=== PATIENT | female | born 1950 | race African-American/Black ===

== ENCOUNTER 2018-04-04 06:13 | Inpatient (IN) | payer OTHER ==
[2018-04-04] MEDS ORDERED: SODIUM CHLORIDE 1,361 ML IV ONE (06:30)
--- NOTE | 2018-04-04 06:31 | PDOC ---
Attending Attestation - Resident Resident Name: Lupillo Roberts - HPI HPI: 04/07/18 18:44 Pt presents to the ED after brought in by family for altered mental status. Patient was in her usual state of health until yesterday, when she began to become increasingly confused, initially wandering around naked and then becoming lethargic and less responsive. Daughter found her to be unresponsive this AM and called EMS. Found to be hypogylcemic to 29 by EMS. Given glucagon and D 10. Mental status improved on arrival--patient was oriented to person and place, and able to recognize her family members and to answer simple questions. Patient still sleeping most of the time, but easily arousable to loud voice. + hypoxia and rhonchorous lung sounds on exam. - Physicial Exam PE: 04/07/18 18:58 Agree with resident exam. PAtient is arousable to loud voice. + rhonchorous breath sounds. Hypoxic to 80s on room air, but not hypotensive. - Medical Decision Making 04/09/18 17:00 pt presents to the ED with altered mental status, hypoxia and hypoglycemia. Differential includes PNA, sepsis, intracranial lesion, metabolic derrangement. Will check labs and CT head, start IV hydration, check blood cx and lactate and admit for continued work up.
--- NOTE | 2018-04-04 06:35 | PDOC ---
History of Present Illness - General Chief Complaint: Altered Mental Status Stated Complaint: AMS Time Seen by Provider: 04/04/18 06:30 - History of Present Illness Initial Comments: 04/04/18 07:03 67F with pmh of HIV, asthma and chronic pain presents with family for altered mental status worsening over the past 2 days. She was found by family to behave increasingly erratically, walking naked in the leaving room, etc... Found by ems to be hypoxic, have fingerstick of 29, given 1g glucagon and 1L of D10, repeat fs of 89. 100% on NR, mid 80's on room air. Patient was originally unresponsive but now arousable to pain. Eventually woke Told family she may have taken a pill shes not supposed to take anymore amongst her current meds. Unknown CD4 level. Not on any diebetic medications. Hasn't eaten or drank anything today. Patient looks uncomfortable and diaphoretic 04/04/18 07:40 Past History - Past Medical History Allergies/Adverse Reactions: Allergies Allergy/AdvReac Type Severity Reaction Status Date / Time aspirin AdvReac Mild GI upset Verified 04/04/18 06:25 Asthma: Yes Cardiac Disorders: Yes - Surgical History Cardiac Surgery: Yes (CABG x 2 2009) - Suicide/Smoking/Psychosocial Hx Smoking History: Unknown if ever smoked Have you smoked in the past 12 months: No Number of Cigarettes Smoked Daily: 20 Information on smoking cessation initiated: No 'Breaking Loose' booklet given: 06/01/12 Hx Alcohol Use: No Drug/Substance Use Hx: No Substance Use Type: Alcohol, Cocaine Hx Substance Use Treatment: Yes Review of Systems - Review of Systems Able to Perform ROS?: No (ams) *Physical Exam - Vital Signs Last Vital Signs Temp Pulse Resp BP Pulse Ox 98.9 F 105 H 15 164/101 H 97 04/04/18 06:15 04/04/18 06:15 04/04/18 06:15 04/04/18 06:15 04/04/18 06:15 - Physical Exam General Appearance: Yes: Disheveled, Cachetic HEENT: positive: Other (miosis) Respiratory/Chest: positive: Lungs Clear, Rales, Rhonchi. negative: Chest Tender Vascular Pulses: Dorsalis-Pedis (R): 2+, Doralis-Pedis (L): 2+ Gastrointestinal/Abdominal: positive: Normal Bowel Sounds, Flat, Soft. negative : Tender Musculoskeletal: positive: Normal Inspection. negative: CVA Tenderness Extremity: positive: Normal Capillary Refill, Normal Inspection Integumentary: positive: Normal Color, Dry, Warm, Diaphoresis Neurologic: positive: Respond to painful stimul, Confused, Disoriented ED Treatment Course - LABORATORY CBC & Chemistry Diagram: 04/04/18 06:45 04/04/18 06:28 Medical Decision Making - Medical Decision Making 04/04/18 07:31 Hypoglycemia vs PNA vs Opiates overdose vs encephalitis vs seizure vs stroke Although the patient is afebrile her adventitious lung sounds may be an indication of pneumonia, possible aspiration given her altered state. In the context of diaphoresis and altered mental status and her potentially immunocompromised state we will order a full septic workup as well as ABG and CXR. In addition we will order a head CT to rule out intracranial processes, bleeds or ring enhancing lesions. If the patient continues to deteriorate we will consider doing an lumbar puncture to rule out encephalitis. In the meantime we will work on obtaining a full list of the patient's medications and what she could have potentially taken. We will also get frequent fingerstick test. Will treat dyspnea with duonebs. Patient signed out to Dr. Gill for continued care. 04/04/18 07:40 *DC/Admit/Observation/Transfer Diagnosis at time of Disposition: Delirium, Altered mental status - Discharge Dispostion Condition at time of disposition: Fair - Referrals - Patient Instructions - Post Discharge Activity
[2018-04-04] MEDS ORDERED: methylPREDNISolone NA SUCC 125 MG/2 ML VIAL IVPUSH ONE (06:50)
[2018-04-04] MEDS ORDERED: methylPREDNISolone NA SUCC 125 MG/2 ML VIAL ONE (06:57)
[2018-04-04] MEDS ORDERED: ALBUTEROL SO4 2.5/IPRATROPIUM 0.5 INH SOL 3 ML VIAL.NEB. NEB ONE (06:57)
[2018-04-04] MEDS: ALBUTEROL SO4 2.5/IPRATROPIUM 0.5 INH SOL 3 ML VIAL.NEB. NEB SCH ×5 (07:10→21:30)
[2018-04-04 07:12] LABS: ARTERIAL BLD GAS O2 SATURATION 97.7 % (90-98.9); CARBOXYHEMOGLOBIN 2.1 gm% (0.5-2.0)
[2018-04-04 07:23] LABS: BASO % 0.2 % (0-2.0); EOS % 0.2 % (0-4.5); HEMATOCRIT 41.5 % (32.4-45.2); HEMOGLOBIN 13.4 GM/dL (10.7-15.3); LYMPH % 6.8 % (8-40); MCH 31.5 pg (25.7-33.7); MCHC 32.3 g/dl (32.0-36.0); MEAN CELL VOLUME 97.6 fl (80-96); MEAN PLT VOLUME 7.5 fl (7.5-11.1); MONO % 12.7 % (3.8-10.2); NEUT % 80.1 % (42.8-82.8); PLATELET COUNT 244 K/MM3 (134-434); RBC 4.25 M/mm3 (3.60-5.2); RDW 14.2 % (11.6-15.6); WHITE BLOOD COUNT 18.6 K/mm3 (4.0-10.0)
[2018-04-04 07:24] LABS: ALLENS TEST POSITIVE
[2018-04-04 07:26] LABS: ARTERIAL BLOOD GAS PCO2 73.4 mmHg (35-45)
[2018-04-04 07:27] LABS: ARTERIAL BLOOD GAS pH 7.23 (7.35-7.45)
[2018-04-04 07:35] LABS: INR 2.53 (0.83-1.09); PROTHROMBIN TIME (PATIENT) 30.1 SEC (9.7-13.0)
[2018-04-04 07:38] LABS: ACTIVATED PTT 35.4 SECONDS (25.2-36.5)
[2018-04-04 07:59] LABS: ALBUMIN 3.9 g/dl (3.4-5.0); ALK PHOS 77 U/L (45-117); ANION GAP 15 MMOL/L (8-16); BILIRUBIN,TOTAL 3.3 mg/dL (0.2-1); BLOOD UREA NITROGEN 62 mg/dL (7-18); CALCIUM 8.8 mg/dL (8.5-10.1); CHLORIDE 95 mmol/L (98-107); CO2 28 mmol/L (21-32); CREATININE 3.8 mg/dL (0.55-1.3); GLUCOSE,RANDOM 114 mg/dL (74-106); POTASSIUM 5.7 mmol/L (3.5-5.1); SGOT/AST 221 U/L (15-37); SGPT/ALT 66 U/L (13-61); SODIUM 138 mmol/L (136-145); TOT PROT 7.1 g/dl (6.4-8.2)
[2018-04-04 08:10] LABS: URINE APPEARANCE SLCLOUDY; URINE BILIRUBIN NEGATIVE (<2.0 mg/dL); URINE GLUCOSE (UA) NEGATIVE (NEGATIVE); URINE KETONE NEGATIVE (NEGATIVE); URINE LEUK ESTERASE NEGATIVE (NEGATIVE); URINE NITRITE NEGATIVE (NEGATIVE); URINE PROTEIN 2+ (NEGATIVE); URINE UROBILINOGEN 4.0 E.U/dl mg/dL (0.2-1.0)
[2018-04-04 08:13] LABS: URINE COLOR DK YELLOW
[2018-04-04] MEDS ORDERED: PIPERACILLIN/TAZOB 3.375 GM 3.375 GM in DEXTROSE 5%-WATER - 50 ML IVPB ONE (08:17)
[2018-04-04] MEDS ORDERED: VANCOMYCIN 1 GM PREMIX - 1 GM/200 ML BAG IVPB ONE (08:17)
[2018-04-04] MEDS ORDERED: SODIUM CHLORIDE 0.9% 1000 ML INFUS.BAG IV ONE (08:19)
[2018-04-04] MEDS ORDERED: VANCOMYCIN 1 GRAM (PRE-DOCKED) 1,000 MG/250 ML BAG IVPB ONE (08:25)
[2018-04-04] MEDS ORDERED: PIPERACILLIN/TAZOB 3.375 GM 3.375 GM/50 ML BAG IVPB ONE (08:25)
[2018-04-04 08:27] LABS: EPI CELLS MODERATE /HPF (FEW); URINE BACTERIA RARE /hpf (NONE SEEN); URINE HYALINE CAST 157 /lpf; URINE MUCUS RARE
[2018-04-04 08:36] LABS: COCAINE, UR NEGATIVE ng/ml (CUTOFF=300); METHADONE, UR NEGATIVE ng/ml (CUTOFF=300); PHENCYCLIDINE,URINE NEGATIVE ng/ml (CUTOFF=25); URINE AMPHETAMINES NEGATIVE ng/ml (CUTOFF=500); URINE BARBITURATES NEGATIVE ng/ml (CUTOFF=200); URINE BENZODIAZEPINES NEGATIVE ng/ml (CUTOFF=200)
--- NOTE | 2018-04-04 08:41 | PDOC ---
*Physical Exam - Vital Signs Last Vital Signs Temp Pulse Resp BP Pulse Ox 98.6 F 105 H 15 164/101 H 97 04/04/18 06:30 04/04/18 06:15 04/04/18 06:15 04/04/18 06:15 04/04/18 06:15 - Physical Exam Comments: 04/04/18 08:31 I received sign out from Dr. Roberts ED Treatment Course - LABORATORY CBC & Chemistry Diagram: 04/06/18 05:30 04/06/18 06:00 - ADDITIONAL ORDERS Additional order review: Laboratory Results 04/04/18 04/04/18 04/04/18 07:55 07:55 07:05 PT with INR INR PTT (Actin FS) Anticoagulation Therapy No Result Required. Puncture Site No Result Required. ABG pH 7.23 L* ABG pCO2 at Pt Temp 73.4 H* ABG pO2 at Pt Temp 135.0 H ABG HCO3 29.3 H ABG O2 Sat (Measured) 97.7 ABG O2 Content 18.0 ABG Base Excess 0.0 Trevor Test Positive Carboxyhemoglobin 2.1 H Methemoglobin 0.6 O2 Delivery Device No Result Required. Oxygen Flow Rate No Result Required. Vent Mode No Result Required. Vent Rate No Result Required. Mechanical Rate No Result Required. Pressure Support Vent No Result Required. Sodium Potassium Chloride Carbon Dioxide Anion Gap BUN Creatinine Creat Clearance w eGFR POC Glucometer Random Glucose Lactic Acid Calcium Total Bilirubin AST ALT Alkaline Phosphatase Ammonia Creatine Kinase Creatine Kinase Index CK-MB (CK-2) Troponin I Total Protein Albumin Urine Color Dk yellow Urine Appearance Slcloudy Urine pH 5.0 Ur Specific Bradshaw 1.015 Urine Protein 2+ H Urine Glucose (UA) Negative Urine Ketones Negative Urine Blood 2+ H Urine Nitrite Negative Urine Bilirubin Negative Urine Urobilinogen 4.0 e.u/dl H Ur Leukocyte Esterase Negative Urine WBC (Auto) 5 Urine RBC (Auto) 2 Ur Epithelial Cells Moderate Urine Bacteria Rare Hyaline Casts 157 Urine Mucus Rare Stool Occult Blood Positive 04/04/18 04/04/18 04/04/18 06:45 06:45 06:45 PT with INR 30.10 H INR 2.53 H PTT (Actin FS) 35.4 Anticoagulation Therapy Puncture Site ABG pH ABG pCO2 at Pt Temp ABG pO2 at Pt Temp ABG HCO3 ABG O2 Sat (Measured) ABG O2 Content ABG Base Excess Trevor Test Carboxyhemoglobin Methemoglobin O2 Delivery Device Oxygen Flow Rate Vent Mode Vent Rate Mechanical Rate Pressure Support Vent Sodium Potassium Chloride Carbon Dioxide Anion Gap BUN Creatinine Creat Clearance w eGFR POC Glucometer Random Glucose Lactic Acid 6.2 H* Calcium Total Bilirubin AST ALT Alkaline Phosphatase Ammonia 48.10 H Creatine Kinase Creatine Kinase Index CK-MB (CK-2) Troponin I Total Protein Albumin Urine Color Urine Appearance Urine pH Ur Specific Bradshaw Urine Protein Urine Glucose (UA) Urine Ketones Urine Blood Urine Nitrite Urine Bilirubin Urine Urobilinogen Ur Leukocyte Esterase Urine WBC (Auto) Urine RBC (Auto) Ur Epithelial Cells Urine Bacteria Hyaline Casts Urine Mucus Stool Occult Blood 04/04/18 04/04/18 06:28 06:28 PT with INR INR PTT (Actin FS) Anticoagulation Therapy Puncture Site ABG pH ABG pCO2 at Pt Temp ABG pO2 at Pt Temp ABG HCO3 ABG O2 Sat (Measured) ABG O2 Content ABG Base Excess Trevor Test Carboxyhemoglobin Methemoglobin O2 Delivery Device Oxygen Flow Rate Vent Mode Vent Rate Mechanical Rate Pressure Support Vent Sodium 138 Potassium 5.7 H Chloride 95 L Carbon Dioxide 28 Anion Gap 15 BUN 62 H Creatinine 3.8 H Creat Clearance w eGFR 11.85 POC Glucometer 135.57180 Random Glucose 114 H Lactic Acid Calcium 8.8 Total Bilirubin 3.3 H AST 221 H ALT 66 H Alkaline Phosphatase 77 Ammonia Creatine Kinase 1260 H Creatine Kinase Index 1.1 CK-MB (CK-2) 14.1 H Troponin I 3.25 H* Total Protein 7.1 Albumin 3.9 Urine Color Urine Appearance Urine pH Ur Specific Bradshaw Urine Protein Urine Glucose (UA) Urine Ketones Urine Blood Urine Nitrite Urine Bilirubin Urine Urobilinogen Ur Leukocyte Esterase Urine WBC (Auto) Urine RBC (Auto) Ur Epithelial Cells Urine Bacteria Hyaline Casts Urine Mucus Stool Occult Blood 04/04/18 04/04/18 06:45 06:28 RBC 4.25 MCV 97.6 H MCHC 32.3 RDW 14.2 MPV 7.5 Neutrophils % 80.1 Lymphocytes % 6.8 L Monocytes % 12.7 H Eosinophils % 0.2 Basophils % 0.2 POC Glucometer 135.34908 - RADIOLOGY Radiology Studies Ordered: Category Date Time Status ABDOMEN & PELVIS CT W/O CONTR [CT] Stat CT Scan 04/04/18 08:[address] WITHOUT CONTRAST [CT] Stat CT Scan 04/04/18 08:29 Ordered ABDOMEN US -LIMITED [US] Stat Ultrasound 04/04/18 08:29 Ordered - Medications Given in the ED: ED Medications Discontinued Medications Generic Name Dose Route Start Last Admin Trade Name Musa PRN Reason Stop Dose Admin Albuterol/Ipratropium 1 amp 04/04/18 07:00 04/04/18 07:40 Duoneb - NEB 04/04/18 07:46 1 amp Q15M ALYSON Administration Sodium Chloride 1,361 mls @ 680.5 mls/hr 04/04/18 06:30 04/04/18 06:45 Normal Saline - 30 ml/kg infuse over 2 hr (1361 ml) 04/04/18 08:29 680.5 mls/hr IV Administration ONCE ONE Methylprednisolone Sodium Succinate 125 mg 04/04/18 06:50 04/04/18 07:00 Solu-Medrol - IVPUSH 04/04/18 06:51 125 mg ONCE ONE Administration Sodium Chloride 2,000 ml 04/04/18 08:19 04/04/18 08:24 Normal Saline - IV 04/04/18 08:20 2,000 ml ONCE ONE Administration Medical Decision Making - Medical Decision Making 04/04/18 08:58 67 yo F with hx of HIV, asthma, and chronic pain BIBA presenting with AMS for 2 days. Initial vitals: Initial Vital Signs Temp Pulse Resp BP Pulse Ox 98.9 F 105 H 15 164/101 H 97 04/04/18 06:15 04/04/18 06:15 04/04/18 06:15 04/04/18 06:15 04/04/18 06:15 Labs/Imaging: Laboratory Tests 04/04/18 04/04/18 04/04/18 06:28 06:28 06:45 WBC 18.6 H RBC 4.25 Hgb 13.4 Hct 41.5 MCV 97.6 H MCH 31.5 MCHC 32.3 RDW 14.2 Plt Count 244 MPV 7.5 Absolute Neuts (auto) 14.9 H Neutrophils % 80.1 Lymphocytes % 6.8 L Monocytes % 12.7 H Eosinophils % 0.2 Basophils % 0.2 Nucleated RBC % 1 H PT with INR INR PTT (Actin FS) Anticoagulation Therapy Puncture Site ABG pH ABG pCO2 at Pt Temp ABG pO2 at Pt Temp ABG HCO3 ABG O2 Sat (Measured) ABG O2 Content ABG Base Excess Trevor Test Carboxyhemoglobin Methemoglobin O2 Delivery Device Oxygen Flow Rate Vent Mode Vent Rate Mechanical Rate Pressure Support Vent Sodium 138 Potassium 5.7 H Chloride 95 L Carbon Dioxide 28 Anion Gap 15 BUN 62 H Creatinine 3.8 H Creat Clearance w eGFR 11.85 POC Glucometer 135.62450 Random Glucose 114 H Lactic Acid Calcium 8.8 Total Bilirubin 3.3 H AST 221 H ALT 66 H Alkaline Phosphatase 77 Ammonia Creatine Kinase 1260 H Creatine Kinase Index 1.1 CK-MB (CK-2) 14.1 H Troponin I 3.25 H* Total Protein 7.1 Albumin 3.9 Urine Color Urine Appearance Urine pH Ur Specific Bradshaw Urine Protein Urine Glucose (UA) Urine Ketones Urine Blood Urine Nitrite Urine Bilirubin Urine Urobilinogen Ur Leukocyte Esterase Urine WBC (Auto) Urine RBC (Auto) Ur Epithelial Cells Urine Bacteria Hyaline Casts Urine Mucus Stool Occult Blood Methadone Screen Barbiturate Screen Phencyclidine Screen Ur Amphetamines Screen MDMA (Ecstasy) Screen Benzodiazepines Screen Cocaine Screen U Marijuana (THC) Screen Influenza A (Rapid) Influenza B (Rapid) Blood Type Antibody Screen 04/04/18 04/04/18 04/04/18 06:45 06:45 06:45 WBC RBC Hgb Hct MCV MCH MCHC RDW Plt Count MPV Absolute Neuts (auto) Neutrophils % Lymphocytes % Monocytes % Eosinophils % Basophils % Nucleated RBC % PT with INR 30.10 H INR 2.53 H PTT (Actin FS) 35.4 Anticoagulation Therapy Puncture Site ABG pH ABG pCO2 at Pt Temp ABG pO2 at Pt Temp ABG HCO3 ABG O2 Sat (Measured) ABG O2 Content ABG Base Excess Trevor Test Carboxyhemoglobin Methemoglobin O2 Delivery Device Oxygen Flow Rate Vent Mode Vent Rate Mechanical Rate Pressure Support Vent Sodium Potassium Chloride Carbon Dioxide Anion Gap BUN Creatinine Creat Clearance w eGFR POC Glucometer Random Glucose Lactic Acid Calcium Total Bilirubin AST ALT Alkaline Phosphatase Ammonia 48.10 H Creatine Kinase Creatine Kinase Index CK-MB (CK-2) Troponin I Total Protein Albumin Urine Color Urine Appearance Urine pH Ur Specific Bradshaw Urine Protein Urine Glucose (UA) Urine Ketones Urine Blood Urine Nitrite Urine Bilirubin Urine Urobilinogen Ur Leukocyte Esterase Urine WBC (Auto) Urine RBC (Auto) Ur Epithelial Cells Urine Bacteria Hyaline Casts Urine Mucus Stool Occult Blood Methadone Screen Barbiturate Screen Phencyclidine Screen Ur Amphetamines Screen MDMA (Ecstasy) Screen Benzodiazepines Screen Cocaine Screen U Marijuana (THC) Screen Influenza A (Rapid) Influenza B (Rapid) Blood Type O POSITIVE Antibody Screen Negative 04/04/18 04/04/18 04/04/18 06:45 07:05 07:55 WBC RBC Hgb Hct MCV MCH MCHC RDW Plt Count MPV Absolute Neuts (auto) Neutrophils % Lymphocytes % Monocytes % Eosinophils % Basophils % Nucleated RBC % PT with INR INR PTT (Actin FS) Anticoagulation Therapy No Result Required. Puncture Site No Result Required. ABG pH 7.23 L* ABG pCO2 at Pt Temp 73.4 H* ABG pO2 at Pt Temp 135.0 H ABG HCO3 29.3 H ABG O2 Sat (Measured) 97.7 ABG O2 Content 18.0 ABG Base Excess 0.0 Trevor Test Positive Carboxyhemoglobin 2.1 H Methemoglobin 0.6 O2 Delivery Device No Result Required. Oxygen Flow Rate No Result Required. Vent Mode No Result Required. Vent Rate No Result Required. Mechanical Rate No Result Required. Pressure Support Vent No Result Required. Sodium Potassium Chloride Carbon Dioxide Anion Gap BUN Creatinine Creat Clearance w eGFR POC Glucometer Random Glucose Lactic Acid 6.2 H* Calcium Total Bilirubin AST ALT Alkaline Phosphatase Ammonia Creatine Kinase Creatine Kinase Index CK-MB (CK-2) Troponin I Total Protein Albumin Urine Color Dk yellow Urine Appearance Slcloudy Urine pH 5.0 Ur Specific Bradshaw 1.015 Urine Protein 2+ H Urine Glucose (UA) Negative Urine Ketones Negative Urine Blood 2+ H Urine Nitrite Negative Urine Bilirubin Negative Urine Urobilinogen 4.0 e.u/dl H Ur Leukocyte Esterase Negative Urine WBC (Auto) 5 Urine RBC (Auto) 2 Ur Epithelial Cells Moderate Urine Bacteria Rare Hyaline Casts 157 Urine Mucus Rare Stool Occult Blood Methadone Screen Barbiturate Screen Phencyclidine Screen Ur Amphetamines Screen MDMA (Ecstasy) Screen Benzodiazepines Screen Cocaine Screen U Marijuana (THC) Screen Influenza A (Rapid) Influenza B (Rapid) Blood Type Antibody Screen 04/04/18 04/04/18 04/04/18 07:55 07:55 08:06 WBC RBC Hgb Hct MCV MCH MCHC RDW Plt Count MPV Absolute Neuts (auto) Neutrophils % Lymphocytes % Monocytes % Eosinophils % Basophils % Nucleated RBC % PT with INR INR PTT (Actin FS) Anticoagulation Therapy Puncture Site ABG pH ABG pCO2 at Pt Temp ABG pO2 at Pt Temp ABG HCO3 ABG O2 Sat (Measured) ABG O2 Content ABG Base Excess Trevor Test Carboxyhemoglobin Methemoglobin O2 Delivery Device Oxygen Flow Rate Vent Mode Vent Rate Mechanical Rate Pressure Support Vent Sodium Potassium Chloride Carbon Dioxide Anion Gap BUN Creatinine Creat Clearance w eGFR POC Glucometer 164.21968 Random Glucose Lactic Acid Calcium Total Bilirubin AST ALT Alkaline Phosphatase Ammonia Creatine Kinase Creatine Kinase Index CK-MB (CK-2) Troponin I Total Protein Albumin Urine Color Urine Appearance Urine pH Ur Specific Bradshaw Urine Protein Urine Glucose (UA) Urine Ketones Urine Blood Urine Nitrite Urine Bilirubin Urine Urobilinogen Ur Leukocyte Esterase Urine WBC (Auto) Urine RBC (Auto) Ur Epithelial Cells Urine Bacteria Hyaline Casts Urine Mucus Stool Occult Blood Positive Methadone Screen Negative Barbiturate Screen Negative Phencyclidine Screen Negative Ur Amphetamines Screen Negative MDMA (Ecstasy) Screen Negative Benzodiazepines Screen Negative Cocaine Screen Negative U Marijuana (THC) Screen Negative Influenza A (Rapid) Influenza B (Rapid) Blood Type Antibody Screen 04/04/18 08:15 WBC RBC Hgb Hct MCV MCH MCHC RDW Plt Count MPV Absolute Neuts (auto) Neutrophils % Lymphocytes % Monocytes % Eosinophils % Basophils % Nucleated RBC % PT with INR INR PTT (Actin FS) Anticoagulation Therapy Puncture Site ABG pH ABG pCO2 at Pt Temp ABG pO2 at Pt Temp ABG HCO3 ABG O2 Sat (Measured) ABG O2 Content ABG Base Excess Trevor Test Carboxyhemoglobin Methemoglobin O2 Delivery Device Oxygen Flow Rate Vent Mode Vent Rate Mechanical Rate Pressure Support Vent Sodium Potassium Chloride Carbon Dioxide Anion Gap BUN Creatinine Creat Clearance w eGFR POC Glucometer Random Glucose Lactic Acid Calcium Total Bilirubin AST ALT Alkaline Phosphatase Ammonia Creatine Kinase Creatine Kinase Index CK-MB (CK-2) Troponin I Total Protein Albumin Urine Color Urine Appearance Urine pH Ur Specific Bradshaw Urine Protein Urine Glucose (UA) Urine Ketones Urine Blood Urine Nitrite Urine Bilirubin Urine Urobilinogen Ur Leukocyte Esterase Urine WBC (Auto) Urine RBC (Auto) Ur Epithelial Cells Urine Bacteria Hyaline Casts Urine Mucus Stool Occult Blood Methadone Screen Barbiturate Screen Phencyclidine Screen Ur Amphetamines Screen MDMA (Ecstasy) Screen Benzodiazepines Screen Cocaine Screen U Marijuana (THC) Screen Influenza A (Rapid) Negative Influenza B (Rapid) Negative Blood Type Antibody Screen Patient was received as a sign out. Labs came back after sign out and are stipulated above. These results were reviewed with the admitting physician (Dr. Kirk) and ICU team. The patient will be admitted to the ICU. We ordered vanc/ zosyn treating for sepsis. We ordered CT abd/pelvis and chest wo con. Dispo: Admit *DC/Admit/Observation/Transfer Diagnosis at time of Disposition: Delirium Altered mental status Qualifiers: Altered mental status type: disorientation Qualified Code(s): R41.0 - Disorientation, unspecified - Discharge Dispostion Condition at time of disposition: Fair - Referrals - Patient Instructions - Post Discharge Activity
[2018-04-04 09:17] LABS: OPIATES, URI POSITIVE ng/ml (CUTOFF=300)
[2018-04-04] MEDS ORDERED: LIDOCAINE HCL 2% (20ML MULTI-DOSE VIAL) NR ONE (10:35)
--- NOTE | 2018-04-04 10:53 | EKG ---
Test Reason : Blood Pressure : / mmHG Vent. Rate : 109 BPM Atrial Rate : 109 BPM P-R Int : 196 ms QRS Dur : 100 ms QT Int : 354 ms P-R-T Axes : 074 -14 220 degrees QTc Int : 476 ms SINUS TACHYCARDIA POSSIBLE LEFT ATRIAL ENLARGEMENT SEPTAL INFARCT , AGE UNDETERMINED ABNORMAL ECG WHEN COMPARED WITH ECG OF 03-AUG-2007 12:55, VENT. RATE HAS INCREASED T WAVE VARIATION Confirmed by SEAN JARRELL, FERNANDA ([id number]) on 04/04/2018 10:53:10 AM Referred By: Confirmed By:FERNANDA ESTRADA MD
--- NOTE | 2018-04-04 11:41 | CON.CARD ---
Consult Consult Specialty:: Cardiology Referred by:: Marquis Kirk MD Reason for Consultation:: Demand ischemia - History of Present Illness Chief Complaint: Altered mental status History of Present Illness: 67F with pmh of HIV, asthma and chronic pain presents with family for altered mental status worsening over the past 2 days with erratic behavior, walking naked in the leaving room, found by ems to be hypoxic, have fingerstick of 29, given 1g glucagon and 1L of D10, repeat fs of 89. 100% on NR, mid 80's on room air. Patient was originally unresponsive but now arousable to pain. ABG shows acute hypercapneic, hypoxemic respiratory failure, told family she may have taken a pill shes not supposed to take anymore amongst her current meds. Unknown CD4 level or compliance, placed on bipap. - History Source History Provided By: Medical Record Limitations to Obtaining History: Clinical Condition - Alcohol/Substance Use Hx Alcohol Use: No - Smoking History Smoking history: Unknown if ever smoked Have you smoked in the past 12 months: No Aproximately how many cigarettes per day: 20 Home Medications - Allergies Allergies/Adverse Reactions: Allergies Allergy/AdvReac Type Severity Reaction Status Date / Time aspirin AdvReac Mild GI upset Verified 04/04/18 06:25 - Home Medications Home Medications: Ambulatory Orders Gabapentin [Neurontin -] 800 mg PO Q8H 04/04/18 Morphine *Sr* [Ms Contin -] 30 mg PO Q8H 04/04/18 Ranolazine [Ranexa -] 500 mg PO BID 04/04/18 Review of Systems - Review of Systems Constitutional: reports: Lethargy Neurological: reports: Confusion Vital Signs: Vital Signs Temperature 98.6 F 04/04/18 06:30 Pulse Rate 99 H 04/04/18 11:39 Respiratory Rate 14 04/04/18 11:39 Blood Pressure 137/80 04/04/18 11:39 O2 Sat by Pulse Oximetry (%) 99 04/04/18 11:39 Constitutional: Yes: No Distress, Calm Neck: Yes: Supple Respiratory: Yes: Regular, Diminished, On BiPap Gastrointestinal: Yes: Soft, Hypoactive Bowel Sounds Cardiovascular: Yes: Regular Rate and Rhythm JVD: No Carotid Bruit: No Heart Sounds: Yes: S1, S2 Edema: No - Other Data Labs, Other Data: CBC, BMP 04/04/18 06:28 INR, PTT INR 2.53 (0.83-1.09) H 04/04/18 06:45 Troponin, BNP 04/04/18 06:28 Troponin I 3.25 H* Troponin, BNP 04/04/18 06:28 Troponin I 3.25 H* ST @ 109 LAE IVCD with anterolateral TWI Imaging - Results Chest X-ray: Report Reviewed (NaD) Cat Scan: Report Reviewed (HCT: Negative Chest CT: RLL PNA) Ultrasound: Report Reviewed (Cholethiasis, right medical renal dz, trace ascites , fatty liver) Problem List - Problems (1) Acute kidney injury Code(s): N17.9 - ACUTE KIDNEY FAILURE, UNSPECIFIED (2) Demand ischemia Code(s): I24.8 - OTHER FORMS OF ACUTE ISCHEMIC HEART DISEASE (3) Acute hypercapnic respiratory failure Code(s): J96.02 - ACUTE RESPIRATORY FAILURE WITH HYPERCAPNIA (4) Altered mental status Code(s): R41.82 - ALTERED MENTAL STATUS, UNSPECIFIED Qualifiers: Altered mental status type: disorientation Qualified Code(s): R41.0 - Disorientation, unspecified (6) Aspiration pneumonia Code(s): J69.0 - PNEUMONITIS DUE TO INHALATION OF FOOD AND VOMIT Qualifiers: Aspiration pneumonia type: unspecified Laterality: right Lung location: lower lobe of lung Qualified Code(s): J69.0 - Pneumonitis due to inhalation of food and vomit (7) Toxic metabolic encephalopathy Code(s): G92 - TOXIC ENCEPHALOPATHY Assessment/Plan 1. Altered mental status - toxic metabolic encephelopathy 2. Acute hypercapneic/hypoxemix respiratory failure, opiates on tox screen 3. RLL PNA, possible aspiration 4. HIV unknown compliance on HAART 5. Acute kidney injury with hyperkalemia 6. Microalbuminuria P:1. BD, empiric abx, O2 and bipap as needed, IVF with monitor renal recovery and electrolytes 2. Trend trops to document peak 3. Echo to assess ventricular and valve fxn, review old records regarding reason for Ranexa 4. Thank you for consultative opportunity
--- NOTE | 2018-04-04 11:47 | CON.ID ---
Consult Consult Specialty:: infectious diseases Referred by:: Reason for Consultation:: ams,hiv,resp failure - History of Present Illness Chief Complaint: ams History of Present Illness: 67F with pmh of HIV, asthma and chronic pain presents with family for altered mental status worsening over the past 2 days with erratic behavior, walking naked in the leaving room, found by ems to be hypoxic, have fingerstick of 29, given 1g glucagon and 1L of D10, repeat fs of 89. 100% on NR, mid 80's on room air. Patient was originally unresponsive but now arousable to pain. ABG shows acute hypercapneic, hypoxemic respiratory failure, told family she may have taken a pill shes not supposed to take anymore amongst her current meds. Unknown CD4 level or compliance, placed on bipap. patients daughter in the room who has given the history currently patient slightly better but still with ams - History Source History Provided By: Family Member, Medical Record Limitations to Obtaining History: Clinical Condition - Alcohol/Substance Use Hx Alcohol Use: No - Smoking History Smoking history: Unknown if ever smoked Have you smoked in the past 12 months: No Aproximately how many cigarettes per day: 20 Home Medications - Allergies Allergies/Adverse Reactions: Allergies Allergy/AdvReac Type Severity Reaction Status Date / Time aspirin AdvReac Mild GI upset Verified 04/04/18 06:25 - Home Medications Home Medications: Ambulatory Orders Gabapentin [Neurontin -] 800 mg PO Q8H 04/04/18 Morphine *Sr* [Ms Contin -] 30 mg PO Q8H 04/04/18 Ranolazine [Ranexa -] 500 mg PO BID 04/04/18 Abacavir/Dolutegravir/Lamivudi [Triumeq Tablet] 1 each PO DAILY 04/05/18 Albuterol Sulfate Inhaler - [Ventolin Hfa Inhaler -] 2 inh PO DAILY 04/05/18 Alendronate Sodium/Vitamin D3 [Fosamax Plus D 70 mg-5,600 Iu vIT d] 1 each PO Q7D 04/05/18 Calcium Carbonate/Vitamin D3 [Calcium 500-Vit D3 200 Caplet] 1 tab PO DAILY Clopidogrel Bisulfate [Plavix] 75 mg PO DAILY 04/05/18 Escitalopram Oxalate [Lexapro -] 10 mg PO DAILY 04/05/18 Fluticasone/Salmeterol [Advair Hfa 230-21 Mcg Inhaler] 2 puff IH BID 04/05/18 Multivitamin [One Daily] 1 each PO DAILY 04/05/18 Nicotine [Nicotrol Ns] 1 dose IH DAILY PRN 04/05/18 Pantoprazole Sodium [Protonix -] 20 mg PO DAILY 04/05/18 RX: Aspirin Coated [Ecotrin -] 81 mg PO DAILY 04/05/18 RX: Gabapentin 800 mg PO TID 04/05/18 RX: Morphine Sulfate 30 mg PO Q8H PRN 04/05/18 RX: Simvastatin 10 mg PO DAILY 04/05/18 Review of Systems Unable to obtain ROS, reason: unable to obtain Physical Exam Vital Signs: Vital Signs Temperature 98.6 F 04/04/18 06:30 Pulse Rate 99 H 04/04/18 11:39 Respiratory Rate 14 04/04/18 11:39 Blood Pressure 137/80 04/04/18 11:39 O2 Sat by Pulse Oximetry (%) 99 04/04/18 11:39 Constitutional: Yes: Other Cardiovascular: Yes: Regular Rate and Rhythm Respiratory: Yes: On BiPap, Poor Air Entry Gastrointestinal: Yes: Normal Bowel Sounds, Soft Musculoskeletal: Yes: WNL Extremities: Yes: WNL Neurological: Yes: Other (ams) Psychiatric: Yes: Other Labs: CBC, BMP 04/04/18 06:28 Imaging - Results Chest X-ray: Report Reviewed, Image Reviewed Cat Scan: Report Reviewed, Image Reviewed Ultrasound: Report Reviewed, Image Reviewed Assessment/Plan Problem List - Problems (1) Acute kidney injury Code(s): N17.9 - ACUTE KIDNEY FAILURE, UNSPECIFIED (2) Demand ischemia Code(s): I24.8 - OTHER FORMS OF ACUTE ISCHEMIC HEART DISEASE (3) Acute hypercapnic respiratory failure Code(s): J96.02 - ACUTE RESPIRATORY FAILURE WITH HYPERCAPNIA (4) Altered mental status Code(s): R41.82 - ALTERED MENTAL STATUS, UNSPECIFIED Qualifiers: Altered mental status type: disorientation Qualified Code(s): R41.0 - Disorientation, unspecified (6) Aspiration pneumonia Code(s): J69.0 - PNEUMONITIS DUE TO INHALATION OF FOOD AND VOMIT Qualifiers: Aspiration pneumonia type: unspecified Laterality: right Lung location: lower lobe of lung Qualified Code(s): J69.0 - Pneumonitis due to inhalation of food and vomit (7) Toxic metabolic encephalopathy Code(s): G92 - TOXIC ENCEPHALOPATHY Assessment/Plan 1. Altered mental status - toxic metabolic encephelopathy 2. Acute hypercapneic/hypoxemix respiratory failure, opiates on tox screen 3. RLL PNA, possible aspiration 4. HIV unknown compliance on HAART 5. Acute kidney injury with hyperkalemia 6. Microalbuminuria will start patient on broad spectrum abx continue resp support icu mgmt close watch await for all work up discussed wiht daughter in detail aspiration precautions rest as per icu/primary team cc 50 min
[2018-04-04 14:30] LABS: LDH 842 U/L (84-246)
--- NOTE | 2018-04-04 15:06 | CONSULT ---
Consultation: REQUESTING PROVIDER: CONSULT REQUEST: We have been asked to medically evaluate this patient for sepsis 2/2 pneumonia with AMS. HISTORY OF PRESENT ILLNESS: 67F w/ pmhx of HIV (currently on HIV meds), asthma, chronic pain, HTN, CABG x3 stents, anemia, COPD, uterine cx presented to the ED with worsening altered mental status over the past 2 days. Per daughter at 4am this morning, pt was found in her bed, rigid, with both legs flexed, body shaking, and mouth filled with white secretions. EMS was called in which the pt was found to have a fingerstick glucose of 29 after which she was subsequently given 1g of Glucagon and 1L of D10 in the ambulance. Repeat fasting sugar was 89 after treatment. She was put on nonrebreather with sats at 100%. In the ED, pt was seen diaphoretic, but alert and oriented according to daughter, which was improved mental status prior to arrival. Per daughter, pt's last meal was Wednesday evening. Denies taking any diabetic meds. At baseline, pt lives alone at home in [place] and performs ADLs independently. She does have a [employer] who is present for several hours in the morning and afternoon. Pt is being monitored in the ICU for acute hypoxic respiratory failure with AMS. ED course: HR 103, WBC 18.6, K 5.7, Lactate 6.2 > 2.5, trops 3.25 Zosyn 2.25gm given. Lumbar punctures attempted multiple times in the ED, but unsuccessfully. Per report, tap will need to be done by IR. BCx, UCx ordered. Imaging studies done: CXR showed cardiomegaly; no evidence of CHF, pulmonary infiltrates, PTX, or large pleural effusion. Head CT showed no evidence of acute IC hemorrhage, edema, midline shift, mass effect, or skull fracture. No CT evidence of acute territorial infarction. Chronic R sphenoid sinus disease. CTAP/CT chest: Limited Extensive chronic lung dz w/ possible acute consolidation within the R lower lobe; Cardiomegaly, b/l nephrolithiasis w/o evidence of obstructive uropathy. Abd U/S: Trace ascites, and suspected fatty infiltration of the liver; cholelithiasis. Somewhat echogenic R kidney suspicious for medical renal dz. ECHO: LV systolic fxn is low normal. EF 50-55%. RV mildly dilated, RA mild to mod dilated, mild mitral annular calcification, mild MR, mod to severe TR, PA systolic pressure is at least 45 mmHg assuming RA pressure of 3 mmHg. Mild aortic sclerosis. No AR is present. No pericardial effusion. 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 PHYSICAL EXAMINATION Vital Signs - 24 hr 04/04/18 04/04/18 04/04/18 06:15 06:30 09:30 Temperature 98.9 F 98.6 F Pulse Rate 105 H Pulse Rate [ 56 L Apical] Respiratory 15 14 Rate Blood Pressure 164/101 H Blood Pressure 147/92 [Right Arm] O2 Sat by Pulse 97 98 Oximetry (%) 04/04/18 04/04/18 04/04/18 10:24 10:29 11:39 Temperature Pulse Rate 103 H 102 H Pulse Rate [ 103 H 99 H Apical] Respiratory 13 14 Rate Blood Pressure Blood Pressure 145/91 137/80 [Right Arm] O2 Sat by Pulse 100 100 99 Oximetry (%) 04/04/18 12:15 Temperature 99.5 F Pulse Rate Pulse Rate [ Apical] Respiratory Rate Blood Pressure Blood Pressure [Right Arm] O2 Sat by Pulse Oximetry (%) GENERAL: Lethargic. On nonrebreather. Alert and oriented to name. Closes eyes and does not respond while being questioned, although arousable to voice. HEENT: Normal with no signs of trauma. KEHINDE. Unable to assess EOM. Dry mucus membranes. NECK: Supple. LUNGS: Diminished breath sounds b/l. Symmetric chest rise. HEART: RRR. Normal S1, S2. No murmurs noted. ABDOMEN: Soft, NT/ND. +BS in all 4Qs. MUSCULOSKELETAL: No peripheral edema noted. NEUROLOGICAL: Responds to commands (opens eyes, squeezes fingers, plantarflex and dorsiflexes feet) SKIN: surgical scar in inner thigh of R leg. Laboratory Results - last 24 hr 04/04/18 04/04/18 04/04/18 06:28 06:28 06:45 WBC 18.6 H RBC 4.25 Hgb 13.4 Hct 41.5 MCV 97.6 H MCH 31.5 MCHC 32.3 RDW 14.2 Plt Count 244 MPV 7.5 Absolute Neuts (auto) 14.9 H Neutrophils % 80.1 Lymphocytes % 6.8 L Monocytes % 12.7 H Eosinophils % 0.2 Basophils % 0.2 Nucleated RBC % 1 H PT with INR INR PTT (Actin FS) Anticoagulation Therapy Puncture Site ABG pH ABG pCO2 at Pt Temp ABG pO2 at Pt Temp ABG HCO3 ABG O2 Sat (Measured) ABG O2 Content ABG Base Excess Trevor Test Carboxyhemoglobin Methemoglobin O2 Delivery Device Oxygen Flow Rate Vent Mode Vent Rate Mechanical Rate Pressure Support Vent Sodium 138 Potassium 5.7 H Chloride 95 L Carbon Dioxide 28 Anion Gap 15 BUN 62 H Creatinine 3.8 H Creat Clearance w eGFR 11.85 POC Glucometer 135.66853 Random Glucose 114 H Lactic Acid Calcium 8.8 Total Bilirubin 3.3 H AST 221 H ALT 66 H Alkaline Phosphatase 77 Ammonia LD Total Creatine Kinase 1260 H Creatine Kinase Index 1.1 CK-MB (CK-2) 14.1 H Troponin I 3.25 H* Total Protein 7.1 Albumin 3.9 Urine Color Urine Appearance Urine pH Ur Specific [place] Urine Protein Urine Glucose (UA) Urine Ketones Urine Blood Urine Nitrite Urine Bilirubin Urine Urobilinogen Ur Leukocyte Esterase Urine WBC (Auto) Urine RBC (Auto) Ur Epithelial Cells Urine Bacteria Hyaline Casts Urine Mucus Stool Occult Blood Salicylates 1.7 L Opiates Screen Methadone Screen Acetaminophen < 2.0 L Barbiturate Screen Phencyclidine Screen Ur Amphetamines Screen MDMA (Ecstasy) Screen Benzodiazepines Screen Cocaine Screen U Marijuana (THC) Screen Alcohol, Quantitative Influenza A (Rapid) Influenza B (Rapid) Blood Type Antibody Screen 04/04/18 04/04/18 04/04/18 06:45 06:45 06:45 WBC RBC Hgb Hct MCV MCH MCHC RDW Plt Count MPV Absolute Neuts (auto) Neutrophils % Lymphocytes % Monocytes % Eosinophils % Basophils % Nucleated RBC % PT with INR 30.10 H INR 2.53 H PTT (Actin FS) 35.4 Anticoagulation Therapy Puncture Site ABG pH ABG pCO2 at Pt Temp ABG pO2 at Pt Temp ABG HCO3 ABG O2 Sat (Measured) ABG O2 Content ABG Base Excess Trevor Test Carboxyhemoglobin Methemoglobin O2 Delivery Device Oxygen Flow Rate Vent Mode Vent Rate Mechanical Rate Pressure Support Vent Sodium Potassium Chloride Carbon Dioxide Anion Gap BUN Creatinine Creat Clearance w eGFR POC Glucometer Random Glucose Lactic Acid Calcium Total Bilirubin AST ALT Alkaline Phosphatase Ammonia 48.10 H LD Total Creatine Kinase Creatine Kinase Index CK-MB (CK-2) Troponin I Total Protein Albumin Urine Color Urine Appearance Urine pH Ur Specific [place] Urine Protein Urine Glucose (UA) Urine Ketones Urine Blood Urine Nitrite Urine Bilirubin Urine Urobilinogen Ur Leukocyte Esterase Urine WBC (Auto) Urine RBC (Auto) Ur Epithelial Cells Urine Bacteria Hyaline Casts Urine Mucus Stool Occult Blood Salicylates Opiates Screen Methadone Screen Acetaminophen Barbiturate Screen Phencyclidine Screen Ur Amphetamines Screen MDMA (Ecstasy) Screen Benzodiazepines Screen Cocaine Screen U Marijuana (THC) Screen Alcohol, Quantitative Influenza A (Rapid) Influenza B (Rapid) Blood Type O POSITIVE Antibody Screen Negative 04/04/18 04/04/18 04/04/18 06:45 07:05 07:55 WBC RBC Hgb Hct MCV MCH MCHC RDW Plt Count MPV Absolute Neuts (auto) Neutrophils % Lymphocytes % Monocytes % Eosinophils % Basophils % Nucleated RBC % PT with INR INR PTT (Actin FS) Anticoagulation Therapy No Result Required. Puncture Site No Result Required. ABG pH 7.23 L* ABG pCO2 at Pt Temp 73.4 H* ABG pO2 at Pt Temp 135.0 H ABG HCO3 29.3 H ABG O2 Sat (Measured) 97.7 ABG O2 Content 18.0 ABG Base Excess 0.0 Trevor Test Positive Carboxyhemoglobin 2.1 H Methemoglobin 0.6 O2 Delivery Device No Result Required. Oxygen Flow Rate No Result Required. Vent Mode No Result Required. Vent Rate No Result Required. Mechanical Rate No Result Required. Pressure Support Vent No Result Required. Sodium Potassium Chloride Carbon Dioxide Anion Gap BUN Creatinine Creat Clearance w eGFR POC Glucometer Random Glucose Lactic Acid 6.2 H* Calcium Total Bilirubin AST ALT Alkaline Phosphatase Ammonia LD Total Creatine Kinase Creatine Kinase Index CK-MB (CK-2) Troponin I Total Protein Albumin Urine Color Dk yellow Urine Appearance Slcloudy Urine pH 5.0 Ur Specific [place] 1.015 Urine Protein 2+ H Urine Glucose (UA) Negative Urine Ketones Negative Urine Blood 2+ H Urine Nitrite Negative Urine Bilirubin Negative Urine Urobilinogen 4.0 e.u/dl H Ur Leukocyte Esterase Negative Urine WBC (Auto) 5 Urine RBC (Auto) 2 Ur Epithelial Cells Moderate Urine Bacteria Rare Hyaline Casts 157 Urine Mucus Rare Stool Occult Blood Salicylates Opiates Screen Methadone Screen Acetaminophen Barbiturate Screen Phencyclidine Screen Ur Amphetamines Screen MDMA (Ecstasy) Screen Benzodiazepines Screen Cocaine Screen U Marijuana (THC) Screen Alcohol, Quantitative Influenza A (Rapid) Influenza B (Rapid) Blood Type Antibody Screen 04/04/18 04/04/18 04/04/18 07:55 07:55 08:06 WBC RBC Hgb Hct MCV MCH MCHC RDW Plt Count MPV Absolute Neuts (auto) Neutrophils % Lymphocytes % Monocytes % Eosinophils % Basophils % Nucleated RBC % PT with INR INR PTT (Actin FS) Anticoagulation Therapy Puncture Site ABG pH ABG pCO2 at Pt Temp ABG pO2 at Pt Temp ABG HCO3 ABG O2 Sat (Measured) ABG O2 Content ABG Base Excess Trevor Test Carboxyhemoglobin Methemoglobin O2 Delivery Device Oxygen Flow Rate Vent Mode Vent Rate Mechanical Rate Pressure Support Vent Sodium Potassium Chloride Carbon Dioxide Anion Gap BUN Creatinine Creat Clearance w eGFR POC Glucometer 164.84343 Random Glucose Lactic Acid Calcium Total Bilirubin AST ALT Alkaline Phosphatase Ammonia LD Total Creatine Kinase Creatine Kinase Index CK-MB (CK-2) Troponin I Total Protein Albumin Urine Color Urine Appearance Urine pH Ur Specific [place] Urine Protein Urine Glucose (UA) Urine Ketones Urine Blood Urine Nitrite Urine Bilirubin Urine Urobilinogen Ur Leukocyte Esterase Urine WBC (Auto) Urine RBC (Auto) Ur Epithelial Cells Urine Bacteria Hyaline Casts Urine Mucus Stool Occult Blood Positive Salicylates Opiates Screen Positive A* Methadone Screen Negative Acetaminophen Barbiturate Screen Negative Phencyclidine Screen Negative Ur Amphetamines Screen Negative MDMA (Ecstasy) Screen Negative Benzodiazepines Screen Negative Cocaine Screen Negative U Marijuana (THC) Screen Negative Alcohol, Quantitative Influenza A (Rapid) Influenza B (Rapid) Blood Type Antibody Screen 04/04/18 04/04/18 04/04/18 08:15 08:48 13:20 WBC RBC Hgb Hct MCV MCH MCHC RDW Plt Count MPV Absolute Neuts (auto) Neutrophils % Lymphocytes % Monocytes % Eosinophils % Basophils % Nucleated RBC % PT with INR INR PTT (Actin FS) Anticoagulation Therapy Puncture Site ABG pH ABG pCO2 at Pt Temp ABG pO2 at Pt Temp ABG HCO3 ABG O2 Sat (Measured) ABG O2 Content ABG Base Excess Trevor Test Carboxyhemoglobin Methemoglobin O2 Delivery Device Oxygen Flow Rate Vent Mode Vent Rate Mechanical Rate Pressure Support Vent Sodium Potassium Chloride Carbon Dioxide Anion Gap BUN Creatinine Creat Clearance w eGFR POC Glucometer Random Glucose Lactic Acid 2.5 H* Calcium Total Bilirubin AST ALT Alkaline Phosphatase Ammonia LD Total Cancelled Creatine Kinase Creatine Kinase Index CK-MB (CK-2) Troponin I Total Protein Albumin Urine Color Urine Appearance Urine pH Ur Specific [place] Urine Protein Urine Glucose (UA) Urine Ketones Urine Blood Urine Nitrite Urine Bilirubin Urine Urobilinogen Ur Leukocyte Esterase Urine WBC (Auto) Urine RBC (Auto) Ur Epithelial Cells Urine Bacteria Hyaline Casts Urine Mucus Stool Occult Blood Salicylates Opiates Screen Methadone Screen Acetaminophen Barbiturate Screen Phencyclidine Screen Ur Amphetamines Screen MDMA (Ecstasy) Screen Benzodiazepines Screen Cocaine Screen U Marijuana (THC) Screen Alcohol, Quantitative Influenza A (Rapid) Negative Influenza B (Rapid) Negative Blood Type Antibody Screen 04/04/18 13:20 WBC RBC Hgb Hct MCV MCH MCHC RDW Plt Count MPV Absolute Neuts (auto) Neutrophils % Lymphocytes % Monocytes % Eosinophils % Basophils % Nucleated RBC % PT with INR INR PTT (Actin FS) Anticoagulation Therapy Puncture Site ABG pH ABG pCO2 at Pt Temp ABG pO2 at Pt Temp ABG HCO3 ABG O2 Sat (Measured) ABG O2 Content ABG Base Excess Trevor Test Carboxyhemoglobin Methemoglobin O2 Delivery Device Oxygen Flow Rate Vent Mode Vent Rate Mechanical Rate Pressure Support Vent Sodium Potassium Chloride Carbon Dioxide Anion Gap BUN Creatinine Creat Clearance w eGFR POC Glucometer Random Glucose Lactic Acid Calcium Total Bilirubin AST ALT Alkaline Phosphatase Ammonia LD Total 842 H Creatine Kinase Creatine Kinase Index CK-MB (CK-2) Troponin I Total Protein Albumin Urine Color Urine Appearance Urine pH Ur Specific [place] Urine Protein Urine Glucose (UA) Urine Ketones Urine Blood Urine Nitrite Urine Bilirubin Urine Urobilinogen Ur Leukocyte Esterase Urine WBC (Auto) Urine RBC (Auto) Ur Epithelial Cells Urine Bacteria Hyaline Casts Urine Mucus Stool Occult Blood Salicylates Opiates Screen Methadone Screen Acetaminophen Barbiturate Screen Phencyclidine Screen Ur Amphetamines Screen MDMA (Ecstasy) Screen Benzodiazepines Screen Cocaine Screen U Marijuana (THC) Screen Alcohol, Quantitative < 3.0 Influenza A (Rapid) Influenza B (Rapid) Blood Type Antibody Screen Active Medications Generic Name Dose Route Start Last Admin Trade Name Freq PRN Reason Stop Dose Admin Piperacillin Sod/Tazobactam 50 mls @ 100 mls/hr 11/26/18 18:00 Sod 2.25 gm/ Dextrose IVPB Q8H-IV ALYSON Protocol ASSESSMENT/PLAN: 67F w/ pmhx of of HIV, asthma, and chronic pain who presented to the ED with worsening AMS x2 days admitted for AMS 2/2 hypoglycemia/seizure/encephalitis/ stroke/opiate overdose. Neurology -Lethargic, oriented to person, but difficult to obtain further responses. -Unsuccessful spinal tap done in ED, IR consulted -Neuro checks Q4H -Pt currently on Morphine 30 Q8H at home; AMS may be due to overdose, Utox + opiates. -Pt found to have fingerstick glucose at 26 prior to arrival; hypoglycemia could be cause of AMS, however pt not taking any diabetic meds. BGMs Q4H to avoid further hypoglycemic episodes. Cardiology #Elevated troponins -Trops 3.25 -Repeat trops ordered Pulmonary #Acute hypercapneic/hypoxemic respiratory failure -AB.23/73.4/135/29.3 -currently on Bipap, satting at 100% -Cont to monitor on Bipap #? Aspiration PNA -Given IV Vanc and Zosyn -ID recs GI #Transaminitis -Pt not currently complaining of abd pain. -AST/ALT 221/66, Alk P 77 -CTAP showed cholelithiasis. -FOBT (+), although Hgb is stable at 13.4. Renal #Hyperkalemia -repeat EKG. -Cont to monitor. ID #Sepsis 2/2 possible aspiration pna -empiric IV Zosyn 2.25gm given -ID consult ordered; Influenza screen neg; follow up BCx, UCx -recheck CBC in AM -Lac 6.2 > 2.5 -NS @100 #HIV -Currently on HIV meds at home, needs med rec from daughter -CD4/CD8/CD3 Ct ordered Prophylaxis DVT: Heparin 5000U SQ TID FEN -NS @ 75 -recheck lytes in AM, replete PRN -hold feeds for now due to AMS Dispo: We will continue to follow the patient. Thank you for this consultative opportunity. Visit type - Emergency Visit Emergency Visit: Yes ED Registration Date: 04/04/18 Care time: The patient presented to the Emergency Department on the above date and was hospitalized for further evaluation of their emergent condition. - New Patient This patient is new to me today: Yes Date on this admission: 04/05/18 - Critical Care Critical Care patient: Yes Total Critical Care Time (in minutes): 40 Critical Care Statement: The care of this patient involved high complexity decision making to prevent further life threatening deterioration of the patient 's condition and/or to evaluate & treat vital organ system(s) failure or risk of failure.
--- NOTE | 2018-04-04 16:07 | ECHO ---
Name: ANDERSON GONSALEZ Exam:Adult Echocardiogram Study Date: 04/04/2018 01:35 PM Age: 67 yrs Reason For Study: DEMAND ISCHEMIA Height: 68 in Weight: 100 lb BSA: 1.5 m2 MMode/2D Measurements & Calculations IVSd: 1.1 cm Ao root diam: 3.6 cm LVIDd: 4.6 cm LA dimension: 3.5 cm LVIDs: 3.7 cm LVPWd: 0.89 cm EDV(Teich): 97.7 ml ESV(Teich): 58.6 ml Doppler Measurements & Calculations MV E max jose: 45.4 cm/sec Ao V2 max: 139.0 cm/sec MV A max jose: 75.0 cm/sec Ao max P.7 mmHg MV E/A: 0.61 LV V1 max P.1 mmHg MR max jose: 301.2 cm/sec LV V1 max: 101.2 cm/sec MR max P.5 mmHg TR max jose: 263.4 cm/sec Med Peak E' Jose: 5.3 cm/sec TR max P.8 mmHg Med E/e': 8.6 Lat Peak E' Jose: 8.4 cm/sec Lat E/e': 5.4 Procedure A complete two-dimensional transthoracic echocardiogram was performed (2D, M-mode, Doppler and color flow Doppler). Left Ventricle The left ventricle is normal in size. Left ventricular systolic function is low normal. Ejection Frac tion = 50-55%. TDI reveals mildly impaired relaxation with normal filling pressure (E/E' 8). There is basal posterolateral wall mild hypokinesis. There is proximal mid posteriolateral wall mild hypokinesis. Th ere are regional wall motion abnormalities as specified. Right Ventricle The right ventricle is mildly dilated. RV systolic TDI is 8 cm/s suggests mildly reduced RV systolic function. Atria The left atrial size is normal. The right atrium is mild to moderately dilated. Mitral Valve There is mild mitral annular calcification. There is mild mitral regurgitation. Tricuspid Valve The tricuspid valve is normal in structure and function. There is moderate to severe tricuspid regurg itation. Pulmonary artery systolic pressure is at least 45 mmHg assuming RA pressure of 3 mmHg. Aortic Valve There is mild aortic sclerosis.;. No aortic regurgitation is present. Pulmonic Valve The pulmonic valve is not well visualized. Great Vessels The aortic root is normal size. Pericardium/Pleura There is no pericardial effusion. Interpretation Summary The left ventricle is normal in size. Left ventricular systolic function is low normal. Ejection Fraction = 50-55%. There are regional wall motion abnormalities as specified. TDI reveals mildly impaired relaxation with normal filling pressure (E/E' 8) RV systolic TDI is 8 cm/s suggests mildly reduced RV systolic function The right ventricle is mildly dilated. The right atrium is mild to moderately dilated. The left atrial size is normal. There is mild mitral annular calcification. There is mild mitral regurgitation. There is moderate to severe tricuspid regurgitation. Pulmonary artery systolic pressure is at least 45 mmHg assuming RA pressure of 3 mmHg There is mild aortic sclerosis.; No aortic regurgitation is present. There is no pericardial effusion. Previous study is not available for comparison Chato Beltran MD 04/04/2018 04:07 PM
--- NOTE | 2018-04-04 17:31 | HP ---
Admitting History and Physical - Primary Care Physician PCP: Marquis Kirk - Admission History of Present Illness: 67F with pmh of HIV, asthma and chronic pain presents with family for altered mental status worsening over the past 2 days with erratic behavior, walking naked in the leaving room, found by ems to be hypoxic, have fingerstick of 29, given 1g glucagon and 1L of D10, repeat fs of 89. 100% on NR, mid 80's on room air. Patient was originally unresponsive but now arousable to pain. ABG shows acute hypercapneic, hypoxemic respiratory failure, told family she may have taken a pill shes not supposed to take anymore amongst her current meds. Unknown CD4 level or compliance, placed on bipap. - Past Medical History Pulmonary: Yes: Asthma Infectious Disease: Yes: HIV - Smoking History Smoking history: Unknown if ever smoked Have you smoked in the past 12 months: No Aproximately how many cigarettes per day: 20 - Alcohol/Substance Use Hx Alcohol Use: No Home Medications - Allergies Allergies/Adverse Reactions: Allergies Allergy/AdvReac Type Severity Reaction Status Date / Time aspirin AdvReac Mild GI upset Verified 04/04/18 06:25 - Home Medications Home Medications: Ambulatory Orders Gabapentin [Neurontin -] 800 mg PO Q8H 04/04/18 Morphine *Sr* [Ms Contin -] 30 mg PO Q8H 04/04/18 Ranolazine [Ranexa -] 500 mg PO BID 04/04/18 Abacavir/Dolutegravir/Lamivudi [Triumeq Tablet] 1 each PO DAILY 04/05/18 Albuterol Sulfate Inhaler - [Ventolin Hfa Inhaler -] 2 inh PO DAILY 04/05/18 Alendronate Sodium/Vitamin D3 [Fosamax Plus D 70 mg-5,600 Iu vIT d] 1 each PO Q7D 04/05/18 Aspirin Coated [Ecotrin -] 81 mg PO DAILY 04/05/18 Calcium Carbonate/Vitamin D3 [Calcium 500-Vit D3 200 Caplet] 1 tab PO DAILY Clopidogrel Bisulfate [Plavix] 75 mg PO DAILY 04/05/18 Escitalopram Oxalate [Lexapro -] 10 mg PO DAILY 04/05/18 Fluticasone/Salmeterol [Advair Hfa 230-21 Mcg Inhaler] 2 puff IH BID 04/05/18 Gabapentin 800 mg PO TID 04/05/18 Morphine Sulfate 30 mg PO Q8H PRN 04/05/18 Multivitamin [One Daily] 1 each PO DAILY 04/05/18 Nicotine [Nicotrol Ns] 1 dose IH DAILY PRN 04/05/18 Pantoprazole Sodium [Protonix -] 20 mg PO DAILY 04/05/18 Simvastatin 10 mg PO DAILY 04/05/18 Physical Examination Vital Signs: Vital Signs Temperature 99.6 F 04/04/18 16:00 Pulse Rate 103 H 04/04/18 16:00 Respiratory Rate 14 04/04/18 16:00 Blood Pressure 140/94 04/04/18 16:00 O2 Sat by Pulse Oximetry (%) 97 04/04/18 16:38 Constitutional: Yes: Calm HENT: Yes: Atraumatic Neck: Yes: Supple Cardiovascular: Yes: Regular Rate and Rhythm Respiratory: Yes: Rhonchi Gastrointestinal: Yes: Normal Bowel Sounds Extremities: Yes: WNL Edema: No Peripheral Pulses WNL: Yes Neurological: Yes: Other (awake) Labs: CBC, BMP 04/04/18 06:28 Problem List - Problems (1) Acute hypercapnic respiratory failure Assessment/Plan: on face mask better now responding to her name Code(s): J96.02 - ACUTE RESPIRATORY FAILURE WITH HYPERCAPNIA (2) Acute kidney injury Assessment/Plan: iv hydration Code(s): N17.9 - ACUTE KIDNEY FAILURE, UNSPECIFIED (3) Altered mental status Code(s): R41.82 - ALTERED MENTAL STATUS, UNSPECIFIED Qualifiers: Altered mental status type: disorientation Qualified Code(s): R41.0 - Disorientation, unspecified (4) Aspiration pneumonia Code(s): J69.0 - PNEUMONITIS DUE TO INHALATION OF FOOD AND VOMIT Qualifiers: Aspiration pneumonia type: unspecified Laterality: right Lung location: lower lobe of lung Qualified Code(s): J69.0 - Pneumonitis due to inhalation of food and vomit (5) Asthma Code(s): J45.909 - UNSPECIFIED ASTHMA, UNCOMPLICATED (6) HIV Assessment/Plan: on meds (7) Neuropathy Code(s): G62.9 - POLYNEUROPATHY, UNSPECIFIED (8) Demand ischemia Assessment/Plan: follow up troponins Code(s): I24.8 - OTHER FORMS OF ACUTE ISCHEMIC HEART DISEASE Assessment/Plan Laboratory Tests 04/04/18 04/04/18 04/04/18 06:28 06:28 06:45 WBC 18.6 H RBC 4.25 Hgb 13.4 Hct 41.5 MCV 97.6 H MCH 31.5 MCHC 32.3 RDW 14.2 Plt Count 244 MPV 7.5 Absolute Neuts (auto) 14.9 H Neutrophils % 80.1 Lymphocytes % 6.8 L Monocytes % 12.7 H Eosinophils % 0.2 Basophils % 0.2 Nucleated RBC % 1 H PT with INR INR PTT (Actin FS) Anticoagulation Therapy Puncture Site ABG pH ABG pCO2 at Pt Temp ABG pO2 at Pt Temp ABG HCO3 ABG O2 Sat (Measured) ABG O2 Content ABG Base Excess Trevor Test Carboxyhemoglobin Methemoglobin O2 Delivery Device Oxygen Flow Rate Vent Mode Vent Rate Mechanical Rate Pressure Support Vent Sodium 138 Potassium 5.7 H Chloride 95 L Carbon Dioxide 28 Anion Gap 15 BUN 62 H Creatinine 3.8 H Creat Clearance w eGFR 11.85 POC Glucometer 135.30612 Random Glucose 114 H Lactic Acid Calcium 8.8 Total Bilirubin 3.3 H AST 221 H ALT 66 H Alkaline Phosphatase 77 Ammonia LD Total Creatine Kinase 1260 H Creatine Kinase Index 1.1 CK-MB (CK-2) 14.1 H Troponin I 3.25 H* Total Protein 7.1 Albumin 3.9 Urine Color Urine Appearance Urine pH Ur Specific Flushing Urine Protein Urine Glucose (UA) Urine Ketones Urine Blood Urine Nitrite Urine Bilirubin Urine Urobilinogen Ur Leukocyte Esterase Urine WBC (Auto) Urine RBC (Auto) Ur Epithelial Cells Urine Bacteria Hyaline Casts Urine Mucus Stool Occult Blood Salicylates 1.7 L Opiates Screen Methadone Screen Acetaminophen < 2.0 L Barbiturate Screen Phencyclidine Screen Ur Amphetamines Screen MDMA (Ecstasy) Screen Benzodiazepines Screen Cocaine Screen U Marijuana (THC) Screen Alcohol, Quantitative Influenza A (Rapid) Influenza B (Rapid) Blood Type Antibody Screen 04/04/18 04/04/18 04/04/18 06:45 06:45 06:45 WBC RBC Hgb Hct MCV MCH MCHC RDW Plt Count MPV Absolute Neuts (auto) Neutrophils % Lymphocytes % Monocytes % Eosinophils % Basophils % Nucleated RBC % PT with INR 30.10 H INR 2.53 H PTT (Actin FS) 35.4 Anticoagulation Therapy Puncture Site ABG pH ABG pCO2 at Pt Temp ABG pO2 at Pt Temp ABG HCO3 ABG O2 Sat (Measured) ABG O2 Content ABG Base Excess Trevor Test Carboxyhemoglobin Methemoglobin O2 Delivery Device Oxygen Flow Rate Vent Mode Vent Rate Mechanical Rate Pressure Support Vent Sodium Potassium Chloride Carbon Dioxide Anion Gap BUN Creatinine Creat Clearance w eGFR POC Glucometer Random Glucose Lactic Acid Calcium Total Bilirubin AST ALT Alkaline Phosphatase Ammonia 48.10 H LD Total Creatine Kinase Creatine Kinase Index CK-MB (CK-2) Troponin I Total Protein Albumin Urine Color Urine Appearance Urine pH Ur Specific Flushing Urine Protein Urine Glucose (UA) Urine Ketones Urine Blood Urine Nitrite Urine Bilirubin Urine Urobilinogen Ur Leukocyte Esterase Urine WBC (Auto) Urine RBC (Auto) Ur Epithelial Cells Urine Bacteria Hyaline Casts Urine Mucus Stool Occult Blood Salicylates Opiates Screen Methadone Screen Acetaminophen Barbiturate Screen Phencyclidine Screen Ur Amphetamines Screen MDMA (Ecstasy) Screen Benzodiazepines Screen Cocaine Screen U Marijuana (THC) Screen Alcohol, Quantitative Influenza A (Rapid) Influenza B (Rapid) Blood Type O POSITIVE Antibody Screen Negative 04/04/18 04/04/18 04/04/18 06:45 07:05 07:55 WBC RBC Hgb Hct MCV MCH MCHC RDW Plt Count MPV Absolute Neuts (auto) Neutrophils % Lymphocytes % Monocytes % Eosinophils % Basophils % Nucleated RBC % PT with INR INR PTT (Actin FS) Anticoagulation Therapy No Result Required. Puncture Site No Result Required. ABG pH 7.23 L* ABG pCO2 at Pt Temp 73.4 H* ABG pO2 at Pt Temp 135.0 H ABG HCO3 29.3 H ABG O2 Sat (Measured) 97.7 ABG O2 Content 18.0 ABG Base Excess 0.0 Trevor Test Positive Carboxyhemoglobin 2.1 H Methemoglobin 0.6 O2 Delivery Device No Result Required. Oxygen Flow Rate No Result Required. Vent Mode No Result Required. Vent Rate No Result Required. Mechanical Rate No Result Required. Pressure Support Vent No Result Required. Sodium Potassium Chloride Carbon Dioxide Anion Gap BUN Creatinine Creat Clearance w eGFR POC Glucometer Random Glucose Lactic Acid 6.2 H* Calcium Total Bilirubin AST ALT Alkaline Phosphatase Ammonia LD Total Creatine Kinase Creatine Kinase Index CK-MB (CK-2) Troponin I Total Protein Albumin Urine Color Dk yellow Urine Appearance Slcloudy Urine pH 5.0 Ur Specific Flushing 1.015 Urine Protein 2+ H Urine Glucose (UA) Negative Urine Ketones Negative Urine Blood 2+ H Urine Nitrite Negative Urine Bilirubin Negative Urine Urobilinogen 4.0 e.u/dl H Ur Leukocyte Esterase Negative Urine WBC (Auto) 5 Urine RBC (Auto) 2 Ur Epithelial Cells Moderate Urine Bacteria Rare Hyaline Casts 157 Urine Mucus Rare Stool Occult Blood Salicylates Opiates Screen Methadone Screen Acetaminophen Barbiturate Screen Phencyclidine Screen Ur Amphetamines Screen MDMA (Ecstasy) Screen Benzodiazepines Screen Cocaine Screen U Marijuana (THC) Screen Alcohol, Quantitative Influenza A (Rapid) Influenza B (Rapid) Blood Type Antibody Screen 04/04/18 04/04/18 04/04/18 07:55 07:55 08:06 WBC RBC Hgb Hct MCV MCH MCHC RDW Plt Count MPV Absolute Neuts (auto) Neutrophils % Lymphocytes % Monocytes % Eosinophils % Basophils % Nucleated RBC % PT with INR INR PTT (Actin FS) Anticoagulation Therapy Puncture Site ABG pH ABG pCO2 at Pt Temp ABG pO2 at Pt Temp ABG HCO3 ABG O2 Sat (Measured) ABG O2 Content ABG Base Excess Trevor Test Carboxyhemoglobin Methemoglobin O2 Delivery Device Oxygen Flow Rate Vent Mode Vent Rate Mechanical Rate Pressure Support Vent Sodium Potassium Chloride Carbon Dioxide Anion Gap BUN Creatinine Creat Clearance w eGFR POC Glucometer 164.62869 Random Glucose Lactic Acid Calcium Total Bilirubin AST ALT Alkaline Phosphatase Ammonia LD Total Creatine Kinase Creatine Kinase Index CK-MB (CK-2) Troponin I Total Protein Albumin Urine Color Urine Appearance Urine pH Ur Specific Flushing Urine Protein Urine Glucose (UA) Urine Ketones Urine Blood Urine Nitrite Urine Bilirubin Urine Urobilinogen Ur Leukocyte Esterase Urine WBC (Auto) Urine RBC (Auto) Ur Epithelial Cells Urine Bacteria Hyaline Casts Urine Mucus Stool Occult Blood Positive Salicylates Opiates Screen Positive A* Methadone Screen Negative Acetaminophen Barbiturate Screen Negative Phencyclidine Screen Negative Ur Amphetamines Screen Negative MDMA (Ecstasy) Screen Negative Benzodiazepines Screen Negative Cocaine Screen Negative U Marijuana (THC) Screen Negative Alcohol, Quantitative Influenza A (Rapid) Influenza B (Rapid) Blood Type Antibody Screen 04/04/18 04/04/18 04/04/18 08:15 08:48 13:20 WBC RBC Hgb Hct MCV MCH MCHC RDW Plt Count MPV Absolute Neuts (auto) Neutrophils % Lymphocytes % Monocytes % Eosinophils % Basophils % Nucleated RBC % PT with INR INR PTT (Actin FS) Anticoagulation Therapy Puncture Site ABG pH ABG pCO2 at Pt Temp ABG pO2 at Pt Temp ABG HCO3 ABG O2 Sat (Measured) ABG O2 Content ABG Base Excess Trevor Test Carboxyhemoglobin Methemoglobin O2 Delivery Device Oxygen Flow Rate Vent Mode Vent Rate Mechanical Rate Pressure Support Vent Sodium Potassium Chloride Carbon Dioxide Anion Gap BUN Creatinine Creat Clearance w eGFR POC Glucometer Random Glucose Lactic Acid 2.5 H* Calcium Total Bilirubin AST ALT Alkaline Phosphatase Ammonia LD Total Cancelled Creatine Kinase Creatine Kinase Index CK-MB (CK-2) Troponin I Total Protein Albumin Urine Color Urine Appearance Urine pH Ur Specific Flushing Urine Protein Urine Glucose (UA) Urine Ketones Urine Blood Urine Nitrite Urine Bilirubin Urine Urobilinogen Ur Leukocyte Esterase Urine WBC (Auto) Urine RBC (Auto) Ur Epithelial Cells Urine Bacteria Hyaline Casts Urine Mucus Stool Occult Blood Salicylates Opiates Screen Methadone Screen Acetaminophen Barbiturate Screen Phencyclidine Screen Ur Amphetamines Screen MDMA (Ecstasy) Screen Benzodiazepines Screen Cocaine Screen U Marijuana (THC) Screen Alcohol, Quantitative Influenza A (Rapid) Negative Influenza B (Rapid) Negative Blood Type Antibody Screen 04/04/18 04/04/18 13:20 15:49 WBC RBC Hgb Hct MCV MCH MCHC RDW Plt Count MPV Absolute Neuts (auto) Neutrophils % Lymphocytes % Monocytes % Eosinophils % Basophils % Nucleated RBC % PT with INR INR PTT (Actin FS) Anticoagulation Therapy Puncture Site ABG pH ABG pCO2 at Pt Temp ABG pO2 at Pt Temp ABG HCO3 ABG O2 Sat (Measured) ABG O2 Content ABG Base Excess Trevor Test Carboxyhemoglobin Methemoglobin O2 Delivery Device Oxygen Flow Rate Vent Mode Vent Rate Mechanical Rate Pressure Support Vent Sodium Potassium Chloride Carbon Dioxide Anion Gap BUN Creatinine Creat Clearance w eGFR POC Glucometer 185.16632 Random Glucose Lactic Acid Calcium Total Bilirubin AST ALT Alkaline Phosphatase Ammonia LD Total 842 H Creatine Kinase Creatine Kinase Index CK-MB (CK-2) Troponin I Total Protein Albumin Urine Color Urine Appearance Urine pH Ur Specific Flushing Urine Protein Urine Glucose (UA) Urine Ketones Urine Blood Urine Nitrite Urine Bilirubin Urine Urobilinogen Ur Leukocyte Esterase Urine WBC (Auto) Urine RBC (Auto) Ur Epithelial Cells Urine Bacteria Hyaline Casts Urine Mucus Stool Occult Blood Salicylates Opiates Screen Methadone Screen Acetaminophen Barbiturate Screen Phencyclidine Screen Ur Amphetamines Screen MDMA (Ecstasy) Screen Benzodiazepines Screen Cocaine Screen U Marijuana (THC) Screen Alcohol, Quantitative < 3.0 Influenza A (Rapid) Influenza B (Rapid) Blood Type Antibody Screen Active Medications Generic Name Dose Route Start Last Admin Trade Name Freq PRN Reason Stop Dose Admin Chlorhexidine Gluconate 1 applic 04/04/18 22:00 Hibiclens For Decolonization - TP HS ALYSON Heparin Sodium (Porcine) 5,000 unit 04/04/18 22:00 Heparin - SQ TID ALYSON Piperacillin Sod/Tazobactam 50 mls @ 100 mls/hr 04/04/18 18:00 Sod 2.25 gm/ Dextrose IVPB Q8H-IV ALYSON Protocol Sodium Chloride 1,000 mls @ 75 mls/hr 04/04/18 17:30 Normal Saline - IV ASDIR ALYSON Mupirocin 1 applic 04/04/18 22:00 Bactroban Ointment (For Decolonization) - NS 04/09/18 21:59 BID ALYSON cc time 60 min Active Medications Generic Name Dose Route Start Last Admin Trade Name Freterry PRN Reason Stop Dose Admin Abacavir Sulfate 600 mg 04/06/18 10:00 Ziagen - PO DAILY [facility] Albuterol Sulfate 1 amp 04/04/18 17:40 Ventolin 0.083% Nebulizer Soln - NEB Q4H PRN SHORT OF BREATH/WHEEZING Albuterol/Ipratropium 1 amp 04/04/18 20:00 04/05/18 16:20 Duoneb - NEB 1 amp RQID ALYSON Administration Aspirin 81 mg 04/05/18 10:00 04/05/18 10:08 Ecotrin - PO Not Given DAILY ALYSON Carvedilol 6.25 mg 04/05/18 10:00 04/05/18 11:00 Coreg - PO Not Given BID ALYSON Chlorhexidine Gluconate 1 applic 04/04/18 22:00 04/04/18 22:05 Hibiclens For Decolonization - TP Not Given HS ALYSON Clopidogrel Bisulfate 75 mg 04/05/18 10:00 04/05/18 10:07 Plavix - PO Not Given DAILY ALYSON Heparin Sodium (Porcine) 5,000 unit 04/04/18 22:00 04/05/18 06:24 Heparin - SQ 5,000 unit TID ALYSON Administration Piperacillin Sod/Tazobactam 50 mls @ 100 mls/hr 04/04/18 18:00 11/27/18 17:35 Sod 2.25 gm/ Dextrose IVPB 100 mls/hr Q8H-IV ALYSON Administration Protocol Sodium Chloride 1,000 mls @ 75 mls/hr 04/04/18 17:30 04/05/18 17:34 Normal Saline - IV Not Given ASDIR ALYSON Lamivudine 300 mg 04/06/18 10:00 Epivir - PO DAILY ALYSON Methylprednisolone Sodium Succinate 40 mg 04/04/18 18:00 04/05/18 17:35 Solu-Medrol - IVPUSH 40 mg Q8H-IV ALYSON Administration Mupirocin 1 applic 04/04/18 22:00 04/05/18 10:10 Bactroban Ointment (For Decolonization) - NS 04/09/18 21:59 1 applic BID ALYSON Administration diagnoses Altered Mental Status improved Acute on Chronic Hypoxic and Hypercapneic Respiratory Failure Acute COPD Exacerbation Pneumonia Severe Sepsis Lactic Acidosis Acute Kidney Injury Elevated LFTs +Troponins likely Demand Ischemia CAD s/p CABG HIV cc time 60 min
[2018-04-04] MEDS ORDERED: ALBUTEROL SO4 0.083% IH SOL 2.5 MG/3 ML VIAL.NEB. NEB PRN (17:40)
[2018-04-04] MEDS ORDERED: PIPERACILLIN/TAZOBACTAM 2.25 GM VIAL IVPB ONE (17:52)
[2018-04-04] MEDS ORDERED: DEXTROSE 5%-WATER - 50 ML IVPB ONE (17:52)
[2018-04-04] MEDS: PIPERACILLIN/TAZOB 2.25 GM 2.25 GM in DEXTROSE 5%-WATER - 50 ML IVPB SCH (18:07)
[2018-04-04] MEDS: SODIUM CHLORIDE 1,000 ML IV SCH (18:07)
[2018-04-04] MEDS: methylPREDNISolone NA SUCC 40 MG/1 ML VIAL IVPUSH SCH (18:10)
[2018-04-04 19:02] LABS: ARTERIAL BLD GAS O2 SATURATION 97.3 % (90-98.9); ARTERIAL BLOOD GAS pH 7.28 (7.35-7.45)
[2018-04-04 19:03] LABS: ALLENS TEST POSITIVE; ARTERIAL BLOOD GAS BASE EXCESS 5.3 meq/l (-2-2)
[2018-04-04 19:05] LABS: ARTERIAL BLOOD GAS PCO2 75.4 mmHg (35-45)
[2018-04-04 19:43] LABS: ANION GAP 8 MMOL/L (8-16); BLOOD UREA NITROGEN 71 mg/dL (7-18); CALCIUM 7.5 mg/dL (8.5-10.1); CHLORIDE 100 mmol/L (98-107); CO2 34 mmol/L (21-32); GLUCOSE,RANDOM 174 mg/dL (74-106); SODIUM 142 mmol/L (136-145)
[2018-04-04] MEDS: MUPIROCIN 2% TOPICAL OINTMENT FOR DECOLONIZATION NS SCH (22:05)
[2018-04-04] MEDS: HEPARIN NA (PORCINE) 5,000 UNITS/ML 1ML VIAL SQ SCH (22:05)
[2018-04-04] MEDS: CHLORHEXIDINE GLUCONATE 4% CLEANSER FOR DECOLONIZATION TP SCH (22:05)
[2018-04-05] MEDS ORDERED: PIPERACILLIN/TAZOBACTAM 2.25 GM VIAL IVPB ONE ×3 (00:05→17:30)
[2018-04-05] MEDS ORDERED: DEXTROSE 5%-WATER - 50 ML IVPB ONE ×3 (00:05→17:30)
[2018-04-05] MEDS: PIPERACILLIN/TAZOB 2.25 GM 2.25 GM in DEXTROSE 5%-WATER - 50 ML IVPB SCH ×3 (01:37→17:35)
[2018-04-05] MEDS: methylPREDNISolone NA SUCC 40 MG/1 ML VIAL IVPUSH SCH ×3 (02:31→17:35)
[2018-04-05 06:24] LABS: BASO % 0.1 % (0-2.0); HEMATOCRIT 39.3 % (32.4-45.2); HEMOGLOBIN 12.7 GM/dL (10.7-15.3); LYMPH % 1.9 % (8-40); MCH 31.7 pg (25.7-33.7); MCHC 32.3 g/dl (32.0-36.0); MEAN CELL VOLUME 98.2 fl (80-96); MEAN PLT VOLUME 7.8 fl (7.5-11.1); MONO % 7.9 % (3.8-10.2); NEUT % 90.1 % (42.8-82.8); PLATELET COUNT 212 K/MM3 (134-434); RDW 14.4 % (11.6-15.6); WHITE BLOOD COUNT 19.3 K/mm3 (4.0-10.0)
[2018-04-05] MEDS: HEPARIN NA (PORCINE) 5,000 UNITS/ML 1ML VIAL SQ SCH (06:24)
[2018-04-05 06:34] LABS: INR 1.89 (0.83-1.09); PROTHROMBIN TIME (PATIENT) 22.5 SEC (9.7-13.0)
[2018-04-05 06:45] LABS: ALBUMIN 2.9 g/dl (3.4-5.0); ALK PHOS 64 U/L (45-117); ANION GAP 6 MMOL/L (8-16); BILIRUBIN,TOTAL 1.3 mg/dL (0.2-1); BLOOD UREA NITROGEN 70 mg/dL (7-18); CALCIUM 7.1 mg/dL (8.5-10.1); CHLORIDE 103 mmol/L (98-107); CO2 33 mmol/L (21-32); CREATININE 2.3 mg/dL (0.55-1.3); GLUCOSE,RANDOM 148 mg/dL (74-106); MAGNESIUM 1.8 mg/dL (1.8-2.4); PHOSPHOROUS 4.8 mg/dL (2.5-4.9); POTASSIUM 4.8 mmol/L (3.5-5.1); SGOT/AST 324 U/L (15-37); SGPT/ALT 138 U/L (13-61); SODIUM 142 mmol/L (136-145); TOT PROT 5.8 g/dl (6.4-8.2)
--- NOTE | 2018-04-05 07:20 | PN ---
Progress Note (short form) - Note Progress Note: Chief Complaint: Events noted, notes reviewed, on BiPAP, denies any chest pain, CPK and Troponin I trend noted, patient has sternotomy incision/scar with history of CABG unknown details, sinus rhythm noted History of Present Illness: Seen and examined in the ICU. Events noted, notes reviewed, on BiPAP, denies any chest pain, CPK and Troponin I trend noted, patient has sternotomy incision/ scar with history of CABG unknown details, sinus rhythm noted Echocardiography dated 04/04/2018 revealed LV wall motion abnormality with low normal lVEF 50-55%, RV dilated and hypokinetic, dilated RA, mild MR, moderate to severe TR with RVSP of 45 mmHg - Current Medication List Current Medications Albuterol Sulfate (Ventolin 0.083% Nebulizer Soln -) 1 amp NEB Q4H PRN PRN Reason: SHORT OF BREATH/WHEEZING Albuterol/Ipratropium (Duoneb -) 1 amp NEB RQID [facility] Last Admin: 04/04/18 21:30 Dose: 1 amp Chlorhexidine Gluconate (Hibiclens For Decolonization -) 1 applic TP HS [facility] Last Admin: 04/04/18 22:05 Dose: Not Given Heparin Sodium (Porcine) (Heparin -) 5,000 unit SQ TID [facility] Last Admin: 04/05/18 06:24 Dose: 5,000 unit Piperacillin Sod/Tazobactam (Sod 2.25 gm/ Dextrose) 50 mls @ 100 mls/hr IVPB Q8H-IV ALYSON; Protocol Last Admin: 04/05/18 01:37 Dose: 100 mls/hr Sodium Chloride (Normal Saline -) 1,000 mls @ 75 mls/hr IV ASDIR [facility] Last Admin: 04/04/18 18:07 Dose: 75 mls/hr Methylprednisolone Sodium Succinate (Solu-Medrol -) 40 mg IVPUSH Q8H-IV AL[facility]ON Last Admin: 04/05/18 02:31 Dose: 40 mg Mupirocin (Bactroban Ointment (For Decolonization) -) 1 applic NS BID [facility] Stop: 04/09/18 21:59 Last Admin: 04/04/18 22:05 Dose: 1 applic Review of Systems - Objective Vital Signs: Last Vital Signs Temp Pulse Resp BP Pulse Ox 98 F 101 H 21 H 127/82 97 04/05/18 06:00 04/05/18 06:00 04/05/18 06:00 04/05/18 06:00 04/05/18 03:20 Intake & Output 04/02/18 04/03/18 04/04/18 04/05/18 23:59 23:59 23:59 23:59 Intake Total 125 939 Output Total 100 Balance 25 939 Weight 124 lb 12.506 oz 124 lb 14.4 oz Neck: Supple Negative JVD No Bruit Cardiovascular: S1 S2 Regular Rate Rhythm Chest: Scattered Rhonchi Bilaterally Gastrointestinal: Soft Benign Normal Bowel Sounds Ext: No Edema Labs: ABG Results ABG pH 7.28 (7.35-7.45) L 04/04/18 18:52 ABG pCO2 at Pt Temp 75.4 mmHg (35-45) H* 04/04/18 18:52 ABG pO2 at Pt Temp 113.0 mmHg (80-100) H D 04/04/18 18:52 ABG HCO3 34.3 meq/L (22-26) H 04/04/18 18:52 ABG O2 Sat (Measured) 97.3 % (90-98.9) 04/04/18 18:52 ABG O2 Content 17.4 % vol (15-22) 04/04/18 18:52 ABG Base Excess 5.3 meq/l (-2-2) H 04/04/18 18:52 Troponin, BNP 04/04/18 04/04/18 04/04/18 06:28 18:00 18:01 Troponin I 3.25 H* 2.17 H* 2.38 H* 04/05/18 05:30 Troponin I 1.23 H* CBC, BMP 04/05/18 05:30 04/05/18 05:30 Hepatic Panel Total Bilirubin 1.3 mg/dL (0.2-1) H 04/05/18 05:30 AST 324 U/L (15-37) H 04/05/18 05:30 ALT 138 U/L (13-61) H 04/05/18 05:30 Alkaline Phosphatase 64 U/L (45-117) 04/05/18 05:30 Albumin 2.9 g/dl (3.4-5.0) L 04/05/18 05:30 Assessment/Plan ASSESSMENT: 1. Altered mental status - toxic metabolic encephelopathy, resolving 2. Acute hypercapneic/hypoxic respiratory failure, resolving related to 3. Right lower lobe pneumonia with probable sepsis syndrome 4. CAD with history of CABG for planned intervention evidence of ACS/demand ischemia angina pectoris 5. Systolic/diastolic LV dysfunction with class 0 NYHA classification LV failure 6. RV dysfunction with moderate degree of pulmonary hypertension 7. HTN 8. Hypercholesterolemia 9. Hyperglycemia, DM to be excluded 10. Acute kidney injury with resolved hyperkalemia 11. HIV 12. Acute hepatic injury PLAN: 1. Antibiotics as per the primary team 2. BiPAP as per ICU team 3. IV fluids with caution and close monitoring of renal recovery and electrolytes 4. B-Blockers hemodynamics permitting 5. Ideally should be on ACEI or ARBS pending renal function recovery 6. ASA and Plavix unless it is contraindicated 7. Add Statins once LFT's normalize 8. Obtain medical records specially cardiac history records from her physicians in [place], [place] Tabatha Hogan MD
--- NOTE | 2018-04-05 07:44 | PN ---
Physical Exam: SUBJECTIVE: Patient seen and examined at bedside. No acute events overnight. Denies chest pain, sob, f/c, abrams/d, abd pain. OBJECTIVE: Vital Signs Period Temp Pulse Resp BP Sys/Buck Pulse Ox Last 24 Hr 98 F-99.6 F 56-106 11-21 127-147/80-100 50-100 GENERAL: On Bipap. Alert and oriented to person and time. NAD. Resting comfortably. HEENT: Normal with no signs of trauma. KEHINDE. Dry mucus membranes. NECK: Supple. LUNGS: Diminished breath sounds b/l. Symmetric chest rise. HEART: RRR. Normal S1, S2. No murmurs noted. ABDOMEN: Soft, NT/ND. +BS in all 4Qs. MUSCULOSKELETAL: No peripheral edema noted. NEUROLOGICAL: Responds to commands (opens eyes, squeezes fingers, plantarflex and dorsiflexes feet) SKIN: surgical scar in inner thigh of R leg and midline of sternum. Laboratory Results - last 24 hr 04/04/18 04/04/18 04/04/18 06:28 06:45 06:45 WBC 18.6 H RBC 4.25 Hgb 13.4 Hct 41.5 MCV 97.6 H MCH 31.5 MCHC 32.3 RDW 14.2 Plt Count 244 MPV 7.5 Absolute Neuts (auto) 14.9 H Neutrophils % 80.1 Lymphocytes % 6.8 L Monocytes % 12.7 H Eosinophils % 0.2 Basophils % 0.2 Nucleated RBC % 1 H PT with INR INR Anticoagulation Therapy Puncture Site ABG pH ABG pCO2 at Pt Temp ABG pO2 at Pt Temp ABG HCO3 ABG O2 Sat (Measured) ABG O2 Content ABG Base Excess Trevor Test O2 Delivery Device Oxygen Flow Rate Vent Mode Vent Rate Mechanical Rate Pressure Support Vent Sodium 138 Potassium 5.7 H Chloride 95 L Carbon Dioxide 28 Anion Gap 15 BUN 62 H Creatinine 3.8 H Creat Clearance w eGFR 11.85 POC Glucometer Random Glucose 114 H Lactic Acid Calcium 8.8 Phosphorus Magnesium Total Bilirubin 3.3 H AST 221 H ALT 66 H Alkaline Phosphatase 77 LD Total Creatine Kinase 1260 H Creatine Kinase Index 1.1 CK-MB (CK-2) 14.1 H Troponin I 3.25 H* Total Protein 7.1 Albumin 3.9 Urine Color Urine Appearance Urine pH Ur Specific [place] Urine Protein Urine Glucose (UA) Urine Ketones Urine Blood Urine Nitrite Urine Bilirubin Urine Urobilinogen Ur Leukocyte Esterase Urine WBC (Auto) Urine RBC (Auto) Ur Epithelial Cells Urine Bacteria Hyaline Casts Urine Mucus Stool Occult Blood Salicylates 1.7 L Opiates Screen Methadone Screen Acetaminophen < 2.0 L Barbiturate Screen Phencyclidine Screen Ur Amphetamines Screen MDMA (Ecstasy) Screen Benzodiazepines Screen Cocaine Screen U Marijuana (THC) Screen Alcohol, Quantitative Influenza A (Rapid) Influenza B (Rapid) Blood Type O POSITIVE Antibody Screen Negative 04/04/18 04/04/18 04/04/18 06:45 07:55 07:55 WBC RBC Hgb Hct MCV MCH MCHC RDW Plt Count MPV Absolute Neuts (auto) Neutrophils % Lymphocytes % Monocytes % Eosinophils % Basophils % Nucleated RBC % PT with INR INR Anticoagulation Therapy Puncture Site ABG pH ABG pCO2 at Pt Temp ABG pO2 at Pt Temp ABG HCO3 ABG O2 Sat (Measured) ABG O2 Content ABG Base Excess Trevor Test O2 Delivery Device Oxygen Flow Rate Vent Mode Vent Rate Mechanical Rate Pressure Support Vent Sodium Potassium Chloride Carbon Dioxide Anion Gap BUN Creatinine Creat Clearance w eGFR POC Glucometer Random Glucose Lactic Acid 6.2 H* Calcium Phosphorus Magnesium Total Bilirubin AST ALT Alkaline Phosphatase LD Total Creatine Kinase Creatine Kinase Index CK-MB (CK-2) Troponin I Total Protein Albumin Urine Color Dk yellow Urine Appearance Slcloudy Urine pH 5.0 Ur Specific [place] 1.015 Urine Protein 2+ H Urine Glucose (UA) Negative Urine Ketones Negative Urine Blood 2+ H Urine Nitrite Negative Urine Bilirubin Negative Urine Urobilinogen 4.0 e.u/dl H Ur Leukocyte Esterase Negative Urine WBC (Auto) 5 Urine RBC (Auto) 2 Ur Epithelial Cells Moderate Urine Bacteria Rare Hyaline Casts 157 Urine Mucus Rare Stool Occult Blood Positive Salicylates Opiates Screen Methadone Screen Acetaminophen Barbiturate Screen Phencyclidine Screen Ur Amphetamines Screen MDMA (Ecstasy) Screen Benzodiazepines Screen Cocaine Screen U Marijuana (THC) Screen Alcohol, Quantitative Influenza A (Rapid) Influenza B (Rapid) Blood Type Antibody Screen 04/04/18 04/04/18 04/04/18 07:55 08:06 08:15 WBC RBC Hgb Hct MCV MCH MCHC RDW Plt Count MPV Absolute Neuts (auto) Neutrophils % Lymphocytes % Monocytes % Eosinophils % Basophils % Nucleated RBC % PT with INR INR Anticoagulation Therapy Puncture Site ABG pH ABG pCO2 at Pt Temp ABG pO2 at Pt Temp ABG HCO3 ABG O2 Sat (Measured) ABG O2 Content ABG Base Excess Trevor Test O2 Delivery Device Oxygen Flow Rate Vent Mode Vent Rate Mechanical Rate Pressure Support Vent Sodium Potassium Chloride Carbon Dioxide Anion Gap BUN Creatinine Creat Clearance w eGFR POC Glucometer [phone] Random Glucose Lactic Acid Calcium Phosphorus Magnesium Total Bilirubin AST ALT Alkaline Phosphatase LD Total Creatine Kinase Creatine Kinase Index CK-MB (CK-2) Troponin I Total Protein Albumin Urine Color Urine Appearance Urine pH Ur Specific [place] Urine Protein Urine Glucose (UA) Urine Ketones Urine Blood Urine Nitrite Urine Bilirubin Urine Urobilinogen Ur Leukocyte Esterase Urine WBC (Auto) Urine RBC (Auto) Ur Epithelial Cells Urine Bacteria Hyaline Casts Urine Mucus Stool Occult Blood Salicylates Opiates Screen Positive A* Methadone Screen Negative Acetaminophen Barbiturate Screen Negative Phencyclidine Screen Negative Ur Amphetamines Screen Negative MDMA (Ecstasy) Screen Negative Benzodiazepines Screen Negative Cocaine Screen Negative U Marijuana (THC) Screen Negative Alcohol, Quantitative Influenza A (Rapid) Negative Influenza B (Rapid) Negative Blood Type Antibody Screen 04/04/18 04/04/18 04/04/18 08:48 13:20 13:20 WBC RBC Hgb Hct MCV MCH MCHC RDW Plt Count MPV Absolute Neuts (auto) Neutrophils % Lymphocytes % Monocytes % Eosinophils % Basophils % Nucleated RBC % PT with INR INR Anticoagulation Therapy Puncture Site ABG pH ABG pCO2 at Pt Temp ABG pO2 at Pt Temp ABG HCO3 ABG O2 Sat (Measured) ABG O2 Content ABG Base Excess Trevor Test O2 Delivery Device Oxygen Flow Rate Vent Mode Vent Rate Mechanical Rate Pressure Support Vent Sodium Potassium Chloride Carbon Dioxide Anion Gap BUN Creatinine Creat Clearance w eGFR POC Glucometer Random Glucose Lactic Acid 2.5 H* Calcium Phosphorus Magnesium Total Bilirubin AST ALT Alkaline Phosphatase LD Total Cancelled 842 H Creatine Kinase Creatine Kinase Index CK-MB (CK-2) Troponin I Total Protein Albumin Urine Color Urine Appearance Urine pH Ur Specific [place] Urine Protein Urine Glucose (UA) Urine Ketones Urine Blood Urine Nitrite Urine Bilirubin Urine Urobilinogen Ur Leukocyte Esterase Urine WBC (Auto) Urine RBC (Auto) Ur Epithelial Cells Urine Bacteria Hyaline Casts Urine Mucus Stool Occult Blood Salicylates Opiates Screen Methadone Screen Acetaminophen Barbiturate Screen Phencyclidine Screen Ur Amphetamines Screen MDMA (Ecstasy) Screen Benzodiazepines Screen Cocaine Screen U Marijuana (THC) Screen Alcohol, Quantitative < 3.0 Influenza A (Rapid) Influenza B (Rapid) Blood Type Antibody Screen 04/04/18 04/04/18 04/04/18 15:49 18:00 18:00 WBC RBC Hgb Hct MCV MCH MCHC RDW Plt Count MPV Absolute Neuts (auto) Neutrophils % Lymphocytes % Monocytes % Eosinophils % Basophils % Nucleated RBC % PT with INR INR Anticoagulation Therapy Puncture Site ABG pH ABG pCO2 at Pt Temp ABG pO2 at Pt Temp ABG HCO3 ABG O2 Sat (Measured) ABG O2 Content ABG Base Excess Trevor Test O2 Delivery Device Oxygen Flow Rate Vent Mode Vent Rate Mechanical Rate Pressure Support Vent Sodium 142 Potassium 5.0 Chloride 100 Carbon Dioxide 34 H Anion Gap 8 BUN 71 H Creatinine 3.0 H Creat Clearance w eGFR 15.57 POC Glucometer [phone] Random Glucose 174 H Lactic Acid Calcium 7.5 L Phosphorus Magnesium Total Bilirubin AST ALT Alkaline Phosphatase LD Total Creatine Kinase Creatine Kinase Index CK-MB (CK-2) Troponin I 2.17 H* Total Protein Albumin Urine Color Urine Appearance Urine pH Ur Specific [place] Urine Protein Urine Glucose (UA) Urine Ketones Urine Blood Urine Nitrite Urine Bilirubin Urine Urobilinogen Ur Leukocyte Esterase Urine WBC (Auto) Urine RBC (Auto) Ur Epithelial Cells Urine Bacteria Hyaline Casts Urine Mucus Stool Occult Blood Salicylates Opiates Screen Methadone Screen Acetaminophen Barbiturate Screen Phencyclidine Screen Ur Amphetamines Screen MDMA (Ecstasy) Screen Benzodiazepines Screen Cocaine Screen U Marijuana (THC) Screen Alcohol, Quantitative Influenza A (Rapid) Influenza B (Rapid) Blood Type Antibody Screen 04/04/18 04/04/18 04/05/18 18:01 18:52 05:30 WBC RBC Hgb Hct MCV MCH MCHC RDW Plt Count MPV Absolute Neuts (auto) Neutrophils % Lymphocytes % Monocytes % Eosinophils % Basophils % Nucleated RBC % PT with INR INR Anticoagulation Therapy No Result Required. Puncture Site Left radial ABG pH 7.28 L ABG pCO2 at Pt Temp 75.4 H* ABG pO2 at Pt Temp 113.0 H D ABG HCO3 34.3 H ABG O2 Sat (Measured) 97.3 ABG O2 Content 17.4 ABG Base Excess 5.3 H Trevor Test Positive O2 Delivery Device Bipap Oxygen Flow Rate 50 Vent Mode No Result Required. Vent Rate 14 Mechanical Rate No Result Required. Pressure Support Vent 10/5 Sodium 142 Potassium 4.8 Chloride 103 Carbon Dioxide 33 H Anion Gap 6 L BUN 70 H Creatinine 2.3 H Creat Clearance w eGFR 21.15 POC Glucometer Random Glucose 148 H Lactic Acid Calcium 7.1 L Phosphorus 4.8 Magnesium 1.8 Total Bilirubin 1.3 H AST 324 H ALT 138 H Alkaline Phosphatase 64 LD Total Creatine Kinase 1477 H 1156 H Creatine Kinase Index 1.1 0.9 CK-MB (CK-2) 16.9 H 11.4 H Troponin I 2.38 H* 1.23 H* Total Protein 5.8 L Albumin 2.9 L Urine Color Urine Appearance Urine pH Ur Specific [place] Urine Protein Urine Glucose (UA) Urine Ketones Urine Blood Urine Nitrite Urine Bilirubin Urine Urobilinogen Ur Leukocyte Esterase Urine WBC (Auto) Urine RBC (Auto) Ur Epithelial Cells Urine Bacteria Hyaline Casts Urine Mucus Stool Occult Blood Salicylates Opiates Screen Methadone Screen Acetaminophen Barbiturate Screen Phencyclidine Screen Ur Amphetamines Screen MDMA (Ecstasy) Screen Benzodiazepines Screen Cocaine Screen U Marijuana (THC) Screen Alcohol, Quantitative Influenza A (Rapid) Influenza B (Rapid) Blood Type Antibody Screen 04/05/18 04/05/18 04/05/18 05:30 05:30 05:30 WBC 19.3 H RBC 4.00 Hgb 12.7 Hct 39.3 MCV 98.2 H MCH 31.7 MCHC 32.3 RDW 14.4 Plt Count 212 MPV 7.8 Absolute Neuts (auto) 17.4 H Neutrophils % 90.1 H Lymphocytes % 1.9 L D Monocytes % 7.9 Eosinophils % 0.0 D Basophils % 0.1 Nucleated RBC % 1 H PT with INR 22.50 H INR 1.89 H Anticoagulation Therapy Puncture Site ABG pH ABG pCO2 at Pt Temp ABG pO2 at Pt Temp ABG HCO3 ABG O2 Sat (Measured) ABG O2 Content ABG Base Excess Trevor Test O2 Delivery Device Oxygen Flow Rate Vent Mode Vent Rate Mechanical Rate Pressure Support Vent Sodium Potassium Chloride Carbon Dioxide Anion Gap BUN Creatinine Creat Clearance w eGFR POC Glucometer Random Glucose Lactic Acid 0.6 Calcium Phosphorus Magnesium Total Bilirubin AST ALT Alkaline Phosphatase LD Total Creatine Kinase Creatine Kinase Index CK-MB (CK-2) Troponin I Total Protein Albumin Urine Color Urine Appearance Urine pH Ur Specific [place] Urine Protein Urine Glucose (UA) Urine Ketones Urine Blood Urine Nitrite Urine Bilirubin Urine Urobilinogen Ur Leukocyte Esterase Urine WBC (Auto) Urine RBC (Auto) Ur Epithelial Cells Urine Bacteria Hyaline Casts Urine Mucus Stool Occult Blood Salicylates Opiates Screen Methadone Screen Acetaminophen Barbiturate Screen Phencyclidine Screen Ur Amphetamines Screen MDMA (Ecstasy) Screen Benzodiazepines Screen Cocaine Screen U Marijuana (THC) Screen Alcohol, Quantitative Influenza A (Rapid) Influenza B (Rapid) Blood Type Antibody Screen Active Medications Generic Name Dose Route Start Last Admin Trade Name Freq PRN Reason Stop Dose Admin Albuterol Sulfate 1 amp 04/04/18 17:40 Ventolin 0.083% Nebulizer Soln - NEB Q4H PRN SHORT OF BREATH/WHEEZING Albuterol/Ipratropium 1 amp 04/04/18 20:00 04/04/18 21:30 Duoneb - NEB 1 amp RQID [facility] Administration Chlorhexidine Gluconate 1 applic 04/04/18 22:00 04/04/18 22:05 Hibiclens For Decolonization - TP Not Given HS [facility] Heparin Sodium (Porcine) 5,000 unit 04/04/18 22:00 04/05/18 06:24 Heparin - SQ 5,000 unit TID [facility] Administration Piperacillin Sod/Tazobactam 50 mls @ 100 mls/hr 04/04/18 18:00 04/05/18 01:37 Sod 2.25 gm/ Dextrose IVPB 100 mls/hr Q8H-IV [facility] Administration Protocol Sodium Chloride 1,000 mls @ 75 mls/hr 04/04/18 17:30 04/04/18 18:07 Normal Saline - IV 75 mls/hr ASDIR [facility] Administration Methylprednisolone Sodium Succinate 40 mg 04/04/18 18:00 04/05/18 02:31 Solu-Medrol - IVPUSH 40 mg Q8H-IV [facility] Administration Mupirocin 1 applic 04/04/18 22:00 04/04/18 22:05 Bactroban Ointment (For Decolonization) - NS 04/09/18 21:59 1 applic BID [facility] Administration ASSESSMENT/PLAN: 67F w/ pmhx of of HIV, asthma, and chronic pain who presented to the ED with worsening AMS x2 days admitted for AMS 2/2 hypoglycemia/seizure/encephalitis/ stroke/opiate overdose. Neurology -Awake and alert. NAD. -Hold off on lumbar puncture for now pt has clinically improved dramatically and is now back to baseline mental status, with no neck rigidity. -Neuro checks Q4H -Pt currently on Morphine 30 Q8H at home; AMS may be due to overdose, Utox + opiates. -Pt found to have fingerstick glucose at 26 prior to arrival; hypoglycemia could be cause of AMS, however pt not taking any diabetic meds. BGMs Q6H to avoid further hypoglycemic episodes. Cardiology #Elevated troponins likely 2/2 demand ischemia -Trops 3.25 >2.38 > 1.23 -Repeat trops ordered -Per cardio: Aspirin, Plavix, hold statin for now as LFTs are elevated, will need to start on BB; should also be in ACEi/ARB pending renal recovery. - Consult cardio for ? 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 She recently underwent a treadmill stress test that showed significant stenosis. Pt was scheduled for cardiac cath this . Pt also currently on Aspirin and Plavix. She is a heavy smoker, has severe CAD, PVD, and COPD. Recent Echo done by towboat captain showed EF of 55%. Dr. Amador also recently placed stents in her R leg this past month. Per daughter, pt had a triple cardiac bypass more than 10 years ago. Also clarified that pt does not currently have any cardiac stents. Pt does have stents in R leg due to PVD. Daughter was told by cardio that pt was recently taken off of Imdur as it has caused some symptoms of erratic behavior, like sleepwalking. Pulmonary #Acute hypercapneic/hypoxemic respiratory failure -AB.23/73.4/135/29.3 -Cont to monitor on Bipap #Aspiration PNA -CT chest showed extensive chronic lung dz with possible acute consolidation within the R lower lobe. -Given IV Vanc and Zosyn -ID recs GI #Transaminitis -Pt not currently complaining of abd pain. -AST/ALT 221/66, Alk P 77 -CTAP showed cholelithiasis. -FOBT (+), although Hgb is stable at 13.4. -Stool cx, C. diff toxin/Ag, stool ova/parasites, Cryptosporidium Ag ordered per ID -Consider GI consult Renal #KRISTIAN -BUN/Cr 70/2.3, improving since admission. #Hyperkalemia. Resolved. 4.8 today -Cont to monitor. recheck lytes in AM. ID #Sepsis 2/2 possible aspiration pna -empiric IV Zosyn 2.25gm given -ID consult ordered; Influenza screen neg; Bcx neg x24h, UCx neg -recheck CBC in AM -Lac 6.2 > 2.5 -NS @ 75 #HIV -Currently on triple therapy at home, Triumeq -CD4 ct 528 Prophylaxis DVT: Heparin 5000U SQ TID FEN -NS @ 75 -recheck lytes in AM, replete PRN -low fat/sodium controlled diet dispo -cont to monitor in ICU Visit type - Emergency Visit Emergency Visit: Yes ED Registration Date: 04/04/18 Care time: The patient presented to the Emergency Department on the above date and was hospitalized for further evaluation of their emergent condition. - New Patient This patient is new to me today: No - Critical Care Critical Care patient: Yes Total Critical Care Time (in minutes): 40 Critical Care Statement: The care of this patient involved high complexity decision making to prevent further life threatening deterioration of the patient 's condition and/or to evaluate & treat vital organ system(s) failure or risk of failure.
[2018-04-05] MEDS: ALBUTEROL SO4 2.5/IPRATROPIUM 0.5 INH SOL 3 ML VIAL.NEB. NEB SCH ×4 (08:00→20:40)
[2018-04-05] MEDS: SODIUM CHLORIDE 1,000 ML IV SCH ×2 (08:22→17:34)
[2018-04-05] MEDS: CLOPIDOGREL BISULFATE 75 MG TABLET (FP) PO SCH (10:07)
[2018-04-05] MEDS: ASPIRIN COATED 81 MG TABLET.EC PO SCH (10:08)
[2018-04-05] MEDS: MUPIROCIN 2% TOPICAL OINTMENT FOR DECOLONIZATION NS SCH ×2 (10:10→21:43)
[2018-04-05] MEDS: CARVEDILOL 6.25 MG TABLET (FP) PO SCH ×3 (10:12→21:43)
--- NOTE | 2018-04-05 12:20 | PN ---
Teaching Attending Note Name of Resident: Petrona Dailey ATTENDING PHYSICIAN STATEMENT I saw and evaluated the patient. I reviewed the resident's note and discussed the case with the resident. I agree with the resident's findings and plan as documented. SUBJECTIVE: Pt seen and examined in the ICU. Mental status improved, states breathing better. c/o suprapubic discomfort and diarrhea. CD4 count 583. OBJECTIVE: Vital Signs Period Temp Pulse Resp BP Sys/Buck Pulse Ox Last 24 Hr 97.8 F-99.6 F 96-103 - 127-145/80-94 97-99 Intake & Output 04/02/18 04/03/18 04/04/18 04/05/18 23:59 23:59 23:59 23:59 Intake Total 125 939 Output Total 100 Balance 25 939 Weight 56.6 kg 56.654 kg Gen: NAD in chair Heart: RRR Lung: decreased breath sounds at the bases Abd: soft, mild TTP suprapubic Ext: no edema CBC, BMP 04/05/18 05:30 04/05/18 05:30 Hepatic Panel Total Bilirubin 1.3 mg/dL (0.2-1) H 04/05/18 05:30 AST 324 U/L (15-37) H 04/05/18 05:30 ALT 138 U/L (13-61) H 04/05/18 05:30 Alkaline Phosphatase 64 U/L (45-117) 04/05/18 05:30 Albumin 2.9 g/dl (3.4-5.0) L 04/05/18 05:30 ABG Results ABG pH 7.28 (7.35-7.45) L 04/04/18 18:52 ABG pCO2 at Pt Temp 75.4 mmHg (35-45) H* 04/04/18 18:52 ABG pO2 at Pt Temp 113.0 mmHg (80-100) H D 04/04/18 18:52 ABG HCO3 34.3 meq/L (22-26) H 04/04/18 18:52 ABG O2 Sat (Measured) 97.3 % (90-98.9) 04/04/18 18:52 ABG O2 Content 17.4 % vol (15-22) 04/04/18 18:52 ABG Base Excess 5.3 meq/l (-2-2) H 04/04/18 18:52 Active Medications Albuterol Sulfate (Ventolin 0.083% Nebulizer Soln -) 1 amp NEB Q4H PRN PRN Reason: SHORT OF BREATH/WHEEZING Albuterol/Ipratropium (Duoneb -) 1 amp NEB RQID [facility] [place] Last Admin: 04/05/18 11:49 Dose: 1 amp Aspirin (Ecotrin -) 81 mg PO DAILY [facility] [place] Last Admin: 04/05/18 10:08 Dose: Not Given Carvedilol (Coreg -) 6.25 mg PO BID [facility] [place] Last Admin: 04/05/18 10:12 Dose: 6.25 mg Chlorhexidine Gluconate (Hibiclens For Decolonization -) 1 applic TP HS [facility] [place] Last Admin: 04/04/18 22:05 Dose: Not Given Clopidogrel Bisulfate (Plavix -) 75 mg PO DAILY [facility] [place] Last Admin: 04/05/18 10:07 Dose: Not Given Heparin Sodium (Porcine) (Heparin -) 5,000 unit SQ TID [facility] [place] Last Admin: 04/05/18 06:24 Dose: 5,000 unit Piperacillin Sod/Tazobactam (Sod 2.25 gm/ Dextrose) 50 mls @ 100 mls/hr IVPB Q8H-IV [facility] [place]; Protocol Last Admin: 04/05/18 10:11 Dose: 100 mls/hr Sodium Chloride (Normal Saline -) 1,000 mls @ 75 mls/hr IV ASDIR [facility] [place] Last Admin: 04/05/18 08:22 Dose: 75 mls/hr Methylprednisolone Sodium Succinate (Solu-Medrol -) 40 mg IVPUSH Q8H-IV [facility] [place] Last Admin: 04/05/18 10:11 Dose: 40 mg Mupirocin (Bactroban Ointment (For Decolonization) -) 1 applic NS BID [facility] [place] Stop: 04/09/18 21:59 Last Admin: 04/05/18 10:10 Dose: 1 applic ASSESSMENT AND PLAN: Altered Mental Status improved Acute on Chronic Hypoxic and Hypercapneic Respiratory Failure Acute COPD Exacerbation Pneumonia Severe Sepsis Lactic Acidosis Acute Kidney Injury Elevated LFTs +Troponins likely Demand Ischemia CAD s/p CABG HIV - continue antibiotics - bladder scan, han placement if residual POV - continue medrol - inhaled bronchodilators - O2 to keep SpO2 >90% - BiPAP as needed to assist in work of breathing - repeat ABG - ASA, plavix - beta jaqui - d/w cardiology re: anticoagulation - trend LFTs - PO as tolerated - DVT prophylaxis - can monitor on telemetry if ABG improved critical care time spent in reviewing chart, evaluating patient and formulating plan 35 min
--- NOTE | 2018-04-05 12:26 | EKG ---
Test Reason : Blood Pressure : / mmHG Vent. Rate : 101 BPM Atrial Rate : 101 BPM P-R Int : 158 ms QRS Dur : 100 ms QT Int : 372 ms P-R-T Axes : 069 023 104 degrees QTc Int : 482 ms SINUS TACHYCARDIA CANNOT RULE OUT INFERIOR INFARCT , AGE UNDETERMINED POOR R WAVE PROGRESSION ABNORMAL ECG Confirmed by MD SUSHANT, YOVANA ([id number]) on 04/05/2018 12:25:50 PM [facility] Confirmed By:YOVANA CANCHOLA MD
[2018-04-05 12:35] LABS: ARTERIAL BLOOD GAS BASE EXCESS 1.2 meq/l (-2-2); ARTERIAL BLOOD GAS PO2 70.9 mmHg (80-100); ARTERIAL BLOOD GAS pH 7.26 (7.35-7.45)
[2018-04-05 12:41] LABS: ALLENS TEST POSITIVE
[2018-04-05 12:43] LABS: ARTERIAL BLOOD GAS PCO2 69.5 mmHg (35-45)
[2018-04-05] MEDS ORDERED: HEMOQUE TEST 1 EACH EACH ONE (13:08)
--- NOTE | 2018-04-05 13:38 | PN ---
Progress Note, Physician History of Present Illness: patient looks much better more awake and alert daughter in room ct scan seen - Current Medication List Current Medications: Active Medications Albuterol Sulfate (Ventolin 0.083% Nebulizer Soln -) 1 amp NEB Q4H PRN PRN Reason: SHORT OF BREATH/WHEEZING Albuterol/Ipratropium (Duoneb -) 1 amp NEB RQID [facility] Last Admin: 04/05/18 11:49 Dose: 1 amp Aspirin (Ecotrin -) 81 mg PO DAILY [facility] Last Admin: 04/05/18 10:08 Dose: Not Given Carvedilol (Coreg -) 6.25 mg PO BID [facility] Last Admin: 04/05/18 10:12 Dose: 6.25 mg Chlorhexidine Gluconate (Hibiclens For Decolonization -) 1 applic TP HS [facility] Last Admin: 04/04/18 22:05 Dose: Not Given Clopidogrel Bisulfate (Plavix -) 75 mg PO DAILY [facility] Last Admin: 04/05/18 10:07 Dose: Not Given Heparin Sodium (Porcine) (Heparin -) 5,000 unit SQ TID [facility] Last Admin: 04/05/18 06:24 Dose: 5,000 unit Piperacillin Sod/Tazobactam (Sod 2.25 gm/ Dextrose) 50 mls @ 100 mls/hr IVPB Q8H-IV [facility]; Protocol Last Admin: 04/05/18 10:11 Dose: 100 mls/hr Sodium Chloride (Normal Saline -) 1,000 mls @ 75 mls/hr IV ASDIR [facility] Last Admin: 04/05/18 08:22 Dose: 75 mls/hr Methylprednisolone Sodium Succinate (Solu-Medrol -) 40 mg IVPUSH Q8H-IV [facility] Last Admin: 04/05/18 10:11 Dose: 40 mg Mupirocin (Bactroban Ointment (For Decolonization) -) 1 applic NS BID [facility] Stop: 04/09/18 21:59 Last Admin: 04/05/18 10:10 Dose: 1 applic - Objective Vital Signs: Vital Signs Temperature 97.8 F 04/05/18 10:00 Pulse Rate 99 H 04/05/18 12:00 Respiratory Rate 16 04/05/18 12:00 Blood Pressure 144/94 04/05/18 12:00 O2 Sat by Pulse Oximetry (%) 97 04/05/18 03:20 Constitutional: Yes: No Distress, Calm HENT: Yes: Atraumatic, Normocephalic Cardiovascular: Yes: S1, S2 Respiratory: Yes: On BiPap, On Nasal O2, Poor Air Entry (at bases), Rhonchi Gastrointestinal: Yes: Normal Bowel Sounds, Soft, Other (dirrhoea) Musculoskeletal: Yes: WNL Extremities: Yes: WNL Neurological: Yes: Alert, Oriented Psychiatric: Yes: Alert, Oriented Labs: CBC, BMP 04/05/18 05:30 04/05/18 05:30 INR, PTT INR 1.89 (0.83-1.09) H 04/05/18 05:30 - ....Imaging Chest X-ray: Report Reviewed, Image Reviewed Cat Scan: Report Reviewed, Image Reviewed Assessment/Plan Altered Mental Status improved Acute on Chronic Hypoxic and Hypercapneic Respiratory Failure Acute COPD Exacerbation Pneumonia Severe Sepsis Lactic Acidosis Acute Kidney Injury Elevated LFTs +Troponins likely Demand Ischemia CAD s/p CABG HIV colitis plan we will continue zosyn await for o and p await for cdiff results consider starting HAART medications bipap if needed incentive anat cc 40 min
--- NOTE | 2018-04-05 18:15 | PN ---
Progress Note, Physician History of Present Illness: comfortable - Current Medication List Current Medications: Active Medications Abacavir Sulfate (Ziagen -) 600 mg PO DAILY [facility] Albuterol Sulfate (Ventolin 0.083% Nebulizer Soln -) 1 amp NEB Q4H PRN PRN Reason: SHORT OF BREATH/WHEEZING Albuterol/Ipratropium (Duoneb -) 1 amp NEB RQID [facility] Last Admin: 04/05/18 16:20 Dose: 1 amp Aspirin (Ecotrin -) 81 mg PO DAILY [facility] Last Admin: 04/05/18 10:08 Dose: Not Given Carvedilol (Coreg -) 6.25 mg PO BID [facility] Last Admin: 04/05/18 11:00 Dose: Not Given Chlorhexidine Gluconate (Hibiclens For Decolonization -) 1 applic TP HS [facility] Last Admin: 04/04/18 22:05 Dose: Not Given Clopidogrel Bisulfate (Plavix -) 75 mg PO DAILY [facility] Last Admin: 04/05/18 10:07 Dose: Not Given Heparin Sodium (Porcine) (Heparin -) 5,000 unit SQ TID [facility] Last Admin: 04/05/18 06:24 Dose: 5,000 unit Piperacillin Sod/Tazobactam (Sod 2.25 gm/ Dextrose) 50 mls @ 100 mls/hr IVPB Q8H-IV [facility]; Protocol Last Admin: 04/05/18 17:35 Dose: 100 mls/hr Sodium Chloride (Normal Saline -) 1,000 mls @ 75 mls/hr IV ASDIR [facility] Last Admin: 04/05/18 17:34 Dose: Not Given Lamivudine (Epivir -) 300 mg PO DAILY [facility] Methylprednisolone Sodium Succinate (Solu-Medrol -) 40 mg IVPUSH Q8H-IV [facility] Last Admin: 04/05/18 17:35 Dose: 40 mg Mupirocin (Bactroban Ointment (For Decolonization) -) 1 applic NS BID [facility] Stop: 04/09/18 21:59 Last Admin: 04/05/18 10:10 Dose: 1 applic - Objective Vital Signs: Vital Signs Temperature 97.6 F 04/05/18 14:00 Pulse Rate 99 H 04/05/18 18:00 Respiratory Rate 18 04/05/18 18:00 Blood Pressure 140/100 04/05/18 18:00 O2 Sat by Pulse Oximetry (%) 97 04/05/18 03:20 Constitutional: Yes: No Distress HENT: Yes: Atraumatic Neck: Yes: Supple Cardiovascular: Yes: Regular Rate and Rhythm Respiratory: Yes: CTA Bilaterally Gastrointestinal: Yes: Normal Bowel Sounds Extremities: Yes: WNL Edema: No Neurological: Yes: Alert, Oriented Labs: CBC, BMP 04/05/18 05:30 04/05/18 05:30 INR, PTT INR 1.89 (0.83-1.09) H 04/05/18 05:30 Problem List - Problems (1) Acute hypercapnic respiratory failure Assessment/Plan: on room air Code(s): J96.02 - ACUTE RESPIRATORY FAILURE WITH HYPERCAPNIA (2) Acute kidney injury Assessment/Plan: iv hydration improving Code(s): N17.9 - ACUTE KIDNEY FAILURE, UNSPECIFIED (3) Altered mental status Assessment/Plan: alert and oriented Code(s): R41.82 - ALTERED MENTAL STATUS, UNSPECIFIED Qualifiers: Qualified Code(s): R41.0 - Disorientation, unspecified (4) Aspiration pneumonia Assessment/Plan: on iv abx Code(s): J69.0 - PNEUMONITIS DUE TO INHALATION OF FOOD AND VOMIT Qualifiers: Qualified Code(s): J69.0 - Pneumonitis due to inhalation of food and vomit (5) Asthma Assessment/Plan: duo nebs prn Code(s): J45.909 - UNSPECIFIED ASTHMA, UNCOMPLICATED (6) HIV Assessment/Plan: on meds (7) Neuropathy Code(s): G62.9 - POLYNEUROPATHY, UNSPECIFIED (8) Demand ischemia Code(s): I24.8 - OTHER FORMS OF ACUTE ISCHEMIC HEART DISEASE Assessment/Plan cc time 35 min
[2018-04-05] MEDS: CHLORHEXIDINE GLUCONATE 4% CLEANSER FOR DECOLONIZATION TP SCH (21:46)
[2018-04-06] MEDS ORDERED: PIPERACILLIN/TAZOBACTAM 2.25 GM VIAL IVPB ONE ×3 (00:58→17:49)
[2018-04-06] MEDS ORDERED: DEXTROSE 5%-WATER - 50 ML IVPB ONE ×3 (00:58→17:49)
[2018-04-06] MEDS: PIPERACILLIN/TAZOB 2.25 GM 2.25 GM in DEXTROSE 5%-WATER - 50 ML IVPB SCH ×4 (02:04→18:16)
[2018-04-06] MEDS: methylPREDNISolone NA SUCC 40 MG/1 ML VIAL IVPUSH SCH ×4 (02:04→18:16)
[2018-04-06] MEDS ORDERED: LABETALOL HCL 5 MG/1 ML (100MG/20 ML VIAL) IVPUSH ONE (03:00)
[2018-04-06 06:31] LABS: BASO % 0.2 % (0-2.0); HEMATOCRIT 40.1 % (32.4-45.2); HEMOGLOBIN 12.8 GM/dL (10.7-15.3); LYMPH % 1.5 % (8-40); MCH 31.8 pg (25.7-33.7); MCHC 31.8 g/dl (32.0-36.0); MEAN CELL VOLUME 99.8 fl (80-96); MEAN PLT VOLUME 7.4 fl (7.5-11.1); MONO % 5.8 % (3.8-10.2); NEUT % 92.5 % (42.8-82.8); PLATELET COUNT 164 K/MM3 (134-434); RBC 4.02 M/mm3 (3.60-5.2); RDW 14.2 % (11.6-15.6)
[2018-04-06] MEDS: ALBUTEROL SO4 2.5/IPRATROPIUM 0.5 INH SOL 3 ML VIAL.NEB. NEB SCH ×4 (07:04→20:21)
[2018-04-06 07:08] LABS: ARTERIAL BLD GAS O2 SATURATION 88.2 % (90-98.9); ARTERIAL BLOOD GAS BASE EXCESS 2.6 meq/l (-2-2); ARTERIAL BLOOD GAS PCO2 58.9 mmHg (35-45); ARTERIAL BLOOD GAS PO2 59.8 mmHg (80-100); ARTERIAL BLOOD GAS pH 7.32 (7.35-7.45)
--- NOTE | 2018-04-06 08:01 | PN ---
Physical Exam: SUBJECTIVE: Patient seen and examined at bedside. Pt complaining of a productive cough. denies chest pain, sob, headache/dizziness. Pt also complains of non-radiating abdominal pain worse in the right upper quadrant, and after eating; but relieved when not eating. Pain is described as being tight and is rated 10/10. OBJECTIVE: Vital Signs Period Temp Pulse Resp BP Sys/Buck Pulse Ox Last 24 Hr 97.2 F-98.1 F 75-102 13-109 121-169/76-112 98-100 GENERAL: On NC. AAOx3. NAD. Resting comfortably. HEENT: Normal with no signs of trauma. KEHINDE. Dry mucus membranes. NECK: Supple. No LAD/JVD. LUNGS: Diminished breath sounds b/l. Symmetric chest rise. HEART: RRR. Normal S1, S2. No murmurs noted. ABDOMEN: Soft, tender in RUQ. +BS in all 4Qs. MUSCULOSKELETAL: No peripheral edema noted. NEUROLOGICAL: Responds to commands. CN II-XII intact. SKIN: surgical scar in inner thigh of R leg and midline of sternum. Laboratory Results - last 24 hr 04/04/18 04/05/18 04/05/18 12:33 05:30 12:27 WBC 18.5 H RBC Hgb Hct MCV MCH MCHC RDW Plt Count MPV Absolute Neuts (auto) Absolute Lymphs (auto) 1.9 Neutrophils % Lymphocytes % Monocytes % Eosinophils % Basophils % Nucleated RBC % Lymphocytes 11 Nucleated RBCs 2 H Anticoagulation Therapy Puncture Site Left radial ABG pH 7.26 L ABG pCO2 at Pt Temp 69.5 H* ABG pO2 at Pt Temp 70.9 L D ABG HCO3 29.8 H ABG O2 Sat (Measured) 91.0 ABG O2 Content 16.6 ABG Base Excess 1.2 Trevor Test Positive O2 Delivery Device Nasal cannula Oxygen Flow Rate 5l Vent Mode Vent Rate Mechanical Rate No PEEP 0.0 Pressure Support Vent POC Glucometer Hemoglobin A1c % 5.1 Creatine Kinase Creatine Kinase Index CK-MB (CK-2) Troponin I Absolute CD3 Count 1189 % CD3+ Lymphocytes 62.6 Absolute CD4 [place] 583 % CD4+ Lymphocyte 30.7 L CD4/CD8 Ratio 0.94 % CD8+ Lymphocyte 32.6 Absolute CD8 Count 619 04/05/18 04/05/18 04/05/18 13:13 17:30 18:28 WBC RBC Hgb Hct MCV MCH MCHC RDW Plt Count MPV Absolute Neuts (auto) Absolute Lymphs (auto) Neutrophils % Lymphocytes % Monocytes % Eosinophils % Basophils % Nucleated RBC % Lymphocytes Nucleated RBCs Anticoagulation Therapy Puncture Site ABG pH ABG pCO2 at Pt Temp ABG pO2 at Pt Temp ABG HCO3 ABG O2 Sat (Measured) ABG O2 Content ABG Base Excess Trevor Test O2 Delivery Device Oxygen Flow Rate Vent Mode Vent Rate Mechanical Rate PEEP Pressure Support Vent POC Glucometer 164.03308 241.42577 Hemoglobin A1c % Creatine Kinase 1244 H Creatine Kinase Index 0.7 CK-MB (CK-2) 9.7 H Troponin I 0.60 H Absolute CD3 Count % CD3+ Lymphocytes Absolute CD4 [place] % CD4+ Lymphocyte CD4/CD8 Ratio % CD8+ Lymphocyte Absolute CD8 Count 04/05/18 04/06/18 04/06/18 21:46 05:30 06:30 WBC 17.0 H RBC 4.02 Hgb 12.8 Hct 40.1 MCV 99.8 H MCH 31.8 MCHC 31.8 L RDW 14.2 Plt Count 164 D MPV 7.4 L Absolute Neuts (auto) 15.8 H Absolute Lymphs (auto) Neutrophils % 92.5 H Lymphocytes % 1.5 L D Monocytes % 5.8 Eosinophils % 0.0 Basophils % 0.2 Nucleated RBC % 1 H Lymphocytes Nucleated RBCs Anticoagulation Therapy No Result Required. Puncture Site Right radial ABG pH 7.32 L ABG pCO2 at Pt Temp 58.9 H ABG pO2 at Pt Temp 59.8 L ABG HCO3 29.6 H ABG O2 Sat (Measured) 88.2 L ABG O2 Content 15.7 ABG Base Excess 2.6 H Trevor Test No Result Required. O2 Delivery Device N/c Oxygen Flow Rate 4l/pm Vent Mode No Result Required. Vent Rate No Result Required. Mechanical Rate No Result Required. PEEP Pressure Support Vent No Result Required. POC Glucometer [phone] Hemoglobin A1c % Creatine Kinase Creatine Kinase Index CK-MB (CK-2) Troponin I Absolute CD3 Count % CD3+ Lymphocytes Absolute CD4 [place] % CD4+ Lymphocyte CD4/CD8 Ratio % CD8+ Lymphocyte Absolute CD8 Count Active Medications Generic Name Dose Route Start Last Admin Trade Name Freq PRN Reason Stop Dose Admin Abacavir Sulfate 600 mg 04/06/18 10:00 Ziagen - PO DAILY [facility] Albuterol Sulfate 1 amp 04/04/18 17:40 Ventolin 0.083% Nebulizer Soln - NEB Q4H PRN SHORT OF BREATH/WHEEZING Albuterol/Ipratropium 1 amp 04/04/18 20:00 04/06/18 07:04 Duoneb - NEB 1 amp RQID [facility] Administration Aspirin 81 mg 04/05/18 10:00 04/05/18 10:08 Ecotrin - PO Not Given DAILY [facility] Carvedilol 6.25 mg 04/05/18 10:00 04/05/18 21:43 Coreg - PO 6.25 mg BID [facility] Administration Chlorhexidine Gluconate 1 applic 04/04/18 22:00 04/05/18 21:46 Hibiclens For Decolonization - TP Not Given HS [facility] Clopidogrel Bisulfate 75 mg 04/05/18 10:00 04/05/18 10:07 Plavix - PO Not Given DAILY [facility] Heparin Sodium (Porcine) 5,000 unit 04/04/18 22:00 04/05/18 06:24 Heparin - SQ 5,000 unit TID [facility] Administration Piperacillin Sod/Tazobactam 50 mls @ 100 mls/hr 04/04/18 18:00 04/06/18 02:04 Sod 2.25 gm/ Dextrose IVPB 100 mls/hr Q8H-IV [facility] Administration Protocol Sodium Chloride 1,000 mls @ 75 mls/hr 04/04/18 17:30 04/05/18 17:34 Normal Saline - IV Not Given ASDIR [facility] Lamivudine 300 mg 04/06/18 10:00 Epivir - PO DAILY [facility] Methylprednisolone Sodium Succinate 40 mg 04/04/18 18:00 04/06/18 02:04 Solu-Medrol - IVPUSH 40 mg Q8H-IV [facility] Administration Mupirocin 1 applic 04/04/18 22:00 04/05/18 21:43 Bactroban Ointment (For Decolonization) - NS 04/09/18 21:59 1 applic BID [facility] Administration ASSESSMENT/PLAN: 67F w/ pmhx of of HIV, asthma, and chronic pain who presented to the ED with worsening AMS x2 days admitted for AMS 2/2 hypoglycemia/seizure/encephalitis/ stroke/opiate overdose. Neurology #Acute Metabolic Encephalopathy -Mental status back to baseline. Awake and alert. NAD. -Neuro checks Q4H -Pt currently on Morphine 30 Q8H at home; AMS may be due to overdose, Utox + opiates. -Pt found to have fingerstick glucose at 26 prior to arrival; hypoglycemia could be cause of AMS, however pt not taking any diabetic meds. BGMs Q6H to avoid further hypoglycemic episodes. Cardiology #Elevated troponins likely 2/2 demand ischemia -Trops 3.25 >2.38 > 1.23 -Repeat trops ordered -Per cardio: Aspirin, Plavix, hold statin for now as LFTs are elevated, will need to start on BB; should also be in ACEi/ARB pending renal recovery. Spoke with pt's asset accountant, Dr. Amador regarding pt's cardiac hx. She recently underwent a treadmill stress test that showed significant stenosis. Pt was scheduled for cardiac cath this . Pt also currently on Aspirin and Plavix. She is a heavy smoker, has severe CAD, PVD, and COPD. Recent Echo done by asset accountant showed EF of 55%. Dr. Amador also recently placed stents in her R leg this past month. Per daughter, pt had a triple cardiac bypass more than 10 years ago. Also clarified that pt does not currently have any cardiac stents. Pt does have stents in R leg due to PVD. Daughter was told by cardio that pt was recently taken off of Imdur as it has caused some symptoms of erratic behavior, like sleepwalking. Pulmonary #Acute hypercapneic/hypoxemic respiratory failure -ABG improved: 7.32/58.9/135/29.3 -Cont to monitor on Bipap #Aspiration PNA -CT chest showed extensive chronic lung dz with possible acute consolidation within the R lower lobe. -Given IV Vanc and Zosyn -ID recs #severe COPD/Asthma -BiPAP at night, NC during day -Solumedrol, nebs, albuterol -Robitussin AC for cough GI #Abdominal pain 2/2 biliary colic/GERD -Pt currently complaining of RUQ pain after eating -AST/ALT 299/206, Alk P 64 -Abd U/s showed cholelithiasis. -Stool cx, C. diff toxin/Ag, stool ova/parasites ordered -Cryptosporidium Ag neg -Protonix, Mylanta ordered; Will reassess patient -Surgery consult ordered due to cholelithiasis seen on U/S, and pt clinically symptomatic with persistently elevated LFTs. Renal #KRISTIAN -BUN/Cr 55/1.5, improving since admission. #Hyperkalemia. Resolved. 4.7 today -Cont to monitor. recheck lytes in AM. ID #Sepsis 2/2 possible aspiration pna -empiric IV Zosyn 2.25gm given -ID consult ordered; Influenza screen neg; Bcx neg x24h, UCx neg -recheck CBC in AM -NS @ 75 #HIV -Currently on triple therapy at home, Triumeq -CD4 ct 528 Prophylaxis DVT: Heparin 5000U SQ TID FEN -NS @ 75 -recheck lytes in AM, replete PRN -low fat/sodium controlled diet dispo -transfer to med-surg Visit type - Emergency Visit Emergency Visit: Yes ED Registration Date: 04/04/18 Care time: The patient presented to the Emergency Department on the above date and was hospitalized for further evaluation of their emergent condition. - New Patient This patient is new to me today: No - Critical Care Critical Care patient: Yes Total Critical Care Time (in minutes): 40 Critical Care Statement: The care of this patient involved high complexity decision making to prevent further life threatening deterioration of the patient 's condition and/or to evaluate & treat vital organ system(s) failure or risk of failure.
[2018-04-06 08:35] LABS: ALK PHOS 64 U/L (45-117); ANION GAP 3 MMOL/L (8-16); BLOOD UREA NITROGEN 55 mg/dL (7-18); CALCIUM 7.7 mg/dL (8.5-10.1); CHLORIDE 104 mmol/L (98-107); CO2 33 mmol/L (21-32); CREATININE 1.5 mg/dL (0.55-1.3); GLUCOSE,RANDOM 161 mg/dL (74-106); MAGNESIUM 1.9 mg/dL (1.8-2.4); PHOSPHOROUS 2.6 mg/dL (2.5-4.9); POTASSIUM 4.7 mmol/L (3.5-5.1); SGOT/AST 299 U/L (15-37); SGPT/ALT 206 U/L (13-61); SODIUM 140 mmol/L (136-145)
[2018-04-06] MEDS ORDERED: PT OWN MED DRAWER 7, Y5N ONE (09:21)
[2018-04-06] MEDS: CLOPIDOGREL BISULFATE 75 MG TABLET (FP) PO SCH (09:30)
[2018-04-06] MEDS: CARVEDILOL 6.25 MG TABLET (FP) PO SCH ×2 (09:30→22:21)
[2018-04-06] MEDS: ASPIRIN COATED 81 MG TABLET.EC PO SCH (09:30)
[2018-04-06] MEDS ORDERED: DOLUTEGRAVIR SODIUM 50 MG TABLET (NON-FORMULARY) PO SCH (10:00)
[2018-04-06] MEDS ORDERED: ABACAVIR SULFATE 300 MG TABLET PO SCH (10:00)
[2018-04-06] MEDS: MUPIROCIN 2% TOPICAL OINTMENT FOR DECOLONIZATION NS SCH (10:27)
[2018-04-06 11:31] LABS: ANISOCYTOSIS 2+; MACROCYTOSIS 0; OVALOCYTE 1+; PLATELET ESTIMATE NORMAL; TARGET CELLS 1+; TEAR DROP CELLS 1+
--- NOTE | 2018-04-06 11:33 | PN ---
Teaching Attending Note Name of Resident: Petrona Dailey ATTENDING PHYSICIAN STATEMENT I saw and evaluated the patient. I reviewed the resident's note and discussed the case with the resident. I agree with the resident's findings and plan as documented. SUBJECTIVE: Pt seen and examined in the ICU. Breathing continues to improve. Still with diffuse abdominal pain. No fevers recorded. OBJECTIVE: Vital Signs Period Temp Pulse Resp BP Sys/Buck Pulse Ox Last 24 Hr 97.2 F-98.4 F 74-102 13-109 121-169/76-112 95-100 Intake & Output 04/03/18 04/04/18 04/05/18 04/06/18 23:59 23:59 23:59 23:59 Intake Total 125 2264 625 Output Total 100 Balance 25 2264 625 Weight 56.6 kg 56.654 kg 58.876 kg Gen: less tachypneic Heart: RRR Lung: decreased breath sounds at the bases Abd: soft, nontender Ext: no edema CBC, BMP 04/06/18 05:30 04/06/18 06:00 Active Medications Abacavir Sulfate (Ziagen -) 600 mg PO DAILY [facility] Last Admin: 04/06/18 10:28 Dose: 600 mg Albuterol Sulfate (Ventolin 0.083% Nebulizer Soln -) 1 amp NEB Q4H PRN PRN Reason: SHORT OF BREATH/WHEEZING Albuterol/Ipratropium (Duoneb -) 1 amp NEB RQID [facility] Last Admin: 04/06/18 07:04 Dose: 1 amp Aspirin (Ecotrin -) 81 mg PO DAILY [facility] Last Admin: 04/06/18 09:30 Dose: 81 mg Carvedilol (Coreg -) 6.25 mg PO BID [facility] Last Admin: 04/06/18 09:30 Dose: 6.25 mg Chlorhexidine Gluconate (Hibiclens For Decolonization -) 1 applic TP HS [facility] Last Admin: 04/05/18 21:46 Dose: Not Given Clopidogrel Bisulfate (Plavix -) 75 mg PO DAILY [facility] Last Admin: 04/06/18 09:30 Dose: 75 mg Heparin Sodium (Porcine) (Heparin -) 5,000 unit SQ TID [facility] Last Admin: 04/05/18 06:24 Dose: 5,000 unit Piperacillin Sod/Tazobactam (Sod 2.25 gm/ Dextrose) 50 mls @ 100 mls/hr IVPB Q8H-IV [facility]; Protocol Last Admin: 04/06/18 09:30 Dose: 100 mls/hr Sodium Chloride (Normal Saline -) 1,000 mls @ 75 mls/hr IV [facility] Last Admin: 04/05/18 17:34 Dose: Not Given Lamivudine (Epivir -) 300 mg PO DAILY [facility] Last Admin: 04/06/18 09:30 Dose: 300 mg Methylprednisolone Sodium Succinate (Solu-Medrol -) 40 mg IVPUSH Q8H-IV [facility] Last Admin: 04/06/18 09:30 Dose: 40 mg Mupirocin (Bactroban Ointment (For Decolonization) -) 1 applic NS BID [facility] Stop: 04/09/18 21:59 Last Admin: 04/06/18 10:27 Dose: 1 applic ASSESSMENT AND PLAN: Altered Mental Status improving Acute on Chronic Hypoxic and Hypercapneic Respiratory Failure Acute COPD Exacerbation Pneumonia Severe Sepsis Lactic Acidosis Acute Kidney Injury Elevated LFTs +Troponins likely Demand Ischemia CAD s/p CABG HIV - continue antibiotics - continue medrol - inhaled bronchodilators - O2 to keep SpO2 >90% - BiPAP as needed to assist in work of breathing - ASA, plavix - beta jaqui - trend LFTs - PO as tolerated - DVT prophylaxis - can monitor on floor - when ready for discharge, will need to check ambulatory SpO2 on room air to assess for home O2 critical care time spent in reviewing chart, evaluating patient and formulating plan 35 min
[2018-04-06] MEDS ORDERED: guaiFENesin/CODEINE 10 ML UNIT-DOSE CUPS PO ONE (11:50)
[2018-04-06] MEDS ORDERED: MAG HYDROX/AL HYDROX/SIMETH 30 ML UNIT-DOSE CUP PO ONE (12:36)
[2018-04-06] MEDS ORDERED: PANTOPRAZOLE 40 MG TABLET (FP) PO ONE (12:36)
[2018-04-06 13:41] VITALS: BMI 23.7
--- NOTE | 2018-04-06 13:59 | PN ---
Progress Note, Physician History of Present Illness: c/o of abd pain otherwise looks s table says pain is bad breathing well - Current Medication List Current Medications: Active Medications Abacavir Sulfate (Ziagen -) 600 mg PO DAILY [facility] Last Admin: 04/06/18 10:28 Dose: 600 mg Albuterol Sulfate (Ventolin 0.083% Nebulizer Soln -) 1 amp NEB Q4H PRN PRN Reason: SHORT OF BREATH/WHEEZING Albuterol/Ipratropium (Duoneb -) 1 amp NEB RQID [facility] Last Admin: 04/06/18 11:05 Dose: 1 amp Aspirin (Ecotrin -) 81 mg PO DAILY [facility] Last Admin: 04/06/18 09:30 Dose: 81 mg Carvedilol (Coreg -) 6.25 mg PO BID [facility] Last Admin: 04/06/18 09:30 Dose: 6.25 mg Chlorhexidine Gluconate (Hibiclens For Decolonization -) 1 applic TP HS [facility] Last Admin: 04/05/18 21:46 Dose: Not Given Clopidogrel Bisulfate (Plavix -) 75 mg PO DAILY [facility] Last Admin: 04/06/18 09:30 Dose: 75 mg Heparin Sodium (Porcine) (Heparin -) 5,000 unit SQ TID [facility] Last Admin: 04/05/18 06:24 Dose: 5,000 unit Piperacillin Sod/Tazobactam (Sod 2.25 gm/ Dextrose) 50 mls @ 100 mls/hr IVPB Q8H-IV [facility]; Protocol Last Admin: 04/06/18 09:30 Dose: 100 mls/hr Sodium Chloride (Normal Saline -) 1,000 mls @ 75 mls/hr IV [facility] Last Admin: 04/05/18 17:34 Dose: Not Given Lamivudine (Epivir -) 300 mg PO DAILY [facility] Last Admin: 04/06/18 09:30 Dose: 300 mg Methylprednisolone Sodium Succinate (Solu-Medrol -) 40 mg IVPUSH Q8H-IV [facility] Last Admin: 04/06/18 09:30 Dose: 40 mg Mupirocin (Bactroban Ointment (For Decolonization) -) 1 applic NS BID [facility] Stop: 04/09/18 21:59 Last Admin: 04/06/18 10:27 Dose: 1 applic - Objective Vital Signs: Vital Signs Temperature 98.4 F 04/06/18 10:00 Pulse Rate 90 04/06/18 12:00 Respiratory Rate 20 04/06/18 12:00 Blood Pressure 147/92 04/06/18 12:00 O2 Sat by Pulse Oximetry (%) 95 04/06/18 09:00 Constitutional: Yes: Calm, Moderate Distress Cardiovascular: Yes: Regular Rate and Rhythm Respiratory: Yes: Regular, CTA Bilaterally Gastrointestinal: Yes: Normal Bowel Sounds, Soft, Tenderness Musculoskeletal: Yes: WNL Extremities: Yes: WNL Neurological: Yes: Alert, Oriented Psychiatric: Yes: Alert, Oriented Labs: CBC, BMP 04/06/18 05:30 04/06/18 06:00 INR, PTT INR 1.89 (0.83-1.09) H 04/05/18 05:30 Assessment/Plan Altered Mental Status improved Acute on Chronic Hypoxic and Hypercapneic Respiratory Failure Acute COPD Exacerbation Pneumonia Severe Sepsis Lactic Acidosis Acute Kidney Injury Elevated LFTs +Troponins likely Demand Ischemia CAD s/p CABG HIV colitis plan we will continue zosyn await for all results monitor abd pain wbc still high resolving rest as per the team consider doing imaging studies of the abdomen cc 40 min
[2018-04-06] MEDS ORDERED: MORPHINE SULFATE 2 MG/ML VIAL IVPUSH ONE (14:02)
[2018-04-06] MEDS: HEPARIN NA (PORCINE) 5,000 UNITS/ML 1ML VIAL SQ SCH ×2 (14:19→22:20)
--- NOTE | 2018-04-06 14:44 | CONSULT ---
Consult Consult Specialty:: General Surgery Reason for Consultation:: cholelithiasis and abdominal pain - History of Present Illness Chief Complaint: RUQ abdominal pain History of Present Illness: 67yo female PMH HIV, asthma and chronic pain presents with family for altered mental status worsening over the past 2 days. She was found by family to behave increasingly erratically, walking naked in the leaving room, etc. Found by EMS to be hypoxic, have fingerstick of 29, given 1g glucagon and 1L of D10, repeat fs of 89. 100% on NR, mid 80's on room air. Patient was originally unresponsive but then arousable to pain. Leukocytosis was noted, and abdominal workup had an incidental finding of cholelithiasis in a contracted gallbladder. - History Source History Provided By: Patient, Medical Record Limitations to Obtaining History: No Limitations - Past Medical History Pulmonary: Yes: Asthma Hepatobiliary: Yes: Cholelithiasis ...: No Infectious Disease: Yes: HIV - Alcohol/Substance Use Hx Alcohol Use: No - Smoking History Smoking history: Unknown if ever smoked Have you smoked in the past 12 months: No Aproximately how many cigarettes per day: 20 Home Medications - Allergies Allergies/Adverse Reactions: Allergies Allergy/AdvReac Type Severity Reaction Status Date / Time aspirin AdvReac Mild GI upset Verified 04/04/18 06:25 - Home Medications Home Medications: Ambulatory Orders Gabapentin [Neurontin -] 800 mg PO Q8H 04/04/18 Morphine *Sr* [Ms Contin -] 30 mg PO Q8H 04/04/18 Ranolazine [Ranexa -] 500 mg PO BID 04/04/18 Abacavir/Dolutegravir/Lamivudi [Triumeq Tablet] 1 each PO DAILY 04/05/18 Albuterol Sulfate Inhaler - [Ventolin Hfa Inhaler -] 2 inh PO DAILY 04/05/18 Alendronate Sodium/Vitamin D3 [Fosamax Plus D 70 mg-5,600 Iu vIT d] 1 each PO Q7D 04/05/18 Aspirin Coated [Ecotrin -] 81 mg PO DAILY 04/05/18 Calcium Carbonate/Vitamin D3 [Calcium 500-Vit D3 200 Caplet] 1 tab PO DAILY Clopidogrel Bisulfate [Plavix] 75 mg PO DAILY 04/05/18 Escitalopram Oxalate [Lexapro -] 10 mg PO DAILY 04/05/18 Fluticasone/Salmeterol [Advair Hfa 230-21 Mcg Inhaler] 2 puff IH BID 04/05/18 Gabapentin 800 mg PO TID 04/05/18 Morphine Sulfate 30 mg PO Q8H PRN 04/05/18 Multivitamin [One Daily] 1 each PO DAILY 04/05/18 Nicotine [Nicotrol Ns] 1 dose IH DAILY PRN 04/05/18 Pantoprazole Sodium [Protonix -] 20 mg PO DAILY 04/05/18 Simvastatin 10 mg PO DAILY 04/05/18 Review of Systems - Review of Systems Constitutional: reports: Loss of Appetite, Weakness. denies: Chills, Fever Eyes: denies: Blurred Vision HENT: denies: Difficult Swallowing, Nasal Congestion Neck: denies: Decreased ROM, Pain on Movement, Swollen Glands Cardiovascular: denies: Chest Pain, Palpitations Respiratory: reports: SOB, SOB on Exertion. denies: Cough Gastrointestinal: reports: Abdominal Pain, Constipation. denies: Diarrhea Genitourinary: reports: Flank Pain. denies: Discharge, Dysuria Breasts: reports: No Symptoms Reported. denies: Pain Musculoskeletal: denies: Extremity Pain, Muscle Weakness Integumentary: denies: Incision, Lump, Rash Neurological: reports: Confusion. denies: Seizure, Syncope Endocrine: reports: Unexplained Weight Gain. denies: Unexplained Weight Loss Hematology/Lymphatic: denies: Easily Bruised, Excessive Bleeding Psychiatric: denies: Anxiety, Depression, Panic Physical Exam Vital Signs: Vital Signs Temperature 98.4 F 04/06/18 10:00 Pulse Rate 75 04/06/18 14:00 Respiratory Rate 20 04/06/18 14:00 Blood Pressure 151/51 L 04/06/18 14:00 O2 Sat by Pulse Oximetry (%) 95 04/06/18 09:00 Constitutional: Yes: No Distress, Calm, Thin Eyes: Yes: Conjunctiva Clear, EOM Intact HENT: Yes: Atraumatic, Normocephalic Neck: Yes: Supple, Trachea Midline Cardiovascular: Yes: Regular Rate and Rhythm, S1, S2 Respiratory: Yes: Regular, CTA Bilaterally Gastrointestinal: Yes: Normal Bowel Sounds, Soft. No: Ascites, Distention, Hepatomegaly, Palpable Mass, Splenomegaly, Tenderness (negative murphys sign), Tenderness, Epigastrium, Tenderness, Rebound ...Rectal Exam: Yes: Deferred Renal/: No: CVA Tenderness - Left, CVA Tenderness - Right Musculoskeletal: No: Muscle Pain, Muscle Weakness Extremities: No: Cool, Cyanosis Edema: No Peripheral Pulses WNL: Yes Integumentary: No: Jaundice, Rash Neurological: Yes: Alert, Confusion. No: Oriented Labs: CBC, BMP 04/06/18 05:30 04/06/18 06:00 Imaging - Results Ultrasound: Report Reviewed, Image Reviewed (collapsed GB, cholelithiasis, no inflammatory changes) Problem List - Problems (1) Asymptomatic cholelithiasis Assessment/Plan: 67yo female MMP and possible acute aspiration pneumonia leading to hypoxemia, Likely no contribution of cholelithiasis to current acute presentation. No indication for acute surgical intervention Diet as tolerated MRCP for completed workup - will review results Low fat diet is recommended ID and hematology evalutations Recall surgery as needed Thank you for the opportunity to participate in the care of this patient. Code(s): K80.20 - CALCULUS OF GALLBLADDER W/O CHOLECYSTITIS W/O OBSTRUCTION (2) Acute hypercapnic respiratory failure Code(s): J96.02 - ACUTE RESPIRATORY FAILURE WITH HYPERCAPNIA (3) Altered mental status Code(s): R41.82 - ALTERED MENTAL STATUS, UNSPECIFIED Qualifiers: Altered mental status type: disorientation Qualified Code(s): R41.0 - Disorientation, unspecified (4) Aspiration pneumonia Code(s): J69.0 - PNEUMONITIS DUE TO INHALATION OF FOOD AND VOMIT Qualifiers: Aspiration pneumonia type: unspecified Laterality: right Lung location: lower lobe of lung Qualified Code(s): J69.0 - Pneumonitis due to inhalation of food and vomit
--- NOTE | 2018-04-06 16:02 | PN ---
Progress Note, Physician History of Present Illness: comfortable - Current Medication List Current Medications: Active Medications Abacavir Sulfate (Ziagen -) 600 mg PO DAILY [facility] Last Admin: 04/06/18 10:28 Dose: 600 mg Albuterol Sulfate (Ventolin 0.083% Nebulizer Soln -) 1 amp NEB Q4H PRN PRN Reason: SHORT OF BREATH/WHEEZING Albuterol/Ipratropium (Duoneb -) 1 amp NEB RQID [facility] Last Admin: 04/06/18 11:05 Dose: 1 amp Aspirin (Ecotrin -) 81 mg PO DAILY [facility] Last Admin: 04/06/18 09:30 Dose: 81 mg Carvedilol (Coreg -) 6.25 mg PO BID [facility] Last Admin: 04/06/18 09:30 Dose: 6.25 mg Chlorhexidine Gluconate (Hibiclens For Decolonization -) 1 applic TP HS [facility] Last Admin: 04/05/18 21:46 Dose: Not Given Clopidogrel Bisulfate (Plavix -) 75 mg PO DAILY [facility] Last Admin: 04/06/18 09:30 Dose: 75 mg Heparin Sodium (Porcine) (Heparin -) 5,000 unit SQ TID [facility] Last Admin: 04/06/18 14:19 Dose: 5,000 unit Piperacillin Sod/Tazobactam (Sod 2.25 gm/ Dextrose) 50 mls @ 100 mls/hr IVPB Q8H-IV [facility]; Protocol Last Admin: 04/06/18 09:30 Dose: 100 mls/hr Sodium Chloride (Normal Saline -) 1,000 mls @ 75 mls/hr IV ASDIR [facility] Last Admin: 04/05/18 17:34 Dose: Not Given Lamivudine (Epivir -) 300 mg PO DAILY [facility] Last Admin: 04/06/18 09:30 Dose: 300 mg Methylprednisolone Sodium Succinate (Solu-Medrol -) 40 mg IVPUSH Q8H-IV [facility] Last Admin: 04/06/18 09:30 Dose: 40 mg Mupirocin (Bactroban Ointment (For Decolonization) -) 1 applic NS BID [facility] Stop: 04/09/18 21:59 Last Admin: 04/06/18 10:27 Dose: 1 applic - Objective Vital Signs: Vital Signs Temperature 98.4 F 04/06/18 10:00 Pulse Rate 75 04/06/18 16:00 Respiratory Rate 18 04/06/18 16:00 Blood Pressure 152/96 04/06/18 16:00 O2 Sat by Pulse Oximetry (%) 95 04/06/18 09:00 Constitutional: Yes: No Distress HENT: Yes: Atraumatic Neck: Yes: Supple Cardiovascular: Yes: Regular Rate and Rhythm Respiratory: Yes: Rhonchi Gastrointestinal: Yes: Normal Bowel Sounds, Tenderness (Ruq ...mild) Extremities: Yes: WNL Edema: No Peripheral Pulses WNL: Yes Neurological: Yes: Alert, Oriented Labs: CBC, BMP 04/06/18 05:30 04/06/18 06:00 INR, PTT INR 1.89 (0.83-1.09) H 04/05/18 05:30 Problem List - Problems (1) Acute hypercapnic respiratory failure Assessment/Plan: on room air Code(s): J96.02 - ACUTE RESPIRATORY FAILURE WITH HYPERCAPNIA (2) Acute kidney injury Assessment/Plan: iv hydration improving Code(s): N17.9 - ACUTE KIDNEY FAILURE, UNSPECIFIED (3) Altered mental status Assessment/Plan: alert and oriented Code(s): R41.82 - ALTERED MENTAL STATUS, UNSPECIFIED Qualifiers: Altered mental status type: disorientation Qualified Code(s): R41.0 - Disorientation, unspecified (4) Aspiration pneumonia Assessment/Plan: on iv abx Code(s): J69.0 - PNEUMONITIS DUE TO INHALATION OF FOOD AND VOMIT Qualifiers: Aspiration pneumonia type: unspecified Laterality: right Lung location: lower lobe of lung Qualified Code(s): J69.0 - Pneumonitis due to inhalation of food and vomit (5) Asthma Assessment/Plan: duo nebs prn Code(s): J45.909 - UNSPECIFIED ASTHMA, UNCOMPLICATED (6) HIV Assessment/Plan: on meds (7) Neuropathy Code(s): G62.9 - POLYNEUROPATHY, UNSPECIFIED (8) Demand ischemia Assessment/Plan: follow up troponins trending down Code(s): I24.8 - OTHER FORMS OF ACUTE ISCHEMIC HEART DISEASE Assessment/Plan cc time 35 min
--- NOTE | 2018-04-06 16:27 | PN ---
Progress Note, Physician History of Present Illness: RUQ pain. - Current Medication List Current Medications: Active Medications Abacavir Sulfate (Ziagen -) 600 mg PO DAILY [facility] Last Admin: 04/06/18 10:28 Dose: 600 mg Albuterol Sulfate (Ventolin 0.083% Nebulizer Soln -) 1 amp NEB Q4H PRN PRN Reason: SHORT OF BREATH/WHEEZING Albuterol/Ipratropium (Duoneb -) 1 amp NEB RQID [facility] Last Admin: 04/06/18 11:05 Dose: 1 amp Aspirin (Ecotrin -) 81 mg PO DAILY [facility] Last Admin: 04/06/18 09:30 Dose: 81 mg Carvedilol (Coreg -) 6.25 mg PO BID [facility] Last Admin: 04/06/18 09:30 Dose: 6.25 mg Chlorhexidine Gluconate (Hibiclens For Decolonization -) 1 applic TP HS [facility] Last Admin: 04/05/18 21:46 Dose: Not Given Clopidogrel Bisulfate (Plavix -) 75 mg PO DAILY [facility] Last Admin: 04/06/18 09:30 Dose: 75 mg Heparin Sodium (Porcine) (Heparin -) 5,000 unit SQ TID [facility] Last Admin: 04/06/18 14:19 Dose: 5,000 unit Piperacillin Sod/Tazobactam (Sod 2.25 gm/ Dextrose) 50 mls @ 100 mls/hr IVPB Q8H-IV [facility]; Protocol Last Admin: 04/06/18 09:30 Dose: 100 mls/hr Sodium Chloride (Normal Saline -) 1,000 mls @ 75 mls/hr IV ASDIR [facility] Last Admin: 04/05/18 17:34 Dose: Not Given Lamivudine (Epivir -) 300 mg PO DAILY [facility] Last Admin: 04/06/18 09:30 Dose: 300 mg Methylprednisolone Sodium Succinate (Solu-Medrol -) 40 mg IVPUSH Q8H-IV [facility] Last Admin: 04/06/18 09:30 Dose: 40 mg Mupirocin (Bactroban Ointment (For Decolonization) -) 1 applic NS BID [facility] Stop: 04/09/18 21:59 Last Admin: 04/06/18 10:27 Dose: 1 applic - Objective Vital Signs: Vital Signs Temperature 98.4 F 04/06/18 10:00 Pulse Rate 75 04/06/18 16:00 Respiratory Rate 18 04/06/18 16:00 Blood Pressure 152/96 04/06/18 16:00 O2 Sat by Pulse Oximetry (%) 95 04/06/18 09:00 Constitutional: Yes: No Distress, Calm, Thin Neck: Yes: Supple Cardiovascular: Yes: Regular Rate and Rhythm Respiratory: Yes: Regular, Diminished Gastrointestinal: Yes: Normal Bowel Sounds, Soft, Tenderness (RUQ) Edema: No Labs: CBC, BMP 04/06/18 05:30 04/06/18 06:00 INR, PTT INR 1.89 (0.83-1.09) H 04/05/18 05:30 Problem List - Problems (1) Acute kidney injury Code(s): N17.9 - ACUTE KIDNEY FAILURE, UNSPECIFIED (2) Demand ischemia Code(s): I24.8 - OTHER FORMS OF ACUTE ISCHEMIC HEART DISEASE (3) Acute hypercapnic respiratory failure Code(s): J96.02 - ACUTE RESPIRATORY FAILURE WITH HYPERCAPNIA (4) Altered mental status Code(s): R41.82 - ALTERED MENTAL STATUS, UNSPECIFIED Qualifiers: Altered mental status type: disorientation Qualified Code(s): R41.0 - Disorientation, unspecified (6) Aspiration pneumonia Code(s): J69.0 - PNEUMONITIS DUE TO INHALATION OF FOOD AND VOMIT Qualifiers: Aspiration pneumonia type: unspecified Laterality: right Lung location: lower lobe of lung Qualified Code(s): J69.0 - Pneumonitis due to inhalation of food and vomit (7) Toxic metabolic encephalopathy Code(s): G92 - TOXIC ENCEPHALOPATHY Assessment/Plan 04/04/2018 Echo: Normal LV size and fxn, LVEF 50-55%, mild-mod RITIKA, mod-severe TR, mild MR 1. Altered mental status - toxic metabolic encephelopathy, resolving 2. Acute hypercapneic/hypoxic respiratory failure, resolving related to 3. Right lower lobe pneumonia with probable sepsis syndrome/Acute COPD Exacerbation 4. CAD with history of CABG for planned intervention evidence of ACS/demand ischemia angina pectoris 5. Systolic/diastolic LV dysfunction with class 0 NYHA classification LV failure 6. RV dysfunction with moderate degree of pulmonary hypertension 7. HTN 8. Hypercholesterolemia 9. Hyperglycemia, DM to be excluded 10. Acute on chronic kidney injury with resolved hyperkalemia 11. HIV 12. Acute hepatic injury PLAN: 1. Antibiotics as per the primary team 2. BiPAP as per ICU team, IV steroids, BD, O2 to keep SpO2 >90% 3. Carvedilol 6.25 bid hemodynamics permitting 4. Ideally should be on ACEI or ARBS pending renal function recovery 5. ASA 81 qd and Plavix 75 qd 6. Add Statins once LFT's normalize, U/S reviewed showing fatty liver 7. Obtain medical records specially cardiac history records from her physicians in [place], [place] 8. DVT prophylaxis
[2018-04-06] MEDS: SODIUM CHLORIDE 1,000 ML IV SCH ×2 (17:50→18:15)
[2018-04-06] MEDS ORDERED: ALBUTEROL SO4 0.083% IH SOL 2.5 MG/3 ML VIAL.NEB. NEB PRN (17:54)
[2018-04-06] MEDS: morphine SULFATE 4 MG/ML VIAL IVPUSH PRN (18:32)
[2018-04-06] MEDS ORDERED: MUPIROCIN 2% TOPICAL OINTMENT FOR DECOLONIZATION NS SCH (22:00)
[2018-04-07] MEDS ORDERED: DEXTROSE 5%-WATER - 50 ML IVPB ONE ×3 (02:02→19:12)
[2018-04-07] MEDS ORDERED: PIPERACILLIN/TAZOBACTAM 2.25 GM VIAL IVPB ONE ×4 (02:02→19:11)
[2018-04-07] MEDS: PIPERACILLIN/TAZOB 2.25 GM 2.25 GM in DEXTROSE 5%-WATER - 50 ML IVPB SCH ×3 (02:16→19:13)
[2018-04-07] MEDS: methylPREDNISolone NA SUCC 40 MG/1 ML VIAL IVPUSH SCH ×3 (02:16→17:13)
[2018-04-07] MEDS: morphine SULFATE 4 MG/ML VIAL IVPUSH PRN ×4 (04:53→22:44)
[2018-04-07] MEDS: SODIUM CHLORIDE 1,000 ML IV SCH ×2 (06:04→19:48)
[2018-04-07] MEDS: HEPARIN NA (PORCINE) 5,000 UNITS/ML 1ML VIAL SQ SCH ×3 (06:04→22:40)
[2018-04-07] MEDS: ALBUTEROL SO4 2.5/IPRATROPIUM 0.5 INH SOL 3 ML VIAL.NEB. NEB SCH ×4 (08:00→20:27)
[2018-04-07 08:35] LABS: BASO % 0.1 % (0-2.0); HEMATOCRIT 41.2 % (32.4-45.2); LYMPH % 2.1 % (8-40); MCH 31.5 pg (25.7-33.7); MCHC 31.5 g/dl (32.0-36.0); MEAN CELL VOLUME 99.9 fl (80-96); MEAN PLT VOLUME 7.6 fl (7.5-11.1); MONO % 5.8 % (3.8-10.2); PLATELET COUNT 165 K/MM3 (134-434); RBC 4.12 M/mm3 (3.60-5.2); RDW 14.4 % (11.6-15.6); WHITE BLOOD COUNT 15.6 K/mm3 (4.0-10.0)
[2018-04-07 09:05] LABS: ALBUMIN 3.1 g/dl (3.4-5.0); ALK PHOS 64 U/L (45-117); ANION GAP 6 MMOL/L (8-16); BILIRUBIN,TOTAL 1.1 mg/dL (0.2-1); BLOOD UREA NITROGEN 38 mg/dL (7-18); CALCIUM 8.3 mg/dL (8.5-10.1); CHLORIDE 108 mmol/L (98-107); CO2 30 mmol/L (21-32); GLUCOSE,RANDOM 146 mg/dL (74-106); POTASSIUM 4.2 mmol/L (3.5-5.1); SGOT/AST 232 U/L (15-37); SGPT/ALT 235 U/L (13-61); SODIUM 143 mmol/L (136-145); TOT PROT 6.1 g/dl (6.4-8.2)
[2018-04-07] MEDS ORDERED: PT OWN MED DRAWER 7, Y5N ONE ×2 (09:43→17:08)
[2018-04-07] MEDS: ABACAVIR SULFATE 300 MG TABLET PO SCH (10:15)
[2018-04-07] MEDS: lamiVUDine 150 MG TABLET PO SCH (10:15)
[2018-04-07] MEDS: CARVEDILOL 6.25 MG TABLET (FP) PO SCH ×2 (10:16→22:40)
[2018-04-07] MEDS: CLOPIDOGREL BISULFATE 75 MG TABLET (FP) PO SCH (10:16)
[2018-04-07] MEDS: ASPIRIN COATED 81 MG TABLET.EC PO SCH (10:16)
[2018-04-07] MEDS: DOLUTEGRAVIR SODIUM 50 MG TABLET (NON-FORMULARY) PO SCH (10:16)
[2018-04-07] MEDS: PANTOPRAZOLE 40 MG TABLET (FP) PO SCH (10:25)
[2018-04-07 11:41] LABS: ANISOCYTOSIS 1+; MACROCYTOSIS 1+
--- NOTE | 2018-04-07 12:01 | PN ---
Progress Note (short form) - Note Progress Note: Sitting on the edge of the bed. Mildly tachypneic on VM O2. Refused NIPPV support overnight. Still with diffuse abdominal pain. OBJECTIVE: Intake & Output 04/04/18 04/05/18 04/06/18 04/07/18 23:59 23:59 23:59 23:59 Intake Total 125 2264 1989 122 Output Total 100 Balance 25 2264 1989 1225 Weight 124 lb 12.506 oz 124 lb 14.4 oz 129 lb 12.8 oz Last Vital Signs Temp Pulse Resp BP Pulse Ox 98.1 F 69 18 146/92 99 04/07/18 05:44 04/07/18 05:44 04/07/18 05:44 04/07/18 05:44 04/07/18 07:59 Active Medications Abacavir Sulfate (Ziagen -) 600 mg PO DAILY [facility] Last Admin: 04/07/18 10:15 Dose: 600 mg Albuterol Sulfate (Ventolin 0.083% Nebulizer Soln -) 1 amp NEB Q4H PRN PRN Reason: SHORT OF BREATH/WHEEZING Albuterol/Ipratropium (Duoneb -) 1 amp NEB RQID [facility] Last Admin: 04/07/18 11:09 Dose: Not Given Aspirin (Ecotrin -) 81 mg PO DAILY [facility] Last Admin: 04/07/18 10:16 Dose: 81 mg Carvedilol (Coreg -) 6.25 mg PO BID [facility] Last Admin: 04/07/18 10:16 Dose: 6.25 mg Clopidogrel Bisulfate (Plavix -) 75 mg PO DAILY [facility] Last Admin: 04/07/18 10:16 Dose: 75 mg Heparin Sodium (Porcine) (Heparin -) 5,000 unit SQ TID [facility] Last Admin: 04/07/18 06:04 Dose: 5,000 unit Sodium Chloride (Normal Saline -) 1,000 mls @ 75 mls/hr IV ASDIR [facility] Last Admin: 04/07/18 06:04 Dose: 75 mls/hr Piperacillin Sod/Tazobactam (Sod 2.25 gm/ Dextrose) 50 mls @ 100 mls/hr IVPB Q8H-IV [facility]; Protocol Last Admin: 04/07/18 10:17 Dose: 100 mls/hr Lamivudine (Epivir -) 300 mg PO DAILY [facility] Last Admin: 04/07/18 10:15 Dose: 300 mg Methylprednisolone Sodium Succinate (Solu-Medrol -) 40 mg IVPUSH Q8H-IV [facility] Last Admin: 04/07/18 10:16 Dose: 40 mg Morphine Sulfate (Morphine Sulfate) 3 mg IVPUSH Q4H PRN PRN Reason: PAIN LEVEL 4 - 6 Last Admin: 04/07/18 10:13 Dose: 3 mg Pantoprazole Sodium (Protonix -) 40 mg PO DAILY [facility] Last Admin: 04/07/18 10:25 Dose: 40 mg Gen: Mildly tachypneic on VN O2 Heart: RRR Lung: decreased breath sounds at the bases Abd: soft, (+) tender,no guarding or rigidity Ext: no edema Laboratory Results - last 24 hr 04/06/18 04/06/18 04/06/18 05:30 11:55 16:45 WBC RBC Hgb Hct MCV MCH MCHC RDW Plt Count MPV Absolute Neuts (auto) Neutrophils % Neutrophils % (Manual) 84.8 H Band Neutrophils % 10.1 Lymphocytes % Lymphocytes % (Manual) 0.0 L Monocytes % Monocytes % (Manual) 5 Eosinophils % Eosinophils % (Manual) 0.0 Basophils % Basophils % (Manual) 0.0 Myelocytes % (Man) 0 Promyelocytes % (Man) 0 Blast Cells % (Manual) 0 Nucleated RBC % Metamyelocytes 0 Hypochromia 0 Platelet Estimate Normal Polychromasia 0 Poikilocytosis 0 Basophilic Stippling 1+ Anisocytosis 2+ Microcytosis 2+ Macrocytosis 0 Target Cells 1+ Tear Drop Cells 1+ Ovalocytes 1+ Fragmented RBCs 1+ Sodium Potassium Chloride Carbon Dioxide Anion Gap BUN Creatinine Creat Clearance w eGFR POC Glucometer [phone] Random Glucose Calcium Total Bilirubin AST ALT Alkaline Phosphatase Total Protein Albumin Lipase 105 04/06/18 04/06/18 04/07/18 17:00 22:19 05:05 WBC RBC Hgb Hct MCV MCH MCHC RDW Plt Count MPV Absolute Neuts (auto) Neutrophils % Neutrophils % (Manual) Band Neutrophils % Lymphocytes % Lymphocytes % (Manual) Monocytes % Monocytes % (Manual) Eosinophils % Eosinophils % (Manual) Basophils % Basophils % (Manual) Myelocytes % (Man) Promyelocytes % (Man) Blast Cells % (Manual) Nucleated RBC % Metamyelocytes Hypochromia Platelet Estimate Polychromasia Poikilocytosis Basophilic Stippling Anisocytosis Microcytosis Macrocytosis Target Cells Tear Drop Cells Ovalocytes Fragmented RBCs Sodium Potassium Chloride Carbon Dioxide Anion Gap BUN Creatinine Creat Clearance w eGFR POC Glucometer 225 226 172 Random Glucose Calcium Total Bilirubin AST ALT Alkaline Phosphatase Total Protein Albumin Lipase 04/07/18 04/07/18 07:00 07:00 WBC 15.6 H RBC 4.12 Hgb 13.0 Hct 41.2 MCV 99.9 H MCH 31.5 MCHC 31.5 L RDW 14.4 Plt Count 165 MPV 7.6 Absolute Neuts (auto) 14.3 H Neutrophils % 92.0 H Neutrophils % (Manual) 93.1 H Band Neutrophils % 1.0 Lymphocytes % 2.1 L D Lymphocytes % (Manual) 2.0 L D Monocytes % 5.8 Monocytes % (Manual) 4 Eosinophils % 0.0 Eosinophils % (Manual) 0.0 Basophils % 0.1 Basophils % (Manual) 0.0 Myelocytes % (Man) 0 Promyelocytes % (Man) 0 Blast Cells % (Manual) 0 Nucleated RBC % 1 H Metamyelocytes 0 Hypochromia Platelet Estimate Polychromasia Poikilocytosis Basophilic Stippling Anisocytosis 1+ Microcytosis Macrocytosis 1+ Target Cells Tear Drop Cells Ovalocytes Fragmented RBCs Sodium 143 Potassium 4.2 Chloride 108 H Carbon Dioxide 30 Anion Gap 6 L BUN 38 H Creatinine 1.0 Creat Clearance w eGFR 55.30 POC Glucometer Random Glucose 146 H Calcium 8.3 L Total Bilirubin 1.1 H AST 232 H ALT 235 H Alkaline Phosphatase 64 Total Protein 6.1 L Albumin 3.1 L Lipase ASSESSMENT AND PLAN: Altered Mental Status improving Acute on Chronic Hypoxic and Hypercapneic Respiratory Failure Acute COPD Exacerbation Pneumonia Severe Sepsis Lactic Acidosis Acute Kidney Injury Elevated LFTs +Troponins likely Demand Ischemia CAD s/p CABG HIV - NIPPV settings were adjusted - ABX - Medrol - inhaled bronchodilators - O2 to keep SpO2 >90% - ASA, plavix - beta jaqui - trend LFTs - PO as tolerated - Workup of abdominal pain per primary team - when ready for discharge, will need to check ambulatory SpO2 on room air to assess for home O2 Dr Suero
--- NOTE | 2018-04-07 12:42 | PN ---
Progress Note, Physician History of Present Illness: RUQ pain. - Current Medication List Current Medications: Active Medications Abacavir Sulfate (Ziagen -) 600 mg PO DAILY [facility] Last Admin: 04/07/18 10:15 Dose: 600 mg Albuterol Sulfate (Ventolin 0.083% Nebulizer Soln -) 1 amp NEB Q4H PRN PRN Reason: SHORT OF BREATH/WHEEZING Albuterol/Ipratropium (Duoneb -) 1 amp NEB RQID [facility] Last Admin: 04/07/18 11:09 Dose: Not Given Aspirin (Ecotrin -) 81 mg PO DAILY [facility] Last Admin: 04/07/18 10:16 Dose: 81 mg Carvedilol (Coreg -) 6.25 mg PO BID [facility] Last Admin: 04/07/18 10:16 Dose: 6.25 mg Clopidogrel Bisulfate (Plavix -) 75 mg PO DAILY [facility] Last Admin: 04/07/18 10:16 Dose: 75 mg Heparin Sodium (Porcine) (Heparin -) 5,000 unit SQ TID [facility] Last Admin: 04/07/18 06:04 Dose: 5,000 unit Sodium Chloride (Normal Saline -) 1,000 mls @ 75 mls/hr IV ASDIR [facility] Last Admin: 04/07/18 06:04 Dose: 75 mls/hr Piperacillin Sod/Tazobactam (Sod 2.25 gm/ Dextrose) 50 mls @ 100 mls/hr IVPB Q8H-IV [facility]; Protocol Last Admin: 04/07/18 10:17 Dose: 100 mls/hr Lamivudine (Epivir -) 300 mg PO DAILY [facility] Last Admin: 04/07/18 10:15 Dose: 300 mg Methylprednisolone Sodium Succinate (Solu-Medrol -) 40 mg IVPUSH Q8H-IV [facility] Last Admin: 04/07/18 10:16 Dose: 40 mg Morphine Sulfate (Morphine Sulfate) 3 mg IVPUSH Q4H PRN PRN Reason: PAIN LEVEL 4 - 6 Last Admin: 04/07/18 10:13 Dose: 3 mg Pantoprazole Sodium (Protonix -) 40 mg PO DAILY [facility] Last Admin: 04/07/18 10:25 Dose: 40 mg - Objective Vital Signs: Vital Signs Temperature 97.8 F 04/07/18 10:00 Pulse Rate 69 04/07/18 05:44 Respiratory Rate 18 04/07/18 10:00 Blood Pressure 128/93 04/07/18 10:00 O2 Sat by Pulse Oximetry (%) 99 04/07/18 07:59 Constitutional: Yes: Anxious, Mild Distress Neck: Yes: Supple Cardiovascular: Yes: Regular Rate and Rhythm Respiratory: Yes: Regular, Diminished Gastrointestinal: Yes: Soft, Hypoactive Bowel Sounds, Tenderness (RUQ) Edema: No Labs: CBC, BMP 04/07/18 07:00 04/07/18 07:00 INR, PTT INR 1.89 (0.83-1.09) H 04/05/18 05:30 - ....Imaging Ultrasound: Report Reviewed (Contracted GB, cholelithiasis) Problem List - Problems (1) Acute kidney injury Code(s): N17.9 - ACUTE KIDNEY FAILURE, UNSPECIFIED (2) Demand ischemia Code(s): I24.8 - OTHER FORMS OF ACUTE ISCHEMIC HEART DISEASE (3) Acute hypercapnic respiratory failure Code(s): J96.02 - ACUTE RESPIRATORY FAILURE WITH HYPERCAPNIA (4) Altered mental status Code(s): R41.82 - ALTERED MENTAL STATUS, UNSPECIFIED Qualifiers: Altered mental status type: disorientation Qualified Code(s): R41.0 - Disorientation, unspecified (6) Aspiration pneumonia Code(s): J69.0 - PNEUMONITIS DUE TO INHALATION OF FOOD AND VOMIT Qualifiers: Aspiration pneumonia type: unspecified Laterality: right Lung location: lower lobe of lung Qualified Code(s): J69.0 - Pneumonitis due to inhalation of food and vomit (7) Toxic metabolic encephalopathy Code(s): G92 - TOXIC ENCEPHALOPATHY Assessment/Plan 04/04/2018 Echo: Normal LV size and fxn, LVEF 50-55%, mild-mod RITIKA, mod-severe TR, mild MR 1. Altered mental status - toxic metabolic encephelopathy, resolving 2. Acute hypercapneic/hypoxic respiratory failure, resolving related to 3. Right lower lobe pneumonia with probable sepsis syndrome/Acute COPD Exacerbation 4. CAD with history of CABG for planned intervention evidence of ACS/demand ischemia angina pectoris 5. Systolic/diastolic LV dysfunction with class 0 NYHA classification LV failure 6. RV dysfunction with moderate degree of pulmonary hypertension 7. HTN 8. Hypercholesterolemia 9. Hyperglycemia, DM to be excluded 10. Acute on chronic kidney injury with resolved hyperkalemia 11. HIV 12. Acute hepatic injury 13. Cholelithiasis PLAN: 1. Antibiotics as per the primary team 2. BiPAP as per ICU team, IV steroids, BD, O2 to keep SpO2 >90% 3. Carvedilol 6.25 bid hemodynamics permitting 4. Ideally should be on ACEI or ARBS pending renal function recovery 5. ASA 81 qd and Plavix 75 qd 6. Add Statins once LFT's normalize, U/S reviewed showing fatty liver and cholelithiasis 7. Obtain medical records specially cardiac history records from her physicians in [place], [place] 8. DVT prophylaxis
[2018-04-07] MEDS ORDERED: ONDANSETRON 4 MG/2 ML VIAL IVPUSH ONE ×2 (13:23→20:00)
[2018-04-07] MEDS ORDERED: ONDANSETRON 4 MG/2 ML VIAL ONE (13:28)
--- NOTE | 2018-04-07 13:40 | PN ---
Progress Note, Physician History of Present Illness: abd pain still present breathing well no gases - Current Medication List Current Medications: Active Medications Abacavir Sulfate (Ziagen -) 600 mg PO DAILY [facility] Last Admin: 04/07/18 10:15 Dose: 600 mg Albuterol Sulfate (Ventolin 0.083% Nebulizer Soln -) 1 amp NEB Q4H PRN PRN Reason: SHORT OF BREATH/WHEEZING Albuterol/Ipratropium (Duoneb -) 1 amp NEB RQID [facility] Last Admin: 04/07/18 11:09 Dose: Not Given Aspirin (Ecotrin -) 81 mg PO DAILY [facility] Last Admin: 04/07/18 10:16 Dose: 81 mg Carvedilol (Coreg -) 6.25 mg PO BID [facility] Last Admin: 04/07/18 10:16 Dose: 6.25 mg Clopidogrel Bisulfate (Plavix -) 75 mg PO DAILY [facility] Last Admin: 04/07/18 10:16 Dose: 75 mg Heparin Sodium (Porcine) (Heparin -) 5,000 unit SQ TID [facility] Last Admin: 04/07/18 06:04 Dose: 5,000 unit Sodium Chloride (Normal Saline -) 1,000 mls @ 75 mls/hr IV ASDIR [facility] Last Admin: 04/07/18 06:04 Dose: 75 mls/hr Piperacillin Sod/Tazobactam (Sod 2.25 gm/ Dextrose) 50 mls @ 100 mls/hr IVPB Q8H-IV [facility]; Protocol Last Admin: 04/07/18 10:17 Dose: 100 mls/hr Lamivudine (Epivir -) 300 mg PO DAILY [facility] Last Admin: 04/07/18 10:15 Dose: 300 mg Methylprednisolone Sodium Succinate (Solu-Medrol -) 40 mg IVPUSH Q8H-IV [facility] Last Admin: 04/07/18 10:16 Dose: 40 mg Morphine Sulfate (Morphine Sulfate) 3 mg IVPUSH Q4H PRN PRN Reason: PAIN LEVEL 4 - 6 Last Admin: 04/07/18 10:13 Dose: 3 mg Pantoprazole Sodium (Protonix -) 40 mg PO DAILY [facility] Last Admin: 04/07/18 10:25 Dose: 40 mg - Objective Vital Signs: Vital Signs Temperature 97.8 F 04/07/18 10:00 Pulse Rate 69 04/07/18 05:44 Respiratory Rate 18 04/07/18 10:00 Blood Pressure 128/93 04/07/18 10:00 O2 Sat by Pulse Oximetry (%) 99 04/07/18 07:59 Constitutional: Yes: Calm, Moderate Distress Eyes: Yes: Conjunctiva Clear Cardiovascular: Yes: Regular Rate and Rhythm Respiratory: Yes: Regular, CTA Bilaterally Gastrointestinal: Yes: Soft, Hypoactive Bowel Sounds Musculoskeletal: Yes: WNL Extremities: Yes: WNL Neurological: Yes: Alert, Oriented Psychiatric: Yes: Alert, Oriented Labs: CBC, BMP 04/07/18 07:00 04/07/18 07:00 INR, PTT INR 1.89 (0.83-1.09) H 04/05/18 05:30 Assessment/Plan Problem List - Problems (1) Acute kidney injury Code(s): N17.9 - ACUTE KIDNEY FAILURE, UNSPECIFIED (2) Demand ischemia Code(s): I24.8 - OTHER FORMS OF ACUTE ISCHEMIC HEART DISEASE (3) Acute hypercapnic respiratory failure Code(s): J96.02 - ACUTE RESPIRATORY FAILURE WITH HYPERCAPNIA (4) Altered mental status Code(s): R41.82 - ALTERED MENTAL STATUS, UNSPECIFIED Qualifiers: Altered mental status type: disorientation Qualified Code(s): R41.0 - Disorientation, unspecified (6) Aspiration pneumonia Code(s): J69.0 - PNEUMONITIS DUE TO INHALATION OF FOOD AND VOMIT Qualifiers: Aspiration pneumonia type: unspecified Laterality: right Lung location: lower lobe of lung Qualified Code(s): J69.0 - Pneumonitis due to inhalation of food and vomit (7) Toxic metabolic encephalopathy Code(s): G92 - TOXIC ENCEPHALOPATHY Altered Mental Status improved Acute on Chronic Hypoxic and Hypercapneic Respiratory Failure Acute COPD Exacerbation Pneumonia Severe Sepsis Lactic Acidosis Acute Kidney Injury Elevated LFTs +Troponins likely Demand Ischemia CAD s/p CABG HIV colitis plan close watch consider npo iv fluids continue monitoring wbc rest as per the team
--- NOTE | 2018-04-07 18:27 | PN ---
Progress Note, Physician History of Present Illness: comfortable - Current Medication List Current Medications: Active Medications Abacavir Sulfate (Ziagen -) 600 mg PO DAILY [facility] Last Admin: 04/07/18 10:15 Dose: 600 mg Albuterol Sulfate (Ventolin 0.083% Nebulizer Soln -) 1 amp NEB Q4H PRN PRN Reason: SHORT OF BREATH/WHEEZING Albuterol/Ipratropium (Duoneb -) 1 amp NEB RQID [facility] Last Admin: 04/07/18 15:42 Dose: 1 amp Aspirin (Ecotrin -) 81 mg PO DAILY [facility] Last Admin: 04/07/18 10:16 Dose: 81 mg Carvedilol (Coreg -) 6.25 mg PO BID [facility] Last Admin: 04/07/18 10:16 Dose: 6.25 mg Clopidogrel Bisulfate (Plavix -) 75 mg PO DAILY [facility] Last Admin: 04/07/18 10:16 Dose: 75 mg Heparin Sodium (Porcine) (Heparin -) 5,000 unit SQ TID [facility] Last Admin: 04/07/18 14:05 Dose: 5,000 unit Sodium Chloride (Normal Saline -) 1,000 mls @ 75 mls/hr IV ASDIR [facility] Last Admin: 04/07/18 06:04 Dose: 75 mls/hr Piperacillin Sod/Tazobactam (Sod 2.25 gm/ Dextrose) 50 mls @ 100 mls/hr IVPB Q8H-IV [facility]; Protocol Last Admin: 04/07/18 10:17 Dose: 100 mls/hr Lamivudine (Epivir -) 300 mg PO DAILY [facility] Last Admin: 04/07/18 10:15 Dose: 300 mg Methylprednisolone Sodium Succinate (Solu-Medrol -) 40 mg IVPUSH Q8H-IV [facility] Last Admin: 04/07/18 17:13 Dose: 40 mg Morphine Sulfate (Morphine Sulfate) 3 mg IVPUSH Q4H PRN PRN Reason: PAIN LEVEL 4 - 6 Last Admin: 04/07/18 14:01 Dose: 3 mg Pantoprazole Sodium (Protonix -) 40 mg PO DAILY [facility] Last Admin: 04/07/18 10:25 Dose: 40 mg - Objective Vital Signs: Vital Signs Temperature 97.7 F 04/07/18 14:29 Pulse Rate 75 04/07/18 14:29 Respiratory Rate 22 H 04/07/18 14:29 Blood Pressure 177/98 H 04/07/18 14:29 O2 Sat by Pulse Oximetry (%) 99 04/07/18 09:00 Constitutional: Yes: No Distress HENT: Yes: Atraumatic Neck: Yes: Supple Cardiovascular: Yes: Regular Rate and Rhythm Respiratory: Yes: CTA Bilaterally Gastrointestinal: Yes: Normal Bowel Sounds Extremities: Yes: WNL Edema: No Peripheral Pulses WNL: Yes Neurological: Yes: Alert, Oriented Labs: CBC, BMP 04/07/18 07:00 04/07/18 07:00 INR, PTT INR 1.89 (0.83-1.09) H 04/05/18 05:30 Problem List - Problems (1) Acute hypercapnic respiratory failure Assessment/Plan: on room air Code(s): J96.02 - ACUTE RESPIRATORY FAILURE WITH HYPERCAPNIA (2) Acute kidney injury Assessment/Plan: iv hydration cr wnl Code(s): N17.9 - ACUTE KIDNEY FAILURE, UNSPECIFIED (3) Altered mental status Assessment/Plan: alert and oriented Code(s): R41.82 - ALTERED MENTAL STATUS, UNSPECIFIED Qualifiers: Altered mental status type: disorientation Qualified Code(s): R41.0 - Disorientation, unspecified (4) Aspiration pneumonia Assessment/Plan: on iv abx Code(s): J69.0 - PNEUMONITIS DUE TO INHALATION OF FOOD AND VOMIT Qualifiers: Aspiration pneumonia type: unspecified Laterality: right Lung location: lower lobe of lung Qualified Code(s): J69.0 - Pneumonitis due to inhalation of food and vomit (5) Asthma Assessment/Plan: duo nebs prn Code(s): J45.909 - UNSPECIFIED ASTHMA, UNCOMPLICATED (6) HIV Assessment/Plan: on meds (7) Neuropathy Code(s): G62.9 - POLYNEUROPATHY, UNSPECIFIED (8) Demand ischemia Assessment/Plan: follow up troponins trending down Code(s): I24.8 - OTHER FORMS OF ACUTE ISCHEMIC HEART DISEASE Assessment/Plan DIAGNOSES Altered Mental Status improving Acute on Chronic Hypoxic and Hypercapneic Respiratory Failure Acute COPD Exacerbation Pneumonia Severe Sepsis Lactic Acidosis Acute Kidney Injury Elevated LFTs +Troponins likely Demand Ischemia CAD s/p CABG HIV
[2018-04-08] MEDS ORDERED: PIPERACILLIN/TAZOBACTAM 2.25 GM VIAL IVPB ONE ×3 (01:08→17:57)
[2018-04-08] MEDS ORDERED: DEXTROSE 5%-WATER - 50 ML IVPB ONE ×3 (01:08→17:57)
[2018-04-08] MEDS: methylPREDNISolone NA SUCC 40 MG/1 ML VIAL IVPUSH SCH ×3 (02:42→18:37)
[2018-04-08] MEDS: PIPERACILLIN/TAZOB 2.25 GM 2.25 GM in DEXTROSE 5%-WATER - 50 ML IVPB SCH ×3 (02:42→17:59)
[2018-04-08] MEDS: morphine SULFATE 4 MG/ML VIAL IVPUSH PRN ×5 (03:46→20:46)
[2018-04-08] MEDS: HEPARIN NA (PORCINE) 5,000 UNITS/ML 1ML VIAL SQ SCH ×3 (06:01→21:27)
[2018-04-08] MEDS ORDERED: CARVEDILOL 6.25 MG TABLET (FP) PO ONE ×2 (06:59→18:00)
[2018-04-08] MEDS: ALBUTEROL SO4 2.5/IPRATROPIUM 0.5 INH SOL 3 ML VIAL.NEB. NEB SCH ×4 (08:05→21:01)
--- NOTE | 2018-04-08 10:12 | EKG ---
Test Reason : Blood Pressure : / mmHG Vent. Rate : 079 BPM Atrial Rate : 079 BPM P-R Int : 146 ms QRS Dur : 102 ms QT Int : 392 ms P-R-T Axes : 064 031 016 degrees QTc Int : 449 ms NORMAL SINUS RHYTHM POSSIBLE LEFT ATRIAL ENLARGEMENT POSSIBLE ANTERIOR INFARCT , AGE UNDETERMINED ABNORMAL ECG Confirmed by CARIDAD MENDOZA MD ([id number]) on 04/08/2018 10:11:36 AM Referred By: Confirmed By:CARIDAD MENDOZA MD
[2018-04-08] MEDS ORDERED: PT OWN MED DRAWER 7, Y5N ONE (10:31)
[2018-04-08] MEDS: lamiVUDine 150 MG TABLET PO SCH (10:47)
[2018-04-08] MEDS: ASPIRIN COATED 81 MG TABLET.EC PO SCH (10:47)
[2018-04-08] MEDS: CLOPIDOGREL BISULFATE 75 MG TABLET (FP) PO SCH (10:47)
[2018-04-08] MEDS: PANTOPRAZOLE 40 MG TABLET (FP) PO SCH (10:47)
[2018-04-08] MEDS: ABACAVIR SULFATE 300 MG TABLET PO SCH (10:48)
[2018-04-08] MEDS: DOLUTEGRAVIR SODIUM 50 MG TABLET (NON-FORMULARY) PO SCH (10:51)
[2018-04-08] MEDS: CARVEDILOL 6.25 MG TABLET (FP) PO SCH ×2 (10:55→21:27)
[2018-04-08] MEDS: SODIUM CHLORIDE 1,000 ML IV SCH ×2 (10:59→18:38)
--- NOTE | 2018-04-08 12:01 | PN ---
Progress Note (short form) - Note Progress Note: PULMONARY Sitting on the edge of the bed. Grimacing with abdominal pain. Afebrile Gen: Mildly tachypneic on VN O2 Heart: RRR Lung: decreased breath sounds at the bases Abd: soft, (+) tender,no guarding or rigidity /hypoactive bowel sounds No edema Ct abd noted :thickened right colon maybe c/w colitis Rising lft's labs/meds/micro/notes reviewed ASSESSMENT AND PLAN: Altered Mental Status improved Acute on Chronic Hypoxic and Hypercapneic Respiratory Failure Acute COPD Exacerbation resolving Pneumonia Sepsis Lactic Acidosis Acute Kidney Injury Elevated LFTs +Troponins likely Demand Ischemia CAD s/p CABG HIV Abd pain etioliogy to be determined - NIPPV if patient permits prn - ABX - Medrol - inhaled bronchodilators - O2 to keep SpO2 >90% - ASA, plavix - beta jaqui - trend LFTs - PO as tolerated - Workup of abdominal pain should include a GI consult Vlad RICKS MD
--- NOTE | 2018-04-08 13:08 | PN ---
Progress Note, Physician History of Present Illness: mainly abd pain other stable wbc still high - Current Medication List Current Medications: Active Medications Abacavir Sulfate (Ziagen -) 600 mg PO DAILY [facility] Last Admin: 04/08/18 10:48 Dose: 600 mg Albuterol Sulfate (Ventolin 0.083% Nebulizer Soln -) 1 amp NEB Q4H PRN PRN Reason: SHORT OF BREATH/WHEEZING Albuterol/Ipratropium (Duoneb -) 1 amp NEB RQID [facility] Last Admin: 04/08/18 11:48 Dose: 1 amp Aspirin (Ecotrin -) 81 mg PO DAILY [facility] Last Admin: 04/08/18 10:47 Dose: 81 mg Carvedilol (Coreg -) 6.25 mg PO BID [facility] Last Admin: 04/08/18 10:55 Dose: 6.25 mg Clopidogrel Bisulfate (Plavix -) 75 mg PO DAILY [facility] Last Admin: 04/08/18 10:47 Dose: 75 mg Heparin Sodium (Porcine) (Heparin -) 5,000 unit SQ TID [facility] Last Admin: 04/08/18 06:01 Dose: 5,000 unit Sodium Chloride (Normal Saline -) 1,000 mls @ 75 mls/hr IV [facility] Last Admin: 04/08/18 10:59 Dose: 75 mls/hr Piperacillin Sod/Tazobactam (Sod 2.25 gm/ Dextrose) 50 mls @ 100 mls/hr IVPB Q8H-IV [facility]; Protocol Last Admin: 04/08/18 10:51 Dose: 100 mls/hr Lamivudine (Epivir -) 300 mg PO DAILY [facility] Last Admin: 04/08/18 10:47 Dose: 300 mg Methylprednisolone Sodium Succinate (Solu-Medrol -) 40 mg IVPUSH Q8H-IV [facility] Last Admin: 04/08/18 10:48 Dose: 40 mg Morphine Sulfate (Morphine Sulfate) 3 mg IVPUSH Q4H PRN PRN Reason: PAIN LEVEL 4 - 6 Last Admin: 04/08/18 12:50 Dose: 3 mg Pantoprazole Sodium (Protonix -) 40 mg PO DAILY [facility] Last Admin: 04/08/18 10:47 Dose: 40 mg - Objective Vital Signs: Vital Signs Temperature 98.3 F 04/07/18 22:00 Pulse Rate 78 04/07/18 22:00 Respiratory Rate 20 04/07/18 22:00 Blood Pressure 167/99 04/07/18 22:00 O2 Sat by Pulse Oximetry (%) 96 04/08/18 09:07 Constitutional: Yes: Calm, Mild Distress Cardiovascular: Yes: Regular Rate and Rhythm Respiratory: Yes: Regular, CTA Bilaterally Gastrointestinal: Yes: Normal Bowel Sounds, Soft Musculoskeletal: Yes: WNL Extremities: Yes: WNL Neurological: Yes: Alert, Oriented Psychiatric: Yes: Alert, Oriented Labs: CBC, BMP 04/07/18 07:00 04/07/18 07:00 INR, PTT INR 1.89 (0.83-1.09) H 04/05/18 05:30 Assessment/Plan Problem List - Problems (1) Acute kidney injury Code(s): N17.9 - ACUTE KIDNEY FAILURE, UNSPECIFIED (2) Demand ischemia Code(s): I24.8 - OTHER FORMS OF ACUTE ISCHEMIC HEART DISEASE (3) Acute hypercapnic respiratory failure Code(s): J96.02 - ACUTE RESPIRATORY FAILURE WITH HYPERCAPNIA (4) Altered mental status Code(s): R41.82 - ALTERED MENTAL STATUS, UNSPECIFIED Qualifiers: Altered mental status type: disorientation Qualified Code(s): R41.0 - Disorientation, unspecified (6) Aspiration pneumonia Code(s): J69.0 - PNEUMONITIS DUE TO INHALATION OF FOOD AND VOMIT Qualifiers: Aspiration pneumonia type: unspecified Laterality: right Lung location: lower lobe of lung Qualified Code(s): J69.0 - Pneumonitis due to inhalation of food and vomit (7) Toxic metabolic encephalopathy Code(s): G92 - TOXIC ENCEPHALOPATHY Altered Mental Status improved Acute on Chronic Hypoxic and Hypercapneic Respiratory Failure Acute COPD Exacerbation Pneumonia Severe Sepsis Lactic Acidosis Acute Kidney Injury Elevated LFTs +Troponins likely Demand Ischemia CAD s/p CABG HIV colitis plan close watch consider npo iv fluids continue monitoring wbc rest as per the team repeat imaging
--- NOTE | 2018-04-08 14:20 | PN ---
Progress Note, Physician History of Present Illness: Continued RUQ pain. - Current Medication List Current Medications: Active Medications Abacavir Sulfate (Ziagen -) 600 mg PO DAILY [facility] Last Admin: 04/08/18 10:48 Dose: 600 mg Albuterol Sulfate (Ventolin 0.083% Nebulizer Soln -) 1 amp NEB Q4H PRN PRN Reason: SHORT OF BREATH/WHEEZING Albuterol/Ipratropium (Duoneb -) 1 amp NEB RQID [facility] Last Admin: 04/08/18 11:48 Dose: 1 amp Aspirin (Ecotrin -) 81 mg PO DAILY [facility] Last Admin: 04/08/18 10:47 Dose: 81 mg Carvedilol (Coreg -) 6.25 mg PO BID [facility] Last Admin: 04/08/18 10:55 Dose: 6.25 mg Clopidogrel Bisulfate (Plavix -) 75 mg PO DAILY [facility] Last Admin: 04/08/18 10:47 Dose: 75 mg Heparin Sodium (Porcine) (Heparin -) 5,000 unit SQ TID [facility] Last Admin: 04/08/18 06:01 Dose: 5,000 unit Sodium Chloride (Normal Saline -) 1,000 mls @ 75 mls/hr IV ASDIR [facility] Last Admin: 04/08/18 10:59 Dose: 75 mls/hr Piperacillin Sod/Tazobactam (Sod 2.25 gm/ Dextrose) 50 mls @ 100 mls/hr IVPB Q8H-IV [facility]; Protocol Last Admin: 04/08/18 10:51 Dose: 100 mls/hr Lamivudine (Epivir -) 300 mg PO DAILY [facility] Last Admin: 04/08/18 10:47 Dose: 300 mg Methylprednisolone Sodium Succinate (Solu-Medrol -) 40 mg IVPUSH Q8H-IV [facility] Last Admin: 04/08/18 10:48 Dose: 40 mg Morphine Sulfate (Morphine Sulfate) 3 mg IVPUSH Q4H PRN PRN Reason: PAIN LEVEL 4 - 6 Last Admin: 04/08/18 12:50 Dose: 3 mg Pantoprazole Sodium (Protonix -) 40 mg PO DAILY [facility] Last Admin: 04/08/18 10:47 Dose: 40 mg - Objective Vital Signs: Vital Signs Temperature 98.3 F 04/07/18 22:00 Pulse Rate 78 04/07/18 22:00 Respiratory Rate 20 04/07/18 22:00 Blood Pressure 167/99 04/07/18 22:00 O2 Sat by Pulse Oximetry (%) 96 04/08/18 14:00 Constitutional: Yes: No Distress, Calm, Thin Neck: Yes: Supple Cardiovascular: Yes: Regular Rate and Rhythm Respiratory: Yes: Regular, CTA Bilaterally Gastrointestinal: Yes: Soft, Hypoactive Bowel Sounds, Tenderness (RUQ) Edema: No Labs: CBC, BMP 04/07/18 07:00 04/07/18 07:00 INR, PTT INR 1.89 (0.83-1.09) H 04/05/18 05:30 Problem List - Problems (1) Acute kidney injury Code(s): N17.9 - ACUTE KIDNEY FAILURE, UNSPECIFIED (2) Demand ischemia Code(s): I24.8 - OTHER FORMS OF ACUTE ISCHEMIC HEART DISEASE (3) Acute hypercapnic respiratory failure Code(s): J96.02 - ACUTE RESPIRATORY FAILURE WITH HYPERCAPNIA (4) Altered mental status Code(s): R41.82 - ALTERED MENTAL STATUS, UNSPECIFIED Qualifiers: Altered mental status type: disorientation Qualified Code(s): R41.0 - Disorientation, unspecified (6) Aspiration pneumonia Code(s): J69.0 - PNEUMONITIS DUE TO INHALATION OF FOOD AND VOMIT Qualifiers: Aspiration pneumonia type: unspecified Laterality: right Lung location: lower lobe of lung Qualified Code(s): J69.0 - Pneumonitis due to inhalation of food and vomit (7) Toxic metabolic encephalopathy Code(s): G92 - TOXIC ENCEPHALOPATHY Assessment/Plan 04/04/2018 Echo: Normal LV size and fxn, LVEF 50-55%, mild-mod RITIKA, mod-severe TR, mild MR 1. Altered mental status - toxic metabolic encephelopathy, resolving 2. Acute hypercapneic/hypoxic respiratory failure, resolving related to 3. Right lower lobe pneumonia with probable sepsis syndrome/Acute COPD Exacerbation 4. CAD with history of CABG, demand ischemia 5. Systolic/diastolic LV dysfunction with class 0 NYHA classification LV failure 6. RV dysfunction with moderate degree of pulmonary hypertension 7. HTN, BP not at goal 8. Hypercholesterolemia 9. Acute on chronic kidney injury with hyperkalemia resolved 10. HIV 11. Acute hepatic injury 12. RUQ pain, Cholelithiasis PLAN: 1. Antibiotics as per the primary team, GI evaluation recommended 2. BiPAP as per ICU team, IV steroids, BD, O2 to keep SpO2 >90% 3. Continue Carvedilol 6.25 bid hemodynamics permitting 4. Start losartan 25 qd given renal function recovery 5. ASA 81 qd and Plavix 75 qd 6. Add Statins once LFT's normalize, U/S reviewed showing fatty liver and cholelithiasis 7. Obtain medical records specially cardiac history records from her physicians in [place], [place] 8. DVT prophylaxis
[2018-04-08] MEDS: LOSARTAN POTASSIUM 25 MG TABLET PO SCH (16:30)
[2018-04-08] MEDS ORDERED: LOSARTAN POTASSIUM 25 MG TABLET PO ONE ×2 (18:00→23:45)
--- NOTE | 2018-04-08 18:29 | PN ---
Progress Note, Physician History of Present Illness: comfortable - Current Medication List Current Medications: Active Medications Abacavir Sulfate (Ziagen -) 600 mg PO DAILY [facility] Last Admin: 04/08/18 10:48 Dose: 600 mg Albuterol Sulfate (Ventolin 0.083% Nebulizer Soln -) 1 amp NEB Q4H PRN PRN Reason: SHORT OF BREATH/WHEEZING Albuterol/Ipratropium (Duoneb -) 1 amp NEB RQID [facility] Last Admin: 04/08/18 16:28 Dose: Not Given Aspirin (Ecotrin -) 81 mg PO DAILY [facility] Last Admin: 04/08/18 10:47 Dose: 81 mg Carvedilol (Coreg -) 6.25 mg PO BID [facility] Last Admin: 04/08/18 10:55 Dose: 6.25 mg Clopidogrel Bisulfate (Plavix -) 75 mg PO DAILY [facility] Last Admin: 04/08/18 10:47 Dose: 75 mg Heparin Sodium (Porcine) (Heparin -) 5,000 unit SQ TID [facility] Last Admin: 04/08/18 16:30 Dose: 5,000 unit Sodium Chloride (Normal Saline -) 1,000 mls @ 75 mls/hr IV [facility]IR [facility] Last Admin: 04/08/18 10:59 Dose: 75 mls/hr Piperacillin Sod/Tazobactam (Sod 2.25 gm/ Dextrose) 50 mls @ 100 mls/hr IVPB Q8H-IV [facility]; Protocol Last Admin: 04/08/18 17:59 Dose: 100 mls/hr Lamivudine (Epivir -) 300 mg PO DAILY [facility] Last Admin: 04/08/18 10:47 Dose: 300 mg Losartan Potassium (Cozaar -) 25 mg PO DAILY [facility] Last Admin: 04/08/18 16:30 Dose: 25 mg Methylprednisolone Sodium Succinate (Solu-Medrol -) 40 mg IVPUSH Q8H-IV [facility] Last Admin: 04/08/18 10:48 Dose: 40 mg Morphine Sulfate (Morphine Sulfate) 3 mg IVPUSH Q4H PRN PRN Reason: PAIN LEVEL 4 - 6 Last Admin: 04/08/18 16:41 Dose: 3 mg Pantoprazole Sodium (Protonix -) 40 mg PO DAILY [facility] Last Admin: 04/08/18 10:47 Dose: 40 mg - Objective Vital Signs: Vital Signs Temperature 97.3 F L 04/08/18 13:47 Pulse Rate 80 04/08/18 13:50 Respiratory Rate 20 04/08/18 17:00 Blood Pressure 191/124 H 04/08/18 17:00 O2 Sat by Pulse Oximetry (%) 96 04/08/18 14:00 HENT: Yes: Atraumatic Neck: Yes: Supple Cardiovascular: Yes: Regular Rate and Rhythm Respiratory: Yes: Rhonchi Gastrointestinal: Yes: Normal Bowel Sounds Extremities: Yes: WNL Edema: No Neurological: Yes: Alert, Oriented Labs: CBC, BMP 04/07/18 07:00 04/07/18 07:00 INR, PTT INR 1.89 (0.83-1.09) H 04/05/18 05:30 Problem List - Problems (1) Acute hypercapnic respiratory failure Assessment/Plan: on room air Code(s): J96.02 - ACUTE RESPIRATORY FAILURE WITH HYPERCAPNIA (2) Acute kidney injury Assessment/Plan: iv hydration cr wnl Code(s): N17.9 - ACUTE KIDNEY FAILURE, UNSPECIFIED (3) Altered mental status Assessment/Plan: alert and oriented Code(s): R41.82 - ALTERED MENTAL STATUS, UNSPECIFIED Qualifiers: Altered mental status type: disorientation Qualified Code(s): R41.0 - Disorientation, unspecified (4) Aspiration pneumonia Assessment/Plan: on iv abx Code(s): J69.0 - PNEUMONITIS DUE TO INHALATION OF FOOD AND VOMIT Qualifiers: Aspiration pneumonia type: unspecified Laterality: right Lung location: lower lobe of lung Qualified Code(s): J69.0 - Pneumonitis due to inhalation of food and vomit (5) Asthma Assessment/Plan: duo nebs prn Code(s): J45.909 - UNSPECIFIED ASTHMA, UNCOMPLICATED (6) HIV Assessment/Plan: on meds (7) Neuropathy Code(s): G62.9 - POLYNEUROPATHY, UNSPECIFIED (8) Demand ischemia Assessment/Plan: follow up troponins trending down Code(s): I24.8 - OTHER FORMS OF ACUTE ISCHEMIC HEART DISEASE
[2018-04-09] MEDS ORDERED: PIPERACILLIN/TAZOBACTAM 2.25 GM VIAL IVPB ONE ×3 (01:10→16:45)
[2018-04-09] MEDS ORDERED: DEXTROSE 5%-WATER - 50 ML IVPB ONE ×3 (01:11→16:45)
[2018-04-09] MEDS: PIPERACILLIN/TAZOB 2.25 GM 2.25 GM in DEXTROSE 5%-WATER - 50 ML IVPB SCH ×3 (01:14→18:01)
[2018-04-09] MEDS: methylPREDNISolone NA SUCC 40 MG/1 ML VIAL IVPUSH SCH ×3 (01:14→18:01)
[2018-04-09] MEDS: morphine SULFATE 4 MG/ML VIAL IVPUSH PRN ×5 (01:14→19:49)
[2018-04-09] MEDS: HEPARIN NA (PORCINE) 5,000 UNITS/ML 1ML VIAL SQ SCH ×3 (05:35→21:19)
[2018-04-09] MEDS: ALBUTEROL SO4 2.5/IPRATROPIUM 0.5 INH SOL 3 ML VIAL.NEB. NEB SCH ×4 (07:25→20:58)
[2018-04-09] MEDS ORDERED: PT OWN MED DRAWER 7, Y5N ONE (09:30)
[2018-04-09] MEDS: PANTOPRAZOLE 40 MG TABLET (FP) PO SCH (09:31)
[2018-04-09] MEDS: CARVEDILOL 6.25 MG TABLET (FP) PO SCH ×2 (09:31→21:20)
[2018-04-09] MEDS: ASPIRIN COATED 81 MG TABLET.EC PO SCH (09:32)
[2018-04-09] MEDS: LOSARTAN POTASSIUM 25 MG TABLET PO SCH ×2 (09:32→21:20)
[2018-04-09] MEDS: CLOPIDOGREL BISULFATE 75 MG TABLET (FP) PO SCH (09:32)
[2018-04-09] MEDS: ABACAVIR SULFATE 300 MG TABLET PO SCH (09:33)
[2018-04-09] MEDS: DOLUTEGRAVIR SODIUM 50 MG TABLET (NON-FORMULARY) PO SCH (09:33)
[2018-04-09] MEDS: lamiVUDine 150 MG TABLET PO SCH (09:34)
--- NOTE | 2018-04-09 11:43 | PN ---
Progress Note, Physician Chief Complaint: Events noted Not in distress, but complains of generalized intermittent pain in the back History of Present Illness: Patient was seen and examined. Awake and alert. Chart was reviewed BP elevated despite uptitration of medications Denies SOB or palpitations - Current Medication List Current Medications: Active Medications Abacavir Sulfate (Ziagen -) 600 mg PO DAILY [facility] Last Admin: 04/09/18 09:33 Dose: 600 mg Albuterol Sulfate (Ventolin 0.083% Nebulizer Soln -) 1 amp NEB Q4H PRN PRN Reason: SHORT OF BREATH/WHEEZING Albuterol/Ipratropium (Duoneb -) 1 amp NEB RQID [facility] Last Admin: 04/09/18 07:25 Dose: 1 amp Aspirin (Ecotrin -) 81 mg PO DAILY [facility] Last Admin: 04/09/18 09:32 Dose: 81 mg Carvedilol (Coreg -) 6.25 mg PO BID [facility] Last Admin: 04/09/18 09:31 Dose: 6.25 mg Clopidogrel Bisulfate (Plavix -) 75 mg PO DAILY [facility] Last Admin: 04/09/18 09:32 Dose: 75 mg Heparin Sodium (Porcine) (Heparin -) 5,000 unit SQ TID [facility] Last Admin: 04/09/18 05:35 Dose: 5,000 unit Piperacillin Sod/Tazobactam (Sod 2.25 gm/ Dextrose) 50 mls @ 100 mls/hr IVPB Q8H-IV [facility]; Protocol Last Admin: 04/09/18 09:32 Dose: 100 mls/hr Lamivudine (Epivir -) 300 mg PO DAILY [facility] Last Admin: 04/09/18 09:34 Dose: 300 mg Losartan Potassium (Cozaar -) 25 mg PO DAILY [facility] Last Admin: 04/09/18 09:32 Dose: 25 mg Methylprednisolone Sodium Succinate (Solu-Medrol -) 40 mg IVPUSH Q8H-IV [facility] Last Admin: 04/09/18 09:32 Dose: 40 mg Morphine Sulfate (Morphine Sulfate) 3 mg IVPUSH Q4H PRN PRN Reason: PAIN LEVEL 4 - 6 Last Admin: 04/09/18 10:44 Dose: 3 mg Pantoprazole Sodium (Protonix -) 40 mg PO DAILY [facility] Last Admin: 04/09/18 09:31 Dose: 40 mg - Objective Vital Signs: Vital Signs Temperature 97.6 F 04/09/18 06:00 Pulse Rate 81 04/09/18 06:00 Respiratory Rate 22 H 04/09/18 06:00 Blood Pressure 189/116 H 04/09/18 06:00 O2 Sat by Pulse Oximetry (%) 96 04/09/18 00:10 Eyes: Yes: PERRL HENT: Yes: Atraumatic Neck: Yes: Supple Cardiovascular: Yes: Regular Rate and Rhythm, S1, S2 Respiratory: Yes: CTA Bilaterally Gastrointestinal: Yes: Normal Bowel Sounds, Soft. No: Tenderness Edema: No Labs: CBC, BMP 04/07/18 07:00 04/07/18 07:00 Problem List - Problems (1) HTN (hypertension) Code(s): I10 - ESSENTIAL (PRIMARY) HYPERTENSION (2) Acute hypercapnic respiratory failure Code(s): J96.02 - ACUTE RESPIRATORY FAILURE WITH HYPERCAPNIA (3) Asymptomatic cholelithiasis Code(s): K80.20 - CALCULUS OF GALLBLADDER W/O CHOLECYSTITIS W/O OBSTRUCTION (4) Demand ischemia Code(s): I24.8 - OTHER FORMS OF ACUTE ISCHEMIC HEART DISEASE (5) Toxic metabolic encephalopathy Code(s): G92 - TOXIC ENCEPHALOPATHY (7) Abnormal LFTs (liver function tests) Code(s): R94.5 - ABNORMAL RESULTS OF LIVER FUNCTION STUDIES Assessment/Plan 1. Post toxic metabolic encephelopathy 2. Acute hypercapneic/hypoxic respiratory failure 3. Right lower lobe pneumonia with probable sepsis syndrome/Acute COPD Exacerbation 4. CAD with history of CABG, demand ischemia 5. Systolic/diastolic LV dysfunction with class 0 NYHA classification LV failure 6. RV dysfunction with moderate degree of pulmonary hypertension 7. HTN 8. Hypercholesterolemia 9. Acute on chronic kidney injury with hyperkalemia 10. HIV 11. Acute hepatic injury 12. RUQ pain and cholelithiasis PLAN: 1. Antibiotics 2. BIPAP as needed 3. Increase Carvedilol to 12.5 mg BID 4. Increase Losartan to 100 mg QD and add Hydralazine 5. ASA 81 mg QD and Plavix 75 mg QD 6. Add Statins once LFT's normalizes 7. Obtain medical records including cardiac history records from her physicians in [place], [place] 8. DVT prophylaxis Continue supportive care Chato Beltran MD
--- NOTE | 2018-04-09 12:17 | PN ---
Progress Note (short form) - Note Progress Note: PULMONARY Abd pain resolved Afebrile Gen: Mildly tachypneic on VN O2 Heart: RRR Lung: decreased breath sounds at the bases Abd: soft, nontender No edema labs/meds/micro/notes reviewed ASSESSMENT AND PLAN: Altered Mental Status improved Acute on Chronic Hypoxic and Hypercapneic Respiratory Failure Acute COPD Exacerbation resolving Pneumonia Sepsis Lactic Acidosis Acute Kidney Injury Elevated LFTs +Troponins likely Demand Ischemia CAD s/p CABG HIV Abd pain resolved - NIPPV if patient permits prn - ABX - Medrol reduced - inhaled bronchodilators - O2 to keep SpO2 >90% - ASA, plavix - beta jaqui - trend LFTs - PO as tolerated Vlad RICKS MD
[2018-04-09] MEDS: hydrALAZINE HCL 25 MG TABLET (FP) PO SCH ×2 (13:12→21:20)
--- NOTE | 2018-04-09 17:41 | PN ---
Progress Note, Physician History of Present Illness: No new complaints - Current Medication List Current Medications: Active Medications Abacavir Sulfate (Ziagen -) 600 mg PO DAILY [facility] Last Admin: 04/09/18 09:33 Dose: 600 mg Albuterol Sulfate (Ventolin 0.083% Nebulizer Soln -) 1 amp NEB Q4H PRN PRN Reason: SHORT OF BREATH/WHEEZING Albuterol/Ipratropium (Duoneb -) 1 amp NEB RQID [facility] Last Admin: 04/09/18 16:17 Dose: 1 amp Aspirin (Ecotrin -) 81 mg PO DAILY [facility] Last Admin: 04/09/18 09:32 Dose: 81 mg Carvedilol (Coreg -) 12.5 mg PO BID [facility] Clopidogrel Bisulfate (Plavix -) 75 mg PO DAILY [facility] Last Admin: 04/09/18 09:32 Dose: 75 mg Heparin Sodium (Porcine) (Heparin -) 5,000 unit SQ TID [facility] Last Admin: 04/09/18 15:02 Dose: 5,000 unit Hydralazine HCl (Apresoline -) 25 mg PO BID [facility] Last Admin: 04/09/18 13:12 Dose: 25 mg Piperacillin Sod/Tazobactam (Sod 2.25 gm/ Dextrose) 50 mls @ 100 mls/hr IVPB Q8H-IV [facility]; Protocol Last Admin: 04/09/18 09:32 Dose: 100 mls/hr Lamivudine (Epivir -) 300 mg PO DAILY [facility] Last Admin: 04/09/18 09:34 Dose: 300 mg Losartan Potassium (Cozaar -) 50 mg PO BID [facility] Methylprednisolone Sodium Succinate (Solu-Medrol -) 20 mg IVPUSH Q8H-IV [facility] Morphine Sulfate (Morphine Sulfate) 3 mg IVPUSH Q4H PRN PRN Reason: PAIN LEVEL 4 - 6 Last Admin: 04/09/18 15:02 Dose: 3 mg Pantoprazole Sodium (Protonix -) 40 mg PO DAILY [facility] Last Admin: 04/09/18 09:31 Dose: 40 mg - Objective Vital Signs: Vital Signs Temperature 98.3 F 04/09/18 15:25 Pulse Rate 85 04/09/18 15:25 Respiratory Rate 22 H 04/09/18 15:25 Blood Pressure 165/102 H 04/09/18 15:25 O2 Sat by Pulse Oximetry (%) 96 04/09/18 09:00 Neck: Yes: WNL, Supple Cardiovascular: Yes: WNL, Regular Rate and Rhythm Respiratory: Yes: Diminished Gastrointestinal: Yes: WNL, Normal Bowel Sounds, Soft Labs: CBC, BMP 04/07/18 07:00 04/07/18 07:00 INR, PTT INR 1.89 (0.83-1.09) H 04/05/18 05:30 Problem List - Problems (1) Acute hypercapnic respiratory failure Assessment/Plan: Improved Sepsis/COPD/Pneumonia Cont steroids Cont IV zosyn Code(s): J96.02 - ACUTE RESPIRATORY FAILURE WITH HYPERCAPNIA (2) Altered mental status Assessment/Plan: Metabolic encephalopathy Improving Code(s): R41.82 - ALTERED MENTAL STATUS, UNSPECIFIED Qualifiers: Altered mental status type: disorientation Qualified Code(s): R41.0 - Disorientation, unspecified (3) HTN (hypertension) Code(s): I10 - ESSENTIAL (PRIMARY) HYPERTENSION
[2018-04-10] MEDS: morphine SULFATE 4 MG/ML VIAL IVPUSH PRN ×6 (00:10→22:19)
[2018-04-10] MEDS ORDERED: DEXTROSE 5%-WATER - 50 ML IVPB ONE ×3 (02:02→16:39)
[2018-04-10] MEDS ORDERED: PIPERACILLIN/TAZOBACTAM 2.25 GM VIAL IVPB ONE ×3 (02:02→16:39)
[2018-04-10] MEDS: PIPERACILLIN/TAZOB 2.25 GM 2.25 GM in DEXTROSE 5%-WATER - 50 ML IVPB SCH ×3 (02:19→17:28)
[2018-04-10] MEDS: methylPREDNISolone NA SUCC 40 MG/1 ML VIAL IVPUSH SCH ×2 (02:19→09:31)
[2018-04-10] MEDS: HEPARIN NA (PORCINE) 5,000 UNITS/ML 1ML VIAL SQ SCH ×3 (05:15→22:19)
[2018-04-10] MEDS ORDERED: INSULIN (LEVEMIR) 100 UNITS/ML UNITS SQ ONE (06:54)
[2018-04-10] MEDS ORDERED: INSULIN (NOVOLOG) ASPART 100 UNITS/ML 10ML VIAL ONE (06:54)
[2018-04-10] MEDS: ALBUTEROL SO4 2.5/IPRATROPIUM 0.5 INH SOL 3 ML VIAL.NEB. NEB SCH ×4 (07:30→20:45)
[2018-04-10] MEDS ORDERED: PT OWN MED DRAWER 7, Y5N ONE (09:26)
[2018-04-10] MEDS: LOSARTAN POTASSIUM 25 MG TABLET PO SCH ×2 (09:29→22:19)
[2018-04-10] MEDS: PANTOPRAZOLE 40 MG TABLET (FP) PO SCH (09:30)
[2018-04-10] MEDS: CARVEDILOL 6.25 MG TABLET (FP) PO SCH ×2 (09:30→22:19)
[2018-04-10] MEDS: hydrALAZINE HCL 25 MG TABLET (FP) PO SCH (09:30)
[2018-04-10] MEDS: CLOPIDOGREL BISULFATE 75 MG TABLET (FP) PO SCH (09:30)
[2018-04-10] MEDS: lamiVUDine 150 MG TABLET PO SCH (09:31)
[2018-04-10] MEDS: ASPIRIN COATED 81 MG TABLET.EC PO SCH (09:31)
[2018-04-10] MEDS: ABACAVIR SULFATE 300 MG TABLET PO SCH (09:31)
[2018-04-10] MEDS: DOLUTEGRAVIR SODIUM 50 MG TABLET (NON-FORMULARY) PO SCH (09:32)
--- NOTE | 2018-04-10 12:23 | PN ---
Progress Note, Physician Chief Complaint: Events noted Not in distress History of Present Illness: Patient was seen and examined. Awake and alert. Chart was reviewed Denies chest pain, SOB or palpitations BP still elevated although better than yesterday - Current Medication List Current Medications: Active Medications Abacavir Sulfate (Ziagen -) 600 mg PO DAILY [facility] Last Admin: 04/10/18 09:31 Dose: 600 mg Albuterol Sulfate (Ventolin 0.083% Nebulizer Soln -) 1 amp NEB Q4H PRN PRN Reason: SHORT OF BREATH/WHEEZING Albuterol/Ipratropium (Duoneb -) 1 amp NEB RQID [facility] Last Admin: 04/10/18 11:30 Dose: 1 amp Aspirin (Ecotrin -) 81 mg PO DAILY [facility] Last Admin: 04/10/18 09:31 Dose: 81 mg Carvedilol (Coreg -) 12.5 mg PO BID [facility] Last Admin: 04/10/18 09:30 Dose: 12.5 mg Clopidogrel Bisulfate (Plavix -) 75 mg PO DAILY [facility] Last Admin: 04/10/18 09:30 Dose: 75 mg Heparin Sodium (Porcine) (Heparin -) 5,000 unit SQ TID [facility] Last Admin: 04/10/18 05:15 Dose: Not Given Hydralazine HCl (Apresoline -) 25 mg PO BID [facility] Last Admin: 04/10/18 09:30 Dose: 25 mg Piperacillin Sod/Tazobactam (Sod 2.25 gm/ Dextrose) 50 mls @ 100 mls/hr IVPB Q8H-IV [facility]; Protocol Last Admin: 04/10/18 09:30 Dose: 100 mls/hr Lamivudine (Epivir -) 300 mg PO DAILY [facility] Last Admin: 04/10/18 09:31 Dose: 300 mg Losartan Potassium (Cozaar -) 50 mg PO BID [facility] Last Admin: 04/10/18 09:29 Dose: 50 mg Methylprednisolone Sodium Succinate (Solu-Medrol -) 20 mg IVPUSH Q8H-IV [facility] Last Admin: 04/10/18 09:31 Dose: 20 mg Morphine Sulfate (Morphine Sulfate) 3 mg IVPUSH Q4H PRN PRN Reason: PAIN LEVEL 4 - 6 Last Admin: 04/10/18 09:33 Dose: 3 mg Pantoprazole Sodium (Protonix -) 40 mg PO DAILY [facility] Last Admin: 04/10/18 09:30 Dose: 40 mg - Objective Vital Signs: Vital Signs Temperature 97.8 F 04/10/18 07:31 Pulse Rate 90 04/10/18 07:31 Respiratory Rate 18 04/10/18 07:31 Blood Pressure 166/104 H 04/10/18 07:31 O2 Sat by Pulse Oximetry (%) 96 04/09/18 21:00 Eyes: Yes: PERRL HENT: Yes: Atraumatic Neck: Yes: Supple Cardiovascular: Yes: Regular Rate and Rhythm, S1, S2 Respiratory: Yes: CTA Bilaterally Gastrointestinal: Yes: Normal Bowel Sounds, Soft. No: Tenderness Edema: No Additional Findings/Remarks: - Review of Systems Constitutional: denies: Chills, Fever Cardiovascular: denies: Shortness of Breath. denies: Chest Pain, Palpitations Respiratory: denies: Cough, SOB, SOB on Exertion. denies: Hemoptysis, Orthopnea , PND, Wheezing Gastrointestinal: denies: Abdominal Pain, Constipation, Diarrhea, Melena, Nausea , Rectal Bleeding, Vomiting Musculoskeletal: denies: Back Pain, Joint Pain Neurological: denies: Dizziness, Headache, Seizure, Syncope Problem List - Problems (1) HTN (hypertension) Code(s): I10 - ESSENTIAL (PRIMARY) HYPERTENSION (2) Acute hypercapnic respiratory failure Code(s): J96.02 - ACUTE RESPIRATORY FAILURE WITH HYPERCAPNIA (3) Asymptomatic cholelithiasis Code(s): K80.20 - CALCULUS OF GALLBLADDER W/O CHOLECYSTITIS W/O OBSTRUCTION (4) Demand ischemia Code(s): I24.8 - OTHER FORMS OF ACUTE ISCHEMIC HEART DISEASE (5) Toxic metabolic encephalopathy Code(s): G92 - TOXIC ENCEPHALOPATHY (7) Abnormal LFTs (liver function tests) Code(s): R94.5 - ABNORMAL RESULTS OF LIVER FUNCTION STUDIES Assessment/Plan 1. Post toxic metabolic encephalopathy 2. Acute hypercapneic/hypoxic respiratory failure 3. Right lower lobe pneumonia with probable sepsis syndrome/Acute COPD Exacerbation 4. CAD with history of CABG, demand ischemia 5. Systolic/diastolic LV dysfunction with class 0 NYHA classification LV failure 6. RV dysfunction with moderate degree of pulmonary hypertension 7. HTN 8. Hypercholesterolemia 9. Acute on chronic kidney injury with hyperkalemia 10. HIV 11. Acute hepatic injury 12. RUQ pain and cholelithiasis PLAN: 1. Antibiotics 2. BIPAP as needed 3. Carvedilol to 12.5 mg BID uptitrate as needed 4. Continue Losartan 100 mg QD and uptitrate Hydralazine as tolerated 5. ASA 81 mg QD and Plavix 75 mg QD 6. Add Statins once LFT's normalizes 7. Obtain medical records including cardiac history records from her physicians in [place], [place] 8. DVT prophylaxis Continue supportive care Chato Beltran MD
--- NOTE | 2018-04-10 13:46 | PN ---
Progress Note, Physician History of Present Illness: doing well says pain much better no nausea - Current Medication List Current Medications: Active Medications Abacavir Sulfate (Ziagen -) 600 mg PO DAILY [facility] Last Admin: 04/10/18 09:31 Dose: 600 mg Albuterol Sulfate (Ventolin 0.083% Nebulizer Soln -) 1 amp NEB Q4H PRN PRN Reason: SHORT OF BREATH/WHEEZING Albuterol/Ipratropium (Duoneb -) 1 amp NEB RQID [facility] Last Admin: 04/10/18 11:30 Dose: 1 amp Aspirin (Ecotrin -) 81 mg PO DAILY [facility] Last Admin: 04/10/18 09:31 Dose: 81 mg Carvedilol (Coreg -) 12.5 mg PO BID [facility] Last Admin: 04/10/18 09:30 Dose: 12.5 mg Clopidogrel Bisulfate (Plavix -) 75 mg PO DAILY [facility] Last Admin: 04/10/18 09:30 Dose: 75 mg Heparin Sodium (Porcine) (Heparin -) 5,000 unit SQ TID [facility] Last Admin: 04/10/18 05:15 Dose: Not Given Hydralazine HCl (Apresoline -) 50 mg PO BID [facility] Piperacillin Sod/Tazobactam (Sod 2.25 gm/ Dextrose) 50 mls @ 100 mls/hr IVPB Q8H-IV [facility]; Protocol Last Admin: 04/10/18 09:30 Dose: 100 mls/hr Lamivudine (Epivir -) 300 mg PO DAILY [facility] Last Admin: 04/10/18 09:31 Dose: 300 mg Losartan Potassium (Cozaar -) 50 mg PO BID [facility] Last Admin: 04/10/18 09:29 Dose: 50 mg Methylprednisolone Sodium Succinate (Solu-Medrol -) 20 mg IVPUSH Q8H-IV [facility] Last Admin: 04/10/18 09:31 Dose: 20 mg Morphine Sulfate (Morphine Sulfate) 3 mg IVPUSH Q4H PRN PRN Reason: PAIN LEVEL 4 - 6 Last Admin: 04/10/18 09:33 Dose: 3 mg Pantoprazole Sodium (Protonix -) 40 mg PO DAILY [facility] Last Admin: 04/10/18 09:30 Dose: 40 mg - Objective Vital Signs: Vital Signs Temperature 97.8 F 04/10/18 07:31 Pulse Rate 90 04/10/18 07:31 Respiratory Rate 18 04/10/18 07:31 Blood Pressure 166/104 H 04/10/18 07:31 O2 Sat by Pulse Oximetry (%) 96 04/09/18 21:00 Constitutional: Yes: No Distress, Calm Cardiovascular: Yes: Regular Rate and Rhythm Respiratory: Yes: Regular, CTA Bilaterally Gastrointestinal: Yes: Normal Bowel Sounds, Soft Musculoskeletal: Yes: WNL Extremities: Yes: WNL Neurological: Yes: Alert, Oriented Labs: CBC, BMP 04/07/18 07:00 04/07/18 07:00 INR, PTT INR 1.89 (0.83-1.09) H 04/05/18 05:30 Assessment/Plan Problem List - Problems (1) Acute kidney injury Code(s): N17.9 - ACUTE KIDNEY FAILURE, UNSPECIFIED (2) Demand ischemia Code(s): I24.8 - OTHER FORMS OF ACUTE ISCHEMIC HEART DISEASE (3) Acute hypercapnic respiratory failure Code(s): J96.02 - ACUTE RESPIRATORY FAILURE WITH HYPERCAPNIA (4) Altered mental status Code(s): R41.82 - ALTERED MENTAL STATUS, UNSPECIFIED Qualifiers: Altered mental status type: disorientation Qualified Code(s): R41.0 - Disorientation, unspecified (6) Aspiration pneumonia Code(s): J69.0 - PNEUMONITIS DUE TO INHALATION OF FOOD AND VOMIT Qualifiers: Aspiration pneumonia type: unspecified Laterality: right Lung location: lower lobe of lung Qualified Code(s): J69.0 - Pneumonitis due to inhalation of food and vomit (7) Toxic metabolic encephalopathy Code(s): G92 - TOXIC ENCEPHALOPATHY Altered Mental Status improved Acute on Chronic Hypoxic and Hypercapneic Respiratory Failure Acute COPD Exacerbation Pneumonia Severe Sepsis Lactic Acidosis Acute Kidney Injury Elevated LFTs +Troponins likely Demand Ischemia CAD s/p CABG HIV colitis plan close watch imaging studies noted will check wbc if wbc normalized with consider switching to oral rest as per the team
--- NOTE | 2018-04-10 13:53 | PN ---
Progress Note (short form) - Note Progress Note: PULMONARY Abd pain resolved Afebrile Gen: Mildly tachypneic on VN O2 Heart: RRR Lung: decreased breath sounds at the bases Abd: soft, nontender No edema labs/meds/micro/notes reviewed wbc downtrending ASSESSMENT AND PLAN: Altered Mental Status improved Acute on Chronic Hypoxic and Hypercapneic Respiratory Failure Acute COPD Exacerbation resolved Pneumonia Sepsis Lactic Acidosis Acute Kidney Injury Elevated LFTs +Troponins likely Demand Ischemia CAD s/p CABG HIV Abd pain resolved - NIPPV if patient permits prn - ABX PER ID - Medrol changed to prednisone - inhaled bronchodilators - O2 to keep SpO2 >90% - ASA, plavix - beta jaqui Vlad RICKS MD
[2018-04-10] MEDS: predniSONE 20 MG TABLET (UD) PO SCH (14:16)
--- NOTE | 2018-04-10 20:10 | PN ---
Progress Note, Physician - Current Medication List Current Medications: Active Medications Abacavir Sulfate (Ziagen -) 600 mg PO DAILY [facility] Last Admin: 04/10/18 09:31 Dose: 600 mg Albuterol Sulfate (Ventolin 0.083% Nebulizer Soln -) 1 amp NEB Q4H PRN PRN Reason: SHORT OF BREATH/WHEEZING Albuterol/Ipratropium (Duoneb -) 1 amp NEB RQID [facility] Last Admin: 04/10/18 15:54 Dose: 1 amp Aspirin (Ecotrin -) 81 mg PO DAILY [facility] Last Admin: 04/10/18 09:31 Dose: 81 mg Carvedilol (Coreg -) 12.5 mg PO BID [facility] Last Admin: 04/10/18 09:30 Dose: 12.5 mg Clopidogrel Bisulfate (Plavix -) 75 mg PO DAILY [facility] Last Admin: 04/10/18 09:30 Dose: 75 mg Heparin Sodium (Porcine) (Heparin -) 5,000 unit SQ TID [facility] Last Admin: 04/10/18 14:16 Dose: 5,000 unit Hydralazine HCl (Apresoline -) 50 mg PO BID [facility] Piperacillin Sod/Tazobactam (Sod 2.25 gm/ Dextrose) 50 mls @ 100 mls/hr IVPB Q8H-IV [facility]; Protocol Last Admin: 04/10/18 17:28 Dose: 100 mls/hr Lamivudine (Epivir -) 300 mg PO DAILY [facility] Last Admin: 04/10/18 09:31 Dose: 300 mg Losartan Potassium (Cozaar -) 50 mg PO BID [facility] Last Admin: 04/10/18 09:29 Dose: 50 mg Morphine Sulfate (Morphine Sulfate) 3 mg IVPUSH Q4H PRN PRN Reason: PAIN LEVEL 4 - 6 Last Admin: 04/10/18 18:16 Dose: 3 mg Pantoprazole Sodium (Protonix -) 40 mg PO DAILY [facility] Last Admin: 04/10/18 09:30 Dose: 40 mg Prednisone (Deltasone -) 20 mg PO DAILY [facility] Last Admin: 04/10/18 14:16 Dose: 20 mg - Objective Vital Signs: Vital Signs Temperature 98.3 F 04/10/18 17:09 Pulse Rate 91 H 04/10/18 17:09 Respiratory Rate 20 04/10/18 17:09 Blood Pressure 152/67 04/10/18 17:09 O2 Sat by Pulse Oximetry (%) 96 04/10/18 09:00 Neck: Yes: WNL, Supple Cardiovascular: Yes: WNL, Regular Rate and Rhythm Respiratory: Yes: Diminished Gastrointestinal: Yes: WNL, Normal Bowel Sounds, Soft Labs: CBC, BMP 04/07/18 07:00 04/07/18 07:00 INR, PTT INR 1.89 (0.83-1.09) H 04/05/18 05:30 Problem List - Problems (1) Acute hypercapnic respiratory failure Assessment/Plan: Improved Sepsis/COPD/Pneumonia Pt changed to prednisone Cont IV zosyn Code(s): J96.02 - ACUTE RESPIRATORY FAILURE WITH HYPERCAPNIA (2) Altered mental status Assessment/Plan: Metabolic encephalopathy Improving Code(s): R41.82 - ALTERED MENTAL STATUS, UNSPECIFIED Qualifiers: Altered mental status type: disorientation Qualified Code(s): R41.0 - Disorientation, unspecified (3) HTN (hypertension) Assessment/Plan: Bp fluctuating Meds being adjusted Code(s): I10 - ESSENTIAL (PRIMARY) HYPERTENSION
[2018-04-10] MEDS: hydrALAZINE HCL 50 MG TABLET (FP) PO SCH (22:19)
[2018-04-11] MEDS ORDERED: PIPERACILLIN/TAZOBACTAM 2.25 GM VIAL IVPB ONE ×2 (02:09→09:28)
[2018-04-11] MEDS ORDERED: DEXTROSE 5%-WATER - 50 ML IVPB ONE ×2 (02:09→09:28)
[2018-04-11] MEDS: PIPERACILLIN/TAZOB 2.25 GM 2.25 GM in DEXTROSE 5%-WATER - 50 ML IVPB SCH ×2 (02:16→09:37)
[2018-04-11] MEDS: morphine SULFATE 4 MG/ML VIAL IVPUSH PRN ×5 (03:42→21:45)
[2018-04-11] MEDS: HEPARIN NA (PORCINE) 5,000 UNITS/ML 1ML VIAL SQ SCH ×3 (06:28→21:41)
[2018-04-11] MEDS ORDERED: INSULIN (LEVEMIR) 100 UNITS/ML UNITS SQ ONE (06:57)
[2018-04-11] MEDS ORDERED: INSULIN (NOVOLOG) ASPART 100 UNITS/ML 10ML VIAL ONE (06:57)
[2018-04-11] MEDS: ALBUTEROL SO4 2.5/IPRATROPIUM 0.5 INH SOL 3 ML VIAL.NEB. NEB SCH ×4 (07:07→20:19)
[2018-04-11 07:38] LABS: HEMATOCRIT 42.1 % (32.4-45.2); HEMOGLOBIN 14.4 GM/dL (10.7-15.3); MCH 33.3 pg (25.7-33.7); MCHC 34.2 g/dl (32.0-36.0); MEAN CELL VOLUME 97.3 fl (80-96); PLATELET COUNT 174 K/MM3 (134-434); RBC 4.33 M/mm3 (3.60-5.2); RDW 14.9 % (11.6-15.6); WHITE BLOOD COUNT 17.4 K/mm3 (4.0-10.0)
[2018-04-11 08:02] LABS: ANION GAP 6 MMOL/L (8-16); BLOOD UREA NITROGEN 15 mg/dL (7-18); CALCIUM 9.1 mg/dL (8.5-10.1); CHLORIDE 96 mmol/L (98-107); CO2 39 mmol/L (21-32); CREATININE 0.7 mg/dL (0.55-1.3); GLUCOSE,RANDOM 73 mg/dL (74-106); POTASSIUM 4.2 mmol/L (3.5-5.1); SODIUM 140 mmol/L (136-145)
[2018-04-11] MEDS ORDERED: PT OWN MED DRAWER 7, Y5N ONE (09:28)
[2018-04-11] MEDS: LOSARTAN POTASSIUM 25 MG TABLET PO SCH ×2 (09:46→21:40)
[2018-04-11] MEDS: ASPIRIN COATED 81 MG TABLET.EC PO SCH (09:46)
[2018-04-11] MEDS: PANTOPRAZOLE 40 MG TABLET (FP) PO SCH (09:46)
[2018-04-11] MEDS: predniSONE 20 MG TABLET (UD) PO SCH (09:47)
[2018-04-11] MEDS: lamiVUDine 150 MG TABLET PO SCH (09:47)
[2018-04-11] MEDS: CLOPIDOGREL BISULFATE 75 MG TABLET (FP) PO SCH (09:48)
[2018-04-11] MEDS: CARVEDILOL 6.25 MG TABLET (FP) PO SCH ×2 (09:49→21:40)
[2018-04-11] MEDS: hydrALAZINE HCL 50 MG TABLET (FP) PO SCH ×3 (09:49→21:41)
[2018-04-11] MEDS: DOLUTEGRAVIR SODIUM 50 MG TABLET (NON-FORMULARY) PO SCH (09:51)
[2018-04-11] MEDS: ABACAVIR SULFATE 300 MG TABLET PO SCH (09:51)
--- NOTE | 2018-04-11 10:20 | PN ---
Progress Note, Physician Chief Complaint: Events noted Not in distress History of Present Illness: Patient was seen and examined. Awake and alert. Chart was reviewed Denies chest pain, SOB or palpitations Tolerating medical therapy - Current Medication List Current Medications: Active Medications Abacavir Sulfate (Ziagen -) 600 mg PO DAILY [facility] Last Admin: 04/11/18 09:51 Dose: 600 mg Albuterol Sulfate (Ventolin 0.083% Nebulizer Soln -) 1 amp NEB Q4H PRN PRN Reason: SHORT OF BREATH/WHEEZING Albuterol/Ipratropium (Duoneb -) 1 amp NEB RQID [facility] Last Admin: 04/11/18 07:07 Dose: 1 amp Aspirin (Ecotrin -) 81 mg PO DAILY [facility] Last Admin: 04/11/18 09:46 Dose: 81 mg Carvedilol (Coreg -) 12.5 mg PO BID [facility] Last Admin: 04/11/18 09:49 Dose: 12.5 mg Clopidogrel Bisulfate (Plavix -) 75 mg PO DAILY [facility] Last Admin: 04/11/18 09:48 Dose: 75 mg Heparin Sodium (Porcine) (Heparin -) 5,000 unit SQ TID [facility] Last Admin: 04/11/18 06:28 Dose: 5,000 unit Hydralazine HCl (Apresoline -) 50 mg PO BID [facility] Last Admin: 04/11/18 09:49 Dose: 50 mg Piperacillin Sod/Tazobactam (Sod 2.25 gm/ Dextrose) 50 mls @ 100 mls/hr IVPB Q8H-IV [facility]; Protocol Last Admin: 04/11/18 09:37 Dose: 100 mls/hr Lamivudine (Epivir -) 300 mg PO DAILY [facility] Last Admin: 04/11/18 09:47 Dose: 300 mg Losartan Potassium (Cozaar -) 50 mg PO BID [facility] Last Admin: 04/11/18 09:46 Dose: 50 mg Morphine Sulfate (Morphine Sulfate) 3 mg IVPUSH Q4H PRN PRN Reason: PAIN LEVEL 4 - 6 Last Admin: 04/11/18 09:34 Dose: 3 mg Pantoprazole Sodium (Protonix -) 40 mg PO DAILY [facility] Last Admin: 04/11/18 09:46 Dose: 40 mg Prednisone (Deltasone -) 20 mg PO DAILY [facility] Last Admin: 04/11/18 09:47 Dose: 20 mg - Objective Vital Signs: Vital Signs Temperature 98.4 F 04/11/18 06:00 Pulse Rate 86 04/11/18 06:00 Respiratory Rate 20 04/11/18 06:00 Blood Pressure 163/99 04/11/18 06:00 O2 Sat by Pulse Oximetry (%) 96 04/10/18 09:00 Eyes: Yes: PERRL HENT: Yes: Atraumatic Neck: Yes: Supple Cardiovascular: Yes: Regular Rate and Rhythm, S1, S2 Respiratory: Yes: CTA Bilaterally Edema: No Labs: CBC, BMP 04/11/18 06:45 04/11/18 06:45 INR, PTT INR 1.89 (0.83-1.09) H 04/05/18 05:30 Problem List - Problems (1) HTN (hypertension) Code(s): I10 - ESSENTIAL (PRIMARY) HYPERTENSION (2) Acute hypercapnic respiratory failure Code(s): J96.02 - ACUTE RESPIRATORY FAILURE WITH HYPERCAPNIA (3) Asymptomatic cholelithiasis Code(s): K80.20 - CALCULUS OF GALLBLADDER W/O CHOLECYSTITIS W/O OBSTRUCTION (4) Demand ischemia Code(s): I24.8 - OTHER FORMS OF ACUTE ISCHEMIC HEART DISEASE (5) Toxic metabolic encephalopathy Code(s): G92 - TOXIC ENCEPHALOPATHY (7) Abnormal LFTs (liver function tests) Code(s): R94.5 - ABNORMAL RESULTS OF LIVER FUNCTION STUDIES Assessment/Plan 1. Post toxic metabolic encephalopathy 2. Acute hypercapneic/hypoxic respiratory failure 3. Right lower lobe pneumonia with probable sepsis syndrome/Acute COPD Exacerbation 4. CAD with history of CABG, demand ischemia 5. Systolic/diastolic LV dysfunction with class 0 NYHA classification LV failure 6. RV dysfunction with moderate degree of pulmonary hypertension 7. HTN 8. Hypercholesterolemia 9. Acute on chronic kidney injury with hyperkalemia 10. HIV 11. Acute hepatic injury 12. RUQ pain and cholelithiasis PLAN: 1. Antibiotics 2. BIPAP as needed 3. Carvedilol to 12.5 mg BID uptitrate as needed 4. Continue Losartan 100 mg QD and uptitrate Hydralazine to 50 mg TID 5. ASA 81 mg QD and Plavix 75 mg QD 6. Add Statins once LFT's normalizes 7. Obtain medical records including cardiac history records from her physicians in [place], [place] 8. DVT prophylaxis Continue supportive care Chato Beltran MD
--- NOTE | 2018-04-11 11:49 | PN ---
Progress Note (short form) - Note Progress Note: PULMONARY Breathing improving but not at baseline. +nonproductive cough. On 50% ventimask. Vital Signs Period Temp Pulse Resp BP Sys/Buck Pulse Ox Last 24 Hr 98.1 F-98.9 F 81-91 20-22 152-186/67-105 Gen: more alert, awake Heart: RRR Lung: distant breath sounds Abd: soft, nontender Ext: no edema CBC, BMP 04/11/18 06:45 04/11/18 06:45 Active Medications Abacavir Sulfate (Ziagen -) 600 mg PO DAILY [facility] Last Admin: 04/11/18 09:51 Dose: 600 mg Albuterol Sulfate (Ventolin 0.083% Nebulizer Soln -) 1 amp NEB Q4H PRN PRN Reason: SHORT OF BREATH/WHEEZING Albuterol/Ipratropium (Duoneb -) 1 amp NEB RQID [facility] Last Admin: 04/11/18 11:37 Dose: 1 amp Aspirin (Ecotrin -) 81 mg PO DAILY [facility] Last Admin: 04/11/18 09:46 Dose: 81 mg Carvedilol (Coreg -) 12.5 mg PO BID [facility] Last Admin: 04/11/18 09:49 Dose: 12.5 mg Clopidogrel Bisulfate (Plavix -) 75 mg PO DAILY [facility] Last Admin: 04/11/18 09:48 Dose: 75 mg Heparin Sodium (Porcine) (Heparin -) 5,000 unit SQ TID [facility] Last Admin: 04/11/18 06:28 Dose: 5,000 unit Hydralazine HCl (Apresoline -) 50 mg PO TID [facility] Piperacillin Sod/Tazobactam (Sod 2.25 gm/ Dextrose) 50 mls @ 100 mls/hr IVPB Q8H-IV [facility]; Protocol Last Admin: 04/11/18 09:37 Dose: 100 mls/hr Lamivudine (Epivir -) 300 mg PO DAILY [facility] Last Admin: 04/11/18 09:47 Dose: 300 mg Losartan Potassium (Cozaar -) 50 mg PO BID [facility] Last Admin: 04/11/18 09:46 Dose: 50 mg Morphine Sulfate (Morphine Sulfate) 3 mg IVPUSH Q4H PRN PRN Reason: PAIN LEVEL 4 - 6 Last Admin: 04/11/18 09:34 Dose: 3 mg Pantoprazole Sodium (Protonix -) 40 mg PO DAILY [facility] Last Admin: 04/11/18 09:46 Dose: 40 mg Prednisone (Deltasone -) 20 mg PO DAILY [facility] Last Admin: 04/11/18 09:47 Dose: 20 mg A/P Altered Mental Status improving Acute on Chronic Hypoxic and Hypercapneic Respiratory Failure Acute COPD Exacerbation Pneumonia Severe Sepsis Lactic Acidosis Acute Kidney Injury Elevated LFTs +Troponins likely Demand Ischemia CAD s/p CABG HIV - complete antibiotics - prednisone taper - inhaled bronchodilators - O2 to keep SpO2 >90% - BiPAP as needed to assist in work of breathing - ASA, plavix - beta jaqui - PO as tolerated - DVT prophylaxis - check ambulatory SpO2 on room air to assess for home O2
--- NOTE | 2018-04-11 11:52 | PN ---
Progress Note, Physician History of Present Illness: no complaints of abd pain patient improving from pul no complaints - Current Medication List Current Medications: Active Medications Abacavir Sulfate (Ziagen -) 600 mg PO DAILY [facility] Last Admin: 04/11/18 09:51 Dose: 600 mg Albuterol Sulfate (Ventolin 0.083% Nebulizer Soln -) 1 amp NEB Q4H PRN PRN Reason: SHORT OF BREATH/WHEEZING Albuterol/Ipratropium (Duoneb -) 1 amp NEB RQID [facility] Last Admin: 04/11/18 11:37 Dose: 1 amp Aspirin (Ecotrin -) 81 mg PO DAILY [facility] Last Admin: 04/11/18 09:46 Dose: 81 mg Carvedilol (Coreg -) 12.5 mg PO BID [facility] Last Admin: 04/11/18 09:49 Dose: 12.5 mg Clopidogrel Bisulfate (Plavix -) 75 mg PO DAILY [facility] Last Admin: 04/11/18 09:48 Dose: 75 mg Heparin Sodium (Porcine) (Heparin -) 5,000 unit SQ TID [facility] Last Admin: 04/11/18 06:28 Dose: 5,000 unit Hydralazine HCl (Apresoline -) 50 mg PO TID [facility] Lamivudine (Epivir -) 300 mg PO DAILY [facility] Last Admin: 04/11/18 09:47 Dose: 300 mg Losartan Potassium (Cozaar -) 50 mg PO BID [facility] Last Admin: 04/11/18 09:46 Dose: 50 mg Morphine Sulfate (Morphine Sulfate) 3 mg IVPUSH Q4H PRN PRN Reason: PAIN LEVEL 4 - 6 Last Admin: 04/11/18 09:34 Dose: 3 mg Pantoprazole Sodium (Protonix -) 40 mg PO DAILY [facility] Last Admin: 04/11/18 09:46 Dose: 40 mg Prednisone (Deltasone -) 20 mg PO DAILY [facility] Last Admin: 04/11/18 09:47 Dose: 20 mg - Objective Vital Signs: Vital Signs Temperature 98.4 F 04/11/18 06:00 Pulse Rate 86 04/11/18 06:00 Respiratory Rate 20 04/11/18 06:00 Blood Pressure 163/99 04/11/18 06:00 O2 Sat by Pulse Oximetry (%) 96 04/10/18 09:00 Constitutional: Yes: No Distress, Calm Cardiovascular: Yes: Regular Rate and Rhythm Respiratory: Yes: Regular, CTA Bilaterally Gastrointestinal: Yes: Normal Bowel Sounds, Soft Musculoskeletal: Yes: WNL Extremities: Yes: WNL Neurological: Yes: Alert, Oriented Psychiatric: Yes: Alert, Oriented Labs: CBC, BMP 04/11/18 06:45 04/11/18 06:45 INR, PTT INR 1.89 (0.83-1.09) H 04/05/18 05:30 Assessment/Plan Problem List - Problems (1) Acute kidney injury Code(s): N17.9 - ACUTE KIDNEY FAILURE, UNSPECIFIED (2) Demand ischemia Code(s): I24.8 - OTHER FORMS OF ACUTE ISCHEMIC HEART DISEASE (3) Acute hypercapnic respiratory failure Code(s): J96.02 - ACUTE RESPIRATORY FAILURE WITH HYPERCAPNIA (4) Altered mental status Code(s): R41.82 - ALTERED MENTAL STATUS, UNSPECIFIED Qualifiers: Altered mental status type: disorientation Qualified Code(s): R41.0 - Disorientation, unspecified (6) Aspiration pneumonia Code(s): J69.0 - PNEUMONITIS DUE TO INHALATION OF FOOD AND VOMIT Qualifiers: Aspiration pneumonia type: unspecified Laterality: right Lung location: lower lobe of lung Qualified Code(s): J69.0 - Pneumonitis due to inhalation of food and vomit (7) Toxic metabolic encephalopathy Code(s): G92 - TOXIC ENCEPHALOPATHY Altered Mental Status improved Acute on Chronic Hypoxic and Hypercapneic Respiratory Failure Acute COPD Exacerbation Pneumonia Severe Sepsis Lactic Acidosis Acute Kidney Injury Elevated LFTs +Troponins likely Demand Ischemia CAD s/p CABG HIV colitis plan will switch to oral abx close watch rest as per pul and primary team
--- NOTE | 2018-04-11 16:30 | PN ---
Progress Note, Physician History of Present Illness: comfortable - Current Medication List Current Medications: Active Medications Abacavir Sulfate (Ziagen -) 600 mg PO DAILY [facility] Last Admin: 04/11/18 09:51 Dose: 600 mg Albuterol Sulfate (Ventolin 0.083% Nebulizer Soln -) 1 amp NEB Q4H PRN PRN Reason: SHORT OF BREATH/WHEEZING Albuterol/Ipratropium (Duoneb -) 1 amp NEB RQID [facility] Last Admin: 04/11/18 16:13 Dose: 1 amp Amoxicillin/Clavulanate Potassium (Augmentin - 875mg Tablet) 1 tab PO BID@0800, 1730 [facility] Aspirin (Ecotrin -) 81 mg PO DAILY [facility] Last Admin: 04/11/18 09:46 Dose: 81 mg Carvedilol (Coreg -) 12.5 mg PO BID [facility] Last Admin: 04/11/18 09:49 Dose: 12.5 mg Clopidogrel Bisulfate (Plavix -) 75 mg PO DAILY [facility] Last Admin: 04/11/18 09:48 Dose: 75 mg Heparin Sodium (Porcine) (Heparin -) 5,000 unit SQ TID [facility] Last Admin: 04/11/18 13:49 Dose: 5,000 unit Hydralazine HCl (Apresoline -) 50 mg PO TID [facility] Last Admin: 04/11/18 13:50 Dose: 50 mg Lamivudine (Epivir -) 300 mg PO DAILY [facility] Last Admin: 04/11/18 09:47 Dose: 300 mg Losartan Potassium (Cozaar -) 50 mg PO BID [facility] Last Admin: 04/11/18 09:46 Dose: 50 mg Morphine Sulfate (Morphine Sulfate) 3 mg IVPUSH Q4H PRN PRN Reason: PAIN LEVEL 4 - 6 Last Admin: 04/11/18 13:44 Dose: 3 mg Pantoprazole Sodium (Protonix -) 40 mg PO DAILY [facility] Last Admin: 04/11/18 09:46 Dose: 40 mg Prednisone (Deltasone -) 20 mg PO DAILY [facility] Last Admin: 04/11/18 09:47 Dose: 20 mg - Objective Vital Signs: Vital Signs Temperature 97.9 F 04/11/18 13:20 Pulse Rate 94 H 04/11/18 13:59 Respiratory Rate 18 04/11/18 13:20 Blood Pressure 179/97 H 04/11/18 13:20 O2 Sat by Pulse Oximetry (%) 90 L 04/11/18 13:59 Constitutional: Yes: No Distress HENT: Yes: Atraumatic Neck: Yes: Supple Cardiovascular: Yes: Regular Rate and Rhythm Respiratory: Yes: CTA Bilaterally Gastrointestinal: Yes: Normal Bowel Sounds Extremities: Yes: WNL Edema: No Peripheral Pulses WNL: Yes Neurological: Yes: Alert, Oriented Labs: CBC, BMP 04/11/18 06:45 04/11/18 06:45 INR, PTT INR 1.89 (0.83-1.09) H 04/05/18 05:30 Problem List - Problems (1) Acute hypercapnic respiratory failure Assessment/Plan: on room air Code(s): J96.02 - ACUTE RESPIRATORY FAILURE WITH HYPERCAPNIA (2) Acute kidney injury Assessment/Plan: iv hydration cr wnl Code(s): N17.9 - ACUTE KIDNEY FAILURE, UNSPECIFIED (3) Altered mental status Assessment/Plan: alert and oriented Code(s): R41.82 - ALTERED MENTAL STATUS, UNSPECIFIED Qualifiers: Altered mental status type: disorientation Qualified Code(s): R41.0 - Disorientation, unspecified (4) Aspiration pneumonia Code(s): J69.0 - PNEUMONITIS DUE TO INHALATION OF FOOD AND VOMIT Qualifiers: Aspiration pneumonia type: unspecified Laterality: right Lung location: lower lobe of lung Qualified Code(s): J69.0 - Pneumonitis due to inhalation of food and vomit (5) Asthma Code(s): J45.909 - UNSPECIFIED ASTHMA, UNCOMPLICATED (7) Neuropathy Code(s): G62.9 - POLYNEUROPATHY, UNSPECIFIED (8) Demand ischemia Code(s): I24.8 - OTHER FORMS OF ACUTE ISCHEMIC HEART DISEASE
[2018-04-11] MEDS: AMOX TR/POT CLAV 875MG/125MG TABLETS (FP) PO SCH (17:42)
[2018-04-12] MEDS: morphine SULFATE 4 MG/ML VIAL IVPUSH PRN ×2 (01:41→05:28)
[2018-04-12] MEDS: HEPARIN NA (PORCINE) 5,000 UNITS/ML 1ML VIAL SQ SCH (05:28)
[2018-04-12] MEDS: hydrALAZINE HCL 50 MG TABLET (FP) PO SCH (05:29)
[2018-04-12] MEDS: AMOX TR/POT CLAV 875MG/125MG TABLETS (FP) PO SCH (08:00)
[2018-04-12] MEDS: ALBUTEROL SO4 2.5/IPRATROPIUM 0.5 INH SOL 3 ML VIAL.NEB. NEB SCH ×2 (08:48→12:36)
[2018-04-12] MEDS ORDERED: PT OWN MED DRAWER 7, Y5N ONE (09:23)
[2018-04-12] MEDS: predniSONE 20 MG TABLET (UD) PO SCH (09:26)
[2018-04-12] MEDS: LOSARTAN POTASSIUM 25 MG TABLET PO SCH (09:26)
[2018-04-12] MEDS: ASPIRIN COATED 81 MG TABLET.EC PO SCH (09:26)
[2018-04-12] MEDS: CARVEDILOL 6.25 MG TABLET (FP) PO SCH (09:26)
[2018-04-12] MEDS: ABACAVIR SULFATE 300 MG TABLET PO SCH (09:27)
[2018-04-12] MEDS: CLOPIDOGREL BISULFATE 75 MG TABLET (FP) PO SCH (09:27)
[2018-04-12] MEDS: lamiVUDine 150 MG TABLET PO SCH (09:27)
[2018-04-12] MEDS: PANTOPRAZOLE 40 MG TABLET (FP) PO SCH (09:28)
[2018-04-12] MEDS: DOLUTEGRAVIR SODIUM 50 MG TABLET (NON-FORMULARY) PO SCH (09:28)
--- NOTE | 2018-04-12 11:58 | PN ---
Progress Note, Physician Chief Complaint: Events noted Not in distress History of Present Illness: Patient was seen and examined. Awake and alert. Chart was reviewed Denies chest pain, SOB or palpitations Tolerating medical therapy - Current Medication List Current Medications: Active Medications Abacavir Sulfate (Ziagen -) 600 mg PO DAILY [facility] Last Admin: 04/12/18 09:27 Dose: 600 mg Albuterol Sulfate (Ventolin 0.083% Nebulizer Soln -) 1 amp NEB Q4H PRN PRN Reason: SHORT OF BREATH/WHEEZING Last Admin: 04/11/18 23:25 Dose: 1 amp Albuterol/Ipratropium (Duoneb -) 1 amp NEB RQID [facility] Last Admin: 04/12/18 08:48 Dose: 1 amp Amoxicillin/Clavulanate Potassium (Augmentin - 875mg Tablet) 1 tab PO BID@0800, 1730 [facility] Last Admin: 04/12/18 08:00 Dose: 1 tab Aspirin (Ecotrin -) 81 mg PO DAILY [facility] Last Admin: 04/12/18 09:26 Dose: 81 mg Carvedilol (Coreg -) 12.5 mg PO BID [facility] Last Admin: 04/12/18 09:26 Dose: 12.5 mg Clopidogrel Bisulfate (Plavix -) 75 mg PO DAILY [facility] Last Admin: 04/12/18 09:27 Dose: 75 mg Heparin Sodium (Porcine) (Heparin -) 5,000 unit SQ TID [facility] Last Admin: 04/12/18 05:28 Dose: 5,000 unit Hydralazine HCl (Apresoline -) 50 mg PO TID [facility] Last Admin: 04/12/18 05:29 Dose: 50 mg Lamivudine (Epivir -) 300 mg PO DAILY [facility] Last Admin: 04/12/18 09:27 Dose: 300 mg Losartan Potassium (Cozaar -) 50 mg PO BID [facility] Last Admin: 04/12/18 09:26 Dose: 50 mg Morphine Sulfate (Morphine Sulfate) 3 mg IVPUSH Q4H PRN PRN Reason: PAIN LEVEL 4 - 6 Last Admin: 04/12/18 05:28 Dose: 3 mg Pantoprazole Sodium (Protonix -) 40 mg PO DAILY [facility] Last Admin: 04/12/18 09:28 Dose: 40 mg Prednisone (Deltasone -) 20 mg PO DAILY [facility] Last Admin: 04/12/18 09:26 Dose: 20 mg - Objective Vital Signs: Vital Signs Temperature 98.6 F 04/11/18 18:00 Pulse Rate 85 04/12/18 01:40 Respiratory Rate 20 04/12/18 01:40 Blood Pressure 143/94 04/12/18 01:40 O2 Sat by Pulse Oximetry (%) 91 L 04/11/18 21:00 Eyes: Yes: PERRL HENT: Yes: Atraumatic Neck: Yes: Supple Cardiovascular: Yes: Regular Rate and Rhythm, S1, S2 Respiratory: Yes: CTA Bilaterally Gastrointestinal: Yes: Normal Bowel Sounds, Soft. No: Tenderness Edema: No Labs: CBC, BMP 04/11/18 06:45 04/11/18 06:45 Problem List - Problems (1) HTN (hypertension) Code(s): I10 - ESSENTIAL (PRIMARY) HYPERTENSION (2) Acute hypercapnic respiratory failure Code(s): J96.02 - ACUTE RESPIRATORY FAILURE WITH HYPERCAPNIA (3) Asymptomatic cholelithiasis Code(s): K80.20 - CALCULUS OF GALLBLADDER W/O CHOLECYSTITIS W/O OBSTRUCTION (4) Demand ischemia Code(s): I24.8 - OTHER FORMS OF ACUTE ISCHEMIC HEART DISEASE (5) Toxic metabolic encephalopathy Code(s): G92 - TOXIC ENCEPHALOPATHY (7) Abnormal LFTs (liver function tests) Code(s): R94.5 - ABNORMAL RESULTS OF LIVER FUNCTION STUDIES Assessment/Plan 1. Post toxic metabolic encephalopathy 2. Acute hypercapneic/hypoxic respiratory failure 3. Right lower lobe pneumonia with probable sepsis syndrome/Acute COPD Exacerbation 4. CAD with history of CABG, demand ischemia 5. Systolic/diastolic LV dysfunction with class 0 NYHA classification LV failure 6. RV dysfunction with moderate degree of pulmonary hypertension 7. HTN 8. Hypercholesterolemia 9. Acute on chronic kidney injury with hyperkalemia 10. HIV 11. Acute hepatic injury 12. RUQ pain and cholelithiasis PLAN: 1. Antibiotics 2. BIPAP as needed 3. Carvedilol to 12.5 mg BID 4. Continue Losartan 100 mg QD and Hydralazine to 50 mg TID 5. ASA 81 mg QD and Plavix 75 mg QD 6. Add Statins once LFT's normalizes 7. DVT prophylaxis Discharge planning Chato Beltran MD
--- NOTE | 2018-04-12 12:17 | PN ---
Progress Note, Physician - Current Medication List Current Medications: Active Medications Abacavir Sulfate (Ziagen -) 600 mg PO DAILY [facility] Last Admin: 04/12/18 09:27 Dose: 600 mg Albuterol Sulfate (Ventolin 0.083% Nebulizer Soln -) 1 amp NEB Q4H PRN PRN Reason: SHORT OF BREATH/WHEEZING Last Admin: 04/11/18 23:25 Dose: 1 amp Albuterol/Ipratropium (Duoneb -) 1 amp NEB RQID [facility] Last Admin: 04/12/18 08:48 Dose: 1 amp Amoxicillin/Clavulanate Potassium (Augmentin - 875mg Tablet) 1 tab PO BID@0800, 1730 [facility] Last Admin: 04/12/18 08:00 Dose: 1 tab Aspirin (Ecotrin -) 81 mg PO DAILY [facility] Last Admin: 04/12/18 09:26 Dose: 81 mg Carvedilol (Coreg -) 12.5 mg PO BID [facility] Last Admin: 04/12/18 09:26 Dose: 12.5 mg Clopidogrel Bisulfate (Plavix -) 75 mg PO DAILY [facility] Last Admin: 04/12/18 09:27 Dose: 75 mg Heparin Sodium (Porcine) (Heparin -) 5,000 unit SQ TID [facility] Last Admin: 04/12/18 05:28 Dose: 5,000 unit Hydralazine HCl (Apresoline -) 50 mg PO TID [facility] Last Admin: 04/12/18 05:29 Dose: 50 mg Lamivudine (Epivir -) 300 mg PO DAILY [facility] Last Admin: 04/12/18 09:27 Dose: 300 mg Losartan Potassium (Cozaar -) 50 mg PO BID [facility] Last Admin: 04/12/18 09:26 Dose: 50 mg Morphine Sulfate (Morphine Sulfate) 3 mg IVPUSH Q4H PRN PRN Reason: PAIN LEVEL 4 - 6 Last Admin: 04/12/18 05:28 Dose: 3 mg Pantoprazole Sodium (Protonix -) 40 mg PO DAILY [facility] Last Admin: 04/12/18 09:28 Dose: 40 mg Prednisone (Deltasone -) 20 mg PO DAILY [facility] Last Admin: 04/12/18 09:26 Dose: 20 mg - Objective Vital Signs: Vital Signs Temperature 98.6 F 04/11/18 18:00 Pulse Rate 85 04/12/18 01:40 Respiratory Rate 20 04/12/18 01:40 Blood Pressure 143/94 04/12/18 01:40 O2 Sat by Pulse Oximetry (%) 91 L 04/11/18 21:00 Labs: CBC, BMP 04/11/18 06:45 04/11/18 06:45 INR, PTT INR 1.89 (0.83-1.09) H 04/05/18 05:30 Assessment/Plan A/P Altered Mental Status improving Acute on Chronic Hypoxic and Hypercapneic Respiratory Failure Acute COPD Exacerbation Pneumonia Severe Sepsis Lactic Acidosis Acute Kidney Injury Elevated LFTs +Troponins likely Demand Ischemia CAD s/p CABG HIV - complete antibiotics - prednisone taper - inhaled bronchodilators - O2 to keep SpO2 >90% - BiPAP as needed to assist in work of breathing - ASA, plavix - beta jaqui - PO as tolerated - DVT prophylaxis - check ambulatory SpO2 on room air to assess for home O2
[2018-04-12 12:25] VITALS: BP 160/103; PULSE 102; TEMP 98.7
--- NOTE | 2018-04-12 13:32 | PN ---
Progress Note, Physician - Current Medication List Current Medications: Active Medications Abacavir Sulfate (Ziagen -) 600 mg PO DAILY [facility] Last Admin: 04/12/18 09:27 Dose: 600 mg Albuterol Sulfate (Ventolin 0.083% Nebulizer Soln -) 1 amp NEB Q4H PRN PRN Reason: SHORT OF BREATH/WHEEZING Last Admin: 04/11/18 23:25 Dose: 1 amp Albuterol/Ipratropium (Duoneb -) 1 amp NEB RQID [facility] Last Admin: 04/12/18 12:36 Dose: 1 amp Amoxicillin/Clavulanate Potassium (Augmentin - 875mg Tablet) 1 tab PO BID@0800, 1730 [facility] Last Admin: 04/12/18 08:00 Dose: 1 tab Aspirin (Ecotrin -) 81 mg PO DAILY [facility] Last Admin: 04/12/18 09:26 Dose: 81 mg Carvedilol (Coreg -) 12.5 mg PO BID [facility] Last Admin: 04/12/18 09:26 Dose: 12.5 mg Clopidogrel Bisulfate (Plavix -) 75 mg PO DAILY [facility] Last Admin: 04/12/18 09:27 Dose: 75 mg Heparin Sodium (Porcine) (Heparin -) 5,000 unit SQ TID [facility] Last Admin: 04/12/18 05:28 Dose: 5,000 unit Hydralazine HCl (Apresoline -) 50 mg PO TID [facility] Last Admin: 04/12/18 05:29 Dose: 50 mg Lamivudine (Epivir -) 300 mg PO DAILY [facility] Last Admin: 04/12/18 09:27 Dose: 300 mg Losartan Potassium (Cozaar -) 50 mg PO BID [facility] Last Admin: 04/12/18 09:26 Dose: 50 mg Morphine Sulfate (Morphine Sulfate) 3 mg IVPUSH Q4H PRN PRN Reason: PAIN LEVEL 4 - 6 Last Admin: 04/12/18 05:28 Dose: 3 mg Pantoprazole Sodium (Protonix -) 40 mg PO DAILY [facility] Last Admin: 04/12/18 09:28 Dose: 40 mg Prednisone (Deltasone -) 20 mg PO DAILY [facility] Last Admin: 04/12/18 09:26 Dose: 20 mg - Objective Vital Signs: Vital Signs Temperature 98.7 F 04/12/18 10:00 Pulse Rate 102 H 04/12/18 10:00 Respiratory Rate 20 04/12/18 10:00 Blood Pressure 160/103 H 04/12/18 10:00 O2 Sat by Pulse Oximetry (%) 95 04/12/18 09:00 Labs: CBC, BMP 04/11/18 06:45 04/11/18 06:45 INR, PTT INR 1.89 (0.83-1.09) H 04/05/18 05:30
--- NOTE | 2018-04-12 14:57 | DS ---
Physical Examination Vital Signs: Vital Signs Temperature 98.7 F 04/12/18 10:00 Pulse Rate 102 H 04/12/18 10:00 Respiratory Rate 20 04/12/18 10:00 Blood Pressure 160/103 H 04/12/18 10:00 O2 Sat by Pulse Oximetry (%) 95 04/12/18 09:00 Constitutional: Yes: No Distress HENT: Yes: Atraumatic Neck: Yes: Supple Cardiovascular: Yes: Regular Rate and Rhythm Respiratory: Yes: CTA Bilaterally Gastrointestinal: Yes: Normal Bowel Sounds Extremities: Yes: WNL Edema: No Neurological: Yes: Alert, Oriented Labs: CBC, BMP 04/11/18 06:45 04/11/18 06:45 Discharge Summary Reason For Visit: SEPSIS,AMS,HUMAN IMMUNODEFICIENCY VIRUS Condition: Fair - Instructions Disposition: TRANSFER ACUTE CARE/OTHER HOSP - Home Medications Comprehensive Discharge Medication List: Ambulatory Orders Gabapentin [Neurontin -] 800 mg PO Q8H 04/04/18 Morphine *Sr* [MS Contin -] 30 mg PO Q8H 04/04/18 Ranolazine [Ranexa -] 500 mg PO BID 04/04/18 Abacavir/Dolutegravir/Lamivudi [Triumeq 600-50-300 mg Tablet] 1 each PO DAILY Albuterol Sulfate Inhaler - [Ventolin HFA Inhaler -] 2 inh PO DAILY 04/05/18 Alendronate Sodium/Vitamin D3 [Fosamax Plus D 70 mg-5,600 Iu vIT d] 1 each PO Q7D 04/05/18 Aspirin Coated [Ecotrin -] 81 mg PO DAILY 04/05/18 Calcium Carbonate/Vitamin D3 [Calcium 500-Vit D3 200 Caplet] 1 tab PO DAILY Clopidogrel Bisulfate [Plavix] 75 mg PO DAILY 04/05/18 Escitalopram Oxalate [Lexapro -] 10 mg PO DAILY 04/05/18 Fluticasone/Salmeterol [Advair Hfa 230-21 Mcg Inhaler] 2 puff IH BID 04/05/18 Gabapentin 800 mg PO TID 04/05/18 Morphine Sulfate 30 mg PO Q8H PRN 04/05/18 Multivitamin [One Daily] 1 each PO DAILY 04/05/18 Nicotine [Nicotrol Ns] 1 dose IH DAILY PRN 04/05/18 Pantoprazole Sodium [Protonix -] 20 mg PO DAILY 04/05/18 Simvastatin 10 mg PO DAILY 04/05/18 Albuterol 0.083% Nebulizer Sun [Ventolin 0.083% Nebulizer Soln -] 1 amp NEB Q4H PRN #7 amp 04/11/18 Amox-Tr/K Cl [Augmentin 875-125mg Tablet -] 1 tab PO BID@0800,1730 #10 tablet Carvedilol [Coreg -] 12.5 mg PO BID #60 tablet 04/11/18 Losartan Potassium [Cozaar -] 50 mg PO BID #30 tablet 04/11/18 Prednisone 10 mg PO ASDIR #12 tablet 04/11/18 hydrALAZINE HCL [Apresoline -] 50 mg PO TID #90 tablet 04/12/18 [facility]
== END 2018-04-12 14:34 | disposition home or self-care (01) | DRG 871 ==
LOC: JER 06:13 → JERBED 08:53 → JICU 16:09 → J5S 04-06 17:13
PROVIDERS: ADMIT Internal Medicine; ATTEND Internal Medicine
DX: A41.9 Sepsis, unspecified organism (principal); J96.01 Acute respiratory failure with hypoxia; J69.0 Pneumonitis due to inhalation of food and vomit; J96.02 Acute respiratory failure with hypercapnia; G92 Toxic encephalopathy; N17.9 Acute kidney failure, unspecified; E87.2 Acidosis; J44.1 Chronic obstructive pulmonary disease with (acute) exacerbation; R64 Cachexia; G62.9 Polyneuropathy, unspecified; F17.210 Nicotine dependence, cigarettes, uncomplicated; I25.10 Atherosclerotic heart disease of native coronary artery without angina pectoris; E87.5 Hyperkalemia; Z68.22 Body mass index [BMI] 22.0-22.9, adult; R74.8 Abnormal levels of other serum enzymes; G89.29 Other chronic pain; R10.9 Unspecified abdominal pain; K80.20 Calculus of gallbladder without cholecystitis without obstruction; I27.20 Pulmonary hypertension, unspecified; R94.5 Abnormal results of liver function studies; Z95.5 Presence of coronary angioplasty implant and graft; Z95.1 Presence of aortocoronary bypass graft
CPT/HCPCS: 36415; 36600; 70450-TC; 71045-TC-FY; 71250-TC; 74176-TC; 76705-TC; 80048; 80053; 80307; 81003; 81015; 82140; 82272; 82375; 82550; 82553; 82803; 82962; 83036; 83050; 83605; 83615; 83690; 83735; 84100; 84484; 85025; 85027; 85610; 85730; 86359; 86360; 86850; 86900; 86901; 87040; 87070; 87081; 87086; 87177; 87186; 87205; 87209; 87324; 87328; 87329; 87449; 87804; 87899; 93005; 93010; 93306-TC; 94640; 94660; 94761; 99285-25; J1644; J7030

== ENCOUNTER 2018-07-05 12:36 | Inpatient (IN) | payer OTHER ==
--- NOTE | 2018-07-05 13:49 | PDOC ---
History of Present Illness - General Chief Complaint: Shortness of Breath Stated Complaint: SOB History Source: Patient, Care Provider (school bus aide present at bedside.), Old Records, Primary Care Provider (Prearrival notification received from Dr. Blake) Exam Limitations: No Limitations - History of Present Illness Initial Comments: HPI: 67 y/o female BIBEMS to [facility] ER from [facility] on referral from Dr. Blake. Pt complaining of shortness of breath with exertion and a 20lb weight gain. Pts home energy auditor is present at bedside and reports the pt has used her home oxygen with increased frequency over the past week. Pt denies SOB at time of interview. Endorses swelling to lower extremities and nonproductive cough. Denies paroxysmal nocturnal dyspnea or orthopnea. No history of CHF. Denies recent change in medications. Transfer note requests evaluation for CHF and DVT. Was evaluated by Dr. Fitzgerald in 2017. Echo dated 04 Apr 2018 revealed EF 50-55 % with normal LV size but low-normal function. Moderate to severe tricuspid regurgitation with reduced RV systolic function. PCP: Dr. Blake Medical Hx: - CHF, tricuspid regurgitation with reduced RV systolic function - HTN - CAD s/p CABG - PVD with stenting to bilateral lower extremities - HIV, last CD4 440 with undetectable viral load. On Triumeq - Hep C, s/p treatment Past History - Past Medical History Allergies/Adverse Reactions: Allergies Allergy/AdvReac Type Severity Reaction Status Date / Time aspirin AdvReac Mild GI upset Verified 07/05/18 13:02 Home Medications: Ambulatory Orders Gabapentin [Neurontin -] 800 mg PO Q8H 04/04/18 Albuterol 0.083% Nebulizer Sun [Ventolin 0.083% Nebulizer Soln -] 1 amp NEB Q4H PRN #7 amp 04/11/18 Carvedilol [Coreg -] 12.5 mg PO BID #60 tablet 04/11/18 Losartan Potassium [Cozaar -] 50 mg PO BID #30 tablet 04/11/18 Naloxone HCl [Narcan] 4 mg NS ONCE PRN #1 spray 05/24/18 Acetaminophen 2 tab PO DAILY PRN #60 tablet 06/01/18 Ergocalciferol (Vitamin D2) [Vitamin D2] 50,000 unit PO Q7D #4 capsule 06/01/18 Cholecalciferol (Vitamin D3) [Vitamin D3] 2,000 unit PO DAILY 06/03/18 Fosamax 70 mg PO WEEKLY 06/03/18 Sodium Chloride [Saline Nose [place]] 1 - 2 sprays NS PRN #1 spray 06/03/18 Abacavir/Dolutegravir/Lamivudi [Triumeq 600-50-300 mg Tablet] 1 each PO DAILY # 30 tablet 06/08/18 Albuterol Sulfate Inhaler - [Ventolin HFA Inhaler -] 1 - 2 inh PO Q6H PRN #1 inhaler 06/08/18 Aspirin Coated [Ecotrin -] 81 mg PO DAILY #30 tablet.ec 06/08/18 Calcium Carbonate/Vitamin D3 [Calcium 500-Vit D3 200 Caplet] 1 tab PO DAILY #30 tablet 06/08/18 Clopidogrel Bisulfate [Plavix] 75 mg PO DAILY #30 tablet 06/08/18 Diphenhydramine [Benadryl Capsule -] 50 mg PO HS #30 capsule 06/08/18 Escitalopram Oxalate [Lexapro -] 10 mg PO DAILY #30 tablet 06/08/18 Ferrous Sulfate [Feosol] 325 mg PO BID #60 tablet 06/08/18 Fluticasone/Salmeterol [Advair Hfa 230-21 Mcg Inhaler] 2 puff IH BID #1 hfa.aer.ad 06/08/18 Multivitamin [One-Daily Multi-Vitamin] 1 each PO DAILY #30 tablet 06/08/18 Nicotine [Nicotrol Ns] 1 dose IH DAILY PRN #1 spray 06/08/18 Pantoprazole Sodium [Protonix -] 20 mg PO DAILY #30 tablet.ec 06/08/18 Ranolazine [Ranexa -] 500 mg PO BID #60 tab 06/08/18 Simvastatin 10 mg PO DAILY #30 tablet 06/08/18 hydrALAZINE HCL [Apresoline -] 50 mg PO TID #90 tablet 06/08/18 Morphine *Sr* [MS Contin -] 30 mg PO Q8H #90 tablet.er MDD 3 06/14/18 Furosemide [Lasix -] 40 mg PO DAILY #30 tablet 07/08/18 Spironolactone [Aldactone -] 25 mg PO DAILY #30 tablet 07/08/18 Asthma: Yes Cancer: Yes (history of cervical cancer - cured with RT) Cardiac Disorders: Yes (pvd, cabh 2009) CVA: No COPD: Yes (2lnc home) Dementia: No Diabetes: No GI Disorders: No Disorders: No HTN: Yes Hypercholesterolemia: Yes Liver Disease: No Seizures: No Thyroid Disease: No - Surgical History Appendectomy: No Cardiac Surgery: Yes (CABG x 3 2009) Cholecystectomy: No Orthopedic Surgery: No - Suicide/Smoking/Psychosocial Hx Smoking History: Never smoked Have you smoked in the past 12 months: No Number of Cigarettes Smoked Daily: 5 Information on smoking cessation initiated: No 'Breaking Loose' booklet given: 06/01/12 Hx Alcohol Use: No Drug/Substance Use Hx: No Substance Use Type: Cocaine Hx Substance Use Treatment: Yes (detox, rehab, methadone program years ago) Review of Systems - Review of Systems Able to Perform ROS?: Yes Comments:: In addition to that documented in the HPI above, the additional ROS was obtained : Constitutional: Denies fevers or chills Eyes: Denies vision changes ENMT: Denies sore throat CV: Denies chest pain Resp: Per HPI GI: Denies vomiting or diarrhea : Denies painful urination MSK: Denies recent trauma Skin: Denies new rashes Neuro: Denies new numbness or tingling or weakness Endocrine: Denies polyuria Heme: Denies bleeding or bruising *Physical Exam - Vital Signs Last Vital Signs Temp Pulse Resp BP Pulse Ox 98.8 F 75 16 135/76 100 07/05/18 12:40 07/05/18 12:40 07/05/18 12:40 07/05/18 12:40 07/05/18 12:40 - Physical Exam Comments: Constitutional: Nontoxic adult female in no acute distress or obvious discomfort. Somnolent but easily arousable to voice. Found semi-fowlers on hospital hallway bed. Speech was non-labored, non-pressured. Head: Normocephalic. No obvious external signs of trauma. Eyes: Sclerae white. Ears: Hearing grossly intact. Nose: No nasal discharge. Neck: Supple, trachea is midline. Cardiovascular / Chest: Regular rate and regular rhythm. No murmur, rubs, clicks, or gallops. Peripheral pulses: radial pulses full. Respiratory: Breathing unlabored. Equal chest rise and fall. Bibasilar crackles. No wheezing or stridor. Speaking in multi-word responses without pausing. No oxygen therapy in use. Gastrointestinal: abdomen is soft, non-tender, non-distended. No fluid wave or caputs medusa. Neuro: Alert to voice. Oriented x4. Moving all four extremities spontaneously. Ext/Skin: 2+ pretibial edema to knees bilaterally. No skin breakdown, erythema, or areas of point tenderness. Globally, skin is warm, dry, and intact. : No R or L CVA tenderness. Psych: Affect: appropriate. Mood: normal. Moderate Sedation - Procedure Monitoring Vital Signs: Procedure Monitoring Vital Signs Temperature 98.8 F 07/05/18 12:40 Pulse Rate 75 07/05/18 12:40 Respiratory Rate 16 07/05/18 12:40 Blood Pressure 135/76 07/05/18 12:40 O2 Sat by Pulse Oximetry (%) 100 07/05/18 12:40 Procedures - Additional Procedures Progress: Ultrasound Guided IV Line Placement PROCEDURE NOTE: IV Placement under Ultrasound Guidance PROCEDURE SENIOR CONSTRUCTION MANAGER: Andrez Tolentino M.D. Resident Indication: IV access required. Multiple attempts at peripheral IV placement were made by the nursing staff without success Procedure: The area was prepped in the usual fashion. The R basilic vein was cannulated with a 20 gauge angiocath with use of dynamic ultrasound to identify the vein. The patient tolerated the procedure well. Complications: none ED Treatment Course - LABORATORY CBC & Chemistry Diagram: 07/08/18 06:00 07/08/18 06:00 - RADIOLOGY Radiology Studies Ordered: Category Date Time Status CHEST PA & LAT [RAD] Stat Radiology 07/05/18 13:26 Ordered DUPLEX VASCUL US-2LEGS [US] Stat Ultrasound 07/05/18 13:33 Ordered Medical Decision Making - Medical Decision Making *Reviewed vital signs, nursing notes, and prior visit documentation (if available). 67 y/o female presenting for exertional SOB and significant weight gain. Increased home oxygen usage. H/o of CHF. Afebrile. Vitals unremarkable for hypotension or tachycardia. Normoxic on room air. No apparent respiratory distress. Physical exam as described above. Suspect acute CHF exacerbation. Low suspicion for PE as pt is not tachypneic, tachycardic, or febrile. Low suspicion for DVT as edema is bilateral and no obvious areas of tenderness. EKG revealed sinus rhythm without ectopy. Unchanged from previous study dated 25 Apr 2018. CXR (per ED wet read) revealed enlarged cardiac silhouette, bilateral pleural effusions R > L. No consolidations. Official radiology report pending. U/S unremarkable for signs of DVT in either lower extremity. BMP elevated without previous values to compare. Continue to suspect CHF exacerbation. Will withhold emergent diuresis as pt denies active SOB, is not tachypneic, and SPO2 is 100% on room air. CBC unremarkable for anemia or leukocytosis. CMP unremarkable for electrolyte derangement. LFTs not elevated. BUN and Cr at baseline. eGFR >60. Mild hypoalbuminemia. 16:54 Microblog sent to [facility] for admission. Awaiting call back. 17:15 Telephone consultation with resident Dr. Torres. Verbally appraised of the pts HPI, ED course, and current plan of management. Will admit pt to telemetry on inpatient status for Dr. Ahuja. 17:25 RN reported the pts repeat SPO2 was 79% on room air. Pt placed on 10LPM via NRB which improvement of saturation to 100%. Pt re- evaluated and again found to be solumlent. Ordered 40mg Lasix, ABG, and continuous SPO2 monitoring. SPO2 trended down to 85% on 100% NRB. Pt continues to appear somnolent. Will start BiPap therapy. Ordered DuoNeb and solumedrol given COPD history. Medicine team cancelled solumedrol. POCUS performed. Noted bilateral pleural effusion with possible consolidation versus atelectasis in right anterior lung mazariegos. Also noted abdominal ascites. Considered ceftriaxone and azithromycin for pneumonia. Considered lactulose given somnolence and ascites. Medicine team cancelled antibiotics and lactulose. ABG revealed hypercarbia and hypoxia. 18:54 Telephone consultation with resident Dr. Patel. Verbally appraised of the pts HPI, ED course, and current plan of management. Will evaluate pt in the department. Resident Dr. Patel requested repeat ABG in one hour. Repeat ABG revealed improvement in hypercarbia and resolved hypoxia while on BiPAP. Will admit pt to ICU. Discussed with Dr. Patel. *DC/Admit/Observation/Transfer Diagnosis at time of Disposition: Acute exacerbation of congestive heart failure, Shortness of breath on exertion , Weight gain, abnormal - Discharge Dispostion Disposition: HOME Condition at time of disposition: Improved Decision to Admit order: Yes - Prescriptions - Referrals - Patient Instructions - Post Discharge Activity
[2018-07-05 14:28] LABS: BASO % 0.7 % (0-2.0); EOS % 1.7 % (0-4.5); HEMATOCRIT 31.8 % (32.4-45.2); HEMOGLOBIN 10.9 GM/dL (10.7-15.3); LYMPH % 14.9 % (8-40); MCH 33.9 pg (25.7-33.7); MCHC 34.2 g/dl (32.0-36.0); MEAN CELL VOLUME 99.3 fl (80-96); MEAN PLT VOLUME 9.1 fl (7.5-11.1); NEUT % 72.7 % (42.8-82.8); PLATELET COUNT 290 K/MM3 (134-434); RDW 14.6 % (11.6-15.6); WHITE BLOOD COUNT 7.6 K/mm3 (4.0-10.0)
--- NOTE | 2018-07-05 14:53 | PDOC ---
Attending Attestation - HPI HPI: 07/05/18 14:54 The patient is a 67-year-old female, with past medical history of HTN, CAD s/p CABG, PVD with B/L LE stents, HIV (last CD4 440 with undetectable viral load, on Triumeq), Hep C, who presents to the ED, who was sent from the [facility] by Dr. Blake for 1 week of progressive shortness of breath. The patient is on O2 at home and only uses it when needed. She reports an increase of O2 use over the past week. She also reports recent 20lb weight gain over the past month. The patient denies any fevers, chills, nausea, vomiting, diarrhea, or abdominal pain. Denies any chest pain. Denies any orthopnea. Allergies: Aspirin Social History: None reported. Surgical History: CABG x2 2010 PCP: Dr. Blake - Physicial Exam PE: 07/05/18 14:55 GENERAL: Awake, alert, and fully oriented, in no acute distress HEAD: No signs of trauma EYES: PERRLA, EOMI, sclera anicteric, conjunctiva clear ENT: Auricles normal inspection, nares patent, oropharynx clear without exudates. Moist mucosa. NECK: Normal ROM, supple, no lymphadenopathy, JVD, or masses LUNGS: (+)Crackles bilateral bases. No accessory muscle use. No wheezes. HEART: Regular rate and rhythm, normal S1 and S2, no murmurs, rubs or gallops ABDOMEN: (+)Abdominal distension. Soft, nontender, normoactive bowel sounds. No guarding, no rebound. No masses EXTREMITIES: (+)Bilateral lower extremity pitting edema. Normal range of motion. No clubbing or cyanosis. No cords, erythema, or tenderness NEUROLOGICAL: Alert and oriented x 3. Moves all extremities. Face is symmetric. SKIN: Warm, Dry, normal turgor, no rashes or lesions noted <Janet Brady - Last Filed: 07/05/18 17:37> - Resident Resident Name: Andrez Tolentino - ED Attending Attestation I have performed the following: I have examined & evaluated the patient, The case was reviewed & discussed with the resident, I agree w/resident's findings & plan, Exceptions are as noted - Medical Decision Making 07/05/18 17:36 differential edema. from hypoalbuminemmia liver failure, cirrhosis. chf dvt, anemia renal failure. plan labs cbc ekg cxr bilat lower dopplers. pt carlos likely require admission for diuresis. 07/05/18 18:55 pt with worsenign hypoxia, h/o copd, liver failure and chf. focused ED TTE performed. pt with large dilated RV, septal D, h/o known dilation and dysfunction no pericardial effusion mild decreased lv function. lung ultrasound performed, indication hypoxia bilat pleural effusions, small. right side with air bronchograms at base. incidental abd ascites noted. b lines bilaterally ant lung mazariegos. impression: pulm edema. pl effusions, air bronchograms right base, and rv strain pattern, possibly chronic per old echo, ascites. pt started on bipap, given nitro. blood gas sent. had been given lasix, will add duonebs. likley combination of pulm edema. and pulm htn/ copd. will add ammonia level. ICU consult. 07/05/18 18:59 <Sharyn Herron - Last Filed: 07/05/18 18:59> Heart Score/ECG Review #1 General ECG Interpretation: Sinus Rhythm, Normal Rate (79), Normal Intervals, No acute ischemic changes <Sharyn Herron - Last Filed: 07/05/18 18:59> Attestations - Attestations 07/05/18 14:56 Documentation prepared by Janet Brady, acting as biomedical service engineer for Sharyn Herron MD. <Janet Brady - Last Filed: 07/05/18 17:37>
[2018-07-05 15:04] LABS: ALBUMIN 3.2 g/dl (3.4-5.0); ALK PHOS 57 U/L (45-117); ANION GAP 7 MMOL/L (8-16); BILIRUBIN,TOTAL 0.4 mg/dL (0.2-1); BLOOD UREA NITROGEN 10 mg/dL (7-18); CALCIUM 8.6 mg/dL (8.5-10.1); CHLORIDE 99 mmol/L (98-107); CO2 34 mmol/L (21-32); CREATININE 0.7 mg/dL (0.55-1.3); GLUCOSE,RANDOM 71 mg/dL (74-106); N-TERMINAL BNP 6676.1 pg/ml (5-125); POTASSIUM 3.8 mmol/L (3.5-5.1); SGOT/AST 18 U/L (15-37); SGPT/ALT 14 U/L (13-61); SODIUM 139 mmol/L (136-145); TOT PROT 6.3 g/dl (6.4-8.2)
[2018-07-05] MEDS ORDERED: FUROSEMIDE 40 MG/4 ML INJECTABLE VIAL IVPUSH ONE ×2 (17:24→18:30)
[2018-07-05] MEDS ORDERED: FUROSEMIDE 40 MG/4 ML INJECTABLE VIAL ONE ×2 (17:44→19:49)
[2018-07-05 18:20] LABS: ARTERIAL BLOOD GAS BASE EXCESS 7.1 meq/l (-2-2); CARBOXYHEMOGLOBIN 1.2 gm% (0.5-2.0)
--- NOTE | 2018-07-05 18:38 | HP ---
CHIEF COMPLAINT: SOB PCP: HISTORY OF PRESENT ILLNESS: Patient is a 67 y/o female with a history of HTN, CAD s/p CABG in 2009, PVD with b/l LE stents, HIV, HEP C, and COPD who presents with shortness of breath. Patient comes in as per Dr. Blake for a 20 pound increase in weight. Patient states she typically weighs 114. She is always short of breath and is short of breath just walking to her bathroom. She typically sleeps in a chair. She notes the swelling in her legs have been worse and they feel tight, she does not wear compression stockings at home. She typically drinks a lot of water , but no more then usual. Denies any changes in her diet. Quit smoking in May. Reports she is compliant with her medication. Denies taking a water pill or co reg. Recently moved to [place] to live with her daughter and needs to establish care up here. received flu vaccine and pneumonia shot this year. Typically walks with a cane. Denies headache, nausea, vomiting, chest pain, dizziness, diarrhea, constipation, or change in vision. She has a dry cough but this is not new, denies any sputum. Patient given 40 of lasix in ER, found to be hypoxic at 76, ER put her on Nonrebreather and O2 100%. ER course was notable for: (1) (2) (3) Recent Travel: denies PAST MEDICAL HISTORY: HTN, CAD s/p CABG in 2009, PVD with b/l LE stents, HIV, HEP C, and COPD PAST SURGICAL HISTORY: CABG x2 in 2009, b/l LE stents Social History: Smoking: quit in May Alcohol: denies Drugs: Family History: Allergies aspirin Adverse Reaction (Mild, Verified 07/05/18 13:02) GI upset HOME MEDICATIONS: Home Medications Medication Instructions Recorded Gabapentin [Neurontin -] 800 mg PO Q8H 04/04/18 Albuterol 0.083% Nebulizer Sun 1 amp NEB Q4H PRN #7 amp 04/11/18 [Ventolin 0.083% Nebulizer Soln -] Carvedilol [Coreg -] 12.5 mg PO BID #60 tablet 04/11/18 Losartan Potassium [Cozaar -] 50 mg PO BID #30 tablet 04/11/18 Naloxone HCl [Narcan] 4 mg NS ONCE PRN #1 spray 05/24/18 Acetaminophen 2 tab PO DAILY PRN #60 tablet 06/01/18 Ergocalciferol (Vitamin D2) 50,000 unit PO Q7D #4 capsule 06/01/18 [Vitamin D2] Cholecalciferol (Vitamin D3) 2,000 unit PO DAILY 06/03/18 [Vitamin D3] Fosamax 70 mg PO WEEKLY 06/03/18 Sodium Chloride [Saline Nose [place]] 1 - 2 sprays NS PRN #1 spray 06/03/18 Abacavir/Dolutegravir/Lamivudi 1 each PO DAILY #30 tablet 06/08/18 [Triumeq 600-50-300 mg Tablet] Albuterol Sulfate Inhaler - 1 - 2 inh PO Q6H PRN #1 inhaler 06/08/18 [Ventolin HFA Inhaler -] Aspirin Coated [Ecotrin -] 81 mg PO DAILY #30 tablet.ec 06/08/18 Calcium Carbonate/Vitamin D3 1 tab PO DAILY #30 tablet 06/08/18 [Calcium 500-Vit D3 200 Caplet] Clopidogrel Bisulfate [Plavix] 75 mg PO DAILY #30 tablet 06/08/18 Diphenhydramine [Benadryl -] 50 mg PO HS #30 capsule 06/08/18 Escitalopram Oxalate [Lexapro -] 10 mg PO DAILY #30 tablet 06/08/18 Ferrous Sulfate [Feosol] 325 mg PO BID #60 tablet 06/08/18 Fluticasone/Salmeterol [Advair Hfa 2 puff IH BID #1 hfa.aer.ad 06/08/18 230-21 Mcg Inhaler] Multivitamin [One-Daily 1 each PO DAILY #30 tablet 06/08/18 Multi-Vitamin] Nicotine [Nicotrol Ns] 1 dose IH DAILY PRN #1 spray 06/08/18 Pantoprazole Sodium [Protonix -] 20 mg PO DAILY #30 tablet.ec 06/08/18 Ranolazine [Ranexa -] 500 mg PO BID #60 tab 06/08/18 Simvastatin 10 mg PO DAILY #30 tablet 06/08/18 hydrALAZINE HCL [Apresoline -] 50 mg PO TID #90 tablet 06/08/18 Morphine *Sr* [Ms Contin -] 30 mg PO Q8H #90 tablet.er MDD 3 06/14/18 REVIEW OF SYSTEMS CONSTITUTIONAL: Absent: fever, chills, diaphoresis, generalized weakness, malaise, loss of appetite, weight change HEENT: Absent: rhinorrhea, nasal congestion, throat pain, throat swelling, difficulty swallowing, mouth swelling, ear pain, eye pain, visual changes CARDIOVASCULAR: Absent: chest pain, syncope, palpitations, irregular heart rate, lightheadedness , peripheral edema RESPIRATORY: shortness of breath, dyspnea with exertion, orthopnea, Absent: cough, wheezing, stridor, hemoptysis GASTROINTESTINAL: Absent: abdominal pain, abdominal distension, nausea, vomiting, diarrhea, constipation, melena, hematochezia GENITOURINARY: Absent: dysuria, frequency, urgency, hesitancy, hematuria, flank pain, genital pain MUSCULOSKELETAL: Absent: myalgia, arthralgia, joint swelling, back pain, neck pain SKIN: Absent: rash, itching, pallor HEMATOLOGIC/IMMUNOLOGIC: Absent: easy bleeding, easy bruising, lymphadenopathy, frequent infections ENDOCRINE: Absent: unexplained weight gain, unexplained weight loss, heat intolerance, cold intolerance NEUROLOGIC: Absent: headache, focal weakness or paresthesias, dizziness, unsteady gait, seizure, mental status changes, bladder or bowel incontinence PSYCHIATRIC: Absent: anxiety, depression, suicidal or homicidal ideation, hallucinations. PHYSICAL EXAMINATION Vital Signs Temperature 98.8 F 07/05/18 12:40 Pulse Rate 75 07/05/18 12:40 Respiratory Rate 16 07/05/18 12:40 Blood Pressure 135/76 07/05/18 12:40 O2 Sat by Pulse Oximetry (%) 100 07/05/18 12:40 GENERAL: Awake, alert, and fully oriented, in no acute distress. HEAD: Normal with no signs of trauma. EYES: Pupils equal, round and reactive to light, extraocular movements intact, NECK: Normal range of motion, supple without lymphadenopathy, JVD, or masses. LUNGS: Breath sounds equal, clear to auscultation bilaterally. Mild rales at R base HEART: Regular rate and rhythm, normal S1 and S2 without murmur, rub or gallop. ABDOMEN: Soft, nontender, not distended, normoactive bowel sounds, no guarding, no rebound, no masses. MUSCULOSKELETAL: Normal range of motion at all joints. No bony deformities or tenderness. No CVA tenderness. LOWER EXTREMITIES: 2+ pitting edema up calfs, 1+ at thighs PSYCHIATRIC: Cooperative. Good eye contact. Appropriate mood and affect. SKIN: Warm, dry, normal turgor, no rashes or lesions noted, normal capillary refill. CBCD WBC 7.6 K/mm3 (4.0-10.0) 07/05/18 14:12 RBC 3.20 M/mm3 (3.60-5.2) L 07/05/18 14:12 Hgb 10.9 GM/dL (10.7-15.3) 07/05/18 14:12 Hct 31.8 % (32.4-45.2) L 07/05/18 14:12 MCV 99.3 fl (80-96) H 07/05/18 14:12 MCHC 34.2 g/dl (32.0-36.0) 07/05/18 14:12 RDW 14.6 % (11.6-15.6) 07/05/18 14:12 Plt Count 290 K/MM3 (134-434) 07/05/18 14:12 MPV 9.1 fl (7.5-11.1) D 07/05/18 14:12 CMP Sodium 139 mmol/L (136-145) 07/05/18 13:25 Potassium 3.8 mmol/L (3.5-5.1) 07/05/18 13:25 Chloride 99 mmol/L (98-107) 07/05/18 13:25 Carbon Dioxide 34 mmol/L (21-32) H 07/05/18 13:25 Anion Gap 7 MMOL/L (8-16) L 07/05/18 13:25 BUN 10 mg/dL (7-18) 07/05/18 13:25 Creatinine 0.7 mg/dL (0.55-1.3) 07/05/18 13:25 Creat Clearance w eGFR > 60 (>60) 07/05/18 13:25 Random Glucose 71 mg/dL (74-106) L 07/05/18 13:25 Calcium 8.6 mg/dL (8.5-10.1) 07/05/18 13:25 Total Bilirubin 0.4 mg/dL (0.2-1) 07/05/18 13:25 AST 18 U/L (15-37) 07/05/18 13:25 ALT 14 U/L (13-61) 07/05/18 13:25 Alkaline Phosphatase 57 U/L (45-117) 07/05/18 13:25 Total Protein 6.3 g/dl (6.4-8.2) L 07/05/18 13:25 Albumin 3.2 g/dl (3.4-5.0) L 07/05/18 13:25 CARDIAC ENZYMES Creatine Kinase 99 U/L (26-192) 07/05/18 13:25 Troponin I 0.02 ng/ml (0.00-0.05) 07/05/18 13:25 ASSESSMENT/PLAN: Patient is a 67 y/o female with a history of HTN, CAD s/p CABG in 2009, PVD with b/l LE stents, HIV, HEP C, and COPD who presents with shortness of breath. #SOB 2/2 to CHF exacerbation - Lasix 80 IV, 40 IV tomorrow, han overnight - f/u echo - Consulted Dr. Fitzgerald - Last Echo 04/04: severe TR with RV: 45, EF 50-55%, moderate pulmonary HTN - daily in's and outs - ekg with some R heart strain, no ST elevations - BNP: 6676, no baseline - trop negative, CK negative - monitor symptoms - titrate off venti mask - f/u ABG #COPD - nebs as needed - f/u home medications #HTN - continue hydralazine - monitor with lasix #HIV - continue Triumec - recent CD4 count 440 - followed by Dr. Blake #HX stents - continue plavix - allergy to aspirin?, f/u # Depression - continue Lexapro DVT ppx - Lovenox 40 sq daily Dispo: monitor on tele * pharmacy closed f/u in morning for recconciliation Visit type - Emergency Visit Emergency Visit: Yes ED Registration Date: 07/05/18 Care time: The patient presented to the Emergency Department on the above date and was hospitalized for further evaluation of their emergent condition. - New Patient This patient is new to me today: Yes Date on this admission: 07/05/18 - Critical Care Critical Care patient: No
[2018-07-05] MEDS ORDERED: CEFTRIAXONE 2,000 MG in DEXTROSE 5%-WATER - 50 ML IVPB ONE (18:41)
[2018-07-05] MEDS ORDERED: LACTULOSE 20 GM/30 ML UDC (FOR ORAL USE ONLY) PO ONE (18:41)
[2018-07-05] MEDS ORDERED: NITROGLYCERIN SUBLINGUAL 1/150 0.4 MG TAB SL PRN (18:41)
[2018-07-05] MEDS ORDERED: ALBUTEROL SO4 2.5/IPRATROPIUM 0.5 INH SOL 3 ML VIAL.NEB. NEB ONE ×3 (18:43→19:49)
[2018-07-05] MEDS ORDERED: NITROGLYCERIN 2% OINTMENT - 1GM PACKET TD ONE (18:43)
[2018-07-05] MEDS ORDERED: AZITHROMYCIN IVPB 500 MG in DEXTROSE 5%-WATER - 250 ML IVPB ONE (18:43)
[2018-07-05] MEDS ORDERED: ACETAMINOPHEN 325 MG TABLET (FP) PO PRN (18:44)
[2018-07-05] MEDS ORDERED: ALBUTEROL SO4 2.5/IPRATROPIUM 0.5 INH SOL 3 ML VIAL.NEB. NEB PRN (18:44)
[2018-07-05 18:50] LABS: ARTERIAL BLOOD GAS PCO2 73.6 mmHg (35-45)
[2018-07-05 18:51] LABS: ARTERIAL BLD GAS O2 SATURATION 71.7 % (90-98.9); ARTERIAL BLOOD GAS PO2 44.1 mmHg (80-100)
--- NOTE | 2018-07-05 18:57 | PN ---
Progress Note (short form) - Note Progress Note: Admitting resident note addendum: Resulting ABG 7.3, 73.6 CO2, 44 O2 on RA Pt is currently more lethargic yet arousable with verbal and palpable stimuli Notable L-sided JVD; no accessory muscle use at this poitn Now on BiLevel 10/5/RR8 FiO2 50% Worsening R-sided heart failure: --Give Lasix 80mg IVP TOTAL today --Hold of ABX despite POCUS due to SIRS 0/4 and minimize fluid intake --If pt spikes fever later tonight reasonable to panculture and initiate ABX --Continue BiLevel 10/5/increase to RR12/ FiO2 50% with saturation of 99% currently --Rpt ABG in 1 hr while on BiLevel ICU team consulted for possible transfer; discussed with team Discussed with night hospitalist team and ER physicians Bora Saunders, - IM PGY-2
[2018-07-05] MEDS ORDERED: methylPREDNISolone NA SUCC 125 MG/2 ML VIAL IVPUSH ONE (19:04)
--- NOTE | 2018-07-05 20:00 | PN ---
Teaching Attending Note Name of Resident: Deena Burdick ATTENDING PHYSICIAN STATEMENT I saw and evaluated the patient. I reviewed the resident's note and discussed the case with the resident. I agree with the resident's findings and plan as documented. SUBJECTIVE: Still short of breath, with some improvement on BiPAP. No fever/ chills/cough/sputum OBJECTIVE: Afebrile, Hemodynamically Stable Last Vital Signs Temp Pulse Resp BP Pulse Ox 98.8 F 75 16 135/76 100 07/05/18 12:40 07/05/18 12:40 07/05/18 12:40 07/05/18 12:40 07/05/18 18:35 HEENT - Atraumatic, Normocephalic. Heart - S1, S2, soft SM Lungs - decreased air entry bibasally with crackles R base. Abdomen - soft, non-tender. Extremities - bilateral edema to above knee. No calf tenderness Neuro - Lethargic but AAO x . Tone/Power normal all 4 extremities. Laboratory Results - last 24 hr 07/05/18 07/05/18 07/05/18 13:25 14:12 18:00 WBC 7.6 RBC 3.20 L Hgb 10.9 Hct 31.8 L MCV 99.3 H MCH 33.9 H MCHC 34.2 RDW 14.6 Plt Count 290 MPV 9.1 D Absolute Neuts (auto) 5.5 Neutrophils % 72.7 Lymphocytes % 14.9 D Monocytes % 10.0 Eosinophils % 1.7 D Basophils % 0.7 Nucleated RBC % 0 Anticoagulation Therapy No Result Required. Puncture Site No Result Required. ABG pH 7.30 L ABG pCO2 at Pt Temp 73.6 H* ABG pO2 at Pt Temp 44.1 L* D ABG HCO3 35.0 H ABG O2 Sat (Measured) 71.7 L* ABG O2 Content 10.3 L ABG Base Excess 7.1 H Trevor Test No Result Required. Carboxyhemoglobin 1.2 Methemoglobin 0.5 O2 Delivery Device No Result Required. Oxygen Flow Rate No Result Required. Vent Mode No Result Required. Vent Rate No Result Required. Mechanical Rate No Result Required. Pressure Support Vent No Result Required. Sodium 139 Potassium 3.8 Chloride 99 Carbon Dioxide 34 H Anion Gap 7 L BUN 10 Creatinine 0.7 Creat Clearance w eGFR > 60 Random Glucose 71 L Calcium 8.6 Total Bilirubin 0.4 AST 18 ALT 14 Alkaline Phosphatase 57 Creatine Kinase 99 Troponin I 0.02 B-Natriuretic Peptide 6676.1 H Total Protein 6.3 L Albumin 3.2 L Current Medications Generic Name Dose Route Start Last Admin Trade Name Freq PRN Reason Stop Dose Admin Abacavir/Dolutegravir/Lamivudine 1 each 07/06/18 10:00 Triumeq (Non-Formulary) PO DAILY [facility] Acetaminophen 650 mg 07/05/18 18:44 Tylenol - PO Q6H PRN PAIN LEVEL 6-10 Clopidogrel Bisulfate 75 mg 07/06/18 10:00 Plavix - PO DAILY [facility] Enoxaparin Sodium 40 mg 07/06/18 10:00 Lovenox - SQ DAILY [facility] Escitalopram Oxalate 10 mg 07/06/18 10:00 Lexapro - PO DAILY [facility] Furosemide 40 mg 07/06/18 10:00 Lasix Injection - IVPUSH DAILY [facility] Hydralazine HCl 50 mg 07/05/18 22:00 Apresoline - PO TID [facility] Nitroglycerin 0.4 mg 07/05/18 18:41 Nitrostat - SL Q5M PRN FOR CHEST PAIN Home Medications Medication Instructions Recorded Gabapentin [Neurontin -] 800 mg PO Q8H 04/04/18 Albuterol 0.083% Nebulizer Sun 1 amp NEB Q4H PRN #7 amp 04/11/18 [Ventolin 0.083% Nebulizer Soln -] Carvedilol [Coreg -] 12.5 mg PO BID #60 tablet 04/11/18 Losartan Potassium [Cozaar -] 50 mg PO BID #30 tablet 04/11/18 Naloxone HCl [Narcan] 4 mg NS ONCE PRN #1 spray 05/24/18 Acetaminophen 2 tab PO DAILY PRN #60 tablet 06/01/18 Ergocalciferol (Vitamin D2) 50,000 unit PO Q7D #4 capsule 06/01/18 [Vitamin D2] Cholecalciferol (Vitamin D3) 2,000 unit PO DAILY 06/03/18 [Vitamin D3] Fosamax 70 mg PO WEEKLY 06/03/18 Sodium Chloride [Saline Nose [place]] 1 - 2 sprays NS PRN #1 spray 06/03/18 Abacavir/Dolutegravir/Lamivudi 1 each PO DAILY #30 tablet 06/08/18 [Triumeq 600-50-300 mg Tablet] Albuterol Sulfate Inhaler - 1 - 2 inh PO Q6H PRN #1 inhaler 06/08/18 [Ventolin HFA Inhaler -] Aspirin Coated [Ecotrin -] 81 mg PO DAILY #30 tablet.ec 06/08/18 Calcium Carbonate/Vitamin D3 1 tab PO DAILY #30 tablet 06/08/18 [Calcium 500-Vit D3 200 Caplet] Clopidogrel Bisulfate [Plavix] 75 mg PO DAILY #30 tablet 06/08/18 Diphenhydramine [Benadryl -] 50 mg PO HS #30 capsule 06/08/18 Escitalopram Oxalate [Lexapro -] 10 mg PO DAILY #30 tablet 06/08/18 Ferrous Sulfate [Feosol] 325 mg PO BID #60 tablet 06/08/18 Fluticasone/Salmeterol [Advair Hfa 2 puff IH BID #1 hfa.aer.ad 06/08/18 230-21 Mcg Inhaler] Multivitamin [One-Daily 1 each PO DAILY #30 tablet 06/08/18 Multi-Vitamin] Nicotine [Nicotrol Ns] 1 dose IH DAILY PRN #1 spray 06/08/18 Pantoprazole Sodium [Protonix -] 20 mg PO DAILY #30 tablet.ec 06/08/18 Ranolazine [Ranexa -] 500 mg PO BID #60 tab 06/08/18 Simvastatin 10 mg PO DAILY #30 tablet 06/08/18 hydrALAZINE HCL [Apresoline -] 50 mg PO TID #90 tablet 06/08/18 Morphine *Sr* [Ms Contin -] 30 mg PO Q8H #90 tablet.er MDD 3 06/14/18 ASSESSMENT AND PLAN: 67 year old female with history of CAD s/p CABG 2009, HIV, Hepatitis C, COPD, PAD s/p bilateral LE stents, HTN, Chronic Diastolic CHF, referred to ED by Dr. Blake's office with increasing SOB and weight gain of 20punds in 1-2 months. 1. Acute Hypoxic and Hypercapneic Respiratory Failure secondary to Acute on Chronic Diastolic CHF decompensation pH 7.3/pCO2 73.6, pO2 44.1 BNP 6676 CXR - R sided effusion, Cardiomegaly Last Echo 04/04/18 - severe TR, EF 50-55%, moderate Pul HTN, posterolateral wall hypokinesis. Lasix 80mg IV today and 40mg daily from tomorrow. Requires BiPAP for Hypercapnea/Hypoxia due to CHF Monitor Respiratory Status Repeat ABG. Repeat Echo requested. Cardiology consulted. Monitor I/Os Intensive Care consulted for evaluation and further recommendations. 2. COPD - No evidence of exacerbation. DuoNebs. 3. HTN - Continue Hydralazine, Coreg, Losartan. 4. HIV - Continue HAART, follows with Dr. Blake 5. PAD s/p blateral LE stents - Continue Aspirin, Plavix, Statin 6. Depression - continue Lexapro 7. CAD s/p CABG - Continue Aspirin, Plavix, BB, MICHAEL-I, Statin. 8. Hepatitis C s/p Treatment - LFTs normal. DVT Px - Lovenox SQ
--- NOTE | 2018-07-05 20:23 | CONSULT ---
Consult Consult Specialty:: ICU Reason for Consultation:: acute hypoxic hypercapnic respiratory failure. - History of Present Illness Chief Complaint: Shortness of breath. History of Present Illness: 67 y/o female with a history of HTN, CAD s/p CABG in 2009, PVD with b/l LE stents, HIV, HEP C, COPD(home O2 dependent), PAH who presents with shortness of breath. She was seen by Dr. Blake today in office and noticed patient was significantly SOB and has gained 20 lbs since last visit in May. Instructed to come to ER. She reports increased oxygen requirements at home and becoming short of breath with walking to restroom. She endorses and increased leg swelling. She denies change in diet and states she has been compliant with all her medication. She is not on Lasix at home . Denies CP, GARCIA, abdominal pain, nausea, vomiting , fever or chills. No sick contacts. - History Source History Provided By: Patient, Medical Record Limitations to Obtaining History: Clinical Condition - Past Medical History Cardio/Vascular: Yes: CAD, CHF, Pulmonary Hypertension, Other (PVD) Pulmonary: Yes: Asthma, COPD Hepatobiliary: Yes: Cholelithiasis, Hepatitis C Reproductive: Yes: Postmenopausal Infectious Disease: Yes: HIV - Past Surgical History Past Surgical History: Yes: CABG, Stent (b/l LE stents ) - Alcohol/Substance Use Hx Alcohol Use: Yes (social) History of Substance Use: reports: None - Smoking History Smoking history: Former smoker Have you smoked in the past 12 months: Yes Aproximately how many cigarettes per day: 5 If you are a former smoker, when did you quit?: May 2018 - Social History Usual Living Arrangement: With Child ADL: Support Services Place of : [facility] History of Recent Travel: No Home Medications - Allergies Allergies/Adverse Reactions: Allergies Allergy/AdvReac Type Severity Reaction Status Date / Time aspirin AdvReac Mild GI upset Verified 07/05/18 13:02 - Home Medications Home Medications: Ambulatory Orders Gabapentin [Neurontin -] 800 mg PO Q8H 04/04/18 Albuterol 0.083% Nebulizer Sun [Ventolin 0.083% Nebulizer Soln -] 1 amp NEB Q4H PRN #7 amp 04/11/18 Carvedilol [Coreg -] 12.5 mg PO BID #60 tablet 04/11/18 Losartan Potassium [Cozaar -] 50 mg PO BID #30 tablet 04/11/18 Naloxone HCl [Narcan] 4 mg NS ONCE PRN #1 spray 05/24/18 Acetaminophen 2 tab PO DAILY PRN #60 tablet 06/01/18 Ergocalciferol (Vitamin D2) [Vitamin D2] 50,000 unit PO Q7D #4 capsule 06/01/18 Cholecalciferol (Vitamin D3) [Vitamin D3] 2,000 unit PO DAILY 06/03/18 Fosamax 70 mg PO WEEKLY 06/03/18 Sodium Chloride [Saline Nose [place]] 1 - 2 sprays NS PRN #1 spray 06/03/18 Abacavir/Dolutegravir/Lamivudi [Triumeq 600-50-300 mg Tablet] 1 each PO DAILY # 30 tablet 06/08/18 Albuterol Sulfate Inhaler - [Ventolin HFA Inhaler -] 1 - 2 inh PO Q6H PRN #1 inhaler 06/08/18 Aspirin Coated [Ecotrin -] 81 mg PO DAILY #30 tablet.ec 06/08/18 Calcium Carbonate/Vitamin D3 [Calcium 500-Vit D3 200 Caplet] 1 tab PO DAILY #30 tablet 06/08/18 Clopidogrel Bisulfate [Plavix] 75 mg PO DAILY #30 tablet 06/08/18 Diphenhydramine [Benadryl -] 50 mg PO HS #30 capsule 06/08/18 Escitalopram Oxalate [Lexapro -] 10 mg PO DAILY #30 tablet 06/08/18 Ferrous Sulfate [Feosol] 325 mg PO BID #60 tablet 06/08/18 Fluticasone/Salmeterol [Advair Hfa 230-21 Mcg Inhaler] 2 puff IH BID #1 hfa.aer.ad 06/08/18 Multivitamin [One-Daily Multi-Vitamin] 1 each PO DAILY #30 tablet 06/08/18 Nicotine [Nicotrol Ns] 1 dose IH DAILY PRN #1 spray 06/08/18 Pantoprazole Sodium [Protonix -] 20 mg PO DAILY #30 tablet.ec 06/08/18 Ranolazine [Ranexa -] 500 mg PO BID #60 tab 06/08/18 Simvastatin 10 mg PO DAILY #30 tablet 06/08/18 hydrALAZINE HCL [Apresoline -] 50 mg PO TID #90 tablet 06/08/18 Morphine *Sr* [Ms Contin -] 30 mg PO Q8H #90 tablet.er MDD 3 06/14/18 Family Disease History - Family Disease History Family Disease History: Heart Disease: Mother (, hx etoh), Sister (two - living), CA: Sister, Other: Father (, hx etoh), Mother, Brother (two living - five - ? reason), Sister, Daughter (two adults) Review of Systems - Review of Systems Constitutional: reports: Lethargy, Other (unintentional weight gain.) Eyes: reports: No Symptoms HENT: reports: No Symptoms Neck: reports: No Symptoms Cardiovascular: reports: Edema, Shortness of Breath Respiratory: reports: SOB on Exertion Gastrointestinal: reports: No Symptoms Genitourinary: reports: No Symptoms Breasts: reports: No Symptoms Reported Musculoskeletal: reports: No Symptoms Neurological: reports: No Symptoms Physical Exam Vital Signs: Vital Signs Temperature 98.8 F 07/05/18 12:40 Pulse Rate 75 07/05/18 12:40 Respiratory Rate 16 07/05/18 12:40 Blood Pressure 135/76 07/05/18 12:40 O2 Sat by Pulse Oximetry (%) 100 07/05/18 18:35 Constitutional: Yes: Well Nourished, No Distress, Calm Eyes: Yes: Conjunctiva Clear, EOM Intact HENT: Yes: Atraumatic, Normocephalic Neck: Yes: Supple, Trachea Midline Cardiovascular: Yes: Regular Rate and Rhythm, JVD, Murmur (2/6 ALYSA). No: Gallop Respiratory: Yes: Cough, Diminished, On BiPap, Poor Air Entry, Rales (bibasilar) Gastrointestinal: Yes: Normal Bowel Sounds, Soft, Abdomen, Obese, Ascites, Distention ...Rectal Exam: Yes: Deferred Renal/: Yes: WNL Breast(s): No: Dimpling, Discharge from Nipple, Mass, Nipple Inversion, Skin Changes Musculoskeletal: Yes: WNL Edema: Yes Edema: LLE: 2+, RLE: 2+ Peripheral Pulses WNL: Yes Neurological: Yes: Alert ...Motor Strength: WNL Psychiatric: Yes: Alert Labs: CBC, BMP 07/05/18 14:12 07/05/18 13:25 Imaging - Results Chest X-ray: Report Reviewed (right sided effusion and infiltrate.), Image Reviewed Assessment/Plan A:67 y/o female with a history of HTN, CAD s/p CABG in 2010, PVD with b/l LE stents, HIV, HEP C, COPD(home O2 dependent), PAH who presents with shortness of breath admitted to telemetry for acute CHF exacerbation. PLAN: NEURO: * lethargic but arousable. * Ammonia pending r/o encephalopathy * monitor for signs of mental status changes. * Chronic pain on MS contin at home. PULM: * acute hypoxic hypercapneic respiratory failure secondary to CHF exacerbation. * Continue NIPPV with bilevel at 10/5 FiO2 50% * repeat ABG shows improvement * supplemental O2 PRN * maintain SpO2 >90% * BD TX PRN. * NO abx or steroids for now. CV: * Most likely acute on chronic CHF - BNP 6676 * lasix 80 given in ED; continue diuresis. * Echo pending; h/o PAH * continuos cardiac monitoring. * h/o PVD -continue asa and plavix. * continue BB * continue statin. * strict I/O's * cont. ARB and Hydralazine for HTN * Ranexa for angina GI: * h/o Hep C treated with Harvoni * NPO for now - advance to low salt diet * continue PPI. ID: * followed at [facility] with Dr. Blake. * HIV stable- cd4 440 viral and load undetectable; on Triumeq * treated hep c-viral load undetectable * monitor off abx for now; if she spikes fever can panculture and start empiric abx. Psych: * continue Lexapro * tobacco use- cont. Nicotine spray. FEN: * No IVF as she is overloaded. * monitor E-lytes and replete PRN * NPO while on BiPap- low sodium diet DISPO: continue monitor in ICU.
[2018-07-05 20:54] LABS: ARTERIAL BLD GAS O2 SATURATION 98.5 % (90-98.9); ARTERIAL BLOOD GAS BASE EXCESS 7.7 meq/l (-2-2); ARTERIAL BLOOD GAS pH 7.33 (7.35-7.45)
[2018-07-05 20:59] LABS: ARTERIAL BLOOD GAS PCO2 67.8 mmHg (35-45)
[2018-07-05] MEDS ORDERED: hydrALAZINE HCL 25 MG TABLET (FP) ONE (21:52)
[2018-07-05] MEDS: hydrALAZINE HCL 50 MG TABLET (FP) PO SCH (22:44)
[2018-07-05 23:07] VITALS: BMI 23.5
[2018-07-06] MEDS: hydrALAZINE HCL 50 MG TABLET (FP) PO SCH ×3 (06:36→22:11)
[2018-07-06 07:02] LABS: BASO % 0.5 % (0-2.0); EOS % 2.9 % (0-4.5); HEMATOCRIT 31.9 % (32.4-45.2); HEMOGLOBIN 10.8 GM/dL (10.7-15.3); LYMPH % 17.5 % (8-40); MCH 33.1 pg (25.7-33.7); MCHC 33.8 g/dl (32.0-36.0); MEAN CELL VOLUME 97.9 fl (80-96); MEAN PLT VOLUME 7.7 fl (7.5-11.1); MONO % 8.1 % (3.8-10.2); PLATELET COUNT 236 K/MM3 (134-434); RBC 3.26 M/mm3 (3.60-5.2); RDW 14.3 % (11.6-15.6); WHITE BLOOD COUNT 7.8 K/mm3 (4.0-10.0)
[2018-07-06 07:33] LABS: MAGNESIUM 1.2 mg/dL (1.8-2.4); PHOSPHOROUS 3.5 mg/dL (2.5-4.9)
[2018-07-06 07:59] LABS: ALBUMIN 2.9 g/dl (3.4-5.0); ALK PHOS 51 U/L (45-117); ANION GAP 7 MMOL/L (8-16); BILIRUBIN,TOTAL 0.7 mg/dL (0.2-1); BLOOD UREA NITROGEN 8 mg/dL (7-18); CALCIUM 8.4 mg/dL (8.5-10.1); CHLORIDE 97 mmol/L (98-107); CO2 37 mmol/L (21-32); CREATININE 0.6 mg/dL (0.55-1.3); GLUCOSE,RANDOM 59 mg/dL (74-106); POTASSIUM 3.3 mmol/L (3.5-5.1); SGOT/AST 19 U/L (15-37); SGPT/ALT 12 U/L (13-61); SODIUM 142 mmol/L (136-145); TOT PROT 5.7 g/dl (6.4-8.2)
[2018-07-06 08:00] LABS: ARTERIAL BLD GAS O2 SATURATION 92.4 % (90-98.9); ARTERIAL BLOOD GAS BASE EXCESS 11.8 meq/l (-2-2); ARTERIAL BLOOD GAS PO2 66.4 mmHg (80-100); ARTERIAL BLOOD GAS pH 7.41 (7.35-7.45)
[2018-07-06 08:03] LABS: ALLENS TEST POSITIVE
[2018-07-06 08:26] LABS: ARTERIAL BLOOD GAS PCO2 61.4 mmHg (35-45)
[2018-07-06] MEDS ORDERED: MAGNESIUM SULF 50% (8.12 MEQ/2 ML-1 GM VIAL) IVPB ONE (08:40)
[2018-07-06] MEDS ORDERED: POTASSIUM CHLORIDE TABS 20 MEQ TABLET.ER (FP) PO ONE ×2 (08:45→16:00)
[2018-07-06] MEDS ORDERED: MAGNESIUM OXIDE 400 MG TABLET (FP) PO ONE (08:45)
--- NOTE | 2018-07-06 08:50 | PN ---
Physical Exam: SUBJECTIVE: Patient seen and examined at bedside this morning. She endorses significant improvement of her breathing, and denies cough, shortness of breath. She denies subjective fevers, chills, chest pain, palpitations, abdominal pain, nausea, vomiting. OBJECTIVE: Vital Signs Period Temp Pulse Resp BP Sys/Buck Pulse Ox Last 24 Hr 97.3 F-98.8 F 69-89 7-20 119-170/72-99 94-100 GENERAL: The patient is awake, alert, and fully oriented, in no acute distress. HEAD: Normocephalic, atraumatic. EYES: PERRL, extraocular movements intact, sclera anicteric, conjunctiva clear. ENT: Oropharynx clear without exudates, moist mucous membranes. NECK: Supple without lymphadenopathy LUNGS: Breath sounds equal, clear to auscultation bilaterally, no wheezes, no crackles. No accessory muscle use. HEART: Regular rate and rhythm, S1, S2 without murmur, rub or gallop. ABDOMEN: Soft, nontender, nondistended, normoactive bowel sounds X4 quadrants. No guarding, no rebound tenderness. EXTREMITIES: 2+ radial, dorsalis pedis pulses bilaterally. Warm, well-perfused. 2+ pitting edema at ankles bilaterally. NEUROLOGICAL: Cranial nerves II through XII grossly intact. Normal speech. PSYCH: Normal mood, normal affect upon my encounter today. SKIN: Warm, dry. Laboratory Results - last 24 hr 07/05/18 07/05/18 07/05/18 13:25 14:12 18:00 WBC 7.6 RBC 3.20 L Hgb 10.9 Hct 31.8 L MCV 99.3 H MCH 33.9 H MCHC 34.2 RDW 14.6 Plt Count 290 MPV 9.1 D Absolute Neuts (auto) 5.5 Neutrophils % 72.7 Lymphocytes % 14.9 D Monocytes % 10.0 Eosinophils % 1.7 D Basophils % 0.7 Nucleated RBC % 0 Anticoagulation Therapy No Result Required. Puncture Site No Result Required. ABG pH 7.30 L ABG pCO2 at Pt Temp 73.6 H* ABG pO2 at Pt Temp 44.1 L* D ABG HCO3 35.0 H ABG O2 Sat (Measured) 71.7 L* ABG O2 Content 10.3 L ABG Base Excess 7.1 H Trevor Test No Result Required. Carboxyhemoglobin 1.2 Methemoglobin 0.5 O2 Delivery Device No Result Required. Oxygen Flow Rate No Result Required. Vent Mode No Result Required. Vent Rate No Result Required. Mechanical Rate No Result Required. Pressure Support Vent No Result Required. Sodium 139 Potassium 3.8 Chloride 99 Carbon Dioxide 34 H Anion Gap 7 L BUN 10 Creatinine 0.7 Creat Clearance w eGFR > 60 Random Glucose 71 L Calcium 8.6 Phosphorus Magnesium Total Bilirubin 0.4 AST 18 ALT 14 Alkaline Phosphatase 57 Ammonia Creatine Kinase 99 Troponin I 0.02 B-Natriuretic Peptide 6676.1 H Total Protein 6.3 L Albumin 3.2 L 07/05/18 07/05/18 07/06/18 20:20 20:22 05:30 WBC 7.8 RBC 3.26 L Hgb 10.8 Hct 31.9 L MCV 97.9 H MCH 33.1 MCHC 33.8 RDW 14.3 Plt Count 236 MPV 7.7 D Absolute Neuts (auto) 5.5 Neutrophils % 71.0 Lymphocytes % 17.5 Monocytes % 8.1 Eosinophils % 2.9 Basophils % 0.5 Nucleated RBC % 0 Anticoagulation Therapy No Result Required. Puncture Site No Result Required. ABG pH 7.33 L ABG pCO2 at Pt Temp 67.8 H* ABG pO2 at Pt Temp 122.0 H D ABG HCO3 34.9 H ABG O2 Sat (Measured) 98.5 ABG O2 Content 13.8 L ABG Base Excess 7.7 H Trevor Test No Result Required. Carboxyhemoglobin Methemoglobin O2 Delivery Device No Result Required. Oxygen Flow Rate No Result Required. Vent Mode No Result Required. Vent Rate No Result Required. Mechanical Rate No Result Required. Pressure Support Vent No Result Required. Sodium Potassium Chloride Carbon Dioxide Anion Gap BUN Creatinine Creat Clearance w eGFR Random Glucose Calcium Phosphorus Magnesium Total Bilirubin AST ALT Alkaline Phosphatase Ammonia 35.02 H Creatine Kinase Troponin I B-Natriuretic Peptide Total Protein Albumin 07/06/18 07/06/18 05:30 07:50 WBC RBC Hgb Hct MCV MCH MCHC RDW Plt Count MPV Absolute Neuts (auto) Neutrophils % Lymphocytes % Monocytes % Eosinophils % Basophils % Nucleated RBC % Anticoagulation Therapy Puncture Site Left radial ABG pH 7.41 ABG pCO2 at Pt Temp 61.4 H* ABG pO2 at Pt Temp 66.4 L D ABG HCO3 38.1 H ABG O2 Sat (Measured) 92.4 ABG O2 Content 13.7 L ABG Base Excess 11.8 H Trevor Test Positive Carboxyhemoglobin Methemoglobin O2 Delivery Device Bipap Oxygen Flow Rate 30% Vent Mode S/t Vent Rate 16 Mechanical Rate Bipap Pressure Support Vent Ipap12/epap6 Sodium 142 Potassium 3.3 L Chloride 97 L Carbon Dioxide 37 H Anion Gap 7 L BUN 8 Creatinine 0.6 Creat Clearance w eGFR > 60 Random Glucose 59 L Calcium 8.4 L Phosphorus 3.5 Magnesium 1.2 L Total Bilirubin 0.7 AST 19 ALT 12 L Alkaline Phosphatase 51 Ammonia Creatine Kinase Troponin I B-Natriuretic Peptide Total Protein 5.7 L Albumin 2.9 L Active Medications Generic Name Dose Route Start Last Admin Trade Name Freq PRN Reason Stop Dose Admin Abacavir/Dolutegravir/Lamivudine 1 each 07/06/18 10:00 Triumeq (Non-Formulary) PO DAILY [facility] Acetaminophen 650 mg 07/05/18 18:44 Tylenol - PO Q6H PRN PAIN LEVEL 6-10 Clopidogrel Bisulfate 75 mg 07/06/18 10:00 Plavix - PO DAILY [facility] Enoxaparin Sodium 40 mg 07/06/18 10:00 Lovenox - SQ DAILY [facility] Escitalopram Oxalate 10 mg 07/06/18 10:00 Lexapro - PO DAILY [facility] Furosemide 40 mg 07/06/18 10:00 Lasix Injection - IVPUSH DAILY [facility] Hydralazine HCl 50 mg 07/05/18 22:00 07/06/18 06:36 Apresoline - PO 50 mg TID [facility] Administration Magnesium Sulfate 2 gm 07/06/18 08:40 Magnesium Sulfate IVPB 07/06/18 08:41 ONCE ONE Nitroglycerin 0.4 mg 07/05/18 18:41 Nitrostat - SL Q5M PRN FOR CHEST PAIN Potassium Chloride 40 meq 07/06/18 16:00 K-Dur - PO 07/06/18 16:01 ONCE ONE ASSESSMENT/PLAN: Patient is a 67 year old female with history of hypertension, coronary artery disease s/p CABG, peripheral vascular disease s/p bilateral lower extremity stents, Hepatitis C, COPD (on home oxygen), presented to [facility] for shortness of breath, with associated recent weight gain. Admitted to ICU with congestive heart failure exacerbation. Neurological -Patient is awake, alert, oriented, no acute distress -Monitor for signs of mental status change Pulmonary COPD -Acute hypoxic hypoxemic respiratory failure, likely secondary to CHF exacerbation -Patient is saturating well on 2L nasal canula. Maintain oxygen saturation greater than 90% -Repeat ABG shows resolution of acidosis. CO2 likely at baseline -Chest xray shows right sided infiltrate, and effusion. -Methyl-Prednisone 40mg IV daily -Advair 1 puff IH BID -Lasix 40mg IV daily -Monitor without antibiotics at this time. Cardiovascular Coronary artery disease s/p CABG Peripheral vascular disease S/P bilateral lower extremity stents Hypertension -Aspirin 81mg PO daily -Plavix 75mg PO daily -Lasix 40mg IV daily -Follow cardaic ECHO -Carvedilol 12.5mg O BID -Losartan 50mg PO BID -Hydralazine 50mg PO TID -Atorvastatin 10mg PO HS -Ranolazine 500mg PO BID -Strict intake & output -Daily weights Gastrointestinal History of HCV -Sodium controlled diet. -Protonix 20mg PO daily Infectious disease HIV -Continue Triumeq Renal -Strict urine output -Follow Cr Psychiatric Anxiety, depression -Lexapro 10mg PO daily FEN -No IV fluids indicated -Follow CMP, replete as necessary -Sodium controlled diet Prophylaxis -Lovenox 40mg subq daily -Protonix 20mg PO daily Disposition -Patient medically stable for transfer to Telemetry floor. Visit type - Emergency Visit Emergency Visit: Yes ED Registration Date: 07/05/18 Care time: The patient presented to the Emergency Department on the above date and was hospitalized for further evaluation of their emergent condition. - New Patient This patient is new to me today: Yes Date on this admission: 07/06/18 - Critical Care Critical Care patient: Yes Total Critical Care Time (in minutes): 35 Critical Care Statement: The care of this patient involved high complexity decision making to prevent further life threatening deterioration of the patient 's condition and/or to evaluate & treat vital organ system(s) failure or risk of failure. - Discharge Referral Referred to [facility] Med P.C.: No
[2018-07-06] MEDS ORDERED: PT OWN MED DRAWER 7, Y5N ONE ×2 (09:39→16:53)
[2018-07-06] MEDS ORDERED: FUROSEMIDE 40 MG/4 ML INJECTABLE VIAL IVPUSH SCH (10:00)
[2018-07-06] MEDS ORDERED: CLOPIDOGREL BISULFATE 75 MG TABLET (FP) PO SCH (10:00)
[2018-07-06] MEDS ORDERED: ABACAVIR/DOLUTEGRAVIR/LAMIVUDI (TRIUMEQ) TABLET -NF PO SCH (10:00)
[2018-07-06] MEDS ORDERED: ESCITALOPRAM OXALATE 10 MG TABLET (FP) PO SCH (10:00)
[2018-07-06] MEDS ORDERED: ENOXAPARIN NA (PORCINE) 40 MG/0.4 ML DISP.SYRIN SQ SCH (10:00)
--- NOTE | 2018-07-06 10:45 | EKG ---
Test Reason : Blood Pressure : / mmHG Vent. Rate : 079 BPM Atrial Rate : 079 BPM P-R Int : 130 ms QRS Dur : 104 ms QT Int : 410 ms P-R-T Axes : 068 013 023 degrees QTc Int : 470 ms NORMAL SINUS RHYTHM LOW VOLTAGE QRS NONSPECIFIC T WAVE ABNORMALITY PROLONGED QT ABNORMAL ECG WHEN COMPARED WITH ECG OF 25-APR-2018 10:51, QT HAS LENGTHENED Confirmed by CRESCENCIO JARRELL, HAMILTON ([id number]) on 07/06/2018 10:45:29 AM Referred By: Confirmed By:HAMILTON PRATHER MD
--- NOTE | 2018-07-06 13:07 | PN ---
Teaching Attending Note Name of Resident: John Davis ATTENDING PHYSICIAN STATEMENT I saw and evaluated the patient. I reviewed the resident's note and discussed the case with the resident. I agree with the resident's findings and plan as documented. SUBJECTIVE: Pt seen and examined in the ICU. States breathing improving. Diuresed well with lasix yesterday. OBJECTIVE: Vital Signs Period Temp Pulse Resp BP Sys/Buck Pulse Ox Last 24 Hr 97.3 F-98.7 F 69-97 7-20 119-170/72-99 94-100 Intake & Output 07/03/18 07/04/18 07/05/18 07/06/18 23:59 23:59 23:59 23:59 Intake Total 80 Output Total 5000 2100 Balance -5000 -2019 Weight 70.261 kg Gen: NAD at rest Heart: RRR Lung: scattered rhonchi Abd: soft, nontender Ext: distal edema CBC, BMP 07/06/18 05:30 07/06/18 05:30 Active Medications Abacavir/Dolutegravir/Lamivudine (Triumeq (Non-Formulary)) 1 each PO DAILY [facility] Last Admin: 07/06/18 09:44 Dose: 1 each Acetaminophen (Tylenol -) 650 mg PO Q6H PRN PRN Reason: PAIN LEVEL 6-10 Clopidogrel Bisulfate (Plavix -) 75 mg PO DAILY [facility] Last Admin: 07/06/18 09:43 Dose: 75 mg Enoxaparin Sodium (Lovenox -) 40 mg SQ DAILY [facility] Last Admin: 07/06/18 09:45 Dose: 40 mg Escitalopram Oxalate (Lexapro -) 10 mg PO DAILY [facility] Last Admin: 07/06/18 10:01 Dose: 10 mg Furosemide (Lasix Injection -) 40 mg IVPUSH DAILY [facility] Last Admin: 07/06/18 09:43 Dose: 40 mg Hydralazine HCl (Apresoline -) 50 mg PO TID [facility] Last Admin: 07/06/18 06:36 Dose: 50 mg Nitroglycerin (Nitrostat -) 0.4 mg SL Q5M PRN PRN Reason: FOR CHEST PAIN Potassium Chloride (K-Dur -) 40 meq PO ONCE ONE Stop: 07/06/18 16:01 ASSESSMENT AND PLAN: Acute on Chronic Hypercapneic Respiratory Failure Right Heart Failure/Volume Overload Acute on Chronic Diastolic Heart Failure COPD CAD s/p CABG HTN PAD HIV Hep C - continue lasix - monitor urine output, creatinine - daily weights - continue empiric medrol 40mg daily - inhaled bronchodilators - monitor off antibiotics - BiPAP as needed - outpt PFTs and PSG - DVT prophylaxis - can monitor on floor
--- NOTE | 2018-07-06 13:09 | ECHO ---
Name: GONSALEZ VIRGINIEMarcelina Exam:Adult Echocardiogram Study Date: 07/06/2018 11:21 AM Age: 67 yrs Reason For Study: CHF Height: 68 in Weight: 140 lb BSA: 1.8 m2 MMode/2D Measurements & Calculations IVSd: 1.6 cm Ao root diam: 3.7 cm LVIDd: 3.9 cm LA dimension: 3.7 cm LVIDs: 2.1 cm LVPWd: 1.3 cm EDV(Teich): 67.0 ml LVOT diam: 2.0 cm ESV(Teich): 14.7 ml LAV (MOD-bp): 47.3 ml Doppler Measurements & Calculations MV E max jose: 54.3 cm/sec Ao V2 max: 161.9 cm/sec MV A max jose: 127.6 cm/sec Ao max P.5 mmHg MV E/A: 0.43 MV dec time: 0.08 sec KALIE(V,D): 2.6 cm2 LV V1 max P.8 mmHg MR max jose: 336.2 cm/sec LV V1 max: 130.0 cm/sec MR max P.2 mmHg TR max jose: 369.0 cm/sec PA V2 max: 118.1 cm/sec TR max P.8 mmHg PA max P.6 mmHg Med Peak E' Jose: 5.4 cm/sec PI Vmax: 184.8 cm/sec Med E/e': 10.0 Lat Peak E' Jose: 7.9 cm/sec Lat E/e': 6.8 Procedure A two-dimensional transthoracic echocardiogram with color flow and Doppler was performed. Left Ventricle There is moderate concentric left ventricular hypertrophy. Left ventricular systolic function is mau sly normal. E/A reversal consistent with but not diagnostic of poor LV compliance. Paradoxical septal mot ion is consistent with right ventricular volume overload. Septal motion is consistent with conduction abnorm ality. Regional wall motion abnormalities cannot be excluded due to limited visualization. Right Ventricle The right ventricle is moderately dilated. The right ventricular systolic function is moderately redu vane. Atria The left atrial size is normal. The right atrium is moderate to severely dilated. Mitral Valve There is moderate mitral valve thickening. There is no mitral valve stenosis. There is mild to modera te mitral regurgitation. Tricuspid Valve There is mild tricuspid valve thickening. There is no tricuspid stenosis. There is severe tricuspid regurgitation. Right ventricular systolic pressure is elevated at >60mmHg. Aortic Valve The aortic valve is normal in structure and function. No hemodynamically significant valvular aortic stenosis. No aortic regurgitation is present. Pulmonic Valve The pulmonic valve is not well visualized. There is no pulmonic valvular stenosis. Mild pulmonic valv ular regurgitation. Great Vessels The aortic root is normal size. Pericardium/Pleura There is no pericardial effusion. Interpretation Summary There is moderate concentric left ventricular hypertrophy. The right atrium is moderate to severely dilated. There is severe tricuspid regurgitation. Right ventricular systolic pressure is elevated at >60mmHg. Left ventricular systolic function is grossly normal. Paradoxical septal motion is consistent with right ventricular volume overload. The right ventricle is moderately dilated. The right ventricular systolic function is moderately reduced. The left atrial size is normal. E/A reversal consistent with but not diagnostic of poor LV compliance Septal motion is consistent with conduction abnormality. Regional wall motion abnormalities cannot be excluded due to limited visualization. MD Otto Mills 07/06/2018 01:08 PM
[2018-07-06] MEDS ORDERED: methylPREDNISolone NA SUCC 40 MG/1 ML VIAL IVPUSH SCH (13:45)
--- NOTE | 2018-07-06 13:48 | PN ---
Physical Exam: SUBJECTIVE: Patient began on bipap over night, examined this morning and comfortable. She has no complaints. OBJECTIVE: Vital Signs Temperature 98.7 F 07/06/18 10:00 Pulse Rate 93 H 07/06/18 12:00 Respiratory Rate 18 07/06/18 12:00 Blood Pressure 143/73 07/06/18 12:00 O2 Sat by Pulse Oximetry (%) 96 07/06/18 06:33 GENERAL: Awake, alert, and fully oriented, in no acute distress. HEAD: Normal with no signs of trauma. LUNGS: Breath sounds equal, clear to auscultation bilaterally. No rales or wheezing heard, R sub scapular scar HEART: Regular rate and rhythm, normal S1 and S2 without murmur, rub or gallop. ABDOMEN: Soft, nontender, not distended, normoactive bowel sounds, no guarding, no rebound, no masses. MUSCULOSKELETAL: Normal range of motion at all joints. No bony deformities or tenderness. No CVA tenderness. LOWER EXTREMITIES: 2+ pitting edema up calfs, 1+ at thighs PSYCHIATRIC: Cooperative. Good eye contact. Appropriate mood and affect. SKIN: Warm, dry, normal turgor, no rashes or lesions noted, normal capillary refill. CBC, BMP 07/06/18 05:30 07/06/18 05:30 Active Medications Abacavir/Dolutegravir/Lamivudine (Triumeq (Non-Formulary)) 1 each PO DAILY [facility] Last Admin: 07/06/18 09:44 Dose: 1 each Acetaminophen (Tylenol -) 650 mg PO Q6H PRN PRN Reason: PAIN LEVEL 6-10 Clopidogrel Bisulfate (Plavix -) 75 mg PO DAILY [facility] Last Admin: 07/06/18 09:43 Dose: 75 mg Enoxaparin Sodium (Lovenox -) 40 mg SQ DAILY [facility] Last Admin: 07/06/18 09:45 Dose: 40 mg Escitalopram Oxalate (Lexapro -) 10 mg PO DAILY [facility] Last Admin: 07/06/18 10:01 Dose: 10 mg Furosemide (Lasix Injection -) 40 mg IVPUSH DAILY [facility] Last Admin: 07/06/18 09:43 Dose: 40 mg Hydralazine HCl (Apresoline -) 50 mg PO TID [facility] Last Admin: 07/06/18 06:36 Dose: 50 mg Methylprednisolone Sodium Succinate (Solu-Medrol -) 40 mg IVPUSH DAILY [facility] Nitroglycerin (Nitrostat -) 0.4 mg SL Q5M PRN PRN Reason: FOR CHEST PAIN Potassium Chloride (K-Dur -) 40 meq PO ONCE ONE Stop: 07/06/18 16:01 ASSESSMENT/PLAN: Patient is a 67 y/o female with a history of HTN, CAD s/p CABG in 2009, PVD with b/l LE stents, HIV, HEP C, and COPD who presents with shortness of breath. #SOB 2/2 to CHF exacerbation - Lasix 40 IV push - echo: moderate concntric left ventricular hypertrophy, right atrium moderate to severely dialted, severe tricuspid regurg, RV pressure is > 60 mmhg , LV sys fxn normal, RV moderately dilated, septal motion consistent with conduction abnormality - Consulted Dr. Fitzgerald - Last Echo 04/04: severe TR with RV: 45, EF 50-55%, moderate pulmonary HTN - daily in's and outs, and weights, 5L out yesterday - ekg with some R heart strain, no ST elevations - BNP: 6676, - patient off bipap, on venti mask, ABG at baseline #COPD - nebs as needed - Advair BID #HTN - continue hydralazine - monitor with lasix - carvedilol 12.5 mg po bid - losartan 50 mg po bid #HIV - continue Triumec - recent CD4 count 440 - followed by Dr. Blake #HX stents - continue plavix - continue aspirin - continue atrvastatin #iron deficiency anemia - continue ferrous sulfate 325 mg po bid # Depression - continue Lexapro DVT ppx - Lovenox 40 sq daily FEN - replete K and Mg Dispo: monitor on tele * pharmacy closed f/u in morning for recconciliation Visit type - Emergency Visit Emergency Visit: No - New Patient This patient is new to me today: No - Critical Care Critical Care patient: No
[2018-07-06] MEDS ORDERED: ALBUTEROL SO4 0.083% IH SOL 2.5 MG/3 ML VIAL.NEB. NEB PRN (14:50)
[2018-07-06] MEDS ORDERED: NICOTINE IH PRN (14:50)
[2018-07-06] MEDS ORDERED: NALOXONE HCL 4 MG NS PRN (14:50)
[2018-07-06] MEDS ORDERED: FOSAMAX 70 MG PO SCH (15:00)
[2018-07-06] MEDS ORDERED: SODIUM CHLORIDE NASAL SPRAY 44 ML BOTTLE NS SCH (15:00)
[2018-07-06] MEDS ORDERED: ERGOCALCIFEROL (VITAMIN D2) 50,000 UNIT CAPSULE (FP) PO SCH (15:15)
[2018-07-06] MEDS ORDERED: MORPHINE SULFATE 2 MG/ML VIAL IM ONE (16:42)
[2018-07-06] MEDS ORDERED: morphine SULFATE 4 MG/ML VIAL ONE (16:52)
[2018-07-06] MEDS ORDERED: morphine SULFATE IMMEDIATE RELEASE 30 MG TAB PO PRN (16:57)
[2018-07-06] MEDS: GABAPENTIN 400 MG CAPSULE (FP) PO SCH ×2 (17:00→22:11)
--- NOTE | 2018-07-06 18:24 | PN ---
Teaching Attending Note Name of Resident: Deena Gennaro ATTENDING PHYSICIAN STATEMENT I saw and evaluated the patient. I reviewed the resident's note and discussed the case with the resident. I agree with the resident's findings and plan as documented. SUBJECTIVE: Much improvement in shortness of breath, off BiPAP. No fever/chills/ cough/sputum. OBJECTIVE: Afebrile, Hemodynamically Stable Last Vital Signs Temp Pulse Resp BP Pulse Ox 98.7 F 86 17 139/86 99 07/06/18 14:00 07/06/18 14:00 07/06/18 14:00 07/06/18 14:00 07/06/18 14:00 HEENT - Atraumatic, Normocephalic. Heart - S1, S2, soft SM Lungs - improved air entry, basal crackles improved. Abdomen - soft, non-tender. Bowel Sounds normal. Extremities - bilateral LE edema improving. No calf tenderness. Laboratory Results - last 24 hr 07/05/18 07/05/18 07/05/18 18:00 20:20 20:22 WBC RBC Hgb Hct MCV MCH MCHC RDW Plt Count MPV Absolute Neuts (auto) Neutrophils % Lymphocytes % Monocytes % Eosinophils % Basophils % Nucleated RBC % Anticoagulation Therapy No Result Required. Puncture Site No Result Required. No Result Required. ABG pH 7.30 L 7.33 L ABG pCO2 at Pt Temp 73.6 H* 67.8 H* ABG pO2 at Pt Temp 44.1 L* D 122.0 H D ABG HCO3 35.0 H 34.9 H ABG O2 Sat (Measured) 71.7 L* 98.5 ABG O2 Content 10.3 L 13.8 L ABG Base Excess 7.1 H 7.7 H Trevor Test No Result Required. No Result Required. Carboxyhemoglobin 1.2 Methemoglobin 0.5 O2 Delivery Device No Result Required. Oxygen Flow Rate No Result Required. No Result Required. Vent Mode No Result Required. Vent Rate No Result Required. Mechanical Rate No Result Required. Pressure Support Vent No Result Required. Sodium Potassium Chloride Carbon Dioxide Anion Gap BUN Creatinine Creat Clearance w eGFR Random Glucose Calcium Phosphorus Magnesium Total Bilirubin AST ALT Alkaline Phosphatase Ammonia 35.02 H Total Protein Albumin 07/06/18 07/06/18 07/06/18 05:30 05:30 07:50 WBC 7.8 RBC 3.26 L Hgb 10.8 Hct 31.9 L MCV 97.9 H MCH 33.1 MCHC 33.8 RDW 14.3 Plt Count 236 MPV 7.7 D Absolute Neuts (auto) 5.5 Neutrophils % 71.0 Lymphocytes % 17.5 Monocytes % 8.1 Eosinophils % 2.9 Basophils % 0.5 Nucleated RBC % 0 Anticoagulation Therapy Puncture Site Left radial ABG pH 7.41 ABG pCO2 at Pt Temp 61.4 H* ABG pO2 at Pt Temp 66.4 L D ABG HCO3 38.1 H ABG O2 Sat (Measured) 92.4 ABG O2 Content 13.7 L ABG Base Excess 11.8 H Trevor Test Positive Carboxyhemoglobin Methemoglobin O2 Delivery Device Bipap Oxygen Flow Rate 30% Vent Mode S/t Vent Rate 16 Mechanical Rate Bipap Pressure Support Vent Ipap12/epap6 Sodium 142 Potassium 3.3 L Chloride 97 L Carbon Dioxide 37 H Anion Gap 7 L BUN 8 Creatinine 0.6 Creat Clearance w eGFR > 60 Random Glucose 59 L Calcium 8.4 L Phosphorus 3.5 Magnesium 1.2 L Total Bilirubin 0.7 AST 19 ALT 12 L Alkaline Phosphatase 51 Ammonia Total Protein 5.7 L Albumin 2.9 L Current Medications Generic Name Dose Route Start Last Admin Trade Name Freq PRN Reason Stop Dose Admin Abacavir/Dolutegravir/Lamivudine 1 each 07/06/18 10:00 07/06/18 09:44 Triumeq (Non-Formulary) PO 1 each DAILY [facility] Administration Acetaminophen 650 mg 07/05/18 18:44 Tylenol - PO Q6H PRN PAIN LEVEL 6-10 Albuterol Sulfate 1 amp 07/06/18 14:50 Ventolin 0.083% Nebulizer Soln - NEB Q4H PRN SHORT OF BREATH/WHEEZING Aspirin 81 mg 07/07/18 10:00 Ecotrin - PO DAILY [facility] Atorvastatin Calcium 10 mg 07/07/18 22:00 Lipitor - PO HS [facility] Carvedilol 12.5 mg 07/06/18 22:00 Coreg - PO BID [facility] Clopidogrel Bisulfate 75 mg 07/06/18 10:00 07/06/18 09:43 Plavix - PO 75 mg DAILY [facility] Administration Diphenhydramine HCl 50 mg 07/06/18 22:00 Benadryl - PO HS [facility] Enoxaparin Sodium 40 mg 07/06/18 10:00 07/06/18 09:45 Lovenox - SQ 40 mg DAILY [facility] Administration Ergocalciferol 50,000 unit 07/06/18 15:15 Drisdol - PO We@1000 [facility] Escitalopram Oxalate 10 mg 07/06/18 10:00 07/06/18 10:01 Lexapro - PO 10 mg DAILY [facility] Administration Ferrous Sulfate 325 mg 07/06/18 22:00 Feosol - PO BID [facility] Furosemide 40 mg 07/06/18 10:00 07/06/18 09:43 Lasix Injection - IVPUSH 40 mg DAILY [facility] Administration Gabapentin 800 mg 07/06/18 15:15 07/06/18 17:00 Neurontin - PO 800 mg TID [facility] Administration Hydralazine HCl 50 mg 07/05/18 22:00 07/06/18 16:59 Apresoline - PO 50 mg TID [facility] Administration Losartan Potassium 50 mg 07/06/18 22:00 Cozaar - PO BID [facility] Methylprednisolone Sodium Succinate 40 mg 07/06/18 13:45 07/06/18 16:59 Solu-Medrol - IVPUSH 40 mg DAILY [facility] Administration Morphine Sulfate 30 mg 07/06/18 22:00 Ms Contin - PO TID [facility] Multivitamins/Minerals/Vitamin C 1 tab 07/07/18 10:00 Tab-A-Vit - PO DAILY [facility] Nitroglycerin 0.4 mg 07/05/18 18:41 Nitrostat - SL Q5M PRN FOR CHEST PAIN Pantoprazole Sodium 20 mg 07/07/18 10:00 Protonix - PO DAILY [facility] Ranolazine 500 mg 07/06/18 22:00 Ranexa - PO BID [facility] Fluticasone/Salmeterol 1 puff 07/06/18 22:00 Advair 100mcg/50mcg - IH BID [facility] Sodium Chloride 2 spray 07/06/18 15:00 [place] Nasal [place] - NS PRN [facility] ASSESSMENT AND PLAN: 67 year old female with history of CAD s/p CABG 2009, HIV, Hepatitis C, COPD, PAD s/p bilateral LE stents, HTN, Chronic Diastolic CHF, referred to ED by Dr. Blake's office with increasing SOB and weight gain of 20 pounds in 1-2 months. 1. Acute Hypoxic and Hypercapneic Respiratory Failure secondary to Acute on Chronic Diastolic/R sided HF decompensation pH 7.3/pCO2 73.6, pO2 44.1 on admission BNP 6676 CXR - R sided effusion, Cardiomegaly Echo 07/06 - Moderate LVH, RV dilatation (severe), Severe TR, RVSP > 60mmHg, LV systolic function normal, paradoxical septal motion is consistent with RV volume overload Respiratory status improved with IV Lasix 40mg daily. Repeat ABG improved - pH 7.41/61.4/66.4. Cardiology consulted. Monitor I/Os, Daily weights 2. COPD - No evidence of exacerbation. On empiric Steroids. DuoNebs. Mckenna. 3. HTN - Continue Hydralazine, Coreg, Losartan. 4. HIV - Continue HAART, follows with Dr. Blake 5. PAD s/p blateral LE stents - Continue Aspirin, Plavix, Statin 6. Depression - continue Lexapro 7. CAD s/p CABG - Continue Aspirin, Plavix, BB, MICHAEL-I, Statin. 8. Hepatitis C s/p Treatment - LFTs normal. 9. Hypomagnesemia/Hypokalemia - repleted. 10. Macrocytic Anemia - will request B12/Folate levels. DVT Px - Lovenox SQ
[2018-07-06] MEDS ORDERED: ACETAMINOPHEN 325 MG TABLET (FP) PO PRN (21:30)
[2018-07-06] MEDS ORDERED: NITROGLYCERIN SUBLINGUAL 1/150 0.4 MG TAB SL PRN (21:30)
[2018-07-06] MEDS ORDERED: PATIENT'S OWN MEDICATION (NON-FORMULARY) (Fluticasone/Salmeterol [Advair Hfa 230-21 Mcg In IH SCH (22:00)
[2018-07-06] MEDS ORDERED: LOSARTAN POTASSIUM 25 MG TABLET PO SCH (22:00)
[2018-07-06] MEDS: CARVEDILOL 12.5 MG TABLET (FP) PO SCH (22:11)
[2018-07-06] MEDS: LOSARTAN POTASSIUM 25 MG TABLET PO SCH ×2 (22:12→22:47)
[2018-07-06] MEDS: FERROUS SO4 325 MG TABLET (FP) PO SCH (22:12)
[2018-07-06] MEDS: RANOLAZINE E.R. 500 MG TABLET (FP) PO SCH (22:12)
[2018-07-06] MEDS: diphenhydrAMINE HCL 25 MG CAPSULE (FP) PO SCH (22:12)
[2018-07-06] MEDS: morphine SO4 SUSTAINED ACTING 30 MG TABLET.SA PO SCH (22:12)
[2018-07-06] MEDS: FLUTICASONE/SALMETEROL 100 MCG/50 MCG DISKUS IH SCH (22:47)
[2018-07-07] MEDS: GABAPENTIN 400 MG CAPSULE (FP) PO SCH ×3 (05:20→21:33)
[2018-07-07] MEDS: morphine SO4 SUSTAINED ACTING 30 MG TABLET.SA PO SCH ×3 (05:20→21:32)
[2018-07-07] MEDS: hydrALAZINE HCL 50 MG TABLET (FP) PO SCH (05:20)
[2018-07-07 07:14] LABS: HEMATOCRIT 34.7 % (32.4-45.2); HEMOGLOBIN 11.6 GM/dL (10.7-15.3); MCH 32.9 pg (25.7-33.7); MCHC 33.4 g/dl (32.0-36.0); MEAN CELL VOLUME 98.4 fl (80-96); MEAN PLT VOLUME 7.5 fl (7.5-11.1); PLATELET COUNT 268 K/MM3 (134-434); RBC 3.53 M/mm3 (3.60-5.2); RDW 14.8 % (11.6-15.6); WHITE BLOOD COUNT 9.8 K/mm3 (4.0-10.0)
[2018-07-07] MEDS ORDERED: BENZOCAINE/MENTH/CETYLPYRD CL 1 EACH LOZENGE MM PRN (07:46)
--- NOTE | 2018-07-07 08:21 | PN ---
Physical Exam: SUBJECTIVE: Patient seen this morning and reports a new cough. States her breathing is better. No acute events overnight. OBJECTIVE: Vital Signs Temperature 98.1 F 07/07/18 06:00 Pulse Rate 83 07/07/18 06:00 Respiratory Rate 20 07/07/18 06:00 Blood Pressure 131/75 07/07/18 06:00 O2 Sat by Pulse Oximetry (%) 96 07/07/18 07:21 GENERAL: Awake, alert, and fully oriented, in no acute distress. HEAD: Normal with no signs of trauma. LUNGS: Breath sounds equal, clear to auscultation bilaterally. No rales or wheezing heard, R sub scapular scar HEART: Regular rate and rhythm, normal S1 and S2 without murmur, rub or gallop. ABDOMEN: Soft, nontender, not distended, normoactive bowel sounds, no guarding, no rebound, no masses. MUSCULOSKELETAL: Normal range of motion at all joints. No bony deformities or tenderness. No CVA tenderness. LOWER EXTREMITIES: 2+ pitting edema up calfs, 1+ at thighs PSYCHIATRIC: Cooperative. Good eye contact. Appropriate mood and affect. SKIN: Warm, dry, normal turgor, no rashes or lesions noted, normal capillary refill. CBC, BMP 07/07/18 06:30 07/07/18 06:30 Active Medications Abacavir/Dolutegravir/Lamivudine (Triumeq (Non-Formulary)) 1 each PO DAILY [facility] Acetaminophen (Tylenol -) 650 mg PO Q6H PRN PRN Reason: PAIN LEVEL 6-10 Albuterol Sulfate (Ventolin 0.083% Nebulizer Soln -) 1 amp NEB Q4H PRN PRN Reason: SHORT OF BREATH/WHEEZING Aspirin (Ecotrin -) 81 mg PO DAILY [facility] Atorvastatin Calcium (Lipitor -) 10 mg PO HS [facility] Benzocaine/Menthol (Cepacol Lozenge -) 1 each MM PRN PRN PRN Reason: SORE THROAT Carvedilol (Coreg -) 12.5 mg PO BID [facility] Last Admin: 07/06/18 22:11 Dose: 12.5 mg Clopidogrel Bisulfate (Plavix -) 75 mg PO DAILY [facility] Diphenhydramine HCl (Benadryl -) 50 mg PO HS [facility] Last Admin: 07/06/18 22:12 Dose: 50 mg Enoxaparin Sodium (Lovenox -) 40 mg SQ DAILY [facility] Ergocalciferol (Drisdol -) 50,000 unit PO We@1000 [facility] Last Admin: 07/06/18 19:24 Dose: Not Given Escitalopram Oxalate (Lexapro -) 10 mg PO DAILY [facility] Ferrous Sulfate (Feosol -) 325 mg PO BID [facility] Last Admin: 07/06/18 22:12 Dose: 325 mg Furosemide (Lasix Injection -) 40 mg IVPUSH DAILY [facility] Gabapentin (Neurontin -) 800 mg PO TID [facility] Last Admin: 07/07/18 05:20 Dose: 800 mg Hydralazine HCl (Apresoline -) 50 mg PO TID [facility] Last Admin: 07/07/18 05:20 Dose: 50 mg Losartan Potassium (Cozaar -) 50 mg PO BID [facility] Last Admin: 07/06/18 22:47 Dose: Not Given Methylprednisolone Sodium Succinate (Solu-Medrol -) 40 mg IVPUSH DAILY [facility] Morphine Sulfate (Ms Contin -) 30 mg PO TID [facility] Last Admin: 07/07/18 05:20 Dose: 30 mg Multivitamins/Minerals/Vitamin C (Tab-A-Vit -) 1 tab PO DAILY [facility] Nitroglycerin (Nitrostat -) 0.4 mg SL Q5M PRN PRN Reason: FOR CHEST PAIN Pantoprazole Sodium (Protonix -) 20 mg PO DAILY [facility] Ranolazine (Ranexa -) 500 mg PO BID [facility] Last Admin: 07/06/18 22:12 Dose: 500 mg Fluticasone/Salmeterol (Advair 100mcg/50mcg -) 1 puff IH BID [facility] Last Admin: 07/06/18 22:47 Dose: Not Given Sodium Chloride ([place] -) 2 spray NS PRN [facility] ASSESSMENT/PLAN: Patient is a 67 y/o female with a history of HTN, CAD s/p CABG in 2009, PVD with b/l LE stents, HIV, HEP C, and COPD who presents with shortness of breath. #CHF exacerbation, R volume overload and RV dsfxn - Lasix 40 IV push daily - echo: moderate concntric left ventricular hypertrophy, right atrium moderate to severely dialted, severe tricuspid regurg, RV pressure is > 60 mmhg , LV sys fxn normal, RV moderately dilated, septal motion consistent with conduction abnormality - aldactone 25 mg daily - BNP: 6676, - patient off bipap, on venti mask, ABG at baseline - clinically significantly improved #cough - CXR: without pathology - cepacol - use spirometer #COPD - nebs as needed - Advair BID - methylprednisolone 40 mg IV daily - outpatient PFTs and PSG #HTN - monitor with lasix - carvedilol 12.5 mg po bid - losartan 50 mg po bid - Ranexa 500 BID #HIV - continue Triumec - recent CD4 count 440 - followed by Dr. Blake #HX stents - continue plavix - continue aspirin ( coated does not irritate the stomach) - continue atrvastatin #iron deficiency anemia - continue ferrous sulfate 325 mg po bid # Depression - continue Lexapro DVT ppx - Lovenox 40 sq daily FEN - replete Mg Dispo: monitor on tele Visit type - Emergency Visit Emergency Visit: No - New Patient This patient is new to me today: No - Critical Care Critical Care patient: No
[2018-07-07 08:38] LABS: ALBUMIN 2.7 g/dl (3.4-5.0); ALK PHOS 50 U/L (45-117); ANION GAP 2 MMOL/L (8-16); BILIRUBIN,TOTAL 0.3 mg/dL (0.2-1); BLOOD UREA NITROGEN 9 mg/dL (7-18); CALCIUM 8.5 mg/dL (8.5-10.1); CHLORIDE 96 mmol/L (98-107); CO2 42 mmol/L (21-32); CREATININE 0.7 mg/dL (0.55-1.3); GLUCOSE,RANDOM 73 mg/dL (74-106); MAGNESIUM 1.4 mg/dL (1.8-2.4); PHOSPHOROUS 3.6 mg/dL (2.5-4.9); POTASSIUM 3.8 mmol/L (3.5-5.1); SGOT/AST 15 U/L (15-37); SGPT/ALT 12 U/L (13-61); SODIUM 141 mmol/L (136-145); TOT PROT 5.7 g/dl (6.4-8.2)
--- NOTE | 2018-07-07 09:36 | CON.CARD ---
Consult Consult Specialty:: Cardiology Referred by:: Hospitalist Medicine Reason for Consultation:: CHF - History of Present Illness Chief Complaint: Dyspnea History of Present Illness: Patient is a 67 y/o female with a history of HTN, CAD s/p CABG in 2009, PVD with b/l LE stents, HIV, HEP C, and COPD who presents with progressive shortness of breath with exertion, decreased exercise capacity, 20 pound increase in weight, orthopnea, LE edema, found to have hypoxic respiratory failure received diuresis with relief, reports compliance with medication, diet , denies NSAID use. She denies palpitations, near or true syncope, chest tightness. - History Source History Provided By: Patient Limitations to Obtaining History: No Limitations - Past Medical History Cardio/Vascular: Yes: CAD, CHF, Pulmonary Hypertension, Other (PVD) Pulmonary: Yes: Asthma, COPD Hepatobiliary: Yes: Cholelithiasis, Hepatitis C Infectious Disease: Yes: HIV - Past Surgical History Past Surgical History: Yes: CABG, Stent (b/l LE stents ) - Alcohol/Substance Use Hx Alcohol Use: Yes (social) History of Substance Use: reports: None - Smoking History Smoking history: Former smoker Have you smoked in the past 12 months: Yes Aproximately how many cigarettes per day: 5 If you are a former smoker, when did you quit?: May 2018 - Social History Usual Living Arrangement: With Child ADL: Support Services History of Recent Travel: No Home Medications - Allergies Allergies/Adverse Reactions: Allergies Allergy/AdvReac Type Severity Reaction Status Date / Time aspirin AdvReac Mild GI upset Verified 07/05/18 13:02 - Home Medications Home Medications: Ambulatory Orders Gabapentin [Neurontin -] 800 mg PO Q8H 04/04/18 Albuterol 0.083% Nebulizer Sun [Ventolin 0.083% Nebulizer Soln -] 1 amp NEB Q4H PRN #7 amp 04/11/18 Carvedilol [Coreg -] 12.5 mg PO BID #60 tablet 04/11/18 Losartan Potassium [Cozaar -] 50 mg PO BID #30 tablet 04/11/18 Naloxone HCl [Narcan] 4 mg NS ONCE PRN #1 spray 05/24/18 Acetaminophen 2 tab PO DAILY PRN #60 tablet 06/01/18 Ergocalciferol (Vitamin D2) [Vitamin D2] 50,000 unit PO Q7D #4 capsule 06/01/18 Cholecalciferol (Vitamin D3) [Vitamin D3] 2,000 unit PO DAILY 06/03/18 Fosamax 70 mg PO WEEKLY 06/03/18 Sodium Chloride [Saline Nose [place]] 1 - 2 sprays NS PRN #1 spray 06/03/18 Abacavir/Dolutegravir/Lamivudi [Triumeq 600-50-300 mg Tablet] 1 each PO DAILY # 30 tablet 06/08/18 Albuterol Sulfate Inhaler - [Ventolin HFA Inhaler -] 1 - 2 inh PO Q6H PRN #1 inhaler 06/08/18 Aspirin Coated [Ecotrin -] 81 mg PO DAILY #30 tablet.ec 06/08/18 Calcium Carbonate/Vitamin D3 [Calcium 500-Vit D3 200 Caplet] 1 tab PO DAILY #30 tablet 06/08/18 Clopidogrel Bisulfate [Plavix] 75 mg PO DAILY #30 tablet 06/08/18 Diphenhydramine [Benadryl -] 50 mg PO HS #30 capsule 06/08/18 Escitalopram Oxalate [Lexapro -] 10 mg PO DAILY #30 tablet 06/08/18 Ferrous Sulfate [Feosol] 325 mg PO BID #60 tablet 06/08/18 Fluticasone/Salmeterol [Advair Hfa 230-21 Mcg Inhaler] 2 puff IH BID #1 hfa.aer.ad 06/08/18 Multivitamin [One-Daily Multi-Vitamin] 1 each PO DAILY #30 tablet 06/08/18 Nicotine [Nicotrol Ns] 1 dose IH DAILY PRN #1 spray 06/08/18 Pantoprazole Sodium [Protonix -] 20 mg PO DAILY #30 tablet.ec 06/08/18 Ranolazine [Ranexa -] 500 mg PO BID #60 tab 06/08/18 Simvastatin 10 mg PO DAILY #30 tablet 06/08/18 hydrALAZINE HCL [Apresoline -] 50 mg PO TID #90 tablet 06/08/18 Morphine *Sr* [Ms Contin -] 30 mg PO Q8H #90 tablet.er MDD 3 06/14/18 Family Disease History - Family Disease History Family Disease History: Heart Disease: Mother (, hx etoh), Sister (two - living), [place]: Sister, Other: Father (, hx etoh), Mother, Brother (two living - five - ? reason), Sister, Daughter (two adults) Review of Systems - Review of Systems Cardiovascular: reports: Edema Respiratory: reports: Exercise Intolerance, SOB on Exertion Vital Signs: Vital Signs Temperature 98.1 F 07/07/18 06:00 Pulse Rate 83 07/07/18 06:00 Respiratory Rate 20 07/07/18 06:00 Blood Pressure 131/75 07/07/18 06:00 O2 Sat by Pulse Oximetry (%) 96 07/07/18 07:21 Constitutional: Yes: No Distress, Calm, Thin Neck: Yes: Supple Respiratory: Yes: Regular, Diminished, On Nasal O2 Gastrointestinal: Yes: Normal Bowel Sounds, Soft Cardiovascular: Yes: Regular Rate and Rhythm JVD: No Carotid Bruit: No Heart Sounds: Yes: S1, S2 Murmur: Yes: Systolic Murmur, Grade 2 Edema: No - Other Data Labs, Other Data: CBC, BMP 07/07/18 06:30 07/07/18 06:30 NSR @ 79 Imaging - Results Chest X-ray: Report Reviewed (Right effusion) Problem List - Problems (1) Cor pulmonale, chronic Code(s): I27.81 - COR PULMONALE (CHRONIC) (2) Acute exacerbation of congestive heart failure Code(s): I50.9 - HEART FAILURE, UNSPECIFIED Qualifiers: Heart failure type: diastolic Qualified Code(s): I50.33 - Acute on chronic diastolic (congestive) heart failure (3) Acute on chronic respiratory failure with hypoxia and hypercapnia Code(s): J96.21 - ACUTE AND CHRONIC RESPIRATORY FAILURE WITH HYPOXIA; J96.22 - ACUTE AND CHRONIC RESPIRATORY FAILURE WITH HYPERCAPNIA (4) COPD (chronic obstructive pulmonary disease) Code(s): J44.9 - CHRONIC OBSTRUCTIVE PULMONARY DISEASE, UNSPECIFIED Qualifiers: COPD type: unspecified COPD Qualified Code(s): J44.9 - Chronic obstructive pulmonary disease, unspecified (5) HTN (hypertension) Code(s): I10 - ESSENTIAL (PRIMARY) HYPERTENSION Qualifiers: Hypertension type: essential hypertension Qualified Code(s): I10 - Essential (primary) hypertension (6) PVD (peripheral vascular disease) Code(s): I73.9 - PERIPHERAL VASCULAR DISEASE, UNSPECIFIED (7) S/P CABG (coronary artery bypass graft) Code(s): Z95.1 - PRESENCE OF AORTOCORONARY BYPASS GRAFT (8) Hyperlipidemia Code(s): E78.5 - HYPERLIPIDEMIA, UNSPECIFIED (9) CAD (coronary artery disease) Code(s): I25.10 - ATHSCL HEART DISEASE OF [place] CORONARY ARTERY W/O ANG PCTRS Qualifiers: Coronary Disease-Associated Artery/Lesion type: [place] artery [place] vs. transplanted heart: [place] heart Associated angina: without angina Qualified Code(s): I25.10 - Atherosclerotic heart disease of [place] coronary artery without angina pectoris Assessment/Plan Echo: 07/06/2018 Mod cLVH with preserved LV fxn, mod-severe RITIKA, severe TR, RVSP >60, RV volume overload with mod decreased RV fxn 1. Acute on chronic hypercapneic/hypoxemic respiratory failure, related to 2. Right Heart Failure/Volume Overload 3. Acute on Chronic Diastolic Heart Failure 4. Chronic obstructive pulmonary disease 4. CAD s/p CABG, angina pectoris 5. LV diastolic dysfunction with class 0 NYHA classification LV failure 7. HTN 8. Hypercholesterolemia 9. HIV, Hep C 10. Smoker 11. PAD s/p SFA stent PLAN: 1. IV diuresis and add Aldactone 25 qd with monitor diuretic response, renal fxn and electrolytes 2. Continue ASA 81 qd, carvedilol 12.5 bid, Plavix 75 qd, losartan 50 bid, Lipitor 10 qd, Ranexa 500 bid, d/c hydralazine 3. IV steroid taper, BD, O2 to keep SpO2 88-92%, off antibiotics as per the primary team 4. Bipap as needed 5. Smoking cessation discussed, outpt PFTs and PSG and f/u, needs home O2 6. DVT prophylaxis, HAART 7. Thank you for consultative opportunity
[2018-07-07] MEDS: FLUTICASONE/SALMETEROL 100 MCG/50 MCG DISKUS IH SCH ×2 (09:41→21:36)
[2018-07-07] MEDS: PANTOPRAZOLE 20 MG TABLET (FP) PO SCH (09:42)
[2018-07-07] MEDS: ASPIRIN COATED 81 MG TABLET.EC PO SCH (09:42)
[2018-07-07] MEDS: methylPREDNISolone NA SUCC 40 MG/1 ML VIAL IVPUSH SCH (09:42)
[2018-07-07] MEDS: ENOXAPARIN NA (PORCINE) 40 MG/0.4 ML DISP.SYRIN SQ SCH (09:42)
[2018-07-07] MEDS: RANOLAZINE E.R. 500 MG TABLET (FP) PO SCH ×2 (09:42→21:33)
[2018-07-07] MEDS: LOSARTAN POTASSIUM 25 MG TABLET PO SCH ×2 (09:42→21:33)
[2018-07-07] MEDS: ESCITALOPRAM OXALATE 10 MG TABLET (FP) PO SCH (09:42)
[2018-07-07] MEDS: CARVEDILOL 12.5 MG TABLET (FP) PO SCH ×2 (09:42→21:33)
[2018-07-07] MEDS: CLOPIDOGREL BISULFATE 75 MG TABLET (FP) PO SCH (09:42)
[2018-07-07] MEDS: FERROUS SO4 325 MG TABLET (FP) PO SCH ×2 (09:42→21:33)
[2018-07-07] MEDS: ABACAVIR/DOLUTEGRAVIR/LAMIVUDI (TRIUMEQ) TABLET -NF PO SCH (09:42)
[2018-07-07] MEDS: FUROSEMIDE 40 MG/4 ML INJECTABLE VIAL IVPUSH SCH (09:42)
[2018-07-07] MEDS: MULTIVITAMINS (DAILY MVI) TABLET (FP) PO SCH (09:42)
[2018-07-07] MEDS ORDERED: CALCIUM 500MG/VIT-D 200 UNITS COMBO TABLET (FP) PO SCH (10:00)
--- NOTE | 2018-07-07 10:35 | PN ---
Progress Note, Physician History of Present Illness: PULMONARY ALERT,FEELING BETTER,LESS DYSPNEIC - Current Medication List Current Medications: Active Medications Abacavir/Dolutegravir/Lamivudine (Triumeq (Non-Formulary)) 1 each PO DAILY [facility] Last Admin: 07/07/18 09:42 Dose: 1 each Acetaminophen (Tylenol -) 650 mg PO Q6H PRN PRN Reason: PAIN LEVEL 6-10 Albuterol Sulfate (Ventolin 0.083% Nebulizer Soln -) 1 amp NEB Q4H PRN PRN Reason: SHORT OF BREATH/WHEEZING Aspirin (Ecotrin -) 81 mg PO DAILY [facility] Last Admin: 07/07/18 09:42 Dose: 81 mg Atorvastatin Calcium (Lipitor -) 10 mg PO HS [facility] Benzocaine/Menthol (Cepacol Lozenge -) 1 each MM PRN PRN PRN Reason: SORE THROAT Carvedilol (Coreg -) 12.5 mg PO BID [facility] Last Admin: 07/07/18 09:42 Dose: 12.5 mg Clopidogrel Bisulfate (Plavix -) 75 mg PO DAILY [facility] Last Admin: 07/07/18 09:42 Dose: 75 mg Diphenhydramine HCl (Benadryl -) 50 mg PO HS [facility] Last Admin: 07/06/18 22:12 Dose: 50 mg Enoxaparin Sodium (Lovenox -) 40 mg SQ DAILY [facility] Last Admin: 07/07/18 09:42 Dose: 40 mg Ergocalciferol (Drisdol -) 50,000 unit PO We@1000 [facility] Last Admin: 07/06/18 19:24 Dose: Not Given Escitalopram Oxalate (Lexapro -) 10 mg PO DAILY [facility] Last Admin: 07/07/18 09:42 Dose: 10 mg Ferrous Sulfate (Feosol -) 325 mg PO BID [facility] Last Admin: 07/07/18 09:42 Dose: 325 mg Furosemide (Lasix Injection -) 40 mg IVPUSH DAILY [facility] Last Admin: 07/07/18 09:42 Dose: 40 mg Gabapentin (Neurontin -) 800 mg PO TID [facility] Last Admin: 07/07/18 05:20 Dose: 800 mg Losartan Potassium (Cozaar -) 50 mg PO BID [facility] Last Admin: 07/07/18 09:42 Dose: 50 mg Methylprednisolone Sodium Succinate (Solu-Medrol -) 40 mg IVPUSH DAILY [facility] Last Admin: 07/07/18 09:42 Dose: 40 mg Morphine Sulfate (Ms Contin -) 30 mg PO TID [facility] Last Admin: 07/07/18 05:20 Dose: 30 mg Multivitamins/Minerals/Vitamin C (Tab-A-Vit -) 1 tab PO DAILY [facility] Last Admin: 07/07/18 09:42 Dose: 1 tab Nitroglycerin (Nitrostat -) 0.4 mg SL Q5M PRN PRN Reason: FOR CHEST PAIN Pantoprazole Sodium (Protonix -) 20 mg PO DAILY [facility] Last Admin: 07/07/18 09:42 Dose: 20 mg Ranolazine (Ranexa -) 500 mg PO BID [facility] Last Admin: 07/07/18 09:42 Dose: 500 mg Fluticasone/Salmeterol (Advair 100mcg/50mcg -) 1 puff IH BID [facility] Last Admin: 07/07/18 09:41 Dose: Not Given Sodium Chloride ([place] Nasal [place] -) 2 spray NS PRN [facility] Spironolactone (Aldactone -) 25 mg PO DAILY [facility] - Objective Vital Signs: Vital Signs Temperature 98.4 F 07/07/18 10:07 Pulse Rate 86 07/07/18 10:07 Respiratory Rate 16 07/07/18 10:07 Blood Pressure 133/78 07/07/18 10:07 O2 Sat by Pulse Oximetry (%) 96 07/07/18 07:21 Constitutional: Yes: Well Nourished, Calm Eyes: Yes: WNL HENT: Yes: WNL Neck: Yes: WNL Cardiovascular: Yes: Regular Rate and Rhythm, S1, S2 Respiratory: Yes: Rales (BIBASILAR RALES) Gastrointestinal: Yes: Normal Bowel Sounds, Soft Extremities: Yes: WNL Edema: Yes Labs: CBC, BMP 07/07/18 06:30 07/07/18 06:30 - ....Imaging Chest X-ray: Report Reviewed, Image Reviewed Problem List - Problems (1) Acute exacerbation of congestive heart failure Code(s): I50.9 - HEART FAILURE, UNSPECIFIED Qualifiers: Heart failure type: diastolic Qualified Code(s): I50.33 - Acute on chronic diastolic (congestive) heart failure (2) Cor pulmonale, chronic Code(s): I27.81 - COR PULMONALE (CHRONIC) (3) S/P CABG (coronary artery bypass graft) Code(s): Z95.1 - PRESENCE OF AORTOCORONARY BYPASS GRAFT (4) Acute on chronic respiratory failure with hypoxia and hypercapnia Code(s): J96.21 - ACUTE AND CHRONIC RESPIRATORY FAILURE WITH HYPOXIA; J96.22 - ACUTE AND CHRONIC RESPIRATORY FAILURE WITH HYPERCAPNIA (5) CAD (coronary artery disease) Code(s): I25.10 - ATHSCL HEART DISEASE OF [place] CORONARY ARTERY W/O ANG PCTRS Qualifiers: Coronary Disease-Associated Artery/Lesion type: [place] artery [place] vs. transplanted heart: [place] heart Associated angina: without angina Qualified Code(s): I25.10 - Atherosclerotic heart disease of [place] coronary artery without angina pectoris (6) COPD (chronic obstructive pulmonary disease) Code(s): J44.9 - CHRONIC OBSTRUCTIVE PULMONARY DISEASE, UNSPECIFIED Qualifiers: COPD type: unspecified COPD Qualified Code(s): J44.9 - Chronic obstructive pulmonary disease, unspecified (7) HTN (hypertension) Code(s): I10 - ESSENTIAL (PRIMARY) HYPERTENSION Qualifiers: Hypertension type: essential hypertension Qualified Code(s): I10 - Essential (primary) hypertension (8) Low back pain Code(s): M54.5 - LOW BACK PAIN (9) HIV Code(s): Z21 - ASYMPTOMATIC HUMAN IMMUNODEFICIENCY VIRUS INFECTION STATUS Assessment/Plan ASSESSMENT AND PLAN: Acute on Chronic Hypercapneic Respiratory Failure Right Heart Failure/Volume Overload Acute on Chronic Diastolic Heart Failure COPD CAD s/p CABG HTN PAD HIV Hep C - lasix - monitor urine output, creatinine - daily weights - continue medrol 40mg - inhaled bronchodilators - BiPAP as needed - outpt PFTs and PSG - DVT prophylaxis DR BARRERA
--- NOTE | 2018-07-07 10:50 | PN ---
Teaching Attending Note Name of Resident: Deena Burdick ATTENDING PHYSICIAN STATEMENT I saw and evaluated the patient. I reviewed the resident's note and discussed the case with the resident. I agree with the resident's findings and plan as documented. SUBJECTIVE: Much improvement in shortness of breath on 2L via NC. No fever/ chills/sputum. OBJECTIVE: Afebrile, Hemodynamically Stable Last Vital Signs Temp Pulse Resp BP Pulse Ox 98.4 F 86 16 133/78 96 07/07/18 10:07 07/07/18 10:07 07/07/18 10:07 07/07/18 10:07 07/07/18 07:21 HEENT - Atraumatic, Normocephalic. Heart - S1, S2, soft SM Lungs - good air entry, basal crackles improved. Abdomen - soft, non-tender. Bowel Sounds normal. Extremities - bilateral LE edema improving. No calf tenderness. Laboratory Results - last 24 hr 07/07/18 07/07/18 07/07/18 06:30 06:30 06:30 WBC 9.8 RBC 3.53 L Hgb 11.6 Hct 34.7 MCV 98.4 H MCH 32.9 MCHC 33.4 RDW 14.8 Plt Count 268 MPV 7.5 Sodium 141 Potassium 3.8 Chloride 96 L Carbon Dioxide 42 H Anion Gap 2 L BUN 9 Creatinine 0.7 Creat Clearance w eGFR > 60 Random Glucose 73 L Calcium 8.5 Phosphorus 3.6 Magnesium 1.4 L Total Bilirubin 0.3 AST 15 ALT 12 L Alkaline Phosphatase 50 Total Protein 5.7 L Albumin 2.7 L Vitamin B12 841 Serum Folate 20 H Current Medications Generic Name Dose Route Start Last Admin Trade Name Freq PRN Reason Stop Dose Admin Abacavir/Dolutegravir/Lamivudine 1 each 07/07/18 10:07/07/18 09:42 Triumeq (Non-Formulary) PO 1 each DAILY [facility] Administration Acetaminophen 650 mg 07/06/18 21:30 Tylenol - PO Q6H PRN PAIN LEVEL 6-10 Albuterol Sulfate 1 amp 07/06/18 14:50 Ventolin 0.083% Nebulizer Soln - NEB Q4H PRN SHORT OF BREATH/WHEEZING Aspirin 81 mg 07/07/18 10:00 07/07/18 09:42 Ecotrin - PO 81 mg DAILY [facility] Administration Atorvastatin Calcium 10 mg 07/07/18 22:00 Lipitor - PO HS [facility] Benzocaine/Menthol 1 each 07/07/18 07:46 Cepacol Lozenge - MM PRN PRN SORE THROAT Carvedilol 12.5 mg 07/06/18 22:00 07/07/18 09:42 Coreg - PO 12.5 mg BID [facility] Administration Clopidogrel Bisulfate 75 mg 07/07/18 10:00 07/07/18 09:42 Plavix - PO 75 mg DAILY [facility] Administration Diphenhydramine HCl 50 mg 07/06/18 22:00 07/06/18 22:12 Benadryl - PO 50 mg HS [facility] Administration Enoxaparin Sodium 40 mg 07/07/18 10:00 07/07/18 09:42 Lovenox - SQ 40 mg DAILY [facility] Administration Ergocalciferol 50,000 unit 07/06/18 15:15 07/06/18 19:24 Drisdol - PO Not Given We@1000 [facility] Escitalopram Oxalate 10 mg 07/07/18 10:00 07/07/18 09:42 Lexapro - PO 10 mg DAILY [facility] Administration Ferrous Sulfate 325 mg 07/06/18 22:00 07/07/18 09:42 Feosol - PO 325 mg BID [facility] Administration Furosemide 40 mg 07/07/18 10:00 07/07/18 09:42 Lasix Injection - IVPUSH 40 mg DAILY [facility] Administration Gabapentin 800 mg 07/06/18 15:15 07/07/18 05:20 Neurontin - PO 800 mg TID [facility] Administration Losartan Potassium 50 mg 07/06/18 19:00 07/07/18 09:42 Cozaar - PO 50 mg BID [facility] Administration Methylprednisolone Sodium Succinate 40 mg 07/07/18 10:00 07/07/18 09:42 Solu-Medrol - IVPUSH 40 mg DAILY [facility] Administration Morphine Sulfate 30 mg 07/06/18 22:00 07/07/18 05:20 Ms Contin - PO 30 mg TID [facility] Administration Multivitamins/Minerals/Vitamin C 1 tab 07/07/18 10:00 07/07/18 09:42 Tab-A-Vit - PO 1 tab DAILY [facility] Administration Nitroglycerin 0.4 mg 07/06/18 21:30 Nitrostat - SL Q5M PRN FOR CHEST PAIN Pantoprazole Sodium 20 mg 07/07/18 10:00 07/07/18 09:42 Protonix - PO 20 mg DAILY [facility] Administration Ranolazine 500 mg 07/06/18 22:00 07/07/18 09:42 Ranexa - PO 500 mg BID [facility] Administration Fluticasone/Salmeterol 1 puff 07/06/18 22:00 07/07/18 09:41 Advair 100mcg/50mcg - IH Not Given BID [facility] Sodium Chloride 2 spray 07/06/18 15:00 [place] Nasal [place] - NS PRN [facility] Spironolactone 25 mg 07/07/18 10:30 Aldactone - PO DAILY [facility] ASSESSMENT AND PLAN: 67 year old female with history of CAD s/p CABG 2009, HIV, Hepatitis C, COPD, PAD s/p bilateral LE stents, HTN, Chronic Diastolic CHF, referred to ED by Dr. Blake's office with increasing SOB and weight gain of 20 pounds in 1-2 months. 1. Acute on Chronic Hypoxic and Hypercapneic Respiratory Failure secondary to Acute on Chronic Diastolic/R sided HF decompensation pH 7.3/pCO2 73.6, pO2 44.1 on admission, improved with respiratory support and diuresis - repeat pH 7.41/61.4/66.4. BNP 6676 CXR - R sided effusion, Cardiomegaly Echo 07/06 - Moderate LVH, RV dilatation (severe), Severe TR, RVSP > 60mmHg, LV systolic function normal, paradoxical septal motion is consistent with RV volume overload Respiratory status improved with IV Lasix 40mg daily. Cardiology evalauted - continue IV Lasix, Spironolactone added. Monitor I/Os, Daily weights. Supplemental O2. 2. COPD - No evidence of exacerbation. On empiric Steroids. DuoNebs. Advair. For outpatient PFTs and PSG. 3. HTN - Continue Coreg, Losartan. Spironolactone was substituted for hydralazine, which was discontinued by cardiology. 4. HIV - Continue HAART, follows with Dr. Blake 5. PAD s/p blateral LE stents - Continue Aspirin, Plavix, Statin 6. Depression - continue Lexapro 7. CAD s/p CABG - Continue Aspirin, Plavix, BB, MICHAEL-I, Statin, Ranexa. 8. Hepatitis C s/p Treatment - LFTs normal. 9. Hypomagnesemia/Hypokalemia - repleted. 10. Macrocytic Anemia, mild, MCV 98 - B12 841/Folate 20 (wnl) - for further out- patient work-up/follow-up. 11. Hypomagnesemia, will replete. DVT Px - Lovenox SQ
[2018-07-07] MEDS ORDERED: MAGNESIUM SULF 50% (8.12 MEQ/2 ML-1 GM VIAL) IVPB ONE (10:55)
[2018-07-07] MEDS: SPIRONOLACTONE 25 MG TABLET (FP) PO SCH (11:47)
[2018-07-07] MEDS: diphenhydrAMINE HCL 25 MG CAPSULE (FP) PO SCH (21:32)
[2018-07-07] MEDS ORDERED: ATORVASTATIN CA 10 MG TABLET (FP) PO SCH (22:00)
[2018-07-08] MEDS: GABAPENTIN 400 MG CAPSULE (FP) PO SCH ×2 (05:21→13:23)
[2018-07-08] MEDS: morphine SO4 SUSTAINED ACTING 30 MG TABLET.SA PO SCH ×2 (05:21→13:24)
[2018-07-08 07:03] LABS: MCH 32.9 pg (25.7-33.7); MCHC 33.3 g/dl (32.0-36.0); MEAN CELL VOLUME 98.7 fl (80-96); MEAN PLT VOLUME 7.4 fl (7.5-11.1); PLATELET COUNT 272 K/MM3 (134-434); RBC 3.34 M/mm3 (3.60-5.2); RDW 14.8 % (11.6-15.6); WHITE BLOOD COUNT 11.1 K/mm3 (4.0-10.0)
[2018-07-08 07:04] LABS: ALK PHOS 52 U/L (45-117); ANION GAP 2 MMOL/L (8-16); BILIRUBIN,TOTAL 0.2 mg/dL (0.2-1); BLOOD UREA NITROGEN 11 mg/dL (7-18); CALCIUM 8.2 mg/dL (8.5-10.1); CHLORIDE 97 mmol/L (98-107); CO2 41 mmol/L (21-32); CREATININE 0.8 mg/dL (0.55-1.3); GLUCOSE,RANDOM 83 mg/dL (74-106); MAGNESIUM 1.8 mg/dL (1.8-2.4); PHOSPHOROUS 3.6 mg/dL (2.5-4.9); POTASSIUM 4.6 mmol/L (3.5-5.1); SGOT/AST 16 U/L (15-37); SGPT/ALT 10 U/L (13-61); SODIUM 140 mmol/L (136-145); TOT PROT 6.2 g/dl (6.4-8.2)
[2018-07-08] MEDS ORDERED: diphenhydrAMINE HCL 25 MG CAPSULE (FP) PO PRN (07:49)
[2018-07-08] MEDS ORDERED: CALCIUM GLUCONATE 10% - 1,000 MG/10 ML VIAL IVPB ONE (08:37)
[2018-07-08] MEDS: ENOXAPARIN NA (PORCINE) 40 MG/0.4 ML DISP.SYRIN SQ SCH (09:52)
[2018-07-08] MEDS: RANOLAZINE E.R. 500 MG TABLET (FP) PO SCH (09:53)
[2018-07-08] MEDS: CLOPIDOGREL BISULFATE 75 MG TABLET (FP) PO SCH (09:53)
[2018-07-08] MEDS: FERROUS SO4 325 MG TABLET (FP) PO SCH (09:53)
[2018-07-08] MEDS: PANTOPRAZOLE 20 MG TABLET (FP) PO SCH (09:53)
[2018-07-08] MEDS: CARVEDILOL 12.5 MG TABLET (FP) PO SCH (09:53)
[2018-07-08] MEDS: ASPIRIN COATED 81 MG TABLET.EC PO SCH (09:53)
[2018-07-08] MEDS: MULTIVITAMINS (DAILY MVI) TABLET (FP) PO SCH (09:53)
[2018-07-08] MEDS: methylPREDNISolone NA SUCC 40 MG/1 ML VIAL IVPUSH SCH (09:53)
[2018-07-08] MEDS: LOSARTAN POTASSIUM 25 MG TABLET PO SCH (09:53)
[2018-07-08] MEDS: ESCITALOPRAM OXALATE 10 MG TABLET (FP) PO SCH (09:53)
[2018-07-08] MEDS: FUROSEMIDE 40 MG/4 ML INJECTABLE VIAL IVPUSH SCH (09:53)
[2018-07-08] MEDS: SPIRONOLACTONE 25 MG TABLET (FP) PO SCH (09:53)
[2018-07-08] MEDS: ABACAVIR/DOLUTEGRAVIR/LAMIVUDI (TRIUMEQ) TABLET -NF PO SCH (09:55)
[2018-07-08] MEDS: FLUTICASONE/SALMETEROL 100 MCG/50 MCG DISKUS IH SCH (10:09)
--- NOTE | 2018-07-08 10:30 | PN ---
Progress Note, Physician History of Present Illness: pulmonary alert,comfortable,-resp distress. - Current Medication List Current Medications: Active Medications Abacavir/Dolutegravir/Lamivudine (Triumeq (Non-Formulary)) 1 each PO DAILY [facility] Last Admin: 07/08/18 09:55 Dose: 1 each Acetaminophen (Tylenol -) 650 mg PO Q6H PRN PRN Reason: PAIN LEVEL 6-10 Albuterol Sulfate (Ventolin 0.083% Nebulizer Soln -) 1 amp NEB Q4H PRN PRN Reason: SHORT OF BREATH/WHEEZING Aspirin (Ecotrin -) 81 mg PO DAILY [facility] Last Admin: 07/08/18 09:53 Dose: 81 mg Atorvastatin Calcium (Lipitor -) 10 mg PO HS [facility] Last Admin: 07/07/18 21:33 Dose: 10 mg Benzocaine/Menthol (Cepacol Lozenge -) 1 each MM PRN PRN PRN Reason: SORE THROAT Carvedilol (Coreg -) 12.5 mg PO BID [facility] Last Admin: 07/08/18 09:53 Dose: 12.5 mg Clopidogrel Bisulfate (Plavix -) 75 mg PO DAILY [facility] Last Admin: 07/08/18 09:53 Dose: 75 mg Diphenhydramine HCl (Benadryl -) 50 mg PO HS PRN PRN Reason: INSOMNIA Enoxaparin Sodium (Lovenox -) 40 mg SQ DAILY [facility] Last Admin: 07/08/18 09:52 Dose: 40 mg Ergocalciferol (Drisdol -) 50,000 unit PO We@1000 [facility] Last Admin: 07/06/18 19:24 Dose: Not Given Escitalopram Oxalate (Lexapro -) 10 mg PO DAILY [facility] Last Admin: 07/08/18 09:53 Dose: 10 mg Ferrous Sulfate (Feosol -) 325 mg PO BID [facility] Last Admin: 07/08/18 09:53 Dose: 325 mg Furosemide (Lasix Injection -) 40 mg IVPUSH DAILY [facility] Last Admin: 07/08/18 09:53 Dose: 40 mg Gabapentin (Neurontin -) 800 mg PO TID [facility] Last Admin: 07/08/18 05:21 Dose: 800 mg Losartan Potassium (Cozaar -) 50 mg PO BID [facility] Last Admin: 07/08/18 09:53 Dose: 50 mg Methylprednisolone Sodium Succinate (Solu-Medrol -) 40 mg IVPUSH DAILY [facility] Last Admin: 07/08/18 09:53 Dose: 40 mg Morphine Sulfate (Ms Contin -) 30 mg PO TID [facility] Last Admin: 07/08/18 05:21 Dose: 30 mg Multivitamins/Minerals/Vitamin C (Tab-A-Vit -) 1 tab PO DAILY [facility] Last Admin: 07/08/18 09:53 Dose: 1 tab Nitroglycerin (Nitrostat -) 0.4 mg SL Q5M PRN PRN Reason: FOR CHEST PAIN Pantoprazole Sodium (Protonix -) 20 mg PO DAILY [facility] Last Admin: 07/08/18 09:53 Dose: 20 mg Ranolazine (Ranexa -) 500 mg PO BID [facility] Last Admin: 07/08/18 09:53 Dose: 500 mg Fluticasone/Salmeterol (Advair 100mcg/50mcg -) 1 puff IH BID [facility] Last Admin: 07/08/18 10:09 Dose: 1 puff Sodium Chloride ([place] Nasal [place] -) 2 spray NS PRN [facility] Spironolactone (Aldactone -) 25 mg PO DAILY [facility] Last Admin: 07/08/18 09:53 Dose: 25 mg - Objective Vital Signs: Vital Signs Temperature 98.8 F 07/08/18 08:00 Pulse Rate 92 H 07/08/18 08:00 Respiratory Rate 18 07/08/18 08:00 Blood Pressure 149/90 07/08/18 08:00 O2 Sat by Pulse Oximetry (%) 98 07/08/18 07:23 Constitutional: Yes: Well Nourished, Calm Eyes: Yes: WNL HENT: Yes: WNL Neck: Yes: WNL Cardiovascular: Yes: Regular Rate and Rhythm, S1, S2 Respiratory: Yes: Wheezes (few scattered lucia wheezes) Gastrointestinal: Yes: Normal Bowel Sounds, Soft Extremities: Yes: WNL Edema: No Peripheral Pulses WNL: No Labs: CBC, BMP 07/08/18 06:00 07/08/18 06:00 Problem List - Problems (1) Acute exacerbation of congestive heart failure Code(s): I50.9 - HEART FAILURE, UNSPECIFIED Qualifiers: Heart failure type: diastolic Qualified Code(s): I50.33 - Acute on chronic diastolic (congestive) heart failure (2) Cor pulmonale, chronic Code(s): I27.81 - COR PULMONALE (CHRONIC) (3) S/P CABG (coronary artery bypass graft) Code(s): Z95.1 - PRESENCE OF AORTOCORONARY BYPASS GRAFT (4) Acute on chronic respiratory failure with hypoxia and hypercapnia Code(s): J96.21 - ACUTE AND CHRONIC RESPIRATORY FAILURE WITH HYPOXIA; J96.22 - ACUTE AND CHRONIC RESPIRATORY FAILURE WITH HYPERCAPNIA (5) CAD (coronary artery disease) Code(s): I25.10 - ATHSCL HEART DISEASE OF [place] CORONARY ARTERY W/O ANG PCTRS Qualifiers: Coronary Disease-Associated Artery/Lesion type: [place] artery [place] vs. transplanted heart: [place] heart Associated angina: without angina Qualified Code(s): I25.10 - Atherosclerotic heart disease of [place] coronary artery without angina pectoris (6) COPD (chronic obstructive pulmonary disease) Code(s): J44.9 - CHRONIC OBSTRUCTIVE PULMONARY DISEASE, UNSPECIFIED Qualifiers: COPD type: unspecified COPD Qualified Code(s): J44.9 - Chronic obstructive pulmonary disease, unspecified (7) HTN (hypertension) Code(s): I10 - ESSENTIAL (PRIMARY) HYPERTENSION Qualifiers: Hypertension type: essential hypertension Qualified Code(s): I10 - Essential (primary) hypertension (8) Low back pain Code(s): M54.5 - LOW BACK PAIN (9) HIV Code(s): Z21 - ASYMPTOMATIC HUMAN IMMUNODEFICIENCY VIRUS INFECTION STATUS Assessment/Plan ASSESSMENT AND PLAN: Acute on Chronic Hypercapneic Respiratory Failure Right Heart Failure/Volume Overload Acute on Chronic Diastolic Heart Failure COPD CAD s/p CABG HTN PAD HIV Hep C - lasix - monitor urine output, creatinine - daily weights - Prednisone 50mg daily - inhaled bronchodilators - outpt PFTs and PSG - DVT prophylaxis - Short term rehab DR BARRERA
--- NOTE | 2018-07-08 11:14 | PN ---
Teaching Attending Note Name of Resident: Deena Burdick ATTENDING PHYSICIAN STATEMENT I saw and evaluated the patient. I reviewed the resident's note and discussed the case with the resident. I agree with the resident's findings and plan as documented. SUBJECTIVE: Shortness of breath resolved, Comfortable on 2L via NC. No fever/ chills/sputum. OBJECTIVE: Afebrile, Hemodynamically Stable Last Vital Signs Temp Pulse Resp BP Pulse Ox 98.8 F 90 17 139/84 98 07/08/18 08:00 07/08/18 10:07/08/18 10:00 07/08/18 10:07/08/18 07:23 HEENT - Atraumatic, Normocephalic. Heart - S1, S2, soft SM Lungs - good air entry, few basal crackles Abdomen - soft, non-tender. Bowel Sounds normal. Extremities - bilateral LE edema improved. No calf tenderness. Laboratory Results - last 24 hr 07/08/18 07/08/18 06:00 06:00 WBC 11.1 H RBC 3.34 L Hgb 11.0 Hct 33.0 MCV 98.7 H MCH 32.9 MCHC 33.3 RDW 14.8 Plt Count 272 MPV 7.4 L Sodium 140 Potassium 4.6 Chloride 97 L Carbon Dioxide 41 H Anion Gap 2 L BUN 11 Creatinine 0.8 Creat Clearance w eGFR > 60 Random Glucose 83 Calcium 8.2 L Phosphorus 3.6 Magnesium 1.8 Total Bilirubin 0.2 AST 16 ALT 10 L Alkaline Phosphatase 52 Total Protein 6.2 L Albumin 3.0 L Current Medications Generic Name Dose Route Start Last Admin Trade Name Freq PRN Reason Stop Dose Admin Abacavir/Dolutegravir/Lamivudine 1 each 07/07/18 10:00 07/08/18 09:55 Triumeq (Non-Formulary) PO 1 each DAILY [facility] Administration Acetaminophen 650 mg 07/06/18 21:30 Tylenol - PO Q6H PRN PAIN LEVEL 6-10 Albuterol Sulfate 1 amp 07/06/18 14:50 Ventolin 0.083% Nebulizer Soln - NEB Q4H PRN SHORT OF BREATH/WHEEZING Aspirin 81 mg 07/07/18 10:00 07/08/18 09:53 Ecotrin - PO 81 mg DAILY [facility] Administration Atorvastatin Calcium 10 mg 07/07/18 22:00 07/07/18 21:33 Lipitor - PO 10 mg HS [facility] Administration Benzocaine/Menthol 1 each 07/07/18 07:46 Cepacol Lozenge - MM PRN PRN SORE THROAT Carvedilol 12.5 mg 07/06/18 22:00 07/08/18 09:53 Coreg - PO 12.5 mg BID [facility] Administration Clopidogrel Bisulfate 75 mg 07/07/18 10:00 07/08/18 09:53 Plavix - PO 75 mg DAILY [facility] Administration Diphenhydramine HCl 50 mg 07/08/18 07:49 Benadryl - PO HS PRN INSOMNIA Enoxaparin Sodium 40 mg 07/07/18 10:00 07/08/18 09:52 Lovenox - SQ 40 mg DAILY [facility] Administration Ergocalciferol 50,000 unit 07/06/18 15:15 07/06/18 19:24 Drisdol - PO Not Given We@1000 [facility] Escitalopram Oxalate 10 mg 07/07/18 10:00 07/08/18 09:53 Lexapro - PO 10 mg DAILY [facility] Administration Ferrous Sulfate 325 mg 07/06/18 22:00 07/08/18 09:53 Feosol - PO 325 mg BID [facility] Administration Furosemide 40 mg 07/09/18 10:00 Lasix - PO DAILY [facility] Gabapentin 800 mg 07/06/18 15:15 07/08/18 05:21 Neurontin - PO 800 mg TID [facility] Administration Losartan Potassium 50 mg 07/06/18 19:00 07/08/18 09:53 Cozaar - PO 50 mg BID [facility] Administration Methylprednisolone Sodium Succinate 40 mg 07/07/18 10:00 07/08/18 09:53 Solu-Medrol - IVPUSH 40 mg DAILY [facility] Administration Morphine Sulfate 30 mg 07/06/18 22:00 07/08/18 05:21 Ms Contin - PO 30 mg TID [facility] Administration Multivitamins/Minerals/Vitamin C 1 tab 07/07/18 10:00 07/08/18 09:53 Tab-A-Vit - PO 1 tab DAILY [facility] Administration Nitroglycerin 0.4 mg 07/06/18 21:30 Nitrostat - SL Q5M PRN FOR CHEST PAIN Pantoprazole Sodium 20 mg 07/07/18 10:00 07/08/18 09:53 Protonix - PO 20 mg DAILY [facility] Administration Ranolazine 500 mg 07/06/18 22:00 07/08/18 09:53 Ranexa - PO 500 mg BID [facility] Administration Fluticasone/Salmeterol 1 puff 07/06/18 22:00 07/08/18 10:09 Advair 100mcg/50mcg - IH 1 puff BID [facility] Administration Sodium Chloride 2 spray 07/06/18 15:00 [place] Nasal [place] - NS PRN [facility] Spironolactone 25 mg 07/07/18 10:30 07/08/18 09:53 Aldactone - PO 25 mg DAILY [facility] Administration ASSESSMENT AND PLAN: 67 year old female with history of CAD s/p CABG 2009, HIV, Hepatitis C, COPD, PAD s/p bilateral LE stents, HTN, Chronic Diastolic CHF, referred to ED by Dr. Blake's office with increasing SOB and weight gain of 20 pounds in 1-2 months. 1. Acute on Chronic Hypoxic and Hypercapneic Respiratory Failure secondary to Acute on Chronic Diastolic/R sided HF decompensation pH 7.3/pCO2 73.6, pO2 44.1 on admission, improved with respiratory support and diuresis - repeat pH 7.41/61.4/66.4. BNP 6676 CXR - R sided effusion, Cardiomegaly Echo 07/06 - Moderate LVH, RV dilatation (severe), Severe TR, RVSP > 60mmHg, LV systolic function normal, paradoxical septal motion is consistent with RV volume overload Respiratory status improved with IV Lasix 40mg daily - will discharge on Lasix 40mg daily with Cardio and Pulm follow up with repeat labs in 1 week. Cardiology evaluated - added Spironolactone added. Counseled regarding improtance of compliance with Home O2 and daily weight measurements and reporting of any weight gain > 2-3lbs in 1 week. 2. COPD - No evidence of exacerbation. On empiric Steroids - will stop on discharge. Continue Advair. For outpatient PFTs and PSG. 3. HTN - Continue Coreg, Losartan. Spironolactone was substituted for hydralazine, which was discontinued by cardiology. 4. HIV - Continue HAART, follows with Dr. Blake 5. PAD s/p blateral LE stents - Continue Aspirin, Plavix, Statin 6. Depression - continue Lexapro 7. CAD s/p CABG - Continue Aspirin, Plavix, BB, MICHAEL-I, Statin, Ranexa. 8. Hepatitis C s/p Treatment - LFTs normal. 9. Hypomagnesemia/Hypokalemia - repleted. 10. Macrocytic Anemia, mild, MCV 98 - B12 841/Folate 20 (wnl) - for further out- patient work-up/follow-up. 11. Hypomagnesemia, repleted Medically Stable for discharge. Patient considering SNF for ongoing Rehab.
--- NOTE | 2018-07-08 13:03 | PN ---
Progress Note, Physician History of Present Illness: Shortness of breath with exertion, decreased exercise capacity, abd distension, orthopnea, LE edema resolved with diuresis and 10 lbs weight loss. She denies palpitations, near or true syncope, chest tightness. - Current Medication List Current Medications: Active Medications Abacavir/Dolutegravir/Lamivudine (Triumeq (Non-Formulary)) 1 each PO DAILY [facility] Last Admin: 07/08/18 09:55 Dose: 1 each Acetaminophen (Tylenol -) 650 mg PO Q6H PRN PRN Reason: PAIN LEVEL 6-10 Albuterol Sulfate (Ventolin 0.083% Nebulizer Soln -) 1 amp NEB Q4H PRN PRN Reason: SHORT OF BREATH/WHEEZING Aspirin (Ecotrin -) 81 mg PO DAILY [facility] Last Admin: 07/08/18 09:53 Dose: 81 mg Atorvastatin Calcium (Lipitor -) 10 mg PO HS [facility] Last Admin: 07/07/18 21:33 Dose: 10 mg Benzocaine/Menthol (Cepacol Lozenge -) 1 each MM PRN PRN PRN Reason: SORE THROAT Carvedilol (Coreg -) 12.5 mg PO BID [facility] Last Admin: 07/08/18 09:53 Dose: 12.5 mg Clopidogrel Bisulfate (Plavix -) 75 mg PO DAILY [facility] Last Admin: 07/08/18 09:53 Dose: 75 mg Diphenhydramine HCl (Benadryl -) 50 mg PO HS PRN PRN Reason: INSOMNIA Enoxaparin Sodium (Lovenox -) 40 mg SQ DAILY [facility] Last Admin: 07/08/18 09:52 Dose: 40 mg Ergocalciferol (Drisdol -) 50,000 unit PO We@1000 [facility] Last Admin: 07/06/18 19:24 Dose: Not Given Escitalopram Oxalate (Lexapro -) 10 mg PO DAILY [facility] Last Admin: 07/08/18 09:53 Dose: 10 mg Ferrous Sulfate (Feosol -) 325 mg PO BID [facility] Last Admin: 07/08/18 09:53 Dose: 325 mg Furosemide (Lasix -) 40 mg PO DAILY [facility] Gabapentin (Neurontin -) 800 mg PO TID [facility] Last Admin: 07/08/18 05:21 Dose: 800 mg Losartan Potassium (Cozaar -) 50 mg PO BID [facility] Last Admin: 07/08/18 09:53 Dose: 50 mg Morphine Sulfate (Ms Contin -) 30 mg PO TID [facility] Last Admin: 07/08/18 05:21 Dose: 30 mg Multivitamins/Minerals/Vitamin C (Tab-A-Vit -) 1 tab PO DAILY [facility] Last Admin: 07/08/18 09:53 Dose: 1 tab Nitroglycerin (Nitrostat -) 0.4 mg SL Q5M PRN PRN Reason: FOR CHEST PAIN Pantoprazole Sodium (Protonix -) 20 mg PO DAILY [facility] Last Admin: 07/08/18 09:53 Dose: 20 mg Ranolazine (Ranexa -) 500 mg PO BID [facility] Last Admin: 07/08/18 09:53 Dose: 500 mg Fluticasone/Salmeterol (Advair 100mcg/50mcg -) 1 puff IH BID [facility] Last Admin: 07/08/18 10:09 Dose: 1 puff Sodium Chloride ([place] -) 2 spray NS PRN [facility] Spironolactone (Aldactone -) 25 mg PO DAILY [facility] Last Admin: 07/08/18 09:53 Dose: 25 mg - Objective Vital Signs: Vital Signs Temperature 98.8 F 07/08/18 08:00 Pulse Rate 90 07/08/18 10:00 Respiratory Rate 17 07/08/18 10:00 Blood Pressure 139/84 07/08/18 10:00 O2 Sat by Pulse Oximetry (%) 98 07/08/18 07:23 Constitutional: Yes: No Distress, Calm, Thin Neck: Yes: Supple Cardiovascular: Yes: Regular Rate and Rhythm, Murmur (2/6 SM) Respiratory: Yes: Regular, Diminished Gastrointestinal: Yes: Normal Bowel Sounds, Soft Edema: No Labs: CBC, BMP 07/08/18 06:00 07/08/18 06:00 Problem List - Problems (1) Cor pulmonale, chronic Code(s): I27.81 - COR PULMONALE (CHRONIC) (2) Acute exacerbation of congestive heart failure Code(s): I50.9 - HEART FAILURE, UNSPECIFIED Qualifiers: Heart failure type: diastolic Qualified Code(s): I50.33 - Acute on chronic diastolic (congestive) heart failure (3) Acute on chronic respiratory failure with hypoxia and hypercapnia Code(s): J96.21 - ACUTE AND CHRONIC RESPIRATORY FAILURE WITH HYPOXIA; J96.22 - ACUTE AND CHRONIC RESPIRATORY FAILURE WITH HYPERCAPNIA (4) COPD (chronic obstructive pulmonary disease) Code(s): J44.9 - CHRONIC OBSTRUCTIVE PULMONARY DISEASE, UNSPECIFIED Qualifiers: COPD type: unspecified COPD Qualified Code(s): J44.9 - Chronic obstructive pulmonary disease, unspecified (5) HTN (hypertension) Code(s): I10 - ESSENTIAL (PRIMARY) HYPERTENSION Qualifiers: Hypertension type: essential hypertension Qualified Code(s): I10 - Essential (primary) hypertension (6) PVD (peripheral vascular disease) Code(s): I73.9 - PERIPHERAL VASCULAR DISEASE, UNSPECIFIED (7) S/P CABG (coronary artery bypass graft) Code(s): Z95.1 - PRESENCE OF AORTOCORONARY BYPASS GRAFT (8) Hyperlipidemia Code(s): E78.5 - HYPERLIPIDEMIA, UNSPECIFIED (9) CAD (coronary artery disease) Code(s): I25.10 - ATHSCL HEART DISEASE OF [place] CORONARY ARTERY W/O ANG PCTRS Qualifiers: Coronary Disease-Associated Artery/Lesion type: [place] artery [place] vs. transplanted heart: [place] heart Associated angina: without angina Qualified Code(s): I25.10 - Atherosclerotic heart disease of [place] coronary artery without angina pectoris Assessment/Plan Echo: 07/06/2018 Mod cLVH with preserved LV fxn, mod-severe RITIKA, severe TR, RVSP >60, RV volume overload with mod decreased RV fxn 1. Acute on chronic hypercapneic/hypoxemic respiratory failure, related to 2. Right Heart Failure/Volume Overload 3. Acute on Chronic Diastolic Heart Failure 4. Chronic obstructive pulmonary disease 5. CAD s/p CABG, angina pectoris 6. LV diastolic dysfunction with class 0 NYHA classification LV failure 7. HTN 8. Hypercholesterolemia 9. HIV, Hep C 10. Smoker 11. PAD s/p SFA stent PLAN: 1. Resume oral diuresis with Lasix 40 qd and added Aldactone 25 qd with monitor diuretic response, renal fxn and electrolytes 2. Continue ASA 81 qd, carvedilol 12.5 bid, Plavix 75 qd, losartan 50 bid, Lipitor 10 qd, Ranexa 500 bid 3. Oral steroid taper, BD, O2 to keep SpO2 88-92%, off antibiotics as per the primary team 4. Bipap as needed 5. Smoking cessation discussed, outpt PFTs and PSG and f/u, needs home O2 6. DVT prophylaxis, HAART
--- NOTE | 2018-07-08 15:27 | DS ---
Physical Exam: SUBJECTIVE: Patient seen this morning and reports she is feeling better. No acute events overnight and no complaints. OBJECTIVE: Vital Signs Temperature 98.1 F 07/08/18 18:00 Pulse Rate 90 07/08/18 18:00 Respiratory Rate 18 07/08/18 18:00 Blood Pressure 158/98 07/08/18 18:00 O2 Sat by Pulse Oximetry (%) 98 07/08/18 09:00 PHYSICAL EXAM GENERAL: Awake, alert, and fully oriented, in no acute distress. HEAD: Normal with no signs of trauma. LUNGS: Breath sounds equal, clear to auscultation bilaterally. No rales or wheezing heard, R sub scapular scar HEART: Regular rate and rhythm, normal S1 and S2 without murmur, rub or gallop. ABDOMEN: Soft, nontender, not distended, normoactive bowel sounds, no guarding, no rebound, no masses. MUSCULOSKELETAL: Normal range of motion at all joints. No bony deformities or tenderness. No CVA tenderness. LOWER EXTREMITIES: 1+ pitting edema at calves PSYCHIATRIC: Cooperative. Good eye contact. Appropriate mood and affect. SKIN: Warm, dry, normal turgor, no rashes or lesions noted, normal capillary refill. LABS CBC, BMP 07/08/18 06:00 07/08/18 06:00 HOSPITAL COURSE: Date of Admission:07/05/18 Patient was admitted to the hospital for CHF exacerbation. She was given 80 IV lasix in the ED and put out 5 L. Patient was given 40 of lasix each day and symptoms resolved. Patient was evaluated by cardiology and will start aldactone for management of her CHF. Patient to go home on lasix. Patient on 2L oxygen at home. Patient unable to walk over 25 feet, sent to rehab. echo: moderate concntric left ventricular hypertrophy, right atrium moderate to severely dialted, severe tricuspid regurg, RV pressure is > 60 mmhg, LV sys fxn normal, RV moderately dilated, septal motion consistent with conduction abnormality Date of Discharge: 07/08/18 Minutes to complete discharge: 38 Discharge Summary Reason For Visit: ACUTE CONGESTIVE HEART FAILURE Current Active Problems Cor pulmonale, chronic (Chronic) Hyperlipidemia (Chronic) S/P CABG (coronary artery bypass graft) (Chronic) Condition: Improved - Instructions Diet, Activity, Other Instructions: You were admitted to the hospital for your congestive heart failure(CHF). We gave you the medication lasix which helped your CHF. You are going to a rehab facility from the hospital to get physical therapy and get stronger on your feet. To continue treatment of your CHF please take: Lasix 40 mg by mouth daily Aldactone 25 mg by mouth daily To continue to monitor your CHF please make an appointment to follow up with Dr. Fitzgerald in one week. While you were here we also treated your COPD. Please continue your home medications for management. Make an appointment with Dr. Harrell in one week to follow up. You should continue all your other home medications as prescribed. Please make an appointment to follow up with your primary care physician within one week. Return to the emergency Department if you have any shortness of breath, nausea vomiting, chest pain, or headache. Referrals: Kingsley Harrell MD [Staff Physician] - Mirtha Blake MD [Primary Care Provider] - William Fitzgerald MD [Staff Physician] - 1 Week Disposition: HOME - Home Medications Comprehensive Discharge Medication List: Ambulatory Orders Gabapentin [Neurontin -] 800 mg PO Q8H 04/04/18 Albuterol 0.083% Nebulizer [place] [Ventolin 0.083% Nebulizer Soln -] 1 amp NEB Q4H PRN #7 amp 04/11/18 Carvedilol [Coreg -] 12.5 mg PO BID #60 tablet 04/11/18 Losartan Potassium [Cozaar -] 50 mg PO BID #30 tablet 04/11/18 Naloxone HCl [Narcan] 4 mg NS ONCE PRN #1 spray 05/24/18 Acetaminophen 2 tab PO DAILY PRN #60 tablet 06/01/18 Ergocalciferol (Vitamin D2) [Vitamin D2] 50,000 unit PO Q7D #4 capsule 06/01/18 Cholecalciferol (Vitamin D3) [Vitamin D3] 2,000 unit PO DAILY 06/03/18 Fosamax 70 mg PO WEEKLY 06/03/18 Sodium Chloride [[place]] 1 - 2 sprays NS PRN #1 spray 06/03/18 Abacavir/Dolutegravir/Lamivudi [Triumeq 600-50-300 mg Tablet] 1 each PO DAILY # 30 tablet 06/08/18 Albuterol Sulfate Inhaler - [Ventolin HFA Inhaler -] 1 - 2 inh PO Q6H PRN #1 inhaler 06/08/18 Aspirin Coated [Ecotrin -] 81 mg PO DAILY #30 tablet.ec 06/08/18 Calcium Carbonate/Vitamin D3 [Calcium 500-Vit D3 200 Caplet] 1 tab PO DAILY #30 tablet 06/08/18 Clopidogrel Bisulfate [Plavix] 75 mg PO DAILY #30 tablet 06/08/18 Diphenhydramine [Benadryl Capsule -] 50 mg PO HS #30 capsule 06/08/18 Escitalopram Oxalate [Lexapro -] 10 mg PO DAILY #30 tablet 06/08/18 Ferrous Sulfate [Feosol] 325 mg PO BID #60 tablet 06/08/18 Fluticasone/Salmeterol [Advair Hfa 230-21 Mcg Inhaler] 2 puff IH BID #1 hfa.aer.[email or web address] 06/08/18 Multivitamin [One-Daily Multi-Vitamin] 1 each PO DAILY #30 tablet 06/08/18 Nicotine [Nicotrol Ns] 1 dose IH DAILY PRN #1 spray 06/08/18 Pantoprazole Sodium [Protonix -] 20 mg PO DAILY #30 tablet.ec 06/08/18 Ranolazine [Ranexa -] 500 mg PO BID #60 tab 06/08/18 Simvastatin 10 mg PO DAILY #30 tablet 06/08/18 hydrALAZINE HCL [Apresoline -] 50 mg PO TID #90 tablet 06/08/18 Morphine *Sr* [MS Contin -] 30 mg PO Q8H #90 tablet.er MDD 3 06/14/18 Furosemide [Lasix -] 40 mg PO DAILY #30 tablet 07/08/18 Spironolactone [Aldactone -] 25 mg PO DAILY #30 tablet 07/08/18 This patient is new to me today: No Emergency Visit: No Critical Care patient: No - Discharge Referral Referred to [facility] No
[2018-07-08] MEDS ORDERED: amLODIPine BESYLATE 10 MG TABLET (FP) PO ONE (18:02)
[2018-07-08 18:13] VITALS: BP 158/98; PULSE 90; TEMP 98.1
[2018-07-09] MEDS ORDERED: FUROSEMIDE 40 MG TABLET (FP) PO SCH (10:00)
== END 2018-07-08 19:38 | disposition home or self-care (01) | DRG 291 ==
LOC: SUPCPDRO 12:36 → JER 12:36 → UNDOADMIN 16:56 → JERBED 16:56 → JICU 23:11 → J4S 07-06 21:17
PROC: 05HB33Z Insertion of Infusion Device into Right Basilic Vein, Percutaneous Approach (ICD-10-PCS; principal; 2018-07-05)
PROC: B54MZZA Ultrasonography of Right Upper Extremity Veins, Guidance (ICD-10-PCS; 2018-07-05)
PROC: 5A09457 Assistance with Respiratory Ventilation, 24-96 Consecutive Hours, Continuous Positive Airway Pressure (ICD-10-PCS; 2018-07-05)
DX: I11.0 Hypertensive heart disease with heart failure (principal); J96.01 Acute respiratory failure with hypoxia; J96.02 Acute respiratory failure with hypercapnia; F11.20 Opioid dependence, uncomplicated; R18.8 Other ascites; I50.33 Acute on chronic diastolic (congestive) heart failure; Z21 Asymptomatic human immunodeficiency virus [HIV] infection status; I27.81 Cor pulmonale (chronic); F14.10 Cocaine abuse, uncomplicated; I36.1 Nonrheumatic tricuspid (valve) insufficiency; K72.90 Hepatic failure, unspecified without coma; Z95.1 Presence of aortocoronary bypass graft; Z86.19 Personal history of other infectious and parasitic diseases; I73.9 Peripheral vascular disease, unspecified; J44.9 Chronic obstructive pulmonary disease, unspecified; K74.60 Unspecified cirrhosis of liver; D63.1 Anemia in chronic kidney disease; Z86.718 Personal history of other venous thrombosis and embolism; E88.09 Other disorders of plasma-protein metabolism, not elsewhere classified; Z87.891 Personal history of nicotine dependence; I27.20 Pulmonary hypertension, unspecified; F41.9 Anxiety disorder, unspecified; F32.9 Major depressive disorder, single episode, unspecified; D50.9 Iron deficiency anemia, unspecified; E83.42 Hypomagnesemia; E87.6 Hypokalemia; D53.9 Nutritional anemia, unspecified; R05 Cough; I25.119 Atherosclerotic heart disease of native coronary artery with unspecified angina pectoris
CPT/HCPCS: 36415; 36600; 71045-TC-FY; 71046-TC-FY; 80053; 82140; 82375; 82550; 82607; 82746; 82803; 83050; 83735; 83880; 84100; 84484; 85025; 85027; 93005; 93010; 93306-TC; 93970-TC; 94010; 94660; 97116-GP; 97161-GP; 99285-25; G0463-25

== ENCOUNTER 2018-08-08 17:08 | Inpatient (IN) | payer OTHER ==
--- NOTE | 2018-08-08 18:27 | PDOC ---
History of Present Illness - General Chief Complaint: Loss of Appetite Stated Complaint: SICK Time Seen by Provider: 08/08/18 18:26 History Source: Patient, Family (Daughters present at bedside.) Exam Limitations: Clinical Condition - History of Present Illness Initial Comments: HPI: 67 y/o female presenting to [facility] ED from [facility] for altered mental status and decreased PO intake for the past two days. Pt unable or unwilling to participate in the interview. Pts daughter was the one who saw the pt at the facility today and requested the transfer to the hospital. Pt was recently discharged from this facility on 08 July 2018 for acute CHF exacerbation. ECHO at that time revealed moderate concentric left ventricular hypertrophy, right atrium moderate to severely dilated, severe tricuspid regurg , RV pressure is > 60 mmhg, LV sys fxn normal, RV moderately dilated, septal motion consistent with conduction abnormality In [facility] Such for physical therapy following hospitalization. PCP: None. In process of establishing care with Dr. Kirk ID: Dr. [facility] Hx: - CHF, tricuspid regurgitation with reduced RV systolic function - HTN - CAD s/p CABG - PVD with stenting to bilateral lower extremities - HIV, last CD4 440 with undetectable viral load on 24 May 2018. On Triumeq - Hep C, s/p treatment Past History - Past Medical History Allergies/Adverse Reactions: Allergies Allergy/AdvReac Type Severity Reaction Status Date / Time aspirin AdvReac Mild GI upset Verified 07/05/18 13:02 Home Medications: Ambulatory Orders Gabapentin [Neurontin -] 800 mg PO Q8H 04/04/18 Albuterol 0.083% Nebulizer Sun [Ventolin 0.083% Nebulizer Soln -] 1 amp NEB Q4H PRN #7 amp 04/11/18 Carvedilol [Coreg -] 12.5 mg PO BID #60 tablet 04/11/18 Losartan Potassium [Cozaar -] 50 mg PO BID #30 tablet 04/11/18 Naloxone HCl [Narcan] 4 mg NS ONCE PRN #1 spray 05/24/18 Acetaminophen 2 tab PO DAILY PRN #60 tablet 06/01/18 Ergocalciferol (Vitamin D2) [Vitamin D2] 50,000 unit PO Q7D #4 capsule 06/01/18 Cholecalciferol (Vitamin D3) [Vitamin D3] 2,000 unit PO DAILY 06/03/18 Fosamax 70 mg PO WEEKLY 06/03/18 Sodium Chloride [Saline Nose [place]] 1 - 2 sprays NS PRN #1 spray 06/03/18 Abacavir/Dolutegravir/Lamivudi [Triumeq 600-50-300 mg Tablet] 1 each PO DAILY # 30 tablet 06/08/18 Albuterol Sulfate Inhaler - [Ventolin HFA Inhaler -] 1 - 2 inh PO Q6H PRN #1 inhaler 06/08/18 Aspirin Coated [Ecotrin -] 81 mg PO DAILY #30 tablet.ec 06/08/18 Calcium Carbonate/Vitamin D3 [Calcium 500-Vit D3 200 Caplet] 1 tab PO DAILY #30 tablet 06/08/18 Clopidogrel Bisulfate [Plavix] 75 mg PO DAILY #30 tablet 06/08/18 Diphenhydramine [Benadryl Capsule -] 50 mg PO HS #30 capsule 06/08/18 Escitalopram Oxalate [Lexapro -] 10 mg PO DAILY #30 tablet 06/08/18 Ferrous Sulfate [Feosol] 325 mg PO BID #60 tablet 06/08/18 Fluticasone/Salmeterol [Advair Hfa 230-21 Mcg Inhaler] 2 puff IH BID #1 hfa.aer.ad 06/08/18 Multivitamin [One-Daily Multi-Vitamin] 1 each PO DAILY #30 tablet 06/08/18 Nicotine [Nicotrol Ns] 1 dose IH DAILY PRN #1 spray 06/08/18 Pantoprazole Sodium [Protonix -] 20 mg PO DAILY #30 tablet.ec 06/08/18 Ranolazine [Ranexa -] 500 mg PO BID #60 tab 06/08/18 Simvastatin 10 mg PO DAILY #30 tablet 06/08/18 hydrALAZINE HCL [Apresoline -] 50 mg PO TID #90 tablet 06/08/18 Morphine *Sr* [MS Contin -] 30 mg PO Q8H #90 tablet.er MDD 3 06/14/18 Furosemide [Lasix -] 40 mg PO DAILY #30 tablet 07/08/18 Spironolactone [Aldactone -] 25 mg PO DAILY #30 tablet 07/08/18 Asthma: Yes Cancer: Yes (history of cervical cancer - cured with RT) Cardiac Disorders: Yes (pvd, cabh 2009) CVA: No COPD: Yes (2lnc home) Dementia: No Diabetes: No GI Disorders: No Disorders: No HTN: Yes Hypercholesterolemia: Yes Liver Disease: No Seizures: No Thyroid Disease: No - Surgical History Appendectomy: No Cardiac Surgery: Yes (CABG x 3 2009) Cholecystectomy: No Orthopedic Surgery: No - Suicide/Smoking/Psychosocial Hx Smoking History: Never smoked Have you smoked in the past 12 months: No Number of Cigarettes Smoked Daily: 5 If you are a former smoker, when did you quit?: May 2018 Information on smoking cessation initiated: No 'Breaking Loose' booklet given: 06/01/12 Hx Alcohol Use: No Drug/Substance Use Hx: No Substance Use Type: Cocaine Hx Substance Use Treatment: Yes (detox, rehab, methadone program years ago) Review of Systems - Review of Systems Able to Perform ROS?: No (Pt condition) *Physical Exam - Vital Signs Last Vital Signs Temp Pulse Resp BP Pulse Ox 98.0 F 83 16 103/67 100 08/08/18 17:08 08/08/18 17:08 08/08/18 17:08 08/08/18 17:08 08/08/18 17:08 - Physical Exam Comments: Constitutional: Non-toxic adult female. Found semi-fowlers on hospital bed. Alert to voice but unable or unwilling to answer questions. Somnolent. Head: Normocephalic. No obvious external signs of trauma. Eyes: Sclerae white. Neck: Supple, trachea is midline. No JVD. Cardiovascular / Chest: Regular rate and regular rhythm. No murmur, rubs, clicks, or gallops. Peripheral pulses: radial pulses full. Trace pretibial edema. Respiratory: Breathing shallow and tachypneic. Equal chest rise and fall. Clear to auscultation bilaterally. No stridor, no wheezing, no rhonchi. Gastrointestinal: abdomen is soft with mild distension in LUQ. No overlying skin lesions. Neuro: Alert to verbal. Unable to assess orientation. Moving all four extremities spontaneously. Withdrawals locally to pain. Skin: Warm, dry, and intact. ED Treatment Course - LABORATORY CBC & Chemistry Diagram: 08/08/18 20:30 08/08/18 20:30 Medical Decision Making - Critical Care Time Total Critical Care Time (minutes): 30 Critical Care Statement: The care of this patient involved high complexity decision making to prevent further life threatening deterioration of the patient 's condition and/or to evaluate & treat vital organ system(s) failure or risk of failure. - Medical Decision Making *Reviewed vital signs, nursing notes, and prior visit documentation (if available). 67 y/o female presenting with altered mental status. H/o of similar presentations secondary to CHF and COPD. Afebrile. Vitals unremarkable for hypotension or tachycardia. Pts HIV status was known but last CD4 count and viral load were initially unknown. Initiated ED order set. Pt reportedly uses BiPap or CPAP at home. Quickly started on BiPAP given tachypnea and somnolence. EKG unremarkable for ischemic changes. CXR unremarkable for consolidation, blunting of costophrenic angles, or vascular congestion. ABG revealed elevated CO2. Suspect likely COPD exacerbation. Ordered DuoNebs and Solumedrol. CMP revealed hyperkalemia without EKG changes. Pt has no documented h/o of similar results. Suspect possible hemolyzed result. Will repeat CMP. CBC reported as hemolyzed by lab. Reordered. Troponin mildly elevated. No ischemic changes on EKG. Repeat CMP revealed hyperkalemia, hyponatremia, and significantly elevated BUN and Cr. No EKG changes. Already receiving inhaled beta agonist. Suspect possible severe dehydration with elevated BUN resulting in acute renal failure and decreased hematocrit. Troponin elevation like secondary to decreased GFR. UA revealed bacteria without pyuria, nitrites, or leukocyte esterase. Low suspicion for acute cystitis. 20:[address] Kirk. Verbally appraised of the pts HPI, ED course, and current plan of management. Will admit the pt to telemetry on inpatient status. Pts repeat ABG revealed basically unchanged results. Will increase inspiratory PEP and respiratory rate on BiPAP. Will repeat ABG in one hour. At request of Dr. Kirk, ICU team was consulted. Resident Dr. Diaz was verbally appraised of the pts HPI, ED course, and current plan of management. Requested CT scan of abdomen for upper abdominal tenderness as well as rapid influenza. Will accept the pt onto the ICU service. *DC/Admit/Observation/Transfer Diagnosis at time of Disposition: Elevated troponin I level, Respiratory acidosis, Hyperkalemia, COPD with acute exacerbation Altered mental status, unspecified Qualifiers: Altered mental status type: somnolence Qualified Code(s): R40.0 - Somnolence Acute renal failure Qualifiers: Acute renal failure type: unspecified Qualified Code(s): N17.9 - Acute kidney failure, unspecified - Discharge Dispostion Condition at time of disposition: Stable Decision to Admit order: Yes - Referrals - Patient Instructions - Post Discharge Activity
[2018-08-08 19:22] LABS: ARTERIAL BLD GAS O2 SATURATION 88.1 % (95-98); ARTERIAL BLOOD GAS BASE EXCESS 2.1 meq/l (-2-2); ARTERIAL BLOOD GAS PO2 69.3 mmHg (80-105); ARTERIAL BLOOD GAS pH 7.22 (7.35-7.45); CARBOXYHEMOGLOBIN 1.3 % (0-2)
[2018-08-08 19:24] LABS: ARTERIAL BLOOD GAS PCO2 77.4 mmHg (35-45)
--- NOTE | 2018-08-08 19:24 | PDOC ---
Attending Attestation - Resident Resident Name: TolentinoAndrez - ED Attending Attestation I have performed the following: I have examined & evaluated the patient, The case was reviewed & discussed with the resident, I agree w/resident's findings & plan, Exceptions are as noted - HPI HPI: 08/08/18 19:22 67-year-old female brought in by ambulance from custodial for 2 days of increasing somnolence, not eating. Past medical history significant for COPD, CHF, HIV, sepsis, coronary artery disease, hypercholesterolemia, peripheral vascular disease, cervical cancer PSH CABG three-vessel in 2010 - Physicial Exam PE: 08/08/18 19:24 Slender 67-year-old female who was emergently placed on BiPAP upon arrival. Head normocephalic/atraumatic. Neck supple Lungs no wheezing, no Rales appreciated CVS regular rate and rhythm. Abdomen is flat, nontender. Extremities no pitting edema Skin warm and dry. Neuro somnolent 08/08/18 19:36 - Medical Decision Making 08/08/18 19:37 abg shows pt is retaining on bipap setting fio2=40, rate=14 14/6 and they will increase her rate now 08/08/18 19:38 ID consult obtained with Dr Khan 08/08/18 20:51 pt found to be in acute renal failure w bun =100, creatinine 3.7, positive 0.86 , nq=344,k=5.8 one month ago her creatinine was 0.8 imp ARF,copd,positive trop, needs admission Dr Castillo spoken to for admit orders 08/08/18 20:54
[2018-08-08] MEDS ORDERED: methylPREDNISolone NA SUCC 125 MG/2 ML VIAL IVPUSH ONE (19:43)
[2018-08-08] MEDS ORDERED: ALBUTEROL SO4 2.5/IPRATROPIUM 0.5 INH SOL 3 ML VIAL.NEB. NEB ONE ×3 (19:43→20:09)
[2018-08-08] MEDS ORDERED: methylPREDNISolone NA SUCC 125 MG/2 ML VIAL ONE (20:08)
[2018-08-08 20:15] LABS: ALBUMIN 3.7 g/dl (3.4-5.0); ALK PHOS 85 U/L (45-117); ANION GAP 8 MMOL/L (8-16); BILIRUBIN,TOTAL 1.2 mg/dL (0.2-1); BLOOD UREA NITROGEN 100 mg/dL (7-18); CALCIUM 7.7 mg/dL (8.5-10.1); CHLORIDE 88 mmol/L (98-107); CO2 31 mmol/L (21-32); CREATININE 3.7 mg/dL (0.55-1.3); GLUCOSE,RANDOM 139 mg/dL (74-106); POTASSIUM 5.8 mmol/L (3.5-5.1); SGOT/AST 130 U/L (15-37); SGPT/ALT 41 U/L (13-61); SODIUM 128 mmol/L (136-145); TOT PROT 7.2 g/dl (6.4-8.2)
[2018-08-08 20:26] LABS: INR 1.49 (0.83-1.09); PROTHROMBIN TIME (PATIENT) 17.7 SEC (9.7-13.0)
[2018-08-08 20:28] LABS: ACTIVATED PTT 38.7 SECONDS (25.2-36.5)
[2018-08-08] MEDS ORDERED: SODIUM CHLORIDE 1,000 ML IV SCH ×2 (21:00→22:45)
[2018-08-08 21:01] LABS: ALBUMIN 3.7 g/dl (3.4-5.0); ALK PHOS 87 U/L (45-117); ANION GAP 7 MMOL/L (8-16); BILIRUBIN,TOTAL 0.5 mg/dL (0.2-1); BLOOD UREA NITROGEN 101 mg/dL (7-18); CALCIUM 7.5 mg/dL (8.5-10.1); CHLORIDE 90 mmol/L (98-107); CO2 31 mmol/L (21-32); CREATININE 3.7 mg/dL (0.55-1.3); GLUCOSE,RANDOM 138 mg/dL (74-106); POTASSIUM 5.5 mmol/L (3.5-5.1); SGOT/AST 119 U/L (15-37); SGPT/ALT 41 U/L (13-61); SODIUM 128 mmol/L (136-145); TOT PROT 7.2 g/dl (6.4-8.2)
[2018-08-08 21:10] LABS: URINE APPEARANCE Clear; URINE BILIRUBIN Negative (NEGATIVE); URINE COLOR Light yellow; URINE GLUCOSE (UA) Negative (NEGATIVE); URINE KETONE Negative (NEGATIVE); URINE LEUK ESTERASE Negative (NEGATIVE); URINE NITRITE Negative (NEGATIVE); URINE PROTEIN 1+ (NEGATIVE); URINE UROBILINOGEN 0.2 mg/dL (0.2-1.0)
[2018-08-08 21:17] LABS: BASO % 0.3 % (0-2.0); HEMATOCRIT 28.2 % (32.4-45.2); HEMOGLOBIN 9.3 GM/dL (10.7-15.3); LYMPH % 7.5 % (8-40); MCH 30.9 pg (25.7-33.7); MCHC 32.9 g/dl (32.0-36.0); MEAN PLT VOLUME 7.1 fl (7.5-11.1); MONO % 18.6 % (3.8-10.2); NEUT % 73.6 % (42.8-82.8); PLATELET COUNT 336 K/MM3 (134-434); RDW 14.6 % (11.6-15.6); WHITE BLOOD COUNT 11.3 K/mm3 (4.0-10.0)
[2018-08-08 21:56] LABS: URINE RBC 0-3 /hpf (0-4)
[2018-08-08 21:57] LABS: URINE BACTERIA MODERATE /hpf (NEGATIVE)
[2018-08-08 22:26] LABS: ARTERIAL BLD GAS O2 SATURATION 89.9 % (95-98); ARTERIAL BLOOD GAS BASE EXCESS 1.8 meq/l (-2-2); ARTERIAL BLOOD GAS PO2 73.3 mmHg (80-105)
[2018-08-08 22:27] LABS: ALLENS TEST POSITIVE; ARTERIAL BLOOD GAS pH 7.21 (7.35-7.45)
[2018-08-08 22:28] LABS: ARTERIAL BLOOD GAS PCO2 78.7 mmHg (35-45)
--- NOTE | 2018-08-08 22:33 | HP ---
Admitting History and Physical - Primary Care Physician PCP: Marquis Kirk - Admission History of Present Illness: 67 y/o female presenting to [facility] ED from [facility] for altered mental status and decreased PO intake for the past two days. Pt unable or unwilling to participate in the interview. Pts daughter was the one who saw the pt at the facility today and requested the transfer to the hospital. Pt was recently discharged from this facility on 08 July 2018 for acute CHF exacerbation. ECHO at that time revealed moderate concentric left ventricular hypertrophy, right atrium moderate to severely dilated, severe tricuspid regurg , RV pressure is > 60 mmhg, LV sys fxn normal, RV moderately dilated, septal motion consistent with conduction abnormality - Past Medical History Cardiovascular: Yes: CAD, CHF, Pulmonary Hypertension, Other (PVD) Pulmonary: Yes: Asthma, COPD Hepatobiliary: Yes: Cholelithiasis, Hepatitis C Infectious Disease: Yes: HIV - Past Surgical History Past Surgical History: Yes: CABG, Stent (b/l LE stents ) - Smoking History Smoking history: Never smoked Have you smoked in the past 12 months: No Aproximately how many cigarettes per day: 5 If you are a former smoker, when did you quit?: May 2018 - Alcohol/Substance Use Hx Alcohol Use: No History of Substance Use: reports: None - Social History ADL: Support Services History of Recent Travel: No Home Medications - Allergies Allergies/Adverse Reactions: Allergies Allergy/AdvReac Type Severity Reaction Status Date / Time aspirin AdvReac Mild GI upset Verified 07/05/18 13:02 - Home Medications Home Medications: Ambulatory Orders Gabapentin [Neurontin -] 800 mg PO Q8H 04/04/18 Albuterol 0.083% Nebulizer Sun [Ventolin 0.083% Nebulizer Soln -] 1 amp NEB Q4H PRN #7 amp 04/11/18 Carvedilol [Coreg -] 12.5 mg PO BID #60 tablet 04/11/18 Losartan Potassium [Cozaar -] 50 mg PO BID #30 tablet 04/11/18 Naloxone HCl [Narcan] 4 mg NS ONCE PRN #1 spray 05/24/18 Acetaminophen 2 tab PO DAILY PRN #60 tablet 06/01/18 Ergocalciferol (Vitamin D2) [Vitamin D2] 50,000 unit PO Q7D #4 capsule 06/01/18 Cholecalciferol (Vitamin D3) [Vitamin D3] 2,000 unit PO DAILY 06/03/18 Fosamax 70 mg PO WEEKLY 06/03/18 Sodium Chloride [Saline Nose [place]] 1 - 2 sprays NS PRN #1 spray 06/03/18 Abacavir/Dolutegravir/Lamivudi [Triumeq 600-50-300 mg Tablet] 1 each PO DAILY # 30 tablet 06/08/18 Albuterol Sulfate Inhaler - [Ventolin HFA Inhaler -] 1 - 2 inh PO Q6H PRN #1 inhaler 06/08/18 Aspirin Coated [Ecotrin -] 81 mg PO DAILY #30 tablet.ec 06/08/18 Calcium Carbonate/Vitamin D3 [Calcium 500-Vit D3 200 Caplet] 1 tab PO DAILY #30 tablet 06/08/18 Clopidogrel Bisulfate [Plavix] 75 mg PO DAILY #30 tablet 06/08/18 Diphenhydramine [Benadryl Capsule -] 50 mg PO HS #30 capsule 06/08/18 Escitalopram Oxalate [Lexapro -] 10 mg PO DAILY #30 tablet 06/08/18 Ferrous Sulfate [Feosol] 325 mg PO BID #60 tablet 06/08/18 Fluticasone/Salmeterol [Advair Hfa 230-21 Mcg Inhaler] 2 puff IH BID #1 hfa.aer.ad 06/08/18 Multivitamin [One-Daily Multi-Vitamin] 1 each PO DAILY #30 tablet 06/08/18 Nicotine [Nicotrol Ns] 1 dose IH DAILY PRN #1 spray 06/08/18 Pantoprazole Sodium [Protonix -] 20 mg PO DAILY #30 tablet.ec 06/08/18 Ranolazine [Ranexa -] 500 mg PO BID #60 tab 06/08/18 Simvastatin 10 mg PO DAILY #30 tablet 06/08/18 hydrALAZINE HCL [Apresoline -] 50 mg PO TID #90 tablet 06/08/18 Morphine *Sr* [MS Contin -] 30 mg PO Q8H #90 tablet.er MDD 3 06/14/18 Furosemide [Lasix -] 40 mg PO DAILY #30 tablet 07/08/18 Spironolactone [Aldactone -] 25 mg PO DAILY #30 tablet 07/08/18 Family Disease History - Family Disease History Family Disease History: Heart Disease: Mother (, hx etoh), Sister (two - living), CA: Sister, Other: Father (, hx etoh), Mother, Brother (two living - five - ? reason), Sister, Daughter (two adults) Physical Examination Vital Signs: Vital Signs Temperature 98.0 F 08/08/18 17:08 Pulse Rate 88 08/08/18 20:49 Respiratory Rate 19 08/08/18 20:49 Blood Pressure 100/68 08/08/18 20:49 O2 Sat by Pulse Oximetry (%) 98 08/08/18 20:49 Constitutional: Yes: Anxious HENT: Yes: Atraumatic Neck: Yes: Supple Cardiovascular: Yes: Regular Rate and Rhythm Respiratory: Yes: Rhonchi Gastrointestinal: Yes: Normal Bowel Sounds Extremities: Yes: WNL Edema: No Peripheral Pulses WNL: Yes Neurological: Yes: Other (on bipap lethargic) Labs: CBC, BMP 08/08/18 20:30 08/08/18 20:30 Imaging - Results X-ray: Report Reviewed Cat Scan: Report Reviewed Problem List - Problems (1) Acute renal failure Assessment/Plan: on iv hydration monitor\ Code(s): N17.9 - ACUTE KIDNEY FAILURE, UNSPECIFIED Qualifiers: Acute renal failure type: unspecified Qualified Code(s): N17.9 - Acute kidney failure, unspecified (2) Altered mental status, unspecified Code(s): R41.82 - ALTERED MENTAL STATUS, UNSPECIFIED Qualifiers: Altered mental status type: somnolence Qualified Code(s): R40.0 - Somnolence (3) COPD with acute exacerbation Assessment/Plan: steroids duo nebs Code(s): J44.1 - CHRONIC OBSTRUCTIVE PULMONARY DISEASE W (ACUTE) EXACERBATION (4) Elevated troponin I level Code(s): R74.8 - ABNORMAL LEVELS OF OTHER SERUM ENZYMES (5) Hyperkalemia Code(s): E87.5 - HYPERKALEMIA (6) COPD (chronic obstructive pulmonary disease) Code(s): J44.9 - CHRONIC OBSTRUCTIVE PULMONARY DISEASE, UNSPECIFIED Qualifiers: (7) HIV Assessment/Plan: continue home meds Code(s): Z21 - ASYMPTOMATIC HUMAN IMMUNODEFICIENCY VIRUS INFECTION STATUS (8) HTN (hypertension) Assessment/Plan: monitor on meds Code(s): I10 - ESSENTIAL (PRIMARY) HYPERTENSION Qualifiers: Hypertension type: essential hypertension Qualified Code(s): I10 - Essential (primary) hypertension (9) Hyperlipidemia Code(s): E78.5 - HYPERLIPIDEMIA, UNSPECIFIED Qualifiers: Hyperlipidemia type: pure hypercholesterolemia Qualified Code(s): E78.00 - Pure hypercholesterolemia, unspecified; E78.0 - Pure hypercholesterolemia (10) PVD (peripheral vascular disease) Code(s): I73.9 - PERIPHERAL VASCULAR DISEASE, UNSPECIFIED (11) CHF (congestive heart failure) Code(s): I50.9 - HEART FAILURE, UNSPECIFIED Qualifiers: Heart failure type: diastolic Heart failure chronicity: chronic Qualified Code(s): I50.32 - Chronic diastolic (congestive) heart failure Assessment/Plan Laboratory Tests 08/08/18 08/08/18 08/08/18 18:28 18:42 18:42 WBC Cancelled Corrected WBC (auto) Cancelled RBC Cancelled Hgb Cancelled Hct Cancelled MCV Cancelled MCH Cancelled MCHC Cancelled RDW Cancelled Plt Count Cancelled MPV Cancelled Absolute Neuts (auto) Cancelled Neutrophils % Cancelled Lymphocytes % Cancelled Monocytes % Cancelled Eosinophils % Cancelled Basophils % Cancelled Nucleated RBC % Cancelled Platelet Estimate Cancelled Platelet Comment Cancelled PT with INR INR PTT (Actin FS) Anticoagulation Therapy Puncture Site ABG pH ABG pCO2 at Pt Temp ABG pO2 at Pt Temp ABG HCO3 ABG O2 Sat (Measured) ABG O2 Content ABG Base Excess Trevor Test Carboxyhemoglobin Methemoglobin O2 Delivery Device Oxygen Flow Rate Vent Mode Vent Rate Mechanical Rate PEEP Pressure Support Vent Sodium 128 L Potassium 5.8 H Chloride 88 L Carbon Dioxide 31 Anion Gap 8 BUN 100 H Creatinine 3.7 H Creat Clearance w eGFR 12.22 Random Glucose 139 H Lactic Acid 1.7 Calcium 7.7 L Total Bilirubin 1.2 H AST 130 H ALT 41 Alkaline Phosphatase 85 Troponin I 0.86 H* Total Protein 7.2 Albumin 3.7 Urine Color Urine Appearance Urine pH Ur Specific [place] Urine Protein Urine Glucose (UA) Urine Ketones Urine Blood Urine Nitrite Urine Bilirubin Urine Urobilinogen Ur Leukocyte Esterase Urine WBC (Auto) Urine RBC (Auto) Urine Bacteria (Auto) 08/08/18 08/08/18 08/08/18 18:45 19:37 20:30 WBC Corrected WBC (auto) RBC Hgb Hct MCV MCH MCHC RDW Plt Count MPV Absolute Neuts (auto) Neutrophils % Lymphocytes % Monocytes % Eosinophils % Basophils % Nucleated RBC % Platelet Estimate Platelet Comment PT with INR 17.70 H INR 1.49 H PTT (Actin FS) 38.7 H Anticoagulation Therapy No Result Required. Puncture Site No Result Required. ABG pH 7.22 L ABG pCO2 at Pt Temp 77.4 H* ABG pO2 at Pt Temp 69.3 L ABG HCO3 30.3 H ABG O2 Sat (Measured) 88.1 L ABG O2 Content 10.1 L ABG Base Excess 2.1 H Trevor Test No Result Required. Carboxyhemoglobin 1.3 Methemoglobin 0.8 O2 Delivery Device No Result Required. Oxygen Flow Rate No Result Required. Vent Mode No Result Required. Vent Rate No Result Required. Mechanical Rate No Result Required. PEEP Pressure Support Vent No Result Required. Sodium 128 L Potassium 5.5 H Chloride 90 L Carbon Dioxide 31 Anion Gap 7 L BUN 101 H Creatinine 3.7 H Creat Clearance w eGFR 12.22 Random Glucose 138 H Lactic Acid Calcium 7.5 L Total Bilirubin 0.5 AST 119 H ALT 41 Alkaline Phosphatase 87 Troponin I Total Protein 7.2 Albumin 3.7 Urine Color Urine Appearance Urine pH Ur Specific [place] Urine Protein Urine Glucose (UA) Urine Ketones Urine Blood Urine Nitrite Urine Bilirubin Urine Urobilinogen Ur Leukocyte Esterase Urine WBC (Auto) Urine RBC (Auto) Urine Bacteria (Auto) 08/08/18 08/08/18 08/08/18 20:30 20:39 22:10 WBC 11.3 H Corrected WBC (auto) RBC 3.00 L Hgb 9.3 L Hct 28.2 L MCV 94.0 MCH 30.9 MCHC 32.9 RDW 14.6 Plt Count 336 D MPV 7.1 L Absolute Neuts (auto) 8.3 H Neutrophils % 73.6 Lymphocytes % 7.5 L D Monocytes % 18.6 H D Eosinophils % 0.0 D Basophils % 0.3 Nucleated RBC % 1 H Platelet Estimate Platelet Comment PT with INR INR PTT (Actin FS) Anticoagulation Therapy Puncture Site Left radial ABG pH 7.21 L ABG pCO2 at Pt Temp 78.7 H* ABG pO2 at Pt Temp 73.3 L ABG HCO3 30.6 H ABG O2 Sat (Measured) 89.9 L ABG O2 Content 11.8 L ABG Base Excess 1.8 Trevor Test Positive Carboxyhemoglobin Methemoglobin O2 Delivery Device Bipap Oxygen Flow Rate 40% Vent Mode S/t Vent Rate 20 Mechanical Rate PEEP 0.0 Pressure Support Vent 14/6 Sodium Potassium Chloride Carbon Dioxide Anion Gap BUN Creatinine Creat Clearance w eGFR Random Glucose Lactic Acid Calcium Total Bilirubin AST ALT Alkaline Phosphatase Troponin I Total Protein Albumin Urine Color Light yellow Urine Appearance Clear Urine pH 5.0 Ur Specific [place] 1.020 Urine Protein 1+ H Urine Glucose (UA) Negative Urine Ketones Negative Urine Blood Negative Urine Nitrite Negative Urine Bilirubin Negative Urine Urobilinogen 0.2 Ur Leukocyte Esterase Negative Urine WBC (Auto) 3-5 Urine RBC (Auto) 0-3 Urine Bacteria (Auto) Moderate Active Medications Generic Name Dose Route Start Last Admin Trade Name Freq PRN Reason Stop Dose Admin Sodium Chloride 1,000 mls @ 100 mls/hr 08/08/18 21:00 08/08/18 21:23 Normal Saline - IV 100 mls/hr ASDIR ALYSON Administration Active Medications Generic Name Dose Route Start Last Admin Trade Name Freq PRN Reason Stop Dose Admin Albuterol Sulfate 1 amp 08/09/18 05:27 Ventolin 0.083% Nebulizer Soln - NEB Q6H PRN SHORT OF BREATH/WHEEZING Albuterol/Ipratropium 1 amp 08/09/18 08:00 08/09/18 16:18 Duoneb - NEB 1 amp RQID ALYSON Administration Atorvastatin Calcium 10 mg 08/10/18 22:00 Lipitor - PO HS ALYSON Heparin Sodium (Porcine) 5,000 unit 08/09/18 10:00 08/09/18 12:04 Heparin - SQ 5,000 unit BID ALYSON Administration Sodium Chloride 1,000 mls @ 75 mls/hr 08/09/18 13:15 08/09/18 14:43 Normal Saline - IV 08/09/18 23:14 75 mls/hr ASDIR ALYSON Administration Methylprednisolone Sodium Succinate 40 mg 08/09/18 12:04 Solu-Medrol - IVPUSH BID ALYSON Ranolazine 500 mg 08/09/18 22:00 Ranexa - PO BID ALYSON ASSESSMENT Acute on Chronic Hypoxic and Hypercapneic Respiratory Failure Acute COPD Exacerbation Acute Kidney Injury Hyperkalemia Hyponatremia Altered Mental Status LV Diastolic/Systolic Dysfunction Severe Pulmonary HTN CAD s/p CABG HIV PAD HTN -
[2018-08-08] MEDS ORDERED: ACETAMINOPHEN 325 MG TABLET (FP) PO PRN (22:39)
[2018-08-08] MEDS ORDERED: GABAPENTIN 400 MG CAPSULE (FP) PO SCH (22:45)
[2018-08-08] MEDS: GABAPENTIN 400 MG CAPSULE (FP) PO SCH (23:56)
[2018-08-09 01:05] LABS: ARTERIAL BLD GAS O2 SATURATION 77.4 % (95-98); ARTERIAL BLOOD GAS BASE EXCESS 1.3 meq/l (-2-2); ARTERIAL BLOOD GAS PCO2 70.7 mmHg (35-45); ARTERIAL BLOOD GAS PO2 52.3 mmHg (80-105); ARTERIAL BLOOD GAS pH 7.24 (7.35-7.45)
[2018-08-09 01:06] LABS: ALLENS TEST POSITIVE
--- NOTE | 2018-08-09 01:42 | CONSULT ---
Consultation: REQUESTING PROVIDER: CONSULT REQUEST: We have been asked to medically evaluate this patient for ( Acute hypoxic hypercapenic respiratory failure---ICU admission). HISTORY OF PRESENT ILLNESS: Patient is a 67 year old female brought from [facility] after her daughter found her confused. Patient was recently admitted at [facility] 07/05/18 for CHF exacerbation and discharged on to [facility] for Short term rehab. Patient's daughter mentions that she found her to have altered mental status in [place] and called 911 and brought here to the ED for evaluation. Patient's room mate had mentioned to her that patient hasn't been eating or drinking for the past couple of days. Patient wasn't replying to daughter's phone as well. Also reports to have abdominal pain, diffusely located, 8/10 in intensity, non radiating, not associated with nausea or vomiting, but has watery diarrhoea since few days. Has shortness of breath but denies chest pain, palpitations, headache, blurring of vision, any focal neurological deficits. Bladder habit normal prior to her illness. Evaluated the patient in the ED. Patient was in Bipap, oriented x 3 but drowsy. On arrival to the ED, she was afebrile, hemodynamically stable, hypoxic, ABG showed Respiratory acidosis with PCO2 of 78, was placed on Bipap. Was given 1 L of Normal Saline and fluid was continued. Added BNP resulted 31,000 (last admission was 6000). Normal saline stopped. En route to the ICU patient will get a CT abdomen/Pelvis. PAST MEDICAL HISTORY: HTN, CAD s/p CABG in 2009, PVD with B/L LE stents, HIV, HEP C,COPD and CHF ALLERGIES: Aspirin PAST SURGICAL HISTORY: CABG x2 in 2009, B/L LE stents SOCIAL HISTORY: Has been living with her daughter since . Prior to that, patient used to live alone in [place]. Smoking- Quit in May 2018 Alcohol- Denies Drugs- Denies FAMILY HISTORY: Non contributory TRAVEL: Not recently. REVIEW OF SYSTEMS: CONSTITUTIONAL: Absent: fever, chills, diaphoresis, generalized weakness, malaise, loss of appetite, weight change HEENT: Absent: rhinorrhea, nasal congestion, throat pain, throat swelling, difficulty swallowing, mouth swelling, ear pain, eye pain, visual changes CARDIOVASCULAR: Absent: chest pain, syncope, palpitations, irregular heart rate, lightheadedness , peripheral edema RESPIRATORY: Present: shortness of breath Absent: cough, , dyspnea with exertion, orthopnea, wheezing, stridor, hemoptysis GASTROINTESTINAL: Absent: abdominal pain, abdominal distension, nausea, vomiting, diarrhea, constipation, melena, hematochezia GENITOURINARY: Absent: dysuria, frequency, urgency, hesitancy, hematuria, flank pain, genital pain MUSCULOSKELETAL: Absent: myalgia, arthralgia, joint swelling, back pain, neck pain SKIN: Absent: rash, itching, pallor HEMATOLOGIC/IMMUNOLOGIC: Absent: easy bleeding, easy bruising, lymphadenopathy, frequent infections ENDOCRINE: Absent: unexplained weight gain, unexplained weight loss, heat intolerance, cold intolerance NEUROLOGIC: Present: mental status changes Absent: headache, focal weakness or paresthesias, dizziness, unsteady gait, seizure, bladder or bowel incontinence PSYCHIATRIC: Absent: anxiety, depression, suicidal or homicidal ideation, hallucinations. PHYSICAL EXAMINATION Vital Signs - 24 hr 08/08/18 08/08/18 08/08/18 17:08 18:54 20:49 Temperature 98.0 F Pulse Rate 83 82 Pulse Rate [ 88 Right Radial] Respiratory 16 19 Rate Blood Pressure 103/67 Blood Pressure 100/68 [Right Arm] O2 Sat by Pulse 100 94 L 98 Oximetry (%) GENERAL: Middle aged female, Awake, alert, and oriented x 3, in respiratory distress, on bipap now. has jerky movements (not seizures) . EYES: EOM intact, no pallor or icterus. EARS, NOSE, THROAT: Ears normal. Dry mucous membranes. NECK: Supple, no JVD. LUNGS: B/L occasional wheeze, minimal bibasilar crackles. No accessory muscle use. HEART: Regular rate and rhythm, normal S1 and S2 with systolic murmur. ABDOMEN: Soft, distended, tender to palpation diffusely, BS +. UPPER EXTREMITIES: No peripheral edema. LOWER EXTREMITIES: No peripheral edema. NEUROLOGICAL: No facial droop. Minimal conversation. Jerky movements + . PSYCHIATRIC: Poor eye contact. SKIN: Warm, dry, normal turgor, no rashes or lesions noted. Laboratory Results - last 24 hr 08/08/18 08/08/18 08/08/18 18:28 18:42 18:42 WBC Cancelled Corrected WBC (auto) Cancelled RBC Cancelled Hgb Cancelled Hct Cancelled MCV Cancelled MCH Cancelled MCHC Cancelled RDW Cancelled Plt Count Cancelled MPV Cancelled Absolute Neuts (auto) Cancelled Neutrophils % Cancelled Lymphocytes % Cancelled Monocytes % Cancelled Eosinophils % Cancelled Basophils % Cancelled Nucleated RBC % Cancelled Platelet Estimate Cancelled Platelet Comment Cancelled PT with INR INR PTT (Actin FS) Anticoagulation Therapy Puncture Site ABG pH ABG pCO2 at Pt Temp ABG pO2 at Pt Temp ABG HCO3 ABG O2 Sat (Measured) ABG O2 Content ABG Base Excess Trevor Test Carboxyhemoglobin Methemoglobin O2 Delivery Device Oxygen Flow Rate Vent Mode Vent Rate Mechanical Rate PEEP Pressure Support Vent Sodium 128 L Potassium 5.8 H Chloride 88 L Carbon Dioxide 31 Anion Gap 8 BUN 100 H Creatinine 3.7 H Creat Clearance w eGFR 12.22 Random Glucose 139 H Lactic Acid 1.7 Calcium 7.7 L Total Bilirubin 1.2 H AST 130 H ALT 41 Alkaline Phosphatase 85 Creatine Kinase Troponin I 0.86 H* Total Protein 7.2 Albumin 3.7 Urine Color Urine Appearance Urine pH Ur Specific Roosevelt Urine Protein Urine Glucose (UA) Urine Ketones Urine Blood Urine Nitrite Urine Bilirubin Urine Urobilinogen Ur Leukocyte Esterase Urine WBC (Auto) Urine RBC (Auto) Urine Bacteria (Auto) 08/08/18 08/08/18 08/08/18 18:45 19:37 20:30 WBC Corrected WBC (auto) RBC Hgb Hct MCV MCH MCHC RDW Plt Count MPV Absolute Neuts (auto) Neutrophils % Lymphocytes % Monocytes % Eosinophils % Basophils % Nucleated RBC % Platelet Estimate Platelet Comment PT with INR 17.70 H INR 1.49 H PTT (Actin FS) 38.7 H Anticoagulation Therapy No Result Required. Puncture Site No Result Required. ABG pH 7.22 L ABG pCO2 at Pt Temp 77.4 H* ABG pO2 at Pt Temp 69.3 L ABG HCO3 30.3 H ABG O2 Sat (Measured) 88.1 L ABG O2 Content 10.1 L ABG Base Excess 2.1 H Trevor Test No Result Required. Carboxyhemoglobin 1.3 Methemoglobin 0.8 O2 Delivery Device No Result Required. Oxygen Flow Rate No Result Required. Vent Mode No Result Required. Vent Rate No Result Required. Mechanical Rate No Result Required. PEEP Pressure Support Vent No Result Required. Sodium 128 L Potassium 5.5 H Chloride 90 L Carbon Dioxide 31 Anion Gap 7 L BUN 101 H Creatinine 3.7 H Creat Clearance w eGFR 12.22 Random Glucose 138 H Lactic Acid Calcium 7.5 L Total Bilirubin 0.5 AST 119 H ALT 41 Alkaline Phosphatase 87 Creatine Kinase Troponin I Total Protein 7.2 Albumin 3.7 Urine Color Urine Appearance Urine pH Ur Specific Roosevelt Urine Protein Urine Glucose (UA) Urine Ketones Urine Blood Urine Nitrite Urine Bilirubin Urine Urobilinogen Ur Leukocyte Esterase Urine WBC (Auto) Urine RBC (Auto) Urine Bacteria (Auto) 08/08/18 08/08/18 08/08/18 20:30 20:39 22:10 WBC 11.3 H Corrected WBC (auto) RBC 3.00 L Hgb 9.3 L Hct 28.2 L MCV 94.0 MCH 30.9 MCHC 32.9 RDW 14.6 Plt Count 336 D MPV 7.1 L Absolute Neuts (auto) 8.3 H Neutrophils % 73.6 Lymphocytes % 7.5 L D Monocytes % 18.6 H D Eosinophils % 0.0 D Basophils % 0.3 Nucleated RBC % 1 H Platelet Estimate Platelet Comment PT with INR INR PTT (Actin FS) Anticoagulation Therapy Puncture Site Left radial ABG pH 7.21 L ABG pCO2 at Pt Temp 78.7 H* ABG pO2 at Pt Temp 73.3 L ABG HCO3 30.6 H ABG O2 Sat (Measured) 89.9 L ABG O2 Content 11.8 L ABG Base Excess 1.8 Trevor Test Positive Carboxyhemoglobin Methemoglobin O2 Delivery Device Bipap Oxygen Flow Rate 40% Vent Mode S/t Vent Rate 20 Mechanical Rate PEEP 0.0 Pressure Support Vent 14/6 Sodium Potassium Chloride Carbon Dioxide Anion Gap BUN Creatinine Creat Clearance w eGFR Random Glucose Lactic Acid Calcium Total Bilirubin AST ALT Alkaline Phosphatase Creatine Kinase Troponin I Total Protein Albumin Urine Color Light yellow Urine Appearance Clear Urine pH 5.0 Ur Specific Roosevelt 1.020 Urine Protein 1+ H Urine Glucose (UA) Negative Urine Ketones Negative Urine Blood Negative Urine Nitrite Negative Urine Bilirubin Negative Urine Urobilinogen 0.2 Ur Leukocyte Esterase Negative Urine WBC (Auto) 3-5 Urine RBC (Auto) 0-3 Urine Bacteria (Auto) Moderate 08/09/18 08/09/18 00:45 01:00 WBC Corrected WBC (auto) RBC Hgb Hct MCV MCH MCHC RDW Plt Count MPV Absolute Neuts (auto) Neutrophils % Lymphocytes % Monocytes % Eosinophils % Basophils % Nucleated RBC % Platelet Estimate Platelet Comment PT with INR INR PTT (Actin FS) Anticoagulation Therapy No Result Required. Puncture Site Right radial ABG pH 7.24 L ABG pCO2 at Pt Temp 70.7 H* ABG pO2 at Pt Temp 52.3 L ABG HCO3 29.2 H ABG O2 Sat (Measured) 77.4 L ABG O2 Content 10.0 L ABG Base Excess 1.3 Trevor Test Positive Carboxyhemoglobin Methemoglobin O2 Delivery Device Bipap Oxygen Flow Rate 30% Vent Mode No Result Required. Vent Rate 24 Mechanical Rate No Result Required. PEEP Pressure Support Vent 20/5 Sodium Potassium Chloride Carbon Dioxide Anion Gap BUN Creatinine Creat Clearance w eGFR Random Glucose Lactic Acid Calcium Total Bilirubin AST ALT Alkaline Phosphatase Creatine Kinase 1382 H Troponin I Total Protein Albumin Urine Color Urine Appearance Urine pH Ur Specific Roosevelt Urine Protein Urine Glucose (UA) Urine Ketones Urine Blood Urine Nitrite Urine Bilirubin Urine Urobilinogen Ur Leukocyte Esterase Urine WBC (Auto) Urine RBC (Auto) Urine Bacteria (Auto) Active Medications Generic Name Dose Route Start Last Admin Trade Name Freq PRN Reason Stop Dose Admin Abacavir/Dolutegravir/Lamivudine 1 each 08/09/18 10:00 Triumeq (Non-Formulary) PO DAILY [facility] Acetaminophen 650 mg 08/08/18 22:39 Tylenol - PO Q6H PRN FEVER Aspirin 81 mg 08/09/18 10:00 Ecotrin - PO DAILY [facility] Carvedilol 12.5 mg 08/09/18 10:00 Coreg - PO BID [facility] Clopidogrel Bisulfate 75 mg 08/09/18 10:00 Plavix - PO DAILY [facility] Escitalopram Oxalate 10 mg 08/09/18 10:00 Lexapro - PO DAILY [facility] Ferrous Sulfate 325 mg 08/09/18 10:00 Feosol - PO BID [facility] Furosemide 40 mg 08/09/18 10:00 Lasix - PO DAILY [facility] Gabapentin 800 mg 08/08/18 23:15 08/08/18 23:56 Neurontin - PO 800 mg TID [facility] Administration Heparin Sodium (Porcine) 5,000 unit 08/09/18 10:00 Heparin - SQ BID [facility] Hydralazine HCl 50 mg 08/09/18 06:00 Apresoline - PO TID [facility] Sodium Chloride 1,000 mls @ 100 mls/hr 08/08/18 21:00 04/01/19 21:23 Normal Saline - IV 100 mls/hr ASDIR [facility] Administration Sodium Chloride 1,000 mls @ 75 mls/hr 08/08/18 22:45 08/08/18 23:22 Normal Saline - IV 75 mls/hr ASDIR [facility] Administration Pantoprazole Sodium 20 mg 08/09/18 10:00 Protonix - PO DAILY [facility] Last Echo 04/04: severe TR with RV: 45, EF 50-55%, moderate pulmonary HTN 07/06/28 Echo: moderate concntric left ventricular hypertrophy, right atrium moderate to severely dialted, severe tricuspid regurg, RV pressure is > 60 mmhg , LV sys fxn normal, RV moderately dilated, septal motion consistent with conduction abnormality ASSESSMENT/PLAN: Patient is a 67 year old female with PMHx of HTN, CAD s/p CABG in 2009, PVD with B/L LE stents, HIV, HEP C, COPD and CHF brought from [facility] after her daughter found her confused. # Acute hypoxic hypercapneic respiratory failure likely secondary to COPD exacerbation/Diastolic CHF exacerbation On admission, patient was hypoxic to 80's, ABG x 3 showed CO2 retention of 70. Was given 1L of NS in the ED. BNP was added in the labs- 79153 (last admission it was 6000). IV hydration stopped. Repeat ABG and adjust Bipap Duoneb/Albuterol IV Solumedrol 125 mg given in the ED, continue IV Solumedrol 60 mg BID # Acute on chronic Diastolic CHF exacerbation Torres in place. Strict I's and O's Will repeat a CXR and give her Lasix if CXR looks congested. Currently patient looks hypovolemic and dry. No lower ext edema, no crackles. # Abdominal pain/diarrhoea r/o colitis Abdominal/Pelvis CT done, report pending. # Hyperkalemia K- 5.5, cocktail given in the ED Repeat K. Treat as needed. # KRISTIAN Likely from poor oral intake Creatinine 3.7, baseline < 1 (07/08/18) Was given a L of NS. Avoid nephrotoxic drugs. # HTN-controlled continue hydralazine, aldactone 25 mg, losartan 50 BID monitor with lasix depending on the CXR. # CAD s/p CABG continue plavix (allergic to aspirin) # HIV continue Triumec recent CD4 count [address] Blake # Hx stents continue plavix (allergic to aspirin) # Depression continue Lexapro # PVD s/p SFA stent # Angina Ranexa 500 mg BID # Osteoporosis Alendronate 70 mg once every Wednesday. # FEN Stop IV NS Electrolytes to be repeated NPO until evaluated # Prophylaxis For DVT: On Heparin 5000 IU sq TID For GI: Ranitidine 150mg BID. # Code Status Full Code # Dispo: Admit to ICU. Case discussed with ED physician and resident. Clarissa Diaz, PGY-3. Dispo: We will continue to follow the patient. Thank you for this consultative opportunity. Visit type - Emergency Visit Emergency Visit: Yes ED Registration Date: 08/08/18 Care time: The patient presented to the Emergency Department on the above date and was hospitalized for further evaluation of their emergent condition. - New Patient This patient is new to me today: Yes Date on this admission: 08/08/18 - Critical Care Critical Care patient: Yes Total Critical Care Time (in minutes): 35 Critical Care Statement: The care of this patient involved high complexity decision making to prevent further life threatening deterioration of the patient 's condition and/or to evaluate & treat vital organ system(s) failure or risk of failure.
[2018-08-09] MEDS ORDERED: ALBUTEROL SO4 0.083% IH SOL 2.5 MG/3 ML VIAL.NEB. NEB PRN (05:27)
[2018-08-09 05:54] LABS: ALLENS TEST POSITIVE; ARTERIAL BLD GAS O2 SATURATION 87.5 % (95-98); ARTERIAL BLOOD GAS BASE EXCESS 2.1 meq/l (-2-2); ARTERIAL BLOOD GAS PCO2 73.9 mmHg (35-45); ARTERIAL BLOOD GAS pH 7.24 (7.35-7.45)
[2018-08-09] MEDS ORDERED: hydrALAZINE HCL 50 MG TABLET (FP) PO SCH (06:00)
[2018-08-09] MEDS: GABAPENTIN 400 MG CAPSULE (FP) PO SCH (06:33)
[2018-08-09] MEDS ORDERED: AZITHROMYCIN IVPB 500 MG/250 ML BAG IVPB SCH (07:00)
[2018-08-09 07:15] LABS: BASO % 0.1 % (0-2.0); HEMATOCRIT 28.8 % (32.4-45.2); HEMOGLOBIN 9.6 GM/dL (10.7-15.3); LYMPH % 3.9 % (8-40); MCH 31.3 pg (25.7-33.7); MCHC 33.5 g/dl (32.0-36.0); MEAN CELL VOLUME 93.7 fl (80-96); MEAN PLT VOLUME 7.1 fl (7.5-11.1); PLATELET COUNT 338 K/MM3 (134-434); RBC 3.08 M/mm3 (3.60-5.2); RDW 14.4 % (11.6-15.6); WHITE BLOOD COUNT 11.6 K/mm3 (4.0-10.0)
--- NOTE | 2018-08-09 07:28 | PN ---
Physical Exam: SUBJECTIVE: Patient seen and examined at bedside. Pt seems lethargic however arousable to verbal stimuli. She is able to respond well to commands (hand panman , moves extremities) and will nod her head in response to yes or no questions, however she is minimally conversive. Currently on bi-level satting well, in no acute distress. No use of accessory muscles noted. Pt looks comfortable on exam. No complaints. OBJECTIVE: Vital Signs Period Temp Pulse Resp BP Sys/Buck Pulse Ox Last 24 Hr 98 F-98.0 F 70-88 16-19 100-118/67-85 92-100 GENERAL: Lethargic, but arousable to commands. NAD. On bipap. HEENT: AT/NC. EOMI. Dry mucus membranes. NECK: Trachea midline, full range of motion, supple. LUNGS: B/L occasional wheeze, minimal bibasilar crackles. No accessory muscle use. HEART: RRR. Normal S1, S2. No murmurs noted. ABDOMEN: +distension, +TTP diffusely; hypoactive bowel sounds EXTREMITIES: 2+ pulses, warm, well-perfused, no edema. NEUROLOGICAL: Responds to commands, +5/5 hand panman. moves b/l LE CBCD WBC 11.3 K/mm3 (4.0-10.0) H 08/08/18 20:30 RBC 3.00 M/mm3 (3.60-5.2) L 08/08/18 20:30 Hgb 9.3 GM/dL (10.7-15.3) L 08/08/18 20:30 Hct 28.2 % (32.4-45.2) L 08/08/18 20:30 MCV 94.0 fl (80-96) 08/08/18 20:30 MCHC 32.9 g/dl (32.0-36.0) 08/08/18 20:30 RDW 14.6 % (11.6-15.6) 08/08/18 20:30 Plt Count 336 K/MM3 (134-434) D 08/08/18 20:30 MPV 7.1 fl (7.5-11.1) L 08/08/18 20:30 CMP Sodium 128 mmol/L (136-145) L 08/08/18 20:30 Potassium 5.5 mmol/L (3.5-5.1) H 08/08/18 20:30 Chloride 90 mmol/L (98-107) L 08/08/18 20:30 Carbon Dioxide 31 mmol/L (21-32) 08/08/18 20:30 Anion Gap 7 MMOL/L (8-16) L 08/08/18 20:30 BUN 101 mg/dL (7-18) H 08/08/18 20:30 Creatinine 3.7 mg/dL (0.55-1.3) H 08/08/18 20:30 Creat Clearance w eGFR 12.22 (>60) 08/08/18 20:30 Calcium 7.5 mg/dL (8.5-10.1) L 08/08/18 20:30 Total Bilirubin 0.5 mg/dL (0.2-1) 08/08/18 20:30 AST 119 U/L (15-37) H 08/08/18 20:30 ALT 41 U/L (13-61) 08/08/18 20:30 Alkaline Phosphatase 87 U/L (45-117) 08/08/18 20:30 Total Protein 7.2 g/dl (6.4-8.2) 08/08/18 20:30 Albumin 3.7 g/dl (3.4-5.0) 08/08/18 20:30 Active Medications Abacavir Sulfate (Ziagen -) 600 mg PO DAILY [facility] Acetaminophen (Tylenol -) 650 mg PO Q6H PRN PRN Reason: FEVER Albuterol Sulfate (Ventolin 0.083% Nebulizer Soln -) 1 amp NEB Q6H PRN PRN Reason: SHORT OF BREATH/WHEEZING Albuterol/Ipratropium (Duoneb -) 1 amp NEB RQID [facility] Carvedilol (Coreg -) 12.5 mg PO BID [facility] Clopidogrel Bisulfate (Plavix -) 75 mg PO DAILY [facility] Escitalopram Oxalate (Lexapro -) 10 mg PO DAILY [facility] Ferrous Sulfate (Feosol -) 325 mg PO BID [facility] Gabapentin (Neurontin -) 800 mg PO TID [facility] Last Admin: 08/09/18 06:33 Dose: Not Given Heparin Sodium (Porcine) (Heparin -) 5,000 unit SQ BID [facility] Hydralazine HCl (Apresoline -) 50 mg PO TID [facility] Last Admin: 08/09/18 06:33 Dose: Not Given Azithromycin (Zithromax 500mg Ivpb (Pre-Docked)) 500 mg in 250 mls @ 250 mls/ hr IVPB DAILY [facility] Lamivudine (Epivir -) 300 mg PO DAILY [facility] Losartan Potassium (Cozaar -) 50 mg PO BID [facility] Methylprednisolone Sodium Succinate (Solu-Medrol -) 60 mg IVPUSH BID [facility] Pantoprazole Sodium (Protonix -) 20 mg PO DAILY [facility] Spironolactone (Aldactone -) 25 mg PO DAILY [facility] IMAGING: * CXR: Large heart, unfolded aorta, improvement in aeration since 07/07/18 * CTAP: Severely limited due to lack of contrast. Mod cardiomegaly, small pleural reactions at the bases. R base bronchiectasis w/ peribronchial consolidations. Small blebs and pleural changes. Cholelithiasis, possible wall thickening vs. pericholecystic fluid. Kidneys: Probable vascular calcificiations , cannot r/o small stones. Past Imaging * 07/06/18 Echo: moderate concntric left ventricular hypertrophy, right atrium moderate to severely dilated, severe tricuspid regurg, RV pressure is > 60 mmhg , LV sys fxn normal, RV moderately dilated, septal motion consistent with conduction abnormality ASSESSMENT/PLAN: 67F w/ PMHx of HTN, CAD s/p CABG in 2009, PVD with B/L LE stents, HIV, HEP C, COPD and CHF brought from [facility] after her daughter found her confused. NEURO # Depression -Hold home meds due to pt's currently mental status PULM # Acute hypoxic hypercapneic respiratory failure likely 2/2 COPD exacerbation/ Diastolic CHF exacerbation -On admission, patient was hypoxic to 80's, ABG x 3 showed CO2 retention of 70. -Was given 1L of NS in the ED. BNP was added- 26263 (last admission it was 6000) . IV hydration stopped. -Repeat ABG and adjust Bipap -Duoneb/Albuterol -IV Solumedrol 125 mg given in the ED, continue IV Solumedrol 60 mg BID -Cont home med: Aldactone 25 QD CV # Acute on chronic Diastolic CHF exacerbation -Torres in place. Strict I's and O's -Will repeat a CXR and give her Lasix if CXR looks congested. Currently patient looks euvolemic and dry. No lower ext edema. # HTN-controlled -Hold all home PO meds: hydralazine, aldactone 25 mg, losartan 50 BID, Losartan 50 BID in setting of KRISTIAN # CAD s/p CABG -Pt takes Plavix (allergic to aspirin); Hold home PO meds due to pt's current mental status # Hx stents -continue Plavix (allergic to aspirin); Hold home PO meds due to pt's current mental status # Angina -Pt takes Ranexa 500 mg BID; hold home PO meds due to pt's current mental status # PVD s/p SFA stent; Stable. GI # Abdominal pain/diarrhea -r/o colitis -Abdominal/Pelvis CT done, report pending. RENAL # Hyperkalemia -K- 5.5, cocktail given in the ED -Will give D50 + Insulin, calcium gluconate -repeat BMP (K+) at 6pm # KRISTIAN -Likely from poor oral intake -Creatinine 3.7, improving to now 2.9 after given 1L NS bolus and standing NS @ 75 overnight; baseline < 1 (07/08/18) -IVf discontinued -Urine electrolytes ordered -Kidney/bladder U/S ordered to r/o hydronephrosis -Avoid nephrotoxic drugs ID # HIV -Hold home PO meds -recent CD4 count 440 -followed by Dr. Hayden YUEN # Osteoporosis -Alendronate 70 mg once every Wednesday. FEN -Stop IV NS -Electrolytes to be repeated -NPO until evaluated PROPHYLAXIS For DVT: On Heparin 5000 IU sq TID For GI: Ranitidine 150mg BID. Dispo -cont to monitor in ICU Visit type - Emergency Visit Emergency Visit: Yes ED Registration Date: 08/08/18 Care time: The patient presented to the Emergency Department on the above date and was hospitalized for further evaluation of their emergent condition. - New Patient This patient is new to me today: Yes Date on this admission: 08/09/18 - Critical Care Critical Care patient: Yes Total Critical Care Time (in minutes): 35 Critical Care Statement: The care of this patient involved high complexity decision making to prevent further life threatening deterioration of the patient 's condition and/or to evaluate & treat vital organ system(s) failure or risk of failure.
[2018-08-09] MEDS: ALBUTEROL SO4 2.5/IPRATROPIUM 0.5 INH SOL 3 ML VIAL.NEB. NEB SCH ×4 (07:45→20:50)
[2018-08-09] MEDS: AZITHROMYCIN IVPB 500 MG in DEXTROSE 5%-WATER - 250 ML IVPB SCH ×2 (07:46→20:54)
[2018-08-09 08:07] LABS: MAGNESIUM 2.3 mg/dL (1.8-2.4); PHOSPHOROUS 5.6 mg/dL (2.5-4.9)
[2018-08-09 08:23] LABS: ALBUMIN 3.4 g/dl (3.4-5.0); ALK PHOS 82 U/L (45-117); ANION GAP 8 MMOL/L (8-16); BILIRUBIN,TOTAL 0.5 mg/dL (0.2-1); CALCIUM 7.9 mg/dL (8.5-10.1); CHLORIDE 92 mmol/L (98-107); CO2 29 mmol/L (21-32); CREATININE 2.9 mg/dL (0.55-1.3); GLUCOSE,RANDOM 140 mg/dL (74-106); POTASSIUM 5.6 mmol/L (3.5-5.1); SGOT/AST 101 U/L (15-37); SGPT/ALT 44 U/L (13-61); SODIUM 129 mmol/L (136-145); TOT PROT 7.1 g/dl (6.4-8.2)
[2018-08-09 08:30] LABS: BLOOD UREA NITROGEN 105 mg/dL (7-18)
[2018-08-09] MEDS ORDERED: SPIRONOLACTONE 25 MG TABLET (FP) PO SCH (10:00)
[2018-08-09] MEDS ORDERED: FERROUS SO4 325 MG TABLET (FP) PO SCH (10:00)
[2018-08-09] MEDS ORDERED: PANTOPRAZOLE 20 MG TABLET (FP) PO SCH (10:00)
[2018-08-09] MEDS ORDERED: ABACAVIR SULFATE 300 MG TABLET PO SCH (10:00)
[2018-08-09] MEDS ORDERED: DOLUTEGRAVIR SODIUM 50 MG TABLET (NON-FORMULARY) PO SCH ×2 (10:00→10:30)
[2018-08-09] MEDS ORDERED: CLOPIDOGREL BISULFATE 75 MG TABLET (FP) PO SCH (10:00)
[2018-08-09] MEDS ORDERED: FUROSEMIDE 40 MG TABLET (FP) PO SCH (10:00)
[2018-08-09] MEDS ORDERED: ESCITALOPRAM OXALATE 10 MG TABLET (FP) PO SCH (10:00)
[2018-08-09] MEDS ORDERED: methylPREDNISolone NA SUCC 40 MG/1 ML VIAL IVPUSH SCH (10:00)
[2018-08-09] MEDS ORDERED: ABACAVIR/DOLUTEGRAVIR/LAMIVUDI (TRIUMEQ) TABLET -NF PO SCH (10:00)
[2018-08-09] MEDS ORDERED: LOSARTAN POTASSIUM 50 MG TABLET (FP) PO SCH (10:00)
[2018-08-09] MEDS ORDERED: ASPIRIN COATED 81 MG TABLET.EC PO SCH (10:00)
[2018-08-09] MEDS ORDERED: CARVEDILOL 12.5 MG TABLET (FP) PO SCH (10:00)
--- NOTE | 2018-08-09 10:51 | PN ---
Progress Note (short form) - Note Progress Note: ID CONSULT DICTATED ACUTE EXACERBATION COPD ALTERED MENTAL STATUS SECONDARY TO HYPERCAPNEA KRISTIAN/ ELECTROLYTE IMBALANCE HIV + ASYMPTOMATIC RESP SUPPORT OBSERVE OFF ANTIBIOTICS ART RENAL EVALUATION
[2018-08-09 10:52] LABS: ANISOCYTOSIS 0; MACROCYTOSIS 0; PLATELET ESTIMATE NORMAL
--- NOTE | 2018-08-09 11:13 | CONS ---
DATE OF CONSULTATION: DATE OF DICTATION: 08/09/2018 CHIEF COMPLAINT: The patient is a 67-year-old female evaluated for HIV infection. HISTORY OF PRESENT ILLNESS: The patient was recently hospitalized at [facility] from July 05 through July 08 with decompensated congestive heart failure. She was discharged to a half-way facility for rehabilitation. At the nursing facility, the patient was noted to become increasingly lethargic and somnolent as well as suffering from anorexia. Symptoms worsened over the past 2 days. She was evaluated in the emergency room at [facility] where she was found to be in hypercapnic respiratory failure. She was placed on BiPAP and transferred to the intensive care unit. At the present time she is on BiPAP. She is not verbally responsive and does not respond to verbal commands. She has been afebrile with a slightly elevated white blood cell count. Cultures have been obtained. She was empirically treated with Zithromax. A chest x-ray is negative for acute infiltrate. No reports of recent febrile illness or shaking chills, cough, sputum production, hemoptysis. No reports of vomiting, diarrhea, dysuria, or hematuria. PAST MEDICAL HISTORY: Positive for HIV infection, longstanding. She is asymptomatic. She is presently on antiretroviral therapy. Per her last viral markers from May showed an undetectable viral load and a T-cell count of 440. Past medical history also includes COPD on home oxygen and BiPAP, congestive heart failure, coronary artery disease, hyperlipidemia, peripheral vascular disease, cervical cancer. Hepatitis C, treated. PAST SURGICAL HISTORY: Status post coronary artery bypass graft 2009, lower extremity vascular stents. ALLERGIES: ASPIRIN. MEDICATIONS: Neurontin, Coreg, Cozaar, Ecotrin, Plavix, Lexapro, Protonix, Apresoline, Lasix. SOCIAL HISTORY: She is a former smoker. She is living in a half-way facility for short-term rehabilitation. REVIEW OF SYSTEMS: Neurologic: Positive for somnolence. No loss of consciousness, seizure activity, or focal weakness. Cardiac: Negative chest pain or palpitations. Respiratory: As per HPI. Gastrointestinal: Negative vomiting or diarrhea. Genitourinary: Negative for urinary tract infection. LABORATORY DATA: White count 11.6, 91 neutrophils, 3 lymphocytes, 5 monocytes. Hematocrit 28.8, platelet count 338. BUN 105, creatinine 2.3. Sodium 129. Lactic acid 0.9. Total bilirubin 0.5. Alkaline phosphatase 82, AST 101, ALT 44. Flu swab negative. Urinalysis: 3-5 white cells. Chest x-ray: Enlarged heart. No acute infiltrate. PHYSICAL EXAMINATION: General: She is somnolent, does not respond to verbal stimulus, on BiPAP. Vital Signs: Temperature 98, blood pressure 106/71, pulse 79, regular. Respirations 18 per minute. HEENT: Sclerae are anicteric. Cardiovascular: Heart sounds S1, S2. Lungs: Diminished breath sounds bilaterally. Abdomen: Soft, nontender. Extremities: Negative for edema. IMPRESSION: 1. Acute exacerbation of chronic obstructive pulmonary disease. 2. Altered mental status, likely secondary to hypercapnia. 3. Electrolyte imbalance. 4. Acute kidney injury. 5. HIV positive, asymptomatic. PLAN: Would observe off antibiotic therapy. Continue antiretroviral therapy, respiratory support. Renal evaluation for electrolyte imbalance and acute renal failure. Thank you for the kind referral. CARIDAD HARP M.D. [id number]
[2018-08-09] MEDS: HEPARIN NA (PORCINE) 5,000 UNITS/ML 1ML VIAL SQ SCH ×2 (12:04→22:30)
[2018-08-09] MEDS ORDERED: CALCIUM GLUCONATE 10% - 1,000 MG/10 ML VIAL IVPB ONE (12:15)
[2018-08-09] MEDS ORDERED: INSULIN (NOVOLOG) ASPART 100 UNITS/ML 10ML VIAL SQ ONE (12:15)
[2018-08-09] MEDS ORDERED: DEXTROSE 50%-WATER - 25 GM/50 ML VIAL IVPUSH ONE ×2 (12:15→18:25)
[2018-08-09] MEDS ORDERED: DEXTROSE 50%-WATER - 25 GM/50 ML VIAL ONE ×2 (12:21→18:50)
[2018-08-09] MEDS ORDERED: INSULIN REGULAR HUMAN 100 UNITS/ML *VIAL IVPUSH ONE ×2 (12:30→18:25)
[2018-08-09] MEDS ORDERED: SODIUM CHLORIDE 1,000 ML IV SCH (13:15)
--- NOTE | 2018-08-09 13:16 | PN ---
Teaching Attending Note Name of Resident: Petrona Dailey ATTENDING PHYSICIAN STATEMENT I saw and evaluated the patient. I reviewed the resident's note and discussed the case with the resident. I agree with the resident's findings and plan as documented. SUBJECTIVE: Pt seen and examined in the ICU. Lethargic but arousable on BiPAP. Latest ABG still with acute on chronic respiratory acidosis. OBJECTIVE: Vital Signs Period Temp Pulse Resp BP Sys/Buck Pulse Ox Last 24 Hr 98 F-98.0 F 70-88 16- 93-118/62-85 92-100 Intake & Output 08/06/18 08/07/18 08/08/18 08/09/18 23:59 23:59 23:59 23:59 Weight 58.967 kg 55.6 kg Gen: lethargic but arousable Heart: RRR Lung: distant breath sounds Abd: softly distended, nontender Ext: no edema CBC, BMP 08/09/18 06:30 08/09/18 06:30 Hepatic Panel Total Bilirubin 0.5 mg/dL (0.2-1) 08/09/18 06:30 AST 101 U/L (15-37) H 08/09/18 06:30 ALT 44 U/L (13-61) 08/09/18 06:30 Alkaline Phosphatase 82 U/L (45-117) 08/09/18 06:30 Albumin 3.4 g/dl (3.4-5.0) 08/09/18 06:30 Active Medications Albuterol Sulfate (Ventolin 0.083% Nebulizer Soln -) 1 amp NEB Q6H PRN PRN Reason: SHORT OF BREATH/WHEEZING Albuterol/Ipratropium (Duoneb -) 1 amp NEB RQID [facility] Last Admin: 08/09/18 11:20 Dose: 1 amp Heparin Sodium (Porcine) (Heparin -) 5,000 unit SQ BID [facility] Last Admin: 08/09/18 12:04 Dose: 5,000 unit Methylprednisolone Sodium Succinate (Solu-Medrol -) 40 mg IVPUSH BID [facility] ASSESSMENT AND PLAN: Acute on Chronic Hypoxic and Hypercapneic Respiratory Failure Acute COPD Exacerbation Acute Kidney Injury Hyperkalemia Hyponatremia Altered Mental Status LV Diastolic/Systolic Dysfunction Severe Pulmonary HTN CAD s/p CABG HIV PAD HTN - continue medrol - inhaled bronchodilators - O2 to keep Spo2 >90% - BiPAP - monitor ABG - urine studies c/w prerenal disease and with improving creatinine with fluid trial - continue IVF for now - monitor urine output, creatinine - renal/bladder sono - medical treatment of hyperkalemia - monitor lytes - aspiration precautions - DVT prophylaxis - continue ICU monitoring critical care time spent in reviewing chart, evaluating patient and formulating plan 35 min
--- NOTE | 2018-08-09 13:23 | CON.CARD ---
Consult Consult Specialty:: Cardiology Referred by:: Marquis Kirk MD Reason for Consultation:: H/o CHF - History of Present Illness Chief Complaint: Altered mental status History of Present Illness: Patient is a 67 y/o female with a history of HTN, CAD s/p CABG in 2009, PVD with b/l LE stents, HIV, HEP C, and COPD, cor pulmonale and diastolic failure who presents with altered mental status, anorexia, dyspnea, without chest pain, palpitations, near or true syncope, found to be in acute hypoxic, hypercapneic respiratory failure, placed on NIPPV. - History Source History Provided By: Medical Record Limitations to Obtaining History: Clinical Condition - Past Medical History Cardio/Vascular: Yes: CAD, CHF, Pulmonary Hypertension, Other (PVD) Pulmonary: Yes: Asthma, COPD Hepatobiliary: Yes: Cholelithiasis, Hepatitis C Infectious Disease: Yes: HIV - Past Surgical History Past Surgical History: Yes: CABG, Stent (b/l LE stents ) - Alcohol/Substance Use Hx Alcohol Use: No History of Substance Use: reports: None - Smoking History Smoking history: Former smoker Have you smoked in the past 12 months: No Aproximately how many cigarettes per day: 5 If you are a former smoker, when did you quit?: May 2018 - Social History Usual Living Arrangement: With Child ADL: Support Services History of Recent Travel: No Home Medications - Allergies Allergies/Adverse Reactions: Allergies Allergy/AdvReac Type Severity Reaction Status Date / Time aspirin AdvReac Mild GI upset Verified 07/05/18 13:02 - Home Medications Home Medications: Ambulatory Orders Gabapentin [Neurontin -] 800 mg PO Q8H 04/04/18 Albuterol 0.083% Nebulizer Sun [Ventolin 0.083% Nebulizer Soln -] 1 amp NEB Q4H PRN #7 amp 04/11/18 Carvedilol [Coreg -] 12.5 mg PO BID #60 tablet 04/11/18 Losartan Potassium [Cozaar -] 50 mg PO BID #30 tablet 04/11/18 Naloxone HCl [Narcan] 4 mg NS ONCE PRN #1 spray 05/24/18 Acetaminophen 2 tab PO DAILY PRN #60 tablet 06/01/18 Ergocalciferol (Vitamin D2) [Vitamin D2] 50,000 unit PO Q7D #4 capsule 06/01/18 Cholecalciferol (Vitamin D3) [Vitamin D3] 2,000 unit PO DAILY 06/03/18 Fosamax 70 mg PO WEEKLY 06/03/18 Sodium Chloride [Saline [place]ose [place]] 1 - 2 sprays NS PRN #1 spray 06/03/18 Abacavir/Dolutegravir/Lamivudi [Triumeq 600-50-300 mg Tablet] 1 each PO DAILY # 30 tablet 06/08/18 Albuterol Sulfate Inhaler - [Ventolin HFA Inhaler -] 1 - 2 inh PO Q6H PRN #1 inhaler 06/08/18 Aspirin Coated [Ecotrin -] 81 mg PO DAILY #30 tablet.ec 06/08/18 Calcium Carbonate/Vitamin D3 [Calcium 500-Vit D3 200 Caplet] 1 tab PO DAILY #30 tablet 06/08/18 Clopidogrel Bisulfate [Plavix] 75 mg PO DAILY #30 tablet 06/08/18 Diphenhydramine [Benadryl Capsule -] 50 mg PO HS #30 capsule 06/08/18 Escitalopram Oxalate [Lexapro -] 10 mg PO DAILY #30 tablet 06/08/18 Ferrous Sulfate [Feosol] 325 mg PO BID #60 tablet 06/08/18 Fluticasone/Salmeterol [Advair Hfa 230-21 Mcg Inhaler] 2 puff IH BID #1 hfa.aer.ad 06/08/18 Multivitamin [One-Daily Multi-Vitamin] 1 each PO DAILY #30 tablet 06/08/18 Nicotine [Nicotrol Ns] 1 dose IH DAILY PRN #1 spray 06/08/18 Pantoprazole Sodium [Protonix -] 20 mg PO DAILY #30 tablet.ec 06/08/18 Ranolazine [Ranexa -] 500 mg PO BID #60 tab 06/08/18 Simvastatin 10 mg PO DAILY #30 tablet 06/08/18 hydrALAZINE HCL [Apresoline -] 50 mg PO TID #90 tablet 06/08/18 Morphine *Sr* [MS Contin -] 30 mg PO Q8H #90 tablet.er MDD 3 06/14/18 Furosemide [Lasix -] 40 mg PO DAILY #30 tablet 07/08/18 Spironolactone [Aldactone -] 25 mg PO DAILY #30 tablet 07/08/18 Family Disease History - Family Disease History Family Disease History: Heart Disease: Mother (, hx etoh), Sister (two - living), [place]: Sister, Other: Father (, hx etoh), Mother, Brother (two living - five - ? reason), Sister, Daughter (two adults) Review of Systems - Review of Systems Constitutional: reports: Lethargy Neurological: reports: Confusion Vital Signs: Vital Signs Temperature 98 F 08/09/18 05:45 Pulse Rate 68 08/09/18 12:00 Respiratory Rate 08/09/18 12:00 Blood Pressure 105/67 08/09/18 12:00 O2 Sat by Pulse Oximetry (%) 98 08/09/18 11:13 Constitutional: Yes: No Distress, Calm, Thin Neck: Yes: Supple Respiratory: Yes: Regular, Diminished, On Nasal O2 Gastrointestinal: Yes: Soft, Hypoactive Bowel Sounds Cardiovascular: Yes: Regular Rate and Rhythm JVD: No Carotid Bruit: No Heart Sounds: Yes: S1, S2 Murmur: Yes: Systolic Murmur, Grade 2 Edema: No - Other Data Labs, Other Data: CBC, BMP 08/09/18 06:30 08/09/18 06:30 INR, PTT INR 1.49 (0.83-1.09) H 08/08/18 19:37 Troponin, BNP 08/08/18 08/08/18 08/09/18 18:42 18:42 00:45 Troponin I 0.86 H* 0.80 H* B-Natriuretic Peptide 67769.1 H Troponin, BNP 08/08/18 08/08/18 08/09/18 18:42 18:42 00:45 Troponin I 0.86 H* 0.80 H* B-Natriuretic Peptide 59818.1 H NSR @ 83 Ejection Fraction %: LVEF > or = 40 % Imaging - Results Chest X-ray: Report Reviewed (Improved aeration) Problem List - Problems (1) Acute renal failure Code(s): N17.9 - ACUTE KIDNEY FAILURE, UNSPECIFIED Qualifiers: Acute renal failure type: unspecified Qualified Code(s): N17.9 - Acute kidney failure, unspecified (2) Altered mental status, unspecified Code(s): R41.82 - ALTERED MENTAL STATUS, UNSPECIFIED Qualifiers: Altered mental status type: somnolence Qualified Code(s): R40.0 - Somnolence (3) CHF (congestive heart failure) Code(s): I50.9 - HEART FAILURE, UNSPECIFIED Qualifiers: Heart failure type: diastolic Heart failure chronicity: chronic Qualified Code(s): I50.32 - Chronic diastolic (congestive) heart failure (4) COPD with acute exacerbation Code(s): J44.1 - CHRONIC OBSTRUCTIVE PULMONARY DISEASE W (ACUTE) EXACERBATION (5) Elevated troponin I level Code(s): R74.8 - ABNORMAL LEVELS OF OTHER SERUM ENZYMES (6) Hyperkalemia Code(s): E87.5 - HYPERKALEMIA (7) Respiratory acidosis Code(s): E87.2 - ACIDOSIS (8) CAD (coronary artery disease) Code(s): I25.10 - ATHSCL HEART DISEASE OF [place] CORONARY ARTERY W/O ANG PCTRS Qualifiers: Coronary Disease-Associated Artery/Lesion type: [place] artery [place] vs. transplanted heart: [place] heart Associated angina: without angina Qualified Code(s): I25.10 - Atherosclerotic heart disease of [place] coronary artery without angina pectoris (9) Asymptomatic cholelithiasis Code(s): K80.20 - CALCULUS OF GALLBLADDER W/O CHOLECYSTITIS W/O OBSTRUCTION (10) Cor pulmonale, chronic Code(s): I27.81 - COR PULMONALE (CHRONIC) (11) HIV Code(s): Z21 - ASYMPTOMATIC HUMAN IMMUNODEFICIENCY VIRUS INFECTION STATUS (12) HTN (hypertension) Code(s): I10 - ESSENTIAL (PRIMARY) HYPERTENSION Qualifiers: Hypertension type: essential hypertension Qualified Code(s): I10 - Essential (primary) hypertension (13) Hyperlipidemia Code(s): E78.5 - HYPERLIPIDEMIA, UNSPECIFIED Qualifiers: Hyperlipidemia type: pure hypercholesterolemia Qualified Code(s): E78.00 - Pure hypercholesterolemia, unspecified; E78.0 - Pure hypercholesterolemia (14) PVD (peripheral vascular disease) Code(s): I73.9 - PERIPHERAL VASCULAR DISEASE, UNSPECIFIED (15) S/P CABG (coronary artery bypass graft) Code(s): Z95.1 - PRESENCE OF AORTOCORONARY BYPASS GRAFT Assessment/Plan Echo: 07/06/2018 Mod cLVH with preserved LV fxn, mod-severe RITIKA, severe TR, RVSP >60, RV volume overload with mod decreased RV fxn 1. Acute on chronic hypercapneic/hypoxemic respiratory failure, related to 2. Acute exacerbation of chronic obstructive pulmonary disease 3. Right Heart Failure/Volume Overload with Severe Pulmonary HTN 4. Diastolic dysfunction 5. CAD s/p CABG, demand ischemia 7. HTN 8. Hypercholesterolemia 9. HIV, Hep C 10. Smoker 11. PAD s/p SFA stent 12. Pre-renal Acute on CKD improving, hyperkalemia, hyponatremia 13. Toxic metabolic encephelopathy 14. Cholelithiasis PLAN: 1. Holding oral diuretics, losartan and judicious IVF with monitor renal recovery and electrolytes, trops downtrending 2. Continue ASA 81 qd, carvedilol 12.5 bid, Plavix 75 qd, Lipitor 10 qd, Ranexa 500 bid 3. IV steroid, BD, O2 to keep SpO2 88-92%, bipap as needed, monitor ABG. off antibiotics as per the primary team 4. DVT prophylaxis, HAART 5. Thank you for consultative opportunity -
--- NOTE | 2018-08-09 14:42 | EKG ---
Test Reason : Blood Pressure : / mmHG Vent. Rate : 083 BPM Atrial Rate : 083 BPM P-R Int : 134 ms QRS Dur : 116 ms QT Int : 402 ms P-R-T Axes : 072 005 084 degrees QTc Int : 472 ms NORMAL SINUS RHYTHM LOW VOLTAGE QRS NONSPECIFIC T WAVE ABNORMALITY PROLONGED QT ABNORMAL ECG WHEN COMPARED WITH ECG OF 08-AUG-2018 18:22, ABERRANT CONDUCTION IS NO LONGER PRESENT ST NO LONGER ELEVATED IN INFERIOR LEADS NONSPECIFIC T WAVE ABNORMALITY HAS REPLACED INVERTED T WAVES IN LATERAL LEADS Confirmed by Ignacio Rubalcava ([id number]) on 08/09/2018 2:42:37 PM Referred By: Confirmed By:Ignacio Rubalcava
--- NOTE | 2018-08-09 18:01 | PN ---
Progress Note, Physician History of Present Illness: on NC - Current Medication List Current Medications: Active Medications Albuterol Sulfate (Ventolin 0.083% Nebulizer Soln -) 1 amp NEB Q6H PRN PRN Reason: SHORT OF BREATH/WHEEZING Albuterol/Ipratropium (Duoneb -) 1 amp NEB RQID [facility] Last Admin: 08/09/18 16:18 Dose: 1 amp Atorvastatin Calcium (Lipitor -) 10 mg PO HS [facility] Heparin Sodium (Porcine) (Heparin -) 5,000 unit SQ BID [facility] Last Admin: 08/09/18 12:04 Dose: 5,000 unit Sodium Chloride (Normal Saline -) 1,000 mls @ 75 mls/hr IV ASDIR [facility] Stop: 08/09/18 23:14 Last Admin: 08/09/18 14:43 Dose: 75 mls/hr Methylprednisolone Sodium Succinate (Solu-Medrol -) 40 mg IVPUSH BID [facility] Ranolazine (Ranexa -) 500 mg PO BID [facility] - Objective Vital Signs: Vital Signs Temperature 98.6 F 08/09/18 17:57 Pulse Rate 76 08/09/18 17:57 Respiratory Rate 11 08/09/18 17:57 Blood Pressure 104/60 08/09/18 17:57 O2 Sat by Pulse Oximetry (%) 96 08/09/18 13:25 Constitutional: Yes: Calm HENT: Yes: Atraumatic Neck: Yes: Supple Cardiovascular: Yes: Regular Rate and Rhythm Respiratory: Yes: Rhonchi Gastrointestinal: Yes: Normal Bowel Sounds Extremities: Yes: WNL Edema: No Peripheral Pulses WNL: Yes Neurological: Yes: Alert, Oriented Labs: CBC, BMP 08/09/18 06:30 INR, PTT INR 1.49 (0.83-1.09) H 08/08/18 19:37 Problem List - Problems (1) Acute renal failure Assessment/Plan: on iv hydration Code(s): N17.9 - ACUTE KIDNEY FAILURE, UNSPECIFIED Qualifiers: Acute renal failure type: unspecified Qualified Code(s): N17.9 - Acute kidney failure, unspecified (2) Altered mental status, unspecified Code(s): R41.82 - ALTERED MENTAL STATUS, UNSPECIFIED Qualifiers: Altered mental status type: somnolence Qualified Code(s): R40.0 - Somnolence (3) COPD with acute exacerbation Assessment/Plan: steroids duo nebs Code(s): J44.1 - CHRONIC OBSTRUCTIVE PULMONARY DISEASE W (ACUTE) EXACERBATION (4) Elevated troponin I level Code(s): R74.8 - ABNORMAL LEVELS OF OTHER SERUM ENZYMES (5) Hyperkalemia Code(s): E87.5 - HYPERKALEMIA (6) COPD (chronic obstructive pulmonary disease) Code(s): J44.9 - CHRONIC OBSTRUCTIVE PULMONARY DISEASE, UNSPECIFIED Qualifiers: (7) HIV Assessment/Plan: continue home meds Code(s): Z21 - ASYMPTOMATIC HUMAN IMMUNODEFICIENCY VIRUS INFECTION STATUS (8) HTN (hypertension) Assessment/Plan: monitor on meds Code(s): I10 - ESSENTIAL (PRIMARY) HYPERTENSION Qualifiers: Hypertension type: essential hypertension Qualified Code(s): I10 - Essential (primary) hypertension (9) Hyperlipidemia Code(s): E78.5 - HYPERLIPIDEMIA, UNSPECIFIED Qualifiers: Hyperlipidemia type: pure hypercholesterolemia Qualified Code(s): E78.00 - Pure hypercholesterolemia, unspecified; E78.0 - Pure hypercholesterolemia (10) PVD (peripheral vascular disease) Code(s): I73.9 - PERIPHERAL VASCULAR DISEASE, UNSPECIFIED (11) CHF (congestive heart failure) Code(s): I50.9 - HEART FAILURE, UNSPECIFIED Qualifiers: Heart failure type: diastolic Heart failure chronicity: chronic Qualified Code(s): I50.32 - Chronic diastolic (congestive) heart failure
[2018-08-09 18:07] LABS: ANION GAP 7 MMOL/L (8-16); BLOOD UREA NITROGEN 100 mg/dL (7-18); CALCIUM 7.6 mg/dL (8.5-10.1); CHLORIDE 95 mmol/L (98-107); CO2 30 mmol/L (21-32); CREATININE 2.2 mg/dL (0.55-1.3); GLUCOSE,RANDOM 124 mg/dL (74-106); POTASSIUM 5.5 mmol/L (3.5-5.1); SODIUM 131 mmol/L (136-145)
[2018-08-09] MEDS ORDERED: ALBUTEROL SO4 0.5 % INH SOLN 2.5 MG/0.5 ML VIAL.NEB. NEB ONE (18:52)
[2018-08-09] MEDS ORDERED: RANOLAZINE E.R. 500 MG TABLET (FP) PO SCH (22:00)
[2018-08-09 22:27] LABS: ANION GAP 5 MMOL/L (8-16); BLOOD UREA NITROGEN 94 mg/dL (7-18); CALCIUM 8.1 mg/dL (8.5-10.1); CHLORIDE 97 mmol/L (98-107); CO2 32 mmol/L (21-32); GLUCOSE,RANDOM 133 mg/dL (74-106); SODIUM 134 mmol/L (136-145)
[2018-08-09] MEDS: methylPREDNISolone NA SUCC 40 MG/1 ML VIAL IVPUSH SCH (22:30)
[2018-08-10 06:34] LABS: HEMATOCRIT 29.5 % (32.4-45.2); MCH 31.7 pg (25.7-33.7); MCHC 34.1 g/dl (32.0-36.0); MEAN CELL VOLUME 93.2 fl (80-96); MONO % 16.8 % (3.8-10.2); NEUT % 78.2 % (42.8-82.8); PLATELET COUNT 343 K/MM3 (134-434); RBC 3.17 M/mm3 (3.60-5.2); RDW 14.7 % (11.6-15.6); WHITE BLOOD COUNT 10.5 K/mm3 (4.0-10.0)
[2018-08-10 07:00] LABS: ALBUMIN 3.3 g/dl (3.4-5.0); ALK PHOS 71 U/L (45-117); ANION GAP 5 MMOL/L (8-16); BILIRUBIN,TOTAL 0.6 mg/dL (0.2-1); BLOOD UREA NITROGEN 94 mg/dL (7-18); CALCIUM 8.9 mg/dL (8.5-10.1); CHLORIDE 97 mmol/L (98-107); CO2 32 mmol/L (21-32); CREATININE 1.5 mg/dL (0.55-1.3); GLUCOSE,RANDOM 140 mg/dL (74-106); MAGNESIUM 2.3 mg/dL (1.8-2.4); PHOSPHOROUS 3.3 mg/dL (2.5-4.9); POTASSIUM 4.9 mmol/L (3.5-5.1); SGOT/AST 66 U/L (15-37); SGPT/ALT 40 U/L (13-61); SODIUM 134 mmol/L (136-145)
--- NOTE | 2018-08-10 08:42 | PN ---
Physical Exam: SUBJECTIVE: Patient seen and examined at bedside. Per night team, pt was found to have crackles on exam and as a result, IV fluids were stopped. No Lasix given. Pt is more awake and alert today, able to converse. Mildly confused, but able to respond to questions appropriately. No flatus, or bowel movements. OBJECTIVE: Vital Signs Period Temp Pulse Resp BP Sys/Buck Pulse Ox Last 24 Hr 97.8 F-98.6 F 68-95 10-22 93-160/58-90 94-100 GENERAL: Somnolent but arousable to verbal stimuli. On NC 4L. Resting comfortably in bed, NAD. HEENT: AT/NC. EOMI. Dry mucus membranes. NECK: Trachea midline, full range of motion, supple. LUNGS: mild b/l crackles. No accessory muscle use. HEART: RRR. Normal S1, S2. No murmurs noted. ABDOMEN: + mild distension although improved since yesterday. hypoactive bowel sounds EXTREMITIES: 2+ pulses, warm, well-perfused, no edema. 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 moves b/l LE Laboratory Results - last 24 hr 08/09/18 08/09/18 08/09/18 06:30 07:31 09:05 WBC RBC Hgb Hct MCV MCH MCHC RDW Plt Count MPV Absolute Neuts (auto) Neutrophils % Neutrophils % (Manual) 92.0 H Band Neutrophils % 3.0 Lymphocytes % Lymphocytes % (Manual) 3.0 L D Monocytes % Monocytes % (Manual) 2 L Eosinophils % Eosinophils % (Manual) 0.0 Basophils % Basophils % (Manual) 0.0 Myelocytes % (Man) 0 Promyelocytes % (Man) 0 Blast Cells % (Manual) 0 Nucleated RBC % Metamyelocytes 0 Hypochromia 0 Platelet Estimate Normal Polychromasia 0 Poikilocytosis 0 Anisocytosis 0 Microcytosis 0 Macrocytosis 0 Sodium Potassium Chloride Carbon Dioxide Anion Gap BUN Creatinine Creat Clearance w eGFR Random Glucose Lactic Acid 0.9 Calcium Phosphorus Magnesium Total Bilirubin AST ALT Alkaline Phosphatase Total Protein Albumin Urine Osmolality 346 Ur Random Sodium Ur Random Potassium Ur Random Chloride Ur Random Urea Nitrogn Urine Creatinine 08/09/18 08/09/18 08/09/18 09:05 09:05 11:45 WBC RBC Hgb Hct MCV MCH MCHC RDW Plt Count MPV Absolute Neuts (auto) Neutrophils % Neutrophils % (Manual) Band Neutrophils % Lymphocytes % Lymphocytes % (Manual) Monocytes % Monocytes % (Manual) Eosinophils % Eosinophils % (Manual) Basophils % Basophils % (Manual) Myelocytes % (Man) Promyelocytes % (Man) Blast Cells % (Manual) Nucleated RBC % Metamyelocytes Hypochromia Platelet Estimate Polychromasia Poikilocytosis Anisocytosis Microcytosis Macrocytosis Sodium Potassium Chloride Carbon Dioxide Anion Gap BUN Creatinine Creat Clearance w eGFR Random Glucose Lactic Acid Calcium Phosphorus Magnesium Total Bilirubin AST ALT Alkaline Phosphatase Total Protein Albumin Urine Osmolality Ur Random Sodium < 18 L Ur Random Potassium 47.1 Ur Random Chloride < 11 L Ur Random Urea Nitrogn 482 Urine Creatinine 89.0 08/09/18 08/09/18 08/10/18 17:20 21:30 05:30 WBC 10.5 H RBC 3.17 L Hgb 10.0 L Hct 29.5 L MCV 93.2 MCH 31.7 MCHC 34.1 RDW 14.7 Plt Count 343 MPV 7.0 L Absolute Neuts (auto) 8.2 H Neutrophils % 78.2 Neutrophils % (Manual) Band Neutrophils % Lymphocytes % 5.0 L D Lymphocytes % (Manual) Monocytes % 16.8 H D Monocytes % (Manual) Eosinophils % 0.0 Eosinophils % (Manual) Basophils % 0.0 Basophils % (Manual) Myelocytes % (Man) Promyelocytes % (Man) Blast Cells % (Manual) Nucleated RBC % 1 H Metamyelocytes Hypochromia Platelet Estimate Polychromasia Poikilocytosis Anisocytosis Microcytosis Macrocytosis Sodium 131 L 134 L Potassium 5.5 H 5.0 Chloride 95 L 97 L Carbon Dioxide 30 32 Anion Gap 7 L 5 L BUN 100 H 94 H Creatinine 2.2 H 2.0 H Creat Clearance w eGFR 22.26 24.85 Random Glucose 124 H 133 H Lactic Acid Calcium 7.6 L 8.1 L Phosphorus Magnesium Total Bilirubin AST ALT Alkaline Phosphatase Total Protein Albumin Urine Osmolality Ur Random Sodium Ur Random Potassium Ur Random Chloride Ur Random Urea Nitrogn Urine Creatinine 08/10/18 05:30 WBC RBC Hgb Hct MCV MCH MCHC RDW Plt Count MPV Absolute Neuts (auto) Neutrophils % Neutrophils % (Manual) Band Neutrophils % Lymphocytes % Lymphocytes % (Manual) Monocytes % Monocytes % (Manual) Eosinophils % Eosinophils % (Manual) Basophils % Basophils % (Manual) Myelocytes % (Man) Promyelocytes % (Man) Blast Cells % (Manual) Nucleated RBC % Metamyelocytes Hypochromia Platelet Estimate Polychromasia Poikilocytosis Anisocytosis Microcytosis Macrocytosis Sodium 134 L Potassium 4.9 Chloride 97 L Carbon Dioxide 32 Anion Gap 5 L BUN 94 H Creatinine 1.5 H Creat Clearance w eGFR 34.64 Random Glucose 140 H Lactic Acid Calcium 8.9 Phosphorus 3.3 Magnesium 2.3 Total Bilirubin 0.6 AST 66 H ALT 40 Alkaline Phosphatase 71 Total Protein 7.0 Albumin 3.3 L Urine Osmolality Ur Random Sodium Ur Random Potassium Ur Random Chloride Ur Random Urea Nitrogn Urine Creatinine Active Medications Albuterol Sulfate (Ventolin 0.083% Nebulizer Soln -) 1 amp NEB Q6H PRN PRN Reason: SHORT OF BREATH/WHEEZING Albuterol/Ipratropium (Duoneb -) 1 amp NEB RQID [facility] Last Admin: 08/09/18 20:50 Dose: 1 amp Heparin Sodium (Porcine) (Heparin -) 5,000 unit SQ BID [facility] Last Admin: 08/09/18 22:30 Dose: 5,000 unit Methylprednisolone Sodium Succinate (Solu-Medrol -) 40 mg IVPUSH BID [facility] Last Admin: 08/09/18 22:30 Dose: 40 mg IMAGING: * CXR: Large heart, unfolded aorta, improvement in aeration since 07/07/18 * CTAP: Severely limited due to lack of contrast. Mod cardiomegaly, small pleural reactions at the bases. R base bronchiectasis w/ peribronchial consolidations. Small blebs and pleural changes. Cholelithiasis, possible wall thickening vs. pericholecystic fluid. Kidneys: Probable vascular calcificiations , cannot r/o small stones. * Renal U/s: No hydronephrosis seen. Kidneys unremarkable. Small amount of perihepatic ascites is noted. Cholelithiasis is seen. * CXR (08/10/18): Large heart, unfolded aorta, sternal sutures and clips and some congestive changes. Discrete infiltrate not seen. LILI granuloma. Some blunting possibly of R angle. Past Imaging * 07/06/18 Echo: moderate concntric left ventricular hypertrophy, right atrium moderate to severely dilated, severe tricuspid regurg, RV pressure is > 60 mmhg , LV sys fxn normal, RV moderately dilated, septal motion consistent with conduction abnormality ASSESSMENT/PLAN: 67F w/ PMHx of HTN, CAD s/p CABG in 2009, PVD with B/L LE stents, HIV, HEP C, COPD and CHF brought from [facility] after her daughter found her confused. NEURO -Pt is more awake and alert today; mildly confused although improved mentation. #Depression -Will reassess mental status and restart home meds PULM #Acute hypoxic hypercapneic respiratory failure likely 2/2 COPD exacerbation/ Diastolic CHF exacerbation -O2 sat improved to 100% on 3L; cont to monitor O2 sat -IVf discontinued overnight due to signs of fluid congestion, +crackles on exam -Duoneb/Albuterol -Solumedrol 40 mg IVP BID -Repeat ABG -Pt given one dose of Azithromycin; per ID carlos observe off abx at this time; Repeat CXR today showed no infiltrate -CXR noted above showed some congestive changes and possible blunting of R angle ; will hold fluids for now CV #Acute on chronic Diastolic CHF exacerbation -Torres in place. Strict I's and O's -Hold Lasix for now as pt seems to be hypovolemic #HTN-controlled -Hold home PO meds: Aldactone 25 mg, Losartan 50 BID -Will continue Coreg and Hydralazine; may increase Coreg if pt remains hypertensive #CAD s/p CABG -Per cardio, cont Plavix (allergic to aspirin) #Hx stents -Continue Plavix (allergic to aspirin) #Angina -Per cardio, cont Ranexa 500 mg BID #PVD s/p SFA stent; Stable. GI #Abdominal pain/diarrhea -Abdominal/Pelvis CT noted above; no signs of infectious process. Will observe off abx per ID. RENAL #Hyperkalemia; improving 4.9 today -Hold home meds: Losartan, Aldactone, Lasix -recheck BMP in AM #KRISTIAN; Likely from poor oral intake -Cr improved to 1.5 now -IVf discontinued as pt is showing signs of hypervolemia -Urine electrolytes remarkable for prerenal kidney disease -Kidney/bladder U/S ordered to r/o hydronephrosis -Avoid nephrotoxic drugs ID #HIV -Cont home PO meds -recent CD4 count 440 -followed by Dr. Hayden YUEN #Osteoporosis -Alendronate 70 mg once every Wednesday. FEN -no IVf -recheck lytes in AM; replete PRN -NPO until evaluated PROPHYLAXIS For DVT: On Heparin 5000 IU sq TID For GI: Ranitidine 150mg BID. Dispo -cont to monitor in ICU Visit type - Emergency Visit Emergency Visit: Yes ED Registration Date: 08/08/18 Care time: The patient presented to the Emergency Department on the above date and was hospitalized for further evaluation of their emergent condition. - New Patient This patient is new to me today: No - Critical Care Critical Care patient: Yes Total Critical Care Time (in minutes): 35 Critical Care Statement: The care of this patient involved high complexity decision making to prevent further life threatening deterioration of the patient 's condition and/or to evaluate & treat vital organ system(s) failure or risk of failure.
[2018-08-10] MEDS: ALBUTEROL SO4 2.5/IPRATROPIUM 0.5 INH SOL 3 ML VIAL.NEB. NEB SCH ×4 (09:04→21:45)
[2018-08-10] MEDS ORDERED: ASPIRIN 81 MG CHEWABLE TABLETS PO SCH (10:00)
[2018-08-10] MEDS ORDERED: PT OWN MED DRAWER 7, Y5N ONE (10:20)
[2018-08-10] MEDS: methylPREDNISolone NA SUCC 40 MG/1 ML VIAL IVPUSH SCH ×2 (10:30→21:25)
[2018-08-10] MEDS: HEPARIN NA (PORCINE) 5,000 UNITS/ML 1ML VIAL SQ SCH ×2 (10:34→21:24)
[2018-08-10] MEDS: CARVEDILOL 12.5 MG TABLET (FP) PO SCH ×2 (10:41→21:25)
[2018-08-10] MEDS: CLOPIDOGREL BISULFATE 75 MG TABLET (FP) PO SCH (10:41)
[2018-08-10] MEDS: RANOLAZINE E.R. 500 MG TABLET (FP) PO SCH ×2 (11:30→21:25)
[2018-08-10] MEDS ORDERED: LOSARTAN POTASSIUM 50 MG TABLET (FP) PO SCH (11:30)
--- NOTE | 2018-08-10 12:16 | PN ---
Teaching Attending Note Name of Resident: Petrona Dailey ATTENDING PHYSICIAN STATEMENT I saw and evaluated the patient. I reviewed the resident's note and discussed the case with the resident. I agree with the resident's findings and plan as documented. SUBJECTIVE: Pt seen and examined in the ICU. Remains somnolent but arousable to voice. Off BiPAP. Good urine output and improvement in renal function with IVF. OBJECTIVE: Vital Signs Period Temp Pulse Resp BP Sys/Buck Pulse Ox Last 24 Hr 98.1 F-98.6 F 72-95 10-22 102-176/58-103 94-98 Intake & Output 08/07/18 08/08/18 08/09/18 08/10/18 23:59 23:59 23:59 23:59 Intake Total 450 50 Output Total 2000 800 Balance -1550 -750 Weight 58.967 kg 55.6 kg Gen: somnolent but arousable Heart: RRR Lung: distant breath sounds Abd: soft, nontender Ext: no edema CBC, BMP 08/10/18 05:30 08/10/18 05:30 ABG Results ABG pH 7.24 (7.35-7.45) L 08/09/18 05:45 ABG pCO2 at Pt Temp 73.9 mmHg (35-45) H* 08/09/18 05:45 ABG pO2 at Pt Temp 66.0 mmHg (80-105) L 08/09/18 05:45 ABG HCO3 30.3 mmol/L (22-27) H 08/09/18 05:45 ABG O2 Sat (Measured) 87.5 % (95-98) L 08/09/18 05:45 ABG O2 Content 11.5 % vol (15-22) L 08/09/18 05:45 ABG Base Excess 2.1 meq/l (-2-2) H 08/09/18 05:45 Active Medications Albuterol Sulfate (Ventolin 0.083% Nebulizer Soln -) 1 amp NEB Q6H PRN PRN Reason: SHORT OF BREATH/WHEEZING Albuterol/Ipratropium (Duoneb -) 1 amp NEB RQID [facility] Last Admin: 08/10/18 11:18 Dose: Not Given Carvedilol (Coreg -) 12.5 mg PO BID [facility] Last Admin: 08/10/18 10:41 Dose: 12.5 mg Clopidogrel Bisulfate (Plavix -) 75 mg PO DAILY [facility] Last Admin: 08/10/18 10:41 Dose: 75 mg Heparin Sodium (Porcine) (Heparin -) 5,000 unit SQ BID [facility] Last Admin: 08/10/18 10:34 Dose: 5,000 unit Losartan Potassium (Cozaar -) 50 mg PO BID [facility] Methylprednisolone Sodium Succinate (Solu-Medrol -) 40 mg IVPUSH BID [facility] Last Admin: 08/10/18 10:30 Dose: 40 mg Ranolazine (Ranexa -) 500 mg PO BID [facility] ASSESSMENT AND PLAN: Acute on Chronic Hypoxic and Hypercapneic Respiratory Failure Acute COPD Exacerbation Acute Kidney Injury Hyperkalemia Hyponatremia Altered Mental Status LV Diastolic/Systolic Dysfunction Severe Pulmonary HTN CAD s/p CABG HIV PAD HTN - continue medrol - inhaled bronchodilators - O2 to keep Spo2 >90% - BiPAP as needed - monitor ABG - IVF as needed - monitor urine output, creatinine - monitor lytes - aspiration precautions - DVT prophylaxis - can monitor on floor pending ABG results critical care time spent in reviewing chart, evaluating patient and formulating plan 35 min
--- NOTE | 2018-08-10 13:02 | CONSULT ---
Consult Consult Specialty:: Nephrology Reason for Consultation:: KRISTIAN - History of Present Illness Chief Complaint: sent in from [place] for lethargy and decreased PO intake History of Present Illness: Pt is a 67 year old female with pmhx of COPD, CHF, HIV, CAD, cervical cancer and PVD who was sent to the ER with lethargy and decreased PO intake. She was found to be in renal failure and found to be hyperkalemic. SHe was admitted to the ICU for care. I was called to evaluate her for renal failure. She did respond to fluids and renal function improved. She remains confused. She is arousable. but does not know where she is. - History Source History Provided By: Medical Record - Past Medical History Cardio/Vascular: Yes: CAD, CHF, Pulmonary Hypertension, Other (PVD) Pulmonary: Yes: Asthma, COPD Hepatobiliary: Yes: Cholelithiasis, Hepatitis C Infectious Disease: Yes: HIV - Past Surgical History Past Surgical History: Yes: CABG, Stent (b/l LE stents ) - Alcohol/Substance Use Hx Alcohol Use: No History of Substance Use: reports: None - Smoking History Smoking history: Former smoker Have you smoked in the past 12 months: No Aproximately how many cigarettes per day: 5 If you are a former smoker, when did you quit?: May 2018 - Social History Usual Living Arrangement: With Child ADL: Support Services History of Recent Travel: No Home Medications - Allergies Allergies/Adverse Reactions: Allergies Allergy/AdvReac Type Severity Reaction Status Date / Time aspirin AdvReac Mild GI upset Verified 07/05/18 13:02 - Home Medications Home Medications: Ambulatory Orders Gabapentin [Neurontin -] 800 mg PO Q8H 04/04/18 Albuterol 0.083% Nebulizer Sun [Ventolin 0.083% Nebulizer Soln -] 1 amp NEB Q4H PRN #7 amp 04/11/18 Carvedilol [Coreg -] 12.5 mg PO BID #60 tablet 04/11/18 Losartan Potassium [Cozaar -] 50 mg PO BID #30 tablet 04/11/18 Naloxone HCl [Narcan] 4 mg NS ONCE PRN #1 spray 05/24/18 Acetaminophen 2 tab PO DAILY PRN #60 tablet 06/01/18 Ergocalciferol (Vitamin D2) [Vitamin D2] 50,000 unit PO Q7D #4 capsule 06/01/18 Cholecalciferol (Vitamin D3) [Vitamin D3] 2,000 unit PO DAILY 06/03/18 Fosamax 70 mg PO WEEKLY 06/03/18 Sodium Chloride [Saline Nose [place]] 1 - 2 sprays NS PRN #1 spray 06/03/18 Abacavir/Dolutegravir/Lamivudi [Triumeq 600-50-300 mg Tablet] 1 each PO DAILY # 30 tablet 06/08/18 Albuterol Sulfate Inhaler - [Ventolin HFA Inhaler -] 1 - 2 inh PO Q6H PRN #1 inhaler 06/08/18 Aspirin Coated [Ecotrin -] 81 mg PO DAILY #30 tablet.ec 06/08/18 Calcium Carbonate/Vitamin D3 [Calcium 500-Vit D3 200 Caplet] 1 tab PO DAILY #30 tablet 06/08/18 Clopidogrel Bisulfate [Plavix] 75 mg PO DAILY #30 tablet 06/08/18 Diphenhydramine [Benadryl Capsule -] 50 mg PO HS #30 capsule 06/08/18 Escitalopram Oxalate [Lexapro -] 10 mg PO DAILY #30 tablet 06/08/18 Ferrous Sulfate [Feosol] 325 mg PO BID #60 tablet 06/08/18 Fluticasone/Salmeterol [Advair Hfa 230-21 Mcg Inhaler] 2 puff IH BID #1 hfa.aer.ad 06/08/18 Multivitamin [One-Daily Multi-Vitamin] 1 each PO DAILY #30 tablet 06/08/18 Nicotine [Nicotrol Ns] 1 dose IH DAILY PRN #1 spray 06/08/18 Pantoprazole Sodium [Protonix -] 20 mg PO DAILY #30 tablet.ec 06/08/18 Ranolazine [Ranexa -] 500 mg PO BID #60 tab 06/08/18 Simvastatin 10 mg PO DAILY #30 tablet 06/08/18 hydrALAZINE HCL [Apresoline -] 50 mg PO TID #90 tablet 06/08/18 Morphine *Sr* [MS Contin -] 30 mg PO Q8H #90 tablet.er MDD 3 06/14/18 Furosemide [Lasix -] 40 mg PO DAILY #30 tablet 07/08/18 Spironolactone [Aldactone -] 25 mg PO DAILY #30 tablet 07/08/18 Family Disease History - Family Disease History Family Disease History: Heart Disease: Mother (, hx etoh), Sister (two - living), [place]: Sister, Other: Father (, hx etoh), Mother, Brother (two living - five - ? reason), Sister, Daughter (two adults) Review of Systems Unable to obtain ROS, reason: unable to obtain Physical Exam Vital Signs: Vital Signs Temperature 98.1 F 08/10/18 10:00 Pulse Rate 78 08/10/18 12:00 Respiratory Rate 20 08/10/18 10:00 Blood Pressure 157/88 08/10/18 12:00 O2 Sat by Pulse Oximetry (%) 98 08/10/18 11:17 Constitutional: Yes: No Distress Cardiovascular: Yes: S1, S2 Respiratory: Yes: On Nasal O2 Gastrointestinal: Yes: Soft Renal/: Yes: Torres Present Musculoskeletal: Yes: WNL Extremities: Yes: WNL Edema: No Neurological: Yes: Confusion Psychiatric: Yes: Agitated Labs: CBC, BMP 08/10/18 05:30 08/10/18 05:30 Laboratory Tests 07/07/18 07/08/18 08/08/18 06:30 06:00 18:42 Sodium Potassium BUN Creatinine 0.7 0.8 3.7 H Urine Protein Ur Random Sodium Influenza A (Rapid) Influenza B (Rapid) 08/08/18 08/08/18 08/09/18 20:30 20:39 04:00 Sodium Potassium BUN Creatinine 3.7 H Urine Protein 1+ H Ur Random Sodium Influenza A (Rapid) Negative Influenza B (Rapid) Negative 08/09/18 08/09/18 08/09/18 06:30 09:05 21:30 Sodium 129 L Potassium 5.6 H BUN Creatinine 2.9 H 2.0 H Urine Protein Ur Random Sodium < 18 L Influenza A (Rapid) Influenza B (Rapid) 08/10/18 05:30 Sodium 134 L Potassium BUN 94 H Creatinine 1.5 H Urine Protein Ur Random Sodium Influenza A (Rapid) Influenza B (Rapid) Imaging - Results Ultrasound: Report Reviewed Problem List - Problems (1) Acute renal failure Code(s): N17.9 - ACUTE KIDNEY FAILURE, UNSPECIFIED Qualifiers: Acute renal failure type: unspecified Qualified Code(s): N17.9 - Acute kidney failure, unspecified (2) Altered mental status, unspecified Code(s): R41.82 - ALTERED MENTAL STATUS, UNSPECIFIED Qualifiers: Altered mental status type: somnolence Qualified Code(s): R40.0 - Somnolence (3) CHF (congestive heart failure) Code(s): I50.9 - HEART FAILURE, UNSPECIFIED Qualifiers: Heart failure type: diastolic Heart failure chronicity: chronic Qualified Code(s): I50.32 - Chronic diastolic (congestive) heart failure (4) COPD with acute exacerbation Code(s): J44.1 - CHRONIC OBSTRUCTIVE PULMONARY DISEASE W (ACUTE) EXACERBATION (5) Hyperkalemia Code(s): E87.5 - HYPERKALEMIA Assessment/Plan Current Medications Generic Name Dose Route Start Last Admin Trade Name Freq PRN Reason Stop Dose Admin Albuterol Sulfate 1 amp 08/09/18 05:27 Ventolin 0.083% Nebulizer Soln - NEB Q6H PRN SHORT OF BREATH/WHEEZING Albuterol/Ipratropium 1 amp 08/09/18 08:00 08/10/18 11:18 Duoneb - NEB Not Given RQID [facility] Carvedilol 12.5 mg 08/10/18 10:00 08/10/18 10:41 Coreg - PO 12.5 mg BID [facility] Administration Clopidogrel Bisulfate 75 mg 08/10/18 10:00 08/10/18 10:41 Plavix - PO 75 mg DAILY [facility] Administration Heparin Sodium (Porcine) 5,000 unit 08/09/18 10:00 08/10/18 10:34 Heparin - SQ 5,000 unit BID [facility] Administration Losartan Potassium 50 mg 08/10/18 11:30 Cozaar - PO BID [facility] Methylprednisolone Sodium Succinate 40 mg 08/09/18 12:04 08/10/18 10:30 Solu-Medrol - IVPUSH 40 mg BID [facility] Administration Ranolazine 500 mg 08/10/18 11:30 Ranexa - PO BID [facility] Impression 1. KRISTIAN 2. Hyperkalemia 3. HIV 4. hyponatremia 5. altered mental status 6. pulm HTN 7. htn 8. pvd 9. resp acidosis Plan - renal function is improving - potassium improving - hold losartan for now - monitor mental status - urine sodium was low which is consistent with prerenal disease - discussed with ICU team
[2018-08-10 13:50] LABS: ARTERIAL BLD GAS O2 SATURATION 91.4 % (95-98); ARTERIAL BLOOD GAS BASE EXCESS 7.5 meq/l (-2-2); ARTERIAL BLOOD GAS PO2 67.8 mmHg (80-105); ARTERIAL BLOOD GAS pH 7.37 (7.35-7.45)
[2018-08-10 13:51] LABS: ALLENS TEST POSITIVE
[2018-08-10] MEDS: ABACAVIR/DOLUTEGRAVIR/LAMIVUDI (TRIUMEQ) TABLET -NF PO SCH (15:00)
[2018-08-10] MEDS: hydrALAZINE HCL 50 MG TABLET (FP) PO SCH ×3 (15:30→21:25)
--- NOTE | 2018-08-10 15:54 | PN ---
Progress Note, Physician History of Present Illness: Confused and agitated earlier this AM, now breathing comfortably. - Current Medication List Current Medications: Active Medications Abacavir/Dolutegravir/Lamivudine (Triumeq (Non-Formulary)) 1 each PO DAILY [facility] Albuterol Sulfate (Ventolin 0.083% Nebulizer Soln -) 1 amp NEB Q6H PRN PRN Reason: SHORT OF BREATH/WHEEZING Albuterol/Ipratropium (Duoneb -) 1 amp NEB RQID [facility] Last Admin: 08/10/18 15:47 Dose: Not Given Carvedilol (Coreg -) 12.5 mg PO BID [facility] Last Admin: 08/10/18 10:41 Dose: 12.5 mg Clopidogrel Bisulfate (Plavix -) 75 mg PO DAILY [facility] Last Admin: 08/10/18 10:41 Dose: 75 mg Heparin Sodium (Porcine) (Heparin -) 5,000 unit SQ BID [facility] Last Admin: 08/10/18 10:34 Dose: 5,000 unit Hydralazine HCl (Apresoline -) 50 mg PO TID [facility] Methylprednisolone Sodium Succinate (Solu-Medrol -) 40 mg IVPUSH BID [facility] Last Admin: 08/10/18 10:30 Dose: 40 mg Ranolazine (Ranexa -) 500 mg PO BID [facility] - Objective Vital Signs: Vital Signs Temperature 94.2 F L 08/10/18 14:00 Pulse Rate 72 08/10/18 14:00 Respiratory Rate 20 08/10/18 14:00 Blood Pressure 158/74 08/10/18 14:00 O2 Sat by Pulse Oximetry (%) 95 08/10/18 15:47 Constitutional: Yes: No Distress, Calm, Thin Neck: Yes: Supple Cardiovascular: Yes: Regular Rate and Rhythm Respiratory: Yes: Regular, On Nasal O2 Gastrointestinal: Yes: Normal Bowel Sounds, Soft Edema: No Labs: CBC, BMP 08/10/18 05:30 08/10/18 05:30 INR, PTT INR 1.49 (0.83-1.09) H 08/08/18 19:37 Problem List - Problems (1) Acute renal failure Code(s): N17.9 - ACUTE KIDNEY FAILURE, UNSPECIFIED Qualifiers: Acute renal failure type: unspecified Qualified Code(s): N17.9 - Acute kidney failure, unspecified (2) Altered mental status, unspecified Code(s): R41.82 - ALTERED MENTAL STATUS, UNSPECIFIED Qualifiers: Altered mental status type: somnolence Qualified Code(s): R40.0 - Somnolence (3) CHF (congestive heart failure) Code(s): I50.9 - HEART FAILURE, UNSPECIFIED Qualifiers: Heart failure type: diastolic Heart failure chronicity: chronic Qualified Code(s): I50.32 - Chronic diastolic (congestive) heart failure (4) COPD with acute exacerbation Code(s): J44.1 - CHRONIC OBSTRUCTIVE PULMONARY DISEASE W (ACUTE) EXACERBATION (5) Elevated troponin I level Code(s): R74.8 - ABNORMAL LEVELS OF OTHER SERUM ENZYMES (6) Hyperkalemia Code(s): E87.5 - HYPERKALEMIA (7) Respiratory acidosis Code(s): E87.2 - ACIDOSIS (8) CAD (coronary artery disease) Code(s): I25.10 - ATHSCL HEART DISEASE OF [place] CORONARY ARTERY W/O ANG PCTRS Qualifiers: Coronary Disease-Associated Artery/Lesion type: [place] artery [place] vs. transplanted heart: [place] heart Associated angina: without angina Qualified Code(s): I25.10 - Atherosclerotic heart disease of [place] coronary artery without angina pectoris (9) Asymptomatic cholelithiasis Code(s): K80.20 - CALCULUS OF GALLBLADDER W/O CHOLECYSTITIS W/O OBSTRUCTION (10) Cor pulmonale, chronic Code(s): I27.81 - COR PULMONALE (CHRONIC) (11) HIV Code(s): Z21 - ASYMPTOMATIC HUMAN IMMUNODEFICIENCY VIRUS INFECTION STATUS (12) HTN (hypertension) Code(s): I10 - ESSENTIAL (PRIMARY) HYPERTENSION Qualifiers: Hypertension type: essential hypertension Qualified Code(s): I10 - Essential (primary) hypertension (13) Hyperlipidemia Code(s): E78.5 - HYPERLIPIDEMIA, UNSPECIFIED Qualifiers: Hyperlipidemia type: pure hypercholesterolemia Qualified Code(s): E78.00 - Pure hypercholesterolemia, unspecified; E78.0 - Pure hypercholesterolemia (14) PVD (peripheral vascular disease) Code(s): I73.9 - PERIPHERAL VASCULAR DISEASE, UNSPECIFIED (15) S/P CABG (coronary artery bypass graft) Code(s): Z95.1 - PRESENCE OF AORTOCORONARY BYPASS GRAFT Assessment/Plan Echo: 07/06/2018 Mod cLVH with preserved LV fxn, mod-severe RITIKA, severe TR, RVSP >60, RV volume overload with mod decreased RV fxn 1. Acute on chronic hypercapneic/hypoxemic respiratory failure, related to 2. Acute exacerbation of chronic obstructive pulmonary disease 3. Right Heart Failure/Volume Overload with Severe Pulmonary HTN 4. Diastolic dysfunction 5. CAD s/p CABG, demand ischemia 7. HTN 8. Hypercholesterolemia 9. HIV, Hep C 10. Smoker 11. PAD s/p SFA stent 12. Pre-renal Acute on CKD improving, hyperkalemia, hyponatremia 13. Toxic metabolic encephelopathy 14. Cholelithiasis PLAN: 1. Holding oral diuretics, losartan and judicious IVF with monitor renal recovery and electrolytes, trops downtrending 2. Continue ASA 81 qd, carvedilol 12.5 bid, Plavix 75 qd, Lipitor 10 qd, Ranexa 500 bid 3. IV steroid, BD, O2 to keep SpO2 88-92%, bipap as needed, monitor ABG. off antibiotics as per the primary team 4. DVT prophylaxis, HAART -
[2018-08-10] MEDS ORDERED: HALOPERIDOL LACTATE 5 MG/ML IM ONE ×2 (16:52→17:00)
--- NOTE | 2018-08-10 18:00 | PN ---
Progress Note, Physician History of Present Illness: intubated - Current Medication List Current Medications: Active Medications Abacavir/Dolutegravir/Lamivudine (Triumeq (Non-Formulary)) 1 each PO DAILY [facility] Albuterol Sulfate (Ventolin 0.083% Nebulizer Soln -) 1 amp NEB Q6H PRN PRN Reason: SHORT OF BREATH/WHEEZING Albuterol/Ipratropium (Duoneb -) 1 amp NEB RQID [facility] Last Admin: 08/10/18 15:47 Dose: Not Given Carvedilol (Coreg -) 12.5 mg PO BID [facility] Last Admin: 08/10/18 10:41 Dose: 12.5 mg Clopidogrel Bisulfate (Plavix -) 75 mg PO DAILY [facility] Last Admin: 08/10/18 10:41 Dose: 75 mg Heparin Sodium (Porcine) (Heparin -) 5,000 unit SQ BID [facility] Last Admin: 08/10/18 10:34 Dose: 5,000 unit Hydralazine HCl (Apresoline -) 50 mg PO TID [facility] Last Admin: 08/10/18 16:01 Dose: Not Given Methylprednisolone Sodium Succinate (Solu-Medrol -) 40 mg IVPUSH BID [facility] Last Admin: 08/10/18 10:30 Dose: 40 mg Ranolazine (Ranexa -) 500 mg PO BID [facility] Last Admin: 08/10/18 11:30 Dose: 500 mg - Objective Vital Signs: Vital Signs Temperature 94.2 F L 08/10/18 14:00 Pulse Rate 72 08/10/18 14:00 Respiratory Rate 20 08/10/18 14:00 Blood Pressure 158/74 08/10/18 14:00 O2 Sat by Pulse Oximetry (%) 95 08/10/18 15:47 Constitutional: Yes: No Distress HENT: Yes: Atraumatic Neck: Yes: Supple Cardiovascular: Yes: Regular Rate and Rhythm Respiratory: Yes: Rhonchi Gastrointestinal: Yes: Normal Bowel Sounds Extremities: Yes: WNL Neurological: Yes: Alert Labs: CBC, BMP 08/10/18 05:30 08/10/18 05:30 INR, PTT INR 1.49 (0.83-1.09) H 08/08/18 19:37 Problem List - Problems (1) Acute renal failure Assessment/Plan: on iv hydration monitor\ Code(s): N17.9 - ACUTE KIDNEY FAILURE, UNSPECIFIED Qualifiers: Acute renal failure type: unspecified Qualified Code(s): N17.9 - Acute kidney failure, unspecified (2) Altered mental status, unspecified Code(s): R41.82 - ALTERED MENTAL STATUS, UNSPECIFIED Qualifiers: Altered mental status type: somnolence Qualified Code(s): R40.0 - Somnolence (3) COPD with acute exacerbation Assessment/Plan: steroids duo nebs Code(s): J44.1 - CHRONIC OBSTRUCTIVE PULMONARY DISEASE W (ACUTE) EXACERBATION (4) Elevated troponin I level Code(s): R74.8 - ABNORMAL LEVELS OF OTHER SERUM ENZYMES (5) Hyperkalemia Code(s): E87.5 - HYPERKALEMIA (6) COPD (chronic obstructive pulmonary disease) Code(s): J44.9 - CHRONIC OBSTRUCTIVE PULMONARY DISEASE, UNSPECIFIED Qualifiers: (7) HIV Assessment/Plan: continue home meds Code(s): Z21 - ASYMPTOMATIC HUMAN IMMUNODEFICIENCY VIRUS INFECTION STATUS (8) HTN (hypertension) Assessment/Plan: monitor on meds Code(s): I10 - ESSENTIAL (PRIMARY) HYPERTENSION Qualifiers: Hypertension type: essential hypertension Qualified Code(s): I10 - Essential (primary) hypertension (9) Hyperlipidemia Code(s): E78.5 - HYPERLIPIDEMIA, UNSPECIFIED Qualifiers: Hyperlipidemia type: pure hypercholesterolemia Qualified Code(s): E78.00 - Pure hypercholesterolemia, unspecified; E78.0 - Pure hypercholesterolemia (10) PVD (peripheral vascular disease) Code(s): I73.9 - PERIPHERAL VASCULAR DISEASE, UNSPECIFIED (11) CHF (congestive heart failure) Code(s): I50.9 - HEART FAILURE, UNSPECIFIED Qualifiers: Heart failure type: diastolic Heart failure chronicity: chronic Qualified Code(s): I50.32 - Chronic diastolic (congestive) heart failure
[2018-08-10] MEDS ORDERED: LORazepam 2 MG/ML SDV VIAL ONE (18:13)
[2018-08-10] MEDS ORDERED: LORazepam 2 MG/ML SDV VIAL IVPUSH ONE (18:15)
[2018-08-10] MEDS ORDERED: FUROSEMIDE 40 MG/4 ML INJECTABLE VIAL IVPUSH ONE (18:42)
[2018-08-10] MEDS ORDERED: FUROSEMIDE 40 MG/4 ML INJECTABLE VIAL ONE (18:45)
[2018-08-10] MEDS ORDERED: PROPOFOL 1,000,000 MCG/100 ML VIAL ONE (19:33)
--- NOTE | 2018-08-10 19:33 | PN ---
Progress Note (short form) - Note Progress Note: Anesthesiologist note Called for intubation. Pat with multiple systemic diseases in respiratory failure. Agitated. Intubated. Sedated on Vent. see anesthesia record.
--- NOTE | 2018-08-10 19:46 | PN ---
Progress Note (short form) - Note Progress Note: Patient started to get agitated and restless with sinus tachycardia and elevated blood pressures. She also refused to keep the bipap on and was desaturating. She initially received haldol but persisted with the restlessness, unable to stay still in bed. Pt reported non-specific abdominal discomfort while restless with a soft abdomen on palpation. She agreed to nasal cannular oxygen supplementation and would not tolerate any form of mask. After she discontinued bipap, she received 1mg iv of ativan but remained restless. Orders for abg, CXR, and full blood work was put in but pt appeared to be worsening in mental status and was intubated to protect her airway. She was put on propofol drip, which was escalated rapidly, so fentanyl was added.
[2018-08-10] MEDS ORDERED: fentaNYL CITRATE 250 MCG/5 ML VIAL ONE (19:53)
[2018-08-10] MEDS: PROPOFOL 1,000,000 MCG/100 ML VIAL IVPB SCH (20:12)
[2018-08-10] MEDS: FENTANYL INJECTION 500 MCG in DEXTROSE 5%-WATER - 90 ML IVPB SCH (20:18)
[2018-08-10 21:01] LABS: HEMATOCRIT 28.9 % (32.4-45.2); HEMOGLOBIN 9.6 GM/dL (10.7-15.3); LYMPH % 2.7 % (8-40); MCHC 33.1 g/dl (32.0-36.0); MEAN CELL VOLUME 93.7 fl (80-96); MEAN PLT VOLUME 6.9 fl (7.5-11.1); MONO % 18.1 % (3.8-10.2); NEUT % 79.2 % (42.8-82.8); PLATELET COUNT 353 K/MM3 (134-434); RBC 3.08 M/mm3 (3.60-5.2); RDW 14.6 % (11.6-15.6); WHITE BLOOD COUNT 13.6 K/mm3 (4.0-10.0)
[2018-08-10 21:39] LABS: ALBUMIN 3.6 g/dl (3.4-5.0); ALK PHOS 71 U/L (45-117); BILIRUBIN,TOTAL 0.8 mg/dL (0.2-1); BLOOD UREA NITROGEN 75 mg/dL (7-18); CHLORIDE 100 mmol/L (98-107); CO2 34 mmol/L (21-32); CREATININE 1.3 mg/dL (0.55-1.3); GLUCOSE,RANDOM 134 mg/dL (74-106); MAGNESIUM 2.6 mg/dL (1.8-2.4); PHOSPHOROUS 3.5 mg/dL (2.5-4.9); POTASSIUM 4.8 mmol/L (3.5-5.1); SGOT/AST 65 U/L (15-37); SGPT/ALT 43 U/L (13-61); SODIUM 141 mmol/L (136-145); TOT PROT 7.6 g/dl (6.4-8.2)
[2018-08-10 21:46] LABS: ANION GAP 6 MMOL/L (8-16)
[2018-08-10] MEDS ORDERED: ATORVASTATIN CA 10 MG TABLET (FP) PO SCH (22:00)
[2018-08-10 22:40] LABS: ARTERIAL BLD GAS O2 SATURATION 81.6 % (95-98); ARTERIAL BLOOD GAS BASE EXCESS 7.6 meq/l (-2-2); ARTERIAL BLOOD GAS PO2 52.9 mmHg (80-105); ARTERIAL BLOOD GAS pH 7.33 (7.35-7.45)
[2018-08-10 22:41] LABS: ALLENS TEST POSITIVE
[2018-08-10 22:43] LABS: ARTERIAL BLOOD GAS PCO2 67.9 mmHg (35-45)
[2018-08-11] MEDS: PROPOFOL 1,000,000 MCG/100 ML VIAL IVPB SCH ×4 (01:00→23:31)
[2018-08-11] MEDS: FENTANYL INJECTION 500 MCG in DEXTROSE 5%-WATER - 90 ML IVPB SCH ×5 (02:34→23:30)
[2018-08-11] MEDS: hydrALAZINE HCL 50 MG TABLET (FP) PO SCH (06:15)
[2018-08-11] MEDS ORDERED: METOPROLOL TARTRATE 5 MG/5 ML VIAL IVPUSH ONE (06:18)
[2018-08-11] MEDS ORDERED: fentaNYL CITRATE 250 MCG/5 ML VIAL ONE ×4 (06:24→22:17)
[2018-08-11 06:33] LABS: BASO % 0.1 % (0-2.0); HEMATOCRIT 28.8 % (32.4-45.2); HEMOGLOBIN 9.7 GM/dL (10.7-15.3); LYMPH % 5.2 % (8-40); MCH 31.5 pg (25.7-33.7); MCHC 33.8 g/dl (32.0-36.0); MEAN CELL VOLUME 92.9 fl (80-96); MEAN PLT VOLUME 6.8 fl (7.5-11.1); NEUT % 79.7 % (42.8-82.8); PLATELET COUNT 316 K/MM3 (134-434); RDW 14.6 % (11.6-15.6); WHITE BLOOD COUNT 10.6 K/mm3 (4.0-10.0)
[2018-08-11 07:13] LABS: ALBUMIN 3.4 g/dl (3.4-5.0); ALK PHOS 67 U/L (45-117); ANION GAP 7 MMOL/L (8-16); BILIRUBIN,TOTAL 0.8 mg/dL (0.2-1); BLOOD UREA NITROGEN 67 mg/dL (7-18); CALCIUM 9.2 mg/dL (8.5-10.1); CHLORIDE 102 mmol/L (98-107); CO2 34 mmol/L (21-32); CREATININE 1.1 mg/dL (0.55-1.3); GLUCOSE,RANDOM 127 mg/dL (74-106); MAGNESIUM 2.3 mg/dL (1.8-2.4); PHOSPHOROUS 3.3 mg/dL (2.5-4.9); POTASSIUM 4.6 mmol/L (3.5-5.1); SGOT/AST 44 U/L (15-37); SGPT/ALT 35 U/L (13-61); SODIUM 143 mmol/L (136-145); TOT PROT 6.8 g/dl (6.4-8.2)
--- NOTE | 2018-08-11 07:36 | PN ---
Physical Exam: SUBJECTIVE: Patient seen and examined at bedside. Pt was intubated since yesterday evening due to saturation, agitation, worsening mental status. No acute events overnight. OBJECTIVE: Vital Signs Period Temp Pulse Resp BP Sys/Buck Pulse Ox Last 24 Hr 94.2 F-98.7 F 72-103 14-27 142-180/72-103 95-100 GENERAL: Intubated and sedated. HEENT: AT/NC. EOMI. Dry mucus membranes. NECK: Trachea midline, full range of motion, supple. LUNGS: mild b/l crackles. No accessory muscle use. HEART: RRR. Normal S1, S2. No murmurs noted. ABDOMEN: soft, NT/ND. hypoactive bowel sounds EXTREMITIES: 2+ pulses, warm, well-perfused, no edema. NEUROLOGICAL: Unable to assess. CBC, BMP 08/11/18 05:30 08/11/18 05:30 ABG Results ABG pH 7.33 (7.35-7.45) L 08/10/18 22:30 ABG pCO2 at Pt Temp 67.9 mmHg (35-45) H 08/10/18 22:30 ABG pO2 at Pt Temp 52.9 mmHg (80-105) L 08/10/18 22:30 ABG HCO3 34.4 mmol/L (22-27) H 08/10/18 22:30 ABG O2 Sat (Measured) 81.6 % (95-98) L 08/10/18 22:30 ABG O2 Content 9.9 % vol (15-22) L* 08/10/18 22:30 ABG Base Excess 7.6 meq/l (-2-2) H 08/10/18 22:30 Active Medications Abacavir/Dolutegravir/Lamivudine (Triumeq (Non-Formulary)) 1 each PO DAILY [facility] Last Admin: 08/10/18 15:00 Dose: 1 each Albuterol Sulfate (Ventolin 0.083% Nebulizer Soln -) 1 amp NEB Q6H PRN PRN Reason: SHORT OF BREATH/WHEEZING Last Admin: 08/10/18 18:15 Dose: 1 amp Albuterol/Ipratropium (Duoneb -) 1 amp NEB RQID [facility] Last Admin: 08/10/18 21:45 Dose: 1 amp Carvedilol (Coreg -) 12.5 mg PO BID [facility] Last Admin: 08/10/18 21:25 Dose: Not Given Clopidogrel Bisulfate (Plavix -) 75 mg PO DAILY [facility] Last Admin: 08/10/18 10:41 Dose: 75 mg Heparin Sodium (Porcine) (Heparin -) 5,000 unit SQ BID [facility] Last Admin: 08/10/18 21:24 Dose: 5,000 unit Hydralazine HCl (Apresoline -) 50 mg PO TID [facility] Last Admin: 08/11/18 06:15 Dose: Not Given Propofol (Diprivan -) 1,000,000 mcg in 100 mls @ 1.66 mls/hr IVPB TITR [facility]; Protocol Last Titration: 08/11/18 06:29 Dose: 30 mcg/kg/min, 9.961 mls/hr Fentanyl 500 mcg/ Dextrose 100 mls @ 5 mls/hr IVPB TITR [facility]; Protocol Last Admin: 08/11/18 06:29 Dose: 100 mcg/hr, 20 mls/hr Methylprednisolone Sodium Succinate (Solu-Medrol -) 40 mg IVPUSH BID [facility] Last Admin: 08/10/18 21:25 Dose: 40 mg Ranolazine (Ranexa -) 500 mg PO BID [facility] Last Admin: 08/10/18 21:25 Dose: Not Given IMAGING: * CXR: Large heart, unfolded aorta, improvement in aeration since 07/07/18 * CTAP: Severely limited due to lack of contrast. Mod cardiomegaly, small pleural reactions at the bases. R base bronchiectasis w/ peribronchial consolidations. Small blebs and pleural changes. Cholelithiasis, possible wall thickening vs. pericholecystic fluid. Kidneys: Probable vascular calcificiations , cannot r/o small stones. * Renal U/s: No hydronephrosis seen. Kidneys unremarkable. Small amount of perihepatic ascites is noted. Cholelithiasis is seen. * CXR (08/10/18): Large heart, unfolded aorta, sternal sutures and clips and some congestive changes. Discrete infiltrate not seen. LILI granuloma. Some blunting possibly of R angle. Past Imaging * 07/06/18 Echo: moderate concntric left ventricular hypertrophy, right atrium moderate to severely dilated, severe tricuspid regurg, RV pressure is > 60 mmhg , LV sys fxn normal, RV moderately dilated, septal motion consistent with conduction abnormality ASSESSMENT/PLAN: 67F w/ PMHx of HTN, CAD s/p CABG in 2009, PVD with B/L LE stents, HIV, HEP C, COPD and CHF brought from [facility] after her daughter found her confused. NEURO -Intubated and sedated. -Propofol and Fentanyl drip. #Depression -Hold home meds due to mental status; pt is also currently sedated PULM #Acute hypoxic hypercapneic respiratory failure likely 2/2 COPD exacerbation/ Diastolic CHF exacerbation -Currently intubated and sedated. -Lighten sedation in AM; spontaneous breathing trials -Duoneb/Albuterol -Solumedrol 40 mg IVP BID -repeat ABG in AM CV #Acute on chronic Diastolic CHF exacerbation -Torres in place. Strict I's and O's -Hold Lasix for now as pt seems to be hypovolemic #HTN-uncontrolled -Per renal, OK to cont home meds: Aldactone 25 mg, Losartan 50 BID, Hydralazine 50 TID -cont to monitor BP and K+ while on diuretics #CAD s/p CABG -Per cardio, cont Plavix (allergic to aspirin) #Hx stents -Continue Plavix (allergic to aspirin) #Angina -Per cardio, cont Ranexa 500 mg BID #PVD s/p SFA stent; Stable. - GI #Abdominal pain/diarrhea -Abdominal/Pelvis CT noted above; no signs of infectious process. Will observe off abx per ID. RENAL #Hyperkalemia; improving 4.9 today -Per nephro, can resume home meds -recheck BMP in AM #KRISTIAN; Likely from poor oral intake -Cr improved to 1.1 now -Urine electrolytes remarkable for prerenal kidney injury -Kidney/bladder U/S ordered to r/o hydronephrosis -Avoid nephrotoxic drugs ID #HIV -Cont home PO meds -recent CD4 count 440 -Per ID, observe off abx MSK #Osteoporosis -Alendronate 70 mg once every Wednesday. FEN -no IVf -recheck lytes in AM; replete PRN -Tube feeds started PROPHYLAXIS For DVT: On Heparin 5000 IU sq TID For GI: Ranitidine 150mg BID. Dispo -cont to monitor in ICU Visit type - Emergency Visit Emergency Visit: Yes ED Registration Date: 08/08/18 Care time: The patient presented to the Emergency Department on the above date and was hospitalized for further evaluation of their emergent condition. - New Patient This patient is new to me today: No - Critical Care Critical Care patient: Yes Total Critical Care Time (in minutes): 35 Critical Care Statement: The care of this patient involved high complexity decision making to prevent further life threatening deterioration of the patient 's condition and/or to evaluate & treat vital organ system(s) failure or risk of failure.
[2018-08-11] MEDS: ALBUTEROL SO4 2.5/IPRATROPIUM 0.5 INH SOL 3 ML VIAL.NEB. NEB SCH ×4 (08:54→21:20)
[2018-08-11] MEDS: methylPREDNISolone NA SUCC 40 MG/1 ML VIAL IVPUSH SCH ×2 (09:42→21:28)
[2018-08-11] MEDS: CLOPIDOGREL BISULFATE 75 MG TABLET (FP) PO SCH (09:42)
[2018-08-11] MEDS: CARVEDILOL 12.5 MG TABLET (FP) PO SCH ×2 (09:42→21:27)
[2018-08-11] MEDS: RANOLAZINE E.R. 500 MG TABLET (FP) PO SCH ×2 (09:42→21:28)
[2018-08-11] MEDS: ABACAVIR/DOLUTEGRAVIR/LAMIVUDI (TRIUMEQ) TABLET -NF PO SCH (09:42)
[2018-08-11] MEDS: HEPARIN NA (PORCINE) 5,000 UNITS/ML 1ML VIAL SQ SCH ×2 (10:56→21:27)
[2018-08-11 11:07] LABS: ARTERIAL BLD GAS O2 SATURATION 97.4 % (95-98); ARTERIAL BLOOD GAS PCO2 64.4 mmHg (35-45); ARTERIAL BLOOD GAS PO2 101 mmHg (80-105); ARTERIAL BLOOD GAS pH 7.36 (7.35-7.45)
[2018-08-11 11:12] LABS: ALLENS TEST POSITIVE
--- NOTE | 2018-08-11 11:13 | PN ---
Progress Note, Physician History of Present Illness: SEDATED ON VENTILATOR AFEBRILE WBC 10.6 AZOTEMIA IMPROVED - Current Medication List Current Medications: Active Medications Abacavir/Dolutegravir/Lamivudine (Triumeq (Non-Formulary)) 1 each PO DAILY [facility] Last Admin: 08/11/18 09:42 Dose: Not Given Albuterol Sulfate (Ventolin 0.083% Nebulizer Soln -) 1 amp NEB Q6H PRN PRN Reason: SHORT OF BREATH/WHEEZING Last Admin: 08/10/18 18:15 Dose: 1 amp Albuterol/Ipratropium (Duoneb -) 1 amp NEB RQID [facility] Last Admin: 08/11/18 08:54 Dose: 1 amp Carvedilol (Coreg -) 12.5 mg PO BID [facility] Last Admin: 08/11/18 09:42 Dose: Not Given Clopidogrel Bisulfate (Plavix -) 75 mg PO DAILY [facility] Last Admin: 08/11/18 09:42 Dose: Not Given Heparin Sodium (Porcine) (Heparin -) 5,000 unit SQ BID [facility] Last Admin: 08/11/18 10:56 Dose: 5,000 unit Hydralazine HCl (Apresoline -) 50 mg PO TID [facility] Last Admin: 08/11/18 06:15 Dose: Not Given Propofol (Diprivan -) 1,000,000 mcg in 100 mls @ 1.66 mls/hr IVPB TITR [facility]; Protocol Last Titration: 08/11/18 06:29 Dose: 30 mcg/kg/min, 9.961 mls/hr Fentanyl 500 mcg/ Dextrose 100 mls @ 5 mls/hr IVPB TITR [facility]; Protocol Last Admin: 08/11/18 06:29 Dose: 100 mcg/hr, 20 mls/hr Methylprednisolone Sodium Succinate (Solu-Medrol -) 40 mg IVPUSH BID [facility] Last Admin: 08/11/18 09:42 Dose: 40 mg Ranolazine (Ranexa -) 500 mg PO BID [facility] Last Admin: 08/11/18 09:42 Dose: Not Given - Objective Vital Signs: Vital Signs Temperature 98.1 F 08/11/18 10:00 Pulse Rate 77 08/11/18 10:00 Respiratory Rate 15 08/11/18 10:00 Blood Pressure 186/100 H 08/11/18 10:00 O2 Sat by Pulse Oximetry (%) 100 08/11/18 09:00 Constitutional: Yes: No Distress Cardiovascular: Yes: Regular Rate and Rhythm, Tachycardia, S1, S2 Respiratory: Yes: Mechanically Ventilated Gastrointestinal: Yes: Normal Bowel Sounds, Soft. No: Tenderness Edema: No Labs: CBC, BMP 08/11/18 05:30 08/11/18 05:30 INR, PTT INR 1.49 (0.83-1.09) H 08/08/18 19:37 Assessment/Plan ACUTE RESPIRATORY FAILURE COPD EXACERBATION AZOTEMIA IMPROVED HIV STABLE CONTINUE VENTILATORY SUPPORT OBSERVE OFF ANTIBIOTICS
--- NOTE | 2018-08-11 11:28 | PN ---
Progress Note, [employer] - Note Progress Note: Order received. Pt intubated; assessment deferred.
--- NOTE | 2018-08-11 11:47 | EKG ---
Test Reason : Blood Pressure : / mmHG Vent. Rate : 079 BPM Atrial Rate : 079 BPM P-R Int : 138 ms QRS Dur : 110 ms QT Int : 404 ms P-R-T Axes : 079 044 076 degrees QTc Int : 463 ms NORMAL SINUS RHYTHM POSSIBLE LEFT ATRIAL ENLARGEMENT BORDERLINE ECG WHEN COMPARED WITH ECG OF 08-AUG-2018 18:52, NO SIGNIFICANT CHANGE WAS FOUND Confirmed by LOUISE YAP MD ([id number]) on 08/11/2018 11:46:52 AM Referred By: FRANSICO ISSA DR Confirmed By:LOUISE YAP MD
[2018-08-11] MEDS ORDERED: hydrALAZINE HCL 20 MG/ML VIAL IVPUSH PRN (11:54)
--- NOTE | 2018-08-11 12:08 | PN ---
Progress Note, Physician History of Present Illness: Sedated and intubated on ventilator support, hemodynamics stable. - Current Medication List Current Medications: Active Medications Abacavir/Dolutegravir/Lamivudine (Triumeq (Non-Formulary)) 1 each PO DAILY [facility] Last Admin: 08/11/18 09:42 Dose: Not Given Albuterol Sulfate (Ventolin 0.083% Nebulizer Soln -) 1 amp NEB Q6H PRN PRN Reason: SHORT OF BREATH/WHEEZING Last Admin: 08/10/18 18:15 Dose: 1 amp Albuterol/Ipratropium (Duoneb -) 1 amp NEB RQID [facility] Last Admin: 08/11/18 11:25 Dose: 1 amp Carvedilol (Coreg -) 12.5 mg PO BID [facility] Last Admin: 08/11/18 09:42 Dose: Not Given Clopidogrel Bisulfate (Plavix -) 75 mg PO DAILY [facility] Last Admin: 08/11/18 09:42 Dose: Not Given Heparin Sodium (Porcine) (Heparin -) 5,000 unit SQ BID [facility] Last Admin: 08/11/18 10:56 Dose: 5,000 unit Hydralazine HCl (Apresoline Injection -) 20 mg IVPUSH Q8H PRN PRN Reason: HYPERTENSION Propofol (Diprivan -) 1,000,000 mcg in 100 mls @ 1.66 mls/hr IVPB TITR [facility]; Protocol Last Titration: 08/11/18 06:29 Dose: 30 mcg/kg/min, 9.961 mls/hr Fentanyl 500 mcg/ Dextrose 100 mls @ 5 mls/hr IVPB TITR [facility]; Protocol Last Admin: 08/11/18 06:29 Dose: 100 mcg/hr, 20 mls/hr Methylprednisolone Sodium Succinate (Solu-Medrol -) 40 mg IVPUSH BID [facility] Last Admin: 08/11/18 09:42 Dose: 40 mg Ranolazine (Ranexa -) 500 mg PO BID [facility] Last Admin: 08/11/18 09:42 Dose: Not Given - Objective Vital Signs: Vital Signs Temperature 98.1 F 08/11/18 10:00 Pulse Rate 77 08/11/18 10:00 Respiratory Rate 16 08/11/18 11:24 Blood Pressure 186/100 H 08/11/18 10:00 O2 Sat by Pulse Oximetry (%) 100 08/11/18 09:00 Constitutional: Yes: No Distress, Calm, Thin Neck: Yes: Supple Cardiovascular: Yes: Regular Rate and Rhythm Respiratory: Yes: Intubated, Mechanically Ventilated, Rhonchi Gastrointestinal: Yes: Soft, Hypoactive Bowel Sounds Edema: No Labs: CBC, BMP 08/11/18 05:30 08/11/18 05:30 INR, PTT INR 1.49 (0.83-1.09) H 08/08/18 19:37 Problem List - Problems (1) Acute renal failure Code(s): N17.9 - ACUTE KIDNEY FAILURE, UNSPECIFIED Qualifiers: Acute renal failure type: unspecified Qualified Code(s): N17.9 - Acute kidney failure, unspecified (2) Altered mental status, unspecified Code(s): R41.82 - ALTERED MENTAL STATUS, UNSPECIFIED Qualifiers: Altered mental status type: somnolence Qualified Code(s): R40.0 - Somnolence (3) CHF (congestive heart failure) Code(s): I50.9 - HEART FAILURE, UNSPECIFIED Qualifiers: Heart failure type: diastolic Heart failure chronicity: chronic Qualified Code(s): I50.32 - Chronic diastolic (congestive) heart failure (4) COPD with acute exacerbation Code(s): J44.1 - CHRONIC OBSTRUCTIVE PULMONARY DISEASE W (ACUTE) EXACERBATION (5) Elevated troponin I level Code(s): R74.8 - ABNORMAL LEVELS OF OTHER SERUM ENZYMES (6) Hyperkalemia Code(s): E87.5 - HYPERKALEMIA (7) Respiratory acidosis Code(s): E87.2 - ACIDOSIS (8) CAD (coronary artery disease) Code(s): I25.10 - ATHSCL HEART DISEASE OF [place] CORONARY ARTERY W/O ANG PCTRS Qualifiers: Coronary Disease-Associated Artery/Lesion type: [place] artery [place] vs. transplanted heart: [place] heart Associated angina: without angina Qualified Code(s): I25.10 - Atherosclerotic heart disease of [place] coronary artery without angina pectoris (9) Asymptomatic cholelithiasis Code(s): K80.20 - CALCULUS OF GALLBLADDER W/O CHOLECYSTITIS W/O OBSTRUCTION (10) Cor pulmonale, chronic Code(s): I27.81 - COR PULMONALE (CHRONIC) (11) HIV Code(s): Z21 - ASYMPTOMATIC HUMAN IMMUNODEFICIENCY VIRUS INFECTION STATUS (12) HTN (hypertension) Code(s): I10 - ESSENTIAL (PRIMARY) HYPERTENSION Qualifiers: Hypertension type: essential hypertension Qualified Code(s): I10 - Essential (primary) hypertension (13) Hyperlipidemia Code(s): E78.5 - HYPERLIPIDEMIA, UNSPECIFIED Qualifiers: Hyperlipidemia type: pure hypercholesterolemia Qualified Code(s): E78.00 - Pure hypercholesterolemia, unspecified; E78.0 - Pure hypercholesterolemia (14) PVD (peripheral vascular disease) Code(s): I73.9 - PERIPHERAL VASCULAR DISEASE, UNSPECIFIED (15) S/P CABG (coronary artery bypass graft) Code(s): Z95.1 - PRESENCE OF AORTOCORONARY BYPASS GRAFT Assessment/Plan Echo: 07/06/2018 Mod cLVH with preserved LV fxn, mod-severe RITIKA, severe TR, RVSP >60, RV volume overload with mod decreased RV fxn 1. Acute on chronic hypercapneic/hypoxemic respiratory failure, related to 2. Acute exacerbation of chronic obstructive pulmonary disease 3. Right Heart Failure/Volume Overload with Severe Pulmonary HTN 4. Diastolic dysfunction 5. CAD s/p CABG, demand ischemia 7. HTN 8. Hypercholesterolemia 9. HIV, Hep C 10. Smoker 11. PAD s/p SFA stent 12. Pre-renal Acute on CKD improving, hyperkalemia, hyponatremia 13. Toxic metabolic encephelopathy 14. Cholelithiasis PLAN: 1. Holding oral diuretics, losartan with monitor renal recovery and electrolytes , trops downtrending 2. Continue carvedilol 12.5 bid, Plavix 75 qd, Lipitor 10 qd, Ranexa 500 bid once oral intake re-established, IV Lopressor in meantime 3. IV steroid, BD, O2 to keep SpO2 88-92%, vent wean per ABG. off antibiotics as per the primary team 4. DVT prophylaxis, HAART once stable
[2018-08-11] MEDS ORDERED: METOPROLOL TARTRATE 5 MG/5 ML VIAL IVPUSH PRN (12:39)
--- NOTE | 2018-08-11 13:30 | PN ---
Teaching Attending Note Name of Resident: Petrona Dailey ATTENDING PHYSICIAN STATEMENT I saw and evaluated the patient. I reviewed the resident's note and discussed the case with the resident. I agree with the resident's findings and plan as documented. SUBJECTIVE: Pt seen and examined in the ICU. Intubated yesterday for episode of altered mental status, hypoxia and respiratory distress. OBJECTIVE: Vital Signs Period Temp Pulse Resp BP Sys/Buck Pulse Ox Last 24 Hr 94.2 F-98.7 F 72-103 14-27 147-186/72-100 95-100 Intake & Output 08/08/18 08/09/18 08/10/18 08/11/18 23:59 23:59 23:59 23:59 Intake Total 450 50 496 Output Total 2000 2500 400 Balance -1550 -2450 96 Weight 58.967 kg 55.6 kg 55.338 kg 54.2 kg Gen: intubated, sedated Heart: RRR Lung: decreased breath sounds at the bases Abd: soft, nontender Ext: no edema CBC, BMP 08/11/18 05:30 08/11/18 05:30 Active Medications Abacavir/Dolutegravir/Lamivudine (Triumeq (Non-Formulary)) 1 each PO DAILY [facility] Last Admin: 08/11/18 09:42 Dose: Not Given Albuterol Sulfate (Ventolin 0.083% Nebulizer Soln -) 1 amp NEB Q6H PRN PRN Reason: SHORT OF BREATH/WHEEZING Last Admin: 08/10/18 18:15 Dose: 1 amp Albuterol/Ipratropium (Duoneb -) 1 amp NEB RQID [facility] Last Admin: 08/11/18 11:25 Dose: 1 amp Carvedilol (Coreg -) 12.5 mg PO BID [facility] Last Admin: 08/11/18 09:42 Dose: Not Given Clopidogrel Bisulfate (Plavix -) 75 mg PO DAILY [facility] Last Admin: 08/11/18 09:42 Dose: Not Given Heparin Sodium (Porcine) (Heparin -) 5,000 unit SQ BID [facility] Last Admin: 08/11/18 10:56 Dose: 5,000 unit Hydralazine HCl (Apresoline Injection -) 20 mg IVPUSH Q8H PRN PRN Reason: HYPERTENSION Propofol (Diprivan -) 1,000,000 mcg in 100 mls @ 1.66 mls/hr IVPB TITR [facility]; Protocol Last Titration: 08/11/18 06:29 Dose: 30 mcg/kg/min, 9.961 mls/hr Fentanyl 500 mcg/ Dextrose 100 mls @ 5 mls/hr IVPB TITR [facility]; Protocol Last Admin: 08/11/18 06:29 Dose: 100 mcg/hr, 20 mls/hr Losartan Potassium (Cozaar -) 50 mg PO BID [facility] Methylprednisolone Sodium Succinate (Solu-Medrol -) 40 mg IVPUSH BID [facility] Last Admin: 08/11/18 09:42 Dose: 40 mg Metoprolol Tartrate (Lopressor Injection -) 5 mg IVPUSH Q4H PRN PRN Reason: HYPERTENSION Pantoprazole Sodium (Protonix Iv) 40 mg IVPUSH DAILY [facility] Ranolazine (Ranexa -) 500 mg PO BID [facility] Last Admin: 08/11/18 09:42 Dose: Not Given ASSESSMENT AND PLAN: Acute on Chronic Hypoxic and Hypercapneic Respiratory Failure Acute COPD Exacerbation Acute Kidney Injury Altered Mental Status LV Diastolic/Systolic Dysfunction Severe Pulmonary HTN CAD s/p CABG HIV PAD HTN - continue medrol - inhaled bronchodilators - O2 to keep Spo2 >90% - monitor ABG - IVF as needed - monitor urine output, creatinine - monitor lytes - lighten sedation in AM to assess mental status - spontaneous breathing trials in AM when mental status improved - DVT prophylaxis - continue ICU monitoring critical care time spent in reviewing chart, evaluating patient and formulating plan 35 min
[2018-08-11] MEDS: PANTOPRAZOLE SODIUM 40 MG VIAL IVPUSH SCH (14:13)
--- NOTE | 2018-08-11 14:55 | PN ---
Progress Note, Physician History of Present Illness: Pt seen and examined at bedside. She is now intubated. She was intubated for agitation. - Current Medication List Current Medications: Active Medications Abacavir/Dolutegravir/Lamivudine (Triumeq (Non-Formulary)) 1 each PO DAILY [facility] Last Admin: 08/11/18 09:42 Dose: Not Given Albuterol Sulfate (Ventolin 0.083% Nebulizer Soln -) 1 amp NEB Q6H PRN PRN Reason: SHORT OF BREATH/WHEEZING Last Admin: 08/10/18 18:15 Dose: 1 amp Albuterol/Ipratropium (Duoneb -) 1 amp NEB RQID [facility] Last Admin: 08/11/18 11:25 Dose: 1 amp Carvedilol (Coreg -) 12.5 mg PO BID [facility] Last Admin: 08/11/18 09:42 Dose: Not Given Clopidogrel Bisulfate (Plavix -) 75 mg PO DAILY [facility] Last Admin: 08/11/18 09:42 Dose: Not Given Heparin Sodium (Porcine) (Heparin -) 5,000 unit SQ BID [facility] Last Admin: 08/11/18 10:56 Dose: 5,000 unit Hydralazine HCl (Apresoline -) 50 mg NGT TID [facility] Propofol (Diprivan -) 1,000,000 mcg in 100 mls @ 1.66 mls/hr IVPB TITR [facility]; Protocol Last Titration: 08/11/18 06:29 Dose: 30 mcg/kg/min, 9.961 mls/hr Fentanyl 500 mcg/ Dextrose 100 mls @ 5 mls/hr IVPB TITR [facility]; Protocol Last Admin: 08/11/18 12:00 Dose: 100 mcg/hr, 20 mls/hr Losartan Potassium (Cozaar -) 50 mg PO BID [facility] Methylprednisolone Sodium Succinate (Solu-Medrol -) 40 mg IVPUSH BID [facility] Last Admin: 08/11/18 09:42 Dose: 40 mg Pantoprazole Sodium (Protonix Iv) 40 mg IVPUSH DAILY [facility] Last Admin: 08/11/18 14:13 Dose: 40 mg Ranolazine (Ranexa -) 500 mg PO BID [facility] Last Admin: 08/11/18 09:42 Dose: Not Given Spironolactone (Aldactone -) 25 mg NGT DAILY [facility] - Objective Vital Signs: Vital Signs Temperature 98.2 F 08/11/18 14:00 Pulse Rate 84 08/11/18 14:00 Respiratory Rate 22 H 08/11/18 14:00 Blood Pressure 169/95 08/11/18 14:00 O2 Sat by Pulse Oximetry (%) 100 08/11/18 09:00 Constitutional: Yes: Calm Eyes: Yes: Conjunctiva Clear HENT: Yes: Atraumatic Cardiovascular: Yes: S1, S2 Respiratory: Yes: Mechanically Ventilated Genitourinary: Yes: Torres Present Musculoskeletal: Yes: Muscle Weakness Edema: No Neurological: Yes: Lethargy Labs: CBC, BMP 08/11/18 05:30 08/11/18 05:30 INR, PTT INR 1.49 (0.83-1.09) H 08/08/18 19:37 Problem List - Problems (1) Acute renal failure Code(s): N17.9 - ACUTE KIDNEY FAILURE, UNSPECIFIED Qualifiers: Acute renal failure type: unspecified Qualified Code(s): N17.9 - Acute kidney failure, unspecified (2) Altered mental status, unspecified Code(s): R41.82 - ALTERED MENTAL STATUS, UNSPECIFIED Qualifiers: Altered mental status type: somnolence Qualified Code(s): R40.0 - Somnolence (3) CHF (congestive heart failure) Code(s): I50.9 - HEART FAILURE, UNSPECIFIED Qualifiers: Heart failure type: diastolic Heart failure chronicity: chronic Qualified Code(s): I50.32 - Chronic diastolic (congestive) heart failure (4) COPD with acute exacerbation Code(s): J44.1 - CHRONIC OBSTRUCTIVE PULMONARY DISEASE W (ACUTE) EXACERBATION (5) Hyperkalemia Code(s): E87.5 - HYPERKALEMIA Assessment/Plan Current Medications Generic Name Dose Route Start Last Admin Trade Name Freq PRN Reason Stop Dose Admin Abacavir/Dolutegravir/Lamivudine 1 each 08/10/18 14:00 08/11/18 09:42 Triumeq (Non-Formulary) PO Not Given DAILY [facility] Albuterol Sulfate 1 amp 08/09/18 05:27 08/10/18 18:15 Ventolin 0.083% Nebulizer Soln - NEB 1 amp Q6H PRN Administration SHORT OF BREATH/WHEEZING Albuterol/Ipratropium 1 amp 08/09/18 08:00 08/11/18 11:25 Duoneb - NEB 1 amp RQID [facility] Administration Carvedilol 12.5 mg 08/10/18 10:00 08/11/18 09:42 Coreg - PO Not Given BID [facility] Clopidogrel Bisulfate 75 mg 08/10/18 10:00 08/11/18 09:42 Plavix - PO Not Given DAILY [facility] Heparin Sodium (Porcine) 5,000 unit 08/09/18 10:00 08/11/18 10:56 Heparin - SQ 5,000 unit BID [facility] Administration Hydralazine HCl 50 mg 08/11/18 14:08 Apresoline - NGT TID [facility] Propofol 1,000,000 mcg in 100 mls @ 1.66 mls/hr 08/10/18 19:30 08/11/18 06:29 Diprivan - IVPB 30 mcg/kg/min TITR [facility] 9.961 mls/hr Titration Protocol 5 MCG/KG/MIN Fentanyl 500 mcg/ Dextrose 100 mls @ 5 mls/hr 08/10/18 20:15 08/11/18 12:00 IVPB 100 mcg/hr TITR [facility] 20 mls/hr Administration Protocol 25 MCG/HR Losartan Potassium 50 mg 08/11/18 13:00 Cozaar - PO BID [facility] Methylprednisolone Sodium Succinate 40 mg 08/09/18 12:04 08/11/18 09:42 Solu-Medrol - IVPUSH 40 mg BID [facility] Administration Pantoprazole Sodium 40 mg 08/11/18 13:15 08/11/18 14:13 Protonix Iv IVPUSH 40 mg DAILY [facility] Administration Ranolazine 500 mg 08/10/18 11:30 08/11/18 09:42 Ranexa - PO Not Given BID [facility] Spironolactone 25 mg 08/11/18 14:15 Aldactone - NGT DAILY [facility] Impression 1. KRISTIAN 2. Hyperkalemia 3. HIV 4. hyponatremia 5. altered mental status 6. pulm HTN 7. htn 8. pvd 9. resp acidosis 10. resp failure requiring intubation Plan - renal function continues to improve - cont to monitor - vent support - discussed with ICU team - kristian likely from pre-renal disease
[2018-08-11] MEDS: hydrALAZINE HCL 50 MG TABLET (FP) NGT SCH ×2 (15:45→21:27)
[2018-08-11] MEDS: LOSARTAN POTASSIUM 50 MG TABLET (FP) PO SCH ×2 (15:45→21:27)
[2018-08-11] MEDS: SPIRONOLACTONE 25 MG TABLET (FP) NGT SCH (15:46)
[2018-08-11] MEDS ORDERED: PROPOFOL 1,000,000 MCG/100 ML VIAL ONE (15:54)
[2018-08-11] MEDS ORDERED: PT OWN MED DRAWER 7, Y5N ONE (17:20)
--- NOTE | 2018-08-11 17:28 | PN ---
Progress Note, Physician History of Present Illness: intubated - Current Medication List Current Medications: Active Medications Abacavir/Dolutegravir/Lamivudine (Triumeq (Non-Formulary)) 1 each PO DAILY [facility] Last Admin: 08/11/18 09:42 Dose: Not Given Albuterol Sulfate (Ventolin 0.083% Nebulizer Soln -) 1 amp NEB Q6H PRN PRN Reason: SHORT OF BREATH/WHEEZING Last Admin: 08/10/18 18:15 Dose: 1 amp Albuterol/Ipratropium (Duoneb -) 1 amp NEB RQID [facility] Last Admin: 08/11/18 16:32 Dose: 1 amp Carvedilol (Coreg -) 12.5 mg PO BID [facility] Last Admin: 08/11/18 09:42 Dose: Not Given Clopidogrel Bisulfate (Plavix -) 75 mg PO DAILY [facility] Last Admin: 08/11/18 09:42 Dose: Not Given Heparin Sodium (Porcine) (Heparin -) 5,000 unit SQ BID [facility] Last Admin: 08/11/18 10:56 Dose: 5,000 unit Hydralazine HCl (Apresoline -) 50 mg NGT TID [facility] Last Admin: 08/11/18 15:45 Dose: 50 mg Propofol (Diprivan -) 1,000,000 mcg in 100 mls @ 1.66 mls/hr IVPB TITR [facility]; Protocol Last Admin: 08/11/18 15:55 Dose: 30 mcg/kg/min, 9.961 mls/hr Fentanyl 500 mcg/ Dextrose 100 mls @ 5 mls/hr IVPB TITR [facility]; Protocol Last Admin: 08/11/18 12:00 Dose: 100 mcg/hr, 20 mls/hr Losartan Potassium (Cozaar -) 50 mg PO BID [facility] Last Admin: 08/11/18 15:45 Dose: 50 mg Methylprednisolone Sodium Succinate (Solu-Medrol -) 40 mg IVPUSH BID [facility] Last Admin: 08/11/18 09:42 Dose: 40 mg Pantoprazole Sodium (Protonix Iv) 40 mg IVPUSH DAILY [facility] Last Admin: 08/11/18 14:13 Dose: 40 mg Ranolazine (Ranexa -) 500 mg PO BID [facility] Last Admin: 08/11/18 09:42 Dose: Not Given Spironolactone (Aldactone -) 25 mg NGT DAILY [facility] Last Admin: 08/11/18 15:46 Dose: 25 mg - Objective Vital Signs: Vital Signs Temperature 98.1 F 08/11/18 16:00 Pulse Rate 86 08/11/18 16:00 Respiratory Rate 16 08/11/18 16:31 Blood Pressure 166/90 08/11/18 16:00 O2 Sat by Pulse Oximetry (%) 100 08/11/18 09:00 Constitutional: Yes: Calm HENT: Yes: Atraumatic Neck: Yes: Supple Cardiovascular: Yes: Regular Rate and Rhythm Respiratory: Yes: CTA Bilaterally Gastrointestinal: Yes: Normal Bowel Sounds Extremities: Yes: WNL Edema: No Labs: CBC, BMP 08/11/18 05:30 08/11/18 05:30 INR, PTT INR 1.49 (0.83-1.09) H 08/08/18 19:37 Problem List - Problems (1) Acute renal failure Assessment/Plan: on iv hydration monitor\ Code(s): N17.9 - ACUTE KIDNEY FAILURE, UNSPECIFIED Qualifiers: Acute renal failure type: unspecified Qualified Code(s): N17.9 - Acute kidney failure, unspecified (2) Altered mental status, unspecified Code(s): R41.82 - ALTERED MENTAL STATUS, UNSPECIFIED Qualifiers: Altered mental status type: somnolence Qualified Code(s): R40.0 - Somnolence (3) COPD with acute exacerbation Assessment/Plan: steroids duo nebs Code(s): J44.1 - CHRONIC OBSTRUCTIVE PULMONARY DISEASE W (ACUTE) EXACERBATION (4) Elevated troponin I level Code(s): R74.8 - ABNORMAL LEVELS OF OTHER SERUM ENZYMES (5) Hyperkalemia Code(s): E87.5 - HYPERKALEMIA (6) COPD (chronic obstructive pulmonary disease) Code(s): J44.9 - CHRONIC OBSTRUCTIVE PULMONARY DISEASE, UNSPECIFIED Qualifiers: (7) HIV Assessment/Plan: continue home meds Code(s): Z21 - ASYMPTOMATIC HUMAN IMMUNODEFICIENCY VIRUS INFECTION STATUS (8) HTN (hypertension) Code(s): I10 - ESSENTIAL (PRIMARY) HYPERTENSION Qualifiers: Hypertension type: essential hypertension Qualified Code(s): I10 - Essential (primary) hypertension (9) Hyperlipidemia Code(s): E78.5 - HYPERLIPIDEMIA, UNSPECIFIED Qualifiers: Hyperlipidemia type: pure hypercholesterolemia Qualified Code(s): E78.00 - Pure hypercholesterolemia, unspecified; E78.0 - Pure hypercholesterolemia (10) PVD (peripheral vascular disease) Code(s): I73.9 - PERIPHERAL VASCULAR DISEASE, UNSPECIFIED (11) CHF (congestive heart failure) Code(s): I50.9 - HEART FAILURE, UNSPECIFIED Qualifiers: Heart failure type: diastolic Heart failure chronicity: chronic Qualified Code(s): I50.32 - Chronic diastolic (congestive) heart failure Assessment/Plan cc time 35 min
[2018-08-12] MEDS ORDERED: fentaNYL CITRATE 250 MCG/5 ML VIAL ONE ×3 (04:59→18:08)
[2018-08-12] MEDS: hydrALAZINE HCL 50 MG TABLET (FP) NGT SCH ×3 (05:05→21:55)
[2018-08-12 06:22] LABS: BASO % 0.1 % (0-2.0); HEMATOCRIT 31.9 % (32.4-45.2); HEMOGLOBIN 10.5 GM/dL (10.7-15.3); LYMPH % 4.6 % (8-40); MCH 31.1 pg (25.7-33.7); MCHC 33.1 g/dl (32.0-36.0); MEAN PLT VOLUME 6.7 fl (7.5-11.1); MONO % 10.9 % (3.8-10.2); NEUT % 84.4 % (42.8-82.8); PLATELET COUNT 308 K/MM3 (134-434); RBC 3.39 M/mm3 (3.60-5.2); RDW 14.8 % (11.6-15.6); WHITE BLOOD COUNT 11.8 K/mm3 (4.0-10.0)
[2018-08-12 06:38] LABS: ARTERIAL BLD GAS O2 SATURATION 94.6 % (95-98); ARTERIAL BLOOD GAS BASE EXCESS 10.2 meq/l (-2-2); ARTERIAL BLOOD GAS PCO2 67.8 mmHg (35-45); ARTERIAL BLOOD GAS PO2 77.9 mmHg (80-105); ARTERIAL BLOOD GAS pH 7.36 (7.35-7.45)
[2018-08-12 06:40] LABS: ALLENS TEST POSITIVE
[2018-08-12 06:52] LABS: ALBUMIN 3.2 g/dl (3.4-5.0); ALK PHOS 70 U/L (45-117); ANION GAP 2 MMOL/L (8-16); BILIRUBIN,TOTAL 0.6 mg/dL (0.2-1); BLOOD UREA NITROGEN 42 mg/dL (7-18); CALCIUM 9.3 mg/dL (8.5-10.1); CHLORIDE 104 mmol/L (98-107); CO2 38 mmol/L (21-32); CREATININE 0.9 mg/dL (0.55-1.3); GLUCOSE,RANDOM 172 mg/dL (74-106); MAGNESIUM 2.2 mg/dL (1.8-2.4); PHOSPHOROUS 3.1 mg/dL (2.5-4.9); POTASSIUM 4.7 mmol/L (3.5-5.1); SGOT/AST 26 U/L (15-37); SGPT/ALT 30 U/L (13-61); SODIUM 144 mmol/L (136-145); TOT PROT 7.2 g/dl (6.4-8.2)
[2018-08-12] MEDS: ALBUTEROL SO4 2.5/IPRATROPIUM 0.5 INH SOL 3 ML VIAL.NEB. NEB SCH ×4 (07:30→21:02)
--- NOTE | 2018-08-12 08:02 | PN ---
Physical Exam: SUBJECTIVE: Patient seen and examined at bedside. No acute events overnight. Pt remains intubated and sedated. Failed weaning trial this AM. OBJECTIVE: Vital Signs Period Temp Pulse Resp BP Sys/Buck Pulse Ox Last 24 Hr 98 F-98.7 F 70-89 14-22 114-186/70-100 98-100 GENERAL: Intubated and sedated. HEENT: AT/NC. EOMI. Dry mucus membranes. NECK: Trachea midline, full range of motion, supple. LUNGS: mild b/l crackles. No accessory muscle use. HEART: RRR. Normal S1, S2. No murmurs noted. ABDOMEN: soft, NT/ND. hypoactive bowel sounds EXTREMITIES: 2+ pulses, warm, well-perfused, no edema. NEUROLOGICAL: Unable to assess. CBCD WBC 11.8 K/mm3 (4.0-10.0) H 08/12/18 05:30 RBC 3.39 M/mm3 (3.60-5.2) L 08/12/18 05:30 Hgb 10.5 GM/dL (10.7-15.3) L 08/12/18 05:30 Hct 31.9 % (32.4-45.2) L 08/12/18 05:30 MCV 94.0 fl (80-96) 08/12/18 05:30 MCHC 33.1 g/dl (32.0-36.0) 08/12/18 05:30 RDW 14.8 % (11.6-15.6) 08/12/18 05:30 Plt Count 308 K/MM3 (134-434) 08/12/18 05:30 MPV 6.7 fl (7.5-11.1) L 08/12/18 05:30 CMP Sodium 144 mmol/L (136-145) 08/12/18 05:30 Potassium 4.7 mmol/L (3.5-5.1) 08/12/18 05:30 Chloride 104 mmol/L (98-107) 08/12/18 05:30 Carbon Dioxide 38 mmol/L (21-32) H 08/12/18 05:30 Anion Gap 2 MMOL/L (8-16) L 08/12/18 05:30 BUN 42 mg/dL (7-18) H 08/12/18 05:30 Creatinine 0.9 mg/dL (0.55-1.3) 08/12/18 05:30 Creat Clearance w eGFR 62.45 (>60) 08/12/18 05:30 Calcium 9.3 mg/dL (8.5-10.1) 08/12/18 05:30 Total Bilirubin 0.6 mg/dL (0.2-1) 08/12/18 05:30 AST 26 U/L (15-37) 08/12/18 05:30 ALT 30 U/L (13-61) 08/12/18 05:30 Alkaline Phosphatase 70 U/L (45-117) 08/12/18 05:30 Total Protein 7.2 g/dl (6.4-8.2) 08/12/18 05:30 Albumin 3.2 g/dl (3.4-5.0) L 08/12/18 05:30 Active Medications Abacavir/Dolutegravir/Lamivudine (Triumeq (Non-Formulary)) 1 each PO DAILY [facility] Last Admin: 08/11/18 09:42 Dose: Not Given Albuterol Sulfate (Ventolin 0.083% Nebulizer Soln -) 1 amp NEB Q6H PRN PRN Reason: SHORT OF BREATH/WHEEZING Last Admin: 08/10/18 18:15 Dose: 1 amp Albuterol/Ipratropium (Duoneb -) 1 amp NEB RQID [facility] Last Admin: 08/11/18 21:20 Dose: 1 amp Carvedilol (Coreg -) 12.5 mg PO BID [facility] Last Admin: 08/11/18 21:27 Dose: 12.5 mg Clopidogrel Bisulfate (Plavix -) 75 mg PO DAILY [facility] Last Admin: 08/11/18 09:42 Dose: Not Given Heparin Sodium (Porcine) (Heparin -) 5,000 unit SQ BID [facility] Last Admin: 08/11/18 21:27 Dose: 5,000 unit Hydralazine HCl (Apresoline -) 50 mg NGT TID [facility] Last Admin: 08/12/18 05:05 Dose: 50 mg Propofol (Diprivan -) 1,000,000 mcg in 100 mls @ 1.66 mls/hr IVPB TITR [facility]; Protocol Last Admin: 08/11/18 23:31 Dose: 30 mcg/kg/min, 9.961 mls/hr Fentanyl 500 mcg/ Dextrose 100 mls @ 5 mls/hr IVPB TITR [facility]; Protocol Last Admin: 08/11/18 23:30 Dose: 100 mcg/hr, 20 mls/hr Losartan Potassium (Cozaar -) 50 mg PO BID [facility] Last Admin: 08/11/18 21:27 Dose: 50 mg Methylprednisolone Sodium Succinate (Solu-Medrol -) 40 mg IVPUSH BID [facility] Last Admin: 08/11/18 21:28 Dose: 40 mg Pantoprazole Sodium (Protonix Iv) 40 mg IVPUSH DAILY [facility] Last Admin: 08/11/18 14:13 Dose: 40 mg Ranolazine (Ranexa -) 500 mg PO BID [facility] Last Admin: 08/11/18 21:28 Dose: 500 mg Spironolactone (Aldactone -) 25 mg NGT DAILY [facility] Last Admin: 08/11/18 15:46 Dose: 25 mg IMAGING: * CXR: Large heart, unfolded aorta, improvement in aeration since 07/07/18 * CTAP: Severely limited due to lack of contrast. Mod cardiomegaly, small pleural reactions at the bases. R base bronchiectasis w/ peribronchial consolidations. Small blebs and pleural changes. Cholelithiasis, possible wall thickening vs. pericholecystic fluid. Kidneys: Probable vascular calcificiations , cannot r/o small stones. * Renal U/s: No hydronephrosis seen. Kidneys unremarkable. Small amount of perihepatic ascites is noted. Cholelithiasis is seen. * CXR (08/10/18): Large heart, unfolded aorta, sternal sutures and clips and some congestive changes. Discrete infiltrate not seen. LILI granuloma. Some blunting possibly of R angle. Past Imaging * 07/06/18 Echo: moderate concntric left ventricular hypertrophy, right atrium moderate to severely dilated, severe tricuspid regurg, RV pressure is > 60 mmhg , LV sys fxn normal, RV moderately dilated, septal motion consistent with conduction abnormality ASSESSMENT/PLAN: 67F w/ PMHx of HTN, CAD s/p CABG in 2009, PVD with B/L LE stents, HIV, HEP C, COPD and CHF brought from [facility] after her daughter found her confused. NEURO -Intubated and sedated. -Propofol and Fentanyl drip. #Depression -Hold home meds due to mental status; pt is also currently sedated PULM #Acute hypoxic hypercapneic respiratory failure likely 2/2 COPD exacerbation/ Diastolic CHF exacerbation -Currently intubated and sedated. Weaning trial attempted this AM, however unsuccessful -Spontaneous weaning trials as tolerated -Duoneb/Albuterol -Increase Solumedrol to 80 mg IVP Q8H -repeat ABG in AM -Increased peak flow to 70% to decrease inspiratory phase CV #Acute on chronic Diastolic CHF exacerbation -Torres in place. Strict I's and O's -Hold Lasix for now as pt seems to be hypovolemic #HTN-uncontrolled -Per renal, OK to cont home meds: Aldactone 25 mg, Losartan 50 BID, Hydralazine 50 TID -cont to monitor BP and K+ while on diuretics #CAD s/p CABG -Per cardio, cont Plavix (allergic to aspirin) #Hx stents -Continue Plavix (allergic to aspirin) #Angina -Per cardio, cont Ranexa 500 mg BID #PVD s/p SFA stent; Stable. -Cont home Plavix GI #Abdominal pain/diarrhea -Abdominal/Pelvis CT noted above; no signs of infectious process. Will observe off abx per ID. RENAL #Hyperkalemia; improving 4.7 today -Per nephro, can resume home meds -recheck BMP in AM #KRISTIAN; Resolved. -Cr improved to 0.9 now ID #HIV -Cont home PO meds -recent CD4 count 440 -Per ID, observe off abx MSK #Osteoporosis -Alendronate 70 mg once every Wednesday. FEN -no IVf -recheck lytes in AM; replete PRN -Tube feeds started PROPHYLAXIS For DVT: On Heparin 5000 IU sq TID For GI: Ranitidine 150mg BID. Dispo -cont to monitor in ICU Visit type - Emergency Visit Emergency Visit: Yes ED Registration Date: 08/08/18 Care time: The patient presented to the Emergency Department on the above date and was hospitalized for further evaluation of their emergent condition. - New Patient This patient is new to me today: No - Critical Care Critical Care patient: Yes Total Critical Care Time (in minutes): 35 Critical Care Statement: The care of this patient involved high complexity decision making to prevent further life threatening deterioration of the patient 's condition and/or to evaluate & treat vital organ system(s) failure or risk of failure.
[2018-08-12] MEDS: HEPARIN NA (PORCINE) 5,000 UNITS/ML 1ML VIAL SQ SCH ×2 (10:57→21:55)
[2018-08-12] MEDS: RANOLAZINE E.R. 500 MG TABLET (FP) PO SCH ×2 (10:57→21:55)
[2018-08-12] MEDS: methylPREDNISolone NA SUCC 40 MG/1 ML VIAL IVPUSH SCH ×2 (10:57→18:05)
[2018-08-12] MEDS: SPIRONOLACTONE 25 MG TABLET (FP) NGT SCH (10:57)
[2018-08-12] MEDS: LOSARTAN POTASSIUM 50 MG TABLET (FP) PO SCH ×2 (10:57→21:56)
[2018-08-12] MEDS: CARVEDILOL 12.5 MG TABLET (FP) PO SCH ×2 (10:57→21:55)
[2018-08-12] MEDS: CLOPIDOGREL BISULFATE 75 MG TABLET (FP) PO SCH (10:57)
[2018-08-12] MEDS: PANTOPRAZOLE SODIUM 40 MG VIAL IVPUSH SCH (10:57)
[2018-08-12] MEDS: ABACAVIR/DOLUTEGRAVIR/LAMIVUDI (TRIUMEQ) TABLET -NF PO SCH (10:57)
--- NOTE | 2018-08-12 11:54 | PN ---
Progress Note, Physician History of Present Illness: Sedated and intubated on ventilator support, tolerating enteral feeds, hemodynamics stable. - Current Medication List Current Medications: Active Medications Abacavir/Dolutegravir/Lamivudine (Triumeq (Non-Formulary)) 1 each PO DAILY [facility] Last Admin: 08/12/18 10:57 Dose: 1 each Albuterol Sulfate (Ventolin 0.083% Nebulizer Soln -) 1 amp NEB Q6H PRN PRN Reason: SHORT OF BREATH/WHEEZING Last Admin: 08/10/18 18:15 Dose: 1 amp Albuterol/Ipratropium (Duoneb -) 1 amp NEB RQID [facility] Last Admin: 08/12/18 07:30 Dose: 1 amp Carvedilol (Coreg -) 12.5 mg PO BID [facility] Last Admin: 08/12/18 10:57 Dose: 12.5 mg Clopidogrel Bisulfate (Plavix -) 75 mg PO DAILY [facility] Last Admin: 08/12/18 10:57 Dose: 75 mg Heparin Sodium (Porcine) (Heparin -) 5,000 unit SQ BID [facility] Last Admin: 08/12/18 10:57 Dose: 5,000 unit Hydralazine HCl (Apresoline -) 50 mg NGT TID [facility] Last Admin: 08/12/18 05:05 Dose: 50 mg Propofol (Diprivan -) 1,000,000 mcg in 100 mls @ 1.66 mls/hr IVPB TITR [facility]; Protocol Last Admin: 08/11/18 23:31 Dose: 30 mcg/kg/min, 9.961 mls/hr Fentanyl 500 mcg/ Dextrose 100 mls @ 5 mls/hr IVPB TITR [facility]; Protocol Last Admin: 08/11/18 23:30 Dose: 100 mcg/hr, 20 mls/hr Losartan Potassium (Cozaar -) 50 mg PO BID [facility] Last Admin: 08/12/18 10:57 Dose: 50 mg Methylprednisolone Sodium Succinate (Solu-Medrol -) 80 mg IVPUSH Q8H-IV [facility] Pantoprazole Sodium (Protonix Iv) 40 mg IVPUSH DAILY [facility] Last Admin: 08/12/18 10:57 Dose: 40 mg Ranolazine (Ranexa -) 500 mg PO BID [facility] Last Admin: 08/12/18 10:57 Dose: 500 mg Spironolactone (Aldactone -) 25 mg NGT DAILY [facility] Last Admin: 08/12/18 10:57 Dose: 25 mg - Objective Vital Signs: Vital Signs Temperature 98.0 F 08/12/18 10:00 Pulse Rate 69 08/12/18 10:00 Respiratory Rate 16 08/12/18 10:00 Blood Pressure 136/73 08/12/18 10:00 O2 Sat by Pulse Oximetry (%) 94 L 08/12/18 08:44 Constitutional: Yes: No Distress, Calm Neck: Yes: Supple Cardiovascular: Yes: Regular Rate and Rhythm Respiratory: Yes: Intubated, Mechanically Ventilated, Rhonchi Gastrointestinal: Yes: Soft, Hypoactive Bowel Sounds Edema: No Labs: CBC, BMP 08/12/18 05:30 08/12/18 05:30 INR, PTT INR 1.49 (0.83-1.09) H 08/08/18 19:37 - ....Imaging Chest X-ray: Report Reviewed (Congestion) Problem List - Problems (1) Acute renal failure Code(s): N17.9 - ACUTE KIDNEY FAILURE, UNSPECIFIED Qualifiers: Qualified Code(s): N17.9 - Acute kidney failure, unspecified (2) Altered mental status, unspecified Code(s): R41.82 - ALTERED MENTAL STATUS, UNSPECIFIED Qualifiers: Qualified Code(s): R40.0 - Somnolence (3) CHF (congestive heart failure) Code(s): I50.9 - HEART FAILURE, UNSPECIFIED Qualifiers: Qualified Code(s): I50.32 - Chronic diastolic (congestive) heart failure (4) COPD with acute exacerbation Code(s): J44.1 - CHRONIC OBSTRUCTIVE PULMONARY DISEASE W (ACUTE) EXACERBATION (5) Elevated troponin I level Code(s): R74.8 - ABNORMAL LEVELS OF OTHER SERUM ENZYMES (6) Respiratory acidosis Code(s): E87.2 - ACIDOSIS (7) CAD (coronary artery disease) Code(s): I25.10 - ATHSCL HEART DISEASE OF [place] CORONARY ARTERY W/O ANG PCTRS Qualifiers: Qualified Code(s): I25.10 - Atherosclerotic heart disease of [place] coronary artery without angina pectoris (8) Asymptomatic cholelithiasis Code(s): K80.20 - CALCULUS OF GALLBLADDER W/O CHOLECYSTITIS W/O OBSTRUCTION (9) Cor pulmonale, chronic Code(s): I27.81 - COR PULMONALE (CHRONIC) (10) HIV Code(s): Z21 - ASYMPTOMATIC HUMAN IMMUNODEFICIENCY VIRUS INFECTION STATUS (11) HTN (hypertension) Code(s): I10 - ESSENTIAL (PRIMARY) HYPERTENSION Qualifiers: Qualified Code(s): I10 - Essential (primary) hypertension (12) Hyperlipidemia Code(s): E78.5 - HYPERLIPIDEMIA, UNSPECIFIED Qualifiers: Qualified Code(s): E78.00 - Pure hypercholesterolemia, unspecified; E78.0 - Pure hypercholesterolemia (13) PVD (peripheral vascular disease) Code(s): I73.9 - PERIPHERAL VASCULAR DISEASE, UNSPECIFIED (14) S/P CABG (coronary artery bypass graft) Code(s): Z95.1 - PRESENCE OF AORTOCORONARY BYPASS GRAFT Assessment/Plan Echo: 07/06/2018 Mod cLVH with preserved LV fxn, mod-severe RITIKA, severe TR, RVSP >60, RV volume overload with mod decreased RV fxn 1. Acute on chronic hypercapneic/hypoxemic respiratory failure, related to 2. Acute exacerbation of chronic obstructive pulmonary disease 3. Right Heart Failure/Volume Overload with Severe Pulmonary HTN 4. Diastolic dysfunction 5. CAD s/p CABG, demand ischemia 7. HTN 8. Hypercholesterolemia 9. HIV, Hep C 10. Smoker 11. PAD s/p SFA stent 12. Pre-renal Acute on CKD improving, hyperkalemia, hyponatremia 13. Toxic metabolic encephelopathy 14. Cholelithiasis PLAN: 1. Resumed aldactone 25 qd and losartan 50 bid as renal fxn stabilized to baseline 2. Continue carvedilol 12.5 bid, Plavix 75 qd, hydralazine 50 tid, Lipitor 10 qd , Ranexa 500 bid 3. IV steroid, BD, O2 to keep SpO2 88-92%, vent wean per ABG. off antibiotics as per the primary team 4. DVT prophylaxis, HAART once stable, enteral feeds
--- NOTE | 2018-08-12 12:10 | PN ---
Teaching Attending Note Name of Resident: Petrona Dailey ATTENDING PHYSICIAN STATEMENT I saw and evaluated the patient. I reviewed the resident's note and discussed the case with the resident. I agree with the resident's findings and plan as documented. SUBJECTIVE: Patient seen and examined in the ICU. AC Mode of vent. Remains intubated. Flow loops reveal significant obstruction. OBJECTIVE: Intake & Output 08/09/18 08/10/18 08/11/18 08/12/18 23:59 23:59 23:59 23:59 Intake Total 450 50 907.2 944.5 Output Total 2000 2500 1300 1400 Balance -1550 -2450 -392.8 -455.5 Weight 122 lb 9.232 oz 122 lb 119 lb 7.849 oz 119 lb 7.849 oz Last Vital Signs Temp Pulse Resp BP Pulse Ox 98.0 F 69 16 136/73 94 L 08/12/18 10:00 08/12/18 10:00 08/12/18 10:00 08/12/18 10:00 08/12/18 08:44 Active Medications Abacavir/Dolutegravir/Lamivudine (Triumeq (Non-Formulary)) 1 each PO DAILY [facility] Last Admin: 08/12/18 10:57 Dose: 1 each Albuterol Sulfate (Ventolin 0.083% Nebulizer Soln -) 1 amp NEB Q6H PRN PRN Reason: SHORT OF BREATH/WHEEZING Last Admin: 08/10/18 18:15 Dose: 1 amp Albuterol/Ipratropium (Duoneb -) 1 amp NEB RQID [facility] Last Admin: 08/12/18 07:30 Dose: 1 amp Carvedilol (Coreg -) 12.5 mg PO BID [facility] Last Admin: 08/12/18 10:57 Dose: 12.5 mg Clopidogrel Bisulfate (Plavix -) 75 mg PO DAILY [facility] Last Admin: 08/12/18 10:57 Dose: 75 mg Heparin Sodium (Porcine) (Heparin -) 5,000 unit SQ BID [facility] Last Admin: 08/12/18 10:57 Dose: 5,000 unit Hydralazine HCl (Apresoline -) 50 mg NGT TID [facility] Last Admin: 08/12/18 05:05 Dose: 50 mg Propofol (Diprivan -) 1,000,000 mcg in 100 mls @ 1.66 mls/hr IVPB TITR [facility]; Protocol Last Admin: 08/11/18 23:31 Dose: 30 mcg/kg/min, 9.961 mls/hr Fentanyl 500 mcg/ Dextrose 100 mls @ 5 mls/hr IVPB TITR [facility]; Protocol Last Admin: 08/11/18 23:30 Dose: 100 mcg/hr, 20 mls/hr Losartan Potassium (Cozaar -) 50 mg PO BID [facility] Last Admin: 08/12/18 10:57 Dose: 50 mg Methylprednisolone Sodium Succinate (Solu-Medrol -) 80 mg IVPUSH Q8H-IV [facility] Pantoprazole Sodium (Protonix Iv) 40 mg IVPUSH DAILY [facility] Last Admin: 08/12/18 10:57 Dose: 40 mg Ranolazine (Ranexa -) 500 mg PO BID [facility] Last Admin: 08/12/18 10:57 Dose: 500 mg Spironolactone (Aldactone -) 25 mg NGT DAILY [facility] Last Admin: 08/12/18 10:57 Dose: 25 mg Gen: intubated, sedated Heart: RRR Lung: decreased breath sounds at the bases Abd: soft, nontender Ext: no edema Laboratory Results - last 24 hr 08/12/18 08/12/18 08/12/18 05:30 05:30 06:25 WBC 11.8 H RBC 3.39 L Hgb 10.5 L Hct 31.9 L MCV 94.0 MCH 31.1 MCHC 33.1 RDW 14.8 Plt Count 308 MPV 6.7 L Absolute Neuts (auto) 10.0 H Neutrophils % 84.4 H Lymphocytes % 4.6 L Monocytes % 10.9 H Eosinophils % 0.0 Basophils % 0.1 Nucleated RBC % 1 H Anticoagulation Therapy No Result Required. Puncture Site Right radial ABG pH 7.36 ABG pCO2 at Pt Temp 67.8 H ABG pO2 at Pt Temp 77.9 L ABG HCO3 37.3 H ABG O2 Sat (Measured) 94.6 L ABG O2 Content 13.9 L ABG Base Excess 10.2 H Trevor Test Positive O2 Delivery Device No Result Required. Oxygen Flow Rate 40% Vent Mode A/c Vent Rate 16 Mechanical Rate No Result Required. PEEP 5.0 Pressure Support Vent 350 Sodium 144 Potassium 4.7 Chloride 104 Carbon Dioxide 38 H Anion Gap 2 L BUN 42 H Creatinine 0.9 Creat Clearance w eGFR 62.45 Random Glucose 172 H Calcium 9.3 Phosphorus 3.1 Magnesium 2.2 Total Bilirubin 0.6 AST 26 ALT 30 Alkaline Phosphatase 70 Total Protein 7.2 Albumin 3.2 L ASSESSMENT AND PLAN: Acute on Chronic Hypoxic and Hypercapneic Respiratory Failure Acute COPD Exacerbation Acute Kidney Injury Altered Mental Status LV Diastolic/Systolic Dysfunction Severe Pulmonary HTN CAD s/p CABG HIV PAD HTN - Vent settings adjusted to allow for prolonged I:E Ratio - Increase Medrol - inhaled bronchodilators - O2 to keep Spo2 >90% - Enteral feeds - monitor urine output, creatinine - Monitor lytes - DAily sedation vacations - Spontaneous breathing trials in AM - DVT prophylaxis - continue ICU monitoring Dr Suero Critical care time spent in reviewing chart, evaluating patient and formulating plan 36 min
[2018-08-12] MEDS: PROPOFOL 1,000,000 MCG/100 ML VIAL IVPB SCH (12:18)
[2018-08-12] MEDS: FENTANYL INJECTION 500 MCG in DEXTROSE 5%-WATER - 90 ML IVPB SCH ×2 (12:19→21:58)
--- NOTE | 2018-08-12 13:00 | PN ---
Progress Note, Physician History of Present Illness: intubated - Current Medication List Current Medications: Active Medications Abacavir/Dolutegravir/Lamivudine (Triumeq (Non-Formulary)) 1 each PO DAILY [facility] Last Admin: 08/12/18 10:57 Dose: 1 each Albuterol Sulfate (Ventolin 0.083% Nebulizer Soln -) 1 amp NEB Q6H PRN PRN Reason: SHORT OF BREATH/WHEEZING Last Admin: 08/10/18 18:15 Dose: 1 amp Albuterol/Ipratropium (Duoneb -) 1 amp NEB RQID [facility] Last Admin: 08/12/18 12:26 Dose: 1 amp Carvedilol (Coreg -) 12.5 mg PO BID [facility] Last Admin: 08/12/18 10:57 Dose: 12.5 mg Clopidogrel Bisulfate (Plavix -) 75 mg PO DAILY [facility] Last Admin: 08/12/18 10:57 Dose: 75 mg Heparin Sodium (Porcine) (Heparin -) 5,000 unit SQ BID [facility] Last Admin: 08/12/18 10:57 Dose: 5,000 unit Hydralazine HCl (Apresoline -) 50 mg NGT TID [facility] Last Admin: 08/12/18 05:05 Dose: 50 mg Propofol (Diprivan -) 1,000,000 mcg in 100 mls @ 1.66 mls/hr IVPB TITR [facility]; Protocol Last Admin: 08/12/18 12:18 Dose: 50 mcg/kg/min, 16.601 mls/hr Fentanyl 500 mcg/ Dextrose 100 mls @ 5 mls/hr IVPB TITR [facility]; Protocol Last Admin: 08/12/18 12:19 Dose: 125 mcg/hr, 25 mls/hr Losartan Potassium (Cozaar -) 50 mg PO BID [facility] Last Admin: 08/12/18 10:57 Dose: 50 mg Methylprednisolone Sodium Succinate (Solu-Medrol -) 80 mg IVPUSH Q8H-IV [facility] Pantoprazole Sodium (Protonix Iv) 40 mg IVPUSH DAILY [facility] Last Admin: 08/12/18 10:57 Dose: 40 mg Ranolazine (Ranexa -) 500 mg PO BID [facility] Last Admin: 08/12/18 10:57 Dose: 500 mg Spironolactone (Aldactone -) 25 mg NGT DAILY [facility] Last Admin: 08/12/18 10:57 Dose: 25 mg - Objective Vital Signs: Vital Signs Temperature 98.0 F 08/12/18 10:00 Pulse Rate 69 08/12/18 10:00 Respiratory Rate 16 08/12/18 12:05 Blood Pressure 136/73 08/12/18 10:00 O2 Sat by Pulse Oximetry (%) 94 L 08/12/18 08:44 Constitutional: Yes: No Distress HENT: Yes: Atraumatic Neck: Yes: Supple Cardiovascular: Yes: Regular Rate and Rhythm Respiratory: Yes: Rhonchi, Wheezes Gastrointestinal: Yes: Normal Bowel Sounds Extremities: Yes: WNL Edema: No Neurological: Yes: Alert, Oriented Labs: CBC, BMP 08/12/18 05:30 08/12/18 05:30 INR, PTT INR 1.49 (0.83-1.09) H 08/08/18 19:37 Problem List - Problems (1) Acute renal failure Assessment/Plan: on iv hydration monitor\ Code(s): N17.9 - ACUTE KIDNEY FAILURE, UNSPECIFIED Qualifiers: Acute renal failure type: unspecified Qualified Code(s): N17.9 - Acute kidney failure, unspecified (2) Altered mental status, unspecified Code(s): R41.82 - ALTERED MENTAL STATUS, UNSPECIFIED Qualifiers: Altered mental status type: somnolence Qualified Code(s): R40.0 - Somnolence (3) COPD with acute exacerbation Assessment/Plan: steroids duo nebs Code(s): J44.1 - CHRONIC OBSTRUCTIVE PULMONARY DISEASE W (ACUTE) EXACERBATION (4) Elevated troponin I level Code(s): R74.8 - ABNORMAL LEVELS OF OTHER SERUM ENZYMES (5) Hyperkalemia Code(s): E87.5 - HYPERKALEMIA (6) COPD (chronic obstructive pulmonary disease) Code(s): J44.9 - CHRONIC OBSTRUCTIVE PULMONARY DISEASE, UNSPECIFIED Qualifiers: (7) HIV Assessment/Plan: continue home meds Code(s): Z21 - ASYMPTOMATIC HUMAN IMMUNODEFICIENCY VIRUS INFECTION STATUS (8) HTN (hypertension) Assessment/Plan: monitor on meds Code(s): I10 - ESSENTIAL (PRIMARY) HYPERTENSION Qualifiers: Hypertension type: essential hypertension Qualified Code(s): I10 - Essential (primary) hypertension (9) Hyperlipidemia Code(s): E78.5 - HYPERLIPIDEMIA, UNSPECIFIED Qualifiers: Hyperlipidemia type: pure hypercholesterolemia Qualified Code(s): E78.00 - Pure hypercholesterolemia, unspecified; E78.0 - Pure hypercholesterolemia (10) PVD (peripheral vascular disease) Code(s): I73.9 - PERIPHERAL VASCULAR DISEASE, UNSPECIFIED (11) CHF (congestive heart failure) Code(s): I50.9 - HEART FAILURE, UNSPECIFIED Qualifiers: Heart failure type: diastolic Heart failure chronicity: chronic Qualified Code(s): I50.32 - Chronic diastolic (congestive) heart failure Assessment/Plan cc time 35 min
--- NOTE | 2018-08-12 14:05 | PN ---
Progress Note (short form) - Note Progress Note: covering dr bowser Problems 1. KRISTIAN 2. Hyperkalemia 3. HIV 4. hyponatremia 5. altered mental status 6. pulm HTN 7. htn 8. pvd 9. resp acidosis 10. resp failure requiring intubation Current Medications Abacavir/Dolutegravir/Lamivudine (Triumeq (Non-Formulary)) 1 each PO DAILY [facility] Last Admin: 08/12/18 10:57 Dose: 1 each Albuterol Sulfate (Ventolin 0.083% Nebulizer Soln -) 1 amp NEB Q6H PRN PRN Reason: SHORT OF BREATH/WHEEZING Last Admin: 08/10/18 18:15 Dose: 1 amp Albuterol/Ipratropium (Duoneb -) 1 amp NEB RQID [facility] Last Admin: 08/12/18 12:26 Dose: 1 amp Carvedilol (Coreg -) 12.5 mg PO BID [facility] Last Admin: 08/12/18 10:57 Dose: 12.5 mg Clopidogrel Bisulfate (Plavix -) 75 mg PO DAILY [facility] Last Admin: 08/12/18 10:57 Dose: 75 mg Heparin Sodium (Porcine) (Heparin -) 5,000 unit SQ BID [facility] Last Admin: 08/12/18 10:57 Dose: 5,000 unit Hydralazine HCl (Apresoline -) 50 mg NGT TID [facility] Last Admin: 08/12/18 05:05 Dose: 50 mg Propofol (Diprivan -) 1,000,000 mcg in 100 mls @ 1.66 mls/hr IVPB TITR [facility]; Protocol Last Admin: 08/12/18 12:18 Dose: 50 mcg/kg/min, 16.601 mls/hr Fentanyl 500 mcg/ Dextrose 100 mls @ 5 mls/hr IVPB TITR [facility]; Protocol Last Admin: 08/12/18 12:19 Dose: 125 mcg/hr, 25 mls/hr Losartan Potassium (Cozaar -) 50 mg PO BID [facility] Last Admin: 08/12/18 10:57 Dose: 50 mg Methylprednisolone Sodium Succinate (Solu-Medrol -) 80 mg IVPUSH Q8H-IV [facility] Pantoprazole Sodium (Protonix Iv) 40 mg IVPUSH DAILY [facility] Last Admin: 08/12/18 10:57 Dose: 40 mg Ranolazine (Ranexa -) 500 mg PO BID [facility] Last Admin: 08/12/18 10:57 Dose: 500 mg Spironolactone (Aldactone -) 25 mg NGT DAILY [facility] Last Admin: 08/12/18 10:57 Dose: 25 mg Last Vital Signs Temp Pulse Resp BP Pulse Ox 98.0 F 62 16 113/67 94 L 08/12/18 10:00 08/12/18 13:26 08/12/18 13:26 08/12/18 13:26 08/12/18 08:44 Gen: intubated, sedated Heart: RRR Lung: decreased breath sounds at the bases Abd: soft, nontender Ext: no edema CBC, BMP 08/12/18 05:30 08/12/18 05:30 IMP Prerenal azotemia met alkalosis anemia mild leukocytosis Plan- continue to ensure hydration monitor renal function
[2018-08-13] MEDS ORDERED: fentaNYL CITRATE 250 MCG/5 ML VIAL ONE ×4 (02:04→18:23)
[2018-08-13] MEDS: methylPREDNISolone NA SUCC 40 MG/1 ML VIAL IVPUSH SCH ×3 (02:45→18:09)
[2018-08-13 06:19] LABS: BASO % 0.1 % (0-2.0); HEMATOCRIT 30.6 % (32.4-45.2); HEMOGLOBIN 9.9 GM/dL (10.7-15.3); LYMPH % 4.4 % (8-40); MCH 30.6 pg (25.7-33.7); MCHC 32.2 g/dl (32.0-36.0); MEAN PLT VOLUME 6.8 fl (7.5-11.1); MONO % 12.6 % (3.8-10.2); NEUT % 82.9 % (42.8-82.8); PLATELET COUNT 267 K/MM3 (134-434); RBC 3.22 M/mm3 (3.60-5.2); RDW 15.2 % (11.6-15.6); WHITE BLOOD COUNT 12.6 K/mm3 (4.0-10.0)
[2018-08-13] MEDS: hydrALAZINE HCL 50 MG TABLET (FP) NGT SCH ×3 (06:45→22:00)
[2018-08-13 06:54] LABS: ALBUMIN 2.9 g/dl (3.4-5.0); ALK PHOS 60 U/L (45-117); ANION GAP 5 MMOL/L (8-16); BILIRUBIN,TOTAL 0.6 mg/dL (0.2-1); BLOOD UREA NITROGEN 31 mg/dL (7-18); CALCIUM 9.2 mg/dL (8.5-10.1); CHLORIDE 104 mmol/L (98-107); CO2 37 mmol/L (21-32); CREATININE 0.7 mg/dL (0.55-1.3); GLUCOSE,RANDOM 144 mg/dL (74-106); MAGNESIUM 2.1 mg/dL (1.8-2.4); POTASSIUM 4.4 mmol/L (3.5-5.1); SGOT/AST 18 U/L (15-37); SGPT/ALT 22 U/L (13-61); SODIUM 146 mmol/L (136-145); TOT PROT 6.3 g/dl (6.4-8.2)
[2018-08-13] MEDS: ALBUTEROL SO4 2.5/IPRATROPIUM 0.5 INH SOL 3 ML VIAL.NEB. NEB SCH ×4 (08:59→20:50)
[2018-08-13] MEDS ORDERED: PT OWN MED DRAWER 7, Y5N ONE (09:27)
[2018-08-13] MEDS: PANTOPRAZOLE SODIUM 40 MG VIAL IVPUSH SCH (09:41)
[2018-08-13] MEDS: LOSARTAN POTASSIUM 50 MG TABLET (FP) PO SCH ×2 (09:47→22:00)
[2018-08-13] MEDS: CLOPIDOGREL BISULFATE 75 MG TABLET (FP) PO SCH (09:47)
[2018-08-13] MEDS: HEPARIN NA (PORCINE) 5,000 UNITS/ML 1ML VIAL SQ SCH ×2 (09:48→22:00)
[2018-08-13] MEDS: RANOLAZINE E.R. 500 MG TABLET (FP) PO SCH ×2 (09:50→22:00)
[2018-08-13] MEDS: CARVEDILOL 12.5 MG TABLET (FP) PO SCH ×2 (09:51→22:00)
[2018-08-13] MEDS: SPIRONOLACTONE 25 MG TABLET (FP) NGT SCH (09:51)
--- NOTE | 2018-08-13 09:58 | PN ---
Progress Note, Physician Chief Complaint: Pt intubated and sedated. Her daughter (unit aide in ER) is at bedside. History of Present Illness: 67 y/o black female [facility] status and decreased PO intake for the past two days. Pt unable or unwilling to participate in the interview. Pts daughter was the one who saw the pt at the facility today and requested the transfer to the hospital. Pt was recently discharged from this facility on 08 July 2018 for acute CHF exacerbation. ECHO at that time revealed normal LVEF, moderate concentric left ventricular hypertrophy, right atrium moderate to severely dilated, severe tricuspid regurg, RV pressure is > 60 mmhg, RV moderately dilated, septal motion consistent with conduction abnormality In [facility] Such for physical therapy following hospitalization. Her daughter says she had been alert, oriented, and physically active until the past two days. PCP: None. In process of establishing care with Dr. Kirk ID: Dr. Blake - Current Medication List Current Medications: Active Medications Abacavir/Dolutegravir/Lamivudine (Triumeq (Non-Formulary)) 1 each PO DAILY [facility] Last Admin: 08/12/18 10:57 Dose: 1 each Albuterol Sulfate (Ventolin 0.083% Nebulizer Soln -) 1 amp NEB Q6H PRN PRN Reason: SHORT OF BREATH/WHEEZING Last Admin: 08/10/18 18:15 Dose: 1 amp Albuterol/Ipratropium (Duoneb -) 1 amp NEB RQID [facility] Last Admin: 08/13/18 08:59 Dose: 1 amp Carvedilol (Coreg -) 12.5 mg PO BID [facility] Last Admin: 08/12/18 21:55 Dose: 12.5 mg Clopidogrel Bisulfate (Plavix -) 75 mg PO DAILY [facility] Last Admin: 08/12/18 10:57 Dose: 75 mg Heparin Sodium (Porcine) (Heparin -) 5,000 unit SQ BID [facility] Last Admin: 08/12/18 21:55 Dose: 5,000 unit Hydralazine HCl (Apresoline -) 50 mg NGT TID [facility] Last Admin: 08/13/18 06:45 Dose: 50 mg Propofol (Diprivan -) 1,000,000 mcg in 100 mls @ 1.66 mls/hr IVPB TITR [facility]; Protocol Last Admin: 08/12/18 12:18 Dose: 50 mcg/kg/min, 16.601 mls/hr Fentanyl 500 mcg/ Dextrose 100 mls @ 5 mls/hr IVPB TITR [facility]; Protocol Last Titration: 08/12/18 22:03 Dose: 150 mcg/hr, 30 mls/hr Losartan Potassium (Cozaar -) 50 mg PO BID [facility] Last Admin: 08/12/18 21:56 Dose: 50 mg Methylprednisolone Sodium Succinate (Solu-Medrol -) 80 mg IVPUSH Q8H-IV [facility] Last Admin: 08/13/18 02:45 Dose: 80 mg Pantoprazole Sodium (Protonix Iv) 40 mg IVPUSH DAILY [facility] Last Admin: 08/12/18 10:57 Dose: 40 mg Ranolazine (Ranexa -) 500 mg PO BID [facility] Last Admin: 08/12/18 21:55 Dose: 500 mg Spironolactone (Aldactone -) 25 mg NGT DAILY [facility] Last Admin: 08/12/18 10:57 Dose: 25 mg - Objective Vital Signs: Vital Signs Temperature 98.5 F 08/12/18 22:00 Pulse Rate 65 08/13/18 08:58 Respiratory Rate 16 08/13/18 09:00 Blood Pressure 143/74 08/13/18 08:00 O2 Sat by Pulse Oximetry (%) 96 08/13/18 09:00 Constitutional: Yes: Thin Eyes: Yes: Conjunctiva Clear Neck: Yes: Decreased ROM Cardiovascular: Yes: S1, S2, S4 Respiratory: Yes: Mechanically Ventilated Gastrointestinal: Yes: Soft Genitourinary: No: Anuria Musculoskeletal: Yes: Muscle Weakness Extremities: Yes: Other (sedated) Edema: No Peripheral Pulses WNL: Yes Integumentary: Yes: WNL Neurological: Yes: Unresponsive Psychiatric: Yes: Other Labs: CBC, BMP 08/13/18 05:30 08/13/18 05:30 INR, PTT INR 1.49 (0.83-1.09) H 08/08/18 19:37 - ....Imaging Chest X-ray: Image Reviewed EKG: Image Reviewed Problem List - Problems (1) Altered mental status, unspecified Code(s): R41.82 - ALTERED MENTAL STATUS, UNSPECIFIED Qualifiers: Altered mental status type: somnolence Qualified Code(s): R40.0 - Somnolence (2) COPD with acute exacerbation Assessment/Plan: [facility]u with lock maintenance supervisor. Code(s): J44.1 - CHRONIC OBSTRUCTIVE PULMONARY DISEASE W (ACUTE) EXACERBATION (3) COPD (chronic obstructive pulmonary disease) Code(s): J44.9 - CHRONIC OBSTRUCTIVE PULMONARY DISEASE, UNSPECIFIED Qualifiers: (4) HIV Assessment/Plan: f/u with ID for medication regimen Code(s): Z21 - ASYMPTOMATIC HUMAN IMMUNODEFICIENCY VIRUS INFECTION STATUS (5) HTN (hypertension) Code(s): I10 - ESSENTIAL (PRIMARY) HYPERTENSION Qualifiers: Hypertension type: essential hypertension Qualified Code(s): I10 - Essential (primary) hypertension (6) Hyperlipidemia Code(s): E78.5 - HYPERLIPIDEMIA, UNSPECIFIED Qualifiers: Hyperlipidemia type: pure hypercholesterolemia Qualified Code(s): E78.00 - Pure hypercholesterolemia, unspecified; E78.0 - Pure hypercholesterolemia (7) S/P CABG (coronary artery bypass graft) Assessment/Plan: Continue clopidogrel, Ranexa. Restarted ACEI and RAAS now that renal function has improved. On hydralazine, carvedilol. TSH WNL. F/u lipids. Code(s): Z95.1 - PRESENCE OF AORTOCORONARY BYPASS GRAFT (8) Nicotine dependence Code(s): F17.200 - NICOTINE DEPENDENCE, UNSPECIFIED, UNCOMPLICATED (9) Elevated troponin I level Assessment/Plan: multiple factors may contribute to demand iwschemia leading to mild elevation, including respirarlory failure, sepsis, anemia, CHF. CKMB relative index is low. EKG: NSR; LAE; no acute STT changes. Code(s): R74.8 - ABNORMAL LEVELS OF OTHER SERUM ENZYMES (10) Hyperkalemia Assessment/Plan: 5.5-->5.0. F/u all electroytes. Code(s): E87.5 - HYPERKALEMIA Assessment/Plan CCU time spent:35 minutes
--- NOTE | 2018-08-13 10:06 | PN ---
Progress Note, Physician History of Present Illness: Renal f/u Pt sedated on the ventilator with FiO2 of 40% On Propofol and Fentanyl Serum sodium trending upward - Current Medication List Current Medications: Active Medications Abacavir/Dolutegravir/Lamivudine (Triumeq (Non-Formulary)) 1 each PO DAILY [facility] Last Admin: 08/12/18 10:57 Dose: 1 each Albuterol Sulfate (Ventolin 0.083% Nebulizer Soln -) 1 amp NEB Q6H PRN PRN Reason: SHORT OF BREATH/WHEEZING Last Admin: 08/10/18 18:15 Dose: 1 amp Albuterol/Ipratropium (Duoneb -) 1 amp NEB RQID [facility] Last Admin: 08/13/18 08:59 Dose: 1 amp Carvedilol (Coreg -) 12.5 mg PO BID [facility] Last Admin: 08/13/18 09:51 Dose: 12.5 mg Clopidogrel Bisulfate (Plavix -) 75 mg PO DAILY [facility] Last Admin: 08/13/18 09:47 Dose: 75 mg Heparin Sodium (Porcine) (Heparin -) 5,000 unit SQ BID [facility] Last Admin: 08/13/18 09:48 Dose: 5,000 unit Hydralazine HCl (Apresoline -) 50 mg NGT TID [facility] Last Admin: 08/13/18 06:45 Dose: 50 mg Propofol (Diprivan -) 1,000,000 mcg in 100 mls @ 1.66 mls/hr IVPB TITR [facility]; Protocol Last Admin: 08/12/18 12:18 Dose: 50 mcg/kg/min, 16.601 mls/hr Fentanyl 500 mcg/ Dextrose 100 mls @ 5 mls/hr IVPB TITR [facility]; Protocol Last Titration: 08/12/18 22:03 Dose: 150 mcg/hr, 30 mls/hr Losartan Potassium (Cozaar -) 50 mg PO BID [facility] Last Admin: 08/13/18 09:47 Dose: 50 mg Methylprednisolone Sodium Succinate (Solu-Medrol -) 80 mg IVPUSH Q8H-IV [facility] Last Admin: 08/13/18 09:31 Dose: 80 mg Pantoprazole Sodium (Protonix Iv) 40 mg IVPUSH DAILY [facility] Last Admin: 08/13/18 09:41 Dose: 40 mg Ranolazine (Ranexa -) 500 mg PO BID [facility] Last Admin: 08/13/18 09:50 Dose: 500 mg Spironolactone (Aldactone -) 25 mg NGT DAILY [facility] Last Admin: 08/13/18 09:51 Dose: 25 mg - Objective Vital Signs: Vital Signs Temperature 98.5 F 08/12/18 22:00 Pulse Rate 65 08/13/18 08:58 Respiratory Rate 16 08/13/18 09:00 Blood Pressure 143/74 08/13/18 08:00 O2 Sat by Pulse Oximetry (%) 96 08/13/18 09:00 Constitutional: Yes: No Distress Cardiovascular: Yes: S1, S2 Respiratory: Yes: CTA Bilaterally, Other (Equal air entry bilaterally) Gastrointestinal: Yes: Soft, Distention Edema: No Labs: CBC, BMP 08/13/18 05:30 08/13/18 05:30 INR, PTT INR 1.49 (0.83-1.09) H 08/08/18 19:37 Assessment/Plan Impression 1. S/P KRISTIAN and now with high BUN to Cr ratio on steroids 2. S/P Hyperkalemia 3. HIV 4. hypernatremia 5. altered mental status 6. pulm HTN 7. htn 8. pvd 9. resp acidosis 10. resp failure requiring intubation Plan - Increase free water via OGT - Vent support - Rpt labs in am - Discussed with ICU Hospitalist and Resident Dr Terrazas
[2018-08-13] MEDS: ABACAVIR/DOLUTEGRAVIR/LAMIVUDI (TRIUMEQ) TABLET -NF PO SCH (12:02)
--- NOTE | 2018-08-13 12:48 | PN ---
Progress Note, Physician History of Present Illness: intubated - Current Medication List Current Medications: Active Medications Abacavir/Dolutegravir/Lamivudine (Triumeq (Non-Formulary)) 1 each PO DAILY [facility] Last Admin: 08/13/18 12:02 Dose: 1 each Albuterol Sulfate (Ventolin 0.083% Nebulizer Soln -) 1 amp NEB Q6H PRN PRN Reason: SHORT OF BREATH/WHEEZING Last Admin: 08/10/18 18:15 Dose: 1 amp Albuterol/Ipratropium (Duoneb -) 1 amp NEB RQID [facility] Last Admin: 08/13/18 12:04 Dose: 1 amp Carvedilol (Coreg -) 12.5 mg PO BID [facility] Last Admin: 08/13/18 09:51 Dose: 12.5 mg Clopidogrel Bisulfate (Plavix -) 75 mg PO DAILY [facility] Last Admin: 08/13/18 09:47 Dose: 75 mg Heparin Sodium (Porcine) (Heparin -) 5,000 unit SQ BID [facility] Last Admin: 08/13/18 09:48 Dose: 5,000 unit Hydralazine HCl (Apresoline -) 50 mg NGT TID [facility] Last Admin: 08/13/18 06:45 Dose: 50 mg Propofol (Diprivan -) 1,000,000 mcg in 100 mls @ 1.66 mls/hr IVPB TITR [facility]; Protocol Last Titration: 08/13/18 07:00 Dose: 50 mcg/kg/min, 16.601 mls/hr Fentanyl 500 mcg/ Dextrose 100 mls @ 5 mls/hr IVPB TITR [facility]; Protocol Last Titration: 08/13/18 07:00 Dose: 150 mcg/hr, 30 mls/hr Losartan Potassium (Cozaar -) 50 mg PO BID [facility] Last Admin: 08/13/18 09:47 Dose: 50 mg Methylprednisolone Sodium Succinate (Solu-Medrol -) 80 mg IVPUSH Q8H-IV [facility] Last Admin: 08/13/18 09:31 Dose: 80 mg Pantoprazole Sodium (Protonix Iv) 40 mg IVPUSH DAILY [facility] Last Admin: 08/13/18 09:41 Dose: 40 mg Ranolazine (Ranexa -) 500 mg PO BID [facility] Last Admin: 08/13/18 09:50 Dose: 500 mg Spironolactone (Aldactone -) 25 mg NGT DAILY [facility] Last Admin: 08/13/18 09:51 Dose: 25 mg - Objective Vital Signs: Vital Signs Temperature 99.0 F 08/13/18 11:45 Pulse Rate 64 08/13/18 11:45 Respiratory Rate 16 08/13/18 12:03 Blood Pressure 117/67 08/13/18 10:00 O2 Sat by Pulse Oximetry (%) 95 08/13/18 10:00 Constitutional: Yes: No Distress HENT: Yes: Atraumatic Neck: Yes: Supple Cardiovascular: Yes: Regular Rate and Rhythm Respiratory: Yes: CTA Bilaterally Gastrointestinal: Yes: Normal Bowel Sounds Extremities: Yes: WNL Edema: No Neurological: Yes: Other (sedated) Labs: CBC, BMP 08/13/18 05:30 08/13/18 05:30 INR, PTT INR 1.49 (0.83-1.09) H 08/08/18 19:37 Problem List - Problems (1) Acute renal failure Assessment/Plan: on iv hydration monitor\ Code(s): N17.9 - ACUTE KIDNEY FAILURE, UNSPECIFIED Qualifiers: Acute renal failure type: unspecified Qualified Code(s): N17.9 - Acute kidney failure, unspecified (2) Altered mental status, unspecified Code(s): R41.82 - ALTERED MENTAL STATUS, UNSPECIFIED Qualifiers: Altered mental status type: somnolence Qualified Code(s): R40.0 - Somnolence (3) COPD with acute exacerbation Code(s): J44.1 - CHRONIC OBSTRUCTIVE PULMONARY DISEASE W (ACUTE) EXACERBATION (4) Elevated troponin I level Code(s): R74.8 - ABNORMAL LEVELS OF OTHER SERUM ENZYMES (5) Hyperkalemia Code(s): E87.5 - HYPERKALEMIA (6) COPD (chronic obstructive pulmonary disease) Code(s): J44.9 - CHRONIC OBSTRUCTIVE PULMONARY DISEASE, UNSPECIFIED Qualifiers: (7) HIV Assessment/Plan: continue home meds Code(s): Z21 - ASYMPTOMATIC HUMAN IMMUNODEFICIENCY VIRUS INFECTION STATUS (8) HTN (hypertension) Assessment/Plan: monitor on meds Code(s): I10 - ESSENTIAL (PRIMARY) HYPERTENSION Qualifiers: Hypertension type: essential hypertension Qualified Code(s): I10 - Essential (primary) hypertension (9) Hyperlipidemia Code(s): E78.5 - HYPERLIPIDEMIA, UNSPECIFIED Qualifiers: Hyperlipidemia type: pure hypercholesterolemia Qualified Code(s): E78.00 - Pure hypercholesterolemia, unspecified; E78.0 - Pure hypercholesterolemia (10) PVD (peripheral vascular disease) Code(s): I73.9 - PERIPHERAL VASCULAR DISEASE, UNSPECIFIED (11) CHF (congestive heart failure) Code(s): I50.9 - HEART FAILURE, UNSPECIFIED Qualifiers: Heart failure type: diastolic Heart failure chronicity: chronic Qualified Code(s): I50.32 - Chronic diastolic (congestive) heart failure (12) Respiratory failure requiring intubation Assessment/Plan: intubated Code(s): J96.90 - RESPIRATORY FAILURE, UNSP, UNSP W HYPOXIA OR HYPERCAPNIA Assessment/Plan cc time in icu 35 min
[2018-08-13] MEDS ORDERED: ACETAMINOPHEN 650 MG/20.3 ML ORAL SOLUTION (CUPS) PO ONE (16:14)
[2018-08-13 18:22] LABS: COCAINE, UR NEGATIVE ng/ml (CUTOFF=300); METHADONE, UR NEGATIVE ng/ml (CUTOFF=300); PHENCYCLIDINE,URINE NEGATIVE ng/ml (CUTOFF=25); URINE AMPHETAMINES NEGATIVE ng/ml (CUTOFF=500); URINE BARBITURATES NEGATIVE ng/ml (CUTOFF=200); URINE BENZODIAZEPINES NEGATIVE ng/ml (CUTOFF=200)
[2018-08-13 18:26] LABS: OPIATES, URI POSITIVE ng/ml (CUTOFF=300)
--- NOTE | 2018-08-13 18:28 | PN ---
Progress Note (short form) - Note Progress Note: PULM/CCM Pt Seen & Examined in the ICU. Remains sedated on AC mode of Vent. Impressive secretions on deep Suctioning. Active Medications Abacavir/Dolutegravir/Lamivudine (Triumeq (Non-Formulary)) 1 each PO DAILY [facility] Last Admin: 08/13/18 12:02 Dose: 1 each Albuterol Sulfate (Ventolin 0.083% Nebulizer Soln -) 1 amp NEB Q6H PRN PRN Reason: SHORT OF BREATH/WHEEZING Last Admin: 08/10/18 18:15 Dose: 1 amp Albuterol/Ipratropium (Duoneb -) 1 amp NEB RQID [facility] Last Admin: 08/13/18 20:50 Dose: 1 amp Carvedilol (Coreg -) 12.5 mg PO BID [facility] Last Admin: 08/13/18 22:00 Dose: 12.5 mg Clopidogrel Bisulfate (Plavix -) 75 mg PO DAILY [facility] Last Admin: 08/13/18 09:47 Dose: 75 mg Heparin Sodium (Porcine) (Heparin -) 5,000 unit SQ BID [facility] Last Admin: 08/13/18 22:00 Dose: 5,000 unit Hydralazine HCl (Apresoline -) 50 mg NGT TID [facility] Last Admin: 08/13/18 22:00 Dose: 50 mg Propofol (Diprivan -) 1,000,000 mcg in 100 mls @ 1.66 mls/hr IVPB TITR [facility]; Protocol Last Titration: 08/13/18 18:00 Dose: 50 mcg/kg/min, 16.601 mls/hr Fentanyl 500 mcg/ Dextrose 100 mls @ 5 mls/hr IVPB TITR [facility]; Protocol Last Titration: 08/13/18 18:00 Dose: 100 mcg/hr, 20 mls/hr Losartan Potassium (Cozaar -) 50 mg PO BID [facility] Last Admin: 08/13/18 22:00 Dose: 50 mg Methylprednisolone Sodium Succinate (Solu-Medrol -) 80 mg IVPUSH Q8H-IV [facility] Last Admin: 08/13/18 18:09 Dose: 80 mg Pantoprazole Sodium (Protonix Iv) 40 mg IVPUSH DAILY [facility] Last Admin: 08/13/18 09:41 Dose: 40 mg Ranolazine (Ranexa -) 500 mg PO BID [facility] Last Admin: 04/06/19 22:00 Dose: 500 mg Spironolactone (Aldactone -) 25 mg NGT DAILY [facility] Last Admin: 08/13/18 09:51 Dose: 25 mg Vital Signs Period Temp Pulse Resp BP Sys/Buck Pulse Ox Last 24 Hr 98.8 F-101.5 F 64-80 16-26 117-143/62-74 95-96 Intake & Output 08/10/18 08/11/18 08/12/18 08/13/18 23:59 23:59 23:59 23:59 Intake Total 50 907.2 944.5 1199 Output Total 2500 1300 1900 2200 Balance -2450 -392.8 -955.5 -1001 Weight 55.338 kg 54.2 kg 54.2 kg GEN: Middle aged lady, sedated in bed, intubated, cachectic, ill PULM: diminished Breath sounds CV: nml S1, S2, RR, unable to appreciate any G/M/R Abd: + BS S/S N/T N/DX4Q Ext: + Pulses, WWPX4, no edema CBC, BMP 08/13/18 05:30 08/13/18 05:30 Microbiology 08/08/18 19:37 Blood - Peripheral Venous Blood Culture - Final NO GROWTH AFTER 5 DAYS INCUBATION 08/08/18 19:37 Blood - Peripheral Venous Blood Culture - Final NO GROWTH AFTER 5 DAYS INCUBATION 08/08/18 20:39 Urine - Urine - Catheterized Urine Culture - Final NO GROWTH OBTAINED CXR 08/13: A single AP view of the chest is been submitted. Since 08/12/2018 at 0956 hours, the large heart, unfolded aorta, prominent irving, sternal sutures and clips, endotracheal tube and nasogastric tube as well as progressive left infiltrate is noted. There are no congestive changes at this time. There are left breast clips. Correlation recommended ASSESS: Acute on Chronic Hypoxic and Hypercapneic Respiratory Failure Acute COPD Exacerbation Acute Kidney Injury Altered Mental Status LV Diastolic/Systolic Dysfunction Severe Pulmonary HTN CAD s/p CABG HIV PAD HTN PLAN: - Vent settings adjusted to allow for prolonged I:E Ratio - Sedate for Vent Rest/Sync - Steroids - inhaled bronchodilators - O2 to keep Spo2 >90% - Enteral feeds - monitor urine output, creatinine - Monitor lytes - SBT - DVT prophylaxis - Continue ICU monitoring GEOVANNA GARDNER[facility] ICU PULM/CCM [id number]
[2018-08-13 18:47] LABS: EPI CELLS >36 /HPF (0-5); PH,URINE 5.5 (5.0-8.0); URINE APPEARANCE CLOUDY; URINE BILIRUBIN NEGATIVE (NEGATIVE); URINE CASTS 85 /hpf (0-8); URINE COLOR YELLOW; URINE GLUCOSE (UA) NEGATIVE (NEGATIVE); URINE KETONE NEGATIVE (NEGATIVE); URINE LEUK ESTERASE 3+ (NEGATIVE); URINE NITRITE NEGATIVE (NEGATIVE); URINE PROTEIN TRACE (NEGATIVE); URINE RBC 76 /hpf (0-4); URINE WBC 15 /hpf (0-5)
[2018-08-13 19:48] LABS: URINE BACTERIA MODERATE /hpf (NEGATIVE)
[2018-08-14] MEDS ORDERED: fentaNYL CITRATE 250 MCG/5 ML VIAL ONE ×4 (01:43→18:54)
[2018-08-14] MEDS: methylPREDNISolone NA SUCC 40 MG/1 ML VIAL IVPUSH SCH ×3 (02:33→18:01)
[2018-08-14] MEDS: hydrALAZINE HCL 50 MG TABLET (FP) NGT SCH ×3 (06:33→21:18)
--- NOTE | 2018-08-14 08:21 | PN ---
Progress Note, Physician History of Present Illness: Renal f/u Pt remains sedated on the ventilator with FiO2 of 40% On Propofol and Fentanyl - Current Medication List Current Medications: Active Medications Abacavir/Dolutegravir/Lamivudine (Triumeq (Non-Formulary)) 1 each PO DAILY [facility] Last Admin: 08/13/18 12:02 Dose: 1 each Carvedilol (Coreg -) 12.5 mg PO BID [facility] Last Admin: 08/13/18 22:00 Dose: 12.5 mg Clopidogrel Bisulfate (Plavix -) 75 mg PO DAILY [facility] Last Admin: 08/13/18 09:47 Dose: 75 mg Heparin Sodium (Porcine) (Heparin -) 5,000 unit SQ BID [facility] Last Admin: 08/13/18 22:00 Dose: 5,000 unit Hydralazine HCl (Apresoline -) 50 mg NGT TID [facility] Last Admin: 08/14/18 06:33 Dose: 50 mg Propofol (Diprivan -) 1,000,000 mcg in 100 mls @ 1.66 mls/hr IVPB TITR [facility]; Protocol Last Titration: 08/13/18 18:00 Dose: 50 mcg/kg/min, 16.601 mls/hr Fentanyl 500 mcg/ Dextrose 100 mls @ 5 mls/hr IVPB TITR [facility]; Protocol Last Titration: 08/13/18 18:00 Dose: 100 mcg/hr, 20 mls/hr Losartan Potassium (Cozaar -) 50 mg PO BID [facility] Last Admin: 08/13/18 22:00 Dose: 50 mg Methylprednisolone Sodium Succinate (Solu-Medrol -) 80 mg IVPUSH Q8H-IV [facility] Last Admin: 08/14/18 02:33 Dose: 80 mg Pantoprazole Sodium (Protonix Iv) 40 mg IVPUSH DAILY [facility] Last Admin: 08/13/18 09:41 Dose: 40 mg Ranolazine (Ranexa -) 500 mg PO BID [facility] Last Admin: 08/13/18 22:00 Dose: 500 mg Spironolactone (Aldactone -) 25 mg NGT DAILY [facility] Last Admin: 08/13/18 09:51 Dose: 25 mg - Objective Vital Signs: Vital Signs Temperature 99 F 08/13/18 18:00 Pulse Rate 85 08/14/18 07:30 Respiratory Rate 29 H 08/14/18 07:30 Blood Pressure 109/67 08/14/18 07:30 O2 Sat by Pulse Oximetry (%) 97 08/14/18 07:30 Constitutional: Yes: No Distress Cardiovascular: Yes: S1, S2 Respiratory: Yes: Other (Equal air entry B/L) Gastrointestinal: Yes: Soft. No: Distention Edema: No Labs: CBC, BMP 08/13/18 05:30 08/13/18 05:30 INR, PTT INR 1.49 (0.83-1.09) H 08/08/18 19:37 Assessment/Plan Impression 1. S/P KRISTIAN and now with high BUN to Cr ratio on steroids 2. S/P Hyperkalemia 3. HIV 4. hypernatremia 5. altered mental status 6. pulm HTN 7. htn 8. pvd 9. resp acidosis 10. resp failure requiring intubation Plan - May need to increase the free water via OGT if the serum Na hasn't improved - Vent support - Rpt labs in am - Discussed with ICU Hospitalist Dr Terrazas
[2018-08-14] MEDS: SPIRONOLACTONE 25 MG TABLET (FP) NGT SCH (10:11)
[2018-08-14] MEDS: CARVEDILOL 12.5 MG TABLET (FP) PO SCH ×2 (10:11→21:19)
[2018-08-14] MEDS: FENTANYL INJECTION 500 MCG in DEXTROSE 5%-WATER - 90 ML IVPB SCH ×5 (10:12→21:18)
[2018-08-14] MEDS: ABACAVIR/DOLUTEGRAVIR/LAMIVUDI (TRIUMEQ) TABLET -NF PO SCH (10:13)
[2018-08-14] MEDS: RANOLAZINE E.R. 500 MG TABLET (FP) PO SCH ×2 (10:13→21:18)
[2018-08-14] MEDS: HEPARIN NA (PORCINE) 5,000 UNITS/ML 1ML VIAL SQ SCH ×2 (10:14→21:19)
[2018-08-14] MEDS: CLOPIDOGREL BISULFATE 75 MG TABLET (FP) PO SCH (10:14)
[2018-08-14] MEDS: PANTOPRAZOLE SODIUM 40 MG VIAL IVPUSH SCH (10:14)
[2018-08-14] MEDS: LOSARTAN POTASSIUM 50 MG TABLET (FP) PO SCH ×2 (10:14→21:18)
--- NOTE | 2018-08-14 13:19 | PN ---
Progress Note (short form) - Note Progress Note: PULM/CCM Pt Seen & Examined in the ICU. Remains sedated on AC mode of Vent. Thick secretions on deep Suctioning. Active Medications Abacavir/Dolutegravir/Lamivudine (Triumeq (Non-Formulary)) 1 each PO DAILY [facility] Last Admin: 08/14/18 10:13 Dose: 1 each Carvedilol (Coreg -) 12.5 mg PO BID [facility] Last Admin: 08/14/18 10:11 Dose: 12.5 mg Clopidogrel Bisulfate (Plavix -) 75 mg PO DAILY [facility] Last Admin: 08/14/18 10:14 Dose: 75 mg Heparin Sodium (Porcine) (Heparin -) 5,000 unit SQ BID [facility] Last Admin: 08/14/18 10:14 Dose: 5,000 unit Hydralazine HCl (Apresoline -) 50 mg NGT TID [facility] Last Admin: 08/14/18 06:33 Dose: 50 mg Propofol (Diprivan -) 1,000,000 mcg in 100 mls @ 1.66 mls/hr IVPB TITR [facility]; Protocol Last Titration: 08/13/18 18:00 Dose: 50 mcg/kg/min, 16.601 mls/hr Fentanyl 500 mcg/ Dextrose 100 mls @ 5 mls/hr IVPB TITR [facility]; Protocol Last Admin: 08/14/18 10:12 Dose: 100 mcg/hr, 20 mls/hr Losartan Potassium (Cozaar -) 50 mg PO BID [facility] Last Admin: 08/14/18 10:14 Dose: 50 mg Methylprednisolone Sodium Succinate (Solu-Medrol -) 80 mg IVPUSH Q8H-IV [facility] Last Admin: 08/14/18 10:13 Dose: 80 mg Pantoprazole Sodium (Protonix Iv) 40 mg IVPUSH DAILY [facility] Last Admin: 08/14/18 10:14 Dose: 40 mg Ranolazine (Ranexa -) 500 mg PO BID [facility] Last Admin: 08/14/18 10:13 Dose: 500 mg Spironolactone (Aldactone -) 25 mg NGT DAILY [facility] Last Admin: 08/14/18 10:11 Dose: 25 mg Vital Signs Period Temp Pulse Resp BP Sys/Buck Pulse Ox Last 24 Hr 99 F-101.5 F 65-85 16-29 108-135/61-77 95-97 Intake & Output 08/11/18 08/12/18 08/13/18 08/14/18 23:59 23:59 23:59 23:59 Intake Total 907.2 944.5 1199 Output Total 1300 1900 2200 1200 Balance -392.8 -955.5 -1001 -1200 Weight 54.2 kg 54.2 kg GEN: Middle aged lady, sedated in bed, intubated, cachectic, ill PULM: diminished Breath sounds CV: nml S1, S2, RR, unable to appreciate any G/M/R Abd: + BS S/S N/T N/DX4Q Ext: + Pulses, WWPX4, no edema CBC, BMP 08/13/18 05:30 08/13/18 05:30 Microbiology 08/08/18 19:37 Blood - Peripheral Venous Blood Culture - Final NO GROWTH AFTER 5 DAYS INCUBATION 08/08/18 19:37 Blood - Peripheral Venous Blood Culture - Final NO GROWTH AFTER 5 DAYS INCUBATION 08/08/18 20:39 Urine - Urine - Catheterized Urine Culture - Final NO GROWTH OBTAINED CXR 08/13: A single AP view of the chest is been submitted. Since 08/12/2018 at 0956 hours, the large heart, unfolded aorta, prominent irving, sternal sutures and clips, endotracheal tube and nasogastric tube as well as progressive left infiltrate is noted. There are no congestive changes at this time. There are left breast clips. Correlation recommended ASSESS: Acute on Chronic Hypoxic and Hypercapneic Respiratory Failure Acute COPD Exacerbation Acute Kidney Injury Altered Mental Status LV Diastolic/Systolic Dysfunction Severe Pulmonary HTN CAD s/p CABG HIV PAD HTN PLAN: - Vent settings adjusted to allow for prolonged I:E Ratio - Sedate for Vent Rest/Sync - Steroids - inhaled bronchodilators - O2 to keep Spo2 >90% - Enteral feeds - monitor urine output, creatinine - Monitor lytes - SBT - DVT prophylaxis - Continue ICU monitoring GEOVANNA G[facility] ICU PULM/[facility] [id number]
--- NOTE | 2018-08-14 14:21 | PN ---
Progress Note, Physician History of Present Illness: intubated - Current Medication List Current Medications: Active Medications Abacavir/Dolutegravir/Lamivudine (Triumeq (Non-Formulary)) 1 each PO DAILY [facility] Last Admin: 08/14/18 10:13 Dose: 1 each Carvedilol (Coreg -) 12.5 mg PO BID [facility] Last Admin: 08/14/18 10:11 Dose: 12.5 mg Clopidogrel Bisulfate (Plavix -) 75 mg PO DAILY [facility] Last Admin: 08/14/18 10:14 Dose: 75 mg Heparin Sodium (Porcine) (Heparin -) 5,000 unit SQ BID [facility] Last Admin: 08/14/18 10:14 Dose: 5,000 unit Hydralazine HCl (Apresoline -) 50 mg NGT TID [facility] Last Admin: 08/14/18 06:33 Dose: 50 mg Propofol (Diprivan -) 1,000,000 mcg in 100 mls @ 1.66 mls/hr IVPB TITR [facility]; Protocol Last Titration: 08/13/18 18:00 Dose: 50 mcg/kg/min, 16.601 mls/hr Fentanyl 500 mcg/ Dextrose 100 mls @ 5 mls/hr IVPB TITR [facility]; Protocol Last Admin: 08/14/18 10:12 Dose: 100 mcg/hr, 20 mls/hr Losartan Potassium (Cozaar -) 50 mg PO BID [facility] Last Admin: 08/14/18 10:14 Dose: 50 mg Methylprednisolone Sodium Succinate (Solu-Medrol -) 80 mg IVPUSH Q8H-IV [facility] Last Admin: 08/14/18 10:13 Dose: 80 mg Pantoprazole Sodium (Protonix Iv) 40 mg IVPUSH DAILY [facility] Last Admin: 08/14/18 10:14 Dose: 40 mg Ranolazine (Ranexa -) 500 mg PO BID [facility] Last Admin: 08/14/18 10:13 Dose: 500 mg Spironolactone (Aldactone -) 25 mg NGT DAILY [facility] Last Admin: 08/14/18 10:11 Dose: 25 mg - Objective Vital Signs: Vital Signs Temperature 99.1 F 08/14/18 13:00 Pulse Rate 73 08/14/18 13:00 Respiratory Rate 23 H 08/14/18 13:39 Blood Pressure 122/65 08/14/18 13:00 O2 Sat by Pulse Oximetry (%) 95 08/14/18 08:30 Constitutional: Yes: No Distress HENT: Yes: Atraumatic Neck: Yes: Supple Cardiovascular: Yes: Regular Rate and Rhythm Respiratory: Yes: Rhonchi Gastrointestinal: Yes: Normal Bowel Sounds Extremities: Yes: WNL Edema: No Peripheral Pulses WNL: Yes Labs: CBC, BMP 08/13/18 05:30 08/13/18 05:30 INR, PTT INR 1.49 (0.83-1.09) H 08/08/18 19:37 Problem List - Problems (1) Acute renal failure Assessment/Plan: on iv hydration monitor\ Code(s): N17.9 - ACUTE KIDNEY FAILURE, UNSPECIFIED Qualifiers: Acute renal failure type: unspecified Qualified Code(s): N17.9 - Acute kidney failure, unspecified (2) Altered mental status, unspecified Code(s): R41.82 - ALTERED MENTAL STATUS, UNSPECIFIED Qualifiers: Altered mental status type: somnolence Qualified Code(s): R40.0 - Somnolence (3) COPD with acute exacerbation Assessment/Plan: steroids duo nebs INTUBATED Code(s): J44.1 - CHRONIC OBSTRUCTIVE PULMONARY DISEASE W (ACUTE) EXACERBATION (4) Elevated troponin I level Code(s): R74.8 - ABNORMAL LEVELS OF OTHER SERUM ENZYMES (5) Hyperkalemia Code(s): E87.5 - HYPERKALEMIA (6) COPD (chronic obstructive pulmonary disease) Code(s): J44.9 - CHRONIC OBSTRUCTIVE PULMONARY DISEASE, UNSPECIFIED Qualifiers: (7) HIV Assessment/Plan: continue home meds Code(s): Z21 - ASYMPTOMATIC HUMAN IMMUNODEFICIENCY VIRUS INFECTION STATUS (8) HTN (hypertension) Assessment/Plan: monitor on meds Code(s): I10 - ESSENTIAL (PRIMARY) HYPERTENSION Qualifiers: Hypertension type: essential hypertension Qualified Code(s): I10 - Essential (primary) hypertension (9) Hyperlipidemia Code(s): E78.5 - HYPERLIPIDEMIA, UNSPECIFIED Qualifiers: Hyperlipidemia type: pure hypercholesterolemia Qualified Code(s): E78.00 - Pure hypercholesterolemia, unspecified; E78.0 - Pure hypercholesterolemia (10) PVD (peripheral vascular disease) Code(s): I73.9 - PERIPHERAL VASCULAR DISEASE, UNSPECIFIED (11) CHF (congestive heart failure) Code(s): I50.9 - HEART FAILURE, UNSPECIFIED Qualifiers: Heart failure type: diastolic Heart failure chronicity: chronic Qualified Code(s): I50.32 - Chronic diastolic (congestive) heart failure Assessment/Plan cc time in icu 35 min
[2018-08-14] MEDS: PROPOFOL 1,000,000 MCG/100 ML VIAL IVPB SCH ×5 (18:02→21:21)
[2018-08-14] MEDS ORDERED: PROPOFOL 2,000,000 MCG/200 ML VIAL ONE (19:47)
[2018-08-14] MEDS: MIDAZOLAM HCL 2 MG/2 ML SINGLE DOSE VIAL IVPUSH PRN (21:20)
[2018-08-15] MEDS: methylPREDNISolone NA SUCC 40 MG/1 ML VIAL IVPUSH SCH ×3 (02:21→17:54)
[2018-08-15] MEDS: MIDAZOLAM HCL 2 MG/2 ML SINGLE DOSE VIAL IVPUSH PRN ×3 (02:21→09:05)
[2018-08-15] MEDS: PROPOFOL 1,000,000 MCG/100 ML VIAL IVPB SCH ×4 (02:22→21:48)
[2018-08-15] MEDS ORDERED: fentaNYL CITRATE 250 MCG/5 ML VIAL ONE ×3 (03:36→14:59)
[2018-08-15] MEDS: FENTANYL INJECTION 500 MCG in DEXTROSE 5%-WATER - 90 ML IVPB SCH ×4 (05:50→21:49)
[2018-08-15] MEDS: hydrALAZINE HCL 50 MG TABLET (FP) NGT SCH ×4 (06:00→21:48)
[2018-08-15 07:09] LABS: BASO % 0.2 % (0-2.0); HEMOGLOBIN 10.1 GM/dL (10.7-15.3); LYMPH % 2.1 % (8-40); MCH 30.7 pg (25.7-33.7); MCHC 32.6 g/dl (32.0-36.0); MEAN CELL VOLUME 94.1 fl (80-96); MEAN PLT VOLUME 7.6 fl (7.5-11.1); MONO % 11.4 % (3.8-10.2); NEUT % 86.3 % (42.8-82.8); PLATELET COUNT 239 K/MM3 (134-434); RBC 3.29 M/mm3 (3.60-5.2); RDW 15.2 % (11.6-15.6); WHITE BLOOD COUNT 18.3 K/mm3 (4.0-10.0)
--- NOTE | 2018-08-15 07:17 | PN ---
Progress Note, Physician Chief Complaint: Pt remains intubated and sedated. Her daughter is at bedside History of Present Illness: 67 y/o black female presenting to [facility] for altered mental status and decreased PO intake for the past two days. Pt unable or unwilling to participate in the interview. Pts daughter was the one who saw the pt at the facility today and requested the transfer to the hospital. Pt was recently discharged from this facility on 08 July 2018 for acute CHF exacerbation. ECHO at that time revealed normal LVEF, moderate concentric left ventricular hypertrophy, right atrium moderate to severely dilated, severe tricuspid regurg, RV pressure is > 60 mmhg, RV moderately dilated, septal motion consistent with conduction abnormality In [facility] for physical therapy following hospitalization. Her daughter says she had been alert, oriented, and physically active until the past two days. PCP: None. In process of establishing care with Dr. Kirk ID: Dr. Blake - Current Medication List Current Medications: Active Medications Abacavir/Dolutegravir/Lamivudine (Triumeq (Non-Formulary)) 1 each PO DAILY [facility] Last Admin: 08/14/18 10:13 Dose: 1 each Carvedilol (Coreg -) 12.5 mg PO BID [facility] Last Admin: 08/14/18 21:19 Dose: 12.5 mg Clopidogrel Bisulfate (Plavix -) 75 mg PO DAILY [facility] Last Admin: 08/14/18 10:14 Dose: 75 mg Heparin Sodium (Porcine) (Heparin -) 5,000 unit SQ BID [facility] Last Admin: 08/14/18 21:19 Dose: 5,000 unit Hydralazine HCl (Apresoline -) 50 mg NGT TID [facility] Last Admin: 08/14/18 21:18 Dose: 50 mg Propofol (Diprivan -) 1,000,000 mcg in 100 mls @ 1.66 mls/hr IVPB TITR [facility]; Protocol Last Admin: 08/15/18 02:22 Dose: 60 mcg/kg/min, 19.922 mls/hr Fentanyl 500 mcg/ Dextrose 100 mls @ 5 mls/hr IVPB TITR [facility]; Protocol Last Admin: 08/15/18 05:50 Dose: 100 mcg/hr, 20 mls/hr Losartan Potassium (Cozaar -) 50 mg PO BID [facility] Last Admin: 08/14/18 21:18 Dose: 50 mg Methylprednisolone Sodium Succinate (Solu-Medrol -) 80 mg IVPUSH Q8H-IV [facility] Last Admin: 08/15/18 02:21 Dose: 80 mg Midazolam HCl (Versed -) 2 mg IVPUSH Q3H PRN PRN Reason: AGITATION Last Admin: 08/15/18 05:54 Dose: 2 mg Pantoprazole Sodium (Protonix Iv) 40 mg IVPUSH DAILY [facility] Last Admin: 08/14/18 10:14 Dose: 40 mg Ranolazine (Ranexa -) 500 mg PO BID [facility] Last Admin: 08/14/18 21:18 Dose: 500 mg Spironolactone (Aldactone -) 25 mg NGT DAILY [facility] Last Admin: 08/14/18 10:11 Dose: 25 mg - Objective Vital Signs: Vital Signs Temperature 99 F 08/15/18 06:00 Pulse Rate 71 08/15/18 06:00 Respiratory Rate 15 08/15/18 06:00 Blood Pressure 108/64 08/15/18 06:00 O2 Sat by Pulse Oximetry (%) 95 08/14/18 22:00 Neck: Yes: Decreased ROM Cardiovascular: Yes: S1, S2 Respiratory: Yes: Mechanically Ventilated Genitourinary: No: Anuria Psychiatric: Yes: Other Labs: INR, PTT INR 1.49 (0.83-1.09) H 08/08/18 19:37 Problem List - Problems (1) Altered mental status, unspecified Code(s): R41.82 - ALTERED MENTAL STATUS, UNSPECIFIED Qualifiers: Altered mental status type: somnolence Qualified Code(s): R40.0 - Somnolence (2) COPD with acute exacerbation Assessment/Plan: Remains intubated, [facility] ventilator dependent. F/u with senior office support assistant sosa. Code(s): J44.1 - CHRONIC OBSTRUCTIVE PULMONARY DISEASE W (ACUTE) EXACERBATION (3) COPD (chronic obstructive pulmonary disease) Code(s): J44.9 - CHRONIC OBSTRUCTIVE PULMONARY DISEASE, UNSPECIFIED Qualifiers: (4) HIV Code(s): Z21 - ASYMPTOMATIC HUMAN IMMUNODEFICIENCY VIRUS INFECTION STATUS (5) HTN (hypertension) Code(s): I10 - ESSENTIAL (PRIMARY) HYPERTENSION Qualifiers: Hypertension type: essential hypertension Qualified Code(s): I10 - Essential (primary) hypertension (6) Hyperlipidemia Code(s): E78.5 - HYPERLIPIDEMIA, UNSPECIFIED Qualifiers: Hyperlipidemia type: pure hypercholesterolemia Qualified Code(s): E78.00 - Pure hypercholesterolemia, unspecified; E78.0 - Pure hypercholesterolemia (7) S/P CABG (coronary artery bypass graft) Assessment/Plan: Continue clopidogrel, Ranexa. Restarted ACEI and RAAS now that renal function has improved. On hydralazine, carvedilol. TSH WNL. F/u lipids. Code(s): Z95.1 - PRESENCE OF AORTOCORONARY BYPASS GRAFT (8) Elevated troponin I level Assessment/Plan: multiple factors may contribute to demand ischemia leading to mild elevation, including respiratory failure, sepsis, anemia, CHF. CKMB relative index is low. EKG: NSR; LAE; no acute STT changes. F/u coronary artery evaluation once stable (hx CABG, PCI). Code(s): R74.8 - ABNORMAL LEVELS OF OTHER SERUM ENZYMES (9) Hyperkalemia Assessment/Plan: Normal for past several days Code(s): E87.5 - HYPERKALEMIA (10) Hypernatremia Assessment/Plan: As noted per farm loan representative, consider increased water intake. Code(s): E87.0 - HYPEROSMOLALITY AND HYPERNATREMIA (11) Leukocytosis Code(s): D72.829 - ELEVATED WHITE BLOOD CELL COUNT, UNSPECIFIED (12) Severe pulmonary arterial systolic hypertension Code(s): I27.21 - SECONDARY PULMONARY ARTERIAL HYPERTENSION Assessment/Plan CCU time spent:35 minutes
[2018-08-15 07:30] LABS: ANION GAP 3 MMOL/L (8-16); BLOOD UREA NITROGEN 36 mg/dL (7-18); CHLORIDE 104 mmol/L (98-107); CO2 36 mmol/L (21-32); CREATININE 0.7 mg/dL (0.55-1.3); GLUCOSE,RANDOM 200 mg/dL (74-106); POTASSIUM 4.3 mmol/L (3.5-5.1); SODIUM 142 mmol/L (136-145)
[2018-08-15] MEDS ORDERED: PT OWN MED DRAWER 7, Y5N ONE ×3 (08:45→20:55)
[2018-08-15 09:06] LABS: CHOLESTEROL 159 mg/dL (50-200); HDL CHOLESTEROL 30 mg/dL (40-60); TRIGLYCERIDES 246 mg/dL (0-150)
[2018-08-15] MEDS: RANOLAZINE E.R. 500 MG TABLET (FP) PO SCH ×2 (09:18→21:48)
[2018-08-15] MEDS: PANTOPRAZOLE SODIUM 40 MG VIAL IVPUSH SCH (09:18)
[2018-08-15] MEDS: LOSARTAN POTASSIUM 50 MG TABLET (FP) PO SCH ×2 (09:18→21:49)
[2018-08-15] MEDS: SPIRONOLACTONE 25 MG TABLET (FP) NGT SCH (09:18)
[2018-08-15] MEDS: CARVEDILOL 12.5 MG TABLET (FP) PO SCH ×2 (09:18→21:49)
[2018-08-15] MEDS: CLOPIDOGREL BISULFATE 75 MG TABLET (FP) PO SCH (09:18)
[2018-08-15] MEDS: ABACAVIR/DOLUTEGRAVIR/LAMIVUDI (TRIUMEQ) TABLET -NF PO SCH (09:19)
[2018-08-15] MEDS: HEPARIN NA (PORCINE) 5,000 UNITS/ML 1ML VIAL SQ SCH ×2 (09:19→21:48)
--- NOTE | 2018-08-15 11:35 | PN ---
Progress Note, Physician Chief Complaint: Events noted Remains in ICU Intubated and sedated History of Present Illness: Patient was seen and examined. Mechanical ventilation. Chart was reviewed - Current Medication List Current Medications: Active Medications Abacavir/Dolutegravir/Lamivudine (Triumeq (Non-Formulary)) 1 each PO DAILY [facility] Last Admin: 08/15/18 09:19 Dose: 1 each Carvedilol (Coreg -) 12.5 mg PO BID [facility] Last Admin: 08/15/18 09:18 Dose: 12.5 mg Clopidogrel Bisulfate (Plavix -) 75 mg PO DAILY [facility] Last Admin: 08/15/18 09:18 Dose: 75 mg Heparin Sodium (Porcine) (Heparin -) 5,000 unit SQ BID [facility] Last Admin: 08/15/18 09:19 Dose: 5,000 unit Hydralazine HCl (Apresoline -) 50 mg NGT TID [facility] Last Admin: 08/15/18 09:20 Dose: Not Given Propofol (Diprivan -) 1,000,000 mcg in 100 mls @ 1.66 mls/hr IVPB TITR [facility]; Protocol Last Admin: 08/15/18 09:06 Dose: 60 mcg/kg/min, 19.922 mls/hr Fentanyl 500 mcg/ Dextrose 100 mls @ 5 mls/hr IVPB TITR [facility]; Protocol Last Admin: 08/15/18 09:06 Dose: 100 mcg/hr, 20 mls/hr Losartan Potassium (Cozaar -) 50 mg PO BID [facility] Last Admin: 08/15/18 09:18 Dose: 50 mg Methylprednisolone Sodium Succinate (Solu-Medrol -) 80 mg IVPUSH Q8H-IV [facility] Last Admin: 08/15/18 09:18 Dose: 80 mg Midazolam HCl (Versed -) 2 mg IVPUSH Q3H PRN PRN Reason: AGITATION Last Admin: 08/15/18 09:05 Dose: 2 mg Pantoprazole Sodium (Protonix Iv) 40 mg IVPUSH DAILY [facility] Last Admin: 08/15/18 09:18 Dose: 40 mg Ranolazine (Ranexa -) 500 mg PO BID [facility] Last Admin: 08/15/18 09:18 Dose: 500 mg Spironolactone (Aldactone -) 25 mg NGT DAILY [facility] Last Admin: 08/15/18 09:18 Dose: 25 mg - Objective Vital Signs: Vital Signs Temperature 100.4 F H 08/15/18 10:00 Pulse Rate 84 08/15/18 10:00 Respiratory Rate 26 H 08/15/18 10:00 Blood Pressure 172/96 H 08/15/18 10:00 O2 Sat by Pulse Oximetry (%) 96 08/15/18 08:00 Cardiovascular: Yes: Regular Rate and Rhythm, S1, S2 Respiratory: Yes: Intubated, Mechanically Ventilated Gastrointestinal: Yes: Normal Bowel Sounds, Soft. No: Tenderness Edema: No Labs: CBC, BMP 08/15/18 05:30 08/15/18 05:30 Problem List - Problems (1) Altered mental status, unspecified Code(s): R41.82 - ALTERED MENTAL STATUS, UNSPECIFIED Qualifiers: Altered mental status type: somnolence Qualified Code(s): R40.0 - Somnolence (2) CHF (congestive heart failure) Code(s): I50.9 - HEART FAILURE, UNSPECIFIED Qualifiers: Heart failure type: diastolic Heart failure chronicity: chronic Qualified Code(s): I50.32 - Chronic diastolic (congestive) heart failure (3) COPD with acute exacerbation Code(s): J44.1 - CHRONIC OBSTRUCTIVE PULMONARY DISEASE W (ACUTE) EXACERBATION (4) Elevated troponin I level Code(s): R74.8 - ABNORMAL LEVELS OF OTHER SERUM ENZYMES (5) Leukocytosis Code(s): D72.829 - ELEVATED WHITE BLOOD CELL COUNT, UNSPECIFIED (6) Respiratory failure requiring intubation Code(s): J96.90 - RESPIRATORY FAILURE, UNSP, UNSP W HYPOXIA OR HYPERCAPNIA (7) Severe pulmonary arterial systolic hypertension Code(s): I27.21 - SECONDARY PULMONARY ARTERIAL HYPERTENSION (8) Asthma Code(s): J45.909 - UNSPECIFIED ASTHMA, UNCOMPLICATED (9) Asymptomatic cholelithiasis Code(s): K80.20 - CALCULUS OF GALLBLADDER W/O CHOLECYSTITIS W/O OBSTRUCTION (10) COPD (chronic obstructive pulmonary disease) Code(s): J44.9 - CHRONIC OBSTRUCTIVE PULMONARY DISEASE, UNSPECIFIED Qualifiers: (11) HIV Code(s): Z21 - ASYMPTOMATIC HUMAN IMMUNODEFICIENCY VIRUS INFECTION STATUS (12) HTN (hypertension) Code(s): I10 - ESSENTIAL (PRIMARY) HYPERTENSION Qualifiers: Hypertension type: essential hypertension Qualified Code(s): I10 - Essential (primary) hypertension (13) Hyperlipidemia Code(s): E78.5 - HYPERLIPIDEMIA, UNSPECIFIED Qualifiers: Hyperlipidemia type: pure hypercholesterolemia Qualified Code(s): E78.00 - Pure hypercholesterolemia, unspecified; E78.0 - Pure hypercholesterolemia (14) PVD (peripheral vascular disease) Code(s): I73.9 - PERIPHERAL VASCULAR DISEASE, UNSPECIFIED (15) S/P CABG (coronary artery bypass graft) Code(s): Z95.1 - PRESENCE OF AORTOCORONARY BYPASS GRAFT Assessment/Plan 1. Acute on chronic hypercapneic/hypoxemic respiratory failure - mechanical ventilation 2. Acute exacerbation of chronic obstructive pulmonary disease 3. Right Heart Failure/Volume Overload with Severe Pulmonary HTN 4. Diastolic dysfunction 5. CAD s/p CABG, demand ischemia 7. HTN 8. Hypercholesterolemia 9. HIV and Hepatitis C 10. PAD s/p SFA stent 11. Pre-renal Acute on CKD improving, hyperkalemia and hyponatremia 12. Toxic metabolic encephelopathy 13. Cholelithiasis PLAN: 1. Continue Aldactone 25 mg QD and Losartan 50 mg BID as tolerated 2. Continue Carvedilol 12.5 mg BID, Plavix 75 mg QD, Hydralazine 50 mg TID, Lipitor 10 mg QD and Ranexa 500 mg BID as tolerated (via NG) 3. IV steroid, bronchodilator, O2 to keep SpO2 88-92% and wean vent as per critical care team. 4. Continue antibiotic coverage 5. DVT prophylaxis and enteral feeds Guarded Chato Beltran MD
[2018-08-15 11:38] LABS: ANISOCYTOSIS 0; MACROCYTOSIS 1+; OVALOCYTE 1+; PLATELET ESTIMATE NORMAL; TARGET CELLS 2+
--- NOTE | 2018-08-15 12:19 | PN ---
Teaching Attending Note Name of Resident: Andrez Tolentino ATTENDING PHYSICIAN STATEMENT I saw and evaluated the patient. I reviewed the resident's note and discussed the case with the resident. I agree with the resident's findings and plan as documented. SUBJECTIVE: Patient seen and examined in the ICU. AC Mode of vent, 60% FiO2. No pressors. Remains intubated. Flow loops reveal less obstruction than prior to the weekend. OBJECTIVE: Intake & Output 08/12/18 08/13/18 08/14/18 08/15/18 23:59 23:59 23:59 23:59 Intake Total 944.5 1199 1663 1683 Output Total 1900 2200 3000 250 Balance -955.5 -1001 -1897 1433 Weight 119 lb 7.849 oz 118 lb 9.739 oz Last Vital Signs Temp Pulse Resp BP Pulse Ox 100.4 F H 84 24 H 172/96 H 96 08/15/18 10:00 08/15/18 10:00 08/15/18 11:45 08/15/18 10:00 08/15/18 08:00 Active Medications Abacavir/Dolutegravir/Lamivudine (Triumeq (Non-Formulary)) 1 each PO DAILY [facility] Last Admin: 08/15/18 09:19 Dose: 1 each Carvedilol (Coreg -) 12.5 mg PO BID [facility] Last Admin: 08/15/18 09:18 Dose: 12.5 mg Clopidogrel Bisulfate (Plavix -) 75 mg PO DAILY [facility] Last Admin: 08/15/18 09:18 Dose: 75 mg Heparin Sodium (Porcine) (Heparin -) 5,000 unit SQ BID [facility] Last Admin: 08/15/18 09:19 Dose: 5,000 unit Hydralazine HCl (Apresoline -) 50 mg NGT TID [facility] Last Admin: 08/15/18 09:20 Dose: Not Given Propofol (Diprivan -) 1,000,000 mcg in 100 mls @ 1.66 mls/hr IVPB TITR [facility]; Protocol Last Admin: 08/15/18 09:06 Dose: 60 mcg/kg/min, 19.922 mls/hr Fentanyl 500 mcg/ Dextrose 100 mls @ 5 mls/hr IVPB TITR [facility]; Protocol Last Admin: 08/15/18 09:06 Dose: 100 mcg/hr, 20 mls/hr Losartan Potassium (Cozaar -) 50 mg PO BID [facility] Last Admin: 08/15/18 09:18 Dose: 50 mg Methylprednisolone Sodium Succinate (Solu-Medrol -) 80 mg IVPUSH Q8H-IV [facility] Last Admin: 08/15/18 09:18 Dose: 80 mg Midazolam HCl (Versed -) 2 mg IVPUSH Q3H PRN PRN Reason: AGITATION Last Admin: 08/15/18 09:05 Dose: 2 mg Pantoprazole Sodium (Protonix Iv) 40 mg IVPUSH DAILY [facility] Last Admin: 08/15/18 09:18 Dose: 40 mg Ranolazine (Ranexa -) 500 mg PO BID [facility] Last Admin: 08/15/18 09:18 Dose: 500 mg Spironolactone (Aldactone -) 25 mg NGT DAILY [facility] Last Admin: 08/15/18 09:18 Dose: 25 mg Gen: intubated, sedated Heart: RRR Lung: decreased breath sounds at the bases Abd: soft, nontender Ext: no edema Laboratory Results - last 24 hr 08/15/18 08/15/18 05:30 05:30 WBC 18.3 H RBC 3.29 L Hgb 10.1 L Hct 31.0 L MCV 94.1 MCH 30.7 MCHC 32.6 RDW 15.2 Plt Count 239 MPV 7.6 D Absolute Neuts (auto) 15.8 H Neutrophils % 86.3 H Neutrophils % (Manual) 84.0 H Band Neutrophils % 3.0 Lymphocytes % 2.1 L D Lymphocytes % (Manual) 1.0 L D Monocytes % 11.4 H Monocytes % (Manual) 11 H D Eosinophils % 0.0 Eosinophils % (Manual) 0.0 Basophils % 0.2 Basophils % (Manual) 0.0 Myelocytes % (Man) 0 Promyelocytes % (Man) 0 Blast Cells % (Manual) 0 Nucleated RBC % 0 Metamyelocytes 1 D Hypochromia 0 Platelet Estimate Normal Polychromasia 1+ Poikilocytosis 0 Anisocytosis 0 Microcytosis 0 Macrocytosis 1+ Target Cells 2+ Ovalocytes 1+ Sodium 142 Potassium 4.3 Chloride 104 Carbon Dioxide 36 H Anion Gap 3 L BUN 36 H Creatinine 0.7 Creat Clearance w eGFR 83.47 Random Glucose 200 H Calcium 9.0 Triglycerides 246 H Cholesterol 159 Total LDL Cholesterol 82 HDL Cholesterol 30 L ASSESSMENT AND PLAN: Acute on Chronic Hypoxic and Hypercapneic Respiratory Failure Acute COPD Exacerbation Acute Kidney Injury Altered Mental Status LV Diastolic/Systolic Dysfunction Severe Pulmonary HTN CAD s/p CABG HIV PAD HTN - Current vent settings (adjusted to allow for prolonged I:E Ratio) - Medrol - Re-order inhaled bronchodilators (currently off) - Enteral feeds - monitor urine output, creatinine - Monitor lytes - Daily sedation vacations - Wean FiO2, Wean trials when FiO2 50% and below - DVT prophylaxis - continue ICU monitoring Dr Suero Critical care time spent in reviewing chart, evaluating patient and formulating plan 36 min
[2018-08-15] MEDS ORDERED: ACETAMINOPHEN 1000 MG/100 ML VIAL (NON FORMULARY) IVPB PRN (12:31)
[2018-08-15] MEDS ORDERED: ALBUTEROL SO4 0.083% IH SOL 2.5 MG/3 ML VIAL.NEB. NEB PRN (12:32)
--- NOTE | 2018-08-15 13:47 | PN ---
Progress Note, Physician History of Present Illness: Pt seen and examined at bedside. She remains in the ICU. She remains intubated. - Current Medication List Current Medications: Active Medications Abacavir/Dolutegravir/Lamivudine (Triumeq (Non-Formulary)) 1 each PO DAILY [facility] Last Admin: 08/15/18 09:19 Dose: 1 each Acetaminophen (Ofirmev Injection -) 1,000 mg IVPB Q6H PRN PRN Reason: FEVER Albuterol Sulfate (Ventolin 0.083% Nebulizer Soln -) 1 amp NEB RQID [facility] Albuterol Sulfate (Ventolin 0.083% Nebulizer Soln -) 1 amp NEB Q4H PRN PRN Reason: SHORT OF BREATH/WHEEZING Carvedilol (Coreg -) 12.5 mg PO BID [facility] Last Admin: 08/15/18 09:18 Dose: 12.5 mg Clopidogrel Bisulfate (Plavix -) 75 mg PO DAILY [facility] Last Admin: 08/15/18 09:18 Dose: 75 mg Heparin Sodium (Porcine) (Heparin -) 5,000 unit SQ BID [facility] Last Admin: 08/15/18 09:19 Dose: 5,000 unit Hydralazine HCl (Apresoline -) 50 mg NGT TID [facility] Last Admin: 08/15/18 13:06 Dose: 50 mg Propofol (Diprivan -) 1,000,000 mcg in 100 mls @ 1.66 mls/hr IVPB TITR [facility]; Protocol Last Admin: 08/15/18 09:06 Dose: 60 mcg/kg/min, 19.922 mls/hr Fentanyl 500 mcg/ Dextrose 100 mls @ 5 mls/hr IVPB TITR [facility]; Protocol Last Admin: 08/15/18 09:06 Dose: 100 mcg/hr, 20 mls/hr Losartan Potassium (Cozaar -) 50 mg PO BID [facility] Last Admin: 08/15/18 09:18 Dose: 50 mg Methylprednisolone Sodium Succinate (Solu-Medrol -) 80 mg IVPUSH Q8H-IV [facility] Last Admin: 08/15/18 09:18 Dose: 80 mg Midazolam HCl (Versed -) 2 mg IVPUSH Q3H PRN PRN Reason: AGITATION Last Admin: 08/15/18 09:05 Dose: 2 mg Pantoprazole Sodium (Protonix Iv) 40 mg IVPUSH DAILY [facility] Last Admin: 04/08/19 09:18 Dose: 40 mg Polyethylene Glycol (Miralax (For Daily Use) -) 17 gm NGT DAILY [facility] Ranolazine (Ranexa -) 500 mg PO BID [facility] Last Admin: 08/15/18 09:18 Dose: 500 mg Spironolactone (Aldactone -) 25 mg NGT DAILY [facility] Last Admin: 08/15/18 09:18 Dose: 25 mg - Objective Vital Signs: Vital Signs Temperature 100.4 F H 08/15/18 10:00 Pulse Rate 79 08/15/18 12:00 Respiratory Rate 24 H 08/15/18 12:00 Blood Pressure 142/75 08/15/18 12:00 O2 Sat by Pulse Oximetry (%) 96 08/15/18 08:00 Constitutional: Yes: Calm Eyes: Yes: Conjunctiva Clear HENT: Yes: Atraumatic Cardiovascular: Yes: S1, S2 Respiratory: Yes: Mechanically Ventilated Gastrointestinal: Yes: Soft Genitourinary: Yes: Torres Present Musculoskeletal: Yes: Muscle Weakness Edema: No Neurological: Yes: Lethargy Labs: CBC, BMP 08/15/18 05:30 08/15/18 05:30 INR, PTT INR 1.49 (0.83-1.09) H 08/08/18 19:37 Problem List - Problems (1) Acute renal failure Code(s): N17.9 - ACUTE KIDNEY FAILURE, UNSPECIFIED Qualifiers: Acute renal failure type: unspecified Qualified Code(s): N17.9 - Acute kidney failure, unspecified (2) Altered mental status, unspecified Code(s): R41.82 - ALTERED MENTAL STATUS, UNSPECIFIED Qualifiers: Altered mental status type: somnolence Qualified Code(s): R40.0 - Somnolence (3) CHF (congestive heart failure) Code(s): I50.9 - HEART FAILURE, UNSPECIFIED Qualifiers: Heart failure type: diastolic Heart failure chronicity: chronic Qualified Code(s): I50.32 - Chronic diastolic (congestive) heart failure (4) COPD with acute exacerbation Code(s): J44.1 - CHRONIC OBSTRUCTIVE PULMONARY DISEASE W (ACUTE) EXACERBATION (5) Hyperkalemia Code(s): E87.5 - HYPERKALEMIA Assessment/Plan Current Medications Generic Name Dose Route Start Last Admin Trade Name Freq PRN Reason Stop Dose Admin Abacavir/Dolutegravir/Lamivudine 1 each 08/10/18 14:00 08/15/18 09:19 Triumeq (Non-Formulary) PO 1 each DAILY [facility] Administration Acetaminophen 1,000 mg 08/15/18 12:31 Ofirmev Injection - IVPB Q6H PRN FEVER Albuterol Sulfate 1 amp 08/15/18 16:00 Ventolin 0.083% Nebulizer Soln - NEB RQID [facility] Albuterol Sulfate 1 amp 08/15/18 12:32 Ventolin 0.083% Nebulizer Soln - NEB Q4H PRN SHORT OF BREATH/WHEEZING Carvedilol 12.5 mg 08/10/18 10:00 08/15/18 09:18 Coreg - PO 12.5 mg BID [facility] Administration Clopidogrel Bisulfate 75 mg 08/10/18 10:00 08/15/18 09:18 Plavix - PO 75 mg DAILY [facility] Administration Heparin Sodium (Porcine) 5,000 unit 08/09/18 10:00 08/15/18 09:19 Heparin - SQ 5,000 unit BID [facility] Administration Hydralazine HCl 50 mg 08/11/18 14:08 08/15/18 13:06 Apresoline - NGT 50 mg TID [facility] Administration Propofol 1,000,000 mcg in 100 mls @ 1.66 mls/hr 08/10/18 19:30 08/15/18 09:06 Diprivan - IVPB 60 mcg/kg/min TITR [facility] 19.922 mls/hr Administration Protocol 5 MCG/KG/MIN Fentanyl 500 mcg/ Dextrose 100 mls @ 5 mls/hr 08/10/18 20:15 08/15/18 09:06 IVPB 100 mcg/hr TITR [facility] 20 mls/hr Administration Protocol 25 MCG/HR Losartan Potassium 50 mg 08/11/18 13:00 08/15/18 09:18 Cozaar - PO 50 mg BID [facility] Administration Methylprednisolone Sodium Succinate 80 mg 08/12/18 18:00 08/15/18 09:18 Solu-Medrol - IVPUSH 80 mg Q8H-IV [facility] Administration Midazolam HCl 2 mg 08/14/18 20:55 08/15/18 09:05 Versed - IVPUSH 2 mg Q3H PRN Administration AGITATION Pantoprazole Sodium 40 mg 08/11/18 13:15 08/15/18 09:18 Protonix Iv IVPUSH 40 mg DAILY [facility] Administration Polyethylene Glycol 17 gm 08/15/18 13:30 Miralax (For Daily Use) - NGT DAILY [facility] Ranolazine 500 mg 08/10/18 11:30 08/15/18 09:18 Ranexa - PO 500 mg BID [facility] Administration Spironolactone 25 mg 08/11/18 14:15 08/15/18 09:18 Aldactone - NGT 25 mg DAILY [facility] Administration Impression 1. KRISTIAN 2. Hyperkalemia 3. HIV 4. hyponatremia 5. altered mental status 6. pulm HTN 7. htn 8. pvd 9. resp acidosis 10. resp failure requiring intubation Plan - sodium improved - cont feeds - monitor lytes - cont free water with feeds - vent support - renal function stabilizing - kristian likely from pre-renal disease
[2018-08-15] MEDS: POLYETHYLENE GLYCOL 3350 119 GM BTL NGT SCH (14:10)
--- NOTE | 2018-08-15 15:13 | PN ---
Physical Exam: SUBJECTIVE: Patient seen and examined HD# 7 Overnight Events: No acute events overnight. Tolerating tube feeds. Fentanyl down titrated. OBJECTIVE: 24 HourI/Os (thus far): In: 1683 Out: 250 - UOP: 250 Bal: 1433 Lines: - PIV - NG Tube Drains: - Torrse Catheter Ventilator: Mode: A/C Vent rate: 16 Tv: 350 PEEP: 5 FiO2: 60% Vital Signs Period Temp Pulse Resp BP Sys/Buck Pulse Ox Last 24 Hr 99 F-100.4 F 65-88 15-29 90-172/52-96 94-96 GENERAL: The patient is sedated. HEAD: Normal with no signs of trauma. HEENT: NG and ET tubes in place. LUNGS: Mechanically intubated. No wheezes, no crackles. HEART: Regular rate and rhythm, S1, S2 without murmur, rub or gallop. ABDOMEN: Soft and nondistended. EXTREMITIES: 2+ pulses, warm, well-perfused, no edema. SKIN: Warm, dry, Laboratory Results - last 24 hr 08/15/18 08/15/18 05:30 05:30 WBC 18.3 H RBC 3.29 L Hgb 10.1 L Hct 31.0 L MCV 94.1 MCH 30.7 MCHC 32.6 RDW 15.2 Plt Count 239 MPV 7.6 D Absolute Neuts (auto) 15.8 H Neutrophils % 86.3 H Neutrophils % (Manual) 84.0 H Band Neutrophils % 3.0 Lymphocytes % 2.1 L D Lymphocytes % (Manual) 1.0 L D Monocytes % 11.4 H Monocytes % (Manual) 11 H D Eosinophils % 0.0 Eosinophils % (Manual) 0.0 Basophils % 0.2 Basophils % (Manual) 0.0 Myelocytes % (Man) 0 Promyelocytes % (Man) 0 Blast Cells % (Manual) 0 Nucleated RBC % 0 Metamyelocytes 1 D Hypochromia 0 Platelet Estimate Normal Polychromasia 1+ Poikilocytosis 0 Anisocytosis 0 Microcytosis 0 Macrocytosis 1+ Target Cells 2+ Ovalocytes 1+ Sodium 142 Potassium 4.3 Chloride 104 Carbon Dioxide 36 H Anion Gap 3 L BUN 36 H Creatinine 0.7 Creat Clearance w eGFR 83.47 Random Glucose 200 H Calcium 9.0 Triglycerides 246 H Cholesterol 159 Total LDL Cholesterol 82 HDL Cholesterol 30 L Active Medications Generic Name Dose Route Start Last Admin Trade Name Freq PRN Reason Stop Dose Admin Abacavir/Dolutegravir/Lamivudine 1 each 08/10/18 14:00 08/15/18 09:19 Triumeq (Non-Formulary) PO 1 each DAILY [facility] Administration Acetaminophen 1,000 mg 08/15/18 12:31 08/15/18 14:10 Ofirmev Injection - IVPB 1,000 mg Q6H PRN Administration FEVER Albuterol Sulfate 1 amp 08/15/18 16:00 Ventolin 0.083% Nebulizer Soln - NEB RQID [facility] Albuterol Sulfate 1 amp 08/15/18 12:32 Ventolin 0.083% Nebulizer Soln - NEB Q4H PRN SHORT OF BREATH/WHEEZING Carvedilol 12.5 mg 08/10/18 10:00 08/15/18 09:18 Coreg - PO 12.5 mg BID [facility] Administration Clopidogrel Bisulfate 75 mg 08/10/18 10:00 08/15/18 09:18 Plavix - PO 75 mg DAILY [facility] Administration Heparin Sodium (Porcine) 5,000 unit 08/09/18 10:00 08/15/18 09:19 Heparin - SQ 5,000 unit BID [facility] Administration Hydralazine HCl 50 mg 08/11/18 14:08 08/15/18 13:06 Apresoline - NGT 50 mg TID [facility] Administration Propofol 1,000,000 mcg in 100 mls @ 1.66 mls/hr 08/10/18 19:30 08/15/18 09:06 Diprivan - IVPB 60 mcg/kg/min TITR [facility] 19.922 mls/hr Administration Protocol 5 MCG/KG/MIN Fentanyl 500 mcg/ Dextrose 100 mls @ 5 mls/hr 08/10/18 20:15 08/15/18 09:06 IVPB 100 mcg/hr TITR [facility] 20 mls/hr Administration Protocol 25 MCG/HR Losartan Potassium 50 mg 08/11/18 13:00 08/15/18 09:18 Cozaar - PO 50 mg BID [facility] Administration Methylprednisolone Sodium Succinate 80 mg 08/12/18 18:00 08/15/18 09:18 Solu-Medrol - IVPUSH 80 mg Q8H-IV [facility] Administration Midazolam HCl 2 mg 08/14/18 20:55 08/15/18 09:05 Versed - IVPUSH 2 mg Q3H PRN Administration AGITATION Pantoprazole Sodium 40 mg 08/11/18 13:15 08/15/18 09:18 Protonix Iv IVPUSH 40 mg DAILY [facility] Administration Polyethylene Glycol 17 gm 08/15/18 13:30 08/15/18 14:10 Miralax (For Daily Use) - NGT 17 gm DAILY [facility] Administration Ranolazine 500 mg 08/10/18 11:30 08/15/18 09:18 Ranexa - PO 500 mg BID [facility] Administration Spironolactone 25 mg 08/11/18 14:15 08/15/18 09:18 Aldactone - NGT 25 mg DAILY [facility] Administration ASSESSMENT/PLAN: 67 year old female with HTN, CAD s/p CABG in 2009, PVD with B/L LE stents, HIV, HEP C, COPD and CHF. Admitted to the ICU for Acute hypoxic hypercapnic respiratory failure and dehydration. Neuro (& Psych): - Sedated with Propofol and Fentanyl drips - Versed PRN for increased agitation Endocrine: - Consult: Dr. Leach - Acute Kidney Injury - Monitoring electrolytes - GFR improving. BUN remains elevated. Cardiovascular: - Consult: Dr. Fitzgerald - LV Diastolic/Systolic Dysfunction - CAD s/p CABG, continue Clopidogrel - HTN continue Carvedilol, Hydralazine, Losartan - PAD - Continue Ranolazine and Spironolactone Pulm / Resp: - Consult: Dr. Harrell - Acute on Chronic Hypoxic and Hypercapneic Respiratory Failure - Acute COPD Exacerbation, continue albuterol, methylprednisolone - Severe Pulmonary HTN - Plan to continue to optimize for vent wean Gastrointestinal: - Polyethylene Glycol for constipation Infectious Disease: - Consult: Dr. Velasco - HIV, continue HAART Therapy - Hep C s/p treatment - Febrile this AM. Ordered PRN Tylenol. - Antibiotics were held but sputum culture grew Pseudomonas and Presumptive MSSA. Urine culture grew Group D Strep or Entero Coccus, Lactose Fermenting Neg Bacilli, and Non Lactose Fermenting Gnb. Dr. Velasco made aware by telephone. States he will come re-evaluate the pt. Awaiting antibiotics recommendations. FEN: - Tube Feed per dietary Prophylaxis: - DVT: Heparin - GI: Pantoprazole Dispo: Pt to remain on ICU service. Intubated and sedated. Andrez Tolentino MD, PGY1 Visit type - Emergency Visit Emergency Visit: No - New Patient This patient is new to me today: Yes Date on this admission: 08/15/18 - Critical Care Critical Care patient: Yes Total Critical Care Time (in minutes): 40 Critical Care Statement: The care of this patient involved high complexity decision making to prevent further life threatening deterioration of the patient 's condition and/or to evaluate & treat vital organ system(s) failure or risk of failure.
--- NOTE | 2018-08-15 15:18 | EKG ---
Test Reason : Blood Pressure : / mmHG Vent. Rate : 085 BPM Atrial Rate : 085 BPM P-R Int : 124 ms QRS Dur : 100 ms QT Int : 346 ms P-R-T Axes : 065 035 017 degrees QTc Int : 411 ms NORMAL SINUS RHYTHM POSSIBLE LEFT ATRIAL ENLARGEMENT BORDERLINE ECG WHEN COMPARED WITH ECG OF 11-AUG-2018 08:00, T WAVE VARIATION Confirmed by FERNANDA ESTRADA MD ([id number]) on 08/15/2018 3:18:34 PM Referred By: [facility] Confirmed By:FERNANDA ESTRADA MD
[2018-08-15] MEDS: ALBUTEROL SO4 0.083% IH SOL 2.5 MG/3 ML VIAL.NEB. NEB SCH ×2 (16:25→20:50)
--- NOTE | 2018-08-15 17:34 | PN ---
Progress Note, Physician History of Present Illness: intubated - Current Medication List Current Medications: Active Medications Abacavir/Dolutegravir/Lamivudine (Triumeq (Non-Formulary)) 1 each PO DAILY [facility] Last Admin: 08/15/18 09:19 Dose: 1 each Acetaminophen (Ofirmev Injection -) 1,000 mg IVPB Q6H PRN PRN Reason: FEVER Last Admin: 08/15/18 14:10 Dose: 1,000 mg Albuterol Sulfate (Ventolin 0.083% Nebulizer Soln -) 1 amp NEB RQID [facility] Last Admin: 08/15/18 16:25 Dose: 1 amp Albuterol Sulfate (Ventolin 0.083% Nebulizer Soln -) 1 amp NEB Q4H PRN PRN Reason: SHORT OF BREATH/WHEEZING Carvedilol (Coreg -) 12.5 mg PO BID [facility] Last Admin: 08/15/18 09:18 Dose: 12.5 mg Clopidogrel Bisulfate (Plavix -) 75 mg PO DAILY [facility] Last Admin: 08/15/18 09:18 Dose: 75 mg Heparin Sodium (Porcine) (Heparin -) 5,000 unit SQ BID [facility] Last Admin: 08/15/18 09:19 Dose: 5,000 unit Hydralazine HCl (Apresoline -) 50 mg NGT TID [facility] Last Admin: 08/15/18 13:06 Dose: 50 mg Propofol (Diprivan -) 1,000,000 mcg in 100 mls @ 1.66 mls/hr IVPB TITR [facility]; Protocol Last Admin: 08/15/18 09:06 Dose: 60 mcg/kg/min, 19.922 mls/hr Fentanyl 500 mcg/ Dextrose 100 mls @ 5 mls/hr IVPB TITR [facility]; Protocol Last Admin: 08/15/18 09:06 Dose: 100 mcg/hr, 20 mls/hr Losartan Potassium (Cozaar -) 50 mg PO BID [facility] Last Admin: 08/15/18 09:18 Dose: 50 mg Methylprednisolone Sodium Succinate (Solu-Medrol -) 80 mg IVPUSH Q8H-IV [facility] Last Admin: 08/15/18 09:18 Dose: 80 mg Midazolam HCl (Versed -) 2 mg IVPUSH Q3H PRN PRN Reason: AGITATION Last Admin: 08/15/18 09:05 Dose: 2 mg Pantoprazole Sodium (Protonix Iv) 40 mg IVPUSH DAILY [facility] Last Admin: 08/15/18 09:18 Dose: 40 mg Polyethylene Glycol (Miralax (For Daily Use) -) 17 gm NGT DAILY [facility] Last Admin: 08/15/18 14:10 Dose: 17 gm Ranolazine (Ranexa -) 500 mg PO BID [facility] Last Admin: 08/15/18 09:18 Dose: 500 mg Spironolactone (Aldactone -) 25 mg NGT DAILY [facility] Last Admin: 08/15/18 09:18 Dose: 25 mg - Objective Vital Signs: Vital Signs Temperature 100.4 F H 08/15/18 10:00 Pulse Rate 85 08/15/18 14:00 Respiratory Rate 28 H 08/15/18 16:20 Blood Pressure 167/92 08/15/18 14:00 O2 Sat by Pulse Oximetry (%) 96 08/15/18 10:40 Constitutional: Yes: No Distress HENT: Yes: Atraumatic Neck: Yes: Supple Cardiovascular: Yes: Regular Rate and Rhythm Respiratory: Yes: Rhonchi Gastrointestinal: Yes: Normal Bowel Sounds Extremities: Yes: WNL Labs: CBC, BMP 08/15/18 05:30 08/15/18 05:30 INR, PTT INR 1.49 (0.83-1.09) H 08/08/18 19:37 Problem List - Problems (1) Acute renal failure Assessment/Plan: on iv hydration monitor\ Code(s): N17.9 - ACUTE KIDNEY FAILURE, UNSPECIFIED Qualifiers: Acute renal failure type: unspecified Qualified Code(s): N17.9 - Acute kidney failure, unspecified (2) Altered mental status, unspecified Code(s): R41.82 - ALTERED MENTAL STATUS, UNSPECIFIED Qualifiers: Altered mental status type: somnolence Qualified Code(s): R40.0 - Somnolence (3) COPD with acute exacerbation Assessment/Plan: steroids duo nebs INTUBATED Code(s): J44.1 - CHRONIC OBSTRUCTIVE PULMONARY DISEASE W (ACUTE) EXACERBATION (4) Elevated troponin I level Code(s): R74.8 - ABNORMAL LEVELS OF OTHER SERUM ENZYMES (5) Hyperkalemia Code(s): E87.5 - HYPERKALEMIA (6) COPD (chronic obstructive pulmonary disease) Code(s): J44.9 - CHRONIC OBSTRUCTIVE PULMONARY DISEASE, UNSPECIFIED Qualifiers: (7) HIV Assessment/Plan: continue home meds Code(s): Z21 - ASYMPTOMATIC HUMAN IMMUNODEFICIENCY VIRUS INFECTION STATUS (8) HTN (hypertension) Assessment/Plan: monitor on meds Code(s): I10 - ESSENTIAL (PRIMARY) HYPERTENSION Qualifiers: Hypertension type: essential hypertension Qualified Code(s): I10 - Essential (primary) hypertension (9) Hyperlipidemia Code(s): E78.5 - HYPERLIPIDEMIA, UNSPECIFIED Qualifiers: Hyperlipidemia type: pure hypercholesterolemia Qualified Code(s): E78.00 - Pure hypercholesterolemia, unspecified; E78.0 - Pure hypercholesterolemia (10) PVD (peripheral vascular disease) Code(s): I73.9 - PERIPHERAL VASCULAR DISEASE, UNSPECIFIED (11) CHF (congestive heart failure) Code(s): I50.9 - HEART FAILURE, UNSPECIFIED Qualifiers: Heart failure type: diastolic Heart failure chronicity: chronic Qualified Code(s): I50.32 - Chronic diastolic (congestive) heart failure Assessment/Plan cc time in icu 35 min
[2018-08-15] MEDS ORDERED: DEXTROSE 5%-WATER - 50 ML IVPB ONE (17:57)
[2018-08-15] MEDS ORDERED: PIPERACILLIN/TAZOBACTAM 3.375 GM VIAL IVPB ONE (17:57)
[2018-08-15] MEDS: PIPERACILLIN/TAZOB 3.375 GM 3.375 GM in DEXTROSE 5%-WATER - 50 ML IVPB SCH (17:58)
--- NOTE | 2018-08-15 19:52 | PN ---
Progress Note, Physician History of Present Illness: SEDATED ON VENTILATOR TEMP ELEVATION, LEUKOCYTOSIS NOTED - Current Medication List Current Medications: Active Medications Abacavir/Dolutegravir/Lamivudine (Triumeq (Non-Formulary)) 1 each PO DAILY [facility] Last Admin: 08/15/18 09:19 Dose: 1 each Acetaminophen (Ofirmev Injection -) 1,000 mg IVPB Q6H PRN PRN Reason: FEVER Last Admin: 08/15/18 14:10 Dose: 1,000 mg Albuterol Sulfate (Ventolin 0.083% Nebulizer Soln -) 1 amp NEB RQID [facility] Last Admin: 08/15/18 16:25 Dose: 1 amp Albuterol Sulfate (Ventolin 0.083% Nebulizer Soln -) 1 amp NEB Q4H PRN PRN Reason: SHORT OF BREATH/WHEEZING Carvedilol (Coreg -) 12.5 mg PO BID [facility] Last Admin: 08/15/18 09:18 Dose: 12.5 mg Clopidogrel Bisulfate (Plavix -) 75 mg PO DAILY [facility] Last Admin: 08/15/18 09:18 Dose: 75 mg Heparin Sodium (Porcine) (Heparin -) 5,000 unit SQ BID [facility] Last Admin: 08/15/18 09:19 Dose: 5,000 unit Hydralazine HCl (Apresoline -) 50 mg NGT TID [facility] Last Admin: 08/15/18 13:06 Dose: 50 mg Propofol (Diprivan -) 1,000,000 mcg in 100 mls @ 1.66 mls/hr IVPB TITR [facility]; Protocol Last Admin: 08/15/18 17:54 Dose: 60 mcg/kg/min, 19.922 mls/hr Fentanyl 500 mcg/ Dextrose 100 mls @ 5 mls/hr IVPB TITR [facility]; Protocol Last Admin: 08/15/18 17:54 Dose: 100 mcg/hr, 20 mls/hr Vancomycin HCl (Vancomycin 1 Gm Premix -) 1 gm in 200 mls @ 133.333 mls/hr IVPB BID@0700,1900 [facility]; Protocol Piperacillin Sod/Tazobactam (Sod 3.375 gm/ Dextrose) 50 mls @ 100 mls/hr IVPB Q8H-IV [facility]; Protocol Last Admin: 08/15/18 17:58 Dose: 100 mls/hr Losartan Potassium (Cozaar -) 50 mg PO BID [facility] Last Admin: 08/15/18 09:18 Dose: 50 mg Methylprednisolone Sodium Succinate (Solu-Medrol -) 80 mg IVPUSH Q8H-IV [facility] Last Admin: 08/15/18 17:54 Dose: 80 mg Midazolam HCl (Versed -) 2 mg IVPUSH Q3H PRN PRN Reason: AGITATION Last Admin: 08/15/18 09:05 Dose: 2 mg Pantoprazole Sodium (Protonix Iv) 40 mg IVPUSH DAILY [facility] Last Admin: 08/15/18 09:18 Dose: 40 mg Polyethylene Glycol (Miralax (For Daily Use) -) 17 gm NGT DAILY [facility] Last Admin: 08/15/18 14:10 Dose: 17 gm Ranolazine (Ranexa -) 500 mg PO BID [facility] Last Admin: 08/15/18 09:18 Dose: 500 mg Spironolactone (Aldactone -) 25 mg NGT DAILY [facility] Last Admin: 08/15/18 09:18 Dose: 25 mg - Objective Vital Signs: Vital Signs Temperature 100.5 F H 08/15/18 16:00 Pulse Rate 93 H 08/15/18 18:00 Respiratory Rate 27 H 08/15/18 18:48 Blood Pressure 155/82 08/15/18 18:00 O2 Sat by Pulse Oximetry (%) 96 08/15/18 10:40 Constitutional: Yes: No Distress Cardiovascular: Yes: Regular Rate and Rhythm, S1, S2 Respiratory: Yes: Mechanically Ventilated Gastrointestinal: Yes: Normal Bowel Sounds, Soft Labs: CBC, BMP 08/15/18 05:30 08/15/18 05:30 INR, PTT INR 1.49 (0.83-1.09) H 08/08/18 19:37 Assessment/Plan FEVER/ LEUKOCYTOSIS ACUTE RESPIRATORY FAILURE COPD EXACERBATION HIV STABLE RECULTURE EMPIRIC ZOSYN/VANCOMYCIN CONTINUE VENTILATORY SUPPORT
[2018-08-15] MEDS: VANCOMYCIN 1 GM PREMIX - 1 GM/200 ML BAG IVPB SCH (21:47)
[2018-08-16] MEDS ORDERED: fentaNYL CITRATE 250 MCG/5 ML VIAL ONE ×5 (00:44→23:54)
[2018-08-16] MEDS ORDERED: PROPOFOL 2,000,000 MCG/200 ML VIAL ONE (00:46)
[2018-08-16] MEDS ORDERED: PIPERACILLIN/TAZOBACTAM 3.375 GM VIAL IVPB ONE ×3 (01:31→17:39)
[2018-08-16] MEDS ORDERED: DEXTROSE 5%-WATER - 50 ML IVPB ONE ×3 (01:31→17:39)
[2018-08-16] MEDS: methylPREDNISolone NA SUCC 40 MG/1 ML VIAL IVPUSH SCH ×3 (01:32→17:41)
[2018-08-16] MEDS: PIPERACILLIN/TAZOB 3.375 GM 3.375 GM in DEXTROSE 5%-WATER - 50 ML IVPB SCH ×3 (01:32→17:42)
[2018-08-16] MEDS ORDERED: PT OWN MED DRAWER 7, Y5N ONE ×2 (04:59→15:09)
[2018-08-16] MEDS: hydrALAZINE HCL 50 MG TABLET (FP) NGT SCH ×3 (05:02→22:10)
[2018-08-16] MEDS: VANCOMYCIN 1 GM PREMIX - 1 GM/200 ML BAG IVPB SCH ×2 (06:02→18:03)
[2018-08-16] MEDS: MIDAZOLAM HCL 2 MG/2 ML SINGLE DOSE VIAL IVPUSH PRN ×2 (06:02→19:49)
--- NOTE | 2018-08-16 06:38 | PN ---
Physical Exam: SUBJECTIVE: Patient seen and examined HD# 8 Overnight Events: Mild fever overnight. Responsive to acetaminophen. Antibiotics restarted for likely pneumonia. OBJECTIVE: Lines: - PIV Drains: - NG Tube - Torres Catheter Ventilator: Mode: A/C Vent rate: 16 Tv: 350 PEEP: 5 FiO2: 50% Intake & Output 08/13/18 08/14/18 08/15/18 08/16/18 23:59 23:59 23:59 23:59 Intake Total 1199 1663 3210 2038 Output Total 2200 3000 1500 700 Balance -1001 -1337 1710 1338 Weight 53.8 kg 54.6 kg Vital Signs Period Temp Pulse Resp BP Sys/Buck Pulse Ox Last 24 Hr 99.5 F-100.5 F 77-103 19-29 142-181/75-98 95-96 GENERAL: The patient is sedated but eyes are open spontaneously. Does not appear to track. HEAD: Normal with no signs of trauma. EYES: Conjunctiva clear. No ptosis. LUNGS: Mechanically ventilated. Decreased breath sounds in the inferior lung mazariegos. No wheezes or crackles. HEART: Regular rate and rhythm, S1, S2 without murmur, rub or gallop. ABDOMEN: Soft and nondistended. EXTREMITIES: 2+ pulses, warm, well-perfused, trace pretibial edema. SKIN: Warm and dry Laboratory Results - last 24 hr 08/15/18 08/15/18 05:30 05:30 WBC 18.3 H RBC 3.29 L Hgb 10.1 L Hct 31.0 L MCV 94.1 MCH 30.7 MCHC 32.6 RDW 15.2 Plt Count 239 MPV 7.6 D Absolute Neuts (auto) 15.8 H Neutrophils % 86.3 H Neutrophils % (Manual) 84.0 H Band Neutrophils % 3.0 Lymphocytes % 2.1 L D Lymphocytes % (Manual) 1.0 L D Monocytes % 11.4 H Monocytes % (Manual) 11 H D Eosinophils % 0.0 Eosinophils % (Manual) 0.0 Basophils % 0.2 Basophils % (Manual) 0.0 Myelocytes % (Man) 0 Promyelocytes % (Man) 0 Blast Cells % (Manual) 0 Nucleated RBC % 0 Metamyelocytes 1 D Hypochromia 0 Platelet Estimate Normal Polychromasia 1+ Poikilocytosis 0 Anisocytosis 0 Microcytosis 0 Macrocytosis 1+ Target Cells 2+ Ovalocytes 1+ Sodium 142 Potassium 4.3 Chloride 104 Carbon Dioxide 36 H Anion Gap 3 L BUN 36 H Creatinine 0.7 Creat Clearance w eGFR 83.47 Random Glucose 200 H Calcium 9.0 Triglycerides 246 H Cholesterol 159 Total LDL Cholesterol 82 HDL Cholesterol 30 L Active Medications Generic Name Dose Route Start Last Admin Trade Name Freq PRN Reason Stop Dose Admin Abacavir/Dolutegravir/Lamivudine 1 each 08/10/18 14:00 08/15/18 09:19 Triumeq (Non-Formulary) PO 1 each DAILY [facility] Administration Acetaminophen 1,000 mg 08/15/18 12:31 08/15/18 14:10 Ofirmev Injection - IVPB 1,000 mg Q6H PRN Administration FEVER Albuterol Sulfate 1 amp 08/15/18 16:00 08/15/18 20:50 Ventolin 0.083% Nebulizer Soln - NEB 1 amp RQID [facility] Administration Albuterol Sulfate 1 amp 08/15/18 12:32 Ventolin 0.083% Nebulizer Soln - NEB Q4H PRN SHORT OF BREATH/WHEEZING Carvedilol 12.5 mg 08/10/18 10:00 08/15/18 21:49 Coreg - PO 12.5 mg BID [facility] Administration Clopidogrel Bisulfate 75 mg 08/10/18 10:00 08/15/18 09:18 Plavix - PO 75 mg DAILY [facility] Administration Heparin Sodium (Porcine) 5,000 unit 08/09/18 10:00 08/15/18 21:48 Heparin - SQ 5,000 unit BID [facility] Administration Hydralazine HCl 50 mg 08/11/18 14:08 08/16/18 05:02 Apresoline - NGT 50 mg TID [facility] Administration Propofol 1,000,000 mcg in 100 mls @ 1.66 mls/hr 08/10/18 19:30 08/15/18 21:48 Diprivan - IVPB 60 mcg/kg/min TITR [facility] 19.922 mls/hr Administration Protocol 5 MCG/KG/MIN Fentanyl 500 mcg/ Dextrose 100 mls @ 5 mls/hr 08/10/18 20:15 08/15/18 21:49 IVPB Not Given TITR [facility] Protocol 25 MCG/HR Vancomycin HCl 1 gm in 200 mls @ 133.333 mls/hr 08/15/18 19:00 08/16/18 06:02 Vancomycin 1 Gm Premix - IVPB 133.333 mls/hr BID@0700,1900 [facility] Administration Protocol Piperacillin Sod/Tazobactam 50 mls @ 100 mls/hr 08/15/18 18:00 08/16/18 01:32 Sod 3.375 gm/ Dextrose IVPB 100 mls/hr Q8H-IV [facility] Administration Protocol Losartan Potassium 50 mg 08/11/18 13:00 08/15/18 21:49 Cozaar - PO 50 mg BID [facility] Administration Methylprednisolone Sodium Succinate 80 mg 08/12/18 18:00 08/16/18 01:32 Solu-Medrol - IVPUSH 80 mg Q8H-IV [facility] Administration Midazolam HCl 2 mg 08/14/18 20:55 08/16/18 06:02 Versed - IVPUSH 2 mg Q3H PRN Administration AGITATION Pantoprazole Sodium 40 mg 08/11/18 13:15 08/15/18 09:18 Protonix Iv IVPUSH 40 mg DAILY [facility] Administration Polyethylene Glycol 17 gm 08/15/18 13:30 08/15/18 14:10 Miralax (For Daily Use) - NGT 17 gm DAILY [facility] Administration Ranolazine 500 mg 08/10/18 11:30 08/15/18 21:48 Ranexa - PO 500 mg BID [facility] Administration Spironolactone 25 mg 08/11/18 14:15 08/15/18 09:18 Aldactone - NGT 25 mg DAILY [facility] Administration ASSESSMENT/PLAN: 67 year old female with HTN, CAD s/p CABG in 2009, PVD with B/L LE stents, HIV, HEP C, COPD and CHF. Admitted to the ICU for Acute hypoxic hypercapnic respiratory failure and dehydration. Neuro (& Psych): - Sedated with Propofol and Fentanyl drips - Versed PRN for increased agitation Endocrine: - Consult: Dr. Leach - Acute Kidney Injury - Monitoring electrolytes - GFR improving Cardiovascular: - Consult: Dr. Fitzgerald - LV Diastolic/Systolic Dysfunction - CAD s/p CABG, continue Clopidogrel - HTN continue Carvedilol, Hydralazine, Losartan - PAD - Continue Ranolazine and Spironolactone Pulm / Resp: - Consult: Dr. Harrell - Acute on Chronic Hypoxic and Hypercapneic Respiratory Failure - Acute COPD Exacerbation, continue albuterol, methylprednisolone - Severe Pulmonary HTN - Bilateral infiltrates on CXR concerning for acute pneumonia - Plan to continue to optimize for vent wean. Noted to be breathing over vent with breath stacking. Vent settings adjusted to allow for prolonged I to E ratio. Gastrointestinal: - Polyethylene Glycol for constipation Infectious Disease: - Consult: Dr. Velasco - HIV, continue HAART Therapy - Hep C s/p treatment - Febrile this AM. Ordered PRN Tylenol. - Sputum culture grew Pseudomonas and Presumptive MSSA - Urine culture grew Group D Strep or Entero Coccus, Lactose Fermenting Neg Bacilli, and Non Lactose Fermenting Gnb. - Antibiotics restarted. Continue Vanc and Zosyn. FEN: - Tube Feed per dietary Prophylaxis: - DVT: Heparin - GI: Pantoprazole Dispo: Pt to remain on ICU service. Intubated and sedated. Andrez Tolentino MD, PGY1 Visit type - Emergency Visit Emergency Visit: No - New Patient This patient is new to me today: No - Critical Care Critical Care patient: Yes Total Critical Care Time (in minutes): 38 Critical Care Statement: The care of this patient involved high complexity decision making to prevent further life threatening deterioration of the patient 's condition and/or to evaluate & treat vital organ system(s) failure or risk of failure.
[2018-08-16 06:45] LABS: BASO % 0.2 % (0-2.0); EOS % 0.1 % (0-4.5); HEMATOCRIT 30.6 % (32.4-45.2); HEMOGLOBIN 10.1 GM/dL (10.7-15.3); LYMPH % 1.9 % (8-40); MCH 31.2 pg (25.7-33.7); MCHC 33.1 g/dl (32.0-36.0); MEAN CELL VOLUME 94.4 fl (80-96); MEAN PLT VOLUME 8.3 fl (7.5-11.1); MONO % 11.9 % (3.8-10.2); NEUT % 85.9 % (42.8-82.8); PLATELET COUNT 231 K/MM3 (134-434); RBC 3.24 M/mm3 (3.60-5.2); RDW 15.6 % (11.6-15.6); WHITE BLOOD COUNT 21.9 K/mm3 (4.0-10.0)
[2018-08-16] MEDS: FENTANYL INJECTION 500 MCG in DEXTROSE 5%-WATER - 90 ML IVPB SCH ×3 (07:19→19:50)
[2018-08-16 07:20] LABS: ALBUMIN 2.4 g/dl (3.4-5.0); ALK PHOS 58 U/L (45-117); ANION GAP 3 MMOL/L (8-16); BILIRUBIN,TOTAL 0.9 mg/dL (0.2-1); BLOOD UREA NITROGEN 37 mg/dL (7-18); CALCIUM 8.9 mg/dL (8.5-10.1); CHLORIDE 99 mmol/L (98-107); CO2 35 mmol/L (21-32); CREATININE 0.6 mg/dL (0.55-1.3); GLUCOSE,RANDOM 288 mg/dL (74-106); MAGNESIUM 1.9 mg/dL (1.8-2.4); PHOSPHOROUS 2.8 mg/dL (2.5-4.9); POTASSIUM 4.3 mmol/L (3.5-5.1); SGOT/AST 23 U/L (15-37); SGPT/ALT 21 U/L (13-61); SODIUM 138 mmol/L (136-145); TOT PROT 6.4 g/dl (6.4-8.2)
[2018-08-16] MEDS: ALBUTEROL SO4 0.083% IH SOL 2.5 MG/3 ML VIAL.NEB. NEB SCH ×4 (07:50→21:45)
[2018-08-16] MEDS: CLOPIDOGREL BISULFATE 75 MG TABLET (FP) PO SCH (09:45)
[2018-08-16] MEDS: LOSARTAN POTASSIUM 50 MG TABLET (FP) PO SCH ×2 (09:45→22:10)
[2018-08-16] MEDS: SPIRONOLACTONE 25 MG TABLET (FP) NGT SCH (09:45)
[2018-08-16] MEDS: RANOLAZINE E.R. 500 MG TABLET (FP) PO SCH ×2 (09:45→22:10)
[2018-08-16] MEDS: CARVEDILOL 12.5 MG TABLET (FP) PO SCH ×2 (09:45→22:10)
[2018-08-16] MEDS: POLYETHYLENE GLYCOL 3350 119 GM BTL NGT SCH (09:46)
[2018-08-16] MEDS: PANTOPRAZOLE SODIUM 40 MG VIAL IVPUSH SCH (09:46)
[2018-08-16] MEDS: ABACAVIR/DOLUTEGRAVIR/LAMIVUDI (TRIUMEQ) TABLET -NF PO SCH (10:00)
[2018-08-16] MEDS: PROPOFOL 1,000,000 MCG/100 ML VIAL IVPB SCH ×3 (10:30→22:09)
--- NOTE | 2018-08-16 11:54 | PN ---
Teaching Attending Note Name of Resident: Andrez Tolentino ATTENDING PHYSICIAN STATEMENT I saw and evaluated the patient. I reviewed the resident's note and discussed the case with the resident. I agree with the resident's findings and plan as documented. SUBJECTIVE: Patient seen and examined in the ICU. Remains intubated. AC Mode of vent, 50% FiO2. No pressors. Flow loops still reveal significant obstruction but less than prior to the weekend. OBJECTIVE: Intake & Output 08/13/18 08/14/18 08/15/18 08/16/18 23:59 23:59 23:59 23:59 Intake Total 1199 1663 3210 2038 Output Total 2200 3000 1500 700 Balance -1001 -1337 1710 1338 Weight 118 lb 9.739 oz 120 lb 5.958 oz Last Vital Signs Temp Pulse Resp BP Pulse Ox 99.6 F 95 H 26 H 154/79 100 08/16/18 06:00 08/16/18 09:00 08/16/18 09:00 08/16/18 09:00 08/16/18 08:52 Active Medications Abacavir/Dolutegravir/Lamivudine (Triumeq (Non-Formulary)) 1 each PO DAILY [facility] Last Admin: 08/15/18 09:19 Dose: 1 each Acetaminophen (Ofirmev Injection -) 1,000 mg IVPB Q6H PRN PRN Reason: FEVER Last Admin: 08/15/18 14:10 Dose: 1,000 mg Albuterol Sulfate (Ventolin 0.083% Nebulizer Soln -) 1 amp NEB RQID [facility] Last Admin: 08/16/18 07:50 Dose: 1 amp Albuterol Sulfate (Ventolin 0.083% Nebulizer Soln -) 1 amp NEB Q4H PRN PRN Reason: SHORT OF BREATH/WHEEZING Carvedilol (Coreg -) 12.5 mg PO BID [facility] Last Admin: 08/16/18 09:45 Dose: 12.5 mg Clopidogrel Bisulfate (Plavix -) 75 mg PO DAILY [facility] Last Admin: 08/16/18 09:45 Dose: 75 mg Hydralazine HCl (Apresoline -) 50 mg NGT TID [facility] Last Admin: 08/16/18 05:02 Dose: 50 mg Propofol (Diprivan -) 1,000,000 mcg in 100 mls @ 1.66 mls/hr IVPB TITR [facility]; Protocol Last Admin: 08/15/18 21:48 Dose: 60 mcg/kg/min, 19.922 mls/hr Fentanyl 500 mcg/ Dextrose 100 mls @ 5 mls/hr IVPB TITR [facility]; Protocol Last Admin: 08/16/18 07:19 Dose: 100 mcg/hr, 20 mls/hr Vancomycin HCl (Vancomycin 1 Gm Premix -) 1 gm in 200 mls @ 133.333 mls/hr IVPB BID@0700,1900 [facility]; Protocol Last Admin: 08/16/18 06:02 Dose: 133.333 mls/hr Piperacillin Sod/Tazobactam (Sod 3.375 gm/ Dextrose) 50 mls @ 100 mls/hr IVPB Q8H-IV [facility]; Protocol Last Admin: 08/16/18 09:47 Dose: 100 mls/hr Losartan Potassium (Cozaar -) 50 mg PO BID [facility] Last Admin: 08/16/18 09:45 Dose: 50 mg Methylprednisolone Sodium Succinate (Solu-Medrol -) 80 mg IVPUSH Q8H-IV [facility] Last Admin: 08/16/18 09:47 Dose: 80 mg Midazolam HCl (Versed -) 2 mg IVPUSH Q3H PRN PRN Reason: AGITATION Last Admin: 08/16/18 06:02 Dose: 2 mg Pantoprazole Sodium (Protonix Iv) 40 mg IVPUSH DAILY [facility] Last Admin: 08/16/18 09:46 Dose: 40 mg Polyethylene Glycol (Miralax (For Daily Use) -) 17 gm NGT DAILY [facility] Last Admin: 08/16/18 09:46 Dose: 17 gm Ranolazine (Ranexa -) 500 mg PO BID [facility] Last Admin: 08/16/18 09:45 Dose: 500 mg Spironolactone (Aldactone -) 25 mg NGT DAILY [facility] Last Admin: 08/16/18 09:45 Dose: 25 mg Gen: intubated, sedated Heart: RRR Lung: decreased breath sounds at the bases Abd: soft, nontender Ext: no edema Laboratory Results - last 24 hr 08/16/18 08/16/18 05:30 05:30 WBC 21.9 H RBC 3.24 L Hgb 10.1 L Hct 30.6 L MCV 94.4 MCH 31.2 MCHC 33.1 RDW 15.6 Plt Count 231 MPV 8.3 Absolute Neuts (auto) 18.8 H Neutrophils % 85.9 H Lymphocytes % 1.9 L Monocytes % 11.9 H Eosinophils % 0.1 D Basophils % 0.2 Nucleated RBC % 0 Sodium 138 Potassium 4.3 Chloride 99 Carbon Dioxide 35 H Anion Gap 3 L BUN 37 H Creatinine 0.6 Creat Clearance w eGFR 99.72 Random Glucose 288 H Calcium 8.9 Phosphorus 2.8 Magnesium 1.9 Total Bilirubin 0.9 AST 23 ALT 21 Alkaline Phosphatase 58 Total Protein 6.4 Albumin 2.4 L ASSESSMENT AND PLAN: Acute on Chronic Hypoxic and Hypercapneic Respiratory Failure Acute COPD Exacerbation Acute Kidney Injury Altered Mental Status LV Diastolic/Systolic Dysfunction Severe Pulmonary HTN CAD s/p CABG HIV PAD HTN - Current vent settings (adjusted to allow for prolonged I:E Ratio) - Medrol - Inhaled bronchodilators standing & PRN - Enteral feeds - monitor urine output, creatinine - Monitor lytes - Daily sedation vacations - Wean trials as tolerated - DVT prophylaxis - continue ICU monitoring Dr Suero Critical care time spent in reviewing chart, evaluating patient and formulating plan 36 min
--- NOTE | 2018-08-16 13:11 | PN ---
Progress Note, Physician History of Present Illness: Pt seen and examined at bedside. She remains in the ICU. She remains intubated. - Current Medication List Current Medications: Active Medications Abacavir/Dolutegravir/Lamivudine (Triumeq (Non-Formulary)) 1 each PO DAILY [facility] Last Admin: 08/15/18 09:19 Dose: 1 each Acetaminophen (Ofirmev Injection -) 1,000 mg IVPB Q6H PRN PRN Reason: FEVER Last Admin: 08/15/18 14:10 Dose: 1,000 mg Albuterol Sulfate (Ventolin 0.083% Nebulizer Soln -) 1 amp NEB RQID [facility] Last Admin: 08/16/18 11:15 Dose: 1 amp Albuterol Sulfate (Ventolin 0.083% Nebulizer Soln -) 1 amp NEB Q4H PRN PRN Reason: SHORT OF BREATH/WHEEZING Carvedilol (Coreg -) 12.5 mg PO BID [facility] Last Admin: 08/16/18 09:45 Dose: 12.5 mg Clopidogrel Bisulfate (Plavix -) 75 mg PO DAILY [facility] Last Admin: 08/16/18 09:45 Dose: 75 mg Hydralazine HCl (Apresoline -) 50 mg NGT TID [facility] Last Admin: 08/16/18 05:02 Dose: 50 mg Propofol (Diprivan -) 1,000,000 mcg in 100 mls @ 1.66 mls/hr IVPB TITR [facility]; Protocol Last Admin: 08/15/18 21:48 Dose: 60 mcg/kg/min, 19.922 mls/hr Fentanyl 500 mcg/ Dextrose 100 mls @ 5 mls/hr IVPB TITR [facility]; Protocol Last Admin: 08/16/18 07:19 Dose: 100 mcg/hr, 20 mls/hr Vancomycin HCl (Vancomycin 1 Gm Premix -) 1 gm in 200 mls @ 133.333 mls/hr IVPB BID@0700,1900 [facility]; Protocol Last Admin: 08/16/18 06:02 Dose: 133.333 mls/hr Piperacillin Sod/Tazobactam (Sod 3.375 gm/ Dextrose) 50 mls @ 100 mls/hr IVPB Q8H-IV [facility]; Protocol Last Admin: 08/16/18 09:47 Dose: 100 mls/hr Losartan Potassium (Cozaar -) 50 mg PO BID [facility] Last Admin: 08/16/18 09:45 Dose: 50 mg Methylprednisolone Sodium Succinate (Solu-Medrol -) 80 mg IVPUSH Q8H-IV [facility] Last Admin: 08/16/18 09:47 Dose: 80 mg Midazolam HCl (Versed -) 2 mg IVPUSH Q3H PRN PRN Reason: AGITATION Last Admin: 08/16/18 06:02 Dose: 2 mg Pantoprazole Sodium (Protonix Iv) 40 mg IVPUSH DAILY [facility] Last Admin: 08/16/18 09:46 Dose: 40 mg Polyethylene Glycol (Miralax (For Daily Use) -) 17 gm NGT DAILY [facility] Last Admin: 08/16/18 09:46 Dose: 17 gm Ranolazine (Ranexa -) 500 mg PO BID [facility] Last Admin: 08/16/18 09:45 Dose: 500 mg Spironolactone (Aldactone -) 25 mg NGT DAILY [facility] Last Admin: 08/16/18 09:45 Dose: 25 mg - Objective Vital Signs: Vital Signs Temperature 99.6 F 08/16/18 06:00 Pulse Rate 95 H 08/16/18 09:00 Respiratory Rate 29 H 08/16/18 11:40 Blood Pressure 154/79 08/16/18 09:00 O2 Sat by Pulse Oximetry (%) 97 08/16/18 12:08 Constitutional: Yes: Calm Eyes: Yes: Conjunctiva Clear HENT: Yes: Atraumatic Cardiovascular: Yes: S1, S2 Respiratory: Yes: Mechanically Ventilated Gastrointestinal: Yes: Soft Genitourinary: Yes: Torres Present Musculoskeletal: Yes: Muscle Weakness Edema: No Neurological: Yes: Lethargy Labs: CBC, BMP 08/16/18 05:30 08/16/18 05:30 INR, PTT INR 1.49 (0.83-1.09) H 08/08/18 19:37 Problem List - Problems (1) Acute renal failure Code(s): N17.9 - ACUTE KIDNEY FAILURE, UNSPECIFIED Qualifiers: Acute renal failure type: unspecified Qualified Code(s): N17.9 - Acute kidney failure, unspecified (2) Altered mental status, unspecified Code(s): R41.82 - ALTERED MENTAL STATUS, UNSPECIFIED Qualifiers: Altered mental status type: somnolence Qualified Code(s): R40.0 - Somnolence (3) CHF (congestive heart failure) Code(s): I50.9 - HEART FAILURE, UNSPECIFIED Qualifiers: Heart failure type: diastolic Heart failure chronicity: chronic Qualified Code(s): I50.32 - Chronic diastolic (congestive) heart failure (4) COPD with acute exacerbation Code(s): J44.1 - CHRONIC OBSTRUCTIVE PULMONARY DISEASE W (ACUTE) EXACERBATION (5) Hyperkalemia Code(s): E87.5 - HYPERKALEMIA Assessment/Plan Current Medications Generic Name Dose Route Start Last Admin Trade Name Freq PRN Reason Stop Dose Admin Abacavir/Dolutegravir/Lamivudine 1 each 08/10/18 14:00 08/15/18 09:19 Triumeq (Non-Formulary) PO 1 each DAILY [facility] Administration Acetaminophen 1,000 mg 08/15/18 12:31 08/15/18 14:10 Ofirmev Injection - IVPB 1,000 mg Q6H PRN Administration FEVER Albuterol Sulfate 1 amp 08/15/18 16:00 08/16/18 11:15 Ventolin 0.083% Nebulizer Soln - NEB 1 amp RQID [facility] Administration Albuterol Sulfate 1 amp 08/15/18 12:32 Ventolin 0.083% Nebulizer Soln - NEB Q4H PRN SHORT OF BREATH/WHEEZING Carvedilol 12.5 mg 08/10/18 10:00 08/16/18 09:45 Coreg - PO 12.5 mg BID [facility] Administration Clopidogrel Bisulfate 75 mg 08/10/18 10:00 08/16/18 09:45 Plavix - PO 75 mg DAILY [facility] Administration Hydralazine HCl 50 mg 08/11/18 14:08 08/16/18 05:02 Apresoline - NGT 50 mg TID [facility] Administration Propofol 1,000,000 mcg in 100 mls @ 1.66 mls/hr 08/10/18 19:30 08/15/18 21:48 Diprivan - IVPB 60 mcg/kg/min TITR [facility] 19.922 mls/hr Administration Protocol 5 MCG/KG/MIN Fentanyl 500 mcg/ Dextrose 100 mls @ 5 mls/hr 08/10/18 20:15 08/16/18 07:19 IVPB 100 mcg/hr TITR [facility] 20 mls/hr Administration Protocol 25 MCG/HR Vancomycin HCl 1 gm in 200 mls @ 133.333 mls/hr 08/15/18 19:00 08/16/18 06:02 Vancomycin 1 Gm Premix - IVPB 133.333 mls/hr BID@0700,1900 [facility] Administration Protocol Piperacillin Sod/Tazobactam 50 mls @ 100 mls/hr 08/15/18 18:00 08/16/18 09:47 Sod 3.375 gm/ Dextrose IVPB 100 mls/hr Q8H-IV [facility] Administration Protocol Losartan Potassium 50 mg 08/11/18 13:00 08/16/18 09:45 Cozaar - PO 50 mg BID [facility] Administration Methylprednisolone Sodium Succinate 80 mg 08/12/18 18:00 08/16/18 09:47 Solu-Medrol - IVPUSH 80 mg Q8H-IV [facility] Administration Midazolam HCl 2 mg 08/14/18 20:55 08/16/18 06:02 Versed - IVPUSH 2 mg Q3H PRN Administration AGITATION Pantoprazole Sodium 40 mg 08/11/18 13:15 08/16/18 09:46 Protonix Iv IVPUSH 40 mg DAILY [facility] Administration Polyethylene Glycol 17 gm 08/15/18 13:30 08/16/18 09:46 Miralax (For Daily Use) - NGT 17 gm DAILY [facility] Administration Ranolazine 500 mg 08/10/18 11:30 08/16/18 09:45 Ranexa - PO 500 mg BID [facility] Administration Spironolactone 25 mg 08/11/18 14:15 08/16/18 09:45 Aldactone - NGT 25 mg DAILY [facility] Administration Impression 1. KRISTIAN 2. Hyperkalemia 3. HIV 4. hyponatremia 5. altered mental status 6. pulm HTN 7. htn 8. pvd 9. resp acidosis 10. resp failure requiring intubation Plan - sodium stable - pt tolerating feeds - renal function stabilizing - bun remains elevated, likely secondary to steroids - vent support - kristian likely from pre-renal disease
[2018-08-16 13:30] LABS: TARGET CELLS 1+; TEAR DROP CELLS 2+
--- NOTE | 2018-08-16 13:57 | PN ---
Progress Note, Physician Chief Complaint: Events noted Remains in ICU Intubated and sedated History of Present Illness: Patient was seen and examined. Mechanical ventilation. Chart was reviewed - Current Medication List Current Medications: Active Medications Abacavir/Dolutegravir/Lamivudine (Triumeq (Non-Formulary)) 1 each PO DAILY [facility] Last Admin: 08/15/18 09:19 Dose: 1 each Acetaminophen (Ofirmev Injection -) 1,000 mg IVPB Q6H PRN PRN Reason: FEVER Last Admin: 08/15/18 14:10 Dose: 1,000 mg Albuterol Sulfate (Ventolin 0.083% Nebulizer Soln -) 1 amp NEB RQID [facility] Last Admin: 08/16/18 11:15 Dose: 1 amp Albuterol Sulfate (Ventolin 0.083% Nebulizer Soln -) 1 amp NEB Q4H PRN PRN Reason: SHORT OF BREATH/WHEEZING Carvedilol (Coreg -) 12.5 mg PO BID [facility] Last Admin: 08/16/18 09:45 Dose: 12.5 mg Clopidogrel Bisulfate (Plavix -) 75 mg PO DAILY [facility] Last Admin: 08/16/18 09:45 Dose: 75 mg Hydralazine HCl (Apresoline -) 50 mg NGT TID [facility] Last Admin: 08/16/18 05:02 Dose: 50 mg Propofol (Diprivan -) 1,000,000 mcg in 100 mls @ 1.66 mls/hr IVPB TITR [facility]; Protocol Last Admin: 08/15/18 21:48 Dose: 60 mcg/kg/min, 19.922 mls/hr Fentanyl 500 mcg/ Dextrose 100 mls @ 5 mls/hr IVPB TITR [facility]; Protocol Last Admin: 08/16/18 07:19 Dose: 100 mcg/hr, 20 mls/hr Vancomycin HCl (Vancomycin 1 Gm Premix -) 1 gm in 200 mls @ 133.333 mls/hr IVPB BID@0700,1900 [facility]; Protocol Last Admin: 08/16/18 06:02 Dose: 133.333 mls/hr Piperacillin Sod/Tazobactam (Sod 3.375 gm/ Dextrose) 50 mls @ 100 mls/hr IVPB Q8H-IV [facility]; Protocol Last Admin: 08/16/18 09:47 Dose: 100 mls/hr Losartan Potassium (Cozaar -) 50 mg PO BID [facility] Last Admin: 08/16/18 09:45 Dose: 50 mg Methylprednisolone Sodium Succinate (Solu-Medrol -) 80 mg IVPUSH Q8H-IV [facility] Last Admin: 08/16/18 09:47 Dose: 80 mg Midazolam HCl (Versed -) 2 mg IVPUSH Q3H PRN PRN Reason: AGITATION Last Admin: 08/16/18 06:02 Dose: 2 mg Pantoprazole Sodium (Protonix Iv) 40 mg IVPUSH DAILY [facility] Last Admin: 08/16/18 09:46 Dose: 40 mg Polyethylene Glycol (Miralax (For Daily Use) -) 17 gm NGT DAILY [facility] Last Admin: 08/16/18 09:46 Dose: 17 gm Ranolazine (Ranexa -) 500 mg PO BID [facility] Last Admin: 08/16/18 09:45 Dose: 500 mg Spironolactone (Aldactone -) 25 mg NGT DAILY [facility] Last Admin: 08/16/18 09:45 Dose: 25 mg - Objective Vital Signs: Vital Signs Temperature 99.6 F 08/16/18 06:00 Pulse Rate 95 H 08/16/18 09:00 Respiratory Rate 29 H 08/16/18 11:40 Blood Pressure 154/79 08/16/18 09:00 O2 Sat by Pulse Oximetry (%) 97 08/16/18 12:08 Neck: Yes: Supple Cardiovascular: Yes: Regular Rate and Rhythm, S1, S2 Respiratory: Yes: Intubated, Mechanically Ventilated Gastrointestinal: Yes: Normal Bowel Sounds, Soft. No: Tenderness Edema: No Labs: CBC, BMP 08/16/18 05:30 08/16/18 05:30 Problem List - Problems (1) Altered mental status, unspecified Code(s): R41.82 - ALTERED MENTAL STATUS, UNSPECIFIED Qualifiers: Qualified Code(s): R40.0 - Somnolence (2) CHF (congestive heart failure) Code(s): I50.9 - HEART FAILURE, UNSPECIFIED Qualifiers: Qualified Code(s): I50.32 - Chronic diastolic (congestive) heart failure (3) COPD with acute exacerbation Code(s): J44.1 - CHRONIC OBSTRUCTIVE PULMONARY DISEASE W (ACUTE) EXACERBATION (4) Elevated troponin I level Code(s): R74.8 - ABNORMAL LEVELS OF OTHER SERUM ENZYMES (5) Leukocytosis Code(s): D72.829 - ELEVATED WHITE BLOOD CELL COUNT, UNSPECIFIED (6) Respiratory failure requiring intubation Code(s): J96.90 - RESPIRATORY FAILURE, UNSP, UNSP W HYPOXIA OR HYPERCAPNIA (7) Severe pulmonary arterial systolic hypertension Code(s): I27.21 - SECONDARY PULMONARY ARTERIAL HYPERTENSION (8) Asthma Code(s): J45.909 - UNSPECIFIED ASTHMA, UNCOMPLICATED (9) Asymptomatic cholelithiasis Code(s): K80.20 - CALCULUS OF GALLBLADDER W/O CHOLECYSTITIS W/O OBSTRUCTION (10) COPD (chronic obstructive pulmonary disease) Code(s): J44.9 - CHRONIC OBSTRUCTIVE PULMONARY DISEASE, UNSPECIFIED Qualifiers: (11) HIV Code(s): Z21 - ASYMPTOMATIC HUMAN IMMUNODEFICIENCY VIRUS INFECTION STATUS (12) HTN (hypertension) Code(s): I10 - ESSENTIAL (PRIMARY) HYPERTENSION Qualifiers: Qualified Code(s): I10 - Essential (primary) hypertension (13) Hyperlipidemia Code(s): E78.5 - HYPERLIPIDEMIA, UNSPECIFIED Qualifiers: Qualified Code(s): E78.00 - Pure hypercholesterolemia, unspecified; E78.0 - Pure hypercholesterolemia (14) PVD (peripheral vascular disease) Code(s): I73.9 - PERIPHERAL VASCULAR DISEASE, UNSPECIFIED (15) S/P CABG (coronary artery bypass graft) Code(s): Z95.1 - PRESENCE OF AORTOCORONARY BYPASS GRAFT Assessment/Plan 1. Acute on chronic hypercapneic/hypoxemic respiratory failure - mechanical ventilation 2. Acute exacerbation of chronic obstructive pulmonary disease 3. Right Heart Failure/Volume Overload with Severe Pulmonary HTN 4. Diastolic dysfunction 5. CAD s/p CABG, demand ischemia 7. HTN 8. Hypercholesterolemia 9. HIV and Hepatitis C 10. PAD s/p SFA stent 11. Pre-renal Acute on CKD improving, hyperkalemia and hyponatremia 12. Toxic metabolic encephelopathy 13. Cholelithiasis PLAN: 1. Continue Aldactone 25 mg QD and Losartan 50 mg BID as tolerated 2. Continue Carvedilol 12.5 mg BID, Plavix 75 mg QD, Hydralazine 50 mg TID, Lipitor 10 mg QD and Ranexa 500 mg BID as tolerated (via NG) 3. IV steroid, bronchodilator and vent management as per critical care team. 4. Continue antibiotic coverage 5. DVT prophylaxis and enteral feeds Guarded. Chato Beltran MD
[2018-08-16] MEDS ORDERED: LORazepam 2 MG/ML SDV VIAL ONE (15:53)
--- NOTE | 2018-08-16 17:38 | PN ---
Progress Note, Physician History of Present Illness: intubated - Current Medication List Current Medications: Active Medications Abacavir/Dolutegravir/Lamivudine (Triumeq (Non-Formulary)) 1 each PO DAILY [facility] Last Admin: 08/16/18 10:00 Dose: 1 each Acetaminophen (Tylenol Oral Solution -) 1,000 mg PO Q6H PRN PRN Reason: FEVER Albuterol Sulfate (Ventolin 0.083% Nebulizer Soln -) 1 amp NEB RQID [facility] Last Admin: 08/16/18 16:15 Dose: 1 amp Albuterol Sulfate (Ventolin 0.083% Nebulizer Soln -) 1 amp NEB Q4H PRN PRN Reason: SHORT OF BREATH/WHEEZING Carvedilol (Coreg -) 12.5 mg PO BID [facility] Last Admin: 08/16/18 09:45 Dose: 12.5 mg Clopidogrel Bisulfate (Plavix -) 75 mg PO DAILY [facility] Last Admin: 08/16/18 09:45 Dose: 75 mg Hydralazine HCl (Apresoline -) 50 mg NGT TID [facility] Last Admin: 08/16/18 15:06 Dose: 50 mg Propofol (Diprivan -) 1,000,000 mcg in 100 mls @ 1.66 mls/hr IVPB TITR [facility]; Protocol Last Admin: 08/16/18 10:30 Dose: 50 mcg/kg/min, 16.601 mls/hr Fentanyl 500 mcg/ Dextrose 100 mls @ 5 mls/hr IVPB TITR [facility]; Protocol Last Admin: 08/16/18 15:00 Dose: 100 mcg/hr, 20 mls/hr Vancomycin HCl (Vancomycin 1 Gm Premix -) 1 gm in 200 mls @ 133.333 mls/hr IVPB BID@0700,1900 [facility]; Protocol Last Admin: 08/16/18 06:02 Dose: 133.333 mls/hr Piperacillin Sod/Tazobactam (Sod 3.375 gm/ Dextrose) 50 mls @ 100 mls/hr IVPB Q8H-IV [facility]; Protocol Last Admin: 08/16/18 09:47 Dose: 100 mls/hr Losartan Potassium (Cozaar -) 50 mg PO BID [facility] Last Admin: 08/16/18 09:45 Dose: 50 mg Methylprednisolone Sodium Succinate (Solu-Medrol -) 80 mg IVPUSH Q8H-IV [facility] Last Admin: 08/16/18 09:47 Dose: 80 mg Midazolam HCl (Versed -) 2 mg IVPUSH Q3H PRN PRN Reason: AGITATION Last Admin: 08/16/18 06:02 Dose: 2 mg Pantoprazole Sodium (Protonix Iv) 40 mg IVPUSH DAILY [facility] Last Admin: 08/16/18 09:46 Dose: 40 mg Polyethylene Glycol (Miralax (For Daily Use) -) 17 gm NGT DAILY [facility] Last Admin: 08/16/18 09:46 Dose: 17 gm Ranolazine (Ranexa -) 500 mg PO BID [facility] Last Admin: 08/16/18 09:45 Dose: 500 mg Spironolactone (Aldactone -) 25 mg NGT DAILY [facility] Last Admin: 08/16/18 09:45 Dose: 25 mg - Objective Vital Signs: Vital Signs Temperature 99.6 F 08/16/18 06:00 Pulse Rate 95 H 08/16/18 09:00 Respiratory Rate 26 H 08/16/18 16:20 Blood Pressure 154/79 08/16/18 09:00 O2 Sat by Pulse Oximetry (%) 97 08/16/18 12:08 Constitutional: Yes: Calm HENT: Yes: Atraumatic Neck: Yes: Supple Cardiovascular: Yes: Regular Rate and Rhythm Respiratory: Yes: Rhonchi Gastrointestinal: Yes: Normal Bowel Sounds Extremities: Yes: WNL Edema: No Neurological: Yes: Other (sedated) Labs: CBC, BMP 08/16/18 05:30 08/16/18 05:30 INR, PTT INR 1.49 (0.83-1.09) H 08/08/18 19:37 Problem List - Problems (1) Acute renal failure Assessment/Plan: on iv hydration monitor\ Code(s): N17.9 - ACUTE KIDNEY FAILURE, UNSPECIFIED Qualifiers: Acute renal failure type: unspecified Qualified Code(s): N17.9 - Acute kidney failure, unspecified (2) Altered mental status, unspecified Code(s): R41.82 - ALTERED MENTAL STATUS, UNSPECIFIED Qualifiers: Altered mental status type: somnolence Qualified Code(s): R40.0 - Somnolence (3) COPD with acute exacerbation Assessment/Plan: steroids duo nebs INTUBATED Code(s): J44.1 - CHRONIC OBSTRUCTIVE PULMONARY DISEASE W (ACUTE) EXACERBATION (4) Elevated troponin I level Code(s): R74.8 - ABNORMAL LEVELS OF OTHER SERUM ENZYMES (5) Hyperkalemia Code(s): E87.5 - HYPERKALEMIA (6) COPD (chronic obstructive pulmonary disease) Code(s): J44.9 - CHRONIC OBSTRUCTIVE PULMONARY DISEASE, UNSPECIFIED Qualifiers: (7) HIV Assessment/Plan: continue home meds Code(s): Z21 - ASYMPTOMATIC HUMAN IMMUNODEFICIENCY VIRUS INFECTION STATUS (8) HTN (hypertension) Assessment/Plan: monitor on meds Code(s): I10 - ESSENTIAL (PRIMARY) HYPERTENSION Qualifiers: Hypertension type: essential hypertension Qualified Code(s): I10 - Essential (primary) hypertension (9) Hyperlipidemia Code(s): E78.5 - HYPERLIPIDEMIA, UNSPECIFIED Qualifiers: Hyperlipidemia type: pure hypercholesterolemia Qualified Code(s): E78.00 - Pure hypercholesterolemia, unspecified; E78.0 - Pure hypercholesterolemia (10) PVD (peripheral vascular disease) Code(s): I73.9 - PERIPHERAL VASCULAR DISEASE, UNSPECIFIED (11) CHF (congestive heart failure) Code(s): I50.9 - HEART FAILURE, UNSPECIFIED Qualifiers: Heart failure type: diastolic Heart failure chronicity: chronic Qualified Code(s): I50.32 - Chronic diastolic (congestive) heart failure Assessment/Plan cc time in icu 35 min
[2018-08-16] MEDS ORDERED: PROPOFOL 1,000,000 MCG/100 ML VIAL ONE (18:04)
[2018-08-17] MEDS ORDERED: DEXTROSE 5%-WATER - 50 ML IVPB ONE ×3 (02:16→17:56)
[2018-08-17] MEDS ORDERED: PIPERACILLIN/TAZOBACTAM 3.375 GM VIAL IVPB ONE ×3 (02:16→17:56)
[2018-08-17] MEDS: methylPREDNISolone NA SUCC 40 MG/1 ML VIAL IVPUSH SCH ×4 (02:23→18:02)
[2018-08-17] MEDS: PIPERACILLIN/TAZOB 3.375 GM 3.375 GM in DEXTROSE 5%-WATER - 50 ML IVPB SCH ×3 (02:24→18:02)
[2018-08-17] MEDS: PROPOFOL 1,000,000 MCG/100 ML VIAL IVPB SCH ×4 (02:25→18:28)
[2018-08-17] MEDS: MIDAZOLAM HCL 2 MG/2 ML SINGLE DOSE VIAL IVPUSH PRN ×3 (02:39→12:00)
[2018-08-17] MEDS: hydrALAZINE HCL 50 MG TABLET (FP) NGT SCH ×2 (06:25→14:14)
[2018-08-17] MEDS ORDERED: PT OWN MED DRAWER 7, Y5N ONE ×4 (06:26→21:46)
[2018-08-17] MEDS: VANCOMYCIN 1 GM PREMIX - 1 GM/200 ML BAG IVPB SCH ×2 (06:27→18:29)
[2018-08-17 06:44] LABS: BASO % 0.1 % (0-2.0); HEMATOCRIT 31.4 % (32.4-45.2); HEMOGLOBIN 10.2 GM/dL (10.7-15.3); LYMPH % 1.4 % (8-40); MCH 30.6 pg (25.7-33.7); MCHC 32.5 g/dl (32.0-36.0); MEAN CELL VOLUME 94.1 fl (80-96); MEAN PLT VOLUME 8.5 fl (7.5-11.1); MONO % 8.5 % (3.8-10.2); PLATELET COUNT 251 K/MM3 (134-434); RBC 3.34 M/mm3 (3.60-5.2); RDW 15.1 % (11.6-15.6)
[2018-08-17 06:55] LABS: WHITE BLOOD COUNT 31.5 K/mm3 (4.0-10.0)
[2018-08-17 07:20] LABS: ANION GAP 6 MMOL/L (8-16); BLOOD UREA NITROGEN 40 mg/dL (7-18); CHLORIDE 101 mmol/L (98-107); CO2 36 mmol/L (21-32); CREATININE 0.7 mg/dL (0.55-1.3); GLUCOSE,RANDOM 283 mg/dL (74-106); MAGNESIUM 1.9 mg/dL (1.8-2.4); PHOSPHOROUS 3.3 mg/dL (2.5-4.9); POTASSIUM 4.3 mmol/L (3.5-5.1); SODIUM 142 mmol/L (136-145)
--- NOTE | 2018-08-17 07:42 | PN ---
Physical Exam: SUBJECTIVE: Patient seen and examined at bedside. WBC spike overnight; covered w / ABX vanc zosyn. Afebrile. Patient became agitated and tachycardic this AM off of propofol, drip restarted and versed push required as she continued to overbreathe the vent and appeared uncomfortable. OBJECTIVE: Vital Signs Period Temp Pulse Resp BP Sys/Buck Pulse Ox Last 24 Hr 97.8 F-99.8 F 74-98 18-29 92-161/56-110 97-100 GENERAL: Patient intubated and sedated EYES: PERRL, sclera anicteric, conjunctiva clear. LUNGS: Breath sounds equal, crackles heard at the bases, patient overbreathing vent. HEART: Regular rate and rhythm, S1, S2 without murmur, rub or gallop. ABDOMEN: Soft, nontender, nondistended, normoactive bowel sounds, no guarding, no rebound, no hepatosplenomegaly, no masses. EXTREMITIES: 2+ pulses, warm, well-perfused, no edema. NEUROLOGICAL: unable to obtain ad patient sedated. SKIN: Warm, dry, normal turgor, no rashes or lesions noted Laboratory Results - last 24 hr 08/16/18 08/17/18 08/17/18 05:30 05:30 05:30 WBC 31.5 H* RBC 3.34 L Hgb 10.2 L Hct 31.4 L MCV 94.1 MCH 30.6 MCHC 32.5 RDW 15.1 Plt Count 251 MPV 8.5 Absolute Neuts (auto) 28.3 H Total Counted 100 Neutrophils % 90.0 H Neutrophils % (Manual) 88.0 H Band Neutrophils % 1.0 Lymphocytes % 1.4 L D Lymphocytes % (Manual) 7.0 L D Monocytes % 8.5 Monocytes % (Manual) 3 L Eosinophils % 0.0 D Eosinophils % (Manual) 1.0 D Basophils % 0.1 Nucleated RBC % 0 Poikilocytosis 1+ Target Cells 1+ Tear Drop Cells 2+ Sodium 142 Potassium 4.3 Chloride 101 Carbon Dioxide 36 H Anion Gap 6 L BUN 40 H Creatinine 0.7 Creat Clearance w eGFR 83.47 Random Glucose 283 H Calcium 9.0 Phosphorus 3.3 Magnesium 1.9 Active Medications Generic Name Dose Route Start Last Admin Trade Name Freq PRN Reason Stop Dose Admin Abacavir/Dolutegravir/Lamivudine 1 each 08/10/18 14:00 08/16/18 10:00 Triumeq (Non-Formulary) PO 1 each DAILY [facility] Administration Acetaminophen 1,000 mg 08/16/18 16:11 Tylenol Oral Solution - PO Q6H PRN FEVER Albuterol Sulfate 1 amp 08/15/18 16:00 08/16/18 21:45 Ventolin 0.083% Nebulizer Soln - NEB 1 amp RQID [facility] Administration Albuterol Sulfate 1 amp 08/15/18 12:32 Ventolin 0.083% Nebulizer Soln - NEB Q4H PRN SHORT OF BREATH/WHEEZING Carvedilol 12.5 mg 08/10/18 10:00 08/16/18 22:10 Coreg - PO 12.5 mg BID [facility] Administration Clopidogrel Bisulfate 75 mg 08/10/18 10:00 08/16/18 09:45 Plavix - PO 75 mg DAILY [facility] Administration Hydralazine HCl 50 mg 08/11/18 14:08 08/17/18 06:25 Apresoline - NGT 50 mg TID [facility] Administration Propofol 1,000,000 mcg in 100 mls @ 1.66 mls/hr 08/10/18 19:30 08/17/18 02:25 Diprivan - IVPB 60 mcg/kg/min TITR [facility] 19.922 mls/hr Administration Protocol 5 MCG/KG/MIN Fentanyl 500 mcg/ Dextrose 100 mls @ 5 mls/hr 08/10/18 20:15 08/16/18 19:50 IVPB 100 mcg/hr TITR [facility] 20 mls/hr Administration Protocol 25 MCG/HR Vancomycin HCl 1 gm in 200 mls @ 133.333 mls/hr 08/15/18 19:00 08/17/18 06:27 Vancomycin 1 Gm Premix - IVPB 133.333 mls/hr BID@0700,1900 [facility] Administration Protocol Piperacillin Sod/Tazobactam 50 mls @ 100 mls/hr 08/15/18 18:00 08/17/18 02:24 Sod 3.375 gm/ Dextrose IVPB 100 mls/hr Q8H-IV [facility] Administration Protocol Losartan Potassium 50 mg 08/11/18 13:00 08/16/18 22:10 Cozaar - PO 50 mg BID [facility] Administration Methylprednisolone Sodium Succinate 80 mg 08/12/18 18:00 08/17/18 02:23 Solu-Medrol - IVPUSH 80 mg Q8H-IV [facility] Administration Midazolam HCl 2 mg 08/14/18 20:55 08/17/18 02:39 Versed - IVPUSH 2 mg Q3H PRN Administration AGITATION Pantoprazole Sodium 40 mg 08/11/18 13:15 08/16/18 09:46 Protonix Iv IVPUSH 40 mg DAILY [facility] Administration Polyethylene Glycol 17 gm 08/15/18 13:30 08/16/18 09:46 Miralax (For Daily Use) - NGT 17 gm DAILY [facility] Administration Ranolazine 500 mg 08/10/18 11:30 08/16/18 22:10 Ranexa - PO 500 mg BID [facility] Administration Spironolactone 25 mg 08/11/18 14:15 08/16/18 09:45 Aldactone - NGT 25 mg DAILY [facility] Administration ASSESSMENT/PLAN: 67 year old female with HTN, CAD s/p CABG in 2009, PVD with B/L LE stents, HIV, HEP C, COPD and CHF. Admitted to the ICU for Acute hypoxic hypercapnic respiratory failure and dehydration. Neuro: -Sedated with Propofol and Fentanyl drips -Versed PRN for increased agitation -Daily sedation vacations; agitated this AM Endocrine: -Nephro consult: Dr. Leach -Acute Kidney Injury resolved Cardiovascular: -Cardio onboard: Dr. Fitzgerald - LV Diastolic/Systolic Dysfunction -c/w home Clopidogrel -c/w home Carvedilol, Hydralazine, Losartan for BP control -c/w home Ranolazine and Spironolactone Pulm / Resp: -Acute on Chronic Hypoxic and Hypercapneic Respiratory Failure -c/w albuterol PRN. Standing QID nebs changed from albuterol to duonebs -solu-medrol decreased from 80mg q8h to 40mg q8h -CXR w/o significant change. -Plan to continue to optimize for vent wean. -Vent settings adjusted to allow for prolonged I to E ratio. Gastrointestinal: -Polyethylene Glycol for constipation Infectious Disease: -ID onboard: Dr. Khan -h/o HIV: continue HAART Therapy per ID -worsening leukocytosis today; afebrile -BCx w/ Gm + cocci in clusters in 1 bottle -Sputum culture grew Pseudomonas and MSSA -on empiric Vanc and Zosyn. FEN: -No fluids indicated -lytes WNL -Tube Feed per dietary Prophylaxis: -DVT: Heparin sq 5k units q8h -GI: Pantoprazole Dispo -continue to monitor in ICU Visit type - Emergency Visit Emergency Visit: Yes ED Registration Date: 08/08/18 Care time: The patient presented to the Emergency Department on the above date and was hospitalized for further evaluation of their emergent condition. - New Patient This patient is new to me today: No - Critical Care Critical Care patient: Yes Total Critical Care Time (in minutes): 40 Critical Care Statement: The care of this patient involved high complexity decision making to prevent further life threatening deterioration of the patient 's condition and/or to evaluate & treat vital organ system(s) failure or risk of failure. - Discharge Referral Referred to [facility] No
[2018-08-17] MEDS ORDERED: fentaNYL CITRATE 250 MCG/5 ML VIAL ONE ×4 (07:44→23:59)
[2018-08-17] MEDS: FENTANYL INJECTION 500 MCG in DEXTROSE 5%-WATER - 90 ML IVPB SCH ×3 (07:55→18:27)
[2018-08-17] MEDS: LOSARTAN POTASSIUM 50 MG TABLET (FP) PO SCH (09:13)
[2018-08-17] MEDS: CLOPIDOGREL BISULFATE 75 MG TABLET (FP) PO SCH (09:13)
[2018-08-17] MEDS: PANTOPRAZOLE SODIUM 40 MG VIAL IVPUSH SCH (09:14)
[2018-08-17] MEDS: RANOLAZINE E.R. 500 MG TABLET (FP) PO SCH ×2 (09:15→21:52)
[2018-08-17] MEDS: ALBUTEROL SO4 0.083% IH SOL 2.5 MG/3 ML VIAL.NEB. NEB SCH ×2 (09:15→13:14)
[2018-08-17] MEDS: POLYETHYLENE GLYCOL 3350 119 GM BTL NGT SCH (09:15)
[2018-08-17] MEDS: CARVEDILOL 12.5 MG TABLET (FP) PO SCH ×2 (09:19→21:52)
[2018-08-17] MEDS: SPIRONOLACTONE 25 MG TABLET (FP) NGT SCH (09:19)
[2018-08-17] MEDS: ABACAVIR/DOLUTEGRAVIR/LAMIVUDI (TRIUMEQ) TABLET -NF PO SCH (09:21)
--- NOTE | 2018-08-17 12:24 | PN ---
Progress Note, Physician History of Present Illness: Remains sedated and intubated on ventilator support, tolerating enteral feeds, hemodynamics stable. - Current Medication List Current Medications: Active Medications Abacavir/Dolutegravir/Lamivudine (Triumeq (Non-Formulary)) 1 each PO DAILY [facility] Last Admin: 08/17/18 09:21 Dose: 1 each Acetaminophen (Tylenol Oral Solution -) 1,000 mg PO Q6H PRN PRN Reason: FEVER Albuterol Sulfate (Ventolin 0.083% Nebulizer Soln -) 1 amp NEB Q4H PRN PRN Reason: SHORT OF BREATH/WHEEZING Albuterol/Ipratropium (Duoneb -) 1 amp NEB RQID [facility] Carvedilol (Coreg -) 12.5 mg PO BID [facility] Last Admin: 08/17/18 09:19 Dose: 12.5 mg Clopidogrel Bisulfate (Plavix -) 75 mg PO DAILY [facility] Last Admin: 08/17/18 09:13 Dose: 75 mg Heparin Sodium (Porcine) (Heparin -) 5,000 unit SQ TID [facility] Hydralazine HCl (Apresoline -) 50 mg NGT TID [facility] Last Admin: 08/17/18 06:25 Dose: 50 mg Propofol (Diprivan -) 1,000,000 mcg in 100 mls @ 1.66 mls/hr IVPB TITR [facility]; Protocol Last Admin: 08/17/18 12:15 Dose: 50 mcg/kg/min, 16.601 mls/hr Fentanyl 500 mcg/ Dextrose 100 mls @ 5 mls/hr IVPB TITR [facility]; Protocol Last Admin: 08/17/18 12:15 Dose: 110 mcg/hr, 22 mls/hr Vancomycin HCl (Vancomycin 1 Gm Premix -) 1 gm in 200 mls @ 133.333 mls/hr IVPB BID@0700,1900 [facility]; Protocol Last Admin: 08/17/18 06:27 Dose: 133.333 mls/hr Piperacillin Sod/Tazobactam (Sod 3.375 gm/ Dextrose) 50 mls @ 100 mls/hr IVPB Q8H-IV [facility]; Protocol Last Admin: 08/17/18 09:08 Dose: 100 mls/hr Losartan Potassium (Cozaar -) 50 mg PO BID [facility] Last Admin: 08/17/18 09:13 Dose: 50 mg Methylprednisolone Sodium Succinate (Solu-Medrol -) 40 mg IVPUSH Q8H-IV [facility] Midazolam HCl (Versed -) 2 mg IVPUSH Q3H PRN PRN Reason: AGITATION Last Admin: 08/17/18 09:09 Dose: 2 mg Pantoprazole Sodium (Protonix Iv) 40 mg IVPUSH DAILY [facility] Last Admin: 08/17/18 09:14 Dose: 40 mg Polyethylene Glycol (Miralax (For Daily Use) -) 17 gm NGT DAILY [facility] Last Admin: 08/17/18 09:15 Dose: Not Given Ranolazine (Ranexa -) 500 mg PO BID [facility] Last Admin: 08/17/18 09:15 Dose: 500 mg Spironolactone (Aldactone -) 25 mg NGT DAILY [facility] Last Admin: 08/17/18 09:19 Dose: 25 mg - Objective Vital Signs: Vital Signs Temperature 98 F 08/17/18 06:00 Pulse Rate 98 H 08/17/18 08:00 Respiratory Rate 16 08/17/18 09:00 Blood Pressure 138/77 08/17/18 08:00 O2 Sat by Pulse Oximetry (%) 97 08/16/18 20:42 Constitutional: Yes: No Distress, Calm, Thin Neck: Yes: Supple Cardiovascular: Yes: Regular Rate and Rhythm Respiratory: Yes: Intubated, Mechanically Ventilated, Rhonchi Gastrointestinal: Yes: Normal Bowel Sounds, Soft Edema: No Labs: CBC, BMP 08/17/18 05:30 08/17/18 05:30 INR, PTT INR 1.49 (0.83-1.09) H 08/08/18 19:37 - ....Imaging Chest X-ray: Report Reviewed (Congestion) Problem List - Problems (1) Altered mental status, unspecified Code(s): R41.82 - ALTERED MENTAL STATUS, UNSPECIFIED Qualifiers: Altered mental status type: somnolence Qualified Code(s): R40.0 - Somnolence (2) CHF (congestive heart failure) Code(s): I50.9 - HEART FAILURE, UNSPECIFIED Qualifiers: Heart failure type: diastolic Heart failure chronicity: chronic Qualified Code(s): I50.32 - Chronic diastolic (congestive) heart failure (3) COPD with acute exacerbation Code(s): J44.1 - CHRONIC OBSTRUCTIVE PULMONARY DISEASE W (ACUTE) EXACERBATION (4) Elevated troponin I level Code(s): R74.8 - ABNORMAL LEVELS OF OTHER SERUM ENZYMES (5) Respiratory acidosis Code(s): E87.2 - ACIDOSIS (6) CAD (coronary artery disease) Code(s): I25.10 - ATHSCL HEART DISEASE OF [place] CORONARY ARTERY W/O ANG PCTRS Qualifiers: Coronary Disease-Associated Artery/Lesion type: [place] artery [place] vs. transplanted heart: [place] heart Associated angina: without angina Qualified Code(s): I25.10 - Atherosclerotic heart disease of [place] coronary artery without angina pectoris (7) Asymptomatic cholelithiasis Code(s): K80.20 - CALCULUS OF GALLBLADDER W/O CHOLECYSTITIS W/O OBSTRUCTION (8) Cor pulmonale, chronic Code(s): I27.81 - COR PULMONALE (CHRONIC) (9) HIV Code(s): Z21 - ASYMPTOMATIC HUMAN IMMUNODEFICIENCY VIRUS INFECTION STATUS (10) HTN (hypertension) Code(s): I10 - ESSENTIAL (PRIMARY) HYPERTENSION Qualifiers: Hypertension type: essential hypertension Qualified Code(s): I10 - Essential (primary) hypertension (11) Hyperlipidemia Code(s): E78.5 - HYPERLIPIDEMIA, UNSPECIFIED Qualifiers: Hyperlipidemia type: pure hypercholesterolemia Qualified Code(s): E78.00 - Pure hypercholesterolemia, unspecified; E78.0 - Pure hypercholesterolemia (12) PVD (peripheral vascular disease) Code(s): I73.9 - PERIPHERAL VASCULAR DISEASE, UNSPECIFIED (13) S/P CABG (coronary artery bypass graft) Code(s): Z95.1 - PRESENCE OF AORTOCORONARY BYPASS GRAFT Assessment/Plan Echo: 07/06/2018 Mod cLVH with preserved LV fxn, mod-severe RITIKA, severe TR, RVSP >60, RV volume overload with mod decreased RV fxn 1. Acute on chronic hypercapneic/hypoxemic respiratory failure - mechanical ventilation 2. Acute exacerbation of chronic obstructive pulmonary disease 3. Right Heart Failure/Volume Overload with Severe Pulmonary HTN 4. Diastolic dysfunction 5. CAD s/p CABG, demand ischemia 7. HTN 8. Hypercholesterolemia 9. HIV and Hepatitis C 10. PAD s/p SFA stent 11. Pre-renal Acute on CKD improving, hyperkalemia and hyponatremia 12. Toxic metabolic encephelopathy 13. Cholelithiasis PLAN: 1. Continue Aldactone 25 mg QD and Losartan 50 mg BID as tolerated 2. Continue Carvedilol 12.5 mg BID, Plavix 75 mg QD, Hydralazine 50 mg TID, Lipitor 10 mg QD and Ranexa 500 mg BID as tolerated (via NG) 3. IV steroid, bronchodilator and vent management as per critical care team. 4. Continue antibiotic coverage 5. DVT prophylaxis and enteral feeds
[2018-08-17 12:40] LABS: ANISOCYTOSIS 1+; MACROCYTOSIS 0; PLATELET ESTIMATE NORMAL; TARGET CELLS 1+; TEAR DROP CELLS 1+
--- NOTE | 2018-08-17 12:43 | PN ---
Teaching Attending Note Name of Resident: Pino Saucedo ATTENDING PHYSICIAN STATEMENT I saw and evaluated the patient. I reviewed the resident's note and discussed the case with the resident. I agree with the resident's findings and plan as documented. SUBJECTIVE: Pt seen and examined in the ICU. Remains intubated, sedated. Tachypneic on sedation and assist control. No fevers overnight. OBJECTIVE: Vital Signs Period Temp Pulse Resp BP Sys/Buck Pulse Ox Last 24 Hr 97.8 F-99.8 F 81-98 16-29 92-161/56-110 97-97 Intake & Output 08/14/18 08/15/18 08/16/18 08/17/18 23:59 23:59 23:59 23:59 Intake Total 1663 3210 3834 1715 Output Total 3000 1500 1900 500 Balance -1337 1710 1934 1215 Weight 53.8 kg 54.6 kg 54.6 kg Gen: intubated, sedated, tachypneic Heart: RRR Lung: scattered rhonchi, wheezes Abd: soft, nontender Ext: no edema CBC, BMP 08/17/18 05:30 08/17/18 05:30 Active Medications Abacavir/Dolutegravir/Lamivudine (Triumeq (Non-Formulary)) 1 each PO DAILY [facility] Last Admin: 08/17/18 09:21 Dose: 1 each Acetaminophen (Tylenol Oral Solution -) 1,000 mg PO Q6H PRN PRN Reason: FEVER Albuterol Sulfate (Ventolin 0.083% Nebulizer Soln -) 1 amp NEB Q4H PRN PRN Reason: SHORT OF BREATH/WHEEZING Albuterol/Ipratropium (Duoneb -) 1 amp NEB RQID [facility] Carvedilol (Coreg -) 12.5 mg PO BID [facility] Last Admin: 08/17/18 09:19 Dose: 12.5 mg Clopidogrel Bisulfate (Plavix -) 75 mg PO DAILY [facility] Last Admin: 08/17/18 09:13 Dose: 75 mg Heparin Sodium (Porcine) (Heparin -) 5,000 unit SQ TID [facility] Hydralazine HCl (Apresoline -) 50 mg NGT TID [facility] Last Admin: 08/17/18 06:25 Dose: 50 mg Propofol (Diprivan -) 1,000,000 mcg in 100 mls @ 1.66 mls/hr IVPB TITR [facility]; Protocol Last Admin: 08/17/18 12:15 Dose: 50 mcg/kg/min, 16.601 mls/hr Fentanyl 500 mcg/ Dextrose 100 mls @ 5 mls/hr IVPB TITR [facility]; Protocol Last Admin: 08/17/18 12:15 Dose: 110 mcg/hr, 22 mls/hr Vancomycin HCl (Vancomycin 1 Gm Premix -) 1 gm in 200 mls @ 133.333 mls/hr IVPB BID@0700,1900 [facility]; Protocol Last Admin: 08/17/18 06:27 Dose: 133.333 mls/hr Piperacillin Sod/Tazobactam (Sod 3.375 gm/ Dextrose) 50 mls @ 100 mls/hr IVPB Q8H-IV [facility]; Protocol Last Admin: 08/17/18 09:08 Dose: 100 mls/hr Losartan Potassium (Cozaar -) 50 mg PO BID [facility] Last Admin: 08/17/18 09:13 Dose: 50 mg Methylprednisolone Sodium Succinate (Solu-Medrol -) 40 mg IVPUSH Q8H-IV [facility] Midazolam HCl (Versed -) 2 mg IVPUSH Q3H PRN PRN Reason: AGITATION Last Admin: 08/17/18 09:09 Dose: 2 mg Pantoprazole Sodium (Protonix Iv) 40 mg IVPUSH DAILY [facility] Last Admin: 08/17/18 09:14 Dose: 40 mg Polyethylene Glycol (Miralax (For Daily Use) -) 17 gm NGT DAILY [facility] Last Admin: 08/17/18 09:15 Dose: Not Given Ranolazine (Ranexa -) 500 mg PO BID [facility] Last Admin: 08/17/18 09:15 Dose: 500 mg Spironolactone (Aldactone -) 25 mg NGT DAILY [facility] Last Admin: 08/17/18 09:19 Dose: 25 mg ASSESSMENT AND PLAN: Acute on Chronic Hypoxic and Hypercapneic Respiratory Failure Acute COPD Exacerbation Pneumonia Volume Overload Pulmonary HTN LV Diastolic Dysfunction CAD s/p CABG +Troponins likely [place] Ischemia PAD HIV Hep C HTN Hypercholesterolemia - continue antibiotics - send for C diff if diarrhea - reculture if febrile - decrease medrol - inhaled bronchodilators - taper FiO2 to keep SpO2 >90% - increase sedation for vent synchrony - check ABG - if work of breathing improved, can lighten sedation in AM to assess mental status - spontaneous breathing trials as tolerated when mental status improved - enteral feeds - DVT/GI prophylaxis - continue ICU monitoring critical care time spent in reviewing chart, evaluating patient and formulating plan 35 min
--- NOTE | 2018-08-17 13:15 | PN ---
Progress Note, Physician History of Present Illness: Pt seen and examined at bedside. She remains in the ICU. She remains intubated. - Current Medication List Current Medications: Active Medications Abacavir/Dolutegravir/Lamivudine (Triumeq (Non-Formulary)) 1 each PO DAILY [facility] Last Admin: 08/17/18 09:21 Dose: 1 each Acetaminophen (Tylenol Oral Solution -) 1,000 mg PO Q6H PRN PRN Reason: FEVER Albuterol Sulfate (Ventolin 0.083% Nebulizer Soln -) 1 amp NEB Q4H PRN PRN Reason: SHORT OF BREATH/WHEEZING Albuterol/Ipratropium (Duoneb -) 1 amp NEB RQID [facility] Carvedilol (Coreg -) 12.5 mg PO BID [facility] Last Admin: 08/17/18 09:19 Dose: 12.5 mg Clopidogrel Bisulfate (Plavix -) 75 mg PO DAILY [facility] Last Admin: 08/17/18 09:13 Dose: 75 mg Heparin Sodium (Porcine) (Heparin -) 5,000 unit SQ TID [facility] Hydralazine HCl (Apresoline -) 50 mg NGT TID [facility] Last Admin: 08/17/18 06:25 Dose: 50 mg Propofol (Diprivan -) 1,000,000 mcg in 100 mls @ 1.66 mls/hr IVPB TITR [facility]; Protocol Last Admin: 08/17/18 12:15 Dose: 50 mcg/kg/min, 16.601 mls/hr Fentanyl 500 mcg/ Dextrose 100 mls @ 5 mls/hr IVPB TITR [facility]; Protocol Last Admin: 08/17/18 12:15 Dose: 110 mcg/hr, 22 mls/hr Vancomycin HCl (Vancomycin 1 Gm Premix -) 1 gm in 200 mls @ 133.333 mls/hr IVPB BID@0700,1900 [facility]; Protocol Last Admin: 08/17/18 06:27 Dose: 133.333 mls/hr Piperacillin Sod/Tazobactam (Sod 3.375 gm/ Dextrose) 50 mls @ 100 mls/hr IVPB Q8H-IV [facility]; Protocol Last Admin: 08/17/18 09:08 Dose: 100 mls/hr Losartan Potassium (Cozaar -) 50 mg PO BID [facility] Last Admin: 08/17/18 09:13 Dose: 50 mg Methylprednisolone Sodium Succinate (Solu-Medrol -) 40 mg IVPUSH Q8H-IV [facility] Midazolam HCl (Versed -) 2 mg IVPUSH Q3H PRN PRN Reason: AGITATION Last Admin: 08/17/18 09:09 Dose: 2 mg Pantoprazole Sodium (Protonix Iv) 40 mg IVPUSH DAILY [facility] Last Admin: 08/17/18 09:14 Dose: 40 mg Polyethylene Glycol (Miralax (For Daily Use) -) 17 gm NGT DAILY [facility] Last Admin: 08/17/18 09:15 Dose: Not Given Ranolazine (Ranexa -) 500 mg PO BID [facility] Last Admin: 08/17/18 09:15 Dose: 500 mg Spironolactone (Aldactone -) 25 mg NGT DAILY [facility] Last Admin: 08/17/18 09:19 Dose: 25 mg - Objective Vital Signs: Vital Signs Temperature 98 F 08/17/18 06:00 Pulse Rate 98 H 08/17/18 08:00 Respiratory Rate 16 08/17/18 09:00 Blood Pressure 138/77 08/17/18 08:00 O2 Sat by Pulse Oximetry (%) 97 08/16/18 20:42 Constitutional: Yes: Calm Eyes: Yes: Conjunctiva Clear HENT: Yes: Atraumatic Cardiovascular: Yes: S1, S2 Respiratory: Yes: Mechanically Ventilated Gastrointestinal: Yes: Soft Genitourinary: Yes: Torres Present Musculoskeletal: Yes: Muscle Weakness Edema: No Neurological: Yes: Other (sedated) Labs: CBC, BMP 08/17/18 05:30 08/17/18 05:30 INR, PTT INR 1.49 (0.83-1.09) H 08/08/18 19:37 Problem List - Problems (1) Acute renal failure Code(s): N17.9 - ACUTE KIDNEY FAILURE, UNSPECIFIED Qualifiers: Qualified Code(s): N17.9 - Acute kidney failure, unspecified (2) Altered mental status, unspecified Code(s): R41.82 - ALTERED MENTAL STATUS, UNSPECIFIED Qualifiers: Qualified Code(s): R40.0 - Somnolence (3) CHF (congestive heart failure) Code(s): I50.9 - HEART FAILURE, UNSPECIFIED Qualifiers: Qualified Code(s): I50.32 - Chronic diastolic (congestive) heart failure (4) COPD with acute exacerbation Code(s): J44.1 - CHRONIC OBSTRUCTIVE PULMONARY DISEASE W (ACUTE) EXACERBATION (5) Hyperkalemia Code(s): E87.5 - HYPERKALEMIA Assessment/Plan Current Medications Generic Name Dose Route Start Last Admin Trade Name Freq PRN Reason Stop Dose Admin Abacavir/Dolutegravir/Lamivudine 1 each 08/10/18 14:00 08/17/18 09:21 Triumeq (Non-Formulary) PO 1 each DAILY [facility] Administration Acetaminophen 1,000 mg 08/16/18 16:11 Tylenol Oral Solution - PO Q6H PRN FEVER Albuterol Sulfate 1 amp 08/15/18 12:32 Ventolin 0.083% Nebulizer Soln - NEB Q4H PRN SHORT OF BREATH/WHEEZING Albuterol/Ipratropium 1 amp 08/17/18 16:00 Duoneb - NEB RQID [facility] Carvedilol 12.5 mg 08/10/18 10:00 08/17/18 09:19 Coreg - PO 12.5 mg BID [facility] Administration Clopidogrel Bisulfate 75 mg 08/10/18 10:00 08/17/18 09:13 Plavix - PO 75 mg DAILY [facility] Administration Heparin Sodium (Porcine) 5,000 unit 08/17/18 14:00 Heparin - SQ TID [facility] Hydralazine HCl 50 mg 08/11/18 14:08 08/17/18 06:25 Apresoline - NGT 50 mg TID [facility] Administration Propofol 1,000,000 mcg in 100 mls @ 1.66 mls/hr 08/10/18 19:30 08/17/18 12:15 Diprivan - IVPB 50 mcg/kg/min TITR [facility] 16.601 mls/hr Administration Protocol 5 MCG/KG/MIN Fentanyl 500 mcg/ Dextrose 100 mls @ 5 mls/hr 08/10/18 20:15 08/17/18 12:15 IVPB 110 mcg/hr TITR [facility] 22 mls/hr Administration Protocol 25 MCG/HR Vancomycin HCl 1 gm in 200 mls @ 133.333 mls/hr 08/15/18 19:00 08/17/18 06:27 Vancomycin 1 Gm Premix - IVPB 133.333 mls/hr BID@0700,1900 [facility] Administration Protocol Piperacillin Sod/Tazobactam 50 mls @ 100 mls/hr 08/15/18 18:00 08/17/18 09:08 Sod 3.375 gm/ Dextrose IVPB 100 mls/hr Q8H-IV [facility] Administration Protocol Losartan Potassium 50 mg 08/11/18 13:00 08/17/18 09:13 Cozaar - PO 50 mg BID [facility] Administration Methylprednisolone Sodium Succinate 40 mg 08/17/18 12:15 Solu-Medrol - IVPUSH Q8H-IV [facility] Midazolam HCl 2 mg 08/14/18 20:55 08/17/18 09:09 Versed - IVPUSH 2 mg Q3H PRN Administration AGITATION Pantoprazole Sodium 40 mg 08/11/18 13:15 08/17/18 09:14 Protonix Iv IVPUSH 40 mg DAILY [facility] Administration Polyethylene Glycol 17 gm 08/15/18 13:30 08/17/18 09:15 Miralax (For Daily Use) - NGT Not Given DAILY [facility] Ranolazine 500 mg 08/10/18 11:30 08/17/18 09:15 Ranexa - PO 500 mg BID [facility] Administration Spironolactone 25 mg 08/11/18 14:15 08/17/18 09:19 Aldactone - NGT 25 mg DAILY [facility] Administration Impression 1. KRISTIAN 2. Hyperkalemia 3. HIV 4. hyponatremia 5. altered mental status 6. pulm HTN 7. htn 8. pvd 9. resp acidosis 10. resp failure requiring intubation Plan - monitor renal function - steroids can contribute to elevated bun - sodium stable - pt tolerating feeds - vent support
[2018-08-17 13:41] LABS: ARTERIAL BLD GAS O2 SATURATION 88.6 % (95-98); ARTERIAL BLOOD GAS PCO2 63.9 mmHg (35-45); ARTERIAL BLOOD GAS PO2 59.5 mmHg (80-105); ARTERIAL BLOOD GAS pH 7.36 (7.35-7.45)
[2018-08-17 13:44] LABS: ALLENS TEST POSITIVE
[2018-08-17] MEDS: HEPARIN NA (PORCINE) 5,000 UNITS/ML 1ML VIAL SQ SCH ×2 (14:14→21:52)
[2018-08-17] MEDS ORDERED: MIDAZOLAM 100 MG/100 ML MG IVPB ONE (15:21)
[2018-08-17] MEDS: MIDAZOLAM 100 MG in SODIUM CHLORIDE 100 ML IVPB SCH (15:28)
--- NOTE | 2018-08-17 16:35 | PN ---
Progress Note, Physician History of Present Illness: intubated - Current Medication List Current Medications: Active Medications Abacavir/Dolutegravir/Lamivudine (Triumeq (Non-Formulary)) 1 each PO DAILY [facility] Last Admin: 08/17/18 09:21 Dose: 1 each Acetaminophen (Tylenol Oral Solution -) 1,000 mg PO Q6H PRN PRN Reason: FEVER Albuterol Sulfate (Ventolin 0.083% Nebulizer Soln -) 1 amp NEB Q4H PRN PRN Reason: SHORT OF BREATH/WHEEZING Albuterol/Ipratropium (Duoneb -) 1 amp NEB RQID [facility] Carvedilol (Coreg -) 12.5 mg PO BID [facility] Last Admin: 08/17/18 09:19 Dose: 12.5 mg Chlorhexidine Gluconate (Peridex -) 15 ml MM BID [facility] Clopidogrel Bisulfate (Plavix -) 75 mg PO DAILY [facility] Last Admin: 08/17/18 09:13 Dose: 75 mg Heparin Sodium (Porcine) (Heparin -) 5,000 unit SQ TID [facility] Last Admin: 08/17/18 14:14 Dose: 5,000 unit Hydralazine HCl (Apresoline -) 50 mg NGT TID [facility] Last Admin: 08/17/18 14:14 Dose: 50 mg Propofol (Diprivan -) 1,000,000 mcg in 100 mls @ 1.66 mls/hr IVPB TITR [facility]; Protocol Last Admin: 08/17/18 12:15 Dose: 50 mcg/kg/min, 16.601 mls/hr Fentanyl 500 mcg/ Dextrose 100 mls @ 5 mls/hr IVPB TITR [facility]; Protocol Last Admin: 08/17/18 12:15 Dose: 110 mcg/hr, 22 mls/hr Vancomycin HCl (Vancomycin 1 Gm Premix -) 1 gm in 200 mls @ 133.333 mls/hr IVPB BID@0700,1900 [facility]; Protocol Last Admin: 08/17/18 06:27 Dose: 133.333 mls/hr Piperacillin Sod/Tazobactam (Sod 3.375 gm/ Dextrose) 50 mls @ 100 mls/hr IVPB Q8H-IV [facility]; Protocol Last Admin: 08/17/18 09:08 Dose: 100 mls/hr Midazolam HCl 100 mg/ Sodium (Chloride) 100 mls @ 1 mls/hr IVPB TITR [facility]; Protocol Last Admin: 08/17/18 15:28 Dose: 1 mg/hr, 1 mls/hr Losartan Potassium (Cozaar -) 50 mg PO BID [facility] Last Admin: 08/17/18 09:13 Dose: 50 mg Methylprednisolone Sodium Succinate (Solu-Medrol -) 40 mg IVPUSH Q8H-IV [facility] Last Admin: 08/17/18 14:15 Dose: 40 mg Midazolam HCl (Versed -) 2 mg IVPUSH Q3H PRN PRN Reason: AGITATION Last Admin: 08/17/18 12:00 Dose: 2 mg Mupirocin (Bactroban Ointment (For Decolonization) -) 1 applic NS BID [facility] Stop: 08/22/18 21:59 Pantoprazole Sodium (Protonix Iv) 40 mg IVPUSH DAILY [facility] Last Admin: 08/17/18 09:14 Dose: 40 mg Polyethylene Glycol (Miralax (For Daily Use) -) 17 gm NGT DAILY [facility] Last Admin: 08/17/18 09:15 Dose: Not Given Ranolazine (Ranexa -) 500 mg PO BID [facility] Last Admin: 08/17/18 09:15 Dose: 500 mg Spironolactone (Aldactone -) 25 mg NGT DAILY [facility] Last Admin: 08/17/18 09:19 Dose: 25 mg - Objective Vital Signs: Vital Signs Temperature 99.1 F 08/17/18 14:00 Pulse Rate 92 H 08/17/18 16:00 Respiratory Rate 27 H 08/17/18 16:00 Blood Pressure 121/74 08/17/18 16:00 O2 Sat by Pulse Oximetry (%) 97 08/16/18 20:42 Constitutional: Yes: No Distress HENT: Yes: Atraumatic Neck: Yes: Supple Cardiovascular: Yes: Regular Rate and Rhythm Respiratory: Yes: CTA Bilaterally Gastrointestinal: Yes: Normal Bowel Sounds Extremities: Yes: WNL Edema: No Peripheral Pulses WNL: Yes Neurological: Yes: Other (intubated and sedated) Labs: CBC, BMP 08/17/18 05:30 08/17/18 05:30 INR, PTT INR 1.49 (0.83-1.09) H 08/08/18 19:37 Problem List - Problems (1) Acute renal failure Assessment/Plan: monitor Code(s): N17.9 - ACUTE KIDNEY FAILURE, UNSPECIFIED Qualifiers: Acute renal failure type: unspecified Qualified Code(s): N17.9 - Acute kidney failure, unspecified (2) Altered mental status, unspecified Code(s): R41.82 - ALTERED MENTAL STATUS, UNSPECIFIED Qualifiers: Altered mental status type: somnolence Qualified Code(s): R40.0 - Somnolence (3) COPD with acute exacerbation Assessment/Plan: steroids duo nebs INTUBATED Code(s): J44.1 - CHRONIC OBSTRUCTIVE PULMONARY DISEASE W (ACUTE) EXACERBATION (4) Elevated troponin I level Code(s): R74.8 - ABNORMAL LEVELS OF OTHER SERUM ENZYMES (5) Hyperkalemia Code(s): E87.5 - HYPERKALEMIA (6) COPD (chronic obstructive pulmonary disease) Code(s): J44.9 - CHRONIC OBSTRUCTIVE PULMONARY DISEASE, UNSPECIFIED Qualifiers: (7) HIV Assessment/Plan: continue home meds Code(s): Z21 - ASYMPTOMATIC HUMAN IMMUNODEFICIENCY VIRUS INFECTION STATUS (8) HTN (hypertension) Assessment/Plan: monitor on meds Code(s): I10 - ESSENTIAL (PRIMARY) HYPERTENSION Qualifiers: Hypertension type: essential hypertension Qualified Code(s): I10 - Essential (primary) hypertension (9) Hyperlipidemia Code(s): E78.5 - HYPERLIPIDEMIA, UNSPECIFIED Qualifiers: Hyperlipidemia type: pure hypercholesterolemia Qualified Code(s): E78.00 - Pure hypercholesterolemia, unspecified; E78.0 - Pure hypercholesterolemia (10) PVD (peripheral vascular disease) Code(s): I73.9 - PERIPHERAL VASCULAR DISEASE, UNSPECIFIED (11) CHF (congestive heart failure) Code(s): I50.9 - HEART FAILURE, UNSPECIFIED Qualifiers: Heart failure type: diastolic Heart failure chronicity: chronic Qualified Code(s): I50.32 - Chronic diastolic (congestive) heart failure Assessment/Plan cc time in icu 35 min
[2018-08-17] MEDS: ALBUTEROL SO4 2.5/IPRATROPIUM 0.5 INH SOL 3 ML VIAL.NEB. NEB SCH ×2 (17:41→21:36)
[2018-08-17] MEDS: CHLORHEXIDINE GLUCONATE 0.12% 15ML CUP MM SCH (21:53)
[2018-08-18] MEDS: PROPOFOL 1,000,000 MCG/100 ML VIAL IVPB SCH ×2 (00:43→18:07)
[2018-08-18] MEDS: FENTANYL INJECTION 500 MCG in DEXTROSE 5%-WATER - 90 ML IVPB SCH ×3 (00:43→20:30)
[2018-08-18] MEDS: MUPIROCIN 2% TOPICAL OINTMENT FOR DECOLONIZATION NS SCH ×3 (00:44→21:23)
[2018-08-18] MEDS: LOSARTAN POTASSIUM 50 MG TABLET (FP) PO SCH ×3 (00:44→21:20)
[2018-08-18] MEDS: hydrALAZINE HCL 50 MG TABLET (FP) NGT SCH ×4 (00:44→21:20)
[2018-08-18] MEDS ORDERED: DEXTROSE 5%-WATER - 50 ML IVPB ONE ×3 (01:24→17:15)
[2018-08-18] MEDS ORDERED: PIPERACILLIN/TAZOBACTAM 3.375 GM VIAL IVPB ONE ×3 (01:24→17:15)
[2018-08-18] MEDS: methylPREDNISolone NA SUCC 40 MG/1 ML VIAL IVPUSH SCH ×3 (01:28→17:17)
[2018-08-18] MEDS: PIPERACILLIN/TAZOB 3.375 GM 3.375 GM in DEXTROSE 5%-WATER - 50 ML IVPB SCH ×3 (01:28→17:18)
[2018-08-18] MEDS ORDERED: fentaNYL CITRATE 250 MCG/5 ML VIAL ONE ×3 (06:16→21:15)
[2018-08-18] MEDS: HEPARIN NA (PORCINE) 5,000 UNITS/ML 1ML VIAL SQ SCH ×3 (06:25→21:20)
[2018-08-18] MEDS ORDERED: dilTIAZem HCL 25 MG/5 ML - 5 ML VIAL ONE (06:29)
[2018-08-18] MEDS: VANCOMYCIN 1 GM PREMIX - 1 GM/200 ML BAG IVPB SCH ×2 (06:30→18:01)
[2018-08-18 06:32] LABS: BASO % 0.4 % (0-2.0); HEMATOCRIT 29.2 % (32.4-45.2); HEMOGLOBIN 9.5 GM/dL (10.7-15.3); LYMPH % 1.3 % (8-40); MCH 30.8 pg (25.7-33.7); MCHC 32.7 g/dl (32.0-36.0); MEAN CELL VOLUME 94.2 fl (80-96); MEAN PLT VOLUME 9.3 fl (7.5-11.1); MONO % 7.8 % (3.8-10.2); NEUT % 90.5 % (42.8-82.8); PLATELET COUNT 214 K/MM3 (134-434); RDW 15.5 % (11.6-15.6)
[2018-08-18 06:46] LABS: WHITE BLOOD COUNT 30.1 K/mm3 (4.0-10.0)
[2018-08-18 06:54] LABS: ANION GAP 4 MMOL/L (8-16); BLOOD UREA NITROGEN 40 mg/dL (7-18); CALCIUM 9.1 mg/dL (8.5-10.1); CHLORIDE 101 mmol/L (98-107); CO2 37 mmol/L (21-32); CREATININE 0.8 mg/dL (0.55-1.3); GLUCOSE,RANDOM 248 mg/dL (74-106); MAGNESIUM 1.9 mg/dL (1.8-2.4); PHOSPHOROUS 2.7 mg/dL (2.5-4.9); POTASSIUM 4.4 mmol/L (3.5-5.1); SODIUM 142 mmol/L (136-145)
--- NOTE | 2018-08-18 08:14 | PN ---
Physical Exam: SUBJECTIVE: Patient seen and examined HD# 10 Overnight Events: No acute events overnight. Pt became very agitated and tachypneic during sedation wean yesterday and again this morning. OBJECTIVE: Lines: - PIV Drains: - NG - Torres Supplemental Oxygen: Ventilator: Mode: AC Vent rate: 16 Tv: 350 PEEP: 5 FiO2: 40 Intake & Output 08/15/18 08/16/18 08/17/18 08/18/18 23:59 23:59 23:59 23:59 Intake Total 3210 3834 3465.2 742 Output Total 1500 1900 2150 450 Balance 1710 1934 1315.2 292 Weight 53.8 kg 54.6 kg 54.6 kg 54.9 kg Vital Signs Period Temp Pulse Resp BP Sys/Buck Pulse Ox Last 24 Hr 99.1 F-100.5 F 77-97 16-27 89-155/56-87 94 GENERAL: The patient is sedated and intubated. HEAD: Normal with no signs of trauma. EYES: Closed. LUNGS: Intubated and mechanically ventilated. Breath sounds equal, with trace diffuse rhonchi. No wheezes or rales. HEART: Regular rate and rhythm, S1, S2 without murmur, rub or gallop. ABDOMEN: Soft and nondistended. EXTREMITIES: 2+ pulses, warm, well-perfused, no edema. SKIN: Warm and dry Laboratory Results - last 24 hr 08/17/18 08/17/18 08/18/18 05:30 13:35 05:30 WBC 30.1 H* RBC 3.10 L Hgb 9.5 L Hct 29.2 L MCV 94.2 MCH 30.8 MCHC 32.7 RDW 15.5 Plt Count 214 MPV 9.3 Absolute Neuts (auto) 27.3 H Neutrophils % 90.5 H Neutrophils % (Manual) 92.9 H Band Neutrophils % 2.0 Lymphocytes % 1.3 L Lymphocytes % (Manual) 0.0 L Monocytes % 7.8 Monocytes % (Manual) 3 L Eosinophils % 0.0 Eosinophils % (Manual) 0.0 D Basophils % 0.4 D Basophils % (Manual) 0.0 Myelocytes % (Man) 0 Promyelocytes % (Man) 0 Blast Cells % (Manual) 0 Nucleated RBC % 0 Metamyelocytes 2 D Hypochromia 1+ Platelet Estimate Normal Polychromasia 1+ Poikilocytosis 1+ Anisocytosis 1+ Microcytosis 1+ Macrocytosis 0 Spherocytes 1+ Target Cells 1+ Tear Drop Cells 1+ Stomatocytes 1+ Puncture Site Right radial ABG pH 7.36 ABG pCO2 at Pt Temp 63.9 H ABG pO2 at Pt Temp 59.5 L ABG HCO3 34.9 H ABG O2 Sat (Measured) 88.6 L ABG O2 Content 13.8 L ABG Base Excess 8.0 H Trevor Test Positive O2 Delivery Device Mec. vent Oxygen Flow Rate 40 Vent Mode B/c Vent Rate 16 PEEP 5.0 Pressure Support Vent 350 Sodium Potassium Chloride Carbon Dioxide Anion Gap BUN Creatinine Creat Clearance w eGFR Random Glucose Calcium Phosphorus Magnesium 08/18/18 05:30 WBC RBC Hgb Hct MCV MCH MCHC RDW Plt Count MPV Absolute Neuts (auto) Neutrophils % Neutrophils % (Manual) Band Neutrophils % Lymphocytes % Lymphocytes % (Manual) Monocytes % Monocytes % (Manual) Eosinophils % Eosinophils % (Manual) Basophils % Basophils % (Manual) Myelocytes % (Man) Promyelocytes % (Man) Blast Cells % (Manual) Nucleated RBC % Metamyelocytes Hypochromia Platelet Estimate Polychromasia Poikilocytosis Anisocytosis Microcytosis Macrocytosis Spherocytes Target Cells Tear Drop Cells Stomatocytes Puncture Site ABG pH ABG pCO2 at Pt Temp ABG pO2 at Pt Temp ABG HCO3 ABG O2 Sat (Measured) ABG O2 Content ABG Base Excess Trevor Test O2 Delivery Device Oxygen Flow Rate Vent Mode Vent Rate PEEP Pressure Support Vent Sodium 142 Potassium 4.4 Chloride 101 Carbon Dioxide 37 H Anion Gap 4 L BUN 40 H Creatinine 0.8 Creat Clearance w eGFR 71.55 Random Glucose 248 H Calcium 9.1 Phosphorus 2.7 Magnesium 1.9 Active Medications Generic Name Dose Route Start Last Admin Trade Name Freq PRN Reason Stop Dose Admin Abacavir/Dolutegravir/Lamivudine 1 each 08/10/18 14:00 08/17/18 09:21 Triumeq (Non-Formulary) PO 1 each DAILY [facility] Administration Acetaminophen 1,000 mg 08/16/18 16:11 Tylenol Oral Solution - PO Q6H PRN FEVER Albuterol Sulfate 1 amp 08/15/18 12:32 Ventolin 0.083% Nebulizer Soln - NEB Q4H PRN SHORT OF BREATH/WHEEZING Albuterol/Ipratropium 1 amp 08/17/18 16:00 08/17/18 21:36 Duoneb - NEB 1 amp RQID [facility] Administration Carvedilol 12.5 mg 08/10/18 10:00 08/17/18 21:52 Coreg - PO 12.5 mg BID [facility] Administration Chlorhexidine Gluconate 15 ml 08/17/18 22:00 08/17/18 21:53 Peridex - MM 15 ml BID [facility] Administration Clopidogrel Bisulfate 75 mg 08/10/18 10:00 08/17/18 09:13 Plavix - PO 75 mg DAILY [facility] Administration Heparin Sodium (Porcine) 5,000 unit 08/17/18 14:00 08/18/18 06:25 Heparin - SQ 5,000 unit TID [facility] Administration Hydralazine HCl 50 mg 08/11/18 14:08 08/18/18 06:25 Apresoline - NGT Not Given TID [facility] Propofol 1,000,000 mcg in 100 mls @ 1.66 mls/hr 08/10/18 19:30 08/18/18 00:43 Diprivan - IVPB 40 mcg/kg/min TITR [facility] 13.281 mls/hr Administration Protocol 5 MCG/KG/MIN Fentanyl 500 mcg/ Dextrose 100 mls @ 5 mls/hr 08/10/18 20:15 08/18/18 00:43 IVPB 110 mcg/hr TITR [facility] 22 mls/hr Administration Protocol 25 MCG/HR Vancomycin HCl 1 gm in 200 mls @ 133.333 mls/hr 08/15/18 19:00 08/18/18 06:30 Vancomycin 1 Gm Premix - IVPB 133.333 mls/hr BID@0700,1900 [facility] Administration Protocol Piperacillin Sod/Tazobactam 50 mls @ 100 mls/hr 08/15/18 18:00 08/18/18 01:28 Sod 3.375 gm/ Dextrose IVPB 100 mls/hr Q8H-IV [facility] Administration Protocol Midazolam HCl 100 mg/ Sodium 100 mls @ 1 mls/hr 08/17/18 14:45 08/18/18 01:36 Chloride IVPB 3 mg/hr TITR [facility] 3 mls/hr Titration Protocol 1 MG/HR Losartan Potassium 50 mg 08/11/18 13:00 08/18/18 00:44 Cozaar - PO Not Given BID [facility] Methylprednisolone Sodium Succinate 40 mg 08/17/18 12:15 08/18/18 01:28 Solu-Medrol - IVPUSH 40 mg Q8H-IV [facility] Administration Midazolam HCl 2 mg 08/14/18 20:55 08/17/18 12:00 Versed - IVPUSH 2 mg Q3H PRN Administration AGITATION Mupirocin 1 applic 08/17/18 22:00 08/18/18 00:44 Bactroban Ointment (For Decolonization) - NS 08/22/18 21:59 Not Given BID [facility] Pantoprazole Sodium 40 mg 08/11/18 13:15 08/17/18 09:14 Protonix Iv IVPUSH 40 mg DAILY [facility] Administration Polyethylene Glycol 17 gm 08/15/18 13:30 08/17/18 09:15 Miralax (For Daily Use) - NGT Not Given DAILY [facility] Ranolazine 500 mg 08/10/18 11:30 08/17/18 21:52 Ranexa - PO 500 mg BID [facility] Administration Spironolactone 25 mg 08/11/18 14:15 08/17/18 09:19 Aldactone - NGT 25 mg DAILY [facility] Administration ASSESSMENT/PLAN: 67 year old female with HTN, CAD s/p CABG in 2009, PVD with B/L LE stents, HIV, HEP C, COPD and CHF. Admitted to the ICU for Acute hypoxic hypercapnic respiratory failure and dehydration. Neuro: -Sedated with Propofol, Fentanyl, and Versed drips -Will attempt sedation wean tomorrow with Precedex to help with agitation. Endocrine: - Consult: Dr. Leach - Acute Kidney Injury resolved - Continue to trend electrolytes Cardiovascular: - Consult: Dr. Fitzgerald - LV Diastolic/Systolic Dysfunction -c/w home Clopidogrel -c/w home Carvedilol, Hydralazine, Losartan for BP control -c/w home Ranolazine and Spironolactone Pulm / Resp: -Acute on Chronic Hypoxic and Hypercapneic Respiratory Failure -c/w albuterol PRN. Standing QID nebs changed from albuterol to duonebs -solu-medrol decreased from 80mg q8h to 40mg q8h -CXR w/o significant change. -Plan to continue to optimize for vent wean. -Vent settings unchanged today Gastrointestinal: -Polyethylene Glycol for constipation Infectious Disease: -Consult Dr. Khan -h/o HIV: continue HAART Therapy per ID -worsening leukocytosis today; afebrile -BCx w/ Gm + cocci in clusters in 1 bottle -Sputum culture grew Pseudomonas and MSSA -on empiric Vanc and Zosyn. FEN: -No fluids indicated -lytes WNL -Tube Feed per dietary Prophylaxis: -DVT: Heparin SQ -GI: Pantoprazole Dispo: Continue to monitor the intubated pt in the ICU. Andrez Tolentino MD, PGY1 ICU Consult Service Visit type - Emergency Visit Emergency Visit: No - New Patient This patient is new to me today: No - Critical Care Critical Care patient: Yes Total Critical Care Time (in minutes): 38 Critical Care Statement: The care of this patient involved high complexity decision making to prevent further life threatening deterioration of the patient 's condition and/or to evaluate & treat vital organ system(s) failure or risk of failure.
[2018-08-18] MEDS: ALBUTEROL SO4 2.5/IPRATROPIUM 0.5 INH SOL 3 ML VIAL.NEB. NEB SCH ×4 (08:52→21:19)
[2018-08-18] MEDS: POLYETHYLENE GLYCOL 3350 119 GM BTL NGT SCH (10:02)
[2018-08-18] MEDS: CHLORHEXIDINE GLUCONATE 0.12% 15ML CUP MM SCH ×2 (10:02→21:22)
[2018-08-18] MEDS: PANTOPRAZOLE SODIUM 40 MG VIAL IVPUSH SCH (10:03)
[2018-08-18] MEDS: RANOLAZINE E.R. 500 MG TABLET (FP) PO SCH ×2 (10:03→21:20)
[2018-08-18] MEDS: CLOPIDOGREL BISULFATE 75 MG TABLET (FP) PO SCH (10:04)
[2018-08-18] MEDS: CARVEDILOL 12.5 MG TABLET (FP) PO SCH ×2 (10:05→21:20)
[2018-08-18] MEDS ORDERED: PT OWN MED DRAWER 7, Y5N ONE (10:07)
[2018-08-18] MEDS: ABACAVIR/DOLUTEGRAVIR/LAMIVUDI (TRIUMEQ) TABLET -NF PO SCH (10:08)
[2018-08-18] MEDS: SPIRONOLACTONE 25 MG TABLET (FP) NGT SCH (10:10)
[2018-08-18 11:55] LABS: ANISOCYTOSIS 1+; MACROCYTOSIS 1+; PLATELET ESTIMATE NORMAL
--- NOTE | 2018-08-18 12:02 | PN ---
Progress Note, Physician History of Present Illness: Remains sedated and intubated on ventilator support, tolerating enteral feeds, hemodynamics stable. - Current Medication List Current Medications: Active Medications Abacavir/Dolutegravir/Lamivudine (Triumeq (Non-Formulary)) 1 each PO DAILY [facility] Last Admin: 08/18/18 10:08 Dose: 1 each Acetaminophen (Tylenol Oral Solution -) 1,000 mg PO Q6H PRN PRN Reason: FEVER Albuterol Sulfate (Ventolin 0.083% Nebulizer Soln -) 1 amp NEB Q4H PRN PRN Reason: SHORT OF BREATH/WHEEZING Albuterol/Ipratropium (Duoneb -) 1 amp NEB RQID [facility] Last Admin: 08/18/18 08:52 Dose: 1 amp Carvedilol (Coreg -) 12.5 mg PO BID [facility] Last Admin: 08/18/18 10:05 Dose: Not Given Chlorhexidine Gluconate (Peridex -) 15 ml MM BID [facility] Last Admin: 08/18/18 10:02 Dose: 15 ml Clopidogrel Bisulfate (Plavix -) 75 mg PO DAILY [facility] Last Admin: 08/18/18 10:04 Dose: 75 mg Heparin Sodium (Porcine) (Heparin -) 5,000 unit SQ TID [facility] Last Admin: 08/18/18 06:25 Dose: 5,000 unit Hydralazine HCl (Apresoline -) 50 mg NGT TID [facility] Last Admin: 08/18/18 06:25 Dose: Not Given Propofol (Diprivan -) 1,000,000 mcg in 100 mls @ 1.66 mls/hr IVPB TITR [facility]; Protocol Last Admin: 08/18/18 00:43 Dose: 40 mcg/kg/min, 13.281 mls/hr Fentanyl 500 mcg/ Dextrose 100 mls @ 5 mls/hr IVPB TITR [facility]; Protocol Last Admin: 08/18/18 00:43 Dose: 110 mcg/hr, 22 mls/hr Vancomycin HCl (Vancomycin 1 Gm Premix -) 1 gm in 200 mls @ 133.333 mls/hr IVPB BID@0700,1900 [facility]; Protocol Last Admin: 08/18/18 06:30 Dose: 133.333 mls/hr Piperacillin Sod/Tazobactam (Sod 3.375 gm/ Dextrose) 50 mls @ 100 mls/hr IVPB Q8H-IV [facility]; Protocol Last Admin: 08/18/18 10:09 Dose: 100 mls/hr Midazolam HCl 100 mg/ Sodium (Chloride) 100 mls @ 1 mls/hr IVPB TITR [facility]; Protocol Last Titration: 08/18/18 01:36 Dose: 3 mg/hr, 3 mls/hr Losartan Potassium (Cozaar -) 50 mg PO BID [facility] Last Admin: 08/18/18 10:05 Dose: Not Given Methylprednisolone Sodium Succinate (Solu-Medrol -) 40 mg IVPUSH Q8H-IV [facility] Last Admin: 08/18/18 10:03 Dose: 40 mg Midazolam HCl (Versed -) 2 mg IVPUSH Q3H PRN PRN Reason: AGITATION Last Admin: 08/17/18 12:00 Dose: 2 mg Mupirocin (Bactroban Ointment (For Decolonization) -) 1 applic NS BID [facility] Stop: 08/22/18 21:59 Last Admin: 08/18/18 10:02 Dose: 1 applic Pantoprazole Sodium (Protonix Iv) 40 mg IVPUSH DAILY [facility] Last Admin: 08/18/18 10:03 Dose: 40 mg Polyethylene Glycol (Miralax (For Daily Use) -) 17 gm NGT DAILY [facility] Last Admin: 08/18/18 10:02 Dose: Not Given Ranolazine (Ranexa -) 500 mg PO BID [facility] Last Admin: 08/18/18 10:03 Dose: 500 mg Spironolactone (Aldactone -) 25 mg NGT DAILY [facility] Last Admin: 08/18/18 10:10 Dose: 25 mg - Objective Vital Signs: Vital Signs Temperature 99.7 F H 08/18/18 10:00 Pulse Rate 83 08/18/18 10:00 Respiratory Rate 16 08/18/18 10:00 Blood Pressure 100/60 08/18/18 10:00 O2 Sat by Pulse Oximetry (%) 94 L 08/17/18 22:00 Constitutional: Yes: No Distress, Calm, Thin Cardiovascular: Yes: Regular Rate and Rhythm Respiratory: Yes: Intubated, Mechanically Ventilated, Rhonchi Gastrointestinal: Yes: Soft, Hypoactive Bowel Sounds Edema: No Labs: CBC, BMP 08/18/18 05:30 08/18/18 05:30 INR, PTT INR 1.49 (0.83-1.09) H 08/08/18 19:37 - ....Imaging Chest X-ray: Report Reviewed (Mild congestion) Problem List - Problems (1) Altered mental status, unspecified Code(s): R41.82 - ALTERED MENTAL STATUS, UNSPECIFIED Qualifiers: Altered mental status type: somnolence Qualified Code(s): R40.0 - Somnolence (2) CHF (congestive heart failure) Code(s): I50.9 - HEART FAILURE, UNSPECIFIED Qualifiers: Heart failure type: diastolic Heart failure chronicity: chronic Qualified Code(s): I50.32 - Chronic diastolic (congestive) heart failure (3) COPD with acute exacerbation Code(s): J44.1 - CHRONIC OBSTRUCTIVE PULMONARY DISEASE W (ACUTE) EXACERBATION (4) Elevated troponin I level Code(s): R74.8 - ABNORMAL LEVELS OF OTHER SERUM ENZYMES (5) Respiratory acidosis Code(s): E87.2 - ACIDOSIS (6) CAD (coronary artery disease) Code(s): I25.10 - ATHSCL HEART DISEASE OF [place] CORONARY ARTERY W/O ANG PCTRS Qualifiers: Coronary Disease-Associated Artery/Lesion type: [place] artery [place] vs. transplanted heart: [place] heart Associated angina: without angina Qualified Code(s): I25.10 - Atherosclerotic heart disease of [place] coronary artery without angina pectoris (7) Asymptomatic cholelithiasis Code(s): K80.20 - CALCULUS OF GALLBLADDER W/O CHOLECYSTITIS W/O OBSTRUCTION (8) Cor pulmonale, chronic Code(s): I27.81 - COR PULMONALE (CHRONIC) (9) HIV Code(s): Z21 - ASYMPTOMATIC HUMAN IMMUNODEFICIENCY VIRUS INFECTION STATUS (10) HTN (hypertension) Code(s): I10 - ESSENTIAL (PRIMARY) HYPERTENSION Qualifiers: Hypertension type: essential hypertension Qualified Code(s): I10 - Essential (primary) hypertension (11) Hyperlipidemia Code(s): E78.5 - HYPERLIPIDEMIA, UNSPECIFIED Qualifiers: Hyperlipidemia type: pure hypercholesterolemia Qualified Code(s): E78.00 - Pure hypercholesterolemia, unspecified; E78.0 - Pure hypercholesterolemia (12) PVD (peripheral vascular disease) Code(s): I73.9 - PERIPHERAL VASCULAR DISEASE, UNSPECIFIED (13) S/P CABG (coronary artery bypass graft) Code(s): Z95.1 - PRESENCE OF AORTOCORONARY BYPASS GRAFT Assessment/Plan Echo: 07/06/2018 Mod cLVH with preserved LV fxn, mod-severe RITIKA, severe TR, RVSP >60, RV volume overload with mod decreased RV fxn 1. Acute on chronic hypercapneic/hypoxemic respiratory failure - mechanical ventilation 2. Acute exacerbation of chronic obstructive pulmonary disease 3. Right Heart Failure/Volume Overload with Severe Pulmonary HTN 4. Diastolic dysfunction 5. CAD s/p CABG, demand ischemia 7. HTN 8. Hypercholesterolemia 9. HIV and Hepatitis C 10. PAD s/p SFA stent 11. Pre-renal Acute on CKD improving, hyperkalemia and hyponatremia 12. Toxic metabolic encephelopathy 13. Cholelithiasis PLAN: 1. Continue Aldactone 25 mg QD and Losartan 50 mg BID as tolerated 2. Continue Carvedilol 12.5 mg BID, Plavix 75 mg QD, Hydralazine 50 mg TID, Lipitor 10 mg QD and Ranexa 500 mg BID as tolerated (via NG) 3. IV steroid taoer, bronchodilator and vent wean as per critical care team. 4. Continue antibiotic coverage 5. DVT prophylaxis and enteral feeds
[2018-08-18 12:12] LABS: PH,URINE 5.5 (5.0-8.0); URINE APPEARANCE CLEAR; URINE BILIRUBIN NEGATIVE (NEGATIVE); URINE COLOR YELLOW; URINE GLUCOSE (UA) NEGATIVE (NEGATIVE); URINE KETONE NEGATIVE (NEGATIVE); URINE LEUK ESTERASE NEGATIVE (NEGATIVE); URINE NITRITE NEGATIVE (NEGATIVE); URINE PROTEIN TRACE (NEGATIVE); URINE UROBILINOGEN 0.2 mg/dL (0.2-1.0)
[2018-08-18] MEDS ORDERED: DEXMEDETOMIDINE HCL 200 MCG in SODIUM CHLORIDE 48 ML IVPB SCH (12:15)
--- NOTE | 2018-08-18 12:30 | PN ---
Teaching Attending Note Name of Resident: Andrez Tolentino ATTENDING PHYSICIAN STATEMENT I saw and evaluated the patient. I reviewed the resident's note and discussed the case with the resident. I agree with the resident's findings and plan as documented. SUBJECTIVE: Patient seen and examined in the ICU. Remains intubated. AC Mode of vent, 40% FiO2. Apparently did not tolerate wean trials yesterday. No pressors. Flow loops much improved. OBJECTIVE: Intake & Output 08/15/18 08/16/18 08/17/18 08/18/18 23:59 23:59 23:59 23:59 Intake Total 3210 3834 3465.2 742 Output Total 1500 1900 2150 450 Balance 1710 1934 1315.2 292 Weight 118 lb 9.739 oz 120 lb 5.958 oz 120 lb 5.958 oz 121 lb 0.54 oz Last Vital Signs Temp Pulse Resp BP Pulse Ox 99.7 F H 83 16 100/60 94 L 08/18/18 10:00 08/18/18 10:00 08/18/18 10:00 08/18/18 10:00 08/17/18 22:00 Active Medications Abacavir/Dolutegravir/Lamivudine (Triumeq (Non-Formulary)) 1 each PO DAILY [facility] Last Admin: 08/18/18 10:08 Dose: 1 each Acetaminophen (Tylenol Oral Solution -) 1,000 mg PO Q6H PRN PRN Reason: FEVER Albuterol Sulfate (Ventolin 0.083% Nebulizer Soln -) 1 amp NEB Q4H PRN PRN Reason: SHORT OF BREATH/WHEEZING Albuterol/Ipratropium (Duoneb -) 1 amp NEB RQID [facility] Last Admin: 08/18/18 08:52 Dose: 1 amp Carvedilol (Coreg -) 12.5 mg PO BID [facility] Last Admin: 08/18/18 10:05 Dose: Not Given Chlorhexidine Gluconate (Peridex -) 15 ml MM BID [facility] Last Admin: 08/18/18 10:02 Dose: 15 ml Clopidogrel Bisulfate (Plavix -) 75 mg PO DAILY [facility] Last Admin: 08/18/18 10:04 Dose: 75 mg Heparin Sodium (Porcine) (Heparin -) 5,000 unit SQ TID [facility] Last Admin: 08/18/18 06:25 Dose: 5,000 unit Hydralazine HCl (Apresoline -) 50 mg NGT TID [facility] Last Admin: 08/18/18 06:25 Dose: Not Given Fentanyl 500 mcg/ Dextrose 100 mls @ 5 mls/hr IVPB TITR [facility]; Protocol Last Admin: 08/18/18 11:56 Dose: 110 mcg/hr, 22 mls/hr Vancomycin HCl (Vancomycin 1 Gm Premix -) 1 gm in 200 mls @ 133.333 mls/hr IVPB BID@0700,1900 [facility]; Protocol Last Admin: 08/18/18 06:30 Dose: 133.333 mls/hr Piperacillin Sod/Tazobactam (Sod 3.375 gm/ Dextrose) 50 mls @ 100 mls/hr IVPB Q8H-IV [facility]; Protocol Last Admin: 08/18/18 10:09 Dose: 100 mls/hr Midazolam HCl 100 mg/ Sodium (Chloride) 100 mls @ 1 mls/hr IVPB TITR [facility]; Protocol Last Titration: 08/18/18 01:36 Dose: 3 mg/hr, 3 mls/hr Dexmedetomidine HCl 200 mcg/ (Sodium Chloride) 50 mls @ 20.58 mls/hr IVPB TITR [facility] Losartan Potassium (Cozaar -) 50 mg PO BID [facility] Last Admin: 08/18/18 10:05 Dose: Not Given Methylprednisolone Sodium Succinate (Solu-Medrol -) 40 mg IVPUSH Q8H-IV [facility] Last Admin: 08/18/18 10:03 Dose: 40 mg Midazolam HCl (Versed -) 2 mg IVPUSH Q3H PRN PRN Reason: AGITATION Last Admin: 08/17/18 12:00 Dose: 2 mg Mupirocin (Bactroban Ointment (For Decolonization) -) 1 applic NS BID [facility] Stop: 08/22/18 21:59 Last Admin: 08/18/18 10:02 Dose: 1 applic Pantoprazole Sodium (Protonix Iv) 40 mg IVPUSH DAILY [facility] Last Admin: 08/18/18 10:03 Dose: 40 mg Polyethylene Glycol (Miralax (For Daily Use) -) 17 gm NGT DAILY [facility] Last Admin: 08/18/18 10:02 Dose: Not Given Ranolazine (Ranexa -) 500 mg PO BID [facility] Last Admin: 04/11/19 10:03 Dose: 500 mg Spironolactone (Aldactone -) 25 mg NGT DAILY [facility] Last Admin: 08/18/18 10:10 Dose: 25 mg Gen: intubated, sedated Heart: RRR Lung: No active wheeze appreciated, scattered rhonchi Abd: soft, nontender Ext: no edema Laboratory Results - last 24 hr 08/17/18 08/17/18 08/18/18 05:30 13:35 05:30 WBC 30.1 H* RBC 3.10 L Hgb 9.5 L Hct 29.2 L MCV 94.2 MCH 30.8 MCHC 32.7 RDW 15.5 Plt Count 214 MPV 9.3 Absolute Neuts (auto) 27.3 H Neutrophils % 90.5 H Neutrophils % (Manual) 92.9 H 93.9 H Band Neutrophils % 2.0 0.0 Lymphocytes % 1.3 L Lymphocytes % (Manual) 0.0 L 1.0 L D Monocytes % 7.8 Monocytes % (Manual) 3 L 5 Eosinophils % 0.0 Eosinophils % (Manual) 0.0 D 0.0 Basophils % 0.4 D Basophils % (Manual) 0.0 0.0 Myelocytes % (Man) 0 0 Promyelocytes % (Man) 0 0 Blast Cells % (Manual) 0 0 Nucleated RBC % 0 Metamyelocytes 2 D 0 D Hypochromia 1+ 0 Platelet Estimate Normal Normal Polychromasia 1+ 0 Poikilocytosis 1+ 0 Anisocytosis 1+ 1+ Microcytosis 1+ 0 Macrocytosis 0 1+ Spherocytes 1+ Target Cells 1+ Tear Drop Cells 1+ Stomatocytes 1+ Puncture Site Right radial ABG pH 7.36 ABG pCO2 at Pt Temp 63.9 H ABG pO2 at Pt Temp 59.5 L ABG HCO3 34.9 H ABG O2 Sat (Measured) 88.6 L ABG O2 Content 13.8 L ABG Base Excess 8.0 H Trevor Test Positive O2 Delivery Device Mec. vent Oxygen Flow Rate 40 Vent Mode B/c Vent Rate 16 PEEP 5.0 Pressure Support Vent 350 Sodium Potassium Chloride Carbon Dioxide Anion Gap BUN Creatinine Creat Clearance w eGFR POC Glucometer Random Glucose Calcium Phosphorus Magnesium Urine Color Urine Appearance Urine pH Ur Specific [place] Urine Protein Urine Glucose (UA) Urine Ketones Urine Blood Urine Nitrite Urine Bilirubin Urine Urobilinogen Ur Leukocyte Esterase 08/18/18 08/18/18 08/18/18 05:30 11:00 11:53 WBC RBC Hgb Hct MCV MCH MCHC RDW Plt Count MPV Absolute Neuts (auto) Neutrophils % Neutrophils % (Manual) Band Neutrophils % Lymphocytes % Lymphocytes % (Manual) Monocytes % Monocytes % (Manual) Eosinophils % Eosinophils % (Manual) Basophils % Basophils % (Manual) Myelocytes % (Man) Promyelocytes % (Man) Blast Cells % (Manual) Nucleated RBC % Metamyelocytes Hypochromia Platelet Estimate Polychromasia Poikilocytosis Anisocytosis Microcytosis Macrocytosis Spherocytes Target Cells Tear Drop Cells Stomatocytes Puncture Site ABG pH ABG pCO2 at Pt Temp ABG pO2 at Pt Temp ABG HCO3 ABG O2 Sat (Measured) ABG O2 Content ABG Base Excess Trevor Test O2 Delivery Device Oxygen Flow Rate Vent Mode Vent Rate PEEP Pressure Support Vent Sodium 142 Potassium 4.4 Chloride 101 Carbon Dioxide 37 H Anion Gap 4 L BUN 40 H Creatinine 0.8 Creat Clearance w eGFR 71.55 POC Glucometer 196 Random Glucose 248 H Calcium 9.1 Phosphorus 2.7 Magnesium 1.9 Urine Color Yellow Urine Appearance Clear Urine pH 5.5 Ur Specific [place] 1.020 Urine Protein Trace Urine Glucose (UA) Negative Urine Ketones Negative Urine Blood Negative Urine Nitrite Negative Urine Bilirubin Negative Urine Urobilinogen 0.2 Ur Leukocyte Esterase Negative ASSESSMENT AND PLAN: Acute on Chronic Hypoxic and Hypercapneic Respiratory Failure Acute COPD Exacerbation Acute Kidney Injury Altered Mental Status LV Diastolic/Systolic Dysfunction Severe Pulmonary HTN CAD s/p CABG HIV PAD HTN - Current vent settings (adjusted to allow for prolonged I:E Ratio) - Medrol - Inhaled bronchodilators standing & PRN - Enteral feeds - Monitor lytes - Daily sedation vacations - Wean trials today with increased PS as tolerated - DVT prophylaxis - continue ICU monitoring Dr Suero Critical care time spent in reviewing chart, evaluating patient and formulating plan 36 min
[2018-08-18] MEDS ORDERED: MIDAZOLAM 100 MG/100 ML MG IVPB ONE (16:10)
[2018-08-18] MEDS: MIDAZOLAM 100 MG in SODIUM CHLORIDE 100 ML IVPB SCH (16:21)
--- NOTE | 2018-08-18 16:49 | PN ---
Progress Note, Physician History of Present Illness: Pt seen and examined at bedside. She remains in the ICU intubated. - Current Medication List Current Medications: Active Medications Abacavir/Dolutegravir/Lamivudine (Triumeq (Non-Formulary)) 1 each PO DAILY [facility] Last Admin: 08/18/18 10:08 Dose: 1 each Acetaminophen (Tylenol Oral Solution -) 1,000 mg PO Q6H PRN PRN Reason: FEVER Albuterol Sulfate (Ventolin 0.083% Nebulizer Soln -) 1 amp NEB Q4H PRN PRN Reason: SHORT OF BREATH/WHEEZING Albuterol/Ipratropium (Duoneb -) 1 amp NEB RQID [facility] Last Admin: 08/18/18 12:45 Dose: 1 amp Carvedilol (Coreg -) 12.5 mg PO BID [facility] Last Admin: 08/18/18 10:05 Dose: Not Given Chlorhexidine Gluconate (Peridex -) 15 ml MM BID [facility] Last Admin: 08/18/18 10:02 Dose: 15 ml Clopidogrel Bisulfate (Plavix -) 75 mg PO DAILY [facility] Last Admin: 08/18/18 10:04 Dose: 75 mg Heparin Sodium (Porcine) (Heparin -) 5,000 unit SQ TID [facility] Last Admin: 08/18/18 16:27 Dose: 5,000 unit Hydralazine HCl (Apresoline -) 50 mg NGT TID [facility] Last Admin: 08/18/18 16:27 Dose: 50 mg Fentanyl 500 mcg/ Dextrose 100 mls @ 5 mls/hr IVPB TITR [facility]; Protocol Last Admin: 08/18/18 11:56 Dose: 110 mcg/hr, 22 mls/hr Vancomycin HCl (Vancomycin 1 Gm Premix -) 1 gm in 200 mls @ 133.333 mls/hr IVPB BID@0700,1900 [facility]; Protocol Last Admin: 08/18/18 06:30 Dose: 133.333 mls/hr Piperacillin Sod/Tazobactam (Sod 3.375 gm/ Dextrose) 50 mls @ 100 mls/hr IVPB Q8H-IV [facility]; Protocol Last Admin: 08/18/18 10:09 Dose: 100 mls/hr Midazolam HCl 100 mg/ Sodium (Chloride) 100 mls @ 1 mls/hr IVPB TITR [facility]; Protocol Last Admin: 08/18/18 16:21 Dose: 3 mg/hr, 3 mls/hr Dexmedetomidine HCl 200 mcg/ (Sodium Chloride) 50 mls @ 20.58 mls/hr IVPB TITR [facility] Propofol (Diprivan -) 1,000,000 mcg in 100 mls @ 1.647 mls/hr IVPB TITR [facility]; Protocol Losartan Potassium (Cozaar -) 50 mg PO BID [facility] Last Admin: 08/18/18 10:05 Dose: Not Given Methylprednisolone Sodium Succinate (Solu-Medrol -) 40 mg IVPUSH Q8H-IV [facility] Last Admin: 08/18/18 10:03 Dose: 40 mg Midazolam HCl (Versed -) 2 mg IVPUSH Q3H PRN PRN Reason: AGITATION Last Admin: 08/17/18 12:00 Dose: 2 mg Mupirocin (Bactroban Ointment (For Decolonization) -) 1 applic NS BID [facility] Stop: 08/22/18 21:59 Last Admin: 08/18/18 10:02 Dose: 1 applic Pantoprazole Sodium (Protonix Iv) 40 mg IVPUSH DAILY [facility] Last Admin: 08/18/18 10:03 Dose: 40 mg Polyethylene Glycol (Miralax (For Daily Use) -) 17 gm NGT DAILY [facility] Last Admin: 08/18/18 10:02 Dose: Not Given Ranolazine (Ranexa -) 500 mg PO BID [facility] Last Admin: 08/18/18 10:03 Dose: 500 mg Spironolactone (Aldactone -) 25 mg NGT DAILY [facility] Last Admin: 08/18/18 10:10 Dose: 25 mg - Objective Vital Signs: Vital Signs Temperature 98.5 F 08/18/18 14:00 Pulse Rate 92 H 08/18/18 14:00 Respiratory Rate 29 H 08/18/18 15:04 Blood Pressure 129/79 08/18/18 14:00 O2 Sat by Pulse Oximetry (%) 94 L 08/17/18 22:00 Constitutional: Yes: Calm Eyes: Yes: Conjunctiva Clear HENT: Yes: Atraumatic Neck: Yes: Supple Cardiovascular: Yes: S1, S2 Respiratory: Yes: Mechanically Ventilated Gastrointestinal: Yes: Soft Genitourinary: Yes: Torres Present Edema: No Neurological: Yes: Lethargy Labs: CBC, BMP 08/18/18 05:30 08/18/18 05:30 INR, PTT INR 1.49 (0.83-1.09) H 08/08/18 19:37 Problem List - Problems (1) Acute renal failure Code(s): N17.9 - ACUTE KIDNEY FAILURE, UNSPECIFIED Qualifiers: Acute renal failure type: unspecified Qualified Code(s): N17.9 - Acute kidney failure, unspecified (2) Altered mental status, unspecified Code(s): R41.82 - ALTERED MENTAL STATUS, UNSPECIFIED Qualifiers: Altered mental status type: somnolence Qualified Code(s): R40.0 - Somnolence (3) CHF (congestive heart failure) Code(s): I50.9 - HEART FAILURE, UNSPECIFIED Qualifiers: Heart failure type: diastolic Heart failure chronicity: chronic Qualified Code(s): I50.32 - Chronic diastolic (congestive) heart failure (4) COPD with acute exacerbation Code(s): J44.1 - CHRONIC OBSTRUCTIVE PULMONARY DISEASE W (ACUTE) EXACERBATION (5) Hyperkalemia Code(s): E87.5 - HYPERKALEMIA Assessment/Plan Current Medications Generic Name Dose Route Start Last Admin Trade Name Freq PRN Reason Stop Dose Admin Abacavir/Dolutegravir/Lamivudine 1 each 08/10/18 14:00 08/18/18 10:08 Triumeq (Non-Formulary) PO 1 each DAILY [facility] Administration Acetaminophen 1,000 mg 08/16/18 16:11 Tylenol Oral Solution - PO Q6H PRN FEVER Albuterol Sulfate 1 amp 08/15/18 12:32 Ventolin 0.083% Nebulizer Soln - NEB Q4H PRN SHORT OF BREATH/WHEEZING Albuterol/Ipratropium 1 amp 08/17/18 16:00 08/18/18 12:45 Duoneb - NEB 1 amp RQID [facility] Administration Carvedilol 12.5 mg 08/10/18 10:00 08/18/18 10:05 Coreg - PO Not Given BID [facility] Chlorhexidine Gluconate 15 ml 08/17/18 22:00 08/18/18 10:02 Peridex - MM 15 ml BID [facility] Administration Clopidogrel Bisulfate 75 mg 08/10/18 10:00 08/18/18 10:04 Plavix - PO 75 mg DAILY [facility] Administration Heparin Sodium (Porcine) 5,000 unit 08/17/18 14:00 08/18/18 16:27 Heparin - SQ 5,000 unit TID [facility] Administration Hydralazine HCl 50 mg 08/11/18 14:08 08/18/18 16:27 Apresoline - NGT 50 mg TID [facility] Administration Fentanyl 500 mcg/ Dextrose 100 mls @ 5 mls/hr 08/10/18 20:15 08/18/18 11:56 IVPB 110 mcg/hr TITR [facility] 22 mls/hr Administration Protocol 25 MCG/HR Vancomycin HCl 1 gm in 200 mls @ 133.333 mls/hr 08/15/18 19:00 08/18/18 06:30 Vancomycin 1 Gm Premix - IVPB 133.333 mls/hr BID@0700,1900 [facility] Administration Protocol Piperacillin Sod/Tazobactam 50 mls @ 100 mls/hr 08/15/18 18:00 08/18/18 10:09 Sod 3.375 gm/ Dextrose IVPB 100 mls/hr Q8H-IV [facility] Administration Protocol Midazolam HCl 100 mg/ Sodium 100 mls @ 1 mls/hr 08/17/18 14:45 08/18/18 16:21 Chloride IVPB 3 mg/hr TITR [facility] 3 mls/hr Administration Protocol 1 MG/HR Dexmedetomidine HCl 200 mcg/ 50 mls @ 20.58 mls/hr 08/18/18 12:15 Sodium Chloride IVPB TITR [facility] 1.5 MCG/KG/HR Propofol 1,000,000 mcg in 100 mls @ 1.647 mls/hr 08/18/18 15:15 Diprivan - IVPB TITR [facility] Protocol 5 MCG/KG/MIN Losartan Potassium 50 mg 08/11/18 13:00 08/18/18 10:05 Cozaar - PO Not Given BID [facility] Methylprednisolone Sodium Succinate 40 mg 08/17/18 12:15 08/18/18 10:03 Solu-Medrol - IVPUSH 40 mg Q8H-IV [facility] Administration Midazolam HCl 2 mg 08/14/18 20:55 08/17/18 12:00 Versed - IVPUSH 2 mg Q3H PRN Administration AGITATION Mupirocin 1 applic 08/17/18 22:00 08/18/18 10:02 Bactroban Ointment (For Decolonization) - NS 08/22/18 21:59 1 applic BID [facility] Administration Pantoprazole Sodium 40 mg 08/11/18 13:15 08/18/18 10:03 Protonix Iv IVPUSH 40 mg DAILY [facility] Administration Polyethylene Glycol 17 gm 08/15/18 13:30 08/18/18 10:02 Miralax (For Daily Use) - NGT Not Given DAILY [facility] Ranolazine 500 mg 08/10/18 11:30 08/18/18 10:03 Ranexa - PO 500 mg BID [facility] Administration Spironolactone 25 mg 08/11/18 14:15 08/18/18 10:10 Aldactone - NGT 25 mg DAILY [facility] Administration Impression 1. KRISTIAN 2. Hyperkalemia 3. HIV 4. hyponatremia 5. altered mental status 6. pulm HTN 7. htn 8. pvd 9. resp acidosis 10. resp failure requiring intubation Plan - cont feeds as tolerated - monitor lytes - pt on aldactone - steroids can contribute to elevated bun - vent support
--- NOTE | 2018-08-18 17:23 | PN ---
Progress Note, Physician History of Present Illness: intubated - Current Medication List Current Medications: Active Medications Abacavir/Dolutegravir/Lamivudine (Triumeq (Non-Formulary)) 1 each PO DAILY [facility] Last Admin: 08/18/18 10:08 Dose: 1 each Acetaminophen (Tylenol Oral Solution -) 1,000 mg PO Q6H PRN PRN Reason: FEVER Albuterol Sulfate (Ventolin 0.083% Nebulizer Soln -) 1 amp NEB Q4H PRN PRN Reason: SHORT OF BREATH/WHEEZING Albuterol/Ipratropium (Duoneb -) 1 amp NEB RQID [facility] Last Admin: 08/18/18 12:45 Dose: 1 amp Carvedilol (Coreg -) 12.5 mg PO BID [facility] Last Admin: 08/18/18 10:05 Dose: Not Given Chlorhexidine Gluconate (Peridex -) 15 ml MM BID [facility] Last Admin: 08/18/18 10:02 Dose: 15 ml Clopidogrel Bisulfate (Plavix -) 75 mg PO DAILY [facility] Last Admin: 08/18/18 10:04 Dose: 75 mg Heparin Sodium (Porcine) (Heparin -) 5,000 unit SQ TID [facility] Last Admin: 08/18/18 16:27 Dose: 5,000 unit Hydralazine HCl (Apresoline -) 50 mg NGT TID [facility] Last Admin: 08/18/18 16:27 Dose: 50 mg Fentanyl 500 mcg/ Dextrose 100 mls @ 5 mls/hr IVPB TITR [facility]; Protocol Last Admin: 08/18/18 11:56 Dose: 110 mcg/hr, 22 mls/hr Vancomycin HCl (Vancomycin 1 Gm Premix -) 1 gm in 200 mls @ 133.333 mls/hr IVPB BID@0700,1900 [facility]; Protocol Last Admin: 08/18/18 06:30 Dose: 133.333 mls/hr Piperacillin Sod/Tazobactam (Sod 3.375 gm/ Dextrose) 50 mls @ 100 mls/hr IVPB Q8H-IV [facility]; Protocol Last Admin: 08/18/18 17:18 Dose: 100 mls/hr Midazolam HCl 100 mg/ Sodium (Chloride) 100 mls @ 1 mls/hr IVPB TITR [facility]; Protocol Last Admin: 08/18/18 16:21 Dose: 3 mg/hr, 3 mls/hr Dexmedetomidine HCl 200 mcg/ (Sodium Chloride) 50 mls @ 20.58 mls/hr IVPB TITR [facility] Propofol (Diprivan -) 1,000,000 mcg in 100 mls @ 1.647 mls/hr IVPB TITR [facility]; Protocol Losartan Potassium (Cozaar -) 50 mg PO BID [facility] Last Admin: 08/18/18 10:05 Dose: Not Given Methylprednisolone Sodium Succinate (Solu-Medrol -) 40 mg IVPUSH Q8H-IV [facility] Last Admin: 08/18/18 17:17 Dose: 40 mg Midazolam HCl (Versed -) 2 mg IVPUSH Q3H PRN PRN Reason: AGITATION Last Admin: 08/17/18 12:00 Dose: 2 mg Mupirocin (Bactroban Ointment (For Decolonization) -) 1 applic NS BID [facility] Stop: 08/22/18 21:59 Last Admin: 08/18/18 10:02 Dose: 1 applic Pantoprazole Sodium (Protonix Iv) 40 mg IVPUSH DAILY [facility] Last Admin: 08/18/18 10:03 Dose: 40 mg Polyethylene Glycol (Miralax (For Daily Use) -) 17 gm NGT DAILY [facility] Last Admin: 08/18/18 10:02 Dose: Not Given Ranolazine (Ranexa -) 500 mg PO BID [facility] Last Admin: 08/18/18 10:03 Dose: 500 mg Spironolactone (Aldactone -) 25 mg NGT DAILY [facility] Last Admin: 08/18/18 10:10 Dose: 25 mg - Objective Vital Signs: Vital Signs Temperature 98.5 F 08/18/18 14:00 Pulse Rate 103 H 08/18/18 16:00 Respiratory Rate 31 H 08/18/18 16:00 Blood Pressure 134/72 08/18/18 16:00 O2 Sat by Pulse Oximetry (%) 94 L 08/17/18 22:00 Constitutional: Yes: No Distress HENT: Yes: Atraumatic Neck: Yes: Supple Cardiovascular: Yes: Regular Rate and Rhythm Respiratory: Yes: CTA Bilaterally Gastrointestinal: Yes: Normal Bowel Sounds Extremities: Yes: WNL Edema: No Neurological: Yes: Other (intubated) Labs: CBC, BMP 08/18/18 05:30 08/18/18 05:30 INR, PTT INR 1.49 (0.83-1.09) H 08/08/18 19:37 Problem List - Problems (1) Acute renal failure Assessment/Plan: monitor Code(s): N17.9 - ACUTE KIDNEY FAILURE, UNSPECIFIED Qualifiers: Acute renal failure type: unspecified Qualified Code(s): N17.9 - Acute kidney failure, unspecified (2) Altered mental status, unspecified Code(s): R41.82 - ALTERED MENTAL STATUS, UNSPECIFIED Qualifiers: Altered mental status type: somnolence Qualified Code(s): R40.0 - Somnolence (3) COPD with acute exacerbation Assessment/Plan: steroids duo nebs INTUBATED Code(s): J44.1 - CHRONIC OBSTRUCTIVE PULMONARY DISEASE W (ACUTE) EXACERBATION (4) Elevated troponin I level Code(s): R74.8 - ABNORMAL LEVELS OF OTHER SERUM ENZYMES (5) Hyperkalemia Code(s): E87.5 - HYPERKALEMIA (6) COPD (chronic obstructive pulmonary disease) Code(s): J44.9 - CHRONIC OBSTRUCTIVE PULMONARY DISEASE, UNSPECIFIED Qualifiers: (7) HIV Assessment/Plan: continue home meds Code(s): Z21 - ASYMPTOMATIC HUMAN IMMUNODEFICIENCY VIRUS INFECTION STATUS (8) HTN (hypertension) Assessment/Plan: monitor on meds Code(s): I10 - ESSENTIAL (PRIMARY) HYPERTENSION Qualifiers: Hypertension type: essential hypertension Qualified Code(s): I10 - Essential (primary) hypertension (9) Hyperlipidemia Code(s): E78.5 - HYPERLIPIDEMIA, UNSPECIFIED Qualifiers: Hyperlipidemia type: pure hypercholesterolemia Qualified Code(s): E78.00 - Pure hypercholesterolemia, unspecified; E78.0 - Pure hypercholesterolemia (10) PVD (peripheral vascular disease) Code(s): I73.9 - PERIPHERAL VASCULAR DISEASE, UNSPECIFIED (11) CHF (congestive heart failure) Code(s): I50.9 - HEART FAILURE, UNSPECIFIED Qualifiers: Heart failure type: diastolic Heart failure chronicity: chronic Qualified Code(s): I50.32 - Chronic diastolic (congestive) heart failure Assessment/Plan cc time in icu 35 min
[2018-08-19] MEDS ORDERED: PIPERACILLIN/TAZOBACTAM 3.375 GM VIAL IVPB ONE ×2 (00:59→10:36)
[2018-08-19] MEDS ORDERED: DEXTROSE 5%-WATER - 50 ML IVPB ONE ×2 (01:00→10:36)
[2018-08-19] MEDS: methylPREDNISolone NA SUCC 40 MG/1 ML VIAL IVPUSH SCH ×3 (01:03→17:28)
[2018-08-19] MEDS: PIPERACILLIN/TAZOB 3.375 GM 3.375 GM in DEXTROSE 5%-WATER - 50 ML IVPB SCH ×2 (01:03→10:35)
[2018-08-19] MEDS: ACETAMINOPHEN 650 MG/20.3 ML ORAL SOLUTION (CUPS) PO PRN (01:05)
[2018-08-19 06:01] LABS: BASO % 0.4 % (0-2.0); HEMATOCRIT 29.8 % (32.4-45.2); HEMOGLOBIN 9.6 GM/dL (10.7-15.3); LYMPH % 1.6 % (8-40); MCH 30.2 pg (25.7-33.7); MCHC 32.3 g/dl (32.0-36.0); MEAN CELL VOLUME 93.3 fl (80-96); MEAN PLT VOLUME 8.9 fl (7.5-11.1); MONO % 7.3 % (3.8-10.2); NEUT % 90.7 % (42.8-82.8); PLATELET COUNT 240 K/MM3 (134-434); RDW 15.5 % (11.6-15.6)
[2018-08-19] MEDS ORDERED: PT OWN MED DRAWER 7, Y5N ONE ×2 (06:05→21:09)
[2018-08-19] MEDS: HEPARIN NA (PORCINE) 5,000 UNITS/ML 1ML VIAL SQ SCH ×3 (06:08→21:12)
[2018-08-19] MEDS: hydrALAZINE HCL 50 MG TABLET (FP) NGT SCH ×3 (06:08→21:05)
[2018-08-19 06:16] LABS: WHITE BLOOD COUNT 32.5 K/mm3 (4.0-10.0)
[2018-08-19] MEDS: VANCOMYCIN 1 GM PREMIX - 1 GM/200 ML BAG IVPB SCH (06:26)
[2018-08-19 06:30] LABS: ANION GAP 3 MMOL/L (8-16); BLOOD UREA NITROGEN 37 mg/dL (7-18); CALCIUM 9.5 mg/dL (8.5-10.1); CHLORIDE 102 mmol/L (98-107); CO2 37 mmol/L (21-32); CREATININE 0.8 mg/dL (0.55-1.3); GLUCOSE,RANDOM 227 mg/dL (74-106); PHOSPHOROUS 3.6 mg/dL (2.5-4.9); POTASSIUM 4.3 mmol/L (3.5-5.1); SODIUM 143 mmol/L (136-145)
--- NOTE | 2018-08-19 06:59 | PN ---
Physical Exam: SUBJECTIVE: Patient seen and examined HD# 11 Overnight Events: Pt required increased sedation and increased FiO2 overnight. Attempted sedation wean yesterday but pt became significantly agitated and tachypneic. Pt reported to have multiple episodes of diarrhea. OBJECTIVE: Lines: - PIV Drains: - NG - Han Supplemental Oxygen: Ventilator: Mode: AC Vent rate: 16 Tv: 350 PEEP: 5 FiO2: 70 Intake & Output 08/16/18 08/17/18 08/18/18 08/19/18 23:59 23:59 23:59 23:59 Intake Total 3834 3465.2 1705 522 Output Total 1900 2150 1050 300 Balance 1934 1315.2 655 222 Weight 54.6 kg 54.6 kg 54.9 kg 55.6 kg Vital Signs Period Temp Pulse Resp BP Sys/Buck Pulse Ox Last 24 Hr 98.5 F-99.7 F 82-121 16-31 86-151/51-79 93 Physical Exams: GENERAL: The patient is sedated and intubated. HEAD: Normal with no signs of trauma. EYES: Closed. LUNGS: Intubated and mechanically ventilated. Breath sounds equal, with trace diffuse rhonchi. No wheezes or rales. HEART: Borderline tachycardic rate with regular rhythm, S1, S2 without murmur, rub or gallop. ABDOMEN: Soft and nondistended. EXTREMITIES: 2+ pulses, warm, well-perfused, no edema. SKIN: Warm and dry Laboratory Results - last 24 hr 08/18/18 08/18/18 08/18/18 05:30 11:00 11:53 WBC RBC Hgb Hct MCV MCH MCHC RDW Plt Count MPV Absolute Neuts (auto) Neutrophils % Neutrophils % (Manual) 93.9 H Band Neutrophils % 0.0 Lymphocytes % Lymphocytes % (Manual) 1.0 L D Monocytes % Monocytes % (Manual) 5 Eosinophils % Eosinophils % (Manual) 0.0 Basophils % Basophils % (Manual) 0.0 Myelocytes % (Man) 0 Promyelocytes % (Man) 0 Blast Cells % (Manual) 0 Nucleated RBC % Metamyelocytes 0 D Hypochromia 0 Platelet Estimate Normal Polychromasia 0 Poikilocytosis 0 Anisocytosis 1+ Microcytosis 0 Macrocytosis 1+ Sodium Potassium Chloride Carbon Dioxide Anion Gap BUN Creatinine Creat Clearance w eGFR POC Glucometer 196 Random Glucose Calcium Phosphorus Magnesium Urine Color Yellow Urine Appearance Clear Urine pH 5.5 Ur Specific [place] 1.020 Urine Protein Trace Urine Glucose (UA) Negative Urine Ketones Negative Urine Blood Negative Urine Nitrite Negative Urine Bilirubin Negative Urine Urobilinogen 0.2 Ur Leukocyte Esterase Negative 08/19/18 08/19/18 05:30 05:30 WBC 32.5 H* RBC 3.20 L Hgb 9.6 L Hct 29.8 L MCV 93.3 MCH 30.2 MCHC 32.3 RDW 15.5 Plt Count 240 MPV 8.9 Absolute Neuts (auto) 29.5 H Neutrophils % 90.7 H Neutrophils % (Manual) Band Neutrophils % Lymphocytes % 1.6 L D Lymphocytes % (Manual) Monocytes % 7.3 Monocytes % (Manual) Eosinophils % 0.0 Eosinophils % (Manual) Basophils % 0.4 Basophils % (Manual) Myelocytes % (Man) Promyelocytes % (Man) Blast Cells % (Manual) Nucleated RBC % 0 Metamyelocytes Hypochromia Platelet Estimate Polychromasia Poikilocytosis Anisocytosis Microcytosis Macrocytosis Sodium 143 Potassium 4.3 Chloride 102 Carbon Dioxide 37 H Anion Gap 3 L BUN 37 H Creatinine 0.8 Creat Clearance w eGFR 71.55 POC Glucometer Random Glucose 227 H Calcium 9.5 Phosphorus 3.6 Magnesium 2.0 Urine Color Urine Appearance Urine pH Ur Specific [place] Urine Protein Urine Glucose (UA) Urine Ketones Urine Blood Urine Nitrite Urine Bilirubin Urine Urobilinogen Ur Leukocyte Esterase Active Medications Generic Name Dose Route Start Last Admin Trade Name Freq PRN Reason Stop Dose Admin Abacavir/Dolutegravir/Lamivudine 1 each 08/10/18 14:00 08/18/18 10:08 Triumeq (Non-Formulary) PO 1 each DAILY [facility] Administration Acetaminophen 1,000 mg 08/16/18 16:11 08/19/18 01:05 Tylenol Oral Solution - PO 1,000 mg Q6H PRN Administration FEVER Albuterol Sulfate 1 amp 08/15/18 12:32 Ventolin 0.083% Nebulizer Soln - NEB Q4H PRN SHORT OF BREATH/WHEEZING Albuterol/Ipratropium 1 amp 08/17/18 16:00 08/18/18 21:19 Duoneb - NEB 1 amp RQID [facility] Administration Carvedilol 12.5 mg 08/10/18 10:00 08/18/18 21:20 Coreg - PO 12.5 mg BID [facility] Administration Chlorhexidine Gluconate 15 ml 08/17/18 22:00 08/18/18 21:22 Peridex - MM 15 ml BID [facility] Administration Clopidogrel Bisulfate 75 mg 08/10/18 10:00 08/18/18 10:04 Plavix - PO 75 mg DAILY [facility] Administration Heparin Sodium (Porcine) 5,000 unit 08/17/18 14:00 08/19/18 06:08 Heparin - SQ 5,000 unit TID [facility] Administration Hydralazine HCl 50 mg 08/11/18 14:08 08/19/18 06:08 Apresoline - NGT Not Given TID [facility] Fentanyl 500 mcg/ Dextrose 100 mls @ 5 mls/hr 08/10/18 20:15 08/18/18 20:30 IVPB 110 mcg/hr TITR [facility] 22 mls/hr Administration Protocol 25 MCG/HR Vancomycin HCl 1 gm in 200 mls @ 133.333 mls/hr 08/15/18 19:00 08/19/18 06:26 Vancomycin 1 Gm Premix - IVPB 133.333 mls/hr BID@0700,1900 [facility] Administration Protocol Piperacillin Sod/Tazobactam 50 mls @ 100 mls/hr 08/15/18 18:00 08/19/18 01:03 Sod 3.375 gm/ Dextrose IVPB 100 mls/hr Q8H-IV [facility] Administration Protocol Midazolam HCl 100 mg/ Sodium 100 mls @ 1 mls/hr 08/17/18 14:45 08/18/18 19:23 Chloride IVPB 5 mg/hr TITR [facility] 5 mls/hr Titration Protocol 1 MG/HR Dexmedetomidine HCl 200 mcg/ 50 mls @ 20.58 mls/hr 08/18/18 12:15 Sodium Chloride IVPB TITR [facility] 1.5 MCG/KG/HR Propofol 1,000,000 mcg in 100 mls @ 1.647 mls/hr 08/18/18 15:15 08/18/18 19: 22 Diprivan - IVPB 60 mcg/kg/min TITR [facility] 19.764 mls/hr Titration Protocol 5 MCG/KG/MIN Losartan Potassium 50 mg 08/11/18 13:00 08/18/18 21:20 Cozaar - PO 50 mg BID [facility] Administration Methylprednisolone Sodium Succinate 40 mg 08/17/18 12:15 08/19/18 01:03 Solu-Medrol - IVPUSH 40 mg Q8H-IV [facility] Administration Midazolam HCl 2 mg 08/14/18 20:55 08/17/18 12:00 Versed - IVPUSH 2 mg Q3H PRN Administration AGITATION Mupirocin 1 applic 08/17/18 22:00 08/18/18 21:23 Bactroban Ointment (For Decolonization) - NS 08/22/18 21:59 1 applic BID [facility] Administration Pantoprazole Sodium 40 mg 08/11/18 13:15 08/18/18 10:03 Protonix Iv IVPUSH 40 mg DAILY [facility] Administration Polyethylene Glycol 17 gm 08/15/18 13:30 08/18/18 10:02 Miralax (For Daily Use) - NGT Not Given DAILY [facility] Ranolazine 500 mg 08/10/18 11:30 08/18/18 21:20 Ranexa - PO 500 mg BID [facility] Administration Spironolactone 25 mg 08/11/18 14:15 08/18/18 10:10 Aldactone - NGT 25 mg DAILY [facility] Administration ASSESSMENT/PLAN: 67 year old female with HTN, CAD s/p CABG in 2009, PVD with B/L LE stents, HIV, HEP C, COPD and CHF. Admitted to the ICU for Acute hypoxic hypercapnic respiratory failure and dehydration. Neuro: - Currently sedated with Propofol, Fentanyl, and Versed drips. Will transition to Propofol and Precedex for sedation and agitation. Will re-ordered versed push PRN for additional agitation. -Will continue to attempt sedation wean but will proceed slowly and cautiously given pts increased FiO2 requirement Endocrine: - Consult: Dr. Leach - Acute Kidney Injury resolved - Continue to trend electrolytes Cardiovascular: - Consult: Dr. Fitzgerald - LV Diastolic/Systolic Dysfunction -c/w home Clopidogrel -c/w home Carvedilol, Hydralazine, Losartan for BP control -c/w home Ranolazine and Spironolactone Pulm / Resp: - Acute on Chronic Hypoxic and Hypercapneic Respiratory Failure - Continue albuterol PRN. Standing QID nebs changed from albuterol to duonebs - Continuing Solu-medrol wean at 40mg q8h - CXR w/o significant change. - FiO2 decreased to 50, which is still an increase from yesterday. PEEP increased to 7 for further support given observed periods of tachypnea, worsening CXR this morning, and significant leukocytosis. Suggest trying to decrease PEEP and FiO2 as tolerated tomorrow morning. - Today is intubation day 9. Will start considering transition to trach and collar on Wednesday. Gastrointestinal: - Multiple episodes of diarrhea. - Will d/c polyethylene glycol - Would consider adding banatrol packet BID tomorrow if symptoms do not improve. Discussed with wood carver hand. Infectious Disease: - Consult Dr. Khan - h/o HIV: continue HAART Therapy per ID - Leukocytosis continues to trend upward this morning without documented fever overnight. Borderline tachycardia. - Blood culture grew Gpb cocci in clusters in 1 bottle - Sputum culture grew Pseudomonas and MSSA - Urine culture grew e. Coli, Klebsiella pneumoniae, and enterococcus faecalis. - Stool Shigella/ Salmonella culture grew non-lactose fermenting Gnb. C-diff study was not sent. Ordered for today. - CORNELIA for Zosyn >16 for bacteria grown from both sputum and urine cultures. Will consider broadening covering to Meropenem given sensitivity data. Will discuss with Dr. Khan. - Will remove han catheter as possible source of infection. Stick I/Os are not necessary at this time. - Receiving Vanc and Zosyn at this time. Awaiting further recommendations from Dr. Khan. FEN: - No fluids indicated - lytes WNL -Tube Feed per dietary Prophylaxis: -DVT: Heparin SQ -GI: Pantoprazole Family Discussion: - Discussed current state and possible plans for trach with pts daughter, Netta , at the bedside. Will revisit on Wednesday. Dispo: Continue to monitor the intubated pt in the ICU. Andrez Tolentino MD, PGY1 ICU Consult Service Visit type - Emergency Visit Emergency Visit: No - New Patient This patient is new to me today: No - Critical Care Critical Care patient: Yes Total Critical Care Time (in minutes): 50 Critical Care Statement: The care of this patient involved high complexity decision making to prevent further life threatening deterioration of the patient 's condition and/or to evaluate & treat vital organ system(s) failure or risk of failure.
[2018-08-19] MEDS: ALBUTEROL SO4 2.5/IPRATROPIUM 0.5 INH SOL 3 ML VIAL.NEB. NEB SCH ×4 (07:50→20:50)
[2018-08-19] MEDS ORDERED: fentaNYL CITRATE 250 MCG/5 ML VIAL ONE ×3 (08:57→19:50)
[2018-08-19] MEDS: SPIRONOLACTONE 25 MG TABLET (FP) NGT SCH (10:00)
[2018-08-19] MEDS: MUPIROCIN 2% TOPICAL OINTMENT FOR DECOLONIZATION NS SCH ×2 (10:00→22:10)
[2018-08-19] MEDS: RANOLAZINE E.R. 500 MG TABLET (FP) PO SCH ×2 (10:10→21:12)
[2018-08-19] MEDS: CLOPIDOGREL BISULFATE 75 MG TABLET (FP) PO SCH (10:10)
[2018-08-19] MEDS: PANTOPRAZOLE SODIUM 40 MG VIAL IVPUSH SCH (10:10)
[2018-08-19] MEDS: CHLORHEXIDINE GLUCONATE 0.12% 15ML CUP MM SCH ×2 (10:10→22:00)
[2018-08-19] MEDS: ABACAVIR/DOLUTEGRAVIR/LAMIVUDI (TRIUMEQ) TABLET -NF PO SCH (10:10)
[2018-08-19 10:46] LABS: ANISOCYTOSIS 0; MACROCYTOSIS 0; PLATELET ESTIMATE NORMAL
--- NOTE | 2018-08-19 11:11 | PN ---
Progress Note, Physician History of Present Illness: Remains sedated and intubated on ventilator support, tolerating enteral feeds, hemodynamics stable. - Current Medication List Current Medications: Active Medications Abacavir/Dolutegravir/Lamivudine (Triumeq (Non-Formulary)) 1 each PO DAILY [facility] Last Admin: 08/18/18 10:08 Dose: 1 each Acetaminophen (Tylenol Oral Solution -) 1,000 mg PO Q6H PRN PRN Reason: FEVER Last Admin: 08/19/18 01:05 Dose: 1,000 mg Albuterol Sulfate (Ventolin 0.083% Nebulizer Soln -) 1 amp NEB Q4H PRN PRN Reason: SHORT OF BREATH/WHEEZING Albuterol/Ipratropium (Duoneb -) 1 amp NEB RQID [facility] Last Admin: 08/19/18 07:50 Dose: 1 amp Carvedilol (Coreg -) 12.5 mg PO BID [facility] Last Admin: 08/18/18 21:20 Dose: 12.5 mg Chlorhexidine Gluconate (Peridex -) 15 ml MM BID [facility] Last Admin: 08/18/18 21:22 Dose: 15 ml Clopidogrel Bisulfate (Plavix -) 75 mg PO DAILY [facility] Last Admin: 08/18/18 10:04 Dose: 75 mg Heparin Sodium (Porcine) (Heparin -) 5,000 unit SQ TID [facility] Last Admin: 08/19/18 06:08 Dose: 5,000 unit Hydralazine HCl (Apresoline -) 50 mg NGT TID [facility] Last Admin: 08/19/18 06:08 Dose: Not Given Fentanyl 500 mcg/ Dextrose 100 mls @ 5 mls/hr IVPB TITR [facility]; Protocol Last Admin: 08/18/18 20:30 Dose: 110 mcg/hr, 22 mls/hr Vancomycin HCl (Vancomycin 1 Gm Premix -) 1 gm in 200 mls @ 133.333 mls/hr IVPB BID@0700,1900 [facility]; Protocol Last Admin: 08/19/18 06:26 Dose: 133.333 mls/hr Piperacillin Sod/Tazobactam (Sod 3.375 gm/ Dextrose) 50 mls @ 100 mls/hr IVPB Q8H-IV [facility]; Protocol Last Admin: 08/19/18 01:03 Dose: 100 mls/hr Midazolam HCl 100 mg/ Sodium (Chloride) 100 mls @ 1 mls/hr IVPB TITR [facility]; Protocol Last Titration: 08/18/18 19:23 Dose: 5 mg/hr, 5 mls/hr Dexmedetomidine HCl 200 mcg/ (Sodium Chloride) 50 mls @ 20.58 mls/hr IVPB TITR [facility] Propofol (Diprivan -) 1,000,000 mcg in 100 mls @ 1.647 mls/hr IVPB TITR [facility]; Protocol Last Titration: 08/18/18 19:22 Dose: 60 mcg/kg/min, 19.764 mls/hr Losartan Potassium (Cozaar -) 50 mg PO BID [facility] Last Admin: 08/18/18 21:20 Dose: 50 mg Methylprednisolone Sodium Succinate (Solu-Medrol -) 40 mg IVPUSH Q8H-IV [facility] Last Admin: 08/19/18 01:03 Dose: 40 mg Midazolam HCl (Versed -) 2 mg IVPUSH Q3H PRN PRN Reason: AGITATION Last Admin: 08/17/18 12:00 Dose: 2 mg Mupirocin (Bactroban Ointment (For Decolonization) -) 1 applic NS BID [facility] Stop: 08/22/18 21:59 Last Admin: 08/18/18 21:23 Dose: 1 applic Pantoprazole Sodium (Protonix Iv) 40 mg IVPUSH DAILY [facility] Last Admin: 08/18/18 10:03 Dose: 40 mg Polyethylene Glycol (Miralax (For Daily Use) -) 17 gm NGT DAILY [facility] Last Admin: 08/18/18 10:02 Dose: Not Given Ranolazine (Ranexa -) 500 mg PO BID [facility] Last Admin: 08/18/18 21:20 Dose: 500 mg Spironolactone (Aldactone -) 25 mg NGT DAILY [facility] Last Admin: 08/18/18 10:10 Dose: 25 mg - Objective Vital Signs: Vital Signs Temperature 99.5 F 08/19/18 00:00 Pulse Rate 96 H 08/19/18 08:49 Respiratory Rate 28 H 08/19/18 08:49 Blood Pressure 104/63 08/19/18 08:49 O2 Sat by Pulse Oximetry (%) 98 08/19/18 08:30 Constitutional: Yes: No Distress, Calm, Thin Neck: Yes: Supple Cardiovascular: Yes: Regular Rate and Rhythm Respiratory: Yes: Intubated, Mechanically Ventilated, Rhonchi Gastrointestinal: Yes: Normal Bowel Sounds, Soft Edema: No Labs: CBC, BMP 08/19/18 05:30 08/19/18 05:30 INR, PTT INR 1.49 (0.83-1.09) H 08/08/18 19:37 - ....Imaging Chest X-ray: Report Reviewed (Bilateral infiltrates) Problem List - Problems (1) Altered mental status, unspecified Code(s): R41.82 - ALTERED MENTAL STATUS, UNSPECIFIED Qualifiers: Altered mental status type: somnolence Qualified Code(s): R40.0 - Somnolence (2) CHF (congestive heart failure) Code(s): I50.9 - HEART FAILURE, UNSPECIFIED Qualifiers: Heart failure type: diastolic Heart failure chronicity: chronic Qualified Code(s): I50.32 - Chronic diastolic (congestive) heart failure (3) COPD with acute exacerbation Code(s): J44.1 - CHRONIC OBSTRUCTIVE PULMONARY DISEASE W (ACUTE) EXACERBATION (4) Elevated troponin I level Code(s): R74.8 - ABNORMAL LEVELS OF OTHER SERUM ENZYMES (5) Respiratory acidosis Code(s): E87.2 - ACIDOSIS (6) CAD (coronary artery disease) Code(s): I25.10 - ATHSCL HEART DISEASE OF [place] CORONARY ARTERY W/O ANG PCTRS Qualifiers: Coronary Disease-Associated Artery/Lesion type: [place] artery [place] vs. transplanted heart: [place] heart Associated angina: without angina Qualified Code(s): I25.10 - Atherosclerotic heart disease of [place] coronary artery without angina pectoris (7) Asymptomatic cholelithiasis Code(s): K80.20 - CALCULUS OF GALLBLADDER W/O CHOLECYSTITIS W/O OBSTRUCTION (8) Cor pulmonale, chronic Code(s): I27.81 - COR PULMONALE (CHRONIC) (9) HIV Code(s): Z21 - ASYMPTOMATIC HUMAN IMMUNODEFICIENCY VIRUS INFECTION STATUS (10) HTN (hypertension) Code(s): I10 - ESSENTIAL (PRIMARY) HYPERTENSION Qualifiers: Hypertension type: essential hypertension Qualified Code(s): I10 - Essential (primary) hypertension (11) Hyperlipidemia Code(s): E78.5 - HYPERLIPIDEMIA, UNSPECIFIED Qualifiers: Hyperlipidemia type: pure hypercholesterolemia Qualified Code(s): E78.00 - Pure hypercholesterolemia, unspecified; E78.0 - Pure hypercholesterolemia (12) PVD (peripheral vascular disease) Code(s): I73.9 - PERIPHERAL VASCULAR DISEASE, UNSPECIFIED (13) S/P CABG (coronary artery bypass graft) Code(s): Z95.1 - PRESENCE OF AORTOCORONARY BYPASS GRAFT Assessment/Plan Echo: 07/06/2018 Mod cLVH with preserved LV fxn, mod-severe RITIKA, severe TR, RVSP >60, RV volume overload with mod decreased RV fxn 1. Acute on Chronic Hypoxic and Hypercapneic Respiratory Failure - mechanical ventilation 2. Acute exacerbation of chronic obstructive pulmonary disease 3. Right Heart Failure/Volume Overload with Severe Pulmonary HTN 4. Diastolic dysfunction 5. CAD s/p CABG, demand ischemia 7. HTN 8. Hypercholesterolemia 9. HIV and Hepatitis C 10. PAD s/p SFA stent 11. Pre-renal Acute on CKD improving, hyperkalemia and hyponatremia 12. Toxic metabolic encephelopathy 13. Cholelithiasis PLAN: 1. Continue Aldactone 25 mg QD and Losartan 50 mg BID as tolerated 2. Continue Carvedilol 12.5 mg BID, Plavix 75 mg QD, Hydralazine 50 mg TID, and Ranexa 500 mg BID as tolerated (via NG), Lipitor held. 3. IV steroid taper with GI protection, bronchodilator and vent wean as per critical care team. 4. Continue antibiotic coverage 5. DVT prophylaxis and enteral feeds
--- NOTE | 2018-08-19 11:12 | PN ---
Teaching Attending Note Name of Resident: Andrez Tolentino ATTENDING PHYSICIAN STATEMENT I saw and evaluated the patient. I reviewed the resident's note and discussed the case with the resident. I agree with the resident's findings and plan as documented. SUBJECTIVE: Patient seen and examined in the ICU. Remains intubated. AC Mode of vent. Was placed 70% FiO2 overnight and now reduced to 50% with PEEP 7 with adequate oxygenation. No pressors. Flow loops remain improved for obstructive process. CXR: Increased bilateral infiltrates OBJECTIVE: Intake & Output 08/16/18 08/17/18 08/18/18 08/19/18 23:59 23:59 23:59 23:59 Intake Total 3834 3465.2 1705 522 Output Total 1900 2150 1050 300 Balance 1934 1315.2 655 222 Weight 120 lb 5.958 oz 120 lb 5.958 oz 121 lb 0.54 oz 122 lb 9.232 oz Last Vital Signs Temp Pulse Resp BP Pulse Ox 99.5 F 96 H 28 H 104/63 98 08/19/18 00:00 08/19/18 08:49 08/19/18 08:49 08/19/18 08:49 08/19/18 08:30 Active Medications Abacavir/Dolutegravir/Lamivudine (Triumeq (Non-Formulary)) 1 each PO DAILY [facility] Last Admin: 08/18/18 10:08 Dose: 1 each Acetaminophen (Tylenol Oral Solution -) 1,000 mg PO Q6H PRN PRN Reason: FEVER Last Admin: 08/19/18 01:05 Dose: 1,000 mg Albuterol Sulfate (Ventolin 0.083% Nebulizer Soln -) 1 amp NEB Q4H PRN PRN Reason: SHORT OF BREATH/WHEEZING Albuterol/Ipratropium (Duoneb -) 1 amp NEB RQID [facility] Last Admin: 08/19/18 07:50 Dose: 1 amp Carvedilol (Coreg -) 12.5 mg PO BID [facility] Last Admin: 08/18/18 21:20 Dose: 12.5 mg Chlorhexidine Gluconate (Peridex -) 15 ml MM BID [facility] Last Admin: 08/18/18 21:22 Dose: 15 ml Clopidogrel Bisulfate (Plavix -) 75 mg PO DAILY [facility] Last Admin: 08/18/18 10:04 Dose: 75 mg Heparin Sodium (Porcine) (Heparin -) 5,000 unit SQ TID [facility] Last Admin: 08/19/18 06:08 Dose: 5,000 unit Hydralazine HCl (Apresoline -) 50 mg NGT TID [facility] Last Admin: 08/19/18 06:08 Dose: Not Given Fentanyl 500 mcg/ Dextrose 100 mls @ 5 mls/hr IVPB TITR [facility]; Protocol Last Admin: 08/18/18 20:30 Dose: 110 mcg/hr, 22 mls/hr Vancomycin HCl (Vancomycin 1 Gm Premix -) 1 gm in 200 mls @ 133.333 mls/hr IVPB BID@0700,1900 [facility]; Protocol Last Admin: 08/19/18 06:26 Dose: 133.333 mls/hr Piperacillin Sod/Tazobactam (Sod 3.375 gm/ Dextrose) 50 mls @ 100 mls/hr IVPB Q8H-IV [facility]; Protocol Last Admin: 08/19/18 01:03 Dose: 100 mls/hr Midazolam HCl 100 mg/ Sodium (Chloride) 100 mls @ 1 mls/hr IVPB TITR [facility]; Protocol Last Titration: 08/18/18 19:23 Dose: 5 mg/hr, 5 mls/hr Dexmedetomidine HCl 200 mcg/ (Sodium Chloride) 50 mls @ 20.58 mls/hr IVPB TITR [facility] Propofol (Diprivan -) 1,000,000 mcg in 100 mls @ 1.647 mls/hr IVPB TITR [facility]; Protocol Last Titration: 08/18/18 19:22 Dose: 60 mcg/kg/min, 19.764 mls/hr Losartan Potassium (Cozaar -) 50 mg PO BID [facility] Last Admin: 08/18/18 21:20 Dose: 50 mg Methylprednisolone Sodium Succinate (Solu-Medrol -) 40 mg IVPUSH Q8H-IV [facility] Last Admin: 08/19/18 01:03 Dose: 40 mg Midazolam HCl (Versed -) 2 mg IVPUSH Q3H PRN PRN Reason: AGITATION Last Admin: 08/17/18 12:00 Dose: 2 mg Mupirocin (Bactroban Ointment (For Decolonization) -) 1 applic NS BID [facility] Stop: 08/22/18 21:59 Last Admin: 08/18/18 21:23 Dose: 1 applic Pantoprazole Sodium (Protonix Iv) 40 mg IVPUSH DAILY [facility] Last Admin: 08/18/18 10:03 Dose: 40 mg Polyethylene Glycol (Miralax (For Daily Use) -) 17 gm NGT DAILY [facility] Last Admin: 08/18/18 10:02 Dose: Not Given Ranolazine (Ranexa -) 500 mg PO BID [facility] Last Admin: 08/18/18 21:20 Dose: 500 mg Spironolactone (Aldactone -) 25 mg NGT DAILY [facility] Last Admin: 08/18/18 10:10 Dose: 25 mg Gen: intubated, sedated Heart: RRR Lung: No active wheeze appreciated, scattered rhonchi Abd: soft, nontender Ext: no edema Laboratory Results - last 24 hr 08/18/18 08/18/18 08/18/18 05:30 11:00 11:53 WBC RBC Hgb Hct MCV MCH MCHC RDW Plt Count MPV Absolute Neuts (auto) Neutrophils % Neutrophils % (Manual) 93.9 H Band Neutrophils % 0.0 Lymphocytes % Lymphocytes % (Manual) 1.0 L D Monocytes % Monocytes % (Manual) 5 Eosinophils % Eosinophils % (Manual) 0.0 Basophils % Basophils % (Manual) 0.0 Myelocytes % (Man) 0 Promyelocytes % (Man) 0 Blast Cells % (Manual) 0 Nucleated RBC % Metamyelocytes 0 D Hypochromia 0 Platelet Estimate Normal Polychromasia 0 Poikilocytosis 0 Anisocytosis 1+ Microcytosis 0 Macrocytosis 1+ Sodium Potassium Chloride Carbon Dioxide Anion Gap BUN Creatinine Creat Clearance w eGFR POC Glucometer 196 Random Glucose Calcium Phosphorus Magnesium Urine Color Yellow Urine Appearance Clear Urine pH 5.5 Ur Specific [place] 1.020 Urine Protein Trace Urine Glucose (UA) Negative Urine Ketones Negative Urine Blood Negative Urine Nitrite Negative Urine Bilirubin Negative Urine Urobilinogen 0.2 Ur Leukocyte Esterase Negative 08/19/18 08/19/18 05:30 05:30 WBC 32.5 H* RBC 3.20 L Hgb 9.6 L Hct 29.8 L MCV 93.3 MCH 30.2 MCHC 32.3 RDW 15.5 Plt Count 240 MPV 8.9 Absolute Neuts (auto) 29.5 H Neutrophils % 90.7 H Neutrophils % (Manual) Band Neutrophils % Lymphocytes % 1.6 L D Lymphocytes % (Manual) Monocytes % 7.3 Monocytes % (Manual) Eosinophils % 0.0 Eosinophils % (Manual) Basophils % 0.4 Basophils % (Manual) Myelocytes % (Man) Promyelocytes % (Man) Blast Cells % (Manual) Nucleated RBC % 0 Metamyelocytes Hypochromia Platelet Estimate Polychromasia Poikilocytosis Anisocytosis Microcytosis Macrocytosis Sodium 143 Potassium 4.3 Chloride 102 Carbon Dioxide 37 H Anion Gap 3 L BUN 37 H Creatinine 0.8 Creat Clearance w eGFR 71.55 POC Glucometer Random Glucose 227 H Calcium 9.5 Phosphorus 3.6 Magnesium 2.0 Urine Color Urine Appearance Urine pH Ur Specific [place] Urine Protein Urine Glucose (UA) Urine Ketones Urine Blood Urine Nitrite Urine Bilirubin Urine Urobilinogen Ur Leukocyte Esterase ASSESSMENT AND PLAN: Acute on Chronic Hypoxic and Hypercapneic Respiratory Failure Acute COPD Exacerbation Acute Kidney Injury Altered Mental Status LV Diastolic/Systolic Dysfunction Severe Pulmonary HTN CAD s/p CABG HIV PAD HTN - Vent settings adjusted - Will D/W ID for broadening ABX coverage - Wean Medrol - Inhaled bronchodilators standing & PRN - Enteral feeds - Monitor lytes - Daily sedation vacations - Wean trials today with increased PS as tolerated - DVT prophylaxis - May need Trach - continue ICU monitoring Dr Suero Critical care time spent in reviewing chart, evaluating patient and formulating plan 36 min
[2018-08-19] MEDS: POLYETHYLENE GLYCOL 3350 119 GM BTL NGT SCH (11:24)
[2018-08-19] MEDS: CARVEDILOL 12.5 MG TABLET (FP) PO SCH ×2 (11:24→21:05)
[2018-08-19] MEDS: LOSARTAN POTASSIUM 50 MG TABLET (FP) PO SCH ×2 (11:24→21:05)
--- NOTE | 2018-08-19 14:54 | PN ---
Progress Note (short form) - Note Progress Note: WORSENING CLINICAL CONDITION INCREASED O2 REQUIREMENT, WORSENING CXR SEDATED ON VENTILATOR WBC MARKEDLY INCREASED BC MSSA SPUTUM C/S MSSA/ PSEUDOMONAS
--- NOTE | 2018-08-19 14:59 | PN ---
Progress Note, Physician History of Present Illness: WORSENING CLINICAL CONDITION INCREASED O2 REQUIREMENT, WORSENING CXR SEDATED ON VENTILATOR LOW GRADE FEVER WBC MARKEDLY INCREASED BC MSSA SPUTUM C/S MSSA PSEUDOMONAS - Current Medication List Current Medications: Active Medications Abacavir/Dolutegravir/Lamivudine (Triumeq (Non-Formulary)) 1 each PO DAILY [facility] Last Admin: 08/19/18 10:10 Dose: 1 each Acetaminophen (Tylenol Oral Solution -) 1,000 mg PO Q6H PRN PRN Reason: FEVER Last Admin: 08/19/18 01:05 Dose: 1,000 mg Albuterol Sulfate (Ventolin 0.083% Nebulizer Soln -) 1 amp NEB Q4H PRN PRN Reason: SHORT OF BREATH/WHEEZING Albuterol/Ipratropium (Duoneb -) 1 amp NEB RQID [facility] Last Admin: 08/19/18 11:40 Dose: 1 amp Carvedilol (Coreg -) 12.5 mg PO BID [facility] Last Admin: 08/19/18 11:24 Dose: Not Given Chlorhexidine Gluconate (Peridex -) 15 ml MM BID [facility] Last Admin: 08/19/18 10:10 Dose: 15 ml Clopidogrel Bisulfate (Plavix -) 75 mg PO DAILY [facility] Last Admin: 08/19/18 10:10 Dose: 75 mg Heparin Sodium (Porcine) (Heparin -) 5,000 unit SQ TID [facility] Last Admin: 08/19/18 06:08 Dose: 5,000 unit Hydralazine HCl (Apresoline -) 50 mg NGT TID [facility] Last Admin: 08/19/18 06:08 Dose: Not Given Fentanyl 500 mcg/ Dextrose 100 mls @ 5 mls/hr IVPB TITR [facility]; Protocol Last Admin: 08/18/18 20:30 Dose: 110 mcg/hr, 22 mls/hr Vancomycin HCl (Vancomycin 1 Gm Premix -) 1 gm in 200 mls @ 133.333 mls/hr IVPB BID@0700,1900 [facility]; Protocol Last Admin: 08/19/18 06:26 Dose: 133.333 mls/hr Piperacillin Sod/Tazobactam (Sod 3.375 gm/ Dextrose) 50 mls @ 100 mls/hr IVPB Q8H-IV [facility]; Protocol Last Admin: 08/19/18 10:35 Dose: 100 mls/hr Midazolam HCl 100 mg/ Sodium (Chloride) 100 mls @ 1 mls/hr IVPB TITR [facility]; Protocol Last Titration: 08/18/18 19:23 Dose: 5 mg/hr, 5 mls/hr Dexmedetomidine HCl 200 mcg/ (Sodium Chloride) 50 mls @ 20.58 mls/hr IVPB TITR [facility] Propofol (Diprivan -) 1,000,000 mcg in 100 mls @ 1.647 mls/hr IVPB TITR [facility]; Protocol Last Titration: 08/18/18 19:22 Dose: 60 mcg/kg/min, 19.764 mls/hr Losartan Potassium (Cozaar -) 50 mg PO BID [facility] Last Admin: 08/19/18 11:24 Dose: Not Given Methylprednisolone Sodium Succinate (Solu-Medrol -) 40 mg IVPUSH Q8H-IV [facility] Last Admin: 08/19/18 10:10 Dose: 40 mg Midazolam HCl (Versed -) 2 mg IVPUSH Q3H PRN PRN Reason: AGITATION Last Admin: 08/17/18 12:00 Dose: 2 mg Mupirocin (Bactroban Ointment (For Decolonization) -) 1 applic NS BID [facility] Stop: 08/22/18 21:59 Last Admin: 08/19/18 10:00 Dose: 1 applic Pantoprazole Sodium (Protonix Iv) 40 mg IVPUSH DAILY [facility] Last Admin: 08/19/18 10:10 Dose: 40 mg Polyethylene Glycol (Miralax (For Daily Use) -) 17 gm NGT DAILY [facility] Last Admin: 08/19/18 11:24 Dose: Not Given Ranolazine (Ranexa -) 500 mg PO BID [facility] Last Admin: 08/19/18 10:10 Dose: 500 mg Spironolactone (Aldactone -) 25 mg NGT DAILY [facility] Last Admin: 08/19/18 10:00 Dose: 25 mg - Objective Vital Signs: Vital Signs Temperature 99.5 F 08/19/18 00:00 Pulse Rate 93 H 08/19/18 13:03 Respiratory Rate 24 H 08/19/18 13:55 Blood Pressure 105/65 08/19/18 13:03 O2 Sat by Pulse Oximetry (%) 98 08/19/18 12:50 Constitutional: Yes: No Distress Cardiovascular: Yes: Regular Rate and Rhythm, Tachycardia, S1, S2 Respiratory: Yes: Mechanically Ventilated Gastrointestinal: Yes: Normal Bowel Sounds, Soft. No: Tenderness Edema: No Labs: CBC, BMP 08/19/18 05:30 08/19/18 05:30 INR, PTT INR 1.49 (0.83-1.09) H 08/08/18 19:37 Assessment/Plan SEPSIS MSSA BACTEREMIA ? PNEUMONIA ?ENDOCARDITIS RESPIRATORY FAILURE/ COPD EXACERBATION HCAP MARKED LEUKOCYTOSIS HIV+ + STOOL GNR ? SIGNIFICANCE REPEAT BC OBTAIN ECHOCARDIOGRAM CHANGE ANTIBIOTIC COVERAGE NAFCILLIN/ CEFTAZIDIME HEMODYNAMIC/ VENTILATORY SUPPORT REPEAT CD4 CONTINUE ART CRITICAL CARE TIME 35MIN
[2018-08-19] MEDS: MIDAZOLAM 100 MG in SODIUM CHLORIDE 100 ML IVPB SCH (15:34)
[2018-08-19] MEDS: FENTANYL INJECTION 500 MCG in DEXTROSE 5%-WATER - 90 ML IVPB SCH (15:34)
[2018-08-19] MEDS ORDERED: NAFCILLIN - 2 GM in DEXTROSE 5%-WATER - 100 ML IVPB SCH (15:45)
[2018-08-19] MEDS: PROPOFOL 1,000,000 MCG/100 ML VIAL IVPB SCH (16:03)
--- NOTE | 2018-08-19 16:38 | PN ---
Progress Note, Physician History of Present Illness: Pt seen and examined at bedside. She remains in the ICU. She remains intubated. - Current Medication List Current Medications: Active Medications Abacavir/Dolutegravir/Lamivudine (Triumeq (Non-Formulary)) 1 each PO DAILY [facility] Last Admin: 08/19/18 10:10 Dose: 1 each Acetaminophen (Tylenol Oral Solution -) 1,000 mg PO Q6H PRN PRN Reason: FEVER Last Admin: 08/19/18 01:05 Dose: 1,000 mg Albuterol Sulfate (Ventolin 0.083% Nebulizer Soln -) 1 amp NEB Q4H PRN PRN Reason: SHORT OF BREATH/WHEEZING Albuterol/Ipratropium (Duoneb -) 1 amp NEB RQID [facility] Last Admin: 08/19/18 16:09 Dose: 1 amp Carvedilol (Coreg -) 12.5 mg PO BID [facility] Last Admin: 08/19/18 11:24 Dose: Not Given Chlorhexidine Gluconate (Peridex -) 15 ml MM BID [facility] Last Admin: 08/19/18 10:10 Dose: 15 ml Clopidogrel Bisulfate (Plavix -) 75 mg PO DAILY [facility] Last Admin: 08/19/18 10:10 Dose: 75 mg Heparin Sodium (Porcine) (Heparin -) 5,000 unit SQ TID [facility] Last Admin: 08/19/18 14:00 Dose: 5,000 unit Hydralazine HCl (Apresoline -) 50 mg NGT TID [facility] Last Admin: 08/19/18 15:33 Dose: Not Given Dexmedetomidine HCl 200 mcg/ (Sodium Chloride) 50 mls @ 20.58 mls/hr IVPB TITR [facility] Propofol (Diprivan -) 1,000,000 mcg in 100 mls @ 1.647 mls/hr IVPB TITR [facility]; Protocol Last Admin: 08/19/18 16:03 Dose: 60 mcg/kg/min, 19.764 mls/hr Nafcillin Sodium 2 gm/ (Dextrose) 100 mls @ 100 mls/hr IVPB Q4H-IV [facility]; Protocol Last Admin: 08/19/18 16:04 Dose: 100 mls/hr Ceftazidime 2 gm/ Dextrose 100 mls @ 200 mls/hr IVPB Q8H-IV [facility]; Protocol Losartan Potassium (Cozaar -) 50 mg PO BID [facility] Last Admin: 08/19/18 11:24 Dose: Not Given Methylprednisolone Sodium Succinate (Solu-Medrol -) 40 mg IVPUSH Q8H-IV [facility] Last Admin: 08/19/18 10:10 Dose: 40 mg Midazolam HCl (Versed -) 2 mg IVPUSH Q3H PRN PRN Reason: AGITATION Last Admin: 08/17/18 12:00 Dose: 2 mg Mupirocin (Bactroban Ointment (For Decolonization) -) 1 applic NS BID [facility] Stop: 08/22/18 21:59 Last Admin: 08/19/18 10:00 Dose: 1 applic Pantoprazole Sodium (Protonix Iv) 40 mg IVPUSH DAILY [facility] Last Admin: 08/19/18 10:10 Dose: 40 mg Ranolazine (Ranexa -) 500 mg PO BID [facility] Last Admin: 08/19/18 10:10 Dose: 500 mg Spironolactone (Aldactone -) 25 mg NGT DAILY [facility] Last Admin: 08/19/18 10:00 Dose: 25 mg - Objective Vital Signs: Vital Signs Temperature 99.5 F 08/19/18 00:00 Pulse Rate 102 H 08/19/18 15:38 Respiratory Rate 24 H 08/19/18 16:12 Blood Pressure 92/61 08/19/18 15:38 O2 Sat by Pulse Oximetry (%) 98 08/19/18 12:50 Constitutional: Yes: Calm Eyes: Yes: Conjunctiva Clear HENT: Yes: Atraumatic Neck: Yes: Supple Cardiovascular: Yes: S1, S2 Respiratory: Yes: Mechanically Ventilated Gastrointestinal: Yes: Soft Genitourinary: Yes: Torres Present Musculoskeletal: Yes: Muscle Weakness Edema: Yes Edema: LUE: Trace, RUE: Trace Neurological: Yes: Lethargy Labs: CBC, BMP 08/19/18 05:30 08/19/18 05:30 INR, PTT INR 1.49 (0.83-1.09) H 08/08/18 19:37 Problem List - Problems (1) Acute renal failure Code(s): N17.9 - ACUTE KIDNEY FAILURE, UNSPECIFIED Qualifiers: Acute renal failure type: unspecified Qualified Code(s): N17.9 - Acute kidney failure, unspecified (2) Altered mental status, unspecified Code(s): R41.82 - ALTERED MENTAL STATUS, UNSPECIFIED Qualifiers: Altered mental status type: somnolence Qualified Code(s): R40.0 - Somnolence (3) CHF (congestive heart failure) Code(s): I50.9 - HEART FAILURE, UNSPECIFIED Qualifiers: Heart failure type: diastolic Heart failure chronicity: chronic Qualified Code(s): I50.32 - Chronic diastolic (congestive) heart failure (4) COPD with acute exacerbation Code(s): J44.1 - CHRONIC OBSTRUCTIVE PULMONARY DISEASE W (ACUTE) EXACERBATION (5) Hyperkalemia Code(s): E87.5 - HYPERKALEMIA Assessment/Plan Current Medications Generic Name Dose Route Start Last Admin Trade Name Freq PRN Reason Stop Dose Admin Abacavir/Dolutegravir/Lamivudine 1 each 08/10/18 14:00 08/19/18 10:10 Triumeq (Non-Formulary) PO 1 each DAILY [facility] Administration Acetaminophen 1,000 mg 08/16/18 16:11 08/19/18 01:05 Tylenol Oral Solution - PO 1,000 mg Q6H PRN Administration FEVER Albuterol Sulfate 1 amp 08/15/18 12:32 Ventolin 0.083% Nebulizer Soln - NEB Q4H PRN SHORT OF BREATH/WHEEZING Albuterol/Ipratropium 1 amp 08/17/18 16:00 08/19/18 16:09 Duoneb - NEB 1 amp RQID [facility] Administration Carvedilol 12.5 mg 08/10/18 10:00 08/19/18 11:24 Coreg - PO Not Given BID [facility] Chlorhexidine Gluconate 15 ml 08/17/18 22:00 08/19/18 10:10 Peridex - MM 15 ml BID [facility] Administration Clopidogrel Bisulfate 75 mg 08/10/18 10:00 08/19/18 10:10 Plavix - PO 75 mg DAILY [facility] Administration Heparin Sodium (Porcine) 5,000 unit 08/17/18 14:00 08/19/18 14:00 Heparin - SQ 5,000 unit TID [facility] Administration Hydralazine HCl 50 mg 08/11/18 14:08 08/19/18 15:33 Apresoline - NGT Not Given TID [facility] Dexmedetomidine HCl 200 mcg/ 50 mls @ 20.58 mls/hr 08/18/18 12:15 Sodium Chloride IVPB TITR [facility] 1.5 MCG/KG/HR Propofol 1,000,000 mcg in 100 mls @ 1.647 mls/hr 08/18/18 15:15 08/19/18 16: 03 Diprivan - IVPB 60 mcg/kg/min TITR [facility] 19.764 mls/hr Administration Protocol 5 MCG/KG/MIN Nafcillin Sodium 2 gm/ 100 mls @ 100 mls/hr 08/19/18 15:45 08/19/18 16:04 Dextrose IVPB 100 mls/hr Q4H-IV [facility] Administration Protocol Ceftazidime 2 gm/ Dextrose 100 mls @ 200 mls/hr 08/19/18 15:45 IVPB Q8H-IV [facility] Protocol Losartan Potassium 50 mg 08/11/18 13:00 08/19/18 11:24 Cozaar - PO Not Given BID [facility] Methylprednisolone Sodium Succinate 40 mg 08/17/18 12:15 08/19/18 10:10 Solu-Medrol - IVPUSH 40 mg Q8H-IV [facility] Administration Midazolam HCl 2 mg 08/14/18 20:55 08/17/18 12:00 Versed - IVPUSH 2 mg Q3H PRN Administration AGITATION Mupirocin 1 applic 08/17/18 22:00 08/19/18 10:00 Bactroban Ointment (For Decolonization) - NS 08/22/18 21:59 1 applic BID [facility] Administration Pantoprazole Sodium 40 mg 08/11/18 13:15 08/19/18 10:10 Protonix Iv IVPUSH 40 mg DAILY [facility] Administration Ranolazine 500 mg 08/10/18 11:30 08/19/18 10:10 Ranexa - PO 500 mg BID [facility] Administration Spironolactone 25 mg 08/11/18 14:15 08/19/18 10:00 Aldactone - NGT 25 mg DAILY [facility] Administration Impression 1. KRISTIAN 2. Hyperkalemia 3. HIV 4. hyponatremia 5. altered mental status 6. pulm HTN 7. htn 8. pvd 9. resp acidosis 10. resp failure requiring intubation Plan - monitor lytes - monitor renal function - vent support - steroids can contribute to elevated bun
[2018-08-19] MEDS: CEFTAZIDIME PENTAHYDRATE 2 GM in DEXTROSE 5%-WATER - 100 ML IVPB SCH ×2 (17:28→21:30)
--- NOTE | 2018-08-19 19:27 | PN ---
Progress Note, Physician History of Present Illness: intubated - Current Medication List Current Medications: Active Medications Abacavir/Dolutegravir/Lamivudine (Triumeq (Non-Formulary)) 1 each PO DAILY [facility] Last Admin: 08/19/18 10:10 Dose: 1 each Acetaminophen (Tylenol Oral Solution -) 1,000 mg PO Q6H PRN PRN Reason: FEVER Last Admin: 08/19/18 01:05 Dose: 1,000 mg Albuterol Sulfate (Ventolin 0.083% Nebulizer Soln -) 1 amp NEB Q4H PRN PRN Reason: SHORT OF BREATH/WHEEZING Albuterol/Ipratropium (Duoneb -) 1 amp NEB RQID [facility] Last Admin: 08/19/18 16:09 Dose: 1 amp Carvedilol (Coreg -) 12.5 mg PO BID [facility] Last Admin: 08/19/18 11:24 Dose: Not Given Chlorhexidine Gluconate (Peridex -) 15 ml MM BID [facility] Last Admin: 08/19/18 10:10 Dose: 15 ml Clopidogrel Bisulfate (Plavix -) 75 mg PO DAILY [facility] Last Admin: 08/19/18 10:10 Dose: 75 mg Heparin Sodium (Porcine) (Heparin -) 5,000 unit SQ TID [facility] Last Admin: 08/19/18 14:00 Dose: 5,000 unit Hydralazine HCl (Apresoline -) 50 mg NGT TID [facility] Last Admin: 08/19/18 15:33 Dose: Not Given Dexmedetomidine HCl 200 mcg/ (Sodium Chloride) 50 mls @ 20.58 mls/hr IVPB TITR [facility] Propofol (Diprivan -) 1,000,000 mcg in 100 mls @ 1.647 mls/hr IVPB TITR [facility]; Protocol Last Admin: 08/19/18 16:03 Dose: 60 mcg/kg/min, 19.764 mls/hr Ceftazidime 2 gm/ Dextrose 100 mls @ 200 mls/hr IVPB Q8H-IV [facility]; Protocol Last Admin: 08/19/18 17:28 Dose: 200 mls/hr Nafcillin Sodium 2 gm/ (Dextrose) 100 mls @ 100 mls/hr IVPB Q4H-IV [facility]; Protocol Losartan Potassium (Cozaar -) 50 mg PO BID [facility] Last Admin: 08/19/18 11:24 Dose: Not Given Methylprednisolone Sodium Succinate (Solu-Medrol -) 40 mg IVPUSH Q8H-IV [facility] Last Admin: 08/19/18 17:28 Dose: 40 mg Midazolam HCl (Versed -) 2 mg IVPUSH Q3H PRN PRN Reason: AGITATION Last Admin: 08/17/18 12:00 Dose: 2 mg Mupirocin (Bactroban Ointment (For Decolonization) -) 1 applic NS BID [facility] Stop: 08/22/18 21:59 Last Admin: 08/19/18 10:00 Dose: 1 applic Pantoprazole Sodium (Protonix Iv) 40 mg IVPUSH DAILY [facility] Last Admin: 08/19/18 10:10 Dose: 40 mg Ranolazine (Ranexa -) 500 mg PO BID [facility] Last Admin: 08/19/18 10:10 Dose: 500 mg Spironolactone (Aldactone -) 25 mg NGT DAILY [facility] Last Admin: 08/19/18 10:00 Dose: 25 mg - Objective Vital Signs: Vital Signs Temperature 99.5 F 08/19/18 00:00 Pulse Rate 93 H 08/19/18 19:00 Respiratory Rate 26 H 08/19/18 19:00 Blood Pressure 130/72 08/19/18 19:00 O2 Sat by Pulse Oximetry (%) 98 08/19/18 12:50 Constitutional: Yes: No Distress HENT: Yes: Atraumatic Neck: Yes: Supple Cardiovascular: Yes: Regular Rate and Rhythm Respiratory: Yes: Rhonchi Gastrointestinal: Yes: Normal Bowel Sounds Extremities: Yes: WNL Edema: No Peripheral Pulses WNL: Yes Neurological: Yes: Other (intubated) Labs: CBC, BMP 08/19/18 05:30 INR, PTT INR 1.49 (0.83-1.09) H 08/08/18 19:37 Problem List - Problems (1) Acute renal failure Assessment/Plan: monitor Code(s): N17.9 - ACUTE KIDNEY FAILURE, UNSPECIFIED Qualifiers: Acute renal failure type: unspecified Qualified Code(s): N17.9 - Acute kidney failure, unspecified (2) Altered mental status, unspecified Code(s): R41.82 - ALTERED MENTAL STATUS, UNSPECIFIED Qualifiers: Altered mental status type: somnolence Qualified Code(s): R40.0 - Somnolence (3) COPD with acute exacerbation Assessment/Plan: steroids duo nebs INTUBATED Code(s): J44.1 - CHRONIC OBSTRUCTIVE PULMONARY DISEASE W (ACUTE) EXACERBATION (4) Elevated troponin I level Code(s): R74.8 - ABNORMAL LEVELS OF OTHER SERUM ENZYMES (5) Hyperkalemia Code(s): E87.5 - HYPERKALEMIA (6) COPD (chronic obstructive pulmonary disease) Code(s): J44.9 - CHRONIC OBSTRUCTIVE PULMONARY DISEASE, UNSPECIFIED Qualifiers: (7) HIV Code(s): Z21 - ASYMPTOMATIC HUMAN IMMUNODEFICIENCY VIRUS INFECTION STATUS (8) HTN (hypertension) Assessment/Plan: monitor on meds Code(s): I10 - ESSENTIAL (PRIMARY) HYPERTENSION Qualifiers: Hypertension type: essential hypertension Qualified Code(s): I10 - Essential (primary) hypertension (9) Hyperlipidemia Code(s): E78.5 - HYPERLIPIDEMIA, UNSPECIFIED Qualifiers: Hyperlipidemia type: pure hypercholesterolemia Qualified Code(s): E78.00 - Pure hypercholesterolemia, unspecified; E78.0 - Pure hypercholesterolemia (10) PVD (peripheral vascular disease) Code(s): I73.9 - PERIPHERAL VASCULAR DISEASE, UNSPECIFIED (11) CHF (congestive heart failure) Code(s): I50.9 - HEART FAILURE, UNSPECIFIED Qualifiers: Heart failure type: diastolic Heart failure chronicity: chronic Qualified Code(s): I50.32 - Chronic diastolic (congestive) heart failure (12) Sepsis Assessment/Plan: on abx wbc markedly elevated Code(s): A41.9 - SEPSIS, UNSPECIFIED ORGANISM
[2018-08-19] MEDS: NAFCILLIN - 2 GM in DEXTROSE 5%-WATER - 100 ML IVPB SCH (21:12)
[2018-08-20] MEDS: CEFTAZIDIME PENTAHYDRATE 2 GM in DEXTROSE 5%-WATER - 100 ML IVPB SCH ×3 (01:10→18:10)
[2018-08-20] MEDS: NAFCILLIN - 2 GM in DEXTROSE 5%-WATER - 100 ML IVPB SCH ×6 (01:11→22:12)
[2018-08-20] MEDS: methylPREDNISolone NA SUCC 40 MG/1 ML VIAL IVPUSH SCH ×3 (01:12→18:10)
[2018-08-20] MEDS: DEXMEDETOMIDINE HCL 200 MCG in SODIUM CHLORIDE 48 ML IVPB SCH ×2 (02:00→08:28)
[2018-08-20] MEDS: hydrALAZINE HCL 50 MG TABLET (FP) NGT SCH ×4 (06:02→22:20)
[2018-08-20] MEDS: HEPARIN NA (PORCINE) 5,000 UNITS/ML 1ML VIAL SQ SCH ×3 (06:03→22:12)
[2018-08-20] MEDS ORDERED: PT OWN MED DRAWER 7, Y5N ONE ×7 (06:05→21:59)
[2018-08-20] MEDS: ACETAMINOPHEN 650 MG/20.3 ML ORAL SOLUTION (CUPS) PO PRN ×2 (06:20→14:00)
[2018-08-20 06:43] LABS: BASO % 0.1 % (0-2.0); HEMATOCRIT 27.7 % (32.4-45.2); HEMOGLOBIN 8.9 GM/dL (10.7-15.3); LYMPH % 1.5 % (8-40); MCH 29.8 pg (25.7-33.7); MCHC 32.2 g/dl (32.0-36.0); MEAN CELL VOLUME 92.8 fl (80-96); MONO % 4.5 % (3.8-10.2); NEUT % 93.9 % (42.8-82.8); PLATELET COUNT 237 K/MM3 (134-434); RBC 2.98 M/mm3 (3.60-5.2); RDW 15.7 % (11.6-15.6); WHITE BLOOD COUNT 23.4 K/mm3 (4.0-10.0)
[2018-08-20 07:09] LABS: ANION GAP 4 MMOL/L (8-16); BLOOD UREA NITROGEN 48 mg/dL (7-18); CALCIUM 9.3 mg/dL (8.5-10.1); CHLORIDE 102 mmol/L (98-107); CO2 35 mmol/L (21-32); CREATININE 0.8 mg/dL (0.55-1.3); GLUCOSE,RANDOM 212 mg/dL (74-106); MAGNESIUM 2.2 mg/dL (1.8-2.4); PHOSPHOROUS 4.2 mg/dL (2.5-4.9); POTASSIUM 4.8 mmol/L (3.5-5.1); SODIUM 140 mmol/L (136-145)
[2018-08-20 08:29] LABS: ANISOCYTOSIS 1+; PLATELET ESTIMATE NORMAL; TARGET CELLS 1+
[2018-08-20] MEDS: ALBUTEROL SO4 2.5/IPRATROPIUM 0.5 INH SOL 3 ML VIAL.NEB. NEB SCH ×4 (08:40→20:54)
[2018-08-20] MEDS: MIDAZOLAM HCL 2 MG/2 ML SINGLE DOSE VIAL IVPUSH PRN ×2 (08:58→22:35)
--- NOTE | 2018-08-20 08:58 | PN ---
Progress Note (short form) - Note Progress Note: remains intubated-since 08/10 +diarrhea switched to nafcillin and ceftazidime yesterday intermittent fevers continue Vital Signs Period Temp Pulse Resp BP Sys/Buck Pulse Ox Last 24 Hr 100.4 F-101 F 91-115 19-30 90-130/61-72 98-99 +et tube +NGT cor-tachy lungs decreased bs at bases abd soft,nt ext no edema CBC, BMP 08/20/18 05:30 08/20/18 05:30 Microbiology 08/15/18 10:18 Blood - Peripheral Venous Blood Culture - Final Staphylococcus Aureus 08/18/18 09:35 Blood - Peripheral Venous Blood Culture - Preliminary NO GROWTH OBTAINED AFTER 24 HOURS, INCUBATION TO CONTINUE FOR 4 DAYS. 08/18/18 09:25 Blood - Peripheral Venous Blood Culture - Preliminary NO GROWTH OBTAINED AFTER 24 HOURS, INCUBATION TO CONTINUE FOR 4 DAYS. 08/15/18 09:40 Blood - Peripheral Venous Blood Culture - Preliminary NO GROWTH OBTAINED AFTER 72 HOURS, INCUBATION TO CONTINUE FOR 2 DAYS. 08/18/18 14:15 Stool Salmonella/Shigella Culture - Preliminary Non Lactose Fermenting Gnb 08/18/18 14:15 Stool Yersinia Culture - Preliminary NO ENTERIC PATHOGENS, 24 HOURS, ON PRIMARY PLATES 08/18/18 14:15 Stool Vibrio Culture - Final NO GROWTH OF VIBRIO SPECIES OBTAINED 08/18/18 14:15 Stool Escherichia coli 0157 Culture - Final NO GROWTH OF E COLI 0157 OBTAINED 08/18/18 11:00 Sputum - Endotrachea Suction/Ventilator Gram Stain - Final 08/18/18 11:00 Sputum - Endotrachea Suction/Ventilator Sputum Culture - Preliminary Non Lactose Fermenting Gnb Non Lactose Fermenting Gnb#2 Lactose Fermenting Neg Bacilli Presumptive Mssa (Pbp2a Neg) 08/18/18 11:00 Urine - Urine Torres Urine Culture - Final NO GROWTH OBTAINED 08/13/18 17:00 Urine - Urine Torres Urine Culture - Final Escherichia Coli Klebsiella Pneumoniae Enterococcus Faecalis 08/13/18 16:00 Sputum - Endotracheal Suction W/O Vent Gram Stain - Final 08/13/18 16:00 Sputum - Endotracheal Suction W/O Vent Sputum Culture - Final Staphylococcus Aureus Pseudomonas Aeruginosa 08/08/18 19:37 Blood - Peripheral Venous Blood Culture - Final NO GROWTH AFTER 5 DAYS INCUBATION 08/08/18 19:37 Blood - Peripheral Venous Blood Culture - Final NO GROWTH AFTER 5 DAYS INCUBATION 08/08/18 20:39 Urine - Urine - Catheterized Urine Culture - Final NO GROWTH OBTAINED cxray bilateral infiltrates Current Medications Abacavir/Dolutegravir/Lamivudine (Triumeq (Non-Formulary)) 1 each PO DAILY [facility] Last Admin: 08/19/18 10:10 Dose: 1 each Acetaminophen (Tylenol Oral Solution -) 1,000 mg PO Q6H PRN PRN Reason: FEVER Last Admin: 08/20/18 06:20 Dose: 1,000 mg Albuterol Sulfate (Ventolin 0.083% Nebulizer Soln -) 1 amp NEB Q4H PRN PRN Reason: SHORT OF BREATH/WHEEZING Albuterol/Ipratropium (Duoneb -) 1 amp NEB RQID [facility] Last Admin: 08/19/18 20:50 Dose: 1 amp Carvedilol (Coreg -) 12.5 mg PO BID [facility] Last Admin: 08/19/18 21:05 Dose: Not Given Chlorhexidine Gluconate (Peridex -) 15 ml MM BID [facility] Last Admin: 08/19/18 22:00 Dose: 15 ml Clopidogrel Bisulfate (Plavix -) 75 mg PO DAILY [facility] Last Admin: 08/19/18 10:10 Dose: 75 mg Heparin Sodium (Porcine) (Heparin -) 5,000 unit SQ TID [facility] Last Admin: 08/20/18 06:03 Dose: 5,000 unit Hydralazine HCl (Apresoline -) 50 mg NGT TID [facility] Last Admin: 08/20/18 06:02 Dose: Not Given Propofol (Diprivan -) 1,000,000 mcg in 100 mls @ 1.647 mls/hr IVPB TITR [facility]; Protocol Last Titration: 08/20/18 08:42 Dose: 50 mcg/kg/min, 16.47 mls/hr Ceftazidime 2 gm/ Dextrose 100 mls @ 200 mls/hr IVPB Q8H-IV [facility]; Protocol Last Admin: 08/20/18 01:10 Dose: 200 mls/hr Nafcillin Sodium 2 gm/ (Dextrose) 100 mls @ 100 mls/hr IVPB Q4H-IV [facility]; Protocol Last Admin: 08/20/18 06:07 Dose: 100 mls/hr Dexmedetomidine HCl 200 mcg/ (Sodium Chloride) 50 mls @ 2.78 mls/hr IVPB TITR [facility]; Protocol Last Admin: 08/20/18 08:28 Dose: 1.48 mcg/kg/hr, 20.6 mls/hr Losartan Potassium (Cozaar -) 50 mg PO BID [facility] Last Admin: 08/19/18 21:05 Dose: Not Given Methylprednisolone Sodium Succinate (Solu-Medrol -) 40 mg IVPUSH Q8H-IV [facility] Last Admin: 08/20/18 01:12 Dose: 40 mg Midazolam HCl (Versed -) 2 mg IVPUSH Q3H PRN PRN Reason: AGITATION Last Admin: 08/17/18 12:00 Dose: 2 mg Mupirocin (Bactroban Ointment (For Decolonization) -) 1 applic NS BID [facility] Stop: 08/22/18 21:59 Last Admin: 08/19/18 22:10 Dose: 1 applic Pantoprazole Sodium (Protonix Iv) 40 mg IVPUSH DAILY [facility] Last Admin: 08/19/18 10:10 Dose: 40 mg Ranolazine (Ranexa -) 500 mg PO BID [facility] Last Admin: 08/19/18 21:12 Dose: 500 mg Spironolactone (Aldactone -) 25 mg NGT DAILY [facility] Last Admin: 08/19/18 10:00 Dose: 25 mg a/p Respiratory failure MSSA bacteremia HCAP-MSSA and Pseudomonas diarrhea HIV -CD4 440 in May-on Triumeq, repeat cd4 pending leukocytosis improved send stool for cdiff f/u cultures reculture blood in am if she remains febrile continue nafcillin and ceftazidime d/w ICU team over 45 minutes spent reviewng chart, labs, xrays in this critically ill ICU patient
--- NOTE | 2018-08-20 09:19 | PN ---
Physical Exam: SUBJECTIVE: Patient seen and examined at bedside. Febrile to 101 overnight. abx changed per ID. WBC improved. OBJECTIVE: Vital Signs Period Temp Pulse Resp BP Sys/Buck Pulse Ox Last 24 Hr 100.4 F-101 F 91-115 19-30 90-130/61-72 98-99 GENERAL: Patient intubated and sedated. HEAD: Normal with no signs of trauma. EYES: pinpoint pupils minimally reactive NECK: Trachea midline, full range of motion, supple. LUNGS: Crackles and ronchi on the right HEART: Regular rate and rhythm, S1, S2 without murmur, rub or gallop. ABDOMEN: Soft, nontender, nondistended, normoactive bowel sounds, no guarding, no rebound, no hepatosplenomegaly, no masses. EXTREMITIES: 2+ pulses, warm, well-perfused, 2+ edema b/l. NEUROLOGICAL: Cranial nerves II through X grossly intact. Normal speech, gait not observed. SKIN: Warm, dry, normal turgor, no rashes or lesions noted Laboratory Results - last 24 hr 08/19/18 08/20/18 08/20/18 05:30 05:30 05:30 WBC 23.4 H RBC 2.98 L Hgb 8.9 L Hct 27.7 L MCV 92.8 MCH 29.8 MCHC 32.2 RDW 15.7 H Plt Count 237 MPV 9.0 Absolute Neuts (auto) 22.0 H Neutrophils % 93.9 H Neutrophils % (Manual) 93.0 H 91.9 H Band Neutrophils % 0.0 0.0 Lymphocytes % 1.5 L Lymphocytes % (Manual) 2.0 L D 1.0 L D Monocytes % 4.5 Monocytes % (Manual) 4 6 Eosinophils % 0.0 Eosinophils % (Manual) 0.0 0.0 Basophils % 0.1 Basophils % (Manual) 0.0 0.0 Myelocytes % (Man) 0 0 Promyelocytes % (Man) 0 0 Blast Cells % (Manual) 0 0 Nucleated RBC % 0 0 Metamyelocytes 1 D 1 Hypochromia 0 0 Platelet Estimate Normal Normal Polychromasia 0 0 Poikilocytosis 0 0 Basophilic Stippling 1+ Anisocytosis 0 1+ Microcytosis 0 Macrocytosis 0 Target Cells 1+ Fragmented RBCs 1+ Sodium 140 Potassium 4.8 Chloride 102 Carbon Dioxide 35 H Anion Gap 4 L BUN 48 H Creatinine 0.8 Creat Clearance w eGFR 71.55 Random Glucose 212 H Calcium 9.3 Phosphorus 4.2 Magnesium 2.2 Active Medications Generic Name Dose Route Start Last Admin Trade Name Freq PRN Reason Stop Dose Admin Abacavir/Dolutegravir/Lamivudine 1 each 08/10/18 14:00 08/19/18 10:10 Triumeq (Non-Formulary) PO 1 each DAILY [facility] Administration Acetaminophen 1,000 mg 08/16/18 16:11 08/20/18 06:20 Tylenol Oral Solution - PO 1,000 mg Q6H PRN Administration FEVER Albuterol Sulfate 1 amp 08/15/18 12:32 Ventolin 0.083% Nebulizer Soln - NEB Q4H PRN SHORT OF BREATH/WHEEZING Albuterol/Ipratropium 1 amp 08/17/18 16:00 08/19/18 20:50 Duoneb - NEB 1 amp RQID [facility] Administration Carvedilol 12.5 mg 08/10/18 10:00 08/19/18 21:05 Coreg - PO Not Given BID [facility] Chlorhexidine Gluconate 15 ml 08/17/18 22:00 08/19/18 22:00 Peridex - MM 15 ml BID [facility] Administration Clopidogrel Bisulfate 75 mg 08/10/18 10:00 08/19/18 10:10 Plavix - PO 75 mg DAILY [facility] Administration Heparin Sodium (Porcine) 5,000 unit 08/17/18 14:00 08/20/18 06:03 Heparin - SQ 5,000 unit TID [facility] Administration Hydralazine HCl 50 mg 08/11/18 14:08 08/20/18 06:02 Apresoline - NGT Not Given TID [facility] Propofol 1,000,000 mcg in 100 mls @ 1.647 mls/hr 08/18/18 15:15 08/20/18 08: 42 Diprivan - IVPB 50 mcg/kg/min TITR [facility] 16.47 mls/hr Titration Protocol 5 MCG/KG/MIN Ceftazidime 2 gm/ Dextrose 100 mls @ 200 mls/hr 08/19/18 15:45 08/20/18 01:10 IVPB 200 mls/hr Q8H-IV [facility] Administration Protocol Nafcillin Sodium 2 gm/ 100 mls @ 100 mls/hr 08/19/18 20:00 04/13/19 06:07 Dextrose IVPB 100 mls/hr Q4H-IV [facility] Administration Protocol Dexmedetomidine HCl 200 mcg/ 50 mls @ 2.78 mls/hr 08/20/18 02:00 08/20/18 08: 28 Sodium Chloride IVPB 1.48 mcg/kg/hr TITR [facility] 20.6 mls/hr Administration Protocol 0.2 MCG/KG/HR Losartan Potassium 50 mg 08/11/18 13:00 08/19/18 21:05 Cozaar - PO Not Given BID [facility] Methylprednisolone Sodium Succinate 40 mg 08/17/18 12:15 08/20/18 01:12 Solu-Medrol - IVPUSH 40 mg Q8H-IV [facility] Administration Midazolam HCl 2 mg 08/14/18 20:55 08/20/18 08:58 Versed - IVPUSH 2 mg Q3H PRN Administration AGITATION Mupirocin 1 applic 08/17/18 22:00 08/19/18 22:10 Bactroban Ointment (For Decolonization) - NS 08/22/18 21:59 1 applic BID [facility] Administration Pantoprazole Sodium 40 mg 08/11/18 13:15 08/19/18 10:10 Protonix Iv IVPUSH 40 mg DAILY [facility] Administration Ranolazine 500 mg 08/10/18 11:30 08/19/18 21:12 Ranexa - PO 500 mg BID [facility] Administration Spironolactone 25 mg 08/11/18 14:15 08/19/18 10:00 Aldactone - NGT 25 mg DAILY [facility] Administration ASSESSMENT/PLAN: 67 year old female with HTN, CAD s/p CABG in 2009, PVD with B/L LE stents, HIV, HEP C, COPD and CHF. Admitted to the ICU for Acute hypoxic hypercapnic respiratory failure and dehydration. Neuro: - Patient was under sedated on propofol and precedex combo. Will transition to propofol alone with fentanyl as patient over-breathing vent. - will maintain versed 2mg push q3h PRN agitation - will consider Versed GTT if patient requiring more sedation. -Will continue to attempt sedation wean daily; not able to attempt this AM due to patient's FiO2 requirement (60%) and agitation on sedation. Endocrine: - Consult: Dr. Leach - Acute Kidney Injury resolved - Continue to trend electrolytes Cardiovascular: - Consult: Dr. Fitzgerald - LV Diastolic/Systolic Dysfunction -c/w home Clopidogrel -c/w home Carvedilol, Hydralazine, Losartan for BP control -c/w home Ranolazine and Spironolactone Pulm / Resp: - Acute on Chronic Hypoxic and Hypercapneic Respiratory Failure - Continue albuterol PRN. Standing QID nebs changed from albuterol to duonebs - Continuing Solu-medrol at 40mg q8h - CXR showing worsening consolidation on the right - Will continue attempts to wean from vent - Today is intubation day 10. There are ongiong discussions with family regarding GOC and the possibility of trach Gastrointestinal: - Patient continues to have almost constant flow of diarrhea. Rectal tube placed. - will add banatrol packet TID -Stool for C.Diff negative Infectious Disease: - Consult Dr. Khan - h/o HIV: continue HAART Therapy per ID - Patient continues to have fevers overnight; Leukocytosis improved today - abx switched to naficillin and ceftazidime yesterday as per ID - RPT BCx, UCx negative. - RPT Sputum Cx growing pseudomonas, MSSA - Stool Shigella/ Salmonella culture negative - Stool for C.Diff negative - han catheter removed FEN: - No fluids indicated - lytes WNL -Tube Feed per dietary Prophylaxis: -DVT: Heparin SQ -GI: Pantoprazole Dispo: - Continue to monitor the intubated pt in the ICU. - Discussed current state and possible plans for trach with pts daughter, Netta, at the bedside. Will revisit on Wednesday. Visit type - Emergency Visit Emergency Visit: Yes ED Registration Date: 08/08/18 Care time: The patient presented to the Emergency Department on the above date and was hospitalized for further evaluation of their emergent condition. - New Patient This patient is new to me today: No - Critical Care Critical Care patient: Yes Total Critical Care Time (in minutes): 35 Critical Care Statement: The care of this patient involved high complexity decision making to prevent further life threatening deterioration of the patient 's condition and/or to evaluate & treat vital organ system(s) failure or risk of failure. - Discharge Referral Referred to [facility] No
--- NOTE | 2018-08-20 09:32 | PN ---
Progress Note, Physician Chief Complaint: Events noted Remains in ICU Intubated and sedated History of Present Illness: Patient was seen and examined. Mechanical ventilation. Chart was reviewed - Current Medication List Current Medications: Active Medications Abacavir/Dolutegravir/Lamivudine (Triumeq (Non-Formulary)) 1 each PO DAILY [facility] Last Admin: 08/19/18 10:10 Dose: 1 each Acetaminophen (Tylenol Oral Solution -) 1,000 mg PO Q6H PRN PRN Reason: FEVER Last Admin: 08/20/18 06:20 Dose: 1,000 mg Albuterol Sulfate (Ventolin 0.083% Nebulizer Soln -) 1 amp NEB Q4H PRN PRN Reason: SHORT OF BREATH/WHEEZING Albuterol/Ipratropium (Duoneb -) 1 amp NEB RQID [facility] Last Admin: 08/19/18 20:50 Dose: 1 amp Carvedilol (Coreg -) 12.5 mg PO BID [facility] Last Admin: 08/19/18 21:05 Dose: Not Given Chlorhexidine Gluconate (Peridex -) 15 ml MM BID [facility] Last Admin: 08/19/18 22:00 Dose: 15 ml Clopidogrel Bisulfate (Plavix -) 75 mg PO DAILY [facility] Last Admin: 08/19/18 10:10 Dose: 75 mg Heparin Sodium (Porcine) (Heparin -) 5,000 unit SQ TID [facility] Last Admin: 08/20/18 06:03 Dose: 5,000 unit Hydralazine HCl (Apresoline -) 50 mg NGT TID [facility] Last Admin: 08/20/18 06:02 Dose: Not Given Propofol (Diprivan -) 1,000,000 mcg in 100 mls @ 1.647 mls/hr IVPB TITR [facility]; Protocol Last Titration: 08/20/18 08:42 Dose: 50 mcg/kg/min, 16.47 mls/hr Ceftazidime 2 gm/ Dextrose 100 mls @ 200 mls/hr IVPB Q8H-IV [facility]; Protocol Last Admin: 08/20/18 01:10 Dose: 200 mls/hr Nafcillin Sodium 2 gm/ (Dextrose) 100 mls @ 100 mls/hr IVPB Q4H-IV [facility]; Protocol Last Admin: 08/20/18 06:07 Dose: 100 mls/hr Dexmedetomidine HCl 200 mcg/ (Sodium Chloride) 50 mls @ 2.78 mls/hr IVPB TITR [facility]; Protocol Last Admin: 08/20/18 08:28 Dose: 1.48 mcg/kg/hr, 20.6 mls/hr Losartan Potassium (Cozaar -) 50 mg PO BID [facility] Last Admin: 08/19/18 21:05 Dose: Not Given Methylprednisolone Sodium Succinate (Solu-Medrol -) 40 mg IVPUSH Q8H-IV [facility] Last Admin: 08/20/18 01:12 Dose: 40 mg Midazolam HCl (Versed -) 2 mg IVPUSH Q3H PRN PRN Reason: AGITATION Last Admin: 08/20/18 08:58 Dose: 2 mg Mupirocin (Bactroban Ointment (For Decolonization) -) 1 applic NS BID [facility] Stop: 08/22/18 21:59 Last Admin: 08/19/18 22:10 Dose: 1 applic Pantoprazole Sodium (Protonix Iv) 40 mg IVPUSH DAILY [facility] Last Admin: 08/19/18 10:10 Dose: 40 mg Ranolazine (Ranexa -) 500 mg PO BID [facility] Last Admin: 08/19/18 21:12 Dose: 500 mg Spironolactone (Aldactone -) 25 mg NGT DAILY [facility] Last Admin: 08/19/18 10:00 Dose: 25 mg - Objective Vital Signs: Vital Signs Temperature 100.4 F H 08/20/18 05:00 Pulse Rate 110 H 08/20/18 05:00 Respiratory Rate 29 H 08/20/18 06:30 Blood Pressure 127/71 08/20/18 05:00 O2 Sat by Pulse Oximetry (%) 99 08/19/18 21:00 Neck: Yes: Supple Cardiovascular: Yes: Regular Rate and Rhythm, Tachycardia, S1, S2 Respiratory: Yes: Intubated, Mechanically Ventilated Gastrointestinal: Yes: Normal Bowel Sounds, Soft. No: Tenderness Edema: No Labs: CBC, BMP 08/20/18 05:30 08/20/18 05:30 Problem List - Problems (1) Altered mental status, unspecified Code(s): R41.82 - ALTERED MENTAL STATUS, UNSPECIFIED Qualifiers: Altered mental status type: somnolence Qualified Code(s): R40.0 - Somnolence (2) CHF (congestive heart failure) Code(s): I50.9 - HEART FAILURE, UNSPECIFIED Qualifiers: Heart failure type: diastolic Heart failure chronicity: chronic Qualified Code(s): I50.32 - Chronic diastolic (congestive) heart failure (3) COPD with acute exacerbation Code(s): J44.1 - CHRONIC OBSTRUCTIVE PULMONARY DISEASE W (ACUTE) EXACERBATION (4) Elevated troponin I level Code(s): R74.8 - ABNORMAL LEVELS OF OTHER SERUM ENZYMES (5) Leukocytosis Code(s): D72.829 - ELEVATED WHITE BLOOD CELL COUNT, UNSPECIFIED (6) Respiratory failure requiring intubation Code(s): J96.90 - RESPIRATORY FAILURE, UNSP, UNSP W HYPOXIA OR HYPERCAPNIA (7) Severe pulmonary arterial systolic hypertension Code(s): I27.21 - SECONDARY PULMONARY ARTERIAL HYPERTENSION (8) Asthma Code(s): J45.909 - UNSPECIFIED ASTHMA, UNCOMPLICATED (9) Asymptomatic cholelithiasis Code(s): K80.20 - CALCULUS OF GALLBLADDER W/O CHOLECYSTITIS W/O OBSTRUCTION (10) COPD (chronic obstructive pulmonary disease) Code(s): J44.9 - CHRONIC OBSTRUCTIVE PULMONARY DISEASE, UNSPECIFIED Qualifiers: (11) HIV Code(s): Z21 - ASYMPTOMATIC HUMAN IMMUNODEFICIENCY VIRUS INFECTION STATUS (12) HTN (hypertension) Code(s): I10 - ESSENTIAL (PRIMARY) HYPERTENSION Qualifiers: Hypertension type: essential hypertension Qualified Code(s): I10 - Essential (primary) hypertension (13) Hyperlipidemia Code(s): E78.5 - HYPERLIPIDEMIA, UNSPECIFIED Qualifiers: Hyperlipidemia type: pure hypercholesterolemia Qualified Code(s): E78.00 - Pure hypercholesterolemia, unspecified; E78.0 - Pure hypercholesterolemia (14) PVD (peripheral vascular disease) Code(s): I73.9 - PERIPHERAL VASCULAR DISEASE, UNSPECIFIED (15) S/P CABG (coronary artery bypass graft) Code(s): Z95.1 - PRESENCE OF AORTOCORONARY BYPASS GRAFT Assessment/Plan 1. Acute on chronic hypercapneic/hypoxemic respiratory failure - mechanical ventilation 2. Acute exacerbation of chronic obstructive pulmonary disease 3. Right Heart Failure/Volume Overload with Severe Pulmonary HTN 4. Diastolic dysfunction 5. CAD s/p CABG, demand ischemia 7. HTN 8. Hypercholesterolemia 9. HIV and Hepatitis C 10. PAD s/p SFA stent 11. Pre-renal Acute on CKD improving, hyperkalemia and hyponatremia 12. Toxic metabolic encephelopathy 13. Cholelithiasis PLAN: 1. Continue Aldactone 25 mg QD and Losartan 50 mg BID as tolerated 2. Continue Carvedilol 12.5 mg BID, Plavix 75 mg QD, Hydralazine 50 mg TID, Lipitor 10 mg QD and Ranexa 500 mg BID as tolerated (via NG) 3. IV steroid, bronchodilator and vent management as per critical care team. 4. Continue antibiotic coverage 5. DVT prophylaxis Guarded. Chato Beltran MD
[2018-08-20] MEDS ORDERED: fentaNYL CITRATE 250 MCG/5 ML VIAL ONE ×3 (10:05→21:57)
[2018-08-20] MEDS: CHLORHEXIDINE GLUCONATE 0.12% 15ML CUP MM SCH (10:22)
[2018-08-20] MEDS ORDERED: PROPOFOL 1,000,000 MCG/100 ML VIAL IVPB SCH (10:30)
[2018-08-20] MEDS: FENTANYL INJECTION 500 MCG in DEXTROSE 5%-WATER - 90 ML IVPB SCH ×3 (10:38→22:38)
[2018-08-20] MEDS: PROPOFOL 1,000,000 MCG/100 ML VIAL IVPB SCH ×2 (10:41→16:15)
[2018-08-20] MEDS: PANTOPRAZOLE SODIUM 40 MG VIAL IVPUSH SCH (10:48)
--- NOTE | 2018-08-20 10:49 | PN ---
Teaching Attending Note Name of Resident: Pino Saucedo ATTENDING PHYSICIAN STATEMENT I saw and evaluated the patient. I reviewed the resident's note and discussed the case with the resident. I agree with the resident's findings and plan as documented. SUBJECTIVE: Pt seen and examined in the ICU. Remains intubated, sedated, tachypneic. Febrile and intermittent desaturations overnight. OBJECTIVE: Vital Signs Period Temp Pulse Resp BP Sys/Buck Pulse Ox Last 24 Hr 100.4 F-101 F 91-115 19-33 90-130/61-72 98-99 Intake & Output 08/17/18 08/18/18 08/19/18 08/20/18 23:59 23:59 23:59 23:59 Intake Total 3465.2 1705 1176 1680 Output Total 2150 1050 300 Balance 1315.2 161 635 5627 Weight 54.6 kg 54.9 kg 55.6 kg 56.6 kg Gen: intubated, sedated, tachypneic Heart: RRR Lung: bilateral rhonchi Abd: soft, nontender Ext: no edema CBC, BMP 08/20/18 05:30 08/20/18 05:30 Active Medications Abacavir/Dolutegravir/Lamivudine (Triumeq (Non-Formulary)) 1 each PO DAILY [facility] Last Admin: 08/19/18 10:10 Dose: 1 each Acetaminophen (Tylenol Oral Solution -) 1,000 mg PO Q6H PRN PRN Reason: FEVER Last Admin: 08/20/18 06:20 Dose: 1,000 mg Albuterol Sulfate (Ventolin 0.083% Nebulizer Soln -) 1 amp NEB Q4H PRN PRN Reason: SHORT OF BREATH/WHEEZING Albuterol/Ipratropium (Duoneb -) 1 amp NEB RQID [facility] Last Admin: 08/20/18 08:40 Dose: 1 amp Carvedilol (Coreg -) 12.5 mg PO BID [facility] Last Admin: 08/19/18 21:05 Dose: Not Given Chlorhexidine Gluconate (Peridex -) 15 ml MM BID [facility] Last Admin: 08/20/18 10:22 Dose: 15 ml Clopidogrel Bisulfate (Plavix -) 75 mg PO DAILY [facility] Last Admin: 08/19/18 10:10 Dose: 75 mg Heparin Sodium (Porcine) (Heparin -) 5,000 unit SQ TID [facility] Last Admin: 08/20/18 06:03 Dose: 5,000 unit Hydralazine HCl (Apresoline -) 50 mg NGT TID [facility] Last Admin: 08/20/18 06:02 Dose: Not Given Ceftazidime 2 gm/ Dextrose 100 mls @ 200 mls/hr IVPB Q8H-IV [facility]; Protocol Last Admin: 08/20/18 10:44 Dose: 200 mls/hr Nafcillin Sodium 2 gm/ (Dextrose) 100 mls @ 100 mls/hr IVPB Q4H-IV [facility]; Protocol Last Admin: 08/20/18 06:07 Dose: 100 mls/hr Fentanyl 500 mcg/ Dextrose 100 mls @ 5 mls/hr IVPB TITR [facility]; Protocol Last Admin: 08/20/18 10:38 Dose: 25 mcg/hr, 5 mls/hr Propofol (Diprivan -) 1,000,000 mcg in 100 mls @ 16.98 mls/hr IVPB TITR [facility]; Protocol Last Admin: 08/20/18 10:41 Dose: 50 mcg/kg/min, 16.98 mls/hr Losartan Potassium (Cozaar -) 50 mg PO BID [facility] Last Admin: 08/19/18 21:05 Dose: Not Given Methylprednisolone Sodium Succinate (Solu-Medrol -) 40 mg IVPUSH Q8H-IV [facility] Last Admin: 08/20/18 01:12 Dose: 40 mg Midazolam HCl (Versed -) 2 mg IVPUSH Q3H PRN PRN Reason: AGITATION Last Admin: 08/20/18 08:58 Dose: 2 mg Mupirocin (Bactroban Ointment (For Decolonization) -) 1 applic NS BID [facility] Stop: 08/22/18 21:59 Last Admin: 08/19/18 22:10 Dose: 1 applic Pantoprazole Sodium (Protonix Iv) 40 mg IVPUSH DAILY [facility] Last Admin: 08/19/18 10:10 Dose: 40 mg Ranolazine (Ranexa -) 500 mg PO BID [facility] Last Admin: 08/19/18 21:12 Dose: 500 mg Spironolactone (Aldactone -) 25 mg NGT DAILY [facility] Last Admin: 08/19/18 10:00 Dose: 25 mg ASSESSMENT AND PLAN: Acute on Chronic Hypoxic and Hypercapneic Respiratory Failure Acute COPD Exacerbation Pneumonia Volume Overload Pulmonary HTN LV Diastolic Dysfunction CAD s/p CABG +Troponins likely Demand Ischemia PAD HIV Hep C HTN Hypercholesterolemia - continue antibiotics - send stool for C diff - f/u cultures - continue medrol - inhaled bronchodilators - taper FiO2 to keep SpO2 >90% - increase sedation for vent synchrony - not a candidate for weaning at this time given tachypnea on assist control - enteral feeds - DVT/GI prophylaxis - continue ICU monitoring - pallative care eval, will likely need tracheostomy for prolonged intubation critical care time spent in reviewing chart, evaluating patient and formulating plan 35 min
[2018-08-20] MEDS: CARVEDILOL 12.5 MG TABLET (FP) PO SCH ×2 (11:08→23:00)
[2018-08-20] MEDS: CLOPIDOGREL BISULFATE 75 MG TABLET (FP) PO SCH (11:08)
[2018-08-20] MEDS: LOSARTAN POTASSIUM 50 MG TABLET (FP) PO SCH ×2 (11:08→22:12)
[2018-08-20] MEDS: RANOLAZINE E.R. 500 MG TABLET (FP) PO SCH (11:09)
[2018-08-20] MEDS: SPIRONOLACTONE 25 MG TABLET (FP) NGT SCH (11:10)
[2018-08-20] MEDS: ABACAVIR/DOLUTEGRAVIR/LAMIVUDI (TRIUMEQ) TABLET -NF PO SCH (11:27)
[2018-08-20] MEDS: MUPIROCIN 2% TOPICAL OINTMENT FOR DECOLONIZATION NS SCH ×2 (11:28→22:21)
--- NOTE | 2018-08-20 16:47 | PN ---
Progress Note, Physician History of Present Illness: Pt seen and examined at bedside. She remain in the ICU. She remain intubated. - Current Medication List Current Medications: Active Medications Abacavir/Dolutegravir/Lamivudine (Triumeq (Non-Formulary)) 1 each PO DAILY [facility] Last Admin: 08/20/18 11:27 Dose: 1 each Acetaminophen (Tylenol Oral Solution -) 1,000 mg PO Q6H PRN PRN Reason: FEVER Last Admin: 08/20/18 14:00 Dose: 1,000 mg Albuterol/Ipratropium (Duoneb -) 1 amp NEB RQID [facility] Last Admin: 08/20/18 15:05 Dose: 1 amp Carvedilol (Coreg -) 12.5 mg PO BID [facility] Last Admin: 08/20/18 11:08 Dose: 12.5 mg Chlorhexidine Gluconate (Peridex -) 15 ml MM BID [facility] Last Admin: 08/20/18 10:22 Dose: 15 ml Clopidogrel Bisulfate (Plavix -) 75 mg PO DAILY [facility] Last Admin: 08/20/18 11:08 Dose: 75 mg Heparin Sodium (Porcine) (Heparin -) 5,000 unit SQ TID [facility] Last Admin: 08/20/18 16:13 Dose: 5,000 unit Hydralazine HCl (Apresoline -) 50 mg NGT TID [facility] Last Admin: 08/20/18 16:37 Dose: 50 mg Ceftazidime 2 gm/ Dextrose 100 mls @ 200 mls/hr IVPB Q8H-IV [facility]; Protocol Last Admin: 08/20/18 10:44 Dose: 200 mls/hr Nafcillin Sodium 2 gm/ (Dextrose) 100 mls @ 100 mls/hr IVPB Q4H-IV [facility]; Protocol Last Admin: 08/20/18 16:12 Dose: 100 mls/hr Fentanyl 500 mcg/ Dextrose 100 mls @ 5 mls/hr IVPB TITR [facility]; Protocol Last Admin: 08/20/18 16:12 Dose: 100 mcg/hr, 20 mls/hr Propofol (Diprivan -) 1,000,000 mcg in 100 mls @ 16.98 mls/hr IVPB TITR [facility]; Protocol Last Admin: 08/20/18 16:15 Dose: 50 mcg/kg/min, 16.98 mls/hr Losartan Potassium (Cozaar -) 50 mg PO BID [facility] Last Admin: 08/20/18 11:08 Dose: 50 mg Methylprednisolone Sodium Succinate (Solu-Medrol -) 40 mg IVPUSH Q8H-IV [facility] Last Admin: 08/20/18 10:46 Dose: 40 mg Midazolam HCl (Versed -) 2 mg IVPUSH Q3H PRN PRN Reason: AGITATION Last Admin: 08/20/18 08:58 Dose: 2 mg Mupirocin (Bactroban Ointment (For Decolonization) -) 1 applic NS BID [facility] Stop: 08/22/18 21:59 Last Admin: 08/20/18 11:28 Dose: 1 applic Pantoprazole Sodium (Protonix Iv) 40 mg IVPUSH DAILY [facility] Last Admin: 08/20/18 10:48 Dose: 40 mg Ranolazine (Ranexa -) 500 mg PO BID [facility] Last Admin: 08/20/18 11:09 Dose: 500 mg Spironolactone (Aldactone -) 25 mg NGT DAILY [facility] Last Admin: 08/20/18 11:10 Dose: 25 mg - Objective Vital Signs: Vital Signs Temperature 100.3 F H 08/20/18 09:00 Pulse Rate 104 H 08/20/18 09:00 Respiratory Rate 28 H 08/20/18 15:00 Blood Pressure 162/92 08/20/18 09:00 O2 Sat by Pulse Oximetry (%) 99 08/20/18 09:00 Constitutional: Yes: Calm Eyes: Yes: Conjunctiva Clear HENT: Yes: Atraumatic Neck: Yes: Supple Cardiovascular: Yes: S1, S2 Respiratory: Yes: Mechanically Ventilated Gastrointestinal: Yes: Normal Bowel Sounds, Soft Genitourinary: Yes: Torres Present Musculoskeletal: Yes: Muscle Weakness Edema: No Neurological: Yes: Lethargy Labs: CBC, BMP 08/20/18 05:30 08/20/18 05:30 INR, PTT INR 1.49 (0.83-1.09) H 08/08/18 19:37 Problem List - Problems (1) Acute renal failure Code(s): N17.9 - ACUTE KIDNEY FAILURE, UNSPECIFIED Qualifiers: Acute renal failure type: unspecified Qualified Code(s): N17.9 - Acute kidney failure, unspecified (2) Altered mental status, unspecified Code(s): R41.82 - ALTERED MENTAL STATUS, UNSPECIFIED Qualifiers: Altered mental status type: somnolence Qualified Code(s): R40.0 - Somnolence (3) CHF (congestive heart failure) Code(s): I50.9 - HEART FAILURE, UNSPECIFIED Qualifiers: Heart failure type: diastolic Heart failure chronicity: chronic Qualified Code(s): I50.32 - Chronic diastolic (congestive) heart failure (4) COPD with acute exacerbation Code(s): J44.1 - CHRONIC OBSTRUCTIVE PULMONARY DISEASE W (ACUTE) EXACERBATION (5) Hyperkalemia Code(s): E87.5 - HYPERKALEMIA Assessment/Plan Current Medications Generic Name Dose Route Start Last Admin Trade Name Freq PRN Reason Stop Dose Admin Abacavir/Dolutegravir/Lamivudine 1 each 08/10/18 14:00 08/20/18 11:27 Triumeq (Non-Formulary) PO 1 each DAILY [facility] Administration Acetaminophen 1,000 mg 08/16/18 16:11 08/20/18 14:00 Tylenol Oral Solution - PO 1,000 mg Q6H PRN Administration FEVER Albuterol/Ipratropium 1 amp 08/17/18 16:00 08/20/18 15:05 Duoneb - NEB 1 amp RQID [facility] Administration Carvedilol 12.5 mg 08/10/18 10:00 08/20/18 11:08 Coreg - PO 12.5 mg BID [facility] Administration Chlorhexidine Gluconate 15 ml 08/17/18 22:00 08/20/18 10:22 Peridex - MM 15 ml BID [facility] Administration Clopidogrel Bisulfate 75 mg 08/10/18 10:00 08/20/18 11:08 Plavix - PO 75 mg DAILY [facility] Administration Heparin Sodium (Porcine) 5,000 unit 08/17/18 14:00 08/20/18 16:13 Heparin - SQ 5,000 unit TID [facility] Administration Hydralazine HCl 50 mg 08/11/18 14:08 08/20/18 16:37 Apresoline - NGT 50 mg TID [facility] Administration Ceftazidime 2 gm/ Dextrose 100 mls @ 200 mls/hr 08/19/18 15:45 08/20/18 10:44 IVPB 200 mls/hr Q8H-IV [facility] Administration Protocol Nafcillin Sodium 2 gm/ 100 mls @ 100 mls/hr 08/19/18 20:00 08/20/18 16:12 Dextrose IVPB 100 mls/hr Q4H-IV [facility] Administration Protocol Fentanyl 500 mcg/ Dextrose 100 mls @ 5 mls/hr 08/20/18 10:30 08/20/18 16:12 IVPB 100 mcg/hr TITR [facility] 20 mls/hr Administration Protocol 25 MCG/HR Propofol 1,000,000 mcg in 100 mls @ 16.98 mls/hr 08/20/18 10:39 08/20/18 16: 15 Diprivan - IVPB 50 mcg/kg/min TITR [facility] 16.98 mls/hr Administration Protocol 50 MCG/KG/MIN Losartan Potassium 50 mg 08/11/18 13:00 08/20/18 11:08 Cozaar - PO 50 mg BID [facility] Administration Methylprednisolone Sodium Succinate 40 mg 08/17/18 12:15 08/20/18 10:46 Solu-Medrol - IVPUSH 40 mg Q8H-IV [facility] Administration Midazolam HCl 2 mg 08/14/18 20:55 08/20/18 08:58 Versed - IVPUSH 2 mg Q3H PRN Administration AGITATION Mupirocin 1 applic 08/17/18 22:00 08/20/18 11:28 Bactroban Ointment (For Decolonization) - NS 08/22/18 21:59 1 applic BID [facility] Administration Pantoprazole Sodium 40 mg 08/11/18 13:15 08/20/18 10:48 Protonix Iv IVPUSH 40 mg DAILY [facility] Administration Ranolazine 500 mg 08/10/18 11:30 08/20/18 11:09 Ranexa - PO 500 mg BID [facility] Administration Spironolactone 25 mg 08/11/18 14:15 08/20/18 11:10 Aldactone - NGT 25 mg DAILY [facility] Administration Impression 1. KRISTIAN 2. Hyperkalemia 3. HIV 4. hyponatremia 5. altered mental status 6. pulm HTN 7. htn 8. pvd 9. resp acidosis 10. resp failure requiring intubation Plan - bun is rising, cont to monitor - monitor potassium while on aldactone - vent support - steroids can contribute to elevated bun
[2018-08-20] MEDS ORDERED: IBUPROFEN 800 MG/8 ML IJ IVPB ONE (17:30)
--- NOTE | 2018-08-20 20:00 | PN ---
Progress Note, Physician History of Present Illness: intubated - Current Medication List Current Medications: Active Medications Abacavir/Dolutegravir/Lamivudine (Triumeq (Non-Formulary)) 1 each PO DAILY [facility] Last Admin: 08/20/18 11:27 Dose: 1 each Acetaminophen (Tylenol Oral Solution -) 1,000 mg PO Q6H PRN PRN Reason: FEVER Last Admin: 08/20/18 14:00 Dose: 1,000 mg Albuterol/Ipratropium (Duoneb -) 1 amp NEB RQID [facility] Last Admin: 08/20/18 15:05 Dose: 1 amp Carvedilol (Coreg -) 12.5 mg PO BID [facility] Last Admin: 08/20/18 11:08 Dose: 12.5 mg Chlorhexidine Gluconate (Peridex -) 15 ml MM BID [facility] Last Admin: 08/20/18 10:22 Dose: 15 ml Clopidogrel Bisulfate (Plavix -) 75 mg PO DAILY [facility] Last Admin: 08/20/18 11:08 Dose: 75 mg Heparin Sodium (Porcine) (Heparin -) 5,000 unit SQ TID [facility] Last Admin: 08/20/18 16:13 Dose: 5,000 unit Hydralazine HCl (Apresoline -) 50 mg NGT TID [facility] Last Admin: 08/20/18 16:37 Dose: 50 mg Ceftazidime 2 gm/ Dextrose 100 mls @ 200 mls/hr IVPB Q8H-IV [facility]; Protocol Last Admin: 08/20/18 18:10 Dose: 200 mls/hr Nafcillin Sodium 2 gm/ (Dextrose) 100 mls @ 100 mls/hr IVPB Q4H-IV [facility]; Protocol Last Admin: 08/20/18 18:09 Dose: 100 mls/hr Fentanyl 500 mcg/ Dextrose 100 mls @ 5 mls/hr IVPB TITR [facility]; Protocol Last Admin: 08/20/18 16:12 Dose: 100 mcg/hr, 20 mls/hr Propofol (Diprivan -) 1,000,000 mcg in 100 mls @ 16.98 mls/hr IVPB TITR [facility]; Protocol Last Admin: 08/20/18 16:15 Dose: 50 mcg/kg/min, 16.98 mls/hr Losartan Potassium (Cozaar -) 50 mg PO BID [facility] Last Admin: 08/20/18 11:08 Dose: 50 mg Methylprednisolone Sodium Succinate (Solu-Medrol -) 40 mg IVPUSH Q8H-IV [facility] Last Admin: 08/20/18 18:10 Dose: 40 mg Midazolam HCl (Versed -) 2 mg IVPUSH Q3H PRN PRN Reason: AGITATION Last Admin: 08/20/18 08:58 Dose: 2 mg Mupirocin (Bactroban Ointment (For Decolonization) -) 1 applic NS BID [facility] Stop: 08/22/18 21:59 Last Admin: 08/20/18 11:28 Dose: 1 applic Pantoprazole Sodium (Protonix Iv) 40 mg IVPUSH DAILY [facility] Last Admin: 08/20/18 10:48 Dose: 40 mg Ranolazine (Ranexa -) 500 mg PO BID [facility] Last Admin: 08/20/18 11:09 Dose: 500 mg Spironolactone (Aldactone -) 25 mg NGT DAILY [facility] Last Admin: 08/20/18 11:10 Dose: 25 mg - Objective Vital Signs: Vital Signs Temperature 101.8 F H 08/20/18 17:00 Pulse Rate 108 H 08/20/18 17:00 Respiratory Rate 25 H 08/20/18 19:00 Blood Pressure 127/66 08/20/18 17:00 O2 Sat by Pulse Oximetry (%) 99 08/20/18 09:00 Constitutional: Yes: No Distress HENT: Yes: Atraumatic Neck: Yes: Supple Cardiovascular: Yes: Regular Rate and Rhythm Respiratory: Yes: Rhonchi Extremities: Yes: WNL Edema: No Peripheral Pulses WNL: Yes Neurological: Yes: Other (intubated and sedated) Labs: CBC, BMP 08/20/18 05:30 08/20/18 05:30 INR, PTT INR 1.49 (0.83-1.09) H 08/08/18 19:37 Problem List - Problems (1) Acute renal failure Assessment/Plan: monitor Code(s): N17.9 - ACUTE KIDNEY FAILURE, UNSPECIFIED Qualifiers: Acute renal failure type: unspecified Qualified Code(s): N17.9 - Acute kidney failure, unspecified (2) Altered mental status, unspecified Code(s): R41.82 - ALTERED MENTAL STATUS, UNSPECIFIED Qualifiers: Altered mental status type: somnolence Qualified Code(s): R40.0 - Somnolence (3) COPD with acute exacerbation Assessment/Plan: steroids duo nebs INTUBATED Code(s): J44.1 - CHRONIC OBSTRUCTIVE PULMONARY DISEASE W (ACUTE) EXACERBATION (4) Elevated troponin I level Code(s): R74.8 - ABNORMAL LEVELS OF OTHER SERUM ENZYMES (5) Hyperkalemia Code(s): E87.5 - HYPERKALEMIA (6) COPD (chronic obstructive pulmonary disease) Code(s): J44.9 - CHRONIC OBSTRUCTIVE PULMONARY DISEASE, UNSPECIFIED Qualifiers: (7) HIV Assessment/Plan: continue home meds Code(s): Z21 - ASYMPTOMATIC HUMAN IMMUNODEFICIENCY VIRUS INFECTION STATUS (8) HTN (hypertension) Assessment/Plan: monitor on meds Code(s): I10 - ESSENTIAL (PRIMARY) HYPERTENSION Qualifiers: Hypertension type: essential hypertension Qualified Code(s): I10 - Essential (primary) hypertension (9) Hyperlipidemia Code(s): E78.5 - HYPERLIPIDEMIA, UNSPECIFIED Qualifiers: Hyperlipidemia type: pure hypercholesterolemia Qualified Code(s): E78.00 - Pure hypercholesterolemia, unspecified; E78.0 - Pure hypercholesterolemia (10) PVD (peripheral vascular disease) Code(s): I73.9 - PERIPHERAL VASCULAR DISEASE, UNSPECIFIED (11) CHF (congestive heart failure) Code(s): I50.9 - HEART FAILURE, UNSPECIFIED Qualifiers: Heart failure type: diastolic Heart failure chronicity: chronic Qualified Code(s): I50.32 - Chronic diastolic (congestive) heart failure (12) Sepsis Assessment/Plan: on abx monitor wbc Code(s): A41.9 - SEPSIS, UNSPECIFIED ORGANISM Assessment/Plan cc time in icu 35 min
[2018-08-20] MEDS: BANATROL PLUS POWDER PACKET PO SCH ×2 (22:20→23:00)
[2018-08-21] MEDS ORDERED: PT OWN MED DRAWER 7, Y5N ONE ×7 (01:24→23:13)
[2018-08-21] MEDS: NAFCILLIN - 2 GM in DEXTROSE 5%-WATER - 100 ML IVPB SCH ×6 (02:26→22:30)
[2018-08-21] MEDS: RANOLAZINE E.R. 500 MG TABLET (FP) PO SCH ×3 (02:26→21:33)
[2018-08-21] MEDS: CHLORHEXIDINE GLUCONATE 0.12% 15ML CUP MM SCH ×3 (02:26→21:35)
[2018-08-21] MEDS: CEFTAZIDIME PENTAHYDRATE 2 GM in DEXTROSE 5%-WATER - 100 ML IVPB SCH (02:26)
[2018-08-21] MEDS: methylPREDNISolone NA SUCC 40 MG/1 ML VIAL IVPUSH SCH ×3 (02:29→17:15)
[2018-08-21] MEDS ORDERED: fentaNYL CITRATE 250 MCG/5 ML VIAL ONE ×4 (02:33→22:15)
[2018-08-21 05:42] LABS: HEMATOCRIT 30.7 % (32.4-45.2); HEMOGLOBIN 10.1 GM/dL (10.7-15.3); MCH 30.6 pg (25.7-33.7); MCHC 32.8 g/dl (32.0-36.0); MEAN CELL VOLUME 93.3 fl (80-96); PLATELET COUNT 332 K/MM3 (134-434); RBC 3.29 M/mm3 (3.60-5.2); RDW 16.1 % (11.6-15.6); WHITE BLOOD COUNT 28.4 K/mm3 (4.0-10.0)
[2018-08-21] MEDS: hydrALAZINE HCL 50 MG TABLET (FP) NGT SCH ×3 (06:05→21:34)
[2018-08-21] MEDS: BANATROL PLUS POWDER PACKET PO SCH ×3 (06:06→21:34)
[2018-08-21] MEDS: HEPARIN NA (PORCINE) 5,000 UNITS/ML 1ML VIAL SQ SCH ×3 (06:06→21:33)
[2018-08-21 06:14] LABS: ALK PHOS 58 U/L (45-117); ANION GAP 5 MMOL/L (8-16); BILIRUBIN,TOTAL 1.2 mg/dL (0.2-1); BLOOD UREA NITROGEN 57 mg/dL (7-18); CALCIUM 9.5 mg/dL (8.5-10.1); CHLORIDE 102 mmol/L (98-107); CO2 35 mmol/L (21-32); GLUCOSE,RANDOM 175 mg/dL (74-106); MAGNESIUM 2.3 mg/dL (1.8-2.4); PHOSPHOROUS 4.5 mg/dL (2.5-4.9); POTASSIUM 3.8 mmol/L (3.5-5.1); SGOT/AST 15 U/L (15-37); SGPT/ALT 14 U/L (13-61); SODIUM 142 mmol/L (136-145); TOT PROT 6.2 g/dl (6.4-8.2)
[2018-08-21] MEDS: PROPOFOL 1,000,000 MCG/100 ML VIAL IVPB SCH (08:00)
--- NOTE | 2018-08-21 08:18 | PN ---
Progress Note (short form) - Note Progress Note: remains intubated-since 4/3 day #2 nafcillin/fortaz Vital Signs Period Temp Pulse Resp BP Sys/Buck Pulse Ox Last 24 Hr 98.5 F-102.4 F 96-115 18-33 100-170/62-92 99-99 orally intubated remains sedated on oral tube feeds cor-rrr lungs decreased bs at bases abd soft,nt ext trace edema +rectal tube CBC, BMP 08/21/18 05:30 08/21/18 05:30 Microbiology 08/18/18 11:00 Sputum - Endotrachea Suction/Ventilator Gram Stain - Final 08/18/18 11:00 Sputum - Endotrachea Suction/Ventilator Sputum Culture - Preliminary Pseudomonas Species Lactose Fermenting Neg Bacilli Staphylococcus Aureus 08/18/18 14:15 Stool Salmonella/Shigella Culture - Final 08/18/18 14:15 Stool Campylobacter Culture - Final NO GROWTH OF CAMPYLOBACTER SPECIES OBTAINED 08/18/18 14:15 Stool Yersinia Culture - Final NO GROWTH OF YERSINIA SPECIES OBTAINED 08/18/18 14:15 Stool Vibrio Culture - Final NO GROWTH OF VIBRIO SPECIES OBTAINED 08/18/18 14:15 Stool Escherichia coli 0157 Culture - Final NO GROWTH OF E COLI 0157 OBTAINED 08/19/18 10:17 Stool Clostridioides difficile Antigen - Final 08/19/18 10:17 Stool Clostridioides difficile Toxin Assay - Final 08/18/18 09:35 Blood - Peripheral Venous Blood Culture - Preliminary NO GROWTH OBTAINED AFTER 48 HOURS, INCUBATION TO CONTINUE FOR 3 DAYS. 08/18/18 09:25 Blood - Peripheral Venous Blood Culture - Preliminary NO GROWTH OBTAINED AFTER 48 HOURS, INCUBATION TO CONTINUE FOR 3 DAYS. 08/15/18 09:40 Blood - Peripheral Venous Blood Culture - Preliminary NO GROWTH OBTAINED AFTER 96 HOURS, INCUBATION TO CONTINUE FOR 1 DAYS. 08/15/18 10:18 Blood - Peripheral Venous Blood Culture - Final Staphylococcus Aureus 08/18/18 11:00 Urine - Urine Torres Urine Culture - Final NO GROWTH OBTAINED 08/13/18 17:00 Urine - Urine Torres Urine Culture - Final Escherichia Coli Klebsiella Pneumoniae Enterococcus Faecalis 08/13/18 16:00 Sputum - Endotracheal Suction W/O Vent Gram Stain - Final 08/13/18 16:00 Sputum - Endotracheal Suction W/O Vent Sputum Culture - Final Staphylococcus Aureus Pseudomonas Aeruginosa 08/08/18 19:37 Blood - Peripheral Venous Blood Culture - Final NO GROWTH AFTER 5 DAYS INCUBATION 08/08/18 19:37 Blood - Peripheral Venous Blood Culture - Final NO GROWTH AFTER 5 DAYS INCUBATION 08/08/18 20:39 Urine - Urine - Catheterized Urine Culture - Final NO GROWTH OBTAINED Current Medications Abacavir/Dolutegravir/Lamivudine (Triumeq (Non-Formulary)) 1 each PO DAILY [facility] Last Admin: 08/20/18 11:27 Dose: 1 each Acetaminophen (Tylenol Oral Solution -) 1,000 mg PO Q6H PRN PRN Reason: FEVER Last Admin: 08/20/18 14:00 Dose: 1,000 mg Albuterol/Ipratropium (Duoneb -) 1 amp NEB RQID [facility] Last Admin: 08/20/18 20:54 Dose: 1 amp Carvedilol (Coreg -) 12.5 mg PO BID [facility] Last Admin: 08/20/18 23:00 Dose: Not Given Chlorhexidine Gluconate (Peridex -) 15 ml MM BID [facility] Last Admin: 08/21/18 02:26 Dose: 15 ml Clopidogrel Bisulfate (Plavix -) 75 mg PO DAILY [facility] Last Admin: 08/20/18 11:08 Dose: 75 mg Heparin Sodium (Porcine) (Heparin -) 5,000 unit SQ TID [facility] Last Admin: 08/21/18 06:06 Dose: 5,000 unit Hydralazine HCl (Apresoline -) 50 mg NGT TID [facility] Last Admin: 08/21/18 06:05 Dose: 50 mg Ceftazidime 2 gm/ Dextrose 100 mls @ 200 mls/hr IVPB Q8H-IV [facility]; Protocol Last Admin: 08/21/18 02:26 Dose: 200 mls/hr Nafcillin Sodium 2 gm/ (Dextrose) 100 mls @ 100 mls/hr IVPB Q4H-IV [facility]; Protocol Last Admin: 08/21/18 06:06 Dose: 100 mls/hr Fentanyl 500 mcg/ Dextrose 100 mls @ 5 mls/hr IVPB TITR [facility]; Protocol Last Admin: 08/20/18 22:38 Dose: 100 mcg/hr, 20 mls/hr Propofol (Diprivan -) 1,000,000 mcg in 100 mls @ 16.98 mls/hr IVPB TITR [facility]; Protocol Last Admin: 08/20/18 16:15 Dose: 50 mcg/kg/min, 16.98 mls/hr Losartan Potassium (Cozaar -) 50 mg PO BID [facility] Last Admin: 08/20/18 22:12 Dose: 50 mg Methylprednisolone Sodium Succinate (Solu-Medrol -) 40 mg IVPUSH Q8H-IV [facility] Last Admin: 08/21/18 02:29 Dose: 40 mg Midazolam HCl (Versed -) 2 mg IVPUSH Q3H PRN PRN Reason: AGITATION Last Admin: 08/20/18 22:35 Dose: 2 mg Mupirocin (Bactroban Ointment (For Decolonization) -) 1 applic NS BID [facility] Stop: 08/22/18 21:59 Last Admin: 08/20/18 22:21 Dose: 1 applic Pantoprazole Sodium (Protonix Iv) 40 mg IVPUSH DAILY [facility] Last Admin: 08/20/18 10:48 Dose: 40 mg Ranolazine (Ranexa -) 500 mg PO BID [facility] Last Admin: 08/21/18 02:26 Dose: 500 mg Spironolactone (Aldactone -) 25 mg NGT DAILY [facility] Last Admin: 08/20/18 11:10 Dose: 25 mg a/p Respiratory failure MSSA bacteremia HCAP diarrhea HIV -CD4 440 in May-on Triumeq continue nafcillin and ceftaz day #2 cdiff negtive afebrile today repeat blood cultures if she has fever again overall status guarded d/w ICU resident
[2018-08-21] MEDS: ALBUTEROL SO4 2.5/IPRATROPIUM 0.5 INH SOL 3 ML VIAL.NEB. NEB SCH ×4 (08:20→20:16)
--- NOTE | 2018-08-21 08:51 | PN ---
Progress Note, Physician Chief Complaint: Events noted Remains in ICU Intubated and sedated History of Present Illness: Patient was seen and examined. Mechanical ventilation. Chart was reviewed - Current Medication List Current Medications: Active Medications Abacavir/Dolutegravir/Lamivudine (Triumeq (Non-Formulary)) 1 each PO DAILY [facility] Last Admin: 08/20/18 11:27 Dose: 1 each Acetaminophen (Tylenol Oral Solution -) 1,000 mg PO Q6H PRN PRN Reason: FEVER Last Admin: 08/20/18 14:00 Dose: 1,000 mg Albuterol/Ipratropium (Duoneb -) 1 amp NEB RQID [facility] Last Admin: 08/21/18 08:20 Dose: 1 amp Carvedilol (Coreg -) 12.5 mg PO BID [facility] Last Admin: 08/20/18 23:00 Dose: Not Given Chlorhexidine Gluconate (Peridex -) 15 ml MM BID [facility] Last Admin: 08/21/18 02:26 Dose: 15 ml Clopidogrel Bisulfate (Plavix -) 75 mg PO DAILY [facility] Last Admin: 08/20/18 11:08 Dose: 75 mg Heparin Sodium (Porcine) (Heparin -) 5,000 unit SQ TID [facility] Last Admin: 08/21/18 06:06 Dose: 5,000 unit Hydralazine HCl (Apresoline -) 50 mg NGT TID [facility] Last Admin: 08/21/18 06:05 Dose: 50 mg Ceftazidime 2 gm/ Dextrose 100 mls @ 200 mls/hr IVPB Q8H-IV [facility]; Protocol Last Admin: 08/21/18 02:26 Dose: 200 mls/hr Nafcillin Sodium 2 gm/ (Dextrose) 100 mls @ 100 mls/hr IVPB Q4H-IV [facility]; Protocol Last Admin: 08/21/18 06:06 Dose: 100 mls/hr Fentanyl 500 mcg/ Dextrose 100 mls @ 5 mls/hr IVPB TITR [facility]; Protocol Last Admin: 08/20/18 22:38 Dose: 100 mcg/hr, 20 mls/hr Propofol (Diprivan -) 1,000,000 mcg in 100 mls @ 16.98 mls/hr IVPB TITR [facility]; Protocol Last Admin: 08/20/18 16:15 Dose: 50 mcg/kg/min, 16.98 mls/hr Losartan Potassium (Cozaar -) 50 mg PO BID [facility] Last Admin: 08/20/18 22:12 Dose: 50 mg Methylprednisolone Sodium Succinate (Solu-Medrol -) 40 mg IVPUSH Q8H-IV [facility] Last Admin: 08/21/18 02:29 Dose: 40 mg Midazolam HCl (Versed -) 2 mg IVPUSH Q3H PRN PRN Reason: AGITATION Last Admin: 08/20/18 22:35 Dose: 2 mg Mupirocin (Bactroban Ointment (For Decolonization) -) 1 applic NS BID [facility] Stop: 08/22/18 21:59 Last Admin: 08/20/18 22:21 Dose: 1 applic Pantoprazole Sodium (Protonix Iv) 40 mg IVPUSH DAILY [facility] Last Admin: 08/20/18 10:48 Dose: 40 mg Ranolazine (Ranexa -) 500 mg PO BID [facility] Last Admin: 08/21/18 02:26 Dose: 500 mg Spironolactone (Aldactone -) 25 mg NGT DAILY [facility] Last Admin: 08/20/18 11:10 Dose: 25 mg - Objective Vital Signs: Vital Signs Temperature 98.5 F 08/21/18 03:00 Pulse Rate 111 H 08/21/18 07:00 Respiratory Rate 26 H 08/21/18 07:00 Blood Pressure 170/83 08/21/18 07:00 O2 Sat by Pulse Oximetry (%) 99 08/20/18 21:00 Cardiovascular: Yes: Regular Rate and Rhythm, Tachycardia, S1, S2 Respiratory: Yes: Intubated, Mechanically Ventilated Gastrointestinal: Yes: Normal Bowel Sounds, Soft Edema: No Labs: CBC, BMP 08/21/18 05:30 08/21/18 05:30 Problem List - Problems (1) Altered mental status, unspecified Code(s): R41.82 - ALTERED MENTAL STATUS, UNSPECIFIED Qualifiers: Altered mental status type: somnolence Qualified Code(s): R40.0 - Somnolence (2) CHF (congestive heart failure) Code(s): I50.9 - HEART FAILURE, UNSPECIFIED Qualifiers: Heart failure type: diastolic Heart failure chronicity: chronic Qualified Code(s): I50.32 - Chronic diastolic (congestive) heart failure (3) COPD with acute exacerbation Code(s): J44.1 - CHRONIC OBSTRUCTIVE PULMONARY DISEASE W (ACUTE) EXACERBATION (4) Elevated troponin I level Code(s): R74.8 - ABNORMAL LEVELS OF OTHER SERUM ENZYMES (5) Leukocytosis Code(s): D72.829 - ELEVATED WHITE BLOOD CELL COUNT, UNSPECIFIED (6) Respiratory failure requiring intubation Code(s): J96.90 - RESPIRATORY FAILURE, UNSP, UNSP W HYPOXIA OR HYPERCAPNIA (7) Severe pulmonary arterial systolic hypertension Code(s): I27.21 - SECONDARY PULMONARY ARTERIAL HYPERTENSION (8) Asthma Code(s): J45.909 - UNSPECIFIED ASTHMA, UNCOMPLICATED (9) Asymptomatic cholelithiasis Code(s): K80.20 - CALCULUS OF GALLBLADDER W/O CHOLECYSTITIS W/O OBSTRUCTION (10) COPD (chronic obstructive pulmonary disease) Code(s): J44.9 - CHRONIC OBSTRUCTIVE PULMONARY DISEASE, UNSPECIFIED Qualifiers: (11) HIV Code(s): Z21 - ASYMPTOMATIC HUMAN IMMUNODEFICIENCY VIRUS INFECTION STATUS (12) HTN (hypertension) Code(s): I10 - ESSENTIAL (PRIMARY) HYPERTENSION Qualifiers: Hypertension type: essential hypertension Qualified Code(s): I10 - Essential (primary) hypertension (13) Hyperlipidemia Code(s): E78.5 - HYPERLIPIDEMIA, UNSPECIFIED Qualifiers: Hyperlipidemia type: pure hypercholesterolemia Qualified Code(s): E78.00 - Pure hypercholesterolemia, unspecified; E78.0 - Pure hypercholesterolemia (14) PVD (peripheral vascular disease) Code(s): I73.9 - PERIPHERAL VASCULAR DISEASE, UNSPECIFIED (15) S/P CABG (coronary artery bypass graft) Code(s): Z95.1 - PRESENCE OF AORTOCORONARY BYPASS GRAFT Assessment/Plan 1. Acute on chronic hypercapneic/hypoxemic respiratory failure - mechanical ventilation 2. Acute exacerbation of chronic obstructive pulmonary disease 3. Right Heart Failure/Volume Overload with Severe Pulmonary HTN 4. Diastolic dysfunction 5. CAD s/p CABG, demand ischemia 7. HTN 8. Hypercholesterolemia 9. HIV and Hepatitis C 10. PAD s/p SFA stent 11. Pre-renal Acute on CKD improving, hyperkalemia and hyponatremia 12. Toxic metabolic encephelopathy 13. Cholelithiasis PLAN: 1. Continue Aldactone 25 mg QD and Losartan 50 mg BID as tolerated 2. Continue Carvedilol 12.5 mg BID, Plavix 75 mg QD, Hydralazine 50 mg TID, Lipitor 10 mg QD and Ranexa 500 mg BID as tolerated (via NG) 3. IV steroid, bronchodilator and vent management as per critical care team. 4. Continue antibiotic coverage 5. DVT prophylaxis Guarded. Chato Beltran MD
--- NOTE | 2018-08-21 09:31 | PN ---
Teaching Attending Note Name of Resident: Rodrick Farrar ATTENDING PHYSICIAN STATEMENT I saw and evaluated the patient. I reviewed the resident's note and discussed the case with the resident. I agree with the resident's findings and plan as documented. SUBJECTIVE: Pt seen and examined in the ICU. Remains intubated, sedated but still tachypneic and labored breaths. Fever curve trending down. OBJECTIVE: Vital Signs Period Temp Pulse Resp BP Sys/Buck Pulse Ox Last 24 Hr 98.5 F-102.4 F 96-115 18-32 100-170/62-90 99 Intake & Output 08/18/18 08/19/18 08/20/18 08/21/18 23:59 23:59 23:59 23:59 Intake Total 1705 1176 3766 868 Output Total 1050 300 Balance 854 540 1954 868 Weight 54.9 kg 55.6 kg 56.6 kg 56.6 kg Gen: intubated, sedated, tachypneic Heart: RRR Lung: scattered rhonchi Abd: soft, nontender Ext: no edema CBC, BMP 08/21/18 05:30 08/21/18 05:30 Active Medications Abacavir/Dolutegravir/Lamivudine (Triumeq (Non-Formulary)) 1 each PO DAILY [facility] Last Admin: 08/20/18 11:27 Dose: 1 each Acetaminophen (Tylenol Oral Solution -) 1,000 mg PO Q6H PRN PRN Reason: FEVER Last Admin: 08/20/18 14:00 Dose: 1,000 mg Albuterol/Ipratropium (Duoneb -) 1 amp NEB RQID [facility] Last Admin: 08/21/18 08:20 Dose: 1 amp Carvedilol (Coreg -) 12.5 mg PO BID [facility] Last Admin: 08/20/18 23:00 Dose: Not Given Chlorhexidine Gluconate (Peridex -) 15 ml MM BID [facility] Last Admin: 08/21/18 02:26 Dose: 15 ml Clopidogrel Bisulfate (Plavix -) 75 mg PO DAILY [facility] Last Admin: 08/20/18 11:08 Dose: 75 mg Heparin Sodium (Porcine) (Heparin -) 5,000 unit SQ TID [facility] Last Admin: 08/21/18 06:06 Dose: 5,000 unit Hydralazine HCl (Apresoline -) 50 mg NGT TID [facility] Last Admin: 08/21/18 06:05 Dose: 50 mg Ceftazidime 2 gm/ Dextrose 100 mls @ 200 mls/hr IVPB Q8H-IV [facility]; Protocol Last Admin: 08/21/18 02:26 Dose: 200 mls/hr Nafcillin Sodium 2 gm/ (Dextrose) 100 mls @ 100 mls/hr IVPB Q4H-IV [facility]; Protocol Last Admin: 08/21/18 06:06 Dose: 100 mls/hr Fentanyl 500 mcg/ Dextrose 100 mls @ 5 mls/hr IVPB TITR [facility]; Protocol Last Admin: 08/20/18 22:38 Dose: 100 mcg/hr, 20 mls/hr Propofol (Diprivan -) 1,000,000 mcg in 100 mls @ 16.98 mls/hr IVPB TITR [facility]; Protocol Last Admin: 08/20/18 16:15 Dose: 50 mcg/kg/min, 16.98 mls/hr Losartan Potassium (Cozaar -) 50 mg PO BID [facility] Last Admin: 08/20/18 22:12 Dose: 50 mg Methylprednisolone Sodium Succinate (Solu-Medrol -) 40 mg IVPUSH Q8H-IV [facility] Last Admin: 08/21/18 02:29 Dose: 40 mg Midazolam HCl (Versed -) 2 mg IVPUSH Q3H PRN PRN Reason: AGITATION Last Admin: 08/20/18 22:35 Dose: 2 mg Mupirocin (Bactroban Ointment (For Decolonization) -) 1 applic NS BID [facility] Stop: 08/22/18 21:59 Last Admin: 08/20/18 22:21 Dose: 1 applic Pantoprazole Sodium (Protonix Iv) 40 mg IVPUSH DAILY [facility] Last Admin: 08/20/18 10:48 Dose: 40 mg Ranolazine (Ranexa -) 500 mg PO BID [facility] Last Admin: 08/21/18 02:26 Dose: 500 mg Spironolactone (Aldactone -) 25 mg NGT DAILY [facility] Last Admin: 08/20/18 11:10 Dose: 25 mg ASSESSMENT AND PLAN: Acute on Chronic Hypoxic and Hypercapneic Respiratory Failure Acute COPD Exacerbation Pneumonia Volume Overload Pulmonary HTN LV Diastolic Dysfunction CAD s/p CABG +Troponins likely Demand Ischemia PAD HIV Hep C HTN Hypercholesterolemia - continue antibiotics - f/u cultures - continue medrol - inhaled bronchodilators - taper FiO2 to keep SpO2 >90% - add versed gtt for vent synchrony - not a candidate for weaning at this time given tachypnea on assist control - enteral feeds - DVT/GI prophylaxis - continue ICU monitoring - pallative care eval, will likely need tracheostomy for prolonged intubation critical care time spent in reviewing chart, evaluating patient and formulating plan 35 min
[2018-08-21] MEDS: SPIRONOLACTONE 25 MG TABLET (FP) NGT SCH (09:50)
[2018-08-21] MEDS: CARVEDILOL 12.5 MG TABLET (FP) PO SCH ×2 (09:51→21:33)
[2018-08-21] MEDS: MUPIROCIN 2% TOPICAL OINTMENT FOR DECOLONIZATION NS SCH ×2 (09:51→21:34)
[2018-08-21] MEDS: LOSARTAN POTASSIUM 50 MG TABLET (FP) PO SCH ×2 (09:51→21:34)
[2018-08-21] MEDS: CLOPIDOGREL BISULFATE 75 MG TABLET (FP) PO SCH (09:53)
[2018-08-21] MEDS: PANTOPRAZOLE SODIUM 40 MG VIAL IVPUSH SCH (09:53)
[2018-08-21] MEDS: ABACAVIR/DOLUTEGRAVIR/LAMIVUDI (TRIUMEQ) TABLET -NF PO SCH (09:54)
[2018-08-21] MEDS ORDERED: DEXTROSE 5%-WATER 100 ML IVPB ONE (10:36)
[2018-08-21] MEDS ORDERED: MIDAZOLAM 100 MG/100 ML MG IVPB ONE (10:36)
[2018-08-21] MEDS ORDERED: MEROPENEM 1 GM VIAL (RESTRICTED TO ID) IVPB ONE (10:36)
[2018-08-21] MEDS: MEROPENEM 1 GM in DEXTROSE 5%-WATER 100 ML IVPB SCH ×2 (10:38→20:01)
[2018-08-21] MEDS: MIDAZOLAM 100 MG in SODIUM CHLORIDE 100 ML IVPB SCH (10:45)
--- NOTE | 2018-08-21 10:55 | PN ---
Progress Note, Physician History of Present Illness: Seen and evaluated at bedside. FiO2 went up to 70% overnight due to desaturation. Remains tachycardic and tachypenic on propofol and fentnyl. Copious secretions requiring frequent suctions. - Current Medication List Current Medications: Active Medications Abacavir/Dolutegravir/Lamivudine (Triumeq (Non-Formulary)) 1 each PO DAILY [facility] Last Admin: 08/21/18 09:54 Dose: 1 each Acetaminophen (Tylenol Oral Solution -) 1,000 mg PO Q6H PRN PRN Reason: FEVER Last Admin: 08/20/18 14:00 Dose: 1,000 mg Albuterol/Ipratropium (Duoneb -) 1 amp NEB RQID [facility] Last Admin: 08/21/18 08:20 Dose: 1 amp Carvedilol (Coreg -) 12.5 mg PO BID [facility] Last Admin: 08/21/18 09:51 Dose: 12.5 mg Chlorhexidine Gluconate (Peridex -) 15 ml MM BID [facility] Last Admin: 08/21/18 09:52 Dose: 15 ml Clopidogrel Bisulfate (Plavix -) 75 mg PO DAILY [facility] Last Admin: 08/21/18 09:53 Dose: 75 mg Heparin Sodium (Porcine) (Heparin -) 5,000 unit SQ TID [facility] Last Admin: 08/21/18 06:06 Dose: 5,000 unit Hydralazine HCl (Apresoline -) 50 mg NGT TID [facility] Last Admin: 08/21/18 06:05 Dose: 50 mg Nafcillin Sodium 2 gm/ (Dextrose) 100 mls @ 100 mls/hr IVPB Q4H-IV [facility]; Protocol Last Admin: 08/21/18 06:06 Dose: 100 mls/hr Fentanyl 500 mcg/ Dextrose 100 mls @ 5 mls/hr IVPB TITR [facility]; Protocol Last Admin: 08/20/18 22:38 Dose: 100 mcg/hr, 20 mls/hr Propofol (Diprivan -) 1,000,000 mcg in 100 mls @ 16.98 mls/hr IVPB TITR [facility]; Protocol Last Admin: 08/21/18 08:00 Dose: 50 mcg/kg/min, 16.98 mls/hr Meropenem 1 gm/ Dextrose 100 mls @ 200 mls/hr IVPB Q8H-IV [facility] Last Admin: 08/21/18 10:38 Dose: 200 mls/hr Midazolam HCl 100 mg/ Sodium (Chloride) 100 mls @ 1 mls/hr IVPB TITR [facility]; Protocol Last Admin: 08/21/18 10:45 Dose: 1 mg/hr, 1 mls/hr Losartan Potassium (Cozaar -) 50 mg PO BID [facility] Last Admin: 08/21/18 09:51 Dose: 50 mg Methylprednisolone Sodium Succinate (Solu-Medrol -) 40 mg IVPUSH Q8H-IV [facility] Last Admin: 08/21/18 09:54 Dose: 40 mg Midazolam HCl (Versed -) 2 mg IVPUSH Q3H PRN PRN Reason: AGITATION Last Admin: 08/20/18 22:35 Dose: 2 mg Mupirocin (Bactroban Ointment (For Decolonization) -) 1 applic NS BID [facility] Stop: 08/22/18 21:59 Last Admin: 08/21/18 09:51 Dose: 1 applic Pantoprazole Sodium (Protonix Iv) 40 mg IVPUSH DAILY [facility] Last Admin: 08/21/18 09:53 Dose: 40 mg Ranolazine (Ranexa -) 500 mg PO BID [facility] Last Admin: 08/21/18 09:53 Dose: 500 mg Spironolactone (Aldactone -) 25 mg NGT DAILY [facility] Last Admin: 08/21/18 09:50 Dose: 25 mg - Objective Vital Signs: Vital Signs Temperature 98.9 F 08/21/18 08:00 Pulse Rate 115 H 08/21/18 10:00 Respiratory Rate 17 08/21/18 10:25 Blood Pressure 146/76 08/21/18 10:00 O2 Sat by Pulse Oximetry (%) 95 08/21/18 10:15 Constitutional: Yes: Other (intubated and sedated) Cardiovascular: Yes: Tachycardia, S1, S2. No: Murmur Respiratory: Yes: Intubated, Rales, Rhonchi Gastrointestinal: Yes: Normal Bowel Sounds, Soft Labs: CBC, BMP 08/21/18 05:30 08/21/18 05:30 INR, PTT INR 1.49 (0.83-1.09) H 08/08/18 19:37 Impression/Plan Impression/Plan: 67 up F with HTN, CAD s/p CABG in 2009, PVD with B/L LE stents, HIV, HEP C, COPD and CHF. Admitted to the ICU for Acute hypoxic hypercapnic respiratory failure and dehydration. Neuro: -intubated and sedated on propofol and fentanyl -will add versed for better vent synchrony Cardiovascular: -c/w home Clopidogrel -c/w home Carvedilol, Hydralazine, Losartan for BP control -c/w home Ranolazine and Spironolactone Pulm / Resp: - remains intubated and unable to wean, day 11 - b/l PNA on abx - frequent suctions - Continue albuterol PRN. Standing QID nebs changed from albuterol to duonebs - Continuing Solu-medrol at 40mg q8h - CXR is improving - cont. discussion on trach w/ family Gastrointestinal: - c/w rectal tube and banatrol packet TID -Stool for C.Diff negative Infectious Disease: improving b/l PNA - cont. nafcillin and cefazidime and HAART Therapy per ID - cont. to have overnight fever and leucytosis worsened today - Sputum Cx growing pseudomonas, MSSA FEN: - No fluids indicated - lytes WNL - Tube Feed per dietary Prophylaxis: -DVT: Heparin SQ -GI: Pantoprazole Dispo: - Continue to monitor the intubated pt in the ICU. Trach discussion with family. Visit type - Emergency Visit Emergency Visit: No - New Patient This patient is new to me today: No - Critical Care Critical Care patient: Yes Total Critical Care Time (in minutes): 35 Critical Care Statement: The care of this patient involved high complexity decision making to prevent further life threatening deterioration of the patient 's condition and/or to evaluate & treat vital organ system(s) failure or risk of failure.
[2018-08-21] MEDS: FENTANYL INJECTION 500 MCG in DEXTROSE 5%-WATER - 90 ML IVPB SCH ×2 (11:27→16:29)
--- NOTE | 2018-08-21 17:21 | PN ---
Progress Note, Physician History of Present Illness: intubated - Current Medication List Current Medications: Active Medications Abacavir/Dolutegravir/Lamivudine (Triumeq (Non-Formulary)) 1 each PO DAILY [facility] Last Admin: 08/21/18 09:54 Dose: 1 each Acetaminophen (Tylenol Oral Solution -) 1,000 mg PO Q6H PRN PRN Reason: FEVER Last Admin: 08/20/18 14:00 Dose: 1,000 mg Albuterol/Ipratropium (Duoneb -) 1 amp NEB RQID [facility] Last Admin: 08/21/18 08:20 Dose: 1 amp Carvedilol (Coreg -) 12.5 mg PO BID [facility] Last Admin: 08/21/18 09:51 Dose: 12.5 mg Chlorhexidine Gluconate (Peridex -) 15 ml MM BID [facility] Last Admin: 08/21/18 09:52 Dose: 15 ml Clopidogrel Bisulfate (Plavix -) 75 mg PO DAILY [facility] Last Admin: 08/21/18 09:53 Dose: 75 mg Heparin Sodium (Porcine) (Heparin -) 5,000 unit SQ TID [facility] Last Admin: 08/21/18 13:41 Dose: 5,000 unit Hydralazine HCl (Apresoline -) 50 mg NGT TID [facility] Last Admin: 08/21/18 13:38 Dose: Not Given Nafcillin Sodium 2 gm/ (Dextrose) 100 mls @ 100 mls/hr IVPB Q4H-IV [facility]; Protocol Last Admin: 08/21/18 17:15 Dose: 100 mls/hr Fentanyl 500 mcg/ Dextrose 100 mls @ 5 mls/hr IVPB TITR [facility]; Protocol Last Admin: 08/21/18 16:29 Dose: 100 mcg/hr, 20 mls/hr Propofol (Diprivan -) 1,000,000 mcg in 100 mls @ 16.98 mls/hr IVPB TITR [facility]; Protocol Last Admin: 08/21/18 08:00 Dose: 50 mcg/kg/min, 16.98 mls/hr Meropenem 1 gm/ Dextrose 100 mls @ 200 mls/hr IVPB Q8H-IV [facility] Last Admin: 08/21/18 10:38 Dose: 200 mls/hr Midazolam HCl 100 mg/ Sodium (Chloride) 100 mls @ 1 mls/hr IVPB TITR [facility]; Protocol Last Admin: 08/21/18 10:45 Dose: 1 mg/hr, 1 mls/hr Losartan Potassium (Cozaar -) 50 mg PO BID [facility] Last Admin: 08/21/18 09:51 Dose: 50 mg Methylprednisolone Sodium Succinate (Solu-Medrol -) 40 mg IVPUSH Q8H-IV [facility] Last Admin: 08/21/18 17:15 Dose: 40 mg Midazolam HCl (Versed -) 2 mg IVPUSH Q3H PRN PRN Reason: AGITATION Last Admin: 08/20/18 22:35 Dose: 2 mg Mupirocin (Bactroban Ointment (For Decolonization) -) 1 applic NS BID [facility] Stop: 08/22/18 21:59 Last Admin: 08/21/18 09:51 Dose: 1 applic Pantoprazole Sodium (Protonix Iv) 40 mg IVPUSH DAILY [facility] Last Admin: 08/21/18 09:53 Dose: 40 mg Ranolazine (Ranexa -) 500 mg PO BID [facility] Last Admin: 08/21/18 09:53 Dose: 500 mg Spironolactone (Aldactone -) 25 mg NGT DAILY [facility] Last Admin: 08/21/18 09:50 Dose: 25 mg - Objective Vital Signs: Vital Signs Temperature 98.1 F 08/21/18 16:00 Pulse Rate 102 H 08/21/18 16:00 Respiratory Rate 14 08/21/18 16:00 Blood Pressure 91/61 08/21/18 16:00 O2 Sat by Pulse Oximetry (%) 95 08/21/18 10:15 Constitutional: Yes: No Distress HENT: Yes: Atraumatic Neck: Yes: Supple Cardiovascular: Yes: Regular Rate and Rhythm Respiratory: Yes: Rhonchi Gastrointestinal: Yes: Normal Bowel Sounds Extremities: Yes: WNL Edema: No Peripheral Pulses WNL: Yes Neurological: Yes: Other (intubated) Labs: CBC, BMP 08/21/18 05:30 08/21/18 05:30 INR, PTT INR 1.49 (0.83-1.09) H 08/08/18 19:37 Problem List - Problems (1) Acute renal failure Assessment/Plan: monitor Code(s): N17.9 - ACUTE KIDNEY FAILURE, UNSPECIFIED Qualifiers: Acute renal failure type: unspecified Qualified Code(s): N17.9 - Acute kidney failure, unspecified (2) Altered mental status, unspecified Code(s): R41.82 - ALTERED MENTAL STATUS, UNSPECIFIED Qualifiers: Altered mental status type: somnolence Qualified Code(s): R40.0 - Somnolence (3) COPD with acute exacerbation Assessment/Plan: steroids duo nebs INTUBATED Code(s): J44.1 - CHRONIC OBSTRUCTIVE PULMONARY DISEASE W (ACUTE) EXACERBATION (4) Elevated troponin I level Code(s): R74.8 - ABNORMAL LEVELS OF OTHER SERUM ENZYMES (5) Hyperkalemia Code(s): E87.5 - HYPERKALEMIA (6) COPD (chronic obstructive pulmonary disease) Code(s): J44.9 - CHRONIC OBSTRUCTIVE PULMONARY DISEASE, UNSPECIFIED Qualifiers: (7) HIV Assessment/Plan: continue home meds Code(s): Z21 - ASYMPTOMATIC HUMAN IMMUNODEFICIENCY VIRUS INFECTION STATUS (8) HTN (hypertension) Assessment/Plan: monitor on meds Code(s): I10 - ESSENTIAL (PRIMARY) HYPERTENSION Qualifiers: Hypertension type: essential hypertension Qualified Code(s): I10 - Essential (primary) hypertension (9) Hyperlipidemia Code(s): E78.5 - HYPERLIPIDEMIA, UNSPECIFIED Qualifiers: Hyperlipidemia type: pure hypercholesterolemia Qualified Code(s): E78.00 - Pure hypercholesterolemia, unspecified; E78.0 - Pure hypercholesterolemia (10) PVD (peripheral vascular disease) Code(s): I73.9 - PERIPHERAL VASCULAR DISEASE, UNSPECIFIED (11) CHF (congestive heart failure) Code(s): I50.9 - HEART FAILURE, UNSPECIFIED Qualifiers: Heart failure type: diastolic Heart failure chronicity: chronic Qualified Code(s): I50.32 - Chronic diastolic (congestive) heart failure (12) Sepsis Assessment/Plan: on abx monitor wbc Code(s): A41.9 - SEPSIS, UNSPECIFIED ORGANISM
--- NOTE | 2018-08-21 18:28 | PN ---
Progress Note, Physician History of Present Illness: Pt seen and examined at bedside. She remains in the ICU. She remains intubated. - Current Medication List Current Medications: Active Medications Abacavir/Dolutegravir/Lamivudine (Triumeq (Non-Formulary)) 1 each PO DAILY [facility] Last Admin: 08/21/18 09:54 Dose: 1 each Acetaminophen (Tylenol Oral Solution -) 1,000 mg PO Q6H PRN PRN Reason: FEVER Last Admin: 08/20/18 14:00 Dose: 1,000 mg Albuterol/Ipratropium (Duoneb -) 1 amp NEB RQID [facility] Last Admin: 08/21/18 16:15 Dose: 1 amp Carvedilol (Coreg -) 12.5 mg PO BID [facility] Last Admin: 08/21/18 09:51 Dose: 12.5 mg Chlorhexidine Gluconate (Peridex -) 15 ml MM BID [facility] Last Admin: 08/21/18 09:52 Dose: 15 ml Clopidogrel Bisulfate (Plavix -) 75 mg PO DAILY [facility] Last Admin: 08/21/18 09:53 Dose: 75 mg Heparin Sodium (Porcine) (Heparin -) 5,000 unit SQ TID [facility] Last Admin: 08/21/18 13:41 Dose: 5,000 unit Hydralazine HCl (Apresoline -) 50 mg NGT TID [facility] Last Admin: 08/21/18 13:38 Dose: Not Given Nafcillin Sodium 2 gm/ (Dextrose) 100 mls @ 100 mls/hr IVPB Q4H-IV [facility]; Protocol Last Admin: 08/21/18 17:15 Dose: 100 mls/hr Fentanyl 500 mcg/ Dextrose 100 mls @ 5 mls/hr IVPB TITR [facility]; Protocol Last Admin: 08/21/18 16:29 Dose: 100 mcg/hr, 20 mls/hr Propofol (Diprivan -) 1,000,000 mcg in 100 mls @ 16.98 mls/hr IVPB TITR [facility]; Protocol Last Admin: 08/21/18 08:00 Dose: 50 mcg/kg/min, 16.98 mls/hr Meropenem 1 gm/ Dextrose 100 mls @ 200 mls/hr IVPB Q8H-IV [facility] Last Admin: 08/21/18 10:38 Dose: 200 mls/hr Midazolam HCl 100 mg/ Sodium (Chloride) 100 mls @ 1 mls/hr IVPB TITR [facility]; Protocol Last Admin: 08/21/18 10:45 Dose: 1 mg/hr, 1 mls/hr Losartan Potassium (Cozaar -) 50 mg PO BID [facility] Last Admin: 08/21/18 09:51 Dose: 50 mg Methylprednisolone Sodium Succinate (Solu-Medrol -) 40 mg IVPUSH Q8H-IV [facility] Last Admin: 08/21/18 17:15 Dose: 40 mg Midazolam HCl (Versed -) 2 mg IVPUSH Q3H PRN PRN Reason: AGITATION Last Admin: 08/20/18 22:35 Dose: 2 mg Mupirocin (Bactroban Ointment (For Decolonization) -) 1 applic NS BID [facility] Stop: 08/22/18 21:59 Last Admin: 08/21/18 09:51 Dose: 1 applic Pantoprazole Sodium (Protonix Iv) 40 mg IVPUSH DAILY [facility] Last Admin: 08/21/18 09:53 Dose: 40 mg Ranolazine (Ranexa -) 500 mg PO BID [facility] Last Admin: 08/21/18 09:53 Dose: 500 mg Spironolactone (Aldactone -) 25 mg NGT DAILY [facility] Last Admin: 08/21/18 09:50 Dose: 25 mg - Objective Vital Signs: Vital Signs Temperature 98.1 F 08/21/18 16:00 Pulse Rate 102 H 08/21/18 18:00 Respiratory Rate 16 08/21/18 18:00 Blood Pressure 87/60 L 08/21/18 18:00 O2 Sat by Pulse Oximetry (%) 95 08/21/18 10:15 Constitutional: Yes: Calm Eyes: Yes: Conjunctiva Clear HENT: Yes: Atraumatic Neck: Yes: Supple Cardiovascular: Yes: S1, S2 Respiratory: Yes: Mechanically Ventilated Gastrointestinal: Yes: Soft Genitourinary: Yes: Torres Present Musculoskeletal: Yes: Muscle Weakness Edema: No Neurological: Yes: Lethargy Labs: CBC, BMP 08/21/18 05:30 08/21/18 05:30 INR, PTT INR 1.49 (0.83-1.09) H 08/08/18 19:37 Problem List - Problems (1) Acute renal failure Code(s): N17.9 - ACUTE KIDNEY FAILURE, UNSPECIFIED Qualifiers: Acute renal failure type: unspecified Qualified Code(s): N17.9 - Acute kidney failure, unspecified (2) Altered mental status, unspecified Code(s): R41.82 - ALTERED MENTAL STATUS, UNSPECIFIED Qualifiers: Altered mental status type: somnolence Qualified Code(s): R40.0 - Somnolence (3) CHF (congestive heart failure) Code(s): I50.9 - HEART FAILURE, UNSPECIFIED Qualifiers: Heart failure type: diastolic Heart failure chronicity: chronic Qualified Code(s): I50.32 - Chronic diastolic (congestive) heart failure (4) COPD with acute exacerbation Code(s): J44.1 - CHRONIC OBSTRUCTIVE PULMONARY DISEASE W (ACUTE) EXACERBATION (5) Hyperkalemia Code(s): E87.5 - HYPERKALEMIA Assessment/Plan Current Medications Generic Name Dose Route Start Last Admin Trade Name Freq PRN Reason Stop Dose Admin Abacavir/Dolutegravir/Lamivudine 1 each 08/10/18 14:00 08/21/18 09:54 Triumeq (Non-Formulary) PO 1 each DAILY [facility] Administration Acetaminophen 1,000 mg 08/16/18 16:11 08/20/18 14:00 Tylenol Oral Solution - PO 1,000 mg Q6H PRN Administration FEVER Albuterol/Ipratropium 1 amp 08/17/18 16:00 08/21/18 16:15 Duoneb - NEB 1 amp RQID [facility] Administration Carvedilol 12.5 mg 08/10/18 10:00 08/21/18 09:51 Coreg - PO 12.5 mg BID [facility] Administration Chlorhexidine Gluconate 15 ml 08/17/18 22:00 08/21/18 09:52 Peridex - MM 15 ml BID [facility] Administration Clopidogrel Bisulfate 75 mg 08/10/18 10:00 08/21/18 09:53 Plavix - PO 75 mg DAILY [facility] Administration Heparin Sodium (Porcine) 5,000 unit 08/17/18 14:00 08/21/18 13:41 Heparin - SQ 5,000 unit TID [facility] Administration Hydralazine HCl 50 mg 08/11/18 14:08 08/21/18 13:38 Apresoline - NGT Not Given TID [facility] Nafcillin Sodium 2 gm/ 100 mls @ 100 mls/hr 08/19/18 20:00 08/21/18 17:15 Dextrose IVPB 100 mls/hr Q4H-IV [facility] Administration Protocol Fentanyl 500 mcg/ Dextrose 100 mls @ 5 mls/hr 08/20/18 10:30 08/21/18 16:29 IVPB 100 mcg/hr TITR [facility] 20 mls/hr Administration Protocol 25 MCG/HR Propofol 1,000,000 mcg in 100 mls @ 16.98 mls/hr 08/20/18 10:39 08/21/18 08: 00 Diprivan - IVPB 50 mcg/kg/min TITR [facility] 16.98 mls/hr Administration Protocol 50 MCG/KG/MIN Meropenem 1 gm/ Dextrose 100 mls @ 200 mls/hr 08/21/18 10:00 08/21/18 10:38 IVPB 200 mls/hr Q8H-IV [facility] Administration Midazolam HCl 100 mg/ Sodium 100 mls @ 1 mls/hr 08/21/18 10:00 08/21/18 10:45 Chloride IVPB 1 mg/hr TITR [facility] 1 mls/hr Administration Protocol 1 MG/HR Losartan Potassium 50 mg 08/11/18 13:00 08/21/18 09:51 Cozaar - PO 50 mg BID [facility] Administration Methylprednisolone Sodium Succinate 40 mg 08/17/18 12:15 08/21/18 17:15 Solu-Medrol - IVPUSH 40 mg Q8H-IV [facility] Administration Midazolam HCl 2 mg 08/14/18 20:55 08/20/18 22:35 Versed - IVPUSH 2 mg Q3H PRN Administration AGITATION Mupirocin 1 applic 08/17/18 22:00 08/21/18 09:51 Bactroban Ointment (For Decolonization) - NS 08/22/18 21:59 1 applic BID [facility] Administration Pantoprazole Sodium 40 mg 08/11/18 13:15 08/21/18 09:53 Protonix Iv IVPUSH 40 mg DAILY [facility] Administration Ranolazine 500 mg 08/10/18 11:30 08/21/18 09:53 Ranexa - PO 500 mg BID [facility] Administration Spironolactone 25 mg 08/11/18 14:15 08/21/18 09:50 Aldactone - NGT 25 mg DAILY [facility] Administration Impression 1. KRISTIAN 2. Hyperkalemia 3. HIV 4. hyponatremia 5. altered mental status 6. pulm HTN 7. htn 8. pvd 9. resp acidosis 10. resp failure requiring intubation Plan - bun continues to rise, may be secondary to steroids - will decrease rate of feeds to 40 per hour - cont with free water - vent support
[2018-08-21] MEDS: ACETAMINOPHEN 650 MG/20.3 ML ORAL SOLUTION (CUPS) PO PRN (22:06)
[2018-08-22] MEDS ORDERED: PT OWN MED DRAWER 7, Y5N ONE ×5 (02:27→21:25)
[2018-08-22] MEDS ORDERED: MEROPENEM 1 GM VIAL (RESTRICTED TO ID) IVPB ONE ×3 (02:27→18:23)
[2018-08-22] MEDS ORDERED: DEXTROSE 5%-WATER 100 ML IVPB ONE ×3 (02:27→18:23)
[2018-08-22] MEDS: MEROPENEM 1 GM in DEXTROSE 5%-WATER 100 ML IVPB SCH ×3 (02:33→18:27)
[2018-08-22] MEDS: NAFCILLIN - 2 GM in DEXTROSE 5%-WATER - 100 ML IVPB SCH ×6 (02:33→21:29)
[2018-08-22] MEDS: methylPREDNISolone NA SUCC 40 MG/1 ML VIAL IVPUSH SCH ×2 (02:34→09:48)
[2018-08-22] MEDS: ACETAMINOPHEN 1000 MG/100 ML VIAL (NON FORMULARY) IVPB PRN ×2 (02:52→19:50)
[2018-08-22] MEDS ORDERED: fentaNYL CITRATE 250 MCG/5 ML VIAL ONE ×3 (04:10→19:55)
[2018-08-22] MEDS: hydrALAZINE HCL 50 MG TABLET (FP) NGT SCH ×3 (05:13→21:29)
[2018-08-22] MEDS: HEPARIN NA (PORCINE) 5,000 UNITS/ML 1ML VIAL SQ SCH ×3 (05:13→21:29)
[2018-08-22] MEDS: BANATROL PLUS POWDER PACKET PO SCH ×3 (05:14→22:03)
[2018-08-22 05:49] LABS: BASO % 0.1 % (0-2.0); HEMATOCRIT 30.3 % (32.4-45.2); HEMOGLOBIN 9.6 GM/dL (10.7-15.3); LYMPH % 1.5 % (8-40); MCH 29.9 pg (25.7-33.7); MCHC 31.9 g/dl (32.0-36.0); MEAN CELL VOLUME 93.9 fl (80-96); MEAN PLT VOLUME 8.8 fl (7.5-11.1); MONO % 6.3 % (3.8-10.2); NEUT % 92.1 % (42.8-82.8); PLATELET COUNT 320 K/MM3 (134-434); RBC 3.22 M/mm3 (3.60-5.2); WHITE BLOOD COUNT 26.3 K/mm3 (4.0-10.0)
[2018-08-22 05:58] LABS: INR 1.34 (0.83-1.09); PROTHROMBIN TIME (PATIENT) 15.8 SEC (9.7-13.0)
[2018-08-22] MEDS: ACETAMINOPHEN 650 MG/20.3 ML ORAL SOLUTION (CUPS) PO PRN (06:25)
[2018-08-22 06:35] LABS: ALBUMIN 1.8 g/dl (3.4-5.0); ALK PHOS 60 U/L (45-117); ANION GAP 6 MMOL/L (8-16); BILIRUBIN,TOTAL 0.8 mg/dL (0.2-1); BLOOD UREA NITROGEN 62 mg/dL (7-18); CALCIUM 9.4 mg/dL (8.5-10.1); CHLORIDE 101 mmol/L (98-107); CO2 33 mmol/L (21-32); CREATININE 1.2 mg/dL (0.55-1.3); GLUCOSE,RANDOM 223 mg/dL (74-106); MAGNESIUM 2.2 mg/dL (1.8-2.4); POTASSIUM 3.8 mmol/L (3.5-5.1); SGOT/AST 20 U/L (15-37); SGPT/ALT 14 U/L (13-61); SODIUM 139 mmol/L (136-145)
[2018-08-22] MEDS: ALBUTEROL SO4 2.5/IPRATROPIUM 0.5 INH SOL 3 ML VIAL.NEB. NEB SCH ×4 (07:25→20:30)
--- NOTE | 2018-08-22 07:33 | PN ---
Physical Exam: SUBJECTIVE: Patient seen and examined HD# 14 Overnight Events: Fever overnight. OBJECTIVE: Lines: - PIV Drains: - NG - Rectal tube Supplemental Oxygen: Ventilator: Mode: AC Vent rate: 16 Tv: 350 PEEP: 7 FiO2: 60 Vital Signs Period Temp Pulse Resp BP Sys/Buck Pulse Ox Last 24 Hr 97.7 F-100.9 F 98-116 14-29 87-158/60-91 87-98 Physical Exams: GENERAL: The patient is sedated. Does not respond to verbal stimuli. HEAD: Normal with no signs of trauma. EYES: Closed. LUNGS: Intubated and mechanically ventilated. Deep and mildly rapid breathing. Breath sounds equal, with trace diffuse rhonchi. No wheezes or rales. HEART: Tachycardic rate with regular rhythm, S1, S2 without murmur, rub or gallop. ABDOMEN: Soft and nondistended. EXTREMITIES: 2+ pulses, warm, well-perfused, no edema. SKIN: Warm and dry Laboratory Results - last 24 hr 08/19/18 08/22/18 08/22/18 15:44 05:30 05:30 WBC 25.7 H 26.3 H RBC 3.22 L Hgb 9.6 L Hct 30.3 L MCV 93.9 MCH 29.9 MCHC 31.9 L RDW 16.0 H Plt Count 320 MPV 8.8 Absolute Neuts (auto) 24.2 H Absolute Lymphs (auto) 1.8 Neutrophils % 92.1 H Lymphocytes % 1.5 L Monocytes % 6.3 Eosinophils % 0.0 Basophils % 0.1 Nucleated RBC % 0 Lymphocytes 7 Nucleated RBCs 0 Hematology Comments Note: PT with INR 15.80 H INR 1.34 H PTT (Actin FS) 29.0 Sodium Potassium Chloride Carbon Dioxide Anion Gap BUN Creatinine Creat Clearance w eGFR Random Glucose Calcium Magnesium Total Bilirubin AST ALT Alkaline Phosphatase Total Protein Albumin Absolute CD3 Count 1132 % CD3+ Lymphocytes 62.9 Absolute CD4 [place] 437 % CD4+ Lymphocyte 24.3 L CD4/CD8 Ratio 0.61 L % CD8+ Lymphocyte 39.7 H Absolute CD8 Count 715 08/22/18 05:30 WBC RBC Hgb Hct MCV MCH MCHC RDW Plt Count MPV Absolute Neuts (auto) Absolute Lymphs (auto) Neutrophils % Lymphocytes % Monocytes % Eosinophils % Basophils % Nucleated RBC % Lymphocytes Nucleated RBCs Hematology Comments PT with INR INR PTT (Actin FS) Sodium 139 Potassium 3.8 Chloride 101 Carbon Dioxide 33 H Anion Gap 6 L BUN 62 H Creatinine 1.2 Creat Clearance w eGFR 44.81 Random Glucose 223 H Calcium 9.4 Magnesium 2.2 Total Bilirubin 0.8 AST 20 ALT 14 Alkaline Phosphatase 60 Total Protein 6.0 L Albumin 1.8 L Absolute CD3 Count % CD3+ Lymphocytes Absolute CD4 [place] % CD4+ Lymphocyte CD4/CD8 Ratio % CD8+ Lymphocyte Absolute CD8 Count Active Medications Generic Name Dose Route Start Last Admin Trade Name Freq PRN Reason Stop Dose Admin Abacavir/Dolutegravir/Lamivudine 1 each 08/10/18 14:00 08/21/18 09:54 Triumeq (Non-Formulary) PO 1 each DAILY [facility] Administration Acetaminophen 1,000 mg 08/16/18 16:11 08/22/18 06:25 Tylenol Oral Solution - PO 1,000 mg Q6H PRN Administration FEVER Acetaminophen 1,000 mg 08/22/18 02:41 08/22/18 02:52 Ofirmev Injection - IVPB 1,000 mg Q6H PRN Administration FEVER Albuterol/Ipratropium 1 amp 08/17/18 16:00 08/21/18 20:16 Duoneb - NEB 1 amp RQID [facility] Administration Carvedilol 12.5 mg 08/10/18 10:00 08/21/18 21:33 Coreg - PO 12.5 mg BID [facility] Administration Chlorhexidine Gluconate 15 ml 08/17/18 22:00 08/21/18 21:35 Peridex - MM 15 ml BID [facility] Administration Clopidogrel Bisulfate 75 mg 08/10/18 10:00 08/21/18 09:53 Plavix - PO 75 mg DAILY [facility] Administration Heparin Sodium (Porcine) 5,000 unit 08/17/18 14:00 08/22/18 05:13 Heparin - SQ 5,000 unit TID [facility] Administration Hydralazine HCl 50 mg 08/11/18 14:08 08/22/18 05:13 Apresoline - NGT 50 mg TID [facility] Administration Nafcillin Sodium 2 gm/ 100 mls @ 100 mls/hr 08/19/18 20:00 08/22/18 05:13 Dextrose IVPB 100 mls/hr Q4H-IV [facility] Administration Protocol Fentanyl 500 mcg/ Dextrose 100 mls @ 5 mls/hr 08/20/18 10:30 08/21/18 22:19 IVPB 100 mcg/hr TITR [facility] 20 mls/hr Titration Protocol 25 MCG/HR Propofol 1,000,000 mcg in 100 mls @ 16.98 mls/hr 08/20/18 10:39 08/22/18 02: 40 Diprivan - IVPB 40 mcg/kg/min TITR [facility] 13.584 mls/hr Titration Protocol 50 MCG/KG/MIN Meropenem 1 gm/ Dextrose 100 mls @ 200 mls/hr 08/21/18 10:00 08/22/18 02:33 IVPB 200 mls/hr Q8H-IV [facility] Administration Midazolam HCl 100 mg/ Sodium 100 mls @ 1 mls/hr 08/21/18 10:00 08/21/18 10:45 Chloride IVPB 1 mg/hr TITR [facility] 1 mls/hr Administration Protocol 1 MG/HR Losartan Potassium 50 mg 08/11/18 13:00 08/21/18 21:34 Cozaar - PO 50 mg BID [facility] Administration Methylprednisolone Sodium Succinate 40 mg 08/17/18 12:15 08/22/18 02:34 Solu-Medrol - IVPUSH 40 mg Q8H-IV [facility] Administration Midazolam HCl 2 mg 08/14/18 20:55 08/20/18 22:35 Versed - IVPUSH 2 mg Q3H PRN Administration AGITATION Mupirocin 1 applic 08/17/18 22:00 08/21/18 21:34 Bactroban Ointment (For Decolonization) - NS 08/22/18 21:59 1 applic BID [facility] Administration Pantoprazole Sodium 40 mg 08/11/18 13:15 08/21/18 09:53 Protonix Iv IVPUSH 40 mg DAILY [facility] Administration Ranolazine 500 mg 08/10/18 11:30 08/21/18 21:33 Ranexa - PO 500 mg BID [facility] Administration Spironolactone 25 mg 08/11/18 14:15 08/21/18 09:50 Aldactone - NGT 25 mg DAILY [facility] Administration ASSESSMENT/PLAN: 67 year old female with HTN, CAD s/p CABG in 2009, PVD with B/L LE stents, HIV, HEP C, COPD and CHF. Admitted to the ICU for Acute hypoxic hypercapnic respiratory failure and dehydration. Neuro: - Currently sedated with Propofol, Fentanyl, and Versed drips. Did not tolerate decreased sedation with Precedex. Will increase Versed drip and not attempt sedation wean today given increased respiratory effort. Endocrine: - Consult: Dr. Leach - Previous KRISTIAN resolved but Cr has been trending upward over past several days. Suspect secondary to decreased volume status. Will re-order han to follow I/ Os. - Continue to trend electrolytes - BGL trending upward. Suspect secondary to steroid usage. Will consider insulin sliding scale if trends above 250. Cardiovascular: - Consult: Dr. Fitzgerald - LV Diastolic/Systolic Dysfunction -c/w home Clopidogrel -c/w home Carvedilol, Hydralazine, Losartan for BP control -c/w home Ranolazine and Spironolactone Pulm / Resp: - Acute on Chronic Hypoxic and Hypercapneic Respiratory Failure likely secondary to pneumonia. - Continue albuterol PRN. Standing QID nebs changed from albuterol to duonebs - Continuing Solu-medrol wean to 40mg daily. No obstructive pattern on ventilatory loops. - CXR w/o significant change. - Continues to require increased PEEP and FiO2. - Today is intubation day 12. Low suspicion pt will be able to tolerate extubation in the next few days. Will discuss trach will family. Gastrointestinal: - Multiple episodes of diarrhea with negative C-diff test. Possibly secondary to tube feeds. - Would consider adding banatrol packet versus banana shavings. Will discuss with dietary. Infectious Disease: - Consult Dr. Khan - h/o HIV: continue HAART Therapy per ID - Leukocytosis trended downward overnight with fever to 100.9. Likely secondary to pneumonia. - Continue Merrem (Day 2) and Nafcillin (Day 4) for antibiotic coverage. FEN: - Electrolytes within normal limits today. -Tube Feed per dietary Prophylaxis: -DVT: Heparin SQ -GI: Pantoprazole Dispo: Continue to monitor the intubated pt in the ICU. Consider trach placement. Andrez Tolentino MD, PGY1 ICU Consult Service Visit type - Emergency Visit Emergency Visit: No - New Patient This patient is new to me today: No - Critical Care Critical Care patient: Yes Total Critical Care Time (in minutes): 40 Critical Care Statement: The care of this patient involved high complexity decision making to prevent further life threatening deterioration of the patient 's condition and/or to evaluate & treat vital organ system(s) failure or risk of failure.
--- NOTE | 2018-08-22 09:06 | PN ---
Progress Note, Physician History of Present Illness: SEDATED ON VENTILATOR LOW GRADE FEVER WBC SLIGHTLY IMPROVED BC MSSA SPUTUM C/S MSSA PSEUDOMONAS - Current Medication List Current Medications: Active Medications Abacavir/Dolutegravir/Lamivudine (Triumeq (Non-Formulary)) 1 each PO DAILY COUNT INCLUDES [facility] Last Admin: 08/21/18 09:54 Dose: 1 each Acetaminophen (Tylenol Oral Solution -) 1,000 mg PO Q6H PRN PRN Reason: FEVER Last Admin: 08/22/18 06:25 Dose: 1,000 mg Acetaminophen (Ofirmev Injection -) 1,000 mg IVPB Q6H PRN PRN Reason: FEVER Last Admin: 08/22/18 02:52 Dose: 1,000 mg Albuterol/Ipratropium (Duoneb -) 1 amp NEB RQID [facility]CLUDES [facility] Last Admin: 08/22/18 07:25 Dose: 1 amp Carvedilol (Coreg -) 12.5 mg PO BID COUNT [facility]CLUDES [facility] Last Admin: 08/21/18 21:33 Dose: 12.5 mg Chlorhexidine Gluconate (Peridex -) 15 ml MM BID COUNT [facility]CLUDES [facility] Last Admin: 08/21/18 21:35 Dose: 15 ml Clopidogrel Bisulfate (Plavix -) 75 mg PO DAILY COUNT [facility]CLUD[facility] Last Admin: 08/21/18 09:53 Dose: 75 mg Heparin Sodium (Porcine) (Heparin -) 5,000 unit SQ TID COUNT [facility]CLUDES [facility] Last Admin: 08/22/18 05:13 Dose: 5,000 unit Hydralazine HCl (Apresoline -) 50 mg NGT TID COUNT [facility]CLUDES [facility] Last Admin: 08/22/18 05:13 Dose: 50 mg Nafcillin Sodium 2 gm/ (Dextrose) 100 mls @ 100 mls/hr IVPB Q4H-IV [facility]; Protocol Last Admin: 08/22/18 05:13 Dose: 100 mls/hr Fentanyl 500 mcg/ Dextrose 100 mls @ 5 mls/hr IVPB TITR COUNT [facility]CLUDES [facility]; Protocol Last Titration: 08/21/18 22:19 Dose: 100 mcg/hr, 20 mls/hr Propofol (Diprivan -) 1,000,000 mcg in 100 mls @ 16.98 mls/hr IVPB TITR COUNT [facility]CLUDES [facility]; Protocol Last Titration: 08/22/18 02:40 Dose: 40 mcg/kg/min, 13.584 mls/hr Meropenem 1 gm/ Dextrose 100 mls @ 200 mls/hr IVPB Q8H-IV [facility] Last Admin: 08/22/18 02:33 Dose: 200 mls/hr Midazolam HCl 100 mg/ Sodium (Chloride) 100 mls @ 1 mls/hr IVPB TITR [facility]; Protocol Last Admin: 08/21/18 10:45 Dose: 1 mg/hr, 1 mls/hr Losartan Potassium (Cozaar -) 50 mg PO BID [facility] Last Admin: 08/21/18 21:34 Dose: 50 mg Methylprednisolone Sodium Succinate (Solu-Medrol -) 40 mg IVPUSH Q8H-IV [facility] Last Admin: 08/22/18 02:34 Dose: 40 mg Midazolam HCl (Versed -) 2 mg IVPUSH Q3H PRN PRN Reason: AGITATION Last Admin: 08/20/18 22:35 Dose: 2 mg Mupirocin (Bactroban Ointment (For Decolonization) -) 1 applic NS BID [facility] Stop: 08/22/18 21:59 Last Admin: 08/21/18 21:34 Dose: 1 applic Pantoprazole Sodium (Protonix Iv) 40 mg IVPUSH DAILY [facility] Last Admin: 08/21/18 09:53 Dose: 40 mg Ranolazine (Ranexa -) 500 mg PO BID [facility] Last Admin: 08/21/18 21:33 Dose: 500 mg Spironolactone (Aldactone -) 25 mg NGT DAILY [facility] Last Admin: 08/21/18 09:50 Dose: 25 mg - Objective Vital Signs: Vital Signs Temperature 99 F 08/22/18 08:00 Pulse Rate 112 H 08/22/18 08:23 Respiratory Rate 25 H 08/22/18 08:23 Blood Pressure 106/68 08/22/18 08:00 O2 Sat by Pulse Oximetry (%) 98 08/22/18 08:23 Constitutional: Yes: No Distress Eyes: Yes: Conjunctiva Clear Cardiovascular: Yes: Regular Rate and Rhythm Respiratory: Yes: Mechanically Ventilated Gastrointestinal: Yes: Normal Bowel Sounds, Soft. No: Tenderness Edema: Yes Edema: LUE: 1+, RUE: 1+, LLE: 1+, RLE: 1+ Labs: CBC, BMP 08/22/18 05:30 08/22/18 05:30 INR, PTT INR 1.34 (0.83-1.09) H 08/22/18 05:30 Assessment/Plan SEPSIS MSSA BACTEREMIA ? PNEUMONIA ?ENDOCARDITIS RESPIRATORY FAILURE/ COPD EXACERBATION HCAP MARKED LEUKOCYTOSIS HIV+ CD4 437 REPEAT BC CONTINUE NAFCILLIN/ MEROPENEM HEMODYNAMIC/ VENTILATORY SUPPORT CONTINUE ART PROGNOSIS POOR
--- NOTE | 2018-08-22 09:42 | PN ---
Progress Note, Physician Chief Complaint: Events noted Remains in ICU Intubated and sedated History of Present Illness: Patient was seen and examined. Mechanical ventilation. Chart was reviewed - Current Medication List Current Medications: Active Medications Abacavir/Dolutegravir/Lamivudine (Triumeq (Non-Formulary)) 1 each PO DAILY [facility] Last Admin: 08/21/18 09:54 Dose: 1 each Acetaminophen (Tylenol Oral Solution -) 1,000 mg PO Q6H PRN PRN Reason: FEVER Last Admin: 08/22/18 06:25 Dose: 1,000 mg Acetaminophen (Ofirmev Injection -) 1,000 mg IVPB Q6H PRN PRN Reason: FEVER Last Admin: 08/22/18 02:52 Dose: 1,000 mg Albuterol/Ipratropium (Duoneb -) 1 amp NEB RQID [facility] Last Admin: 08/22/18 07:25 Dose: 1 amp Carvedilol (Coreg -) 12.5 mg PO BID [facility] Last Admin: 08/21/18 21:33 Dose: 12.5 mg Chlorhexidine Gluconate (Peridex -) 15 ml MM BID [facility] Last Admin: 08/21/18 21:35 Dose: 15 ml Clopidogrel Bisulfate (Plavix -) 75 mg PO DAILY [facility] Last Admin: 08/21/18 09:53 Dose: 75 mg Heparin Sodium (Porcine) (Heparin -) 5,000 unit SQ TID [facility] Last Admin: 08/22/18 05:13 Dose: 5,000 unit Hydralazine HCl (Apresoline -) 50 mg NGT TID [facility] Last Admin: 08/22/18 05:13 Dose: 50 mg Nafcillin Sodium 2 gm/ (Dextrose) 100 mls @ 100 mls/hr IVPB Q4H-IV [facility]; Protocol Last Admin: 08/22/18 05:13 Dose: 100 mls/hr Fentanyl 500 mcg/ Dextrose 100 mls @ 5 mls/hr IVPB TITR [facility]; Protocol Last Titration: 08/21/18 22:19 Dose: 100 mcg/hr, 20 mls/hr Propofol (Diprivan -) 1,000,000 mcg in 100 mls @ 16.98 mls/hr IVPB TITR [facility]; Protocol Last Titration: 08/22/18 02:40 Dose: 40 mcg/kg/min, 13.584 mls/hr Meropenem 1 gm/ Dextrose 100 mls @ 200 mls/hr IVPB Q8H-IV [facility] Last Admin: 08/22/18 02:33 Dose: 200 mls/hr Midazolam HCl 100 mg/ Sodium (Chloride) 100 mls @ 1 mls/hr IVPB TITR [facility]; Protocol Last Admin: 08/21/18 10:45 Dose: 1 mg/hr, 1 mls/hr Losartan Potassium (Cozaar -) 50 mg PO BID [facility] Last Admin: 08/21/18 21:34 Dose: 50 mg Methylprednisolone Sodium Succinate (Solu-Medrol -) 40 mg IVPUSH Q8H-IV [facility] Last Admin: 08/22/18 02:34 Dose: 40 mg Midazolam HCl (Versed -) 2 mg IVPUSH Q3H PRN PRN Reason: AGITATION Last Admin: 08/20/18 22:35 Dose: 2 mg Mupirocin (Bactroban Ointment (For Decolonization) -) 1 applic NS BID [facility] Stop: 08/22/18 21:59 Last Admin: 08/21/18 21:34 Dose: 1 applic Pantoprazole Sodium (Protonix Iv) 40 mg IVPUSH DAILY [facility] Last Admin: 08/21/18 09:53 Dose: 40 mg Ranolazine (Ranexa -) 500 mg PO BID [facility] Last Admin: 08/21/18 21:33 Dose: 500 mg Spironolactone (Aldactone -) 25 mg NGT DAILY [facility] Last Admin: 08/21/18 09:50 Dose: 25 mg - Objective Vital Signs: Vital Signs Temperature 99 F 08/22/18 08:00 Pulse Rate 112 H 08/22/18 08:23 Respiratory Rate 25 H 08/22/18 08:23 Blood Pressure 106/68 08/22/18 08:00 O2 Sat by Pulse Oximetry (%) 98 08/22/18 08:23 Cardiovascular: Yes: Regular Rate and Rhythm, Tachycardia, S1, S2 Respiratory: Yes: Intubated, Mechanically Ventilated Gastrointestinal: Yes: Normal Bowel Sounds, Soft. No: Tenderness Edema: No Labs: CBC, BMP 08/22/18 05:30 08/22/18 05:30 INR, PTT INR 1.34 (0.83-1.09) H 08/22/18 05:30 Problem List - Problems (1) Altered mental status, unspecified Code(s): R41.82 - ALTERED MENTAL STATUS, UNSPECIFIED Qualifiers: Altered mental status type: somnolence Qualified Code(s): R40.0 - Somnolence (2) CHF (congestive heart failure) Code(s): I50.9 - HEART FAILURE, UNSPECIFIED Qualifiers: Heart failure type: diastolic Heart failure chronicity: chronic Qualified Code(s): I50.32 - Chronic diastolic (congestive) heart failure (3) COPD with acute exacerbation Code(s): J44.1 - CHRONIC OBSTRUCTIVE PULMONARY DISEASE W (ACUTE) EXACERBATION (4) Elevated troponin I level Code(s): R74.8 - ABNORMAL LEVELS OF OTHER SERUM ENZYMES (5) Leukocytosis Code(s): D72.829 - ELEVATED WHITE BLOOD CELL COUNT, UNSPECIFIED (6) Respiratory failure requiring intubation Code(s): J96.90 - RESPIRATORY FAILURE, UNSP, UNSP W HYPOXIA OR HYPERCAPNIA (7) Severe pulmonary arterial systolic hypertension Code(s): I27.21 - SECONDARY PULMONARY ARTERIAL HYPERTENSION (8) Asthma Code(s): J45.909 - UNSPECIFIED ASTHMA, UNCOMPLICATED (9) Asymptomatic cholelithiasis Code(s): K80.20 - CALCULUS OF GALLBLADDER W/O CHOLECYSTITIS W/O OBSTRUCTION (10) COPD (chronic obstructive pulmonary disease) Code(s): J44.9 - CHRONIC OBSTRUCTIVE PULMONARY DISEASE, UNSPECIFIED Qualifiers: (11) HIV Code(s): Z21 - ASYMPTOMATIC HUMAN IMMUNODEFICIENCY VIRUS INFECTION STATUS (12) HTN (hypertension) Code(s): I10 - ESSENTIAL (PRIMARY) HYPERTENSION Qualifiers: Hypertension type: essential hypertension Qualified Code(s): I10 - Essential (primary) hypertension (13) Hyperlipidemia Code(s): E78.5 - HYPERLIPIDEMIA, UNSPECIFIED Qualifiers: Hyperlipidemia type: pure hypercholesterolemia Qualified Code(s): E78.00 - Pure hypercholesterolemia, unspecified; E78.0 - Pure hypercholesterolemia (14) PVD (peripheral vascular disease) Code(s): I73.9 - PERIPHERAL VASCULAR DISEASE, UNSPECIFIED (15) S/P CABG (coronary artery bypass graft) Code(s): Z95.1 - PRESENCE OF AORTOCORONARY BYPASS GRAFT Assessment/Plan 1. Acute on chronic hypercapneic/hypoxemic respiratory failure - mechanical ventilation 2. Acute exacerbation of chronic obstructive pulmonary disease 3. Right Heart Failure/Volume Overload with Severe Pulmonary HTN 4. Diastolic dysfunction 5. CAD s/p CABG, demand ischemia 7. HTN 8. Hypercholesterolemia 9. HIV and Hepatitis C 10. PAD s/p SFA stent 11. Pre-renal Acute on CKD improving, hyperkalemia and hyponatremia 12. Toxic metabolic encephelopathy 13. Cholelithiasis PLAN: 1. Continue Aldactone 25 mg QD and Losartan 50 mg BID as tolerated 2. Continue Carvedilol 12.5 mg BID, Plavix 75 mg QD, Hydralazine 50 mg TID, Lipitor 10 mg QD and Ranexa 500 mg BID as tolerated (via NG) 3. IV steroid, bronchodilator and vent management as per critical care team. 4. Continue antibiotic coverage 5. DVT prophylaxis Guarded. Supportive care Chato Beltran MD
[2018-08-22] MEDS: SPIRONOLACTONE 25 MG TABLET (FP) NGT SCH (09:47)
[2018-08-22] MEDS: RANOLAZINE E.R. 500 MG TABLET (FP) PO SCH ×2 (09:47→21:29)
[2018-08-22] MEDS: LOSARTAN POTASSIUM 50 MG TABLET (FP) PO SCH ×2 (09:47→21:29)
[2018-08-22] MEDS: CARVEDILOL 12.5 MG TABLET (FP) PO SCH ×2 (09:48→21:29)
[2018-08-22] MEDS: PANTOPRAZOLE SODIUM 40 MG VIAL IVPUSH SCH (09:48)
[2018-08-22] MEDS: CLOPIDOGREL BISULFATE 75 MG TABLET (FP) PO SCH (09:48)
[2018-08-22] MEDS: MUPIROCIN 2% TOPICAL OINTMENT FOR DECOLONIZATION NS SCH (09:48)
[2018-08-22] MEDS: CHLORHEXIDINE GLUCONATE 0.12% 15ML CUP MM SCH ×2 (10:13→22:04)
[2018-08-22] MEDS: ABACAVIR/DOLUTEGRAVIR/LAMIVUDI (TRIUMEQ) TABLET -NF PO SCH (10:14)
[2018-08-22] MEDS: PROPOFOL 1,000,000 MCG/100 ML VIAL IVPB SCH ×2 (10:14→19:09)
[2018-08-22 10:43] LABS: ANISOCYTOSIS 1+; MACROCYTOSIS 1+; PLATELET ESTIMATE NORMAL; TARGET CELLS 2+
--- NOTE | 2018-08-22 11:36 | PN ---
Teaching Attending Note Name of Resident: Andrez Tolentino ATTENDING PHYSICIAN STATEMENT I saw and evaluated the patient. I reviewed the resident's note and discussed the case with the resident. I agree with the resident's findings and plan as documented. SUBJECTIVE: Pt seen and examined in the ICU. Remains intubated, sedated, tachypneic. Low grade fevers. No pressors. Vented on volume assist control with 60% FiO2, PEEP 7. OBJECTIVE: Vital Signs Period Temp Pulse Resp BP Sys/Buck Pulse Ox Last 24 Hr 97.7 F-100.9 F 98-116 14-29 87-146/60-89 94-98 Intake & Output 08/19/18 08/20/18 08/21/18 08/22/18 23:59 23:59 23:59 23:59 Intake Total 1176 3766 3756.6 1120.8 Output Total 300 1300 100 Balance 876 3766 2456.6 1020.8 Weight 55.6 kg 56.6 kg 56.6 kg 59.8 kg Gen: intubated, sedated Heart: RRR Lung: scattered rhonchi Abd: soft, nontender Ext: no edema CBC, BMP 08/22/18 05:30 08/22/18 05:30 Active Medications Abacavir/Dolutegravir/Lamivudine (Triumeq (Non-Formulary)) 1 each PO DAILY [facility] Last Admin: 08/22/18 10:14 Dose: 1 each Acetaminophen (Tylenol Oral Solution -) 1,000 mg PO Q6H PRN PRN Reason: FEVER Last Admin: 08/22/18 06:25 Dose: 1,000 mg Acetaminophen (Ofirmev Injection -) 1,000 mg IVPB Q6H PRN PRN Reason: FEVER Last Admin: 08/22/18 02:52 Dose: 1,000 mg Albuterol/Ipratropium (Duoneb -) 1 amp NEB RQID [facility] Last Admin: 08/22/18 11:34 Dose: 1 amp Carvedilol (Coreg -) 12.5 mg PO BID [facility] Last Admin: 08/22/18 09:48 Dose: 12.5 mg Chlorhexidine Gluconate (Peridex -) 15 ml MM BID [facility] Last Admin: 08/22/18 10:13 Dose: 15 ml Clopidogrel Bisulfate (Plavix -) 75 mg PO DAILY [facility] Last Admin: 08/22/18 09:48 Dose: 75 mg Heparin Sodium (Porcine) (Heparin -) 5,000 unit SQ TID [facility] Last Admin: 08/22/18 05:13 Dose: 5,000 unit Hydralazine HCl (Apresoline -) 50 mg NGT TID [facility] Last Admin: 08/22/18 05:13 Dose: 50 mg Nafcillin Sodium 2 gm/ (Dextrose) 100 mls @ 100 mls/hr IVPB Q4H-IV [facility]; Protocol Last Admin: 08/22/18 11:27 Dose: 100 mls/hr Fentanyl 500 mcg/ Dextrose 100 mls @ 5 mls/hr IVPB TITR [facility]; Protocol Last Titration: 08/21/18 22:19 Dose: 100 mcg/hr, 20 mls/hr Propofol (Diprivan -) 1,000,000 mcg in 100 mls @ 16.98 mls/hr IVPB TITR [facility]; Protocol Last Admin: 08/22/18 10:14 Dose: 40 mcg/kg/min, 13.584 mls/hr Meropenem 1 gm/ Dextrose 100 mls @ 200 mls/hr IVPB Q8H-IV [facility] Last Admin: 08/22/18 10:13 Dose: 200 mls/hr Midazolam HCl 100 mg/ Sodium (Chloride) 100 mls @ 1 mls/hr IVPB TITR [facility]; Protocol Last Titration: 08/22/18 10:14 Dose: 3 mg/hr, 3 mls/hr Losartan Potassium (Cozaar -) 50 mg PO BID [facility] Last Admin: 08/22/18 09:47 Dose: 50 mg Methylprednisolone Sodium Succinate (Solu-Medrol -) 40 mg IVPUSH DAILY [facility] Midazolam HCl (Versed -) 2 mg IVPUSH Q3H PRN PRN Reason: AGITATION Last Admin: 08/20/18 22:35 Dose: 2 mg Mupirocin (Bactroban Ointment (For Decolonization) -) 1 applic NS BID [facility] Stop: 08/22/18 21:59 Last Admin: 08/22/18 09:48 Dose: 1 applic Pantoprazole Sodium (Protonix Iv) 40 mg IVPUSH DAILY [facility] Last Admin: 08/22/18 09:48 Dose: 40 mg Ranolazine (Ranexa -) 500 mg PO BID [facility] Last Admin: 08/22/18 09:47 Dose: 500 mg Spironolactone (Aldactone -) 25 mg NGT DAILY [facility] Last Admin: 08/22/18 09:47 Dose: 25 mg ASSESSMENT AND PLAN: Acute on Chronic Hypoxic and Hypercapneic Respiratory Failure Acute COPD Exacerbation Pneumonia Volume Overload Pulmonary HTN LV Diastolic Dysfunction CAD s/p CABG +Troponins likely Demand Ischemia PAD HIV Hep C HTN Hypercholesterolemia - continue antibiotics - f/u cultures - decrease medrol to daily - inhaled bronchodilators - taper FiO2 to keep SpO2 >90% - titrate versed gtt for vent synchrony - not a candidate for weaning at this time given tachypnea on assist control - enteral feeds - DVT/GI prophylaxis - continue ICU monitoring - pallative care eval, will likely need tracheostomy for prolonged intubation critical care time spent in reviewing chart, evaluating patient and formulating plan 35 min
[2018-08-22] MEDS: FENTANYL INJECTION 500 MCG in DEXTROSE 5%-WATER - 90 ML IVPB SCH (14:00)
[2018-08-22] MEDS: MIDAZOLAM 100 MG in SODIUM CHLORIDE 100 ML IVPB SCH (14:00)
[2018-08-22] MEDS ORDERED: PROPOFOL 1,000,000 MCG/100 ML VIAL ONE (15:11)
--- NOTE | 2018-08-22 17:03 | PN ---
Progress Note, Physician History of Present Illness: Pt seen and examined at bedside. She remains in the ICU. - Current Medication List Current Medications: Active Medications Abacavir/Dolutegravir/Lamivudine (Triumeq (Non-Formulary)) 1 each PO DAILY [facility] Last Admin: 08/22/18 10:14 Dose: 1 each Acetaminophen (Tylenol Oral Solution -) 1,000 mg PO Q6H PRN PRN Reason: FEVER Last Admin: 08/22/18 06:25 Dose: 1,000 mg Acetaminophen (Ofirmev Injection -) 1,000 mg IVPB Q6H PRN PRN Reason: FEVER Last Admin: 08/22/18 02:52 Dose: 1,000 mg Albuterol/Ipratropium (Duoneb -) 1 amp NEB RQID [facility] Last Admin: 08/22/18 16:13 Dose: 1 amp Carvedilol (Coreg -) 12.5 mg PO BID [facility] Last Admin: 08/22/18 09:48 Dose: 12.5 mg Chlorhexidine Gluconate (Peridex -) 15 ml MM BID [facility] Last Admin: 08/22/18 10:13 Dose: 15 ml Clopidogrel Bisulfate (Plavix -) 75 mg PO DAILY [facility] Last Admin: 08/22/18 09:48 Dose: 75 mg Heparin Sodium (Porcine) (Heparin -) 5,000 unit SQ TID [facility] Last Admin: 08/22/18 05:13 Dose: 5,000 unit Hydralazine HCl (Apresoline -) 50 mg NGT TID [facility] Last Admin: 08/22/18 05:13 Dose: 50 mg Nafcillin Sodium 2 gm/ (Dextrose) 100 mls @ 100 mls/hr IVPB Q4H-IV [facility]; Protocol Last Admin: 08/22/18 11:27 Dose: 100 mls/hr Fentanyl 500 mcg/ Dextrose 100 mls @ 5 mls/hr IVPB TITR [facility]; Protocol Last Titration: 08/21/18 22:19 Dose: 100 mcg/hr, 20 mls/hr Propofol (Diprivan -) 1,000,000 mcg in 100 mls @ 16.98 mls/hr IVPB TITR [facility]; Protocol Last Admin: 08/22/18 10:14 Dose: 40 mcg/kg/min, 13.584 mls/hr Meropenem 1 gm/ Dextrose 100 mls @ 200 mls/hr IVPB Q8H-IV [facility] Last Admin: 08/22/18 10:13 Dose: 200 mls/hr Midazolam HCl 100 mg/ Sodium (Chloride) 100 mls @ 1 mls/hr IVPB TITR [facility]; Protocol Last Titration: 08/22/18 10:14 Dose: 3 mg/hr, 3 mls/hr Losartan Potassium (Cozaar -) 50 mg PO BID [facility] Last Admin: 08/22/18 09:47 Dose: 50 mg Methylprednisolone Sodium Succinate (Solu-Medrol -) 40 mg IVPUSH DAILY [facility] Mupirocin (Bactroban Ointment (For Decolonization) -) 1 applic NS BID [facility] Stop: 08/22/18 21:59 Last Admin: 08/22/18 09:48 Dose: 1 applic Pantoprazole Sodium (Protonix Iv) 40 mg IVPUSH DAILY [facility] Last Admin: 08/22/18 09:48 Dose: 40 mg Ranolazine (Ranexa -) 500 mg PO BID [facility] Last Admin: 08/22/18 09:47 Dose: 500 mg Spironolactone (Aldactone -) 25 mg NGT DAILY [facility] Last Admin: 08/22/18 09:47 Dose: 25 mg - Objective Vital Signs: Vital Signs Temperature 99 F 08/22/18 08:00 Pulse Rate 106 H 08/22/18 10:00 Respiratory Rate 27 H 08/22/18 16:12 Blood Pressure 99/66 08/22/18 10:00 O2 Sat by Pulse Oximetry (%) 96 08/22/18 11:32 Constitutional: Yes: Calm HENT: Yes: Atraumatic Cardiovascular: Yes: S1, S2 Respiratory: Yes: Mechanically Ventilated Gastrointestinal: Yes: Soft, Other (diarrhea) Genitourinary: Yes: Torres Present Musculoskeletal: Yes: Muscle Weakness Edema: No Edema: LUE: Trace, RUE: Trace Neurological: Yes: Lethargy Labs: CBC, BMP 08/22/18 05:30 08/22/18 05:30 INR, PTT INR 1.34 (0.83-1.09) H 08/22/18 05:30 Problem List - Problems (1) Acute renal failure Code(s): N17.9 - ACUTE KIDNEY FAILURE, UNSPECIFIED Qualifiers: Acute renal failure type: unspecified Qualified Code(s): N17.9 - Acute kidney failure, unspecified (2) Altered mental status, unspecified Code(s): R41.82 - ALTERED MENTAL STATUS, UNSPECIFIED Qualifiers: Altered mental status type: somnolence Qualified Code(s): R40.0 - Somnolence (3) CHF (congestive heart failure) Code(s): I50.9 - HEART FAILURE, UNSPECIFIED Qualifiers: Heart failure type: diastolic Heart failure chronicity: chronic Qualified Code(s): I50.32 - Chronic diastolic (congestive) heart failure (4) COPD with acute exacerbation Code(s): J44.1 - CHRONIC OBSTRUCTIVE PULMONARY DISEASE W (ACUTE) EXACERBATION (5) Hyperkalemia Code(s): E87.5 - HYPERKALEMIA Assessment/Plan Current Medications Generic Name Dose Route Start Last Admin Trade Name Freq PRN Reason Stop Dose Admin Abacavir/Dolutegravir/Lamivudine 1 each 08/10/18 14:00 08/22/18 10:14 Triumeq (Non-Formulary) PO 1 each DAILY [facility] Administration Acetaminophen 1,000 mg 08/16/18 16:11 08/22/18 06:25 Tylenol Oral Solution - PO 1,000 mg Q6H PRN Administration FEVER Acetaminophen 1,000 mg 08/22/18 02:41 08/22/18 02:52 Ofirmev Injection - IVPB 1,000 mg Q6H PRN Administration FEVER Albuterol/Ipratropium 1 amp 08/17/18 16:00 08/22/18 16:13 Duoneb - NEB 1 amp RQID [facility] Administration Carvedilol 12.5 mg 08/10/18 10:00 08/22/18 09:48 Coreg - PO 12.5 mg BID [facility] Administration Chlorhexidine Gluconate 15 ml 08/17/18 22:00 08/22/18 10:13 Peridex - MM 15 ml BID [facility] Administration Clopidogrel Bisulfate 75 mg 08/10/18 10:00 08/22/18 09:48 Plavix - PO 75 mg DAILY [facility] Administration Heparin Sodium (Porcine) 5,000 unit 08/17/18 14:00 08/22/18 05:13 Heparin - SQ 5,000 unit TID [facility] Administration Hydralazine HCl 50 mg 08/11/18 14:08 08/22/18 05:13 Apresoline - NGT 50 mg TID [facility] Administration Nafcillin Sodium 2 gm/ 100 mls @ 100 mls/hr 08/19/18 20:00 08/22/18 11:27 Dextrose IVPB 100 mls/hr Q4H-IV [facility] Administration Protocol Fentanyl 500 mcg/ Dextrose 100 mls @ 5 mls/hr 08/20/18 10:30 08/21/18 22:19 IVPB 100 mcg/hr TITR [facility] 20 mls/hr Titration Protocol 25 MCG/HR Propofol 1,000,000 mcg in 100 mls @ 16.98 mls/hr 08/20/18 10:39 08/22/18 10: 14 Diprivan - IVPB 40 mcg/kg/min TITR [facility] 13.584 mls/hr Administration Protocol 50 MCG/KG/MIN Meropenem 1 gm/ Dextrose 100 mls @ 200 mls/hr 08/21/18 10:00 08/22/18 10:13 IVPB 200 mls/hr Q8H-IV [facility] Administration Midazolam HCl 100 mg/ Sodium 100 mls @ 1 mls/hr 08/21/18 10:00 08/22/18 10:14 Chloride IVPB 3 mg/hr TITR [facility] 3 mls/hr Titration Protocol 1 MG/HR Losartan Potassium 50 mg 08/11/18 13:00 08/22/18 09:47 Cozaar - PO 50 mg BID [facility] Administration Methylprednisolone Sodium Succinate 40 mg 08/23/18 10:00 Solu-Medrol - IVPUSH DAILY [facility] Mupirocin 1 applic 08/17/18 22:00 08/22/18 09:48 Bactroban Ointment (For Decolonization) - NS 08/22/18 21:59 1 applic BID [facility] Administration Pantoprazole Sodium 40 mg 08/11/18 13:15 08/22/18 09:48 Protonix Iv IVPUSH 40 mg DAILY [facility] Administration Ranolazine 500 mg 08/10/18 11:30 08/22/18 09:47 Ranexa - PO 500 mg BID [facility] Administration Spironolactone 25 mg 08/11/18 14:15 08/22/18 09:47 Aldactone - NGT 25 mg DAILY [facility] Administration Impression 1. KRISTIAN 2. Hyperkalemia 3. HIV 4. hyponatremia 5. altered mental status 6. pulm HTN 7. htn 8. pvd 9. resp acidosis 10. resp failure requiring intubation Plan - steroid taper as tolerated - decrease rate of feeds - dietary eval - hold aldactone as she has diarrhea - cont with free water - vent support - check stool for occult blood
--- NOTE | 2018-08-22 18:44 | HOSP ---
Subjective - Review of Symptoms Subjective: Paged by nurse to bedside as patient was desaturating to 85% with tachycardia to 150 bpm on 50% FiO2. Suctioning of tube and oral cavity done without improvement. FiO2 increased to 80% without improvement. Patient increased to 100% FiO2 and saturation improved to 100%. CXR, ABG ordered. Physical exam unchanged at the time of evaluation. Will monitor patient closely and attempt to wean back down to a lower FiO2 as tolerated. Physical Examination Vital Signs: Vital Signs Temperature 99 F 08/22/18 08:00 Pulse Rate 106 H 08/22/18 10:00 Respiratory Rate 26 H 08/22/18 18:31 Blood Pressure 99/66 08/22/18 10:00 O2 Sat by Pulse Oximetry (%) 96 08/22/18 11:32 Labs: CBC, BMP 08/22/18 05:30 08/22/18 05:30 Visit type - Emergency Visit Emergency Visit: Yes ED Registration Date: 08/08/18 Care time: The patient presented to the Emergency Department on the above date and was hospitalized for further evaluation of their emergent condition. - New Patient This patient is new to me today: No - Critical Care Critical Care patient: Yes Total Critical Care Time (in minutes): 40 Critical Care Statement: The care of this patient involved high complexity decision making to prevent further life threatening deterioration of the patient 's condition and/or to evaluate & treat vital organ system(s) failure or risk of failure.
[2018-08-22 19:12] LABS: ARTERIAL BLD GAS O2 SATURATION 99.2 % (95-98); ARTERIAL BLOOD GAS BASE EXCESS 3.1 meq/l (-2-2); ARTERIAL BLOOD GAS PO2 223 mmHg (80-105)
[2018-08-22 19:15] LABS: ARTERIAL BLOOD GAS PCO2 86.4 mmHg (35-45)
[2018-08-22 19:16] LABS: ALLENS TEST POSITIVE
--- NOTE | 2018-08-22 19:42 | PN ---
Progress Note, Physician History of Present Illness: intubated - Current Medication List Current Medications: Active Medications Abacavir/Dolutegravir/Lamivudine (Triumeq (Non-Formulary)) 1 each PO DAILY [facility] Last Admin: 08/22/18 10:14 Dose: 1 each Acetaminophen (Tylenol Oral Solution -) 1,000 mg PO Q6H PRN PRN Reason: FEVER Last Admin: 08/22/18 06:25 Dose: 1,000 mg Acetaminophen (Ofirmev Injection -) 1,000 mg IVPB Q6H PRN PRN Reason: FEVER Last Admin: 08/22/18 02:52 Dose: 1,000 mg Albuterol/Ipratropium (Duoneb -) 1 amp NEB RQID [facility] Last Admin: 08/22/18 16:13 Dose: 1 amp Carvedilol (Coreg -) 12.5 mg PO BID [facility] Last Admin: 08/22/18 09:48 Dose: 12.5 mg Chlorhexidine Gluconate (Peridex -) 15 ml MM BID [facility] Last Admin: 08/22/18 10:13 Dose: 15 ml Clopidogrel Bisulfate (Plavix -) 75 mg PO DAILY [facility] Last Admin: 08/22/18 09:48 Dose: 75 mg Heparin Sodium (Porcine) (Heparin -) 5,000 unit SQ TID [facility] Last Admin: 08/22/18 15:30 Dose: 5,000 unit Hydralazine HCl (Apresoline -) 50 mg NGT TID [facility] Last Admin: 08/22/18 16:00 Dose: 50 mg Nafcillin Sodium 2 gm/ (Dextrose) 100 mls @ 100 mls/hr IVPB Q4H-IV [facility]; Protocol Last Admin: 08/22/18 18:20 Dose: 100 mls/hr Fentanyl 500 mcg/ Dextrose 100 mls @ 5 mls/hr IVPB TITR [facility]; Protocol Last Admin: 08/22/18 14:00 Dose: 100 mcg/hr, 20 mls/hr Propofol (Diprivan -) 1,000,000 mcg in 100 mls @ 16.98 mls/hr IVPB TITR [facility]; Protocol Last Admin: 08/22/18 19:09 Dose: Not Given Meropenem 1 gm/ Dextrose 100 mls @ 200 mls/hr IVPB Q8H-IV [facility] Last Admin: 08/22/18 18:27 Dose: 200 mls/hr Midazolam HCl 100 mg/ Sodium (Chloride) 100 mls @ 1 mls/hr IVPB TITR [facility]; Protocol Last Admin: 08/22/18 14:00 Dose: 3 mg/hr, 3 mls/hr Losartan Potassium (Cozaar -) 50 mg PO BID [facility] Last Admin: 08/22/18 09:47 Dose: 50 mg Methylprednisolone Sodium Succinate (Solu-Medrol -) 40 mg IVPUSH DAILY [facility] Mupirocin (Bactroban Ointment (For Decolonization) -) 1 applic NS BID [facility] Stop: 08/22/18 21:59 Last Admin: 08/22/18 09:48 Dose: 1 applic Pantoprazole Sodium (Protonix Iv) 40 mg IVPUSH DAILY [facility] Last Admin: 08/22/18 09:48 Dose: 40 mg Ranolazine (Ranexa -) 500 mg PO BID [facility] Last Admin: 08/22/18 09:47 Dose: 500 mg - Objective Vital Signs: Vital Signs Temperature 99 F 08/22/18 16:00 Pulse Rate 120 H 08/22/18 18:00 Respiratory Rate 26 H 08/22/18 18:31 Blood Pressure 127/80 08/22/18 18:00 O2 Sat by Pulse Oximetry (%) 96 08/22/18 11:32 Constitutional: Yes: No Distress HENT: Yes: Atraumatic Neck: Yes: Supple Cardiovascular: Yes: Regular Rate and Rhythm Respiratory: Yes: Rhonchi Gastrointestinal: Yes: Normal Bowel Sounds Extremities: Yes: WNL Edema: No Neurological: Yes: Other (intubated) Labs: CBC, BMP 08/22/18 05:30 08/22/18 05:30 INR, PTT INR 1.34 (0.83-1.09) H 08/22/18 05:30 Problem List - Problems (1) Acute renal failure Assessment/Plan: monitor Code(s): N17.9 - ACUTE KIDNEY FAILURE, UNSPECIFIED Qualifiers: Acute renal failure type: unspecified Qualified Code(s): N17.9 - Acute kidney failure, unspecified (2) Altered mental status, unspecified Code(s): R41.82 - ALTERED MENTAL STATUS, UNSPECIFIED Qualifiers: Altered mental status type: somnolence Qualified Code(s): R40.0 - Somnolence (3) COPD with acute exacerbation Assessment/Plan: steroids duo nebs INTUBATED Code(s): J44.1 - CHRONIC OBSTRUCTIVE PULMONARY DISEASE W (ACUTE) EXACERBATION (4) Elevated troponin I level Code(s): R74.8 - ABNORMAL LEVELS OF OTHER SERUM ENZYMES (5) Hyperkalemia Code(s): E87.5 - HYPERKALEMIA (6) COPD (chronic obstructive pulmonary disease) Code(s): J44.9 - CHRONIC OBSTRUCTIVE PULMONARY DISEASE, UNSPECIFIED Qualifiers: (7) HIV Assessment/Plan: continue home meds Code(s): Z21 - ASYMPTOMATIC HUMAN IMMUNODEFICIENCY VIRUS INFECTION STATUS (8) HTN (hypertension) Assessment/Plan: monitor on meds Code(s): I10 - ESSENTIAL (PRIMARY) HYPERTENSION Qualifiers: Hypertension type: essential hypertension Qualified Code(s): I10 - Essential (primary) hypertension (9) Hyperlipidemia Code(s): E78.5 - HYPERLIPIDEMIA, UNSPECIFIED Qualifiers: Hyperlipidemia type: pure hypercholesterolemia Qualified Code(s): E78.00 - Pure hypercholesterolemia, unspecified; E78.0 - Pure hypercholesterolemia (10) PVD (peripheral vascular disease) Code(s): I73.9 - PERIPHERAL VASCULAR DISEASE, UNSPECIFIED (11) CHF (congestive heart failure) Code(s): I50.9 - HEART FAILURE, UNSPECIFIED Qualifiers: Heart failure type: diastolic Heart failure chronicity: chronic Qualified Code(s): I50.32 - Chronic diastolic (congestive) heart failure (12) Sepsis Assessment/Plan: on abx monitor wbc Code(s): A41.9 - SEPSIS, UNSPECIFIED ORGANISM Assessment/Plan cc time in icu 35 min
[2018-08-22 21:41] LABS: ARTERIAL BLD GAS O2 SATURATION 85.7 % (95-98); ARTERIAL BLOOD GAS BASE EXCESS 2.6 meq/l (-2-2); ARTERIAL BLOOD GAS PO2 54.9 mmHg (80-105); ARTERIAL BLOOD GAS pH 7.22 (7.35-7.45)
[2018-08-22 21:42] LABS: ALLENS TEST POSITIVE
[2018-08-22 21:43] LABS: ARTERIAL BLOOD GAS PCO2 80.2 mmHg (35-45)
--- NOTE | 2018-08-22 22:43 | PN ---
Progress Note (short form) - Note Progress Note: Called by nurse due to ABG settings; pH 7.20; Co2 86.4; and oxygen of 223; at time of ABG draw; FIO2 100%; RR14; TV 350 -patient tachypniec; RR in the 30s Assessment/PLAN -Acute hypercapniec respiratory acidosis/failure ; with increased bilateral pulmonary infiltrates CXR -increase RR 16; decrease Fio2 to 70%; repeat abg in 2h -repeat ABG : pH 7.22; Co2 80.2; O2 54.9 -with bilateral pulm infiltrates, hypoxia, PaO2/FiO2 ratio 77; -will adjust vent in the setting of ARDS -tidal volume 6Lx IBW = 370, higher PEEP ; increased to 10; increased RR for hypercapnia; monitor wave loops for auto peep,air trapping -maintain PP <30 -maintain negative fluid balance -adjust sedation for vent synch -prone position -repeat abg improved;co2; 74; O2 90;
[2018-08-23 00:40] LABS: ARTERIAL BLD GAS O2 SATURATION 96.3 % (95-98); ARTERIAL BLOOD GAS PO2 90.4 mmHg (80-105); ARTERIAL BLOOD GAS pH 7.24 (7.35-7.45)
[2018-08-23 00:41] LABS: ALLENS TEST POSITIVE
[2018-08-23 00:42] LABS: ARTERIAL BLOOD GAS PCO2 74.1 mmHg (35-45)
[2018-08-23] MEDS ORDERED: MEROPENEM 1 GM VIAL (RESTRICTED TO ID) IVPB ONE ×4 (01:21→23:28)
[2018-08-23] MEDS ORDERED: DEXTROSE 5%-WATER 100 ML IVPB ONE ×4 (01:21→23:28)
[2018-08-23] MEDS ORDERED: PT OWN MED DRAWER 7, Y5N ONE ×5 (01:21→22:01)
[2018-08-23] MEDS: MEROPENEM 1 GM in DEXTROSE 5%-WATER 100 ML IVPB SCH ×3 (01:25→18:32)
[2018-08-23] MEDS: NAFCILLIN - 2 GM in DEXTROSE 5%-WATER - 100 ML IVPB SCH ×6 (01:26→22:01)
[2018-08-23] MEDS ORDERED: MIDAZOLAM 100 MG/100 ML MG IVPB ONE ×2 (02:45→23:28)
[2018-08-23] MEDS ORDERED: fentaNYL CITRATE 250 MCG/5 ML VIAL ONE ×2 (02:46→21:43)
[2018-08-23] MEDS: hydrALAZINE HCL 50 MG TABLET (FP) NGT SCH ×3 (05:38→21:41)
[2018-08-23] MEDS: BANATROL PLUS POWDER PACKET PO SCH ×3 (05:39→21:41)
[2018-08-23] MEDS: HEPARIN NA (PORCINE) 5,000 UNITS/ML 1ML VIAL SQ SCH ×3 (05:39→21:59)
[2018-08-23 06:14] LABS: ARTERIAL BLD GAS O2 SATURATION 92.8 % (95-98); ARTERIAL BLOOD GAS BASE EXCESS 2.9 meq/l (-2-2); ARTERIAL BLOOD GAS PO2 68.9 mmHg (80-105); ARTERIAL BLOOD GAS pH 7.26 (7.35-7.45)
[2018-08-23 06:15] LABS: ALLENS TEST POSITIVE
[2018-08-23 06:16] LABS: ARTERIAL BLOOD GAS PCO2 71.7 mmHg (35-45)
[2018-08-23 06:44] LABS: BASO % 0.2 % (0-2.0); HEMATOCRIT 27.7 % (32.4-45.2); HEMOGLOBIN 9.3 GM/dL (10.7-15.3); LYMPH % 2.4 % (8-40); MCH 31.1 pg (25.7-33.7); MCHC 33.5 g/dl (32.0-36.0); MEAN CELL VOLUME 92.9 fl (80-96); MEAN PLT VOLUME 8.8 fl (7.5-11.1); NEUT % 91.4 % (42.8-82.8); PLATELET COUNT 293 K/MM3 (134-434); RBC 2.98 M/mm3 (3.60-5.2); RDW 15.6 % (11.6-15.6)
--- NOTE | 2018-08-23 06:51 | PN ---
Physical Exam: SUBJECTIVE: Patient seen and examined HD# 15 Overnight Events: Febrile again overnight with downtrending BP. FiO2, RR, Tv, and PEEP increased for tachypnea and hypoxia. Propofol was held secondary to hypotension. OBJECTIVE: Lines: - PIV Drains: - NG - Rectal tube Supplemental Oxygen: Ventilator: Mode: AC Vent rate: 18 Tv: 370 PEEP: 10 FiO2: 80% Intake & Output 08/20/18 08/21/18 08/22/18 08/23/18 23:59 23:59 23:59 23:59 Intake Total 3766 3756.6 1470.8 1475.4 Output Total 1300 100 Balance 3766 2456.6 1370.8 1475.4 Weight 56.6 kg 56.6 kg 59.8 kg 59.5 kg Vital Signs Period Temp Pulse Resp BP Sys/Buck Pulse Ox Last 24 Hr 99 F-102.2 F 97-120 18-29 74-147/50-80 93-98 Physical Exams: GENERAL: The patient is sedated. Does not respond to verbal stimuli. HEAD: Normal with no signs of trauma. EYES: Closed. LUNGS: Intubated and mechanically ventilated. Deep and mildly rapid breathing. Breath sounds equal, with trace diffuse rhonchi. No wheezes or rales. HEART: Tachycardic rate with regular rhythm, S1, S2 without murmur, rub or gallop. ABDOMEN: Soft and nondistended. EXTREMITIES: 2+ pulses, warm, well-perfused, no edema. SKIN: Warm and dry Laboratory Results - last 24 hr 08/22/18 08/22/18 08/22/18 05:30 19:05 21:20 Neutrophils % (Manual) 90.8 H Band Neutrophils % 0.0 Lymphocytes % (Manual) 1.0 L Monocytes % (Manual) 8 Eosinophils % (Manual) 0.0 Basophils % (Manual) 0.0 Myelocytes % (Man) 0 Promyelocytes % (Man) 0 Blast Cells % (Manual) 0 Metamyelocytes 0 D Hypochromia 0 Platelet Estimate Normal Polychromasia 0 Poikilocytosis 0 Anisocytosis 1+ Microcytosis 0 Macrocytosis 1+ Target Cells 2+ Anticoagulation Therapy No Result Required. No Result Required. Puncture Site Right radial Right brachial ABG pH 7.20 L 7.22 L ABG pCO2 at Pt Temp 86.4 H* 80.2 H* ABG pO2 at Pt Temp 223 H 54.9 L ABG HCO3 32.5 H 31.7 H ABG O2 Sat (Measured) 99.2 H 85.7 L ABG O2 Content 14.2 L 70.0 H ABG Base Excess 3.1 H 2.6 H Trevor Test Positive Positive O2 Delivery Device 100% No Result Required. Oxygen Flow Rate No Result Required. Yes Vent Mode No Result Required. No Result Required. Vent Rate 14 No Result Required. Mechanical Rate No Result Required. No Result Required. PEEP 7.0 Pressure Support Vent No Result Required. No Result Required. 08/23/18 08/23/18 00:30 06:00 Neutrophils % (Manual) Band Neutrophils % Lymphocytes % (Manual) Monocytes % (Manual) Eosinophils % (Manual) Basophils % (Manual) Myelocytes % (Man) Promyelocytes % (Man) Blast Cells % (Manual) Metamyelocytes Hypochromia Platelet Estimate Polychromasia Poikilocytosis Anisocytosis Microcytosis Macrocytosis Target Cells Anticoagulation Therapy Puncture Site Right radial Right radial ABG pH 7.24 L 7.26 L ABG pCO2 at Pt Temp 74.1 H* 71.7 H* ABG pO2 at Pt Temp 90.4 68.9 L ABG HCO3 30.9 H 30.7 H ABG O2 Sat (Measured) 96.3 92.8 L ABG O2 Content 11.8 L 12.0 L ABG Base Excess 3.0 H 2.9 H Trevor Test Positive Positive O2 Delivery Device Vent Vent Oxygen Flow Rate 80 80% Vent Mode A/c A/c Vent Rate 18 18 Mechanical Rate PEEP 10.0 10.0 Pressure Support Vent 370 370 Active Medications Generic Name Dose Route Start Last Admin Trade Name Freq PRN Reason Stop Dose Admin Abacavir/Dolutegravir/Lamivudine 1 each 08/10/18 14:00 08/22/18 10:14 Triumeq (Non-Formulary) PO 1 each DAILY [facility] Administration Acetaminophen 1,000 mg 08/16/18 16:11 08/22/18 06:25 Tylenol Oral Solution - PO 1,000 mg Q6H PRN Administration FEVER Acetaminophen 1,000 mg 08/22/18 02:41 08/22/18 19:50 Ofirmev Injection - IVPB 1,000 mg Q6H PRN Administration FEVER Albuterol/Ipratropium 1 amp 08/17/18 16:00 08/22/18 20:30 Duoneb - NEB 1 amp RQID [facility] Administration Carvedilol 12.5 mg 08/10/18 10:00 08/22/18 21:29 Coreg - PO 12.5 mg BID [facility] Administration Chlorhexidine Gluconate 15 ml 08/17/18 22:00 08/22/18 22:04 Peridex - MM 15 ml BID [facility] Administration Clopidogrel Bisulfate 75 mg 08/10/18 10:00 08/22/18 09:48 Plavix - PO 75 mg DAILY [facility] Administration Heparin Sodium (Porcine) 5,000 unit 08/17/18 14:00 08/23/18 05:39 Heparin - SQ 5,000 unit TID [facility] Administration Hydralazine HCl 50 mg 08/11/18 14:08 08/23/18 05:38 Apresoline - NGT Not Given TID [facility] Nafcillin Sodium 2 gm/ 100 mls @ 100 mls/hr 08/19/18 20:00 08/23/18 05:45 Dextrose IVPB 100 mls/hr Q4H-IV [facility] Administration Protocol Fentanyl 500 mcg/ Dextrose 100 mls @ 5 mls/hr 08/20/18 10:30 08/22/18 19:57 IVPB 100 mcg/hr TITR [facility] 20 mls/hr Titration Protocol 25 MCG/HR Propofol 1,000,000 mcg in 100 mls @ 16.98 mls/hr 08/20/18 10:39 08/22/18 19: 09 Diprivan - IVPB Not Given TITR [facility] Protocol 50 MCG/KG/MIN Meropenem 1 gm/ Dextrose 100 mls @ 200 mls/hr 08/21/18 10:00 08/23/18 01:25 IVPB 200 mls/hr Q8H-IV [facility] Administration Midazolam HCl 100 mg/ Sodium 100 mls @ 1 mls/hr 08/21/18 10:00 08/23/18 02:50 Chloride IVPB 2 mg/hr TITR [facility] 2 mls/hr Titration Protocol 1 MG/HR Losartan Potassium 50 mg 08/11/18 13:00 08/22/18 21:29 Cozaar - PO 50 mg BID [facility] Administration Methylprednisolone Sodium Succinate 40 mg 08/23/18 10:00 Solu-Medrol - IVPUSH DAILY [facility] Pantoprazole Sodium 40 mg 08/11/18 13:15 08/22/18 09:48 Protonix Iv IVPUSH 40 mg DAILY [facility] Administration Ranolazine 500 mg 08/10/18 11:30 08/22/18 21:29 Ranexa - PO 500 mg BID [facility] Administration ASSESSMENT/PLAN: 67 year old female with HTN, CAD s/p CABG in 2009, PVD with B/L LE stents, HIV, HEP C, COPD and CHF. Admitted to the ICU for Acute hypoxic hypercapnic respiratory failure and dehydration. Neuro: - Currently sedated with Propofol (held for hypotension), Fentanyl, and Versed drips. No attempt at sedation wean today given increased respiratory effort. Endocrine: - Consult: Dr. Leach - Cr continues to trend upward. Dr. Leach recommends slowing feed rate. Torres to be placed for strict I/Os. Ordered UA and urine electrolytes for further evaluation. - Continue to trend electrolytes - BGL trending upward. Suspect secondary to steroid usage. Will consider insulin sliding scale if trends above 250. Cardiovascular: - Consult: Dr. Fitzgerald - Borderline hypotension overnight. Possibly secondary to developing sepsis. Will place central line. Anticipate pt will require fluid bolus. - LV Diastolic/Systolic Dysfunction -c/w home Clopidogrel -c/w home Carvedilol, Hydralazine, Losartan for BP control -c/w home Ranolazine and Spironolactone Pulm / Resp: - Acute on Chronic Hypoxic and Hypercapneic Respiratory Failure likely secondary to pneumonia. - Continue albuterol PRN. Standing QID nebs changed from albuterol to duonebs - Solu-medrol wean to 40mg daily. - CXR revealed worsening infiltrates bilaterally concerning for worsening pneumonia. - Continues to require increased ventilatory support over changes from yesterday. Plateau pressure estimated to be in low 20s. PaO2/FiO2 ratio suggestive for severe ARDS. Will trial PEEP of 10 and FiO2 of 50. - SPO2 goal 90% - pH goal 7.2, allowing for permissive hypercapnia - Today is intubation day 13. Low suspicion pt will be able to tolerate extubation in the next few days.Trach again discussed with family last evening. Daughter is not ready to make the decision. Gastrointestinal: - Mild diarrhea noted in rectal tube. Possibly secondary to tube feeds. Infectious Disease: - Consult Dr. Bill - h/o HIV: continue HAART Therapy per ID - Leukocytosis trended steady overnight with fever and hypotension. Likely secondary to worsening pneumonia versus other infectious process. Ordered repeat urine and sputum culture. Blood cultures recently drawn; NGTD. Ordered lactic acid to evaluate for developing sepsis. - Continue Merrem (Day 3),Nafcillin (Day 5), and Ceftazidine (Day 2) for antibiotic coverage. FEN: - Electrolytes within normal limits today. -Tube Feed per dietary Prophylaxis: -DVT: Heparin SQ -GI: Pantoprazole Family Discussion: - Family meeting scheduled with palliative care team for 3p today. Will discuss trach placement and code status. Dispo: Continue to monitor the intubated pt in the ICU. Consider trach placement. Anderz Tolentino MD, PGY1 ICU Consult Service Visit type - Emergency Visit Emergency Visit: No - New Patient This patient is new to me today: No - Critical Care Critical Care patient: Yes Total Critical Care Time (in minutes): 50 Critical Care Statement: The care of this patient involved high complexity decision making to prevent further life threatening deterioration of the patient 's condition and/or to evaluate & treat vital organ system(s) failure or risk of failure.
[2018-08-23 07:03] LABS: ANION GAP 8 MMOL/L (8-16); BLOOD UREA NITROGEN 72 mg/dL (7-18); CALCIUM 9.5 mg/dL (8.5-10.1); CHLORIDE 96 mmol/L (98-107); CO2 32 mmol/L (21-32); CREATININE 1.8 mg/dL (0.55-1.3); GLUCOSE,RANDOM 209 mg/dL (74-106); MAGNESIUM 2.3 mg/dL (1.8-2.4); PHOSPHOROUS 4.9 mg/dL (2.5-4.9); POTASSIUM 3.7 mmol/L (3.5-5.1); SODIUM 136 mmol/L (136-145)
--- NOTE | 2018-08-23 07:27 | PN ---
Progress Note (short form) - Note Progress Note: Chief Complaint: Events noted, notes reviewed, remains intubated and sedated, sinus tachycardia noted History of Present Illness: Seen and examined in the ICU. Events noted, notes reviewed, remains intubated and sedated, sinus tachycardia noted - Current Medication List Current Medications Abacavir/Dolutegravir/Lamivudine (Triumeq (Non-Formulary)) 1 each PO DAILY [facility] Last Admin: 08/22/18 10:14 Dose: 1 each Acetaminophen (Tylenol Oral Solution -) 1,000 mg PO Q6H PRN PRN Reason: FEVER Last Admin: 08/22/18 06:25 Dose: 1,000 mg Acetaminophen (Ofirmev Injection -) 1,000 mg IVPB Q6H PRN PRN Reason: FEVER Last Admin: 08/22/18 19:50 Dose: 1,000 mg Albuterol/Ipratropium (Duoneb -) 1 amp NEB RQID [facility] Last Admin: 08/22/18 20:30 Dose: 1 amp Carvedilol (Coreg -) 12.5 mg PO BID [facility] Last Admin: 08/22/18 21:29 Dose: 12.5 mg Chlorhexidine Gluconate (Peridex -) 15 ml MM BID [facility] Last Admin: 08/22/18 22:04 Dose: 15 ml Clopidogrel Bisulfate (Plavix -) 75 mg PO DAILY [facility] Last Admin: 08/22/18 09:48 Dose: 75 mg Heparin Sodium (Porcine) (Heparin -) 5,000 unit SQ TID [facility] Last Admin: 08/23/18 05:39 Dose: 5,000 unit Hydralazine HCl (Apresoline -) 50 mg NGT TID [facility] Last Admin: 08/23/18 05:38 Dose: Not Given Nafcillin Sodium 2 gm/ (Dextrose) 100 mls @ 100 mls/hr IVPB Q4H-IV [facility]; Protocol Last Admin: 08/23/18 05:45 Dose: 100 mls/hr Fentanyl 500 mcg/ Dextrose 100 mls @ 5 mls/hr IVPB TITR [facility]; Protocol Last Titration: 08/22/18 19:57 Dose: 100 mcg/hr, 20 mls/hr Propofol (Diprivan -) 1,000,000 mcg in 100 mls @ 16.98 mls/hr IVPB TITR [facility]; Protocol Last Admin: 08/22/18 19:09 Dose: Not Given Meropenem 1 gm/ Dextrose 100 mls @ 200 mls/hr IVPB Q8H-IV [facility] Last Admin: 08/23/18 01:25 Dose: 200 mls/hr Midazolam HCl 100 mg/ Sodium (Chloride) 100 mls @ 1 mls/hr IVPB TITR [facility]; Protocol Last Titration: 08/23/18 02:50 Dose: 2 mg/hr, 2 mls/hr Losartan Potassium (Cozaar -) 50 mg PO BID [facility] Last Admin: 08/22/18 21:29 Dose: 50 mg Methylprednisolone Sodium Succinate (Solu-Medrol -) 40 mg IVPUSH DAILY [facility] Pantoprazole Sodium (Protonix Iv) 40 mg IVPUSH DAILY [facility] Last Admin: 08/22/18 09:48 Dose: 40 mg Ranolazine (Ranexa -) 500 mg PO BID [facility] Last Admin: 08/22/18 21:29 Dose: 500 mg Review of Systems Unable to obtain - Objective Vital Signs: Last Vital Signs Temp Pulse Resp BP Pulse Ox 99.4 F 108 H 25 H 83/56 L 98 08/23/18 06:00 08/23/18 06:00 08/23/18 06:37 08/23/18 06:00 08/22/18 21:00 Intake & Output 08/20/18 08/21/18 08/22/18 08/23/18 23:59 23:59 23:59 23:59 Intake Total 3766 3756.6 1470.8 1475.4 Output Total 1300 100 Balance 3766 2456.6 1370.8 1475.4 Weight 124 lb 12.506 oz 124 lb 12.506 oz 131 lb 13.383 oz 131 lb 2.801 oz Neck: Supple Negative JVD No Bruit Cardiovascular: S1 S2 Regular Rate and Rhythm Respiratory: Diminished Breath Sounds at the Bases Bilaterally Gastrointestinal: Soft Benign Normal Bowel Sounds Ext: Negative Edema Labs: ABG Results ABG pH 7.26 (7.35-7.45) L 08/23/18 06:00 ABG pCO2 at Pt Temp 71.7 mmHg (35-45) H* 08/23/18 06:00 ABG pO2 at Pt Temp 68.9 mmHg (80-105) L 08/23/18 06:00 ABG HCO3 30.7 mmol/L (22-27) H 08/23/18 06:00 ABG O2 Sat (Measured) 92.8 % (95-98) L 08/23/18 06:00 ABG O2 Content 12.0 % vol (15-22) L 08/23/18 06:00 ABG Base Excess 2.9 meq/l (-2-2) H 08/23/18 06:00 CBC, BMP 08/23/18 05:30 08/23/18 05:30 Hepatic Panel Total Bilirubin 0.8 mg/dL (0.2-1) 08/22/18 05:30 AST 20 U/L (15-37) 08/22/18 05:30 ALT 14 U/L (13-61) 08/22/18 05:30 Alkaline Phosphatase 60 U/L (45-117) 08/22/18 05:30 Albumin 1.8 g/dl (3.4-5.0) L 08/22/18 05:30 INR, PTT INR 1.34 (0.83-1.09) H 08/22/18 05:30 Assessment/Plan ASSESSMENT: 1. Acute on chronic hypercapneic/hypoxemic respiratory failure on mechanical ventilation 2. Acute exacerbation of chronic obstructive pulmonary disease 3. Right Heart Failure with Severe Pulmonary HTN 4. Acute on chronic class I-II NYHA classification LV failure related to diastolic dysfunction, resolving 5. CAD post CABG with evidence of demand ischemia angina pectoris 7. HTN 8. Hypercholesterolemia 9. PAD post SFA stent 10. Acute on CKD, pre-renal azotemia 11. Toxic metabolic encephelopathy, persistent 12. HIV and Hepatitis C 13. Cholelithiasis PLAN: 1. Continue Losartan with close monitoring of renal function 2. Continue Carvedilol 3. Continue Hydralazine 4. Continue Plavix 5. D/C Ranexa cannot be administered via NG tube, cannot be crushed 6. Steroid and bronchodilator as per critical care team 7. Antibiotic as per the primary team 8. Overall poor prognosis, plan for tracheostomy/PEG insertion Tabatha Hogan M.D.
[2018-08-23] MEDS ORDERED: SODIUM CHLORIDE 500 ML IV STA ×2 (08:15→13:28)
[2018-08-23] MEDS: ALBUTEROL SO4 2.5/IPRATROPIUM 0.5 INH SOL 3 ML VIAL.NEB. NEB SCH ×4 (09:00→21:15)
[2018-08-23] MEDS: ABACAVIR/DOLUTEGRAVIR/LAMIVUDI (TRIUMEQ) TABLET -NF PO SCH (09:28)
[2018-08-23] MEDS: CHLORHEXIDINE GLUCONATE 0.12% 15ML CUP MM SCH ×2 (09:28→21:59)
[2018-08-23] MEDS: methylPREDNISolone NA SUCC 40 MG/1 ML VIAL IVPUSH SCH (09:28)
[2018-08-23] MEDS: CLOPIDOGREL BISULFATE 75 MG TABLET (FP) PO SCH (09:28)
[2018-08-23] MEDS: PANTOPRAZOLE SODIUM 40 MG VIAL IVPUSH SCH (09:29)
[2018-08-23] MEDS: CARVEDILOL 12.5 MG TABLET (FP) PO SCH ×2 (09:39→21:42)
[2018-08-23] MEDS: LOSARTAN POTASSIUM 50 MG TABLET (FP) PO SCH (09:39)
--- NOTE | 2018-08-23 10:35 | PN ---
Progress Note, Physician History of Present Illness: SEDATED ON VENTILATOR REMAISN FEBRILE WBC SLIGHTLY IMPROVED BC MSSA SPUTUM C/S MSSA PSEUDOMONAS WORSENING AZOTEMIA - Current Medication List Current Medications: Active Medications Abacavir/Dolutegravir/Lamivudine (Triumeq (Non-Formulary)) 1 each PO DAILY [facility] Last Admin: 08/23/18 09:28 Dose: 1 each Acetaminophen (Tylenol Oral Solution -) 1,000 mg PO Q6H PRN PRN Reason: FEVER Last Admin: 08/22/18 06:25 Dose: 1,000 mg Acetaminophen (Ofirmev Injection -) 1,000 mg IVPB Q6H PRN PRN Reason: FEVER Last Admin: 08/22/18 19:50 Dose: 1,000 mg Albuterol/Ipratropium (Duoneb -) 1 amp NEB RQID [facility] Last Admin: 08/23/18 09:00 Dose: 1 amp Carvedilol (Coreg -) 12.5 mg PO BID [facility] Last Admin: 08/23/18 09:39 Dose: Not Given Chlorhexidine Gluconate (Peridex -) 15 ml MM BID [facility] Last Admin: 08/23/18 09:28 Dose: 15 ml Clopidogrel Bisulfate (Plavix -) 75 mg PO DAILY [facility] Last Admin: 08/23/18 09:28 Dose: 75 mg Heparin Sodium (Porcine) (Heparin -) 5,000 unit SQ TID [facility] Last Admin: 08/23/18 05:39 Dose: 5,000 unit Hydralazine HCl (Apresoline -) 50 mg NGT TID [facility] Last Admin: 08/23/18 05:38 Dose: Not Given Nafcillin Sodium 2 gm/ (Dextrose) 100 mls @ 100 mls/hr IVPB Q4H-IV [facility]; Protocol Last Admin: 08/23/18 09:39 Dose: 100 mls/hr Fentanyl 500 mcg/ Dextrose 100 mls @ 5 mls/hr IVPB TITR [facility]; Protocol Last Titration: 08/22/18 19:57 Dose: 100 mcg/hr, 20 mls/hr Propofol (Diprivan -) 1,000,000 mcg in 100 mls @ 16.98 mls/hr IVPB TITR [facility]; Protocol Last Admin: 08/22/18 19:09 Dose: Not Given Meropenem 1 gm/ Dextrose 100 mls @ 200 mls/hr IVPB Q8H-IV [facility] Last Admin: 08/23/18 09:27 Dose: 200 mls/hr Midazolam HCl 100 mg/ Sodium (Chloride) 100 mls @ 1 mls/hr IVPB TITR [facility]; Protocol Last Titration: 08/23/18 02:50 Dose: 2 mg/hr, 2 mls/hr Sodium Chloride (Normal Saline -) 1,000 mls @ 100 mls/hr IV ASDIR [facility] Losartan Potassium (Cozaar -) 50 mg PO BID [facility] Last Admin: 08/23/18 09:39 Dose: Not Given Methylprednisolone Sodium Succinate (Solu-Medrol -) 40 mg IVPUSH DAILY [facility] Last Admin: 08/23/18 09:28 Dose: 40 mg Pantoprazole Sodium (Protonix Iv) 40 mg IVPUSH DAILY [facility] Last Admin: 08/23/18 09:29 Dose: 40 mg - Objective Vital Signs: Vital Signs Temperature 99 F 08/23/18 07:57 Pulse Rate 104 H 08/23/18 07:57 Respiratory Rate 26 H 08/23/18 09:00 Blood Pressure 91/59 L 08/23/18 07:57 O2 Sat by Pulse Oximetry (%) 98 08/22/18 21:00 Constitutional: Yes: No Distress Cardiovascular: Yes: Regular Rate and Rhythm, S1, S2 Respiratory: Yes: Mechanically Ventilated Gastrointestinal: Yes: Normal Bowel Sounds. No: Tenderness Edema: LUE: 1+, RUE: 1+, LLE: 1+, RLE: 1+ Labs: CBC, BMP 08/23/18 05:30 08/23/18 05:30 INR, PTT INR 1.34 (0.83-1.09) H 08/22/18 05:30 Assessment/Plan SEPSIS MSSA BACTEREMIA ? PNEUMONIA ?ENDOCARDITIS RESPIRATORY FAILURE/ COPD EXACERBATION HCAP MARKED LEUKOCYTOSIS HIV+ CD4 437 REPEAT BC PENDING CONTINUE NAFCILLIN/ MEROPENEM HEMODYNAMIC/ VENTILATORY SUPPORT CONTINUE ART PROGNOSIS POOR
[2018-08-23 10:54] LABS: ANISOCYTOSIS 1+; MACROCYTOSIS 1+; PLATELET ESTIMATE NORMAL; TARGET CELLS 1+; TEAR DROP CELLS 1+; TOXIC GRANULATION 1+
[2018-08-23] MEDS ORDERED: TRIPLE LUMEN FLUSH 4 ML ML IVPUSH PRN (11:37)
--- NOTE | 2018-08-23 12:07 | PN ---
Teaching Attending Note Name of Resident: Andrez Tolentino ATTENDING PHYSICIAN STATEMENT I saw and evaluated the patient. I reviewed the resident's note and discussed the case with the resident. I agree with the resident's findings and plan as documented. SUBJECTIVE: Pt seen and examined in the ICU. Remains intubated, sedated. Increased oxygen requirements overnight. Febrile with hypotension. OBJECTIVE: Vital Signs Period Temp Pulse Resp BP Sys/Buck Pulse Ox Last 24 Hr 99 F-102.2 F 97-120 18-28 74-147/50-80 98 Intake & Output 08/20/18 08/21/18 08/22/18 08/23/18 23:59 23:59 23:59 23:59 Intake Total 3766 3756.6 1470.8 1475.4 Output Total 1300 100 Balance 3766 2456.6 1370.8 1475.4 Weight 56.6 kg 56.6 kg 59.8 kg 59.5 kg Gen: intubated, sedated Heart: RRR Lung: bilateral rhonchi Abd: soft, nontender Ext: no edema CBC, BMP 08/23/18 05:30 08/23/18 05:30 Active Medications Abacavir/Dolutegravir/Lamivudine (Triumeq (Non-Formulary)) 1 each PO DAILY [facility] Last Admin: 08/23/18 09:28 Dose: 1 each Acetaminophen (Tylenol Oral Solution -) 1,000 mg PO Q6H PRN PRN Reason: FEVER Last Admin: 08/22/18 06:25 Dose: 1,000 mg Acetaminophen (Ofirmev Injection -) 1,000 mg IVPB Q6H PRN PRN Reason: FEVER Last Admin: 08/22/18 19:50 Dose: 1,000 mg Albuterol/Ipratropium (Duoneb -) 1 amp NEB RQID [facility] Last Admin: 08/23/18 09:00 Dose: 1 amp Carvedilol (Coreg -) 12.5 mg PO BID [facility] Last Admin: 08/23/18 09:39 Dose: Not Given Chlorhexidine Gluconate (Peridex -) 15 ml MM BID [facility] Last Admin: 08/23/18 09:28 Dose: 15 ml Clopidogrel Bisulfate (Plavix -) 75 mg PO DAILY [facility] Last Admin: 08/23/18 09:28 Dose: 75 mg Heparin Sodium (Porcine) (Heparin -) 5,000 unit SQ TID [facility] Last Admin: 08/23/18 05:39 Dose: 5,000 unit Hydralazine HCl (Apresoline -) 50 mg NGT TID [facility] Last Admin: 08/23/18 05:38 Dose: Not Given IV Flush (Triple Lumen Flush) 4 ml IVPUSH PRN PRN PRN Reason: Protocol Nafcillin Sodium 2 gm/ (Dextrose) 100 mls @ 100 mls/hr IVPB Q4H-IV [facility]; Protocol Last Admin: 08/23/18 09:39 Dose: 100 mls/hr Fentanyl 500 mcg/ Dextrose 100 mls @ 5 mls/hr IVPB TITR [facility]; Protocol Last Titration: 08/22/18 19:57 Dose: 100 mcg/hr, 20 mls/hr Propofol (Diprivan -) 1,000,000 mcg in 100 mls @ 16.98 mls/hr IVPB TITR [facility]; Protocol Last Admin: 08/22/18 19:09 Dose: Not Given Meropenem 1 gm/ Dextrose 100 mls @ 200 mls/hr IVPB Q8H-IV [facility] Last Admin: 08/23/18 09:27 Dose: 200 mls/hr Midazolam HCl 100 mg/ Sodium (Chloride) 100 mls @ 1 mls/hr IVPB TITR [facility]; Protocol Last Titration: 08/23/18 02:50 Dose: 2 mg/hr, 2 mls/hr Sodium Chloride (Normal Saline -) 1,000 mls @ 100 mls/hr IV ASDIR [facility] Losartan Potassium (Cozaar -) 50 mg PO BID [facility] Last Admin: 08/23/18 09:39 Dose: Not Given Methylprednisolone Sodium Succinate (Solu-Medrol -) 40 mg IVPUSH DAILY [facility] Last Admin: 08/23/18 09:28 Dose: 40 mg Pantoprazole Sodium (Protonix Iv) 40 mg IVPUSH DAILY [facility] Last Admin: 08/23/18 09:29 Dose: 40 mg ASSESSMENT AND PLAN: Acute on Chronic Hypoxic and Hypercapneic Respiratory Failure Acute COPD Exacerbation Pneumonia Severe Sepsis Acute Kidney Injury Metabolic and Respiratory Acidosis Pulmonary HTN LV Diastolic Dysfunction CAD s/p CABG +Troponins likely Demand Ischemia PAD HIV Hep C HTN Hypercholesterolemia - continue antibiotics - f/u pending cultures - place central line and check CVP - check lactate - may need pressors - IVF - monitor urine output, creatinine - send urine lytes, creatinine - medrol taper - inhaled bronchodilators - taper FiO2 to keep SpO2 >90% - titrate versed gtt for vent synchrony - low tidal ventilation <6cc/kg/IBW, keep Plat <30 - not a candidate for weaning at this time given tachypnea on assist control - enteral feeds - DVT/GI prophylaxis - continue ICU monitoring - pallative care eval, will likely need tracheostomy for prolonged intubation - continue discussions regarding goals of care critical care time spent in reviewing chart, evaluating patient and formulating plan 35 min
[2018-08-23] MEDS ORDERED: PROPOFOL 1,000,000 MCG/100 ML VIAL ONE (13:17)
--- NOTE | 2018-08-23 13:17 | PROC ---
<Andrez Tolentino - Last Filed: 08/23/18 13:13> Procedure Note Procedure: Internal Jugular Central Line Procedure Note INDICATION: Borderline hypotension concerning for developing sepsis PROCEDURE HYDRATE THICKENER OPERATOR: Andrez Tolentino M.D. PGY1 ATTENDING PHYSICIAN: Dr. Huerta In Attendance (Y/N) Y CONSENT: Consent was obtained from pt's daughter Else via telephone prior to the procedure. Indications, risks, and benefits were explained at length. PROCEDURE SUMMARY: A time out was performed. My hands were washed immediately prior to the procedure. I wore a surgical cap, mask with protective eyewear, full gown and sterile gloves throughout the procedure. The patient was placed in supine position. The upper right chest/neck region was prepped using chlorhexidine scrub and draped in sterile fashion using a sterile drape. The Internal Jugular vein was identified using the ultrasound. Anesthesia was achieved over the vein using 1% lidocaine. Using real-time out of plane guidance, the introducer needle was inserted into the Internal Jugular vein under direct ultrasound visualization. Venous blood was withdrawn. The syringe was removed and a guidewire was advanced into the introducer needle. The guidewire was visualized in the Internal Jugular Vein by ultrasound. A small incision was made at the skin surface with a scalpel and the introducer needle was exchanged for a dilator over the guidewire. After appropriate dilation was obtained, the dilator was exchanged over the wire for a triple lumen central venous catheter. The wire was removed and the catheter was sutured in place. A biopatch and a large tegaderm was placed over the catheter at the insertion site. The patient tolerated the procedure without any hemodynamic compromise. At time of procedure completion, all ports aspirated and flushed properly. Post-procedure chest x-ray is pending at this time. Estimated blood loss is <5cc. <Rogelio Huerta MD - Last Filed: 08/23/18 13:22> Procedure Note Procedure: I supervised and was present during the entire procedure. Rogelio Huerta MD
[2018-08-23] MEDS ORDERED: SODIUM CHLORIDE 0.9% 500 ML INFUS.BAG IV ONE (14:19)
[2018-08-23] MEDS ORDERED: NOREPINEPHRINE BITARTRATE 4 MG/4 ML ML IV ONE (14:19)
--- NOTE | 2018-08-23 14:26 | PN ---
Progress Note, Physician History of Present Illness: Pt seen and examined at bedside. She remains in the ICU. She has been hypotensive. - Current Medication List Current Medications: Active Medications Abacavir/Dolutegravir/Lamivudine (Triumeq (Non-Formulary)) 1 each PO DAILY [facility] Last Admin: 08/23/18 09:28 Dose: 1 each Acetaminophen (Tylenol Oral Solution -) 1,000 mg PO Q6H PRN PRN Reason: FEVER Last Admin: 08/22/18 06:25 Dose: 1,000 mg Acetaminophen (Ofirmev Injection -) 1,000 mg IVPB Q6H PRN PRN Reason: FEVER Last Admin: 08/22/18 19:50 Dose: 1,000 mg Albuterol/Ipratropium (Duoneb -) 1 amp NEB RQID [facility] Last Admin: 08/23/18 12:45 Dose: 1 amp Carvedilol (Coreg -) 12.5 mg PO BID [facility] Last Admin: 08/23/18 09:39 Dose: Not Given Chlorhexidine Gluconate (Peridex -) 15 ml MM BID [facility] Last Admin: 08/23/18 09:28 Dose: 15 ml Clopidogrel Bisulfate (Plavix -) 75 mg PO DAILY [facility] Last Admin: 08/23/18 09:28 Dose: 75 mg Heparin Sodium (Porcine) (Heparin -) 5,000 unit SQ TID [facility] Last Admin: 08/23/18 05:39 Dose: 5,000 unit Hydralazine HCl (Apresoline -) 50 mg NGT TID [facility] Last Admin: 08/23/18 05:38 Dose: Not Given IV Flush (Triple Lumen Flush) 4 ml IVPUSH PRN PRN PRN Reason: Protocol Nafcillin Sodium 2 gm/ (Dextrose) 100 mls @ 100 mls/hr IVPB Q4H-IV [facility]; Protocol Last Admin: 08/23/18 09:39 Dose: 100 mls/hr Fentanyl 500 mcg/ Dextrose 100 mls @ 5 mls/hr IVPB TITR [facility]; Protocol Last Titration: 08/22/18 19:57 Dose: 100 mcg/hr, 20 mls/hr Propofol (Diprivan -) 1,000,000 mcg in 100 mls @ 16.98 mls/hr IVPB TITR [facility]; Protocol Last Admin: 04/15/19 19:09 Dose: Not Given Meropenem 1 gm/ Dextrose 100 mls @ 200 mls/hr IVPB Q8H-IV [facility] Last Admin: 08/23/18 09:27 Dose: 200 mls/hr Midazolam HCl 100 mg/ Sodium (Chloride) 100 mls @ 1 mls/hr IVPB TITR [facility]; Protocol Last Titration: 08/23/18 02:50 Dose: 2 mg/hr, 2 mls/hr Sodium Chloride (Normal Saline -) 1,000 mls @ 100 mls/hr IV ASDIR [facility] Sodium Chloride (Normal Saline -) 500 mls @ 500 mls/hr IV ASDIR [facility] Stop: 08/23/18 14:27 Losartan Potassium (Cozaar -) 50 mg PO BID [facility] Last Admin: 08/23/18 09:39 Dose: Not Given Methylprednisolone Sodium Succinate (Solu-Medrol -) 40 mg IVPUSH DAILY [facility] Last Admin: 08/23/18 09:28 Dose: 40 mg Pantoprazole Sodium (Protonix Iv) 40 mg IVPUSH DAILY [facility] Last Admin: 08/23/18 09:29 Dose: 40 mg - Objective Vital Signs: Vital Signs Temperature 99 F 08/23/18 07:57 Pulse Rate 104 H 08/23/18 07:57 Respiratory Rate 26 H 08/23/18 11:30 Blood Pressure 91/59 L 08/23/18 07:57 O2 Sat by Pulse Oximetry (%) 98 08/22/18 21:00 Constitutional: Yes: Calm Eyes: Yes: Conjunctiva Clear HENT: Yes: Atraumatic Cardiovascular: Yes: S1, S2 Respiratory: Yes: Mechanically Ventilated Gastrointestinal: Yes: Soft Genitourinary: Yes: Incontinence Musculoskeletal: Yes: Muscle Weakness Edema: No Neurological: Yes: Lethargy Labs: CBC, BMP 08/23/18 05:30 08/23/18 05:30 INR, PTT INR 1.34 (0.83-1.09) H 08/22/18 05:30 - ....Imaging Chest X-ray: Report Reviewed Problem List - Problems (1) Acute renal failure Code(s): N17.9 - ACUTE KIDNEY FAILURE, UNSPECIFIED Qualifiers: Acute renal failure type: unspecified Qualified Code(s): N17.9 - Acute kidney failure, unspecified (2) Altered mental status, unspecified Code(s): R41.82 - ALTERED MENTAL STATUS, UNSPECIFIED Qualifiers: Altered mental status type: somnolence Qualified Code(s): R40.0 - Somnolence (3) CHF (congestive heart failure) Code(s): I50.9 - HEART FAILURE, UNSPECIFIED Qualifiers: Heart failure type: diastolic Heart failure chronicity: chronic Qualified Code(s): I50.32 - Chronic diastolic (congestive) heart failure (4) COPD with acute exacerbation Code(s): J44.1 - CHRONIC OBSTRUCTIVE PULMONARY DISEASE W (ACUTE) EXACERBATION (5) Hyperkalemia Code(s): E87.5 - HYPERKALEMIA Assessment/Plan Current Medications Generic Name Dose Route Start Last Admin Trade Name Freq PRN Reason Stop Dose Admin Abacavir/Dolutegravir/Lamivudine 1 each 08/10/18 14:00 08/23/18 09:28 Triumeq (Non-Formulary) PO 1 each DAILY [facility] Administration Acetaminophen 1,000 mg 08/16/18 16:11 08/22/18 06:25 Tylenol Oral Solution - PO 1,000 mg Q6H PRN Administration FEVER Acetaminophen 1,000 mg 08/22/18 02:41 08/22/18 19:50 Ofirmev Injection - IVPB 1,000 mg Q6H PRN Administration FEVER Albuterol/Ipratropium 1 amp 08/17/18 16:00 08/23/18 12:45 Duoneb - NEB 1 amp RQID [facility] Administration Carvedilol 12.5 mg 08/10/18 10:00 08/23/18 09:39 Coreg - PO Not Given BID [facility] Chlorhexidine Gluconate 15 ml 08/17/18 22:00 08/23/18 09:28 Peridex - MM 15 ml BID [facility] Administration Clopidogrel Bisulfate 75 mg 08/10/18 10:00 08/23/18 09:28 Plavix - PO 75 mg DAILY [facility] Administration Heparin Sodium (Porcine) 5,000 unit 08/17/18 14:00 08/23/18 05:39 Heparin - SQ 5,000 unit TID [facility] Administration Hydralazine HCl 50 mg 08/11/18 14:08 08/23/18 05:38 Apresoline - NGT Not Given TID [facility] IV Flush 4 ml 08/23/18 11:37 Triple Lumen Flush IVPUSH PRN PRN Protocol Nafcillin Sodium 2 gm/ 100 mls @ 100 mls/hr 08/19/18 20:00 08/23/18 09:39 Dextrose IVPB 100 mls/hr Q4H-IV [facility] Administration Protocol Fentanyl 500 mcg/ Dextrose 100 mls @ 5 mls/hr 08/20/18 10:30 08/22/18 19:57 IVPB 100 mcg/hr TITR [facility] 20 mls/hr Titration Protocol 25 MCG/HR Propofol 1,000,000 mcg in 100 mls @ 16.98 mls/hr 08/20/18 10:39 08/22/18 19: 09 Diprivan - IVPB Not Given TITR [facility] Protocol 50 MCG/KG/MIN Meropenem 1 gm/ Dextrose 100 mls @ 200 mls/hr 08/21/18 10:00 08/23/18 09:27 IVPB 200 mls/hr Q8H-IV [facility] Administration Midazolam HCl 100 mg/ Sodium 100 mls @ 1 mls/hr 08/21/18 10:00 08/23/18 02:50 Chloride IVPB 2 mg/hr TITR [facility] 2 mls/hr Titration Protocol 1 MG/HR Sodium Chloride 1,000 mls @ 100 mls/hr 08/23/18 08:15 Normal Saline - IV ASDIR [facility] Sodium Chloride 500 mls @ 500 mls/hr 08/23/18 13:28 Normal Saline - IV 08/23/18 14:27 ASDIR STA Losartan Potassium 50 mg 08/11/18 13:00 08/23/18 09:39 Cozaar - PO Not Given BID [facility] Methylprednisolone Sodium Succinate 40 mg 08/23/18 10:00 08/23/18 09:28 Solu-Medrol - IVPUSH 40 mg DAILY [facility] Administration Pantoprazole Sodium 40 mg 08/11/18 13:15 08/23/18 09:29 Protonix Iv IVPUSH 40 mg DAILY [facility] Administration Impression 1. KRISTIAN 2. Hyperkalemia 3. HIV 4. hyponatremia 5. altered mental status 6. pulm HTN 7. htn 8. pvd 9. resp acidosis 10. resp failure requiring intubation Plan - renal function worse - gave fluid boluses and started fluids - check cvp - discussed with ICU - place han and monitor output - daily cxr - hold bp meds
[2018-08-23] MEDS: FENTANYL INJECTION 500 MCG in DEXTROSE 5%-WATER - 90 ML IVPB SCH (15:00)
[2018-08-23] MEDS ORDERED: LACTATED RINGERS SOLUTION 1000 ML INFUS.BAG IV ONE (16:07)
[2018-08-23] MEDS ORDERED: LACTATED RINGERS SOLUTION 2,000 ML IV ONE (16:15)
[2018-08-23] MEDS: SODIUM CHLORIDE 1,000 ML IV SCH ×2 (17:34→23:38)
[2018-08-23 18:11] LABS: EPI CELLS 0.5 /HPF (0-5/HPF); PH,URINE 5.5 (5.0-8.0); URINE APPEARANCE TURBID; URINE BILIRUBIN NEGATIVE (NEGATIVE); URINE CASTS 7 /lpf (0-8); URINE COLOR YELLOW; URINE GLUCOSE (UA) NEGATIVE (NEGATIVE); URINE KETONE NEGATIVE (NEGATIVE); URINE LEUK ESTERASE NEGATIVE (NEGATIVE); URINE NITRITE NEGATIVE (NEGATIVE); URINE PROTEIN 2+ (NEGATIVE); URINE RBC 49 /hpf (0-4); URINE UROBILINOGEN 0.2 mg/dL (0.2-1.0)
[2018-08-23] MEDS: MIDAZOLAM 100 MG in SODIUM CHLORIDE 100 ML IVPB SCH (18:34)
[2018-08-23] MEDS: PROPOFOL 1,000,000 MCG/100 ML VIAL IVPB SCH (18:35)
--- NOTE | 2018-08-23 18:51 | PN ---
Progress Note, Physician History of Present Illness: intubated - Current Medication List Current Medications: Active Medications Abacavir/Dolutegravir/Lamivudine (Triumeq (Non-Formulary)) 1 each PO DAILY [facility] Last Admin: 08/23/18 09:28 Dose: 1 each Acetaminophen (Tylenol Oral Solution -) 1,000 mg PO Q6H PRN PRN Reason: FEVER Last Admin: 08/22/18 06:25 Dose: 1,000 mg Acetaminophen (Ofirmev Injection -) 1,000 mg IVPB Q6H PRN PRN Reason: FEVER Last Admin: 08/22/18 19:50 Dose: 1,000 mg Albuterol/Ipratropium (Duoneb -) 1 amp NEB RQID [facility] Last Admin: 08/23/18 16:00 Dose: 1 amp Carvedilol (Coreg -) 12.5 mg PO BID [facility] Last Admin: 08/23/18 09:39 Dose: Not Given Chlorhexidine Gluconate (Peridex -) 15 ml MM BID [facility] Last Admin: 08/23/18 09:28 Dose: 15 ml Clopidogrel Bisulfate (Plavix -) 75 mg PO DAILY [facility] Last Admin: 08/23/18 09:28 Dose: 75 mg Heparin Sodium (Porcine) (Heparin -) 5,000 unit SQ TID [facility] Last Admin: 08/23/18 15:00 Dose: 5,000 unit Hydralazine HCl (Apresoline -) 50 mg NGT TID [facility] Last Admin: 08/23/18 16:33 Dose: Not Given IV Flush (Triple Lumen Flush) 4 ml IVPUSH PRN PRN PRN Reason: Protocol Nafcillin Sodium 2 gm/ (Dextrose) 100 mls @ 100 mls/hr IVPB Q4H-IV [facility]; Protocol Last Admin: 08/23/18 18:32 Dose: 100 mls/hr Fentanyl 500 mcg/ Dextrose 100 mls @ 5 mls/hr IVPB TITR [facility]; Protocol Last Admin: 08/23/18 15:00 Dose: 100 mcg/hr, 20 mls/hr Propofol (Diprivan -) 1,000,000 mcg in 100 mls @ 16.98 mls/hr IVPB TITR [facility]; Protocol Last Admin: 08/23/18 18:35 Dose: Not Given Meropenem 1 gm/ Dextrose 100 mls @ 200 mls/hr IVPB Q8H-IV [facility] Last Admin: 08/23/18 18:32 Dose: 200 mls/hr Midazolam HCl 100 mg/ Sodium (Chloride) 100 mls @ 1 mls/hr IVPB TITR [facility]; Protocol Last Admin: 08/23/18 18:34 Dose: 2 mg/hr, 2 mls/hr Sodium Chloride (Normal Saline -) 1,000 mls @ 100 mls/hr IV ASDIR [facility] Last Admin: 08/23/18 17:34 Dose: Not Given Methylprednisolone Sodium Succinate (Solu-Medrol -) 40 mg IVPUSH DAILY [facility] Last Admin: 08/23/18 09:28 Dose: 40 mg Pantoprazole Sodium (Protonix Iv) 40 mg IVPUSH DAILY [facility] Last Admin: 08/23/18 09:29 Dose: 40 mg - Objective Vital Signs: Vital Signs Temperature 99 F 08/23/18 07:57 Pulse Rate 104 H 08/23/18 07:57 Respiratory Rate 24 H 08/23/18 17:46 Blood Pressure 91/59 L 08/23/18 07:57 O2 Sat by Pulse Oximetry (%) 98 08/22/18 21:00 Constitutional: Yes: Calm HENT: Yes: Atraumatic Neck: Yes: Supple Cardiovascular: Yes: Regular Rate and Rhythm Respiratory: Yes: Rhonchi Gastrointestinal: Yes: Normal Bowel Sounds Extremities: Yes: WNL Edema: No Peripheral Pulses WNL: Yes Neurological: Yes: Other (intubated and sedated) Labs: CBC, BMP 08/23/18 05:30 08/23/18 05:30 INR, PTT INR 1.34 (0.83-1.09) H 08/22/18 05:30 Problem List - Problems (1) Acute renal failure Assessment/Plan: monitor Code(s): N17.9 - ACUTE KIDNEY FAILURE, UNSPECIFIED Qualifiers: Acute renal failure type: unspecified Qualified Code(s): N17.9 - Acute kidney failure, unspecified (2) Altered mental status, unspecified Code(s): R41.82 - ALTERED MENTAL STATUS, UNSPECIFIED Qualifiers: Altered mental status type: somnolence Qualified Code(s): R40.0 - Somnolence (3) COPD with acute exacerbation Assessment/Plan: steroids duo nebs INTUBATED Code(s): J44.1 - CHRONIC OBSTRUCTIVE PULMONARY DISEASE W (ACUTE) EXACERBATION (4) Elevated troponin I level Code(s): R74.8 - ABNORMAL LEVELS OF OTHER SERUM ENZYMES (5) Hyperkalemia Code(s): E87.5 - HYPERKALEMIA (6) COPD (chronic obstructive pulmonary disease) Code(s): J44.9 - CHRONIC OBSTRUCTIVE PULMONARY DISEASE, UNSPECIFIED Qualifiers: (7) HIV Assessment/Plan: continue home meds Code(s): Z21 - ASYMPTOMATIC HUMAN IMMUNODEFICIENCY VIRUS INFECTION STATUS (8) HTN (hypertension) Assessment/Plan: monitor on meds Code(s): I10 - ESSENTIAL (PRIMARY) HYPERTENSION Qualifiers: Hypertension type: essential hypertension Qualified Code(s): I10 - Essential (primary) hypertension (9) Hyperlipidemia Code(s): E78.5 - HYPERLIPIDEMIA, UNSPECIFIED Qualifiers: Hyperlipidemia type: pure hypercholesterolemia Qualified Code(s): E78.00 - Pure hypercholesterolemia, unspecified; E78.0 - Pure hypercholesterolemia (10) PVD (peripheral vascular disease) Code(s): I73.9 - PERIPHERAL VASCULAR DISEASE, UNSPECIFIED (11) CHF (congestive heart failure) Code(s): I50.9 - HEART FAILURE, UNSPECIFIED Qualifiers: Heart failure type: diastolic Heart failure chronicity: chronic Qualified Code(s): I50.32 - Chronic diastolic (congestive) heart failure (12) Sepsis Assessment/Plan: on abx monitor wbc Code(s): A41.9 - SEPSIS, UNSPECIFIED ORGANISM
[2018-08-23 19:38] LABS: URINE WBC 0 /hpf (0-5)
[2018-08-23 19:39] LABS: URINE BACTERIA MODERATE /hpf (NEGATIVE)
[2018-08-23 21:00] LABS: URINE UREA NITROGEN 337 mg/dL (350-1000)
[2018-08-23] MEDS: ACETAMINOPHEN 650 MG/20.3 ML ORAL SOLUTION (CUPS) PO PRN (23:31)
[2018-08-24] MEDS ORDERED: PT OWN MED DRAWER 7, Y5N ONE ×8 (03:01→22:38)
[2018-08-24] MEDS: MEROPENEM 1 GM in DEXTROSE 5%-WATER 100 ML IVPB SCH ×2 (03:02→09:58)
[2018-08-24] MEDS: NAFCILLIN - 2 GM in DEXTROSE 5%-WATER - 100 ML IVPB SCH ×6 (03:02→21:23)
[2018-08-24] MEDS: FENTANYL INJECTION 500 MCG in DEXTROSE 5%-WATER - 90 ML IVPB SCH ×2 (03:11→15:00)
[2018-08-24] MEDS: ACETAMINOPHEN 1000 MG/100 ML VIAL (NON FORMULARY) IVPB PRN ×2 (03:30→09:58)
[2018-08-24] MEDS: BANATROL PLUS POWDER PACKET PO SCH ×3 (05:04→22:07)
[2018-08-24] MEDS: hydrALAZINE HCL 50 MG TABLET (FP) NGT SCH (05:04)
[2018-08-24 05:56] LABS: BASO % 0.4 % (0-2.0); HEMATOCRIT 26.4 % (32.4-45.2); HEMOGLOBIN 8.6 GM/dL (10.7-15.3); MCH 30.1 pg (25.7-33.7); MCHC 32.4 g/dl (32.0-36.0); MEAN PLT VOLUME 8.7 fl (7.5-11.1); MONO % 6.3 % (3.8-10.2); NEUT % 90.3 % (42.8-82.8); PLATELET COUNT 278 K/MM3 (134-434); RBC 2.84 M/mm3 (3.60-5.2); RDW 15.8 % (11.6-15.6); WHITE BLOOD COUNT 24.3 K/mm3 (4.0-10.0)
[2018-08-24] MEDS: SODIUM CHLORIDE 1,000 ML IV SCH ×2 (06:13→09:56)
[2018-08-24] MEDS: HEPARIN NA (PORCINE) 5,000 UNITS/ML 1ML VIAL SQ SCH ×3 (06:14→21:23)
[2018-08-24 06:32] LABS: ANION GAP 7 MMOL/L (8-16); BLOOD UREA NITROGEN 82 mg/dL (7-18); CALCIUM 8.6 mg/dL (8.5-10.1); CHLORIDE 96 mmol/L (98-107); CO2 30 mmol/L (21-32); CREATININE 2.8 mg/dL (0.55-1.3); GLUCOSE,RANDOM 129 mg/dL (74-106); MAGNESIUM 2.1 mg/dL (1.8-2.4); PHOSPHOROUS 6.1 mg/dL (2.5-4.9); POTASSIUM 3.9 mmol/L (3.5-5.1); SODIUM 133 mmol/L (136-145)
[2018-08-24] MEDS: NOREPINEPHRINE BITARTRATE 8,000 MCG in DEXTROSE 5%-WATER - 492 ML IV SCH (06:33)
--- NOTE | 2018-08-24 07:16 | PN ---
Physical Exam: SUBJECTIVE: Patient seen and examined at bedside. Episodes of hypotension overnight requiring pressors to maintain MAP. Patient also requiring increased FiO2 to maintain saturations. Patient also continues to be febrile w/ tmax 103 refractory to IV acetaminophen. OBJECTIVE: Vital Signs Period Temp Pulse Resp BP Sys/Buck Pulse Ox Last 24 Hr 99 F-102.4 F 104-125 18-27 73-96/50-62 96 GENERAL: Patient intubated and sedated. Continues to overbreathe the vent. HEAD: Normal with no signs of trauma. EYES: PERRL, Sluggish reaction to light. LUNGS: Breath sounds equal, Coarse crackles heard b/l HEART: Regular rate and rhythm, S1, S2 without murmur, rub or gallop. ABDOMEN: Soft, nontender, nondistended, normoactive bowel sounds, no guarding, no rebound, no hepatosplenomegaly, no masses. EXTREMITIES: 2+ pulses, warm, well-perfused, no edema. NEUROLOGICAL: unable to obtain as pt sedated. SKIN: Warm, dry, normal turgor, no rashes or lesions noted Laboratory Results - last 24 hr 08/17/18 08/23/18 08/23/18 17:52 05:30 13:07 WBC RBC Hgb Hct MCV MCH MCHC RDW Plt Count MPV Absolute Neuts (auto) Neutrophils % Neutrophils % (Manual) 86.0 H Band Neutrophils % 2.0 Lymphocytes % Lymphocytes % (Manual) 1.0 L Monocytes % Monocytes % (Manual) 9 Eosinophils % Eosinophils % (Manual) 0.0 Basophils % Basophils % (Manual) 0.0 Myelocytes % (Man) 0 Promyelocytes % (Man) 0 Blast Cells % (Manual) 0 Nucleated RBC % Metamyelocytes 0 Hypochromia 0 Toxic Granulation 1+ Platelet Estimate Normal Platelet Comment Present Polychromasia 0 Poikilocytosis 1+ Anisocytosis 1+ Microcytosis 0 Macrocytosis 1+ Spherocytes 1+ Target Cells 1+ Tear Drop Cells 1+ Stomatocytes 1+ Acanthocytes (Spur) 1+ Sodium Potassium Chloride Carbon Dioxide Anion Gap BUN Creatinine Creat Clearance w eGFR Random Glucose Lactic Acid 0.8 Calcium Phosphorus Magnesium Urine Color Urine Appearance Urine pH Ur Specific [place] Urine Protein Urine Glucose (UA) Urine Ketones Urine Blood Urine Nitrite Urine Bilirubin Urine Urobilinogen Ur Leukocyte Esterase Urine WBC (Auto) Urine RBC (Auto) Urine Casts (Auto) U Epithel Cells (Auto) Urine Bacteria (Auto) Ur Random Sodium Ur Random Urea Nitrogn Stool O & P Wet [place] O & P Permanent Slide Final report 08/23/18 08/23/18 08/24/18 16:30 16:30 05:30 WBC 24.3 H RBC 2.84 L Hgb 8.6 L Hct 26.4 L MCV 93.0 MCH 30.1 MCHC 32.4 RDW 15.8 H Plt Count 278 MPV 8.7 Absolute Neuts (auto) 21.9 H Neutrophils % 90.3 H Neutrophils % (Manual) Band Neutrophils % Lymphocytes % 3.0 L D Lymphocytes % (Manual) Monocytes % 6.3 Monocytes % (Manual) Eosinophils % 0.0 Eosinophils % (Manual) Basophils % 0.4 Basophils % (Manual) Myelocytes % (Man) Promyelocytes % (Man) Blast Cells % (Manual) Nucleated RBC % 0 Metamyelocytes Hypochromia Toxic Granulation Platelet Estimate Platelet Comment Polychromasia Poikilocytosis Anisocytosis Microcytosis Macrocytosis Spherocytes Target Cells Tear Drop Cells Stomatocytes Acanthocytes (Spur) Sodium Potassium Chloride Carbon Dioxide Anion Gap BUN Creatinine Creat Clearance w eGFR Random Glucose Lactic Acid Calcium Phosphorus Magnesium Urine Color Yellow Urine Appearance Turbid Urine pH 5.5 Ur Specific [place] 1.019 Urine Protein 2+ H Urine Glucose (UA) Negative Urine Ketones Negative Urine Blood 1+ H Urine Nitrite Negative Urine Bilirubin Negative Urine Urobilinogen 0.2 Ur Leukocyte Esterase Negative Urine WBC (Auto) 0 Urine RBC (Auto) 49 Urine Casts (Auto) 7 U Epithel Cells (Auto) 0.5 Urine Bacteria (Auto) Moderate Ur Random Sodium 39 L Ur Random Urea Nitrogn 337 L Stool O & P Wet [place] & P Permanent Slide 08/24/18 05:30 WBC RBC Hgb Hct MCV MCH MCHC RDW Plt Count MPV Absolute Neuts (auto) Neutrophils % Neutrophils % (Manual) Band Neutrophils % Lymphocytes % Lymphocytes % (Manual) Monocytes % Monocytes % (Manual) Eosinophils % Eosinophils % (Manual) Basophils % Basophils % (Manual) Myelocytes % (Man) Promyelocytes % (Man) Blast Cells % (Manual) Nucleated RBC % Metamyelocytes Hypochromia Toxic Granulation Platelet Estimate Platelet Comment Polychromasia Poikilocytosis Anisocytosis Microcytosis Macrocytosis Spherocytes Target Cells Tear Drop Cells Stomatocytes Acanthocytes (Spur) Sodium 133 L Potassium 3.9 Chloride 96 L Carbon Dioxide 30 Anion Gap 7 L BUN 82 H Creatinine 2.8 H Creat Clearance w eGFR 16.86 Random Glucose 129 H Lactic Acid Calcium 8.6 Phosphorus 6.1 H Magnesium 2.1 Urine Color Urine Appearance Urine pH Ur Specific [place] Urine Protein Urine Glucose (UA) Urine Ketones Urine Blood Urine Nitrite Urine Bilirubin Urine Urobilinogen Ur Leukocyte Esterase Urine WBC (Auto) Urine RBC (Auto) Urine Casts (Auto) U Epithel Cells (Auto) Urine Bacteria (Auto) Ur Random Sodium Ur Random Urea Nitrogn Stool O & P Wet [place] & P Permanent Slide Active Medications Generic Name Dose Route Start Last Admin Trade Name Freq PRN Reason Stop Dose Admin Abacavir/Dolutegravir/Lamivudine 1 each 08/10/18 14:00 08/23/18 09:28 Triumeq (Non-Formulary) PO 1 each DAILY [facility] Administration Acetaminophen 1,000 mg 08/16/18 16:11 08/23/18 23:31 Tylenol Oral Solution - PO 1,000 mg Q6H PRN Administration FEVER Acetaminophen 1,000 mg 08/22/18 02:41 08/24/18 03:30 Ofirmev Injection - IVPB 1,000 mg Q6H PRN Administration FEVER Albuterol/Ipratropium 1 amp 08/17/18 16:00 08/23/18 21:15 Duoneb - NEB 1 amp RQID [facility] Administration Carvedilol 12.5 mg 08/10/18 10:00 08/23/18 21:42 Coreg - PO Not Given BID [facility] Chlorhexidine Gluconate 15 ml 08/17/18 22:00 08/23/18 21:59 Peridex - MM 15 ml BID [facility] Administration Clopidogrel Bisulfate 75 mg 08/10/18 10:00 08/23/18 09:28 Plavix - PO 75 mg DAILY [facility] Administration Heparin Sodium (Porcine) 5,000 unit 08/17/18 14:00 08/24/18 06:14 Heparin - SQ 5,000 unit TID [facility] Administration Hydralazine HCl 50 mg 08/11/18 14:08 08/24/18 05:04 Apresoline - NGT Not Given TID [facility] IV Flush 4 ml 08/23/18 11:37 Triple Lumen Flush IVPUSH PRN PRN Protocol Nafcillin Sodium 2 gm/ 100 mls @ 100 mls/hr 08/19/18 20:00 08/24/18 06:14 Dextrose IVPB 100 mls/hr Q4H-IV [facility] Administration Protocol Fentanyl 500 mcg/ Dextrose 100 mls @ 5 mls/hr 08/20/18 10:30 08/24/18 06:34 IVPB 70 mcg/hr TITR [facility] 14 mls/hr Titration Protocol 25 MCG/HR Propofol 1,000,000 mcg in 100 mls @ 16.98 mls/hr 08/20/18 10:39 08/24/18 06: 34 Diprivan - IVPB 10 mcg/kg/min TITR [facility] 3.396 mls/hr Titration Protocol 50 MCG/KG/MIN Meropenem 1 gm/ Dextrose 100 mls @ 200 mls/hr 08/21/18 10:00 08/24/18 03:02 IVPB 200 mls/hr Q8H-IV [facility] Administration Midazolam HCl 100 mg/ Sodium 100 mls @ 1 mls/hr 08/21/18 10:00 08/23/18 18:34 Chloride IVPB 2 mg/hr TITR [facility] 2 mls/hr Administration Protocol 1 MG/HR Sodium Chloride 1,000 mls @ 100 mls/hr 08/23/18 08:15 08/24/18 06:13 Normal Saline - IV 100 mls/hr ASDIR [facility] Administration Norepinephrine Bitartrate 8, 500 mls @ 18.75 mls/hr 08/24/18 06:15 08/24/18 06:33 000 mcg/ Dextrose IV 10 mcg/min TITR [facility] 37.5 mls/hr Administration Protocol 5 MCG/MIN Methylprednisolone Sodium Succinate 40 mg 08/23/18 10:00 08/23/18 09:28 Solu-Medrol - IVPUSH 40 mg DAILY [facility] Administration Pantoprazole Sodium 40 mg 08/11/18 13:15 08/23/18 09:29 Protonix Iv IVPUSH 40 mg DAILY [facility] Administration ASSESSMENT/PLAN: 67 year old female with HTN, CAD s/p CABG in 2009, PVD with B/L LE stents, HIV, HEP C, COPD and CHF. Admitted to the ICU for Acute hypoxic hypercapnic respiratory failure and dehydration. Neuro: - Currently sedated with Propofol (@10) , Fentanyl (@50) , and Versed (@2) drips. No attempt at sedation wean today given increased respiratory effort. Endocrine: - Consult: Dr. Leach - Cr continues to trend upward after periods of hypotension overnight. Likely 2/ 2 ATN 2/2 hypotension 2/2 septic shock 2/2 PNA - Torres to be placed for strict I/Os. Ordered UA and urine electrolytes for further evaluation. - Continue to trend electrolytes - BGL trending upward. Suspect secondary to steroid usage. Will consider insulin sliding scale if trends above 250. Cardiovascular: - Consult: Dr. Fitzgerald - Pt hypotensive overnight. Started on norepi GTT, currently @ 15. Will maintain MAP > 65 - LV Diastolic/Systolic Dysfunction -c/w home Clopidogrel -holding home Carvedilol, Hydralazine, Losartan while on pressors -holding home Ranolazine and Spironolactone while on pressors - will bolus 1L NS and start NS @ 100 for volume support and sepsis treatment. Pulm / Resp: - Acute on Chronic Hypoxic and Hypercapneic Respiratory Failure likely secondary to pneumonia. - Continue albuterol PRN. Standing QID nebs changed from albuterol to duonebs - Solu-medrol 40mg daily. - Continues to require increased ventilatory support. FiO2 currently 70% w/ PEEP 9 - CXR continues to worsen daily - SPO2 goal 90% - ABG today w/ pH 7.15 and CO2 74.2. Vent rate increased to 25. - Pt BP too unstable at this time to tolerate bedside or OR trach Gastrointestinal: - Mild diarrhea noted in rectal tube. Possibly secondary to tube feeds. Infectious Disease: - Consult Dr. Khna - h/o HIV: continue HAART Therapy per ID - Patient continues to spike fevers w/ tmax 103 refractory to antipyretics. Cannot give caldolor 2/2 KRISTIAN. Will begin exogenous cooling with ice and q6h iv acetaminophen. - Leukocytosis trended steady overnight with fever and hypotension. Likely secondary to worsening pneumonia versus other infectious process. - Lactic acid normal. RPT cultures pending. - Continue Merrem (Day 4),Nafcillin (Day 6), and Ceftazidine (Day 3) for antibiotic coverage. FEN: - Electrolytes within normal limits today. -Tube Feed per dietary Prophylaxis: -DVT: Heparin SQ -GI: Pantoprazole Family Discussion: - At family meeting yesterday, pt's daughters decided to make pt DNR. - Family wishes to pursue trach at this time. - Daughter updated at bedside and informed that patient cannot tolerate trach in current condition. Verbalized understanding. Daughter states she will call her sister to discuss current states and next steps. Dispo: Continue to monitor the intubated pt in the ICU. Consider trach placement. Visit type - Emergency Visit Emergency Visit: Yes ED Registration Date: 08/08/18 Care time: The patient presented to the Emergency Department on the above date and was hospitalized for further evaluation of their emergent condition. - New Patient This patient is new to me today: No - Critical Care Critical Care patient: Yes Total Critical Care Time (in minutes): 60 Critical Care Statement: The care of this patient involved high complexity decision making to prevent further life threatening deterioration of the patient 's condition and/or to evaluate & treat vital organ system(s) failure or risk of failure. - Discharge Referral Referred to [facility] No
[2018-08-24] MEDS: ALBUTEROL SO4 2.5/IPRATROPIUM 0.5 INH SOL 3 ML VIAL.NEB. NEB SCH ×4 (08:39→21:00)
[2018-08-24] MEDS ORDERED: DEXTROSE 5%-WATER 100 ML IVPB ONE (09:49)
[2018-08-24] MEDS ORDERED: MEROPENEM 1 GM VIAL (RESTRICTED TO ID) IVPB ONE (09:49)
[2018-08-24] MEDS: PANTOPRAZOLE SODIUM 40 MG VIAL IVPUSH SCH (09:57)
[2018-08-24] MEDS: methylPREDNISolone NA SUCC 40 MG/1 ML VIAL IVPUSH SCH (09:58)
[2018-08-24] MEDS: CLOPIDOGREL BISULFATE 75 MG TABLET (FP) PO SCH (09:58)
[2018-08-24] MEDS: MIDAZOLAM 100 MG in SODIUM CHLORIDE 100 ML IVPB SCH ×2 (10:00→23:32)
[2018-08-24] MEDS: CHLORHEXIDINE GLUCONATE 0.12% 15ML CUP MM SCH ×2 (10:00→22:07)
[2018-08-24] MEDS: ABACAVIR/DOLUTEGRAVIR/LAMIVUDI (TRIUMEQ) TABLET -NF PO SCH (10:01)
[2018-08-24] MEDS: CARVEDILOL 12.5 MG TABLET (FP) PO SCH (10:02)
--- NOTE | 2018-08-24 10:42 | PN ---
Teaching Attending Note Name of Resident: Pino Saucedo ATTENDING PHYSICIAN STATEMENT I saw and evaluated the patient. I reviewed the resident's note and discussed the case with the resident. I agree with the resident's findings and plan as documented. SUBJECTIVE: Pt seen and examined in the ICU. Remains intubated, sedated on levophed gtt. Persistently febrile. Vented on volume assist control with 70% FiO2. OBJECTIVE: Vital Signs Period Temp Pulse Resp BP Sys/Buck Pulse Ox Last 24 Hr 102.4 F-102.9 F 106-125 18-27 73-96/50-62 95-96 Intake & Output 08/21/18 08/22/18 08/23/18 08/24/18 23:59 23:59 23:59 23:59 Intake Total 3756.6 1470.8 5475.4 2600 Output Total 5048 833 2715 100 Balance 2456.6 1370.8 4175.4 2500 Weight 56.6 kg 59.8 kg 59.5 kg Gen: intubated, sedated, tachypneic Heart: tachycardic, regular Lung: scattered rhonchi Abd: soft, nontender Ext: + edema CBC, BMP 08/24/18 05:30 08/24/18 05:30 Active Medications Abacavir/Dolutegravir/Lamivudine (Triumeq (Non-Formulary)) 1 each PO DAILY [facility] Last Admin: 08/24/18 10:01 Dose: 1 each Acetaminophen (Tylenol Oral Solution -) 1,000 mg PO Q6H PRN PRN Reason: FEVER Last Admin: 08/23/18 23:31 Dose: 1,000 mg Albuterol/Ipratropium (Duoneb -) 1 amp NEB RQID [facility] Last Admin: 08/24/18 08:39 Dose: 1 amp Carvedilol (Coreg -) 12.5 mg PO BID [facility] Last Admin: 08/24/18 10:02 Dose: Not Given Chlorhexidine Gluconate (Peridex -) 15 ml MM BID [facility] Last Admin: 08/24/18 10:00 Dose: Not Given Clopidogrel Bisulfate (Plavix -) 75 mg PO DAILY [facility] Last Admin: 08/24/18 09:58 Dose: 75 mg Heparin Sodium (Porcine) (Heparin -) 5,000 unit SQ TID [facility] Last Admin: 08/24/18 06:14 Dose: 5,000 unit IV Flush (Triple Lumen Flush) 4 ml IVPUSH PRN PRN PRN Reason: Protocol Nafcillin Sodium 2 gm/ (Dextrose) 100 mls @ 100 mls/hr IVPB Q4H-IV [facility]; Protocol Last Admin: 08/24/18 06:14 Dose: 100 mls/hr Fentanyl 500 mcg/ Dextrose 100 mls @ 5 mls/hr IVPB TITR [facility]; Protocol Last Titration: 08/24/18 09:00 Dose: 50 mcg/hr, 10 mls/hr Propofol (Diprivan -) 1,000,000 mcg in 100 mls @ 16.98 mls/hr IVPB TITR [facility]; Protocol Last Titration: 08/24/18 06:34 Dose: 10 mcg/kg/min, 3.396 mls/hr Meropenem 1 gm/ Dextrose 100 mls @ 200 mls/hr IVPB Q8H-IV [facility] Last Admin: 08/24/18 09:58 Dose: 200 mls/hr Midazolam HCl 100 mg/ Sodium (Chloride) 100 mls @ 1 mls/hr IVPB TITR [facility]; Protocol Last Admin: 08/24/18 10:00 Dose: Not Given Sodium Chloride (Normal Saline -) 1,000 mls @ 100 mls/hr IV ASDIR [facility] Last Admin: 08/24/18 09:56 Dose: 100 mls/hr Norepinephrine Bitartrate 8, (000 mcg/ Dextrose) 500 mls @ 18.75 mls/hr IV TITR [facility]; Protocol Last Titration: 08/24/18 09:55 Dose: 15 mcg/min, 56.25 mls/hr Methylprednisolone Sodium Succinate (Solu-Medrol -) 40 mg IVPUSH DAILY [facility] Last Admin: 08/24/18 09:58 Dose: 40 mg Pantoprazole Sodium (Protonix Iv) 40 mg IVPUSH DAILY [facility] Last Admin: 08/24/18 09:57 Dose: 40 mg ASSESSMENT AND PLAN: Acute on Chronic Hypoxic and Hypercapneic Respiratory Failure Acute COPD Exacerbation Pneumonia Septic Shock Acute Kidney Injury Metabolic and Respiratory Acidosis Pulmonary HTN LV Diastolic Dysfunction CAD s/p CABG +Troponins likely Demand Ischemia PAD HIV Hep C HTN Hypercholesterolemia - continue antibiotics - f/u pending cultures - IVF to keep CVP 8-12 - titrate pressors to maintain MAP >65 - monitor urine output, creatinine - medrol taper - inhaled bronchodilators - taper FiO2, PEEP to keep SpO2 >90% - sedate for vent synchrony - low tidal ventilation <6cc/kg/IBW, keep Plat <30 - not a candidate for weaning at this time given oxygen requirements - enteral feeds - DVT/GI prophylaxis - continue ICU monitoring - pallative care eval, will likely need tracheostomy for prolonged intubation - continue discussions regarding goals of care, pt now DNR critical care time spent in reviewing chart, evaluating patient and formulating plan 35 min
[2018-08-24 10:43] LABS: ARTERIAL BLD GAS O2 SATURATION 94.6 % (95-98); ARTERIAL BLOOD GAS BASE EXCESS -4.2 meq/l (-2-2); ARTERIAL BLOOD GAS PO2 84.9 mmHg (80-105)
[2018-08-24 10:54] LABS: ALLENS TEST POSITIVE; ARTERIAL BLOOD GAS PCO2 74.2 mmHg (35-45); ARTERIAL BLOOD GAS pH 7.15 (7.35-7.45)
[2018-08-24 11:02] LABS: ANISOCYTOSIS 1+; MACROCYTOSIS 0; PLATELET ESTIMATE NORMAL; TARGET CELLS 1+; TEAR DROP CELLS 1+
[2018-08-24] MEDS ORDERED: SODIUM CHLORIDE 1,000 ML IV STA (11:13)
[2018-08-24] MEDS ORDERED: fentaNYL CITRATE 250 MCG/5 ML VIAL ONE (11:38)
--- NOTE | 2018-08-24 13:17 | PN ---
Progress Note, Physician History of Present Illness: Pt seen and examined at bedside. She remains in the ICU. She remains intubated. Her renal function is worsening. She is lethargic. - Current Medication List Current Medications: Active Medications Abacavir/Dolutegravir/Lamivudine (Triumeq (Non-Formulary)) 1 each PO DAILY [facility] Last Admin: 08/24/18 10:01 Dose: 1 each Acetaminophen (Tylenol Oral Solution -) 1,000 mg PO Q6H PRN PRN Reason: FEVER Last Admin: 08/23/18 23:31 Dose: 1,000 mg Albuterol/Ipratropium (Duoneb -) 1 amp NEB RQID [facility] Last Admin: 08/24/18 08:39 Dose: 1 amp Chlorhexidine Gluconate (Peridex -) 15 ml MM BID [facility] Last Admin: 08/24/18 10:00 Dose: Not Given Clopidogrel Bisulfate (Plavix -) 75 mg PO DAILY [facility] Last Admin: 08/24/18 09:58 Dose: 75 mg Heparin Sodium (Porcine) (Heparin -) 5,000 unit SQ TID [facility] Last Admin: 08/24/18 06:14 Dose: 5,000 unit IV Flush (Triple Lumen Flush) 4 ml IVPUSH PRN PRN PRN Reason: Protocol Nafcillin Sodium 2 gm/ (Dextrose) 100 mls @ 100 mls/hr IVPB Q4H-IV [facility]; Protocol Last Admin: 08/24/18 11:27 Dose: 100 mls/hr Fentanyl 500 mcg/ Dextrose 100 mls @ 5 mls/hr IVPB TITR [facility]; Protocol Last Titration: 08/24/18 09:00 Dose: 50 mcg/hr, 10 mls/hr Propofol (Diprivan -) 1,000,000 mcg in 100 mls @ 16.98 mls/hr IVPB TITR [facility]; Protocol Last Titration: 08/24/18 06:34 Dose: 10 mcg/kg/min, 3.396 mls/hr Meropenem 1 gm/ Dextrose 100 mls @ 200 mls/hr IVPB Q8H-IV [facility] Last Admin: 08/24/18 09:58 Dose: 200 mls/hr Midazolam HCl 100 mg/ Sodium (Chloride) 100 mls @ 1 mls/hr IVPB TITR [facility]; Protocol Last Admin: 08/24/18 10:00 Dose: Not Given Sodium Chloride (Normal Saline -) 1,000 mls @ 100 mls/hr IV ASDIR [facility] Last Admin: 08/24/18 09:56 Dose: 100 mls/hr Norepinephrine Bitartrate 8, (000 mcg/ Dextrose) 500 mls @ 18.75 mls/hr IV TITR [facility]; Protocol Last Titration: 08/24/18 09:55 Dose: 15 mcg/min, 56.25 mls/hr Methylprednisolone Sodium Succinate (Solu-Medrol -) 40 mg IVPUSH DAILY [facility] Last Admin: 08/24/18 09:58 Dose: 40 mg Pantoprazole Sodium (Protonix Iv) 40 mg IVPUSH DAILY [facility] Last Admin: 08/24/18 09:57 Dose: 40 mg - Objective Vital Signs: Vital Signs Temperature 102.9 F H 08/24/18 08:00 Pulse Rate 108 H 08/24/18 09:55 Respiratory Rate 25 H 08/24/18 11:24 Blood Pressure 79/56 L 08/24/18 09:55 O2 Sat by Pulse Oximetry (%) 100 08/24/18 11:24 Constitutional: Yes: Calm Eyes: Yes: Conjunctiva Clear HENT: Yes: Atraumatic Neck: Yes: Supple Cardiovascular: Yes: S1, S2 Respiratory: Yes: Mechanically Ventilated Gastrointestinal: Yes: Soft, Other Genitourinary: Yes: Han Present Musculoskeletal: Yes: Muscle Weakness Edema: LUE: Trace, RUE: Trace Integumentary: Yes: WNL Neurological: Yes: Lethargy Labs: CBC, BMP 08/24/18 05:30 08/24/18 05:30 INR, PTT INR 1.34 (0.83-1.09) H 08/22/18 05:30 - ....Imaging Chest X-ray: Report Reviewed Problem List - Problems (1) Acute renal failure Code(s): N17.9 - ACUTE KIDNEY FAILURE, UNSPECIFIED Qualifiers: Acute renal failure type: unspecified Qualified Code(s): N17.9 - Acute kidney failure, unspecified (2) Altered mental status, unspecified Code(s): R41.82 - ALTERED MENTAL STATUS, UNSPECIFIED Qualifiers: Altered mental status type: somnolence Qualified Code(s): R40.0 - Somnolence (3) CHF (congestive heart failure) Code(s): I50.9 - HEART FAILURE, UNSPECIFIED Qualifiers: Heart failure type: diastolic Heart failure chronicity: chronic Qualified Code(s): I50.32 - Chronic diastolic (congestive) heart failure (4) COPD with acute exacerbation Code(s): J44.1 - CHRONIC OBSTRUCTIVE PULMONARY DISEASE W (ACUTE) EXACERBATION (5) Hyperkalemia Code(s): E87.5 - HYPERKALEMIA Assessment/Plan Current Medications Generic Name Dose Route Start Last Admin Trade Name Freq PRN Reason Stop Dose Admin Abacavir/Dolutegravir/Lamivudine 1 each 08/10/18 14:00 08/24/18 10:01 Triumeq (Non-Formulary) PO 1 each DAILY [facility] Administration Acetaminophen 1,000 mg 08/16/18 16:11 08/23/18 23:31 Tylenol Oral Solution - PO 1,000 mg Q6H PRN Administration FEVER Albuterol/Ipratropium 1 amp 08/17/18 16:00 08/24/18 08:39 Duoneb - NEB 1 amp RQID [facility] Administration Chlorhexidine Gluconate 15 ml 08/17/18 22:00 08/24/18 10:00 Peridex - MM Not Given BID [facility] Clopidogrel Bisulfate 75 mg 08/10/18 10:00 08/24/18 09:58 Plavix - PO 75 mg DAILY [facility] Administration Heparin Sodium (Porcine) 5,000 unit 08/17/18 14:00 08/24/18 06:14 Heparin - SQ 5,000 unit TID [facility] Administration IV Flush 4 ml 08/23/18 11:37 Triple Lumen Flush IVPUSH PRN PRN Protocol Nafcillin Sodium 2 gm/ 100 mls @ 100 mls/hr 08/19/18 20:00 08/24/18 11:27 Dextrose IVPB 100 mls/hr Q4H-IV [facility] Administration Protocol Fentanyl 500 mcg/ Dextrose 100 mls @ 5 mls/hr 08/20/18 10:30 08/24/18 09:00 IVPB 50 mcg/hr TITR [facility] 10 mls/hr Titration Protocol 25 MCG/HR Propofol 1,000,000 mcg in 100 mls @ 16.98 mls/hr 08/20/18 10:39 08/24/18 06: 34 Diprivan - IVPB 10 mcg/kg/min TITR [facility] 3.396 mls/hr Titration Protocol 50 MCG/KG/MIN Meropenem 1 gm/ Dextrose 100 mls @ 200 mls/hr 08/21/18 10:00 08/24/18 09:58 IVPB 200 mls/hr Q8H-IV [facility] Administration Midazolam HCl 100 mg/ Sodium 100 mls @ 1 mls/hr 08/21/18 10:00 08/24/18 10:00 Chloride IVPB Not Given TITR [facility] Protocol 1 MG/HR Sodium Chloride 1,000 mls @ 100 mls/hr 08/23/18 08:15 08/24/18 09:56 Normal Saline - IV 100 mls/hr ASDIR [facility] Administration Norepinephrine Bitartrate 8, 500 mls @ 18.75 mls/hr 08/24/18 06:15 08/24/18 09:55 000 mcg/ Dextrose IV 15 mcg/min TITR [facility] 56.25 mls/hr Titration Protocol 5 MCG/MIN Methylprednisolone Sodium Succinate 40 mg 08/23/18 10:00 08/24/18 09:58 Solu-Medrol - IVPUSH 40 mg DAILY [facility] Administration Pantoprazole Sodium 40 mg 08/11/18 13:15 08/24/18 09:57 Protonix Iv IVPUSH 40 mg DAILY [facility] Administration Impression 1. KRISTIAN 2. Hyperkalemia 3. HIV 4. hyponatremia 5. altered mental status 6. pulm HTN 7. htn 8. pvd 9. resp acidosis 10. resp failure requiring intubation Plan - renal function worsening - check ua - send urine lytes and clinical account executive to calc fena - likely has atn from prolonged hypotension - maintain map at 65 - monitor cvp - discussed with ICU team - maintain han and monitor output - daily cxr - hold bp meds
--- NOTE | 2018-08-24 13:49 | PN ---
Progress Note, Physician History of Present Illness: DOING POORLY SEDATED ON VENTILATOR FEBRILE NOW ON PRESSORS AND IN ACUTE RENAL FAILURE WBC REMAINS ELEVATED BC MSSA SPUTUM C/S MSSA PSEUDOMONAS - Current Medication List Current Medications: Active Medications Abacavir/Dolutegravir/Lamivudine (Triumeq (Non-Formulary)) 1 each PO DAILY [facility] Last Admin: 08/24/18 10:01 Dose: 1 each Acetaminophen (Tylenol Oral Solution -) 1,000 mg PO Q6H PRN PRN Reason: FEVER Last Admin: 08/23/18 23:31 Dose: 1,000 mg Albuterol/Ipratropium (Duoneb -) 1 amp NEB RQID [facility] Last Admin: 08/24/18 08:39 Dose: 1 amp Chlorhexidine Gluconate (Peridex -) 15 ml MM BID [facility] Last Admin: 08/24/18 10:00 Dose: Not Given Clopidogrel Bisulfate (Plavix -) 75 mg PO DAILY [facility] Last Admin: 08/24/18 09:58 Dose: 75 mg Heparin Sodium (Porcine) (Heparin -) 5,000 unit SQ TID [facility] Last Admin: 08/24/18 06:14 Dose: 5,000 unit IV Flush (Triple Lumen Flush) 4 ml IVPUSH PRN PRN PRN Reason: Protocol Nafcillin Sodium 2 gm/ (Dextrose) 100 mls @ 100 mls/hr IVPB Q4H-IV [facility]; Protocol Last Admin: 08/24/18 11:27 Dose: 100 mls/hr Fentanyl 500 mcg/ Dextrose 100 mls @ 5 mls/hr IVPB TITR [facility]; Protocol Last Titration: 08/24/18 09:00 Dose: 50 mcg/hr, 10 mls/hr Propofol (Diprivan -) 1,000,000 mcg in 100 mls @ 16.98 mls/hr IVPB TITR [facility]; Protocol Last Titration: 08/24/18 06:34 Dose: 10 mcg/kg/min, 3.396 mls/hr Meropenem 1 gm/ Dextrose 100 mls @ 200 mls/hr IVPB Q8H-IV [facility] Last Admin: 08/24/18 09:58 Dose: 200 mls/hr Midazolam HCl 100 mg/ Sodium (Chloride) 100 mls @ 1 mls/hr IVPB TITR [facility]; Protocol Last Admin: 08/24/18 10:00 Dose: Not Given Sodium Chloride (Normal Saline -) 1,000 mls @ 100 mls/hr IV ASDIR [facility] Last Admin: 08/24/18 09:56 Dose: 100 mls/hr Norepinephrine Bitartrate 8, (000 mcg/ Dextrose) 500 mls @ 18.75 mls/hr IV TITR [facility]; Protocol Last Titration: 08/24/18 09:55 Dose: 15 mcg/min, 56.25 mls/hr Methylprednisolone Sodium Succinate (Solu-Medrol -) 40 mg IVPUSH DAILY [facility] Last Admin: 08/24/18 09:58 Dose: 40 mg Pantoprazole Sodium (Protonix Iv) 40 mg IVPUSH DAILY [facility] Last Admin: 08/24/18 09:57 Dose: 40 mg - Objective Vital Signs: Vital Signs Temperature 102.9 F H 08/24/18 08:00 Pulse Rate 108 H 08/24/18 09:55 Respiratory Rate 25 H 08/24/18 11:24 Blood Pressure 79/56 L 08/24/18 09:55 O2 Sat by Pulse Oximetry (%) 100 08/24/18 11:24 Constitutional: Yes: No Distress Eyes: Yes: Conjunctiva Clear Cardiovascular: Yes: Regular Rate and Rhythm, S1, S2 Respiratory: Yes: Mechanically Ventilated Gastrointestinal: Yes: Normal Bowel Sounds, Soft. No: Tenderness Edema: Yes Edema: LUE: 1+, RUE: 1+, LLE: 1+, RLE: 1+ Labs: CBC, BMP 08/24/18 05:30 08/24/18 05:30 INR, PTT INR 1.34 (0.83-1.09) H 08/22/18 05:30 Assessment/Plan SEPSIS MSSA BACTEREMIA ? PNEUMONIA ?ENDOCARDITIS RESPIRATORY FAILURE/ COPD EXACERBATION HCAP RENAL FAILURE MARKED LEUKOCYTOSIS HIV+ CD4 437 REPEAT BC NO GROWTH CONTINUE NAFCILLIN/ MEROPENEM; ADJUST FOR KRISTIAN HEMODYNAMIC/ VENTILATORY SUPPORT CONTINUE ART PROGNOSIS POOR
[2018-08-24] MEDS: PROPOFOL 1,000,000 MCG/100 ML VIAL IVPB SCH (16:00)
--- NOTE | 2018-08-24 16:30 | PN ---
Progress Note, Physician History of Present Illness: Remains sedated and intubated on ventilator support, febrile on Levophed gtt. - Current Medication List Current Medications: Active Medications Abacavir/Dolutegravir/Lamivudine (Triumeq (Non-Formulary)) 1 each PO DAILY [facility] Last Admin: 08/24/18 10:01 Dose: 1 each Acetaminophen (Tylenol Oral Solution -) 1,000 mg PO Q6H PRN PRN Reason: FEVER Last Admin: 08/23/18 23:31 Dose: 1,000 mg Albuterol/Ipratropium (Duoneb -) 1 amp NEB RQID [facility] Last Admin: 08/24/18 16:19 Dose: 1 amp Chlorhexidine Gluconate (Peridex -) 15 ml MM BID [facility] Last Admin: 08/24/18 10:00 Dose: Not Given Clopidogrel Bisulfate (Plavix -) 75 mg PO DAILY [facility] Last Admin: 08/24/18 09:58 Dose: 75 mg Heparin Sodium (Porcine) (Heparin -) 5,000 unit SQ TID [facility] Last Admin: 08/24/18 14:30 Dose: 5,000 unit IV Flush (Triple Lumen Flush) 4 ml IVPUSH PRN PRN PRN Reason: Protocol Nafcillin Sodium 2 gm/ (Dextrose) 100 mls @ 100 mls/hr IVPB Q4H-IV [facility]; Protocol Last Admin: 08/24/18 14:30 Dose: 100 mls/hr Fentanyl 500 mcg/ Dextrose 100 mls @ 5 mls/hr IVPB TITR [facility]; Protocol Last Titration: 08/24/18 09:00 Dose: 50 mcg/hr, 10 mls/hr Propofol (Diprivan -) 1,000,000 mcg in 100 mls @ 16.98 mls/hr IVPB TITR [facility]; Protocol Last Titration: 08/24/18 12:00 Dose: 0 mcg/kg/min, 0 mls/hr Midazolam HCl 100 mg/ Sodium (Chloride) 100 mls @ 1 mls/hr IVPB TITR [facility]; Protocol Last Admin: 08/24/18 10:00 Dose: Not Given Sodium Chloride (Normal Saline -) 1,000 mls @ 100 mls/hr IV ASDIR [facility] Last Admin: 08/24/18 09:56 Dose: 100 mls/hr Norepinephrine Bitartrate 8, (000 mcg/ Dextrose) 500 mls @ 18.75 mls/hr IV TITR [facility]; Protocol Last Titration: 08/24/18 15:00 Dose: 10 mcg/min, 37.5 mls/hr Meropenem 500 mg/ Dextrose 100 mls @ 200 mls/hr IVPB Q8H-IV [facility] Methylprednisolone Sodium Succinate (Solu-Medrol -) 40 mg IVPUSH DAILY [facility] Last Admin: 08/24/18 09:58 Dose: 40 mg Pantoprazole Sodium (Protonix Iv) 40 mg IVPUSH DAILY [facility] Last Admin: 08/24/18 09:57 Dose: 40 mg - Objective Vital Signs: Vital Signs Temperature 102.9 F H 08/24/18 08:00 Pulse Rate 98 H 08/24/18 15:00 Respiratory Rate 25 H 08/24/18 16:19 Blood Pressure 129/74 08/24/18 15:00 O2 Sat by Pulse Oximetry (%) 100 08/24/18 11:24 Constitutional: Yes: Other (Sedated) Cardiovascular: Yes: Regular Rate and Rhythm Respiratory: Yes: Intubated, Mechanically Ventilated, Rhonchi Gastrointestinal: Yes: Soft, Hypoactive Bowel Sounds Edema: Yes Labs: CBC, BMP 08/24/18 05:30 08/24/18 05:30 INR, PTT INR 1.34 (0.83-1.09) H 08/22/18 05:30 - ....Imaging Chest X-ray: Report Reviewed (Congestion) Ultrasound: Report Reviewed (No hydronephrosis) Problem List - Problems (1) Altered mental status, unspecified Code(s): R41.82 - ALTERED MENTAL STATUS, UNSPECIFIED Qualifiers: Altered mental status type: somnolence Qualified Code(s): R40.0 - Somnolence (2) CHF (congestive heart failure) Code(s): I50.9 - HEART FAILURE, UNSPECIFIED Qualifiers: Heart failure type: diastolic Heart failure chronicity: chronic Qualified Code(s): I50.32 - Chronic diastolic (congestive) heart failure (3) COPD with acute exacerbation Code(s): J44.1 - CHRONIC OBSTRUCTIVE PULMONARY DISEASE W (ACUTE) EXACERBATION (4) Elevated troponin I level Code(s): R74.8 - ABNORMAL LEVELS OF OTHER SERUM ENZYMES (5) Respiratory acidosis Code(s): E87.2 - ACIDOSIS (6) CAD (coronary artery disease) Code(s): I25.10 - ATHSCL HEART DISEASE OF [place] CORONARY ARTERY W/O ANG PCTRS Qualifiers: Coronary Disease-Associated Artery/Lesion type: [place] artery [place] vs. transplanted heart: [place] heart Associated angina: without angina Qualified Code(s): I25.10 - Atherosclerotic heart disease of [place] coronary artery without angina pectoris (7) Asymptomatic cholelithiasis Code(s): K80.20 - CALCULUS OF GALLBLADDER W/O CHOLECYSTITIS W/O OBSTRUCTION (8) Cor pulmonale, chronic Code(s): I27.81 - COR PULMONALE (CHRONIC) (9) HIV Code(s): Z21 - ASYMPTOMATIC HUMAN IMMUNODEFICIENCY VIRUS INFECTION STATUS (10) HTN (hypertension) Code(s): I10 - ESSENTIAL (PRIMARY) HYPERTENSION Qualifiers: Hypertension type: essential hypertension Qualified Code(s): I10 - Essential (primary) hypertension (11) Hyperlipidemia Code(s): E78.5 - HYPERLIPIDEMIA, UNSPECIFIED Qualifiers: Hyperlipidemia type: pure hypercholesterolemia Qualified Code(s): E78.00 - Pure hypercholesterolemia, unspecified; E78.0 - Pure hypercholesterolemia (12) PVD (peripheral vascular disease) Code(s): I73.9 - PERIPHERAL VASCULAR DISEASE, UNSPECIFIED (13) S/P CABG (coronary artery bypass graft) Code(s): Z95.1 - PRESENCE OF AORTOCORONARY BYPASS GRAFT Assessment/Plan Echo: 07/06/2018 Mod cLVH with preserved LV fxn, mod-severe RITIKA, severe TR, RVSP >60, RV volume overload with mod decreased RV fxn 1. Acute on chronic hypercapneic and hypoxemic respiratory failure on mechanical ventilation 2. Acute exacerbation of chronic obstructive pulmonary disease, PNA with MSSA bacteremia 3. Right Heart Failure with Severe Pulmonary HTN 4. Acute on chronic class I-II NYHA classification LV failure related to diastolic dysfunction, resolving 5. CAD post CABG with evidence of demand ischemia angina pectoris 6. HTN 7. Hypercholesterolemia 8. PAD post SFA stent 9. Acute on CKD with hyperkalemia referable to hemodynamicc alterations and ATN 10. Toxic metabolic encephelopathy, persistent 11. HIV and Hepatitis C 12. Cholelithiasis PLAN: 1. Wean Levophed to maintain MAP >65 2. Hold Losartan, Carvedilol, Hydralazine pending hemodynamics stability 3. Continue Plavix 75 qd 4. D/C Ranexa cannot be administered via NG tube, cannot be crushed 5. IV steroid and bronchodilator, taper FiO2, PEEP to keep SpO2 >90% 6. Antibiotic course per C&S 7. Overall poor prognosis, plan for tracheostomy/PEG insertion 8. Enteral feeds, DVT/GI prophylaxis
[2018-08-24] MEDS: MEROPENEM 500 MG in DEXTROSE 5%-WATER 100 ML IVPB SCH (17:29)
--- NOTE | 2018-08-24 18:47 | PN ---
Progress Note, Physician History of Present Illness: intubated - Current Medication List Current Medications: Active Medications Abacavir/Dolutegravir/Lamivudine (Triumeq (Non-Formulary)) 1 each PO DAILY [facility] Last Admin: 08/24/18 10:01 Dose: 1 each Acetaminophen (Tylenol Oral Solution -) 1,000 mg PO Q6H PRN PRN Reason: FEVER Last Admin: 08/23/18 23:31 Dose: 1,000 mg Albuterol/Ipratropium (Duoneb -) 1 amp NEB RQID [facility] Last Admin: 08/24/18 16:19 Dose: 1 amp Chlorhexidine Gluconate (Peridex -) 15 ml MM BID [facility] Last Admin: 08/24/18 10:00 Dose: Not Given Clopidogrel Bisulfate (Plavix -) 75 mg PO DAILY [facility] Last Admin: 08/24/18 09:58 Dose: 75 mg Heparin Sodium (Porcine) (Heparin -) 5,000 unit SQ TID [facility] Last Admin: 08/24/18 14:30 Dose: 5,000 unit IV Flush (Triple Lumen Flush) 4 ml IVPUSH PRN PRN PRN Reason: Protocol Nafcillin Sodium 2 gm/ (Dextrose) 100 mls @ 100 mls/hr IVPB Q4H-IV [facility]; Protocol Last Admin: 08/24/18 17:30 Dose: 100 mls/hr Fentanyl 500 mcg/ Dextrose 100 mls @ 5 mls/hr IVPB TITR [facility]; Protocol Last Admin: 08/24/18 15:00 Dose: 50 mcg/hr, 10 mls/hr Propofol (Diprivan -) 1,000,000 mcg in 100 mls @ 16.98 mls/hr IVPB TITR [facility]; Protocol Last Admin: 08/24/18 16:00 Dose: 10 mcg/kg/min, 3.396 mls/hr Midazolam HCl 100 mg/ Sodium (Chloride) 100 mls @ 1 mls/hr IVPB TITR [facility]; Protocol Last Admin: 08/24/18 10:00 Dose: Not Given Sodium Chloride (Normal Saline -) 1,000 mls @ 100 mls/hr IV ASDIR [facility] Last Admin: 08/24/18 09:56 Dose: 100 mls/hr Norepinephrine Bitartrate 8, (000 mcg/ Dextrose) 500 mls @ 18.75 mls/hr IV TITR [facility]; Protocol Last Titration: 08/24/18 15:00 Dose: 10 mcg/min, 37.5 mls/hr Meropenem 500 mg/ Dextrose 100 mls @ 200 mls/hr IVPB Q8H-IV [facility] Last Admin: 08/24/18 17:29 Dose: 200 mls/hr Methylprednisolone Sodium Succinate (Solu-Medrol -) 40 mg IVPUSH DAILY [facility] Last Admin: 08/24/18 09:58 Dose: 40 mg Pantoprazole Sodium (Protonix Iv) 40 mg IVPUSH DAILY [facility] Last Admin: 08/24/18 09:57 Dose: 40 mg - Objective Vital Signs: Vital Signs Temperature 99.3 F 08/24/18 15:00 Pulse Rate 98 H 08/24/18 18:00 Respiratory Rate 26 H 08/24/18 18:00 Blood Pressure 91/59 L 08/24/18 18:00 O2 Sat by Pulse Oximetry (%) 100 08/24/18 11:24 HENT: Yes: Atraumatic Neck: Yes: Supple Cardiovascular: Yes: Regular Rate and Rhythm Respiratory: Yes: Rhonchi Gastrointestinal: Yes: Normal Bowel Sounds Extremities: Yes: WNL Neurological: Yes: Other (intubated) Labs: CBC, BMP 08/24/18 05:30 08/24/18 05:30 INR, PTT INR 1.34 (0.83-1.09) H 08/22/18 05:30 Problem List - Problems (1) Acute renal failure Assessment/Plan: monitor Code(s): N17.9 - ACUTE KIDNEY FAILURE, UNSPECIFIED Qualifiers: Acute renal failure type: unspecified Qualified Code(s): N17.9 - Acute kidney failure, unspecified (2) Altered mental status, unspecified Code(s): R41.82 - ALTERED MENTAL STATUS, UNSPECIFIED Qualifiers: Altered mental status type: somnolence Qualified Code(s): R40.0 - Somnolence (3) COPD with acute exacerbation Code(s): J44.1 - CHRONIC OBSTRUCTIVE PULMONARY DISEASE W (ACUTE) EXACERBATION (4) Elevated troponin I level Code(s): R74.8 - ABNORMAL LEVELS OF OTHER SERUM ENZYMES (5) Hyperkalemia Code(s): E87.5 - HYPERKALEMIA (6) COPD (chronic obstructive pulmonary disease) Code(s): J44.9 - CHRONIC OBSTRUCTIVE PULMONARY DISEASE, UNSPECIFIED Qualifiers: (7) HIV Code(s): Z21 - ASYMPTOMATIC HUMAN IMMUNODEFICIENCY VIRUS INFECTION STATUS (8) HTN (hypertension) Code(s): I10 - ESSENTIAL (PRIMARY) HYPERTENSION Qualifiers: Hypertension type: essential hypertension Qualified Code(s): I10 - Essential (primary) hypertension (9) Hyperlipidemia Code(s): E78.5 - HYPERLIPIDEMIA, UNSPECIFIED Qualifiers: Hyperlipidemia type: pure hypercholesterolemia Qualified Code(s): E78.00 - Pure hypercholesterolemia, unspecified; E78.0 - Pure hypercholesterolemia (10) PVD (peripheral vascular disease) Code(s): I73.9 - PERIPHERAL VASCULAR DISEASE, UNSPECIFIED (11) CHF (congestive heart failure) Code(s): I50.9 - HEART FAILURE, UNSPECIFIED Qualifiers: Heart failure type: diastolic Heart failure chronicity: chronic Qualified Code(s): I50.32 - Chronic diastolic (congestive) heart failure (12) Sepsis Assessment/Plan: on abx monitor wbc Code(s): A41.9 - SEPSIS, UNSPECIFIED ORGANISM (13) Respiratory acidosis Code(s): E87.2 - ACIDOSIS (14) Respiratory failure requiring intubation Code(s): J96.90 - RESPIRATORY FAILURE, UNSP, UNSP W HYPOXIA OR HYPERCAPNIA Assessment/Plan cc time in icu 35 min
[2018-08-24] MEDS ORDERED: MIDAZOLAM 100 MG/100 ML MG IVPB ONE (22:37)
[2018-08-25] MEDS ORDERED: fentaNYL CITRATE 250 MCG/5 ML VIAL ONE ×3 (00:44→22:34)
[2018-08-25] MEDS: NAFCILLIN - 2 GM in DEXTROSE 5%-WATER - 100 ML IVPB SCH ×6 (01:28→21:14)
[2018-08-25] MEDS: MEROPENEM 500 MG in DEXTROSE 5%-WATER 100 ML IVPB SCH ×3 (01:29→18:14)
[2018-08-25] MEDS: FENTANYL INJECTION 500 MCG in DEXTROSE 5%-WATER - 90 ML IVPB SCH ×3 (02:49→18:15)
[2018-08-25] MEDS ORDERED: PT OWN MED DRAWER 7, Y5N ONE ×7 (05:27→21:16)
[2018-08-25] MEDS: BANATROL PLUS POWDER PACKET PO SCH ×3 (05:31→21:13)
[2018-08-25] MEDS: HEPARIN NA (PORCINE) 5,000 UNITS/ML 1ML VIAL SQ SCH ×3 (05:31→21:10)
[2018-08-25] MEDS: NOREPINEPHRINE BITARTRATE 8,000 MCG in DEXTROSE 5%-WATER - 492 ML IV SCH (05:54)
[2018-08-25 06:15] LABS: ARTERIAL BLD GAS O2 SATURATION 96.6 % (95-98); ARTERIAL BLOOD GAS BASE EXCESS -8.1 meq/l (-2-2); ARTERIAL BLOOD GAS PCO2 66.4 mmHg (35-45); ARTERIAL BLOOD GAS PO2 104 mmHg (80-105)
[2018-08-25 06:19] LABS: ALLENS TEST POSITIVE
[2018-08-25 06:26] LABS: ARTERIAL BLOOD GAS pH 7.13 (7.35-7.45)
[2018-08-25 06:43] LABS: HEMATOCRIT 28.3 % (32.4-45.2); HEMOGLOBIN 9.1 GM/dL (10.7-15.3); MCH 30.1 pg (25.7-33.7); MCHC 32.3 g/dl (32.0-36.0); MEAN CELL VOLUME 93.2 fl (80-96); MEAN PLT VOLUME 8.4 fl (7.5-11.1); PLATELET COUNT 305 K/MM3 (134-434); RBC 3.03 M/mm3 (3.60-5.2); RDW 16.1 % (11.6-15.6); WHITE BLOOD COUNT 28.4 K/mm3 (4.0-10.0)
[2018-08-25 06:50] LABS: ALBUMIN 1.3 g/dl (3.4-5.0); ALK PHOS 62 U/L (45-117); ANION GAP 12 MMOL/L (8-16); BILIRUBIN,TOTAL 1.5 mg/dL (0.2-1); BLOOD UREA NITROGEN 86 mg/dL (7-18); CALCIUM 8.5 mg/dL (8.5-10.1); CHLORIDE 91 mmol/L (98-107); CO2 22 mmol/L (21-32); CREATININE 3.3 mg/dL (0.55-1.3); GLUCOSE,RANDOM 206 mg/dL (74-106); MAGNESIUM 1.9 mg/dL (1.8-2.4); PHOSPHOROUS 8.2 mg/dL (2.5-4.9); POTASSIUM 4.3 mmol/L (3.5-5.1); SGOT/AST 25 U/L (15-37); SGPT/ALT 11 U/L (13-61); SODIUM 125 mmol/L (136-145); TOT PROT 5.5 g/dl (6.4-8.2)
[2018-08-25 07:06] LABS: INR 1.12 (0.83-1.09); PROTHROMBIN TIME (PATIENT) 13.2 SEC (9.7-13.0)
--- NOTE | 2018-08-25 07:23 | PN ---
Physical Exam: SUBJECTIVE: Patient seen and examined HD# 17 Intubation Day 15 Overnight Events: BP trended downward overnight. Norepinephrine gtts started to maintain MAP. No tachycardia. Sedation was held without any change in mental status. Required increase in ventilatory support overnight. ABGs show slight improvement in acidosis and PO2. OBJECTIVE: Vital Signs Period Temp Pulse Resp BP Sys/Buck Pulse Ox Last 24 Hr 97.2 F-102.9 F 88-108 23-26 79-137/51-89 95-100 Intake & Output 08/24/18 08/25/18 08/25/18 23:59 07:59 15:59 Intake Total 2562 3189 Output Total 800 460 Balance 1762 2729 Weight 66.497 kg Intake: IV 1192 1749 DIPRIVAN - 1,000,000 mcg 34 98 In 100 ml @ 50 MCG/KG/MIN 16.98 mls/hr IVPB TITR [facility] Rx#:[id number] Levophed - 8,000 Mcg In 514 384 D5w - 492 ml @ 5 MCG/MIN 18.75 mls/hr IV TITR [facility] Rx#:[id number] Normal Saline - 1,000 ml 500 1000 @ 100 mls/hr IV ASDIR [facility] Rx#:[id number] RIJ 30 20 Sublimaze Injection - 500 94 223 Mcg In D5w - 90 ml @ 25 MCG/HR 5 mls/hr IVPB TITR [facility] Rx#:[id number] Versed - 100 mg In Normal 20 24 Saline - 100 ml @ 1 MG/ HR 1 mls/hr IVPB TITR [facility] Rx#:[id number] IVPB 300 300 Oral 0 Tube Feeding 350 420 Tube Irrigant 720 720 Output: Gastric Drainage 800 440 Urine 20 Torres 20 Other: Voiding Method Indwelling Catheter Indwelling Catheter Bowel Movement Yes Weight Measurement Method Built in [facility] Lines: - R IJ - PIV Drains: - NG - Torres - Rectal tube Supplemental Oxygen: Ventilator: Mode: AC Vent rate: 25 Tv: 370 PEEP: 9 FiO2: 70% Physical Exams: GENERAL: The patient is sedated. Does not respond to verbal or painful stimuli. HEAD: Normal with no signs of trauma. EYES: Closed. LUNGS: Intubated and mechanically ventilated. Deep and mildly rapid breathing. Breath sounds equal, with trace diffuse rhonchi. No wheezes or rales. HEART: Regular rate and regular rhythm, S1, S2 without murmur, rub or gallop. ABDOMEN: Soft and nondistended. EXTREMITIES: 2+ pulses, warm, well-perfused. 2+ edema to all extremities U>L. SKIN: Warm and dry. Stage 2 decubitus ulcer with dressing in place. Drips: - Fentanyl - Versed - Propofol - Levophed - NS Anti Infectives: - Nafcillin Day 7 - Meropenem Day 5 Laboratory Results - last 24 hr 08/24/18 08/24/18 08/24/18 05:30 09:50 10:29 WBC RBC Hgb Hct MCV MCH MCHC RDW Plt Count MPV Neutrophils % (Manual) 89.0 H Band Neutrophils % 1.0 Lymphocytes % (Manual) 1.0 L Monocytes % (Manual) 7 Eosinophils % (Manual) 0.0 Basophils % (Manual) 0.0 Myelocytes % (Man) 1 D Promyelocytes % (Man) 0 Blast Cells % (Manual) 0 Metamyelocytes 0 Hypochromia 0 Platelet Estimate Normal Platelet Comment Present Polychromasia 0 Poikilocytosis 1+ Anisocytosis 1+ Microcytosis 1+ Macrocytosis 0 Spherocytes 1+ Target Cells 1+ Tear Drop Cells 1+ Acanthocytes (Spur) 1+ PT with INR INR Anticoagulation Therapy Puncture Site Right radial Patient Temperature 102.9 ABG pH 7.15 L* ABG pCO2 at Pt Temp 74.2 H* ABG pO2 at Pt Temp 84.9 ABG HCO3 24.6 ABG O2 Sat (Measured) 94.6 L ABG O2 Content 10.7 L ABG Base Excess -4.2 L Trevor Test Positive O2 Delivery Device Oxygen Flow Rate Yes Vent Mode A/c Vent Rate 18 Mechanical Rate PEEP 9.0 Pressure Support Vent 370 Sodium Potassium Chloride Carbon Dioxide Anion Gap BUN Creatinine Creat Clearance w eGFR Random Glucose Calcium Phosphorus Magnesium Total Bilirubin AST ALT Alkaline Phosphatase Total Protein Albumin Ur Random Creatinine Ur Random Sodium Ur Random Potassium Ur Random Chloride Stool Occult Blood Positive 08/24/18 08/24/18 08/25/18 12:30 12:30 06:00 WBC 28.4 H RBC 3.03 L Hgb 9.1 L Hct 28.3 L MCV 93.2 MCH 30.1 MCHC 32.3 RDW 16.1 H Plt Count 305 MPV 8.4 Neutrophils % (Manual) Band Neutrophils % Lymphocytes % (Manual) Monocytes % (Manual) Eosinophils % (Manual) Basophils % (Manual) Myelocytes % (Man) Promyelocytes % (Man) Blast Cells % (Manual) Metamyelocytes Hypochromia Platelet Estimate Platelet Comment Polychromasia Poikilocytosis Anisocytosis Microcytosis Macrocytosis Spherocytes Target Cells Tear Drop Cells Acanthocytes (Spur) PT with INR INR Anticoagulation Therapy Puncture Site Patient Temperature ABG pH ABG pCO2 at Pt Temp ABG pO2 at Pt Temp ABG HCO3 ABG O2 Sat (Measured) ABG O2 Content ABG Base Excess Trevor Test O2 Delivery Device Oxygen Flow Rate Vent Mode Vent Rate Mechanical Rate PEEP Pressure Support Vent Sodium Potassium Chloride Carbon Dioxide Anion Gap BUN Creatinine Creat Clearance w eGFR Random Glucose Calcium Phosphorus Magnesium Total Bilirubin AST ALT Alkaline Phosphatase Total Protein Albumin Ur Random Creatinine 44 Ur Random Sodium 77 Ur Random Potassium 21.4 L Ur Random Chloride 67 L Stool Occult Blood 08/25/18 08/25/18 08/25/18 06:00 06:00 06:00 WBC RBC Hgb Hct MCV MCH MCHC RDW Plt Count MPV Neutrophils % (Manual) Band Neutrophils % Lymphocytes % (Manual) Monocytes % (Manual) Eosinophils % (Manual) Basophils % (Manual) Myelocytes % (Man) Promyelocytes % (Man) Blast Cells % (Manual) Metamyelocytes Hypochromia Platelet Estimate Platelet Comment Polychromasia Poikilocytosis Anisocytosis Microcytosis Macrocytosis Spherocytes Target Cells Tear Drop Cells Acanthocytes (Spur) PT with INR 13.20 H INR 1.12 H Anticoagulation Therapy No Result Required. Puncture Site Left radial Patient Temperature ABG pH 7.13 L* ABG pCO2 at Pt Temp 66.4 H ABG pO2 at Pt Temp 104 ABG HCO3 21.1 L ABG O2 Sat (Measured) 96.6 ABG O2 Content 13.2 L ABG Base Excess -8.1 L Trevor Test Positive O2 Delivery Device Vent Oxygen Flow Rate 70% Vent Mode A/c Vent Rate 25 Mechanical Rate No Result Required. PEEP 8.0 Pressure Support Vent 370 Sodium 125 L Potassium 4.3 Chloride 91 L Carbon Dioxide 22 Anion Gap 12 BUN 86 H Creatinine 3.3 H Creat Clearance w eGFR 13.94 Random Glucose 206 H Calcium 8.5 Phosphorus 8.2 H Magnesium 1.9 Total Bilirubin 1.5 H AST 25 ALT 11 L Alkaline Phosphatase 62 Total Protein 5.5 L Albumin 1.3 L Ur Random Creatinine Ur Random Sodium Ur Random Potassium Ur Random Chloride Stool Occult Blood Active Medications Generic Name Dose Route Start Last Admin Trade Name Freq PRN Reason Stop Dose Admin Abacavir/Dolutegravir/Lamivudine 1 each 08/10/18 14:00 08/24/18 10:01 Triumeq (Non-Formulary) PO 1 each DAILY [facility] Administration Acetaminophen 1,000 mg 08/16/18 16:11 08/23/18 23:31 Tylenol Oral Solution - PO 1,000 mg Q6H PRN Administration FEVER Albuterol/Ipratropium 1 amp 08/17/18 16:00 08/24/18 21:00 Duoneb - NEB 1 amp RQID [facility] Administration Chlorhexidine Gluconate 15 ml 08/17/18 22:00 08/24/18 22:07 Peridex - MM 15 ml BID [facility] Administration Clopidogrel Bisulfate 75 mg 08/10/18 10:00 08/24/18 09:58 Plavix - PO 75 mg DAILY [facility] Administration Heparin Sodium (Porcine) 5,000 unit 08/17/18 14:00 08/25/18 05:31 Heparin - SQ 5,000 unit TID [facility] Administration IV Flush 4 ml 08/23/18 11:37 Triple Lumen Flush IVPUSH PRN PRN Protocol Nafcillin Sodium 2 gm/ 100 mls @ 100 mls/hr 08/19/18 20:00 08/25/18 05:32 Dextrose IVPB 100 mls/hr Q4H-IV [facility] Administration Protocol Fentanyl 500 mcg/ Dextrose 100 mls @ 5 mls/hr 08/20/18 10:30 08/25/18 02:49 IVPB 50 mcg/hr TITR [facility] 10 mls/hr Administration Protocol 25 MCG/HR Propofol 1,000,000 mcg in 100 mls @ 16.98 mls/hr 08/20/18 10:39 08/24/18 16: 00 Diprivan - IVPB 10 mcg/kg/min TITR [facility] 3.396 mls/hr Administration Protocol 50 MCG/KG/MIN Midazolam HCl 100 mg/ Sodium 100 mls @ 1 mls/hr 08/21/18 10:00 08/24/18 23:32 Chloride IVPB 2 mg/hr TITR [facility] 2 mls/hr Administration Protocol 1 MG/HR Sodium Chloride 1,000 mls @ 100 mls/hr 08/23/18 08:15 08/24/18 09:56 Normal Saline - IV 100 mls/hr ASDIR [facility] Administration Norepinephrine Bitartrate 8, 500 mls @ 18.75 mls/hr 08/24/18 06:15 08/25/18 06:50 000 mcg/ Dextrose IV 2 mcg/min TITR [facility] 7.5 mls/hr Titration Protocol 5 MCG/MIN Meropenem 500 mg/ Dextrose 100 mls @ 200 mls/hr 08/24/18 18:00 08/25/18 01:29 IVPB 200 mls/hr Q8H-IV [facility] Administration Methylprednisolone Sodium Succinate 40 mg 08/23/18 10:00 08/24/18 09:58 Solu-Medrol - IVPUSH 40 mg DAILY [facility] Administration Pantoprazole Sodium 40 mg 08/11/18 13:15 08/24/18 09:57 Protonix Iv IVPUSH 40 mg DAILY [facility] Administration ASSESSMENT/PLAN: 67 year old female with HTN, CAD s/p CABG in 2009, PVD with B/L LE stents, HIV, HEP C, COPD and CHF. Admitted to the ICU for Acute hypoxic hypercapnic respiratory failure and dehydration. Neuro: - Currently sedated with Propofol, Fentanyl, and Versed drips. Will attempt to discontinue Versed drip given worsening renal function. Will attempt to titrate Fentanyl drip up and Propofol down given current pressor requirement. Endocrine: - Consult: Dr. Leach - Cr continues to trend upward. Suspect likely acute tubular necrosis given metabolic acidosis. - Hyponatremia this morning. Suspect diluational given worsening diffuse edema with decreased output over the past two days. Will decrease free water with tube feeds and d/c maintenance fluid. - Continue to trend electrolytes. Cardiovascular: - Consult: Dr. Fitzgerald - Requiring norepinephrine gtts to maintain MAP >65. Holding antihypertensives. - LV Diastolic/Systolic Dysfunction -c/w home Clopidogrel Pulm / Resp: - Acute on Chronic Hypoxic and Hypercapneic Respiratory Failure likely secondary to pneumonia. - Continue albuterol PRN. Standing QID nebs changed from albuterol to duonebs - Continue Solu-medrol at 40mg daily. - CXR this AM revealed slightly worsening infiltrates. Continued concern for worsening pneumonia versus ARDS. - Continues to require increased ventilatory support. Plateau pressure estimated to be in low 20s. PaO2/FiO2 ratio suggestive for severe ARDS. Will trial PEEP of 8 and FiO2 of 60. - SPO2 goal 90% - pH goal 7.2, allowing for permissive hypercapnia. ABG this AM concerning for acute respiratory acidosis with likely chronic metabolic acidosis (Delta ratio > 2). Will repeat ABG this afternoon to trend pH. - Pt not stable for bedside trach today. If pt tolerates new vent settings, will consider attempting trach placement tomorrow. Gastrointestinal: - Mild diarrhea noted in rectal tube. Possibly secondary to tube feeds. Infectious Disease: - Consult Dr. Khan - h/o HIV: continue HAART Therapy per ID - Leukocytosis uptrending overnight without fever or tachycardia. Likely secondary to worsening pneumonia versus other infectious process. Repeat urine and sputum cultures pending. Blood cultures; NGTD. - Continue Meropenem (Day 5) and Nafcillin (Day 7) for antibiotic coverage. Ceftazidine discontinued. Integumentary: - Decubitus ulcer. Dressing changes to be performed by nursing staff. FEN: -Tube Feed per dietary. Changes as discussed above. - D/C maintenance fluids Prophylaxis: -DVT: Heparin SQ -GI: Pantoprazole Code Status: - DNR Dispo: Continue to monitor the intubated pt in the ICU. Consider trach placement tomorrow. Andrez Tolentino MD, PGY1 ICU Consult Service Visit type - Emergency Visit Emergency Visit: No - New Patient This patient is new to me today: No - Critical Care Critical Care patient: Yes Total Critical Care Time (in minutes): 45 Critical Care Statement: The care of this patient involved high complexity decision making to prevent further life threatening deterioration of the patient 's condition and/or to evaluate & treat vital organ system(s) failure or risk of failure.
[2018-08-25] MEDS: ALBUTEROL SO4 2.5/IPRATROPIUM 0.5 INH SOL 3 ML VIAL.NEB. NEB SCH ×4 (08:23→20:38)
[2018-08-25] MEDS: methylPREDNISolone NA SUCC 40 MG/1 ML VIAL IVPUSH SCH (09:38)
[2018-08-25] MEDS: PANTOPRAZOLE SODIUM 40 MG VIAL IVPUSH SCH (09:39)
[2018-08-25] MEDS: SODIUM CHLORIDE 1,000 ML IV SCH (09:39)
[2018-08-25] MEDS: CLOPIDOGREL BISULFATE 75 MG TABLET (FP) PO SCH (09:39)
[2018-08-25] MEDS: PROPOFOL 1,000,000 MCG/100 ML VIAL IVPB SCH (09:40)
[2018-08-25] MEDS: CHLORHEXIDINE GLUCONATE 0.12% 15ML CUP MM SCH ×2 (09:41→21:12)
[2018-08-25] MEDS: ABACAVIR/DOLUTEGRAVIR/LAMIVUDI (TRIUMEQ) TABLET -NF PO SCH (10:08)
--- NOTE | 2018-08-25 11:07 | PN ---
Teaching Attending Note Name of Resident: Andrez Tolentino ATTENDING PHYSICIAN STATEMENT I saw and evaluated the patient. I reviewed the resident's note and discussed the case with the resident. I agree with the resident's findings and plan as documented. SUBJECTIVE: Pt seen and examined in the ICU. Remains intubated, sedated. On lower dose levophed gtt. Vented on volume assist control with 70% FiO2. OBJECTIVE: Vital Signs Period Temp Pulse Resp BP Sys/Buck Pulse Ox Last 24 Hr 97.2 F-99.3 F 88-104 25-26 91-137/51-89 98-100 Intake & Output 08/22/18 08/23/18 08/24/18 08/25/18 23:59 23:59 23:59 23:59 Intake Total 1470.8 5475.4 6762 3189 Output Total 100 1300 940 460 Balance 1370.8 4175.4 5822 2729 Weight 59.8 kg 59.5 kg 66.497 kg Gen: intubated, sedated Heart: RRR Lung: bilateral rhonchi Abd: soft, nontender Ext: + edema CBC, BMP 08/25/18 06:00 08/25/18 06:00 Active Medications Abacavir/Dolutegravir/Lamivudine (Triumeq (Non-Formulary)) 1 each PO DAILY [facility] Last Admin: 08/25/18 10:08 Dose: 1 each Acetaminophen (Tylenol Oral Solution -) 1,000 mg PO Q6H PRN PRN Reason: FEVER Last Admin: 08/23/18 23:31 Dose: 1,000 mg Albuterol/Ipratropium (Duoneb -) 1 amp NEB RQID [facility] Last Admin: 08/25/18 08:23 Dose: 1 amp Chlorhexidine Gluconate (Peridex -) 15 ml MM BID [facility] Last Admin: 08/25/18 09:41 Dose: 15 ml Clopidogrel Bisulfate (Plavix -) 75 mg PO DAILY [facility] Last Admin: 08/25/18 09:39 Dose: 75 mg Heparin Sodium (Porcine) (Heparin -) 5,000 unit SQ TID [facility] Last Admin: 08/25/18 05:31 Dose: 5,000 unit IV Flush (Triple Lumen Flush) 4 ml IVPUSH PRN PRN PRN Reason: Protocol Nafcillin Sodium 2 gm/ (Dextrose) 100 mls @ 100 mls/hr IVPB Q4H-IV [facility]; Protocol Last Admin: 08/25/18 09:38 Dose: 100 mls/hr Fentanyl 500 mcg/ Dextrose 100 mls @ 5 mls/hr IVPB TITR [facility]; Protocol Last Admin: 08/25/18 02:49 Dose: 50 mcg/hr, 10 mls/hr Propofol (Diprivan -) 1,000,000 mcg in 100 mls @ 16.98 mls/hr IVPB TITR [facility]; Protocol Last Admin: 08/25/18 09:40 Dose: 10.3 mcg/kg/min, 3.5 mls/hr Midazolam HCl 100 mg/ Sodium (Chloride) 100 mls @ 1 mls/hr IVPB TITR [facility]; Protocol Last Admin: 08/24/18 23:32 Dose: 2 mg/hr, 2 mls/hr Sodium Chloride (Normal Saline -) 1,000 mls @ 100 mls/hr IV ASDIR [facility] Last Admin: 08/25/18 09:39 Dose: 100 mls/hr Norepinephrine Bitartrate 8, (000 mcg/ Dextrose) 500 mls @ 18.75 mls/hr IV TITR [facility]; Protocol Last Titration: 08/25/18 06:50 Dose: 2 mcg/min, 7.5 mls/hr Meropenem 500 mg/ Dextrose 100 mls @ 200 mls/hr IVPB Q8H-IV [facility] Last Admin: 08/25/18 09:38 Dose: 200 mls/hr Methylprednisolone Sodium Succinate (Solu-Medrol -) 40 mg IVPUSH DAILY [facility] Last Admin: 08/25/18 09:38 Dose: 40 mg Pantoprazole Sodium (Protonix Iv) 40 mg IVPUSH DAILY [facility] Last Admin: 08/25/18 09:39 Dose: 40 mg ASSESSMENT AND PLAN: Acute on Chronic Hypoxic and Hypercapneic Respiratory Failure Acute COPD Exacerbation Pneumonia Septic Shock Acute Kidney Injury Metabolic and Respiratory Acidosis Pulmonary HTN LV Diastolic Dysfunction CAD s/p CABG +Troponins likely Demand Ischemia PAD HIV Hep C HTN Hypercholesterolemia - continue antibiotics per ID - f/u pending cultures - IVF to keep CVP 8-12 - titrate pressors to maintain MAP >65 - monitor urine output, creatinine - medrol taper - inhaled bronchodilators - taper FiO2, PEEP to keep SpO2 >90% - sedate for vent synchrony - low tidal ventilation <6cc/kg/IBW, keep Plat <30 - not a candidate for weaning at this time given oxygen requirements - enteral feeds - DVT/GI prophylaxis - continue ICU monitoring - pallative care eval, will need tracheostomy for prolonged intubation - poor overall prognosis, continue discussions regarding goals of care, pt now DNR critical care time spent in reviewing chart, evaluating patient and formulating plan 35 min
--- NOTE | 2018-08-25 11:39 | PN ---
Progress Note, Physician History of Present Illness: Remains sedated and intubated on ventilator support, fevers resolved on lower dose of Levophed gtt. - Current Medication List Current Medications: Active Medications Abacavir/Dolutegravir/Lamivudine (Triumeq (Non-Formulary)) 1 each PO DAILY [facility] Last Admin: 08/25/18 10:08 Dose: 1 each Acetaminophen (Tylenol Oral Solution -) 1,000 mg PO Q6H PRN PRN Reason: FEVER Last Admin: 08/23/18 23:31 Dose: 1,000 mg Albuterol/Ipratropium (Duoneb -) 1 amp NEB RQID [facility] Last Admin: 08/25/18 08:23 Dose: 1 amp Chlorhexidine Gluconate (Peridex -) 15 ml MM BID [facility] Last Admin: 08/25/18 09:41 Dose: 15 ml Clopidogrel Bisulfate (Plavix -) 75 mg PO DAILY [facility] Last Admin: 08/25/18 09:39 Dose: 75 mg Heparin Sodium (Porcine) (Heparin -) 5,000 unit SQ TID [facility] Last Admin: 08/25/18 05:31 Dose: 5,000 unit IV Flush (Triple Lumen Flush) 4 ml IVPUSH PRN PRN PRN Reason: Protocol Nafcillin Sodium 2 gm/ (Dextrose) 100 mls @ 100 mls/hr IVPB Q4H-IV [facility]; Protocol Last Admin: 08/25/18 09:38 Dose: 100 mls/hr Fentanyl 500 mcg/ Dextrose 100 mls @ 5 mls/hr IVPB TITR [facility]; Protocol Last Admin: 08/25/18 02:49 Dose: 50 mcg/hr, 10 mls/hr Propofol (Diprivan -) 1,000,000 mcg in 100 mls @ 16.98 mls/hr IVPB TITR [facility]; Protocol Last Admin: 08/25/18 09:40 Dose: 10.3 mcg/kg/min, 3.5 mls/hr Midazolam HCl 100 mg/ Sodium (Chloride) 100 mls @ 1 mls/hr IVPB TITR [facility]; Protocol Last Admin: 08/24/18 23:32 Dose: 2 mg/hr, 2 mls/hr Sodium Chloride (Normal Saline -) 1,000 mls @ 100 mls/hr IV ASDIR [facility] Last Admin: 08/25/18 09:39 Dose: 100 mls/hr Norepinephrine Bitartrate 8, (000 mcg/ Dextrose) 500 mls @ 18.75 mls/hr IV TITR [facility]; Protocol Last Titration: 08/25/18 06:50 Dose: 2 mcg/min, 7.5 mls/hr Meropenem 500 mg/ Dextrose 100 mls @ 200 mls/hr IVPB Q8H-IV [facility] Last Admin: 08/25/18 09:38 Dose: 200 mls/hr Methylprednisolone Sodium Succinate (Solu-Medrol -) 40 mg IVPUSH DAILY [facility] Last Admin: 08/25/18 09:38 Dose: 40 mg Pantoprazole Sodium (Protonix Iv) 40 mg IVPUSH DAILY [facility] Last Admin: 08/25/18 09:39 Dose: 40 mg - Objective Vital Signs: Vital Signs Temperature 98.3 F 08/25/18 06:00 Pulse Rate 94 H 08/25/18 08:57 Respiratory Rate 25 H 08/25/18 10:22 Blood Pressure 107/67 08/25/18 08:57 O2 Sat by Pulse Oximetry (%) 100 08/25/18 08:40 Constitutional: Yes: No Distress, Calm, Thin Neck: Yes: Supple Cardiovascular: Yes: Regular Rate and Rhythm Respiratory: Yes: Intubated, Mechanically Ventilated, Rhonchi Gastrointestinal: Yes: Soft, Hypoactive Bowel Sounds Edema: No Labs: CBC, BMP 08/25/18 06:00 08/25/18 06:00 INR, PTT INR 1.12 (0.83-1.09) H 08/25/18 06:00 - ....Imaging Chest X-ray: Report Reviewed (Congestion with pleural effusions) Problem List - Problems (1) Altered mental status, unspecified Code(s): R41.82 - ALTERED MENTAL STATUS, UNSPECIFIED Qualifiers: Altered mental status type: somnolence Qualified Code(s): R40.0 - Somnolence (2) CHF (congestive heart failure) Code(s): I50.9 - HEART FAILURE, UNSPECIFIED Qualifiers: Heart failure type: diastolic Heart failure chronicity: chronic Qualified Code(s): I50.32 - Chronic diastolic (congestive) heart failure (3) COPD with acute exacerbation Code(s): J44.1 - CHRONIC OBSTRUCTIVE PULMONARY DISEASE W (ACUTE) EXACERBATION (4) Elevated troponin I level Code(s): R74.8 - ABNORMAL LEVELS OF OTHER SERUM ENZYMES (5) Respiratory acidosis Code(s): E87.2 - ACIDOSIS (6) CAD (coronary artery disease) Code(s): I25.10 - ATHSCL HEART DISEASE OF [place] CORONARY ARTERY W/O ANG PCTRS Qualifiers: Coronary Disease-Associated Artery/Lesion type: [place] artery [place] vs. transplanted heart: [place] heart Associated angina: without angina Qualified Code(s): I25.10 - Atherosclerotic heart disease of [place] coronary artery without angina pectoris (7) Asymptomatic cholelithiasis Code(s): K80.20 - CALCULUS OF GALLBLADDER W/O CHOLECYSTITIS W/O OBSTRUCTION (8) Cor pulmonale, chronic Code(s): I27.81 - COR PULMONALE (CHRONIC) (9) HIV Code(s): Z21 - ASYMPTOMATIC HUMAN IMMUNODEFICIENCY VIRUS INFECTION STATUS (10) HTN (hypertension) Code(s): I10 - ESSENTIAL (PRIMARY) HYPERTENSION Qualifiers: Hypertension type: essential hypertension Qualified Code(s): I10 - Essential (primary) hypertension (11) Hyperlipidemia Code(s): E78.5 - HYPERLIPIDEMIA, UNSPECIFIED Qualifiers: Hyperlipidemia type: pure hypercholesterolemia Qualified Code(s): E78.00 - Pure hypercholesterolemia, unspecified; E78.0 - Pure hypercholesterolemia (12) PVD (peripheral vascular disease) Code(s): I73.9 - PERIPHERAL VASCULAR DISEASE, UNSPECIFIED (13) S/P CABG (coronary artery bypass graft) Code(s): Z95.1 - PRESENCE OF AORTOCORONARY BYPASS GRAFT Assessment/Plan Echo: 07/06/2018 Mod cLVH with preserved LV fxn, mod-severe RITIKA, severe TR, RVSP >60, RV volume overload with mod decreased RV fxn 1. Acute on chronic hypercapneic and hypoxemic respiratory failure on mechanical ventilation 2. Acute exacerbation of chronic obstructive pulmonary disease, PNA with MSSA septic shock 3. Right Heart Failure with Severe Pulmonary HTN 4. Acute on chronic class I-II NYHA classification LV failure related to diastolic dysfunction, resolving 5. CAD post CABG with evidence of demand ischemia angina pectoris 6. HTN 7. Hypercholesterolemia 8. PAD post SFA stent 9. Acute on CKD with hyperkalemia referable to hemodynamic alterations and ATN 10. Toxic metabolic encephelopathy, persistent 11. HIV and Hepatitis C 12. Cholelithiasis PLAN: 1. Wean Levophed to maintain MAP >65 2. Hold Losartan, Carvedilol, Hydralazine pending hemodynamics stability 3. Continue Plavix 75 qd 4. D/C Ranexa cannot be administered via NG tube, cannot be crushed 5. IV steroid and bronchodilator, taper FiO2, PEEP to keep SpO2 >90% 6. Antibiotic course per C&S 7. Overall poor prognosis, plan for tracheostomy/PEG insertion 8. Enteral feeds, DVT/GI prophylaxis
--- NOTE | 2018-08-25 13:57 | PN ---
Progress Note, Physician History of Present Illness: Pt seen and examined at bedside. She remains in the ICU. She remains intubated. - Current Medication List Current Medications: Active Medications Abacavir/Dolutegravir/Lamivudine (Triumeq (Non-Formulary)) 1 each PO DAILY [facility] Last Admin: 08/25/18 10:08 Dose: 1 each Acetaminophen (Tylenol Oral Solution -) 1,000 mg PO Q6H PRN PRN Reason: FEVER Last Admin: 08/23/18 23:31 Dose: 1,000 mg Albuterol/Ipratropium (Duoneb -) 1 amp NEB RQID [facility] Last Admin: 08/25/18 11:47 Dose: 1 amp Chlorhexidine Gluconate (Peridex -) 15 ml MM BID [facility] Last Admin: 08/25/18 09:41 Dose: 15 ml Clopidogrel Bisulfate (Plavix -) 75 mg PO DAILY [facility] Last Admin: 08/25/18 09:39 Dose: 75 mg Heparin Sodium (Porcine) (Heparin -) 5,000 unit SQ TID [facility] Last Admin: 08/25/18 05:31 Dose: 5,000 unit IV Flush (Triple Lumen Flush) 4 ml IVPUSH PRN PRN PRN Reason: Protocol Nafcillin Sodium 2 gm/ (Dextrose) 100 mls @ 100 mls/hr IVPB Q4H-IV [facility]; Protocol Last Admin: 08/25/18 09:38 Dose: 100 mls/hr Fentanyl 500 mcg/ Dextrose 100 mls @ 5 mls/hr IVPB TITR [facility]; Protocol Last Titration: 08/25/18 12:00 Dose: 60 mcg/hr, 12 mls/hr Propofol (Diprivan -) 1,000,000 mcg in 100 mls @ 16.98 mls/hr IVPB TITR [facility]; Protocol Last Admin: 08/25/18 09:40 Dose: 10.3 mcg/kg/min, 3.5 mls/hr Midazolam HCl 100 mg/ Sodium (Chloride) 100 mls @ 1 mls/hr IVPB TITR [facility]; Protocol Last Titration: 08/25/18 11:00 Dose: 0 mg/hr, 0 mls/hr Norepinephrine Bitartrate 8, (000 mcg/ Dextrose) 500 mls @ 18.75 mls/hr IV TITR [facility]; Protocol Last Titration: 08/25/18 06:50 Dose: 2 mcg/min, 7.5 mls/hr Meropenem 500 mg/ Dextrose 100 mls @ 200 mls/hr IVPB Q8H-IV [facility] Last Admin: 08/25/18 09:38 Dose: 200 mls/hr Methylprednisolone Sodium Succinate (Solu-Medrol -) 40 mg IVPUSH DAILY [facility] Last Admin: 08/25/18 09:38 Dose: 40 mg Pantoprazole Sodium (Protonix Iv) 40 mg IVPUSH DAILY [facility] Last Admin: 08/25/18 09:39 Dose: 40 mg - Objective Vital Signs: Vital Signs Temperature 98.3 F 08/25/18 10:00 Pulse Rate 97 H 08/25/18 12:00 Respiratory Rate 26 H 08/25/18 12:00 Blood Pressure 102/65 08/25/18 12:00 O2 Sat by Pulse Oximetry (%) 97 08/25/18 11:00 Constitutional: Yes: Calm Eyes: Yes: Conjunctiva Clear Cardiovascular: Yes: S1, S2 Respiratory: Yes: Mechanically Ventilated Gastrointestinal: Yes: Soft Genitourinary: Yes: Han Present Musculoskeletal: Yes: Muscle Weakness Edema: Yes Edema: LUE: 1+, RUE: 1+, LLE: Trace, RLE: Trace Integumentary: Yes: WNL Neurological: Yes: Lethargy Labs: CBC, BMP 08/25/18 06:00 08/25/18 06:00 INR, PTT INR 1.12 (0.83-1.09) H 08/25/18 06:00 - ....Imaging Chest X-ray: Report Reviewed Problem List - Problems (1) Acute renal failure Code(s): N17.9 - ACUTE KIDNEY FAILURE, UNSPECIFIED Qualifiers: Acute renal failure type: unspecified Qualified Code(s): N17.9 - Acute kidney failure, unspecified (2) Altered mental status, unspecified Code(s): R41.82 - ALTERED MENTAL STATUS, UNSPECIFIED Qualifiers: Altered mental status type: somnolence Qualified Code(s): R40.0 - Somnolence (3) CHF (congestive heart failure) Code(s): I50.9 - HEART FAILURE, UNSPECIFIED Qualifiers: Heart failure type: diastolic Heart failure chronicity: chronic Qualified Code(s): I50.32 - Chronic diastolic (congestive) heart failure (4) COPD with acute exacerbation Code(s): J44.1 - CHRONIC OBSTRUCTIVE PULMONARY DISEASE W (ACUTE) EXACERBATION (5) Hyperkalemia Code(s): E87.5 - HYPERKALEMIA Assessment/Plan Current Medications Generic Name Dose Route Start Last Admin Trade Name Freq PRN Reason Stop Dose Admin Abacavir/Dolutegravir/Lamivudine 1 each 08/10/18 14:00 08/25/18 10:08 Triumeq (Non-Formulary) PO 1 each DAILY [facility] Administration Acetaminophen 1,000 mg 08/16/18 16:11 08/23/18 23:31 Tylenol Oral Solution - PO 1,000 mg Q6H PRN Administration FEVER Albuterol/Ipratropium 1 amp 08/17/18 16:00 08/25/18 11:47 Duoneb - NEB 1 amp RQID [facility] Administration Chlorhexidine Gluconate 15 ml 08/17/18 22:00 08/25/18 09:41 Peridex - MM 15 ml BID [facility] Administration Clopidogrel Bisulfate 75 mg 08/10/18 10:00 08/25/18 09:39 Plavix - PO 75 mg DAILY [facility] Administration Heparin Sodium (Porcine) 5,000 unit 08/17/18 14:00 08/25/18 05:31 Heparin - SQ 5,000 unit TID [facility] Administration IV Flush 4 ml 08/23/18 11:37 Triple Lumen Flush IVPUSH PRN PRN Protocol Nafcillin Sodium 2 gm/ 100 mls @ 100 mls/hr 08/19/18 20:00 08/25/18 09:38 Dextrose IVPB 100 mls/hr Q4H-IV [facility] Administration Protocol Fentanyl 500 mcg/ Dextrose 100 mls @ 5 mls/hr 08/20/18 10:30 08/25/18 12:00 IVPB 60 mcg/hr TITR [facility] 12 mls/hr Titration Protocol 25 MCG/HR Propofol 1,000,000 mcg in 100 mls @ 16.98 mls/hr 08/20/18 10:39 08/25/18 09: 40 Diprivan - IVPB 10.3 mcg/kg/min TITR [facility] 3.5 mls/hr Administration Protocol 50 MCG/KG/MIN Midazolam HCl 100 mg/ Sodium 100 mls @ 1 mls/hr 08/21/18 10:00 08/25/18 11:00 Chloride IVPB 0 mg/hr TITR [facility] 0 mls/hr Titration Protocol 1 MG/HR Norepinephrine Bitartrate 8, 500 mls @ 18.75 mls/hr 08/24/18 06:15 08/25/18 06:50 000 mcg/ Dextrose IV 2 mcg/min TITR [facility] 7.5 mls/hr Titration Protocol 5 MCG/MIN Meropenem 500 mg/ Dextrose 100 mls @ 200 mls/hr 08/24/18 18:00 08/25/18 09:38 IVPB 200 mls/hr Q8H-IV [facility] Administration Methylprednisolone Sodium Succinate 40 mg 08/23/18 10:00 08/25/18 09:38 Solu-Medrol - IVPUSH 40 mg DAILY [facility] Administration Pantoprazole Sodium 40 mg 08/11/18 13:15 08/25/18 09:39 Protonix Iv IVPUSH 40 mg DAILY [facility] Administration Impression 1. KRISTIAN 2. Hyperkalemia 3. HIV 4. hyponatremia 5. altered mental status 6. pulm HTN 7. htn 8. pvd 9. resp acidosis 10. resp failure requiring intubation Plan - renal function continues to worsen - sodium is dropping - hold fluids - discussed with ICU team - pt appears more fluid overloaded - can give a dose of lasix of needed - repeat labs in am - vent support - likely has atn from prolonged hypotension - maintain map at 65 - monitor cvp - maintain han and monitor output - daily cxr - hold bp meds
[2018-08-25 14:11] LABS: ARTERIAL BLD GAS O2 SATURATION 97.9 % (95-98); ARTERIAL BLOOD GAS BASE EXCESS -9.6 meq/l (-2-2); ARTERIAL BLOOD GAS PO2 121 mmHg (80-105)
[2018-08-25 14:13] LABS: ALLENS TEST POSITIVE
[2018-08-25 14:15] LABS: ARTERIAL BLOOD GAS pH 7.15 (7.35-7.45)
[2018-08-25] MEDS: MIDAZOLAM 100 MG in SODIUM CHLORIDE 100 ML IVPB SCH (18:16)
--- NOTE | 2018-08-25 18:24 | PN ---
Progress Note, Physician History of Present Illness: intubated and sedated - Current Medication List Current Medications: Active Medications Abacavir/Dolutegravir/Lamivudine (Triumeq (Non-Formulary)) 1 each PO DAILY [facility] Last Admin: 08/25/18 10:08 Dose: 1 each Acetaminophen (Tylenol Oral Solution -) 1,000 mg PO Q6H PRN PRN Reason: FEVER Last Admin: 08/23/18 23:31 Dose: 1,000 mg Albuterol/Ipratropium (Duoneb -) 1 amp NEB RQID [facility] Last Admin: 08/25/18 16:06 Dose: 1 amp Chlorhexidine Gluconate (Peridex -) 15 ml MM BID [facility] Last Admin: 08/25/18 09:41 Dose: 15 ml Clopidogrel Bisulfate (Plavix -) 75 mg PO DAILY [facility] Last Admin: 08/25/18 09:39 Dose: 75 mg Heparin Sodium (Porcine) (Heparin -) 5,000 unit SQ TID [facility] Last Admin: 08/25/18 14:56 Dose: 5,000 unit IV Flush (Triple Lumen Flush) 4 ml IVPUSH PRN PRN PRN Reason: Protocol Nafcillin Sodium 2 gm/ (Dextrose) 100 mls @ 100 mls/hr IVPB Q4H-IV [facility]; Protocol Last Admin: 08/25/18 18:14 Dose: 100 mls/hr Fentanyl 500 mcg/ Dextrose 100 mls @ 5 mls/hr IVPB TITR [facility]; Protocol Last Admin: 08/25/18 18:15 Dose: Not Given Propofol (Diprivan -) 1,000,000 mcg in 100 mls @ 16.98 mls/hr IVPB TITR [facility]; Protocol Last Admin: 08/25/18 09:40 Dose: 10.3 mcg/kg/min, 3.5 mls/hr Norepinephrine Bitartrate 8, (000 mcg/ Dextrose) 500 mls @ 18.75 mls/hr IV TITR [facility]; Protocol Last Titration: 08/25/18 17:00 Dose: 1 mcg/min, 3.75 mls/hr Meropenem 500 mg/ Dextrose 100 mls @ 200 mls/hr IVPB Q8H-IV [facility] Last Admin: 08/25/18 18:14 Dose: 200 mls/hr Methylprednisolone Sodium Succinate (Solu-Medrol -) 40 mg IVPUSH DAILY [facility] Last Admin: 08/25/18 09:38 Dose: 40 mg Pantoprazole Sodium (Protonix Iv) 40 mg IVPUSH DAILY [facility] Last Admin: 08/25/18 09:39 Dose: 40 mg - Objective Vital Signs: Vital Signs Temperature 98 F 08/25/18 14:00 Pulse Rate 98 H 08/25/18 17:00 Respiratory Rate 26 H 08/25/18 17:00 Blood Pressure 119/70 08/25/18 17:00 O2 Sat by Pulse Oximetry (%) 97 08/25/18 11:00 Constitutional: Yes: No Distress HENT: Yes: Atraumatic Neck: Yes: Supple Cardiovascular: Yes: Regular Rate and Rhythm Respiratory: Yes: Rhonchi Extremities: Yes: WNL Edema: Yes Edema: LLE: Trace, RLE: Trace Neurological: Yes: Other (intubated and sedated) Labs: CBC, BMP 08/25/18 06:00 08/25/18 06:00 INR, PTT INR 1.12 (0.83-1.09) H 08/25/18 06:00 Problem List - Problems (1) Acute renal failure Assessment/Plan: cr is elevated renal on board Code(s): N17.9 - ACUTE KIDNEY FAILURE, UNSPECIFIED Qualifiers: Acute renal failure type: unspecified Qualified Code(s): N17.9 - Acute kidney failure, unspecified (2) Altered mental status, unspecified Code(s): R41.82 - ALTERED MENTAL STATUS, UNSPECIFIED Qualifiers: Altered mental status type: somnolence Qualified Code(s): R40.0 - Somnolence (3) COPD with acute exacerbation Assessment/Plan: steroids duo nebs INTUBATED Code(s): J44.1 - CHRONIC OBSTRUCTIVE PULMONARY DISEASE W (ACUTE) EXACERBATION (4) Elevated troponin I level Code(s): R74.8 - ABNORMAL LEVELS OF OTHER SERUM ENZYMES (5) Hyperkalemia Code(s): E87.5 - HYPERKALEMIA (6) COPD (chronic obstructive pulmonary disease) Code(s): J44.9 - CHRONIC OBSTRUCTIVE PULMONARY DISEASE, UNSPECIFIED Qualifiers: (7) HIV Assessment/Plan: continue home meds Code(s): Z21 - ASYMPTOMATIC HUMAN IMMUNODEFICIENCY VIRUS INFECTION STATUS (8) HTN (hypertension) Assessment/Plan: bp low due to sepsis on pressors Code(s): I10 - ESSENTIAL (PRIMARY) HYPERTENSION Qualifiers: Hypertension type: essential hypertension Qualified Code(s): I10 - Essential (primary) hypertension (9) Hyperlipidemia Code(s): E78.5 - HYPERLIPIDEMIA, UNSPECIFIED Qualifiers: Hyperlipidemia type: pure hypercholesterolemia Qualified Code(s): E78.00 - Pure hypercholesterolemia, unspecified; E78.0 - Pure hypercholesterolemia (10) PVD (peripheral vascular disease) Code(s): I73.9 - PERIPHERAL VASCULAR DISEASE, UNSPECIFIED (11) CHF (congestive heart failure) Code(s): I50.9 - HEART FAILURE, UNSPECIFIED Qualifiers: Heart failure type: diastolic Heart failure chronicity: chronic Qualified Code(s): I50.32 - Chronic diastolic (congestive) heart failure (12) Sepsis Assessment/Plan: on abx monitor wbc Code(s): A41.9 - SEPSIS, UNSPECIFIED ORGANISM (13) Respiratory acidosis Code(s): E87.2 - ACIDOSIS (14) Respiratory failure requiring intubation Code(s): J96.90 - RESPIRATORY FAILURE, UNSP, UNSP W HYPOXIA OR HYPERCAPNIA
--- NOTE | 2018-08-25 19:09 | PN ---
Progress Note, Physician History of Present Illness: UNRESPONSIVE ON VENTILATOR AFEBRILE NOW OFF PRESSORS WBC REMAINS ELEVATED BC MSSA SPUTUM C/S MSSA PSEUDOMONAS - Current Medication List Current Medications: Active Medications Abacavir/Dolutegravir/Lamivudine (Triumeq (Non-Formulary)) 1 each PO DAILY [facility] Last Admin: 08/25/18 10:08 Dose: 1 each Acetaminophen (Tylenol Oral Solution -) 1,000 mg PO Q6H PRN PRN Reason: FEVER Last Admin: 08/23/18 23:31 Dose: 1,000 mg Albuterol/Ipratropium (Duoneb -) 1 amp NEB RQID [facility] Last Admin: 08/25/18 16:06 Dose: 1 amp Chlorhexidine Gluconate (Peridex -) 15 ml MM BID [facility] Last Admin: 08/25/18 09:41 Dose: 15 ml Clopidogrel Bisulfate (Plavix -) 75 mg PO DAILY [facility] Last Admin: 08/25/18 09:39 Dose: 75 mg Heparin Sodium (Porcine) (Heparin -) 5,000 unit SQ TID [facility] Last Admin: 08/25/18 14:56 Dose: 5,000 unit IV Flush (Triple Lumen Flush) 4 ml IVPUSH PRN PRN PRN Reason: Protocol Nafcillin Sodium 2 gm/ (Dextrose) 100 mls @ 100 mls/hr IVPB Q4H-IV [facility]; Protocol Last Admin: 08/25/18 18:14 Dose: 100 mls/hr Fentanyl 500 mcg/ Dextrose 100 mls @ 5 mls/hr IVPB TITR [facility]; Protocol Last Admin: 08/25/18 18:15 Dose: Not Given Propofol (Diprivan -) 1,000,000 mcg in 100 mls @ 16.98 mls/hr IVPB TITR [facility]; Protocol Last Admin: 08/25/18 09:40 Dose: 10.3 mcg/kg/min, 3.5 mls/hr Norepinephrine Bitartrate 8, (000 mcg/ Dextrose) 500 mls @ 18.75 mls/hr IV TITR [facility]; Protocol Last Titration: 08/25/18 17:00 Dose: 1 mcg/min, 3.75 mls/hr Meropenem 500 mg/ Dextrose 100 mls @ 200 mls/hr IVPB Q8H-IV [facility] Last Admin: 04/18/19 18:14 Dose: 200 mls/hr Methylprednisolone Sodium Succinate (Solu-Medrol -) 40 mg IVPUSH DAILY [facility] Last Admin: 08/25/18 09:38 Dose: 40 mg Pantoprazole Sodium (Protonix Iv) 40 mg IVPUSH DAILY [facility] Last Admin: 08/25/18 09:39 Dose: 40 mg - Objective Vital Signs: Vital Signs Temperature 97.8 F 08/25/18 18:00 Pulse Rate 94 H 08/25/18 18:00 Respiratory Rate 25 H 08/25/18 18:44 Blood Pressure 112/65 08/25/18 18:00 O2 Sat by Pulse Oximetry (%) 97 08/25/18 11:00 Constitutional: Yes: No Distress Eyes: Yes: Conjunctiva Clear Cardiovascular: Yes: Regular Rate and Rhythm, S1, S2 Respiratory: Yes: Mechanically Ventilated Gastrointestinal: Yes: Normal Bowel Sounds, Soft. No: Tenderness Edema: LLE: 1+, RLE: 1+ Labs: CBC, BMP 08/25/18 06:00 08/25/18 06:00 INR, PTT INR 1.12 (0.83-1.09) H 08/25/18 06:00 Assessment/Plan SEPSIS MSSA BACTEREMIA ? PNEUMONIA ?ENDOCARDITIS RESPIRATORY FAILURE/ COPD EXACERBATION HCAP RENAL FAILURE MARKED LEUKOCYTOSIS HIV+ CD4 437 CONTINUE NAFCILLIN/ MEROPENEM HEMODYNAMIC/ VENTILATORY SUPPORT CONTINUE ART PROGNOSIS POOR
[2018-08-26] MEDS: MEROPENEM 500 MG in DEXTROSE 5%-WATER 100 ML IVPB SCH ×3 (01:34→17:20)
[2018-08-26] MEDS: NAFCILLIN - 2 GM in DEXTROSE 5%-WATER - 100 ML IVPB SCH ×6 (01:34→21:56)
[2018-08-26] MEDS ORDERED: fentaNYL CITRATE 250 MCG/5 ML VIAL ONE ×4 (05:25→23:42)
[2018-08-26] MEDS: HEPARIN NA (PORCINE) 5,000 UNITS/ML 1ML VIAL SQ SCH ×3 (05:34→21:56)
[2018-08-26] MEDS: BANATROL PLUS POWDER PACKET PO SCH ×3 (05:35→21:56)
[2018-08-26 06:33] LABS: BASO % 1.5 % (0-2.0); HEMATOCRIT 25.5 % (32.4-45.2); HEMOGLOBIN 8.5 GM/dL (10.7-15.3); LYMPH % 13.9 % (8-40); MCH 30.5 pg (25.7-33.7); MCHC 33.3 g/dl (32.0-36.0); MEAN CELL VOLUME 91.7 fl (80-96); MEAN PLT VOLUME 8.2 fl (7.5-11.1); MONO % 5.8 % (3.8-10.2); NEUT % 78.8 % (42.8-82.8); PLATELET COUNT 290 K/MM3 (134-434); RBC 2.78 M/mm3 (3.60-5.2); RDW 15.8 % (11.6-15.6); WHITE BLOOD COUNT 27.2 K/mm3 (4.0-10.0)
[2018-08-26] MEDS: NOREPINEPHRINE BITARTRATE 8,000 MCG in DEXTROSE 5%-WATER - 492 ML IV SCH (06:34)
[2018-08-26 07:49] LABS: ALBUMIN 1.3 g/dl (3.4-5.0); ALK PHOS 63 U/L (45-117); ANION GAP 15 MMOL/L (8-16); BILIRUBIN,TOTAL 1.8 mg/dL (0.2-1); BLOOD UREA NITROGEN 92 mg/dL (7-18); CALCIUM 8.1 mg/dL (8.5-10.1); CHLORIDE 89 mmol/L (98-107); CO2 21 mmol/L (21-32); CREATININE 3.7 mg/dL (0.55-1.3); GLUCOSE,RANDOM 204 mg/dL (74-106); MAGNESIUM 2.1 mg/dL (1.8-2.4); PHOSPHOROUS 8.9 mg/dL (2.5-4.9); POTASSIUM 4.5 mmol/L (3.5-5.1); SGOT/AST 26 U/L (15-37); SGPT/ALT 10 U/L (13-61); SODIUM 125 mmol/L (136-145); TOT PROT 5.2 g/dl (6.4-8.2)
--- NOTE | 2018-08-26 07:49 | PN ---
Physical Exam: SUBJECTIVE: Patient seen and examined HD# 18 Intubation Day 16 Overnight Events: No acute events reported overnight. BP remained stable on low dose Norepinephrine gtts. Afebrile. No tachycardia. SPO2 above goal on vent settings set yesterday. OBJECTIVE: Vital Signs Period Temp Pulse Resp BP Sys/Buck Pulse Ox Last 24 Hr 97.8 F-98.4 F 88-101 25-28 99-119/62-70 97-100 Intake & Output 08/25/18 08/26/18 08/26/18 23:59 07:59 15:59 Intake Total 2313.1 1002 Output Total 320 110 Balance 1993.1 892 Weight 68.674 kg Intake: IV 548.1 137 DIPRIVAN - 1,000,000 mcg 57.6 39 In 100 ml @ 50 MCG/KG/MIN 16.98 mls/hr IVPB TITR [facility] Rx#:[id number] Levophed - 8,000 Mcg In 78.5 D5w - 492 ml @ 5 MCG/MIN 18.75 mls/hr IV TITR [facility] Rx#:[id number] Normal Saline - 1,000 ml 200 @ 100 mls/hr IV ASDIR [facility] Rx#:[id number] RIJ 20 Sublimaze Injection - 500 192 98 Mcg In D5w - 90 ml @ 25 MCG/HR 5 mls/hr IVPB TITR [facility] Rx#:[id number] IVPB 300 200 Tube Feeding 505 245 Tube Irrigant 960 420 Output: Gastric Drainage 300 100 Urine 20 10 Torres 20 10 Other: Voiding Method Indwelling Catheter Indwelling Catheter Bowel Movement Yes Yes Weight Measurement Method Built in [facility] Lines: - R IJ (Day 3) - PIV Drains: - NG - Torres - Rectal tube Supplemental Oxygen: Ventilator: Mode: AC Vent rate: 25 Tv: 370 PEEP: 8 FiO2: 60% Physical Exams: GENERAL: The patient is sedated. Groans in response to painful stimuli but no localized withdrawal. HEAD: Normal with no signs of trauma. EYES: Closed. LUNGS: Intubated and mechanically ventilated. Deep and mildly rapid breathing. Breath sounds equal, with trace diffuse rhonchi. No wheezes or rales. HEART: Regular rate and regular rhythm, S1, S2 without murmur, rub or gallop. ABDOMEN: Soft and nondistended. EXTREMITIES: 2+ pulses, warm, well-perfused. 2+ edema to all extremities U>L. SKIN: Warm and dry. Stage 2 decubitus ulcer with dressing in place. Drips: - Fentanyl - Propofol - Levophed Anti Infectives: - Nafcillin Day 8 - Meropenem Day 9 Laboratory Results - last 24 hr 08/25/18 08/26/18 13:50 05:30 WBC 27.2 H RBC 2.78 L Hgb 8.5 L Hct 25.5 L MCV 91.7 MCH 30.5 MCHC 33.3 RDW 15.8 H Plt Count 290 MPV 8.2 Absolute Neuts (auto) 21.5 H Neutrophils % 78.8 Lymphocytes % 13.9 D Monocytes % 5.8 Eosinophils % 0.0 Basophils % 1.5 D Nucleated RBC % 0 Anticoagulation Therapy No Result Required. Puncture Site Right radial ABG pH 7.15 L* ABG pCO2 at Pt Temp 56.0 H ABG pO2 at Pt Temp 121 H ABG HCO3 18.7 L ABG O2 Sat (Measured) 97.9 ABG O2 Content 13.2 L ABG Base Excess -9.6 L Trevor Test Positive O2 Delivery Device No Result Required. Oxygen Flow Rate Yes Vent Mode No Result Required. Vent Rate No Result Required. Mechanical Rate No Result Required. Pressure Support Vent No Result Required. Active Medications Generic Name Dose Route Start Last Admin Trade Name Freq PRN Reason Stop Dose Admin Abacavir/Dolutegravir/Lamivudine 1 each 08/10/18 14:00 08/25/18 10:08 Triumeq (Non-Formulary) PO 1 each DAILY [facility] Administration Acetaminophen 1,000 mg 08/16/18 16:11 08/23/18 23:31 Tylenol Oral Solution - PO 1,000 mg Q6H PRN Administration FEVER Albuterol/Ipratropium 1 amp 08/17/18 16:00 08/25/18 20:38 Duoneb - NEB 1 amp RQID [facility] Administration Chlorhexidine Gluconate 15 ml 08/17/18 22:00 08/25/18 21:12 Peridex - MM 15 ml BID [facility] Administration Clopidogrel Bisulfate 75 mg 08/10/18 10:00 08/25/18 09:39 Plavix - PO 75 mg DAILY [facility] Administration Heparin Sodium (Porcine) 5,000 unit 08/17/18 14:00 08/26/18 05:34 Heparin - SQ 5,000 unit TID [facility] Administration IV Flush 4 ml 08/23/18 11:37 Triple Lumen Flush IVPUSH PRN PRN Protocol Nafcillin Sodium 2 gm/ 100 mls @ 100 mls/hr 08/19/18 20:00 08/26/18 05:35 Dextrose IVPB 100 mls/hr Q4H-IV [facility] Administration Protocol Fentanyl 500 mcg/ Dextrose 100 mls @ 5 mls/hr 08/20/18 10:30 08/25/18 18:15 IVPB Not Given TITR [facility] Protocol 25 MCG/HR Propofol 1,000,000 mcg in 100 mls @ 16.98 mls/hr 08/20/18 10:39 08/26/18 01: 00 Diprivan - IVPB 20 mcg/kg/min TITR [facility] 6.792 mls/hr Titration Protocol 50 MCG/KG/MIN Norepinephrine Bitartrate 8, 500 mls @ 18.75 mls/hr 08/24/18 06:15 08/26/18 06:34 000 mcg/ Dextrose IV Not Given TITR [facility] Protocol 5 MCG/MIN Meropenem 500 mg/ Dextrose 100 mls @ 200 mls/hr 08/24/18 18:00 08/26/18 01:34 IVPB 200 mls/hr Q8H-IV [facility] Administration Methylprednisolone Sodium Succinate 40 mg 08/23/18 10:00 08/25/18 09:38 Solu-Medrol - IVPUSH 40 mg DAILY [facility] Administration Pantoprazole Sodium 40 mg 08/11/18 13:15 08/25/18 09:39 Protonix Iv IVPUSH 40 mg DAILY [facility] Administration ASSESSMENT/PLAN: 67 year old female with HTN, CAD s/p CABG in 2009, PVD with B/L LE stents, HIV, HEP C, COPD and CHF. Admitted to the ICU for Acute hypoxic hypercapnic respiratory failure and dehydration. Neuro: - Currently sedated with Propofol and Fentanyl. Will attempt to titrate Fentanyl drip up and Propofol down given respiratory status and vasopressor requirement. - Not a good candidate for sedation holiday given respiratory status on sedation. Endocrine: - Consult: Dr. Leach - Cr continues to trend upward. Suspect likely acute tubular necrosis given metabolic acidosis. - Hyponatremia again this morning. Continue to suspect diluational given worsening diffuse edema with decreased output over the past three days. - Continue to trend electrolytes. - Can consider Lasix push if needed per nephrology. Cardiovascular: - Consult: Dr. Fitzgerald - Requiring norepinephrine gtts to maintain MAP >65. Holding antihypertensives. - LV Diastolic/Systolic Dysfunction -c/w home Clopidogrel Pulm / Resp: - Acute on Chronic Hypoxic and Hypercapneic Respiratory Failure likely secondary to pneumonia. - Continue albuterol PRN. - Continue Solu-medrol at 40mg daily. - CXR this AM revealed unchanged infiltrates. Continued concern for pneumonia versus ARDS. - Continues to require increased ventilatory support. Plateau pressure estimated to be in low 20s. PaO2/FiO2 ratio suggestive for severe ARDS. Will trial PEEP of 8 and FiO2 of 50. - SPO2 goal 90% - pH goal 7.2, allowing for permissive hypercapnia. ABG yesterday afternoon revealed some improvement in acidosis, pCO2, and pO2. Will repeat this afternoon. - Pt not stable for bedside trach again today. Can consider trach placement after this weekend. Gastrointestinal: - Mild diarrhea noted in rectal tube. Possibly secondary to tube feeds. Infectious Disease: - Consult Dr. Khan - h/o HIV: continue HAART Therapy per ID - Leukocytosis uptrending overnight without fever or tachycardia. Likely secondary to worsening pneumonia versus other infectious process. Repeat urine and sputum cultures pending. Blood cultures; NGTD. - Continue Meropenem and Nafcillin for antibiotic coverage. Integumentary: - Decubitus ulcer. Dressing changes to be performed by nursing staff. FEN: -Tube Feed per dietary. - D/C maintenance fluids Prophylaxis: -DVT: Heparin SQ -GI: Pantoprazole Code Status: - DNR Dispo: Continue to monitor the intubated pt in the ICU. Consider trach placement when more stable. Andrez Tolentino MD, PGY1 ICU Consult Service Visit type - Emergency Visit Emergency Visit: No - New Patient This patient is new to me today: No - Critical Care Critical Care patient: Yes Total Critical Care Time (in minutes): 41 Critical Care Statement: The care of this patient involved high complexity decision making to prevent further life threatening deterioration of the patient 's condition and/or to evaluate & treat vital organ system(s) failure or risk of failure.
[2018-08-26] MEDS: ALBUTEROL SO4 2.5/IPRATROPIUM 0.5 INH SOL 3 ML VIAL.NEB. NEB SCH ×4 (08:00→20:55)
[2018-08-26] MEDS ORDERED: PT OWN MED DRAWER 7, Y5N ONE ×5 (09:27→17:10)
[2018-08-26] MEDS: PANTOPRAZOLE SODIUM 40 MG VIAL IVPUSH SCH (10:07)
[2018-08-26] MEDS: CLOPIDOGREL BISULFATE 75 MG TABLET (FP) PO SCH (10:07)
[2018-08-26] MEDS: methylPREDNISolone NA SUCC 40 MG/1 ML VIAL IVPUSH SCH (10:07)
[2018-08-26] MEDS: ABACAVIR/DOLUTEGRAVIR/LAMIVUDI (TRIUMEQ) TABLET -NF PO SCH (10:08)
[2018-08-26] MEDS: CHLORHEXIDINE GLUCONATE 0.12% 15ML CUP MM SCH ×2 (10:09→21:56)
[2018-08-26 10:48] LABS: ANISOCYTOSIS 0; HELMET CELLS 0; HOWELL-JOLLY BODIES 0; MACROCYTOSIS 0; OVALOCYTE 0; PLATELET ESTIMATE NORMAL; ROULEAU 0; SICKELED CELLS 0; TARGET CELLS 0; TEAR DROP CELLS 0; TOXIC GRANULATION 0
--- NOTE | 2018-08-26 10:57 | PN ---
Teaching Attending Note Name of Resident: Andrez Tolentino ATTENDING PHYSICIAN STATEMENT I saw and evaluated the patient. I reviewed the resident's note and discussed the case with the resident. I agree with the resident's findings and plan as documented. SUBJECTIVE: Patient seen and examined in the ICU. Remains intubated, sedated. Intermittent need for low dose levophed drip, but currently. OBJECTIVE: Intake & Output 08/23/18 08/24/18 08/25/18 08/26/18 23:59 23:59 23:59 23:59 Intake Total 5475.4 6762 6109.1 1002 Output Total 1300 940 800 110 Balance 4175.4 5822 5309.1 892 Weight 131 lb 2.801 oz 146 lb 9.6 oz 151 lb 6.4 oz Last Vital Signs Temp Pulse Resp BP Pulse Ox 98.3 F 94 H 28 H 100/59 L 99 08/26/18 08:01 08/26/18 08:01 08/26/18 08:07 08/26/18 08:01 08/26/18 08:01 Active Medications Abacavir/Dolutegravir/Lamivudine (Triumeq (Non-Formulary)) 1 each PO DAILY [facility] Last Admin: 08/26/18 10:08 Dose: 1 each Acetaminophen (Tylenol Oral Solution -) 1,000 mg PO Q6H PRN PRN Reason: FEVER Last Admin: 08/23/18 23:31 Dose: 1,000 mg Albuterol/Ipratropium (Duoneb -) 1 amp NEB RQID [facility] Last Admin: 08/25/18 20:38 Dose: 1 amp Chlorhexidine Gluconate (Peridex -) 15 ml MM BID [facility] Last Admin: 08/26/18 10:09 Dose: 15 ml Clopidogrel Bisulfate (Plavix -) 75 mg PO DAILY [facility] Last Admin: 08/26/18 10:07 Dose: 75 mg Heparin Sodium (Porcine) (Heparin -) 5,000 unit SQ TID [facility] Last Admin: 08/26/18 05:34 Dose: 5,000 unit IV Flush (Triple Lumen Flush) 4 ml IVPUSH PRN PRN PRN Reason: Protocol Nafcillin Sodium 2 gm/ (Dextrose) 100 mls @ 100 mls/hr IVPB Q4H-IV [facility]; Protocol Last Admin: 08/26/18 10:09 Dose: 100 mls/hr Fentanyl 500 mcg/ Dextrose 100 mls @ 5 mls/hr IVPB TITR [facility]; Protocol Last Admin: 08/25/18 18:15 Dose: Not Given Propofol (Diprivan -) 1,000,000 mcg in 100 mls @ 16.98 mls/hr IVPB TITR [facility]; Protocol Last Titration: 08/26/18 01:00 Dose: 20 mcg/kg/min, 6.792 mls/hr Norepinephrine Bitartrate 8, (000 mcg/ Dextrose) 500 mls @ 18.75 mls/hr IV TITR [facility]; Protocol Last Admin: 08/26/18 06:34 Dose: Not Given Meropenem 500 mg/ Dextrose 100 mls @ 200 mls/hr IVPB Q8H-IV [facility] Last Admin: 08/26/18 09:51 Dose: 200 mls/hr Methylprednisolone Sodium Succinate (Solu-Medrol -) 40 mg IVPUSH DAILY [facility] Last Admin: 08/26/18 10:07 Dose: 40 mg Pantoprazole Sodium (Protonix Iv) 40 mg IVPUSH DAILY [facility] Last Admin: 08/26/18 10:07 Dose: 40 mg Gen: intubated, sedated Heart: RRR Lung: bilateral rhonchi Abd: soft, nontender Ext: + edema Laboratory Results - last 24 hr 08/25/18 08/26/18 08/26/18 13:50 05:30 05:30 WBC 27.2 H RBC 2.78 L Hgb 8.5 L Hct 25.5 L MCV 91.7 MCH 30.5 MCHC 33.3 RDW 15.8 H Plt Count 290 MPV 8.2 Absolute Neuts (auto) 21.5 H Neutrophils % 78.8 Neutrophils % (Manual) 95.0 H Band Neutrophils % 0.0 Lymphocytes % 13.9 D Lymphocytes % (Manual) 0.0 L Monocytes % 5.8 Monocytes % (Manual) 5 Eosinophils % 0.0 Eosinophils % (Manual) 0.0 Basophils % 1.5 D Basophils % (Manual) 0.0 Myelocytes % (Man) 0 D Promyelocytes % (Man) 0 Blast Cells % (Manual) 0 Nucleated RBC % 0 Metamyelocytes 0 Hypochromia 0 Toxic Granulation 0 Dohle Bodies 0 Platelet Estimate Normal Polychromasia 0 Poikilocytosis 0 Basophilic Stippling 0 Anisocytosis 0 Microcytosis 0 Macrocytosis 0 Spherocytes 0 Sickle Cells 0 Target Cells 0 Tear Drop Cells 0 Ovalocytes 0 Stomatocytes 0 Helmet Cells 0 [place] Bodies 0 [place] Rings 0 Claudia Cells 0 Acanthocytes (Spur) 0 Rouleaux 0 Fragmented RBCs 0 Schistocytes 0 Anticoagulation Therapy No Result Required. Puncture Site Right radial ABG pH 7.15 L* ABG pCO2 at Pt Temp 56.0 H ABG pO2 at Pt Temp 121 H ABG HCO3 18.7 L ABG O2 Sat (Measured) 97.9 ABG O2 Content 13.2 L ABG Base Excess -9.6 L Trevor Test Positive O2 Delivery Device No Result Required. Oxygen Flow Rate Yes Vent Mode No Result Required. Vent Rate No Result Required. Mechanical Rate No Result Required. Pressure Support Vent No Result Required. Sodium 125 L Potassium 4.5 Chloride 89 L Carbon Dioxide 21 Anion Gap 15 BUN 92 H Creatinine 3.7 H Creat Clearance w eGFR 12.22 Random Glucose 204 H Calcium 8.1 L Phosphorus 8.9 H Magnesium 2.1 Total Bilirubin 1.8 H AST 26 ALT 10 L Alkaline Phosphatase 63 Total Protein 5.2 L Albumin 1.3 L ASSESSMENT AND PLAN: Acute on Chronic Hypoxic and Hypercapneic Respiratory Failure Acute COPD Exacerbation Pneumonia Septic Shock Acute Kidney Injury Metabolic and Respiratory Acidosis Pulmonary HTN LV Diastolic Dysfunction CAD s/p CABG +Troponins likely [place]and Ischemia PAD HIV Hep C HTN Hypercholesterolemia - Check ABG - continue antibiotics per ID - IVF to keep CVP 8-12 - Monitoring off pressors for MAP >65 - monitor urine output, creatinine - medrol taper - inhaled bronchodilators - taper FiO2, PEEP to keep SpO2 >90% - sedate for vent synchrony - low tidal ventilation <6cc/kg/IBW, keep Plat <30 - not a candidate for weaning at this time given oxygen requirements - enteral feeds - DVT/GI prophylaxis - continue ICU monitoring - pallative care, will need tracheostomy for prolonged intubation, hopefully Trach early next week - poor overall prognosis, continue discussions regarding goals of care, pt now DNR Dr Suero Critical care time spent in reviewing chart, evaluating patient and formulating plan 35 min
[2018-08-26] MEDS ORDERED: PROPOFOL 1,000,000 MCG/100 ML VIAL IVPB SCH (10:58)
[2018-08-26] MEDS: FENTANYL INJECTION 500 MCG in DEXTROSE 5%-WATER - 90 ML IVPB SCH ×3 (11:00→17:43)
--- NOTE | 2018-08-26 12:23 | PN ---
Progress Note, Physician History of Present Illness: Pt seen and examined at bedside. She remains intubated. She is still oliguric. - Current Medication List Current Medications: Active Medications Abacavir/Dolutegravir/Lamivudine (Triumeq (Non-Formulary)) 1 each PO DAILY [facility] Last Admin: 08/26/18 10:08 Dose: 1 each Acetaminophen (Tylenol Oral Solution -) 1,000 mg PO Q6H PRN PRN Reason: FEVER Last Admin: 08/23/18 23:31 Dose: 1,000 mg Albuterol/Ipratropium (Duoneb -) 1 amp NEB RQID [facility] Last Admin: 08/25/18 20:38 Dose: 1 amp Chlorhexidine Gluconate (Peridex -) 15 ml MM BID [facility] Last Admin: 08/26/18 10:09 Dose: 15 ml Clopidogrel Bisulfate (Plavix -) 75 mg PO DAILY [facility] Last Admin: 08/26/18 10:07 Dose: 75 mg Heparin Sodium (Porcine) (Heparin -) 5,000 unit SQ TID [facility] Last Admin: 08/26/18 05:34 Dose: 5,000 unit IV Flush (Triple Lumen Flush) 4 ml IVPUSH PRN PRN PRN Reason: Protocol Nafcillin Sodium 2 gm/ (Dextrose) 100 mls @ 100 mls/hr IVPB Q4H-IV [facility]; Protocol Last Admin: 08/26/18 10:09 Dose: 100 mls/hr Fentanyl 500 mcg/ Dextrose 100 mls @ 5 mls/hr IVPB TITR [facility]; Protocol Last Titration: 08/26/18 11:04 Dose: 100 mcg/hr, 20 mls/hr Norepinephrine Bitartrate 8, (000 mcg/ Dextrose) 500 mls @ 18.75 mls/hr IV TITR [facility]; Protocol Last Admin: 08/26/18 06:34 Dose: Not Given Meropenem 500 mg/ Dextrose 100 mls @ 200 mls/hr IVPB Q8H-IV [facility] Last Admin: 08/26/18 09:51 Dose: 200 mls/hr Propofol (Diprivan -) 1,000,000 mcg in 100 mls @ 16.98 mls/hr IVPB TITR [facility]; Protocol Methylprednisolone Sodium Succinate (Solu-Medrol -) 40 mg IVPUSH DAILY [facility] Last Admin: 08/26/18 10:07 Dose: 40 mg Pantoprazole Sodium (Protonix Iv) 40 mg IVPUSH DAILY [facility] Last Admin: 08/26/18 10:07 Dose: 40 mg - Objective Vital Signs: Vital Signs Temperature 98.3 F 08/26/18 08:01 Pulse Rate 98 H 08/26/18 10:00 Respiratory Rate 34 H 08/26/18 10:00 Blood Pressure 95/62 08/26/18 10:00 O2 Sat by Pulse Oximetry (%) 99 08/26/18 08:01 Constitutional: Yes: Calm Eyes: Yes: Conjunctiva Clear HENT: Yes: Atraumatic Cardiovascular: Yes: S1, S2 Respiratory: Yes: Mechanically Ventilated Gastrointestinal: Yes: Soft Genitourinary: Yes: Han Present Musculoskeletal: Yes: Muscle Weakness Edema: Yes Edema: LUE: 1+, RUE: 1+, LLE: Trace, RLE: Trace Neurological: Yes: Lethargy Labs: CBC, BMP 08/26/18 05:30 08/26/18 05:30 INR, PTT INR 1.12 (0.83-1.09) H 08/25/18 06:00 - ....Imaging Chest X-ray: Report Reviewed Problem List - Problems (1) Acute renal failure Code(s): N17.9 - ACUTE KIDNEY FAILURE, UNSPECIFIED Qualifiers: Acute renal failure type: unspecified Qualified Code(s): N17.9 - Acute kidney failure, unspecified (2) Altered mental status, unspecified Code(s): R41.82 - ALTERED MENTAL STATUS, UNSPECIFIED Qualifiers: Altered mental status type: somnolence Qualified Code(s): R40.0 - Somnolence (3) CHF (congestive heart failure) Code(s): I50.9 - HEART FAILURE, UNSPECIFIED Qualifiers: Heart failure type: diastolic Heart failure chronicity: chronic Qualified Code(s): I50.32 - Chronic diastolic (congestive) heart failure (4) COPD with acute exacerbation Code(s): J44.1 - CHRONIC OBSTRUCTIVE PULMONARY DISEASE W (ACUTE) EXACERBATION (5) Hyperkalemia Code(s): E87.5 - HYPERKALEMIA Assessment/Plan Current Medications Generic Name Dose Route Start Last Admin Trade Name Freq PRN Reason Stop Dose Admin Abacavir/Dolutegravir/Lamivudine 1 each 08/10/18 14:00 08/26/18 10:08 Triumeq (Non-Formulary) PO 1 each DAILY [facility] Administration Acetaminophen 1,000 mg 08/16/18 16:11 08/23/18 23:31 Tylenol Oral Solution - PO 1,000 mg Q6H PRN Administration FEVER Albuterol/Ipratropium 1 amp 08/17/18 16:00 08/25/18 20:38 Duoneb - NEB 1 amp RQID [facility] Administration Chlorhexidine Gluconate 15 ml 08/17/18 22:00 08/26/18 10:09 Peridex - MM 15 ml BID [facility] Administration Clopidogrel Bisulfate 75 mg 08/10/18 10:00 08/26/18 10:07 Plavix - PO 75 mg DAILY [facility] Administration Heparin Sodium (Porcine) 5,000 unit 08/17/18 14:00 08/26/18 05:34 Heparin - SQ 5,000 unit TID [facility] Administration IV Flush 4 ml 08/23/18 11:37 Triple Lumen Flush IVPUSH PRN PRN Protocol Nafcillin Sodium 2 gm/ 100 mls @ 100 mls/hr 08/19/18 20:00 08/26/18 10:09 Dextrose IVPB 100 mls/hr Q4H-IV [facility] Administration Protocol Fentanyl 500 mcg/ Dextrose 100 mls @ 5 mls/hr 08/20/18 10:30 08/26/18 11:04 IVPB 100 mcg/hr TITR [facility] 20 mls/hr Titration Protocol 25 MCG/HR Norepinephrine Bitartrate 8, 500 mls @ 18.75 mls/hr 08/24/18 06:15 08/26/18 06:34 000 mcg/ Dextrose IV Not Given TITR [facility] Protocol 5 MCG/MIN Meropenem 500 mg/ Dextrose 100 mls @ 200 mls/hr 08/24/18 18:00 08/26/18 09:51 IVPB 200 mls/hr Q8H-IV [facility] Administration Propofol 1,000,000 mcg in 100 mls @ 16.98 mls/hr 08/26/18 10:58 Diprivan - IVPB TITR [facility] Protocol 50 MCG/KG/MIN Methylprednisolone Sodium Succinate 40 mg 08/23/18 10:00 08/26/18 10:07 Solu-Medrol - IVPUSH 40 mg DAILY [facility] Administration Pantoprazole Sodium 40 mg 08/11/18 13:15 08/26/18 10:07 Protonix Iv IVPUSH 40 mg DAILY [facility] Administration Impression 1. KRISTIAN 2. Hyperkalemia 3. HIV 4. hyponatremia 5. altered mental status 6. pulm HTN 7. htn 8. pvd 9. resp acidosis 10. resp failure requiring intubation Plan - renal function is worsening - urine output decreased - likely atn from hypotension - cont pressors to map 65 - monitor urine output - discussed with ICU team - monitor cvp - maintain han and monitor output - daily cxr - hold bp meds
[2018-08-26 12:34] LABS: ARTERIAL BLD GAS O2 SATURATION 87.6 % (95-98); ARTERIAL BLOOD GAS BASE EXCESS -10.6 meq/l (-2-2); ARTERIAL BLOOD GAS PCO2 57.1 mmHg (35-45); ARTERIAL BLOOD GAS PO2 63.1 mmHg (80-105)
[2018-08-26 12:36] LABS: ALLENS TEST POSITIVE
[2018-08-26 12:38] LABS: ARTERIAL BLOOD GAS pH 7.12 (7.35-7.45)
--- NOTE | 2018-08-26 15:58 | PN ---
Progress Note, Physician History of Present Illness: intubated and sedated - Current Medication List Current Medications: Active Medications Abacavir/Dolutegravir/Lamivudine (Triumeq (Non-Formulary)) 1 each PO DAILY [facility] Last Admin: 08/26/18 10:08 Dose: 1 each Acetaminophen (Tylenol Oral Solution -) 1,000 mg PO Q6H PRN PRN Reason: FEVER Last Admin: 08/23/18 23:31 Dose: 1,000 mg Albuterol/Ipratropium (Duoneb -) 1 amp NEB RQID [facility] Last Admin: 08/26/18 12:30 Dose: 1 amp Chlorhexidine Gluconate (Peridex -) 15 ml MM BID [facility] Last Admin: 08/26/18 10:09 Dose: 15 ml Clopidogrel Bisulfate (Plavix -) 75 mg PO DAILY [facility] Last Admin: 08/26/18 10:07 Dose: 75 mg Heparin Sodium (Porcine) (Heparin -) 5,000 unit SQ TID [facility] Last Admin: 08/26/18 13:01 Dose: 5,000 unit IV Flush (Triple Lumen Flush) 4 ml IVPUSH PRN PRN PRN Reason: Protocol Nafcillin Sodium 2 gm/ (Dextrose) 100 mls @ 100 mls/hr IVPB Q4H-IV [facility]; Protocol Last Admin: 08/26/18 14:48 Dose: 100 mls/hr Fentanyl 500 mcg/ Dextrose 100 mls @ 5 mls/hr IVPB TITR [facility]; Protocol Last Titration: 08/26/18 11:04 Dose: 100 mcg/hr, 20 mls/hr Norepinephrine Bitartrate 8, (000 mcg/ Dextrose) 500 mls @ 18.75 mls/hr IV TITR [facility]; Protocol Last Admin: 08/26/18 06:34 Dose: Not Given Meropenem 500 mg/ Dextrose 100 mls @ 200 mls/hr IVPB Q8H-IV [facility] Last Admin: 08/26/18 09:51 Dose: 200 mls/hr Propofol (Diprivan -) 1,000,000 mcg in 100 mls @ 16.98 mls/hr IVPB TITR [facility]; Protocol Last Admin: 08/26/18 14:47 Dose: Not Given Methylprednisolone Sodium Succinate (Solu-Medrol -) 40 mg IVPUSH DAILY [facility] Last Admin: 08/26/18 10:07 Dose: 40 mg Pantoprazole Sodium (Protonix Iv) 40 mg IVPUSH DAILY [facility] Last Admin: 08/26/18 10:07 Dose: 40 mg - Objective Vital Signs: Vital Signs Temperature 98.1 F 08/26/18 14:00 Pulse Rate 99 H 08/26/18 14:00 Respiratory Rate 25 H 08/26/18 14:00 Blood Pressure 100/57 L 08/26/18 14:00 O2 Sat by Pulse Oximetry (%) 99 08/26/18 08:01 HENT: Yes: Atraumatic Neck: Yes: Supple Cardiovascular: Yes: Regular Rate and Rhythm Respiratory: Yes: CTA Bilaterally Gastrointestinal: Yes: Normal Bowel Sounds Extremities: Yes: WNL Neurological: Yes: Alert, Oriented Labs: CBC, BMP 08/26/18 05:30 08/26/18 05:30 INR, PTT INR 1.12 (0.83-1.09) H 08/25/18 06:00 Problem List - Problems (1) Altered mental status, unspecified Code(s): R41.82 - ALTERED MENTAL STATUS, UNSPECIFIED Qualifiers: Altered mental status type: somnolence Qualified Code(s): R40.0 - Somnolence (2) COPD with acute exacerbation Assessment/Plan: steroids duo nebs INTUBATED Code(s): J44.1 - CHRONIC OBSTRUCTIVE PULMONARY DISEASE W (ACUTE) EXACERBATION (3) Elevated troponin I level Code(s): R74.8 - ABNORMAL LEVELS OF OTHER SERUM ENZYMES (4) Hyperkalemia Code(s): E87.5 - HYPERKALEMIA (5) COPD (chronic obstructive pulmonary disease) Code(s): J44.9 - CHRONIC OBSTRUCTIVE PULMONARY DISEASE, UNSPECIFIED Qualifiers: (6) HIV Assessment/Plan: continue home meds Code(s): Z21 - ASYMPTOMATIC HUMAN IMMUNODEFICIENCY VIRUS INFECTION STATUS (7) HTN (hypertension) Assessment/Plan: bp low due to sepsis on pressors Code(s): I10 - ESSENTIAL (PRIMARY) HYPERTENSION Qualifiers: Hypertension type: essential hypertension Qualified Code(s): I10 - Essential (primary) hypertension (8) Hyperlipidemia Code(s): E78.5 - HYPERLIPIDEMIA, UNSPECIFIED Qualifiers: Hyperlipidemia type: pure hypercholesterolemia Qualified Code(s): E78.00 - Pure hypercholesterolemia, unspecified; E78.0 - Pure hypercholesterolemia (9) PVD (peripheral vascular disease) Code(s): I73.9 - PERIPHERAL VASCULAR DISEASE, UNSPECIFIED (10) CHF (congestive heart failure) Code(s): I50.9 - HEART FAILURE, UNSPECIFIED Qualifiers: Heart failure type: diastolic Heart failure chronicity: chronic Qualified Code(s): I50.32 - Chronic diastolic (congestive) heart failure (11) Sepsis Assessment/Plan: on abx monitor wbc Code(s): A41.9 - SEPSIS, UNSPECIFIED ORGANISM (12) Respiratory acidosis Code(s): E87.2 - ACIDOSIS (13) Respiratory failure requiring intubation Assessment/Plan: intubated for trach next week Code(s): J96.90 - RESPIRATORY FAILURE, UNSP, UNSP W HYPOXIA OR HYPERCAPNIA Assessment/Plan cc time in icu 35 min
[2018-08-27] MEDS ORDERED: PT OWN MED DRAWER 7, Y5N ONE ×9 (02:25→23:11)
[2018-08-27] MEDS: ACETAMINOPHEN 650 MG/20.3 ML ORAL SOLUTION (CUPS) PO PRN (02:28)
[2018-08-27] MEDS: MEROPENEM 500 MG in DEXTROSE 5%-WATER 100 ML IVPB SCH ×3 (02:28→17:50)
[2018-08-27] MEDS: NAFCILLIN - 2 GM in DEXTROSE 5%-WATER - 100 ML IVPB SCH ×6 (02:28→23:11)
[2018-08-27] MEDS ORDERED: fentaNYL CITRATE 250 MCG/5 ML VIAL ONE ×4 (05:04→22:05)
[2018-08-27] MEDS: HEPARIN NA (PORCINE) 5,000 UNITS/ML 1ML VIAL SQ SCH ×3 (05:26→23:07)
[2018-08-27] MEDS: BANATROL PLUS POWDER PACKET PO SCH ×3 (05:26→23:08)
[2018-08-27 05:30] LABS: EPI CELLS >36 /HPF (0-5/HPF); URINE APPEARANCE TURBID; URINE BILIRUBIN 1+ (NEGATIVE); URINE CASTS 225 /lpf (0-8); URINE COLOR RED; URINE GLUCOSE (UA) NEGATIVE (NEGATIVE); URINE KETONE NEGATIVE (NEGATIVE); URINE LEUK ESTERASE 3+ (NEGATIVE); URINE NITRITE POSITIVE (NEGATIVE); URINE PROTEIN 3+ (NEGATIVE); URINE UROBILINOGEN 0.2 mg/dL (0.2-1.0); URINE WBC 535 /hpf (0-5)
[2018-08-27 05:54] LABS: URINE BACTERIA MODERATE /hpf (NEGATIVE); URINE CRYSTALS 0 /hpf; URINE RBC 1884.6 /hpf (0-4)
[2018-08-27 05:55] LABS: YEAST FEW (NEGATIVE)
[2018-08-27 06:25] LABS: BASO % 1.2 % (0-2.0); EOS % 0.1 % (0-4.5); HEMATOCRIT 22.9 % (32.4-45.2); HEMOGLOBIN 7.5 GM/dL (10.7-15.3); LYMPH % 9.1 % (8-40); MCH 29.9 pg (25.7-33.7); MCHC 32.8 g/dl (32.0-36.0); MEAN CELL VOLUME 91.1 fl (80-96); MEAN PLT VOLUME 8.1 fl (7.5-11.1); NEUT % 85.6 % (42.8-82.8); PLATELET COUNT 291 K/MM3 (134-434); RBC 2.52 M/mm3 (3.60-5.2); RDW 16.1 % (11.6-15.6)
[2018-08-27 06:37] LABS: WHITE BLOOD COUNT 31.7 K/mm3 (4.0-10.0)
[2018-08-27 06:49] LABS: ALBUMIN 1.3 g/dl (3.4-5.0); ALK PHOS 71 U/L (45-117); ANION GAP 15 MMOL/L (8-16); BILIRUBIN,TOTAL 2.2 mg/dL (0.2-1); BLOOD UREA NITROGEN 95 mg/dL (7-18); CALCIUM 7.9 mg/dL (8.5-10.1); CHLORIDE 88 mmol/L (98-107); CO2 19 mmol/L (21-32); CREATININE 4.1 mg/dL (0.55-1.3); GLUCOSE,RANDOM 185 mg/dL (74-106); POTASSIUM 4.5 mmol/L (3.5-5.1); SGOT/AST 27 U/L (15-37); SGPT/ALT 9 U/L (13-61); SODIUM 122 mmol/L (136-145); TOT PROT 5.3 g/dl (6.4-8.2)
--- NOTE | 2018-08-27 06:56 | PN ---
Progress Note (short form) - Note Progress Note: Chief Complaint: Events noted, notes reviewed, remains intubated and sedated, tachypnea noted, acidosis noted, persistent sinus tachycardia noted History of Present Illness: Seen and examined in the ICU. Events noted, notes reviewed, remains intubated and sedated, tachypnea noted, acidosis noted, persistent sinus tachycardia noted Overall poor prognosis, DNR, only on Fentanyl drip, Norepinephrine and Propofol D/C Elevated WBC counts with recurrent fever, sepsis syndrome - Current Medication List Current Medications Abacavir/Dolutegravir/Lamivudine (Triumeq (Non-Formulary)) 1 each PO DAILY [facility] Last Admin: 08/26/18 10:08 Dose: 1 each Acetaminophen (Tylenol Oral Solution -) 1,000 mg PO Q6H PRN PRN Reason: FEVER Last Admin: 08/27/18 02:28 Dose: 1,000 mg Albuterol/Ipratropium (Duoneb -) 1 amp NEB RQID [facility] Last Admin: 08/26/18 20:55 Dose: 1 amp Chlorhexidine Gluconate (Peridex -) 15 ml MM BID [facility] Last Admin: 08/26/18 21:56 Dose: 15 ml Clopidogrel Bisulfate (Plavix -) 75 mg PO DAILY [facility] Last Admin: 08/26/18 10:07 Dose: 75 mg Heparin Sodium (Porcine) (Heparin -) 5,000 unit SQ TID [facility] Last Admin: 08/27/18 05:26 Dose: 5,000 unit IV Flush (Triple Lumen Flush) 4 ml IVPUSH PRN PRN PRN Reason: Protocol Nafcillin Sodium 2 gm/ (Dextrose) 100 mls @ 100 mls/hr IVPB Q4H-IV [facility]; Protocol Last Admin: 08/27/18 05:26 Dose: 100 mls/hr Fentanyl 500 mcg/ Dextrose 100 mls @ 5 mls/hr IVPB TITR [facility]; Protocol Last Titration: 08/27/18 05:26 Dose: 100 mcg/hr, 20 mls/hr Norepinephrine Bitartrate 8, (000 mcg/ Dextrose) 500 mls @ 18.75 mls/hr IV TITR [facility]; Protocol Last Admin: 08/26/18 06:34 Dose: Not Given Meropenem 500 mg/ Dextrose 100 mls @ 200 mls/hr IVPB Q8H-IV [facility] Last Admin: 08/27/18 02:28 Dose: 200 mls/hr Propofol (Diprivan -) 1,000,000 mcg in 100 mls @ 16.98 mls/hr IVPB TITR [facility]; Protocol Last Admin: 08/26/18 14:47 Dose: Not Given Methylprednisolone Sodium Succinate (Solu-Medrol -) 40 mg IVPUSH DAILY [facility] Last Admin: 08/26/18 10:07 Dose: 40 mg Pantoprazole Sodium (Protonix Iv) 40 mg IVPUSH DAILY [facility] Last Admin: 08/26/18 10:07 Dose: 40 mg Review of Systems Unable to obtain - Objective Vital Signs: Last Vital Signs Temp Pulse Resp BP Pulse Ox 99.5 F 105 H 25 H 101/65 100 08/27/18 04:00 08/27/18 04:00 08/27/18 05:05 08/27/18 04:00 08/26/18 22:00 Intake & Output 08/24/18 08/25/18 08/26/18 08/27/18 23:59 23:59 23:59 23:59 Intake Total 6762 6109.1 2448 Output Total 940 800 230 Balance 5822 5309.1 2218 Weight 146 lb 9.6 oz 151 lb 6.4 oz Neck: Supple Negative JVD No Bruit Cardiovascular: S1 S2 Regular Rate and Rhythm Tachycardia Respiratory: Diminished Breath Sounds at the Bases Bilaterally Gastrointestinal: Soft Benign Normal Bowel Sounds Ext: Negative Edema Labs: ABG Results ABG pH 7.12 (7.35-7.45) L* 08/26/18 11:50 ABG pCO2 at Pt Temp 57.1 mmHg (35-45) H 08/26/18 11:50 ABG pO2 at Pt Temp 63.1 mmHg (80-105) L 08/26/18 11:50 ABG HCO3 17.9 mmol/L (22-27) L 08/26/18 11:50 ABG O2 Sat (Measured) 87.6 % (95-98) L 08/26/18 11:50 ABG O2 Content 9.9 % vol (15-22) L* 08/26/18 11:50 ABG Base Excess -10.6 meq/l (-2-2) L 08/26/18 11:50 CBC, BMP 08/27/18 05:30 08/27/18 05:30 Hepatic Panel Total Bilirubin 2.2 mg/dL (0.2-1) H 08/27/18 05:30 AST 27 U/L (15-37) 08/27/18 05:30 ALT 9 U/L (13-61) L 08/27/18 05:30 Alkaline Phosphatase 71 U/L (45-117) 08/27/18 05:30 Albumin 1.3 g/dl (3.4-5.0) L 08/27/18 05:30 INR, PTT INR 1.12 (0.83-1.09) H 08/25/18 06:00 Assessment/Plan ASSESSMENT: 1. Acute on chronic hypercapneic/hypoxemic respiratory failure on mechanical ventilation, profound metabolic acidosis, sepsis syndrome 2. Acute exacerbation of chronic obstructive pulmonary disease 3. Right Heart Failure with Severe Pulmonary HTN 4. Acute on chronic class I-II NYHA classification LV failure related to diastolic dysfunction 5. CAD post CABG with evidence of demand ischemic injury angina pectoris 7. HTN, currently normotensive 8. Hypercholesterolemia 9. PAD post SFA stent 10. Acute on CKD, pre-renal azotemia 11. Toxic metabolic encephelopathy 12. HIV and Hepatitis C 13. Cholelithiasis PLAN: 1. Continue Plavix 2. Steroid and bronchodilator as per critical care team 3. Antibiotic as per the primary team 4. Ventilator management as per the ICU team Overall poor prognosis Tabatha Hogan M.D.
--- NOTE | 2018-08-27 07:23 | PN ---
Progress Note (short form) - Note Progress Note: RENAL Pt is intubated, unable to give history Last Vital Signs Temp Pulse Resp BP Pulse Ox 99.6 F 107 H 25 H 99/60 100 08/27/18 06:00 08/27/18 06:00 08/27/18 07:02 08/27/18 06:00 08/26/18 22:00 lungs ilat air entry cvs s1s2 rr abd soft ext trace edema neuro sedated has a rectal tube CBC, BMP 08/27/18 05:30 08/27/18 05:30 Current Medications Generic Name Dose Route Start Last Admin Trade Name Freq PRN Reason Stop Dose Admin Abacavir/Dolutegravir/Lamivudine 1 each 08/10/18 14:00 08/26/18 10:08 Triumeq (Non-Formulary) PO 1 each DAILY [facility] Administration Acetaminophen 1,000 mg 08/16/18 16:11 08/27/18 02:28 Tylenol Oral Solution - PO 1,000 mg Q6H PRN Administration FEVER Albuterol/Ipratropium 1 amp 08/17/18 16:00 08/26/18 20:55 Duoneb - NEB 1 amp RQID [facility] Administration Chlorhexidine Gluconate 15 ml 08/17/18 22:00 08/26/18 21:56 Peridex - MM 15 ml BID [facility] Administration Clopidogrel Bisulfate 75 mg 08/10/18 10:00 08/26/18 10:07 Plavix - PO 75 mg DAILY [facility] Administration Heparin Sodium (Porcine) 5,000 unit 08/17/18 14:00 08/27/18 05:26 Heparin - SQ 5,000 unit TID [facility] Administration IV Flush 4 ml 08/23/18 11:37 Triple Lumen Flush IVPUSH PRN PRN Protocol Nafcillin Sodium 2 gm/ 100 mls @ 100 mls/hr 08/19/18 20:00 08/27/18 05:26 Dextrose IVPB 100 mls/hr Q4H-IV [facility] Administration Protocol Fentanyl 500 mcg/ Dextrose 100 mls @ 5 mls/hr 08/20/18 10:30 08/27/18 05:26 IVPB 100 mcg/hr TITR [facility] 20 mls/hr Titration Protocol 25 MCG/HR Norepinephrine Bitartrate 8, 500 mls @ 18.75 mls/hr 08/24/18 06:15 08/26/18 06:34 000 mcg/ Dextrose IV Not Given TITR [facility] Protocol 5 MCG/MIN Meropenem 500 mg/ Dextrose 100 mls @ 200 mls/hr 08/24/18 18:00 08/27/18 02:28 IVPB 200 mls/hr Q8H-IV [facility] Administration Propofol 1,000,000 mcg in 100 mls @ 16.98 mls/hr 08/26/18 10:58 08/26/18 14: 47 Diprivan - IVPB Not Given TITR [facility] Protocol 50 MCG/KG/MIN Methylprednisolone Sodium Succinate 40 mg 08/23/18 10:00 08/26/18 10:07 Solu-Medrol - IVPUSH 40 mg DAILY [facility] Administration Pantoprazole Sodium 40 mg 08/11/18 13:15 08/26/18 10:07 Protonix Iv IVPUSH 40 mg DAILY [facility] Administration Impression 1. KRISTIAN worsening 2. Hyperkalemia 3. HIV 4. hyponatremia- worsening and has a high urine sodium 5. altered mental status 6. pulm HTN 7. htn 8. pvd 9. resp and metabolic acidosis 10. resp failure requiring intubation Plan -continue pressors to maintain map over 60 -consider stopping HAART since it can cause several of her issues -all ivs should go in saline -if sodium drops any further start hypertonic saline at 30 cc per hour and monitor sodium -adjust vent to correct resp acidosis -would not give iv bicarb until resp acidosis corrected since bicarb potentially can worsen RA -head CT whenever possible MV
[2018-08-27 07:31] LABS: PHOSPHOROUS > 8.9 mg/dL (2.5-4.9)
[2018-08-27] MEDS: ALBUTEROL SO4 2.5/IPRATROPIUM 0.5 INH SOL 3 ML VIAL.NEB. NEB SCH ×4 (08:31→21:11)
--- NOTE | 2018-08-27 09:17 | PN ---
Progress Note (short form) - Note Progress Note: Pulm/CCM SUBJECTIVE: Patient seen and examined in the ICU. -off pressors -oliguric with rising BUN/Cr -hyponatremia -wbc up a bit OBJECTIVE: Vital Signs Temp 99.6 F 08/27/18 06:00 Pulse 105 H 08/27/18 08:28 Resp 28 H 08/27/18 08:28 BP 99/60 08/27/18 06:00 Pulse Ox 99 08/27/18 08:28 Intake & Output 08/26/18 08/26/18 08/27/18 11:59 23:59 11:59 Intake Total 1002 1446 655 Output Total 110 120 10 Balance 892 1326 645 Weight 68.674 kg 70.261 kg Intake: IV 137 376 140 DIPRIVAN - 1,000,000 mcg 39 56 In 100 ml @ 50 MCG/KG/MIN 16.98 mls/hr IVPB TITR [facility] Rx#:[id number] RIJ 40 Sublimaze Injection - 500 98 280 140 Mcg In D5w - 90 ml @ 25 MCG/HR 5 mls/hr IVPB TITR [facility] Rx#:[id number] IVPB 200 550 200 Tube Feeding 245 520 245 Tube Irrigant 420 70 Output: Gastric Drainage 100 Urine 10 120 10 Torres 10 120 10 Other: Voiding Method Indwelling Catheter Indwelling Catheter Bowel Movement Yes Yes: flexiseal 750 w/ saline flush Yes Body Mass Index (BMI) 22.9 Weight Measurement Method [facility] Current Medications Abacavir/Dolutegravir/Lamivudine (Triumeq (Non-Formulary)) 1 each PO DAILY [facility] Last Admin: 08/26/18 10:08 Dose: 1 each Acetaminophen (Tylenol Oral Solution -) 1,000 mg PO Q6H PRN PRN Reason: FEVER Last Admin: 08/27/18 02:28 Dose: 1,000 mg Albuterol/Ipratropium (Duoneb -) 1 amp NEB RQID [facility] Last Admin: 08/27/18 08:31 Dose: 1 amp Chlorhexidine Gluconate (Peridex -) 15 ml MM BID [facility] Last Admin: 08/26/18 21:56 Dose: 15 ml Clopidogrel Bisulfate (Plavix -) 75 mg PO DAILY [facility] Last Admin: 08/26/18 10:07 Dose: 75 mg Heparin Sodium (Porcine) (Heparin -) 5,000 unit SQ TID [facility] Last Admin: 08/27/18 05:26 Dose: 5,000 unit IV Flush (Triple Lumen Flush) 4 ml IVPUSH PRN PRN PRN Reason: Protocol Nafcillin Sodium 2 gm/ (Dextrose) 100 mls @ 100 mls/hr IVPB Q4H-IV [facility]; Protocol Last Admin: 08/27/18 05:26 Dose: 100 mls/hr Fentanyl 500 mcg/ Dextrose 100 mls @ 5 mls/hr IVPB TITR [facility]; Protocol Last Titration: 08/27/18 05:26 Dose: 100 mcg/hr, 20 mls/hr Norepinephrine Bitartrate 8, (000 mcg/ Dextrose) 500 mls @ 18.75 mls/hr IV TITR [facility]; Protocol Last Admin: 08/26/18 06:34 Dose: Not Given Meropenem 500 mg/ Dextrose 100 mls @ 200 mls/hr IVPB Q8H-IV [facility] Last Admin: 08/27/18 02:28 Dose: 200 mls/hr Methylprednisolone Sodium Succinate (Solu-Medrol -) 40 mg IVPUSH DAILY [facility] Last Admin: 08/26/18 10:07 Dose: 40 mg Pantoprazole Sodium (Protonix Iv) 40 mg IVPUSH DAILY [facility] Last Admin: 08/26/18 10:07 Dose: 40 mg Gen: intubated, sedated Heart: RRR Lung: bilateral rhonchi, dimished bases Abd: soft, nontender Ext: + edema Neuro: withdrawals to noxious stimuli, PERRL sluggish ABG Results ABG pH 7.12 (7.35-7.45) L* 08/26/18 11:50 ABG pCO2 at Pt Temp 57.1 mmHg (35-45) H 08/26/18 11:50 ABG pO2 at Pt Temp 63.1 mmHg (80-105) L 08/26/18 11:50 ABG HCO3 17.9 mmol/L (22-27) L 08/26/18 11:50 ABG O2 Sat (Measured) 87.6 % (95-98) L 08/26/18 11:50 ABG O2 Content 9.9 % vol (15-22) L* 08/26/18 11:50 ABG Base Excess -10.6 meq/l (-2-2) L 08/26/18 11:50 CBC, BMP 08/27/18 05:30 08/27/18 05:30 ASSESSMENT AND PLAN: Acute on Chronic Hypoxic and Hypercapneic Respiratory Failure Acute COPD Exacerbation Pneumonia Septic Shock Acute Kidney Injury Metabolic and Respiratory Acidosis Pulmonary HTN LV Diastolic Dysfunction CAD s/p CABG +Troponins likely Demand Ischemia PAD HIV Hep C HTN Hypercholesterolemia - Check ABG - continue antibiotics per ID - Monitoring off pressors for MAP >65 - monitor urine output, creatinine, would give trial of lasix - slow medrol taper - inhaled bronchodilators - taper FiO2, PEEP to keep SpO2 >90% - sedate for vent synchrony - low tidal ventilation <6cc/kg/IBW, keep Plat <30 - not a candidate for weaning at this time given oxygen requirements - enteral feeds - DVT/GI prophylaxis - continue ICU monitoring - pallative care, will need tracheostomy for prolonged intubation, hopefully Trach early next week - poor overall prognosis, continue discussions regarding goals of care, pt now DNR Dimitry ACNP [id number]
--- NOTE | 2018-08-27 09:36 | PN ---
Progress Note, Physician History of Present Illness: UNRESPONSIVE ON VENTILATOR SLIGHTLY TACHYPNEIC TEMP ELEVATION NOTED OFF PRESSORS WBC REMAINS ELEVATED CR INCREASED 4.1 HYPONATREMIC BC MSSA SPUTUM C/S MSSA PSEUDOMONAS - Current Medication List Current Medications: Active Medications Abacavir/Dolutegravir/Lamivudine (Triumeq (Non-Formulary)) 1 each PO DAILY [facility] Last Admin: 08/26/18 10:08 Dose: 1 each Acetaminophen (Tylenol Oral Solution -) 1,000 mg PO Q6H PRN PRN Reason: FEVER Last Admin: 08/27/18 02:28 Dose: 1,000 mg Albuterol/Ipratropium (Duoneb -) 1 amp NEB RQID [facility] Last Admin: 08/27/18 08:31 Dose: 1 amp Chlorhexidine Gluconate (Peridex -) 15 ml MM BID [facility] Last Admin: 08/26/18 21:56 Dose: 15 ml Clopidogrel Bisulfate (Plavix -) 75 mg PO DAILY [facility] Last Admin: 08/26/18 10:07 Dose: 75 mg Heparin Sodium (Porcine) (Heparin -) 5,000 unit SQ TID [facility] Last Admin: 08/27/18 05:26 Dose: 5,000 unit IV Flush (Triple Lumen Flush) 4 ml IVPUSH PRN PRN PRN Reason: Protocol Nafcillin Sodium 2 gm/ (Dextrose) 100 mls @ 100 mls/hr IVPB Q4H-IV [facility]; Protocol Last Admin: 08/27/18 05:26 Dose: 100 mls/hr Fentanyl 500 mcg/ Dextrose 100 mls @ 5 mls/hr IVPB TITR [facility]; Protocol Last Titration: 08/27/18 05:26 Dose: 100 mcg/hr, 20 mls/hr Norepinephrine Bitartrate 8, (000 mcg/ Dextrose) 500 mls @ 18.75 mls/hr IV TITR [facility]; Protocol Last Admin: 08/26/18 06:34 Dose: Not Given Meropenem 500 mg/ Dextrose 100 mls @ 200 mls/hr IVPB Q8H-IV [facility] Last Admin: 08/27/18 02:28 Dose: 200 mls/hr Methylprednisolone Sodium Succinate (Solu-Medrol -) 40 mg IVPUSH DAILY [facility] Last Admin: 08/26/18 10:07 Dose: 40 mg Pantoprazole Sodium (Protonix Iv) 40 mg IVPUSH DAILY [facility] Last Admin: 08/26/18 10:07 Dose: 40 mg - Objective Vital Signs: Vital Signs Temperature 99.6 F 08/27/18 06:00 Pulse Rate 105 H 08/27/18 08:28 Respiratory Rate 28 H 08/27/18 08:28 Blood Pressure 99/60 08/27/18 06:00 O2 Sat by Pulse Oximetry (%) 99 08/27/18 08:28 Constitutional: Yes: Mild Distress Cardiovascular: Yes: Regular Rate and Rhythm, S1, S2 Respiratory: Yes: Mechanically Ventilated Gastrointestinal: Yes: Normal Bowel Sounds, Soft. No: Tenderness Edema: Yes Edema: LUE: 1+, RUE: 1+, LLE: 1+, RLE: 1+ Labs: CBC, BMP 08/27/18 05:30 08/27/18 05:30 INR, PTT INR 1.12 (0.83-1.09) H 08/25/18 06:00 Assessment/Plan SEPSIS MSSA BACTEREMIA ? PNEUMONIA ?ENDOCARDITIS RESPIRATORY FAILURE/ COPD EXACERBATION HCAP RENAL FAILURE MARKED LEUKOCYTOSIS HIV+ CD4 437 CONTINUE NAFCILLIN/ MEROPENEM HEMODYNAMIC/ VENTILATORY SUPPORT CONTINUE ART PROGNOSIS POOR
[2018-08-27] MEDS: PANTOPRAZOLE SODIUM 40 MG VIAL IVPUSH SCH (10:27)
[2018-08-27] MEDS: CLOPIDOGREL BISULFATE 75 MG TABLET (FP) PO SCH (10:32)
[2018-08-27] MEDS: methylPREDNISolone NA SUCC 40 MG/1 ML VIAL IVPUSH SCH (10:33)
[2018-08-27] MEDS: CHLORHEXIDINE GLUCONATE 0.12% 15ML CUP MM SCH ×2 (10:33→23:08)
[2018-08-27] MEDS: ABACAVIR/DOLUTEGRAVIR/LAMIVUDI (TRIUMEQ) TABLET -NF PO SCH (10:37)
[2018-08-27 11:08] LABS: ANISOCYTOSIS 1+; MACROCYTOSIS 0; PLATELET ESTIMATE NORMAL
[2018-08-27] MEDS: FENTANYL INJECTION 500 MCG in DEXTROSE 5%-WATER - 90 ML IVPB SCH ×3 (11:26→17:25)
[2018-08-27] MEDS: NOREPINEPHRINE BITARTRATE 8,000 MCG in DEXTROSE 5%-WATER - 492 ML IV SCH ×2 (11:27→19:08)
[2018-08-27 11:49] LABS: ANION GAP 16 MMOL/L (8-16); BLOOD UREA NITROGEN 98 mg/dL (7-18); CALCIUM 7.7 mg/dL (8.5-10.1); CHLORIDE 89 mmol/L (98-107); CO2 19 mmol/L (21-32); CREATININE 4.3 mg/dL (0.55-1.3); GLUCOSE,RANDOM 168 mg/dL (74-106); POTASSIUM 4.4 mmol/L (3.5-5.1); SODIUM 125 mmol/L (136-145)
[2018-08-27] MEDS ORDERED: FUROSEMIDE 40 MG/4 ML INJECTABLE VIAL IVPUSH ONE (14:34)
[2018-08-27] MEDS ORDERED: NOREPINEPHRINE BITARTRATE 4 MG/4 ML ML IV ONE (18:58)
[2018-08-27] MEDS ORDERED: SODIUM BICARBONATE 8.4% - 100 ML ONE (19:17)
[2018-08-27] MEDS ORDERED: SODIUM CHLORIDE 250 ML IV PRN (19:22)
[2018-08-27] MEDS ORDERED: SODIUM BICARBONATE 8.4% 50 MEQ/50 ML VIAL IV ONE (19:30)
--- NOTE | 2018-08-27 21:48 | PN ---
Progress Note, Physician - Current Medication List Current Medications: Active Medications Abacavir/Dolutegravir/Lamivudine (Triumeq (Non-Formulary)) 1 each PO DAILY [facility] Last Admin: 08/27/18 10:37 Dose: 1 each Acetaminophen (Tylenol Oral Solution -) 1,000 mg PO Q6H PRN PRN Reason: FEVER Last Admin: 08/27/18 02:28 Dose: 1,000 mg Albuterol/Ipratropium (Duoneb -) 1 amp NEB RQID [facility] Last Admin: 08/27/18 21:11 Dose: 1 amp Chlorhexidine Gluconate (Peridex -) 15 ml MM BID [facility] Last Admin: 08/27/18 10:33 Dose: 15 ml Clopidogrel Bisulfate (Plavix -) 75 mg PO DAILY [facility] Last Admin: 08/27/18 10:32 Dose: 75 mg Heparin Sodium (Porcine) (Heparin -) 5,000 unit SQ TID [facility] Last Admin: 08/27/18 14:15 Dose: 5,000 unit IV Flush (Triple Lumen Flush) 4 ml IVPUSH PRN PRN PRN Reason: Protocol IV Flush (Triple Lumen Flush) 4 ml IVPUSH BID [facility] Nafcillin Sodium 2 gm/ (Dextrose) 100 mls @ 100 mls/hr IVPB Q4H-IV [facility]; Protocol Last Admin: 08/27/18 18:26 Dose: 100 mls/hr Fentanyl 500 mcg/ Dextrose 100 mls @ 5 mls/hr IVPB TITR [facility]; Protocol Last Titration: 08/27/18 18:07 Dose: 100 mcg/hr, 20 mls/hr Norepinephrine Bitartrate 8, (000 mcg/ Dextrose) 500 mls @ 18.75 mls/hr IV TITR [facility]; Protocol Last Admin: 08/27/18 19:08 Dose: 6 mcg/min, 22.5 mls/hr Meropenem 500 mg/ Dextrose 100 mls @ 200 mls/hr IVPB Q8H-IV [facility] Last Admin: 08/27/18 17:50 Dose: 200 mls/hr Sodium Chloride (Normal Saline -) 250 mls @ 3,000 mls/hr IV PRN PRN PRN Reason: Hypotension during Dialysis Stop: 08/28/18 19:22 Methylprednisolone Sodium Succinate (Solu-Medrol -) 40 mg IVPUSH DAILY [facility] Last Admin: 08/27/18 10:33 Dose: 40 mg Pantoprazole Sodium (Protonix Iv) 40 mg IVPUSH DAILY [facility] Last Admin: 08/27/18 10:27 Dose: 40 mg - Objective Vital Signs: Vital Signs Temperature 98.8 F 08/27/18 19:28 Pulse Rate 117 H 08/27/18 21:00 Respiratory Rate 32 H 08/27/18 21:28 Blood Pressure 96/56 L 08/27/18 21:00 O2 Sat by Pulse Oximetry (%) 98 08/27/18 20:57 Labs: CBC, BMP 08/27/18 05:30 08/27/18 11:20 INR, PTT INR 1.12 (0.83-1.09) H 08/25/18 06:00 Problem List - Problems (1) Altered mental status, unspecified Code(s): R41.82 - ALTERED MENTAL STATUS, UNSPECIFIED Qualifiers: Altered mental status type: somnolence Qualified Code(s): R40.0 - Somnolence (2) CHF (congestive heart failure) Code(s): I50.9 - HEART FAILURE, UNSPECIFIED Qualifiers: Heart failure type: diastolic Heart failure chronicity: chronic Qualified Code(s): I50.32 - Chronic diastolic (congestive) heart failure (3) COPD with acute exacerbation Code(s): J44.1 - CHRONIC OBSTRUCTIVE PULMONARY DISEASE W (ACUTE) EXACERBATION (4) Elevated troponin I level Code(s): R74.8 - ABNORMAL LEVELS OF OTHER SERUM ENZYMES (5) Sepsis Code(s): A41.9 - SEPSIS, UNSPECIFIED ORGANISM (6) HIV Code(s): Z21 - ASYMPTOMATIC HUMAN IMMUNODEFICIENCY VIRUS INFECTION STATUS (7) HTN (hypertension) Code(s): I10 - ESSENTIAL (PRIMARY) HYPERTENSION Qualifiers: Hypertension type: essential hypertension Qualified Code(s): I10 - Essential (primary) hypertension (8) Hyperlipidemia Code(s): E78.5 - HYPERLIPIDEMIA, UNSPECIFIED Qualifiers: Hyperlipidemia type: pure hypercholesterolemia Qualified Code(s): E78.00 - Pure hypercholesterolemia, unspecified; E78.0 - Pure hypercholesterolemia
[2018-08-27] MEDS: TRIPLE LUMEN FLUSH 4 ML ML IVPUSH SCH (23:09)
[2018-08-28] MEDS ORDERED: PT OWN MED DRAWER 7, Y5N ONE ×7 (02:58→22:46)
[2018-08-28] MEDS: MEROPENEM 500 MG in DEXTROSE 5%-WATER 100 ML IVPB SCH ×3 (03:11→17:11)
[2018-08-28] MEDS: NAFCILLIN - 2 GM in DEXTROSE 5%-WATER - 100 ML IVPB SCH ×6 (03:11→23:02)
[2018-08-28] MEDS: HEPARIN NA (PORCINE) 5,000 UNITS/ML 1ML VIAL SQ SCH ×3 (05:56→22:48)
[2018-08-28] MEDS: BANATROL PLUS POWDER PACKET PO SCH ×3 (05:56→22:53)
[2018-08-28] MEDS: NOREPINEPHRINE BITARTRATE 8,000 MCG in DEXTROSE 5%-WATER - 492 ML IV SCH ×2 (06:00→21:30)
[2018-08-28 06:03] LABS: HEMATOCRIT 20.3 % (32.4-45.2); MCH 30.1 pg (25.7-33.7); MCHC 33.8 g/dl (32.0-36.0); MEAN CELL VOLUME 88.9 fl (80-96); MEAN PLT VOLUME 8.1 fl (7.5-11.1); PLATELET COUNT 282 K/MM3 (134-434); RBC 2.29 M/mm3 (3.60-5.2); RDW 15.7 % (11.6-15.6)
[2018-08-28 06:29] LABS: ALBUMIN 1.3 g/dl (3.4-5.0); ALK PHOS 72 U/L (45-117); ANION GAP 12 MMOL/L (8-16); BILIRUBIN,DIRECT 0.7 mg/dL (0.0-0.2); BILIRUBIN,TOTAL 2.1 mg/dL (0.2-1); BLOOD UREA NITROGEN 61 mg/dL (7-18); CALCIUM 7.8 mg/dL (8.5-10.1); CHLORIDE 92 mmol/L (98-107); CO2 25 mmol/L (21-32); CREATININE 3.1 mg/dL (0.55-1.3); GLUCOSE,RANDOM 161 mg/dL (74-106); MAGNESIUM 1.9 mg/dL (1.8-2.4); PHOSPHOROUS 6.6 mg/dL (2.5-4.9); POTASSIUM 3.7 mmol/L (3.5-5.1); SGOT/AST 33 U/L (15-37); SGPT/ALT 11 U/L (13-61); SODIUM 129 mmol/L (136-145); TOT PROT 5.3 g/dl (6.4-8.2)
[2018-08-28 06:44] LABS: HEMOGLOBIN 6.9 GM/dL (10.7-15.3); WHITE BLOOD COUNT 34.3 K/mm3 (4.0-10.0)
[2018-08-28 06:51] LABS: ARTERIAL BLD GAS O2 SATURATION 97.5 % (95-98); ARTERIAL BLOOD GAS PCO2 59.1 mmHg (35-45); ARTERIAL BLOOD GAS PO2 117 mmHg (80-105); ARTERIAL BLOOD GAS pH 7.22 (7.35-7.45)
[2018-08-28 06:52] LABS: ALLENS TEST POSITIVE
--- NOTE | 2018-08-28 07:02 | PN ---
Progress Note (short form) - Note Progress Note: Chief Complaint: Events noted, notes reviewed, remains intubated and sedated, pressors re-initiated, HD initiated yesterday for management of acidosis, tachypnea noted, persistent sinus tachycardia noted History of Present Illness: Seen and examined in the ICU. Events noted, notes reviewed, remains intubated and sedated, pressors re-initiated, HD initiated yesterday for management of acidosis, tachypnea noted, persistent sinus tachycardia noted Overall poor prognosis, DNR Persistently elevated WBC counts, sepsis syndrome - Current Medication List Current Medications Abacavir/Dolutegravir/Lamivudine (Triumeq (Non-Formulary)) 1 each PO DAILY [facility] Last Admin: 08/27/18 10:37 Dose: 1 each Acetaminophen (Tylenol Oral Solution -) 1,000 mg PO Q6H PRN PRN Reason: FEVER Last Admin: 08/27/18 02:28 Dose: 1,000 mg Albuterol/Ipratropium (Duoneb -) 1 amp NEB RQID [facility] Last Admin: 08/27/18 21:11 Dose: 1 amp Chlorhexidine Gluconate (Peridex -) 15 ml MM BID [facility] Last Admin: 08/27/18 23:08 Dose: 15 ml Clopidogrel Bisulfate (Plavix -) 75 mg PO DAILY [facility] Last Admin: 08/27/18 10:32 Dose: 75 mg Heparin Sodium (Porcine) (Heparin -) 5,000 unit SQ TID [facility] Last Admin: 08/28/18 05:56 Dose: 5,000 unit IV Flush (Triple Lumen Flush) 4 ml IVPUSH PRN PRN PRN Reason: Protocol IV Flush (Triple Lumen Flush) 4 ml IVPUSH BID [facility] Last Admin: 08/27/18 23:09 Dose: 4 ml Nafcillin Sodium 2 gm/ (Dextrose) 100 mls @ 100 mls/hr IVPB Q4H-IV [facility]; Protocol Last Admin: 08/28/18 05:57 Dose: 100 mls/hr Fentanyl 500 mcg/ Dextrose 100 mls @ 5 mls/hr IVPB TITR [facility]; Protocol Last Titration: 08/27/18 18:07 Dose: 100 mcg/hr, 20 mls/hr Norepinephrine Bitartrate 8, (000 mcg/ Dextrose) 500 mls @ 18.75 mls/hr IV TITR [facility]; Protocol Last Admin: 08/28/18 06:00 Dose: 2 mcg/min, 7.5 mls/hr Meropenem 500 mg/ Dextrose 100 mls @ 200 mls/hr IVPB Q8H-IV [facility] Last Admin: 08/28/18 03:11 Dose: 200 mls/hr Sodium Chloride (Normal Saline -) 250 mls @ 3,000 mls/hr IV PRN PRN PRN Reason: Hypotension during Dialysis Stop: 08/28/18 19:22 Methylprednisolone Sodium Succinate (Solu-Medrol -) 40 mg IVPUSH DAILY [facility] Last Admin: 08/27/18 10:33 Dose: 40 mg Pantoprazole Sodium (Protonix Iv) 40 mg IVPUSH DAILY [facility] Last Admin: 08/27/18 10:27 Dose: 40 mg Review of Systems Unable to obtain - Objective Vital Signs: Last Vital Signs Temp Pulse Resp BP Pulse Ox 98.8 F 124 H 30 H 127/75 100 08/27/18 19:28 08/28/18 05:57 08/28/18 06:51 08/28/18 05:57 08/27/18 22:00 Intake & Output 08/25/18 08/26/18 08/27/18 08/28/18 23:59 23:59 23:59 23:59 Intake Total 6109.1 2448 1395 Output Total 800 230 35 Balance 5309.1 2218 1360 Weight 146 lb 9.6 oz 151 lb 6.4 oz 154 lb 14.4 oz Neck: Supple Negative JVD No Bruit Cardiovascular: S1 S2 Regular Rate and Rhythm Tachycardia Respiratory: Diminished Breath Sounds at the Bases Bilaterally Bilateral Course Rhonchi Gastrointestinal: Soft Benign Normal Bowel Sounds Ext: Negative Edema Labs: ABG Results ABG pH 7.22 (7.35-7.45) L 08/28/18 06:45 ABG pCO2 at Pt Temp 59.1 mmHg (35-45) H 08/28/18 06:45 ABG pO2 at Pt Temp 117 mmHg (80-105) H 08/28/18 06:45 ABG HCO3 23.1 mmol/L (22-27) 08/28/18 06:45 ABG O2 Sat (Measured) 97.5 % (95-98) 08/28/18 06:45 ABG O2 Content 9.6 % vol (15-22) L* 08/28/18 06:45 ABG Base Excess -4.0 meq/l (-2-2) L 08/28/18 06:45 CBC, BMP 08/28/18 05:30 08/28/18 05:30 Hepatic Panel Total Bilirubin 2.1 mg/dL (0.2-1) H 08/28/18 05:30 Direct Bilirubin 0.7 mg/dL (0.0-0.2) H 08/28/18 05:30 AST 33 U/L (15-37) 08/28/18 05:30 ALT 11 U/L (13-61) L 08/28/18 05:30 Alkaline Phosphatase 72 U/L (45-117) 08/28/18 05:30 Albumin 1.3 g/dl (3.4-5.0) L 08/28/18 05:30 INR, PTT INR 1.12 (0.83-1.09) H 08/25/18 06:00 Assessment/Plan ASSESSMENT: 1. Acute on chronic hypercapneic/hypoxemic respiratory failure on mechanical ventilation, persistent profound metabolic acidosis post HD, sepsis syndrome source unclear, persistent pulmonary infiltrate and small effusion, question empyema 2. Exacerbation of chronic obstructive pulmonary disease 3. Right Heart Failure with Severe Pulmonary HTN 4. Acute on chronic class I-II NYHA classification LV failure related to diastolic dysfunction 5. CAD post CABG with evidence of demand ischemic injury angina pectoris 7. HTN, currently hypotensive on pressors 8. Hypercholesterolemia 9. PAD post SFA stent 10. Acute on CKD, pre-renal azotemia, post HD session 11. Toxic metabolic encephelopathy 12. HIV and Hepatitis C 13. History of cholelithiasis 14. Anemia post transfusion PLAN: 1. Hold Plavix, related to anemia, transfuse to maintain Hg equal or > 8.0 2. Pressors to maintain MAP > 65 3. Steroid and bronchodilator as per critical care team 4. Antibiotic as per the primary/ID team, re-evaluation of possible sepsis source, lungs/possible empyema/possible intra-abdominal source 5. Ventilator management as per the ICU team Overall poor prognosis Tabatha Hogan M.D.
[2018-08-28 07:32] LABS: LIPASE 183 U/L (73-393)
--- NOTE | 2018-08-28 07:47 | PN ---
Progress Note (short form) - Note Progress Note: RENAL Pt is intubated, unable to give history having diarrhea and is on 60 percent fio2 toleated hd yesterday Last Vital Signs Temp Pulse Resp BP Pulse Ox 99.0 F 121 H 24 H 124/67 100 08/28/18 03:00 08/28/18 07:00 08/28/18 07:00 08/28/18 07:00 08/27/18 22:00 lungs bilat air entry cvs s1s2 rr abd soft ext trace edema neuro sedated has a rectal tube with liquid stool CBC, BMP 08/28/18 05:30 08/28/18 05:30 Current Medications Generic Name Dose Route Start Last Admin Trade Name Freq PRN Reason Stop Dose Admin Abacavir/Dolutegravir/Lamivudine 1 each 08/10/18 14:00 08/27/18 10:37 Triumeq (Non-Formulary) PO 1 each DAILY [facility] Administration Acetaminophen 1,000 mg 08/16/18 16:11 08/27/18 02:28 Tylenol Oral Solution - PO 1,000 mg Q6H PRN Administration FEVER Albuterol/Ipratropium 1 amp 08/17/18 16:00 08/27/18 21:11 Duoneb - NEB 1 amp RQID [facility] Administration Chlorhexidine Gluconate 15 ml 08/17/18 22:00 08/27/18 23:08 Peridex - MM 15 ml BID [facility] Administration Heparin Sodium (Porcine) 5,000 unit 08/17/18 14:00 08/28/18 05:56 Heparin - SQ 5,000 unit TID [facility] Administration IV Flush 4 ml 08/23/18 11:37 Triple Lumen Flush IVPUSH PRN PRN Protocol IV Flush 4 ml 08/27/18 22:00 08/27/18 23:09 Triple Lumen Flush IVPUSH 4 ml BID [facility] Administration Nafcillin Sodium 2 gm/ 100 mls @ 100 mls/hr 08/19/18 20:00 08/28/18 05:57 Dextrose IVPB 100 mls/hr Q4H-IV [facility] Administration Protocol Fentanyl 500 mcg/ Dextrose 100 mls @ 5 mls/hr 08/20/18 10:30 08/27/18 18:07 IVPB 100 mcg/hr TITR [facility] 20 mls/hr Titration Protocol 25 MCG/HR Norepinephrine Bitartrate 8, 500 mls @ 18.75 mls/hr 08/24/18 06:15 08/28/18 06:00 000 mcg/ Dextrose IV 2 mcg/min TITR [facility] 7.5 mls/hr Administration Protocol 5 MCG/MIN Meropenem 500 mg/ Dextrose 100 mls @ 200 mls/hr 08/24/18 18:00 08/28/18 03:11 IVPB 200 mls/hr Q8H-IV [facility] Administration Sodium Chloride 250 mls @ 3,000 mls/hr 08/27/18 19:22 Normal Saline - IV 08/28/18 19:22 PRN PRN Hypotension during Dialysis Methylprednisolone Sodium Succinate 40 mg 08/23/18 10:00 08/27/18 10:33 Solu-Medrol - IVPUSH 40 mg DAILY [facility] Administration Pantoprazole Sodium 40 mg 08/11/18 13:15 08/27/18 10:27 Protonix Iv IVPUSH 40 mg DAILY [facility] Administration Impression 1. KRISTIAN worsening 2. Hyperkalemia 3. HIV 4. hyponatremia- worsening and has a high urine sodium 5. altered mental status 6. pulm HTN 7. htn 8. pvd 9. resp and metabolic acidosis 10. resp failure requiring intubation Plan -continue pressors to maintain map over 60 -consider stopping HAART since it can cause several of her issues -all ivs should go in saline -adjust vent to correct resp acidosis -would not give iv bicarb until resp acidosis corrected since bicarb potentially can worsen RA -head CT whenever possible -possible hd again tomorrow -transfuse -stool for cdiff MV MV
[2018-08-28] MEDS: ALBUTEROL SO4 2.5/IPRATROPIUM 0.5 INH SOL 3 ML VIAL.NEB. NEB SCH ×4 (08:31→20:12)
--- NOTE | 2018-08-28 09:57 | PN ---
Progress Note, Physician History of Present Illness: LABORED BREATHING ON VENTILATOR TACHYPNEIC LOW GRADE TEMP NOTED PRESSORS WBC REMAINS ELEVATED BC MSSA SPUTUM C/S MSSA PSEUDOMONAS - Current Medication List Current Medications: Active Medications Abacavir/Dolutegravir/Lamivudine (Triumeq (Non-Formulary)) 1 each PO DAILY [facility] Last Admin: 08/27/18 10:37 Dose: 1 each Acetaminophen (Tylenol Oral Solution -) 1,000 mg PO Q6H PRN PRN Reason: FEVER Last Admin: 08/27/18 02:28 Dose: 1,000 mg Albuterol/Ipratropium (Duoneb -) 1 amp NEB RQID [facility] Last Admin: 08/28/18 08:31 Dose: 1 amp Chlorhexidine Gluconate (Peridex -) 15 ml MM BID [facility] Last Admin: 08/27/18 23:08 Dose: 15 ml Heparin Sodium (Porcine) (Heparin -) 5,000 unit SQ TID [facility] Last Admin: 08/28/18 05:56 Dose: 5,000 unit IV Flush (Triple Lumen Flush) 4 ml IVPUSH PRN PRN PRN Reason: Protocol IV Flush (Triple Lumen Flush) 4 ml IVPUSH BID [facility] Last Admin: 08/27/18 23:09 Dose: 4 ml Nafcillin Sodium 2 gm/ (Dextrose) 100 mls @ 100 mls/hr IVPB Q4H-IV [facility]; Protocol Last Admin: 08/28/18 05:57 Dose: 100 mls/hr Fentanyl 500 mcg/ Dextrose 100 mls @ 5 mls/hr IVPB TITR [facility]; Protocol Last Titration: 08/27/18 18:07 Dose: 100 mcg/hr, 20 mls/hr Norepinephrine Bitartrate 8, (000 mcg/ Dextrose) 500 mls @ 18.75 mls/hr IV TITR [facility]; Protocol Last Admin: 08/28/18 06:00 Dose: 2 mcg/min, 7.5 mls/hr Meropenem 500 mg/ Dextrose 100 mls @ 200 mls/hr IVPB Q8H-IV [facility] Last Admin: 08/28/18 03:11 Dose: 200 mls/hr Sodium Chloride (Normal Saline -) 250 mls @ 3,000 mls/hr IV PRN PRN PRN Reason: Hypotension during Dialysis Stop: 08/28/18 19:22 Methylprednisolone Sodium Succinate (Solu-Medrol -) 40 mg IVPUSH DAILY [facility] Last Admin: 08/27/18 10:33 Dose: 40 mg Pantoprazole Sodium (Protonix Iv) 40 mg IVPUSH DAILY [facility] Last Admin: 08/27/18 10:27 Dose: 40 mg - Objective Vital Signs: Vital Signs Temperature 99.0 F 08/28/18 03:00 Pulse Rate 125 H 08/28/18 08:30 Respiratory Rate 30 H 08/28/18 08:30 Blood Pressure 116/68 08/28/18 08:00 O2 Sat by Pulse Oximetry (%) 97 08/28/18 08:30 Constitutional: Yes: No Distress Eyes: Yes: Conjunctiva Clear Cardiovascular: Yes: Regular Rate and Rhythm, S1, S2 Respiratory: Yes: Mechanically Ventilated Gastrointestinal: Yes: Normal Bowel Sounds, Soft. No: Tenderness Edema: LLE: 1+, RLE: 1+ Labs: CBC, BMP 08/28/18 05:30 08/28/18 05:30 INR, PTT INR 1.12 (0.83-1.09) H 08/25/18 06:00 Assessment/Plan SEPSIS MSSA BACTEREMIA ? PNEUMONIA ?ENDOCARDITIS RESPIRATORY FAILURE/ COPD EXACERBATION HCAP RENAL FAILURE MARKED LEUKOCYTOSIS HIV+ CD4 437 CONTINUE NAFCILLIN/ MEROPENEM HEMODYNAMIC/ VENTILATORY SUPPORT CONTINUE ART PROGNOSIS POOR
[2018-08-28] MEDS ORDERED: fentaNYL CITRATE 250 MCG/5 ML VIAL ONE ×3 (10:48→22:59)
[2018-08-28] MEDS: ABACAVIR/DOLUTEGRAVIR/LAMIVUDI (TRIUMEQ) TABLET -NF PO SCH (10:51)
[2018-08-28] MEDS: methylPREDNISolone NA SUCC 40 MG/1 ML VIAL IVPUSH SCH (10:51)
[2018-08-28] MEDS: CHLORHEXIDINE GLUCONATE 0.12% 15ML CUP MM SCH ×2 (10:51→22:49)
[2018-08-28] MEDS: PANTOPRAZOLE SODIUM 40 MG VIAL IVPUSH SCH (10:51)
[2018-08-28] MEDS: TRIPLE LUMEN FLUSH 4 ML ML IVPUSH SCH ×2 (10:51→23:02)
[2018-08-28] MEDS: FENTANYL INJECTION 500 MCG in DEXTROSE 5%-WATER - 90 ML IVPB SCH ×2 (10:52→23:03)
--- NOTE | 2018-08-28 12:17 | PN ---
Progress Note (short form) - Note Progress Note: Pulm/CCM SUBJECTIVE: Patient seen and examined in the ICU. -HD last night, tolerate 1L UF -Hgb drifted down, 1 prbc this am -still gasping resp on vent -WBC but pressors downtrending, low grade tem OBJECTIVE: Vital Signs Temp 99.0 F 08/28/18 03:00 Pulse 125 H 08/28/18 08:30 Resp 32 H 08/28/18 11:11 BP 116/68 08/28/18 08:00 Pulse Ox 97 08/28/18 08:30 Intake & Output 08/27/18 08/28/18 08/28/18 23:59 11:59 23:59 Intake Total 740 1257 Output Total 25 0 Balance 715 1257 Weight 71.4 kg Intake: IV 240 360 Levophed - 8,000 Mcg In 208 D5w - 492 ml @ 5 MCG/MIN 18.75 mls/hr IV TITR [facility] Rx#:[id number] Sublimaze Injection - 500 240 152 Mcg In D5w - 90 ml @ 25 MCG/HR 5 mls/hr IVPB TITR [facility] Rx#:[id number] IVPB 500 437 Tube Feeding 420 Tube Irrigant 40 Output: Urine 25 0 Torres 25 0 Other: Voiding Method Indwelling Catheter Indwelling Catheter Bowel Movement Yes Yes # Bowel Movements 1 3 Weight Measurement Method Built in [facility] CBC, BMP 08/28/18 05:30 08/28/18 05:30 Gen: intubated, sedated Heart: RRR Lung: bilateral rhonchi, dimished bases Abd: soft, nontender, watery stool output. Ext: + edema Neuro: withdrawals to noxious stimuli, PERRL sluggish ABG Results ABG pH 7.22 (7.35-7.45) L 08/28/18 06:45 ABG pCO2 at Pt Temp 59.1 mmHg (35-45) H 08/28/18 06:45 ABG pO2 at Pt Temp 117 mmHg (80-105) H 08/28/18 06:45 ABG HCO3 23.1 mmol/L (22-27) 08/28/18 06:45 ABG O2 Sat (Measured) 97.5 % (95-98) 08/28/18 06:45 ABG O2 Content 9.6 % vol (15-22) L* 08/28/18 06:45 ABG Base Excess -4.0 meq/l (-2-2) L 08/28/18 06:45 ASSESSMENT AND PLAN: Acute on Chronic Hypoxic and Hypercapneic Respiratory Failure Acute COPD Exacerbation Pneumonia Septic Shock Acute Kidney Injury Metabolic and Respiratory Acidosis Pulmonary HTN LV Diastolic Dysfunction CAD s/p CABG +Troponins likely Demand Ischemia PAD HIV Hep C HTN Hypercholesterolemia - Full vent support as able for normocapnea - HD as per renal, would be helpful if able to handle more UF - continue antibiotics per ID, still growning PSA on sput cxl - Back off pressors - slow medrol taper - inhaled bronchodilators - taper FiO2, PEEP to keep SpO2 >90% - sedate for vent synchrony - low tidal ventilation <6cc/kg/IBW, keep Plat <30 - enteral feeds - DVT/GI prophylaxis - continue ICU monitoring - pallative care, will need tracheostomy for prolonged intubation, hopefully Trach early next week - poor overall prognosis, continue discussions regarding goals of care, pt now DNR, discussed trial of HD with family. They understand unlikely to change in hospital mortality but want to give short trial of [facility]> Dimitry ACNP [id number]
--- NOTE | 2018-08-28 14:29 | PROC ---
Central Line Insertion Indication: Other (Hemodialysis) Risks and Benefits Explained: Yes Consent on Chart: Yes Central Line: Dialysis Cath, Tri Lumen Anesthesia: 1% Lidocaine Sterile Technique: Yes Ultrasound Guided Assistance: Yes Position: Left Internal Jugular Post Insertion: Yes: Bilateral Breath Sounds, Chest X-Ray Ordered Sterile Dressing Applied: Yes
--- NOTE | 2018-08-28 15:28 | PN ---
Progress Note, Physician History of Present Illness: intubated and sedated - Current Medication List Current Medications: Active Medications Abacavir/Dolutegravir/Lamivudine (Triumeq (Non-Formulary)) 1 each PO DAILY [facility] Last Admin: 08/28/18 10:51 Dose: 1 each Acetaminophen (Tylenol Oral Solution -) 1,000 mg PO Q6H PRN PRN Reason: FEVER Last Admin: 08/27/18 02:28 Dose: 1,000 mg Albuterol/Ipratropium (Duoneb -) 1 amp NEB RQID [facility] Last Admin: 08/28/18 11:12 Dose: 1 amp Chlorhexidine Gluconate (Peridex -) 15 ml MM BID [facility] Last Admin: 08/28/18 10:51 Dose: 15 ml Fentanyl (Sublimaze Injection -) 100 mcg IVPUSH Q2H PRN PRN Reason: PAIN LEVEL 4 - 6 Stop: 08/29/18 12:29 Heparin Sodium (Porcine) (Heparin -) 5,000 unit SQ TID [facility] Last Admin: 08/28/18 13:31 Dose: 5,000 unit IV Flush (Triple Lumen Flush) 4 ml IVPUSH PRN PRN PRN Reason: Protocol IV Flush (Triple Lumen Flush) 4 ml IVPUSH BID [facility] Last Admin: 08/28/18 10:51 Dose: 4 ml Nafcillin Sodium 2 gm/ (Dextrose) 100 mls @ 100 mls/hr IVPB Q4H-IV [facility]; Protocol Last Admin: 08/28/18 13:33 Dose: 100 mls/hr Fentanyl 500 mcg/ Dextrose 100 mls @ 5 mls/hr IVPB TITR [facility]; Protocol Last Admin: 08/28/18 10:52 Dose: 50 mcg/hr, 10 mls/hr Norepinephrine Bitartrate 8, (000 mcg/ Dextrose) 500 mls @ 18.75 mls/hr IV TITR [facility]; Protocol Last Admin: 08/28/18 06:00 Dose: 2 mcg/min, 7.5 mls/hr Meropenem 500 mg/ Dextrose 100 mls @ 200 mls/hr IVPB Q8H-IV [facility] Last Admin: 08/28/18 11:25 Dose: 200 mls/hr Sodium Chloride (Normal Saline -) 250 mls @ 3,000 mls/hr IV PRN PRN PRN Reason: Hypotension during Dialysis Stop: 08/28/18 19:22 Methylprednisolone Sodium Succinate (Solu-Medrol -) 40 mg IVPUSH DAILY [facility] Last Admin: 08/28/18 10:51 Dose: 40 mg Pantoprazole Sodium (Protonix Iv) 40 mg IVPUSH DAILY [facility] Last Admin: 08/28/18 10:51 Dose: 40 mg - Objective Vital Signs: Vital Signs Temperature 99.7 F H 08/28/18 14:00 Pulse Rate 109 H 08/28/18 15:00 Respiratory Rate 30 H 08/28/18 15:00 Blood Pressure 87/60 L 08/28/18 15:00 O2 Sat by Pulse Oximetry (%) 100 08/28/18 10:00 Constitutional: Yes: Calm HENT: Yes: Atraumatic Neck: Yes: Supple Cardiovascular: Yes: Regular Rate and Rhythm Respiratory: Yes: Rhonchi Gastrointestinal: Yes: Normal Bowel Sounds Extremities: Yes: WNL Edema: No Neurological: Yes: Other (intubated and sedated) Labs: CBC, BMP 08/28/18 05:30 08/28/18 05:30 INR, PTT INR 1.12 (0.83-1.09) H 08/25/18 06:00 Problem List - Problems (1) Altered mental status, unspecified Code(s): R41.82 - ALTERED MENTAL STATUS, UNSPECIFIED Qualifiers: Altered mental status type: somnolence Qualified Code(s): R40.0 - Somnolence (2) COPD with acute exacerbation Assessment/Plan: steroids duo nebs INTUBATED Code(s): J44.1 - CHRONIC OBSTRUCTIVE PULMONARY DISEASE W (ACUTE) EXACERBATION (3) Elevated troponin I level Code(s): R74.8 - ABNORMAL LEVELS OF OTHER SERUM ENZYMES (4) Hyperkalemia Code(s): E87.5 - HYPERKALEMIA (5) COPD (chronic obstructive pulmonary disease) Code(s): J44.9 - CHRONIC OBSTRUCTIVE PULMONARY DISEASE, UNSPECIFIED Qualifiers: (6) HIV Assessment/Plan: continue home meds Code(s): Z21 - ASYMPTOMATIC HUMAN IMMUNODEFICIENCY VIRUS INFECTION STATUS (7) HTN (hypertension) Assessment/Plan: bp low due to sepsis on pressors Code(s): I10 - ESSENTIAL (PRIMARY) HYPERTENSION Qualifiers: Hypertension type: essential hypertension Qualified Code(s): I10 - Essential (primary) hypertension (8) Hyperlipidemia Code(s): E78.5 - HYPERLIPIDEMIA, UNSPECIFIED Qualifiers: Hyperlipidemia type: pure hypercholesterolemia Qualified Code(s): E78.00 - Pure hypercholesterolemia, unspecified; E78.0 - Pure hypercholesterolemia (9) PVD (peripheral vascular disease) Code(s): I73.9 - PERIPHERAL VASCULAR DISEASE, UNSPECIFIED (10) CHF (congestive heart failure) Code(s): I50.9 - HEART FAILURE, UNSPECIFIED Qualifiers: Heart failure type: diastolic Heart failure chronicity: chronic Qualified Code(s): I50.32 - Chronic diastolic (congestive) heart failure (11) Sepsis Assessment/Plan: on abx monitor wbc Code(s): A41.9 - SEPSIS, UNSPECIFIED ORGANISM (12) Respiratory acidosis Code(s): E87.2 - ACIDOSIS (13) Respiratory failure requiring intubation Assessment/Plan: intubated for trach next week Code(s): J96.90 - RESPIRATORY FAILURE, UNSP, UNSP W HYPOXIA OR HYPERCAPNIA Assessment/Plan cc time in icu 35 min
[2018-08-28] MEDS ORDERED: NOREPINEPHRINE BITARTRATE 4 MG/4 ML ML IV ONE (17:24)
[2018-08-28 18:55] LABS: HEMATOCRIT 23.2 % (32.4-45.2); HEMOGLOBIN 7.7 GM/dL (10.7-15.3); MCH 30.2 pg (25.7-33.7); MCHC 33.3 g/dl (32.0-36.0); MEAN CELL VOLUME 90.9 fl (80-96); MEAN PLT VOLUME 7.8 fl (7.5-11.1); PLATELET COUNT 268 K/MM3 (134-434); RBC 2.55 M/mm3 (3.60-5.2); RDW 15.2 % (11.6-15.6); WHITE BLOOD COUNT 28.7 K/mm3 (4.0-10.0)
[2018-08-28 19:24] LABS: ANION GAP 14 MMOL/L (8-16); BLOOD UREA NITROGEN 67 mg/dL (7-18); CALCIUM 8.3 mg/dL (8.5-10.1); CHLORIDE 93 mmol/L (98-107); CO2 24 mmol/L (21-32); CREATININE 3.5 mg/dL (0.55-1.3); GLUCOSE,RANDOM 117 mg/dL (74-106); MAGNESIUM 1.7 mg/dL (1.8-2.4); POTASSIUM 3.7 mmol/L (3.5-5.1); SODIUM 131 mmol/L (136-145)
[2018-08-28] MEDS ORDERED: MAGNESIUM SULF 50% (8.12 MEQ/2 ML-1 GM VIAL) IVPB ONE (19:43)
[2018-08-29] MEDS: NAFCILLIN - 2 GM in DEXTROSE 5%-WATER - 100 ML IVPB SCH ×6 (01:00→21:59)
[2018-08-29] MEDS: MEROPENEM 500 MG in DEXTROSE 5%-WATER 100 ML IVPB SCH ×3 (01:00→19:02)
[2018-08-29] MEDS ORDERED: fentaNYL CITRATE 250 MCG/5 ML VIAL ONE ×3 (02:49→11:33)
[2018-08-29] MEDS: BANATROL PLUS POWDER PACKET PO SCH ×3 (05:32→21:57)
[2018-08-29] MEDS: HEPARIN NA (PORCINE) 5,000 UNITS/ML 1ML VIAL SQ SCH ×3 (05:34→21:58)
--- NOTE | 2018-08-29 07:00 | PN ---
Progress Note (short form) - Note Progress Note: Chief Complaint: Events noted, notes reviewed, remains intubated and sedated, remains on pressors, HD as per renal service, tachypnea noted- persistent, sinus tachycardia noted- persistent History of Present Illness: Seen and examined in the ICU. Events noted, notes reviewed, remains intubated and sedated, remains on pressors, HD as per renal service, tachypnea noted- persistent, sinus tachycardia noted- persistent Overall poor prognosis, DNR Persistently elevated WBC counts, sepsis syndrome - Current Medication List Current Medications Abacavir/Dolutegravir/Lamivudine (Triumeq (Non-Formulary)) 1 each PO DAILY [facility] Last Admin: 08/28/18 10:51 Dose: 1 each Acetaminophen (Tylenol Oral Solution -) 1,000 mg PO Q6H PRN PRN Reason: FEVER Last Admin: 08/27/18 02:28 Dose: 1,000 mg Albuterol/Ipratropium (Duoneb -) 1 amp NEB RQID [facility] Last Admin: 08/28/18 20:12 Dose: 1 amp Chlorhexidine Gluconate (Peridex -) 15 ml MM BID [facility] Last Admin: 08/28/18 22:49 Dose: 15 ml Fentanyl (Sublimaze Injection -) 100 mcg IVPUSH Q2H PRN PRN Reason: PAIN LEVEL 4 - 6 Stop: 08/29/18 12:29 Last Admin: 08/28/18 17:39 Dose: 100 mcg Heparin Sodium (Porcine) (Heparin -) 5,000 unit SQ TID [facility] Last Admin: 08/29/18 05:34 Dose: 5,000 unit IV Flush (Triple Lumen Flush) 4 ml IVPUSH PRN PRN PRN Reason: Protocol IV Flush (Triple Lumen Flush) 4 ml IVPUSH BID [facility] Last Admin: 08/28/18 23:02 Dose: 4 ml Nafcillin Sodium 2 gm/ (Dextrose) 100 mls @ 100 mls/hr IVPB Q4H-IV [facility]; Protocol Last Admin: 08/29/18 05:33 Dose: 100 mls/hr Fentanyl 500 mcg/ Dextrose 100 mls @ 5 mls/hr IVPB TITR [facility]; Protocol Last Admin: 08/28/18 23:03 Dose: 125 mcg/hr, 25 mls/hr Norepinephrine Bitartrate 8, (000 mcg/ Dextrose) 500 mls @ 18.75 mls/hr IV TITR [facility]; Protocol Last Titration: 08/29/18 03:00 Dose: 3 mcg/min, 11.25 mls/hr Meropenem 500 mg/ Dextrose 100 mls @ 200 mls/hr IVPB Q8H-IV [facility] Last Admin: 08/29/18 01:00 Dose: 200 mls/hr Sodium Chloride (Normal Saline -) 250 mls @ 3,000 mls/hr IV PRN PRN PRN Reason: Hypotension during Dialysis Stop: 08/28/18 19:22 Methylprednisolone Sodium Succinate (Solu-Medrol -) 40 mg IVPUSH DAILY [facility] Last Admin: 08/28/18 10:51 Dose: 40 mg Pantoprazole Sodium (Protonix Iv) 40 mg IVPUSH DAILY [facility] Last Admin: 08/28/18 10:51 Dose: 40 mg Review of Systems Unable to obtain - Objective Vital Signs: Last Vital Signs Temp Pulse Resp BP Pulse Ox 98.2 F 117 H 35 H 80/51 L 99 08/29/18 02:00 08/29/18 03:00 08/29/18 05:35 08/29/18 03:00 08/28/18 22:00 Intake & Output 08/26/18 08/27/18 08/28/18 08/29/18 23:59 23:59 23:59 23:59 Intake Total 2448 1395 2586 Output Total 230 35 760 Balance 2218 1360 1826 Weight 151 lb 6.4 oz 154 lb 14.4 oz 157 lb 6.561 oz 154 lb 6 oz Neck: Supple Negative JVD No Bruit Cardiovascular: S1 S2 Regular Rate and Rhythm Tachycardia Respiratory: Diminished Breath Sounds at the Bases Bilaterally Bilateral Course Rhonchi Gastrointestinal: Soft Benign Normal Bowel Sounds Ext: Negative Edema Labs: CBC, BMP 08/28/18 18:30 08/28/18 18:30 ABG Results ABG pH 7.22 (7.35-7.45) L 08/28/18 06:45 ABG pCO2 at Pt Temp 59.1 mmHg (35-45) H 08/28/18 06:45 ABG pO2 at Pt Temp 117 mmHg (80-105) H 08/28/18 06:45 ABG HCO3 23.1 mmol/L (22-27) 08/28/18 06:45 ABG O2 Sat (Measured) 97.5 % (95-98) 08/28/18 06:45 ABG O2 Content 9.6 % vol (15-22) L* 08/28/18 06:45 ABG Base Excess -4.0 meq/l (-2-2) L 08/28/18 06:45 Hepatic Panel Total Bilirubin 2.1 mg/dL (0.2-1) H 08/28/18 05:30 Direct Bilirubin 0.7 mg/dL (0.0-0.2) H 08/28/18 05:30 AST 33 U/L (15-37) 08/28/18 05:30 ALT 11 U/L (13-61) L 08/28/18 05:30 Alkaline Phosphatase 72 U/L (45-117) 08/28/18 05:30 Albumin 1.3 g/dl (3.4-5.0) L 08/28/18 05:30 INR, PTT INR 1.12 (0.83-1.09) H 08/25/18 06:00 Assessment/Plan ASSESSMENT: 1. Acute on chronic hypercapneic/hypoxemic respiratory failure on mechanical ventilation, persistent profound metabolic acidosis post HD, sepsis syndrome source unclear, persistent pulmonary infiltrate and small effusion, question empyema 2. Exacerbation of chronic obstructive pulmonary disease 3. Right Heart Failure with Severe Pulmonary HTN 4. Acute on chronic class I-II NYHA classification LV failure related to diastolic dysfunction 5. CAD post CABG with evidence of demand ischemic injury angina pectoris 7. HTN, currently hypotensive on pressors 8. Hypercholesterolemia 9. PAD post SFA stent 10. Acute on CKD, pre-renal azotemia, post HD session 11. Toxic metabolic encephelopathy 12. HIV and Hepatitis C 13. History of cholelithiasis 14. Anemia post transfusion PLAN: 1. Continue to hold Plavix, related to anemia, transfuse to maintain Hg equal or > 8.0 2. Pressors to maintain MAP > 65 3. Steroid and bronchodilator as per critical care team 4. Antibiotic as per the primary/ID team, re-evaluation of possible sepsis source, lungs/possible empyema/possible intra-abdominal source 5. HD as per renal service 6. Ventilator management as per the ICU team Overall poor prognosis Tabatha Hogan M.D.
[2018-08-29] MEDS: FENTANYL INJECTION 500 MCG in DEXTROSE 5%-WATER - 90 ML IVPB SCH ×2 (07:31→13:45)
[2018-08-29] MEDS ORDERED: PROPOFOL 1,000,000 MCG/100 ML VIAL ONE (07:54)
[2018-08-29] MEDS: PROPOFOL 1,000,000 MCG/100 ML VIAL IVPB SCH (08:27)
[2018-08-29] MEDS ORDERED: NOREPINEPHRINE BITARTRATE 8,000 MCG in SODIUM CHLORIDE 492 ML IV SCH (08:45)
[2018-08-29] MEDS: NOREPINEPHRINE BITARTRATE 8,000 MCG in SODIUM CHLORIDE 500 ML IV SCH ×2 (10:00→19:00)
[2018-08-29] MEDS: PANTOPRAZOLE SODIUM 40 MG VIAL IVPUSH SCH (10:00)
[2018-08-29] MEDS: TRIPLE LUMEN FLUSH 4 ML ML IVPUSH SCH ×2 (10:00→22:00)
[2018-08-29] MEDS: CHLORHEXIDINE GLUCONATE 0.12% 15ML CUP MM SCH ×2 (10:00→21:58)
[2018-08-29] MEDS: ABACAVIR/DOLUTEGRAVIR/LAMIVUDI (TRIUMEQ) TABLET -NF PO SCH (10:00)
--- NOTE | 2018-08-29 10:29 | PN ---
Progress Note, Physician History of Present Illness: Pt seen and examined at bedside. She remains in the ICU. She was dialyzed on Wednesday. She is making urine but is still oliguric. - Current Medication List Current Medications: Active Medications Abacavir/Dolutegravir/Lamivudine (Triumeq (Non-Formulary)) 1 each PO DAILY [facility] Last Admin: 08/28/18 10:51 Dose: 1 each Acetaminophen (Tylenol Oral Solution -) 1,000 mg PO Q6H PRN PRN Reason: FEVER Last Admin: 08/27/18 02:28 Dose: 1,000 mg Chlorhexidine Gluconate (Peridex -) 15 ml MM BID [facility] Last Admin: 08/28/18 22:49 Dose: 15 ml Fentanyl (Sublimaze Injection -) 100 mcg IVPUSH Q2H PRN PRN Reason: PAIN LEVEL 4 - 6 Stop: 08/29/18 12:29 Last Admin: 08/28/18 17:39 Dose: 100 mcg Heparin Sodium (Porcine) (Heparin -) 5,000 unit SQ TID [facility] Last Admin: 08/29/18 05:34 Dose: 5,000 unit IV Flush (Triple Lumen Flush) 4 ml IVPUSH PRN PRN PRN Reason: Protocol IV Flush (Triple Lumen Flush) 4 ml IVPUSH BID [facility] Last Admin: 08/28/18 23:02 Dose: 4 ml Nafcillin Sodium 2 gm/ (Dextrose) 100 mls @ 100 mls/hr IVPB Q4H-IV [facility]; Protocol Last Admin: 08/29/18 05:33 Dose: 100 mls/hr Fentanyl 500 mcg/ Dextrose 100 mls @ 5 mls/hr IVPB TITR [facility]; Protocol Last Admin: 08/29/18 07:31 Dose: 175 mcg/hr, 35 mls/hr Meropenem 500 mg/ Dextrose 100 mls @ 200 mls/hr IVPB Q8H-IV [facility] Last Admin: 08/29/18 01:00 Dose: 200 mls/hr Sodium Chloride (Normal Saline -) 250 mls @ 3,000 mls/hr IV PRN PRN PRN Reason: Hypotension during Dialysis Stop: 08/28/18 19:22 Propofol (Diprivan -) 1,000,000 mcg in 100 mls @ 2.101 mls/hr IVPB TITR [facility]; Protocol Last Admin: 08/29/18 08:27 Dose: 5 mcg/kg/min, 2.101 mls/hr Norepinephrine Bitartrate 8, (000 mcg/ Sodium Chloride) 508 mls @ 7.5 mls/hr IV TITR [facility] Methylprednisolone Sodium Succinate (Solu-Medrol -) 40 mg IVPUSH DAILY [facility] Last Admin: 08/28/18 10:51 Dose: 40 mg Pantoprazole Sodium (Protonix Iv) 40 mg IVPUSH DAILY [facility] Last Admin: 08/28/18 10:51 Dose: 40 mg - Objective Vital Signs: Vital Signs Temperature 98.4 F 08/29/18 06:00 Pulse Rate 109 H 08/29/18 08:28 Respiratory Rate 34 H 08/29/18 08:29 Blood Pressure 116/70 08/29/18 07:00 O2 Sat by Pulse Oximetry (%) 93 L 08/29/18 08:28 Constitutional: Yes: Calm Eyes: Yes: Conjunctiva Clear HENT: Yes: Atraumatic Cardiovascular: Yes: S1, S2 Respiratory: Yes: Mechanically Ventilated Gastrointestinal: Yes: Soft Genitourinary: Yes: Torres Present Musculoskeletal: Yes: Muscle Weakness Edema: Yes Edema: LUE: 1+, RUE: 1+ Neurological: Yes: Lethargy Labs: CBC, BMP 08/28/18 18:30 08/28/18 18:30 INR, PTT INR 1.12 (0.83-1.09) H 08/25/18 06:00 Problem List - Problems (1) Acute renal failure Code(s): N17.9 - ACUTE KIDNEY FAILURE, UNSPECIFIED Qualifiers: Acute renal failure type: unspecified Qualified Code(s): N17.9 - Acute kidney failure, unspecified (2) Altered mental status, unspecified Code(s): R41.82 - ALTERED MENTAL STATUS, UNSPECIFIED Qualifiers: Altered mental status type: somnolence Qualified Code(s): R40.0 - Somnolence (3) CHF (congestive heart failure) Code(s): I50.9 - HEART FAILURE, UNSPECIFIED Qualifiers: Heart failure type: diastolic Heart failure chronicity: chronic Qualified Code(s): I50.32 - Chronic diastolic (congestive) heart failure (4) COPD with acute exacerbation Code(s): J44.1 - CHRONIC OBSTRUCTIVE PULMONARY DISEASE W (ACUTE) EXACERBATION (5) Hyperkalemia Code(s): E87.5 - HYPERKALEMIA Assessment/Plan Current Medications Generic Name Dose Route Start Last Admin Trade Name Freq PRN Reason Stop Dose Admin Abacavir/Dolutegravir/Lamivudine 1 each 08/10/18 14:00 08/28/18 10:51 Triumeq (Non-Formulary) PO 1 each DAILY [facility] Administration Acetaminophen 1,000 mg 08/16/18 16:11 08/27/18 02:28 Tylenol Oral Solution - PO 1,000 mg Q6H PRN Administration FEVER Chlorhexidine Gluconate 15 ml 08/17/18 22:00 08/28/18 22:49 Peridex - MM 15 ml BID [facility] Administration Fentanyl 100 mcg 08/28/18 12:23 08/28/18 17:39 Sublimaze Injection - IVPUSH 08/29/18 12:29 100 mcg Q2H PRN Administration PAIN LEVEL 4 - 6 Heparin Sodium (Porcine) 5,000 unit 08/17/18 14:00 08/29/18 05:34 Heparin - SQ 5,000 unit TID [facility] Administration IV Flush 4 ml 08/23/18 11:37 Triple Lumen Flush IVPUSH PRN PRN Protocol IV Flush 4 ml 08/27/18 22:00 08/28/18 23:02 Triple Lumen Flush IVPUSH 4 ml BID [facility] Administration Nafcillin Sodium 2 gm/ 100 mls @ 100 mls/hr 08/19/18 20:00 08/29/18 05:33 Dextrose IVPB 100 mls/hr Q4H-IV [facility] Administration Protocol Fentanyl 500 mcg/ Dextrose 100 mls @ 5 mls/hr 08/20/18 10:30 08/29/18 07:31 IVPB 175 mcg/hr TITR [facility] 35 mls/hr Administration Protocol 25 MCG/HR Meropenem 500 mg/ Dextrose 100 mls @ 200 mls/hr 08/24/18 18:00 08/29/18 01:00 IVPB 200 mls/hr Q8H-IV [facility] Administration Sodium Chloride 250 mls @ 3,000 mls/hr 08/27/18 19:22 Normal Saline - IV 08/28/18 19:22 PRN PRN Hypotension during Dialysis Propofol 1,000,000 mcg in 100 mls @ 2.101 mls/hr 08/29/18 07:45 08/29/18 08: 27 Diprivan - IVPB 5 mcg/kg/min TITR [facility] 2.101 mls/hr Administration Protocol 5 MCG/KG/MIN Norepinephrine Bitartrate 8, 508 mls @ 7.5 mls/hr 08/29/18 08:45 000 mcg/ Sodium Chloride IV TITR [facility] Methylprednisolone Sodium Succinate 40 mg 08/23/18 10:00 08/28/18 10:51 Solu-Medrol - IVPUSH 40 mg DAILY [facility] Administration Pantoprazole Sodium 40 mg 08/11/18 13:15 08/28/18 10:51 Protonix Iv IVPUSH 40 mg DAILY [facility] Administration Impression 1. KRISTIAN 2. Hyperkalemia 3. HIV 4. hyponatremia 5. altered mental status 6. pulm HTN 7. htn 8. pvd 9. resp acidosis 10. resp failure requiring intubation Plan - check labs from today - check cxr - will review labs - possible hd today or tomorrow - monitor urine output - likely atn from hypotension - cont pressors to map 65 - monitor urine output - discussed with ICU team - monitor cvp - hold bp meds
[2018-08-29 11:07] LABS: BASO % 0.2 % (0-2.0); EOS % 0.1 % (0-4.5); HEMATOCRIT 23.4 % (32.4-45.2); HEMOGLOBIN 7.9 GM/dL (10.7-15.3); LYMPH % 1.2 % (8-40); MCH 30.4 pg (25.7-33.7); MCHC 33.7 g/dl (32.0-36.0); MEAN CELL VOLUME 90.3 fl (80-96); MONO % 6.8 % (3.8-10.2); NEUT % 91.7 % (42.8-82.8); PLATELET COUNT 306 K/MM3 (134-434); RDW 15.4 % (11.6-15.6); WHITE BLOOD COUNT 25.3 K/mm3 (4.0-10.0)
[2018-08-29] MEDS ORDERED: PT OWN MED DRAWER 7, Y5N ONE ×4 (11:12→21:52)
[2018-08-29 11:36] LABS: ALBUMIN 1.2 g/dl (3.4-5.0); ALK PHOS 68 U/L (45-117); ANION GAP 15 MMOL/L (8-16); BILIRUBIN,TOTAL 2.3 mg/dL (0.2-1); BLOOD UREA NITROGEN 71 mg/dL (7-18); CHLORIDE 91 mmol/L (98-107); CO2 24 mmol/L (21-32); CREATININE 3.8 mg/dL (0.55-1.3); GLUCOSE,RANDOM 84 mg/dL (74-106); PHOSPHOROUS 7.4 mg/dL (2.5-4.9); POTASSIUM 3.5 mmol/L (3.5-5.1); SGOT/AST 47 U/L (15-37); SGPT/ALT 10 U/L (13-61); SODIUM 131 mmol/L (136-145); TOT PROT 4.9 g/dl (6.4-8.2)
[2018-08-29] MEDS ORDERED: FLUDROCORTISONE ACETATE 0.1 MG TABLET (FP) NGT SCH (11:45)
[2018-08-29] MEDS: MIDAZOLAM 100 MG in SODIUM CHLORIDE 100 ML IVPB SCH (12:00)
[2018-08-29] MEDS: VASOPRESSIN 50 UNITS in SODIUM CHLORIDE 97.5 ML IVPB SCH (12:14)
[2018-08-29] MEDS ORDERED: MIDAZOLAM 100 MG/100 ML MG IVPB ONE (12:17)
[2018-08-29] MEDS: HYDROCORTISONE SOD SUCCINATE 100 MG/2 ML VIAL IVPUSH SCH ×2 (12:30→18:14)
[2018-08-29] MEDS ORDERED: SODIUM CHLORIDE 0.9% 500 ML INFUS.BAG IV ONE (12:56)
--- NOTE | 2018-08-29 13:01 | PN ---
Teaching Attending Note Name of Resident: Andrez Tolentino ATTENDING PHYSICIAN STATEMENT I saw and evaluated the patient. I reviewed the resident's note and discussed the case with the resident. I agree with the resident's findings and plan as documented. SUBJECTIVE: Patient seen and examined in the ICU. Remains intubated, sedated. AC Mode of vent, 60% FiO2. 20mcq levophed drip for hemodynamic support. Noted required HD over the weekend. OBJECTIVE: Intake & Output 08/26/18 08/27/18 08/28/18 08/29/18 23:59 23:59 23:59 23:59 Intake Total 2448 1395 2586 1328 Output Total 230 35 760 100 Balance 2218 1360 1826 1228 Weight 151 lb 6.4 oz 154 lb 14.4 oz 157 lb 6.561 oz 154 lb 6 oz Last Vital Signs Temp Pulse Resp BP Pulse Ox 98.4 F 137 H 31 H 87/63 L 93 L 08/29/18 06:00 08/29/18 12:14 08/29/18 11:10 08/29/18 12:14 08/29/18 08:28 Active Medications Abacavir/Dolutegravir/Lamivudine (Triumeq (Non-Formulary)) 1 each PO DAILY [facility] Last Admin: 08/28/18 10:51 Dose: 1 each Acetaminophen (Tylenol Oral Solution -) 1,000 mg PO Q6H PRN PRN Reason: FEVER Last Admin: 08/27/18 02:28 Dose: 1,000 mg Chlorhexidine Gluconate (Peridex -) 15 ml MM BID [facility] Last Admin: 08/28/18 22:49 Dose: 15 ml Fludrocortisone Acetate (Florinef -) 0.05 mg NGT DAILY [facility] Heparin Sodium (Porcine) (Heparin -) 5,000 unit SQ TID [facility] Last Admin: 08/29/18 05:34 Dose: 5,000 unit Hydrocortisone Sodium Succinate (Solu-Cortef -) 100 mg IVPUSH Q8H-IV [facility] IV Flush (Triple Lumen Flush) 4 ml IVPUSH PRN PRN PRN Reason: Protocol IV Flush (Triple Lumen Flush) 4 ml IVPUSH BID [facility] Last Admin: 08/28/18 23:02 Dose: 4 ml Nafcillin Sodium 2 gm/ (Dextrose) 100 mls @ 100 mls/hr IVPB Q4H-IV [facility]; Protocol Last Admin: 08/29/18 05:33 Dose: 100 mls/hr Fentanyl 500 mcg/ Dextrose 100 mls @ 5 mls/hr IVPB TITR [facility]; Protocol Last Admin: 08/29/18 07:31 Dose: 175 mcg/hr, 35 mls/hr Meropenem 500 mg/ Dextrose 100 mls @ 200 mls/hr IVPB Q8H-IV [facility] Last Admin: 08/29/18 01:00 Dose: 200 mls/hr Sodium Chloride (Normal Saline -) 250 mls @ 3,000 mls/hr IV PRN PRN PRN Reason: Hypotension during Dialysis Stop: 08/28/18 19:22 Propofol (Diprivan -) 1,000,000 mcg in 100 mls @ 2.101 mls/hr IVPB TITR [facility]; Protocol Last Admin: 08/29/18 08:27 Dose: 5 mcg/kg/min, 2.101 mls/hr Norepinephrine Bitartrate 8, (000 mcg/ Sodium Chloride) 508 mls @ 7.5 mls/hr IV TITR [facility] Midazolam HCl 100 mg/ Sodium (Chloride) 100 mls @ 1 mls/hr IVPB TITR [facility]; Protocol Vasopressin 50 units/ Sodium (Chloride) 100 mls @ 4 mls/hr IVPB ASDIR [facility]; Protocol Last Admin: 08/29/18 12:14 Dose: 2 units/hr, 4 mls/hr Pantoprazole Sodium (Protonix Iv) 40 mg IVPUSH DAILY [facility] Last Admin: 08/28/18 10:51 Dose: 40 mg Sodium Chloride (Normal Saline -) 500 ml IV ONCE ONE Stop: 08/29/18 12:57 Gen: intubated, sedated Heart: RRR Lung: bilateral rhonchi Abd: soft, nontender Ext: + edema Laboratory Results - last 24 hr 08/28/18 08/28/18 08/29/18 18:30 18:30 10:45 WBC 28.7 H 25.3 H RBC 2.55 L 2.60 L Hgb 7.7 L 7.9 L Hct 23.2 L 23.4 L MCV 90.9 90.3 MCH 30.2 30.4 MCHC 33.3 33.7 RDW 15.2 15.4 Plt Count 268 306 MPV 7.8 8.0 Absolute Neuts (auto) 23.2 H Neutrophils % 91.7 H Lymphocytes % 1.2 L D Monocytes % 6.8 Eosinophils % 0.1 Basophils % 0.2 Nucleated RBC % 0 Sodium 131 L Potassium 3.7 Chloride 93 L Carbon Dioxide 24 Anion Gap 14 BUN 67 H Creatinine 3.5 H Creat Clearance w eGFR 13.03 Random Glucose 117 H Calcium 8.3 L Phosphorus Magnesium 1.7 L Total Bilirubin AST ALT Alkaline Phosphatase Total Protein Albumin 08/29/18 10:45 WBC RBC Hgb Hct MCV MCH MCHC RDW Plt Count MPV Absolute Neuts (auto) Neutrophils % Lymphocytes % Monocytes % Eosinophils % Basophils % Nucleated RBC % Sodium 131 L Potassium 3.5 Chloride 91 L Carbon Dioxide 24 Anion Gap 15 BUN 71 H Creatinine 3.8 H Creat Clearance w eGFR 11.85 Random Glucose 84 Calcium 8.0 L Phosphorus 7.4 H Magnesium 2.0 Total Bilirubin 2.3 H AST 47 H ALT 10 L Alkaline Phosphatase 68 Total Protein 4.9 L Albumin 1.2 L ASSESSMENT AND PLAN: Acute on Chronic Hypoxic and Hypercapneic Respiratory Failure Acute COPD Exacerbation ARF Pneumonia Septic Shock Acute Kidney Injury Metabolic and Respiratory Acidosis Pulmonary HTN LV Diastolic Dysfunction CAD s/p CABG +Troponins likely Demand Ischemia PAD HIV Hep C HTN Hypercholesterolemia - Sedate for better vent synchrony - Add Vasopressin, Hydrocortisone, & Fludrocortisone for shock - HD per Renal - continue antibiotics per ID - IVF challenge - monitor urine output, creatinine - inhaled bronchodilators - taper FiO2, PEEP to keep SpO2 >90% - low tidal ventilation <6cc/kg/IBW, keep Plat <30 - not a candidate for weaning at this time given oxygen requirements - enteral feeds - DVT/GI prophylaxis - continue ICU monitoring - pallative care, will need tracheostomy for prolonged intubation, hopefully Trach later this week if she stabilizes - poor overall prognosis, continue discussions regarding goals of care, pt now DNR Dr Suero Critical care time spent in reviewing chart, evaluating patient and formulating plan 35 min
[2018-08-29] MEDS: NOREPINEPHRINE BITARTRATE 8,000 MCG in DEXTROSE 5%-WATER - 492 ML IV SCH (13:03)
[2018-08-29 13:07] LABS: ANISOCYTOSIS 1+; MACROCYTOSIS 0; PLATELET ESTIMATE NORMAL; TARGET CELLS 2+; TEAR DROP CELLS 1+
--- NOTE | 2018-08-29 14:13 | PN ---
Physical Exam: SUBJECTIVE: Patient seen and examined HD# 21 Intubation Day 19 Overnight Events: Pt became hypotensive and tachypneic overnight. Levophed was started for BP and Propofol was restarted for additional sedation. OBJECTIVE: Vital Signs Period Temp Pulse Resp BP Sys/Buck Pulse Ox Last 24 Hr 98.2 F-99.5 F 109-137 20-37 77-138/51-89 93-99 Intake & Output 08/28/18 08/29/18 08/29/18 23:59 07:59 15:59 Intake Total 584 1328 Output Total 200 100 Balance 384 1228 Weight 70.023 kg Intake: IV 184 423 RIJ 91 Sublimaze Injection - 500 184 332 Mcg In D5w - 90 ml @ 25 MCG/HR 5 mls/hr IVPB TITR [facility] Rx#:[id number] IVPB 200 705 Oral 0 Tube Irrigant 200 200 Output: Drainage 200 Flexiseal 200 Urine 0 100 Torres 0 100 Other: Voiding Method Indwelling Catheter Bowel Movement Yes Yes Body Mass Index (BMI) 23.4 Weight Measurement Method Built in [facility] Lines: - R IJ - L Triple Lumen Dialysis Catheter Drains: - NG - Torres - Rectal tube Supplemental Oxygen: Ventilator: Mode: AC Vent rate: 30 Tv: 370 PEEP: 8 FiO2: 60% Physical Exams: GENERAL: The patient is sedated. No localized withdrawal. HEAD: Normal with no signs of trauma. EYES: Closed. LUNGS: Intubated and mechanically ventilated. Mildly rapid breathing. Breath sounds equal, with trace diffuse rhonchi. No wheezes or rales. HEART: Tachycardic rate with regular rhythm, S1, S2 without murmur, rub or gallop. ABDOMEN: Soft and nondistended. EXTREMITIES: 2+ pulses, warm, well-perfused. 2+ edema to all extremities U>L. SKIN: Warm and dry. Stage 2 decubitus ulcer with dressing in place. Drips: - Fentanyl - Propofol - Levophed Anti Infectives: - Nafcillin Day 11 - Meropenem Day 12 Laboratory Results - last 24 hr 08/28/18 08/28/18 08/29/18 18:30 18:30 10:45 WBC 28.7 H 25.3 H RBC 2.55 L 2.60 L Hgb 7.7 L 7.9 L Hct 23.2 L 23.4 L MCV 90.9 90.3 MCH 30.2 30.4 MCHC 33.3 33.7 RDW 15.2 15.4 Plt Count 268 306 MPV 7.8 8.0 Absolute Neuts (auto) 23.2 H Neutrophils % 91.7 H Neutrophils % (Manual) 94.0 H Band Neutrophils % 2.0 Lymphocytes % 1.2 L D Lymphocytes % (Manual) 0.0 L Monocytes % 6.8 Monocytes % (Manual) 3 L Eosinophils % 0.1 Eosinophils % (Manual) 0.0 Basophils % 0.2 Basophils % (Manual) 0.0 Myelocytes % (Man) 0 D Promyelocytes % (Man) 0 Blast Cells % (Manual) 0 Nucleated RBC % 0 Metamyelocytes 0 Hypochromia 2+ Platelet Estimate Normal Platelet Comment Present Polychromasia 1+ Poikilocytosis 1+ Basophilic Stippling 1+ Anisocytosis 1+ Microcytosis 1+ Macrocytosis 0 Spherocytes 1+ Target Cells 2+ Tear Drop Cells 1+ Schistocytes 1+ Sodium 131 L Potassium 3.7 Chloride 93 L Carbon Dioxide 24 Anion Gap 14 BUN 67 H Creatinine 3.5 H Creat Clearance w eGFR 13.03 Random Glucose 117 H Calcium 8.3 L Phosphorus Magnesium 1.7 L Total Bilirubin AST ALT Alkaline Phosphatase Total Protein Albumin 08/29/18 10:45 WBC RBC Hgb Hct MCV MCH MCHC RDW Plt Count MPV Absolute Neuts (auto) Neutrophils % Neutrophils % (Manual) Band Neutrophils % Lymphocytes % Lymphocytes % (Manual) Monocytes % Monocytes % (Manual) Eosinophils % Eosinophils % (Manual) Basophils % Basophils % (Manual) Myelocytes % (Man) Promyelocytes % (Man) Blast Cells % (Manual) Nucleated RBC % Metamyelocytes Hypochromia Platelet Estimate Platelet Comment Polychromasia Poikilocytosis Basophilic Stippling Anisocytosis Microcytosis Macrocytosis Spherocytes Target Cells Tear Drop Cells Schistocytes Sodium 131 L Potassium 3.5 Chloride 91 L Carbon Dioxide 24 Anion Gap 15 BUN 71 H Creatinine 3.8 H Creat Clearance w eGFR 11.85 Random Glucose 84 Calcium 8.0 L Phosphorus 7.4 H Magnesium 2.0 Total Bilirubin 2.3 H AST 47 H ALT 10 L Alkaline Phosphatase 68 Total Protein 4.9 L Albumin 1.2 L Active Medications Generic Name Dose Route Start Last Admin Trade Name Freq PRN Reason Stop Dose Admin Abacavir/Dolutegravir/Lamivudine 1 each 08/10/18 14:00 08/29/18 10:00 Triumeq (Non-Formulary) PO 1 each DAILY AL[facility]ON Administration Acetaminophen 1,000 mg 08/16/18 16:11 08/27/18 02:28 Tylenol Oral Solution - PO 1,000 mg Q6H PRN Administration FEVER Chlorhexidine Gluconate 15 ml 08/17/18 22:00 08/29/18 10:00 Peridex - MM 15 ml BID [facility] Administration Fludrocortisone Acetate 0.05 mg 08/29/18 13:15 Florinef - NGT DAILY AL[facility]ON Heparin Sodium (Porcine) 5,000 unit 08/17/18 14:00 08/29/18 05:34 Heparin - SQ 5,000 unit TID AL[facility] Administration Hydrocortisone Sodium Succinate 100 mg 08/29/18 11:30 Solu-Cortef - IVPUSH Q8H-IV AL[facility]ON IV Flush 4 ml 08/23/18 11:37 Triple Lumen Flush IVPUSH PRN PRN Protocol IV Flush 4 ml 08/27/18 22:00 08/29/18 10:00 Triple Lumen Flush IVPUSH 4 ml BID AL[facility] Administration Nafcillin Sodium 2 gm/ 100 mls @ 100 mls/hr 08/19/18 20:00 08/29/18 11:00 Dextrose IVPB 100 mls/hr Q4H-IV [facility] Administration Protocol Fentanyl 500 mcg/ Dextrose 100 mls @ 5 mls/hr 08/20/18 10:30 08/29/18 13:45 IVPB Not Given TITR AL[facility] Protocol 25 MCG/HR Meropenem 500 mg/ Dextrose 100 mls @ 200 mls/hr 08/24/18 18:00 08/29/18 10:30 IVPB 200 mls/hr Q8H-IV [facility] Administration Sodium Chloride 250 mls @ 3,000 mls/hr 08/27/18 19:22 Normal Saline - IV 08/28/18 19:22 PRN PRN Hypotension during Dialysis Propofol 1,000,000 mcg in 100 mls @ 2.101 mls/hr 08/29/18 07:45 08/29/18 08: 27 Diprivan - IVPB 5 mcg/kg/min TITR AL[facility] 2.101 mls/hr Administration Protocol 5 MCG/KG/MIN Norepinephrine Bitartrate 8, 508 mls @ 7.5 mls/hr 08/29/18 08:45 08/29/18 10: 00 000 mcg/ Sodium Chloride IV 7.5 mls/hr TITR [facility] Administration Midazolam HCl 100 mg/ Sodium 100 mls @ 1 mls/hr 08/29/18 11:45 08/29/18 12:00 Chloride IVPB 3 mg/hr TITR [facility] 3 mls/hr Administration Protocol 1 MG/HR Vasopressin 50 units/ Sodium 100 mls @ 4 mls/hr 08/29/18 11:45 08/29/18 12:14 Chloride IVPB 2 units/hr ASDIR AL[facility] 4 mls/hr Administration Protocol 2 UNITS/HR Pantoprazole Sodium 40 mg 08/11/18 13:15 08/29/18 10:00 Protonix Iv IVPUSH 40 mg DAILY [facility] Administration ASSESSMENT/PLAN: 67 year old female with HTN, CAD s/p CABG in 2009, PVD with B/L LE stents, HIV, HEP C, COPD and CHF. Admitted to the ICU for Acute hypoxic hypercapnic respiratory failure and dehydration. Neuro: - Currently sedated with Propofol and Fentanyl. Will not attempt sedation wean given current respiratory status. Endocrine: - Consult: Dr. Leach - Cr continues to trend upward. Suspect likely acute tubular necrosis given metabolic acidosis. - Dialysis per renal service. - Continue to trend electrolytes. Cardiovascular: - Consult: Dr. Fitzgerald - Requiring norepinephrine gtts to maintain MAP >65. Holding antihypertensives. - Will start Vasopressin, Hydrocortisone,and Fludicortisone given increased Levophed requirements. - LV Diastolic/Systolic Dysfunction -c/w home Clopidogrel Pulm / Resp: - Acute on Chronic Hypoxic and Hypercapneic Respiratory Failure likely secondary to pneumonia. - Continue albuterol PRN. - Solu-medrol d/vane given initiation of other steroids. - CXR this AM pending. - Continues to require increased ventilatory support. Will not trial wean given events overnight. - SPO2 goal 90% - pH goal 7.2, allowing for permissive hypercapnia. - Pt not stable for bedside trach again today. Gastrointestinal: - Mild diarrhea noted in rectal tube. Possibly secondary to tube feeds. Infectious Disease: - Consult Dr. Khan - h/o HIV: continue HAART Therapy per ID - Leukocytosis trending stable with tachycardia but without fever overnight. Likely secondary to worsening pneumonia versus other infectious process. Blood cultures; NGTD. - Continue Meropenem and Nafcillin for antibiotic coverage per ID service. Integumentary: - Decubitus ulcer. Dressing changes to be performed by nursing staff. FEN: -Tube Feed per dietary. - D/C maintenance fluids Prophylaxis: -DVT: Heparin SQ -GI: Pantoprazole Code Status: - DNR Family Conversation: - Daughter Kenzie updated at beside. Will begin to call other family members to discuss goals of treatment. Requested [place] paperwork to be completed. Will pass paperwork onto primary team. Dispo: Continue to monitor the intubated pt in the ICU. Consider trach placement when more stable. Andrez Tolentino MD, PGY1 ICU Consult Service Visit type - Emergency Visit Emergency Visit: No - New Patient This patient is new to me today: No - Critical Care Critical Care patient: Yes Total Critical Care Time (in minutes): 40 Critical Care Statement: The care of this patient involved high complexity decision making to prevent further life threatening deterioration of the patient 's condition and/or to evaluate & treat vital organ system(s) failure or risk of failure.
[2018-08-29] MEDS: FLUDROCORTISONE ACETATE 0.1 MG TABLET (FP) NGT SCH (14:30)
--- NOTE | 2018-08-29 15:23 | PN ---
Progress Note, Physician History of Present Illness: UNRESPONSIVE BREATHING NON LABORED ON VENTILATOR AFEBRILE PRESSORS WBC REMAINS ELEVATEDN BUT IMPROVED BC MSSA SPUTUM C/S MSSA PSEUDOMONAS - Current Medication List Current Medications: Active Medications Abacavir/Dolutegravir/Lamivudine (Triumeq (Non-Formulary)) 1 each PO DAILY [facility] Last Admin: 08/29/18 10:00 Dose: 1 each Acetaminophen (Tylenol Oral Solution -) 1,000 mg PO Q6H PRN PRN Reason: FEVER Last Admin: 08/27/18 02:28 Dose: 1,000 mg Chlorhexidine Gluconate (Peridex -) 15 ml MM BID [facility] Last Admin: 08/29/18 10:00 Dose: 15 ml Fludrocortisone Acetate (Florinef -) 0.05 mg NGT DAILY [facility] Heparin Sodium (Porcine) (Heparin -) 5,000 unit SQ TID [facility]ON Last Admin: 08/29/18 05:34 Dose: 5,000 unit Hydrocortisone Sodium Succinate (Solu-Cortef -) 100 mg IVPUSH Q8H-IV [facility] IV Flush (Triple Lumen Flush) 4 ml IVPUSH PRN PRN PRN Reason: Protocol IV Flush (Triple Lumen Flush) 4 ml IVPUSH BID AL[facility]ON Last Admin: 08/29/18 10:00 Dose: 4 ml Nafcillin Sodium 2 gm/ (Dextrose) 100 mls @ 100 mls/hr IVPB Q4H-IV [facility]; Protocol Last Admin: 08/29/18 11:00 Dose: 100 mls/hr Fentanyl 500 mcg/ Dextrose 100 mls @ 5 mls/hr IVPB TITR AL[facility]; Protocol Last Admin: 08/29/18 13:45 Dose: Not Given Meropenem 500 mg/ Dextrose 100 mls @ 200 mls/hr IVPB Q8H-IV [facility] Last Admin: 08/29/18 10:30 Dose: 200 mls/hr Sodium Chloride (Normal Saline -) 250 mls @ 3,000 mls/hr IV PRN PRN PRN Reason: Hypotension during Dialysis Stop: 08/28/18 19:22 Propofol (Diprivan -) 1,000,000 mcg in 100 mls @ 2.101 mls/hr IVPB TITR [facility]ON; Protocol Last Admin: 08/29/18 08:27 Dose: 5 mcg/kg/min, 2.101 mls/hr Norepinephrine Bitartrate 8, (000 mcg/ Sodium Chloride) 508 mls @ 7.5 mls/hr IV TITR [facility]ON Last Admin: 08/29/18 10:00 Dose: 7.5 mls/hr Midazolam HCl 100 mg/ Sodium (Chloride) 100 mls @ 1 mls/hr IVPB TITR AL[facility]; Protocol Last Admin: 08/29/18 12:00 Dose: 3 mg/hr, 3 mls/hr Vasopressin 50 units/ Sodium (Chloride) 100 mls @ 4 mls/hr IVPB ASDIR AL[facility]; Protocol Last Admin: 08/29/18 12:14 Dose: 2 units/hr, 4 mls/hr Pantoprazole Sodium (Protonix Iv) 40 mg IVPUSH DAILY [facility] Last Admin: 08/29/18 10:00 Dose: 40 mg - Objective Vital Signs: Vital Signs Temperature 98.4 F 08/29/18 06:00 Pulse Rate 137 H 08/29/18 12:14 Respiratory Rate 32 H 08/29/18 13:57 Blood Pressure 87/63 L 08/29/18 12:14 O2 Sat by Pulse Oximetry (%) 93 L 08/29/18 08:28 Constitutional: Yes: No Distress Eyes: Yes: Conjunctiva Clear Cardiovascular: Yes: Regular Rate and Rhythm, S1, S2 Respiratory: Yes: Mechanically Ventilated Gastrointestinal: Yes: Normal Bowel Sounds, Soft. No: Tenderness Edema: LLE: 1+, RLE: 1+ Labs: CBC, BMP 08/29/18 10:45 08/29/18 10:45 INR, PTT INR 1.12 (0.83-1.09) H 08/25/18 06:00 Assessment/Plan SEPSIS MSSA BACTEREMIA ? PNEUMONIA ?ENDOCARDITIS RESPIRATORY FAILURE/ COPD EXACERBATION HCAP RENAL FAILURE MARKED LEUKOCYTOSIS HIV+ CD4 437 CONTINUE NAFCILLIN/ MEROPENEM HEMODYNAMIC/ VENTILATORY SUPPORT CONTINUE ART PROGNOSIS POOR
--- NOTE | 2018-08-29 16:10 | PN ---
Progress Note, Physician History of Present Illness: intubated and sedated - Current Medication List Current Medications: Active Medications Abacavir/Dolutegravir/Lamivudine (Triumeq (Non-Formulary)) 1 each PO DAILY AL[facility]ON Last Admin: 08/29/18 10:00 Dose: 1 each Acetaminophen (Tylenol Oral Solution -) 1,000 mg PO Q6H PRN PRN Reason: FEVER Last Admin: 08/27/18 02:28 Dose: 1,000 mg Chlorhexidine Gluconate (Peridex -) 15 ml MM BID AL[facility]ON Last Admin: 08/29/18 10:00 Dose: 15 ml Fludrocortisone Acetate (Florinef -) 0.05 mg NGT DAILY AL[facility]ON Last Admin: 08/29/18 14:30 Dose: 0.05 mg Heparin Sodium (Porcine) (Heparin -) 5,000 unit SQ TID AL[facility]ON Last Admin: 08/29/18 14:30 Dose: 5,000 unit Hydrocortisone Sodium Succinate (Solu-Cortef -) 100 mg IVPUSH Q8H-IV AL[facility] Last Admin: 08/29/18 12:30 Dose: 100 mg IV Flush (Triple Lumen Flush) 4 ml IVPUSH PRN PRN PRN Reason: Protocol IV Flush (Triple Lumen Flush) 4 ml IVPUSH BID AL[facility]ON Last Admin: 08/29/18 10:00 Dose: 4 ml Nafcillin Sodium 2 gm/ (Dextrose) 100 mls @ 100 mls/hr IVPB Q4H-IV AL[facility]ON; Protocol Last Admin: 08/29/18 15:00 Dose: 100 mls/hr Fentanyl 500 mcg/ Dextrose 100 mls @ 5 mls/hr IVPB TITR AL[facility]; Protocol Last Admin: 08/29/18 13:45 Dose: Not Given Meropenem 500 mg/ Dextrose 100 mls @ 200 mls/hr IVPB Q8H-IV [facility] Last Admin: 08/29/18 10:30 Dose: 200 mls/hr Sodium Chloride (Normal Saline -) 250 mls @ 3,000 mls/hr IV PRN PRN PRN Reason: Hypotension during Dialysis Stop: 08/28/18 19:22 Propofol (Diprivan -) 1,000,000 mcg in 100 mls @ 2.101 mls/hr IVPB TITR [facility]; Protocol Last Admin: 08/29/18 08:27 Dose: 5 mcg/kg/min, 2.101 mls/hr Norepinephrine Bitartrate 8, (000 mcg/ Sodium Chloride) 508 mls @ 7.5 mls/hr IV TITR AL[facility] Last Admin: 08/29/18 10:00 Dose: 7.5 mls/hr Midazolam HCl 100 mg/ Sodium (Chloride) 100 mls @ 1 mls/hr IVPB TITR AL[facility]ON; Protocol Last Admin: 08/29/18 12:00 Dose: 3 mg/hr, 3 mls/hr Vasopressin 50 units/ Sodium (Chloride) 100 mls @ 4 mls/hr IVPB ASDIR AL[facility]ON; Protocol Last Admin: 08/29/18 12:14 Dose: 2 units/hr, 4 mls/hr Pantoprazole Sodium (Protonix Iv) 40 mg IVPUSH DAILY AL[facility]ON Last Admin: 08/29/18 10:00 Dose: 40 mg - Objective Vital Signs: Vital Signs Temperature 98.4 F 08/29/18 06:00 Pulse Rate 137 H 08/29/18 12:14 Respiratory Rate 32 H 08/29/18 13:57 Blood Pressure 87/63 L 08/29/18 12:14 O2 Sat by Pulse Oximetry (%) 93 L 08/29/18 08:28 Constitutional: Yes: No Distress HENT: Yes: Atraumatic Neck: Yes: Supple Cardiovascular: Yes: Regular Rate and Rhythm Respiratory: Yes: CTA Bilaterally Gastrointestinal: Yes: Normal Bowel Sounds Extremities: Yes: WNL Neurological: Yes: Other (intubated and sedated) Labs: CBC, BMP 08/29/18 10:45 08/29/18 10:45 INR, PTT INR 1.12 (0.83-1.09) H 08/25/18 06:00 Problem List - Problems (1) Altered mental status, unspecified Code(s): R41.82 - ALTERED MENTAL STATUS, UNSPECIFIED Qualifiers: Altered mental status type: somnolence Qualified Code(s): R40.0 - Somnolence (2) COPD with acute exacerbation Assessment/Plan: steroids duo nebs INTUBATED Code(s): J44.1 - CHRONIC OBSTRUCTIVE PULMONARY DISEASE W (ACUTE) EXACERBATION (3) Elevated troponin I level Code(s): R74.8 - ABNORMAL LEVELS OF OTHER SERUM ENZYMES (4) Hyperkalemia Code(s): E87.5 - HYPERKALEMIA (5) COPD (chronic obstructive pulmonary disease) Code(s): J44.9 - CHRONIC OBSTRUCTIVE PULMONARY DISEASE, UNSPECIFIED Qualifiers: (6) HIV Assessment/Plan: continue home meds Code(s): Z21 - ASYMPTOMATIC HUMAN IMMUNODEFICIENCY VIRUS INFECTION STATUS (7) HTN (hypertension) Assessment/Plan: bp low due to sepsis on pressors Code(s): I10 - ESSENTIAL (PRIMARY) HYPERTENSION Qualifiers: Hypertension type: essential hypertension Qualified Code(s): I10 - Essential (primary) hypertension (8) Hyperlipidemia Code(s): E78.5 - HYPERLIPIDEMIA, UNSPECIFIED Qualifiers: Hyperlipidemia type: pure hypercholesterolemia Qualified Code(s): E78.00 - Pure hypercholesterolemia, unspecified; E78.0 - Pure hypercholesterolemia (9) PVD (peripheral vascular disease) Code(s): I73.9 - PERIPHERAL VASCULAR DISEASE, UNSPECIFIED (10) CHF (congestive heart failure) Code(s): I50.9 - HEART FAILURE, UNSPECIFIED Qualifiers: Heart failure type: diastolic Heart failure chronicity: chronic Qualified Code(s): I50.32 - Chronic diastolic (congestive) heart failure (11) Sepsis Assessment/Plan: on abx monitor wbc Code(s): A41.9 - SEPSIS, UNSPECIFIED ORGANISM (12) Respiratory acidosis Code(s): E87.2 - ACIDOSIS (13) Respiratory failure requiring intubation Code(s): J96.90 - RESPIRATORY FAILURE, UNSP, UNSP W HYPOXIA OR HYPERCAPNIA Assessment/Plan cc time in icu 35 min filled fmla form
[2018-08-29] MEDS: methylPREDNISolone NA SUCC 40 MG/1 ML VIAL IVPUSH SCH (16:59)
[2018-08-30] MEDS: NAFCILLIN - 2 GM in DEXTROSE 5%-WATER - 100 ML IVPB SCH ×6 (01:10→21:56)
[2018-08-30] MEDS: HYDROCORTISONE SOD SUCCINATE 100 MG/2 ML VIAL IVPUSH SCH ×3 (01:11→17:52)
[2018-08-30] MEDS: MEROPENEM 500 MG in DEXTROSE 5%-WATER 100 ML IVPB SCH ×3 (01:11→17:51)
[2018-08-30] MEDS ORDERED: fentaNYL CITRATE 250 MCG/5 ML VIAL ONE ×4 (03:29→22:50)
[2018-08-30] MEDS ORDERED: PROPOFOL 1,000,000 MCG/100 ML VIAL ONE (03:29)
[2018-08-30] MEDS ORDERED: NOREPINEPHRINE BITARTRATE 4 MG/4 ML ML IV ONE ×2 (03:30→12:48)
[2018-08-30] MEDS: NOREPINEPHRINE BITARTRATE 8,000 MCG in SODIUM CHLORIDE 500 ML IV SCH ×3 (03:53→13:05)
[2018-08-30] MEDS: HEPARIN NA (PORCINE) 5,000 UNITS/ML 1ML VIAL SQ SCH ×3 (05:41→21:56)
[2018-08-30] MEDS: BANATROL PLUS POWDER PACKET PO SCH ×3 (05:42→21:56)
[2018-08-30] MEDS ORDERED: FENTANYL INJECTION 500 MCG in DEXTROSE 5%-WATER - 90 ML IVPB SCH (06:45)
[2018-08-30 06:48] LABS: BASO % 0.1 % (0-2.0); EOS % 0.1 % (0-4.5); HEMOGLOBIN 7.4 GM/dL (10.7-15.3); LYMPH % 0.7 % (8-40); MCH 30.4 pg (25.7-33.7); MCHC 33.9 g/dl (32.0-36.0); MEAN CELL VOLUME 89.9 fl (80-96); MEAN PLT VOLUME 8.2 fl (7.5-11.1); MONO % 4.9 % (3.8-10.2); NEUT % 94.2 % (42.8-82.8); PLATELET COUNT 332 K/MM3 (134-434); RBC 2.45 M/mm3 (3.60-5.2); RDW 15.6 % (11.6-15.6); WHITE BLOOD COUNT 29.3 K/mm3 (4.0-10.0)
[2018-08-30 07:18] LABS: ANION GAP 15 MMOL/L (8-16); BLOOD UREA NITROGEN 75 mg/dL (7-18); CALCIUM 7.9 mg/dL (8.5-10.1); CHLORIDE 91 mmol/L (98-107); CO2 21 mmol/L (21-32); GLUCOSE,RANDOM 196 mg/dL (74-106); MAGNESIUM 1.9 mg/dL (1.8-2.4); POTASSIUM 4.1 mmol/L (3.5-5.1); SODIUM 127 mmol/L (136-145)
--- NOTE | 2018-08-30 07:21 | PN ---
Progress Note (short form) - Note Progress Note: Chief Complaint: Events noted, notes reviewed, remains intubated and sedated, remains on pressors, tachypnea improved/resolved, sinus tachycardia noted- persistent History of Present Illness: Seen and examined in the ICU. Events noted, notes reviewed, remains intubated and sedated, remains on pressors, tachypnea improved/resolved, sinus tachycardia noted- persistent Overall poor prognosis, DNR Persistently elevated WBC counts, sepsis syndrome - Current Medication List Current Medications Abacavir/Dolutegravir/Lamivudine (Triumeq (Non-Formulary)) 1 each PO DAILY [facility]ON Last Admin: 08/29/18 10:00 Dose: 1 each Acetaminophen (Tylenol Oral Solution -) 1,000 mg PO Q6H PRN PRN Reason: FEVER Last Admin: 08/27/18 02:28 Dose: 1,000 mg Chlorhexidine Gluconate (Peridex -) 15 ml MM BID AL[facility]ON Last Admin: 08/29/18 21:58 Dose: 15 ml Fludrocortisone Acetate (Florinef -) 0.05 mg NGT DAILY AL[facility]ON Last Admin: 08/29/18 14:30 Dose: 0.05 mg Heparin Sodium (Porcine) (Heparin -) 5,000 unit SQ TID AL[facility]ON Last Admin: 08/30/18 05:41 Dose: 5,000 unit Hydrocortisone Sodium Succinate (Solu-Cortef -) 100 mg IVPUSH Q8H-IV AL[facility]ON Last Admin: 08/30/18 01:11 Dose: 100 mg IV Flush (Triple Lumen Flush) 4 ml IVPUSH PRN PRN PRN Reason: Protocol IV Flush (Triple Lumen Flush) 4 ml IVPUSH BID AL[facility]ON Last Admin: 08/29/18 22:00 Dose: 4 ml Nafcillin Sodium 2 gm/ (Dextrose) 100 mls @ 100 mls/hr IVPB Q4H-IV AL[facility]ON; Protocol Last Admin: 08/30/18 05:41 Dose: 100 mls/hr Meropenem 500 mg/ Dextrose 100 mls @ 200 mls/hr IVPB Q8H-IV [facility]ON Last Admin: 08/30/18 01:11 Dose: 200 mls/hr Sodium Chloride (Normal Saline -) 250 mls @ 3,000 mls/hr IV PRN PRN PRN Reason: Hypotension during Dialysis Stop: 08/28/18 19:22 Propofol (Diprivan -) 1,000,000 mcg in 100 mls @ 2.101 mls/hr IVPB TITR AL[facility]ON; Protocol Last Titration: 08/29/18 23:17 Dose: 17.13 mcg/kg/min, 7.2 mls/hr Norepinephrine Bitartrate 8, (000 mcg/ Sodium Chloride) 508 mls @ 7.5 mls/hr IV TITR AL[facility]ON Last Admin: 08/30/18 03:53 Dose: 56.3 mls/hr Midazolam HCl 100 mg/ Sodium (Chloride) 100 mls @ 1 mls/hr IVPB TITR ALYSON; Protocol Last Titration: 08/29/18 17:30 Dose: 1 mg/hr, 1 mls/hr Vasopressin 50 units/ Sodium (Chloride) 100 mls @ 4 mls/hr IVPB ASDIR ALYSON; Protocol Last Titration: 08/29/18 21:05 Dose: 5 units/hr, 10 mls/hr Fentanyl 500 mcg/ Sodium (Chloride) 100 mls @ 5 mls/hr IVPB TITR ALYSON; Protocol Pantoprazole Sodium (Protonix Iv) 40 mg IVPUSH DAILY AL[facility]ON Last Admin: 08/29/18 10:00 Dose: 40 mg Review of Systems Unable to obtain - Objective Vital Signs: Last Vital Signs Temp Pulse Resp BP Pulse Ox 98.6 F 113 H 30 H 115/70 99 08/30/18 06:00 08/30/18 06:00 08/30/18 06:09 08/30/18 06:00 08/29/18 22:00 Intake & Output 08/27/18 08/28/18 08/29/18 08/30/18 23:59 23:59 23:59 23:59 Intake Total 1395 2586 2824 2004 Output Total 35 760 300 150 Balance 1360 1826 2524 1854 Weight 154 lb 14.4 oz 157 lb 6.561 oz 154 lb 6 oz 166 lb 3.657 oz Neck: Supple Negative JVD No Bruit Cardiovascular: S1 S2 Regular Rate and Rhythm Tachycardia Respiratory: Diminished Breath Sounds at the Bases Bilaterally Bilateral Course Rhonchi Gastrointestinal: Soft Benign Normal Bowel Sounds Ext: Negative Edema Labs: CBC, BMP 08/30/18 06:15 08/30/18 06:15 Hepatic Panel Total Bilirubin 2.3 mg/dL (0.2-1) H 08/29/18 10:45 Direct Bilirubin 0.7 mg/dL (0.0-0.2) H 08/28/18 05:30 AST 47 U/L (15-37) H 08/29/18 10:45 ALT 10 U/L (13-61) L 08/29/18 10:45 Alkaline Phosphatase 68 U/L (45-117) 08/29/18 10:45 Albumin 1.2 g/dl (3.4-5.0) L 08/29/18 10:45 INR, PTT INR 1.12 (0.83-1.09) H 08/25/18 06:00 ABG Results ABG pH 7.22 (7.35-7.45) L 08/28/18 06:45 ABG pCO2 at Pt Temp 59.1 mmHg (35-45) H 08/28/18 06:45 ABG pO2 at Pt Temp 117 mmHg (80-105) H 08/28/18 06:45 ABG HCO3 23.1 mmol/L (22-27) 08/28/18 06:45 ABG O2 Sat (Measured) 97.5 % (95-98) 08/28/18 06:45 ABG O2 Content 9.6 % vol (15-22) L* 08/28/18 06:45 ABG Base Excess -4.0 meq/l (-2-2) L 08/28/18 06:45 Assessment/Plan ASSESSMENT: 1. Acute on chronic hypercapneic/hypoxemic respiratory failure on mechanical ventilation, metabolic acidosis, post HD, sepsis syndrome source unclear, persistent pulmonary infiltrate and small effusion, as outlined question empyema 2. Exacerbation of chronic obstructive pulmonary disease 3. Right Heart Failure with Severe Pulmonary HTN 4. Acute on chronic class I-II NYHA classification LV failure related to diastolic dysfunction 5. CAD post CABG with evidence of demand ischemic injury angina pectoris 7. HTN, currently hypotensive on pressors 8. Hypercholesterolemia 9. PAD post SFA stent 10. Acute on CKD, pre-renal azotemia, post HD 11. Toxic metabolic encephelopathy 12. HIV and Hepatitis C 13. History of cholelithiasis 14. Anemia post transfusion PLAN: 1. Continue to hold Plavix, related to anemia, again as outlined transfuse to maintain Hg equal or > 8.0 2. Pressors/Norepinephrine and Vasopressin to maintain MAP > 65 3. Steroid and bronchodilator as per critical care team 4. Antibiotic as per the primary/ID team, re-evaluation of possible sepsis source, lungs/possible empyema/possible intra-abdominal source 5. HD as per renal service 6. Ventilator management as per the ICU team Overall poor prognosis Tabatha Hogan M.D.
[2018-08-30] MEDS: FENTANYL INJECTION 500 MCG in SODIUM CHLORIDE 90 ML IVPB SCH ×4 (07:23→17:36)
[2018-08-30 07:58] LABS: PHOSPHOROUS 9.1 mg/dL (2.5-4.9)
[2018-08-30] MEDS: VASOPRESSIN 50 UNITS in SODIUM CHLORIDE 97.5 ML IVPB SCH ×2 (09:21→21:53)
[2018-08-30] MEDS ORDERED: PT OWN MED DRAWER 7, Y5N ONE ×6 (09:36→21:55)
[2018-08-30] MEDS: PANTOPRAZOLE SODIUM 40 MG VIAL IVPUSH SCH (09:54)
[2018-08-30] MEDS: FLUDROCORTISONE ACETATE 0.1 MG TABLET (FP) NGT SCH (09:55)
[2018-08-30] MEDS: ABACAVIR/DOLUTEGRAVIR/LAMIVUDI (TRIUMEQ) TABLET -NF PO SCH (09:56)
[2018-08-30] MEDS: PROPOFOL 1,000,000 MCG/100 ML VIAL IVPB SCH ×3 (10:09→22:00)
[2018-08-30] MEDS: CHLORHEXIDINE GLUCONATE 0.12% 15ML CUP MM SCH ×2 (10:12→21:57)
[2018-08-30 10:19] LABS: ANISOCYTOSIS 1+; MACROCYTOSIS 0; PLATELET ESTIMATE NORMAL
--- NOTE | 2018-08-30 13:49 | PROC ---
Procedure Note Procedure: Femoral Central Line Procedure Note INDICATION: Pt receiving multiple IV medications including vasoactive products. PROCEDURE MULTIFOCAL LENS ASSEMBLER: Andrez Tolentino M.D. Resident ATTENDING PHYSICIAN: Dr. Suero In Attendance (Y/N) Y CONSENT: Consent was obtained from pt's daughter Netta via telephone prior to the procedure. Indications, risks, and benefits were explained at length. PROCEDURE SUMMARY: A time out was performed. My hands were washed immediately prior to the procedure. I wore a surgical cap, mask with protective eyewear, full gown and sterile gloves throughout the procedure. The patient was placed in supine position. Right inguinal region was prepped using chlorhexidine scrub and draped in sterile fashion using a surgical drape. The femoral pulse was palpated. The femoral vein was identified using the ultrasound. Anesthesia was achieved over the vein using 1% lidocaine. Using real-time out of plane guidance , the introducer needle was inserted into the femoral vein under direct ultrasound visualization. Venous blood was withdrawn. The syringe was removed and a guidewire was advanced into the introducer needle. The guidewire was visualized in the femoral vein by ultrasound. A small incision was made at the skin surface with a scalpel and the introducer needle was exchanged for a dilator over the guidewire. After appropriate dilation was obtained, the dilator was exchanged over the wire for a triple lumen central venous catheter. The wire was removed and the catheter was sutured in place. A bio patch was placed and the insertion site was covered with a sterile tegaderm. The patient tolerated the procedure without any hemodynamic compromise. At time of procedure completion, all ports aspirated and flushed properly. Estimated blood loss is <10cc.
--- NOTE | 2018-08-30 14:21 | PN ---
Physical Exam: SUBJECTIVE: Patient seen and examined HD# 22 Intubation Day 20 Overnight Events: No acute events reported overnight. OBJECTIVE: Vital Signs Period Temp Pulse Resp BP Sys/Buck Pulse Ox Last 24 Hr 98.2 F-98.7 F 113-132 28-30 90-119/44-77 99-99 Intake & Output 08/29/18 08/30/18 08/30/18 22:59 06:59 14:59 Intake Total 1496 2004 Output Total 200 150 Balance 1296 1854 Weight 75.4 kg Intake: IV 1396 1704 DIPRIVAN - 1,000,000 mcg 38 79 In 100 ml @ 5 MCG/KG/MIN 2.101 mls/hr IVPB TITR [facility] Rx#:[id number] Levophed - 8,000 Mcg In 417 626 Normal Saline - 500 ml @ 7.5 mls/hr IV TITR [facility] Rx #:[id number] Pitressin - 50 Units In 61 111 Normal Saline - 97.5 ml @ 2 UNITS/HR 4 mls/hr IVPB ASDIR [facility] Rx#: [id number] RIJ 500 600 Sublimaze Injection - 500 366 Mcg In D5w - 90 ml @ 25 MCG/HR 5 mls/hr IVPB TITR [facility] Rx#:[id number] Sublimaze Injection - 500 277 Mcg In D5w - 90 ml @ 25 MCG/HR 5 mls/hr IVPB TITR [facility] Rx#:[id number] Versed - 100 mg In Normal 14 11 Saline - 100 ml @ 1 MG/ HR 1 mls/hr IVPB TITR [facility] Rx#:[id number] Oral Supplement 100 Tube Irrigant 300 Output: Urine 200 150 Torres 200 150 Other: Voiding Method Indwelling Catheter Indwelling Catheter Bowel Movement Yes Yes Weight Measurement Method Built in [facility] Lines: - R IJ (Day 8) - L Triple Lumen Dialysis Catheter (Day 4) Drains: - NG - Torres - Rectal tube Supplemental Oxygen: Ventilator: Mode: AC Vent rate: 30 Tv: 370 PEEP: 8 FiO2: 60% Physical Exams: GENERAL: The patient is sedated. No localized withdrawal. HEAD: Normal with no signs of trauma. EYES: Closed. LUNGS: Intubated and mechanically ventilated. Breath sounds equal, with trace rhonchi in right middle lobe. No wheezes or rales. HEART: Tachycardic rate with regular rhythm, S1, S2 without murmur, rub or gallop. ABDOMEN: Soft and nondistended. EXTREMITIES: 2+ pulses, warm, well-perfused. 2+ edema to all extremities U>L. SKIN: Warm and dry. Stage 2 decubitus ulcer with dressing in place. Laboratory Results - last 24 hr 08/30/18 08/30/18 06:15 06:15 WBC 29.3 H RBC 2.45 L Hgb 7.4 L Hct 22.0 L MCV 89.9 MCH 30.4 MCHC 33.9 RDW 15.6 Plt Count 332 MPV 8.2 Absolute Neuts (auto) 27.6 H Neutrophils % 94.2 H Neutrophils % (Manual) 92.0 H Band Neutrophils % 3.0 Lymphocytes % 0.7 L Lymphocytes % (Manual) 2.0 L D Monocytes % 4.9 Monocytes % (Manual) 3 L Eosinophils % 0.1 Eosinophils % (Manual) 0.0 Basophils % 0.1 Basophils % (Manual) 0.0 Myelocytes % (Man) 0 Promyelocytes % (Man) 0 Blast Cells % (Manual) 0 Nucleated RBC % 0 Metamyelocytes 0 Hypochromia 0 Platelet Estimate Normal Polychromasia 0 Poikilocytosis 0 Anisocytosis 1+ Microcytosis 1+ Macrocytosis 0 Sodium 127 L Potassium 4.1 Chloride 91 L Carbon Dioxide 21 Anion Gap 15 BUN 75 H Creatinine 4.0 H Creat Clearance w eGFR 11.17 Random Glucose 196 H Calcium 7.9 L Phosphorus 9.1 H* Magnesium 1.9 Active Medications Generic Name Dose Route Start Last Admin Trade Name Freq PRN Reason Stop Dose Admin Abacavir/Dolutegravir/Lamivudine 1 each 08/10/18 14:00 08/30/18 09:56 Triumeq (Non-Formulary) PO 1 each DAILY [facility] Administration Acetaminophen 1,000 mg 08/16/18 16:11 08/27/18 02:28 Tylenol Oral Solution - PO 1,000 mg Q6H PRN Administration FEVER Albumin Human 12.5 gm 08/30/18 10:15 Albumin Human 25% IVPB Q30M [facility] Chlorhexidine Gluconate 15 ml 08/17/18 22:00 08/30/18 10:12 Peridex - MM 15 ml BID [facility] Administration Fludrocortisone Acetate 0.05 mg 08/29/18 13:15 08/30/18 09:55 Florinef - NGT 0.05 mg DAILY [facility] Administration Heparin Sodium (Porcine) 5,000 unit 08/17/18 14:00 08/30/18 05:41 Heparin - SQ 5,000 unit TID [facility] Administration Hydrocortisone Sodium Succinate 100 mg 08/29/18 11:30 08/30/18 09:54 Solu-Cortef - IVPUSH 100 mg Q8H-IV [facility] Administration IV Flush 4 ml 08/23/18 11:37 Triple Lumen Flush IVPUSH PRN PRN Protocol IV Flush 4 ml 08/27/18 22:00 08/29/18 22:00 Triple Lumen Flush IVPUSH 4 ml BID [facility] Administration Nafcillin Sodium 2 gm/ 100 mls @ 100 mls/hr 08/19/18 20:00 08/30/18 09:57 Dextrose IVPB 100 mls/hr Q4H-IV [facility] Administration Protocol Meropenem 500 mg/ Dextrose 100 mls @ 200 mls/hr 08/24/18 18:00 08/30/18 09:57 IVPB 200 mls/hr Q8H-IV [facility] Administration Propofol 1,000,000 mcg in 100 mls @ 2.101 mls/hr 08/29/18 07:45 08/30/18 12: 27 Diprivan - IVPB 40 mcg/kg/min TITR [facility] 16.806 mls/hr Administration Protocol 5 MCG/KG/MIN Norepinephrine Bitartrate 8, 508 mls @ 7.5 mls/hr 08/29/18 08:45 08/30/18 13: 05 000 mcg/ Sodium Chloride IV 56.3 mls/hr TITR [facility] Administration Midazolam HCl 100 mg/ Sodium 100 mls @ 1 mls/hr 08/29/18 11:45 08/29/18 17:30 Chloride IVPB 1 mg/hr TITR [facility] 1 mls/hr Titration Protocol 1 MG/HR Vasopressin 50 units/ Sodium 100 mls @ 4 mls/hr 08/29/18 11:45 08/30/18 09:21 Chloride IVPB 3 units/hr ASDIR [facility] 6 mls/hr Administration Protocol 2 UNITS/HR Fentanyl 500 mcg/ Sodium 100 mls @ 5 mls/hr 08/30/18 07:15 08/30/18 13:04 Chloride IVPB 125 mcg/hr TITR [facility] 25 mls/hr Administration Protocol 25 MCG/HR Sodium Chloride 250 mls @ 3,000 mls/hr 08/30/18 10:01 Normal Saline - IV 08/31/18 10:01 PRN PRN Hypotension during Dialysis Pantoprazole Sodium 40 mg 08/11/18 13:15 08/30/18 09:54 Protonix Iv IVPUSH 40 mg DAILY [facility] Administration ASSESSMENT/PLAN: Drips: - Fentanyl - Propofol - Versed - Levophed - Vasopressin Anti Infectives: - Nafcillin Day 12 - Meropenem Day 13 67 year old female with HTN, CAD s/p CABG in 2009, PVD with B/L LE stents, HIV, HEP C, COPD and CHF. Admitted to the ICU for Acute hypoxic hypercapnic respiratory failure and dehydration. Neuro: - Currently sedated with Propofol, Fentanyl, and Versed. Will not attempt sedation wean given current respiratory status. Endocrine: - Consult: Dr. Leach - Cr continues to trend upward. Suspect likely acute tubular necrosis given metabolic acidosis. - Dialysis per renal service. Anticipate run today. Will defer electrolyte correction. - Continue to trend electrolytes. Cardiovascular: - Consult: Dr. Fitzgerald / Dr. Hogan - Requiring Levophed gtts to maintain MAP >65. Holding antihypertensives. - Continue Vasopressin, Hydrocortisone,and Fludicortisone given increased Levophed requirements. - LV Diastolic/Systolic Dysfunction - Holding home Clopidogrel given anemia. - Hemoglobin goal >8.0. Will transfuse today during dialysis. Verbal consent obtained from daughter Netta via telephone. Pulm / Resp: - Acute on Chronic Hypoxic and Hypercapneic Respiratory Failure likely secondary to pneumonia. - Continue albuterol PRN. - Solu-medrol d/vane given initiation of other steroids. - CXR this AM revealed right pleural effusion and possible left pleural effusion. No significant change from yesterday. - Continues to require increased ventilatory support. Will not trial wean given events overnight. - SPO2 goal 90% - pH goal 7.2, allowing for permissive hypercapnia. - Pt not stable for bedside trach again today. Gastrointestinal: - Tube feeds held overnight as the hospital was out of nephro feeds. Scheduled to restart with breakfast however nurse pulled approx. 400cc residual. Given large amount of residual combined with poor urine output and diarrhea, will hold feeds till this evening. - Mild diarrhea noted in rectal tube. Possibly secondary to tube feeds. Infectious Disease: - Consult Dr. Khan - h/o HIV: continue HAART Therapy per ID - Leukocytosis trending stable with tachycardia but without fever overnight. Likely secondary to worsening pneumonia versus other infectious process. Blood cultures; NGTD. - Continue Meropenem and Nafcillin for antibiotic coverage per ID service. - Hepatitis panels pending. Integumentary: - Decubitus ulcer. Dressing changes to be performed by nursing staff. FEN: -Tube Feed per dietary. Prophylaxis: -DVT: Heparin SQ -GI: Pantoprazole Code Status: - DNR Procedures: - Will discontinue right IJ central line and transition to femoral line. Anticipate changing back to a fresh right IJ. Dispo: Continue to monitor the intubated pt in the ICU. Consider trach placement when more stable. Andrez Tolentino MD, PGY1 ICU Consult Service Visit type - Emergency Visit Emergency Visit: No - New Patient This patient is new to me today: No - Critical Care Critical Care patient: Yes Total Critical Care Time (in minutes): 40 Critical Care Statement: The care of this patient involved high complexity decision making to prevent further life threatening deterioration of the patient 's condition and/or to evaluate & treat vital organ system(s) failure or risk of failure.
--- NOTE | 2018-08-30 14:29 | PN ---
Teaching Attending Note Name of Resident: Andrez Tolentino ATTENDING PHYSICIAN STATEMENT I saw and evaluated the patient. I reviewed the resident's note and discussed the case with the resident. I agree with the resident's findings and plan as documented. SUBJECTIVE: Patient seen and examined in the ICU. Remains intubated, sedated. AC Mode of vent, 60% FiO2. 15mcq levophed drip and Vasopressin 3 units for hemodynamic support. OBJECTIVE: Intake & Output 08/27/18 08/28/18 08/29/18 08/30/18 23:59 23:59 23:59 23:59 Intake Total 1395 2586 2824 2003 Output Total 35 760 300 150 Balance 1360 1826 2524 1854 Weight 154 lb 14.4 oz 157 lb 6.561 oz 154 lb 6 oz 166 lb 3.657 oz Last Vital Signs Temp Pulse Resp BP Pulse Ox 98.2 F 120 H 30 H 106/73 99 08/30/18 10:00 08/30/18 13:05 08/30/18 12:00 08/30/18 13:05 08/29/18 22:00 Active Medications Abacavir/Dolutegravir/Lamivudine (Triumeq (Non-Formulary)) 1 each PO DAILY [facility] Last Admin: 08/30/18 09:56 Dose: 1 each Acetaminophen (Tylenol Oral Solution -) 1,000 mg PO Q6H PRN PRN Reason: FEVER Last Admin: 08/27/18 02:28 Dose: 1,000 mg Albumin Human (Albumin Human 25%) 12.5 gm IVPB Q30M [facility] Chlorhexidine Gluconate (Peridex -) 15 ml MM BID [facility] Last Admin: 08/30/18 10:12 Dose: 15 ml Fludrocortisone Acetate (Florinef -) 0.05 mg NGT DAILY [facility] Last Admin: 08/30/18 09:55 Dose: 0.05 mg Heparin Sodium (Porcine) (Heparin -) 5,000 unit SQ TID [facility] Last Admin: 08/30/18 05:41 Dose: 5,000 unit Hydrocortisone Sodium Succinate (Solu-Cortef -) 100 mg IVPUSH Q8H-IV [facility] Last Admin: 08/30/18 09:54 Dose: 100 mg IV Flush (Triple Lumen Flush) 4 ml IVPUSH PRN PRN PRN Reason: Protocol IV Flush (Triple Lumen Flush) 4 ml IVPUSH BID [facility] Last Admin: 08/29/18 22:00 Dose: 4 ml Nafcillin Sodium 2 gm/ (Dextrose) 100 mls @ 100 mls/hr IVPB Q4H-IV [facility]; Protocol Last Admin: 08/30/18 09:57 Dose: 100 mls/hr Meropenem 500 mg/ Dextrose 100 mls @ 200 mls/hr IVPB Q8H-IV [facility] Last Admin: 08/30/18 09:57 Dose: 200 mls/hr Propofol (Diprivan -) 1,000,000 mcg in 100 mls @ 2.101 mls/hr IVPB TITR [facility]; Protocol Last Admin: 08/30/18 12:27 Dose: 40 mcg/kg/min, 16.806 mls/hr Norepinephrine Bitartrate 8, (000 mcg/ Sodium Chloride) 508 mls @ 7.5 mls/hr IV TITR [facility] Last Admin: 08/30/18 13:05 Dose: 56.3 mls/hr Midazolam HCl 100 mg/ Sodium (Chloride) 100 mls @ 1 mls/hr IVPB TITR [facility]; Protocol Last Titration: 08/29/18 17:30 Dose: 1 mg/hr, 1 mls/hr Vasopressin 50 units/ Sodium (Chloride) 100 mls @ 4 mls/hr IVPB ASDIR [facility]; Protocol Last Admin: 08/30/18 09:21 Dose: 3 units/hr, 6 mls/hr Fentanyl 500 mcg/ Sodium (Chloride) 100 mls @ 5 mls/hr IVPB TITR [facility]; Protocol Last Admin: 08/30/18 13:04 Dose: 125 mcg/hr, 25 mls/hr Sodium Chloride (Normal Saline -) 250 mls @ 3,000 mls/hr IV PRN PRN PRN Reason: Hypotension during Dialysis Stop: 08/31/18 10:01 Pantoprazole Sodium (Protonix Iv) 40 mg IVPUSH DAILY [facility] Last Admin: 08/30/18 09:54 Dose: 40 mg Gen: intubated, sedated Heart: RRR Lung: bilateral rhonchi Abd: soft, nontender Ext: + edema Laboratory Results - last 24 hr 08/30/18 08/30/18 06:15 06:15 WBC 29.3 H RBC 2.45 L Hgb 7.4 L Hct 22.0 L MCV 89.9 MCH 30.4 MCHC 33.9 RDW 15.6 Plt Count 332 MPV 8.2 Absolute Neuts (auto) 27.6 H Neutrophils % 94.2 H Neutrophils % (Manual) 92.0 H Band Neutrophils % 3.0 Lymphocytes % 0.7 L Lymphocytes % (Manual) 2.0 L D Monocytes % 4.9 Monocytes % (Manual) 3 L Eosinophils % 0.1 Eosinophils % (Manual) 0.0 Basophils % 0.1 Basophils % (Manual) 0.0 Myelocytes % (Man) 0 Promyelocytes % (Man) 0 Blast Cells % (Manual) 0 Nucleated RBC % 0 Metamyelocytes 0 Hypochromia 0 Platelet Estimate Normal Polychromasia 0 Poikilocytosis 0 Anisocytosis 1+ Microcytosis 1+ Macrocytosis 0 Sodium 127 L Potassium 4.1 Chloride 91 L Carbon Dioxide 21 Anion Gap 15 BUN 75 H Creatinine 4.0 H Creat Clearance w eGFR 11.17 Random Glucose 196 H Calcium 7.9 L Phosphorus 9.1 H* Magnesium 1.9 ASSESSMENT AND PLAN: Acute on Chronic Hypoxic and Hypercapneic Respiratory Failure Acute COPD Exacerbation ARF Pneumonia Septic Shock Acute Kidney Injury Metabolic and Respiratory Acidosis Pulmonary HTN LV Diastolic Dysfunction CAD s/p CABG +Troponins likely Demand Ischemia PAD HIV Hep C HTN Hypercholesterolemia - Sedate for vent synchrony - NE / Vasopressin, Hydrocortisone, & Fludrocortisone for shock - HD per Renal - continue antibiotics per ID - IVF - monitor urine output, creatinine - inhaled bronchodilators - taper FiO2, PEEP to keep SpO2 >90% - low tidal ventilation <6cc/kg/IBW, keep Plat <30 - not a candidate for weaning at this time given oxygen requirements - enteral feeds - DVT/GI prophylaxis - continue ICU monitoring - pallative care, will need tracheostomy for prolonged intubation, hopefully Trach later this week if she stabilizes - poor overall prognosis, continue discussions regarding goals of care, pt now DNR Dr Suero Critical care time spent in reviewing chart, evaluating patient and formulating plan 35 min
[2018-08-30] MEDS ORDERED: SODIUM CHLORIDE 250 ML IV PRN (14:56)
[2018-08-30] MEDS: TRIPLE LUMEN FLUSH 4 ML ML IVPUSH SCH ×2 (15:04→21:57)
--- NOTE | 2018-08-30 15:34 | PN ---
Progress Note, Physician History of Present Illness: Pt seen and examined at bedside. She remains in the ICU. She remains intubated. - Current Medication List Current Medications: Active Medications Abacavir/Dolutegravir/Lamivudine (Triumeq (Non-Formulary)) 1 each PO DAILY [facility] Last Admin: 08/30/18 09:56 Dose: 1 each Acetaminophen (Tylenol Oral Solution -) 1,000 mg PO Q6H PRN PRN Reason: FEVER Last Admin: 08/27/18 02:28 Dose: 1,000 mg Albumin Human (Albumin Human 25%) 12.5 gm IVPB Q30M [facility] Stop: 08/30/18 16:31 Chlorhexidine Gluconate (Peridex -) 15 ml MM BID [facility] Last Admin: 08/30/18 10:12 Dose: 15 ml Fludrocortisone Acetate (Florinef -) 0.05 mg NGT DAILY [facility] Last Admin: 08/30/18 09:55 Dose: 0.05 mg Heparin Sodium (Porcine) (Heparin -) 5,000 unit SQ TID [facility] Last Admin: 08/30/18 14:54 Dose: 5,000 unit Hydrocortisone Sodium Succinate (Solu-Cortef -) 100 mg IVPUSH Q8H-IV [facility] Last Admin: 08/30/18 09:54 Dose: 100 mg IV Flush (Triple Lumen Flush) 4 ml IVPUSH PRN PRN PRN Reason: Protocol IV Flush (Triple Lumen Flush) 4 ml IVPUSH BID [facility] Last Admin: 08/30/18 15:04 Dose: Not Given Nafcillin Sodium 2 gm/ (Dextrose) 100 mls @ 100 mls/hr IVPB Q4H-IV [facility]; Protocol Last Admin: 08/30/18 14:55 Dose: 100 mls/hr Meropenem 500 mg/ Dextrose 100 mls @ 200 mls/hr IVPB Q8H-IV [facility] Last Admin: 08/30/18 09:57 Dose: 200 mls/hr Propofol (Diprivan -) 1,000,000 mcg in 100 mls @ 2.101 mls/hr IVPB TITR [facility]; Protocol Last Admin: 08/30/18 12:27 Dose: 40 mcg/kg/min, 16.806 mls/hr Norepinephrine Bitartrate 8, (000 mcg/ Sodium Chloride) 508 mls @ 7.5 mls/hr IV TITR [facility] Last Admin: 08/30/18 13:05 Dose: 56.3 mls/hr Midazolam HCl 100 mg/ Sodium (Chloride) 100 mls @ 1 mls/hr IVPB TITR [facility]; Protocol Last Titration: 08/29/18 17:30 Dose: 1 mg/hr, 1 mls/hr Vasopressin 50 units/ Sodium (Chloride) 100 mls @ 4 mls/hr IVPB ASDIR [facility]; Protocol Last Admin: 08/30/18 09:21 Dose: 3 units/hr, 6 mls/hr Fentanyl 500 mcg/ Sodium (Chloride) 100 mls @ 5 mls/hr IVPB TITR [facility]; Protocol Last Admin: 08/30/18 13:04 Dose: 125 mcg/hr, 25 mls/hr Sodium Chloride (Normal Saline -) 250 mls @ 3,000 mls/hr IV PRN PRN PRN Reason: Hypotension during Dialysis Stop: 08/31/18 14:55 Pantoprazole Sodium (Protonix Iv) 40 mg IVPUSH DAILY [facility] Last Admin: 08/30/18 09:54 Dose: 40 mg - Objective Vital Signs: Vital Signs Temperature 98.7 F 08/30/18 14:00 Pulse Rate 115 H 08/30/18 14:00 Respiratory Rate 30 H 08/30/18 14:28 Blood Pressure 106/71 08/30/18 14:00 O2 Sat by Pulse Oximetry (%) 99 08/29/18 22:00 Constitutional: Yes: Calm Eyes: Yes: Conjunctiva Clear HENT: Yes: Atraumatic Cardiovascular: Yes: S1, S2 Respiratory: Yes: Mechanically Ventilated Gastrointestinal: Yes: Soft Genitourinary: Yes: Torres Present Musculoskeletal: Yes: Muscle Weakness Edema: Yes Edema: LUE: 1+, RUE: 1+, LLE: Trace, RLE: Trace Neurological: Yes: Lethargy Labs: CBC, BMP 08/30/18 06:15 08/30/18 06:15 INR, PTT INR 1.12 (0.83-1.09) H 08/25/18 06:00 - ....Imaging Chest X-ray: Report Reviewed Problem List - Problems (1) Acute renal failure Code(s): N17.9 - ACUTE KIDNEY FAILURE, UNSPECIFIED Qualifiers: Acute renal failure type: unspecified Qualified Code(s): N17.9 - Acute kidney failure, unspecified (2) Altered mental status, unspecified Code(s): R41.82 - ALTERED MENTAL STATUS, UNSPECIFIED Qualifiers: Altered mental status type: somnolence Qualified Code(s): R40.0 - Somnolence (3) CHF (congestive heart failure) Code(s): I50.9 - HEART FAILURE, UNSPECIFIED Qualifiers: Heart failure type: diastolic Heart failure chronicity: chronic Qualified Code(s): I50.32 - Chronic diastolic (congestive) heart failure (4) COPD with acute exacerbation Code(s): J44.1 - CHRONIC OBSTRUCTIVE PULMONARY DISEASE W (ACUTE) EXACERBATION (5) Hyperkalemia Code(s): E87.5 - HYPERKALEMIA Assessment/Plan Current Medications Generic Name Dose Route Start Last Admin Trade Name Freq PRN Reason Stop Dose Admin Abacavir/Dolutegravir/Lamivudine 1 each 08/10/18 14:00 08/30/18 09:56 Triumeq (Non-Formulary) PO 1 each DAILY [facility] Administration Acetaminophen 1,000 mg 08/16/18 16:11 08/27/18 02:28 Tylenol Oral Solution - PO 1,000 mg Q6H PRN Administration FEVER Albumin Human 12.5 gm 08/30/18 15:00 Albumin Human 25% IVPB 08/30/18 16:31 Q30M [facility] Chlorhexidine Gluconate 15 ml 08/17/18 22:00 08/30/18 10:12 Peridex - MM 15 ml BID [facility] Administration Fludrocortisone Acetate 0.05 mg 08/29/18 13:15 08/30/18 09:55 Florinef - NGT 0.05 mg DAILY [facility] Administration Heparin Sodium (Porcine) 5,000 unit 08/17/18 14:00 08/30/18 14:54 Heparin - SQ 5,000 unit TID [facility] Administration Hydrocortisone Sodium Succinate 100 mg 08/29/18 11:30 08/30/18 09:54 Solu-Cortef - IVPUSH 100 mg Q8H-IV [facility] Administration IV Flush 4 ml 08/23/18 11:37 Triple Lumen Flush IVPUSH PRN PRN Protocol IV Flush 4 ml 08/27/18 22:00 08/30/18 15:04 Triple Lumen Flush IVPUSH Not Given BID [facility] Nafcillin Sodium 2 gm/ 100 mls @ 100 mls/hr 08/19/18 20:00 08/30/18 14:55 Dextrose IVPB 100 mls/hr Q4H-IV [facility] Administration Protocol Meropenem 500 mg/ Dextrose 100 mls @ 200 mls/hr 08/24/18 18:00 08/30/18 09:57 IVPB 200 mls/hr Q8H-IV [facility] Administration Propofol 1,000,000 mcg in 100 mls @ 2.101 mls/hr 08/29/18 07:45 08/30/18 12: 27 Diprivan - IVPB 40 mcg/kg/min TITR [facility] 16.806 mls/hr Administration Protocol 5 MCG/KG/MIN Norepinephrine Bitartrate 8, 508 mls @ 7.5 mls/hr 08/29/18 08:45 08/30/18 13: 05 000 mcg/ Sodium Chloride IV 56.3 mls/hr TITR [facility] Administration Midazolam HCl 100 mg/ Sodium 100 mls @ 1 mls/hr 08/29/18 11:45 08/29/18 17:30 Chloride IVPB 1 mg/hr TITR [facility] 1 mls/hr Titration Protocol 1 MG/HR Vasopressin 50 units/ Sodium 100 mls @ 4 mls/hr 08/29/18 11:45 08/30/18 09:21 Chloride IVPB 3 units/hr ASDIR [facility] 6 mls/hr Administration Protocol 2 UNITS/HR Fentanyl 500 mcg/ Sodium 100 mls @ 5 mls/hr 08/30/18 07:15 08/30/18 13:04 Chloride IVPB 125 mcg/hr TITR [facility] 25 mls/hr Administration Protocol 25 MCG/HR Sodium Chloride 250 mls @ 3,000 mls/hr 08/30/18 14:56 Normal Saline - IV 08/31/18 14:55 PRN PRN Hypotension during Dialysis Pantoprazole Sodium 40 mg 08/11/18 13:15 08/30/18 09:54 Protonix Iv IVPUSH 40 mg DAILY [facility] Administration Impression 1. KRISTIAN 2. Hyperkalemia 3. HIV 4. hyponatremia 5. altered mental status 6. pulm HTN 7. htn 8. pvd 9. resp acidosis 10. resp failure requiring intubation Plan - will dialyze today - vent support - can give prbc with hd - monitor urine output - discussed with ICU team - hold bp meds
[2018-08-30] MEDS: ALBUMIN HUMAN 25% 12.5 GM/50 ML VIAL IVPB SCH ×4 (16:30→19:00)
--- NOTE | 2018-08-30 18:10 | PN ---
Progress Note, Physician History of Present Illness: intubated and sedated - Current Medication List Current Medications: Active Medications Abacavir/Dolutegravir/Lamivudine (Triumeq (Non-Formulary)) 1 each PO DAILY [facility] Last Admin: 08/30/18 09:56 Dose: 1 each Acetaminophen (Tylenol Oral Solution -) 1,000 mg PO Q6H PRN PRN Reason: FEVER Last Admin: 08/27/18 02:28 Dose: 1,000 mg Chlorhexidine Gluconate (Peridex -) 15 ml MM BID [facility] Last Admin: 08/30/18 10:12 Dose: 15 ml Fludrocortisone Acetate (Florinef -) 0.05 mg NGT DAILY [facility] Last Admin: 08/30/18 09:55 Dose: 0.05 mg Heparin Sodium (Porcine) (Heparin -) 5,000 unit SQ TID [facility] Last Admin: 08/30/18 14:54 Dose: 5,000 unit Hydrocortisone Sodium Succinate (Solu-Cortef -) 100 mg IVPUSH Q8H-IV [facility] Last Admin: 08/30/18 17:52 Dose: 100 mg IV Flush (Triple Lumen Flush) 4 ml IVPUSH PRN PRN PRN Reason: Protocol IV Flush (Triple Lumen Flush) 4 ml IVPUSH BID [facility] Last Admin: 08/30/18 15:04 Dose: Not Given Nafcillin Sodium 2 gm/ (Dextrose) 100 mls @ 100 mls/hr IVPB Q4H-IV [facility]; Protocol Last Admin: 08/30/18 17:52 Dose: 100 mls/hr Meropenem 500 mg/ Dextrose 100 mls @ 200 mls/hr IVPB Q8H-IV [facility] Last Admin: 08/30/18 17:51 Dose: 200 mls/hr Propofol (Diprivan -) 1,000,000 mcg in 100 mls @ 2.101 mls/hr IVPB TITR [facility]; Protocol Last Admin: 08/30/18 12:27 Dose: 40 mcg/kg/min, 16.806 mls/hr Norepinephrine Bitartrate 8, (000 mcg/ Sodium Chloride) 508 mls @ 7.5 mls/hr IV TITR [facility] Last Admin: 08/30/18 13:05 Dose: 56.3 mls/hr Midazolam HCl 100 mg/ Sodium (Chloride) 100 mls @ 1 mls/hr IVPB TITR [facility]; Protocol Last Titration: 08/29/18 17:30 Dose: 1 mg/hr, 1 mls/hr Vasopressin 50 units/ Sodium (Chloride) 100 mls @ 4 mls/hr IVPB ASDIR [facility]; Protocol Last Admin: 08/30/18 09:21 Dose: 3 units/hr, 6 mls/hr Fentanyl 500 mcg/ Sodium (Chloride) 100 mls @ 5 mls/hr IVPB TITR [facility]; Protocol Last Admin: 08/30/18 17:36 Dose: 125 mcg/hr, 25 mls/hr Sodium Chloride (Normal Saline -) 250 mls @ 3,000 mls/hr IV PRN PRN PRN Reason: Hypotension during Dialysis Stop: 08/31/18 14:55 Pantoprazole Sodium (Protonix Iv) 40 mg IVPUSH DAILY [facility] Last Admin: 08/30/18 09:54 Dose: 40 mg - Objective Vital Signs: Vital Signs Temperature 98.7 F 08/30/18 14:00 Pulse Rate 121 H 08/30/18 17:30 Respiratory Rate 30 H 08/30/18 17:30 Blood Pressure 133/83 08/30/18 17:30 O2 Sat by Pulse Oximetry (%) 98 08/30/18 10:00 Constitutional: Yes: Calm HENT: Yes: Atraumatic Neck: Yes: Supple Cardiovascular: Yes: Regular Rate and Rhythm Respiratory: Yes: Rhonchi Gastrointestinal: Yes: Normal Bowel Sounds Edema: LLE: Trace, RLE: Trace Neurological: Yes: Other (intubated and sedated) Labs: CBC, BMP 08/30/18 06:15 08/30/18 06:15 INR, PTT INR 1.12 (0.83-1.09) H 08/25/18 06:00 Problem List - Problems (1) Altered mental status, unspecified Code(s): R41.82 - ALTERED MENTAL STATUS, UNSPECIFIED Qualifiers: Altered mental status type: somnolence Qualified Code(s): R40.0 - Somnolence (2) COPD with acute exacerbation Assessment/Plan: steroids duo nebs INTUBATED Code(s): J44.1 - CHRONIC OBSTRUCTIVE PULMONARY DISEASE W (ACUTE) EXACERBATION (3) Elevated troponin I level Code(s): R74.8 - ABNORMAL LEVELS OF OTHER SERUM ENZYMES (4) Hyperkalemia Code(s): E87.5 - HYPERKALEMIA (5) COPD (chronic obstructive pulmonary disease) Code(s): J44.9 - CHRONIC OBSTRUCTIVE PULMONARY DISEASE, UNSPECIFIED Qualifiers: (6) HIV Assessment/Plan: continue home meds Code(s): Z21 - ASYMPTOMATIC HUMAN IMMUNODEFICIENCY VIRUS INFECTION STATUS (7) HTN (hypertension) Assessment/Plan: bp low due to sepsis on pressors Code(s): I10 - ESSENTIAL (PRIMARY) HYPERTENSION Qualifiers: Hypertension type: essential hypertension Qualified Code(s): I10 - Essential (primary) hypertension (8) Hyperlipidemia Code(s): E78.5 - HYPERLIPIDEMIA, UNSPECIFIED Qualifiers: Hyperlipidemia type: pure hypercholesterolemia Qualified Code(s): E78.00 - Pure hypercholesterolemia, unspecified; E78.0 - Pure hypercholesterolemia (9) PVD (peripheral vascular disease) Code(s): I73.9 - PERIPHERAL VASCULAR DISEASE, UNSPECIFIED (10) CHF (congestive heart failure) Code(s): I50.9 - HEART FAILURE, UNSPECIFIED Qualifiers: Heart failure type: diastolic Heart failure chronicity: chronic Qualified Code(s): I50.32 - Chronic diastolic (congestive) heart failure (11) Sepsis Assessment/Plan: on abx monitor wbc Code(s): A41.9 - SEPSIS, UNSPECIFIED ORGANISM (12) Respiratory acidosis Code(s): E87.2 - ACIDOSIS (13) Respiratory failure requiring intubation Code(s): J96.90 - RESPIRATORY FAILURE, UNSP, UNSP W HYPOXIA OR HYPERCAPNIA Assessment/Plan cc time in icu 35 min
[2018-08-30] MEDS: MIDAZOLAM 100 MG in SODIUM CHLORIDE 100 ML IVPB SCH (21:53)
[2018-08-30 22:08] LABS: HBSAG SCREEN Negative (Negative); HEP A AB, IGM Negative (Negative); HEP B CORE AB, TOT Positive (Negative)
[2018-08-30] MEDS ORDERED: SODIUM CHLORIDE 100 ML IVPB ONE (22:50)
[2018-08-31] MEDS: NAFCILLIN - 2 GM in DEXTROSE 5%-WATER - 100 ML IVPB SCH ×6 (02:00→22:05)
[2018-08-31] MEDS: MEROPENEM 500 MG in DEXTROSE 5%-WATER 100 ML IVPB SCH ×3 (02:00→18:11)
[2018-08-31] MEDS: HYDROCORTISONE SOD SUCCINATE 100 MG/2 ML VIAL IVPUSH SCH ×3 (02:00→18:07)
[2018-08-31] MEDS ORDERED: PT OWN MED DRAWER 7, Y5N ONE ×8 (03:53→22:03)
[2018-08-31] MEDS: HEPARIN NA (PORCINE) 5,000 UNITS/ML 1ML VIAL SQ SCH ×3 (05:46→21:58)
[2018-08-31] MEDS: BANATROL PLUS POWDER PACKET PO SCH ×3 (05:47→21:58)
--- NOTE | 2018-08-31 06:41 | PN ---
Progress Note (short form) - Note Progress Note: Chief Complaint: Events noted, notes reviewed, overall no significant change in status, remains intubated and sedated, remains on pressors, sinus tachycardia noted- persistent History of Present Illness: Seen and examined in the ICU. Events noted, notes reviewed, overall no significant change in status, remains intubated and sedated, remains on pressors , sinus tachycardia noted- persistent - Current Medication List Current Medications Abacavir/Dolutegravir/Lamivudine (Triumeq (Non-Formulary)) 1 each PO DAILY [facility] Last Admin: 08/30/18 09:56 Dose: 1 each Acetaminophen (Tylenol Oral Solution -) 1,000 mg PO Q6H PRN PRN Reason: FEVER Last Admin: 08/27/18 02:28 Dose: 1,000 mg Chlorhexidine Gluconate (Peridex -) 15 ml MM BID [facility] Last Admin: 08/30/18 21:57 Dose: 15 ml Fludrocortisone Acetate (Florinef -) 0.05 mg NGT DAILY [facility] Last Admin: 08/30/18 09:55 Dose: 0.05 mg Heparin Sodium (Porcine) (Heparin -) 5,000 unit SQ TID [facility] Last Admin: 08/31/18 05:46 Dose: 5,000 unit Hydrocortisone Sodium Succinate (Solu-Cortef -) 100 mg IVPUSH Q8H-IV [facility] Last Admin: 08/31/18 02:00 Dose: 100 mg IV Flush (Triple Lumen Flush) 4 ml IVPUSH PRN PRN PRN Reason: Protocol IV Flush (Triple Lumen Flush) 4 ml IVPUSH BID [facility] Last Admin: 08/30/18 21:57 Dose: 4 ml Nafcillin Sodium 2 gm/ (Dextrose) 100 mls @ 100 mls/hr IVPB Q4H-IV [facility]; Protocol Last Admin: 08/31/18 05:47 Dose: 100 mls/hr Meropenem 500 mg/ Dextrose 100 mls @ 200 mls/hr IVPB Q8H-IV [facility] Last Admin: 08/31/18 02:00 Dose: 200 mls/hr Propofol (Diprivan -) 1,000,000 mcg in 100 mls @ 2.101 mls/hr IVPB TITR [facility]; Protocol Last Admin: 08/30/18 12:27 Dose: 40 mcg/kg/min, 16.806 mls/hr Norepinephrine Bitartrate 8, (000 mcg/ Sodium Chloride) 508 mls @ 7.5 mls/hr IV TITR [facility] Last Infusion: 08/30/18 23:00 Dose: 18.8 mls/hr Midazolam HCl 100 mg/ Sodium (Chloride) 100 mls @ 1 mls/hr IVPB TITR [facility]; Protocol Last Titration: 08/31/18 03:49 Dose: 2 mg/hr, 2 mls/hr Vasopressin 50 units/ Sodium (Chloride) 100 mls @ 4 mls/hr IVPB ASDIR [facility]; Protocol Last Titration: 08/31/18 00:00 Dose: 2 units/hr, 4 mls/hr Fentanyl 500 mcg/ Sodium (Chloride) 100 mls @ 5 mls/hr IVPB TITR [facility]; Protocol Last Titration: 08/31/18 01:00 Dose: 50 mcg/hr, 10 mls/hr Sodium Chloride (Normal Saline -) 250 mls @ 3,000 mls/hr IV PRN PRN PRN Reason: Hypotension during Dialysis Stop: 08/31/18 14:55 Pantoprazole Sodium (Protonix Iv) 40 mg IVPUSH DAILY [facility] Last Admin: 08/30/18 09:54 Dose: 40 mg Review of Systems Unable to obtain - Objective Vital Signs: Last Vital Signs Temp Pulse Resp BP Pulse Ox 98.2 F 117 H 19 137/90 100 08/31/18 04:00 08/31/18 06:00 08/31/18 06:00 08/31/18 06:00 08/31/18 05:53 Intake & Output 08/28/18 08/29/18 08/30/18 08/31/18 23:59 23:59 23:59 23:59 Intake Total 2586 2824 4123 647 Output Total 760 300 150 50 Balance 1826 5594 4063 597 Weight 157 lb 6.561 oz 154 lb 6 oz 166 lb 3.657 oz 168 lb 5 oz Neck: Supple Negative JVD No Bruit Cardiovascular: S1 S2 Regular Rate and Rhythm Tachycardia Respiratory: Diminished Breath Sounds at the Bases Bilaterally Bilateral Course Rhonchi Gastrointestinal: Soft Benign Normal Bowel Sounds Ext: Negative Edema Labs: CBC, BMP 08/31/18 05:30 08/31/18 05:30 ABG Results ABG pH 7.22 (7.35-7.45) L 08/28/18 06:45 ABG pCO2 at Pt Temp 59.1 mmHg (35-45) H 08/28/18 06:45 ABG pO2 at Pt Temp 117 mmHg (80-105) H 08/28/18 06:45 ABG HCO3 23.1 mmol/L (22-27) 08/28/18 06:45 ABG O2 Sat (Measured) 97.5 % (95-98) 08/28/18 06:45 ABG O2 Content 9.6 % vol (15-22) L* 08/28/18 06:45 ABG Base Excess -4.0 meq/l (-2-2) L 08/28/18 06:45 Assessment/Plan ASSESSMENT: 1. Acute on chronic hypercapneic/hypoxemic respiratory failure on mechanical ventilation, metabolic acidosis, post HD, sepsis syndrome source unclear, persistent pulmonary infiltrate and small effusion, as outlined question empyema 2. Exacerbation of chronic obstructive pulmonary disease 3. Right Heart Failure with Severe Pulmonary HTN 4. Acute on chronic class I-II NYHA classification LV failure related to diastolic dysfunction 5. CAD post CABG with evidence of demand ischemic injury angina pectoris 7. HTN, currently hypotensive on pressors 8. Hypercholesterolemia 9. PAD post SFA stent 10. Acute on CKD, pre-renal azotemia, post HD 11. Toxic metabolic encephelopathy 12. HIV and Hepatitis C 13. History of cholelithiasis 14. Anemia post transfusion PLAN: 1. Continue to hold Plavix, related to anemia, again as outlined transfuse to maintain Hg equal or > 8.0 2. Pressors/Norepinephrine and Vasopressin to maintain MAP > 65, wean off as tolerated, question role of Florinef in the acute setting 3. Steroid and bronchodilator as per critical care team 4. Antibiotic as per the primary/ID team 5. HD as per renal service 6. Ventilator management as per the ICU team Overall poor prognosis Tabatha Hogan M.D.
[2018-08-31 06:54] LABS: BASO % 0.3 % (0-2.0); EOS % 0.2 % (0-4.5); HEMATOCRIT 22.3 % (32.4-45.2); HEMOGLOBIN 7.7 GM/dL (10.7-15.3); MCH 29.9 pg (25.7-33.7); MCHC 34.6 g/dl (32.0-36.0); MEAN CELL VOLUME 86.3 fl (80-96); MEAN PLT VOLUME 8.2 fl (7.5-11.1); MONO % 6.1 % (3.8-10.2); NEUT % 92.4 % (42.8-82.8); PLATELET COUNT 288 K/MM3 (134-434); RBC 2.58 M/mm3 (3.60-5.2); RDW 16.2 % (11.6-15.6); WHITE BLOOD COUNT 26.9 K/mm3 (4.0-10.0)
[2018-08-31 07:00] LABS: ANION GAP 11 MMOL/L (8-16); BLOOD UREA NITROGEN 50 mg/dL (7-18); CALCIUM 8.1 mg/dL (8.5-10.1); CHLORIDE 95 mmol/L (98-107); CO2 25 mmol/L (21-32); GLUCOSE,RANDOM 180 mg/dL (74-106); MAGNESIUM 1.7 mg/dL (1.8-2.4); PHOSPHOROUS 6.8 mg/dL (2.5-4.9); POTASSIUM 3.3 mmol/L (3.5-5.1); SODIUM 131 mmol/L (136-145)
[2018-08-31] MEDS ORDERED: MAGNESIUM SULF 50% (8.12 MEQ/2 ML-1 GM VIAL) IVPB ONE (07:39)
[2018-08-31] MEDS ORDERED: POTASSIUM CHLORIDE 20 MEQ PREMIX IVPB 100 ML IVPB ONE (07:40)
[2018-08-31] MEDS: KCL 10 MEQ IVPB 10 MEQ/100 ML INFUS.BAG IVPB SCH ×2 (08:09→16:10)
[2018-08-31] MEDS ORDERED: fentaNYL CITRATE 250 MCG/5 ML VIAL ONE ×2 (09:05→17:59)
[2018-08-31] MEDS: FENTANYL INJECTION 500 MCG in SODIUM CHLORIDE 90 ML IVPB SCH ×2 (09:12→18:29)
[2018-08-31] MEDS: PANTOPRAZOLE SODIUM 40 MG VIAL IVPUSH SCH (09:51)
[2018-08-31] MEDS: CHLORHEXIDINE GLUCONATE 0.12% 15ML CUP MM SCH ×2 (09:55→21:58)
[2018-08-31] MEDS: FLUDROCORTISONE ACETATE 0.1 MG TABLET (FP) NGT SCH (09:57)
[2018-08-31] MEDS: ABACAVIR/DOLUTEGRAVIR/LAMIVUDI (TRIUMEQ) TABLET -NF PO SCH (10:01)
[2018-08-31] MEDS: TRIPLE LUMEN FLUSH 4 ML ML IVPUSH SCH ×2 (10:01→21:59)
[2018-08-31] MEDS: PROPOFOL 1,000,000 MCG/100 ML VIAL IVPB SCH (10:21)
[2018-08-31 10:22] LABS: ANISOCYTOSIS 0; MACROCYTOSIS 0; PLATELET ESTIMATE NORMAL; TARGET CELLS 2+
--- NOTE | 2018-08-31 11:53 | PN ---
Progress Note, Physician History of Present Illness: Pt seen and examined at bedside. She remains in the ICU. She remains intubated. - Current Medication List Current Medications: Active Medications Abacavir/Dolutegravir/Lamivudine (Triumeq (Non-Formulary)) 1 each PO DAILY [facility] Last Admin: 08/31/18 10:01 Dose: 1 each Acetaminophen (Tylenol Oral Solution -) 1,000 mg PO Q6H PRN PRN Reason: FEVER Last Admin: 08/27/18 02:28 Dose: 1,000 mg Chlorhexidine Gluconate (Peridex -) 15 ml MM BID [facility] Last Admin: 08/31/18 09:55 Dose: 15 ml Fludrocortisone Acetate (Florinef -) 0.05 mg NGT DAILY [facility] Last Admin: 08/31/18 09:57 Dose: 0.05 mg Heparin Sodium (Porcine) (Heparin -) 5,000 unit SQ TID [facility] Last Admin: 08/31/18 05:46 Dose: 5,000 unit Hydrocortisone Sodium Succinate (Solu-Cortef -) 100 mg IVPUSH Q8H-IV [facility] Last Admin: 08/31/18 10:36 Dose: 100 mg IV Flush (Triple Lumen Flush) 4 ml IVPUSH PRN PRN PRN Reason: Protocol IV Flush (Triple Lumen Flush) 4 ml IVPUSH BID [facility] Last Admin: 08/31/18 10:01 Dose: Not Given Nafcillin Sodium 2 gm/ (Dextrose) 100 mls @ 100 mls/hr IVPB Q4H-IV [facility]; Protocol Last Admin: 08/31/18 09:56 Dose: 100 mls/hr Meropenem 500 mg/ Dextrose 100 mls @ 200 mls/hr IVPB Q8H-IV [facility] Last Admin: 08/31/18 09:56 Dose: 200 mls/hr Propofol (Diprivan -) 1,000,000 mcg in 100 mls @ 2.101 mls/hr IVPB TITR [facility]; Protocol Last Admin: 08/31/18 10:21 Dose: 16.66 mcg/kg/min, 7 mls/hr Norepinephrine Bitartrate 8, (000 mcg/ Sodium Chloride) 508 mls @ 7.5 mls/hr IV TITR [facility] Last Infusion: 08/30/18 23:00 Dose: 18.8 mls/hr Midazolam HCl 100 mg/ Sodium (Chloride) 100 mls @ 1 mls/hr IVPB TITR [facility]; Protocol Last Titration: 08/31/18 03:49 Dose: 2 mg/hr, 2 mls/hr Vasopressin 50 units/ Sodium (Chloride) 100 mls @ 4 mls/hr IVPB ASDIR [facility]; Protocol Last Titration: 08/31/18 00:00 Dose: 2 units/hr, 4 mls/hr Fentanyl 500 mcg/ Sodium (Chloride) 100 mls @ 5 mls/hr IVPB TITR [facility]; Protocol Last Admin: 08/31/18 09:12 Dose: 50 mcg/hr, 10 mls/hr Sodium Chloride (Normal Saline -) 250 mls @ 3,000 mls/hr IV PRN PRN PRN Reason: Hypotension during Dialysis Stop: 08/31/18 14:55 Pantoprazole Sodium (Protonix Iv) 40 mg IVPUSH DAILY [facility] Last Admin: 08/31/18 09:51 Dose: 40 mg - Objective Vital Signs: Vital Signs Temperature 97.6 F 08/31/18 10:00 Pulse Rate 118 H 08/31/18 10:00 Respiratory Rate 30 H 08/31/18 11:13 Blood Pressure 99/68 08/31/18 10:00 O2 Sat by Pulse Oximetry (%) 98 08/31/18 10:00 Constitutional: Yes: Calm Eyes: Yes: Conjunctiva Clear HENT: Yes: Atraumatic Cardiovascular: Yes: S1, S2 Respiratory: Yes: CTA Bilaterally Gastrointestinal: Yes: Normal Bowel Sounds, Soft Genitourinary: Yes: Torres Present, Oliguria Musculoskeletal: Yes: Muscle Weakness Extremities: Yes: WNL Edema: LUE: 1+, RUE: 1+ Neurological: Yes: Oriented Psychiatric: Yes: Oriented Labs: CBC, BMP 08/31/18 05:30 08/31/18 05:30 INR, PTT INR 1.12 (0.83-1.09) H 08/25/18 06:00 Problem List - Problems (1) Acute renal failure Code(s): N17.9 - ACUTE KIDNEY FAILURE, UNSPECIFIED Qualifiers: Acute renal failure type: unspecified Qualified Code(s): N17.9 - Acute kidney failure, unspecified (2) Altered mental status, unspecified Code(s): R41.82 - ALTERED MENTAL STATUS, UNSPECIFIED Qualifiers: Altered mental status type: somnolence Qualified Code(s): R40.0 - Somnolence (3) CHF (congestive heart failure) Code(s): I50.9 - HEART FAILURE, UNSPECIFIED Qualifiers: Heart failure type: diastolic Heart failure chronicity: chronic Qualified Code(s): I50.32 - Chronic diastolic (congestive) heart failure (4) COPD with acute exacerbation Code(s): J44.1 - CHRONIC OBSTRUCTIVE PULMONARY DISEASE W (ACUTE) EXACERBATION (5) Hyperkalemia Code(s): E87.5 - HYPERKALEMIA Assessment/Plan Current Medications Generic Name Dose Route Start Last Admin Trade Name Freq PRN Reason Stop Dose Admin Abacavir/Dolutegravir/Lamivudine 1 each 08/10/18 14:00 08/31/18 10:01 Triumeq (Non-Formulary) PO 1 each DAILY [facility] Administration Acetaminophen 1,000 mg 08/16/18 16:11 08/27/18 02:28 Tylenol Oral Solution - PO 1,000 mg Q6H PRN Administration FEVER Chlorhexidine Gluconate 15 ml 08/17/18 22:00 08/31/18 09:55 Peridex - MM 15 ml BID [facility] Administration Fludrocortisone Acetate 0.05 mg 08/29/18 13:15 08/31/18 09:57 Florinef - NGT 0.05 mg DAILY [facility] Administration Heparin Sodium (Porcine) 5,000 unit 08/17/18 14:00 08/31/18 05:46 Heparin - SQ 5,000 unit TID [facility] Administration Hydrocortisone Sodium Succinate 100 mg 08/29/18 11:30 08/31/18 10:36 Solu-Cortef - IVPUSH 100 mg Q8H-IV [facility] Administration IV Flush 4 ml 08/23/18 11:37 Triple Lumen Flush IVPUSH PRN PRN Protocol IV Flush 4 ml 08/27/18 22:00 08/31/18 10:01 Triple Lumen Flush IVPUSH Not Given BID [facility] Nafcillin Sodium 2 gm/ 100 mls @ 100 mls/hr 08/19/18 20:00 08/31/18 09:56 Dextrose IVPB 100 mls/hr Q4H-IV [facility] Administration Protocol Meropenem 500 mg/ Dextrose 100 mls @ 200 mls/hr 08/24/18 18:00 08/31/18 09:56 IVPB 200 mls/hr Q8H-IV [facility] Administration Propofol 1,000,000 mcg in 100 mls @ 2.101 mls/hr 08/29/18 07:45 08/31/18 10: 21 Diprivan - IVPB 16.66 mcg/kg/min TITR [facility] 7 mls/hr Administration Protocol 5 MCG/KG/MIN Norepinephrine Bitartrate 8, 508 mls @ 7.5 mls/hr 08/29/18 08:45 08/30/18 23: 00 000 mcg/ Sodium Chloride IV 18.8 mls/hr TITR [facility] Infusion Midazolam HCl 100 mg/ Sodium 100 mls @ 1 mls/hr 08/29/18 11:45 08/31/18 03:49 Chloride IVPB 2 mg/hr TITR [facility] 2 mls/hr Titration Protocol 1 MG/HR Vasopressin 50 units/ Sodium 100 mls @ 4 mls/hr 08/29/18 11:45 08/31/18 00:00 Chloride IVPB 2 units/hr ASDIR [facility] 4 mls/hr Titration Protocol 2 UNITS/HR Fentanyl 500 mcg/ Sodium 100 mls @ 5 mls/hr 08/30/18 07:15 08/31/18 09:12 Chloride IVPB 50 mcg/hr TITR [facility] 10 mls/hr Administration Protocol 25 MCG/HR Sodium Chloride 250 mls @ 3,000 mls/hr 08/30/18 14:56 Normal Saline - IV 08/31/18 14:55 PRN PRN Hypotension during Dialysis Pantoprazole Sodium 40 mg 08/11/18 13:15 08/31/18 09:51 Protonix Iv IVPUSH 40 mg DAILY [facility] Administration Impression 1. KRISTIAN 2. Hyperkalemia 3. HIV 4. hyponatremia 5. altered mental status 6. pulm HTN 7. htn 8. pvd 9. resp acidosis 10. resp failure requiring intubation Plan - pt had HD yesterday - repeat labs in am - vent support - monitor urine output - discussed with ICU team
--- NOTE | 2018-08-31 12:54 | PN ---
Teaching Attending Note Name of Resident: Rodrick Farrar ATTENDING PHYSICIAN STATEMENT I saw and evaluated the patient. I reviewed the resident's note and discussed the case with the resident. I agree with the resident's findings and plan as documented. SUBJECTIVE: Pt seen and examined in the ICU. Remains intubated, sedated. No fevers recorded. On lower dose levophed and vasopressin gtts. Daughter at bedside. OBJECTIVE: Vital Signs Period Temp Pulse Resp BP Sys/Buck Pulse Ox Last 24 Hr 97.6 F-98.7 F 111-133 14-31 88-162/65-103 98-100 Intake & Output 08/28/18 08/29/18 08/30/18 08/31/18 23:59 23:59 23:59 23:59 Intake Total 2586 2824 4123 647 Output Total 760 300 150 50 Balance 1826 2524 3973 597 Weight 71.4 kg 70.023 kg 75.4 kg 76.345 kg Gen: intubated, sedated Heart: tachycardic, regular Lung: scattered rhonchi Abd: soft, nontender Ext: + edema CBC, BMP 08/31/18 05:30 08/31/18 05:30 Active Medications Abacavir/Dolutegravir/Lamivudine (Triumeq (Non-Formulary)) 1 each PO DAILY [facility] Last Admin: 08/31/18 10:01 Dose: 1 each Acetaminophen (Tylenol Oral Solution -) 1,000 mg PO Q6H PRN PRN Reason: FEVER Last Admin: 08/27/18 02:28 Dose: 1,000 mg Chlorhexidine Gluconate (Peridex -) 15 ml MM BID [facility] Last Admin: 08/31/18 09:55 Dose: 15 ml Fludrocortisone Acetate (Florinef -) 0.05 mg NGT DAILY [facility] Last Admin: 08/31/18 09:57 Dose: 0.05 mg Heparin Sodium (Porcine) (Heparin -) 5,000 unit SQ TID [facility] Last Admin: 08/31/18 05:46 Dose: 5,000 unit Hydrocortisone Sodium Succinate (Solu-Cortef -) 100 mg IVPUSH Q8H-IV [facility] Last Admin: 08/31/18 10:36 Dose: 100 mg IV Flush (Triple Lumen Flush) 4 ml IVPUSH PRN PRN PRN Reason: Protocol IV Flush (Triple Lumen Flush) 4 ml IVPUSH BID [facility] Last Admin: 08/31/18 10:01 Dose: Not Given Nafcillin Sodium 2 gm/ (Dextrose) 100 mls @ 100 mls/hr IVPB Q4H-IV [facility]; Protocol Last Admin: 08/31/18 09:56 Dose: 100 mls/hr Meropenem 500 mg/ Dextrose 100 mls @ 200 mls/hr IVPB Q8H-IV [facility] Last Admin: 08/31/18 09:56 Dose: 200 mls/hr Propofol (Diprivan -) 1,000,000 mcg in 100 mls @ 2.101 mls/hr IVPB TITR [facility]; Protocol Last Admin: 08/31/18 10:21 Dose: 16.66 mcg/kg/min, 7 mls/hr Norepinephrine Bitartrate 8, (000 mcg/ Sodium Chloride) 508 mls @ 7.5 mls/hr IV TITR [facility] Last Infusion: 08/30/18 23:00 Dose: 18.8 mls/hr Midazolam HCl 100 mg/ Sodium (Chloride) 100 mls @ 1 mls/hr IVPB TITR [facility]; Protocol Last Titration: 08/31/18 03:49 Dose: 2 mg/hr, 2 mls/hr Vasopressin 50 units/ Sodium (Chloride) 100 mls @ 4 mls/hr IVPB ASDIR [facility]; Protocol Last Titration: 08/31/18 00:00 Dose: 2 units/hr, 4 mls/hr Fentanyl 500 mcg/ Sodium (Chloride) 100 mls @ 5 mls/hr IVPB TITR [facility]; Protocol Last Admin: 08/31/18 09:12 Dose: 50 mcg/hr, 10 mls/hr Sodium Chloride (Normal Saline -) 250 mls @ 3,000 mls/hr IV PRN PRN PRN Reason: Hypotension during Dialysis Stop: 08/31/18 14:55 Pantoprazole Sodium (Protonix Iv) 40 mg IVPUSH DAILY [facility] Last Admin: 08/31/18 09:51 Dose: 40 mg ASSESSMENT AND PLAN: Acute on Chronic Hypoxic and Hypercapneic Respiratory Failure Acute COPD Exacerbation Pneumonia Septic Shock Acute Kidney Injury requiring HD Pulmonary HTN LV Diastolic Dysfunction CAD s/p CABG +Troponins likely Demand Ischemia PAD HIV Hep C HTN Hypercholesterolemia - continue antibiotics per ID - f/u pending cultures - monitor urine output, creatinine - HD per renal - taper pressors to maintain MAP>65 - on stress dose steroids - inhaled bronchodilators - taper FiO2, PEEP to keep SpO2 >90% - low tidal ventilation <6cc/kg/IBW, keep Plat <30 - not a candidate for weaning at this time given oxygen requirements - enteral feeds - DVT/GI prophylaxis - continue ICU monitoring - pallative care, will need tracheostomy for prolonged intubation, consult thoracic surgery - poor overall prognosis, continue discussions regarding goals of care, pt DNR critical care time spent in reviewing chart, evaluating patient and formulating plan 35 min
--- NOTE | 2018-08-31 13:07 | PN ---
Progress Note, Physician History of Present Illness: Seen and evaluated at bedside. Afebrile overnight. Levophed and vasopressin titrated down from 15 and 4 to 5 and 2 respectively. No other overnight events. - Current Medication List Current Medications: Active Medications Abacavir/Dolutegravir/Lamivudine (Triumeq (Non-Formulary)) 1 each PO DAILY [facility] Last Admin: 08/31/18 10:01 Dose: 1 each Acetaminophen (Tylenol Oral Solution -) 1,000 mg PO Q6H PRN PRN Reason: FEVER Last Admin: 08/27/18 02:28 Dose: 1,000 mg Chlorhexidine Gluconate (Peridex -) 15 ml MM BID [facility] Last Admin: 08/31/18 09:55 Dose: 15 ml Fludrocortisone Acetate (Florinef -) 0.05 mg NGT DAILY [facility] Last Admin: 08/31/18 09:57 Dose: 0.05 mg Heparin Sodium (Porcine) (Heparin -) 5,000 unit SQ TID [facility] Last Admin: 08/31/18 05:46 Dose: 5,000 unit Hydrocortisone Sodium Succinate (Solu-Cortef -) 100 mg IVPUSH Q8H-IV [facility] Last Admin: 08/31/18 10:36 Dose: 100 mg IV Flush (Triple Lumen Flush) 4 ml IVPUSH PRN PRN PRN Reason: Protocol IV Flush (Triple Lumen Flush) 4 ml IVPUSH BID [facility] Last Admin: 08/31/18 10:01 Dose: Not Given Nafcillin Sodium 2 gm/ (Dextrose) 100 mls @ 100 mls/hr IVPB Q4H-IV [facility]; Protocol Last Admin: 08/31/18 09:56 Dose: 100 mls/hr Meropenem 500 mg/ Dextrose 100 mls @ 200 mls/hr IVPB Q8H-IV [facility] Last Admin: 08/31/18 09:56 Dose: 200 mls/hr Propofol (Diprivan -) 1,000,000 mcg in 100 mls @ 2.101 mls/hr IVPB TITR [facility]; Protocol Last Admin: 08/31/18 10:21 Dose: 16.66 mcg/kg/min, 7 mls/hr Norepinephrine Bitartrate 8, (000 mcg/ Sodium Chloride) 508 mls @ 7.5 mls/hr IV TITR [facility] Last Infusion: 08/30/18 23:00 Dose: 18.8 mls/hr Midazolam HCl 100 mg/ Sodium (Chloride) 100 mls @ 1 mls/hr IVPB TITR [facility]; Protocol Last Titration: 08/31/18 03:49 Dose: 2 mg/hr, 2 mls/hr Vasopressin 50 units/ Sodium (Chloride) 100 mls @ 4 mls/hr IVPB ASDIR [facility]; Protocol Last Titration: 08/31/18 00:00 Dose: 2 units/hr, 4 mls/hr Fentanyl 500 mcg/ Sodium (Chloride) 100 mls @ 5 mls/hr IVPB TITR [facility]; Protocol Last Admin: 08/31/18 09:12 Dose: 50 mcg/hr, 10 mls/hr Sodium Chloride (Normal Saline -) 250 mls @ 3,000 mls/hr IV PRN PRN PRN Reason: Hypotension during Dialysis Stop: 08/31/18 14:55 Pantoprazole Sodium (Protonix Iv) 40 mg IVPUSH DAILY [facility] Last Admin: 08/31/18 09:51 Dose: 40 mg - Objective Vital Signs: Vital Signs Temperature 97.6 F 08/31/18 10:00 Pulse Rate 118 H 08/31/18 10:00 Respiratory Rate 30 H 08/31/18 11:13 Blood Pressure 99/68 08/31/18 10:00 O2 Sat by Pulse Oximetry (%) 98 08/31/18 10:00 Constitutional: Yes: Other (intubated and sedated) Neck: Yes: Other (L trialysis catheter day 5) Cardiovascular: Yes: Tachycardia, S1, S2 Respiratory: Yes: Intubated Gastrointestinal: Yes: Soft, Abdomen, Obese. No: Distention Genitourinary: Yes: Other (R groin femoral line day 2) Edema: Yes Labs: CBC, BMP 08/31/18 05:30 08/31/18 05:30 INR, PTT INR 1.12 (0.83-1.09) H 08/25/18 06:00 Impression/Plan Impression/Plan: 67 up F with HTN, CAD s/p CABG in 2009, PVD with B/L LE stents, HIV, HEP C, COPD and CHF. Admitted to the ICU for Acute hypoxic hypercapnic respiratory failure and dehydration. Neuro: - intubated (day 21) and sedated on propofol, versed and fentanyl - not a weaning candidate now Renal: - cont. HD as needed - last HD yesterday Heme: - Transfused 1 PRBC yesterday with HD - H&H did not go up appropriately - will repeat CBC in PM Cardiovascular: -remained on vasopressor and levophed with fludrortisone and hydrocrotisone -titrate as needed to maintain MAP>65 Pulm / Resp: - remained intubated - CT surgery consult for bedside trach - Continue albuterol PRN. - CXR is improving Gastrointestinal: - c/w rectal tube and banatrol packet TID - Stool for C.Diff negative Infectious Disease: improving b/l PNA - cont. nafcillin and meropenem and HAART Therapy per ID FEN: - Tube Feed per dietary Prophylaxis: -DVT: Heparin SQ -GI: Pantoprazole Dispo: - Discussed patient's prognosis with pt's daughter (younger). She's leaning towards trach and aggressive measures for now. Visit type - Emergency Visit Emergency Visit: No - New Patient This patient is new to me today: No - Critical Care Critical Care patient: Yes Total Critical Care Time (in minutes): 35 Critical Care Statement: The care of this patient involved high complexity decision making to prevent further life threatening deterioration of the patient 's condition and/or to evaluate & treat vital organ system(s) failure or risk of failure.
[2018-08-31 14:17] LABS: BASO % 0.1 % (0-2.0); HEMATOCRIT 23.3 % (32.4-45.2); HEMOGLOBIN 7.8 GM/dL (10.7-15.3); LYMPH % 1.2 % (8-40); MCH 29.3 pg (25.7-33.7); MCHC 33.6 g/dl (32.0-36.0); MEAN CELL VOLUME 87.1 fl (80-96); MONO % 6.1 % (3.8-10.2); NEUT % 92.6 % (42.8-82.8); PLATELET COUNT 275 K/MM3 (134-434); RBC 2.67 M/mm3 (3.60-5.2); RDW 16.7 % (11.6-15.6); WHITE BLOOD COUNT 26.1 K/mm3 (4.0-10.0)
[2018-08-31 15:09] LABS: ANISOCYTOSIS 1+; MACROCYTOSIS 1+; PLATELET ESTIMATE NORMAL; TARGET CELLS 1+
--- NOTE | 2018-08-31 15:38 | SPA.PREOP ---
- PRE-OP NOTE Dx: Prolonged Intubation Planned Procedure: Bedside percuatneous tracheostomy 09/02/18 Surgeon: Richard Meek Last Vital Signs Temp Pulse Resp BP Pulse Ox 98.0 F 122 H 30 H 127/76 98 08/31/18 14:00 08/31/18 14:00 08/31/18 14:00 08/31/18 14:00 08/31/18 10:00 Lab Results WBC 26.1 K/mm3 (4.0-10.0) H 08/31/18 13:59 RBC 2.67 M/mm3 (3.60-5.2) L 08/31/18 13:59 Hgb 7.8 GM/dL (10.7-15.3) L 08/31/18 13:59 Hct 23.3 % (32.4-45.2) L 08/31/18 13:59 MCV 87.1 fl (80-96) 08/31/18 13:59 MCHC 33.6 g/dl (32.0-36.0) 08/31/18 13:59 RDW 16.7 % (11.6-15.6) H 08/31/18 13:59 Plt Count 275 K/MM3 (134-434) 08/31/18 13:59 Sodium 131 mmol/L (136-145) L 08/31/18 05:30 Potassium 3.3 mmol/L (3.5-5.1) L 08/31/18 05:30 Chloride 95 mmol/L (98-107) L 08/31/18 05:30 Carbon Dioxide 25 mmol/L (21-32) 08/31/18 05:30 Anion Gap 11 MMOL/L (8-16) 08/31/18 05:30 BUN 50 mg/dL (7-18) H 08/31/18 05:30 Creatinine 3.0 mg/dL (0.55-1.3) H 08/31/18 05:30 Random Glucose 180 mg/dL (74-106) H 08/31/18 05:30 Calcium 8.1 mg/dL (8.5-10.1) L 08/31/18 05:30 Blood Type O POSITIVE 08/28/18 08:00 Antibody Screen Negative 08/28/18 08:00 INR 1.12 (0.83-1.09) H 08/25/18 06:00 - IMAGING Chest X-ray: Report Reviewed, Image Reviewed - ASSESSMENT/PLAN 1. Make NPO after midnight evening 2. GI/DVT PPX 3. Medical optimization / Pulm clearance 4. Consent to be obtained by surgeon after risks, benefits and alternatives discussed with Health Care Proxy. Problem List - Problems (1) COPD with acute exacerbation Code(s): J44.1 - CHRONIC OBSTRUCTIVE PULMONARY DISEASE W (ACUTE) EXACERBATION (2) Respiratory acidosis Code(s): E87.2 - ACIDOSIS (3) Respiratory failure requiring intubation Code(s): J96.90 - RESPIRATORY FAILURE, UNSP, UNSP W HYPOXIA OR HYPERCAPNIA (4) Sepsis Code(s): A41.9 - SEPSIS, UNSPECIFIED ORGANISM Visit type - Case Type Case Type: ED Admission
[2018-08-31] MEDS ORDERED: MIDAZOLAM 100 MG/100 ML MG IVPB ONE (16:04)
[2018-08-31] MEDS: NOREPINEPHRINE BITARTRATE 8,000 MCG in SODIUM CHLORIDE 500 ML IV SCH (16:12)
[2018-08-31] MEDS: VASOPRESSIN 50 UNITS in SODIUM CHLORIDE 97.5 ML IVPB SCH (16:15)
[2018-08-31] MEDS: MIDAZOLAM 100 MG in SODIUM CHLORIDE 100 ML IVPB SCH (16:18)
--- NOTE | 2018-08-31 17:42 | PN ---
Progress Note (short form) - Note Progress Note: remains intubated-since 08/10 remains on pressors- being weaned fio2 down to 40% today cxray stable sedated Vital Signs Period Temp Pulse Resp BP Sys/Buck Pulse Ox Last 24 Hr 97.6 F-98.3 F 94-133 14-32 97-162/68-103 98-100 cor-rrr lungs decreased bs at bases abd soft,nt ext trace edema +han +central line CBC, BMP 08/31/18 13:59 08/31/18 05:30 a/p Respiratory failure MSSA bacteremia HCAP-MSSA and Pseudomonas diarrhea HIV -on [id number] now on HD continue nafcillin and meropenem overall prognosis is poor
[2018-08-31] MEDS ORDERED: NOREPINEPHRINE BITARTRATE 4 MG/4 ML ML IV ONE (18:06)
[2018-08-31] MEDS: NOREPINEPHRINE BITARTRATE 8,000 MCG in SODIUM CHLORIDE 492 ML IV SCH (18:11)
--- NOTE | 2018-08-31 18:34 | PN ---
Progress Note, Physician History of Present Illness: intubated and sedated - Current Medication List Current Medications: Active Medications Abacavir/Dolutegravir/Lamivudine (Triumeq (Non-Formulary)) 1 each PO DAILY [facility] Last Admin: 08/31/18 10:01 Dose: 1 each Acetaminophen (Tylenol Oral Solution -) 1,000 mg PO Q6H PRN PRN Reason: FEVER Last Admin: 08/27/18 02:28 Dose: 1,000 mg Chlorhexidine Gluconate (Peridex -) 15 ml MM BID [facility] Last Admin: 08/31/18 09:55 Dose: 15 ml Fludrocortisone Acetate (Florinef -) 0.05 mg NGT DAILY [facility] Last Admin: 08/31/18 09:57 Dose: 0.05 mg Heparin Sodium (Porcine) (Heparin -) 5,000 unit SQ TID [facility] Last Admin: 08/31/18 14:54 Dose: 5,000 unit Hydrocortisone Sodium Succinate (Solu-Cortef -) 100 mg IVPUSH Q8H-IV [facility] Last Admin: 08/31/18 18:07 Dose: 100 mg IV Flush (Triple Lumen Flush) 4 ml IVPUSH PRN PRN PRN Reason: Protocol IV Flush (Triple Lumen Flush) 4 ml IVPUSH BID [facility] Last Admin: 08/31/18 10:01 Dose: Not Given Nafcillin Sodium 2 gm/ (Dextrose) 100 mls @ 100 mls/hr IVPB Q4H-IV [facility]; Protocol Last Admin: 08/31/18 18:10 Dose: 100 mls/hr Meropenem 500 mg/ Dextrose 100 mls @ 200 mls/hr IVPB Q8H-IV [facility] Last Admin: 08/31/18 18:11 Dose: 200 mls/hr Propofol (Diprivan -) 1,000,000 mcg in 100 mls @ 2.101 mls/hr IVPB TITR [facility]; Protocol Last Admin: 08/31/18 10:21 Dose: 16.66 mcg/kg/min, 7 mls/hr Midazolam HCl 100 mg/ Sodium (Chloride) 100 mls @ 1 mls/hr IVPB TITR [facility]; Protocol Last Admin: 08/31/18 16:18 Dose: 2 mg/hr, 2 mls/hr Vasopressin 50 units/ Sodium (Chloride) 100 mls @ 4 mls/hr IVPB ASDIR [facility]; Protocol Last Admin: 08/31/18 16:15 Dose: Not Given Fentanyl 500 mcg/ Sodium (Chloride) 100 mls @ 5 mls/hr IVPB TITR [facility]; Protocol Last Titration: 08/31/18 12:40 Dose: 70 mcg/hr, 14 mls/hr Norepinephrine Bitartrate 8, (000 mcg/ Sodium Chloride) 500 mls @ 18.75 mls/hr IV TITR [facility]; Protocol Last Admin: 08/31/18 18:11 Dose: 3 mcg/min, 11.25 mls/hr Pantoprazole Sodium (Protonix Iv) 40 mg IVPUSH DAILY [facility] Last Admin: 08/31/18 09:51 Dose: 40 mg - Objective Vital Signs: Vital Signs Temperature 98.0 F 08/31/18 14:00 Pulse Rate 121 H 08/31/18 18:11 Respiratory Rate 30 H 08/31/18 16:02 Blood Pressure 78/60 L 08/31/18 18:11 O2 Sat by Pulse Oximetry (%) 98 08/31/18 10:00 Constitutional: Yes: No Distress HENT: Yes: Atraumatic Neck: Yes: Supple Cardiovascular: Yes: Regular Rate and Rhythm Respiratory: Yes: Rhonchi Gastrointestinal: Yes: Normal Bowel Sounds Edema: Yes Edema: LUE: 1+, RUE: 1+, LLE: 1+, RLE: 1+ Neurological: Yes: Other (intubated and sedated) Labs: CBC, BMP 08/31/18 13:59 08/31/18 05:30 INR, PTT INR 1.12 (0.83-1.09) H 08/25/18 06:00 Problem List - Problems (1) Altered mental status, unspecified Code(s): R41.82 - ALTERED MENTAL STATUS, UNSPECIFIED Qualifiers: Altered mental status type: somnolence Qualified Code(s): R40.0 - Somnolence (2) COPD with acute exacerbation Assessment/Plan: steroids duo nebs INTUBATED Code(s): J44.1 - CHRONIC OBSTRUCTIVE PULMONARY DISEASE W (ACUTE) EXACERBATION (3) Elevated troponin I level Code(s): R74.8 - ABNORMAL LEVELS OF OTHER SERUM ENZYMES (4) Hyperkalemia Code(s): E87.5 - HYPERKALEMIA (5) COPD (chronic obstructive pulmonary disease) Code(s): J44.9 - CHRONIC OBSTRUCTIVE PULMONARY DISEASE, UNSPECIFIED Qualifiers: (6) HIV Assessment/Plan: continue home meds id on board Code(s): Z21 - ASYMPTOMATIC HUMAN IMMUNODEFICIENCY VIRUS INFECTION STATUS (7) HTN (hypertension) Assessment/Plan: bp low due to sepsis on pressors Code(s): I10 - ESSENTIAL (PRIMARY) HYPERTENSION Qualifiers: Hypertension type: essential hypertension Qualified Code(s): I10 - Essential (primary) hypertension (8) Hyperlipidemia Code(s): E78.5 - HYPERLIPIDEMIA, UNSPECIFIED Qualifiers: Hyperlipidemia type: pure hypercholesterolemia Qualified Code(s): E78.00 - Pure hypercholesterolemia, unspecified; E78.0 - Pure hypercholesterolemia (9) PVD (peripheral vascular disease) Code(s): I73.9 - PERIPHERAL VASCULAR DISEASE, UNSPECIFIED (10) CHF (congestive heart failure) Code(s): I50.9 - HEART FAILURE, UNSPECIFIED Qualifiers: Heart failure type: diastolic Heart failure chronicity: chronic Qualified Code(s): I50.32 - Chronic diastolic (congestive) heart failure (11) Sepsis Assessment/Plan: on abx monitor wbc Code(s): A41.9 - SEPSIS, UNSPECIFIED ORGANISM (12) Respiratory acidosis Code(s): E87.2 - ACIDOSIS (13) Respiratory failure requiring intubation Code(s): J96.90 - RESPIRATORY FAILURE, UNSP, UNSP W HYPOXIA OR HYPERCAPNIA Assessment/Plan cc time in icu 35 min
[2018-09-01] MEDS ORDERED: PT OWN MED DRAWER 7, Y5N ONE ×9 (01:23→19:46)
[2018-09-01] MEDS: MEROPENEM 500 MG in DEXTROSE 5%-WATER 100 ML IVPB SCH ×3 (01:27→17:12)
[2018-09-01] MEDS: NAFCILLIN - 2 GM in DEXTROSE 5%-WATER - 100 ML IVPB SCH ×6 (01:28→21:10)
[2018-09-01] MEDS: HYDROCORTISONE SOD SUCCINATE 100 MG/2 ML VIAL IVPUSH SCH ×3 (01:28→17:12)
[2018-09-01] MEDS: FENTANYL INJECTION 500 MCG in SODIUM CHLORIDE 90 ML IVPB SCH ×2 (02:00→15:26)
[2018-09-01] MEDS ORDERED: fentaNYL CITRATE 250 MCG/5 ML VIAL ONE ×3 (03:20→21:30)
[2018-09-01] MEDS: HEPARIN NA (PORCINE) 5,000 UNITS/ML 1ML VIAL SQ SCH ×3 (05:17→21:10)
[2018-09-01] MEDS: BANATROL PLUS POWDER PACKET PO SCH ×3 (05:17→21:09)
[2018-09-01 06:23] LABS: BASO % 0.3 % (0-2.0); MCH 30.1 pg (25.7-33.7); MCHC 34.8 g/dl (32.0-36.0); MEAN CELL VOLUME 86.5 fl (80-96); MEAN PLT VOLUME 8.1 fl (7.5-11.1); MONO % 4.2 % (3.8-10.2); NEUT % 94.5 % (42.8-82.8); PLATELET COUNT 251 K/MM3 (134-434); RBC 2.66 M/mm3 (3.60-5.2); RDW 16.9 % (11.6-15.6); WHITE BLOOD COUNT 24.8 K/mm3 (4.0-10.0)
[2018-09-01 06:52] LABS: ALBUMIN 1.5 g/dl (3.4-5.0); ALK PHOS 73 U/L (45-117); ANION GAP 13 MMOL/L (8-16); BILIRUBIN,TOTAL 2.8 mg/dL (0.2-1); BLOOD UREA NITROGEN 56 mg/dL (7-18); CHLORIDE 94 mmol/L (98-107); CO2 24 mmol/L (21-32); CREATININE 3.2 mg/dL (0.55-1.3); GLUCOSE,RANDOM 180 mg/dL (74-106); PHOSPHOROUS 7.2 mg/dL (2.5-4.9); SGOT/AST 27 U/L (15-37); SGPT/ALT 9 U/L (13-61); SODIUM 130 mmol/L (136-145); TOT PROT 4.9 g/dl (6.4-8.2)
[2018-09-01 06:55] LABS: INR 1.17 (0.83-1.09); PROTHROMBIN TIME (PATIENT) 13.8 SEC (9.7-13.0)
[2018-09-01 06:58] LABS: ACTIVATED PTT 35.5 SECONDS (25.2-36.5)
[2018-09-01 07:00] LABS: POTASSIUM 2.9 mmol/L (3.5-5.1)
[2018-09-01] MEDS: PROPOFOL 1,000,000 MCG/100 ML VIAL IVPB SCH ×2 (08:27→15:27)
[2018-09-01] MEDS ORDERED: VASOPRESSIN 20 UNITS/ML VIAL IV ONE ×3 (09:45→15:51)
[2018-09-01] MEDS: POTASSIUM CHLORIDE 20 MEQ PREMIX IVPB 100 ML IVPB SCH ×3 (09:55→12:20)
[2018-09-01] MEDS: VASOPRESSIN 50 UNITS in SODIUM CHLORIDE 97.5 ML IVPB SCH ×2 (09:57→16:27)
[2018-09-01] MEDS: PANTOPRAZOLE SODIUM 40 MG VIAL IVPUSH SCH (10:01)
[2018-09-01] MEDS: CHLORHEXIDINE GLUCONATE 0.12% 15ML CUP MM SCH ×2 (10:03→21:10)
[2018-09-01] MEDS: ABACAVIR/DOLUTEGRAVIR/LAMIVUDI (TRIUMEQ) TABLET -NF PO SCH (10:10)
[2018-09-01] MEDS: FLUDROCORTISONE ACETATE 0.1 MG TABLET (FP) NGT SCH (10:11)
[2018-09-01 11:11] LABS: ANISOCYTOSIS 1+; MACROCYTOSIS 1+; PLATELET ESTIMATE NORMAL; TARGET CELLS 1+
--- NOTE | 2018-09-01 12:09 | PN ---
Teaching Attending Note Name of Resident: Andrez Tolentino ATTENDING PHYSICIAN STATEMENT I saw and evaluated the patient. I reviewed the resident's note and discussed the case with the resident. I agree with the resident's findings and plan as documented. SUBJECTIVE: Patient seen and examined in the ICU. Remains intubated, sedated. AC Mode of vent, 40% FiO2. 3mcq levophed drip and Vasopressin 3 units for hemodynamic support. OBJECTIVE: Intake & Output 08/29/18 08/30/18 08/31/18 09/01/18 23:59 23:59 23:59 23:59 Intake Total 2824 4123 2204.2 852.9 Output Total 300 150 200 Balance 2524 3973 2004.2 852.9 Weight 154 lb 6 oz 166 lb 3.657 oz 168 lb 5 oz 172 lb 1 oz Last Vital Signs Temp Pulse Resp BP Pulse Ox 97.4 F L 122 H 33 H 106/75 100 09/01/18 08:00 09/01/18 10:00 09/01/18 12:04 09/01/18 10:00 09/01/18 08:30 Active Medications Abacavir/Dolutegravir/Lamivudine (Triumeq (Non-Formulary)) 1 each PO DAILY [facility] Last Admin: 09/01/18 10:10 Dose: 1 each Acetaminophen (Tylenol Oral Solution -) 1,000 mg PO Q6H PRN PRN Reason: FEVER Last Admin: 08/27/18 02:28 Dose: 1,000 mg Chlorhexidine Gluconate (Peridex -) 15 ml MM BID [facility] Last Admin: 09/01/18 10:03 Dose: 15 ml Fludrocortisone Acetate (Florinef -) 0.05 mg NGT DAILY [facility] Last Admin: 09/01/18 10:11 Dose: 0.05 mg Heparin Sodium (Porcine) (Heparin -) 5,000 unit SQ TID [facility] Last Admin: 09/01/18 05:17 Dose: 5,000 unit Hydrocortisone Sodium Succinate (Solu-Cortef -) 100 mg IVPUSH Q8H-IV [facility] Last Admin: 09/01/18 10:04 Dose: 100 mg IV Flush (Triple Lumen Flush) 4 ml IVPUSH PRN PRN PRN Reason: Protocol IV Flush (Triple Lumen Flush) 4 ml IVPUSH BID [facility] Last Admin: 08/31/18 21:59 Dose: Not Given Nafcillin Sodium 2 gm/ (Dextrose) 100 mls @ 100 mls/hr IVPB Q4H-IV [facility]; Protocol Last Admin: 09/01/18 10:01 Dose: 100 mls/hr Meropenem 500 mg/ Dextrose 100 mls @ 200 mls/hr IVPB Q8H-IV [facility] Last Admin: 09/01/18 10:00 Dose: 200 mls/hr Propofol (Diprivan -) 1,000,000 mcg in 100 mls @ 2.101 mls/hr IVPB TITR [facility]; Protocol Last Admin: 09/01/18 08:27 Dose: 16.66 mcg/kg/min, 7 mls/hr Midazolam HCl 100 mg/ Sodium (Chloride) 100 mls @ 1 mls/hr IVPB TITR [facility]; Protocol Last Admin: 08/31/18 16:18 Dose: 2 mg/hr, 2 mls/hr Vasopressin 50 units/ Sodium (Chloride) 100 mls @ 4 mls/hr IVPB ASDIR [facility]; Protocol Last Admin: 09/01/18 09:57 Dose: 2 units/hr, 4 mls/hr Fentanyl 500 mcg/ Sodium (Chloride) 100 mls @ 5 mls/hr IVPB TITR [facility]; Protocol Last Admin: 09/01/18 02:00 Dose: 50 mcg/hr, 10 mls/hr Norepinephrine Bitartrate 8, (000 mcg/ Sodium Chloride) 500 mls @ 18.75 mls/hr IV TITR [facility]; Protocol Last Titration: 08/31/18 19:10 Dose: 5 mcg/min, 18.75 mls/hr Pantoprazole Sodium (Protonix Iv) 40 mg IVPUSH DAILY [facility] Last Admin: 09/01/18 10:01 Dose: 40 mg Gen: intubated, sedated Heart: RRR Lung: bilateral rhonchi Abd: soft, nontender Ext: + edema Laboratory Results - last 24 hr 08/27/18 08/28/18 08/31/18 20:50 08:00 13:59 WBC 26.1 H RBC 2.67 L Hgb 7.8 L Hct 23.3 L MCV 87.1 MCH 29.3 MCHC 33.6 RDW 16.7 H Plt Count 275 MPV 8.0 Absolute Neuts (auto) 24.1 H Neutrophils % 92.6 H Neutrophils % (Manual) 97.0 H Band Neutrophils % 0.0 Lymphocytes % 1.2 L Lymphocytes % (Manual) 1.0 L D Monocytes % 6.1 Monocytes % (Manual) 2 L Eosinophils % 0.0 D Eosinophils % (Manual) 0.0 Basophils % 0.1 Basophils % (Manual) 0.0 Myelocytes % (Man) 0 Promyelocytes % (Man) 0 Blast Cells % (Manual) 0 Nucleated RBC % 0 Metamyelocytes 0 Hypochromia 1+ Platelet Estimate Normal Platelet Comment Present Polychromasia 1+ Poikilocytosis 1+ Basophilic Stippling 1+ Anisocytosis 1+ Microcytosis Macrocytosis 1+ Target Cells 1+ PT with INR INR PTT (Actin FS) Sodium Potassium Chloride Carbon Dioxide Anion Gap BUN Creatinine Creat Clearance w eGFR Random Glucose Calcium Phosphorus Magnesium Total Bilirubin AST ALT Alkaline Phosphatase Total Protein Albumin Hep C Ab Diagnostic >11.0 H HCV RNA PCR w/Genot Rflx Hcv not detected Liver Fibrosis Interp Crossmatch See Detail 09/01/18 09/01/18 09/01/18 05:30 05:30 05:30 WBC 24.8 H RBC 2.66 L Hgb 8.0 L Hct 23.0 L MCV 86.5 MCH 30.1 MCHC 34.8 RDW 16.9 H Plt Count 251 MPV 8.1 Absolute Neuts (auto) 23.5 H Neutrophils % 94.5 H Neutrophils % (Manual) 96.0 H Band Neutrophils % 1.0 Lymphocytes % 1.0 L Lymphocytes % (Manual) 1.0 L Monocytes % 4.2 Monocytes % (Manual) 2 L Eosinophils % 0.0 Eosinophils % (Manual) 0.0 Basophils % 0.3 Basophils % (Manual) 0.0 Myelocytes % (Man) 0 Promyelocytes % (Man) 0 Blast Cells % (Manual) 0 Nucleated RBC % 0 Metamyelocytes 0 Hypochromia Platelet Estimate Normal Platelet Comment Polychromasia 1+ Poikilocytosis 1+ Basophilic Stippling Anisocytosis 1+ Microcytosis 1+ Macrocytosis 1+ Target Cells 1+ PT with INR 13.80 H INR 1.17 H PTT (Actin FS) 35.5 Sodium 130 L Potassium 2.9 L* Chloride 94 L Carbon Dioxide 24 Anion Gap 13 BUN 56 H Creatinine 3.2 H Creat Clearance w eGFR 14.45 Random Glucose 180 H Calcium 8.0 L Phosphorus 7.2 H Magnesium 2.0 Total Bilirubin 2.8 H AST 27 ALT 9 L Alkaline Phosphatase 73 Total Protein 4.9 L Albumin 1.5 L Hep C Ab Diagnostic HCV RNA PCR w/Genot Rflx Liver Fibrosis Interp Crossmatch ASSESSMENT AND PLAN: Acute on Chronic Hypoxic and Hypercapneic Respiratory Failure Acute COPD Exacerbation ARF Pneumonia Septic Shock Acute Kidney Injury Metabolic and Respiratory Acidosis Pulmonary HTN LV Diastolic Dysfunction CAD s/p CABG +Troponins likely Demand Ischemia PAD HIV Hep C HTN Hypercholesterolemia - Sedate for vent synchrony - NE / Vasopressin, Hydrocortisone, & Fludrocortisone for shock - HD per Renal - continue antibiotics per ID - IVF - monitor urine output, creatinine - inhaled bronchodilators - taper FiO2, PEEP to keep SpO2 >90% - low tidal ventilation <6cc/kg/IBW, keep Plat <30 - not a candidate for weaning at this time given oxygen requirements - enteral feeds - DVT/GI prophylaxis - continue ICU monitoring - Tentatively planned for tracheostomy tomorrow for prolonged intubation - poor overall prognosis, continue discussions regarding goals of care, pt is DNR Dr Suero Critical care time spent in reviewing chart, evaluating patient and formulating plan 35 min
[2018-09-01] MEDS: TRIPLE LUMEN FLUSH 4 ML ML IVPUSH SCH ×2 (12:21→21:11)
--- NOTE | 2018-09-01 13:03 | PN ---
Progress Note, Physician History of Present Illness: Pt seen and examined at bedside. She remains in the ICU. She remains intubated. - Current Medication List Current Medications: Active Medications Abacavir/Dolutegravir/Lamivudine (Triumeq (Non-Formulary)) 1 each PO DAILY [facility] Last Admin: 09/01/18 10:10 Dose: 1 each Acetaminophen (Tylenol Oral Solution -) 1,000 mg PO Q6H PRN PRN Reason: FEVER Last Admin: 08/27/18 02:28 Dose: 1,000 mg Chlorhexidine Gluconate (Peridex -) 15 ml MM BID [facility] Last Admin: 09/01/18 10:03 Dose: 15 ml Fludrocortisone Acetate (Florinef -) 0.05 mg NGT DAILY [facility] Last Admin: 09/01/18 10:11 Dose: 0.05 mg Heparin Sodium (Porcine) (Heparin -) 5,000 unit SQ TID [facility] Last Admin: 09/01/18 05:17 Dose: 5,000 unit Hydrocortisone Sodium Succinate (Solu-Cortef -) 100 mg IVPUSH Q8H-IV [facility] Last Admin: 09/01/18 10:04 Dose: 100 mg IV Flush (Triple Lumen Flush) 4 ml IVPUSH PRN PRN PRN Reason: Protocol IV Flush (Triple Lumen Flush) 4 ml IVPUSH BID [facility] Last Admin: 09/01/18 12:21 Dose: Not Given Nafcillin Sodium 2 gm/ (Dextrose) 100 mls @ 100 mls/hr IVPB Q4H-IV [facility]; Protocol Last Admin: 09/01/18 10:01 Dose: 100 mls/hr Meropenem 500 mg/ Dextrose 100 mls @ 200 mls/hr IVPB Q8H-IV [facility] Last Admin: 09/01/18 10:00 Dose: 200 mls/hr Propofol (Diprivan -) 1,000,000 mcg in 100 mls @ 2.101 mls/hr IVPB TITR [facility]; Protocol Last Admin: 09/01/18 08:27 Dose: 16.66 mcg/kg/min, 7 mls/hr Midazolam HCl 100 mg/ Sodium (Chloride) 100 mls @ 1 mls/hr IVPB TITR [facility]; Protocol Last Admin: 08/31/18 16:18 Dose: 2 mg/hr, 2 mls/hr Vasopressin 50 units/ Sodium (Chloride) 100 mls @ 4 mls/hr IVPB ASDIR [facility]; Protocol Last Admin: 09/01/18 09:57 Dose: 2 units/hr, 4 mls/hr Fentanyl 500 mcg/ Sodium (Chloride) 100 mls @ 5 mls/hr IVPB TITR [facility]; Protocol Last Admin: 09/01/18 02:00 Dose: 50 mcg/hr, 10 mls/hr Norepinephrine Bitartrate 8, (000 mcg/ Sodium Chloride) 500 mls @ 18.75 mls/hr IV TITR [facility]; Protocol Last Titration: 09/01/18 12:19 Dose: 0 mcg/min, 0 mls/hr Pantoprazole Sodium (Protonix Iv) 40 mg IVPUSH DAILY [facility] Last Admin: 09/01/18 10:01 Dose: 40 mg - Objective Vital Signs: Vital Signs Temperature 97.4 F L 09/01/18 08:00 Pulse Rate 120 H 09/01/18 12:19 Respiratory Rate 32 H 09/01/18 12:18 Blood Pressure 133/94 09/01/18 12:19 O2 Sat by Pulse Oximetry (%) 100 09/01/18 08:30 Constitutional: Yes: Calm Eyes: Yes: Conjunctiva Clear HENT: Yes: Atraumatic Cardiovascular: Yes: S1, S2 Respiratory: Yes: Mechanically Ventilated Gastrointestinal: Yes: Soft Genitourinary: Yes: Torres Present Musculoskeletal: Yes: Muscle Weakness Edema: LUE: Trace, RUE: Trace Neurological: Yes: Lethargy Labs: CBC, BMP 09/01/18 05:30 09/01/18 05:30 INR, PTT INR 1.17 (0.83-1.09) H 09/01/18 05:30 - ....Imaging Chest X-ray: Report Reviewed Problem List - Problems (1) Acute renal failure Code(s): N17.9 - ACUTE KIDNEY FAILURE, UNSPECIFIED Qualifiers: Acute renal failure type: unspecified Qualified Code(s): N17.9 - Acute kidney failure, unspecified (2) Altered mental status, unspecified Code(s): R41.82 - ALTERED MENTAL STATUS, UNSPECIFIED Qualifiers: Altered mental status type: somnolence Qualified Code(s): R40.0 - Somnolence (3) CHF (congestive heart failure) Code(s): I50.9 - HEART FAILURE, UNSPECIFIED Qualifiers: Heart failure type: diastolic Heart failure chronicity: chronic Qualified Code(s): I50.32 - Chronic diastolic (congestive) heart failure (4) COPD with acute exacerbation Code(s): J44.1 - CHRONIC OBSTRUCTIVE PULMONARY DISEASE W (ACUTE) EXACERBATION (5) Hyperkalemia Code(s): E87.5 - HYPERKALEMIA Assessment/Plan Current Medications Generic Name Dose Route Start Last Admin Trade Name Freq PRN Reason Stop Dose Admin Abacavir/Dolutegravir/Lamivudine 1 each 08/10/18 14:00 09/01/18 10:10 Triumeq (Non-Formulary) PO 1 each DAILY [facility] Administration Acetaminophen 1,000 mg 08/16/18 16:11 08/27/18 02:28 Tylenol Oral Solution - PO 1,000 mg Q6H PRN Administration FEVER Chlorhexidine Gluconate 15 ml 08/17/18 22:00 09/01/18 10:03 Peridex - MM 15 ml BID [facility] Administration Fludrocortisone Acetate 0.05 mg 08/29/18 13:15 09/01/18 10:11 Florinef - NGT 0.05 mg DAILY [facility] Administration Heparin Sodium (Porcine) 5,000 unit 08/17/18 14:00 09/01/18 05:17 Heparin - SQ 5,000 unit TID [facility] Administration Hydrocortisone Sodium Succinate 100 mg 08/29/18 11:30 09/01/18 10:04 Solu-Cortef - IVPUSH 100 mg Q8H-IV [facility] Administration IV Flush 4 ml 08/23/18 11:37 Triple Lumen Flush IVPUSH PRN PRN Protocol IV Flush 4 ml 08/27/18 22:00 09/01/18 12:21 Triple Lumen Flush IVPUSH Not Given BID [facility] Nafcillin Sodium 2 gm/ 100 mls @ 100 mls/hr 08/19/18 20:00 09/01/18 10:01 Dextrose IVPB 100 mls/hr Q4H-IV [facility] Administration Protocol Meropenem 500 mg/ Dextrose 100 mls @ 200 mls/hr 08/24/18 18:00 09/01/18 10:00 IVPB 200 mls/hr Q8H-IV [facility] Administration Propofol 1,000,000 mcg in 100 mls @ 2.101 mls/hr 08/29/18 07:45 09/01/18 08: 27 Diprivan - IVPB 16.66 mcg/kg/min TITR [facility] 7 mls/hr Administration Protocol 5 MCG/KG/MIN Midazolam HCl 100 mg/ Sodium 100 mls @ 1 mls/hr 08/29/18 11:45 08/31/18 16:18 Chloride IVPB 2 mg/hr TITR [facility] 2 mls/hr Administration Protocol 1 MG/HR Vasopressin 50 units/ Sodium 100 mls @ 4 mls/hr 08/29/18 11:45 09/01/18 09:57 Chloride IVPB 2 units/hr ASDIR [facility] 4 mls/hr Administration Protocol 2 UNITS/HR Fentanyl 500 mcg/ Sodium 100 mls @ 5 mls/hr 08/30/18 07:15 09/01/18 02:00 Chloride IVPB 50 mcg/hr TITR [facility] 10 mls/hr Administration Protocol 25 MCG/HR Norepinephrine Bitartrate 8, 500 mls @ 18.75 mls/hr 08/31/18 16:45 09/01/18 12:19 000 mcg/ Sodium Chloride IV 0 mcg/min TITR [facility] 0 mls/hr Titration Protocol 5 MCG/MIN Pantoprazole Sodium 40 mg 08/11/18 13:15 09/01/18 10:01 Protonix Iv IVPUSH 40 mg DAILY [facility] Administration Impression 1. KRISTIAN 2. Hyperkalemia 3. HIV 4. hyponatremia 5. altered mental status 6. pulm HTN 7. htn 8. pvd 9. resp acidosis 10. resp failure requiring intubation Plan - replace potassium - hold off hd today - volume status stable - will evaluate daily - discussed with ICU team - vent support
--- NOTE | 2018-09-01 13:25 | PROC ---
Procedure Note Procedure: Internal Jugular Central Line Procedure Note INDICATION: Pt requiring multiple medications including vasoactive agents. Changing line from R femoral site. PROCEDURE SMALL BATTERY PLATE ASSEMBLER: Andrez Tolentino M.D. PGY1 ATTENDING PHYSICIAN: Dr. Suero In Attendance (Y/N) Y CONSENT: Consent was obtained from pts daughter Netta during consent for previous line placement. Explained femoral line was a temporary site and would return to IJ site. PROCEDURE SUMMARY: A time out was performed. My hands were washed immediately prior to the procedure. I wore a surgical cap, mask with protective eyewear, full gown and sterile gloves throughout the procedure. The patient was placed in trendelenburg position. Right neck region was prepped using chlorhexidine scrub and draped in sterile fashion using a drape. The medial and lateral heads of the sternocleidomastoid muscle were identified as was the carotid pulse. The Internal Jugular vein was identified using the ultrasound. Anesthesia was achieved over the vein using 1% lidocaine. Using real-time out of plane guidance , the introducer needle was inserted into the Internal Jugular vein under direct ultrasound visualization. Venous blood was withdrawn. The syringe was removed and a guidewire was advanced into the introducer needle. The guidewire was visualized in the Internal Jugular Vein by ultrasound. A small incision was made at the skin surface with a scalpel and the introducer needle was exchanged for a dilator over the guidewire. After appropriate dilation was obtained, the dilator was exchanged over the wire for a triple lumen central venous catheter. The wire was removed and the catheter was sutured in place at 17 cm. A biopatch and a sterile tegaderm was placed over the catheter at the insertion site. The patient tolerated the procedure without any hemodynamic compromise. At time of procedure completion, all ports aspirated and flushed properly. Post-procedure chest x-ray is pending at this time. Estimated blood loss is <5cc.
[2018-09-01] MEDS ORDERED: TRIPLE LUMEN FLUSH 4 ML ML IVPUSH PRN (14:37)
[2018-09-01] MEDS ORDERED: POTASSIUM CHLORIDE TABS 20 MEQ TABLET.ER (FP) PO ONE ×2 (14:37→14:45)
--- NOTE | 2018-09-01 15:34 | PN ---
Physical Exam: SUBJECTIVE: Patient seen and examined HD# 24 Intubation Day Overnight Events: No acute events reported overnight. OBJECTIVE: Vital Signs Period Temp Pulse Resp BP Sys/Buck Pulse Ox Last 24 Hr 97.4 F-98.2 F 94-122 15-33 78-133/51-94 95-100 Intake & Output 09/01/18 09/01/18 09/01/18 06:59 14:59 22:59 Intake Total 1218.1 Output Total 50 Balance 1168.1 Weight 78.046 kg Intake: IV 368.1 DIPRIVAN - 1,000,000 mcg 50.4 In 100 ml @ 5 MCG/KG/MIN 2.101 mls/hr IVPB TITR [facility] Rx#:[id number] Levophed - 8,000 Mcg In 125.7 Normal Saline - 492 ml @ 5 MCG/MIN 18.75 mls/hr IV TITR [facility] Rx#:[id number] Pitressin - 50 Units In 44 Normal Saline - 97.5 ml @ 2 UNITS/HR 4 mls/hr IVPB ASDIR [facility] Rx#: [id number] Sublimaze Injection - 500 126 Mcg In Normal Saline 100 ml Mini Bag 90 ml @ 25 MCG/HR 5 mls/hr IVPB TITR [facility] Rx#:[id number] Versed - 100 mg In Normal 22 Saline - 100 ml @ 1 MG/ HR 1 mls/hr IVPB TITR [facility] Rx#:[id number] IVPB 400 Tube Feeding 400 Tube Irrigant 50 Output: Urine 50 Torres 50 Other: Voiding Method Indwelling Catheter Bowel Movement Yes Weight Measurement Method Built in [facility] Lines: - R Femoral (Day 2) - L Triple Lumen Dialysis Catheter (Day 6) Drains: - OG - Torres - Rectal tube Supplemental Oxygen: Ventilator: Mode: AC Vent rate: 30 Tv: 370 PEEP: 8 FiO2: 40% Physical Exams: GENERAL: The patient is sedated. No localized withdrawal. HEAD: Normal with no signs of trauma. EYES: Closed. LUNGS: Intubated and mechanically ventilated. Breath sounds equal, with trace rhonchi in right middle lobe. No wheezes or rales. HEART: Tachycardic rate with regular rhythm, S1, S2 without murmur, rub or gallop. ABDOMEN: Soft and nondistended. EXTREMITIES: 2+ pulses, warm, well-perfused. 2+ edema to all extremities U>L. SKIN: Warm and dry. Stage 2 decubitus ulcer with dressing in place. Drips: - Fentanyl - Propofol - Versed - Levophed - Vasopressin Anti Infectives: - Nafcillin Day 14 - Meropenem Day 15 Laboratory Results - last 24 hr 08/27/18 08/28/18 09/01/18 20:50 08:00 05:30 WBC 24.8 H RBC 2.66 L Hgb 8.0 L Hct 23.0 L MCV 86.5 MCH 30.1 MCHC 34.8 RDW 16.9 H Plt Count 251 MPV 8.1 Absolute Neuts (auto) 23.5 H Neutrophils % 94.5 H Neutrophils % (Manual) 96.0 H Band Neutrophils % 1.0 Lymphocytes % 1.0 L Lymphocytes % (Manual) 1.0 L Monocytes % 4.2 Monocytes % (Manual) 2 L Eosinophils % 0.0 Eosinophils % (Manual) 0.0 Basophils % 0.3 Basophils % (Manual) 0.0 Myelocytes % (Man) 0 Promyelocytes % (Man) 0 Blast Cells % (Manual) 0 Nucleated RBC % 0 Metamyelocytes 0 Platelet Estimate Normal Polychromasia 1+ Poikilocytosis 1+ Anisocytosis 1+ Microcytosis 1+ Macrocytosis 1+ Target Cells 1+ PT with INR INR PTT (Actin FS) Sodium Potassium Chloride Carbon Dioxide Anion Gap BUN Creatinine Creat Clearance w eGFR Random Glucose Calcium Phosphorus Magnesium Total Bilirubin AST ALT Alkaline Phosphatase Total Protein Albumin Hep C Ab Diagnostic >11.0 H HCV RNA PCR w/Genot Rflx Hcv not detected Liver Fibrosis Interp Crossmatch See Detail 09/01/18 09/01/18 05:30 05:30 WBC RBC Hgb Hct MCV MCH MCHC RDW Plt Count MPV Absolute Neuts (auto) Neutrophils % Neutrophils % (Manual) Band Neutrophils % Lymphocytes % Lymphocytes % (Manual) Monocytes % Monocytes % (Manual) Eosinophils % Eosinophils % (Manual) Basophils % Basophils % (Manual) Myelocytes % (Man) Promyelocytes % (Man) Blast Cells % (Manual) Nucleated RBC % Metamyelocytes Platelet Estimate Polychromasia Poikilocytosis Anisocytosis Microcytosis Macrocytosis Target Cells PT with INR 13.80 H INR 1.17 H PTT (Actin FS) 35.5 Sodium 130 L Potassium 2.9 L* Chloride 94 L Carbon Dioxide 24 Anion Gap 13 BUN 56 H Creatinine 3.2 H Creat Clearance w eGFR 14.45 Random Glucose 180 H Calcium 8.0 L Phosphorus 7.2 H Magnesium 2.0 Total Bilirubin 2.8 H AST 27 ALT 9 L Alkaline Phosphatase 73 Total Protein 4.9 L Albumin 1.5 L Hep C Ab Diagnostic HCV RNA PCR w/Genot Rflx Liver Fibrosis Interp Crossmatch Active Medications Generic Name Dose Route Start Last Admin Trade Name Freq PRN Reason Stop Dose Admin Abacavir/Dolutegravir/Lamivudine 1 each 08/10/18 14:00 09/01/18 10:10 Triumeq (Non-Formulary) PO 1 each DAILY [facility] Administration Acetaminophen 1,000 mg 08/16/18 16:11 08/27/18 02:28 Tylenol Oral Solution - PO 1,000 mg Q6H PRN Administration FEVER Chlorhexidine Gluconate 15 ml 08/17/18 22:00 09/01/18 10:03 Peridex - MM 15 ml BID [facility] Administration Fludrocortisone Acetate 0.05 mg 08/29/18 13:15 09/01/18 10:11 Florinef - NGT 0.05 mg DAILY [facility] Administration Heparin Sodium (Porcine) 5,000 unit 08/17/18 14:00 09/01/18 14:03 Heparin - SQ 5,000 unit TID [facility] Administration Hydrocortisone Sodium Succinate 100 mg 08/29/18 11:30 09/01/18 10:04 Solu-Cortef - IVPUSH 100 mg Q8H-IV [facility] Administration IV Flush 4 ml 08/23/18 11:37 Triple Lumen Flush IVPUSH PRN PRN Protocol IV Flush 4 ml 08/27/18 22:00 09/01/18 12:21 Triple Lumen Flush IVPUSH Not Given BID AL[facility] IV Flush 4 ml 09/01/18 14:37 Triple Lumen Flush IVPUSH PRN PRN Protocol Nafcillin Sodium 2 gm/ 100 mls @ 100 mls/hr 08/19/18 20:00 09/01/18 15:11 Dextrose IVPB 100 mls/hr Q4H-IV [facility] Administration Protocol Meropenem 500 mg/ Dextrose 100 mls @ 200 mls/hr 08/24/18 18:00 09/01/18 10:00 IVPB 200 mls/hr Q8H-IV [facility] Administration Propofol 1,000,000 mcg in 100 mls @ 2.101 mls/hr 08/29/18 07:45 09/01/18 15: 27 Diprivan - IVPB 16.66 mcg/kg/min TITR [facility] 7 mls/hr Administration Protocol 5 MCG/KG/MIN Midazolam HCl 100 mg/ Sodium 100 mls @ 1 mls/hr 08/29/18 11:45 08/31/18 16:18 Chloride IVPB 2 mg/hr TITR [facility] 2 mls/hr Administration Protocol 1 MG/HR Vasopressin 50 units/ Sodium 100 mls @ 4 mls/hr 08/29/18 11:45 09/01/18 09:57 Chloride IVPB 2 units/hr ASDIR [facility] 4 mls/hr Administration Protocol 2 UNITS/HR Fentanyl 500 mcg/ Sodium 100 mls @ 5 mls/hr 08/30/18 07:15 09/01/18 15:26 Chloride IVPB 50 mcg/hr TITR [facility] 10 mls/hr Administration Protocol 25 MCG/HR Norepinephrine Bitartrate 8, 500 mls @ 18.75 mls/hr 08/31/18 16:45 09/01/18 12:19 000 mcg/ Sodium Chloride IV 0 mcg/min TITR [facility] 0 mls/hr Titration Protocol 5 MCG/MIN Pantoprazole Sodium 40 mg 08/11/18 13:15 09/01/18 10:01 Protonix Iv IVPUSH 40 mg DAILY [facility] Administration ASSESSMENT/PLAN: 67 year old female with HTN, CAD s/p CABG in 2009, PVD with B/L LE stents, HIV, HEP C, COPD and CHF. Admitted to the ICU for Acute hypoxic hypercapnic respiratory failure and dehydration. Neuro: - Currently sedated with Propofol, Fentanyl, and Versed. Will not attempt sedation wean given current respiratory status. Endocrine: - Consult: Dr. Leach - Cr stabilized. Continue to suspect likely acute tubular necrosis given metabolic acidosis. - Dialysis per renal service. Do not anticipate run today. - Hypokalemia noted on morning labs. Will replenish. - Continue to trend electrolytes. Cardiovascular: - Consult: Dr. Fitzgerald / Dr. Hogan - Requiring Levophed gtts to maintain MAP >65. Holding antihypertensives. - Continue Vasopressin, Hydrocortisone, and Fludicortisone. - LV Diastolic/Systolic Dysfunction - Holding home Clopidogrel given anemia. - Hemoglobin goal >8.0. At goal today. Pulm / Resp: - Acute on Chronic Hypoxic and Hypercapneic Respiratory Failure likely secondary to pneumonia. - Continue albuterol PRN. - CXR this AM unchanged from yesterday. - Continues to require increased ventilatory support. Will not trial wean given events overnight. - SPO2 goal 90% - pH goal 7.2, allowing for permissive hypercapnia. - Pt scheduled for bedside trach tomorrow. Pre-op labs ordered. Gastrointestinal: - Mild diarrhea noted in rectal tube. Possibly secondary to tube feeds. Infectious Disease: - Consult Dr. Khan - h/o HIV: continue HAART Therapy per ID - Leukocytosis trending downward with tachycardia but without fever overnight. - Continue Meropenem and Nafcillin for antibiotic coverage per ID service. May consider discontinuing or transitioning given number of doses without significant change in clinical condition. Sputum culture again grew Pseudomonas. Blood cultures finalized without growth. Urine culture grew yeast like organism, suspected to be a contaminant. Integumentary: - Decubitus ulcer. Dressing changes to be performed by nursing staff. FEN: -Tube Feed per dietary. - NPO after midnight Prophylaxis: -DVT: Heparin SQ -GI: Pantoprazole Code Status: - DNR Procedures: - Will transition from right femoral line back to right IJ. Dispo: Continue to monitor the intubated pt in the ICU. Bedside trach scheduled for tomorrow. Andrez Tolentino MD, PGY1 ICU Consult Service Visit type - Emergency Visit Emergency Visit: No - New Patient This patient is new to me today: No - Critical Care Critical Care patient: Yes Total Critical Care Time (in minutes): 41 Critical Care Statement: The care of this patient involved high complexity decision making to prevent further life threatening deterioration of the patient 's condition and/or to evaluate & treat vital organ system(s) failure or risk of failure.
--- NOTE | 2018-09-01 16:47 | PN ---
Progress Note, Physician History of Present Illness: intubated and sedated - Current Medication List Current Medications: Active Medications Abacavir/Dolutegravir/Lamivudine (Triumeq (Non-Formulary)) 1 each PO DAILY [facility] Last Admin: 09/01/18 10:10 Dose: 1 each Acetaminophen (Tylenol Oral Solution -) 1,000 mg PO Q6H PRN PRN Reason: FEVER Last Admin: 08/27/18 02:28 Dose: 1,000 mg Chlorhexidine Gluconate (Peridex -) 15 ml MM BID [facility] Last Admin: 09/01/18 10:03 Dose: 15 ml Fludrocortisone Acetate (Florinef -) 0.05 mg NGT DAILY [facility] Last Admin: 09/01/18 10:11 Dose: 0.05 mg Heparin Sodium (Porcine) (Heparin -) 5,000 unit SQ TID [facility] Last Admin: 09/01/18 14:03 Dose: 5,000 unit Hydrocortisone Sodium Succinate (Solu-Cortef -) 100 mg IVPUSH Q8H-IV [facility] Last Admin: 09/01/18 10:04 Dose: 100 mg IV Flush (Triple Lumen Flush) 4 ml IVPUSH PRN PRN PRN Reason: Protocol IV Flush (Triple Lumen Flush) 4 ml IVPUSH BID [facility] Last Admin: 09/01/18 12:21 Dose: Not Given IV Flush (Triple Lumen Flush) 4 ml IVPUSH PRN PRN PRN Reason: Protocol Nafcillin Sodium 2 gm/ (Dextrose) 100 mls @ 100 mls/hr IVPB Q4H-IV [facility]; Protocol Last Admin: 09/01/18 15:11 Dose: 100 mls/hr Meropenem 500 mg/ Dextrose 100 mls @ 200 mls/hr IVPB Q8H-IV [facility] Last Admin: 09/01/18 10:00 Dose: 200 mls/hr Propofol (Diprivan -) 1,000,000 mcg in 100 mls @ 2.101 mls/hr IVPB TITR [facility]; Protocol Last Admin: 09/01/18 15:27 Dose: 16.66 mcg/kg/min, 7 mls/hr Midazolam HCl 100 mg/ Sodium (Chloride) 100 mls @ 1 mls/hr IVPB TITR [facility]; Protocol Last Admin: 08/31/18 16:18 Dose: 2 mg/hr, 2 mls/hr Vasopressin 50 units/ Sodium (Chloride) 100 mls @ 4 mls/hr IVPB ASDIR [facility]; Protocol Last Admin: 09/01/18 16:27 Dose: 2 units/hr, 4 mls/hr Fentanyl 500 mcg/ Sodium (Chloride) 100 mls @ 5 mls/hr IVPB TITR [facility]; Protocol Last Admin: 09/01/18 15:26 Dose: 50 mcg/hr, 10 mls/hr Norepinephrine Bitartrate 8, (000 mcg/ Sodium Chloride) 500 mls @ 18.75 mls/hr IV TITR [facility]; Protocol Last Titration: 09/01/18 12:19 Dose: 0 mcg/min, 0 mls/hr Pantoprazole Sodium (Protonix Iv) 40 mg IVPUSH DAILY [facility] Last Admin: 09/01/18 10:01 Dose: 40 mg - Objective Vital Signs: Vital Signs Temperature 97.4 F L 09/01/18 08:00 Pulse Rate 119 H 09/01/18 16:27 Respiratory Rate 30 H 09/01/18 15:16 Blood Pressure 91/73 09/01/18 16:27 O2 Sat by Pulse Oximetry (%) 100 09/01/18 08:30 Constitutional: Yes: No Distress HENT: Yes: Atraumatic Neck: Yes: Supple Cardiovascular: Yes: Regular Rate and Rhythm Respiratory: Yes: Rhonchi Gastrointestinal: Yes: Normal Bowel Sounds Edema: Yes Edema: LLE: 1+, RLE: 1+ Neurological: Yes: Other (intubated and sedated) Labs: CBC, BMP 09/01/18 05:30 09/01/18 05:30 INR, PTT INR 1.17 (0.83-1.09) H 09/01/18 05:30 Problem List - Problems (1) Altered mental status, unspecified Code(s): R41.82 - ALTERED MENTAL STATUS, UNSPECIFIED Qualifiers: Altered mental status type: somnolence Qualified Code(s): R40.0 - Somnolence (2) COPD with acute exacerbation Assessment/Plan: steroids duo nebs INTUBATED Code(s): J44.1 - CHRONIC OBSTRUCTIVE PULMONARY DISEASE W (ACUTE) EXACERBATION (3) Elevated troponin I level Code(s): R74.8 - ABNORMAL LEVELS OF OTHER SERUM ENZYMES (4) Hyperkalemia Code(s): E87.5 - HYPERKALEMIA (5) COPD (chronic obstructive pulmonary disease) Code(s): J44.9 - CHRONIC OBSTRUCTIVE PULMONARY DISEASE, UNSPECIFIED Qualifiers: (6) HIV Assessment/Plan: continue home meds id on board Code(s): Z21 - ASYMPTOMATIC HUMAN IMMUNODEFICIENCY VIRUS INFECTION STATUS (7) HTN (hypertension) Code(s): I10 - ESSENTIAL (PRIMARY) HYPERTENSION Qualifiers: Hypertension type: essential hypertension Qualified Code(s): I10 - Essential (primary) hypertension (8) Hyperlipidemia Code(s): E78.5 - HYPERLIPIDEMIA, UNSPECIFIED Qualifiers: Hyperlipidemia type: pure hypercholesterolemia Qualified Code(s): E78.00 - Pure hypercholesterolemia, unspecified; E78.0 - Pure hypercholesterolemia (9) PVD (peripheral vascular disease) Code(s): I73.9 - PERIPHERAL VASCULAR DISEASE, UNSPECIFIED (10) CHF (congestive heart failure) Code(s): I50.9 - HEART FAILURE, UNSPECIFIED Qualifiers: Heart failure type: diastolic Heart failure chronicity: chronic Qualified Code(s): I50.32 - Chronic diastolic (congestive) heart failure (11) Sepsis Code(s): A41.9 - SEPSIS, UNSPECIFIED ORGANISM (12) Respiratory acidosis Code(s): E87.2 - ACIDOSIS (13) Respiratory failure requiring intubation Code(s): J96.90 - RESPIRATORY FAILURE, UNSP, UNSP W HYPOXIA OR HYPERCAPNIA Assessment/Plan cc time in icu 35 min for possible trach tomorrow
[2018-09-01] MEDS: NOREPINEPHRINE BITARTRATE 8,000 MCG in SODIUM CHLORIDE 492 ML IV SCH (19:42)
[2018-09-01] MEDS: MIDAZOLAM 100 MG in SODIUM CHLORIDE 100 ML IVPB SCH (19:43)
--- NOTE | 2018-09-01 23:44 | PN ---
Progress Note, Physician History of Present Illness: UNRESPONSIVE BREATHING NON LABORED ON VENTILATOR AFEBRILE PRESSORS WBC REMAINS ELEVATEDN BUT IMPROVED BC MSSA SPUTUM C/S MSSA PSEUDOMONAS - Current Medication List Current Medications: Active Medications Abacavir/Dolutegravir/Lamivudine (Triumeq (Non-Formulary)) 1 each PO DAILY [facility] Last Admin: 09/01/18 10:10 Dose: 1 each Acetaminophen (Tylenol Oral Solution -) 1,000 mg PO Q6H PRN PRN Reason: FEVER Last Admin: 08/27/18 02:28 Dose: 1,000 mg Chlorhexidine Gluconate (Peridex -) 15 ml MM BID [facility] Last Admin: 09/01/18 21:10 Dose: 15 ml Fludrocortisone Acetate (Florinef -) 0.05 mg NGT DAILY [facility] Last Admin: 09/01/18 10:11 Dose: 0.05 mg Heparin Sodium (Porcine) (Heparin -) 5,000 unit SQ TID [facility]ON Last Admin: 09/01/18 21:10 Dose: 5,000 unit Hydrocortisone Sodium Succinate (Solu-Cortef -) 100 mg IVPUSH Q8H-IV [facility] Last Admin: 09/01/18 17:12 Dose: 100 mg IV Flush (Triple Lumen Flush) 4 ml IVPUSH PRN PRN PRN Reason: Protocol IV Flush (Triple Lumen Flush) 4 ml IVPUSH BID [facility] Last Admin: 09/01/18 21:11 Dose: Not Given IV Flush (Triple Lumen Flush) 4 ml IVPUSH PRN PRN PRN Reason: Protocol Nafcillin Sodium 2 gm/ (Dextrose) 100 mls @ 100 mls/hr IVPB Q4H-IV [facility]; Protocol Last Admin: 09/01/18 21:10 Dose: 100 mls/hr Meropenem 500 mg/ Dextrose 100 mls @ 200 mls/hr IVPB Q8H-IV [facility] Last Admin: 09/01/18 17:12 Dose: 200 mls/hr Propofol (Diprivan -) 1,000,000 mcg in 100 mls @ 2.101 mls/hr IVPB TITR [facility]; Protocol Last Titration: 09/01/18 17:31 Dose: 30 mcg/kg/min, 12.604 mls/hr Midazolam HCl 100 mg/ Sodium (Chloride) 100 mls @ 1 mls/hr IVPB TITR [facility]; Protocol Last Admin: 09/01/18 19:43 Dose: Not Given Vasopressin 50 units/ Sodium (Chloride) 100 mls @ 4 mls/hr IVPB ASDIR [facility]; Protocol Last Admin: 09/01/18 16:27 Dose: 2 units/hr, 4 mls/hr Fentanyl 500 mcg/ Sodium (Chloride) 100 mls @ 5 mls/hr IVPB TITR [facility]; Protocol Last Admin: 09/01/18 15:26 Dose: 50 mcg/hr, 10 mls/hr Norepinephrine Bitartrate 8, (000 mcg/ Sodium Chloride) 500 mls @ 18.75 mls/hr IV TITR AL[facility]; Protocol Last Admin: 09/01/18 19:42 Dose: Not Given Pantoprazole Sodium (Protonix Iv) 40 mg IVPUSH DAILY [facility] Last Admin: 09/01/18 10:01 Dose: 40 mg Rocuronium [place] (Zemuron -) 95 mg 1.2 mg/kg (95 mg) IVPUSH ONCE ONE Stop: 09/02/18 09:01 - Objective Vital Signs: Vital Signs Temperature 98.9 F 09/01/18 23:00 Pulse Rate 118 H 09/01/18 23:00 Respiratory Rate 16 09/01/18 23:00 Blood Pressure 94/71 09/01/18 23:00 O2 Sat by Pulse Oximetry (%) 93 L 09/01/18 22:00 Constitutional: Yes: No Distress Eyes: Yes: Conjunctiva Clear Cardiovascular: Yes: Regular Rate and Rhythm, S1, S2 Respiratory: Yes: CTA Bilaterally, Mechanically Ventilated Gastrointestinal: Yes: Normal Bowel Sounds Edema: Yes Edema: LLE: 1+, RLE: 1+ Labs: CBC, BMP 09/01/18 05:30 09/01/18 05:30 INR, PTT INR 1.17 (0.83-1.09) H 09/01/18 05:30 Assessment/Plan SEPSIS MSSA BACTEREMIA ? PNEUMONIA ?ENDOCARDITIS RESPIRATORY FAILURE/ COPD EXACERBATION HCAP RENAL FAILURE MARKED LEUKOCYTOSIS HIV+ CD4 437 CONTINUE NAFCILLIN/ MEROPENEM HEMODYNAMIC/ VENTILATORY SUPPORT CONTINUE ART PROGNOSIS POOR
[2018-09-02] MEDS: MEROPENEM 500 MG in DEXTROSE 5%-WATER 100 ML IVPB SCH ×3 (01:51→17:52)
[2018-09-02] MEDS: HYDROCORTISONE SOD SUCCINATE 100 MG/2 ML VIAL IVPUSH SCH ×3 (01:51→18:02)
[2018-09-02] MEDS: NAFCILLIN - 2 GM in DEXTROSE 5%-WATER - 100 ML IVPB SCH ×6 (01:52→22:25)
[2018-09-02] MEDS ORDERED: PT OWN MED DRAWER 7, Y5N ONE ×5 (04:58→21:21)
[2018-09-02] MEDS: HEPARIN NA (PORCINE) 5,000 UNITS/ML 1ML VIAL SQ SCH ×3 (05:12→22:25)
[2018-09-02] MEDS: BANATROL PLUS POWDER PACKET PO SCH ×3 (05:12→22:27)
[2018-09-02] MEDS: VASOPRESSIN 50 UNITS in SODIUM CHLORIDE 97.5 ML IVPB SCH ×2 (06:25→21:01)
[2018-09-02 06:43] LABS: BASO % 0.4 % (0-2.0); EOS % 0.1 % (0-4.5); HEMATOCRIT 23.9 % (32.4-45.2); HEMOGLOBIN 8.2 GM/dL (10.7-15.3); LYMPH % 1.1 % (8-40); MCH 30.1 pg (25.7-33.7); MCHC 34.4 g/dl (32.0-36.0); MEAN CELL VOLUME 87.5 fl (80-96); MEAN PLT VOLUME 8.7 fl (7.5-11.1); MONO % 13.1 % (3.8-10.2); NEUT % 85.3 % (42.8-82.8); PLATELET COUNT 226 K/MM3 (134-434); RBC 2.73 M/mm3 (3.60-5.2); RDW 16.8 % (11.6-15.6); WHITE BLOOD COUNT 26.1 K/mm3 (4.0-10.0)
[2018-09-02 06:53] LABS: INR 1.18 (0.83-1.09); PROTHROMBIN TIME (PATIENT) 13.9 SEC (9.7-13.0)
[2018-09-02 06:55] LABS: ACTIVATED PTT 38.2 SECONDS (25.2-36.5)
[2018-09-02 06:59] LABS: ANION GAP 14 MMOL/L (8-16); BLOOD UREA NITROGEN 62 mg/dL (7-18); CALCIUM 8.2 mg/dL (8.5-10.1); CHLORIDE 92 mmol/L (98-107); CO2 23 mmol/L (21-32); CREATININE 3.4 mg/dL (0.55-1.3); GLUCOSE,RANDOM 181 mg/dL (74-106); MAGNESIUM 1.9 mg/dL (1.8-2.4); PHOSPHOROUS 7.7 mg/dL (2.5-4.9); POTASSIUM 3.3 mmol/L (3.5-5.1); SODIUM 129 mmol/L (136-145)
[2018-09-02] MEDS: PROPOFOL 1,000,000 MCG/100 ML VIAL IVPB SCH (08:32)
[2018-09-02] MEDS ORDERED: ROCURONIUM BROMIDE 50 MG/5 ML VIAL IVPUSH ONE (09:00)
[2018-09-02] MEDS: ABACAVIR/DOLUTEGRAVIR/LAMIVUDI (TRIUMEQ) TABLET -NF PO SCH (11:00)
[2018-09-02] MEDS: CHLORHEXIDINE GLUCONATE 0.12% 15ML CUP MM SCH ×2 (11:00→22:26)
[2018-09-02] MEDS: KCL 10 MEQ IVPB 10 MEQ/100 ML INFUS.BAG IVPB SCH ×3 (11:00→16:25)
[2018-09-02] MEDS: FLUDROCORTISONE ACETATE 0.1 MG TABLET (FP) NGT SCH (11:00)
[2018-09-02] MEDS: PANTOPRAZOLE SODIUM 40 MG VIAL IVPUSH SCH (11:00)
[2018-09-02 11:03] LABS: ANISOCYTOSIS 1+; MACROCYTOSIS 1+; PLATELET ESTIMATE NORMAL; TARGET CELLS 1+
[2018-09-02] MEDS ORDERED: NOREPINEPHRINE BITARTRATE 4 MG/4 ML ML IV ONE (11:08)
--- NOTE | 2018-09-02 11:22 | PN ---
Teaching Attending Note Name of Resident: Andrez Tolentino ATTENDING PHYSICIAN STATEMENT I saw and evaluated the patient. I reviewed the resident's note and discussed the case with the resident. I agree with the resident's findings and plan as documented. SUBJECTIVE: Patient seen and examined in the ICU. Remains intubated, sedated. AC Mode of vent, 40% FiO2. Off levophed drip but remains on Vasopressin @ 3 units for hemodynamic support. OBJECTIVE: Intake & Output 08/30/18 08/31/18 09/01/18 09/02/18 23:59 23:59 23:59 23:59 Intake Total 4123 2204.2 2620.9 910 Output Total 150 200 800 150 Balance 3973 2004.2 1820.9 760 Weight 166 lb 3.657 oz 168 lb 5 oz 172 lb 1 oz 172 lb 1 oz Last Vital Signs Temp Pulse Resp BP Pulse Ox 97.7 F 121 H 31 H 92/51 L 93 L 09/02/18 06:00 09/02/18 07:52 09/02/18 10:00 09/02/18 07:52 09/02/18 10:00 Active Medications Abacavir/Dolutegravir/Lamivudine (Triumeq (Non-Formulary)) 1 each PO DAILY [facility] Last Admin: 09/02/18 11:00 Dose: Not Given Acetaminophen (Tylenol Oral Solution -) 1,000 mg PO Q6H PRN PRN Reason: FEVER Last Admin: 08/27/18 02:28 Dose: 1,000 mg Chlorhexidine Gluconate (Peridex -) 15 ml MM BID [facility] Last Admin: 09/02/18 11:00 Dose: 15 ml Fludrocortisone Acetate (Florinef -) 0.05 mg NGT DAILY [facility] Last Admin: 09/02/18 11:00 Dose: Not Given Heparin Sodium (Porcine) (Heparin -) 5,000 unit SQ TID [facility] Last Admin: 09/02/18 05:12 Dose: Not Given Hydrocortisone Sodium Succinate (Solu-Cortef -) 100 mg IVPUSH Q8H-IV [facility] Last Admin: 09/02/18 11:00 Dose: 100 mg IV Flush (Triple Lumen Flush) 4 ml IVPUSH PRN PRN PRN Reason: Protocol IV Flush (Triple Lumen Flush) 4 ml IVPUSH BID [facility] Last Admin: 09/01/18 21:11 Dose: Not Given IV Flush (Triple Lumen Flush) 4 ml IVPUSH PRN PRN PRN Reason: Protocol Nafcillin Sodium 2 gm/ (Dextrose) 100 mls @ 100 mls/hr IVPB Q4H-IV [facility]; Protocol Last Admin: 09/02/18 11:00 Dose: 100 mls/hr Meropenem 500 mg/ Dextrose 100 mls @ 200 mls/hr IVPB Q8H-IV [facility] Last Admin: 09/02/18 11:00 Dose: 200 mls/hr Propofol (Diprivan -) 1,000,000 mcg in 100 mls @ 2.101 mls/hr IVPB TITR [facility]; Protocol Last Admin: 09/02/18 08:32 Dose: 20 mcg/kg/min, 8.403 mls/hr Midazolam HCl 100 mg/ Sodium (Chloride) 100 mls @ 1 mls/hr IVPB TITR [facility]; Protocol Last Admin: 09/01/18 19:43 Dose: Not Given Vasopressin 50 units/ Sodium (Chloride) 100 mls @ 4 mls/hr IVPB ASDIR [facility]; Protocol Last Admin: 09/02/18 06:25 Dose: 2 units/hr, 4 mls/hr Fentanyl 500 mcg/ Sodium (Chloride) 100 mls @ 5 mls/hr IVPB TITR [facility]; Protocol Last Admin: 09/01/18 15:26 Dose: 50 mcg/hr, 10 mls/hr Norepinephrine Bitartrate 8, (000 mcg/ Sodium Chloride) 500 mls @ 18.75 mls/hr IV TITR [facility]; Protocol Last Admin: 09/01/18 19:42 Dose: Not Given Potassium Chloride (Potassium Chloride 10 Meq Premix Ivpb -) 10 meq in 100 mls @ 100 mls/hr IVPB Q60M [facility] Stop: 09/02/18 13:59 Last Admin: 09/02/18 11:00 Dose: 100 mls/hr Pantoprazole Sodium (Protonix Iv) 40 mg IVPUSH DAILY [facility] Last Admin: 09/02/18 11:00 Dose: 40 mg Gen: intubated, sedated Heart: RRR Lung: bilateral rhonchi Abd: soft, nontender Ext: + edema Laboratory Results - last 24 hr 09/01/18 09/02/18 09/02/18 05:30 05:30 05:30 WBC 26.1 H RBC 2.73 L Hgb 8.2 L Hct 23.9 L MCV 87.5 MCH 30.1 MCHC 34.4 RDW 16.8 H Plt Count 226 MPV 8.7 Absolute Neuts (auto) 22.2 H Neutrophils % 85.3 H Neutrophils % (Manual) 96.0 H Band Neutrophils % 1.0 Lymphocytes % 1.1 L Lymphocytes % (Manual) 1.0 L Monocytes % 13.1 H D Monocytes % (Manual) 2 L Eosinophils % 0.1 D Eosinophils % (Manual) 0.0 Basophils % 0.4 Basophils % (Manual) 0.0 Myelocytes % (Man) 0 Promyelocytes % (Man) 0 Blast Cells % (Manual) 0 Nucleated RBC % 0 Metamyelocytes 0 Platelet Estimate Normal Polychromasia 1+ Poikilocytosis 1+ Anisocytosis 1+ Microcytosis 1+ Macrocytosis 1+ Target Cells 1+ PT with INR 13.90 H INR 1.18 H PTT (Actin FS) 38.2 H Sodium Potassium Chloride Carbon Dioxide Anion Gap BUN Creatinine Creat Clearance w eGFR Random Glucose Calcium Phosphorus Magnesium 09/02/18 05:30 WBC RBC Hgb Hct MCV MCH MCHC RDW Plt Count MPV Absolute Neuts (auto) Neutrophils % Neutrophils % (Manual) Band Neutrophils % Lymphocytes % Lymphocytes % (Manual) Monocytes % Monocytes % (Manual) Eosinophils % Eosinophils % (Manual) Basophils % Basophils % (Manual) Myelocytes % (Man) Promyelocytes % (Man) Blast Cells % (Manual) Nucleated RBC % Metamyelocytes Platelet Estimate Polychromasia Poikilocytosis Anisocytosis Microcytosis Macrocytosis Target Cells PT with INR INR PTT (Actin FS) Sodium 129 L Potassium 3.3 L Chloride 92 L Carbon Dioxide 23 Anion Gap 14 BUN 62 H Creatinine 3.4 H Creat Clearance w eGFR 13.47 Random Glucose 181 H Calcium 8.2 L Phosphorus 7.7 H Magnesium 1.9 ASSESSMENT AND PLAN: Acute on Chronic Hypoxic and Hypercapneic Respiratory Failure Acute COPD Exacerbation ARF Pneumonia Septic Shock Acute Kidney Injury Metabolic and Respiratory Acidosis Pulmonary HTN LV Diastolic Dysfunction CAD s/p CABG +Troponins likely Demand Ischemia PAD HIV Hep C HTN Hypercholesterolemia - For Percutaneous Trach today due to failure to wean - Sedate for vent synchrony - Vasopressin, Hydrocortisone, & Fludrocortisone for shock - HD per Renal - continue antibiotics per ID - monitor urine output, creatinine - inhaled bronchodilators - taper FiO2, PEEP to keep SpO2 >90% - low tidal ventilation <6cc/kg/IBW, keep Plat <30 - enteral feeds held for Trach placement. Will need PEG. - DVT/GI prophylaxis - continue ICU monitoring - Patient is DNR Dr Suero Critical care time spent in reviewing chart, evaluating patient and formulating plan 35 min
[2018-09-02] MEDS ORDERED: LIDOCAINE HCL 1%, 10 MG/ML (20ML VIAL) INF ONE (12:09)
[2018-09-02] MEDS ORDERED: METOPROLOL TARTRATE 5 MG/5 ML VIAL ONE (12:14)
[2018-09-02] MEDS ORDERED: fentaNYL CITRATE 250 MCG/5 ML VIAL ONE ×2 (12:28→22:45)
--- NOTE | 2018-09-02 12:44 | PN ---
Progress Note, Physician History of Present Illness: tracheostomy - Current Medication List Current Medications: Active Medications Abacavir/Dolutegravir/Lamivudine (Triumeq (Non-Formulary)) 1 each PO DAILY [facility] Last Admin: 09/02/18 11:00 Dose: Not Given Acetaminophen (Tylenol Oral Solution -) 1,000 mg PO Q6H PRN PRN Reason: FEVER Last Admin: 08/27/18 02:28 Dose: 1,000 mg Chlorhexidine Gluconate (Peridex -) 15 ml MM BID [facility] Last Admin: 09/02/18 11:00 Dose: 15 ml Fludrocortisone Acetate (Florinef -) 0.05 mg NGT DAILY [facility] Last Admin: 09/02/18 11:00 Dose: Not Given Heparin Sodium (Porcine) (Heparin -) 5,000 unit SQ TID [facility] Last Admin: 09/02/18 05:12 Dose: Not Given Hydrocortisone Sodium Succinate (Solu-Cortef -) 100 mg IVPUSH Q8H-IV [facility] Last Admin: 09/02/18 11:00 Dose: 100 mg IV Flush (Triple Lumen Flush) 4 ml IVPUSH PRN PRN PRN Reason: Protocol IV Flush (Triple Lumen Flush) 4 ml IVPUSH BID [facility] Last Admin: 09/01/18 21:11 Dose: Not Given IV Flush (Triple Lumen Flush) 4 ml IVPUSH PRN PRN PRN Reason: Protocol Nafcillin Sodium 2 gm/ (Dextrose) 100 mls @ 100 mls/hr IVPB Q4H-IV [facility]; Protocol Last Admin: 09/02/18 11:00 Dose: 100 mls/hr Meropenem 500 mg/ Dextrose 100 mls @ 200 mls/hr IVPB Q8H-IV [facility] Last Admin: 09/02/18 11:00 Dose: 200 mls/hr Propofol (Diprivan -) 1,000,000 mcg in 100 mls @ 2.101 mls/hr IVPB TITR [facility]; Protocol Last Admin: 09/02/18 08:32 Dose: 20 mcg/kg/min, 8.403 mls/hr Midazolam HCl 100 mg/ Sodium (Chloride) 100 mls @ 1 mls/hr IVPB TITR [facility]; Protocol Last Admin: 09/01/18 19:43 Dose: Not Given Vasopressin 50 units/ Sodium (Chloride) 100 mls @ 4 mls/hr IVPB ASDIR [facility]; Protocol Last Admin: 09/02/18 06:25 Dose: 2 units/hr, 4 mls/hr Fentanyl 500 mcg/ Sodium (Chloride) 100 mls @ 5 mls/hr IVPB TITR [facility]; Protocol Last Admin: 09/01/18 15:26 Dose: 50 mcg/hr, 10 mls/hr Norepinephrine Bitartrate 8, (000 mcg/ Sodium Chloride) 500 mls @ 18.75 mls/hr IV TITR [facility]; Protocol Last Admin: 09/01/18 19:42 Dose: Not Given Potassium Chloride (Potassium Chloride 10 Meq Premix Ivpb -) 10 meq in 100 mls @ 100 mls/hr IVPB Q60M [facility] Stop: 09/02/18 13:59 Last Admin: 09/02/18 11:00 Dose: 100 mls/hr Pantoprazole Sodium (Protonix Iv) 40 mg IVPUSH DAILY [facility] Last Admin: 09/02/18 11:00 Dose: 40 mg - Objective Vital Signs: Vital Signs Temperature 98.6 F 09/02/18 09:00 Pulse Rate 112 H 09/02/18 12:23 Respiratory Rate 16 09/02/18 12:23 Blood Pressure 94/70 09/02/18 12:23 O2 Sat by Pulse Oximetry (%) 93 L 09/02/18 10:00 Constitutional: Yes: Calm HENT: Yes: Atraumatic Neck: Yes: Other (trach in place) Cardiovascular: Yes: Regular Rate and Rhythm Respiratory: Yes: Rhonchi Gastrointestinal: Yes: Normal Bowel Sounds Extremities: Yes: WNL Edema: No Neurological: Yes: Other (intubated and sedated) Labs: CBC, BMP 09/02/18 05:30 09/02/18 05:30 INR, PTT INR 1.18 (0.83-1.09) H 09/02/18 05:30 Problem List - Problems (1) Altered mental status, unspecified Code(s): R41.82 - ALTERED MENTAL STATUS, UNSPECIFIED Qualifiers: Altered mental status type: somnolence Qualified Code(s): R40.0 - Somnolence (2) COPD with acute exacerbation Assessment/Plan: steroids duo nebs INTUBATED Code(s): J44.1 - CHRONIC OBSTRUCTIVE PULMONARY DISEASE W (ACUTE) EXACERBATION (3) Elevated troponin I level Code(s): R74.8 - ABNORMAL LEVELS OF OTHER SERUM ENZYMES (4) Hyperkalemia Code(s): E87.5 - HYPERKALEMIA (5) COPD (chronic obstructive pulmonary disease) Code(s): J44.9 - CHRONIC OBSTRUCTIVE PULMONARY DISEASE, UNSPECIFIED Qualifiers: COPD type: COPD with acute lower respiratory infection Qualified Code(s): J44.0 - Chronic obstructive pulmonary disease with acute lower respiratory infection (6) HIV Assessment/Plan: continue home meds id on board Code(s): Z21 - ASYMPTOMATIC HUMAN IMMUNODEFICIENCY VIRUS INFECTION STATUS (7) HTN (hypertension) Assessment/Plan: bp low due to sepsis on pressors Code(s): I10 - ESSENTIAL (PRIMARY) HYPERTENSION Qualifiers: Hypertension type: essential hypertension Qualified Code(s): I10 - Essential (primary) hypertension (8) Hyperlipidemia Code(s): E78.5 - HYPERLIPIDEMIA, UNSPECIFIED Qualifiers: Hyperlipidemia type: pure hypercholesterolemia Qualified Code(s): E78.00 - Pure hypercholesterolemia, unspecified; E78.0 - Pure hypercholesterolemia (9) PVD (peripheral vascular disease) Code(s): I73.9 - PERIPHERAL VASCULAR DISEASE, UNSPECIFIED (10) CHF (congestive heart failure) Code(s): I50.9 - HEART FAILURE, UNSPECIFIED Qualifiers: Heart failure type: diastolic Heart failure chronicity: chronic Qualified Code(s): I50.32 - Chronic diastolic (congestive) heart failure (11) Sepsis Assessment/Plan: on abx monitor wbc Code(s): A41.9 - SEPSIS, UNSPECIFIED ORGANISM (12) Respiratory acidosis Code(s): E87.2 - ACIDOSIS (13) Respiratory failure requiring intubation Assessment/Plan: on trach Code(s): J96.90 - RESPIRATORY FAILURE, UNSP, UNSP W HYPOXIA OR HYPERCAPNIA
--- NOTE | 2018-09-02 13:19 | PN ---
Progress Note, Physician History of Present Illness: UNRESPONSIVE S/P TRACHEOSTOMY BREATHING NON LABORED ON VENTILATOR AFEBRILE WBC REMAINS ELEVATED BC MSSA SPUTUM C/S MSSA PSEUDOMONAS - Current Medication List Current Medications: Active Medications Abacavir/Dolutegravir/Lamivudine (Triumeq (Non-Formulary)) 1 each PO DAILY [facility] Last Admin: 09/02/18 11:00 Dose: Not Given Acetaminophen (Tylenol Oral Solution -) 1,000 mg PO Q6H PRN PRN Reason: FEVER Last Admin: 08/27/18 02:28 Dose: 1,000 mg Chlorhexidine Gluconate (Peridex -) 15 ml MM BID [facility] Last Admin: 09/02/18 11:00 Dose: 15 ml Fludrocortisone Acetate (Florinef -) 0.05 mg NGT DAILY [facility] Last Admin: 09/02/18 11:00 Dose: Not Given Heparin Sodium (Porcine) (Heparin -) 5,000 unit SQ TID [facility] Last Admin: 09/02/18 05:12 Dose: Not Given Hydrocortisone Sodium Succinate (Solu-Cortef -) 100 mg IVPUSH Q8H-IV [facility] Last Admin: 09/02/18 11:00 Dose: 100 mg IV Flush (Triple Lumen Flush) 4 ml IVPUSH PRN PRN PRN Reason: Protocol IV Flush (Triple Lumen Flush) 4 ml IVPUSH BID [facility] Last Admin: 09/01/18 21:11 Dose: Not Given IV Flush (Triple Lumen Flush) 4 ml IVPUSH PRN PRN PRN Reason: Protocol Nafcillin Sodium 2 gm/ (Dextrose) 100 mls @ 100 mls/hr IVPB Q4H-IV [facility]; Protocol Last Admin: 09/02/18 11:00 Dose: 100 mls/hr Meropenem 500 mg/ Dextrose 100 mls @ 200 mls/hr IVPB Q8H-IV [facility] Last Admin: 09/02/18 11:00 Dose: 200 mls/hr Propofol (Diprivan -) 1,000,000 mcg in 100 mls @ 2.101 mls/hr IVPB TITR [facility]; Protocol Last Admin: 09/02/18 08:32 Dose: 20 mcg/kg/min, 8.403 mls/hr Midazolam HCl 100 mg/ Sodium (Chloride) 100 mls @ 1 mls/hr IVPB TITR [facility]; Protocol Last Admin: 09/01/18 19:43 Dose: Not Given Vasopressin 50 units/ Sodium (Chloride) 100 mls @ 4 mls/hr IVPB ASDIR [facility]; Protocol Last Admin: 09/02/18 06:25 Dose: 2 units/hr, 4 mls/hr Fentanyl 500 mcg/ Sodium (Chloride) 100 mls @ 5 mls/hr IVPB TITR [facility]; Protocol Last Admin: 09/01/18 15:26 Dose: 50 mcg/hr, 10 mls/hr Norepinephrine Bitartrate 8, (000 mcg/ Sodium Chloride) 500 mls @ 18.75 mls/hr IV TITR [facility]; Protocol Last Admin: 09/01/18 19:42 Dose: Not Given Potassium Chloride (Potassium Chloride 10 Meq Premix Ivpb -) 10 meq in 100 mls @ 100 mls/hr IVPB Q60M [facility] Stop: 09/02/18 13:59 Last Admin: 09/02/18 11:00 Dose: 100 mls/hr Pantoprazole Sodium (Protonix Iv) 40 mg IVPUSH DAILY [facility] Last Admin: 09/02/18 11:00 Dose: 40 mg - Objective Vital Signs: Vital Signs Temperature 98.6 F 09/02/18 09:00 Pulse Rate 112 H 09/02/18 12:23 Respiratory Rate 16 09/02/18 12:23 Blood Pressure 94/70 09/02/18 12:23 O2 Sat by Pulse Oximetry (%) 93 L 09/02/18 10:00 Constitutional: Yes: No Distress Eyes: Yes: Conjunctiva Clear Cardiovascular: Yes: Regular Rate and Rhythm, Tachycardia Respiratory: Yes: Mechanically Ventilated Gastrointestinal: Yes: Normal Bowel Sounds, Soft. No: Tenderness Edema: Yes Labs: CBC, BMP 09/02/18 05:30 09/02/18 05:30 INR, PTT INR 1.18 (0.83-1.09) H 09/02/18 05:30 Assessment/Plan SEPSIS MSSA BACTEREMIA ? PNEUMONIA ?ENDOCARDITIS RESPIRATORY FAILURE/ COPD EXACERBATION HCAP RENAL FAILURE MARKED LEUKOCYTOSIS HIV+ CD4 437 CONTINUE NAFCILLIN/ MEROPENEM HEMODYNAMIC/ VENTILATORY SUPPORT CONTINUE ART PROGNOSIS POOR
--- NOTE | 2018-09-02 13:21 | PROC ---
Procedure Note Procedure: Procedure: FOB Under informed consent and bilateral FOB was performed. The patient was sedated and paralyzed with propofol and Rocuronium. The bronchoscope was inserted via the ETT. The emeka was visualized and sharp. There was copious yellow secretions noted at the aperature of the right mainstem bronchus. The airways were suctioned. No endobronchial lesions were noted. The left mainstem was entered. Thin, yellow secretions were noted. The bronchoscope was withdrawan into the ETT and remained in position during the placement of a percutaneous tracheostomy by CTS. The bronchoscope confirmed excellent position of the Percutaneous Trach as well as hemostasis. The bronchoscope was withdrawan from the patient. No complications were noted. CXR to be completed. Dr Suero
--- NOTE | 2018-09-02 14:21 | OPR ---
Patient Name: Natalie Benedict MR#: [id number] Procedure Date: 09/02/2018 Inpatient procedure Date of Admission: 08/08/2018 Preoperative Diagnosis: 1. Hypoxic respiratory failure; 2. CHF; 3. Tricuspid regurgitation; 4. Pulmonary hypertension; 5. CAD s/p CABG; 6. PVD; 7. HIV; 8. Hep C; Postoperative Diagnosis: same. Procedure: 1. Flexible Bronchoscopy (performed by Dr. Suero) 2. Percutaneous tracheostomy. Indication: Respiratory failure; Surgeon(s): Richard Meek MD Cosurgeon: meredith Rate Engineer Surgeon: meredith Anesthesia: local; Findings: Bronchoscopy: secretions in airway; tracheostomy in place without significant bleeding; Specimens Sent: 1. None. Complications: None. Drains / Tubes / Catheters: #8 Shiley Hardware / Implants: na Blood / Fluid Losses: none. Post-Operative Condition: hemodynamically stable. Indications: This patient is a 67 year-old female referred from the ICU team for tracheostomy because of prolonged respiratory failure. An informed consent was obtained by the ICU team for the procedure. All questions were addressed and answered. Details of Procedure: The procedure was done at the bedside. Dr. Suero performed a bronchoscopy after he was given paralysis and prepared and draped. I then injected lidocaine and made a small incision. Blunt dissection was done down to the airway. Next under vision from bronchoscopy, the needle as inserted between the second and third ring. Using Seldinger technique the wire, dilator, Blue Rhino, and finally the tracheostomy were inserted. It was secured with sutures. A completion bronchoscopy showed good position and hemostasis. He tolerated the procedure well. I will follow the patient in the hospital and as an outpatient.
--- NOTE | 2018-09-02 14:54 | PN ---
Physical Exam: SUBJECTIVE: Patient seen and examined HD# 24 Intubation Day Overnight Events: No acute events reported overnight. OBJECTIVE: Vital Signs Period Temp Pulse Resp BP Sys/Buck Pulse Ox Last 24 Hr 97.3 F-98.9 F 112-122 15-37 82-109/51-91 89-94 Intake & Output 09/01/18 09/02/18 09/02/18 22:59 06:59 14:59 Intake Total 1718 960 Output Total 800 150 Balance 918 810 Weight 78.046 kg Intake: IV 378 350 DIPRIVAN - 1,000,000 mcg 120 130 In 100 ml @ 5 MCG/KG/MIN 2.101 mls/hr IVPB TITR [facility] Rx#:[id number] Levophed - 8,000 Mcg In 66 Normal Saline - 492 ml @ 5 MCG/MIN 18.75 mls/hr IV TITR [facility] Rx#:[id number] Pitressin - 50 Units In 48 76 Normal Saline - 97.5 ml @ 2 UNITS/HR 4 mls/hr IVPB ASDIR [facility] Rx#: [id number] Sublimaze Injection - 500 120 120 Mcg In Normal Saline 100 ml Mini Bag 90 ml @ 25 MCG/HR 5 mls/hr IVPB TITR [facility] Rx#:[id number] Versed - 100 mg In Normal 24 24 Saline - 100 ml @ 1 MG/ HR 1 mls/hr IVPB TITR [facility] Rx#:[id number] IVPB 800 300 Tube Feeding 480 200 Tube Irrigant 60 110 Output: Drainage 700 100 Flexiseal 700 100 Urine 100 50 Torres 100 50 Other: Voiding Method Indwelling Catheter Indwelling Catheter Bowel Movement Yes Yes Body Mass Index (BMI) 26.1 Weight Measurement Method Built in [facility] Lines: - R Femoral (Day 3) - L Triple Lumen Dialysis Catheter (Day 7) Drains: - OG - Torres - Rectal tube Supplemental Oxygen: Ventilator: Mode: AC Vent rate: 30 Tv: 370 PEEP: 8 FiO2: 40% Physical Exams: GENERAL: The patient is sedated. No localized withdrawal. HEAD: Normal with no signs of trauma. EYES: Closed. LUNGS: Intubated and mechanically ventilated. Breath sounds equal, with trace rhonchi in right middle lobe. No wheezes or rales. HEART: Tachycardic rate with regular rhythm, S1, S2 without murmur, rub or gallop. ABDOMEN: Soft and nondistended. EXTREMITIES: 2+ pulses, warm, well-perfused. 2+ edema to all extremities U>L. SKIN: Warm and dry. Stage 2 decubitus ulcer with dressing in place. Drips: - Fentanyl - Propofol - Versed - Vasopressin Anti Infectives: - Nafcillin Day 14 (started 19 August 2018) - Meropenem Day 12 (started 21 August 2018) Laboratory Results - last 24 hr 09/02/18 09/02/18 09/02/18 05:30 05:30 05:30 WBC 26.1 H RBC 2.73 L Hgb 8.2 L Hct 23.9 L MCV 87.5 MCH 30.1 MCHC 34.4 RDW 16.8 H Plt Count 226 MPV 8.7 Absolute Neuts (auto) 22.2 H Neutrophils % 85.3 H Neutrophils % (Manual) 94.1 H Band Neutrophils % 2.0 Lymphocytes % 1.1 L Lymphocytes % (Manual) 1.9 L D Monocytes % 13.1 H D Monocytes % (Manual) 2 L Eosinophils % 0.1 D Eosinophils % (Manual) 0.0 Basophils % 0.4 Basophils % (Manual) 0.0 Myelocytes % (Man) 0 Promyelocytes % (Man) 0 Blast Cells % (Manual) 0 Nucleated RBC % 0 Metamyelocytes 0 Hypochromia 0 Platelet Estimate Normal Polychromasia 0 Poikilocytosis 1+ Anisocytosis 1+ Macrocytosis 1+ Target Cells 1+ PT with INR 13.90 H INR 1.18 H PTT (Actin FS) 38.2 H Sodium 129 L Potassium 3.3 L Chloride 92 L Carbon Dioxide 23 Anion Gap 14 BUN 62 H Creatinine 3.4 H Creat Clearance w eGFR 13.47 Random Glucose 181 H Calcium 8.2 L Phosphorus 7.7 H Magnesium 1.9 Active Medications Generic Name Dose Route Start Last Admin Trade Name Freq PRN Reason Stop Dose Admin Abacavir/Dolutegravir/Lamivudine 1 each 08/10/18 14:00 09/02/18 11:00 Triumeq (Non-Formulary) PO Not Given DAILY [facility] Acetaminophen 1,000 mg 08/16/18 16:11 08/27/18 02:28 Tylenol Oral Solution - PO 1,000 mg Q6H PRN Administration FEVER Chlorhexidine Gluconate 15 ml 08/17/18 22:00 09/02/18 11:00 Peridex - MM 15 ml BID [facility] Administration Fludrocortisone Acetate 0.05 mg 08/29/18 13:15 09/02/18 11:00 Florinef - NGT Not Given DAILY [facility] Heparin Sodium (Porcine) 5,000 unit 08/17/18 14:00 09/02/18 05:12 Heparin - SQ Not Given TID [facility] Hydrocortisone Sodium Succinate 100 mg 08/29/18 11:30 09/02/18 11:00 Solu-Cortef - IVPUSH 100 mg Q8H-IV [facility] Administration IV Flush 4 ml 08/23/18 11:37 Triple Lumen Flush IVPUSH PRN PRN Protocol IV Flush 4 ml 08/27/18 22:00 09/01/18 21:11 Triple Lumen Flush IVPUSH Not Given BID [facility] IV Flush 4 ml 09/01/18 14:37 Triple Lumen Flush IVPUSH PRN PRN Protocol Nafcillin Sodium 2 gm/ 100 mls @ 100 mls/hr 08/19/18 20:00 09/02/18 11:00 Dextrose IVPB 100 mls/hr Q4H-IV [facility] Administration Protocol Meropenem 500 mg/ Dextrose 100 mls @ 200 mls/hr 08/24/18 18:00 09/02/18 11:00 IVPB 200 mls/hr Q8H-IV [facility] Administration Propofol 1,000,000 mcg in 100 mls @ 2.101 mls/hr 08/29/18 07:45 09/02/18 08: 32 Diprivan - IVPB 20 mcg/kg/min TITR [facility] 8.403 mls/hr Administration Protocol 5 MCG/KG/MIN Midazolam HCl 100 mg/ Sodium 100 mls @ 1 mls/hr 08/29/18 11:45 09/01/18 19:43 Chloride IVPB Not Given TITR [facility] Protocol 1 MG/HR Vasopressin 50 units/ Sodium 100 mls @ 4 mls/hr 08/29/18 11:45 09/02/18 06:25 Chloride IVPB 2 units/hr ASDIR AL[facility] 4 mls/hr Administration Protocol 2 UNITS/HR Fentanyl 500 mcg/ Sodium 100 mls @ 5 mls/hr 08/30/18 07:15 09/01/18 15:26 Chloride IVPB 50 mcg/hr TITR [facility] 10 mls/hr Administration Protocol 25 MCG/HR Norepinephrine Bitartrate 8, 500 mls @ 18.75 mls/hr 08/31/18 16:45 09/01/18 19:42 000 mcg/ Sodium Chloride IV Not Given TITR [facility] Protocol 5 MCG/MIN Pantoprazole Sodium 40 mg 08/11/18 13:15 09/02/18 11:00 Protonix Iv IVPUSH 40 mg DAILY [facility] Administration ASSESSMENT/PLAN: 67 year old female with HTN, CAD s/p CABG in 2009, PVD with B/L LE stents, HIV, HEP C, COPD and CHF. Admitted to the ICU for Acute hypoxic hypercapnic respiratory failure and dehydration. Neuro: - Currently sedated with Propofol, Fentanyl, and Versed. Will not attempt sedation wean given current respiratory status. - Rocuronium ordered to be bedside during trach as emergency medication. Endocrine: - Consult: Dr. Leach - Cr stabilized. Continue to suspect likely acute tubular necrosis given metabolic acidosis. - Dialysis per renal service. Do not anticipate run today. Likely tomorrow. Will d/c dialysis catheter tomorrow after run. - Hypokalemia noted again on morning labs. Will replenish. - Continue to trend electrolytes. Cardiovascular: - Consult: Dr. Fitzgerald / Dr. Hogan - Goal MAP >65. Continue holding antihypertensives as needed. - Did not require Levophed overnight. - Continue Levophed and Vasopressin; titrate as needed to maintain goal MAP. - Continue Hydrocortisone and Fludicortisone for shock. - LV Diastolic/Systolic Dysfunction - Holding home Clopidogrel given anemia. - Hemoglobin goal >8.0. At goal today. Pulm / Resp: - Acute on Chronic Hypoxic and Hypercapneic Respiratory Failure likely secondary to pneumonia. - Continue albuterol PRN. - CXR this AM unchanged from yesterday. - Continues to require increased ventilatory support. - SPO2 goal 90%. Taper FiO2 as able. - pH goal 7.2, allowing for permissive hypercapnia. - Bedside trach performed today. Gastrointestinal: - Mild diarrhea noted in rectal tube. Possibly secondary to tube feeds. Infectious Disease: - Consult Dr. Khan - h/o HIV: continue HAART Therapy per ID - Leukocytosis trending upward slightly with tachycardia but without fever overnight. - Continue Meropenem and Nafcillin for antibiotic coverage per ID service. Integumentary: - Decubitus ulcer. Dressing changes to be performed by nursing staff. FEN: -Tube Feed per dietary. Will likely need PEG. Prophylaxis: -DVT: Heparin SQ -GI: Pantoprazole Code Status: - DNR Procedures: - Bedside trach today Dispo: Continue to monitor the intubated pt in the ICU. Andrez Tolentino MD, PGY1 ICU Consult Service Visit type - Emergency Visit Emergency Visit: No - New Patient This patient is new to me today: No - Critical Care Critical Care patient: Yes Total Critical Care Time (in minutes): 47 Critical Care Statement: The care of this patient involved high complexity decision making to prevent further life threatening deterioration of the patient 's condition and/or to evaluate & treat vital organ system(s) failure or risk of failure.
--- NOTE | 2018-09-02 15:14 | PN ---
Progress Note, Physician History of Present Illness: Pt seen and examined at bedside. She had a trache placed today. - Current Medication List Current Medications: Active Medications Abacavir/Dolutegravir/Lamivudine (Triumeq (Non-Formulary)) 1 each PO DAILY [facility] Last Admin: 09/02/18 11:00 Dose: Not Given Acetaminophen (Tylenol Oral Solution -) 1,000 mg PO Q6H PRN PRN Reason: FEVER Last Admin: 08/27/18 02:28 Dose: 1,000 mg Chlorhexidine Gluconate (Peridex -) 15 ml MM BID [facility] Last Admin: 09/02/18 11:00 Dose: 15 ml Fludrocortisone Acetate (Florinef -) 0.05 mg NGT DAILY [facility] Last Admin: 09/02/18 11:00 Dose: Not Given Heparin Sodium (Porcine) (Heparin -) 5,000 unit SQ TID [facility] Last Admin: 09/02/18 05:12 Dose: Not Given Hydrocortisone Sodium Succinate (Solu-Cortef -) 100 mg IVPUSH Q8H-IV [facility] Last Admin: 09/02/18 11:00 Dose: 100 mg IV Flush (Triple Lumen Flush) 4 ml IVPUSH PRN PRN PRN Reason: Protocol IV Flush (Triple Lumen Flush) 4 ml IVPUSH BID [facility] Last Admin: 09/01/18 21:11 Dose: Not Given IV Flush (Triple Lumen Flush) 4 ml IVPUSH PRN PRN PRN Reason: Protocol Nafcillin Sodium 2 gm/ (Dextrose) 100 mls @ 100 mls/hr IVPB Q4H-IV AL[facility]; Protocol Last Admin: 09/02/18 11:00 Dose: 100 mls/hr Meropenem 500 mg/ Dextrose 100 mls @ 200 mls/hr IVPB Q8H-IV [facility] Last Admin: 09/02/18 11:00 Dose: 200 mls/hr Propofol (Diprivan -) 1,000,000 mcg in 100 mls @ 2.101 mls/hr IVPB TITR AL[facility]; Protocol Last Admin: 09/02/18 08:32 Dose: 20 mcg/kg/min, 8.403 mls/hr Midazolam HCl 100 mg/ Sodium (Chloride) 100 mls @ 1 mls/hr IVPB TITR AL[facility]; Protocol Last Admin: 09/01/18 19:43 Dose: Not Given Vasopressin 50 units/ Sodium (Chloride) 100 mls @ 4 mls/hr IVPB ASDIR AL[facility]; Protocol Last Admin: 09/02/18 06:25 Dose: 2 units/hr, 4 mls/hr Fentanyl 500 mcg/ Sodium (Chloride) 100 mls @ 5 mls/hr IVPB TITR [facility]; Protocol Last Admin: 09/01/18 15:26 Dose: 50 mcg/hr, 10 mls/hr Norepinephrine Bitartrate 8, (000 mcg/ Sodium Chloride) 500 mls @ 18.75 mls/hr IV TITR ALYSON; Protocol Last Admin: 09/01/18 19:42 Dose: Not Given Pantoprazole Sodium (Protonix Iv) 40 mg IVPUSH DAILY [facility] Last Admin: 09/02/18 11:00 Dose: 40 mg - Objective Vital Signs: Vital Signs Temperature 98.6 F 09/02/18 09:00 Pulse Rate 112 H 09/02/18 12:23 Respiratory Rate 16 09/02/18 12:23 Blood Pressure 94/70 09/02/18 12:23 O2 Sat by Pulse Oximetry (%) 93 L 09/02/18 10:00 Constitutional: Yes: Calm Eyes: Yes: Conjunctiva Clear Neck: Yes: Other (s/p trache) Cardiovascular: Yes: S1, S2 Respiratory: Yes: Mechanically Ventilated Gastrointestinal: Yes: Soft Genitourinary: Yes: Torres Present Edema: Yes Edema: LUE: Trace, RUE: Trace, LLE: Trace, RLE: Trace Neurological: Yes: Lethargy Labs: CBC, BMP 09/02/18 05:30 09/02/18 05:30 INR, PTT INR 1.18 (0.83-1.09) H 09/02/18 05:30 Problem List - Problems (1) Acute renal failure Code(s): N17.9 - ACUTE KIDNEY FAILURE, UNSPECIFIED Qualifiers: Acute renal failure type: unspecified Qualified Code(s): N17.9 - Acute kidney failure, unspecified (2) Altered mental status, unspecified Code(s): R41.82 - ALTERED MENTAL STATUS, UNSPECIFIED Qualifiers: Altered mental status type: somnolence Qualified Code(s): R40.0 - Somnolence (3) CHF (congestive heart failure) Code(s): I50.9 - HEART FAILURE, UNSPECIFIED Qualifiers: Heart failure type: diastolic Heart failure chronicity: chronic Qualified Code(s): I50.32 - Chronic diastolic (congestive) heart failure (4) COPD with acute exacerbation Code(s): J44.1 - CHRONIC OBSTRUCTIVE PULMONARY DISEASE W (ACUTE) EXACERBATION (5) Hyperkalemia Code(s): E87.5 - HYPERKALEMIA Assessment/Plan Current Medications Generic Name Dose Route Start Last Admin Trade Name Freq PRN Reason Stop Dose Admin Abacavir/Dolutegravir/Lamivudine 1 each 08/10/18 14:00 09/02/18 11:00 Triumeq (Non-Formulary) PO Not Given DAILY AL[facility]ON Acetaminophen 1,000 mg 08/16/18 16:11 08/27/18 02:28 Tylenol Oral Solution - PO 1,000 mg Q6H PRN Administration FEVER Chlorhexidine Gluconate 15 ml 08/17/18 22:00 09/02/18 11:00 Peridex - MM 15 ml BID AL[facility] Administration Fludrocortisone Acetate 0.05 mg 08/29/18 13:15 09/02/18 11:00 Florinef - NGT Not Given DAILY [facility] Heparin Sodium (Porcine) 5,000 unit 08/17/18 14:00 09/02/18 05:12 Heparin - SQ Not Given TID [facility] Hydrocortisone Sodium Succinate 100 mg 08/29/18 11:30 09/02/18 11:00 Solu-Cortef - IVPUSH 100 mg Q8H-IV [facility] Administration IV Flush 4 ml 08/23/18 11:37 Triple Lumen Flush IVPUSH PRN PRN Protocol IV Flush 4 ml 08/27/18 22:00 09/01/18 21:11 Triple Lumen Flush IVPUSH Not Given BID AL[facility]ON IV Flush 4 ml 09/01/18 14:37 Triple Lumen Flush IVPUSH PRN PRN Protocol Nafcillin Sodium 2 gm/ 100 mls @ 100 mls/hr 08/19/18 20:00 09/02/18 11:00 Dextrose IVPB 100 mls/hr Q4H-IV [facility] Administration Protocol Meropenem 500 mg/ Dextrose 100 mls @ 200 mls/hr 08/24/18 18:00 09/02/18 11:00 IVPB 200 mls/hr Q8H-IV [facility] Administration Propofol 1,000,000 mcg in 100 mls @ 2.101 mls/hr 08/29/18 07:45 09/02/18 08: 32 Diprivan - IVPB 20 mcg/kg/min TITR [facility] 8.403 mls/hr Administration Protocol 5 MCG/KG/MIN Midazolam HCl 100 mg/ Sodium 100 mls @ 1 mls/hr 08/29/18 11:45 09/01/18 19:43 Chloride IVPB Not Given TITR [facility] Protocol 1 MG/HR Vasopressin 50 units/ Sodium 100 mls @ 4 mls/hr 08/29/18 11:45 09/02/18 06:25 Chloride IVPB 2 units/hr ASDIR AL[facility]ON 4 mls/hr Administration Protocol 2 UNITS/HR Fentanyl 500 mcg/ Sodium 100 mls @ 5 mls/hr 08/30/18 07:15 09/01/18 15:26 Chloride IVPB 50 mcg/hr TITR AL[facility] 10 mls/hr Administration Protocol 25 MCG/HR Norepinephrine Bitartrate 8, 500 mls @ 18.75 mls/hr 08/31/18 16:45 09/01/18 19:42 000 mcg/ Sodium Chloride IV Not Given TITR [facility]ON Protocol 5 MCG/MIN Pantoprazole Sodium 40 mg 08/11/18 13:15 09/02/18 11:00 Protonix Iv IVPUSH 40 mg DAILY [facility] Administration Impression 1. KRISTIAN 2. Hyperkalemia 3. HIV 4. hyponatremia 5. altered mental status 6. pulm HTN 7. htn 8. pvd 9. resp acidosis 10. resp failure requiring intubation Plan - will arrange for HD tomorrow - can d/c sarah after HD tomorrow - cont to monitor urine output - will evaluate daily - discussed with ICU team - vent support
[2018-09-02] MEDS ORDERED: SODIUM CHLORIDE 250 ML IV PRN (15:15)
[2018-09-02] MEDS: TRIPLE LUMEN FLUSH 4 ML ML IVPUSH SCH ×2 (15:42→22:26)
--- NOTE | 2018-09-02 16:49 | PN ---
Progress Note, Physician History of Present Illness: Remains sedated on ventilator support, tracheostomy placed, on vasopressin - Current Medication List Current Medications: Active Medications Abacavir/Dolutegravir/Lamivudine (Triumeq (Non-Formulary)) 1 each PO DAILY [facility] Last Admin: 09/02/18 11:00 Dose: Not Given Acetaminophen (Tylenol Oral Solution -) 1,000 mg PO Q6H PRN PRN Reason: FEVER Last Admin: 08/27/18 02:28 Dose: 1,000 mg Chlorhexidine Gluconate (Peridex -) 15 ml MM BID [facility] Last Admin: 09/02/18 11:00 Dose: 15 ml Fludrocortisone Acetate (Florinef -) 0.05 mg NGT DAILY [facility] Last Admin: 09/02/18 11:00 Dose: Not Given Heparin Sodium (Porcine) (Heparin -) 5,000 unit SQ TID [facility] Last Admin: 09/02/18 15:43 Dose: 5,000 unit Hydrocortisone Sodium Succinate (Solu-Cortef -) 100 mg IVPUSH Q8H-IV [facility] Last Admin: 09/02/18 11:00 Dose: 100 mg IV Flush (Triple Lumen Flush) 4 ml IVPUSH PRN PRN PRN Reason: Protocol IV Flush (Triple Lumen Flush) 4 ml IVPUSH BID [facility] Last Admin: 09/02/18 15:42 Dose: Not Given IV Flush (Triple Lumen Flush) 4 ml IVPUSH PRN PRN PRN Reason: Protocol Nafcillin Sodium 2 gm/ (Dextrose) 100 mls @ 100 mls/hr IVPB Q4H-IV [facility]; Protocol Last Admin: 09/02/18 15:43 Dose: 100 mls/hr Meropenem 500 mg/ Dextrose 100 mls @ 200 mls/hr IVPB Q8H-IV [facility] Last Admin: 09/02/18 11:00 Dose: 200 mls/hr Propofol (Diprivan -) 1,000,000 mcg in 100 mls @ 2.101 mls/hr IVPB TITR AL[facility]; Protocol Last Admin: 09/02/18 08:32 Dose: 20 mcg/kg/min, 8.403 mls/hr Midazolam HCl 100 mg/ Sodium (Chloride) 100 mls @ 1 mls/hr IVPB TITR AL[facility]; Protocol Last Admin: 09/01/18 19:43 Dose: Not Given Vasopressin 50 units/ Sodium (Chloride) 100 mls @ 4 mls/hr IVPB ASDIR [facility]; Protocol Last Admin: 09/02/18 06:25 Dose: 2 units/hr, 4 mls/hr Fentanyl 500 mcg/ Sodium (Chloride) 100 mls @ 5 mls/hr IVPB TITR AL[facility]; Protocol Last Admin: 09/01/18 15:26 Dose: 50 mcg/hr, 10 mls/hr Norepinephrine Bitartrate 8, (000 mcg/ Sodium Chloride) 500 mls @ 18.75 mls/hr IV TITR AL[facility]ON; Protocol Last Admin: 09/01/18 19:42 Dose: Not Given Sodium Chloride (Normal Saline -) 250 mls @ 3,000 mls/hr IV PRN PRN PRN Reason: Hypotension during Dialysis Stop: 09/03/18 15:15 Pantoprazole Sodium (Protonix Iv) 40 mg IVPUSH DAILY [facility] Last Admin: 09/02/18 11:00 Dose: 40 mg - Objective Vital Signs: Vital Signs Temperature 98.6 F 09/02/18 09:00 Pulse Rate 118 H 09/02/18 14:00 Respiratory Rate 31 H 09/02/18 16:04 Blood Pressure 88/68 L 09/02/18 14:00 O2 Sat by Pulse Oximetry (%) 95 09/02/18 16:01 Constitutional: Yes: No Distress, Calm Neck: Yes: Supple Cardiovascular: Yes: Regular Rate and Rhythm Respiratory: Yes: Mechanically Ventilated, Rhonchi Gastrointestinal: Yes: Soft, Hypoactive Bowel Sounds Edema: No Labs: CBC, BMP 09/02/18 05:30 09/02/18 05:30 INR, PTT INR 1.18 (0.83-1.09) H 09/02/18 05:30 - ....Imaging Chest X-ray: Report Reviewed (Stable changes) Problem List - Problems (1) Altered mental status, unspecified Code(s): R41.82 - ALTERED MENTAL STATUS, UNSPECIFIED Qualifiers: Altered mental status type: somnolence Qualified Code(s): R40.0 - Somnolence (2) CHF (congestive heart failure) Code(s): I50.9 - HEART FAILURE, UNSPECIFIED Qualifiers: Heart failure type: diastolic Heart failure chronicity: chronic Qualified Code(s): I50.32 - Chronic diastolic (congestive) heart failure (3) COPD with acute exacerbation Code(s): J44.1 - CHRONIC OBSTRUCTIVE PULMONARY DISEASE W (ACUTE) EXACERBATION (4) Elevated troponin I level Code(s): R74.8 - ABNORMAL LEVELS OF OTHER SERUM ENZYMES (5) Respiratory acidosis Code(s): E87.2 - ACIDOSIS (6) CAD (coronary artery disease) Code(s): I25.10 - ATHSCL HEART DISEASE OF [place] CORONARY ARTERY W/O ANG PCTRS Qualifiers: Coronary Disease-Associated Artery/Lesion type: craig artery [place] vs. transplanted heart: craig heart Associated angina: without angina Qualified Code(s): I25.10 - Atherosclerotic heart disease of [place] coronary artery without angina pectoris (7) Asymptomatic cholelithiasis Code(s): K80.20 - CALCULUS OF GALLBLADDER W/O CHOLECYSTITIS W/O OBSTRUCTION (8) Cor pulmonale, chronic Code(s): I27.81 - COR PULMONALE (CHRONIC) (9) HIV Code(s): Z21 - ASYMPTOMATIC HUMAN IMMUNODEFICIENCY VIRUS INFECTION STATUS (10) HTN (hypertension) Code(s): I10 - ESSENTIAL (PRIMARY) HYPERTENSION Qualifiers: Hypertension type: essential hypertension Qualified Code(s): I10 - Essential (primary) hypertension (11) Hyperlipidemia Code(s): E78.5 - HYPERLIPIDEMIA, UNSPECIFIED Qualifiers: Hyperlipidemia type: pure hypercholesterolemia Qualified Code(s): E78.00 - Pure hypercholesterolemia, unspecified; E78.0 - Pure hypercholesterolemia (12) PVD (peripheral vascular disease) Code(s): I73.9 - PERIPHERAL VASCULAR DISEASE, UNSPECIFIED (13) S/P CABG (coronary artery bypass graft) Code(s): Z95.1 - PRESENCE OF AORTOCORONARY BYPASS GRAFT Assessment/Plan Echo: 07/06/2018 Mod cLVH with preserved LV fxn, mod-severe RITIKA, severe TR, RVSP >60, RV volume overload with mod decreased RV fxn 1. Acute on chronic hypercapneic and hypoxemic respiratory failure on post tracheostomy on mechanical ventilation 2. Acute exacerbation of chronic obstructive pulmonary disease, PNA with MSSA septic shock 3. Right Heart Failure with Severe Pulmonary HTN 4. Acute on chronic class I-II NYHA classification LV failure related to diastolic dysfunction, resolving 5. CAD post CABG with evidence of demand ischemia angina pectoris 6. HTN 7. Hypercholesterolemia 8. PAD post SFA stent 9. Acute on CKD with hyperkalemia referable to hemodynamic alterations and ATN on HD 10. Toxic metabolic encephelopathy, persistent 11. HIV and Hepatitis C 12. Cholelithiasis PLAN: 1. Wean vasopressin to maintain MAP >65 2. Hold Losartan, Carvedilol, Hydralazine pending hemodynamics stability 3. Resume Plavix 75 qd once invasive procedures performed 4. IV stress-dosed steroid and bronchodilator, taper FiO2, PEEP to keep SpO2 >90 %, replete K 5. Antibiotic course per C&S 6. Overall poor prognosis, plan for PEG insertion 7. Enteral feeds, DVT/GI prophylaxis 9. HD per renal
[2018-09-02] MEDS: NOREPINEPHRINE BITARTRATE 8,000 MCG in SODIUM CHLORIDE 492 ML IV SCH (17:52)
[2018-09-02] MEDS ORDERED: MIDAZOLAM 100 MG/100 ML MG IVPB ONE (18:51)
[2018-09-02] MEDS: FENTANYL INJECTION 500 MCG in SODIUM CHLORIDE 90 ML IVPB SCH (21:00)
[2018-09-02] MEDS: MIDAZOLAM 100 MG in SODIUM CHLORIDE 100 ML IVPB SCH (21:01)
[2018-09-02] MEDS ORDERED: VASOPRESSIN 20 UNITS/ML VIAL IV ONE (22:54)
[2018-09-03] MEDS: MEROPENEM 500 MG in DEXTROSE 5%-WATER 100 ML IVPB SCH ×3 (02:17→17:29)
[2018-09-03] MEDS: HYDROCORTISONE SOD SUCCINATE 100 MG/2 ML VIAL IVPUSH SCH ×3 (02:17→17:29)
[2018-09-03] MEDS: NAFCILLIN - 2 GM in DEXTROSE 5%-WATER - 100 ML IVPB SCH ×6 (02:52→22:58)
[2018-09-03] MEDS ORDERED: PT OWN MED DRAWER 7, Y5N ONE ×6 (05:20→22:58)
[2018-09-03] MEDS: HEPARIN NA (PORCINE) 5,000 UNITS/ML 1ML VIAL SQ SCH ×3 (05:21→22:58)
[2018-09-03] MEDS: BANATROL PLUS POWDER PACKET PO SCH ×3 (05:22→22:58)
[2018-09-03 06:50] LABS: ANION GAP 15 MMOL/L (8-16); BLOOD UREA NITROGEN 65 mg/dL (7-18); CALCIUM 7.9 mg/dL (8.5-10.1); CHLORIDE 92 mmol/L (98-107); CO2 19 mmol/L (21-32); CREATININE 3.5 mg/dL (0.55-1.3); GLUCOSE,RANDOM 132 mg/dL (74-106); MAGNESIUM 1.9 mg/dL (1.8-2.4); POTASSIUM 3.4 mmol/L (3.5-5.1); SODIUM 127 mmol/L (136-145)
[2018-09-03 06:58] LABS: HEMATOCRIT 22.7 % (32.4-45.2); HEMOGLOBIN 7.8 GM/dL (10.7-15.3); MCH 30.3 pg (25.7-33.7); MCHC 34.3 g/dl (32.0-36.0); MEAN CELL VOLUME 88.4 fl (80-96); MEAN PLT VOLUME 9.1 fl (7.5-11.1); PLATELET COUNT 200 K/MM3 (134-434); RBC 2.57 M/mm3 (3.60-5.2); RDW 16.7 % (11.6-15.6); WHITE BLOOD COUNT 29.9 K/mm3 (4.0-10.0)
[2018-09-03] MEDS: PROPOFOL 1,000,000 MCG/100 ML VIAL IVPB SCH (09:11)
[2018-09-03] MEDS: PANTOPRAZOLE SODIUM 40 MG VIAL IVPUSH SCH (09:13)
[2018-09-03] MEDS: CHLORHEXIDINE GLUCONATE 0.12% 15ML CUP MM SCH ×2 (09:13→22:56)
[2018-09-03] MEDS: TRIPLE LUMEN FLUSH 4 ML ML IVPUSH SCH ×2 (09:13→22:57)
--- NOTE | 2018-09-03 09:49 | PN ---
Teaching Attending Note Name of Resident: Andrez Tolentino ATTENDING PHYSICIAN STATEMENT I saw and evaluated the patient. I reviewed the resident's note and discussed the case with the resident. I agree with the resident's findings and plan as documented. SUBJECTIVE: Patient seen and examined in the ICU. S/P trach yesterday. Sedated. AC Mode of vent, 60% FiO2. Remains off levophed drip but remains on Vasopressin @ 3 units for hemodynamic support. HD Access not functioning. No clear indication for HD today but will D/W Renal. OBJECTIVE: Intake & Output 08/31/18 09/01/18 09/02/18 09/03/18 23:59 23:59 23:59 23:59 Intake Total 2204.2 2620.9 2138.4 690 Output Total 200 800 150 20 Balance 2004.2 1820.9 1988.4 670 Weight 168 lb 5 oz 172 lb 1 oz 172 lb 1 oz 173 lb 6.4 oz Last Vital Signs Temp Pulse Resp BP Pulse Ox 97.5 F L 119 H 30 H 88/66 L 100 09/03/18 06:00 09/03/18 06:00 09/03/18 09:40 09/03/18 06:00 09/02/18 22:00 Active Medications Abacavir/Dolutegravir/Lamivudine (Triumeq (Non-Formulary)) 1 each PO DAILY [facility] Last Admin: 09/02/18 11:00 Dose: Not Given Acetaminophen (Tylenol Oral Solution -) 1,000 mg PO Q6H PRN PRN Reason: FEVER Last Admin: 08/27/18 02:28 Dose: 1,000 mg Chlorhexidine Gluconate (Peridex -) 15 ml MM BID [facility] Last Admin: 09/03/18 09:13 Dose: 15 ml Fludrocortisone Acetate (Florinef -) 0.05 mg NGT DAILY [facility] Last Admin: 09/02/18 11:00 Dose: Not Given Heparin Sodium (Porcine) (Heparin -) 5,000 unit SQ TID [facility] Last Admin: 09/03/18 05:21 Dose: 5,000 unit Hydrocortisone Sodium Succinate (Solu-Cortef -) 100 mg IVPUSH Q8H-IV [facility] Last Admin: 09/03/18 09:13 Dose: 100 mg IV Flush (Triple Lumen Flush) 4 ml IVPUSH PRN PRN PRN Reason: Protocol IV Flush (Triple Lumen Flush) 4 ml IVPUSH BID [facility] Last Admin: 09/03/18 09:13 Dose: Not Given IV Flush (Triple Lumen Flush) 4 ml IVPUSH PRN PRN PRN Reason: Protocol Nafcillin Sodium 2 gm/ (Dextrose) 100 mls @ 100 mls/hr IVPB Q4H-IV [facility]; Protocol Last Admin: 09/03/18 05:21 Dose: 100 mls/hr Meropenem 500 mg/ Dextrose 100 mls @ 200 mls/hr IVPB Q8H-IV [facility] Last Admin: 09/03/18 09:12 Dose: 200 mls/hr Propofol (Diprivan -) 1,000,000 mcg in 100 mls @ 2.101 mls/hr IVPB TITR [facility]; Protocol Last Admin: 09/03/18 09:11 Dose: 30 mcg/kg/min, 12.604 mls/hr Midazolam HCl 100 mg/ Sodium (Chloride) 100 mls @ 1 mls/hr IVPB TITR [facility]; Protocol Last Admin: 09/02/18 21:01 Dose: Not Given Vasopressin 50 units/ Sodium (Chloride) 100 mls @ 4 mls/hr IVPB ASDIR [facility]; Protocol Last Admin: 09/02/18 21:01 Dose: Not Given Fentanyl 500 mcg/ Sodium (Chloride) 100 mls @ 5 mls/hr IVPB TITR [facility]; Protocol Last Admin: 09/02/18 21:00 Dose: Not Given Norepinephrine Bitartrate 8, (000 mcg/ Sodium Chloride) 500 mls @ 18.75 mls/hr IV TITR [facility]; Protocol Last Admin: 09/02/18 17:52 Dose: Not Given Sodium Chloride (Normal Saline -) 250 mls @ 3,000 mls/hr IV PRN PRN PRN Reason: Hypotension during Dialysis Stop: 09/03/18 15:15 Potassium Chloride (Potassium Chloride 10 Meq Premix Ivpb -) 10 meq in 100 mls @ 100 mls/hr IVPB Q60M [facility] Stop: 09/03/18 10:59 Pantoprazole Sodium (Protonix Iv) 40 mg IVPUSH DAILY [facility] Last Admin: 09/03/18 09:13 Dose: 40 mg Gen: Trached, sedated Heart: RRR Lung: bilateral rhonchi Abd: soft, nontender Ext: + edema Laboratory Results - last 24 hr 08/28/18 09/02/18 09/03/18 08:00 05:30 05:30 WBC 29.9 H RBC 2.57 L Hgb 7.8 L Hct 22.7 L MCV 88.4 MCH 30.3 MCHC 34.3 RDW 16.7 H Plt Count 200 MPV 9.1 Neutrophils % (Manual) 94.1 H Band Neutrophils % 2.0 Lymphocytes % (Manual) 1.9 L D Monocytes % (Manual) 2 L Eosinophils % (Manual) 0.0 Basophils % (Manual) 0.0 Myelocytes % (Man) 0 Promyelocytes % (Man) 0 Blast Cells % (Manual) 0 Metamyelocytes 0 Hypochromia 0 Platelet Estimate Normal Polychromasia 0 Poikilocytosis 1+ Anisocytosis 1+ Macrocytosis 1+ Target Cells 1+ Sodium Potassium Chloride Carbon Dioxide Anion Gap BUN Creatinine Creat Clearance w eGFR Random Glucose Calcium Phosphorus Magnesium Blood Type O POSITIVE Antibody Screen Negative Crossmatch See Detail 09/03/18 05:30 WBC RBC Hgb Hct MCV MCH MCHC RDW Plt Count MPV Neutrophils % (Manual) Band Neutrophils % Lymphocytes % (Manual) Monocytes % (Manual) Eosinophils % (Manual) Basophils % (Manual) Myelocytes % (Man) Promyelocytes % (Man) Blast Cells % (Manual) Metamyelocytes Hypochromia Platelet Estimate Polychromasia Poikilocytosis Anisocytosis Macrocytosis Target Cells Sodium 127 L Potassium 3.4 L Chloride 92 L Carbon Dioxide 19 L Anion Gap 15 BUN 65 H Creatinine 3.5 H Creat Clearance w eGFR 13.03 Random Glucose 132 H Calcium 7.9 L Phosphorus 8.0 H Magnesium 1.9 Blood Type Antibody Screen Crossmatch ASSESSMENT AND PLAN: Acute on Chronic Hypoxic and Hypercapneic Respiratory Failure S/P Trach 09/02/2018 Acute COPD Exacerbation ARF Pneumonia Septic Shock Acute Kidney Injury Metabolic and Respiratory Acidosis Pulmonary HTN LV Diastolic Dysfunction CAD s/p CABG +Troponins likely Demand Ischemia PAD HIV Hep C HTN Hypercholesterolemia - Sedation vacation - Wean Vasopressin - Hydrocortisone, & Fludrocortisone for shock - Remove HD access - continue antibiotics per ID - monitor urine output, creatinine - inhaled bronchodilators - taper FiO2, PEEP to keep SpO2 >90% - low tidal ventilation <6cc/kg/IBW, keep Plat <30 - Enteral feeds. Will need PEG. - DVT/GI prophylaxis - continue ICU monitoring - Patient is DNR Dr Suero Critical care time spent in reviewing chart, evaluating patient and formulating plan 35 min
[2018-09-03] MEDS: ABACAVIR/DOLUTEGRAVIR/LAMIVUDI (TRIUMEQ) TABLET -NF PO SCH (11:04)
[2018-09-03] MEDS: FLUDROCORTISONE ACETATE 0.1 MG TABLET (FP) NGT SCH (11:04)
[2018-09-03] MEDS: KCL 10 MEQ IVPB 10 MEQ/100 ML INFUS.BAG IVPB SCH ×3 (11:13→17:30)
--- NOTE | 2018-09-03 13:00 | PN ---
Physical Exam: SUBJECTIVE: Patient seen and examined HD# 26 Overnight Events: No acute events reported overnight. Bedside trach placed yesterday without complication. OBJECTIVE: Vital Signs Period Temp Pulse Resp BP Sys/Buck Pulse Ox Last 24 Hr 97.4 F-98.4 F 110-120 16-31 79-113/52-85 95-100 Intake & Output 09/02/18 09/03/18 09/03/18 23:59 07:59 15:59 Intake Total 1128.4 690 Output Total 20 Balance 1128.4 670 Weight 78.653 kg Intake: IV 278.4 290 DIPRIVAN - 1,000,000 mcg 86.4 98 In 100 ml @ 5 MCG/KG/MIN 2.101 mls/hr IVPB TITR [facility] Rx#:[id number] Pitressin - 50 Units In 48 48 Normal Saline - 97.5 ml @ 2 UNITS/HR 4 mls/hr IVPB ASDIR [facility] Rx#: [id number] Sublimaze Injection - 500 120 120 Mcg In Normal Saline 100 ml Mini Bag 90 ml @ 25 MCG/HR 5 mls/hr IVPB TITR [facility] Rx#:[id number] Versed - 100 mg In Normal 24 24 Saline - 100 ml @ 1 MG/ HR 1 mls/hr IVPB TITR [facility] Rx#:[id number] IVPB 800 400 Tube Irrigant 50 Output: Urine 20 Torres 20 Other: Voiding Method Indwelling Catheter Indwelling Catheter Bowel Movement Yes Weight Measurement Method Built in [facility] Lines: - R IJ (Day 3) - L Triple Lumen Dialysis Catheter (Day 8) Drains: - NG - Torres - Rectal tube Supplemental Oxygen: Ventilator: Mode: AC Vent rate: 30 Tv: 370 PEEP: 8 FiO2: 60% Physical Exams: GENERAL: The patient is sedated. No localized withdrawal. HEAD: Normal with no signs of trauma. EYES: Closed. LUNGS: Trached and mechanically ventilated. Breath sounds equal, with trace rhonchi in right middle lobe. No wheezes or rales. HEART: Tachycardic rate with regular rhythm, S1, S2 without murmur, rub or gallop. ABDOMEN: Soft and nondistended. EXTREMITIES: 2+ pulses, warm, well-perfused. 2+ edema to all extremities. SKIN: Warm and dry. Decubitus ulcer worse appearing today. Drips: - Fentanyl - Propofol - Versed - Vasopressin Anti Infectives: - Nafcillin Day 15 (started 19 August 2018) - Meropenem Day 13 (started 21 August 2018) Laboratory Results - last 24 hr 08/28/18 09/03/18 09/03/18 08:00 05:30 05:30 WBC 29.9 H RBC 2.57 L Hgb 7.8 L Hct 22.7 L MCV 88.4 MCH 30.3 MCHC 34.3 RDW 16.7 H Plt Count 200 MPV 9.1 Sodium 127 L Potassium 3.4 L Chloride 92 L Carbon Dioxide 19 L Anion Gap 15 BUN 65 H Creatinine 3.5 H Creat Clearance w eGFR 13.03 Random Glucose 132 H Calcium 7.9 L Phosphorus 8.0 H Magnesium 1.9 Blood Type O POSITIVE Antibody Screen Negative Crossmatch See Detail Active Medications Generic Name Dose Route Start Last Admin Trade Name Freq PRN Reason Stop Dose Admin Abacavir/Dolutegravir/Lamivudine 1 each 08/10/18 14:00 09/03/18 11:04 Triumeq (Non-Formulary) PO 1 each DAILY [facility] Administration Acetaminophen 1,000 mg 08/16/18 16:11 08/27/18 02:28 Tylenol Oral Solution - PO 1,000 mg Q6H PRN Administration FEVER Chlorhexidine Gluconate 15 ml 08/17/18 22:00 09/03/18 09:13 Peridex - MM 15 ml BID [facility] Administration Clopidogrel Bisulfate 75 mg 09/04/18 10:00 Plavix - PO DAILY [facility] Fludrocortisone Acetate 0.05 mg 08/29/18 13:15 09/03/18 11:04 Florinef - NGT 0.05 mg DAILY [facility] Administration Heparin Sodium (Porcine) 5,000 unit 08/17/18 14:00 09/03/18 05:21 Heparin - SQ 5,000 unit TID [facility] Administration Hydrocortisone Sodium Succinate 100 mg 08/29/18 11:30 09/03/18 09:13 Solu-Cortef - IVPUSH 100 mg Q8H-IV [facility] Administration IV Flush 4 ml 08/23/18 11:37 Triple Lumen Flush IVPUSH PRN PRN Protocol IV Flush 4 ml 08/27/18 22:00 09/03/18 09:13 Triple Lumen Flush IVPUSH Not Given BID [facility] IV Flush 4 ml 09/01/18 14:37 Triple Lumen Flush IVPUSH PRN PRN Protocol Nafcillin Sodium 2 gm/ 100 mls @ 100 mls/hr 08/19/18 20:00 09/03/18 11:13 Dextrose IVPB 100 mls/hr Q4H-IV [facility] Administration Protocol Meropenem 500 mg/ Dextrose 100 mls @ 200 mls/hr 08/24/18 18:00 09/03/18 09:12 IVPB 200 mls/hr Q8H-IV [facility] Administration Vasopressin 50 units/ Sodium 100 mls @ 4 mls/hr 08/29/18 11:45 09/02/18 21:01 Chloride IVPB Not Given ASDIR [facility] Protocol 2 UNITS/HR Norepinephrine Bitartrate 8, 500 mls @ 18.75 mls/hr 08/31/18 16:45 09/02/18 17:52 000 mcg/ Sodium Chloride IV Not Given TITR [facility] Protocol 5 MCG/MIN Sodium Chloride 250 mls @ 3,000 mls/hr 09/02/18 15:15 Normal Saline - IV 09/03/18 15:15 PRN PRN Hypotension during Dialysis Ranitidine HCl 150 mg 09/03/18 22:00 Zantac Oral Solution - NGT BID [facility] ASSESSMENT/PLAN: 67 year old female with HTN, CAD s/p CABG in 2009, PVD with B/L LE stents, HIV, HEP C, COPD and CHF. Admitted to the ICU for Acute hypoxic hypercapnic respiratory failure and dehydration. Neuro: - Currently sedated with Propofol, Fentanyl, and Versed. Will discontinue sedation now that the trach is in place. - Will assess mental status after sedation has washed out. Endocrine: - Consult: Dr. Leach - Cr stabilized. Continue to suspect likely acute tubular necrosis given metabolic acidosis. - Dialysis scheduled for today but dialysis nurse unable to use port. Will discuss need for dialysis with nephrology service. Will remove dialysis catheter and replace only if needed. - Hypokalemia noted again on morning labs. Will replenish. - Calcium corrects using albumin on last CMP. - Continue to trend electrolytes. Cardiovascular: - Consult: Dr. Fitzgerald / Dr. Hogan - Goal MAP >65. Continue holding antihypertensives as needed. - Did not require Levophed overnight. - Attempt to wean all pressors today, but if needed, continue Levophed and Vasopressin; titrate as needed to maintain goal MAP. - Continue Hydrocortisone and Fludicortisone for shock. Plan to wean after pt has been stable off pressors for 24 hours. - LV Diastolic/Systolic Dysfunction - Per Dr. Fitzgerald, resume Clopidogrel (Plavix). Will transition GI prophylaxis from Pantoprazole to Ranitidine given interaction. - Hemoglobin goal >8.0. Just below goal. Will made transfusion decision after discussing dialysis with nephrology team. Pulm / Resp: - Acute on Chronic Hypoxic and Hypercapneic Respiratory Failure likely secondary to pneumonia. - Continue albuterol PRN. - CXR this AM unchanged from pulmonary pathology standpoint from yesterday. Intubation tube removed and trach collar in place. - SPO2 goal 90%. Taper FiO2 and PEEP as able. - pH goal 7.2, allowing for permissive hypercapnia. Gastrointestinal: - Mild diarrhea noted in rectal tube. Possibly secondary to tube feeds. Infectious Disease: - Consult Dr. Khan - h/o HIV: continue HAART Therapy per ID - Leukocytosis trending upward slightly with tachycardia but without fever overnight. - Continue Meropenem for pseudomonas in sputum and Nafcillin for MSSA in single blood culture per ID service. Integumentary: - Decubitus ulcer worse appearing today. Will consult general surgery for further evaluation. FEN: -Tube Feed per dietary. Plan for PEG placement after this weekend. Prophylaxis: -DVT: Heparin SQ -GI: Pantoprazole. Transition to Ranitidine. Code Status: - DNR Dispo: Continue to monitor in the ICU as pt continues to require pressor support. Andrez Tolentino MD, PGY1 ICU Consult Service Visit type - Emergency Visit Emergency Visit: No - New Patient This patient is new to me today: No - Critical Care Critical Care patient: Yes Total Critical Care Time (in minutes): 45 Critical Care Statement: The care of this patient involved high complexity decision making to prevent further life threatening deterioration of the patient 's condition and/or to evaluate & treat vital organ system(s) failure or risk of failure.
--- NOTE | 2018-09-03 13:01 | PN ---
Progress Note (short form) - Note Progress Note: covering dr bowser discussed with housestaff unable to dialyze today- catheter malfunction remains hypotensive on pressors oliguric Problems 1. KRISTIAN 2. Hyperkalemia 3. HIV 4. hyponatremia 5. altered mental status 6. pulm HTN 7. htn 8. pvd 9. resp acidosis 10. resp failure requiring intubation Current Medications Abacavir/Dolutegravir/Lamivudine (Triumeq (Non-Formulary)) 1 each PO DAILY [facility] Last Admin: 09/03/18 11:04 Dose: 1 each Acetaminophen (Tylenol Oral Solution -) 1,000 mg PO Q6H PRN PRN Reason: FEVER Last Admin: 08/27/18 02:28 Dose: 1,000 mg Chlorhexidine Gluconate (Peridex -) 15 ml MM BID [facility] Last Admin: 09/03/18 09:13 Dose: 15 ml Clopidogrel Bisulfate (Plavix -) 75 mg PO DAILY [facility] Fludrocortisone Acetate (Florinef -) 0.05 mg NGT DAILY [facility] Last Admin: 09/03/18 11:04 Dose: 0.05 mg Heparin Sodium (Porcine) (Heparin -) 5,000 unit SQ TID [facility] Last Admin: 09/03/18 05:21 Dose: 5,000 unit Hydrocortisone Sodium Succinate (Solu-Cortef -) 100 mg IVPUSH Q8H-IV [facility] Last Admin: 09/03/18 09:13 Dose: 100 mg IV Flush (Triple Lumen Flush) 4 ml IVPUSH PRN PRN PRN Reason: Protocol IV Flush (Triple Lumen Flush) 4 ml IVPUSH BID [facility] Last Admin: 09/03/18 09:13 Dose: Not Given IV Flush (Triple Lumen Flush) 4 ml IVPUSH PRN PRN PRN Reason: Protocol Nafcillin Sodium 2 gm/ (Dextrose) 100 mls @ 100 mls/hr IVPB Q4H-IV [facility]; Protocol Last Admin: 09/03/18 11:13 Dose: 100 mls/hr Meropenem 500 mg/ Dextrose 100 mls @ 200 mls/hr IVPB Q8H-IV [facility] Last Admin: 09/03/18 09:12 Dose: 200 mls/hr Vasopressin 50 units/ Sodium (Chloride) 100 mls @ 4 mls/hr IVPB ASDIR [facility]; Protocol Last Admin: 09/02/18 21:01 Dose: Not Given Norepinephrine Bitartrate 8, (000 mcg/ Sodium Chloride) 500 mls @ 18.75 mls/hr IV TITR [facility]; Protocol Last Admin: 09/02/18 17:52 Dose: Not Given Sodium Chloride (Normal Saline -) 250 mls @ 3,000 mls/hr IV PRN PRN PRN Reason: Hypotension during Dialysis Stop: 09/03/18 15:15 Ranitidine HCl (Zantac Oral Solution -) 150 mg NGT BID [facility] Last Vital Signs Temp Pulse Resp BP Pulse Ox 97.5 F L 118 H 30 H 92/67 96 09/03/18 06:00 09/03/18 12:00 09/03/18 12:00 09/03/18 12:00 09/03/18 10:00 on vent sedated/unresponsive CBC, BMP 09/03/18 05:30 09/03/18 05:30 IMP Prerenal azotemia Hyponatremia Hypokalemia anemia leukocytosis Acute on Chronic Hypoxic and Hypercapneic Respiratory Failure/Acute COPD Exacerbation S/P Trach 09/02/2018 Plan- i expect she will need hd again no indication for hd today or anticipated tomorrow
--- NOTE | 2018-09-03 13:19 | PN ---
Progress Note, Physician History of Present Illness: Remains sedated on ventilator support, tracheostomy placed, weaning off vasopressin - Current Medication List Current Medications: Active Medications Abacavir/Dolutegravir/Lamivudine (Triumeq (Non-Formulary)) 1 each PO DAILY [facility] Last Admin: 09/03/18 11:04 Dose: 1 each Acetaminophen (Tylenol Oral Solution -) 1,000 mg PO Q6H PRN PRN Reason: FEVER Last Admin: 08/27/18 02:28 Dose: 1,000 mg Chlorhexidine Gluconate (Peridex -) 15 ml MM BID [facility] Last Admin: 09/03/18 09:13 Dose: 15 ml Clopidogrel Bisulfate (Plavix -) 75 mg PO DAILY [facility] Fludrocortisone Acetate (Florinef -) 0.05 mg NGT DAILY [facility] Last Admin: 09/03/18 11:04 Dose: 0.05 mg Heparin Sodium (Porcine) (Heparin -) 5,000 unit SQ TID [facility] Last Admin: 09/03/18 05:21 Dose: 5,000 unit Hydrocortisone Sodium Succinate (Solu-Cortef -) 100 mg IVPUSH Q8H-IV [facility] Last Admin: 09/03/18 09:13 Dose: 100 mg IV Flush (Triple Lumen Flush) 4 ml IVPUSH PRN PRN PRN Reason: Protocol IV Flush (Triple Lumen Flush) 4 ml IVPUSH BID [facility] Last Admin: 09/03/18 09:13 Dose: Not Given IV Flush (Triple Lumen Flush) 4 ml IVPUSH PRN PRN PRN Reason: Protocol Nafcillin Sodium 2 gm/ (Dextrose) 100 mls @ 100 mls/hr IVPB Q4H-IV [facility]; Protocol Last Admin: 09/03/18 11:13 Dose: 100 mls/hr Meropenem 500 mg/ Dextrose 100 mls @ 200 mls/hr IVPB Q8H-IV [facility] Last Admin: 09/03/18 09:12 Dose: 200 mls/hr Vasopressin 50 units/ Sodium (Chloride) 100 mls @ 4 mls/hr IVPB ASDIR [facility]; Protocol Last Admin: 09/02/18 21:01 Dose: Not Given Norepinephrine Bitartrate 8, (000 mcg/ Sodium Chloride) 500 mls @ 18.75 mls/hr IV TITR [facility]; Protocol Last Admin: 09/02/18 17:52 Dose: Not Given Sodium Chloride (Normal Saline -) 250 mls @ 3,000 mls/hr IV PRN PRN PRN Reason: Hypotension during Dialysis Stop: 09/03/18 15:15 Ranitidine HCl (Zantac Oral Solution -) 150 mg NGT BID [facility] - Objective Vital Signs: Vital Signs Temperature 97.5 F L 09/03/18 06:00 Pulse Rate 118 H 09/03/18 12:00 Respiratory Rate 30 H 09/03/18 12:00 Blood Pressure 92/67 09/03/18 12:00 O2 Sat by Pulse Oximetry (%) 96 09/03/18 10:00 Constitutional: Yes: No Distress, Calm Neck: Yes: Supple, Other (Tracheostomy) Cardiovascular: Yes: Tachycardia Respiratory: Yes: Mechanically Ventilated Gastrointestinal: Yes: Normal Bowel Sounds, Soft Edema: Yes Edema: LLE: Trace, RLE: Trace Labs: CBC, BMP 09/03/18 05:30 09/03/18 05:30 INR, PTT INR 1.18 (0.83-1.09) H 09/02/18 05:30 - ....Imaging Chest X-ray: Report Reviewed (Unchanged) Problem List - Problems (1) Altered mental status, unspecified Code(s): R41.82 - ALTERED MENTAL STATUS, UNSPECIFIED Qualifiers: Altered mental status type: somnolence Qualified Code(s): R40.0 - Somnolence (2) CHF (congestive heart failure) Code(s): I50.9 - HEART FAILURE, UNSPECIFIED Qualifiers: Heart failure type: diastolic Heart failure chronicity: chronic Qualified Code(s): I50.32 - Chronic diastolic (congestive) heart failure (3) COPD with acute exacerbation Code(s): J44.1 - CHRONIC OBSTRUCTIVE PULMONARY DISEASE W (ACUTE) EXACERBATION (4) Elevated troponin I level Code(s): R74.8 - ABNORMAL LEVELS OF OTHER SERUM ENZYMES (5) Respiratory acidosis Code(s): E87.2 - ACIDOSIS (6) CAD (coronary artery disease) Code(s): I25.10 - ATHSCL HEART DISEASE OF [place] CORONARY ARTERY W/O ANG PCTRS Qualifiers: Coronary Disease-Associated Artery/Lesion type: [place] artery [place] vs. transplanted heart: [place] heart Associated angina: without angina Qualified Code(s): I25.10 - Atherosclerotic heart disease of [place] coronary artery without angina pectoris (7) Asymptomatic cholelithiasis Code(s): K80.20 - CALCULUS OF GALLBLADDER W/O CHOLECYSTITIS W/O OBSTRUCTION (8) Cor pulmonale, chronic Code(s): I27.81 - COR PULMONALE (CHRONIC) (9) HIV Code(s): Z21 - ASYMPTOMATIC HUMAN IMMUNODEFICIENCY VIRUS INFECTION STATUS (10) HTN (hypertension) Code(s): I10 - ESSENTIAL (PRIMARY) HYPERTENSION Qualifiers: Hypertension type: essential hypertension Qualified Code(s): I10 - Essential (primary) hypertension (11) Hyperlipidemia Code(s): E78.5 - HYPERLIPIDEMIA, UNSPECIFIED Qualifiers: Hyperlipidemia type: pure hypercholesterolemia Qualified Code(s): E78.00 - Pure hypercholesterolemia, unspecified; E78.0 - Pure hypercholesterolemia (12) PVD (peripheral vascular disease) Code(s): I73.9 - PERIPHERAL VASCULAR DISEASE, UNSPECIFIED (13) S/P CABG (coronary artery bypass graft) Code(s): Z95.1 - PRESENCE OF AORTOCORONARY BYPASS GRAFT Assessment/Plan Echo: 07/06/2018 Mod cLVH with preserved LV fxn, mod-severe RITIKA, severe TR, RVSP >60, RV volume overload with mod decreased RV fxn 1. Acute on chronic hypercapneic and hypoxemic respiratory failure on post tracheostomy on mechanical ventilation 2. Acute exacerbation of chronic obstructive pulmonary disease, PNA with MSSA septic shock 3. Right Heart Failure with Severe Pulmonary HTN 4. Acute on chronic class I-II NYHA classification LV failure related to diastolic dysfunction, resolving 5. CAD post CABG with evidence of demand ischemia angina pectoris 6. HTN 7. Hypercholesterolemia 8. PAD post SFA stent 9. Acute on CKD with hyperkalemia referable to hemodynamic alterations and ATN on HD 10. Toxic metabolic encephelopathy, persistent 11. HIV and Hepatitis C 12. Cholelithiasis PLAN: 1. Wean vasopressin to maintain MAP >65 2. Hold Losartan, Carvedilol, Hydralazine pending hemodynamics stability 3. Resume Plavix 75 qd once invasive procedures performed 4. IV stress-dosed steroid and bronchodilator, taper FiO2, PEEP to keep SpO2 >90 %, replete K 5. Antibiotic course per C&S 6. Overall poor prognosis, plan for PEG insertion 7. Enteral feeds, DVT/GI prophylaxis 8. HD per renal, transfuse pRBC to maintain Hgb>8.0
--- NOTE | 2018-09-03 15:25 | CONSULT ---
Consult Consult Specialty:: General Surgery Referred by:: Dr. Parks Reason for Consultation:: anorectal/sacrococcygeal decubitus - History of Present Illness Chief Complaint: pt cannot offer History of Present Illness: 67yo F with multiple medical problems, including HTN, HLD, asthma/COPD, CHF, PVD on asa/plavix prior to admission, HIV (undetectable viral load recently), HepC s/p tx, cervical CA s/p radiation, s/p CABG and LE stents, who has been hospitalized for the last 4 weeks, initially admitted from [place] [facility] after previous hospitalization for CHF exacerbation, with complaints of poor po intake and altered mental status. She was intubated within days of admission, and has been in the ICU. She also had acute renal failure, and cultures have been positive from sputum, blood and urine (yeast last 2 times) for Staph aureus , Pseudomonas, Serratia; she is on antibiotics per ID. She had been on norepinephrine and vasopressin for pressure support, which are now being weaned off. She had tracheostomy done yesterday. She has been getting tube feeds via NGT. She has Torres in place with oliguria, and had been dialyzed by renal. She also has a rectal tube with diarrheal output and constant leakage around it. Over the course of her stay, she has developed stage 2 anorectal/perineal and local skin breakdown/erosion, and nursing also noted blackening skin over the sacrococcygeal region. They have been using Allevyn foam dressing over the sacrococcygeal area, but have had great difficulty controlling liquid stool leakage around the Flexiseal recently. Sedation has been held today, and she is currently only on low-dose propofol drip. Surgery is asked to assess the decubiti. She is seen and examined in the ICU with nursing staff. There is no family present. History is entirely from the chart, as the patient has open eyes and responds only to painful stimuli but cannot answer any questions. - History Source History Provided By: Medical Record (exclusively) Limitations to Obtaining History: Clinical Condition - Past Medical History Cardio/Vascular: Yes: CAD, CHF, HTN, Hyperlipdemia, Pulmonary Hypertension, Other (PVD, severe TR) Pulmonary: Yes: Asthma, COPD, O2 Dependent (was 2L [employer]) Hepatobiliary: Yes: Cholelithiasis, Hepatitis C (s/p treatment) Renal/: Yes: Renal Failure Reproductive: Yes: Postmenopausal Heme/Onc: Yes: Cancer (cervical - s/p radiation tx) Infectious Disease: Yes: HIV - Past Surgical History Past Surgical History: Yes: CABG, Stent (b/l LE stents ) - Alcohol/Substance Use Hx Alcohol Use: No History of Substance Use: reports: None - Smoking History Smoking history: Former smoker Have you smoked in the past 12 months: Yes Aproximately how many cigarettes per day: 5 If you are a former smoker, when did you quit?: May 2018 - Social History Usual Living Arrangement: Other (had been with daughter; came in from [place] [facility] after [facility] hospitalization) ADL: Support Services History of Recent Travel: No Home Medications - Allergies Allergies/Adverse Reactions: Allergies Allergy/AdvReac Type Severity Reaction Status Date / Time aspirin AdvReac Mild GI upset Verified 07/05/18 13:02 - Home Medications Home Medications: Ambulatory Orders Gabapentin [Neurontin -] 800 mg PO Q8H 04/04/18 Albuterol 0.083% Nebulizer Sun [Ventolin 0.083% Nebulizer Soln -] 1 amp NEB Q4H PRN #7 amp 04/11/18 Carvedilol [Coreg -] 12.5 mg PO BID #60 tablet 04/11/18 Losartan Potassium [Cozaar -] 50 mg PO BID #30 tablet 04/11/18 Naloxone HCl [Narcan] 4 mg NS ONCE PRN #1 spray 05/24/18 Acetaminophen 2 tab PO DAILY PRN #60 tablet 06/01/18 Ergocalciferol (Vitamin D2) [Vitamin D2] 50,000 unit PO Q7D #4 capsule 06/01/18 Cholecalciferol (Vitamin D3) [Vitamin D3] 2,000 unit PO DAILY 06/03/18 Fosamax 70 mg PO WEEKLY 06/03/18 Sodium Chloride [Saline Nose [place]] 1 - 2 sprays NS PRN #1 spray 06/03/18 Abacavir/Dolutegravir/Lamivudi [Triumeq 600-50-300 mg Tablet] 1 each PO DAILY # 30 tablet 06/08/18 Albuterol Sulfate Inhaler - [Ventolin HFA Inhaler -] 1 - 2 inh PO Q6H PRN #1 inhaler 06/08/18 Aspirin Coated [Ecotrin -] 81 mg PO DAILY #30 tablet.ec 06/08/18 Calcium Carbonate/Vitamin D3 [Calcium 500-Vit D3 200 Caplet] 1 tab PO DAILY #30 tablet 06/08/18 Clopidogrel Bisulfate [Plavix] 75 mg PO DAILY #30 tablet 06/08/18 Diphenhydramine [Benadryl Capsule -] 50 mg PO HS #30 capsule 06/08/18 Escitalopram Oxalate [Lexapro -] 10 mg PO DAILY #30 tablet 06/08/18 Ferrous Sulfate [Feosol] 325 mg PO BID #60 tablet 06/08/18 Fluticasone/Salmeterol [Advair Hfa 230-21 Mcg Inhaler] 2 puff IH BID #1 hfa.aer.ad 06/08/18 Multivitamin [One-Daily Multi-Vitamin] 1 each PO DAILY #30 tablet 06/08/18 Nicotine [Nicotrol Ns] 1 dose IH DAILY PRN #1 spray 06/08/18 Pantoprazole Sodium [Protonix -] 20 mg PO DAILY #30 tablet.ec 06/08/18 Ranolazine [Ranexa -] 500 mg PO BID #60 tab 06/08/18 Simvastatin 10 mg PO DAILY #30 tablet 06/08/18 hydrALAZINE HCL [Apresoline -] 50 mg PO TID #90 tablet 06/08/18 Morphine *Sr* [MS Contin -] 30 mg PO Q8H #90 tablet.er MDD 3 06/14/18 Furosemide [Lasix -] 40 mg PO DAILY #30 tablet 07/08/18 Spironolactone [Aldactone -] 25 mg PO DAILY #30 tablet 07/08/18 Family Disease History - Family Disease History Family Disease History: Heart Disease: Mother (, hx etoh), Sister (two - living), CA: Sister, Other: Father (, hx etoh), Mother, Brother (two living - five - ? reason), Sister, Daughter (two adults) Review of Systems Unable to obtain ROS, reason: pt cant give; in hosp 4wk Physical Exam Vital Signs: Vital Signs Temperature 97.4 F L 09/03/18 14:00 Pulse Rate 121 H 09/03/18 14:00 Respiratory Rate 30 H 09/03/18 14:00 Blood Pressure 131/84 09/03/18 14:00 O2 Sat by Pulse Oximetry (%) 95 09/03/18 13:04 Vital Signs Period Temp Pulse Resp BP Sys/Buck Pulse Ox Last 24 Hr 97.4 F-98.4 F 110-121 16-31 79-131/52-85 95-100 Intake & Output 09/02/18 09/03/18 09/03/18 23:59 07:59 15:59 Intake Total 1128.4 690 Output Total 20 150 Balance 1128.4 670 -150 Weight 173 lb 6.4 oz Intake: IV 278.4 290 DIPRIVAN - 1,000,000 mcg 86.4 98 In 100 ml @ 5 MCG/KG/MIN 2.101 mls/hr IVPB TITR [facility] Rx#:[id number] Pitressin - 50 Units In 48 48 Normal Saline - 97.5 ml @ 2 UNITS/HR 4 mls/hr IVPB ASDIR [facility] Rx#: [id number] Sublimaze Injection - 500 120 120 Mcg In Normal Saline 100 ml Mini Bag 90 ml @ 25 MCG/HR 5 mls/hr IVPB TITR [facility] Rx#:[id number] Versed - 100 mg In Normal 24 24 Saline - 100 ml @ 1 MG/ HR 1 mls/hr IVPB TITR [facility] Rx#:[id number] IVPB 800 400 Tube Irrigant 50 Output: Urine 20 150 Torres 20 150 Other: Voiding Method Indwelling Catheter Indwelling Catheter Bowel Movement Yes Weight Measurement Method Built in [facility] Constitutional: Yes: Well Nourished, No Distress, Calm Eyes: Yes: Conjunctiva Clear. No: Sclera Icterus HENT: Yes: Atraumatic, Normocephalic, Other (NG feeding tube in place) Neck: Yes: Supple, Trachea Midline, Other (tracheostomy present) Cardiovascular: Yes: Tachycardia. No: Pulse Irregular Respiratory: Yes: Regular, Mechanically Ventilated (via trach), Rhonchi ( scattered, R>L) Gastrointestinal: Yes: Soft, Hypoactive Bowel Sounds (absent). No: Tenderness ( none apparent) ...Rectal Exam: Yes: Hemorrhoids/External, Other (Flexi-seal rectal tube in place, leaking liquid and loose/nonformed stool around balloon; entire anorectal area excoriated, raw, superficially eroded, extending onto perineum and perirectal region) Renal/: Yes: Torres Present, Oliguria. No: Hematuria Musculoskeletal: No: Joint Stiffness, Joint Swelling Extremities: No: Cool, Cyanosis Edema: Yes Edema: LUE: 2+, RUE: 2+, LLE: 1+, RLE: 1+ Integumentary: Yes: Pressure Ulcer (stage 2 irregular, raw/open/excoriated skin/ tissues in perirectal area, tender - pt responds to palpation/cleansing of area ; unstageable sacrococcygeal blackening of skin, directly over bone and immediately surrounding areas, leathery, dark skin, gradually transitions inferiorly to raw/excoriated tissues around anorectal region). No: Jaundice, Rash Wound/Incision: Yes: Dressing Removed (Allevyn over sacrococcygeal area). No: Dressing Dry and Intact (lower part of allevyn coming off because of dirty, soaking wet perirectal region - all chux/pads wet) Neurological: Yes: Unresponsive (responds to painful stimuli, eyes open, grimaces). No: Alert Psychiatric: No: Alert, Agitated Labs: CBC, BMP 09/03/18 05:30 09/03/18 05:30 CMP Sodium 127 mmol/L (136-145) L 09/03/18 05:30 Potassium 3.4 mmol/L (3.5-5.1) L 09/03/18 05:30 Chloride 92 mmol/L (98-107) L 09/03/18 05:30 Carbon Dioxide 19 mmol/L (21-32) L 09/03/18 05:30 Anion Gap 15 MMOL/L (8-16) 09/03/18 05:30 BUN 65 mg/dL (7-18) H 09/03/18 05:30 Creatinine 3.5 mg/dL (0.55-1.3) H 09/03/18 05:30 Creat Clearance w eGFR 13.03 (>60) 09/03/18 05:30 POC Glucometer 196 UNITS (80-120) 08/18/18 11:53 Random Glucose 132 mg/dL (74-106) H 09/03/18 05:30 Lactic Acid 0.8 mmol/L (0.4-2.0) 08/23/18 13:07 Calcium 7.9 mg/dL (8.5-10.1) L 09/03/18 05:30 Phosphorus 8.0 mg/dL (2.5-4.9) H 09/03/18 05:30 Magnesium 1.9 mg/dL (1.8-2.4) 09/03/18 05:30 Total Bilirubin 2.8 mg/dL (0.2-1) H 09/01/18 05:30 Direct Bilirubin 0.7 mg/dL (0.0-0.2) H 08/28/18 05:30 AST 27 U/L (15-37) 09/01/18 05:30 ALT 9 U/L (13-61) L 09/01/18 05:30 Alkaline Phosphatase 73 U/L (45-117) 09/01/18 05:30 Ammonia 41.30 umol/L (11-32) H 08/10/18 20:00 Creatine Kinase 534 U/L (26-192) H 08/09/18 21:30 Creatine Kinase Index 0.8 % (0.0-5.0) 08/09/18 21:30 CK-MB (CK-2) 4.5 ng/mL (0.5-3.6) H 08/09/18 21:30 Troponin I 0.37 ng/ml (0.00-0.05) H 08/10/18 20:00 B-Natriuretic Peptide 31316.1 pg/ml (5-125) H 08/08/18 18:42 Total Protein 4.9 g/dl (6.4-8.2) L 09/01/18 05:30 Albumin 1.5 g/dl (3.4-5.0) L 09/01/18 05:30 Triglycerides 246 mg/dL (0-150) H 08/15/18 05:30 Cholesterol 159 mg/dL (50-200) 08/15/18 05:30 Total LDL Cholesterol 82 mg/dL (5-100) 08/15/18 05:30 HDL Cholesterol 30 mg/dL (40-60) L 08/15/18 05:30 Lipase 183 U/L (73-393) 08/28/18 05:30 hyponatremia, hypokalemia, acidosis BUN/Cr down from admission but still high - ARF leukocytosis, anemia INR, PTT INR 1.18 (0.83-1.09) H 09/02/18 05:30 Urine Test Results Urine Color Red 08/27/18 03:45 Urine Appearance Turbid 08/27/18 03:45 Urine pH 5.0 (5.0-8.0) 08/27/18 03:45 Ur Specific [place] 1.025 (1.010-1.035) 08/27/18 03:45 Urine Protein 3+ (NEGATIVE) H 08/27/18 03:45 Urine Glucose (UA) Negative (NEGATIVE) 08/27/18 03:45 Urine Ketones Negative (NEGATIVE) 08/27/18 03:45 Urine Blood 3+ (NEGATIVE) H 08/27/18 03:45 Urine Nitrite Positive (NEGATIVE) H 08/27/18 03:45 Urine Bilirubin 1+ (NEGATIVE) H 08/27/18 03:45 Ur Leukocyte Esterase 3+ (NEGATIVE) H 08/27/18 03:45 Microbiology 08/27/18 10:23 Blood - Central Line Blood Culture - Final NO GROWTH AFTER 5 DAYS INCUBATION 08/27/18 08:40 Blood - Central Line Blood Culture - Final NO GROWTH AFTER 5 DAYS INCUBATION 08/27/18 03:45 Sputum - Endotrachea Suction/Ventilator Gram Stain - Final 08/27/18 03:45 Sputum - Endotrachea Suction/Ventilator Sputum Culture - Final Pseudomonas Aeruginosa 08/27/18 12:00 Urine - Urine Torres Urine Culture - Final Yeast Like Organism 08/22/18 20:30 Blood - Peripheral Venous Blood Culture - Final NO GROWTH AFTER 5 DAYS INCUBATION 08/22/18 18:00 Blood - Peripheral Venous Blood Culture - Final NO GROWTH AFTER 5 DAYS INCUBATION 08/23/18 14:15 Sputum - Endotrachea Suction/Ventilator Gram Stain - Final 08/23/18 14:15 Sputum - Endotrachea Suction/Ventilator Sputum Culture - Final Pseudomonas Aeruginosa 08/23/18 18:00 Urine - Urine Torres Urine Culture - Final Yeast Like Organism 08/18/18 09:35 Blood - Peripheral Venous Blood Culture - Final NO GROWTH AFTER 5 DAYS INCUBATION 08/18/18 09:25 Blood - Peripheral Venous Blood Culture - Final NO GROWTH AFTER 5 DAYS INCUBATION 08/18/18 11:00 Sputum - Endotrachea Suction/Ventilator Gram Stain - Final 08/18/18 11:00 Sputum - Endotrachea Suction/Ventilator Sputum Culture - Final Pseudomonas Aeruginosa Serratia Marcescens Staphylococcus Aureus 08/15/18 09:40 Blood - Peripheral Venous Blood Culture - Final NO GROWTH AFTER 5 DAYS INCUBATION 08/18/18 14:15 Stool Salmonella/Shigella Culture - Final 08/18/18 14:15 Stool Campylobacter Culture - Final NO GROWTH OF CAMPYLOBACTER SPECIES OBTAINED 08/18/18 14:15 Stool Yersinia Culture - Final NO GROWTH OF YERSINIA SPECIES OBTAINED 08/18/18 14:15 Stool Vibrio Culture - Final NO GROWTH OF VIBRIO SPECIES OBTAINED 08/18/18 14:15 Stool Escherichia coli 0157 Culture - Final NO GROWTH OF E COLI 0157 OBTAINED 08/19/18 10:17 Stool Clostridioides difficile Antigen - Final 08/19/18 10:17 Stool Clostridioides difficile Toxin Assay - Final 08/15/18 10:18 Blood - Peripheral Venous Blood Culture - Final Staphylococcus Aureus 08/18/18 11:00 Urine - Urine Torres Urine Culture - Final NO GROWTH OBTAINED 08/13/18 17:00 Urine - Urine Torres Urine Culture - Final Escherichia Coli Klebsiella Pneumoniae Enterococcus Faecalis 08/13/18 16:00 Sputum - Endotracheal Suction W/O Vent Gram Stain - Final 08/13/18 16:00 Sputum - Endotracheal Suction W/O Vent Sputum Culture - Final Staphylococcus Aureus Pseudomonas Aeruginosa 08/08/18 19:37 Blood - Peripheral Venous Blood Culture - Final NO GROWTH AFTER 5 DAYS INCUBATION 08/08/18 19:37 Blood - Peripheral Venous Blood Culture - Final NO GROWTH AFTER 5 DAYS INCUBATION 08/08/18 20:39 Urine - Urine - Catheterized Urine Culture - Final NO GROWTH OBTAINED Imaging - Results Cat Scan: Report Reviewed, Image Reviewed (from abd/pelv 08/09/18 - very limited study, no contrast; possible mild edema/?skin thickening over sacrococcygeal area, no obvious acute perirectal findings, at that time, pt had Torres but not rectal tube) Problem List - Problems (1) Pressure injury of sacral region, unstageable Assessment/Plan: blackened, leathery skin directly overlies bone no indication for excision/debridement at this time try to keep area clean and dry pt requires PRESSURE RELIEF entirely off of midline - should be positioned side- [id number]-by-side, up on alternating hip/shoulder, not just with pillows wedged at back/buttocks - and repositioning at least every 2 hours recommend changing to higher level pressure-relief mattress/surface, as true pressure relief will be extremely difficult given pt's clinical issues (tube feeding and need for head of bed elevation, constant leakage from rectal tube) optimize nutritional status Code(s): L89.150 - PRESSURE ULCER OF SACRAL REGION, UNSTAGEABLE (2) Pressure ulcer of contiguous region involving back and buttock, stage 2 Assessment/Plan: anorectal and surrounding tissue excoriation, superficial erosion multifactorial - pressure as well as constant local contamination, presence of rectal tube - balloon may be producing pressure against local tissues as well rectal tube does not appear to be effectively evacuating all liquid stool, given constant leakage around it - would remove tube/balloon and check JOVON to make sure pt is not impacted with solid stool with diarrhea around it pt is poor candidate for GI diversion, overall prognosis poor DNR status ICU team considering PEG placement for TF consider protecting open skin/tissues with combination paste of zinc oxide and antifungal powder - need barrier against constant stool evacuation will order these from pharmacy - spoke with pt's nurse very frequent changes of pads, try to keep area clean and as dry as possible complete pressure relief off area as outlined above This patient is critically ill. Time spent reviewing chart, examining patient, talking with providers and/or family and documentation is 45 minutes. Code(s): L89.42 - PRESSR ULCER OF CONTIG SITE OF BACK, BUTTOCK AND HIP, STG 2 Qualifiers: Laterality: unspecified laterality Qualified Code(s): L89.42 - Pressure ulcer of contiguous site of back, buttock and hip, stage 2 (3) CHF (congestive heart failure) Code(s): I50.9 - HEART FAILURE, UNSPECIFIED Qualifiers: Heart failure type: diastolic Heart failure chronicity: chronic Qualified Code(s): I50.32 - Chronic diastolic (congestive) heart failure (4) Respiratory failure requiring intubation Assessment/Plan: s/p tracheostomy, weaning sedation Code(s): J96.90 - RESPIRATORY FAILURE, UNSP, UNSP W HYPOXIA OR HYPERCAPNIA (5) COPD (chronic obstructive pulmonary disease) Code(s): J44.9 - CHRONIC OBSTRUCTIVE PULMONARY DISEASE, UNSPECIFIED Qualifiers: COPD type: COPD with acute lower respiratory infection Qualified Code(s): J44.0 - Chronic obstructive pulmonary disease with acute lower respiratory infection (6) HIV Code(s): Z21 - ASYMPTOMATIC HUMAN IMMUNODEFICIENCY VIRUS INFECTION STATUS (7) HTN (hypertension) Code(s): I10 - ESSENTIAL (PRIMARY) HYPERTENSION Qualifiers: Hypertension type: essential hypertension Qualified Code(s): I10 - Essential (primary) hypertension (8) Hyperlipidemia Code(s): E78.5 - HYPERLIPIDEMIA, UNSPECIFIED Qualifiers: Hyperlipidemia type: pure hypercholesterolemia Qualified Code(s): E78.00 - Pure hypercholesterolemia, unspecified; E78.0 - Pure hypercholesterolemia (9) PVD (peripheral vascular disease) Code(s): I73.9 - PERIPHERAL VASCULAR DISEASE, UNSPECIFIED (10) Severe sepsis with septic shock Assessment/Plan: weaning pressors - all including vasopressin off at this time Code(s): A41.9 - SEPSIS, UNSPECIFIED ORGANISM; R65.21 - SEVERE SEPSIS WITH SEPTIC SHOCK (11) Leukocytosis Code(s): D72.829 - ELEVATED WHITE BLOOD CELL COUNT, UNSPECIFIED Qualifiers: Leukocytosis type: bandemia Qualified Code(s): D72.825 - Bandemia (12) Acute renal failure on dialysis Assessment/Plan: pt has been dialyzed by nephrology previously - with [facility] access in place Code(s): N17.9 - ACUTE KIDNEY FAILURE, UNSPECIFIED; Z99.2 - DEPENDENCE ON RENAL DIALYSIS
[2018-09-03] MEDS: VASOPRESSIN 50 UNITS in SODIUM CHLORIDE 97.5 ML IVPB SCH (16:12)
[2018-09-03] MEDS: NOREPINEPHRINE BITARTRATE 8,000 MCG in SODIUM CHLORIDE 492 ML IV SCH (17:22)
[2018-09-03] MEDS: MIDAZOLAM 100 MG in SODIUM CHLORIDE 100 ML IVPB SCH (17:53)
[2018-09-03] MEDS: FENTANYL INJECTION 500 MCG in SODIUM CHLORIDE 90 ML IVPB SCH (17:53)
[2018-09-03] MEDS: NYSTATIN POWDER 100,000 UNITS/GM - 15 GM TOPICAL POWDER TP SCH ×2 (18:40→22:56)
[2018-09-03] MEDS: ZINC OXIDE 20% TOPICAL OINTMENT 30 GM TUBE TP SCH ×2 (18:41→22:57)
[2018-09-03] MEDS: DEXMEDETOMIDINE HCL 200 MCG in SODIUM CHLORIDE 48 ML IVPB SCH (19:36)
[2018-09-03] MEDS ORDERED: fentaNYL CITRATE 250 MCG/5 ML VIAL ONE (19:48)
[2018-09-03] MEDS: FENTANYL INJECTION 500 MCG in DEXTROSE 5%-WATER - 90 ML IVPB SCH (19:52)
[2018-09-03] MEDS ORDERED: RANITIDINE HCL 150 MG/10 ML UNIT-DOSE PO SCH (22:00)
--- NOTE | 2018-09-03 22:06 | PN ---
Progress Note, Physician - Current Medication List Current Medications: Active Medications Abacavir/Dolutegravir/Lamivudine (Triumeq (Non-Formulary)) 1 each PO DAILY [facility] Last Admin: 09/03/18 11:04 Dose: 1 each Acetaminophen (Tylenol Oral Solution -) 1,000 mg PO Q6H PRN PRN Reason: FEVER Last Admin: 08/27/18 02:28 Dose: 1,000 mg Chlorhexidine Gluconate (Peridex -) 15 ml MM BID [facility] Last Admin: 09/03/18 09:13 Dose: 15 ml Fludrocortisone Acetate (Florinef -) 0.05 mg NGT DAILY [facility] Last Admin: 09/03/18 11:04 Dose: 0.05 mg Heparin Sodium (Porcine) (Heparin -) 5,000 unit SQ TID [facility] Last Admin: 09/03/18 14:26 Dose: 5,000 unit Hydrocortisone Sodium Succinate (Solu-Cortef -) 100 mg IVPUSH Q8H-IV [facility] Last Admin: 09/03/18 17:29 Dose: 100 mg IV Flush (Triple Lumen Flush) 4 ml IVPUSH PRN PRN PRN Reason: Protocol IV Flush (Triple Lumen Flush) 4 ml IVPUSH BID [facility] Last Admin: 09/03/18 09:13 Dose: Not Given IV Flush (Triple Lumen Flush) 4 ml IVPUSH PRN PRN PRN Reason: Protocol Nafcillin Sodium 2 gm/ (Dextrose) 100 mls @ 100 mls/hr IVPB Q4H-IV [facility]; Protocol Last Admin: 09/03/18 17:29 Dose: 100 mls/hr Meropenem 500 mg/ Dextrose 100 mls @ 200 mls/hr IVPB Q8H-IV [facility] Last Admin: 09/03/18 17:29 Dose: 200 mls/hr Vasopressin 50 units/ Sodium (Chloride) 100 mls @ 4 mls/hr IVPB ASDIR [facility]; Protocol Last Admin: 09/03/18 16:12 Dose: Not Given Norepinephrine Bitartrate 8, (000 mcg/ Sodium Chloride) 500 mls @ 18.75 mls/hr IV TITR [facility]; Protocol Last Admin: 09/03/18 17:22 Dose: Not Given Dexmedetomidine HCl 200 mcg/ (Sodium Chloride) 50 mls @ 3.93 mls/hr IVPB TITR [facility]; Protocol Last Admin: 09/03/18 19:36 Dose: 0.2 mcg/kg/hr, 3.93 mls/hr Fentanyl 500 mcg/ Dextrose 100 mls @ 0.4 mls/hr IVPB TITR [facility]; Protocol Last Titration: 09/03/18 21:04 Dose: 75 mcg/hr, 15 mls/hr Multi-Ingredient Ointment (Zinc Oxide) 1 applic TP QID [facility] Last Admin: 09/03/18 18:41 Dose: Not Given Nystatin (Nystop Powder -) 1 applic TP QID [facility] Last Admin: 09/03/18 18:40 Dose: Not Given Ranitidine HCl (Zantac Oral Solution -) 150 mg NGT BID [facility] - Objective Vital Signs: Vital Signs Temperature 97.8 F 09/03/18 20:00 Pulse Rate 117 H 09/03/18 20:00 Respiratory Rate 37 H 09/03/18 21:07 Blood Pressure 85/62 L 09/03/18 20:00 O2 Sat by Pulse Oximetry (%) 95 09/03/18 13:04 Labs: CBC, BMP 09/03/18 05:30 09/03/18 05:30 INR, PTT INR 1.18 (0.83-1.09) H 09/02/18 05:30 Problem List - Problems (1) Altered mental status, unspecified Code(s): R41.82 - ALTERED MENTAL STATUS, UNSPECIFIED Qualifiers: Altered mental status type: somnolence Qualified Code(s): R40.0 - Somnolence (2) CHF (congestive heart failure) Code(s): I50.9 - HEART FAILURE, UNSPECIFIED Qualifiers: Heart failure type: diastolic Heart failure chronicity: chronic Qualified Code(s): I50.32 - Chronic diastolic (congestive) heart failure (3) COPD with acute exacerbation Code(s): J44.1 - CHRONIC OBSTRUCTIVE PULMONARY DISEASE W (ACUTE) EXACERBATION (4) Elevated troponin I level Code(s): R74.8 - ABNORMAL LEVELS OF OTHER SERUM ENZYMES (5) Sepsis Code(s): A41.9 - SEPSIS, UNSPECIFIED ORGANISM (6) HIV Code(s): Z21 - ASYMPTOMATIC HUMAN IMMUNODEFICIENCY VIRUS INFECTION STATUS (7) HTN (hypertension) Code(s): I10 - ESSENTIAL (PRIMARY) HYPERTENSION Qualifiers: Hypertension type: essential hypertension Qualified Code(s): I10 - Essential (primary) hypertension (8) Hyperlipidemia Code(s): E78.5 - HYPERLIPIDEMIA, UNSPECIFIED Qualifiers: Hyperlipidemia type: pure hypercholesterolemia Qualified Code(s): E78.00 - Pure hypercholesterolemia, unspecified; E78.0 - Pure hypercholesterolemia
[2018-09-03] MEDS: RANITIDINE HCL 150 MG/10 ML UNIT-DOSE NGT SCH (22:57)
[2018-09-04] MEDS ORDERED: PT OWN MED DRAWER 7, Y5N ONE ×7 (02:22→21:35)
[2018-09-04] MEDS: MEROPENEM 500 MG in DEXTROSE 5%-WATER 100 ML IVPB SCH ×3 (02:24→17:31)
[2018-09-04] MEDS: NAFCILLIN - 2 GM in DEXTROSE 5%-WATER - 100 ML IVPB SCH ×6 (02:25→21:26)
[2018-09-04] MEDS: HYDROCORTISONE SOD SUCCINATE 100 MG/2 ML VIAL IVPUSH SCH ×3 (02:25→17:30)
[2018-09-04] MEDS ORDERED: fentaNYL CITRATE 250 MCG/5 ML VIAL ONE ×2 (02:34→09:06)
[2018-09-04] MEDS: BANATROL PLUS POWDER PACKET PO SCH ×3 (05:16→21:26)
[2018-09-04] MEDS: HEPARIN NA (PORCINE) 5,000 UNITS/ML 1ML VIAL SQ SCH ×3 (05:16→21:26)
[2018-09-04] MEDS ORDERED: NOREPINEPHRINE BITARTRATE 4 MG/4 ML ML IV ONE (06:22)
[2018-09-04 06:49] LABS: ALBUMIN 1.2 g/dl (3.4-5.0); ALK PHOS 85 U/L (45-117); ANION GAP 17 MMOL/L (8-16); BILIRUBIN,TOTAL 3.2 mg/dL (0.2-1); BLOOD UREA NITROGEN 72 mg/dL (7-18); CALCIUM 7.9 mg/dL (8.5-10.1); CHLORIDE 92 mmol/L (98-107); CO2 19 mmol/L (21-32); CREATININE 3.8 mg/dL (0.55-1.3); GLUCOSE,RANDOM 154 mg/dL (74-106); PHOSPHOROUS 8.1 mg/dL (2.5-4.9); POTASSIUM 3.3 mmol/L (3.5-5.1); SGOT/AST 28 U/L (15-37); SGPT/ALT 7 U/L (13-61); SODIUM 127 mmol/L (136-145); TOT PROT 4.8 g/dl (6.4-8.2)
[2018-09-04 07:14] LABS: HEMATOCRIT 24.6 % (32.4-45.2); HEMOGLOBIN 8.2 GM/dL (10.7-15.3); MCH 29.1 pg (25.7-33.7); MCHC 33.4 g/dl (32.0-36.0); MEAN CELL VOLUME 87.1 fl (80-96); MEAN PLT VOLUME 9.5 fl (7.5-11.1); PLATELET COUNT 173 K/MM3 (134-434); RBC 2.82 M/mm3 (3.60-5.2); RDW 17.4 % (11.6-15.6); WHITE BLOOD COUNT 28.4 K/mm3 (4.0-10.0)
--- NOTE | 2018-09-04 07:19 | CON.GI ---
Consult - History of Present Illness History of Present Illness: GI CONSULT DICTATED - LEFT MESSAGE WITH DAUGHTER MARGARITA REGARDING HER WISHES FOR PEG TUBE - REC - PALLIATIVE CARE EVALUATION CONSIDERING THIS PATIENT'S CLINICAL STATUS. - Past Medical History Cardio/Vascular: Yes: CAD, CHF, HTN, Hyperlipdemia, Pulmonary Hypertension, Other (PVD, severe TR) Pulmonary: Yes: Asthma, COPD, O2 Dependent (was 2L [employer]) Hepatobiliary: Yes: Cholelithiasis, Hepatitis C (s/p treatment) Renal/: Yes: Renal Failure Infectious Disease: Yes: HIV - Past Surgical History Past Surgical History: Yes: CABG, Stent (b/l LE stents ) - Alcohol/Substance Use Hx Alcohol Use: No History of Substance Use: reports: None - Smoking History Smoking history: Former smoker Have you smoked in the past 12 months: Yes Aproximately how many cigarettes per day: 5 If you are a former smoker, when did you quit?: May 2018 - Social History Usual Living Arrangement: Other (had been with daughter; came in from [place] /[facility] after last hospitalization) ADL: Support Services History of Recent Travel: No Home Medications - Allergies Allergies/Adverse Reactions: Allergies Allergy/AdvReac Type Severity Reaction Status Date / Time aspirin AdvReac Mild GI upset Verified 07/05/18 13:02 - Home Medications Home Medications: Ambulatory Orders Gabapentin [Neurontin -] 800 mg PO Q8H 04/04/18 Albuterol 0.083% Nebulizer Sun [Ventolin 0.083% Nebulizer Soln -] 1 amp NEB Q4H PRN #7 amp 04/11/18 Carvedilol [Coreg -] 12.5 mg PO BID #60 tablet 04/11/18 Losartan Potassium [Cozaar -] 50 mg PO BID #30 tablet 04/11/18 Naloxone HCl [Narcan] 4 mg NS ONCE PRN #1 spray 05/24/18 Acetaminophen 2 tab PO DAILY PRN #60 tablet 06/01/18 Ergocalciferol (Vitamin D2) [Vitamin D2] 50,000 unit PO Q7D #4 capsule 06/01/18 Cholecalciferol (Vitamin D3) [Vitamin D3] 2,000 unit PO DAILY 06/03/18 Fosamax 70 mg PO WEEKLY 06/03/18 Sodium Chloride [Saline Nose [place]] 1 - 2 sprays NS PRN #1 spray 06/03/18 Abacavir/Dolutegravir/Lamivudi [Triumeq 600-50-300 mg Tablet] 1 each PO DAILY # 30 tablet 06/08/18 Albuterol Sulfate Inhaler - [Ventolin HFA Inhaler -] 1 - 2 inh PO Q6H PRN #1 inhaler 06/08/18 Aspirin Coated [Ecotrin -] 81 mg PO DAILY #30 tablet.ec 06/08/18 Calcium Carbonate/Vitamin D3 [Calcium 500-Vit D3 200 Caplet] 1 tab PO DAILY #30 tablet 06/08/18 Clopidogrel Bisulfate [Plavix] 75 mg PO DAILY #30 tablet 06/08/18 Diphenhydramine [Benadryl Capsule -] 50 mg PO HS #30 capsule 06/08/18 Escitalopram Oxalate [Lexapro -] 10 mg PO DAILY #30 tablet 06/08/18 Ferrous Sulfate [Feosol] 325 mg PO BID #60 tablet 06/08/18 Fluticasone/Salmeterol [Advair Hfa 230-21 Mcg Inhaler] 2 puff IH BID #1 hfa.aer.ad 06/08/18 Multivitamin [One-Daily Multi-Vitamin] 1 each PO DAILY #30 tablet 06/08/18 Nicotine [Nicotrol Ns] 1 dose IH DAILY PRN #1 spray 06/08/18 Pantoprazole Sodium [Protonix -] 20 mg PO DAILY #30 tablet.ec 06/08/18 Ranolazine [Ranexa -] 500 mg PO BID #60 tab 06/08/18 Simvastatin 10 mg PO DAILY #30 tablet 06/08/18 hydrALAZINE HCL [Apresoline -] 50 mg PO TID #90 tablet 06/08/18 Morphine *Sr* [MS Contin -] 30 mg PO Q8H #90 tablet.er MDD 3 06/14/18 Furosemide [Lasix -] 40 mg PO DAILY #30 tablet 07/08/18 Spironolactone [Aldactone -] 25 mg PO DAILY #30 tablet 07/08/18 Family Disease History - Family Disease History Family Disease History: Heart Disease: Mother (, hx etoh), Sister (two - living), CA: Sister, Other: Father (, hx etoh), Mother, Brother (two living - five - ? reason), Sister, Daughter (two adults) Physical Exam-GI Vital Signs: Vital Signs Temperature 98.4 F 09/04/18 06:00 Pulse Rate 114 H 09/04/18 06:33 Respiratory Rate 35 H 09/04/18 06:42 Blood Pressure 68/54 L 09/04/18 06:33 O2 Sat by Pulse Oximetry (%) 94 L 09/04/18 00:17 Labs: CBC, BMP 09/04/18 05:30 INR, PTT INR 1.18 (0.83-1.09) H 09/02/18 05:30
[2018-09-04] MEDS: RANITIDINE HCL 150 MG/10 ML UNIT-DOSE NGT SCH ×2 (09:13→21:27)
[2018-09-04] MEDS: FLUDROCORTISONE ACETATE 0.1 MG TABLET (FP) NGT SCH (09:14)
[2018-09-04] MEDS: TRIPLE LUMEN FLUSH 4 ML ML IVPUSH SCH ×2 (09:14→22:48)
[2018-09-04] MEDS: CHLORHEXIDINE GLUCONATE 0.12% 15ML CUP MM SCH ×2 (09:14→21:27)
[2018-09-04] MEDS: ZINC OXIDE 20% TOPICAL OINTMENT 30 GM TUBE TP SCH (09:14)
[2018-09-04] MEDS: NYSTATIN POWDER 100,000 UNITS/GM - 15 GM TOPICAL POWDER TP SCH ×4 (09:14→21:27)
[2018-09-04] MEDS: ABACAVIR/DOLUTEGRAVIR/LAMIVUDI (TRIUMEQ) TABLET -NF PO SCH (09:14)
[2018-09-04] MEDS ORDERED: CLOPIDOGREL BISULFATE 75 MG TABLET (FP) PO SCH (10:00)
--- NOTE | 2018-09-04 10:18 | PN ---
Teaching Attending Note Name of Resident: Pino Saucedo ATTENDING PHYSICIAN STATEMENT I saw and evaluated the patient. I reviewed the resident's note and discussed the case with the resident. I agree with the resident's findings and plan as documented. SUBJECTIVE: Patient seen and examined in the ICU. AC Mode of vent, 40% FiO2. Levophed restarted overnight for hypotension. Now on 3 mcq NE and Vasopressin @ 3 units for hemodynamic support. OBJECTIVE: Intake & Output 09/01/18 09/02/18 09/03/18 09/04/18 23:59 23:59 23:59 23:59 Intake Total 2620.9 2138.4 2608 885 Output Total 800 150 180 30 Balance 1820.9 1988.4 2428 855 Weight 172 lb 1 oz 172 lb 1 oz 173 lb 6.4 oz 173 lb 1.6 oz Last Vital Signs Temp Pulse Resp BP Pulse Ox 98.4 F 106 H 30 H 97/79 94 L 09/04/18 06:00 09/04/18 08:00 09/04/18 08:38 09/04/18 08:00 09/04/18 00:17 Active Medications Abacavir/Dolutegravir/Lamivudine (Triumeq (Non-Formulary)) 1 each PO DAILY ALYSON Last Admin: 09/04/18 09:14 Dose: 1 each Acetaminophen (Tylenol Oral Solution -) 1,000 mg PO Q6H PRN PRN Reason: FEVER Last Admin: 08/27/18 02:28 Dose: 1,000 mg Chlorhexidine Gluconate (Peridex -) 15 ml MM BID ALYSON Last Admin: 09/04/18 09:14 Dose: 15 ml Fludrocortisone Acetate (Florinef -) 0.05 mg NGT DAILY ALYSON Last Admin: 09/04/18 09:14 Dose: 0.05 mg Heparin Sodium (Porcine) (Heparin -) 5,000 unit SQ TID ALYSON Last Admin: 09/04/18 05:16 Dose: 5,000 unit Hydrocortisone Sodium Succinate (Solu-Cortef -) 100 mg IVPUSH Q8H-IV ALYSON Last Admin: 09/04/18 09:13 Dose: 100 mg IV Flush (Triple Lumen Flush) 4 ml IVPUSH PRN PRN PRN Reason: Protocol IV Flush (Triple Lumen Flush) 4 ml IVPUSH BID ALYSON Last Admin: 09/04/18 09:14 Dose: 4 ml IV Flush (Triple Lumen Flush) 4 ml IVPUSH PRN PRN PRN Reason: Protocol Nafcillin Sodium 2 gm/ (Dextrose) 100 mls @ 100 mls/hr IVPB Q4H-IV ALYSON; Protocol Last Admin: 09/04/18 09:13 Dose: 100 mls/hr Meropenem 500 mg/ Dextrose 100 mls @ 200 mls/hr IVPB Q8H-IV ALYSON Last Admin: 09/04/18 09:13 Dose: 200 mls/hr Vasopressin 50 units/ Sodium (Chloride) 100 mls @ 4 mls/hr IVPB ASDIR ALYSON; Protocol Last Titration: 09/04/18 04:10 Dose: 4 units/hr, 8 mls/hr Norepinephrine Bitartrate 8, (000 mcg/ Sodium Chloride) 500 mls @ 18.75 mls/hr IV TITR ALYSON; Protocol Last Titration: 09/04/18 06:33 Dose: 3 mcg/min, 11.25 mls/hr Dexmedetomidine HCl 200 mcg/ (Sodium Chloride) 50 mls @ 3.93 mls/hr IVPB TITR ALYSON; Protocol Last Titration: 09/04/18 06:34 Dose: 0.35 mcg/kg/hr, 7 mls/hr Fentanyl 500 mcg/ Dextrose 100 mls @ 0.4 mls/hr IVPB TITR ALYSON; Protocol Last Titration: 09/04/18 04:41 Dose: 100 mcg/hr, 20 mls/hr Multi-Ingredient Ointment (Zinc Oxide) 1 applic TP QID ALYSON Last Admin: 09/04/18 09:14 Dose: 1 applic Nystatin (Nystop Powder -) 1 applic TP QID ALYSON Last Admin: 09/04/18 09:14 Dose: 1 applic Ranitidine HCl (Zantac Oral Solution -) 150 mg NGT BID [facility] Last Admin: 09/04/18 09:13 Dose: 150 mg Gen: Trached, sedated Heart: RRR Lung: bilateral rhonchi Abd: soft, nontender Ext: + edema Laboratory Results - last 24 hr 09/03/18 09/04/18 09/04/18 14:20 05:30 05:30 WBC 28.4 H RBC 2.82 L Hgb 8.2 L Hct 24.6 L MCV 87.1 MCH 29.1 MCHC 33.4 RDW 17.4 H Plt Count 173 MPV 9.5 Sodium 127 L Potassium 3.3 L Chloride 92 L Carbon Dioxide 19 L Anion Gap 17 H BUN 72 H Creatinine 3.8 H Creat Clearance w eGFR 11.85 Random Glucose 154 H Calcium 7.9 L Phosphorus 8.1 H Magnesium 2.0 Total Bilirubin 3.2 H AST 28 ALT 7 L Alkaline Phosphatase 85 Total Protein 4.8 L Albumin 1.2 L Blood Type O POSITIVE Antibody Screen Negative Crossmatch See Detail ASSESSMENT AND PLAN: Acute on Chronic Hypoxic and Hypercapneic Respiratory Failure S/P Trach 09/02/2018 Acute COPD Exacerbation ARF Pneumonia Septic Shock Acute Kidney Injury Metabolic and Respiratory Acidosis Pulmonary HTN LV Diastolic Dysfunction CAD s/p CABG +Troponins likely Demand Ischemia PAD HIV Hep C HTN Hypercholesterolemia - Re-culture - Remove Left IF access - Sedation vacation - Wean pressors as tolerated - Hydrocortisone, & Fludrocortisone for shock - ABX per ID - Local wound care - monitor urine output, creatinine - inhaled bronchodilators - taper FiO2, PEEP to keep SpO2 >90% - low tidal ventilation <6cc/kg/IBW, keep Plat <30 - Enteral feeds. Will need PEG. - DVT/GI prophylaxis - continue ICU monitoring - Patient is DNR Dr Suero Critical care time spent in reviewing chart, evaluating patient and formulating plan 35 min OBJECTIVE: ASSESSMENT AND PLAN:
--- NOTE | 2018-09-04 10:40 | PN ---
Progress Note (short form) - Note Progress Note: remains intubated-since 08/10 remains on pressors- increased today fio2 40% today cxray stable sedated on steroids Vital Signs Period Temp Pulse Resp BP Sys/Buck Pulse Ox Last 24 Hr 97.4 F-98.4 F 106-124 15-38 68-131/54-87 94-97 right IJ new since Wednesday cor-rrr lungs decreased bs at bases abd soft,nt ext +edema by report sacral ulcer is unstageable CBC, BMP 09/04/18 05:30 09/04/18 05:30 Microbiology 08/27/18 10:23 Blood - Central Line Blood Culture - Final NO GROWTH AFTER 5 DAYS INCUBATION 08/27/18 08:40 Blood - Central Line Blood Culture - Final NO GROWTH AFTER 5 DAYS INCUBATION 08/27/18 03:45 Sputum - Endotrachea Suction/Ventilator Gram Stain - Final 08/27/18 03:45 Sputum - Endotrachea Suction/Ventilator Sputum Culture - Final Pseudomonas Aeruginosa 08/27/18 12:00 Urine - Urine Torres Urine Culture - Final Yeast Like Organism 08/22/18 20:30 Blood - Peripheral Venous Blood Culture - Final NO GROWTH AFTER 5 DAYS INCUBATION 08/22/18 18:00 Blood - Peripheral Venous Blood Culture - Final NO GROWTH AFTER 5 DAYS INCUBATION 08/23/18 14:15 Sputum - Endotrachea Suction/Ventilator Gram Stain - Final 08/23/18 14:15 Sputum - Endotrachea Suction/Ventilator Sputum Culture - Final Pseudomonas Aeruginosa 08/23/18 18:00 Urine - Urine Torres Urine Culture - Final Yeast Like Organism 08/18/18 09:35 Blood - Peripheral Venous Blood Culture - Final NO GROWTH AFTER 5 DAYS INCUBATION 08/18/18 09:25 Blood - Peripheral Venous Blood Culture - Final NO GROWTH AFTER 5 DAYS INCUBATION 08/18/18 11:00 Sputum - Endotrachea Suction/Ventilator Gram Stain - Final 08/18/18 11:00 Sputum - Endotrachea Suction/Ventilator Sputum Culture - Final Pseudomonas Aeruginosa Serratia Marcescens Staphylococcus Aureus 08/15/18 09:40 Blood - Peripheral Venous Blood Culture - Final NO GROWTH AFTER 5 DAYS INCUBATION 08/18/18 14:15 Stool Salmonella/Shigella Culture - Final 08/18/18 14:15 Stool Campylobacter Culture - Final NO GROWTH OF CAMPYLOBACTER SPECIES OBTAINED 08/18/18 14:15 Stool Yersinia Culture - Final NO GROWTH OF YERSINIA SPECIES OBTAINED 08/18/18 14:15 Stool Vibrio Culture - Final NO GROWTH OF VIBRIO SPECIES OBTAINED 08/18/18 14:15 Stool Escherichia coli 0157 Culture - Final NO GROWTH OF E COLI 0157 OBTAINED 08/19/18 10:17 Stool Clostridioides difficile Antigen - Final 08/19/18 10:17 Stool Clostridioides difficile Toxin Assay - Final 08/15/18 10:18 Blood - Peripheral Venous Blood Culture - Final Staphylococcus Aureus 08/18/18 11:00 Urine - Urine Torres Urine Culture - Final NO GROWTH OBTAINED 08/13/18 17:00 Urine - Urine Torres Urine Culture - Final Escherichia Coli Klebsiella Pneumoniae Enterococcus Faecalis 08/13/18 16:00 Sputum - Endotracheal Suction W/O Vent Gram Stain - Final 08/13/18 16:00 Sputum - Endotracheal Suction W/O Vent Sputum Culture - Final Staphylococcus Aureus Pseudomonas Aeruginosa 08/08/18 19:37 Blood - Peripheral Venous Blood Culture - Final NO GROWTH AFTER 5 DAYS INCUBATION 08/08/18 19:37 Blood - Peripheral Venous Blood Culture - Final NO GROWTH AFTER 5 DAYS INCUBATION 08/08/18 20:39 Urine - Urine - Catheterized Urine Culture - Final NO GROWTH OBTAINED a/p Respiratory failure MSSA bacteremia HCAP-MSSA and Pseudomonas diarrhea HIV -on [id number]- now on HD continue nafcillin and meropenem reculture today given increased pressor needs vancomycin one dose after cultures line changed on Wednesday overall prognosis is poor d/w daughter at bedside
--- NOTE | 2018-09-04 10:42 | PN ---
Physical Exam: SUBJECTIVE: Patient seen and examined at bedside. Patient trached and sedated. More awake today. Not able to follow commands. OBJECTIVE: Vital Signs Period Temp Pulse Resp BP Sys/Buck Pulse Ox Last 24 Hr 97.4 F-98.4 F 106-124 15-38 68-131/54-87 94-97 GENERAL: The patient is awake, alert, and fully oriented, in no acute distress. HEAD: Normal with no signs of trauma. EYES: PERRL, scleral icterus noted, conjunctiva clear. No ptosis. LUNGS: Breath sounds equal, clear to auscultation bilaterally, no wheezes, no crackles, no accessory muscle use. HEART: Regular rate and rhythm, S1, S2 without murmur, rub or gallop. ABDOMEN: Soft, nontender, nondistended, normoactive bowel sounds, no guarding. Rectal exam reveals decreased rectal tone with copious amounts of liquid stool leaking out of the anal sphincter. There is no solid stool in the rectal vault. There are external hemorrhoids. EXTREMITIES: 2+ pulses, warm, well-perfused, no edema. NEUROLOGICAL: Unable to obtain 2/2 clinical status. PSYCH: Normal mood, normal affect. SKIN: Warm, dry, normal turgor. There is a stage 2 pressure ulcer in the lower sacral area. The skin is macerated and raw in the area extending from the gluteal cleft down and around the anal sphincter. In the middle and upper sacral area, there are leathery, dark areas of skin over bony prominences. Laboratory Results - last 24 hr 09/03/18 09/04/18 09/04/18 14:20 05:30 05:30 WBC 28.4 H RBC 2.82 L Hgb 8.2 L Hct 24.6 L MCV 87.1 MCH 29.1 MCHC 33.4 RDW 17.4 H Plt Count 173 MPV 9.5 Sodium 127 L Potassium 3.3 L Chloride 92 L Carbon Dioxide 19 L Anion Gap 17 H BUN 72 H Creatinine 3.8 H Creat Clearance w eGFR 11.85 Random Glucose 154 H Calcium 7.9 L Phosphorus 8.1 H Magnesium 2.0 Total Bilirubin 3.2 H AST 28 ALT 7 L Alkaline Phosphatase 85 Total Protein 4.8 L Albumin 1.2 L Blood Type O POSITIVE Antibody Screen Negative Crossmatch See Detail Active Medications Generic Name Dose Route Start Last Admin Trade Name Freq PRN Reason Stop Dose Admin Abacavir/Dolutegravir/Lamivudine 1 each 08/10/18 14:00 09/04/18 09:14 Triumeq (Non-Formulary) PO 1 each DAILY ALYSON Administration Acetaminophen 1,000 mg 08/16/18 16:11 08/27/18 02:28 Tylenol Oral Solution - PO 1,000 mg Q6H PRN Administration FEVER Chlorhexidine Gluconate 15 ml 08/17/18 22:00 09/04/18 09:14 Peridex - MM 15 ml BID ALYSON Administration Fludrocortisone Acetate 0.05 mg 08/29/18 13:15 09/04/18 09:14 Florinef - NGT 0.05 mg DAILY ALYSON Administration Heparin Sodium (Porcine) 5,000 unit 08/17/18 14:00 09/04/18 05:16 Heparin - SQ 5,000 unit TID ALYSON Administration Hydrocortisone Sodium Succinate 100 mg 08/29/18 11:30 09/04/18 09:13 Solu-Cortef - IVPUSH 100 mg Q8H-IV ALYSON Administration IV Flush 4 ml 08/23/18 11:37 Triple Lumen Flush IVPUSH PRN PRN Protocol IV Flush 4 ml 08/27/18 22:00 09/04/18 09:14 Triple Lumen Flush IVPUSH 4 ml BID ALYSON Administration IV Flush 4 ml 09/01/18 14:37 Triple Lumen Flush IVPUSH PRN PRN Protocol Nafcillin Sodium 2 gm/ 100 mls @ 100 mls/hr 08/19/18 20:00 09/04/18 09:13 Dextrose IVPB 100 mls/hr Q4H-IV ALYSON Administration Protocol Meropenem 500 mg/ Dextrose 100 mls @ 200 mls/hr 08/24/18 18:00 09/04/18 09:13 IVPB 200 mls/hr Q8H-IV ALYSON Administration Vasopressin 50 units/ Sodium 100 mls @ 4 mls/hr 08/29/18 11:45 09/04/18 04:10 Chloride IVPB 4 units/hr ASDIR ALYSON 8 mls/hr Titration Protocol 2 UNITS/HR Norepinephrine Bitartrate 8, 500 mls @ 18.75 mls/hr 08/31/18 16:45 09/04/18 06:33 000 mcg/ Sodium Chloride IV 3 mcg/min TITR ALYSON 11.25 mls/hr Titration Protocol 5 MCG/MIN Dexmedetomidine HCl 200 mcg/ 50 mls @ 3.93 mls/hr 09/03/18 19:15 09/04/18 06: 34 Sodium Chloride IVPB 0.35 mcg/kg/hr TITR ALYSON 7 mls/hr Titration Protocol 0.2 MCG/KG/HR Fentanyl 500 mcg/ Dextrose 100 mls @ 0.4 mls/hr 09/03/18 19:15 09/04/18 04:41 IVPB 100 mcg/hr TITR ALYSON 20 mls/hr Titration Protocol 2 MCG/HR Multi-Ingredient Ointment 1 applic 09/03/18 18:00 09/04/18 09:14 Zinc Oxide TP 1 applic QID ALYSON Administration Nystatin 1 applic 09/03/18 18:00 09/04/18 09:14 Nystop Powder - TP 1 applic QID ALYSON Administration Potassium Chloride 40 meq 09/05/18 10:00 K-Dur - PO DAILY ALYSON Ranitidine HCl 150 mg 09/03/18 22:00 09/04/18 09:13 Zantac Oral Solution - NGT 150 mg BID ALYSON Administration ASSESSMENT/PLAN: 67 year old female with HTN, CAD s/p CABG in 2009, PVD with B/L LE stents, HIV, HEP C, COPD and CHF. Admitted to the ICU for Acute hypoxic hypercapnic respiratory failure and dehydration. Neuro: - Currently sedated with Propofol, Fentanyl, and Versed. Will titrate sedation down as pt required sedation overnight 2/2 agitation. Will replace fentanyl and precedex GTT w/ Versed PRN push for agitation. - Will monitor mental status as patient weaned off sedation. Renal: - Consult: Dr. Leach - Cr stabilized. Continue to suspect likely acute tubular necrosis given metabolic acidosis. - Per nephrology, no HD indicated today or tomorrow. Trialysis catheter removed today. - Hypokalemia noted again on morning labs. Will replenish w/ 40mg kcl via NGT. - Continue to trend electrolytes. Cardiovascular: - Consult: Dr. Fitzgerald / Dr. Hogan - Goal MAP >65. Continue holding antihypertensives as needed. - Patient hypotensive overnight. Vasopressin and levophed restarted. Will attempt to titrate off of pressors as sedation is weaned. - Continue Hydrocortisone and Fludicortisone for shock. Plan to wean after pt has been stable off pressors for 24 hours. - LV Diastolic/Systolic Dysfunction - Currently holding Clopidogrel (Plavix). Will resume AC once PEG placed. GI prophylaxis with Ranitidine given interaction w/ propofol. - Hemoglobin goal >8.0. Pulm / Resp: - Acute on Chronic Hypoxic and Hypercapneic Respiratory Failure likely secondary to pneumonia. - Continue albuterol PRN. - CXR this AM unchanged. trach collar in place. - SPO2 goal 90%. Taper FiO2 and PEEP as able. - pH goal 7.2, allowing for permissive hypercapnia. Gastrointestinal: - Mild diarrhea noted in rectal tube. Possibly secondary to tube feeds. Infectious Disease: - Consult Dr. Khan - h/o HIV: continue HAART Therapy per ID - Leukocytosis trending upward slightly with tachycardia but without fever overnight. - Continue Meropenem for pseudomonas in sputum and Nafcillin for MSSA in single blood culture per ID service. -must rule out fungemia as the patient is persistently in shock and on chronic steroids, which may also suppress febrile response. -Will re-send blood culture today. Integumentary: - surgery consulted for sacral decubitus ulcer; no intervention indicated. FEN: -Tube Feed per dietary. Plan for PEG placement after this weekend. Prophylaxis: -DVT: Heparin SQ -GI: Ranitidine Code Status: - DNR Dispo: - continue to observe in ICU. - ongoing GOC conversation with the patient's family Visit type - Emergency Visit Emergency Visit: Yes ED Registration Date: 08/08/18 Care time: The patient presented to the Emergency Department on the above date and was hospitalized for further evaluation of their emergent condition. - New Patient This patient is new to me today: No - Critical Care Critical Care patient: Yes Total Critical Care Time (in minutes): 40 Critical Care Statement: The care of this patient involved high complexity decision making to prevent further life threatening deterioration of the patient 's condition and/or to evaluate & treat vital organ system(s) failure or risk of failure. - Discharge Referral Referred to [facility] No
[2018-09-04] MEDS: FENTANYL INJECTION 500 MCG in DEXTROSE 5%-WATER - 90 ML IVPB SCH ×2 (11:00→20:42)
[2018-09-04] MEDS: VASOPRESSIN 50 UNITS in SODIUM CHLORIDE 97.5 ML IVPB SCH (12:25)
[2018-09-04] MEDS: ZINC OXIDE 20% TOPICAL OINTMENT 454 GM JAR TP SCH ×3 (13:33→21:27)
--- NOTE | 2018-09-04 13:53 | PN ---
Progress Note (short form) - Note Progress Note: covering dr bowser Problems 1. KRISTIAN 2. Hyperkalemia 3. HIV 4. hyponatremia 5. altered mental status 6. pulm HTN 7. htn 8. pvd 9. resp acidosis 10. resp failure requiring intubation Current Medications Abacavir/Dolutegravir/Lamivudine (Triumeq (Non-Formulary)) 1 each PO DAILY ALYSON Last Admin: 09/04/18 09:14 Dose: 1 each Acetaminophen (Tylenol Oral Solution -) 1,000 mg PO Q6H PRN PRN Reason: FEVER Last Admin: 08/27/18 02:28 Dose: 1,000 mg Chlorhexidine Gluconate (Peridex -) 15 ml MM BID ALYSON Last Admin: 09/04/18 09:14 Dose: 15 ml Fludrocortisone Acetate (Florinef -) 0.05 mg NGT DAILY AL[facility]ON Last Admin: 09/04/18 09:14 Dose: 0.05 mg Heparin Sodium (Porcine) (Heparin -) 5,000 unit SQ TID ALYSON Last Admin: 09/04/18 13:35 Dose: 5,000 unit Hydrocortisone Sodium Succinate (Solu-Cortef -) 100 mg IVPUSH Q8H-IV ALYSON Last Admin: 09/04/18 09:13 Dose: 100 mg IV Flush (Triple Lumen Flush) 4 ml IVPUSH PRN PRN PRN Reason: Protocol IV Flush (Triple Lumen Flush) 4 ml IVPUSH BID ALYSON Last Admin: 09/04/18 09:14 Dose: 4 ml IV Flush (Triple Lumen Flush) 4 ml IVPUSH PRN PRN PRN Reason: Protocol Nafcillin Sodium 2 gm/ (Dextrose) 100 mls @ 100 mls/hr IVPB Q4H-IV ALYSON; Protocol Last Admin: 09/04/18 13:34 Dose: 100 mls/hr Meropenem 500 mg/ Dextrose 100 mls @ 200 mls/hr IVPB Q8H-IV ALYSON Last Admin: 09/04/18 09:13 Dose: 200 mls/hr Vasopressin 50 units/ Sodium (Chloride) 100 mls @ 4 mls/hr IVPB ASDIR ALYSON; Protocol Last Admin: 09/04/18 12:25 Dose: Not Given Norepinephrine Bitartrate 8, (000 mcg/ Sodium Chloride) 500 mls @ 18.75 mls/hr IV TITR ALYSON; Protocol Last Titration: 09/04/18 06:33 Dose: 3 mcg/min, 11.25 mls/hr Dexmedetomidine HCl 200 mcg/ (Sodium Chloride) 50 mls @ 3.93 mls/hr IVPB TITR ALYSON; Protocol Last Titration: 09/04/18 06:34 Dose: 0.35 mcg/kg/hr, 7 mls/hr Fentanyl 500 mcg/ Dextrose 100 mls @ 0.4 mls/hr IVPB TITR ALYSON; Protocol Last Titration: 09/04/18 04:41 Dose: 100 mcg/hr, 20 mls/hr Midazolam HCl (Versed -) 2 mg IVPUSH Q2H PRN PRN Reason: AGITATION Multi-Ingredient Ointment (Zinc Oxide 20% Topical Oint) 1 gm TP QID ALYSON Last Admin: 09/04/18 13:33 Dose: 1 applic Nystatin (Nystop Powder -) 1 applic TP QID [facility] Last Admin: 09/04/18 13:34 Dose: 1 applic Potassium Chloride (K-Dur -) 40 meq PO DAILY ALYSON Ranitidine HCl (Zantac Oral Solution -) 150 mg NGT BID [facility] Last Admin: 09/04/18 09:13 Dose: 150 mg Last Vital Signs Temp Pulse Resp BP Pulse Ox 98 F 122 H 28 H 130/69 94 L 09/04/18 10:00 09/04/18 12:25 09/04/18 12:00 09/04/18 12:25 09/04/18 10:00 on vent sedated/unresponsive on vent Lungs vented sounds Heart tachy on monitor Abd soft Ext CBC, BMP 09/03/18 05:30 09/03/18 05:30 IMP Prerenal azotemia Hyponatremia Hypokalemia anemia leukocytosis Acute on Chronic Hypoxic and Hypercapneic Respiratory Failure/Acute COPD Exacerbation S/P Trach 09/02/2018 Plan- i expect she will need hd again no indication for hd today or anticipated tomorrow
--- NOTE | 2018-09-04 14:49 | PN ---
Progress Note, Physician History of Present Illness: Remains sedated on ventilator support, tracheostomy placed, now on levophed and vasopressin. - Current Medication List Current Medications: Active Medications Abacavir/Dolutegravir/Lamivudine (Triumeq (Non-Formulary)) 1 each PO DAILY [facility] Last Admin: 09/04/18 09:14 Dose: 1 each Acetaminophen (Tylenol Oral Solution -) 1,000 mg PO Q6H PRN PRN Reason: FEVER Last Admin: 08/27/18 02:28 Dose: 1,000 mg Chlorhexidine Gluconate (Peridex -) 15 ml MM BID [facility] Last Admin: 09/04/18 09:14 Dose: 15 ml Fludrocortisone Acetate (Florinef -) 0.05 mg NGT DAILY [facility] Last Admin: 09/04/18 09:14 Dose: 0.05 mg Heparin Sodium (Porcine) (Heparin -) 5,000 unit SQ TID [facility] Last Admin: 09/04/18 13:35 Dose: 5,000 unit Hydrocortisone Sodium Succinate (Solu-Cortef -) 100 mg IVPUSH Q8H-IV [facility] Last Admin: 09/04/18 09:13 Dose: 100 mg IV Flush (Triple Lumen Flush) 4 ml IVPUSH PRN PRN PRN Reason: Protocol IV Flush (Triple Lumen Flush) 4 ml IVPUSH BID [facility] Last Admin: 09/04/18 09:14 Dose: 4 ml IV Flush (Triple Lumen Flush) 4 ml IVPUSH PRN PRN PRN Reason: Protocol Nafcillin Sodium 2 gm/ (Dextrose) 100 mls @ 100 mls/hr IVPB Q4H-IV [facility]; Protocol Last Admin: 09/04/18 13:34 Dose: 100 mls/hr Meropenem 500 mg/ Dextrose 100 mls @ 200 mls/hr IVPB Q8H-IV [facility] Last Admin: 09/04/18 09:13 Dose: 200 mls/hr Vasopressin 50 units/ Sodium (Chloride) 100 mls @ 4 mls/hr IVPB ASDIR [facility]; Protocol Last Admin: 09/04/18 12:25 Dose: Not Given Norepinephrine Bitartrate 8, (000 mcg/ Sodium Chloride) 500 mls @ 18.75 mls/hr IV TITR [facility]; Protocol Last Titration: 09/04/18 06:33 Dose: 3 mcg/min, 11.25 mls/hr Dexmedetomidine HCl 200 mcg/ (Sodium Chloride) 50 mls @ 3.93 mls/hr IVPB TITR [facility]; Protocol Last Titration: 09/04/18 06:34 Dose: 0.35 mcg/kg/hr, 7 mls/hr Fentanyl 500 mcg/ Dextrose 100 mls @ 0.4 mls/hr IVPB TITR [facility]; Protocol Last Titration: 09/04/18 04:41 Dose: 100 mcg/hr, 20 mls/hr Midazolam HCl (Versed -) 2 mg IVPUSH Q2H PRN PRN Reason: AGITATION Multi-Ingredient Ointment (Zinc Oxide 20% Topical Oint) 1 gm TP QID [facility] Last Admin: 09/04/18 13:33 Dose: 1 applic Nystatin (Nystop Powder -) 1 applic TP QID [facility] Last Admin: 09/04/18 13:34 Dose: 1 applic Potassium Chloride (K-Dur -) 40 meq PO DAILY [facility] Ranitidine HCl (Zantac Oral Solution -) 150 mg NGT BID [facility] Last Admin: 09/04/18 09:13 Dose: 150 mg - Objective Vital Signs: Vital Signs Temperature 98 F 09/04/18 10:00 Pulse Rate 122 H 09/04/18 12:25 Respiratory Rate 28 H 09/04/18 12:00 Blood Pressure 130/69 09/04/18 12:25 O2 Sat by Pulse Oximetry (%) 94 L 09/04/18 10:00 HENT: Yes: Other (Tracheostomy) Cardiovascular: Yes: Tachycardia Respiratory: Yes: Mechanically Ventilated Gastrointestinal: Yes: Normal Bowel Sounds, Soft Edema: Yes Labs: CBC, BMP 09/04/18 05:30 09/04/18 05:30 INR, PTT INR 1.18 (0.83-1.09) H 09/02/18 05:30 Problem List - Problems (1) Altered mental status, unspecified Code(s): R41.82 - ALTERED MENTAL STATUS, UNSPECIFIED Qualifiers: Altered mental status type: somnolence Qualified Code(s): R40.0 - Somnolence (2) CHF (congestive heart failure) Code(s): I50.9 - HEART FAILURE, UNSPECIFIED Qualifiers: Heart failure type: diastolic Heart failure chronicity: chronic Qualified Code(s): I50.32 - Chronic diastolic (congestive) heart failure (3) COPD with acute exacerbation Code(s): J44.1 - CHRONIC OBSTRUCTIVE PULMONARY DISEASE W (ACUTE) EXACERBATION (4) Elevated troponin I level Code(s): R74.8 - ABNORMAL LEVELS OF OTHER SERUM ENZYMES (5) Respiratory acidosis Code(s): E87.2 - ACIDOSIS (6) CAD (coronary artery disease) Code(s): I25.10 - ATHSCL HEART DISEASE OF [place] CORONARY ARTERY W/O ANG PCTRS Qualifiers: Coronary Disease-Associated Artery/Lesion type: [place] artery [place] vs. transplanted heart: [place] heart Associated angina: without angina Qualified Code(s): I25.10 - Atherosclerotic heart disease of [place] coronary artery without angina pectoris (7) Asymptomatic cholelithiasis Code(s): K80.20 - CALCULUS OF GALLBLADDER W/O CHOLECYSTITIS W/O OBSTRUCTION (8) Cor pulmonale, chronic Code(s): I27.81 - COR PULMONALE (CHRONIC) (9) HIV Code(s): Z21 - ASYMPTOMATIC HUMAN IMMUNODEFICIENCY VIRUS INFECTION STATUS (10) HTN (hypertension) Code(s): I10 - ESSENTIAL (PRIMARY) HYPERTENSION Qualifiers: Hypertension type: essential hypertension Qualified Code(s): I10 - Essential (primary) hypertension (11) Hyperlipidemia Code(s): E78.5 - HYPERLIPIDEMIA, UNSPECIFIED Qualifiers: Hyperlipidemia type: pure hypercholesterolemia Qualified Code(s): E78.00 - Pure hypercholesterolemia, unspecified; E78.0 - Pure hypercholesterolemia (12) PVD (peripheral vascular disease) Code(s): I73.9 - PERIPHERAL VASCULAR DISEASE, UNSPECIFIED (13) S/P CABG (coronary artery bypass graft) Code(s): Z95.1 - PRESENCE OF AORTOCORONARY BYPASS GRAFT Assessment/Plan Echo: 07/06/2018 Mod cLVH with preserved LV fxn, mod-severe RITIKA, severe TR, RVSP >60, RV volume overload with mod decreased RV fxn 1. Acute on chronic hypercapneic and hypoxemic respiratory failure on post tracheostomy 09/02/2018 on mechanical ventilation 2. Acute exacerbation of chronic obstructive pulmonary disease, PNA with MSSA septic shock 3. Right Heart Failure with Severe Pulmonary HTN 4. Acute on chronic class I-II NYHA classification LV failure related to diastolic dysfunction, resolving 5. CAD post CABG with evidence of demand ischemia angina pectoris 6. HTN 7. Hypercholesterolemia 8. PAD post SFA stent 9. Acute on CKD with hyperkalemia referable to hemodynamic alterations and ATN on HD 10. Toxic metabolic encephelopathy, persistent 11. HIV and Hepatitis C 12. Cholelithiasis PLAN: 1. Attempt wean Levophed and vasopressin to maintain MAP >65 2. Hold Losartan, Carvedilol, Hydralazine pending hemodynamics stability 3. Resume Plavix 75 qd once invasive procedures performed 4. IV stress-dosed steroid and bronchodilator, taper FiO2, PEEP to keep SpO2 >90 %, replete K 5. Antibiotic course per repeat C&S 6. Overall poor prognosis, plan for PEG insertion 7. Enteral feeds, DVT/GI prophylaxis 8. HD per renal, transfuse pRBC to maintain Hgb>8.0
[2018-09-04] MEDS: MIDAZOLAM HCL 2 MG/2 ML SINGLE DOSE VIAL IVPUSH PRN ×2 (15:00→17:31)
[2018-09-04] MEDS: NOREPINEPHRINE BITARTRATE 8,000 MCG in SODIUM CHLORIDE 492 ML IV SCH (17:32)
[2018-09-04] MEDS ORDERED: POTASSIUM CHLORIDE ORAL LIQUID 20 MEQ/15 ML PO ONE (18:25)
[2018-09-04] MEDS: DEXMEDETOMIDINE HCL 200 MCG in SODIUM CHLORIDE 48 ML IVPB SCH (20:28)
--- NOTE | 2018-09-04 21:48 | PN ---
Progress Note, Physician - Current Medication List Current Medications: Active Medications Abacavir/Dolutegravir/Lamivudine (Triumeq (Non-Formulary)) 1 each PO DAILY [facility] Last Admin: 09/04/18 09:14 Dose: 1 each Acetaminophen (Tylenol Oral Solution -) 1,000 mg PO Q6H PRN PRN Reason: FEVER Last Admin: 08/27/18 02:28 Dose: 1,000 mg Chlorhexidine Gluconate (Peridex -) 15 ml MM BID [facility] Last Admin: 09/04/18 21:27 Dose: 15 ml Fludrocortisone Acetate (Florinef -) 0.05 mg NGT DAILY [facility] Last Admin: 09/04/18 09:14 Dose: 0.05 mg Heparin Sodium (Porcine) (Heparin -) 5,000 unit SQ TID [facility] Last Admin: 09/04/18 21:26 Dose: 5,000 unit Hydrocortisone Sodium Succinate (Solu-Cortef -) 100 mg IVPUSH Q8H-IV [facility] Last Admin: 09/04/18 17:30 Dose: 100 mg IV Flush (Triple Lumen Flush) 4 ml IVPUSH PRN PRN PRN Reason: Protocol IV Flush (Triple Lumen Flush) 4 ml IVPUSH BID [facility] Last Admin: 09/04/18 09:14 Dose: 4 ml IV Flush (Triple Lumen Flush) 4 ml IVPUSH PRN PRN PRN Reason: Protocol Nafcillin Sodium 2 gm/ (Dextrose) 100 mls @ 100 mls/hr IVPB Q4H-IV [facility]; Protocol Last Admin: 09/04/18 21:26 Dose: 100 mls/hr Meropenem 500 mg/ Dextrose 100 mls @ 200 mls/hr IVPB Q8H-IV [facility] Last Admin: 09/04/18 17:31 Dose: 200 mls/hr Vasopressin 50 units/ Sodium (Chloride) 100 mls @ 4 mls/hr IVPB ASDIR [facility]; Protocol Last Admin: 09/04/18 12:25 Dose: Not Given Norepinephrine Bitartrate 8, (000 mcg/ Sodium Chloride) 500 mls @ 18.75 mls/hr IV TITR [facility]; Protocol Last Admin: 09/04/18 17:32 Dose: Not Given Dexmedetomidine HCl 200 mcg/ (Sodium Chloride) 50 mls @ 3.93 mls/hr IVPB TITR [facility]; Protocol Last Admin: 09/04/18 20:28 Dose: Not Given Fentanyl 500 mcg/ Dextrose 100 mls @ 0.4 mls/hr IVPB TITR [facility]; Protocol Last Admin: 09/04/18 20:42 Dose: Not Given Midazolam HCl (Versed -) 2 mg IVPUSH Q2H PRN PRN Reason: AGITATION Last Admin: 09/04/18 17:31 Dose: 2 mg Multi-Ingredient Ointment (Zinc Oxide 20% Topical Oint) 1 gm TP QID [facility] Last Admin: 09/04/18 21:27 Dose: 1 applic Nystatin (Nystop Powder -) 1 applic TP QID [facility] Last Admin: 09/04/18 21:27 Dose: 1 applic Potassium Chloride (K-Dur -) 40 meq PO DAILY [facility] Ranitidine HCl (Zantac Oral Solution -) 150 mg NGT BID [facility] Last Admin: 09/04/18 21:27 Dose: 150 mg - Objective Vital Signs: Vital Signs Temperature 97.9 F 09/04/18 20:00 Pulse Rate 121 H 09/04/18 20:00 Respiratory Rate 35 H 09/04/18 20:48 Blood Pressure 87/71 L 09/04/18 20:00 O2 Sat by Pulse Oximetry (%) 94 L 09/04/18 10:00 Labs: CBC, BMP 09/04/18 05:30 09/04/18 05:30 INR, PTT INR 1.18 (0.83-1.09) H 09/02/18 05:30 Problem List - Problems (1) Altered mental status, unspecified Code(s): R41.82 - ALTERED MENTAL STATUS, UNSPECIFIED Qualifiers: Altered mental status type: somnolence Qualified Code(s): R40.0 - Somnolence (2) CHF (congestive heart failure) Code(s): I50.9 - HEART FAILURE, UNSPECIFIED Qualifiers: Heart failure type: diastolic Heart failure chronicity: chronic Qualified Code(s): I50.32 - Chronic diastolic (congestive) heart failure (3) COPD with acute exacerbation Code(s): J44.1 - CHRONIC OBSTRUCTIVE PULMONARY DISEASE W (ACUTE) EXACERBATION (4) Elevated troponin I level Code(s): R74.8 - ABNORMAL LEVELS OF OTHER SERUM ENZYMES (5) Sepsis Code(s): A41.9 - SEPSIS, UNSPECIFIED ORGANISM (6) HIV Code(s): Z21 - ASYMPTOMATIC HUMAN IMMUNODEFICIENCY VIRUS INFECTION STATUS (7) HTN (hypertension) Code(s): I10 - ESSENTIAL (PRIMARY) HYPERTENSION Qualifiers: Hypertension type: essential hypertension Qualified Code(s): I10 - Essential (primary) hypertension (8) Hyperlipidemia Code(s): E78.5 - HYPERLIPIDEMIA, UNSPECIFIED Qualifiers: Hyperlipidemia type: pure hypercholesterolemia Qualified Code(s): E78.00 - Pure hypercholesterolemia, unspecified; E78.0 - Pure hypercholesterolemia
--- NOTE | 2018-09-05 00:30 | CONS ---
DATE OF CONSULTATION: DATE OF SERVICE: 09/04/2018 Patient is a 67-year-old female with multiple medical problems including COPD, CHF, PVV on aspirin and Plavix prior to this admission, hypertension, hyperlipidemia, HIV with an undetectable load, cervical cancer status post radiation, bypass surgery, lower extremity stents, hepatitis C status post treatment. She resides at [facility] and has previously been hospitalized here for CHF exacerbation and altered mental status. During this admission for CHF exacerbation, she was intubated and has had a prolonged ICU stay. Her course was complicated by Staphylococcus aureus and pseudomonas infection as well as acute renal failure. She has been on vasopressor support. In addition to that had a tracheostomy done for respiratory failure. She has been fed by NG tube. In addition, she has also received dialysis. Consultation is for placement of a percutaneous gastrostomy tube. Patient has her eyes open; however, only responds to painful stimuli. This HPI is strictly obtained from the chart. PAST MEDICAL AND SURGICAL HISTORY: As listed in the HPI. ALLERGIES: ASPIRIN. SOCIAL AND FAMILY HISTORY: From the chart again, was a previous smoker and quit in 2019, in May. HOME MEDICATIONS: Reviewed and include Neurontin, Ventolin, Coreg, Cozaar, Narcan, acetaminophen, vitamin D, Fosamax, saline, Triumeq, aspirin, calcium, Plavix, Benadryl, Lexapro, iron, Advair, multivitamin, Nicotrol, Protonix, Ranexa, simvastatin, Apresoline, MS Contin, Lasix, and spironolactone. REVIEW OF SYSTEMS: Unable to obtain the review of systems secondary to her physical state. PHYSICAL EXAMINATION: Vital Signs: Temperature 97, pulse 121, blood pressure 86/63, respiratory rate 37. General: No acute distress, on the ventilator. Cardiovascular: S1, S2. Lungs: Bilaterally clear anteriorly with coarse breath sounds and mechanical breath sounds. Abdomen: Nontender. Appears to have some flank dullness. Extremities: Lower extremities with some mild edema. LABORATORY: White blood cell count is 28, hemoglobin 8.2, hematocrit 24, MCV 87, platelet count of 173. INR 1.1. Sodium 127, potassium 3.3, BUN 72, creatinine 3.8, glucose of 154, calcium 7.9. Total bilirubin 3.2. There has been no abdominal imaging during this admission. She did have a chest x-ray on the 27th, which did not reveal any significant changes. Microbiology: She has a urine culture with yeast organisms, sputum with pseudomonas and stool cultures were negative. She also had blood cultures positive for staph and a urine culture positive for Escherichia coli, Klebsiella pneumonia and Enterococcus faecalis. IMPRESSION: The patient is a 67-year-old female with multiple medical problems who now has respiratory failure with a tracheostomy and still requires pressor support to maintain her blood pressure. RECOMMENDATIONS: Considering the patient's multiple comorbidities and current clinical state, I recommend a palliative care evaluation and would prefer to hold off on any invasive procedures. I have contacted and left a message with the daughter, regarding her wishes for a feeding tube versus comfort care. I will follow up with her. I would also order abdominal ultrasound that can be done at the bedside. It appears that there was flank dullness on the limited examination to rule out any ascites or anasarca. At this time, continue current supportive management, NG tube feeds, pressor support, and acute care. This patient will be followed by the GI Service. DO SRUTHI BURGESS/[id number]
[2018-09-05] MEDS ORDERED: PT OWN MED DRAWER 7, Y5N ONE ×4 (02:37→21:07)
[2018-09-05] MEDS: NAFCILLIN - 2 GM in DEXTROSE 5%-WATER - 100 ML IVPB SCH ×6 (02:39→21:09)
[2018-09-05] MEDS: MEROPENEM 500 MG in DEXTROSE 5%-WATER 100 ML IVPB SCH ×3 (02:39→17:23)
[2018-09-05] MEDS: HYDROCORTISONE SOD SUCCINATE 100 MG/2 ML VIAL IVPUSH SCH ×3 (02:39→17:23)
[2018-09-05] MEDS: MIDAZOLAM HCL 2 MG/2 ML SINGLE DOSE VIAL IVPUSH PRN ×2 (03:00→12:27)
[2018-09-05] MEDS: BANATROL PLUS POWDER PACKET PO SCH ×3 (05:53→21:09)
[2018-09-05] MEDS: HEPARIN NA (PORCINE) 5,000 UNITS/ML 1ML VIAL SQ SCH ×3 (05:53→21:09)
[2018-09-05 06:27] LABS: HEMATOCRIT 24.5 % (32.4-45.2); HEMOGLOBIN 8.4 GM/dL (10.7-15.3); MCH 29.3 pg (25.7-33.7); MCHC 34.1 g/dl (32.0-36.0); MEAN PLT VOLUME 8.9 fl (7.5-11.1); PLATELET COUNT 180 K/MM3 (134-434); RBC 2.85 M/mm3 (3.60-5.2); WHITE BLOOD COUNT 25.5 K/mm3 (4.0-10.0)
[2018-09-05 07:20] LABS: ALBUMIN 1.2 g/dl (3.4-5.0); ALK PHOS 97 U/L (45-117); ANION GAP 17 MMOL/L (8-16); BILIRUBIN,TOTAL 2.8 mg/dL (0.2-1); BLOOD UREA NITROGEN 77 mg/dL (7-18); CALCIUM 7.8 mg/dL (8.5-10.1); CHLORIDE 92 mmol/L (98-107); CO2 18 mmol/L (21-32); CREATININE 3.9 mg/dL (0.55-1.3); GLUCOSE,RANDOM 118 mg/dL (74-106); MAGNESIUM 1.6 mg/dL (1.8-2.4); PHOSPHOROUS 8.3 mg/dL (2.5-4.9); SGOT/AST 25 U/L (15-37); SGPT/ALT 9 U/L (13-61); SODIUM 127 mmol/L (136-145); TOT PROT 5.1 g/dl (6.4-8.2)
[2018-09-05] MEDS ORDERED: MAGNESIUM SULF 50% (8.12 MEQ/2 ML-1 GM VIAL) IVPB ONE (07:56)
[2018-09-05] MEDS: KCL 10 MEQ IVPB 10 MEQ/100 ML INFUS.BAG IVPB SCH ×3 (10:01→13:05)
[2018-09-05] MEDS: POTASSIUM CHLORIDE TABS 20 MEQ TABLET.ER (FP) PO SCH (10:02)
[2018-09-05] MEDS: RANITIDINE HCL 150 MG/10 ML UNIT-DOSE NGT SCH ×2 (10:02→21:10)
[2018-09-05] MEDS: CHLORHEXIDINE GLUCONATE 0.12% 15ML CUP MM SCH ×2 (10:03→21:10)
[2018-09-05] MEDS: NYSTATIN POWDER 100,000 UNITS/GM - 15 GM TOPICAL POWDER TP SCH ×4 (10:03→21:10)
[2018-09-05] MEDS: FLUDROCORTISONE ACETATE 0.1 MG TABLET (FP) NGT SCH (10:03)
[2018-09-05] MEDS: ZINC OXIDE 20% TOPICAL OINTMENT 454 GM JAR TP SCH ×4 (10:04→21:10)
[2018-09-05] MEDS: TRIPLE LUMEN FLUSH 4 ML ML IVPUSH SCH (10:04)
[2018-09-05] MEDS: ABACAVIR/DOLUTEGRAVIR/LAMIVUDI (TRIUMEQ) TABLET -NF PO SCH (10:04)
[2018-09-05] MEDS ORDERED: ALPRAZolam 2 MG TABLET PO PRN ×2 (12:49→17:03)
--- NOTE | 2018-09-05 13:03 | PN ---
Teaching Attending Note Name of Resident: Andrez Tolentino ATTENDING PHYSICIAN STATEMENT I saw and evaluated the patient. I reviewed the resident's note and discussed the case with the resident. I agree with the resident's findings and plan as documented. SUBJECTIVE: Pt seen and examined in the ICU. Pressors off this AM. Remains on low dose precedex for tachypnea. OBJECTIVE: Vital Signs Period Temp Pulse Resp BP Sys/Buck Pulse Ox Last 24 Hr 97.6 F-98.6 F 110-126 20-37 85-112/59-78 94-98 Intake & Output 09/02/18 09/03/18 09/04/18 09/05/18 23:59 23:59 23:59 23:59 Intake Total 2138.4 2608 2380 595 Output Total 150 180 690 250 Balance 1988.4 2428 1690 345 Weight 78.046 kg 78.653 kg 78.517 kg 78.97 kg Gen: vented, awake but not following commands Heart: RRR Lung: scattered rhonchi Abd: soft, nontender Ext: no edema CBC, BMP 09/05/18 05:30 09/05/18 05:30 Active Medications Abacavir/Dolutegravir/Lamivudine (Triumeq (Non-Formulary)) 1 each PO DAILY [facility] Last Admin: 09/05/18 10:04 Dose: 1 each Acetaminophen (Tylenol Oral Solution -) 1,000 mg PO Q6H PRN PRN Reason: FEVER Last Admin: 08/27/18 02:28 Dose: 1,000 mg Alprazolam (Xanax -) 2 mg PO Q12H PRN PRN Reason: ANXIETY Chlorhexidine Gluconate (Peridex -) 15 ml MM BID [facility] Last Admin: 09/05/18 10:03 Dose: 15 ml Fludrocortisone Acetate (Florinef -) 0.05 mg NGT DAILY [facility] Last Admin: 09/05/18 10:03 Dose: 0.05 mg Heparin Sodium (Porcine) (Heparin -) 5,000 unit SQ TID [facility] Last Admin: 09/05/18 05:53 Dose: 5,000 unit Hydrocortisone Sodium Succinate (Solu-Cortef -) 100 mg IVPUSH Q8H-IV [facility] Last Admin: 09/05/18 10:03 Dose: 100 mg IV Flush (Triple Lumen Flush) 4 ml IVPUSH PRN PRN PRN Reason: Protocol Nafcillin Sodium 2 gm/ (Dextrose) 100 mls @ 100 mls/hr IVPB Q4H-IV [facility]; Protocol Last Admin: 09/05/18 10:01 Dose: 100 mls/hr Meropenem 500 mg/ Dextrose 100 mls @ 200 mls/hr IVPB Q8H-IV [facility] Last Admin: 09/05/18 10:02 Dose: 200 mls/hr Midazolam HCl (Versed -) 2 mg IVPUSH Q2H PRN PRN Reason: AGITATION Last Admin: 09/05/18 12:27 Dose: 2 mg Multi-Ingredient Ointment (Zinc Oxide 20% Topical Oint) 1 gm TP QID [facility] Last Admin: 09/05/18 10:04 Dose: 1 applic Nystatin (Nystop Powder -) 1 applic TP QID [facility] Last Admin: 09/05/18 10:03 Dose: 1 applic Potassium Chloride (K-Dur -) 40 meq PO DAILY [facility] Last Admin: 09/05/18 10:02 Dose: 40 meq Ranitidine HCl (Zantac Oral Solution -) 150 mg NGT BID [facility] Last Admin: 09/05/18 10:02 Dose: 150 mg ASSESSMENT AND PLAN: Acute on Chronic Hypoxic and Hypercapneic Respiratory Failure s/p Tracheostomy Pneumonia Acute COPD Exacerbation Acute on Chronic Diastolic Heart Failure Severe Pulmonary HTN CAD s/p CABG Acute on Chronic Renal Failure requiring HD Hyponatremia HIV Hep C HTN Hypercholesterolemia PAD - continue antibiotics per ID - monitoring off pressors, maintain MAP >65 - monitor urine output, creatinine - taper off steroids - replete lytes - transition off precedex, can use benzos as needed - enteral feeds, will need PEG placement - DVT/GI prophylaxis - continue ICU monitoring critical care time spent in reviewing chart, evaluating patient and formulating plan 35 min
--- NOTE | 2018-09-05 16:15 | PN ---
Progress Note, Physician History of Present Illness: tracheostomy - Current Medication List Current Medications: Active Medications Abacavir/Dolutegravir/Lamivudine (Triumeq (Non-Formulary)) 1 each PO DAILY [facility] Last Admin: 09/05/18 10:04 Dose: 1 each Acetaminophen (Tylenol Oral Solution -) 1,000 mg PO Q6H PRN PRN Reason: FEVER Last Admin: 08/27/18 02:28 Dose: 1,000 mg Alprazolam (Xanax -) 2 mg PO Q12H PRN PRN Reason: ANXIETY Last Admin: 09/05/18 14:35 Dose: 2 mg Chlorhexidine Gluconate (Peridex -) 15 ml MM BID [facility] Last Admin: 09/05/18 10:03 Dose: 15 ml Fludrocortisone Acetate (Florinef -) 0.05 mg NGT DAILY [facility] Last Admin: 09/05/18 10:03 Dose: 0.05 mg Heparin Sodium (Porcine) (Heparin -) 5,000 unit SQ TID [facility] Last Admin: 09/05/18 14:35 Dose: 5,000 unit Hydrocortisone Sodium Succinate (Solu-Cortef -) 100 mg IVPUSH Q8H-IV [facility] Last Admin: 09/05/18 10:03 Dose: 100 mg IV Flush (Triple Lumen Flush) 4 ml IVPUSH PRN PRN PRN Reason: Protocol Nafcillin Sodium 2 gm/ (Dextrose) 100 mls @ 100 mls/hr IVPB Q4H-IV [facility]; Protocol Last Admin: 09/05/18 14:34 Dose: 100 mls/hr Meropenem 500 mg/ Dextrose 100 mls @ 200 mls/hr IVPB Q8H-IV [facility] Last Admin: 09/05/18 10:02 Dose: 200 mls/hr Midazolam HCl (Versed -) 2 mg IVPUSH Q2H PRN PRN Reason: AGITATION Last Admin: 09/05/18 12:27 Dose: 2 mg Multi-Ingredient Ointment (Zinc Oxide 20% Topical Oint) 1 gm TP QID [facility] Last Admin: 09/05/18 14:36 Dose: 1 applic Nystatin (Nystop Powder -) 1 applic TP QID [facility] Last Admin: 09/05/18 14:35 Dose: 1 applic Potassium Chloride (K-Dur -) 40 meq PO DAILY [facility] Last Admin: 09/05/18 10:02 Dose: 40 meq Ranitidine HCl (Zantac Oral Solution -) 150 mg NGT BID [facility] Last Admin: 09/05/18 10:02 Dose: 150 mg - Objective Vital Signs: Vital Signs Temperature 97.8 F 09/05/18 10:00 Pulse Rate 122 H 09/05/18 12:00 Respiratory Rate 33 H 09/05/18 16:06 Blood Pressure 91/70 09/05/18 12:00 O2 Sat by Pulse Oximetry (%) 98 09/05/18 10:00 HENT: Yes: Atraumatic Neck: Yes: Other Cardiovascular: Yes: Regular Rate and Rhythm Respiratory: Yes: CTA Bilaterally Gastrointestinal: Yes: Normal Bowel Sounds Extremities: Yes: WNL Neurological: Yes: Alert, Oriented Labs: CBC, BMP 09/05/18 05:30 09/05/18 05:30 INR, PTT INR 1.18 (0.83-1.09) H 09/02/18 05:30 Problem List - Problems (1) Altered mental status, unspecified Code(s): R41.82 - ALTERED MENTAL STATUS, UNSPECIFIED Qualifiers: Altered mental status type: somnolence Qualified Code(s): R40.0 - Somnolence (2) COPD with acute exacerbation Assessment/Plan: steroids duo nebs INTUBATED Code(s): J44.1 - CHRONIC OBSTRUCTIVE PULMONARY DISEASE W (ACUTE) EXACERBATION (3) Elevated troponin I level Code(s): R74.8 - ABNORMAL LEVELS OF OTHER SERUM ENZYMES (4) Hyperkalemia Code(s): E87.5 - HYPERKALEMIA (5) COPD (chronic obstructive pulmonary disease) Code(s): J44.9 - CHRONIC OBSTRUCTIVE PULMONARY DISEASE, UNSPECIFIED Qualifiers: COPD type: COPD with acute lower respiratory infection Qualified Code(s): J44.0 - Chronic obstructive pulmonary disease with acute lower respiratory infection (6) HIV Code(s): Z21 - ASYMPTOMATIC HUMAN IMMUNODEFICIENCY VIRUS INFECTION STATUS (7) HTN (hypertension) Code(s): I10 - ESSENTIAL (PRIMARY) HYPERTENSION Qualifiers: Hypertension type: essential hypertension Qualified Code(s): I10 - Essential (primary) hypertension (8) Hyperlipidemia Code(s): E78.5 - HYPERLIPIDEMIA, UNSPECIFIED Qualifiers: Hyperlipidemia type: pure hypercholesterolemia Qualified Code(s): E78.00 - Pure hypercholesterolemia, unspecified; E78.0 - Pure hypercholesterolemia (9) PVD (peripheral vascular disease) Code(s): I73.9 - PERIPHERAL VASCULAR DISEASE, UNSPECIFIED (10) CHF (congestive heart failure) Code(s): I50.9 - HEART FAILURE, UNSPECIFIED Qualifiers: Heart failure type: diastolic Heart failure chronicity: chronic Qualified Code(s): I50.32 - Chronic diastolic (congestive) heart failure (11) Sepsis Code(s): A41.9 - SEPSIS, UNSPECIFIED ORGANISM (12) Respiratory acidosis Code(s): E87.2 - ACIDOSIS (13) Respiratory failure requiring intubation Code(s): J96.90 - RESPIRATORY FAILURE, UNSP, UNSP W HYPOXIA OR HYPERCAPNIA Assessment/Plan cc time in icu 35 min for peg placement family deciding
[2018-09-05] MEDS ORDERED: POTASSIUM CHLORIDE ORAL LIQUID 20 MEQ/15 ML NGT ONE (16:24)
[2018-09-05] MEDS ORDERED: FUROSEMIDE 40 MG/4 ML INJECTABLE VIAL IVPUSH ONE (16:25)
--- NOTE | 2018-09-05 16:26 | PN ---
Progress Note, Physician History of Present Illness: Pt seen and examined at bedside. She remains in the ICU. She is mechanically ventilated. - Current Medication List Current Medications: Active Medications Abacavir/Dolutegravir/Lamivudine (Triumeq (Non-Formulary)) 1 each PO DAILY [facility] Last Admin: 09/05/18 10:04 Dose: 1 each Acetaminophen (Tylenol Oral Solution -) 1,000 mg PO Q6H PRN PRN Reason: FEVER Last Admin: 08/27/18 02:28 Dose: 1,000 mg Alprazolam (Xanax -) 2 mg PO Q12H PRN PRN Reason: ANXIETY Last Admin: 09/05/18 14:35 Dose: 2 mg Chlorhexidine Gluconate (Peridex -) 15 ml MM BID [facility] Last Admin: 09/05/18 10:03 Dose: 15 ml Fludrocortisone Acetate (Florinef -) 0.05 mg NGT DAILY [facility] Last Admin: 09/05/18 10:03 Dose: 0.05 mg Heparin Sodium (Porcine) (Heparin -) 5,000 unit SQ TID [facility] Last Admin: 09/05/18 14:35 Dose: 5,000 unit Hydrocortisone Sodium Succinate (Solu-Cortef -) 100 mg IVPUSH Q8H-IV [facility] Last Admin: 09/05/18 10:03 Dose: 100 mg IV Flush (Triple Lumen Flush) 4 ml IVPUSH PRN PRN PRN Reason: Protocol Nafcillin Sodium 2 gm/ (Dextrose) 100 mls @ 100 mls/hr IVPB Q4H-IV [facility]; Protocol Last Admin: 09/05/18 14:34 Dose: 100 mls/hr Meropenem 500 mg/ Dextrose 100 mls @ 200 mls/hr IVPB Q8H-IV [facility] Last Admin: 09/05/18 10:02 Dose: 200 mls/hr Midazolam HCl (Versed -) 2 mg IVPUSH Q2H PRN PRN Reason: AGITATION Last Admin: 09/05/18 12:27 Dose: 2 mg Multi-Ingredient Ointment (Zinc Oxide 20% Topical Oint) 1 gm TP QID [facility] Last Admin: 09/05/18 14:36 Dose: 1 applic Nystatin (Nystop Powder -) 1 applic TP QID [facility] Last Admin: 09/05/18 14:35 Dose: 1 applic Potassium Chloride (K-Dur -) 40 meq PO DAILY [facility] Last Admin: 09/05/18 10:02 Dose: 40 meq Ranitidine HCl (Zantac Oral Solution -) 150 mg NGT BID [facility] Last Admin: 09/05/18 10:02 Dose: 150 mg - Objective Vital Signs: Vital Signs Temperature 97.8 F 09/05/18 10:00 Pulse Rate 122 H 09/05/18 12:00 Respiratory Rate 33 H 09/05/18 16:06 Blood Pressure 91/70 09/05/18 12:00 O2 Sat by Pulse Oximetry (%) 98 09/05/18 10:00 Constitutional: Yes: Calm Eyes: Yes: Conjunctiva Clear Neck: Yes: Other (trache) Cardiovascular: Yes: S1, S2 Respiratory: Yes: Mechanically Ventilated Gastrointestinal: Yes: Soft Genitourinary: Yes: Torres Present, Oliguria Musculoskeletal: Yes: Muscle Weakness Edema: Yes Edema: LUE: 1+, RUE: 1+, LLE: 1+, RLE: 1+ Neurological: Yes: Other (awake) Labs: CBC, BMP 09/05/18 05:30 09/05/18 05:30 INR, PTT INR 1.18 (0.83-1.09) H 09/02/18 05:30 - ....Imaging Chest X-ray: Report Reviewed Problem List - Problems (1) Acute renal failure Code(s): N17.9 - ACUTE KIDNEY FAILURE, UNSPECIFIED Qualifiers: Acute renal failure type: unspecified Qualified Code(s): N17.9 - Acute kidney failure, unspecified (2) Altered mental status, unspecified Code(s): R41.82 - ALTERED MENTAL STATUS, UNSPECIFIED Qualifiers: Altered mental status type: somnolence Qualified Code(s): R40.0 - Somnolence (3) CHF (congestive heart failure) Code(s): I50.9 - HEART FAILURE, UNSPECIFIED Qualifiers: Heart failure type: diastolic Heart failure chronicity: chronic Qualified Code(s): I50.32 - Chronic diastolic (congestive) heart failure (4) COPD with acute exacerbation Code(s): J44.1 - CHRONIC OBSTRUCTIVE PULMONARY DISEASE W (ACUTE) EXACERBATION (5) Hyperkalemia Code(s): E87.5 - HYPERKALEMIA Assessment/Plan Current Medications Generic Name Dose Route Start Last Admin Trade Name Freq PRN Reason Stop Dose Admin Abacavir/Dolutegravir/Lamivudine 1 each 08/10/18 14:00 09/05/18 10:04 Triumeq (Non-Formulary) PO 1 each DAILY [facility] Administration Acetaminophen 1,000 mg 08/16/18 16:11 08/27/18 02:28 Tylenol Oral Solution - PO 1,000 mg Q6H PRN Administration FEVER Alprazolam 2 mg 09/05/18 12:49 09/05/18 14:35 Xanax - PO 2 mg Q12H PRN Administration ANXIETY Chlorhexidine Gluconate 15 ml 08/17/18 22:00 09/05/18 10:03 Peridex - MM 15 ml BID [facility] Administration Fludrocortisone Acetate 0.05 mg 08/29/18 13:15 09/05/18 10:03 Florinef - NGT 0.05 mg DAILY [facility] Administration Heparin Sodium (Porcine) 5,000 unit 08/17/18 14:00 09/05/18 14:35 Heparin - SQ 5,000 unit TID [facility] Administration Hydrocortisone Sodium Succinate 100 mg 08/29/18 11:30 09/05/18 10:03 Solu-Cortef - IVPUSH 100 mg Q8H-IV [facility] Administration IV Flush 4 ml 08/23/18 11:37 Triple Lumen Flush IVPUSH PRN PRN Protocol Nafcillin Sodium 2 gm/ 100 mls @ 100 mls/hr 08/19/18 20:00 09/05/18 14:34 Dextrose IVPB 100 mls/hr Q4H-IV [facility] Administration Protocol Meropenem 500 mg/ Dextrose 100 mls @ 200 mls/hr 08/24/18 18:00 09/05/18 10:02 IVPB 200 mls/hr Q8H-IV [facility] Administration Midazolam HCl 2 mg 09/04/18 13:01 09/05/18 12:27 Versed - IVPUSH 2 mg Q2H PRN Administration AGITATION Multi-Ingredient Ointment 1 gm 09/04/18 13:17 09/05/18 14:36 Zinc Oxide 20% Topical Oint TP 1 applic QID [facility] Administration Nystatin 1 applic 09/03/18 18:00 09/05/18 14:35 Nystop Powder - TP 1 applic QID [facility] Administration Potassium Chloride 40 meq 09/05/18 10:00 09/05/18 10:02 K-Dur - PO 40 meq DAILY [facility] Administration Ranitidine HCl 150 mg 09/03/18 22:00 09/05/18 10:02 Zantac Oral Solution - NGT 150 mg BID [facility] Administration Impression 1. KRISTIAN 2. Hyperkalemia 3. HIV 4. hyponatremia 5. altered mental status 6. pulm HTN 7. htn 8. pvd 9. resp acidosis 10. resp failure requiring intubation Plan - hd cath removed - will give 40 mg of lasix - give another dose of potassium - repeat labs in am - monitor urine output and response to lasix - discussed with ICU team - vent support
--- NOTE | 2018-09-05 16:51 | PN ---
Progress Note, Physician History of Present Illness: 67yo F with multiple medical problems, including HTN, HLD, asthma/COPD, CHF, PVD on asa/plavix prior to admission, HIV (undetectable viral load recently), HepC s/p tx, cervical CA s/p radiation, s/p CABG and LE stents, who has been hospitalized for the last 4 weeks, initially admitted from [facility] after previous hospitalization for CHF exacerbation, with complaints of poor po intake and altered mental status. She was intubated within days of admission, and has been in the ICU. She also had acute renal failure, and cultures have been positive from sputum, blood and urine (yeast last 2 times) for Staph aureus , Pseudomonas, Serratia; she is on antibiotics per ID. She had been on norepinephrine and vasopressin for pressure support, which are now off since yesterday. She had tracheostomy few days ago. She has been getting tube feeds via NGT. She has Torres in place with oliguria, and had been dialyzed by renal. She also has a rectal tube with diarrheal output and constant leakage around it. Over the course of her stay, she has developed stage 2 anorectal/perineal and local skin breakdown/erosion, and nursing also noted blackening skin over the sacrococcygeal region. They have had great difficulty controlling liquid stool leakage around the Flexiseal recently. Sedation is currently only low- dose precedex. She is seen and examined in the ICU and appears a little more awake, though not responsive, other than to move some to painful stimuli. Her eyes are open. Daughter Rosalinda was present earlier, and indicated that she is not the patient' s HCP; daughter Netta is. Nursing has been using paste of zinc oxide and antifungal cream on the open skin areas and trying to position her off of midline, but she tends to have problems with respiration when up entirely on her side. Per ICU team, flexiseal was removed and replaced - no solid stool identified in vault behind it; request has been made for possibly a higher level pressure relief surface/bed. - Current Medication List Current Medications: Active Medications Abacavir/Dolutegravir/Lamivudine (Triumeq (Non-Formulary)) 1 each PO DAILY [facility] Last Admin: 09/05/18 10:04 Dose: 1 each Acetaminophen (Tylenol Oral Solution -) 1,000 mg PO Q6H PRN PRN Reason: FEVER Last Admin: 08/27/18 02:28 Dose: 1,000 mg Alprazolam (Xanax -) 2 mg PO Q12H PRN PRN Reason: ANXIETY Last Admin: 09/05/18 14:35 Dose: 2 mg Chlorhexidine Gluconate (Peridex -) 15 ml MM BID [facility] Last Admin: 09/05/18 10:03 Dose: 15 ml Fludrocortisone Acetate (Florinef -) 0.05 mg NGT DAILY [facility] Last Admin: 09/05/18 10:03 Dose: 0.05 mg Heparin Sodium (Porcine) (Heparin -) 5,000 unit SQ TID [facility] Last Admin: 09/05/18 14:35 Dose: 5,000 unit Hydrocortisone Sodium Succinate (Solu-Cortef -) 100 mg IVPUSH Q8H-IV [facility] Last Admin: 09/05/18 10:03 Dose: 100 mg IV Flush (Triple Lumen Flush) 4 ml IVPUSH PRN PRN PRN Reason: Protocol Nafcillin Sodium 2 gm/ (Dextrose) 100 mls @ 100 mls/hr IVPB Q4H-IV [facility]; Protocol Last Admin: 09/05/18 14:34 Dose: 100 mls/hr Meropenem 500 mg/ Dextrose 100 mls @ 200 mls/hr IVPB Q8H-IV [facility] Last Admin: 09/05/18 10:02 Dose: 200 mls/hr Midazolam HCl (Versed -) 2 mg IVPUSH Q2H PRN PRN Reason: AGITATION Last Admin: 09/05/18 12:27 Dose: 2 mg Multi-Ingredient Ointment (Zinc Oxide 20% Topical Oint) 1 gm TP QID [facility] Last Admin: 09/05/18 14:36 Dose: 1 applic Nystatin (Nystop Powder -) 1 applic TP QID [facility] Last Admin: 09/05/18 14:35 Dose: 1 applic Potassium Chloride (K-Dur -) 40 meq PO DAILY [facility] Last Admin: 09/05/18 10:02 Dose: 40 meq Ranitidine HCl (Zantac Oral Solution -) 150 mg NGT BID [facility] Last Admin: 09/05/18 10:02 Dose: 150 mg - Objective Vital Signs: Vital Signs Temperature 97.8 F 09/05/18 10:00 Pulse Rate 121 H 09/05/18 14:00 Respiratory Rate 33 H 09/05/18 16:06 Blood Pressure 90/71 09/05/18 14:00 O2 Sat by Pulse Oximetry (%) 98 09/05/18 10:00 Vital Signs Period Temp Pulse Resp BP Sys/Buck Pulse Ox Last 24 Hr 97.6 F-98.6 F 110-126 20-37 85-106/59-78 94-98 Intake & Output 09/05/18 09/05/18 09/05/18 07:59 15:59 23:59 Intake Total 595 Output Total 250 Balance 345 Weight 174 lb 1.6 oz Intake: IV 45 Precedex - 200 Mcg In 45 Normal Saline - 48 ml @ 0 .2 MCG/KG/HR 3.93 mls/hr IVPB TITR [facility] Rx#: [id number] IVPB 200 Tube Feeding 280 Tube Irrigant 70 Output: Drainage 50 Flexiseal 50 Urine 200 Torres 200 Other: Voiding Method Indwelling Catheter Indwelling Catheter Bowel Movement Yes Weight Measurement Method Built in [facility] Constitutional: Yes: Well Nourished, No Distress, Calm Eyes: Yes: Conjunctiva Clear. No: Sclera Icterus HENT: Yes: Atraumatic, Normocephalic, Drooling, Other (NGT in place for feeds) Neck: Yes: Other (tracheostomy in place) Gastrointestinal: Yes: Soft, Distention (tympanic in upper abdomen), Hypoactive Bowel Sounds. No: Tenderness (difficult to tell, but not apparent) ...Rectal Exam: Yes: Other (puddle of liquid stool on pads around flexiseal, also with liquid stool coming down tubing; visible perirectal/perineal areas with white paste on, but irritation does look somewhat improved - per nurse, the eroded areas have been improving with barrier cream; difficult to visualize entire area - pt to be repositioned and cleaned up soon by nursing) Genitourinary: Yes: Torres Present, Oliguria. No: Hematuria Extremities: No: Cool, Cyanosis Edema: Yes Edema: LUE: 2+, RUE: 2+, LLE: 1+, RLE: 1+ Integumentary: Yes: Pressure Ulcer (sacral, perirectal). No: Jaundice Neurological: Yes: Unresponsive, Other (eyes open, moves to pain, opens mouth wide). No: Alert Labs: CBC, BMP 09/05/18 05:30 09/05/18 05:30 Problem List - Problems (1) Pressure injury of sacral region, unstageable Assessment/Plan: blackened, leathery skin directly overlies bone no indication for excision/debridement at this time try to keep area clean and DRY pt requires PRESSURE RELIEF entirely off of midline - should be positioned side- bo-alml-ow-side, up on alternating hip/shoulder, with repositioning at least every 2 hours recommend changing to higher level pressure-relief mattress/surface, as true pressure relief will be extremely difficult given pt's clinical issues (tube feeding and need for head of bed elevation, constant leakage from rectal tube) optimize nutritional status Code(s): L89.150 - PRESSURE ULCER OF SACRAL REGION, UNSTAGEABLE (2) Pressure ulcer of contiguous region involving back and buttock, stage 2 Assessment/Plan: anorectal and surrounding tissue excoriation, superficial erosion multifactorial - pressure as well as constant local contamination, presence of rectal tube - balloon may be producing pressure against local tissues as well rectal tube does not appear to be effectively evacuating all liquid stool, given constant leakage around it pt is poor candidate for GI diversion, overall prognosis poor DNR status ICU team considering PEG placement for TF protect open skin/tissues with combination paste of zinc oxide and antifungal powder - need barrier against constant stool evacuation reapply with every cleansing and as often as necessary to keep tissues coated very frequent changes of pads, try to keep area clean and as dry as possible complete pressure relief off area as outlined above Surgically, I have nothing significant to offer at this time. Will follow peripherally; please call with any questions or concerns. Discussed with ICU team - Dr. Parks This patient is critically ill. Time spent reviewing chart, examining patient, talking with providers and/or family and documentation is 35 minutes. Code(s): L89.42 - PRESSR ULCER OF CONTIG SITE OF BACK, BUTTOCK AND HIP, STG 2 Qualifiers: Laterality: unspecified laterality Qualified Code(s): L89.42 - Pressure ulcer of contiguous site of back, buttock and hip, stage 2 (3) CHF (congestive heart failure) Code(s): I50.9 - HEART FAILURE, UNSPECIFIED Qualifiers: Heart failure type: diastolic Heart failure chronicity: chronic Qualified Code(s): I50.32 - Chronic diastolic (congestive) heart failure (4) Respiratory failure requiring intubation Assessment/Plan: s/p tracheostomy Code(s): J96.90 - RESPIRATORY FAILURE, UNSP, UNSP W HYPOXIA OR HYPERCAPNIA (5) COPD (chronic obstructive pulmonary disease) Code(s): J44.9 - CHRONIC OBSTRUCTIVE PULMONARY DISEASE, UNSPECIFIED Qualifiers: COPD type: COPD with acute lower respiratory infection Qualified Code(s): J44.0 - Chronic obstructive pulmonary disease with acute lower respiratory infection (6) HIV Code(s): Z21 - ASYMPTOMATIC HUMAN IMMUNODEFICIENCY VIRUS INFECTION STATUS (7) HTN (hypertension) Code(s): I10 - ESSENTIAL (PRIMARY) HYPERTENSION Qualifiers: Hypertension type: essential hypertension Qualified Code(s): I10 - Essential (primary) hypertension (8) Hyperlipidemia Code(s): E78.5 - HYPERLIPIDEMIA, UNSPECIFIED Qualifiers: Hyperlipidemia type: pure hypercholesterolemia Qualified Code(s): E78.00 - Pure hypercholesterolemia, unspecified; E78.0 - Pure hypercholesterolemia (9) PVD (peripheral vascular disease) Code(s): I73.9 - PERIPHERAL VASCULAR DISEASE, UNSPECIFIED (10) Severe sepsis with septic shock Assessment/Plan: pressors off - may still be hypovolemic losing a lot of fluid from GI tract on ongoing basis Code(s): A41.9 - SEPSIS, UNSPECIFIED ORGANISM; R65.21 - SEVERE SEPSIS WITH SEPTIC SHOCK (11) Leukocytosis Code(s): D72.829 - ELEVATED WHITE BLOOD CELL COUNT, UNSPECIFIED Qualifiers: Leukocytosis type: bandemia Qualified Code(s): D72.825 - Bandemia (12) Acute renal failure on dialysis Assessment/Plan: pt has been dialyzed by nephrology previously; they are following Code(s): N17.9 - ACUTE KIDNEY FAILURE, UNSPECIFIED; Z99.2 - DEPENDENCE ON RENAL DIALYSIS
--- NOTE | 2018-09-05 17:23 | PN ---
Physical Exam: SUBJECTIVE: Patient seen and examined HD# 28 Overnight Events: No acute events reported overnight. OBJECTIVE: Vital Signs Period Temp Pulse Resp BP Sys/Buck Pulse Ox Last 24 Hr 97.6 F-98.6 F 110-126 20-37 85-106/59-78 94-98 Intake & Output 09/05/18 09/05/18 09/05/18 06:59 14:59 22:59 Intake Total 923 Output Total 600 Balance 323 Weight 78.97 kg Intake: IV 73 Precedex - 200 Mcg In 73 Normal Saline - 48 ml @ 0 .2 MCG/KG/HR 3.93 mls/hr IVPB TITR [facility] Rx#: [id number] IVPB 300 Tube Feeding 440 Tube Irrigant 110 Output: Drainage 350 Flexiseal 350 Urine 250 Torres 250 Other: Voiding Method Indwelling Catheter Indwelling Catheter Bowel Movement Yes Weight Measurement Method Built in [facility] Lines: - R IJ (Day 5) Drains: - NG - Torres - Rectal tube Supplemental Oxygen: Ventilator: Mode: AC Vent rate: 30 Tv: 370 PEEP: 8 FiO2: 40% Physical Exams: GENERAL: The patient is in semi-fowlers position. Appears unaware of current situation. Withdrawals generally from painful stimuli. Does not follow commands. HEAD: Normal with no signs of trauma. EYES: Open but does not track movement. Corneal blink reflex intact. LUNGS: Trached and mechanically ventilated. Breath sounds equal, with trace rhonchi in right middle lobe. No wheezes or rales. HEART: Tachycardic rate with regular rhythm, S1, S2 without murmur, rub or gallop. ABDOMEN: Soft and nondistended. EXTREMITIES: 2+ pulses, warm, well-perfused. 2+ edema to all extremities. SKIN: Warm and dry. Decubitus ulcer unchanged. Covered with zinc powder. Drips: - Precedex Anti Infectives: - Nafcillin Day 17 (started 19 August 2018) - Meropenem Day 15 (started 21 August 2018) Laboratory Results - last 24 hr 09/05/18 09/05/18 05:30 05:30 WBC 25.5 H RBC 2.85 L Hgb 8.4 L Hct 24.5 L MCV 86.0 MCH 29.3 MCHC 34.1 RDW 18.0 H Plt Count 180 MPV 8.9 Sodium 127 L Potassium 3.0 L Chloride 92 L Carbon Dioxide 18 L Anion Gap 17 H BUN 77 H Creatinine 3.9 H Creat Clearance w eGFR 11.50 Random Glucose 118 H Calcium 7.8 L Phosphorus 8.3 H Magnesium 1.6 L Total Bilirubin 2.8 H AST 25 ALT 9 L Alkaline Phosphatase 97 Total Protein 5.1 L Albumin 1.2 L Active Medications Generic Name Dose Route Start Last Admin Trade Name Freq PRN Reason Stop Dose Admin Abacavir/Dolutegravir/Lamivudine 1 each 08/10/18 14:00 09/05/18 10:04 Triumeq (Non-Formulary) PO 1 each DAILY [facility] Administration Acetaminophen 1,000 mg 08/16/18 16:11 08/27/18 02:28 Tylenol Oral Solution - PO 1,000 mg Q6H PRN Administration FEVER Alprazolam 1 mg 09/05/18 17:03 Xanax - PO DAILY PRN ANXIETY Chlorhexidine Gluconate 15 ml 08/17/18 22:00 09/05/18 10:03 Peridex - MM 15 ml BID [facility] Administration Fludrocortisone Acetate 0.05 mg 08/29/18 13:15 09/05/18 10:03 Florinef - NGT 0.05 mg DAILY [facility] Administration Heparin Sodium (Porcine) 5,000 unit 08/17/18 14:00 09/05/18 14:35 Heparin - SQ 5,000 unit TID [facility] Administration Hydrocortisone Sodium Succinate 100 mg 08/29/18 11:30 09/05/18 10:03 Solu-Cortef - IVPUSH 100 mg Q8H-IV [facility] Administration IV Flush 4 ml 08/23/18 11:37 Triple Lumen Flush IVPUSH PRN PRN Protocol Nafcillin Sodium 2 gm/ 100 mls @ 100 mls/hr 08/19/18 20:00 09/05/18 14:34 Dextrose IVPB 100 mls/hr Q4H-IV [facility] Administration Protocol Meropenem 500 mg/ Dextrose 100 mls @ 200 mls/hr 08/24/18 18:00 09/05/18 10:02 IVPB 200 mls/hr Q8H-IV [facility] Administration Multi-Ingredient Ointment 1 gm 09/04/18 13:17 09/05/18 14:36 Zinc Oxide 20% Topical Oint TP 1 applic QID [facility] Administration Nystatin 1 applic 09/03/18 18:00 09/05/18 14:35 Nystop Powder - TP 1 applic QID [facility] Administration Potassium Chloride 40 meq 09/05/18 10:00 09/05/18 10:02 K-Dur - PO 40 meq DAILY [facility] Administration Ranitidine HCl 150 mg 09/03/18 22:00 09/05/18 10:02 Zantac Oral Solution - NGT 150 mg BID [facility] Administration ASSESSMENT/PLAN: 67 year old female with HTN, CAD s/p CABG in 2009, PVD with B/L LE stents, HIV, HEP C, COPD and CHF. Admitted to the ICU for Acute hypoxic hypercapnic respiratory failure and dehydration. Neuro: - Currently sedated with Precedex. Will attempt to discontinue continuous sedation. Ordered PRN Alprazolam for anxiety. Endocrine: - Consult: Dr. Leach - Cr stabilized. Continue to suspect likely acute tubular necrosis given metabolic acidosis. - Ordered Lasix to help with diuresis. Not indication for dialysis today. - Calcium corrects. - Hypokalemic today. Replenished PO and IV today. - Hypomagnesemic. Replenished. - Continue to trend electrolytes. Cardiovascular: - Consult: Dr. Fitzgerald / Dr. Hogan - Goal MAP >65. Continue holding antihypertensives as needed. - Did not require Levophed overnight. - Off vasoactive agents. - Continue Hydrocortisone and Fludicortisone for shock. Plan to wean after pt has been stable off pressors for 24 hours. Plan to start taper tomorrow. - LV Diastolic/Systolic Dysfunction - Per Dr. Fitzgerald, resume Clopidogrel (Plavix). - Hemoglobin goal >8.0. At goal today. Pulm / Resp: - Acute on Chronic Hypoxic and Hypercapneic Respiratory Failure likely secondary to pneumonia. - Continue albuterol PRN. - CXR this AM unchanged. - SPO2 goal 90%. Taper FiO2 and PEEP as able. - pH goal 7.2, allowing for permissive hypercapnia. Gastrointestinal: - Mild diarrhea noted in rectal tube. Possibly secondary to tube feeds. Continue banana flakes. Infectious Disease: - Consult Dr. Khan - h/o HIV: continue HAART Therapy per ID - Leukocytosis downtrended with tachycardia but without fever overnight. - Continue Meropenem for pseudomonas in sputum and Nafcillin for MSSA in single blood culture per ID service. Integumentary: - Decubitus ulcer. Continue Zinc and Nystatin. FEN: -Tube Feed per dietary. Planning for PEG. Prophylaxis: -DVT: Heparin SQ. Will need to hold when PEG is scheduled. -GI: Ranitidine. Code Status: - DNR Dispo: Continue to monitor in the ICU as pt continues to require sedation. Andrez Tolentino MD, PGY1 ICU Consult Service Visit type - Emergency Visit Emergency Visit: No - New Patient This patient is new to me today: No - Critical Care Critical Care patient: Yes Total Critical Care Time (in minutes): 39 Critical Care Statement: The care of this patient involved high complexity decision making to prevent further life threatening deterioration of the patient 's condition and/or to evaluate & treat vital organ system(s) failure or risk of failure.
--- NOTE | 2018-09-05 18:15 | PN ---
Progress Note, Physician History of Present Illness: MORE RESPONSIVE S/P TRACHEOSTOMY BREATHING NON LABORED OFF PRESSORS/ SEDATION AFEBRILE WBC REMAINS ELEVATED BC MSSA SPUTUM C/S MSSA PSEUDOMONAS - Current Medication List Current Medications: Active Medications Abacavir/Dolutegravir/Lamivudine (Triumeq (Non-Formulary)) 1 each PO DAILY [facility] Last Admin: 09/05/18 10:04 Dose: 1 each Acetaminophen (Tylenol Oral Solution -) 1,000 mg PO Q6H PRN PRN Reason: FEVER Last Admin: 08/27/18 02:28 Dose: 1,000 mg Alprazolam (Xanax -) 1 mg PO DAILY PRN PRN Reason: ANXIETY Chlorhexidine Gluconate (Peridex -) 15 ml MM BID [facility] Last Admin: 09/05/18 10:03 Dose: 15 ml Fludrocortisone Acetate (Florinef -) 0.05 mg NGT DAILY [facility] Last Admin: 09/05/18 10:03 Dose: 0.05 mg Heparin Sodium (Porcine) (Heparin -) 5,000 unit SQ TID [facility] Last Admin: 09/05/18 14:35 Dose: 5,000 unit Hydrocortisone Sodium Succinate (Solu-Cortef -) 100 mg IVPUSH Q8H-IV [facility] Last Admin: 09/05/18 17:23 Dose: 100 mg IV Flush (Triple Lumen Flush) 4 ml IVPUSH PRN PRN PRN Reason: Protocol Nafcillin Sodium 2 gm/ (Dextrose) 100 mls @ 100 mls/hr IVPB Q4H-IV [facility]; Protocol Last Admin: 09/05/18 17:23 Dose: 100 mls/hr Meropenem 500 mg/ Dextrose 100 mls @ 200 mls/hr IVPB Q8H-IV [facility] Last Admin: 09/05/18 17:23 Dose: 200 mls/hr Multi-Ingredient Ointment (Zinc Oxide 20% Topical Oint) 1 gm TP QID [facility] Last Admin: 09/05/18 17:24 Dose: 1 applic Nystatin (Nystop Powder -) 1 applic TP QID [facility] Last Admin: 09/05/18 17:23 Dose: 1 applic Potassium Chloride (K-Dur -) 40 meq PO DAILY [facility] Last Admin: 09/05/18 10:02 Dose: 40 meq Ranitidine HCl (Zantac Oral Solution -) 150 mg NGT BID [facility] Last Admin: 09/05/18 10:02 Dose: 150 mg - Objective Vital Signs: Vital Signs Temperature 97.8 F 09/05/18 10:00 Pulse Rate 121 H 09/05/18 14:00 Respiratory Rate 32 H 09/05/18 18:03 Blood Pressure 90/71 09/05/18 14:00 O2 Sat by Pulse Oximetry (%) 98 09/05/18 10:00 Constitutional: Yes: No Distress Cardiovascular: Yes: S1, S2 Respiratory: Yes: Mechanically Ventilated Gastrointestinal: Yes: Normal Bowel Sounds, Soft Edema: Yes Labs: CBC, BMP 09/05/18 05:30 09/05/18 05:30 INR, PTT INR 1.18 (0.83-1.09) H 09/02/18 05:30 Assessment/Plan SEPSIS MSSA BACTEREMIA ? PNEUMONIA ?ENDOCARDITIS RESPIRATORY FAILURE/ COPD EXACERBATION HCAP RENAL FAILURE MARKED LEUKOCYTOSIS HIV+ CD4 437 CONTINUE NAFCILLIN D/C MEROPENEM HEMODYNAMIC/ VENTILATORY SUPPORT CONTINUE ART PROGNOSIS POOR
--- NOTE | 2018-09-05 18:56 | PN ---
Progress Note (short form) - Note Progress Note: Brief GI follow up note Pt off pressors, remains on precedex s/p tracheostomy. Does not respond to verbal stimuli, grimaces on painful stimuli. Receiving NG feeds. Pt still with marked leucocytosis and electrolyte abnormalities. Prognosis overall appears poor. Spoke with pts daughter, Netta, discussed risks/benefits of EGD/PEG in detail considering pts clinical condition. She wants to defer PEG at this time and prefers to wait to monitor for improvement prior to considering. Would still recommend obtain Abd US r/o ascites which if present would represent a contraindication for EGD/PEG. Please recall GI if questions/concerns in the interim.
[2018-09-06] MEDS ORDERED: PT OWN MED DRAWER 7, Y5N ONE ×3 (01:45→10:19)
[2018-09-06] MEDS: HYDROCORTISONE SOD SUCCINATE 100 MG/2 ML VIAL IVPUSH SCH ×2 (01:58→10:16)
[2018-09-06] MEDS: NAFCILLIN - 2 GM in DEXTROSE 5%-WATER - 100 ML IVPB SCH ×4 (01:58→14:28)
--- NOTE | 2018-09-06 06:27 | PN ---
Progress Note (short form) - Note Progress Note: Chief Complaint: Events noted, notes reviewed, overall no significant change in status, remains on ventilator via tracheostomy, off of sedation, off of pressors , sinus tachycardia noted- persistent History of Present Illness: Seen and examined in the ICU. Events noted, notes reviewed, overall no significant change in status, remains on ventilator via tracheostomy, off of sedation, off of pressors, sinus tachycardia noted- persistent Recommend resumption of cardiac meds hemodynamics permitting - Current Medication List Current Medications Abacavir/Dolutegravir/Lamivudine (Triumeq (Non-Formulary)) 1 each PO DAILY [facility] Last Admin: 09/05/18 10:04 Dose: 1 each Acetaminophen (Tylenol Oral Solution -) 1,000 mg PO Q6H PRN PRN Reason: FEVER Last Admin: 08/27/18 02:28 Dose: 1,000 mg Alprazolam (Xanax -) 1 mg PO DAILY PRN PRN Reason: ANXIETY Chlorhexidine Gluconate (Peridex -) 15 ml MM BID [facility] Last Admin: 09/05/18 21:10 Dose: 15 ml Fludrocortisone Acetate (Florinef -) 0.05 mg NGT DAILY [facility] Last Admin: 09/05/18 10:03 Dose: 0.05 mg Heparin Sodium (Porcine) (Heparin -) 5,000 unit SQ TID [facility] Last Admin: 09/05/18 21:09 Dose: 5,000 unit Hydrocortisone Sodium Succinate (Solu-Cortef -) 100 mg IVPUSH Q8H-IV [facility] Last Admin: 09/06/18 01:58 Dose: 100 mg IV Flush (Triple Lumen Flush) 4 ml IVPUSH PRN PRN PRN Reason: Protocol Nafcillin Sodium 2 gm/ (Dextrose) 100 mls @ 100 mls/hr IVPB Q4H-IV [facility]; Protocol Last Admin: 09/06/18 01:58 Dose: 100 mls/hr Multi-Ingredient Ointment (Zinc Oxide 20% Topical Oint) 1 gm TP QID [facility] Last Admin: 09/05/18 21:10 Dose: 1 applic Nystatin (Nystop Powder -) 1 applic TP QID [facility] Last Admin: 09/05/18 21:10 Dose: 1 applic Potassium Chloride (K-Dur -) 40 meq PO DAILY [facility] Last Admin: 09/05/18 10:02 Dose: 40 meq Ranitidine HCl (Zantac Oral Solution -) 150 mg NGT BID [facility] Last Admin: 09/05/18 21:10 Dose: 150 mg Review of Systems Unable to obtain - Objective Vital Signs: Last Vital Signs Temp Pulse Resp BP Pulse Ox 97.7 F 122 H 35 H 91/66 97 09/06/18 02:06 09/06/18 00:00 09/06/18 05:18 09/06/18 00:00 09/05/18 22:00 Intake & Output 09/03/18 09/04/18 09/05/18 09/06/18 23:59 23:59 23:59 23:59 Intake Total 2608 2380 1955 Output Total 180 690 450 Balance 2428 1690 1505 Weight 173 lb 6.4 oz 173 lb 1.6 oz 174 lb 1.6 oz Neck: Supple Negative JVD No Bruit Cardiovascular: S1 S2 Regular Rate and Rhythm Tachycardia Respiratory: Diminished Breath Sounds at the Bases Bilaterally Bilateral Scattered Rhonchi Gastrointestinal: Soft Benign Normal Bowel Sounds Ext: Edema Labs: CBC, BMP 09/06/18 05:30 09/06/18 05:30 Hepatic Panel Total Bilirubin 2.8 mg/dL (0.2-1) H 09/05/18 05:30 Direct Bilirubin 0.7 mg/dL (0.0-0.2) H 08/28/18 05:30 AST 25 U/L (15-37) 09/05/18 05:30 ALT 9 U/L (13-61) L 09/05/18 05:30 Alkaline Phosphatase 97 U/L (45-117) 09/05/18 05:30 Albumin 1.2 g/dl (3.4-5.0) L 09/05/18 05:30 INR, PTT INR 1.18 (0.83-1.09) H 09/02/18 05:30 Assessment/Plan ASSESSMENT: 1. Acute on chronic hypercapneic/hypoxemic respiratory failure on mechanical ventilation/post tracheostomy, metabolic acidosis, post HD, sepsis syndrome source unclear, persistent pulmonary infiltrate and small effusion, as outlined in prior notes question empyema 2. Exacerbation of chronic obstructive pulmonary disease 3. Right Heart Failure with Severe Pulmonary HTN 4. Acute on chronic class I-II NYHA classification LV failure related to diastolic dysfunction 5. CAD post CABG with evidence of demand ischemic injury angina pectoris 7. HTN, currently hypotensive off of pressors 8. Hypercholesterolemia 9. PAD post SFA stent 10. Acute on CKD, pre-renal azotemia, initiated on Lasix 11. Toxic metabolic encephelopathy, persistent 12. History of HIV and Hepatitis C 13. History of cholelithiasis 14. Anemia post transfusion 15. Hyponatremia 16. Hypokalemia PLAN: 1. As outlined continue to hold Plavix, related to anemia, again as outlined transfuse to maintain Hg equal or > 8.0 2. Add B-Blockers hemodynamics permitting, Coreg starting at 3.125 mg twice daily 3. Antibiotic as per the primary/ID team 4. Diuretics as per renal service 5. Ventilator management as per the ICU team Overall poor prognosis Tabatha Hogan M.D.
[2018-09-06] MEDS: HEPARIN NA (PORCINE) 5,000 UNITS/ML 1ML VIAL SQ SCH ×2 (06:28→14:28)
[2018-09-06 06:54] LABS: ANION GAP 18 MMOL/L (8-16); BLOOD UREA NITROGEN 87 mg/dL (7-18); CHLORIDE 94 mmol/L (98-107); CO2 18 mmol/L (21-32); CREATININE 4.4 mg/dL (0.55-1.3); GLUCOSE,RANDOM 116 mg/dL (74-106); MAGNESIUM 1.9 mg/dL (1.8-2.4); PHOSPHOROUS 8.9 mg/dL (2.5-4.9); SODIUM 130 mmol/L (136-145)
[2018-09-06 06:57] LABS: POTASSIUM 2.9 mmol/L (3.5-5.1)
[2018-09-06] MEDS ORDERED: POTASSIUM CHLORIDE ORAL LIQUID 20 MEQ/15 ML PO ONE (06:58)
[2018-09-06 07:02] LABS: HEMATOCRIT 22.6 % (32.4-45.2); HEMOGLOBIN 7.7 GM/dL (10.7-15.3); MCH 29.3 pg (25.7-33.7); MCHC 33.9 g/dl (32.0-36.0); MEAN CELL VOLUME 86.3 fl (80-96); MEAN PLT VOLUME 8.9 fl (7.5-11.1); PLATELET COUNT 164 K/MM3 (134-434); RBC 2.62 M/mm3 (3.60-5.2); WHITE BLOOD COUNT 25.5 K/mm3 (4.0-10.0)
[2018-09-06] MEDS: BANATROL PLUS POWDER PACKET PO SCH ×2 (07:28→14:28)
[2018-09-06] MEDS: VASOPRESSIN 50 UNITS in SODIUM CHLORIDE 97.5 ML IVPB SCH (09:16)
[2018-09-06] MEDS: ZINC OXIDE 20% TOPICAL OINTMENT 454 GM JAR TP SCH ×2 (10:14→14:28)
[2018-09-06] MEDS: RANITIDINE HCL 150 MG/10 ML UNIT-DOSE NGT SCH (10:14)
[2018-09-06] MEDS: ABACAVIR/DOLUTEGRAVIR/LAMIVUDI (TRIUMEQ) TABLET -NF PO SCH (10:15)
[2018-09-06] MEDS: CHLORHEXIDINE GLUCONATE 0.12% 15ML CUP MM SCH (10:15)
[2018-09-06] MEDS: NYSTATIN POWDER 100,000 UNITS/GM - 15 GM TOPICAL POWDER TP SCH ×2 (10:15→14:28)
[2018-09-06] MEDS: FLUDROCORTISONE ACETATE 0.1 MG TABLET (FP) NGT SCH (10:16)
[2018-09-06] MEDS: POTASSIUM CHLORIDE TABS 20 MEQ TABLET.ER (FP) PO SCH (10:16)
[2018-09-06] MEDS ORDERED: SODIUM CHLORIDE 0.9% 500 ML INFUS.BAG IV ONE ×3 (11:29→15:57)
[2018-09-06] MEDS ORDERED: morphine SULFATE 4 MG/ML VIAL IVPUSH PRN (11:30)
[2018-09-06] MEDS ORDERED: LORazepam 2 MG/ML SDV VIAL IVPUSH PRN (11:31)
[2018-09-06 12:19] VITALS: BMI 24.9
--- NOTE | 2018-09-06 12:38 | PN ---
Teaching Attending Note Name of Resident: Andrez Tolentino ATTENDING PHYSICIAN STATEMENT I saw and evaluated the patient. I reviewed the resident's note and discussed the case with the resident. I agree with the resident's findings and plan as documented. SUBJECTIVE: Pt seen and examined in the ICU. Remains off pressors but with borderline hypotension. Poorly responsive off sedation, no purposeful movements. Family deferring PEG placement at this time. OBJECTIVE: Vital Signs Period Temp Pulse Resp BP Sys/Buck Pulse Ox Last 24 Hr 97.7 F-98.4 F 121-128 26-35 79-116/55-71 97-97 Intake & Output 09/03/18 09/04/18 09/05/18 09/06/18 23:59 23:59 23:59 23:59 Intake Total 2608 2380 1955 200 Output Total 180 284 950 5436 Balance 2428 1690 1505 -1350 Weight 78.653 kg 78.517 kg 78.97 kg 74.559 kg Gen: vented, eyes open without tracking Heart: RRR Lung: scattered rhonchi Abd: soft, nontender Ext: + edema CBC, BMP 09/06/18 05:30 09/06/18 05:30 Active Medications Abacavir/Dolutegravir/Lamivudine (Triumeq (Non-Formulary)) 1 each PO DAILY [facility] Last Admin: 09/06/18 10:15 Dose: 1 each Acetaminophen (Tylenol Oral Solution -) 1,000 mg PO Q6H PRN PRN Reason: FEVER Last Admin: 08/27/18 02:28 Dose: 1,000 mg Chlorhexidine Gluconate (Peridex -) 15 ml MM BID [facility] Last Admin: 09/06/18 10:15 Dose: 15 ml Fludrocortisone Acetate (Florinef -) 0.05 mg NGT DAILY [facility] Last Admin: 09/06/18 10:16 Dose: 0.05 mg Heparin Sodium (Porcine) (Heparin -) 5,000 unit SQ TID [facility] Last Admin: 09/06/18 06:28 Dose: 5,000 unit Hydrocortisone Sodium Succinate (Solu-Cortef -) 100 mg IVPUSH Q8H-IV [facility] Last Admin: 09/06/18 10:16 Dose: 100 mg IV Flush (Triple Lumen Flush) 4 ml IVPUSH PRN PRN PRN Reason: Protocol Nafcillin Sodium 2 gm/ (Dextrose) 100 mls @ 100 mls/hr IVPB Q4H-IV [facility]; Protocol Last Admin: 09/06/18 10:51 Dose: 100 mls/hr Lorazepam (Ativan Injection -) 2 mg IVPUSH Q6H PRN PRN Reason: ANXIETY Morphine Sulfate (Morphine Sulfate) 4 mg IVPUSH Q4H PRN PRN Reason: Agitation Multi-Ingredient Ointment (Zinc Oxide 20% Topical Oint) 1 gm TP QID [facility] Last Admin: 09/06/18 10:14 Dose: 1 applic Nystatin (Nystop Powder -) 1 applic TP QID [facility] Last Admin: 09/06/18 10:15 Dose: 1 applic Potassium Chloride (K-Dur -) 40 meq PO DAILY [facility] Last Admin: 09/06/18 10:16 Dose: 40 meq Ranitidine HCl (Zantac Oral Solution -) 150 mg NGT BID [facility] Last Admin: 09/06/18 10:14 Dose: 150 mg ASSESSMENT AND PLAN: Acute on Chronic Hypoxic and Hypercapneic Respiratory Failure s/p Tracheostomy Pneumonia Acute COPD Exacerbation Acute on Chronic Diastolic Heart Failure Severe Pulmonary HTN CAD s/p CABG Acute on Chronic Renal Failure requiring HD Hyponatremia HIV Hep C HTN Hypercholesterolemia PAD - continue antibiotics per ID - monitoring off pressors, maintain MAP >65 - monitor urine output, creatinine - taper off steroids - replete lytes - morphine, ativan as needed for tachypnea - HD per renal - enteral feeds - continue discussions regarding goals of care if family declining PEG placement - DVT/GI prophylaxis - continue ICU monitoring critical care time spent in reviewing chart, evaluating patient and formulating plan 35 min
--- NOTE | 2018-09-06 14:11 | PN ---
Progress Note, Physician History of Present Illness: Pt seen and examined at bedside. She remains in the ICU. She remains oliguric. - Current Medication List Current Medications: Active Medications Abacavir/Dolutegravir/Lamivudine (Triumeq (Non-Formulary)) 1 each PO DAILY [facility] Last Admin: 09/06/18 10:15 Dose: 1 each Acetaminophen (Tylenol Oral Solution -) 1,000 mg PO Q6H PRN PRN Reason: FEVER Last Admin: 08/27/18 02:28 Dose: 1,000 mg Chlorhexidine Gluconate (Peridex -) 15 ml MM BID [facility] Last Admin: 09/06/18 10:15 Dose: 15 ml Fludrocortisone Acetate (Florinef -) 0.05 mg NGT DAILY [facility] Last Admin: 09/06/18 10:16 Dose: 0.05 mg Heparin Sodium (Porcine) (Heparin -) 5,000 unit SQ TID [facility] Last Admin: 09/06/18 06:28 Dose: 5,000 unit Hydrocortisone Sodium Succinate (Solu-Cortef -) 100 mg IVPUSH Q8H-IV [facility] Last Admin: 09/06/18 10:16 Dose: 100 mg IV Flush (Triple Lumen Flush) 4 ml IVPUSH PRN PRN PRN Reason: Protocol Nafcillin Sodium 2 gm/ (Dextrose) 100 mls @ 100 mls/hr IVPB Q4H-IV [facility]; Protocol Last Admin: 09/06/18 10:51 Dose: 100 mls/hr Potassium Chloride (Potassium Chloride 10 Meq Premix Ivpb -) 10 meq in 100 mls @ 100 mls/hr IVPB Q60M [facility] Stop: 09/06/18 14:59 Lorazepam (Ativan Injection -) 2 mg IVPUSH Q6H PRN PRN Reason: ANXIETY Morphine Sulfate (Morphine Sulfate) 4 mg IVPUSH Q4H PRN PRN Reason: Agitation Multi-Ingredient Ointment (Zinc Oxide 20% Topical Oint) 1 gm TP QID [facility] Last Admin: 09/06/18 10:14 Dose: 1 applic Nystatin (Nystop Powder -) 1 applic TP QID [facility] Last Admin: 09/06/18 10:15 Dose: 1 applic Potassium Chloride (K-Dur -) 40 meq PO DAILY [facility] Last Admin: 09/06/18 10:16 Dose: 40 meq Ranitidine HCl (Zantac Oral Solution -) 150 mg NGT BID [facility] Last Admin: 09/06/18 10:14 Dose: 150 mg - Objective Vital Signs: Vital Signs Temperature 97.8 F 09/06/18 10:00 Pulse Rate 122 H 09/06/18 14:00 Respiratory Rate 26 H 09/06/18 14:00 Blood Pressure 71/53 L 09/06/18 14:00 O2 Sat by Pulse Oximetry (%) 97 09/05/18 22:00 Constitutional: Yes: Calm Eyes: Yes: Conjunctiva Clear HENT: Yes: Atraumatic Neck: Yes: Other (trache) Cardiovascular: Yes: S1, S2 Respiratory: Yes: Mechanically Ventilated Gastrointestinal: Yes: Soft, Other (diarrhea) Genitourinary: Yes: Torres Present Musculoskeletal: Yes: Muscle Weakness Edema: Yes Edema: LUE: 1+, RUE: 1+, LLE: 1+, RLE: 1+ Neurological: Yes: Lethargy Labs: CBC, BMP 09/06/18 05:30 09/06/18 05:30 INR, PTT INR 1.18 (0.83-1.09) H 09/02/18 05:30 Problem List - Problems (1) Acute renal failure Code(s): N17.9 - ACUTE KIDNEY FAILURE, UNSPECIFIED Qualifiers: Acute renal failure type: unspecified Qualified Code(s): N17.9 - Acute kidney failure, unspecified (2) Altered mental status, unspecified Code(s): R41.82 - ALTERED MENTAL STATUS, UNSPECIFIED Qualifiers: Altered mental status type: somnolence Qualified Code(s): R40.0 - Somnolence (3) CHF (congestive heart failure) Code(s): I50.9 - HEART FAILURE, UNSPECIFIED Qualifiers: Heart failure type: diastolic Heart failure chronicity: chronic Qualified Code(s): I50.32 - Chronic diastolic (congestive) heart failure (4) COPD with acute exacerbation Code(s): J44.1 - CHRONIC OBSTRUCTIVE PULMONARY DISEASE W (ACUTE) EXACERBATION (5) Hyperkalemia Code(s): E87.5 - HYPERKALEMIA Assessment/Plan Current Medications Generic Name Dose Route Start Last Admin Trade Name Freq PRN Reason Stop Dose Admin Abacavir/Dolutegravir/Lamivudine 1 each 08/10/18 14:00 09/06/18 10:15 Triumeq (Non-Formulary) PO 1 each DAILY [facility] Administration Acetaminophen 1,000 mg 08/16/18 16:11 08/27/18 02:28 Tylenol Oral Solution - PO 1,000 mg Q6H PRN Administration FEVER Chlorhexidine Gluconate 15 ml 08/17/18 22:00 09/06/18 10:15 Peridex - MM 15 ml BID [facility] Administration Fludrocortisone Acetate 0.05 mg 08/29/18 13:15 09/06/18 10:16 Florinef - NGT 0.05 mg DAILY [facility] Administration Heparin Sodium (Porcine) 5,000 unit 08/17/18 14:00 09/06/18 06:28 Heparin - SQ 5,000 unit TID [facility] Administration Hydrocortisone Sodium Succinate 100 mg 08/29/18 11:30 09/06/18 10:16 Solu-Cortef - IVPUSH 100 mg Q8H-IV [facility] Administration IV Flush 4 ml 08/23/18 11:37 Triple Lumen Flush IVPUSH PRN PRN Protocol Nafcillin Sodium 2 gm/ 100 mls @ 100 mls/hr 08/19/18 20:00 09/06/18 10:51 Dextrose IVPB 100 mls/hr Q4H-IV [facility] Administration Protocol Potassium Chloride 10 meq in 100 mls @ 100 mls/hr 09/06/18 13:00 Potassium Chloride 10 Meq Premix Ivpb - IVPB 09/06/18 14:59 Q60M [facility] Lorazepam 2 mg 09/06/18 11:31 Ativan Injection - IVPUSH Q6H PRN ANXIETY Morphine Sulfate 4 mg 09/06/18 11:30 Morphine Sulfate IVPUSH Q4H PRN Agitation Multi-Ingredient Ointment 1 gm 09/04/18 13:17 09/06/18 10:14 Zinc Oxide 20% Topical Oint TP 1 applic QID [facility] Administration Nystatin 1 applic 09/03/18 18:00 09/06/18 10:15 Nystop Powder - TP 1 applic QID [facility] Administration Potassium Chloride 40 meq 09/05/18 10:00 09/06/18 10:16 K-Dur - PO 40 meq DAILY [facility] Administration Ranitidine HCl 150 mg 09/03/18 22:00 09/06/18 10:14 Zantac Oral Solution - NGT 150 mg BID [facility] Administration Impression 1. KRISTIAN 2. Hyperkalemia 3. HIV 4. hyponatremia 5. altered mental status 6. pulm HTN 7. htn 8. pvd 9. resp acidosis 10. resp failure requiring intubation Plan - renal function is worsening - pt is hypotensive and tachycardic, she is unstable for HD - pt did not have much response to lasix - family are discussing GOC - she will need an HD cath if they decide to continue dialysis - discussed with ICU - vent support
[2018-09-06] MEDS: KCL 10 MEQ IVPB 10 MEQ/100 ML INFUS.BAG IVPB SCH ×2 (14:27→15:27)
--- NOTE | 2018-09-06 14:31 | PN ---
Progress Note, Physician History of Present Illness: on vent/trach - Current Medication List Current Medications: Active Medications Abacavir/Dolutegravir/Lamivudine (Triumeq (Non-Formulary)) 1 each PO DAILY [facility] Last Admin: 09/06/18 10:15 Dose: 1 each Acetaminophen (Tylenol Oral Solution -) 1,000 mg PO Q6H PRN PRN Reason: FEVER Last Admin: 08/27/18 02:28 Dose: 1,000 mg Chlorhexidine Gluconate (Peridex -) 15 ml MM BID [facility] Last Admin: 09/06/18 10:15 Dose: 15 ml Fludrocortisone Acetate (Florinef -) 0.05 mg NGT DAILY [facility] Last Admin: 09/06/18 10:16 Dose: 0.05 mg Heparin Sodium (Porcine) (Heparin -) 5,000 unit SQ TID [facility] Last Admin: 09/06/18 14:28 Dose: 5,000 unit Hydrocortisone Sodium Succinate (Solu-Cortef -) 100 mg IVPUSH Q8H-IV [facility] Last Admin: 09/06/18 10:16 Dose: 100 mg IV Flush (Triple Lumen Flush) 4 ml IVPUSH PRN PRN PRN Reason: Protocol Nafcillin Sodium 2 gm/ (Dextrose) 100 mls @ 100 mls/hr IVPB Q4H-IV [facility]; Protocol Last Admin: 09/06/18 14:28 Dose: 100 mls/hr Potassium Chloride (Potassium Chloride 10 Meq Premix Ivpb -) 10 meq in 100 mls @ 100 mls/hr IVPB Q60M [facility] Stop: 09/06/18 14:59 Last Admin: 09/06/18 14:27 Dose: 100 mls/hr Lorazepam (Ativan Injection -) 2 mg IVPUSH Q6H PRN PRN Reason: ANXIETY Morphine Sulfate (Morphine Sulfate) 4 mg IVPUSH Q4H PRN PRN Reason: Agitation Multi-Ingredient Ointment (Zinc Oxide 20% Topical Oint) 1 gm TP QID [facility] Last Admin: 09/06/18 14:28 Dose: 1 applic Nystatin (Nystop Powder -) 1 applic TP QID [facility] Last Admin: 09/06/18 14:28 Dose: 1 applic Potassium Chloride (K-Dur -) 40 meq PO DAILY [facility] Last Admin: 09/06/18 10:16 Dose: 40 meq Ranitidine HCl (Zantac Oral Solution -) 150 mg NGT BID [facility] Last Admin: 09/06/18 10:14 Dose: 150 mg - Objective Vital Signs: Vital Signs Temperature 97.8 F 09/06/18 10:00 Pulse Rate 122 H 09/06/18 14:00 Respiratory Rate 26 H 09/06/18 14:00 Blood Pressure 71/53 L 09/06/18 14:00 O2 Sat by Pulse Oximetry (%) 97 09/05/18 22:00 Constitutional: Yes: No Distress HENT: Yes: Atraumatic Neck: Yes: Supple Cardiovascular: Yes: Regular Rate and Rhythm Respiratory: Yes: Rhonchi Gastrointestinal: Yes: Normal Bowel Sounds Extremities: Yes: WNL Edema: Yes Edema: LLE: 1+, RLE: 1+ Peripheral Pulses WNL: Yes Neurological: Yes: Other (sedated) Labs: CBC, BMP 09/06/18 05:30 09/06/18 05:30 INR, PTT INR 1.18 (0.83-1.09) H 09/02/18 05:30 Problem List - Problems (1) Altered mental status, unspecified Code(s): R41.82 - ALTERED MENTAL STATUS, UNSPECIFIED Qualifiers: Altered mental status type: somnolence Qualified Code(s): R40.0 - Somnolence (2) COPD with acute exacerbation Assessment/Plan: steroids duo nebs trach/vent Code(s): J44.1 - CHRONIC OBSTRUCTIVE PULMONARY DISEASE W (ACUTE) EXACERBATION (3) Elevated troponin I level Code(s): R74.8 - ABNORMAL LEVELS OF OTHER SERUM ENZYMES (4) Hyperkalemia Code(s): E87.5 - HYPERKALEMIA (5) COPD (chronic obstructive pulmonary disease) Code(s): J44.9 - CHRONIC OBSTRUCTIVE PULMONARY DISEASE, UNSPECIFIED Qualifiers: COPD type: COPD with acute lower respiratory infection Qualified Code(s): J44.0 - Chronic obstructive pulmonary disease with acute lower respiratory infection (6) HIV Assessment/Plan: continue home meds id on board Code(s): Z21 - ASYMPTOMATIC HUMAN IMMUNODEFICIENCY VIRUS INFECTION STATUS (7) HTN (hypertension) Assessment/Plan: bp stable off of pressors Code(s): I10 - ESSENTIAL (PRIMARY) HYPERTENSION Qualifiers: Hypertension type: essential hypertension Qualified Code(s): I10 - Essential (primary) hypertension (8) Hyperlipidemia Code(s): E78.5 - HYPERLIPIDEMIA, UNSPECIFIED Qualifiers: Hyperlipidemia type: pure hypercholesterolemia Qualified Code(s): E78.00 - Pure hypercholesterolemia, unspecified; E78.0 - Pure hypercholesterolemia (9) PVD (peripheral vascular disease) Code(s): I73.9 - PERIPHERAL VASCULAR DISEASE, UNSPECIFIED (10) CHF (congestive heart failure) Code(s): I50.9 - HEART FAILURE, UNSPECIFIED Qualifiers: Heart failure type: diastolic Heart failure chronicity: chronic Qualified Code(s): I50.32 - Chronic diastolic (congestive) heart failure (11) Sepsis Assessment/Plan: on abx monitor wbc Code(s): A41.9 - SEPSIS, UNSPECIFIED ORGANISM (12) Respiratory acidosis Code(s): E87.2 - ACIDOSIS (13) Respiratory failure requiring intubation Assessment/Plan: on trach /vent Code(s): J96.90 - RESPIRATORY FAILURE, UNSP, UNSP W HYPOXIA OR HYPERCAPNIA Assessment/Plan cc time in icu 35 min for peg placement family deciding
--- NOTE | 2018-09-06 14:45 | PN ---
Progress Note, Physician History of Present Illness: MORE RESPONSIVE S/P TRACHEOSTOMY BREATHING NON LABORED OFF PRESSORS/ SEDATION AFEBRILE WBC REMAINS ELEVATED BC MSSA SPUTUM C/S MSSA PSEUDOMONAS - Current Medication List Current Medications: Active Medications Abacavir/Dolutegravir/Lamivudine (Triumeq (Non-Formulary)) 1 each PO DAILY [facility] Last Admin: 09/06/18 10:15 Dose: 1 each Acetaminophen (Tylenol Oral Solution -) 1,000 mg PO Q6H PRN PRN Reason: FEVER Last Admin: 08/27/18 02:28 Dose: 1,000 mg Chlorhexidine Gluconate (Peridex -) 15 ml MM BID [facility] Last Admin: 09/06/18 10:15 Dose: 15 ml Fludrocortisone Acetate (Florinef -) 0.05 mg NGT DAILY [facility] Last Admin: 09/06/18 10:16 Dose: 0.05 mg Heparin Sodium (Porcine) (Heparin -) 5,000 unit SQ TID [facility] Last Admin: 09/06/18 14:28 Dose: 5,000 unit Hydrocortisone Sodium Succinate (Solu-Cortef -) 100 mg IVPUSH Q8H-IV [facility] Last Admin: 09/06/18 10:16 Dose: 100 mg IV Flush (Triple Lumen Flush) 4 ml IVPUSH PRN PRN PRN Reason: Protocol Nafcillin Sodium 2 gm/ (Dextrose) 100 mls @ 100 mls/hr IVPB Q4H-IV [facility]; Protocol Last Admin: 09/06/18 14:28 Dose: 100 mls/hr Potassium Chloride (Potassium Chloride 10 Meq Premix Ivpb -) 10 meq in 100 mls @ 100 mls/hr IVPB Q60M [facility] Stop: 09/06/18 14:59 Last Admin: 09/06/18 14:27 Dose: 100 mls/hr Lorazepam (Ativan Injection -) 2 mg IVPUSH Q6H PRN PRN Reason: ANXIETY Morphine Sulfate (Morphine Sulfate) 4 mg IVPUSH Q4H PRN PRN Reason: Agitation Multi-Ingredient Ointment (Zinc Oxide 20% Topical Oint) 1 gm TP QID [facility] Last Admin: 09/06/18 14:28 Dose: 1 applic Nystatin (Nystop Powder -) 1 applic TP QID [facility] Last Admin: 09/06/18 14:28 Dose: 1 applic Potassium Chloride (K-Dur -) 40 meq PO DAILY [facility] Last Admin: 09/06/18 10:16 Dose: 40 meq Ranitidine HCl (Zantac Oral Solution -) 150 mg NGT BID [facility] Last Admin: 09/06/18 10:14 Dose: 150 mg - Objective Vital Signs: Vital Signs Temperature 97.8 F 09/06/18 14:29 Pulse Rate 122 H 09/06/18 14:00 Respiratory Rate 26 H 09/06/18 14:00 Blood Pressure 71/53 L 09/06/18 14:00 O2 Sat by Pulse Oximetry (%) 97 09/05/18 22:00 Cardiovascular: Yes: Regular Rate and Rhythm, S1, S2 Respiratory: Yes: Mechanically Ventilated Gastrointestinal: Yes: Soft Edema: Yes Labs: CBC, BMP 09/06/18 05:30 09/06/18 05:30 INR, PTT INR 1.18 (0.83-1.09) H 09/02/18 05:30 Assessment/Plan SEPSIS MSSA BACTEREMIA ? PNEUMONIA ?ENDOCARDITIS RESPIRATORY FAILURE/ COPD EXACERBATION HCAP RENAL FAILURE MARKED LEUKOCYTOSIS HIV+ CD4 437 CONTINUE NAFCILLIN HEMODYNAMIC/ VENTILATORY SUPPORT CONTINUE ART PROGNOSIS POOR
--- NOTE | 2018-09-06 15:04 | PN ---
Physical Exam: SUBJECTIVE: Patient seen and examined HD# 29 Overnight Events: No acute events reported overnight. OBJECTIVE: Vital Signs Period Temp Pulse Resp BP Sys/Buck Pulse Ox Last 24 Hr 97.7 F-98.4 F 121-128 26-35 71-116/53-66 97-97 Intake & Output 09/06/18 09/06/18 09/06/18 06:59 14:59 22:59 Intake Total 300 Output Total 1550 50 Balance -1250 -50 Weight 74.559 kg Intake: IVPB 300 Output: Drainage 1500 Flexiseal 1500 Urine 50 50 Torres 50 50 Other: Voiding Method Indwelling Catheter Bowel Movement Yes Yes Body Mass Index (BMI) 24.9 Weight Measurement Method Built in [facility] Lines: - R IJ (Day 6) Drains: - NG - Torres - Rectal tube Supplemental Oxygen: Ventilator: Mode: AC Vent rate: 30 Tv: 370 PEEP: 8 FiO2: 40% Physical Exams: GENERAL: The patient is in semi-fowlers position. Appears unaware of current situation. Withdrawals generally from painful stimuli. Does not follow commands. HEAD: Normal with no signs of trauma. EYES: Open but does not track movement. Corneal blink reflex intact. LUNGS: Trached and mechanically ventilated. Breath sounds equal, with trace rhonchi in right middle lobe. No wheezes or rales. HEART: Tachycardic rate with regular rhythm, S1, S2 without murmur, rub or gallop. ABDOMEN: Soft and nondistended. EXTREMITIES: 2+ pulses, warm, well-perfused. 2+ edema to all extremities. SKIN: Warm and dry. Decubitus ulcer unchanged. Covered with zinc powder. Drips: - None Anti Infectives: - Nafcillin Day 18 (started 19 August 2018) - Meropenem Day 16 (started 21 August 2018 - 06 September 2018), Completed Laboratory Results - last 24 hr 09/06/18 09/06/18 05:30 05:30 WBC 25.5 H RBC 2.62 L Hgb 7.7 L Hct 22.6 L MCV 86.3 MCH 29.3 MCHC 33.9 RDW 18.0 H Plt Count 164 MPV 8.9 Sodium 130 L Potassium 2.9 L* Chloride 94 L Carbon Dioxide 18 L Anion Gap 18 H BUN 87 H Creatinine 4.4 H Creat Clearance w eGFR 10.00 Random Glucose 116 H Calcium 8.0 L Phosphorus 8.9 H Magnesium 1.9 Active Medications Generic Name Dose Route Start Last Admin Trade Name Freq PRN Reason Stop Dose Admin Abacavir/Dolutegravir/Lamivudine 1 each 08/10/18 14:00 09/06/18 10:15 Triumeq (Non-Formulary) PO 1 each DAILY ALYSON Administration Acetaminophen 1,000 mg 08/16/18 16:11 08/27/18 02:28 Tylenol Oral Solution - PO 1,000 mg Q6H PRN Administration FEVER Chlorhexidine Gluconate 15 ml 08/17/18 22:00 09/06/18 10:15 Peridex - MM 15 ml BID ALYSON Administration Fludrocortisone Acetate 0.05 mg 08/29/18 13:15 09/06/18 10:16 Florinef - NGT 0.05 mg DAILY ALYSON Administration Heparin Sodium (Porcine) 5,000 unit 08/17/18 14:00 09/06/18 14:28 Heparin - SQ 5,000 unit TID ALYSON Administration Hydrocortisone Sodium Succinate 100 mg 08/29/18 11:30 09/06/18 10:16 Solu-Cortef - IVPUSH 100 mg Q8H-IV ALYSON Administration IV Flush 4 ml 08/23/18 11:37 Triple Lumen Flush IVPUSH PRN PRN Protocol Nafcillin Sodium 2 gm/ 100 mls @ 100 mls/hr 08/19/18 20:00 09/06/18 14:28 Dextrose IVPB 100 mls/hr Q4H-IV ALYSON Administration Protocol Lorazepam 2 mg 09/06/18 11:31 Ativan Injection - IVPUSH Q6H PRN ANXIETY Morphine Sulfate 4 mg 09/06/18 11:30 Morphine Sulfate IVPUSH Q4H PRN Agitation Multi-Ingredient Ointment 1 gm 09/04/18 13:17 09/06/18 14:28 Zinc Oxide 20% Topical Oint TP 1 applic QID ALYSON Administration Nystatin 1 applic 09/03/18 18:00 09/06/18 14:28 Nystop Powder - TP 1 applic QID ALYSON Administration Potassium Chloride 40 meq 09/05/18 10:00 09/06/18 10:16 K-Dur - PO 40 meq DAILY ALYSON Administration Ranitidine HCl 150 mg 09/03/18 22:00 09/06/18 10:14 Zantac Oral Solution - NGT 150 mg BID ALYSON Administration ASSESSMENT/PLAN: 67 year old female with HTN, CAD s/p CABG in 2010, PVD with B/L LE stents, HIV, HEP C, COPD and CHF. Admitted to the ICU for Acute hypoxic hypercapnic respiratory failure and dehydration. Neuro: - Altered level of consciousness. Generally withdrawals from pain. Off sedating medications for >24 hours. Will trial prn Morphine and Ativan to help with agitation. - Ordered head CT to evaluate for acute intracranial pathology given depressed LOC. Endocrine: - Consult: Dr. Leach - Cr stabilized. Continue to suspect likely acute tubular necrosis given metabolic acidosis. - Will need dialysis, likely tomorrow. No significant increase in urine output after diuretic push yesterday. - Hypokalemic today. Replenished PO and IV today. - Continue to trend electrolytes. Cardiovascular: - Consult: Dr. Fitzgerald / Dr. Hogan - Goal MAP >65. Continue holding antihypertensives as needed. - Off vasoactive agents overnight. Became hypotensive and dropped MAP during the afternoon. Levophed drip restarted. - Continue Hydrocortisone and Fludicortisone for shock. Plan to wean after pt has been stable off pressors for 24 hours. - LV Diastolic/Systolic Dysfunction - Per Dr. Fitzgerald, resume Clopidogrel (Plavix). - Hemoglobin goal >8.0. Below goal today. Will transfuse with one unit PRBC. Pulm / Resp: - Acute on Chronic Hypoxic and Hypercapneic Respiratory Failure likely secondary to pneumonia. Trach placed. - Continue albuterol PRN. - SPO2 goal 90%. Taper FiO2 and PEEP as able. - pH goal 7.2, allowing for permissive hypercapnia. Gastrointestinal: - Mild diarrhea noted in rectal tube. Possibly secondary to tube feeds. Will change after dietary consult. Infectious Disease: - Consult Dr. Khan - h/o HIV: continue HAART Therapy per ID - Leukocytosis stable with tachycardia but without fever overnight. Possibly secondary to systemic steroids. - Meropenem completed yesterday. Continue Nafcillin for MSSA in single blood culture per ID service. Integumentary: - Decubitus ulcer. Continue Zinc and Nystatin. FEN: -Tube Feed per dietary. Family declined PEG insertion. GI requested abdominal u/ s to evaluate for ascites, which would be a contraindication for PEG placement. Prophylaxis: -DVT: Heparin SQ. -GI: Ranitidine. Code Status: - DNR Family Conversation: - Family meeting via telephone with Netta kyle Tellez. Stated they were not ready to make alf decisions at this time. Will try and bring the family together this weekend. Consented for the dialysis catheter insertion and dialysis as needed. Again stated they were not ready to make decisions about PEG placement. - Next family conversation scheduled for at 15:30. Dispo: Continue to monitor in the ICU as pts hemodynamics remain tenuous. Procedures: - Obtained consent for trialysis catheter insertion. Plan to place tomorrow. Andrez Tolentino MD, PGY1 ICU Consult Service Visit type - Emergency Visit Emergency Visit: No - New Patient This patient is new to me today: No - Critical Care Critical Care patient: Yes Total Critical Care Time (in minutes): 55 Critical Care Statement: The care of this patient involved high complexity decision making to prevent further life threatening deterioration of the patient 's condition and/or to evaluate & treat vital organ system(s) failure or risk of failure.
[2018-09-06] MEDS ORDERED: ALBUMIN HUMAN 25% 100 ML VIAL IVPB SCH (16:00)
[2018-09-06] MEDS ORDERED: ARTIFICIAL TEARS (POLYVINYL ALCOHOL) OPTH DROPS OU PRN (16:03)
[2018-09-06] MEDS ORDERED: NOREPINEPHRINE BITARTRATE 4,000 MCG in DEXTROSE 5%-WATER - 496 ML IV SCH (16:15)
[2018-09-06] MEDS ORDERED: ATROPINE SULFATE 1 MG/10 ML DISP.SYRIN ONE (16:53)
[2018-09-06] MEDS ORDERED: ATROPINE SO4 0.4 MG/1 ML VIAL IVPUSH ONE (17:07)
[2018-09-06 17:09] VITALS: BP 70/43; PULSE 80; TEMP 98.2
--- NOTE | 2018-09-06 17:20 | PN ---
Physical Exam: Pt became bradycardic to the low 30s. Atropine was administered IV. Heart rate transiently trended upward in an accelerated junctional rhythm before returning to an agonal rhythm. Pt's daughter Netta was called to the bedside. Shortly thereafter, asystole was confirmed in EKG leads II and V. No palpabale pulse was identified. No audible heart tones auscultated. Pupils found to be fixed and dilated. Ventilator was disconnected and no spontaneous breathing was observed. Time of was called at 17:18. ICU Attending Dr. Huerta and Admitting Attending Dr. Kirk were notified via telephone. Pt's daughter Rosalinda was called to the bedside by Sylvia Vides. Awaiting her arrival. RN notified [facility] Visit type - Emergency Visit Emergency Visit: No - New Patient This patient is new to me today: No - Critical Care Critical Care patient: No
--- NOTE | 2018-09-07 18:25 | DS ---
Physical Examination Vital Signs: Vital Signs Temperature 98.2 F 09/06/18 16:00 Pulse Rate 80 09/06/18 16:00 Respiratory Rate 31 H 09/06/18 16:00 Blood Pressure 70/43 L 09/06/18 16:00 O2 Sat by Pulse Oximetry (%) 97 09/05/18 22:00 Labs: CBC, BMP 09/06/18 05:30 09/06/18 05:30 Discharge Summary Reason For Visit: ELEVATED TROPONIN I LEVEL,CHRONIC OBSTRUCTIVE Condition: Stable - Instructions Disposition: - Home Medications Comprehensive Discharge Medication List: Ambulatory Orders Gabapentin [Neurontin -] 800 mg PO Q8H 04/04/18 Albuterol 0.083% Nebulizer Sun [Ventolin 0.083% Nebulizer Soln -] 1 amp NEB Q4H PRN #7 amp 04/11/18 Carvedilol [Coreg -] 12.5 mg PO BID #60 tablet 04/11/18 Losartan Potassium [Cozaar -] 50 mg PO BID #30 tablet 04/11/18 Naloxone HCl [Narcan] 4 mg NS ONCE PRN #1 spray 05/24/18 Acetaminophen 2 tab PO DAILY PRN #60 tablet 06/01/18 Ergocalciferol (Vitamin D2) [Vitamin D2] 50,000 unit PO Q7D #4 capsule 06/01/18 Cholecalciferol (Vitamin D3) [Vitamin D3] 2,000 unit PO DAILY 06/03/18 Fosamax 70 mg PO WEEKLY 06/03/18 Sodium Chloride [Saline Nose Amalia] 1 - 2 sprays NS PRN #1 spray 06/03/18 Abacavir/Dolutegravir/Lamivudi [Triumeq 600-50-300 mg Tablet] 1 each PO DAILY # 30 tablet 06/08/18 Albuterol Sulfate Inhaler - [Ventolin HFA Inhaler -] 1 - 2 inh PO Q6H PRN #1 inhaler 06/08/18 Aspirin Coated [Ecotrin -] 81 mg PO DAILY #30 tablet.ec 06/08/18 Calcium Carbonate/Vitamin D3 [Calcium 500-Vit D3 200 Caplet] 1 tab PO DAILY #30 tablet 06/08/18 Clopidogrel Bisulfate [Plavix] 75 mg PO DAILY #30 tablet 06/08/18 Diphenhydramine [Benadryl Capsule -] 50 mg PO HS #30 capsule 06/08/18 Escitalopram Oxalate [Lexapro -] 10 mg PO DAILY #30 tablet 06/08/18 Ferrous Sulfate [Feosol] 325 mg PO BID #60 tablet 06/08/18 Fluticasone/Salmeterol [Advair Hfa 230-21 Mcg Inhaler] 2 puff IH BID #1 hfa.aer.ad 06/08/18 Multivitamin [One-Daily Multi-Vitamin] 1 each PO DAILY #30 tablet 06/08/18 Nicotine [Nicotrol Ns] 1 dose IH DAILY PRN #1 spray 06/08/18 Pantoprazole Sodium [Protonix -] 20 mg PO DAILY #30 tablet.ec 06/08/18 Ranolazine [Ranexa -] 500 mg PO BID #60 tab 06/08/18 Simvastatin 10 mg PO DAILY #30 tablet 06/08/18 hydrALAZINE HCL [Apresoline -] 50 mg PO TID #90 tablet 06/08/18 Morphine *Sr* [MS Contin -] 30 mg PO Q8H #90 tablet.er MDD 3 06/14/18 Furosemide [Lasix -] 40 mg PO DAILY #30 tablet 07/08/18 Spironolactone [Aldactone -] 25 mg PO DAILY #30 tablet 07/08/18 CERTIFICATE COMPLETED
== END 2018-09-06 21:41 | disposition expired | DRG 4 ==
LOC: JER 17:08 → UNDOADMIN 21:00 → JERBED 21:00 → JICU 08-09 06:12
PROVIDERS: ADMIT Internal Medicine; ATTEND Internal Medicine
PROC: 5A1955Z Respiratory Ventilation, Greater than 96 Consecutive Hours (ICD-10-PCS; 2018-08-10)
PROC: 0BH17EZ Insertion of Endotracheal Airway into Trachea, Via Natural or Artificial Opening (ICD-10-PCS; 2018-08-10)
PROC: 5A1D70Z Performance of Urinary Filtration, Intermittent, Less than 6 Hours Per Day (ICD-10-PCS; 2018-08-19)
PROC: 02HV33Z Insertion of Infusion Device into Superior Vena Cava, Percutaneous Approach (ICD-10-PCS; 2018-08-23)
PROC: B548ZZA Ultrasonography of Superior Vena Cava, Guidance (ICD-10-PCS; 2018-08-23)
PROC: 30233N1 Transfusion of Nonautologous Red Blood Cells into Peripheral Vein, Percutaneous Approach (ICD-10-PCS; 2018-08-28)
PROC: 06HM33Z Insertion of Infusion Device into Right Femoral Vein, Percutaneous Approach (ICD-10-PCS; 2018-08-30)
PROC: B54BZZA Ultrasonography of Right Lower Extremity Veins, Guidance (ICD-10-PCS; 2018-08-30)
PROC: 05HM33Z Insertion of Infusion Device into Right Internal Jugular Vein, Percutaneous Approach (ICD-10-PCS; 2018-09-01)
PROC: B543ZZA Ultrasonography of Right Jugular Veins, Guidance (ICD-10-PCS; 2018-09-01)
PROC: 0BJ08ZZ Inspection of Tracheobronchial Tree, Via Natural or Artificial Opening Endoscopic (ICD-10-PCS; 2018-09-02)
PROC: 02HV33Z Insertion of Infusion Device into Superior Vena Cava, Percutaneous Approach (ICD-10-PCS; 2018-09-02)
PROC: B548ZZA Ultrasonography of Superior Vena Cava, Guidance (ICD-10-PCS; 2018-09-02)
PROC: 0B113F4 Bypass Trachea to Cutaneous with Tracheostomy Device, Percutaneous Approach (ICD-10-PCS; principal; 2018-09-02 11:30)
DX: J96.22 Acute and chronic respiratory failure with hypercapnia (principal); I50.33 Acute on chronic diastolic (congestive) heart failure; G92 Toxic encephalopathy; J18.9 Pneumonia, unspecified organism; A41.01 Sepsis due to Methicillin susceptible Staphylococcus aureus; R65.21 Severe sepsis with septic shock; E87.2 Acidosis; J44.1 Chronic obstructive pulmonary disease with (acute) exacerbation; N17.9 Acute kidney failure, unspecified; E87.1 Hypo-osmolality and hyponatremia; R64 Cachexia; I24.8 Other forms of acute ischemic heart disease; J96.21 Acute and chronic respiratory failure with hypoxia; I25.10 Atherosclerotic heart disease of native coronary artery without angina pectoris; Z95.1 Presence of aortocoronary bypass graft; I11.0 Hypertensive heart disease with heart failure; B19.20 Unspecified viral hepatitis C without hepatic coma; I36.1 Nonrheumatic tricuspid (valve) insufficiency; E87.5 Hyperkalemia; I27.20 Pulmonary hypertension, unspecified; Z21 Asymptomatic human immunodeficiency virus [HIV] infection status; R19.7 Diarrhea, unspecified; F32.9 Major depressive disorder, single episode, unspecified; M81.0 Age-related osteoporosis without current pathological fracture; E87.8 Other disorders of electrolyte and fluid balance, not elsewhere classified; I27.81 Cor pulmonale (chronic); Z85.41 Personal history of malignant neoplasm of cervix uteri; K80.20 Calculus of gallbladder without cholecystitis without obstruction; E86.0 Dehydration; Y95 Nosocomial condition; D64.9 Anemia, unspecified; Z66 Do not resuscitate; L89.150 Pressure ulcer of sacral region, unstageable; L89.42 Pressure ulcer of contiguous site of back, buttock and hip, stage 2; E87.6 Hypokalemia
CPT/HCPCS: 31500; 36415; 36430; 36600; 70450-TC; 71045-TC-FY; 74176-TC; 76775-TC; 80048; 80053; 80061; 80076; 80307; 81003; 82140; 82272; 82375; 82436; 82550; 82553; 82565; 82570; 82803; 82962; 83050; 83605; 83690; 83721; 83735; 83880; 83935; 84100; 84133; 84300; 84484; 84540; 85025; 85027; 85610; 85730; 86359; 86360; 86704; 86706; 86708; 86803; 86850; 86900; 86901; 86922; 87040; 87045; 87046; 87070; 87077; 87086; 87177; 87186; 87205; 87209; 87324; 87340; 87449; 87804; 93005; 93010; 94002; 94640; 94660; 99284-25; J0131; J1644; J7030; P9038; P9047; P9058